=== PATIENT | male | born 1965 | race African-American/Black ===

== ENCOUNTER 2021-02-21 18:02 | Emergency (ER) | payer BC, SELFPAY ==
[2021-02-21 20:37] LABS: Absolute Lymphocytes (CBC) 1.2 K/uL (0.7-4.9); Basophils % 0.8 % (0-1.3); Hematocrit 32.7 % (39.6-49.0); MPV 7.7 fL (7.6-11.3); RBC Red Blood Cell Count 4.61 M/uL (4.33-5.43)
[2021-02-21 21:01] LABS: Albumin 3.2 g/dL (3.4-5.0); Bilirubin Direct 0.1 mg/dL (0-0.2); Bilirubin Total 0.4 mg/dL (0.2-1.0); Potassium 3.8 mmol/L (3.5-5.1); Protein, Total 7.7 g/dL (6.4-8.2)
--- NOTE | 2021-02-21 22:47 | EDPHYS ---
Physician Documentation [facility] Name: Edwin Young Age: 55 yrs Sex: Male : 1965 Arrival Date: 02/21/2021 Time: 18:20 Bed 23 Private MD: ED Physician Rogelio Messina HPI: 02/22 06:27 This 55 yrs old Black Male presents to ER via Ambulatory with complaints of Diarrhea, tw4 Bloody Stools. 06:27 The patient presents to the emergency department with diarrhea, abdominal pain. Onset: tw4 The symptoms/episode began/occurred 2 week(s) ago. Possible causes: unknown. The symptoms are aggravated by nothing. The symptoms are alleviated by nothing. Severity of symptoms: At their worst the symptoms were moderate in the emergency department the symptoms have improved. The patient has not experienced similar symptoms in the past. Historical: - Allergies: 02/21 18:56 No Known Allergies; bp - Home Meds: 18:56 Lasix Oral [Active]; Allopurinol Oral [Active]; carvedilol oral oral [Active]; bp - PMHx: 18:56 Hypertension; Gout; bp - Immunization history:: Adult Immunizations up to date. - Social history:: Smoking status: Patient denies any tobacco usage or history of. ROS: 02/22 06:27 Constitutional: Negative for fever, chills, and weight loss, Eyes: Negative for injury, tw4 pain, redness, and discharge, Cardiovascular: Negative for chest pain, palpitations, and edema, Respiratory: Negative for shortness of breath, cough, wheezing, and pleuritic chest pain, Abdomen/GI: Negative for abdominal pain, nausea, vomiting, diarrhea, and constipation, Back: Negative for injury and pain, MS/Extremity: Negative for injury and deformity, Skin: Negative for injury, rash, and discoloration, Neuro: Negative for headache, weakness, numbness, tingling, and seizure. Exam: 06:27 Constitutional: This is a well developed, well nourished patient who is awake, alert, tw4 and in no acute distress. Head/Face: Normocephalic, atraumatic. Chest/axilla: Normal chest wall appearance and motion. Nontender with no deformity. No lesions are appreciated. Cardiovascular: Regular rate and rhythm with a normal S1 and S2. No gallops, murmurs, or rubs. Normal PMI, no JVD. No pulse deficits. Respiratory: Lungs have equal breath sounds bilaterally, clear to auscultation and percussion. No rales, rhonchi or wheezes noted. No increased work of breathing, no retractions or nasal flaring. Abdomen/GI: Soft, non-tender, with normal bowel sounds. No distension or tympany. No guarding or rebound. No evidence of tenderness throughout. Back: No spinal tenderness. No costovertebral tenderness. Full range of motion. MS/ Extremity: Pulses equal, no cyanosis. Neurovascular intact. Full, normal range of motion. Neuro: Awake and alert, GCS 15, oriented to person, place, time, and situation. Cranial nerves II-XII grossly intact. Motor strength 5/5 in all extremities. Sensory grossly intact. Cerebellar exam normal. Normal gait. Vital Signs: 02/21 18:54 BP 147 / 94; Pulse 79; Resp 17; Temp 96.9; Pulse Ox 97% ; Weight 113.4 kg; Height 6 ft. bp 2 in. (187.96 cm); 20:43 BP 148 / 98; Pulse 90; Resp 16 S; Pulse Ox 97% ; bb 23:21 BP 161 / 109; Pulse 95; Resp 16 S; Pulse Ox 98% ; bb 18:54 Body Mass Index 32.10 (113.40 kg, 187.96 cm) bp MDM: 22:46 Patient medically screened. tw4 02/22 06:27 Differential diagnosis: Nonspecific abd pain, gastritis, cholecystitis. Data reviewed: tw4 vital signs, nurses notes. Data interpreted: Pulse oximetry: Interpretation: normal. Counseling: I had a detailed discussion with the patient and/or guardian regarding: the historical points, exam findings, and any diagnostic results supporting the discharge/admit diagnosis. Special discussion: I discussed with the patient/guardian in detail that at this point there is no indication for admission to the hospital. It is understood, however, that if the symptoms persist or worsen the patient needs to return immediately for re-evaluation. 02/21 20:07 Order name: Basic Metabolic Panel; Complete Time: 21:27 tw4 02/21 21:27 Interpretation: Normal except: GLUC 107; CRE 1.54; GFR 57. tw4 02/21 20:07 Order name: CBC with Diff; Complete Time: 21:27 tw4 02/21 21:28 Interpretation: Normal except: HGB 10.3; HCT 32.7; MCV 71.0; MCH 22.4; MCHC 31.5; PLT tw4 426; RDW 17.1. 02/21 20:07 Order name: Hepatic Function; Complete Time: 21:27 4 02/21 21:28 Interpretation: Normal except: ALB 3.2; A/G 0.7; GLOB 4.5. 02/21 20:07 Order name: Lipase; Complete Time: 21:27 4 02/21 21:28 Interpretation: Normal except: LIP 65. 02/21 20:07 Order name: IV Saline Lock; Complete Time: 20:25 4 02/21 21:28 Order name: Abdomen 1 View XRAY 02/21 20:07 Order name: Labs collected and sent; Complete Time: 20:25 tw4 Administered Medications: No medications were administered Disposition: 02/21/21 22:46 Discharged to Home. Impression: Constipation, unspecified, Abdominal tenderness. - Condition is Stable. - Discharge Instructions: Constipation, Adult, Abdominal Pain, Adult, [id number]-Bucb. - Prescriptions for Bentyl 20 mg Oral Tablet - take 1 tablet by ORAL route every 6 hours As needed; 20 tablet. Colace 100 mg Oral Tablet - take 1 tablet by ORAL route every 12 hours; 14 tablet. Miralax 17 gram/dose Oral - take 1 packet by ORAL route once daily dilute powder in 8 ounces of water or juice; 1 packet. - Medication Reconciliation Form, Thank You Letter, Antibiotic Education, Prescription Opioid Use form. - Follow up: Private Physician; When: Upon discharge from the Emergency Department; Reason: Recheck today's complaints, Continuance of care, Re-evaluation by your physician. - Problem is new. - Symptoms have improved. Signatures: Dispatcher [employer] EDKayleigh Carlos RN RN Henry Williamson RN RN Rogelio Ward MD MD tw4 Corrections: (The following items were deleted from the chart) 02/21 22:47 22:46 02/21/2021 22:46 Discharged to Home. Impression: Constipation, unspecified. tw4 Condition is Stable. Forms are Medication Reconciliation Form, Thank You Letter, Antibiotic Education, Prescription Opioid Use. Follow up: Private Physician; When: Upon discharge from the Emergency Department; Reason: Recheck today's complaints, Continuance of care, Re-evaluation by your physician. Problem is new. Symptoms have improved. tw4 23:21 22:47 02/21/2021 22:46 Discharged to Home. Impression: Constipation, unspecified; bb Abdominal tenderness. Condition is Stable. Discharge Instructions: Constipation, Adult. Prescriptions for Bentyl 20 mg Oral Tablet - take 1 tablet by ORAL route every 6 hours As needed; 20 tablet, Colace 100 mg Oral Tablet - take 1 tablet by ORAL route every 12 hours; 14 tablet, Miralax 17 gram/dose Oral - take 1 packet by ORAL route once daily dilute powder in 8 ounces of water or juice; 1 packet. and Forms are Medication Reconciliation Form, Thank You Letter, Antibiotic Education, Prescription Opioid Use. Follow up: Private Physician; When: Upon discharge from the Emergency Department; Reason: Recheck today's complaints, Continuance of care, Re-evaluation by your physician. Problem is new. Symptoms have improved. tw4
--- NOTE | 2021-02-21 22:47 | ER ---
Nurse's Notes [facility] Name: Edwin Young Age: 55 yrs Sex: Male : 1965 Arrival Date: 02/21/2021 Time: 18:20 Bed 23 Private MD: Diagnosis: Constipation, unspecified;Abdominal tenderness Presentation: 02/21 18:54 Chief complaint: Patient states: 3 WEEKS CONSTIPATION AND DIARRHEA, NOW WITH RECTAL bp BLEEDING. Coronavirus screen: At this time, the client does not indicate any symptoms associated with coronavirus-19. Ebola Screen: No symptoms or risks identified at this time. Initial Sepsis Screen: Does the patient meet any 2 criteria? No. Patient's initial sepsis screen is negative. Does the patient have a suspected source of infection? No. Patient's initial sepsis screen is negative. Risk Assessment: Do you want to hurt yourself or someone else? Patient reports no desire to harm self or others. Onset of symptoms is unknown. 18:54 Method Of Arrival: Ambulatory bp 18:54 Acuity: JASWINDER 3 bp Triage Assessment: 18:56 General: Appears in no apparent distress. uncomfortable, Behavior is calm, cooperative, bp appropriate for age. Pain: Denies pain. EENT: No deficits noted. Neuro: No deficits noted. Cardiovascular: No deficits noted. Respiratory: No deficits noted. GI: Reports constipation, diarrhea, bloody stool. : No signs and/or symptoms were reported regarding the genitourinary system. Derm: No deficits noted. Musculoskeletal: No deficits noted. Historical: - Allergies: 18:56 No Known Allergies; bp - Home Meds: 18:56 Lasix Oral [Active]; Allopurinol Oral [Active]; carvedilol oral oral [Active]; bp - PMHx: 18:56 Hypertension; Gout; bp - Immunization history:: Adult Immunizations up to date. - Social history:: Smoking status: Patient denies any tobacco usage or history of. Screenin:40 Abuse screen: Denies threats or abuse. Nutritional screening: No deficits noted. bb Tuberculosis screening: No symptoms or risk factors identified. Fall Risk None identified. Assessment: 19:40 General: Appears in no apparent distress. Behavior is calm, cooperative. Neuro: Level bb of Consciousness is awake, alert, obeys commands, Oriented to person, place, time, situation. Cardiovascular: Heart tones S1 S2 present Capillary refill < 3 seconds Patient's skin is warm and dry. Respiratory: Respiratory effort is even, unlabored, Respiratory pattern is regular. GI: Abdomen is round Bowel sounds present X 4 quads. Abd is soft and non tender X 4 quads. Reports rectal bleeding. Derm: Skin is dry, Skin is normal, Skin temperature is warm. Musculoskeletal: Circulation, motion, and sensation intact. 20:43 Reassessment: Patient is alert, oriented x 3, equal unlabored respirations, skin bb warm/dry/pink. awaiting diagnostic results. 21:48 Reassessment: Patient is alert, oriented x 3, equal unlabored respirations, skin bb warm/dry/pink. pt resting quietly, IV site intact, no erythema or edema noted. 23:19 Reassessment: Patient is alert, oriented x 3, equal unlabored respirations, skin bb warm/dry/pink. pt verbalized understanding of and agrees to plan of care discharge instructions given pt ambulated with steady gait to exit pt has appt with Dr Garnica March 03. Vital Signs: 18:54 BP 147 / 94; Pulse 79; Resp 17; Temp 96.9; Pulse Ox 97% ; Weight 113.4 kg; Height 6 ft. bp 2 in. (187.96 cm); 20:43 BP 148 / 98; Pulse 90; Resp 16 S; Pulse Ox 97% ; bb 23:21 BP 161 / 109; Pulse 95; Resp 16 S; Pulse Ox 98% ; bb 18:54 Body Mass Index 32.10 (113.40 kg, 187.96 cm) bp ED Course: 18:20 Patient arrived in ED. ds1 18:55 Triage completed. bp 18:56 Arm band placed on. bp 19:32 Rogelio Messina MD is Attending Physician. tw4 19:40 Patient has correct armband on for positive identification. Call light in reach. Adult bb w/ patient. 20:10 Kayleigh Bautista, RN is Primary Nurse. bb 20:15 Initial lab(s) drawn, by me, sent to lab. Inserted saline lock: 20 gauge in right bb antecubital area, using aseptic technique. Blood collected. 22:17 Abdomen 1 View XRAY In Process Unspecified. EDMS 23:20 No provider procedures requiring assistance completed. IV discontinued, intact, bb bleeding controlled, No redness/swelling at site. Pressure dressing applied. Administered Medications: No medications were administered Outcome: 22:46 Discharge ordered by . [email or web address] 23:20 Discharged to home ambulatory. alvin 23:20 Condition: stable 23:20 Discharge instructions given to patient, Instructed on discharge instructions, follow up and referral plans. medication usage, Demonstrated understanding of instructions, follow-up care, medications, Prescriptions given X 3. 23:21 Patient left the ED. alvin Signatures: Dispatcher [employer] [facility] Amanda Toledo ds1 Kayleigh Bautista, RN RN Henry Williamson, RN RN Rogelio Ward MD MD tw4 Corrections: (The following items were deleted from the chart) 20:43 19:40 GI: Abdomen is round Reports rectal bleeding, alvin esquivel
[2021-02-21 23:27] VITALS: TEMP 96.9; O2SAT 97
[2021-02-21 23:29] VITALS: BP 148/98
--- NOTE | 2021-02-22 07:43 | RAD REPORT ---
EXAM DESCRIPTION: RAD - Abdomen Single View - 02/21/2021 10:23 pm CLINICAL HISTORY: ABD PAIN COMPARISON: ABDOMINAL EXAM COMPLETE dated 04/05/2013 FINDINGS: Large amount of stool is present filling the colon from cecum to proximal sigmoid colon. N o abnormal rectal stool volume. No small bowel dilatation. No obstruction, free air or pneumatosis. N o suspicious calcifications. No significant bony findings IMPRESSION: Constipation pattern with a large amount of stool filling the colon from cecum to proxim al sigmoid colon.
== END 2021-02-21 23:21 | disposition home or self-care (01) ==
LOC: ER 18:02
DX: K59.00 Constipation, unspecified (principal); I10 Essential (primary) hypertension
CPT/HCPCS: 36415; 74018; 80048; 80076; 83690; 85025; 99284

== ENCOUNTER 2021-05-28 07:29 | Day surgery (SDC) | payer BC ==
[2021-05-28] MEDS ORDERED: NA CHLORIDE 0.9% 250 ML ONE (08:21)
[2021-05-28] MEDS ORDERED: FUROSEMIDE 40 MG/4 ML VIAL ONE (11:35)
[2021-05-28] MEDS ORDERED: NA CHLORIDE 0.9% 50 ML ONE (11:35)
[2021-05-28 16:57] LABS: Hematocrit 29.8 % (39.6-49.0)
[2021-05-28 17:06] VITALS: TEMP 98; BMI 28.2
[2021-05-28 17:41] VITALS: BP 106/60; O2SAT 99
== END 2021-05-28 17:42 | disposition home or self-care (01) ==
LOC: DS 07:29
PROVIDERS: ATTEND Internal Medicine Gastroenterology
DX: D64.9 Anemia, unspecified (principal); C20 Malignant neoplasm of rectum; K92.1 Melena
CPT/HCPCS: 36415; 86900; 86850; 82565; 86901; 85018; 85014; 36430; J1940; P9016 ×2; J7050

== ENCOUNTER 2021-10-19 14:08 | Inpatient (IN) | payer BC, OTHER, SELFPAY ==
--- OUTSIDE RECORDS SUMMARY | 2021-10-19 14:13 | XMS REPORT | Continuity of Care Document ---
:1965 Author Organization [facility] t Address [address] [place] [address] Care Team Providers Name Role Phone Calderon, L Attending Clinician Unavailable JONATHON Attending Clinician Unavailable LAILA Attending Clinician Unavailable MD NOE Attending Clinician Unavailable LORETO Attending Clinician Unavailable MD LIBERTAD TAN Attending Clinician Unavailable NADYA Attending Clinician Unavailable MARIKA Admitting Clinician Unavailable BIBIANA Admitting Clinician Unavailable NOE Admitting Clinician Unavailable MD NOE Admitting Clinician Unavailable LORETO Admitting Clinician Unavailable MD LORETO Admitting Clinician Unavailable Payers Payer Name Policy Type Policy Number Effective Date Expiration Date S ource Problems This patient has no known problems. Allergies, Adverse Reactions, Alerts Allergy Allergy Status Severity Reaction(s) Onset Inactive Treating Comm ents Source Name Type Date Date Clinician No Known DA Active U 2020-10 [facility] Allergie 11-08 [facility] 00:00: [address] NO KNOWN Drug Active [facility] ALLERGIE Class ity of [facility] Medications This patient has no known medications. Procedures This patient has no known procedures. Encounters Start End Encounter Admission Attending Care Care Encounter Source Date/Time Date/Time Type Type Clinicians Facility Department ID 2021-09-20 Inpatient EL Tarsha Mancera [facility] RTX [id number] [facility] 15:[id number] [facility] 2021-09-20 Inpatient EL Tarsha Mancera [facility] [id number] [facility] 15:[facility]:[address] [facility] 2021-09-15 Inpatient EL Tarsha Mancera [facility] RTX [id number] [facility]:00 [facility] 2021-10-18 2021-10-18 Outpatient EL Oh, Tarsha [facility] RTX [id number] [facility] 11:23:00 11:23:[id number] [facility] 2021-09-02 2021-09-14 Outpatient EL Oh, Tarsha [facility] RTX [id number] 11-04 [facility] 10:13:00 00:00:[id number] [facility] 2021-09-08 2021-09-08 Outpatient EL Oh, Tarsha [facility] [id number] [facility] 08:46:00 08:46:[address] [facility] 2021-09-08 2021-09-08 Outpatient EL Oh, Tarsha [facility] SUGL [id number] 11-04 [facility] 08:46:00 08:46:[id number] [facility] 2021-09-02 2021-09-02 Outpatient EL Oh, Tarsha [facility] [id number] [facility] 10:13:00 10:13:[address] [facility] 2021-08-06 2021-08-06 Outpatient DERRICK HOLT [facility] [id number] [place] 00:00:00 00:00:00 [facility] 2021-08-04 2021-08-04 Outpatient DERRICK HOLT [facility] [id number] [place] 00:00:00 00:00:[address] 2021-08-01 2021-08-03 Outpatient SUNSHINENELL, [facility] [id number] [place] 00:00:00 00:00:00 JENNY [address] 2021-07-23 2021-07-23 Outpatient DERRICK HOLT [facility] [id number] [place] 00:00:00 00:00:[address] 2021-07-23 2021-07-23 Outpatient DERRICK HOLT [facility] [id number] [place] 00:00:00 00:00:[address] 2021-07-21 2021-07-21 Outpatient DERRICK HOLT [facility] [id number] [place] 00:00:00 00:00:[address] 2021-07-21 2021-07-21 Outpatient DERRICK HOLT [facility] [id number] [place] 00:00:00 00:00:00 [facility] [facility] 2021-06-28 2021-07-06 Inpatient NIKA DANGELO [facility] [id number] [place] 00:00:00 00:00:00 942 [facility] 2021-06-02 2021-06-02 Outpatient JONATHAN COVINGTON [facility] [id number] [place] 00:00:00 00:00:00 065 [facility] 2021-04-26 2021-04-26 Emergency X [facility] ERT [id number] [facility] 16:39:00 16:39:00 [facility] Results Test Description Test Time Test Comments Results Result [facility] e Comments - PET/CT TUMOR 2021-09-10 MIDTH 13:41:00 [facility] : 1965 Sex: M Patient Name: GENO PRASAD Unit No: [id number] EXAMS: CPT CODE: [id number] PET/CT TUMOR [facility] MIDTH [id number] EXAM: PET/CT scan INDICATION: MALIGNANT NEOPLASM OF RECTUM COMPARISON: None at this time LOCATION: [facility] TECHNIQUE: Approximately 60 minutes following the intravenous administration of 11.49 mCi F-18 FDG, a PET scan was obtained from the skull vertex to the mid thigh. Axial noncontrast nondiagnostic CT images were also obtained for anatomic localization. Glucose level at radiotracer administration was 86 mg/dL. FINDINGS: There is a focal area of bowel wall thickening involving the rectum, demonstrating hypermetabolic activity. This measures about 3.5 cm in diameter. The maximum SUV is 6.5. There is increased tracer activity involving the right aspect of the L5 vertebra. The maximum SUV is 2.2. There are degenerative changes in this region on the corresponding CT scan. There are small right axillary lymph nodes, all measuring less than a centimeter in diameter, which demonstrate minimal hypermetabolic activity. The maximum SUV is 1.4. There is diffuse increased tracer activity involving the soft tissues adjacent to the right humeral head, consistent with benign musculoskeletal activity. No other areas of abnormal hypermetabolic activity are identified. No lymphadenopathy by size criteria is identified. The heart, kidneys, renal collecting systems and bladder demonstrate normal distribution of tracer activity. Impression: There is a focal area of bowel wall thickening involving the rectum, demonstrating hypermetabolic activity, with a maximum SUV of 6.5. This measures about 3.5 cm in diameter. This finding is consistent with the given history of malignant neoplasm of rectum. There is increased tracer activity involving the right aspect of the L5 vertebra, with a maximum SUV of 2.2. There are degenerative changes in this region on the corresponding CT scan. This appears to be most likely secondary to degenerative changes, with metastatic disease appearing less likely. Follow-up MRI of the lumbar spine without and with contrast is recommended. [facility] NAME: GENO PRASAD [address] [address] PHYS: [place] [address] : 1965 AGE: 56 SEX: M LOC: DayronZNUC PHONE #: [phone] EXAM DATE: 09/08/2021 STATUS: DEP CLI FAX #: [phone] RADIOLOGY NO: PAGE 1 Signed Report (CONTINUED) Patient Name: GENO PRASAD Unit No: [id number] EXAMS: CPT CODE: [id number] PET/CT TUMOR SK MIDTH 17085 <Continued> There are small lymph nodes in the right axilla, measuring less than a centimeter in mean diameter each, demonstrating minimal hypermetabolic activity, with a maximum SUV of 1.4. These appear to most likely represent benign reactive lymph nodes. Otherwise unremarkable PET/CT scan. at 1341 Reported and signed by: Beau Marr MD CC: Tarsha Mancera MD Technologist: Linnea Vasquez RT(N) Transcrpt Date/Tm/Trnsp: 09/10/2021 (1341) t.SDR.PMT Orig Print D/T: S: 09/10/2021 (8550) [facility] NAME: GENO PRASAD [id number] [facility] [address] PHYS: [place] [address] : 1965 AGE: 56 SEX: M LOC: [facility] PHONE #: [phone] EXAM DATE: 09/08/2021 STATUS: DEP CLI FAX #: [phone] RADIOLOGY NO: PAGE 2 Signed Report GLUCOSE 2021-09-08 09:44:00 Test Item Value Reference Range Interpretation Comme nts GLUCOSE (test code = GLU) 86 MG/DL 79-105 N SARS-CoV-2 (COVID-19) RNA [Presence] in Respiratory specimen by YVROSE with probe [id number] 18:54:41 Test Item Value Reference Range Interpretation Comments SARS-CoV-2 (COVID-19) RNA Not detected Not-Detected [Presence] in Respiratory specimen by YVROSE with probe detection (test code = 77462-4) Whether patient is employed in a healthcare setting (test code = 86725-2) Whether the patient has symptoms related to condition of interest (test code = 97999-4) Patient was hospitalized because of this condition (test code = 70478-5) Whether the patient was admitted to intensive care unit (ICU) for condition of interest (test code = 70684-5) Whether patient resides in a congregate care setting (test code = 61674-4) status (test code = 92421-4) SARS-CoV-2 (COVID-19) RNA [Presence] in Respiratory specimen by YVROSE with probe [id number] 16:30:19 Test Item Value Reference Range Interpretation Comments SARS-CoV-2 (COVID-19) RNA Not detected Not-Detected [Presence] in Respiratory specimen by YVROSE with probe detection (test code = 78654-3) Whether patient is employed in a healthcare setting (test code = 55031-3) Whether the patient has symptoms related to condition of interest (test code = 49569-8) Patient was hospitalized because of this condition (test code = 93353-4) Whether the patient was admitted to intensive care unit (ICU) for condition of interest (test code = 12576-6) Whether patient resides in a congregate care setting (test code = 44343-8)
[2021-10-19 15:46] LABS: Absolute Lymphocytes (CBC) 0.1 K/uL (0.7-4.9); Hematocrit 34.5 % (39.6-49.0); Lymphocytes % 2.3 % (15.3-44.8)
[2021-10-19] MEDS ORDERED: ONDANSETRON 4 MG/2 ML VIAL ONE ×2 (16:07→20:32)
[2021-10-19] MEDS ORDERED: NA CHLORIDE 0.9% 1,000 ML ONE (16:07)
[2021-10-19 16:09] LABS: Albumin 2.7 g/dL (3.4-5.0); Bilirubin Direct 0.4 mg/dL (0-0.2); Bilirubin Total 1.6 mg/dL (0.2-1.0); Protein, Total 7.6 g/dL (6.4-8.2)
[2021-10-19 16:27] LABS: SARS-COV-2 RT PCR NEGATIVE (NEGATIVE)
[2021-10-19] MEDS ORDERED: NA CHLORIDE 0.9% 100 ML ONE (16:47)
[2021-10-19] MEDS ORDERED: PIPERACIL/TAZO 3.375 GM VIAL IV ONE (16:47)
--- NOTE | 2021-10-19 16:51 | RAD REPORT ---
EXAM DESCRIPTION: CTAbdomen Pelvis W Contrast - 10/19/2021 4:26 pm CLINICAL HISTORY: chemo/radiation for colon cancer, lower abd;Abd pain COMPARISON: Abdomen Pelvis W Contrast dated 05/27/2021 TECHNIQUE: CT of the abdomen and pelvis was performed. All CT scans are performed using dose optimization technique as appropriate and may include automated exposure control or mA/KV adjustment according to patient size. FINDINGS: Lower chest: No acute abnormality. Liver: No acute abnormality or suspicious lesions. Biliary: No biliary ductal dilatation. Stomach: No significant focal abnormality. Duodenum: No significant focal abnormality. Pancreas: No significant abnormality. Spleen: No significant abnormality. Adrenal: No suspicious lesions. Kidney/ureter: No hydronephrosis. No renal calculi. Too small to characterize and/or benign appearing renal lesions are noted. Retroperitoneum: No retroperitoneal adenopathy. Vascular: No aneurysm. Bowel: Known rectal mass is again identified. The sigmoid colon is thickened. There is likely a perfo ration of the sigmoid with reactive thickening of the distal small bowel. Multiple air-fluid levels a re present.. Normal appendix. Peritoneum: Free air is present. A small though not well-defined fluid collection is present within t he ileocolic mesentery. Umbilical hernia containing fluid and free air. Bladder: Grossly unremarkable. Reproductive: No adnexal masses. Bones: No acute fracture. Other: n/a IMPRESSION: Free air present consistent with perforation of a hollow viscus. Known rectal mass again identified with the suspected site of perforation at the mid to distal sigmoid, possibly as a result of obstruction due to the constricting rectal mass. No drainable abscess at this time. Recommend consuelo gical consultation. Called ED at 1645 on 10/19/20. Awaiting return call from ED physician.
[2021-10-19] MEDS ORDERED: MORPHINE 4 MG/ML SYR ONE (17:22)
--- NOTE | 2021-10-19 17:26 | ER ---
Nurse's Notes [facility] Name: Edwin Young Age: 56 yrs Sex: Male : 1965 Arrival Date: 10/19/2021 Time: 14:12 Bed 25 Private MD: Diagnosis: Perforation of intestine (nontraumatic) Presentation: 10/19 14:32 Chief complaint: Patient states: Lower abd paiin for 4 days. + dysuria. On chemo and ll1 radiation for colon CA. Coronavirus screen: Vaccine status: Patient reports receiving the 2nd dose of the covid vaccine. Client denies travel out of the [place] in the last 14 days. At this time, the client does not indicate any symptoms associated with coronavirus-19. Ebola Screen: Patient denies travel to an Ebola-affected area in the 21 days before illness onset. Initial Sepsis Screen: Does the patient meet any 2 criteria? No. Patient's initial sepsis screen is negative. Does the patient have a suspected source of infection? Yes: Acute abdominal pain. Risk Assessment: Do you want to hurt yourself or someone else? Patient reports no desire to harm self or others. Onset of symptoms was October 16, 2021. 14:32 Method Of Arrival: Wheelchair ll1 14:32 Acuity: JASWINDER 3 ll1 Triage Assessment: 10/22 02:20 General: Appears in no apparent distress. mr2 Historical: - Allergies: 10/19 14:31 No Known Allergies; ll1 - PMHx: 14:31 Gout; Hypertension; ll1 - Immunization history:: Client reports having NOT received the Covid vaccine. - Social history:: Smoking status: Patient denies any tobacco usage or history of. - Family history:: not pertinent. - Hospitalizations: : No recent hospitalization is reported. Screenin:34 Abuse screen: Denies threats or abuse. Denies injuries from another. Nutritional ww screening: No deficits noted. Tuberculosis screening: No symptoms or risk factors identified. Fall Risk None identified. Assessment: 16:34 General: Appears in no apparent distress. comfortable, Behavior is calm, cooperative. ww Pain: Complains of pain in right lower quadrant and left lower quadrant Pain currently is 10 out of 10 on a pain scale. Noted to be guarding, Also complains of sleeplessness. Neuro: No deficits noted. Level of Consciousness is awake, alert, obeys commands, Oriented to person, place, time, situation, Appropriate for age. Cardiovascular: No deficits noted. Denies chest pain, shortness of breath. Respiratory: No deficits noted. Reports Respiratory: Airway is patent Respiratory effort is even, unlabored. GI: Bowel sounds present X 4 quads. Abdomen is tender to palpation in right lower quadrant and left lower quadrant Reports bloating, cramping, nausea, Patient currently denies vomiting. : No deficits noted. No signs and/or symptoms were reported regarding the genitourinary system. EENT: No deficits noted. No signs and/or symptoms were reported regarding the EENT system. Derm: No deficits noted. No signs and/or symptoms reported regarding the dermatologic system. Musculoskeletal: No deficits noted. No signs and/or symptoms reported regarding the musculoskeletal system. Vital Signs: 14:32 BP 96 / 63; Pulse 79; Resp 17; Temp 99.2; Pulse Ox 99% ; Weight 95.25 kg; Height 6 ft. ll1 2 in. (187.96 cm); Pain 8/10; 14:32 Body Mass Index 26.96 (95.25 kg, 187.96 cm) ll1 ED Course: 14:12 Patient arrived in ED. mr 14:31 Arm band placed on Patient placed in an exam room, on a stretcher. ll1 14:34 Triage completed. ll1 14:45 Anila Barry, RN is Primary Nurse. ww 14:50 John Crisostomo MD is Attending Physician. rn 16:26 CT Abd/Pelvis - IV Contrast Only In Process Unspecified. EDMS 16:34 Patient has correct armband on for positive identification. Bed in low position. Call ww light in reach. 16:34 No provider procedures requiring assistance completed. Inserted saline lock: 18 gauge ww in left antecubital area, using aseptic technique. Blood collected. 17:23 Jayy Fernández MD is Hospitalizing Provider. rn 17:35 Cady Delaney MD is Hospitalizing Provider. rn 10/22 02:19 Patient admitted, IV remains in place. mr2 Administered Medications: 10/19 16:40 Drug: Zofran (Ondansetron) 4 mg Route: IVP; Site: left antecubital; ww 16:40 Drug: NS 0.9% 1000 ml Route: IV; Rate: 1000 ml; Site: left antecubital; ww 17:19 Drug: Zosyn (piperacillin-tazobactam) 3.375 grams Route: IVPB; Infused Over: 60 mins; ww Site: left antecubital; 17:20 Drug: morphine 4 mg Route: IVP; Site: left antecubital; ww Outcome: 17:25 Decision to Hospitalize by Provider. rn 10/22 02:19 Admitted to ICU accompanied by nurse. mr2 Condition: stable Instructed on the need for admit, Demonstrated understanding of instructions. 02:20 Patient left the ED. mr2 Signatures: Dispatcher [employer] EDTN Brooke Green mr John Crisostomo MD MD rn Lewis, Lynsay, RN RN ll1 Devante Ashby RN RN mr2 Anila Barry RN RN ww Corrections: (The following items were deleted from the chart) 10/19 14:34 14:32 Pulse 79bpm; Resp 17bpm; Pulse Ox 99%; Temp 99.2F; 95.25 kg; Height 6 ft. 2 in.; ll1 BMI: 26.9; Pain 8/10; ll1
--- NOTE | 2021-10-19 17:26 | EDPHYS ---
Physician Documentation [facility] Name: Edwin Young Age: 56 yrs Sex: Male : 1965 Arrival Date: 10/19/2021 Time: 14:12 Bed 25 Private MD: ED Physician John Crisostomo HPI: 10/19 15:44 This 56 yrs old Black Male presents to ER via Wheelchair with complaints of Abdominal rn Pain. 15:44 The patient presents with abdominal pain in the lower abdomen. Onset: The rn symptoms/episode began/occurred 4 day(s) ago. The symptoms do not radiate. Associated signs and symptoms: Pertinent positives: diarrhea, dysuria, Pertinent negatives: fever. The symptoms are described as sharp, stabbing. Modifying factors: The symptoms are alleviated by nothing, the symptoms are aggravated by movement, touching the area. Severity of pain: At its worst the pain was moderate in the emergency department the pain is unchanged. The patient has not experienced similar symptoms in the past. The patient has not recently seen a physician. Patient reports has colon cancer, undergoing multiple rounds of chemo and radiation, reports 4 days of lower abdominal pain around the site of radiation, also reports mild dysuria. No fever. No blood in stool.. Historical: - Allergies: 14:31 No Known Allergies; ll1 - PMHx: 14:31 Gout; Hypertension; ll1 - Immunization history:: Client reports having NOT received the Covid vaccine. - Social history:: Smoking status: Patient denies any tobacco usage or history of. - Family history:: not pertinent. - Hospitalizations: : No recent hospitalization is reported. ROS: 15:44 Constitutional: Negative for fever, chills, and weight loss, Eyes: Negative for injury, rn pain, redness, and discharge, Neck: Negative for injury, pain, and swelling, Cardiovascular: Negative for chest pain, palpitations, and edema, Respiratory: Negative for shortness of breath, cough, wheezing, and pleuritic chest pain, Abdomen/GI: Positive for abdominal pain and diarrhea, positive for nausea and vomiting Back: Negative for injury and pain, : Positive for dysuria, negative for hematuria MS/Extremity: Negative for injury and deformity, Skin: Negative for injury, rash, and discoloration, Neuro: Negative for headache, weakness, numbness, tingling, and seizure. Exam: 15:44 Constitutional: This is a well developed, well nourished patient who is awake, alert, rn and in no acute distress. Emesis bag at his side Head/Face: Normocephalic, atraumatic. Eyes: Periorbital areas with no swelling, redness, or edema. ENT: Dry mucous membranes Cardiovascular: Regular rate and rhythm. No pulse deficits. Respiratory: No increased work of breathing, no retractions or nasal flaring. Abdomen/GI: Soft, mild tenderness suprapubic/right lower quadrant/left lower quadrant. Periumbilical hernia without skin changes or focal tenderness and is partially reducible Skin: Warm, dry MS/ Extremity: Pulses equal, no cyanosis Neuro: GCS 15, 4/5 strength throughout. Vital Signs: 14:32 BP 96 / 63; Pulse 79; Resp 17; Temp 99.2; Pulse Ox 99% ; Weight 95.25 kg; Height 6 ft. ll1 2 in. (187.96 cm); Pain 8/10; 14:32 Body Mass Index 26.96 (95.25 kg, 187.96 cm) ll1 MDM: 14:50 Patient medically screened. rn 16:58 ED course: CT shows mid to distal sigmoid perforation likely related to rectal mass and rn possible obstruction. Consulted with Dr. Fernández who is going to come and evaluate patient. 17:20 Differential diagnosis: bowel obstruction, non-specific abd pain, radiation colitis, rn proctitis, bowel obstruction, perforation. Data reviewed: vital signs, nurses notes, lab test result(s), radiologic studies, CT scan, and as a result, I will admit patient. Counseling: I had a detailed discussion with the patient and/or guardian regarding: the historical points, exam findings, and any diagnostic results supporting the discharge/admit diagnosis, lab results, radiology results, the need for further work-up and treatment in the hospital. Response to treatment: the patient's symptoms have mildly improved after treatment, and as a result, I will admit patient. Admission orders: after a detailed discussion of the patient's condition and case, the admit orders are written by me. 17:36 ED course: Dr. Fernández wants patient admitted to hospitalist service, Dr. Gresham no rn longer in hospital, requests admission be given to Dr. Delaney. Will call for admission at 1800.. 18:16 ED course: Called Dr. Delaney, no answer, left message, will try again shortly.. rn 18:20 ED course: Dr. Delaney called back, accepts patient for admission.. rn 10/19 15:00 Order name: Basic Metabolic Panel; Complete Time: 16:11 rn 10/19 15:00 Order name: CBC with Diff; Complete Time: 18:11 rn 10/19 15:00 Order name: Hepatic Function; Complete Time: 16:11 rn 10/19 15:00 Order name: Lipase; Complete Time: 16:11 rn 10/19 15:00 Order name: Procalcitonin; Complete Time: 16:32 rn 10/19 15:00 Order name: Blood Culture Adult (2) rn 10/19 15:02 Order name: COVID-19/FLU A+B (Document "Date of Onset" if Symptomatic); Complete Time: rn 16:32 10/19 17:52 Order name: CBC Smear Scan; Complete Time: 18:11 EDMS 10/19 18:11 Order name: Lactate rn 10/19 18:12 Order name: Lactate; Complete Time: 07:39 EDMS 10/19 19:01 Order name: Comprehensive Metabolic Panel EDMS 10/19 19:01 Order name: Comprehensive Metabolic Panel; Complete Time: 07:39 EDMS 10/19 21:31 Order name: Glucose, Ancillary Testing; Complete Time: 07:39 EDMS 10/20 03:03 Order name: CBC with Automated Diff; Complete Time: 07:39 EDMS 10/20 03:13 Order name: Phosphorus; Complete Time: 07:39 EDMS 10/20 03:13 Order name: Magnesium; Complete Time: 07:39 EDMS 10/20 04:55 Order name: Manual Differential; Complete Time: 07:39 EDMS 10/20 08:13 Order name: Glucose, Ancillary Testing; Complete Time: 08:37 EDMS 10/20 12:47 Order name: Glucose, Ancillary Testing EDMS 10/20 21:59 Order name: Glucose, Ancillary Testing EDMS 10/21 03:29 Order name: Lactate EDMS 10/21 03:49 Order name: CBC with Automated Diff EDMS 10/21 04:48 Order name: Comprehensive Metabolic Panel EDMS 10/21 04:48 Order name: Phosphorus EDMS 10/21 04:48 Order name: Magnesium EDMS 10/21 04:48 Order name: Transferrin Sat/Iron Binding EDMS 10/21 04:48 Order name: Ferritin EDMS 10/21 04:48 Order name: Vitamin B12 Level EDMS 10/21 08:19 Order name: Glucose, Ancillary Testing EDMS 10/21 11:43 Order name: Glucose, Ancillary Testing EDMS 10/19 15:00 Order name: IV Saline Lock; Complete Time: 16:41 rn 10/19 15:00 Order name: Labs collected and sent; Complete Time: 16:41 rn 10/19 15:00 Order name: CT Abd/Pelvis - IV Contrast Only; Complete Time: 16:52 rn 10/19 16:53 Order name: NPO; Complete Time: 17:19 rn 10/19 17:57 Order name: NPO; Complete Time: 18:07 EDMS 10/20 08:13 Order name: CT; Complete Time: 08:37 EDMS 10/21 12:19 Order name: RAD EDMS 10/21 17:27 Order name: Glucose, Ancillary Testing EDMS Administered Medications: 16:40 Drug: Zofran (Ondansetron) 4 mg Route: IVP; Site: left antecubital; ww 16:40 Drug: NS 0.9% 1000 ml Route: IV; Rate: 1000 ml; Site: left antecubital; ww 17:19 Drug: Zosyn (piperacillin-tazobactam) 3.375 grams Route: IVPB; Infused Over: 60 mins; ww Site: left antecubital; 17:20 Drug: morphine 4 mg Route: IVP; Site: left antecubital; ww Disposition Summary: 10/19/21 17:25 Hospitalization Ordered Hospitalization Status: Inpatient Admission rn Condition: Stable rn Problem: new rn Symptoms: have improved rn Bed/Room Type: Standard rn Provider: Cady Delaney(10/19/21 17:35) rn Location: Intensive Care Unit(10/21/21 20:46) cg Room Assignment: 7-(10/21/21 20:46) cg Diagnosis - Perforation of intestine (nontraumatic) rn Forms: - Medication Reconciliation Form rn - SBAR form rn Signatures: Dispatcher [employer] EDKlarissa Oliver RN RN mw Nieto, Roman, MD MD rn Garcia, Cindy, RN RN cg Jennifer Gan RN RN [facility] Anila Barry RN RN ww Corrections: (The following items were deleted from the chart) 17:35 17:25 Jayy Fernández rn rn 20:15 17:25 Telemetry/MedSurg (Inpatient) [facility] 20:15 17:25 nelson 10/21 20:46 01 20:15 [facility] ER [facility] 10/21 20:46 01 20:[facility]
[2021-10-19 17:52] LABS: Anisocytosis 1+; Blood Morphology Comment NOTED (NOT SEEN); Platelet Estimate ADEQ; White Blood Cell Scan OK (OK)
[2021-10-19] MEDS ORDERED: D5.45NS W/KCL 20MEQ 1,000 ML IV SCH ×2 (18:00→19:00)
--- NOTE | 2021-10-19 18:36 | CON ---
Date of Consultation: 10/19/2021 Brief History Of Present Illness: The patient is a 56-year-old male, who presents t o the hospital with complaints of abdominal pain beginning on Monday. He states that the abdominal p ain was located in the suprapubic area predominantly, but radiated to bilateral lower quadrants, actu ally worse in the right lower quadrant than in the left currently at this time, not associated with a ny other fever, chills, nausea, vomiting, change in bowel function. He continues to have bowel movem ents as of today and is passing gas. They are somewhat regular. They have been thin for some time s oliverio his diagnosis of rectal cancer, which was made in January via colonoscopy as he had changes stool caliber by Dr. Garnica. At that point, he was referred and got a port placed and started chemoradiation with 5-FU, oxaliplatin based protocol. He believes he is receiving radiation treatment currently in [place]. He presents with worsening pain beginning yesterday after a bowel movement. He started having lower abdominal pain and came to the hospital with the above-stated complaints. Past Medical History: Consistent for congestive heart failure, hypertension, gout, rectal cancer. Past Surgical History: Includes only a port placement. He denies any other abdominal surgery. Allergies: NO KNOWN DRUG ALLERGIES. Social History: He denies smoking, alcohol, recreational drug use. Physical Examination: Vital Signs: At the time of my examination; his blood pressure was 93/63, pulse 79, respiratory rate 17, temperature 99.2, oxygen saturation 99% on room air. His BMI is approximately 30. General: He is awake, alert, and oriented. Psychiatric: He is appropriate, conversive. HEENT: Otherwise normocephalic. His sclerae are slightly injected, but anicteric. His mucous membr anes are somewhat dry, but his oropharynx is clear. Neck: Supple without JVD. Chest: Normal expansion and excursion. Cardiovascular: Regular rate and rhythm. Pulmonary: Clear to auscultation bilaterally. Abdomen: Soft, globally tender to palpation. He has an umbilical hernia, which is minimally tender as well during my examination. He has mild voluntary guarding. His abdomen is not tympanic. Extremities: No clubbing, cyanosis, edema. Skin: Warm and dry. Laboratory Data: Revealed a white blood cell count of 6.1, hemoglobin is 11.0, hematocrit of 34.5, p latelet count is 381. His neutrophils were 88%. His sodium 134, potassium 4.0, chloride of 97, carb on dioxide 28, BUN 15, creatinine 1.52, glucose is 120. His total bilirubin is 1.6, direct component 0.4, AST 12, ALT 10, alkaline phosphatase is 61. His procalcitonin was 13. His influenza and COVID RNA by PCR are negative. He had imaging performed, which included a CT of the abdomen and pelvis. I reviewed this with Dr. Araiza today personally. The official findings are known rectal mass is a gain identified. The sigmoid colon is thickened. There is likely perforation of the sigmoid colon w ith reactive thickening of the distal small bowel. Multiple air fluid levels present. Normal append ix. Peritoneum, there is free air present. A small though not well-defined fluid collection is pres ent within the ileocolic mesentery. The umbilical hernia contains fluid and free air. The impressio n is consistent with free air present consistent with perforation of a hollow viscus. No rectal mass again identified with the suspected site of perforation to the mid to distal sigmoid colon, possibly result of obstruction due to constricting rectal mass. No drainable abscess at this time. Recommen d surgical consultation. There is a small amount of air at this point by my visual confirmation, but I concur with the above-stated findings of free air consistent with perforated viscus as described. Assessment And Plan: This is a 56-year-old male, who comes in with signs and symptoms of perforated colon. 1.IV fluid hydration. 2.Antibiotic coverage. 3.Serial abdominal exams. 4.N.p.o. status. 5.Electrolyte correction. 6.Pain medication. 7.I have explained the risks, benefits, and alternatives of operative versus nonoperative management including, but not limited to bleeding, infection, damage to surrounding tissues, need for further o peration or procedures. The patient would likely require a diversionary procedure such as a colostom y should he require surgical intervention. The patient would like to try for nonoperative management at this time as his symptoms are improving since his hospitalization and he currently feels well. I f he is not having pressure on his abdomen such as during examination, as such we will opt for a tria l of nonoperative management. I will re-evaluate him with serial abdominal exams throughout the cour se of his hospitalization and proceed accordingly. Thank you for this interesting consult. MELIDA Voice ID: [id number] Report ID: [id number]
--- NOTE | 2021-10-19 18:58 | P.HP ---
Certification for Inpatient With expected LOS: >2 Midnights Patient will require the following post-hospital care: None Practitioner: I am a practitioner with admitting privileges, knowledge of patient current condition, hospital course, and medical plan of care. Services: Services provided to patient in accordance with Admission requirements found in Title 42 Section 412.3 of the Code of Federal Regulations Patient History Date of Service: 10/19/21 Reason for admission: abdominal pain History of Present Illness: 56-year -[place] male past medical history of hypertension, gout, rectal cancer diagnosed via colonoscopy earlier this year , currently on pre- adjuvant chemoradiation therapy with oncology service at [facility], presented because of 3 days of right lower quadrant pain which has been intermittent and worsening. This has been associated with passage of mucoid stool. Patient stated he has a good bowel movement however yesterday.. He rates it at 10 out of 10. On presentation in the ED patient had a CT scan done with findings of a small perforation around a thickened sigmoid colon as well as previously noted rectal cancer. He has been evaluated by surgery and is being admitted for observation and antibiotics management. Allergies No Known Allergies Allergy (Verified 05/28/21 17:37) Home Medications: Furosemide [Lasix*] 40 mg PO DAILY 11/18/14 Metoprolol Succinate [Toprol Xl*] 50 mg PO DAILY 11/18/14 Furosemide [Lasix*] 40 mg PO DAILY #30 tab 11/19/14 Metoprolol Tartrate [Lopressor*] 50 mg PO BID 6AM 6PM #60 tab 11/19/14 Spironolactone [Aldactone*] 25 mg PO DAILY #30 tab 11/19/14 lisinopriL [Prinivil*] 20 mg PO DAILY #30 tab 11/19/14 - Past Medical/Surgical History Diabetic: No -: chf -: htn -: hyperlipidemia -: Chemo-Port placement - Family History Mother -: Heart disease, Other (see notes) Notes: CHF Father -: Diabetes - Social History Smoking Status: Never smoker Smoking therapy provided: No Alcohol use: No CD- Drugs: No Caffeine use: No Place of Residence: Home Review of Systems 10-point ROS is otherwise unremarkable Gastrointestinal: Abdominal Pain Physical Examination - Physical Exam General: Alert, Oriented x3, Cooperative HEENT: Atraumatic, Normocephalic, PERRLA Neck: Supple, 2+ carotid pulse no bruit, JVD not distended Respiratory: Clear to auscultation bilaterally, Normal air movement Cardiovascular: No edema, Regular rate/rhythm, Normal S1 S2 Gastrointestinal: Non-distended, No rebound, Tenderness (mild distended) Musculoskeletal: No clubbing, No swelling Neurological: Normal speech, Normal strength at 5/5 x4 extr, Normal tone External genitalia: No edema, No lesions - Studies Laboratory Data (last 24 hrs) 10/19/21 15:10: WBC 6.10, Hgb 11.0 L, Hct 34.5 L, Plt Count 381 10/19/21 15:10: Sodium 134 L, Potassium 4.0, BUN 15, Creatinine 1.52 H, Glucose 120 H, Total Bilirubin 1.6 H, AST 12 L, ALT 10 L, Alkaline Phosphatase 61, Lipase 21 L Imagings Data: CT abdomen -IMPRESSION: Free air present consistent with perforation of a hollow viscus. Known rectal mass again identified with the suspected site of perforation at the mid to distal sigmoid, possibly as a result of obstruction due to the constricting rectal mass. No drainable abscess at this time. Recommend surgical consultation. Assessment and Plan - Problems (Diagnosis) (1) Rectal cancer Current Visit: Yes Status: Acute (2) Perforated sigmoid colon Current Visit: Yes Status: Acute (3) CKD (chronic kidney disease), stage III Onset Date: 08/05/14 Current Visit: No Status: Acute (4) Hypertension Onset Date: 08/05/14 Current Visit: No Status: Acute - Plan Acute bowel perforationsecondary to rectal cancer with sigmoid perforation History of hypertension History of diastolic CHF History of gout History of CKD Plan We will admit to inpatient status Surgery consulted plan to manage patient conservatively with antibiotics and possible surgery if persistent symptoms States patient relatively stable, will monitor closely We will start empirical antibiotics with Zosyn as well as Flagyl Monitor creatinine trend Vital signs stable now, continue to follow Previously on Lasix will hold for now DVT prophylaxis with subcutaneous heparin Advanced directive discussed with patient full code - Advance Directives Does patient have a Living Will: No Does patient have a Durable POA for Healthcare: No
[2021-10-19] MEDS ORDERED: HYDRALAZINE HCL 20 MG/ML VIAL IV PRN (19:01)
[2021-10-19] MEDS: METRONIDAZOLE 500mg IVPB 500 MG/100 ML BAG IV SCH (20:00)
[2021-10-19] MEDS ORDERED: METRONIDAZOLE 500mg IVPB 500 MG/100 ML BAG IV ONE (20:32)
[2021-10-19] MEDS ORDERED: MORPHINE 2 MG/ML SYR ONE (20:32)
[2021-10-19] MEDS ORDERED: HEPARIN 5000 UNIT/ML 1 ML VIAL ONE (20:33)
[2021-10-19] MEDS: HEPARIN 5000 UNIT/ML 1 ML VIAL SQ SCH (21:00)
[2021-10-19] MEDS: INSULIN -REGULAR HUMAN 50 UNIT/0.5 ML ML SQ SCH (21:00)
[2021-10-20] MEDS ORDERED: ONDANSETRON 4 MG/2 ML VIAL ONE (00:53)
[2021-10-20] MEDS ORDERED: METRONIDAZOLE 500mg IVPB 500 MG/100 ML BAG IV ONE ×2 (00:54→20:34)
[2021-10-20] MEDS ORDERED: NA CHLORIDE 0.9% 100 ML ONE ×2 (00:54→13:13)
[2021-10-20] MEDS ORDERED: PIPERACIL/TAZO 3.375 GM VIAL IV ONE ×2 (00:54→09:03)
[2021-10-20] MEDS: PIPER TAZO 3.375 GM in NA CHLORIDE 0.9% 100 ML IV SCH ×3 (01:00→17:00)
[2021-10-20 02:56] LABS: Absolute Lymphocytes (CBC) 0.1 K/uL (0.7-4.9); Hematocrit 31.6 % (39.6-49.0); Lymphocytes % 3.1 % (15.3-44.8); MPV 7.1 fL (7.6-11.3); RBC Red Blood Cell Count 4.33 M/uL (4.33-5.43)
[2021-10-20 03:13] LABS: Albumin 2.4 g/dL (3.4-5.0); Bilirubin Total 1.7 mg/dL (0.2-1.0); Phosphorus 3.2 mg/dL (2.5-4.9); Potassium 4.4 mmol/L (3.5-5.1)
[2021-10-20] MEDS ORDERED: MORPHINE 2 MG/ML SYR ONE ×2 (03:19→09:02)
[2021-10-20] MEDS ORDERED: D5.45NS W/KCL 20MEQ 1,000 ML IV ONE ×2 (03:25→13:51)
[2021-10-20] MEDS: METRONIDAZOLE 500mg IVPB 500 MG/100 ML BAG IV SCH ×3 (03:41→20:00)
[2021-10-20 04:55] LABS: Anisocytosis 2+; Blood Morphology Comment NOTED (NOT SEEN); Platelet Estimate ADEQ
--- NOTE | 2021-10-20 06:20 | P.PN ---
Subjective Date of Service: 10/20/21 Primary Care Provider: unknown; Oncology-Dr. Mancera [facility] Chief Complaint: Abdominal pain Subjective: Other (Patient reports increase abdominal pain with some distention. He did report passage of small stool this morning. No passage of gas noted) Physical Examination - Vital Signs Temperature: 98.7 F Blood Pressure: 128/63 Pulse: 120 Respirations: 19 Pulse Ox (%): 98 - Studies Laboratory Data (last 24 hrs) 10/19/21 15:10: WBC 6.10, Hgb 11.0 L, Hct 34.5 L, Plt Count 381 10/19/21 15:10: Sodium 134 L, Potassium 4.0, BUN 15, Creatinine 1.52 H, Glucose 120 H, Total Bilirubin 1.6 H, AST 12 L, ALT 10 L, Alkaline Phosphatase 61, Lipase 21 L Assessment & Plan Discharge Plan: Home Plan to discharge in: Greater than 2 days Physician Review Additional Text: COVID: negative Initial CT scan: FINDINGS: Lower chest: No acute abnormality. Liver: No acute abnormality or suspicious lesions. Biliary: No biliary ductal dilatation. Stomach: No significant focal abnormality. Duodenum: No significant focal abnormality. Pancreas: No significant abnormality. Spleen: No significant abnormality. Adrenal: No suspicious lesions. Kidney/ureter: No hydronephrosis. No renal calculi. Too small to characterize and/or benign appearing renal lesions are noted. Retroperitoneum: No retroperitoneal adenopathy. Vascular: No aneurysm. Bowel: Known rectal mass is again identified. The sigmoid colon is thickened. There is likely a perforation of the sigmoid with reactive thickening of the distal small bowel. Multiple air-fluid levels are present.. Normal appendix. Peritoneum: Free air is present. A small though not well-defined fluid collection is present within the ileocolic mesentery. Umbilical hernia containing fluid and free air. Bladder: Grossly unremarkable. Reproductive: No adnexal masses. Bones: No acute fracture. Other: n/a IMPRESSION: Free air present consistent with perforation of a hollow viscus. Known rectal mass again identified with the suspected site of perforation at the mid to distal sigmoid, possibly as a result of obstruction due to the constricting rectal mass. No drainable abscess at this time. Recommend surgical consultation. Follow up CT scan: FINDINGS: Lower chest: Port tip in the right atrium. Cardiomegaly. Liver: No acute abnormality or suspicious lesions. Biliary: No biliary ductal dilatation. Stomach: No significant focal abnormality. Duodenum: No significant focal abnormality. Pancreas: No significant abnormality. Spleen: No significant abnormality. Adrenal: No suspicious lesions. Kidney/ureter: No hydronephrosis. No renal calculi. Too small to characterize and/or benign appearing renal lesions are noted. Retroperitoneum: No retroperitoneal adenopathy. Vascular: No aneurysm. Bowel: Increasing small bowel dilatation with multiple air-fluid levels. For example, a segment of small bowel in the left hemiabdomen previously measured 3 cm and now measures 3.6 cm. Re- demonstrated small bowel wall thickening at the ilium. Known rectal mass is similar to prior. Peritoneum: Free air volume is similar to yesterday. The free fluid volume is also similar. Umbilical hernia containing free air and fluid. Bladder: Contrast present within the bladder. Reproductive: No adnexal masses. Bones: No acute fracture. IMPRESSION: Similar volume of free air but increasing small bowel dilatation concerning for either worsening small bowel obstruction or ileus. The site of p erforation is likely at the sigmoid. Physical exam: General: Alert, Oriented x3, Cooperative HEENT: Atraumatic, Normocephalic, PERRLA Neck: Supple, 2+ carotid pulse no bruit, JVD not distended Respiratory: Clear to auscultation bilaterally, Normal air movement Cardiovascular: Mild tachycardia Gastrointestinal: Some distention to the abdomen noted. Pain to the left lower quadrant. Musculoskeletal: No clubbing, No swelling Neurological: Normal speech, Normal strength at 5/5 x4 extr, Normal tone External genitalia: No edema, No lesions Impression: Abdominal pain secondary to suspected mid to distal sigmoid perforation with small bowel dilation concerning for small bowel obstruction versus ileus complicated with history of rectal carcinoma with recent chemoradiation treatment Hypertension Chronic renal disease stage III Gout Chronic diastolic CHF Anemia of chronic disease Plan: Abdominal pain secondary to suspected mid to distal sigmoid perforation with small bowel dilation concerning for small bowel obstruction versus ileus complicated with history of rectal carcinoma with recent chemoradiation treatment: Patient reports increasing pain and distention. Patient is seen by [facility]. Patient recently treated with chemoradiation due to rectal cancer. Case discussed with surgery. Recheck CT scan shows similar volume of free air but increasing small bowel dilation concerning for worsening small bowel obstruction or ileus. Site of perforation likely sigmoid region. Will rediscuss with surgery. Patient may require surgical intervention. Await recommendations. Continue with IV fluids and IV antibiotic therapyZosyn/Flagyl. Patient n.p.o. at this time. Hypertension: We will provide IV medication as needed. Patient previously on lisinopril and metoprolol. Chronic renal disease stage III: Continue IV fluids. Overall stable. Will monitor renal function closely. Will consult nephrology to further monitor and address. Gout: Overall stable. Will monitor closely. Chronic diastolic CHF: Continue with above plan of care. Will monitor input output closely. Hold Aldactone and Lasix. Anemia of chronic disease: We will monitor hemoglobin. Transfuse if hemoglobin less than 7.5. We will check iron and B12 studies. CODE STATUS: Full code DVT prophylaxis: Heparin Advance care [id number] minutes: Home at discharge Time Spent Managing Pts Care (In Minutes): 55
[2021-10-20] MEDS: INSULIN -REGULAR HUMAN 50 UNIT/0.5 ML ML SQ SCH ×4 (07:30→21:00)
[2021-10-20] MEDS: D5.45NS W/KCL 20MEQ 20 MEQ/1,000 ML BAG IV SCH ×2 (08:00→13:51)
--- NOTE | 2021-10-20 08:12 | RAD REPORT ---
EXAM DESCRIPTION: CTAbdomen Pelvis Wo Contrast - 10/20/2021 7:59 am CLINICAL HISTORY: follow up sigmoid perforation COMPARISON: Abdomen Pelvis W Contrast dated 10/19/2021; Abdomen Pelvis W Contrast dated 05/27/2021; CT ABDOMEN PELVIS WO CONTRAST dated 04/04/2013 TECHNIQUE: CT of the abdomen and pelvis was performed. All CT scans are performed using dose optimization technique as appropriate and may include automated exposure control or mA/KV adjustment according to patient size. FINDINGS: Lower chest: Port tip in the right atrium. Cardiomegaly. Liver: No acute abnormality or suspicious lesions. Biliary: No biliary ductal dilatation. Stomach: No significant focal abnormality. Duodenum: No significant focal abnormality. Pancreas: No significant abnormality. Spleen: No significant abnormality. Adrenal: No suspicious lesions. Kidney/ureter: No hydronephrosis. No renal calculi. Too small to characterize and/or benign appearing renal lesions are noted. Retroperitoneum: No retroperitoneal adenopathy. Vascular: No aneurysm. Bowel: Increasing small bowel dilatation with multiple air-fluid levels. For example, a segment of sm all bowel in the left hemiabdomen previously measured 3 cm and now measures 3.6 cm. Re- demonstrated small bowel wall thickening at the ilium. Known rectal mass is similar to prior. Peritoneum: Free air volume is similar to yesterday. The free fluid volume is also similar. Umbilical hernia containing free air and fluid. Bladder: Contrast present within the bladder. Reproductive: No adnexal masses. Bones: No acute fracture. Other: n/a IMPRESSION: Similar volume of free air but increasing small bowel dilatation concerning for either w orsening small bowel obstruction or ileus. The site of perforation is likely at the sigmoid.
[2021-10-20] MEDS ORDERED: SODIUM CHLORIDE 0.9% 10ML INJ IV PRN (09:00)
[2021-10-20] MEDS ORDERED: PANTOPRAZOLE 40 MG INJ IVP SCH (09:00)
[2021-10-20] MEDS: HEPARIN 5000 UNIT/ML 1 ML VIAL SQ SCH ×2 (09:00→21:00)
[2021-10-20] MEDS ORDERED: NA CHLORIDE 0.9% 50 ML ONE (09:04)
[2021-10-20] MEDS: MORPHINE 2 MG/ML SYR IV PRN (09:16)
[2021-10-20] MEDS ORDERED: ERTAPENEM SODIUM 1 GM VIAL IVPB ONE (09:18)
[2021-10-20] MEDS ORDERED: NA CHLORIDE 0.9% 500 ML IV ONE (09:20)
[2021-10-20] MEDS ORDERED: ERTAPENEM NA 1 GM in NA CHLORIDE 0.9% 100 ML IVPB ONE (10:00)
[2021-10-20] MEDS ORDERED: NA CHLORIDE 0.9% 500 ML ONE (11:03)
[2021-10-20] MEDS ORDERED: PANTOPRAZOLE 40 MG INJ ONE (11:03)
[2021-10-20] MEDS ORDERED: SUCCINYLCHOLINE 20 MG/ML (10 ML) IV ONE (14:29)
[2021-10-20] MEDS: NA CHLORIDE 0.9% 1,000 ML ONE ×2 (14:30→14:34)
[2021-10-20] MEDS ORDERED: propofoL 200 MG/20 ML VIAL IV ONE (14:31)
[2021-10-20] MEDS ORDERED: ROCURONIUM 50 MG/5 ML VIAL IV ONE ×2 (14:32→15:19)
[2021-10-20] MEDS ORDERED: FENTANYL CITR 250 MCG/5 ML ONE (14:32)
[2021-10-20] MEDS ORDERED: MIDAZOLAM HCL 2 MG/2 ML INJ ONE (14:32)
[2021-10-20] MEDS: METRONIDAZOLE 500mg IVPB 500 MG/100 ML BAG IV ONE ×2 (14:55→15:25)
[2021-10-20] MEDS ORDERED: GLYCOPYRROLATE 0.2 MG/ML SYR ONE ×2 (16:41)
--- NOTE | 2021-10-20 16:57 | P.OP ---
Preoperative diagnosis: Perforated Colon Postoperative diagnosis: Perforated Colon Primary procedure: Exploratory Laparotomy with Transverse Loop Colostomy Secondary procedure: Primary Repair of Ventral Umbilical Hernia Other procedure(s): Liver punch biopsy Anesthesia: GETA Estimated blood loss: <20cc Specimen: Liver punch biopsy, hernia contents - omentum Findings: perforation @ sigmoid, liver nodule concerning for met, incar umb hernia Complications: None Drain(s): IZZY drain (10mm Flat IZZY) Transferred to: ICU Condition: Good
[2021-10-20] MEDS ORDERED: NEOSTIGMINE 1 MG/ML -5 ML ONE (17:02)
[2021-10-20] MEDS: HYDROMORPHONE HCL 1 MG/ML INJ ONE ×3 (17:35→17:41)
--- NOTE | 2021-10-20 17:50 | P.CNS ---
Date of Consult: 10/20/21 Reason for Consult: CKD vs JANET. Requesting Physician: Cady Delaney Primary Care Provider: unknown; Oncology-Dr. [facility] Chief Complaint: Abdominal pain History of Present Illness: 56 y o male pt with hx of rectal cancer who is s/p radiation therapy who was evaluated for episode of abd pain and found to have perforated colon and who si s/p repair. he has elevated cr requiring nephrology consultation. his cr is elevated at 1.5 and he also had mod volume depletion. no issues with diarrhea prior to encounter. Allergies No Known Allergies Allergy (Verified 05/28/21 17:37) Home medications list reviewed: Yes Home Medications: Furosemide [Lasix*] 40 mg PO DAILY 11/18/14 Metoprolol Succinate [Toprol Xl*] 50 mg PO DAILY 11/18/14 Furosemide [Lasix*] 40 mg PO DAILY #30 tab 11/19/14 Metoprolol Tartrate [Lopressor*] 50 mg PO BID 6AM 6PM #60 tab 11/19/14 Spironolactone [Aldactone*] 25 mg PO DAILY #30 tab 11/19/14 lisinopriL [Prinivil*] 20 mg PO DAILY #30 tab 11/19/14 - Past Medical/Surgical History Diabetic: No -: chf -: htn -: hyperlipidemia -: Chemo-Port placement - Family History Mother Medical History: Heart disease, Other (see notes) Notes: CHF Father Medical History: Diabetes - Social History Smoking Status: Never smoker Alcohol use: No CD- Drugs: No Caffeine use: No Place of Residence: Home Review of Systems General: Fever, Chills Eyes: Unremarkable ENT: Unremarkable Respiratory: Unremarkable Cardiovascular: Unremarkable Gastrointestinal: Abdominal Pain Genitourinary: Unremarkable Musculoskeletal: Unremarkable Integumentary: Unremarkable Neurological: Unremarkable Lymphatics: Unremarkable Physical Examination Temp Pulse Resp BP Pulse Ox 97.9 F 137 H 20 203/75 H 95 10/20/21 17:33 10/20/21 17:33 10/20/21 17:33 10/20/21 17:33 10/20/21 12:17 General: Delirious HEENT: Atraumatic, Normocephalic Respiratory: Clear to auscultation bilaterally Cardiovascular: Regular rate/rhythm, Normal S1 S2 Gastrointestinal: Hypoactive Neurological: Normal strength at 5/5 x4 extr Laboratory Data (last 24 hrs) 10/19/21 15:10: WBC 6.10, Hgb 11.0 L, Hct 34.5 L, Plt Count 381 Conclusions/Impression: 1. JANET vs CKD: He has bowel perforation and is post repair. we will continue IV fluid for hydration an monitoring vitals closely. we will dose meds for eGFR and avoid nephrotoxins. we will continue to monitor renal function closely. 2. Perforated colon: His perforation is now contained and is s/p repair with colostomy creation. surgeon evaluating. 3.Hypertension: we will follow vitals per unit protocol. we will aim for goal BP of <130/80mmhg.
[2021-10-20] MEDS ORDERED: FAMOTIDINE 20 MG/2 ML VIAL IV ONE (20:35)
[2021-10-20] MEDS ORDERED: HEPARIN 5000 UNIT/ML 1 ML VIAL ONE (20:35)
[2021-10-20] MEDS: FAMOTIDINE 20 MG/2 ML VIAL IV SCH (21:00)
[2021-10-20] MEDS: METOPROLOL TARTRATE 5 MG/5 ML INJ IV PRN (21:57)
--- NOTE | 2021-10-20 22:36 | OP ---
Date of Procedure: 10/20/2021 Surgeon: Jayy Fernández MD, Preoperative Diagnosis: Perforated viscus/colon. Postoperative Diagnosis: Perforated viscus/colon. Procedures Performed: 1.Exploratory laparotomy with transverse loop colostomy. 2.Primary repair of ventral umbilical hernia. 3.Abdominal washout. 4.Punch biopsy of liver nodule on right hepatic lobe near dome. Findings: 1.Perforation evident at the sigmoid colon with significant intraabdominal contamination. 2.Significant inflammatory changes to small bowel, particularly distal small bowel near ileocecal va lve with erythematous inflammatory changes, abscess, and inflammatory rind overlying the distal ileum . It was evidently causing an ileus. No bowel obstruction was appreciated, rather enlargement was a ppreciated of the entire small bowel up to the inflammatory changes near the right lower quadrant. 3.Significant intraabdominal contamination around the perihepatic and perisplenic spaces as well as in the pelvis with abscess in the central portion of the lower pelvis. 4.Incarcerated omental-containing umbilical hernia was evident with a narrow neck. 5.The liver had several small nodules, which were palpable on the right lobe near the dome of the li apolinar. These were concerning for metastatic disease as they had a somewhat firm appearance and were fi xated to the anterior surface of the liver. They were small approximately 3-4 mm in size. Several w ere noted, and on palpation of the liver, it did have a somewhat firmer field over multiple areas of the right lobe concerning for nodular disease. However, this was not visibly seen and I did not palp ate an obvious large or substantial nodule within the substance of the parenchyma. Intraoperative ul trasound was not available. Complications: None. Drain: A 10 mm flat IZZY drain was placed along the sigmoid colon near the perforation. Disposition: The patient was transferred to the ICU in good/stable condition. Procedure summary lio ef. Brief History Of Present Illness: The patient is a 56-year-old male with a known history of rectal c ancer, who is receiving chemoradiation with 5-FU. He has received 17 radiation treatments. He may h ave received oxaliplatin. He is unsure of any other chemotherapy regimen and it is not available for our review as he is getting his treatment at another facility who is not within our network, and as such, I do not have access to these records. However, the patient presented with an abdominal perfor ation consistent with a possible sigmoid perforation. He presented with evidence of an intestinal pe rforation likely of the sigmoid colon based on imaging. He was initially treated non-operatively as he had reassuring hemodynamic findings as well as his laboratory exam and physical exam did not neces sitate immediate urgent surgery. However, on re-examination this morning, he appeared somewhat more distended. A repeat stat CT noncontrast was performed, which showed a similar amount of air, however , there appeared to be a little more fluid evident and significant inflammatory changes with a possib le developing abscess/phlegmonous change. In addition, he had evidence of an ileus likely from the i ntraabdominal contamination. As such, I gave the patient additional IV fluids and hydration to see i f he responded to IV fluid hydration as his hemodynamic status changed with him having a worsening in creasing tachycardia. I therefore re-examined the patient to see if he responded to a fluid bolus as well as increased IV fluids. However, he did not have significant improvement and in fact had worse angelica of his clinical picture, and as such, I deemed him appropriate for emergent operative interventi on. I had therefore explained the risks, benefits, and alternatives of exploratory laparotomy, possi ble bowel resection, possible likely loop colostomy versus possible ileostomy in addition in unforese en procedures such as biopsies can be performed. The patient agreed to proceed. Procedure In Detail: After informed consent was obtained, the patient was brought to the operating r oom, prepped and draped in the usual sterile fashion, and placed in the supine position. SCDs were o n prior to induction of anesthesia and induction was quite smooth without event. The patient was int ubated in the usual fashion obviously prior to prepping and draping in the usual sterile fashion. Af ter the patient was appropriate for intervention, I then performed a midline laparotomy incision usin g a 10-blade down through subcutaneous tissues. Electrocautery was used to dissect down to the fasci a, which was opened with electrocautery after elevated with Patricia's. I then elevated the peritoneal lining and opened it sharply with Metzenbaum scissors. At this point, a finger was placed into the peritoneal cavity and allowed for opening of the abdomen in its entirety. At this point, a significa nt amount of inflammatory fluid was evident with murky discoloration consistent with intestinal perfo ration and there was a slight feculent odor to this. I proceeded to mobilize the small bowel, which auto-eviscerated due to the patient's significant ileus. The small bowel eviscerated itself througho ut most of the procedure. I therefore ran the small bowel from the ileocecal valve to the ligament o f Treitz. The ileocecal valve had significant inflammatory changes extending proximally through port ions of the small bowel as there was inflammatory change in the area and this was in close apposition to the perforated sigmoid colon, which was noted in the left lower quadrant. The mobilization of th e small bowel enabled the visualization of the perforation on the medial aspect of the distal sigmoid colon. The abdomen was washed out in its entirety at this point and there was significant intraabdo iram contamination found in the perihepatic and perisplenic spaces as well as down in the space of R etzius and into the rectal area. I therefore irrigated the entire area with multiple liters of warm saline and suctioned out until completely dry. I then palpated the spleen and found nothing obvious in this area. I then moved to palpation of the liver and noted there were some small approximately 2 -3 mm nodules on the right lobe of the liver near the dome. I therefore evaluated this area visually and found that there were 3 small nodules of concerning visual appearance concerning for possible me tastatic deposits. I made the decision that these would be biopsied after the procedure was complete d regarding the colon. I opted to minimize contamination, and as such, I washed out the remainder of the abdomen and suctioned out until completely clear. I then visualized the perforated sigmoid colo n after palpating the entire colon and found that there was a small area approximately 2-3 mm in size where the perforation was. At this point, I opted to close this using interrupted [id number] V icryl suture with good apposition of tissues and the perforation was contained at this point. I then irrigated this area once again and suctioned out until dry and visualized this area palpated. No ga s was appreciated emanating from this. At this point, I opted to reduce the hernia, which had entrap ped omentum at this point. I then began with taxis of the hernia contents. I used electrocautery to help to dissect the hernia sac circumferentially and removed the omental contents, which were firmly incarcerated in the umbilical ventral hernia. At this point, I then ligated some of the hernia cont ents as they appeared to have a murky appearance consistent with infection as it appeared that there were gas and contamination in this area. They appeared somewhat ischemic, and therefore, I opted to resect this portion of the omentum, which was entrapped within the hernia and this was sent off as he rnia contents. I then everted the sac, ligated, and placed a [id number] suture using 0 Ethibond to close the hernia neck defect at this point. I opted not to use any mesh at this point as the pat iekatlyn had a significant intraabdominal contamination and is going to undergo ongoing treatments for ch emotherapy after he resolves this particular episode. I then turned my attention to the colon. His transverse colon was quite floppy and mobile without any need for significant mobilization. As such, I opted to find an area, which was most mobile at the left upper quadrant near the flexure. I found a spot on the abdominal wall in the left upper quadrant. I grasped this area with a Patricia and cut the skin using a 10-blade. Electrocautery was used to circumferentially enlarge this down through camacho bcutaneous tissues to expose the anterior rectus sheath. At this point, I then turned my attention b ack to the liver and opted to use a laparoscopic biopsy forceps to take a bite of the suspicious, pos sible metastatic deposit on the liver as described. I then sent this off for pathologic examination. I fulgurated the liver bed using electrocautery with good hemostasis at this point. At this point, I turned my attention back to the colon. I made a cruciate incision over the anterior rectus sheath and the rectus fibers bluntly using a hemostat. I then opened the peritoneal cavity using a similar cruciate type incision and placed 2 fingers through the defect quite easily. I then grasp ed the portion of the transverse colon, which was freely mobile and brought up using a [place] and re mained on the surface of the skin without tension and no mobilization was necessary of the colon. At this point, I irrigated the abdomen once again and inspected the liver, which was found to have good hemostasis. At this point, I now opted to place a 10 mm flat IZZY drain in the left lower quadrant ne ar the previous perforation and placed this drain and brought it out through the left lower quadrant through a separate stab incision after being passed with a tonsillar clamp. At this point, I then se cured it to the skin using a 2-0 nylon suture and found it to be in good position in the peritoneal c avity. I then irrigated the abdomen once again, suctioned out until completely dry, inspected the li apolinar bed for hemostasis, which was achieved at this point. Once again, no additional hemostatic maneu vers were required and minimal blood loss was encountered throughout the entire procedure. At this p oint, I opted to close the patient's abdomen after placing the omentum back in the anterior orientati on. At this point, I closed the abdomen using a #1 looped PDS suture in a running fashion. I then i rrigated the skin and closed it with interrupted nina and a sterile dressing, and protective was p laced at this point. I then turned my attention to the colostomy. I created a small mesenteric wind ow using blunt dissection as well as electrocautery. A plastic smooth round bridge was then placed u nder this to prevent retraction. At this point, I made a small incision overlying the tenia to allow for a double opening of the common channel of the loop colostomy. I then rolled the edges of the co lostomy using interrupted 3-0 Vicryl sutures to ensure patency of this. I then digitally felt the pr oximal and distal ends of the loop colostomy and found them to be widely patent and easy to traverse. At this point, an ostomy appliance was placed. Prior to the ostomy appliance, no hemostatic measur es were required. I then secured the bridge to the skin using a #2 nylon suture on the proximal and distal ends of the bridge. I then had an ostomy appliance applied and the patient tolerated the proc edure well without complication. All counts were correct at the end of the case. JOLENE/MICHEALL Voice ID: [id number] Report ID: [id number]
[2021-10-21] MEDS ORDERED: ONDANSETRON 4 MG/2 ML VIAL ONE ×3 (00:01→07:52)
[2021-10-21] MEDS: ONDANSETRON 4 MG/2 ML VIAL IV PRN ×3 (00:01→15:24)
[2021-10-21] MEDS ORDERED: MORPHINE 2 MG/ML SYR ONE ×3 (00:01→07:52)
[2021-10-21] MEDS: PIPER TAZO 3.375 GM in NA CHLORIDE 0.9% 100 ML IV SCH ×3 (01:00→17:00)
[2021-10-21] MEDS ORDERED: PIPERACIL/TAZO 3.375 GM VIAL IV ONE ×3 (02:02→17:36)
[2021-10-21] MEDS ORDERED: NA CHLORIDE 0.9% 0 ML ONE (02:02)
[2021-10-21] MEDS ORDERED: D5.45NS W/KCL 20MEQ 1,000 ML IV ONE ×2 (02:09→11:55)
[2021-10-21 03:38] LABS: Absolute Lymphocytes (CBC) 0.1 K/uL (0.7-4.9); Hematocrit 34.1 % (39.6-49.0); MPV 7.1 fL (7.6-11.3); RBC Red Blood Cell Count 4.63 M/uL (4.33-5.43)
[2021-10-21] MEDS: MORPHINE 2 MG/ML SYR IV PRN ×3 (03:51→07:58)
[2021-10-21] MEDS: METRONIDAZOLE 500mg IVPB 500 MG/100 ML BAG IV SCH ×2 (04:00→12:00)
[2021-10-21 04:47] LABS: Ferritin 165.9 ng/mL (26-388); Magnesium 1.9 mg/dL (1.8-2.4); Phosphorus 3.3 mg/dL (2.5-4.9); Protein, Total 6.6 g/dL (6.4-8.2)
[2021-10-21] MEDS ORDERED: METRONIDAZOLE 500mg IVPB 0 MG/0 ML BAG IV ONE (05:53)
--- NOTE | 2021-10-21 06:11 | P.PN ---
Subjective Date of Service: 10/21/21 Primary Care Provider: unknown; Oncology-Dr. [facility] Oncology Chief Complaint: Abdominal pain Subjective: Other (Patient status post surgery. Heart rate remains elevated. Blood pressure stable.) Physical Examination - Vital Signs Temperature: 97.9 F Blood Pressure: 126/88 Pulse: 136 Respirations: 19 Pulse Ox (%): 98 Assessment & Plan Discharge Plan: Home Plan to discharge in: Greater than 2 days Physician Review Additional Text: COVID: negative Initial CT scan: FINDINGS: Lower chest: No acute abnormality. Liver: No acute abnormality or suspicious lesions. Biliary: No biliary ductal dilatation. Stomach: No significant focal abnormality. Duodenum: No significant focal abnormality. Pancreas: No significant abnormality. Spleen: No significant abnormality. Adrenal: No suspicious lesions. Kidney/ureter: No hydronephrosis. No renal calculi. Too small to characterize and/or benign appearing renal lesions are noted. Retroperitoneum: No retroperitoneal adenopathy. Vascular: No aneurysm. Bowel: Known rectal mass is again identified. The sigmoid colon is thickened. There is likely a perforation of the sigmoid with reactive thickening of the distal small bowel. Multiple air-fluid levels are present.. Normal appendix. Peritoneum: Free air is present. A small though not well-defined fluid collection is present within the ileocolic mesentery. Umbilical hernia containing fluid and free air. Bladder: Grossly unremarkable. Reproductive: No adnexal masses. Bones: No acute fracture. Other: n/a IMPRESSION: Free air present consistent with perforation of a hollow viscus. Known rectal mass again identified with the suspected site of perforation at the mid to distal sigmoid, possibly as a result of obstruction due to the constricting rectal mass. No drainable abscess at this time. Recommend surgical consultation. Follow up CT scan: FINDINGS: Lower chest: Port tip in the right atrium. Cardiomegaly. Liver: No acute abnormality or suspicious lesions. Biliary: No biliary ductal dilatation. Stomach: No significant focal abnormality. Duodenum: No significant focal abnormality. Pancreas: No significant abnormality. Spleen: No significant abnormality. Adrenal: No suspicious lesions. Kidney/ureter: No hydronephrosis. No renal calculi. Too small to characterize and/or benign appearing renal lesions are noted. Retroperitoneum: No retroperitoneal adenopathy. Vascular: No aneurysm. Bowel: Increasing small bowel dilatation with multiple air-fluid levels. For ex ample, a segment of small bowel in the left hemiabdomen previously measured 3 cm and now measures 3.6 cm. Re- demonstrated small bowel wall thickening at the ilium. Known rectal mass is similar to prior. Peritoneum: Free air volume is similar to yesterday. The free fluid volume is also similar. Umbilical hernia containing free air and fluid. Bladder: Contrast present within the bladder. Reproductive: No adnexal masses. Bones: No acute fracture. IMPRESSION: Similar volume of free air but increasing small bowel dilatation concerning for either worsening small bowel obstruction or ileus. The site of perforation is likely at the sigmoid. Surgery: Date: 10/20/21 16:54 Preoperative diagnosis: Perforated Colon Postoperative diagnosis: Perforated Colon Primary procedure: Exploratory Laparotomy with Transverse Loop Colostomy Secondary procedure: Primary Repair of Ventral Umbilical Hernia Other procedure(s): Liver punch biopsy Anesthesia: GETA Estimated blood loss: <20cc Specimen: Liver punch biopsy, hernia contents - omentum Findings: perforation @ sigmoid, liver nodule concerning for met, incar umb hernia Complications: None Drain(s): IZZY drain (10mm Flat IZZY) Transferred to: ICU Condition: Good Physical exam: General: Alert, Oriented x3, Cooperative HEENT: Atraumatic, Normocephalic, PERRLA. Dry mouth Neck: Supple, 2+ carotid pulse no bruit, JVD not distended Respiratory: Clear to auscultation bilaterally, Normal air movement Cardiovascular: Mild tachycardia Gastrointestinal: Some distention to the abdomen noted. Pain to the left lower quadrant. Musculoskeletal: No clubbing, No swelling Neurological: Normal speech, Normal strength at 5/5 x4 extr, Normal tone External genitalia: No edema, No lesions Impression: Abdominal pain secondary to mid to distal sigmoid perforation with small bowel dilation concerning for small bowel obstruction versus ileus complicated with history of rectal carcinoma with recent chemoradiation treatment status post exploratory laparotomy with transverse loop colostomy, primary repair of ventral umbilical hernia and liver punch biopsy Hypertension Chronic renal disease stage III Gout Chronic diastolic CHF Anemia of chronic disease with iron deficiency GERD Plan: Abdominal pain secondary to mid to distal sigmoid perforation with small bowel dilation concerning for small bowel obstruction versus ileus complicated with history of rectal carcinoma with recent chemoradiation treatment status post exploratory laparotomy with transverse loop colostomy, primary repair of ventral umbilical hernia and liver punch biopsy: Patient had surgery yesterday. Exploratory laparotomy with transverse loop colostomy performed. Other procedures included repair of ventral umbilical hernia and liver punch biopsy. Patient still slightly tachycardic. Will give IV fluid bolus this morning. Continue aggressive IV fluids. Patient remains n.p.o. Continue with pain medication. Continue IV antibiotic therapyZosyn and Flagyl. Will discuss further with surgery on plan of care. Hypertension: We will provide IV metoprolol as needed. Patient previously on lisinopril and metoprolol. Chronic renal disease stage III: Continue IV fluids. Overall stable. Will monitor renal function closely. Continue with nephrology recommendations Gout: Overall stable. Will monitor closely. Chronic diastolic CHF: Continue with above plan of care. Will monitor input output closely. Continue to hold Aldactone and Lasix. Anemia of chronic disease with iron deficiency: We will monitor hemoglobin. Transfuse if hemoglobin less than 7.5. GERD: Continue with IV Protonix. CODE STATUS: Full code DVT prophylaxis: Heparin Advance care minutes: Home at discharge Time Spent Managing Pts Care (In Minutes): 55
[2021-10-21] MEDS: INSULIN -REGULAR HUMAN 50 UNIT/0.5 ML ML SQ SCH ×4 (07:30→19:59)
[2021-10-21] MEDS: D5.45NS W/KCL 20MEQ 20 MEQ/1,000 ML BAG IV SCH ×4 (08:00→16:00)
[2021-10-21] MEDS ORDERED: LIDOCAINE 1% W/EPI 1:100,000 MDV 50 ML VIAL ONE (08:51)
[2021-10-21] MEDS ORDERED: NA CHLORIDE 0.9% 500 ML IV ONE (08:55)
[2021-10-21] MEDS: FAMOTIDINE 20 MG/2 ML VIAL IV SCH ×2 (09:00→19:59)
[2021-10-21] MEDS ORDERED: HYDROMORPHONE HCL 0.5 MG/0.5 ML INJ ONE ×3 (10:37→21:51)
[2021-10-21] MEDS: HYDROMORPHONE HCL 0.5 MG/0.5 ML INJ IV PRN ×4 (10:37→23:33)
[2021-10-21] MEDS ORDERED: NA CHLORIDE 0.9% 100 ML ONE ×3 (11:55→17:36)
[2021-10-21] MEDS ORDERED: HEPARIN 5000 UNIT/ML 1 ML VIAL ONE ×2 (11:55→19:54)
[2021-10-21] MEDS ORDERED: FAMOTIDINE 20 MG TAB ONE (11:55)
[2021-10-21] MEDS ORDERED: NA CHLORIDE 0.9% 500 ML ONE (11:56)
[2021-10-21] MEDS: HEPARIN 5000 UNIT/ML 1 ML VIAL SQ SCH ×2 (11:59→19:58)
[2021-10-21] MEDS ORDERED: METOPROLOL TARTRATE 5 MG/5 ML INJ IV ONE ×2 (12:10→14:45)
[2021-10-21] MEDS: METOPROLOL TARTRATE 5 MG/5 ML INJ IV PRN (12:10)
--- NOTE | 2021-10-21 12:18 | RAD REPORT ---
EXAM DESCRIPTION: RAD - Abdomen 1 View (KUB) - 10/21/2021 5:53 am CLINICAL HISTORY: 56 years Male ngt placement TECHNIQUE: A single AP supine x-ray of the abdomen was performed on 10/21/2021 at 5:45 AM. COMPARISON: None. FINDINGS: There are multiple dilated small bowel loops which may be due to a postoperative ileus. An obstructive process is not entirely excluded. There is air and fecal residue scattered throughout th e colon. The feeding tube is present which terminates in the left upper quadrant in the region of the gastric fundus. Skin closure nina are present in vertical fashion along the abdomen in the midlin e. The surgical drainage catheter projects over the left lower quadrant and extends into the region o f the central pelvis. No pathologic abdominal or pelvic calcifications are identified. No abnormal air collections are identified. No focal soft tissue abnormalities are seen. No acute osseous abnormalities are identified. IMPRESSION: 1. The tip of the feeding tube projects over the left upper quadrant in the region of the gastric fundus. 2. Postsurgical changes of the abdomen with findings suggesting a small bowel ileus. An obstructive process is not entirely excluded. Electronically signed by: Thalia Moore DO 10/21/2021 6:03 AM [employer] Due to temporary technical issues with the PACS/Fluency reporting system, reports are being signed by the in house radiologists without review as a courtesy to insure prompt reporting. The interpreting radiologist is fully responsible for the content of the report.
--- NOTE | 2021-10-21 13:09 | P.PN ---
Subjective Date of Service: 10/21/21 Primary Care Provider: unknown; Oncology-Dr. [facility] Oncology Chief Complaint: Abdominal pain Subjective: Improving (Patient feels less pain, less distended. no acute events) Physical Examination - Vital Signs Temperature: 97.9 F Blood Pressure: 131/101 Pulse: 136 Respirations: 19 Pulse Ox (%): 98 - Physical Exam General: Alert, In no apparent distress, Cooperative Neck: Supple Respiratory: Clear to auscultation bilaterally, Normal air movement Cardiovascular: Other (tachycardia) Gastrointestinal: Other (soft, mild appropriate TTP, mild distention, colostomy pink, viable, matured @ bedside today, IZZY serosang) Assessment And Plan Physician Review Additional Text: COVID: negative Initial CT scan: FINDINGS: Lower chest: No acute abnormality. Liver: No acute abnormality or suspicious lesions. Biliary: No biliary ductal dilatation. Stomach: No significant focal abnormality. Duodenum: No significant focal abnormality. Pancreas: No significant abnormality. Spleen: No significant abnormality. Adrenal: No suspicious lesions. Kidney/ureter: No hydronephrosis. No renal calculi. Too small to characterize and/or benign appearing renal lesions are noted. Retroperitoneum: No retroperitoneal adenopathy. Vascular: No aneurysm. Bowel: Known rectal mass is again identified. The sigmoid colon is thickened. There is likely a perforation of the sigmoid with reactive thickening of the distal small bowel. Multiple air-fluid levels are present.. Normal appendix. Peritoneum: Free air is present. A small though not well-defined fluid collection is present within the ileocolic mesentery. Umbilical hernia containing fluid and free air. Bladder: Grossly unremarkable. Reproductive: No adnexal masses. Bones: No acute fracture. Other: n/a IMPRESSION: Free air present consistent with perforation of a hollow viscus. Known rectal mass again identified with the suspected site of perforation at the mid to distal sigmoid, possibly as a result of obstruction due to the constricting rectal mass. No drainable abscess at this time. Recommend surgical consultation. Follow up CT scan: FINDINGS: Lower chest: Port tip in the right atrium. Cardiomegaly. Liver: No acute abnormality or suspicious lesions. Biliary: No biliary ductal dilatation. Stomach: No significant focal abnormality. Duodenum: No significant focal abnormality. Pancreas: No significant abnormality. Spleen: No significant abnormality. Adrenal: No suspicious lesions. Kidney/ureter: No hydronephrosis. No renal calculi. Too small to characterize and/or benign appearing renal lesions are noted. Retroperitoneum: No retroperitoneal adenopathy. Vascular: No aneurysm. Bowel: Increasing small bowel dilatation with multiple air-fluid levels. For example, a segment of small bowel in the left hemiabdomen previously measured 3 cm and now measures 3.6 cm. Re- demonstrated small bowel wall thickening at the ilium. Known rectal mass is similar to prior. Peritoneum: Free air volume is similar to yesterday. The free fluid volume is also similar. Umbilical hernia containing free air and fluid. Bladder: Contrast present within the bladder. Reproductive: No adnexal masses. Bones: No acute fracture. IMPRESSION: Similar volume of free air but increasing small bowel dilatation concerning for either worsening small bowel obstruction or ileus. The site of perforation is likely at the sigmoid. Surgery: Date: 10/20/21 16:54 Preoperative diagnosis: Perforated Colon Postoperative diagnosis: Perforated Colon Primary procedure: Exploratory Laparotomy with Transverse Loop Colostomy Secondary procedure: Primary Repair of Ventral Umbilical Hernia Other procedure(s): Liver punch biopsy Anesthesia: GETA Estimated blood loss: <20cc Specimen: Liver punch biopsy, hernia contents - omentum Findings: perforation @ sigmoid, liver nodule concerning for met, incar umb hernia Complications: None Drain(s): IZZY drain (10mm Flat IZZY) Transferred to: ICU Condition: Good Physical exam: General: Alert, Oriented x3, Cooperative HEENT: Atraumatic, Normocephalic, PERRLA. Dry mouth Neck: Supple, 2+ carotid pulse no bruit, JVD not distended Respiratory: Clear to auscultation bilaterally, Normal air movement Cardiovascular: Mild tachycardia Gastrointestinal: Some distention to the abdomen noted. Pain to the left lower quadrant. Musculoskeletal: No clubbing, No swelling Neurological: Normal speech, Normal strength at 5/5 x4 extr, Normal tone External genitalia: No edema, No lesions Impression: Abdominal pain secondary to mid to distal sigmoid perforation with small bowel dilation concerning for small bowel obstruction versus ileus complicated with history of rectal carcinoma with recent chemoradiation treatment status post exploratory laparotomy with transverse loop colostomy, primary repair of ventral umbilical hernia and liver punch biopsy Hypertension Chronic renal disease stage III Gout Chronic diastolic CHF Anemia of chronic disease with iron deficiency GERD Plan: Abdominal pain secondary to mid to distal sigmoid perforation with small bowel dilation concerning for small bowel obstruction versus ileus complicated with history of rectal carcinoma with recent chemoradiation treatment status post exploratory laparotomy with transverse loop colostomy, primary repair of ventral umbilical hernia and liver punch biopsy: Patient had surgery yesterday. Exploratory laparotomy with transverse loop colostomy performed. Other procedures included repair of ventral umbilical hernia and liver punch biopsy. Patient still slightly tachycardic. Will give IV fluid bolus this morning. Continue aggressive IV fluids. Patient remains n.p.o. Continue with pain medication. Continue IV antibiotic therapyZosyn and Flagyl. Will discuss further with surgery on plan of care. Hypertension: We will provide IV metoprolol as needed. Patient previously on lisinopril and metoprolol. Chronic renal disease stage III: Continue IV fluids. Overall stable. Will monitor renal function closely. Continue with nephrology recommendations Gout: Overall stable. Will monitor closely. Chronic diastolic CHF: Continue with above plan of care. Will monitor input output closely. Continue to hold Aldactone and Lasix. Anemia of chronic disease with iron deficiency: We will monitor hemoglobin. Transfuse if hemoglobin less than 7.5. GERD: Continue with IV Protonix. CODE STATUS: Full code DVT prophylaxis: Heparin Advance care [id number] minutes: Home at discharge
[2021-10-21] MEDS ORDERED: METOPROLOL TARTRATE 5 MG/5 ML INJ IV STA (15:05)
[2021-10-21] MEDS ORDERED: METRONIDAZOLE 500mg IVPB 500 MG/100 ML BAG IV ONE (15:07)
[2021-10-21] MEDS ORDERED: HYDRALAZINE HCL 20 MG/ML VIAL ONE ×2 (17:36→17:38)
[2021-10-21] MEDS: HYDRALAZINE HCL 20 MG/ML VIAL IV PRN (17:37)
--- NOTE | 2021-10-21 18:54 | P.PN ---
Subjective Date of Service: 10/21/21 Primary Care Provider: unknown; Oncology-Dr. Mancer[facility] Oncology Chief Complaint: Abdominal pain Subjective: No new changes Review of Systems General: Unremarkable Eyes: Unremarkable Respiratory: Unremarkable Cardiovascular: Unremarkable Gastrointestinal: Abdominal Pain Genitourinary: Unremarkable Musculoskeletal: Unremarkable Neurological: Unremarkable Physical Examination - Vital Signs Temperature: 97.9 F Blood Pressure: 124/110 Pulse: 130 Respirations: 19 Pulse Ox (%): 98 - Physical Exam General: Alert, Oriented x3 HEENT: Atraumatic, Normocephalic Respiratory: Clear to auscultation bilaterally Gastrointestinal: Soft and benign, Other (colostomy noted.) Assessment And Plan - Plan 1. JANET vs CKD: He has bowel perforation and is post repair. cr is still elevated at 1.7. we will continue IV fluid for hydration and monitoring vitals closely. we will dose meds for eGFR and avoid nephrotoxins. we will continue to monitor renal function closely. 2. Perforated colon: His perforation is now contained and is s/p repair with colostomy creation. surgeon evaluating. 3.Hypertension: we will follow vitals per unit protocol. we will aim for goal BP of <130/80mmhg. Physician Review Additional Text: COVID: negative Initial CT scan: FINDINGS: Lower chest: No acute abnormality. Liver: No acute abnormality or suspicious lesions. Biliary: No biliary ductal dilatation. Stomach: No significant focal abnormality. Duodenum: No significant focal abnormality. Pancreas: No significant abnormality. Spleen: No significant abnormality. Adrenal: No suspicious lesions. Kidney/ureter: No hydronephrosis. No renal calculi. Too small to characterize and/or benign appearing renal lesions are noted. Retroperitoneum: No retroperitoneal adenopathy. Vascular: No aneurysm. Bowel: Known rectal mass is again identified. The sigmoid colon is thickened. There is likely a perforation of the sigmoid with reactive thickening of the distal small bowel. Multiple air-fluid levels are present.. Normal appendix. Peritoneum: Free air is present. A small though not well-defined fluid collection is present within the ileocolic mesentery. Umbilical hernia containing fluid and free air. Bladder: Grossly unremarkable. Reproductive: No adnexal masses. Bones: No acute fracture. Other: n/a IMPRESSION: Free air present consistent with perforation of a hollow viscus. Known rectal mass again identified with the suspected site of perforation at the mid to distal sigmoid, possibly as a result of obstruction due to the constricting rectal mass. No drainable abscess at this time. Recommend surgical consultation. Follow up CT scan: FINDINGS: Lower chest: Port tip in the right atrium. Cardiomegaly. Liver: No acute abnormality or suspicious lesions. Biliary: No biliary ductal dilatation. Stomach: No significant focal abnormality. Duodenum: No significant focal abnormality. Pancreas: No significant abnormality. Spleen: No significant abnormality. Adrenal: No suspicious lesions. Kidney/ureter: No hydronephrosis. No renal calculi. Too small to characterize and/or benign appearing renal lesions are noted. Retroperitoneum: No retroperitoneal adenopathy. Vascular: No aneurysm. Bowel: Increasing small bowel dilatation with multiple air-fluid levels. For example, a segment of small bowel in the left hemiabdomen previously measured 3 cm and now measures 3.6 cm. Re- demonstrated small bowel wall thickening at the ilium. Known rectal mass is similar to prior. Peritoneum: Free air volume is similar to yesterday. The free fluid volume is also similar. Umbilical hernia containing free air and fluid. Bladder: Contrast present within the bladder. Reproductive: No adnexal masses. Bones: No acute fracture. IMPRESSION: Similar volume of free air but increasing small bowel dilatation concerning for either worsening small bowel obstruction or ileus. The site of perforation is likely at the sigmoid. Surgery: Date: 10/20/21 16:54 Preoperative diagnosis: Perforated Colon Postoperative diagnosis: Perforated Colon Primary procedure: Exploratory Laparotomy with Transverse Loop Colostomy Secondary procedure: Primary Repair of Ventral Umbilical Hernia Other procedure(s): Liver punch biopsy Anesthesia: GETA Estimated blood loss: <20cc Specimen: Liver punch biopsy, hernia contents - omentum Findings: perforation @ sigmoid, liver nodule concerning for met, incar umb hernia Complications: None Drain(s): IZZY drain (10mm Flat IZZY) Transferred to: ICU Condition: Good Physical exam: General: Alert, Oriented x3, Cooperative HEENT: Atraumatic, Normocephalic, PERRLA. Dry mouth Neck: Supple, 2+ carotid pulse no bruit, JVD not distended Respiratory: Clear to auscultation bilaterally, Normal air movement Cardiovascular: Mild tachycardia Gastrointestinal: Some distention to the abdomen noted. Pain to the left lower quadrant. Musculoskeletal: No clubbing, No swelling Neurological: Normal speech, Normal strength at 5/5 x4 extr, Normal tone External genitalia: No edema, No lesions Impression: Abdominal pain secondary to mid to distal sigmoid perforation with small bowel dilation concerning for small bowel obstruction versus ileus complicated with history of rectal carcinoma with recent chemoradiation treatment status post exploratory laparotomy with transverse loop colostomy, primary repair of ventral umbilical hernia and liver punch biopsy Hypertension Chronic renal disease stage III Gout Chronic diastolic CHF Anemia of chronic disease with iron deficiency GERD Plan: Abdominal pain secondary to mid to distal sigmoid perforation with small bowel dilation concerning for small bowel obstruction versus ileus complicated with history of rectal carcinoma with recent chemoradiation treatment status post exploratory laparotomy with transverse loop colostomy, primary repair of ventral umbilical hernia and liver punch biopsy: Patient had surgery yesterday. Exploratory laparotomy with transverse loop colostomy performed. Other procedures included repair of ventral umbilical hernia and liver punch biopsy. Patient still slightly tachycardic. Will give IV fluid bolus this morning. Continue aggressive IV fluids. Patient remains n.p.o. Continue with pain medication. Continue IV antibiotic therapyZosyn and Flagyl. Will discuss further with surgery on plan of care. Hypertension: We will provide IV metoprolol as needed. Patient previously on lisinopril and metoprolol. Chronic renal disease stage III: Continue IV fluids. Overall stable. Will monitor renal function closely. Continue with nephrology recommendations Gout: Overall stable. Will monitor closely. Chronic diastolic CHF: Continue with above plan of care. Will monitor input output closely. Continue to hold Aldactone and Lasix. Anemia of chronic disease with iron deficiency: We will monitor hemoglobin. Transfuse if hemoglobin less than 7.5. GERD: Continue with IV Protonix. CODE STATUS: Full code DVT prophylaxis: Heparin Advance care [id number] minutes: Home at discharge
[2021-10-21] MEDS ORDERED: FAMOTIDINE 20 MG/2 ML VIAL IV ONE (19:55)
[2021-10-21] MEDS ORDERED: HYDROMORPHONE HCL 1 MG/ML INJ ONE (19:55)
[2021-10-22] MEDS: D5.45NS W/KCL 20MEQ 20 MEQ/1,000 ML BAG IV SCH ×4 (02:19→18:36)
[2021-10-22] MEDS: PIPER TAZO 3.375 GM in NA CHLORIDE 0.9% 100 ML IV SCH ×4 (02:20→23:58)
[2021-10-22] MEDS: HYDROMORPHONE HCL 0.5 MG/0.5 ML INJ IV PRN ×5 (03:09→23:42)
--- NOTE | 2021-10-22 05:42 | P.PN ---
Subjective Date of Service: 10/22/21 Primary Care Provider: unknown; Oncology-Dr. Mancera [facility] Oncology Chief Complaint: Abdominal pain Subjective: Improving Physical Examination - Vital Signs Temperature: 99.4 F Blood Pressure: 138/86 Pulse: 128 Respirations: 19 Pulse Ox (%): 93 Assessment & Plan Discharge Plan: Home Plan to discharge in: Greater than 2 days Physician Review Additional Text: COVID: negative Initial CT scan: FINDINGS: Lower chest: No acute abnormality. Liver: No acute abnormality or suspicious lesions. Biliary: No biliary ductal dilatation. Stomach: No significant focal abnormality. Duodenum: No significant focal abnormality. Pancreas: No significant abnormality. Spleen: No significant abnormality. Adrenal: No suspicious lesions. Kidney/ureter: No hydronephrosis. No renal calculi. Too small to characterize and/or benign appearing renal lesions are noted. Retroperitoneum: No retroperitoneal adenopathy. Vascular: No aneurysm. Bowel: Known rectal mass is again identified. The sigmoid colon is thickened. There is likely a perforation of the sigmoid with reactive thickening of the distal small bowel. Multiple air-fluid levels are present.. Normal appendix. Peritoneum: Free air is present. A small though not well-defined fluid collection is present within the ileocolic mesentery. Umbilical hernia containing fluid and free air. Bladder: Grossly unremarkable. Reproductive: No adnexal masses. Bones: No acute fracture. Other: n/a IMPRESSION: Free air present consistent with perforation of a hollow viscus. Known rectal mass again identified with the suspected site of perforation at the mid to distal sigmoid, possibly as a result of obstruction due to the constricting rectal mass. No drainable abscess at this time. Recommend surgical consultation. Follow up CT scan: FINDINGS: Lower chest: Port tip in the right atrium. Cardiomegaly. Liver: No acute abnormality or suspicious lesions. Biliary: No biliary ductal dilatation. Stomach: No significant focal abnormality. Duodenum: No significant focal abnormality. Pancreas: No significant abnormality. Spleen: No significant abnormality. Adrenal: No suspicious lesions. Kidney/ureter: No hydronephrosis. No renal calculi. Too small to characterize and/or benign appearing renal lesions are noted. Retroperitoneum: No retroperitoneal adenopathy. Vascular: No aneurysm. Bowel: Increasing small bowel dilatation with multiple air-fluid levels. For example, a segment of small bowel in the left hemiabdomen previously measured 3 cm and now measures 3.6 cm. Re- demonstrated small bowel wall thickening at the ilium. Known rectal mass is similar to prior. Peritoneum: Free air volume is similar to yesterday. The free fluid volume is also similar. Umbilical hernia containing free air and fluid. Bladder: Contrast present within the bladder. Reproductive: No adnexal masses. Bones: No acute fracture. IMPRESSION: Similar volume of free air but increasing small bowel dilatation concerning for either worsening small bowel obstruction or ileus. The site of perforation is likely at the sigmoid. Surgery: Date: 10/20/21 16:54 Preoperative diagnosis: Perforated Colon Postoperative diagnosis: Perforated Colon Primary procedure: Exploratory Laparotomy with Transverse Loop Colostomy Secondary procedure: Primary Repair of Ventral Umbilical Hernia Other procedure(s): Liver punch biopsy Anesthesia: GETA Estimated blood loss: <20cc Specimen: Liver punch biopsy, hernia contents - omentum Findings: perforation @ sigmoid, liver nodule concerning for met, incar umb hernia Complications: None Drain(s): IZZY drain (10mm Flat IZZY) Transferred to: ICU Condition: Good Physical exam: General: Alert, Oriented x3, Cooperative HEENT: Atraumatic, Normocephalic, PERRLA. Dry mouth Neck: Supple, 2+ carotid pulse no bruit, JVD not distended Respiratory: Clear to auscultation bilaterally, Normal air movement Cardiovascular: Mild tachycardia Gastrointestinal: Some distention to the abdomen noted. Pain to the left lower quadrant. Musculoskeletal: No clubbing, No swelling Neurological: Normal speech, Normal strength at 5/5 x4 extr, Normal tone External genitalia: No edema, No lesions Impression: Abdominal pain secondary to mid to distal sigmoid perforation with small bowel dilation concerning for small bowel obstruction versus ileus complicated with history of rectal carcinoma with recent chemoradiation treatment status post exploratory laparotomy with transverse loop colostomy, primary repair of ventral umbilical hernia and liver punch biopsy Hypertension Chronic renal disease stage III Gout Chronic diastolic CHF Anemia of chronic disease with iron deficiency GERD Plan: Abdominal pain secondary to mid to distal sigmoid perforation with small bowel dilation concerning for small bowel obstruction versus ileus complicated with history of rectal carcinoma with recent chemoradiation treatment status post exploratory laparotomy with transverse loop colostomy, primary repair of ventral umbilical hernia and liver punch biopsy: Patient doing well postoperatively. Exploratory laparotomy with transverse loop colostomy performed. Other procedures included repair of ventral umbilical hernia and liver punch biopsy. Patient still slightly tachycardic. Continue with IV fluids. Continue aggressive IV fluids. Patient remains n.p.o. Case discussed at length with surgery. Discontinue IV Flagyl. Continue IV Zosyn. Physical therapy to assess ambulation. Continue with surgery recommendations. Hypertension: We will provide IV metoprolol as needed. We will add IV hydra lazine as needed as well. Patient previously on lisinopril and metoprolol. Chronic renal disease stage III: Continue IV fluids. Overall stable. Will monitor renal function closely. Continue with nephrology recommendations Gout: Overall stable. Will monitor closely. Chronic diastolic CHF: Continue with above plan of care. Will monitor input output closely. Continue to hold Aldactone and Lasix. Anemia of chronic disease with iron deficiency: We will monitor hemoglobin. Transfuse if hemoglobin less than 7.5. GERD: Continue with IV Protonix. CODE STATUS: Full code DVT prophylaxis: Heparin Advance care [id number] minutes: Home at discharge Time Spent Managing Pts Care (In Minutes): 55
[2021-10-22 06:00] LABS: Absolute Lymphocytes (CBC) 0.1 K/uL (0.7-4.9); Hematocrit 28.9 % (39.6-49.0); Lymphocytes % 3.2 % (15.3-44.8); MPV 7.3 fL (7.6-11.3); RBC Red Blood Cell Count 3.95 M/uL (4.33-5.43)
[2021-10-22] MEDS: INSULIN -REGULAR HUMAN 50 UNIT/0.5 ML ML SQ SCH ×4 (06:00→23:43)
[2021-10-22 06:22] LABS: Bilirubin Total 0.8 mg/dL (0.2-1.0); Potassium 4.6 mmol/L (3.5-5.1)
[2021-10-22 06:23] LABS: Albumin 1.7 g/dL (3.4-5.0); Magnesium 2.1 mg/dL (1.8-2.4); Phosphorus 1.7 mg/dL (2.5-4.9); Protein, Total 6.2 g/dL (6.4-8.2)
--- NOTE | 2021-10-22 07:02 | P.PN ---
Subjective Date of Service: 10/22/21 Primary Care Provider: unknown; Oncology-Dr. Mancera [facility] Oncology Chief Complaint: Abdominal pain Subjective: No new changes Physical Examination - Vital Signs Temperature: 99.4 F Blood Pressure: 159/96 Pulse: 124 Respirations: 21 Pulse Ox (%): 95 - Physical Exam General: Alert, Oriented x3 HEENT: Atraumatic, Normocephalic Respiratory: Clear to auscultation bilaterally Cardiovascular: No edema Gastrointestinal: Soft and benign, Other (colostomy bag clean) Musculoskeletal: No swelling Neurological: Normal speech, Normal strength at 5/5 x4 extr Assessment And Plan - Plan 1. JANET vs CKD: He has bowel perforation and is post repair. cr is better today at 1.34. we will continue IV fluid for hydration and monitoring of vitals. we will dose meds for eGFR and avoid nephrotoxins. we will continue to monitor renal function closely. 2. Perforated colon: s/p repair with colostomy creation. surgeon following. 3.Hypertension: BP is better today. we will follow vitals per unit protocol. we will aim for goal BP of <130/80mmhg. Physician Review Additional Text: COVID: negative Initial CT scan: FINDINGS: Lower chest: No acute abnormality. Liver: No acute abnormality or suspicious lesions. Biliary: No biliary ductal dilatation. Stomach: No significant focal abnormality. Duodenum: No significant focal abnormality. Pancreas: No significant abnormality. Spleen: No significant abnormality. Adrenal: No suspicious lesions. Kidney/ureter: No hydronephrosis. No renal calculi. Too small to characterize and/or benign appearing renal lesions are noted. Retroperitoneum: No retroperitoneal adenopathy. Vascular: No aneurysm. Bowel: Known rectal mass is again identified. The sigmoid colon is thickened. There is likely a perforation of the sigmoid with reactive thickening of the distal small bowel. Multiple air-fluid levels are present.. Normal appendix. Peritoneum: Free air is present. A small though not well-defined fluid collection is present within the ileocolic mesentery. Umbilical hernia containing fluid and free air. Bladder: Grossly unremarkable. Reproductive: No adnexal masses. Bones: No acute fracture. Other: n/a IMPRESSION: Free air present consistent with perforation of a hollow viscus. Known rectal mass again identified with the suspected site of perforation at the mid to distal sigmoid, possibly as a result of obstruction due to the constricting rectal mass. No drainable abscess at this time. Recommend surgical consultation. Follow up CT scan: FINDINGS: Lower chest: Port tip in the right atrium. Cardiomegaly. Liver: No acute abnormality or suspicious lesions. Biliary: No biliary ductal dilatation. Stomach: No significant focal abnormality. Duodenum: No significant focal abnormality. Pancreas: No significant abnormality. Spleen: No significant abnormality. Adrenal: No suspicious lesions. Kidney/ureter: No hydronephrosis. No renal calculi. Too small to characterize and/or benign appearing renal lesions are noted. Retroperitoneum: No retroperitoneal adenopathy. Vascular: No aneurysm. Bowel: Increasing small bowel dilatation with multiple air-fluid levels. For example, a segment of small bowel in the left hemiabdomen previously measured 3 cm and now measures 3.6 cm. Re- demonstrated small bowel wall thickening at the ilium. Known rectal mass is similar to prior. Peritoneum: Free air volume is similar to yesterday. The free fluid volume is also similar. Umbilical hernia containing free air and fluid. Bladder: Contrast present within the bladder. Reproductive: No adnexal masses. Bones: No acute fracture. IMPRESSION: Similar volume of free air but increasing small bowel dilatation concerning for either worsening small bowel obstruction or ileus. The site of perforation is likely at the sigmoid. Surgery: Date: 10/20/21 16:54 Preoperative diagnosis: Perforated Colon Postoperative diagnosis: Perforated Colon Primary procedure: Exploratory Laparotomy with Transverse Loop Colostomy Secondary procedure: Primary Repair of Ventral Umbilical Hernia Other procedure(s): Liver punch biopsy Anesthesia: GETA Estimated blood loss: <20cc Specimen: Liver punch biopsy, hernia contents - omentum Findings: perforation @ sigmoid, liver nodule concerning for met, incar umb hernia Complications: None Drain(s): IZZY drain (10mm Flat IZZY) Transferred to: ICU Condition: Good Physical exam: General: Alert, Oriented x3, Cooperative HEENT: Atraumatic, Normocephalic, PERRLA. Dry mouth Neck: Supple, 2+ carotid pulse no bruit, JVD not distended Respiratory: Clear to auscultation bilaterally, Normal air movement Cardiovascular: Mild tachycardia Gastrointestinal: Some distention to the abdomen noted. Pain to the left lower quadrant. Musculoskeletal: No clubbing, No swelling Neurological: Normal speech, Normal strength at 5/5 x4 extr, Normal tone External genitalia: No edema, No lesions Impression: Abdominal pain secondary to mid to distal sigmoid perforation with small bowel dilation concerning for small bowel obstruction versus ileus complicated with history of rectal carcinoma with recent chemoradiation treatment status post exploratory laparotomy with transverse loop colostomy, primary repair of ventral umbilical hernia and liver punch biopsy Hypertension Chronic renal disease stage III Gout Chronic diastolic CHF Anemia of chronic disease with iron deficiency GERD Plan: Abdominal pain secondary to mid to distal sigmoid perforation with small bowel dilation concerning for small bowel obstruction versus ileus complicated with history of rectal carcinoma with recent chemoradiation treatment status post exploratory laparotomy with transverse loop colostomy, primary repair of ventral umbilical hernia and liver punch biopsy: Patient had surgery yesterday. Exploratory laparotomy with transverse loop colostomy performed. Other procedures included repair of ventral umbilical hernia and liver punch biopsy. Patient still slightly tachycardic. Will give IV fluid bolus this morning. Continue aggressive IV fluids. Patient remains n.p.o. Continue with pain medication. Continue IV antibiotic therapyZosyn and Flagyl. Will discuss further with surgery on plan of care. Hypertension: We will provide IV metoprolol as needed. Patient previously on lisinopril and metoprolol. Chronic renal disease stage III: Continue IV fluids. Overall stable. Will cesario tor renal function closely. Continue with nephrology recommendations Gout: Overall stable. Will monitor closely. Chronic diastolic CHF: Continue with above plan of care. Will monitor input output closely. Continue to hold Aldactone and Lasix. Anemia of chronic disease with iron deficiency: We will monitor hemoglobin. T ransfuse if hemoglobin less than 7.5. GERD: Continue with IV Protonix. CODE STATUS: Full code DVT prophylaxis: Heparin Advance care [id number] minutes: Home at discharge
[2021-10-22] MEDS: FAMOTIDINE 20 MG/2 ML VIAL IV SCH ×2 (08:17→20:09)
[2021-10-22] MEDS: HEPARIN 5000 UNIT/ML 1 ML VIAL SQ SCH ×2 (08:17→20:09)
--- NOTE | 2021-10-22 11:16 | RAD REPORT ---
EXAM DESCRIPTION: RAD - Abdomen 1 View (KUB) - 10/22/2021 10:54 am CLINICAL HISTORY: NGT placement COMPARISON: Abdomen 1 View (KUB) dated 10/21/2021 FINDINGS: Supine portable single view of the chest and upper abdomen obtained following placement of an NG/ OG tube. The tip and side port of the tubing are in the left upper quadrant in the decompress ed stomach. Prominent small bowel gas pattern is present. No free air or pneumatosis identifiable. IMPRESSION: NG/OG tube placement in good positioning.
[2021-10-22] MEDS: METOPROLOL TARTRATE 5 MG/5 ML INJ IV PRN ×2 (13:35→16:53)
[2021-10-22] MEDS: HYDRALAZINE HCL 20 MG/ML VIAL IV PRN ×2 (15:21→20:09)
[2021-10-23] MEDS: METOPROLOL TARTRATE 5 MG/5 ML INJ IV PRN (02:12)
[2021-10-23] MEDS: D5.45NS W/KCL 20MEQ 20 MEQ/1,000 ML BAG IV SCH ×3 (02:13→23:01)
[2021-10-23] MEDS: HYDROMORPHONE HCL 0.5 MG/0.5 ML INJ IV PRN ×5 (04:12→20:03)
[2021-10-23 05:18] LABS: Absolute Lymphocytes (CBC) 0.1 K/uL (0.7-4.9); Hematocrit 28.3 % (39.6-49.0); Lymphocytes % 3.1 % (15.3-44.8); MPV 6.8 fL (7.6-11.3); RBC Red Blood Cell Count 3.87 M/uL (4.33-5.43)
[2021-10-23 05:30] LABS: Albumin 1.8 g/dL (3.4-5.0); Bilirubin Total 0.7 mg/dL (0.2-1.0); Magnesium 2.3 mg/dL (1.8-2.4); Phosphorus 1.8 mg/dL (2.5-4.9); Potassium 4.2 mmol/L (3.5-5.1); Protein, Total 6.3 g/dL (6.4-8.2)
--- NOTE | 2021-10-23 05:43 | P.PN ---
Subjective Date of Service: 10/23/21 Primary Care Provider: unknown; Oncology-Dr. Mancera [facility] Oncology Chief Complaint: Abdominal pain Subjective: Doing well Physical Examination - Vital Signs Temperature: 99.4 F Blood Pressure: 174/111 Pulse: 116 Respirations: 26 Pulse Ox (%): 99 Assessment & Plan Discharge Plan: Home Plan to discharge in: Greater than 2 days Physician Review Additional Text: COVID: negative Initial CT scan: FINDINGS: Lower chest: No acute abnormality. Liver: No acute abnormality or suspicious lesions. Biliary: No biliary ductal dilatation. Stomach: No significant focal abnormality. Duodenum: No significant focal abnormality. Pancreas: No significant abnormality. Spleen: No significant abnormality. Adrenal: No suspicious lesions. Kidney/ureter: No hydronephrosis. No renal calculi. Too small to characterize and/or benign appearing renal lesions are noted. Retroperitoneum: No retroperitoneal adenopathy. Vascular: No aneurysm. Bowel: Known rectal mass is again identified. The sigmoid colon is thickened. There is likely a perforation of the sigmoid with reactive thickening of the distal small bowel. Multiple air-fluid levels are present.. Normal appendix. Peritoneum: Free air is present. A small though not well-defined fluid collection is present within the ileocolic mesentery. Umbilical hernia containing fluid and free air. Bladder: Grossly unremarkable. Reproductive: No adnexal masses. Bones: No acute fracture. Other: n/a IMPRESSION: Free air present consistent with perforation of a hollow viscus. Known rectal mass again identified with the suspected site of perforation at the mid to distal sigmoid, possibly as a result of obstruction due to the constricting rectal mass. No drainable abscess at this time. Recommend surgical consultation. Follow up CT scan: FINDINGS: Lower chest: Port tip in the right atrium. Cardiomegaly. Liver: No acute abnormality or suspicious lesions. Biliary: No biliary ductal dilatation. Stomach: No significant focal abnormality. Duodenum: No significant focal abnormality. Pancreas: No significant abnormality. Spleen: No significant abnormality. Adrenal: No suspicious lesions. Kidney/ureter: No hydronephrosis. No renal calculi. Too small to characterize and/or benign appearing renal lesions are noted. Retroperitoneum: No retroperitoneal adenopathy. Vascular: No aneurysm. Bowel: Increasing small bowel dilatation with multiple air-fluid levels. For example, a segment of small bowel in the left hemiabdomen previously measured 3 cm and now measures 3.6 cm. Re- demonstrated small bowel wall thickening at the ilium. Known rectal mass is similar to prior. Peritoneum: Free air volume is similar to yesterday. The free fluid volume is also similar. Umbilical hernia containing free air and fluid. Bladder: Contrast present within the bladder. Reproductive: No adnexal masses. Bones: No acute fracture. IMPRESSION: Similar volume of free air but increasing small bowel dilatation concerning for either worsening small bowel obstruction or ileus. The site of perforation is likely at the sigmoid. Surgery: Date: 10/20/21 16:54 Preoperative diagnosis: Perforated Colon Postoperative diagnosis: Perforated Colon Primary procedure: Exploratory Laparotomy with Transverse Loop Colostomy Secondary procedure: Primary Repair of Ventral Umbilical Hernia Other procedure(s): Liver punch biopsy Anesthesia: GETA Estimated blood loss: <20cc Specimen: Liver punch biopsy, hernia contents - omentum Findings: perforation @ sigmoid, liver nodule concerning for met, incar umb hernia Complications: None Drain(s): IZZY drain (10mm Flat IZZY) Transferred to: ICU Condition: Good KUB 10/22/2021: COMPARISON: Abdomen 1 View (KUB) dated 10/21/2021 FINDINGS: Supine portable single view of the chest and upper abdomen obtained following placement of an NG/ OG tube. The tip and side port of the tubing are i n the left upper quadrant in the decompressed stomach. Prominent small bowel gas pattern is present. No free air or pneumatosis identifiable. IMPRESSION: NG/OG tube placement in good positioning. Pathology: DIAGNOSIS Liver, biopsy: - Small fragment of hepatic tissue with associated inflamed fibrovascular tissue - No malignancy identified Soft tissue, designated ventral umbilical hernia contents, herniorrhaphy: - Skin and fibroadipose tissue with acute inflammation Physical exam: General: Alert, Oriented x3, Cooperative HEENT: Atraumatic, Normocephalic, PERRLA. Dry mouth Neck: Supple, 2+ carotid pulse no bruit, JVD not distended Respiratory: Clear to auscultation bilaterally, Normal air movement Cardiovascular: Mild tachycardia Gastrointestinal: Postsurgical changes noted. Colostomy in place. IZZY tube in place. Pain controlled. Musculoskeletal: No clubbing, No swelling Neurological: Normal speech, Normal strength at 5/5 x4 extr, Normal tone External genitalia: No edema, No lesions Impression: Abdominal pain secondary to mid to distal sigmoid perforation with small bowel dilation concerning for small bowel obstruction versus ileus complicated with history of rectal carcinoma with recent chemoradiation treatment status post exploratory laparotomy with transverse loop colostomy, primary repair of ventral umbilical hernia and liver punch biopsy Hypertension Chronic renal disease stage III Gout Chronic diastolic CHF Anemia of chronic disease with iron deficiency GERD Plan: Abdominal pain secondary to mid to distal sigmoid perforation with small bowel dilation concerning for small bowel obstruction versus ileus complicated with history of rectal carcinoma with recent chemoradiation treatment status post exploratory laparotomy with transverse loop colostomy, primary repair of ventral umbilical hernia and liver punch biopsy: Patient doing well postoperatively. Exploratory laparotomy with transverse loop colostomy performed. Other procedures included repair of ventral umbilical hernia and liver punch biopsy. Pathology from liver biopsy shows inflamed fibrovascular tissue. No malignancy identified. Tissue from ventral hernia shows acute inflammation. Pain controlled. Continue with IV fluids. Patient remains n.p.o. Continue IV Zosyn. Physical therapy to assess ambulation. Continue to discuss plan of care with surgery. Hypertension: Continue IV metoprolol and IV hydralazine for blood pressure control. Patient previously on lisinopril and metoprolol. Chronic renal disease stage III: Continue IV fluids. Overall stable. Will monitor renal function closely. Continue with nephrology recommendations Gout: Overall stable. Will monitor closely. Chronic diastolic CHF: Continue with above plan of care. Will monitor input output closely. Continue to hold Aldactone and Lasix. Anemia of chronic disease with iron deficiency: We will monitor hemoglobin. Transfuse if hemoglobin less than 7.5. GERD: Continue with IV Pepcid CODE STATUS: Full code DVT prophylaxis: Heparin Advance care [id number] minutes: Home at discharge Time Spent Managing Pts Care (In Minutes): 55
[2021-10-23] MEDS: INSULIN -REGULAR HUMAN 50 UNIT/0.5 ML ML SQ SCH ×3 (05:53→18:00)
[2021-10-23] MEDS ORDERED: POTASSIUM PHOS IN 0.9 % NACL 15 MMOL/250 ML BAG IV ONE (08:00)
[2021-10-23] MEDS: PIPER TAZO 3.375 GM in NA CHLORIDE 0.9% 100 ML IV SCH ×2 (09:00→17:01)
[2021-10-23] MEDS: HEPARIN 5000 UNIT/ML 1 ML VIAL SQ SCH ×2 (09:03→20:02)
[2021-10-23] MEDS: FAMOTIDINE 20 MG/2 ML VIAL IV SCH ×2 (09:04→20:02)
[2021-10-23] MEDS ORDERED: HYDROMORPHONE HCL 0.5 MG/0.5 ML INJ IV ONE (10:09)
[2021-10-23] MEDS: ONDANSETRON 4 MG/2 ML VIAL IV PRN (10:27)
[2021-10-23] MEDS: HYDRALAZINE HCL 20 MG/ML VIAL IV PRN ×2 (10:27→15:53)
--- NOTE | 2021-10-23 10:51 | P.PN ---
Subjective Date of Service: 10/23/21 Primary Care Provider: unknown; Oncology-Dr. [facility] Oncology Chief Complaint: Abdominal pain Subjective: Improving (No acute events, passed gas from anus, ostomy has fluid, no other acute events. Pain improving.) Physical Examination - Vital Signs Temperature: 99.4 F Blood Pressure: 174/111 Pulse: 116 Respirations: 26 Pulse Ox (%): 95 - Physical Exam General: Alert, In no apparent distress, Cooperative HEENT: Normocephalic Respiratory: Normal air movement Cardiovascular: Other (tachycardia but improving) Gastrointestinal: Other (soft, mild appropirate TTP, minimal distention - improved, colostomy pink and viable, swollen, no ischemia, fluid in bag, streaks of stool in bag, IZZY serous) Neurological: Normal speech Urinary: Gonzalez catheter Assessment And Plan - Current Problems (Diagnosis) (1) Perforated sigmoid colon Current Visit: Yes Status: Acute Plan: Gen: Continue IV pain medication, will plan to transition to PO soon CVS: tachycardia improving Pulm: improving, continue incentive spirometry GI: await bowel function via colostomy, can anticipate function in colostomy bag as well as per rectum as patient did have stool burden in residual distal colon, serial exams, keep IZZY for now, clamp trial for NG Tube for 6 hours FEN: decrease total IVF to 115 cc/hr, continue electrolyte replacement protocol, nutrition: anticipate start PO today if passes NG clamp trial for 6 hours Endo: continue insulin protocol Prophylaxis: DVT prophylaxis to continue with heparin Placement / Rehab: continue PT/OT ambulate with assist, can transfer to floor likely today ID: continue antibiotics with zosyn, DC gonzalez, continue strict I/O Daily labs to continue Physician Review Additional Text: COVID: negative Initial CT scan: FINDINGS: Lower chest: No acute abnormality. Liver: No acute abnormality or suspicious lesions. Biliary: No biliary ductal dilatation. Stomach: No significant focal abnormality. Duodenum: No significant focal abnormality. Pancreas: No significant abnormality. Spleen: No significant abnormality. Adrenal: No suspicious lesions. Kidney/ureter: No hydronephrosis. No renal calculi. Too small to characterize and/or benign appearing renal lesions are noted. Retroperitoneum: No retroperitoneal adenopathy. Vascular: No aneurysm. Bowel: Known rectal mass is again identified. The sigmoid colon is thickened. There is likely a perforation of the sigmoid with reactive thickening of the distal small bowel. Multiple air-fluid levels are present.. Normal appendix. Peritoneum: Free air is present. A small though not well-defined fluid collection is present within the ileocolic mesentery. Umbilical hernia containing fluid and free air. Bladder: Grossly unremarkable. Reproductive: No adnexal masses. Bones: No acute fracture. Other: n/a IMPRESSION: Free air present consistent with perforation of a hollow viscus. Known rectal mass again identified with the suspected site of perforation at the mid to distal sigmoid, possibly as a result of obstruction due to the constricting rectal mass. No drainable abscess at this time. Recommend surgical consultation. Follow up CT scan: FINDINGS: Lower chest: Port tip in the right atrium. Cardiomegaly. Liver: No acute abnormality or suspicious lesions. Biliary: No biliary ductal dilatation. Stomach: No significant focal abnormality. Duodenum: No significant focal abnormality. Pancreas: No significant abnormality. Spleen: No significant abnormality. Adrenal: No suspicious lesions. Kidney/ureter: No hydronephrosis. No renal calculi. Too small to characterize and/or benign appearing renal lesions are noted. Retroperitoneum: No retroperitoneal adenopathy. Vascular: No aneurysm. Bowel: Increasing small bowel dilatation with multiple air-fluid levels. For example, a segment of small bowel in the left hemiabdomen previously measured 3 cm and now measures 3.6 cm. Re- demonstrated small bowel wall thickening at the ilium. Known rectal mass is similar to prior. Peritoneum: Free air volume is similar to yesterday. The free fluid volume is also similar. Umbilical hernia containing free air and fluid. Bladder: Contrast present within the bladder. Reproductive: No adnexal masses. Bones: No acute fracture. IMPRESSION: Similar volume of free air but increasing small bowel dilatation concerning for either worsening small bowel obstruction or ileus. The site of perforation is likely at the sigmoid. Surgery: Date: 10/20/21 16:54 Preoperative diagnosis: Perforated Colon Postoperative diagnosis: Perforated Colon Primary procedure: Exploratory Laparotomy with Transverse Loop Colostomy Secondary procedure: Primary Repair of Ventral Umbilical Hernia Other procedure(s): Liver punch biopsy Anesthesia: GETA Estimated blood loss: <20cc Specimen: Liver punch biopsy, hernia contents - omentum Findings: perforation @ sigmoid, liver nodule concerning for met, incar umb hernia Complications: None Drain(s): IZZY drain (10mm Flat IZZY) Transferred to: ICU Condition: Good KUB 10/22/2021: COMPARISON: Abdomen 1 View (KUB) dated 10/21/2021 FINDINGS: Supine portable single view of the chest and upper abdomen obtained following placement of an NG/ OG tube. The tip and side port of the tubing are in the left upper quadrant in the decompressed stomach. Prominent small bowel gas pattern is present. No free air or pneumatosis identifiable. IMPRESSION: NG/OG tube placement in good positioning. Pathology: DIAGNOSIS Liver, biopsy: - Small fragment of hepatic tissue with associated inflamed fibrovascular tissue - No malignancy identified Soft tissue, designated ventral umbilical hernia contents, herniorrhaphy: - Skin and fibroadipose tissue with acute inflammation Physical exam: General: Alert, Oriented x3, Cooperative HEENT: Atraumatic, Normocephalic, PERRLA. Dry mouth Neck: Supple, 2+ carotid pulse no bruit, JVD not distended Respiratory: Clear to auscultation bilaterally, Normal air movement Cardiovascular: Mild tachycardia Gastrointestinal: Postsurgical changes noted. Colostomy in place. IZZY tube in place. Pain controlled. Musculoskeletal: No clubbing, No swelling Neurological: Normal speech, Normal strength at 5/5 x4 extr, Normal tone External genitalia: No edema, No lesions Impression: Abdominal pain secondary to mid to distal sigmoid perforation with small bowel dilation concerning for small bowel obstruction versus ileus complicated with history of rectal carcinoma with recent chemoradiation treatment status post exploratory laparotomy with transverse loop colostomy, primary repair of ventral umbilical hernia and liver punch biopsy Hypertension Chronic renal disease stage III Gout Chronic diastolic CHF Anemia of chronic disease with iron deficiency GERD Plan: Abdominal pain secondary to mid to distal sigmoid perforation with small bowel dilation concerning for small bowel obstruction versus ileus complicated with hi story of rectal carcinoma with recent chemoradiation treatment status post exploratory laparotomy with transverse loop colostomy, primary repair of ventral umbilical hernia and liver punch biopsy: Patient doing well postoperatively. Exploratory laparotomy with transverse loop colostomy performed. Other procedures included repair of ventral umbilical hernia and liver punch biopsy. Pathology from liver biopsy shows inflamed fibrovascular tissue. No malignancy identified. Tissue from ventral hernia shows acute inflammation. Pain controlled. Continue with IV fluids. Patient remains n.p.o. Continue IV Zosyn. Physical therapy to assess ambulation. Continue to discuss plan of care with surgery. Hypertension: Continue IV metoprolol and IV hydralazine for blood pressure control. Patient previously on lisinopril and metoprolol. Chronic renal disease stage III: Continue IV fluids. Overall stable. Will monitor renal function closely. Continue with nephrology recommendations Gout: Overall stable. Will monitor closely. Chronic diastolic CHF: Continue with above plan of care. Will monitor input output closely. Continue to hold Aldactone and Lasix. Anemia of chronic disease with iron deficiency: We will monitor hemoglobin. Transfuse if hemoglobin less than 7.5. GERD: Continue with IV Pepcid CODE STATUS: Full code DVT prophylaxis: Heparin Advance care [id number] minutes: Home at discharge
[2021-10-23] MEDS ORDERED: HYDROMORPHONE HCL 1 MG/ML INJ IV ONE (22:33)
[2021-10-24] MEDS: PIPER TAZO 3.375 GM in NA CHLORIDE 0.9% 100 ML IV SCH ×3 (00:43→16:04)
[2021-10-24] MEDS: HYDROMORPHONE HCL 0.5 MG/0.5 ML INJ IV PRN ×7 (01:39→22:09)
[2021-10-24 05:38] LABS: Absolute Lymphocytes (CBC) 0.8 K/uL (0.7-4.9); Hematocrit 29.4 % (39.6-49.0); Lymphocytes % 13.4 % (15.3-44.8); MPV 7.1 fL (7.6-11.3); RBC Red Blood Cell Count 3.99 M/uL (4.33-5.43)
--- NOTE | 2021-10-24 05:41 | P.PN ---
Subjective Date of Service: 10/24/21 Primary Care Provider: unknown; Oncology-Dr. [facility] Oncology Chief Complaint: Abdominal pain Subjective: Improving (Patient improving. NG tube was removed yesterday. Patient on clear liquid diet. Pain seems to be well controlled.) Physical Examination - Vital Signs Temperature: 98.2 F Blood Pressure: 144/99 Pulse: 112 Respirations: 22 Pulse Ox (%): 96 Assessment & Plan Discharge Plan: Home Plan to discharge in: Greater than 2 days Physician Review Additional Text: COVID: negative Initial CT scan: FINDINGS: Lower chest: No acute abnormality. Liver: No acute abnormality or suspicious lesions. Biliary: No biliary ductal dilatation. Stomach: No significant focal abnormality. Duodenum: No significant focal abnormality. Pancreas: No significant abnormality. Spleen: No significant abnormality. Adrenal: No suspicious lesions. Kidney/ureter: No hydronephrosis. No renal calculi. Too small to characterize and/or benign appearing renal lesions are noted. Retroperitoneum: No retroperitoneal adenopathy. Vascular: No aneurysm. Bowel: Known rectal mass is again identified. The sigmoid colon is thickened. There is likely a perforation of the sigmoid with reactive thickening of the distal small bowel. Multiple air-fluid levels are present.. Normal appendix. Peritoneum: Free air is present. A small though not well-defined fluid collection is present within the ileocolic mesentery. Umbilical hernia containing fluid and free air. Bladder: Grossly unremarkable. Reproductive: No adnexal masses. Bones: No acute fracture. Other: n/a IMPRESSION: Free air present consistent with perforation of a hollow viscus. Known rectal mass again identified with the suspected site of perforation at the mid to distal sigmoid, possibly as a result of obstruction due to the constricting rectal mass. No drainable abscess at this time. Recommend surgical consultation. Follow up CT scan: FINDINGS: Lower chest: Port tip in the right atrium. Cardiomegaly. Liver: No acute abnormality or suspicious lesions. Biliary: No biliary ductal dilatation. Stomach: No significant focal abnormality. Duodenum: No significant focal abnormality. Pancreas: No significant abnormality. Spleen: No significant abnormality. Adrenal: No suspicious lesions. Kidney/ureter: No hydronephrosis. No renal calculi. Too small to characterize and/or benign appearing renal lesions are noted. Retroperitoneum: No retroperitoneal adenopathy. Vascular: No aneurysm. Bowel: Increasing small bowel dilatation with multiple air-fluid levels. For example, a segment of small bowel in the left hemiabdomen previously measured 3 cm and now measures 3.6 cm. Re- demonstrated small bowel wall thickening at the ilium. Known rectal mass is similar to prior. Peritoneum: Free air volume is similar to yesterday. The free fluid volume is also similar. Umbilical hernia containing free air and fluid. Bladder: Contrast present within the bladder. Reproductive: No adnexal masses. Bones: No acute fracture. IMPRESSION: Similar volume of free air but increasing small bowel dilatation concerning for either worsening small bowel obstruction or ileus. The site of perforation is likely at the sigmoid. Surgery: Date: 10/20/21 16:54 Preoperative diagnosis: Perforated Colon Postoperative diagnosis: Perforated Colon Primary procedure: Exploratory Laparotomy with Transverse Loop Colostomy Secondary procedure: Primary Repair of Ventral Umbilical Hernia Other procedure(s): Liver punch biopsy Anesthesia: GETA Estimated blood loss: <20cc Specimen: Liver punch biopsy, hernia contents - omentum Findings: perforation @ sigmoid, liver nodule concerning for met, incar umb hernia Complications: None Drain(s): IZZY drain (10mm Flat IZZY) Transferred to: ICU Condition: Good KUB 10/22/2021: COMPARISON: Abdomen 1 View (KUB) dated 10/21/2021 FINDINGS: Supine portable single view of the chest and upper abdomen obtained following placement of an NG/ OG tube. The tip and side port of the tubing are in the left upper quadrant in the decompressed stomach. Prominent small bowel gas pattern is present. No free air or pneumatosis identifiable. IMPRESSION: NG/OG tube placement in good positioning. Pathology: DIAGNOSIS Liver, biopsy: - Small fragment of hepatic tissue with associated inflamed fibrovascular tissue - No malignancy identified Soft tissue, designated ventral umbilical hernia contents, herniorrhaphy: - Skin and fibroadipose tissue with acute inflammation Physical exam: General: Alert, Oriented x3, Cooperative HEENT: Atraumatic, Normocephalic, PERRLA. Dry mouth Neck: Supple, 2+ carotid pulse no bruit, JVD not distended Respiratory: Clear to auscultation bilaterally, Normal air movement. Patient remains on room air Cardiovascular: Mild tachycardia Gastrointestinal: Postsurgical changes noted. Colostomy in place. IZZY tube in place. Pain controlled. Musculoskeletal: No clubbing, No swelling Neurological: Normal speech, Normal strength at 5/5 x4 extr, Normal tone External genitalia: No edema, No lesions Impression: Abdominal pain secondary to mid to distal sigmoid perforation with small bowel dilation concerning for small bowel obstruction versus ileus complicated with history of rectal carcinoma with recent chemoradiation treatment status post exploratory laparotomy with transverse loop colostomy, primary repair of ventral umbilical hernia and liver punch biopsy Hypertension Chronic renal disease stage III Gout Chronic diastolic CHF Anemia of chronic disease with iron deficiency GERD Plan: Abdominal pain secondary to mid to distal sigmoid perforation with small bowel dilation concerning for small bowel obstruction versus ileus complicated with history of rectal carcinoma with recent chemoradiation treatment status post exploratory laparotomy with transverse loop colostomy, primary repair of ventral umbilical hernia and liver punch biopsy: Patient doing well postoperatively. Exploratory laparotomy with transverse loop colostomy performed. Other procedures included repair of ventral umbilical hernia and liver punch biopsy. Pathology from liver biopsy shows inflamed fibrovascular tissue. No malignancy identified. Tissue from ventral hernia shows acute inflammation. Pain seems to be well controlled. Patient now on clear liquid diet. Continue IV fluids. Continue IV Zosyn. Continue physical therapy. Patient to be transition to medical floor. Will restart his carvedilol medication for blood pressure. Continue to adjust medication. Overall stable and improved. Anticipate improvement over the next several days. Continue to discuss with surgery. I will turn the service over to the hospitalist team tomorrow. I will go over the plan of care with him. Hypertension: Restart carvedilol 25 mg 1 pill twice daily since the patient is on clear liquids. Discontinue IV metoprolol. Continue IV hydralazine as needed. Patient may require additional medication if blood pressure remains elevated. Chronic renal disease stage III: Continue IV fluids. Overall stable. Will monitor renal function closely. Continue with nephrology recommendations Gout: Overall stable. Will monitor closely. Chronic diastolic CHF: Continue with above plan of care. Will monitor input o utput closely. Continue to hold Lasix Anemia of chronic disease with iron deficiency: We will monitor hemoglobin. Transfuse if hemoglobin less than 7.5. GERD: Continue with IV Pepcid CODE STATUS: Full code DVT prophylaxis: Heparin Advance care [id number] minutes: Home at discharge Time Spent Managing Pts Care (In Minutes): 55
[2021-10-24 06:01] LABS: Albumin 1.8 g/dL (3.4-5.0); Bilirubin Total 0.5 mg/dL (0.2-1.0); Magnesium 2.2 mg/dL (1.8-2.4); Phosphorus 2.4 mg/dL (2.5-4.9); Protein, Total 6.4 g/dL (6.4-8.2)
[2021-10-24] MEDS: D5.45NS W/KCL 20MEQ 20 MEQ/1,000 ML BAG IV SCH (08:00)
[2021-10-24] MEDS: HEPARIN 5000 UNIT/ML 1 ML VIAL SQ SCH ×2 (08:47→20:44)
[2021-10-24] MEDS: FAMOTIDINE 20 MG/2 ML VIAL IV SCH ×2 (08:47→20:43)
[2021-10-24] MEDS: POTASS/SODIUM PHOSPHATE 1 PKT POWD.PACK PO SCH ×3 (08:47→11:41)
[2021-10-24] MEDS ORDERED: TRAMADOL HCL 50 MG TAB PO PRN (09:55)
[2021-10-24] MEDS: carvediloL 25 MG TAB PO SCH ×2 (09:57→20:43)
[2021-10-24] MEDS: HYDROCODONE/APAP 7.5/325 MG TAB PO PRN ×3 (10:10→20:43)
[2021-10-24 10:47] LABS: Platelet Estimate INCR; Platelets, Giant PRESENT; White Blood Cell Scan OK (OK)
[2021-10-24 10:48] LABS: Anisocytosis 2+; Blood Morphology Comment NOTED (NOT SEEN); Hypochromasia 1+; Poikilocytosis SLIGHT
--- NOTE | 2021-10-24 12:56 | P.PN ---
Subjective Date of Service: 10/24/21 Primary Care Provider: unknown; Oncology-Dr. Mancera [facility] Oncology Chief Complaint: Abdominal pain Subjective: Improving (NGT removed, no nausea, emesis, mild bloating, did not work with PT, asking to get up now) Physical Examination - Vital Signs Temperature: 98.2 F Blood Pressure: 144/97 Pulse: 118 Respirations: 20 Pulse Ox (%): 98 - Physical Exam General: Alert, In no apparent distress, Cooperative Neck: Supple Respiratory: Clear to auscultation bilaterally, Normal air movement, Other (IS ~ 1000cc) Cardiovascular: Other (remains tachycardic, trending down slowly) Gastrointestinal: Other (soft, mild appropriate TTP, mild distention, IZZY serous, colostomy remains pink, viable, less edematous today) Assessment And Plan - Current Problems (Diagnosis) (1) Perforated sigmoid colon Current Visit: Yes Status: Acute Plan: Gen: Continue IV pain medication PRN , transition to PO norco, encourage PO CVS: tachycardia improving Pulm: improving, continue incentive spirometry GI: await more bowel function via colostomy, can anticipate function in colostomy bag as well as per rectum as patient did have stool burden in residual distal colon, serial exams, keep IZZY for now, NGT out, tolerating clears well FEN: decrease total IVF to 100 cc/hr, continue electrolyte replacement protocol, nutrition: advance diet soon Endo: continue insulin protocol Prophylaxis: DVT prophylaxis to continue with heparin Placement / Rehab: continue PT/OT ambulate with assist, can transfer to floor from surgical standpoint ID: continue antibiotics with zosynGHAZALA gonzalez 10/23, continue strict I/O Daily labs to continue Physician Review Additional Text: COVID: negative Initial CT scan: FINDINGS: Lower chest: No acute abnormality. Liver: No acute abnormality or suspicious lesions. Biliary: No biliary ductal dilatation. Stomach: No significant focal abnormality. Duodenum: No significant focal abnormality. Pancreas: No significant abnormality. Spleen: No significant abnormality. Adrenal: No suspicious lesions. Kidney/ureter: No hydronephrosis. No renal calculi. Too small to characterize and/or benign appearing renal lesions are noted. Retroperitoneum: No retroperitoneal adenopathy. Vascular: No aneurysm. Bowel: Known rectal mass is again identified. The sigmoid colon is thickened. There is likely a perforation of the sigmoid with reactive thickening of the distal small bowel. Multiple air-fluid levels are present.. Normal appendix. Peritoneum: Free air is present. A small though not well-defined fluid collection is present within the ileocolic mesentery. Umbilical hernia containing fluid and free air. Bladder: Grossly unremarkable. Reproductive: No adnexal masses. Bones: No acute fracture. Other: n/a IMPRESSION: Free air present consistent with perforation of a hollow viscus. Known rectal mass again identified with the suspected site of perforation at the mid to distal sigmoid, possibly as a result of obstruction due to the constricting rectal mass. No drainable abscess at this time. Recommend surgical consultation. Follow up CT scan: FINDINGS: Lower chest: Port tip in the right atrium. Cardiomegaly. Liver: No acute abnormality or suspicious lesions. Biliary: No biliary ductal dilatation. Stomach: No significant focal abnormality. Duodenum: No significant focal abnormality. Pancreas: No significant abnormality. Spleen: No significant abnormality. Adrenal: No suspicious lesions. Kidney/ureter: No hydronephrosis. No renal calculi. Too small to characterize and/or benign appearing renal lesions are noted. Retroperitoneum: No retroperitoneal adenopathy. Vascular: No aneurysm. Bowel: Increasing small bowel dilatation with multiple air-fluid levels. For example, a segment of small bowel in the left hemiabdomen previously measured 3 cm and now measures 3.6 cm. Re- demonstrated small bowel wall thickening at the ilium. Known rectal mass is similar to prior. Peritoneum: Free air volume is similar to yesterday. The free fluid volume is also similar. Umbilical hernia containing free air and fluid. Bladder: Contrast present within the bladder. Reproductive: No adnexal masses. Bones: No acute fracture. IMPRESSION: Similar volume of free air but increasing small bowel dilatation concerning for either worsening small bowel obstruction or ileus. The site of perforation is likely at the sigmoid. Surgery: Date: 10/20/21 16:54 Preoperative diagnosis: Perforated Colon Postoperative diagnosis: Perforated Colon Primary procedure: Exploratory Laparotomy with Transverse Loop Colostomy Secondary procedure: Primary Repair of Ventral Umbilical Hernia Other procedure(s): Liver punch biopsy Anesthesia: GETA Estimated blood loss: <20cc Specimen: Liver punch biopsy, hernia contents - omentum Findings: perforation @ sigmoid, liver nodule concerning for met, incar umb hernia Complications: None Drain(s): IZZY drain (10mm Flat IZZY) Transferred to: ICU Condition: Good KUB 10/22/2021: COMPARISON: Abdomen 1 View (KUB) dated 10/21/2021 FINDINGS: Supine portable single view of the chest and upper abdomen obtained following placement of an NG/ OG tube. The tip and side port of the tubing are in the left upper quadrant in the decompressed stomach. Prominent small bowel gas pattern is present. No free air or pneumatosis identifiable. IMPRESSION: NG/OG tube placement in good positioning. Pathology: DIAGNOSIS Liver, biopsy: - Small fragment of hepatic tissue with associated inflamed fibrovascular tissue - No malignancy identified Soft tissue, designated ventral umbilical hernia contents, herniorrhaphy: - Skin and fibroadipose tissue with acute inflammation Physical exam: General: Alert, Oriented x3, Cooperative HEENT: Atraumatic, Normocephalic, PERRLA. Dry mouth Neck: Supple, 2+ carotid pulse no bruit, JVD not distended Respiratory: Clear to auscultation bilaterally, Normal air movement. Patient remains on room air Cardiovascular: Mild tachycardia Gastrointestinal: Postsurgical changes noted. Colostomy in place. IZZY tube in place. Pain controlled. Musculoskeletal: No clubbing, No swelling Neurological: Normal speech, Normal strength at 5/5 x4 extr, Normal tone External genitalia: No edema, No lesions Impression: Abdominal pain secondary to mid to distal sigmoid perforation with small bowel dilation concerning for small bowel obstruction versus ileus complicated with history of rectal carcinoma with recent chemoradiation treatment status post exploratory laparotomy with transverse loop colostomy, primary repair of ventral umbilical hernia and liver punch biopsy Hypertension Chronic renal disease stage III Gout Chronic diastolic CHF Anemia of chronic disease with iron deficiency GERD Plan: Abdominal pain secondary to mid to distal sigmoid perforation with small bowel dilation concerning for small bowel obstruction versus ileus complicated with history of rectal carcinoma with recent chemoradiation treatment status post exploratory laparotomy with transverse loop colostomy, primary repair of ventral umbilical hernia and liver punch biopsy: Patient doing well postoperatively. Exploratory laparotomy with transverse loop colostomy performed. Other procedures included repair of ventral umbilical hernia and liver punch biopsy. Pathology from liver biopsy shows inflamed fibrovascular tissue. No malignancy identified. Tissue from ventral hernia shows acute inflammation. Pain seems to be well controlled. Patient now on clear liquid diet. Continue IV fluids. Continue IV Zosyn. Continue physical therapy. Patient to be transition to medical floor. Will restart his carvedilol medication for blood pressure. Continue to adjust medication. Overall stable and improved. Anticipate improvement over the next several days. Continue to discuss with surgery. I will turn the service over to the hospitalist team tomorrow. I will go over the plan of care with him. Hypertension: Restart carvedilol 25 mg 1 pill twice daily since the patient is on clear liquids. Discontinue IV metoprolol. Continue IV hydralazine as needed. Patient may require additional medication if blood pressure remains elevated. Chronic renal disease stage III: Continue IV fluids. Overall stable. Will monitor renal function closely. Continue with nephrology recommendations Gout: Overall stable. Will monitor closely. Chronic diastolic CHF: Continue with above plan of care. Will monitor input output closely. Continue to hold Lasix Anemia of chronic disease with iron deficiency: We will monitor hemoglobin. Transfuse if hemoglobin less than 7.5. GERD: Continue with IV Pepcid CODE STATUS: Full code DVT prophylaxis: Heparin Advance care [id number] minutes: Home at discharge
[2021-10-25] MEDS: D5.45NS W/KCL 20MEQ 20 MEQ/1,000 ML BAG IV SCH ×4 (01:07→16:00)
[2021-10-25] MEDS: PIPER TAZO 3.375 GM in NA CHLORIDE 0.9% 100 ML IV SCH ×3 (01:07→16:48)
[2021-10-25] MEDS: HYDROMORPHONE HCL 0.5 MG/0.5 ML INJ IV PRN ×4 (03:48→21:29)
[2021-10-25 06:55] LABS: Magnesium 2.2 mg/dL (1.8-2.4); Potassium 4.3 mmol/L (3.5-5.1)
[2021-10-25] MEDS: carvediloL 25 MG TAB PO SCH ×2 (10:16→21:28)
[2021-10-25] MEDS: FAMOTIDINE 20 MG/2 ML VIAL IV SCH ×2 (10:18→21:23)
[2021-10-25] MEDS: HEPARIN 5000 UNIT/ML 1 ML VIAL SQ SCH ×2 (10:19→21:23)
--- NOTE | 2021-10-25 19:02 | P.PN ---
Subjective Date of Service: 10/25/21 Subjective: No new changes, No C/O voiced, Improving Review of Systems 10-point ROS is otherwise unremarkable Physical Examination - Vital Signs Temperature: 99.5 F Blood Pressure: 136/87 Pulse: 124 Respirations: 18 Pulse Ox (%): 94 - Physical Exam General: Alert, In no apparent distress HEENT: Atraumatic, PERRLA, EOMI Neck: Supple, JVD not distended Respiratory: Clear to auscultation bilaterally, Normal air movement Cardiovascular: Regular rate/rhythm, Normal S1 S2 Gastrointestinal: Normal bowel sounds, No tenderness Musculoskeletal: No tenderness Integumentary: No rashes Neurological: Normal speech, Normal tone, Normal affect Lymphatics: No axilla or inguinal lymphadenopathy - Studies Microbiology Data (last 24 hrs): 10/19/21 15:20 Blood - Blood Aerobic Blood Culture - Final No growth in 5 days. 10/19/21 15:20 Blood - Blood Anaerobic Blood Culture - Final No growth in 5 days. Medications List Reviewed: Yes Assessment & Plan - Problems (Diagnosis) (1) S/P partial colectomy Current Visit: Yes Status: Acute (2) Colostomy care Current Visit: Yes Status: Acute (3) Perforated sigmoid colon Current Visit: Yes Status: Acute (4) Rectal cancer Current Visit: Yes Status: Acute (5) CKD (chronic kidney disease), stage III Onset Date: 08/05/14 Current Visit: No Status: Acute (6) Hyperlipidemia Onset Date: 08/05/14 Current Visit: No Status: Acute (7) Hypertension Onset Date: 08/05/14 Current Visit: No Status: Acute - Plan -Continue with IV fluids and IV antibiotic therapy -Management per surgery -Repeat abdominal films - Advance Directives Does patient have a Living Will: No Does patient have a Durable POA for Healthcare: No
[2021-10-26] MEDS: PIPER TAZO 3.375 GM in NA CHLORIDE 0.9% 100 ML IV SCH ×2 (01:14→08:19)
[2021-10-26] MEDS: HYDROMORPHONE HCL 0.5 MG/0.5 ML INJ IV PRN ×3 (01:15→06:54)
[2021-10-26] MEDS: HYDROCODONE/APAP 7.5/325 MG TAB PO PRN ×2 (02:09→08:17)
[2021-10-26 03:54] LABS: Absolute Lymphocytes (CBC) 0.2 K/uL (0.7-4.9); Hematocrit 29.6 % (39.6-49.0); Lymphocytes % 1.6 % (15.3-44.8); MPV 7.3 fL (7.6-11.3); RBC Red Blood Cell Count 4.03 M/uL (4.33-5.43)
[2021-10-26 04:05] LABS: Albumin 1.7 g/dL (3.4-5.0); Bilirubin Total 0.7 mg/dL (0.2-1.0); Magnesium 2.1 mg/dL (1.8-2.4); Potassium 4.3 mmol/L (3.5-5.1); Protein, Total 6.2 g/dL (6.4-8.2)
[2021-10-26 04:41] LABS: Anisocytosis 2+; Blood Morphology Comment NOTED (NOT SEEN); Ovalocytes 2+; Platelet Estimate ADEQ; Target Cells 1+
[2021-10-26] MEDS ORDERED: PIPERACIL/TAZO 3.375 GM VIAL IV ONE (08:06)
[2021-10-26] MEDS: D5.45NS W/KCL 20MEQ 20 MEQ/1,000 ML BAG IV SCH ×3 (08:14→16:00)
[2021-10-26] MEDS: carvediloL 25 MG TAB PO SCH ×2 (08:17→21:00)
[2021-10-26] MEDS: HEPARIN 5000 UNIT/ML 1 ML VIAL SQ SCH ×2 (08:18→23:25)
[2021-10-26] MEDS: FAMOTIDINE 20 MG/2 ML VIAL IV SCH ×2 (08:19→23:24)
--- NOTE | 2021-10-26 09:29 | RAD REPORT ---
EXAM DESCRIPTION: RAD - Abdomen 1 View (KUB) - 10/26/2021 8:14 am CLINICAL HISTORY: abdominal pain, abdominal distention Pain COMPARISON: Abdomen 1 View (KUB) dated 10/22/2021; Abdomen 1 View (KUB) dated 10/21/2021; Abdomen Pelv is Wo Contrast dated 10/20/2021 FINDINGS: Multiple dilated air-filled small bowel loops are again seen in the upper abdomen. Degree of small-bowel distention is improved since 10/21/2021. Moderate stool is seen in the right colon. Midline skin nina. Surgical drain is noted projecting over the pelvis. IMPRESSION: Moderate distended small-bowel loops filled with air in the abdomen favored to represent small bowel ileus over obstruction.
[2021-10-26] MEDS ORDERED: NA CHLORIDE 0.9% 1,000 ML ONE (11:21)
[2021-10-26] MEDS ORDERED: ALBUMIN HUMAN 25% 100 ML IV ONE (12:08)
[2021-10-26] MEDS: ERTAPENEM NA 1 GM in NA CHLORIDE 0.9% 100 ML IVPB SCH (13:57)
[2021-10-26] MEDS ORDERED: ERTAPENEM SODIUM 1 GM VIAL IVPB SCH (14:00)
[2021-10-26 14:18] LABS: Absolute Lymphocytes (CBC) 0.2 K/uL (0.7-4.9); Hematocrit 31.4 % (39.6-49.0); Lymphocytes % 1.2 % (15.3-44.8); MPV 7.5 fL (7.6-11.3); RBC Red Blood Cell Count 4.25 M/uL (4.33-5.43)
[2021-10-26 14:40] LABS: Potassium 4.8 mmol/L (3.5-5.1)
--- NOTE | 2021-10-26 15:03 | RAD REPORT ---
EXAM DESCRIPTION: CT - Abdomen Pelvis W Contrast - 10/26/2021 2:18 pm CLINICAL HISTORY: SBO/peritonitis?History of restricted rectal mass, repaired sigmoid perforation, t ransverse colon loop colostomy COMPARISON: Abdomen Pelvis W Contrast dated 10/19/2021; Abdomen Pelvis W Contrast dated 05/27/2021 TECHNIQUE: Biphasic, helical CT imaging of the abdomen and pelvis was performed following 100 ml non -ionic IV contrast. No oral contrast administered. All CT scans are performed using dose optimization technique as appropriate and may include automated exposure control or mA/KV adjustment according to patient size. FINDINGS: Since the prior examination the patient has had been surgical intervention with closure of the sigmoid perforation, placement of a IZZY drain and creation of a right transverse colon loop colos fredy. No suspicious findings in the lung bases. Cardiac silhouette is prominent with no pericardial effusio n. The liver, spleen, and pancreas show no suspicious findings. Gallbladder and biliary tree are also wi thout suspicious finding. Symmetric renal function is seen with no hydronephrosis or suspicious renal mass. No pyelonephritis o r acute parenchymal process. Bladder is mostly contracted. Air is present in the lumen of the bladder not unexpected if the patient has had recent placement and removal of a Damon catheter. No adrenal a bnormalities. Stomach is significantly distended by air and fluid. No gastric outlet obstruction, gastric wall thic kening or mass. No dilation of the duodenum. From the ligament of Treitz to the mid ileum level there are multiple distended and dilated small bowel loops. The distal small bowel from mid ileum to ileoc ecal valve is normal in diameter. A specific site of obstruction is not identified. The decompressed distal ileum does show wall thickening and edema change. Ileus is favored for the small bowel dilatat ion though developing obstruction is possible. Moderate amount of stool is present from the cecum to the proximal limb of the colostomy. No signific ant findings are seen. The distal limb of the colostomy is mildly edematous. There is a moderate amou nt of stool still present within the lumen of the colon from the right transverse colon to the sigmoi d colon. [place] of the sigmoid colon are thickened and edematous. The sigmoid colon is dilated to 4 cm from the proximal sigmoid to the rectal mass level. Moderate amount of stool is present distal to th e rectal mass. In the lower right abdomen encircled by the IZZY drain there is a 5.5 x 3.5 centimeter extraluminal col lection of stool. This has probably extended through the sigmoid perforation site. At the superior ma rgin of this extraluminal stool is a 5 x 4 centimeter thin-walled air fluid collection. This is surro unded by bowel and not amenable to percutaneous access. Free air and free fluid are present in the peritoneal cavity. There is no drainable fluid collection. No measurable quantity of solid stool other than the focal collection that has been detailed. Subcutaneous fatty tissues are edematous. No bulky lymphadenopathy. No suspicious bony findings. IMPRESSION: Sigmoid colon is distended to 4 cm by a moderate volume of stool. Abutting the sigmoid c olon is a 5.5 x 4.5 centimeter collection of solid stool that is believed to be extraluminal rather t zeng in tortuous sigmoid. At the superior margin of this extraluminal stool collection is a 5 x 4 cent imeter air-fluid level thin-walled collection. The solid stool and air fluid collection in the lower abdomen are surrounded by bowel and not amenabl e to a percutaneous access. Multiple dilated small bowel loops from ligament of Treitz to the mid ileum. A specific site of trans ition is not seen. The mid ileum ileocecal valve shows wall thickening and edema with no dilatation. Ileus is currently favored over small bowel obstruction but ongoing monitoring can be performed. Prominent air and fluid dilation of the stomach. No gastric outlet obstruction.
[2021-10-26] MEDS ORDERED: Ringers Lactate 1,000 ML IV ONE (16:09)
[2021-10-26] MEDS ORDERED: SUCCINYLCHOLINE 20 MG/ML (10 ML) IV ONE (16:10)
[2021-10-26] MEDS ORDERED: EPHEDRINE SULF 50 MG/ML VIAL ONE (16:14)
[2021-10-26] MEDS ORDERED: ETOMIDATE 20 MG/10 ML VIAL IV ONE (16:15)
[2021-10-26] MEDS ORDERED: Phenylephrine HCl 10 MG/ML 1 ML VIAL ONE (16:15)
[2021-10-26] MEDS ORDERED: FENTANYL CITR 100 MCG/2 ML ONE (16:15)
[2021-10-26] MEDS ORDERED: KETAMINE HCL 500 MG/5 ML VIAL ONE (16:17)
[2021-10-26] MEDS ORDERED: NA CHLORIDE 0.9% 50 ML ONE (16:20)
[2021-10-26] MEDS ORDERED: ROCURONIUM 50 MG/5 ML VIAL IV ONE ×3 (16:21→19:45)
[2021-10-26] MEDS: NS 0.9% IV SCH ×3 (17:00→20:52)
[2021-10-26] MEDS ORDERED: ETOMIDATE 20 MG/10 ML VIAL IV SCH (17:00)
[2021-10-26] MEDS: NOREPINEPHRINE IV SCH ×3 (17:00→20:52)
[2021-10-26] MEDS ORDERED: NA CHLORIDE 0.9% 250 ML ONE (17:41)
[2021-10-26] MEDS: Ringers Lactate 1,000 ML IV ONE ×3 (17:58→18:20)
[2021-10-26] MEDS: NOREPINEPHRINE 4 MG in D5W 250 ML IV SCH (18:00)
[2021-10-26] MEDS ORDERED: NA CHLORIDE 0.9% 0 ML ONE (19:25)
--- NOTE | 2021-10-26 20:31 | P.OP ---
Stone And Plate Preparer Apprentice: Peggy Enriquez Preoperative diagnosis: Abdominal Abscess / Infection Postoperative diagnosis: Abdominal Abscess / Infection Primary procedure: Exploratory Laparotomy with End Sigmoid Colostomy Secondary procedure: Partial Sigmoid Colectomy, Abdominal Washout Other procedure(s): Drainage of abdominal / pelvic abscess Anesthesia: GETA Estimated blood loss: <100cc Specimen: partial sigmoid colectomy Findings: large firm dry stool in pelvis, abdominal abscesses, Complications: None Drain(s): IZZY drain (10mm Flat IZZY) Transferred to: ICU Condition: Serious
--- NOTE | 2021-10-27 00:17 | OP ---
Date of Procedure: 10/26/2021 Surgeon: Yolande Fernández MD, Brief History Of Present Illness: The patient is a 56-year-old male with a history of rectal cancer, receiving 17 rounds of chemoradiation, who presented a little over a week ago with intraabdominal co ntamination consistent with sigmoid perforation. He was taken to the operating room shortly after ad mission for an exploratory laparotomy, transverse loop colostomy was created as the patient had signi ficant radiation enteritis and effect to the small bowel and there was significant contamination to t he left side of his colon, as such a right transverse loop colostomy was created to allow for fecal d iversion as well as to decompress his distal colon should his rectal cancer cause him obstruction. T herefore, the bowel should have been able to vent at that time. He additionally had the sigmoid perf oration oversewn and a IZZY drain was placed alongside this. He improved significantly over the course of the week. However, earlier today, he had several he states 4 large substantive bowel movements. A firm, hard stool passed per his rectum. He did pass some fluid and affluent from his loop colosto my as well. However, shortly thereafter, he started showing signs of possible sepsis with hypotensio n, tachycardia, increasing abdominal pain, increasing abdominal distention, and a KUB was performed a nd ultimately showed that he had an ileus. As such, I opted to perform a CT scan, which I reviewed w ith the radiologist personally and found that the patient likely had an intraabdominal contamination from likely retained stool that had passed and reopened his sigmoid perforation. He also had evidenc e of an ileus of the small bowel, which continued to be present. There appeared to be intraabdominal contamination. As such, I opted to bring the patient back to the operating room for the above-state d issues. I discussed the risks, benefits, and alternatives of exploratory laparotomy, creation of a n additional colostomy diversion, possible abdominal washout with multiple recurrent trips to the OR as he likely had significant intraabdominal contamination. The patient agreed to proceed as indicate d. I discussed also with his stepfather who was at the bedside and they agreed to proceed. Preoperative Diagnosis: Abdominal infection/abdominal abscess. Postoperative Diagnosis: Abdominal infection/abdominal abscess. Procedures Performed: 1.Exploratory laparotomy. 2.Partial sigmoid colectomy. 3.Creation of end sigmoid colostomy. 4.Abdominal washout. 5.Drainage of abdominal and pelvic abscesses. 6.Replacement of 10 mm IZZY drain. Anesthesia: General endotracheal. Estimated Blood Loss: 100 cc. Specimen: Partial sigmoid colectomy. Findings: Large firm dry stool noted in the pelvis adjacent to the sigmoid perforation, causing sign ificant intraabdominal contamination with abdominal abscesses throughout the entire abdominal compart ment. Abdominal abscesses were predominantly interloop throughout the pelvis and the abdomen. Complications: None immediately. Drains: A IZZY 10 mm flat IZZY drain repositioned in the right lower quadrant and with the loop passing by his residual rectal stump as well as passing up to the new sigmoid colostomy created. Disposition: The patient transferred to ICU in stable/serious condition. Procedure In Detail: After informed consent was obtained as described above, the patient was brought to the operating room. SCDs were in place prior to induction of anesthesia. After anesthesia was p erformed, the patient was prepped and draped in the usual sterile fashion. After adequate anesthesia was maintained, I opened the previously placed nina after the patient had a significant prep plac ed and protection of the loop colostomy in the right upper quadrant was performed. After the nina were removed, I found the previously placed PDS suture and grabbed this, elevated, and opened this t o allow for opening of the abdomen in its entirety. There was serous fluid in the abdomen at this po int. Continued thorough exploratory laparotomy was performed at this point, which discovered multipl e interloop abscesses and gross intraabdominal contamination. This was washed out and I turned my at tention immediately to the sigmoid colon where several firm, fixed, hard stool balls were evident as they had torn through the sigmoid colon near the site of the previous perforation, although this was significantly larger at this time. As such, I removed all of the stool burden and over sewed the kevin mp to minimize contamination at this point. I then irrigated the abdomen copiously at this point and cleaned out all interloop abscesses. I ran the entire small bowel from the ileocecal valve to the l igament of Treitz. Multiple interloop abscesses were appreciated. There was a significant inflammat ory rind over the entire abdomen, similar to previous appearance. Radiation effects were also eviden t once again on the small bowel, predominantly on the distal small bowel near the ileocecal valve ext ending approximately 15-20 cm proximal from there. I checked the position of the NG tube, which was adequate at this point. I continued and irrigated copiously with warm saline the perihepatic spaces, the perisplenic spaces, right and left colic gutters, and down into the pelvis. At this point, I op yolande to resect the perforated sigmoid colon for a small segment to allow for reconstruction in the fut ure. At this point, I created a mesenteric window using electrocautery and blunt dissection after ta tammy down the white line of Toldt and mobilizing the colon. I mobilized the medial peritoneal tissue s with electrocautery also to allow for adequate mobilization. After I was able to create a mesenter ic window, I then brought in the TA 60 green load and fired it across the sigmoid colon between the r ectosigmoid area. I helped to maintain source control at this point. I then mobilized the distal si gmoid stump down to the rectal confluence. After I was able to mobilize this aspect of the sigmoid c olon. I then brought the TA 60 green load back across and fired it distal to the perforation. As camacho ch, the proximal and distal aspects of this sigmoid colon where the perforation was evident were rese cted. I then removed the small piece of sigmoid colon and sent off for pathologic examination. At t his point, I irrigated the abdomen copiously as source control had been achieved at this point and ir rigated the abdomen with approximately 4 L of warm saline to ensure no additional abscesses or contam ination was evident. At this point, I removed the previously placed drain, irrigated this, which was placed in the left lower quadrant. I irrigated this area out and began mobilizing the sigmoid colon by further dissecting along the white line of Toldt. After the sigmoid colon was mobilized adequate ly, I then found that it was adequately against the abdominal wall for a left lower quadrant end colo stomy. At this point, I examined the rectal stump and decided to place stay sutures to allow for vis ualization and identification and future operations for reanastomosis. At this point, I performed a baseball stitch using a 0 Prolene suture and left a tail on each end of the rectal stump to identify the right and left lateral aspects of the rectal stump with a long approximately 4 cm Prolene tail on each side. Therefore, two tails were present. At this point, I inspected the area. Good hemostasi s was achieved. I then found an area in the left lower quadrant, which was adequate for placement of the left colon/sigmoid end colostomy. At this point, I grasped the skin with a Patricia clamp, cut th rough the skin using a 10-blade circumferentially to allow for a donut of skin to be removed. I then dissected to the anterior rectus sheath. This was opened in a cruciate type incision, spread the mu scle fibers down to expose the peritoneum, opened the peritoneum in a cruciate type area. I then thi nned the sigmoid colon by removing some of the epiploic appendages, which were evident on the lateral aspects. These were quite inflamed at this point and necessary to slightly increase the colostomy s ize to allow for 3 fingers to pass through. I grabbed Rosanne's and passed the colostomy through it, stayed in a tension-free manner for the remainder of the operation. I irrigated the abdomen once ag ain, verified the position of the NG tube one last time, and then brought a 10 mm flat IZZY drain along the rectal stump and passing it up where the colostomy had been passed through the left lower quadra nt and where there was significant intraabdominal contamination. It was brought out through a separa te stab incision in the right lower quadrant, secured it to the skin using a 2-0 nylon suture. I the n turned my attention back to the abdomen and ensured that good hemostasis was achieved. No addition al hemostat was required. At this point, the colostomy remained in good position. I then opted to r eplace the omentum, which was very thin and alveolar to the midline to allow for protection. A FISH was brought into the abdomen to assist with closure and the abdomen was closed after completely paral yzing the patient with a running #1 looped PDS suture with good apposition of the tissues. I then co piously irrigated the skin once again and the left lower quadrant previously placed 10 mm drain site and I closed the midline with interrupted nina, and a sterile dressing was placed over the top. A t this point, I closed the left lower quadrant previous drain site with a 2 interrupted nylon sutures as they were in close proximity to the colostomy. At this point, I then opted to mature the colosto my at the bedside. I performed a Katalina type colostomy maturation using 3-0 Vicryl sutures, and the ostomy was pink and viable and Katalina'd quite nicely. At this point, ostomy appliances were applied. The patient tolerated the procedure well without complication and was transferred to the ICU in serious condition. All counts were correct at the end of the case. JOLENE/BRUCE Voice ID: [id number] Report ID: [id number]
[2021-10-27] MEDS: HYDROMORPHONE HCL 0.5 MG/0.5 ML INJ IV PRN ×2 (00:32→03:25)
[2021-10-27] MEDS: D5.45NS W/KCL 20MEQ 20 MEQ/1,000 ML BAG IV SCH (03:23)
[2021-10-27] MEDS ORDERED: HYDROMORPHONE HCL 0.5 MG/0.5 ML INJ IV PRN (04:01)
[2021-10-27 06:11] LABS: Absolute Lymphocytes (CBC) 0.5 K/uL (0.7-4.9); Hematocrit 30.7 % (39.6-49.0); Lymphocytes % 3.6 % (15.3-44.8); MPV 7.9 fL (7.6-11.3); RBC Red Blood Cell Count 4.15 M/uL (4.33-5.43)
[2021-10-27 06:36] LABS: Potassium 5.7 mmol/L (3.5-5.1)
[2021-10-27 06:58] LABS: Anisocytosis 2+; Blood Morphology Comment NOTED (NOT SEEN); Platelet Estimate ADEQ; White Blood Cell Scan OK (OK)
[2021-10-27 06:59] LABS: Hypochromasia 1+
[2021-10-27] MEDS: carvediloL 25 MG TAB PO SCH ×2 (07:20→20:12)
[2021-10-27] MEDS: FAMOTIDINE 20 MG/2 ML VIAL IV SCH ×2 (07:58→20:12)
[2021-10-27] MEDS: HEPARIN 5000 UNIT/ML 1 ML VIAL SQ SCH ×2 (07:58→20:12)
[2021-10-27] MEDS ORDERED: D5 0.9 NS 1,000 ML IV SCH (08:00)
[2021-10-27] MEDS: D5 0.9 NS 1,000 ML IV SCH ×2 (08:43→17:08)
[2021-10-27] MEDS ORDERED: NA CHLORIDE 0.9% 500 ML IV ONE ×2 (08:43→12:22)
[2021-10-27] MEDS ORDERED: GLUCAGON 1 MG/VIAL IM PRN (08:44)
[2021-10-27] MEDS ORDERED: D50W 25 GM/50 ML SYRINGE IV PRN (08:44)
--- NOTE | 2021-10-27 09:20 | P.PN ---
Date of Service: 10/26/21 Subjective Subjective: Rapid response was called because of hypotension. Review of Systems 10-point ROS is otherwise unremarkable Physical Examination - Vital Signs Reviewed - Physical Exam General: Alert, In no apparent distress Respiratory: Clear to auscultation bilaterally, Normal air movement Cardiovascular: Regular rate/rhythm, Normal S1 S2 Gastrointestinal: Normal bowel sounds, positive distention & tenderness; colostomy with stoma Neurological: Normal speech, Normal tone, Normal affect Assessment & Plan - Problems (Diagnosis) (1) S/P partial colectomy Current Visit: Yes Status: Acute (2) Colostomy care Current Visit: Yes Status: Acute (3) Perforated sigmoid colon Current Visit: Yes Status: Acute (4) Rectal cancer Current Visit: Yes Status: Acute (5) CKD (chronic kidney disease), stage III Onset Date: 08/05/14 Current Visit: No Status: Acute (6) Hyperlipidemia Onset Date: 08/05/14 Current Visit: No Status: Acute (7) Hypertension Onset Date: 08/05/14 Current Visit: No Status: Acute - Plan -Transfer to ICU -Bolus IV fluids -Continue with IV fluids and IV antibiotic therapy -Management per surgery-possibly going to the OR -Repeat CT - Advance Directives Does patient have a Living Will: No Does patient have a Durable POA for Healthcare: No
--- NOTE | 2021-10-27 09:23 | P.PN ---
Date of Service: 10/27/21 Subjective Subjective: Patient remains intubated. Status post surgery. Continue with aggressive IV hydration and vasopressors as needed. Critical care consult pending. Review of Systems 10-point ROS is otherwise unremarkable Physical Examination - Vital Signs Reviewed - Physical Exam General: Alert, In no apparent distress; remains intubated and sedated Respiratory: Clear to auscultation bilaterally, Normal air movement Cardiovascular: Regular rate/rhythm, Normal S1 S2 Gastrointestinal: Normal bowel sounds, positive distention & tenderness; colostomy with stoma Neurological: Normal speech, Normal tone, Normal affect Assessment & Plan - Problems (Diagnosis) (1) S/P partial colectomy Current Visit: Yes Status: Acute (2) Colostomy care Current Visit: Yes Status: Acute (3) Perforated sigmoid colon Current Visit: Yes Status: Acute (4) Rectal cancer Current Visit: Yes Status: Acute (5) CKD (chronic kidney disease), stage III Onset Date: 08/05/14 Current Visit: No Status: Acute (6) Hyperlipidemia Onset Date: 08/05/14 Current Visit: No Status: Acute (7) Hypertension Onset Date: 08/05/14 Current Visit: No Status: Acute - Plan -Continue to monitor in ICU setting -Bolus IV fluids and weaning off of vasopressors -Continue with IV fluids and IV antibiotic therapy -s/p repeat surgery -Repeat CT completed-expansion -Vent management per pulmonary - Advance Directives Does patient have a Living Will: No Does patient have a Durable POA for Healthcare: No
[2021-10-27] MEDS: NOREPINEPHRINE 4 MG in D5W 250 ML IV SCH ×3 (10:06→23:56)
[2021-10-27] MEDS: INSULIN -REGULAR HUMAN 50 UNIT/0.5 ML ML SQ SCH ×3 (12:00→23:53)
[2021-10-27] MEDS ORDERED: FUROSEMIDE 40 MG/4 ML VIAL IV ONE (12:23)
--- NOTE | 2021-10-27 12:27 | P.PN ---
Subjective Date of Service: 10/27/21 Primary Care Provider: unknown; Oncology-Dr. [facility] Oncology Chief Complaint: Abdominal pain Subjective: Worsening (had hypotensive episode and eveloped hyperkalemia and worsening renal failure. cr is now 2.8 and potassium is 5.7 this am.) Physical Examination - Vital Signs Temperature: 99.5 F Blood Pressure: 103/68 Pulse: 98 Respirations: 18 Pulse Ox (%): 94 - Physical Exam General: Alert HEENT: Atraumatic, Normocephalic Neck: Supple Respiratory: Normal air movement Cardiovascular: No edema Gastrointestinal: Soft and benign, Other (colostomy noted.) Neurological: Cranial nerves 3-12 intact - Studies Medications List Reviewed: Yes Assessment And Plan - Plan 1. JANET vs CKD: He has repeat bowel perforation and is post repair again today. cr is worse today at 2.8 and potassium is 5.7. we will continue IV fluid for hydration and monitoring of vitals. we will give bolus dose of 500ml NS and lasix 40mg to force diurese and waste potassium. we will dose meds for eGFR and avoid nephrotoxins. we will continue to monitor renal function closely. 2. Perforated colon: s/p repair with colostomy creation. surgeon following. 3.Hypertension: Now hypotensive. on vasopressors now. we will follow and aim for MAP of 65mmhg or more. 4. Hyperkalemia: Potassium is 5.7 this am. deemed due to worsening renal function. we will force diurese and monitor potassium level closely. Physician Review Additional Text: COVID: negative Initial CT scan: FINDINGS: Lower chest: No acute abnormality. Liver: No acute abnormality or suspicious lesions. Biliary: No biliary ductal dilatation. Stomach: No significant focal abnormality. Duodenum: No significant focal abnormality. Pancreas: No significant abnormality. Spleen: No significant abnormality. Adrenal: No suspicious lesions. Kidney/ureter: No hydronephrosis. No renal calculi. Too small to characterize and/or benign appearing renal lesions are noted. Retroperitoneum: No retroperitoneal adenopathy. Vascular: No aneurysm. Bowel: Known rectal mass is again identified. The sigmoid colon is thickened. There is likely a perforation of the sigmoid with reactive thickening of the distal small bowel. Multiple air-fluid levels are present.. Normal appendix. Peritoneum: Free air is present. A small though not well-defined fluid collection is present within the ileocolic mesentery. Umbilical hernia containing fluid and free air. Bladder: Grossly unremarkable. Reproductive: No adnexal masses. Bones: No acute fracture. Other: n/a IMPRESSION: Free air present consistent with perforation of a hollow viscus. Known rectal mass again identified with the suspected site of perforation at the mid to distal sigmoid, possibly as a result of obstruction due to the constricting rectal mass. No drainable abscess at this time. Recommend surgical consultation. Follow up CT scan: FINDINGS: Lower chest: Port tip in the right atrium. Cardiomegaly. Liver: No acute abnormality or suspicious lesions. Biliary: No biliary ductal dilatation. Stomach: No significant focal abnormality. Duodenum: No significant focal abnormality. Pancreas: No significant abnormality. Spleen: No significant abnormality. Adrenal: No suspicious lesions. Kidney/ureter: No hydronephrosis. No renal calculi. Too small to characterize an d/or benign appearing renal lesions are noted. Retroperitoneum: No retroperitoneal adenopathy. Vascular: No aneurysm. Bowel: Increasing small bowel dilatation with multiple air-fluid levels. For example, a segment of small bowel in the left hemiabdomen previously measured 3 cm and now measures 3.6 cm. Re- demonstrated small bowel wall thickening at the ilium. Known rectal mass is similar to prior. Peritoneum: Free air volume is similar to yesterday. The free fluid volume is also similar. Umbilical hernia containing free air and fluid. Bladder: Contrast present within the bladder. Reproductive: No adnexal masses. Bones: No acute fracture. IMPRESSION: Similar volume of free air but increasing small bowel dilatation concerning for either worsening small bowel obstruction or ileus. The site of perforation is likely at the sigmoid. Surgery: Date: 10/20/21 16:54 Preoperative diagnosis: Perforated Colon Postoperative diagnosis: Perforated Colon Primary procedure: Exploratory Laparotomy with Transverse Loop Colostomy Secondary procedure: Primary Repair of Ventral Umbilical Hernia Other procedure(s): Liver punch biopsy Anesthesia: GETA Estimated blood loss: <20cc Specimen: Liver punch biopsy, hernia contents - omentum Findings: perforation @ sigmoid, liver nodule concerning for met, incar umb hernia Complications: None Drain(s): IZZY drain (10mm Flat IZZY) Transferred to: ICU Condition: Good KUB 10/22/2021: COMPARISON: Abdomen 1 View (KUB) dated 10/21/2021 FINDINGS: Supine portable single view of the chest and upper abdomen obtained following placement of an NG/ OG tube. The tip and side port of the tubing are in the left upper quadrant in the decompressed stomach. Prominent small bowel gas pattern is present. No free air or pneumatosis identifiable. IMPRESSION: NG/OG tube placement in good positioning. Pathology: DIAGNOSIS Liver, biopsy: - Small fragment of hepatic tissue with associated inflamed fibrovascular tissue - No malignancy identified Soft tissue, designated ventral umbilical hernia contents, herniorrhaphy: - Skin and fibroadipose tissue with acute inflammation Physical exam: General: Alert, Oriented x3, Cooperative HEENT: Atraumatic, Normocephalic, PERRLA. Dry mouth Neck: Supple, 2+ carotid pulse no bruit, JVD not distended Respiratory: Clear to auscultation bilaterally, Normal air movement. Patient remains on room air Cardiovascular: Mild tachycardia Gastrointestinal: Postsurgical changes noted. Colostomy in place. IZZY tube in place. Pain controlled. Musculoskeletal: No clubbing, No swelling Neurological: Normal speech, Normal strength at 5/5 x4 extr, Normal tone External genitalia: No edema, No lesions Impression: Abdominal pain secondary to mid to distal sigmoid perforation with small bowel dilation concerning for small bowel obstruction versus ileus complicated with history of rectal carcinoma with recent chemoradiation treatment status post exploratory laparotomy with transverse loop colostomy, primary repair of ventral umbilical hernia and liver punch biopsy Hypertension Chronic renal disease stage III Gout Chronic diastolic CHF Anemia of chronic disease with iron deficiency GERD Plan: Abdominal pain secondary to mid to distal sigmoid perforation with small bowel dilation concerning for small bowel obstruction versus ileus complicated with history of rectal carcinoma with recent chemoradiation treatment status post exploratory laparotomy with transverse loop colostomy, primary repair of ventral umbilical hernia and liver punch biopsy: Patient doing well postoperatively. Exploratory laparotomy with transverse loop colostomy performed. Other procedures included repair of ventral umbilical hernia and liver punch biopsy. Pathology from liver biopsy shows inflamed fibrovascular tissue. No malignancy identified. Tissue from ventral hernia shows acute inflammation. Pain seems to be well controlled. Patient now on clear liquid diet. Continue IV fluids. Continue IV Zosyn. Continue physical therapy. Patient to be transition to medical floor. Will restart his carvedilol medication for blood pressure. Continue to adjust medication. Overall stable and improved. Anticipate improvement over the next several days. Continue to discuss with surgery. I will turn the service over to the hospitalist team tomorrow. I will go over the plan of care with him. Hypertension: Restart carvedilol 25 mg 1 pill twice daily since the patient is on clear liquids. Discontinue IV metoprolol. Continue IV hydralazine as needed. Patient may require additional medication if blood pressure remains elevated. Chronic renal disease stage III: Continue IV fluids. Overall stable. Will monitor renal function closely. Continue with nephrology recommendations Gout: Overall stable. Will monitor closely. Chronic diastolic CHF: Continue with above plan of care. Will monitor input output closely. Continue to hold Lasix Anemia of chronic disease with iron deficiency: We will monitor hemoglobin. Transfuse if hemoglobin less than 7.5. GERD: Continue with IV Pepcid CODE STATUS: Full code DVT prophylaxis: Heparin Advance care [id number] minutes: Home at discharge
[2021-10-27] MEDS: FENTANYL CITR 100 MCG/2 ML IV PRN ×2 (13:08→20:11)
--- NOTE | 2021-10-27 13:13 | RAD REPORT ---
EXAM DESCRIPTION: RAD - Chest Single View - 10/27/2021 12:58 pm CLINICAL HISTORY: PICC placement COMPARISON: Abdomen 1 View (KUB) dated 10/26/2021; Abdomen 1 View (KUB) dated 10/22/2021; Abdomen 1 Vie w (KUB) dated 10/21/2021; CHEST SINGLE VIEW dated 11/18/2014 FINDINGS: Lines: Endotracheal tube above the omar in satisfactory position. Port-A-Cath noted. Lef t subclavian approach PICC with tip overlying the right atrium. NG tube below the diaphragm. Lungs: No evidence of edema or pneumonia. Pleural: No significant pleural effusions or pneumothorax. Cardiac: Mild enlargement of the cardiopericardial silhouette. Bones: No acute fractures. Other: IMPRESSION: No acute cardiopulmonary disease. Left subclavian approach PICC with tip overlying the r ight atrium. If a SVC/ superior cavoatrial position is desired, could retract by 2 cm.
[2021-10-27] MEDS ORDERED: HALOPERIDOL LACT 5 MG/ML INJ IV PRN (13:54)
[2021-10-27] MEDS: MIDAZOLAM HCL 2 MG/2 ML INJ IV PRN (14:26)
[2021-10-27] MEDS: ERTAPENEM NA 1 GM in NA CHLORIDE 0.9% 100 ML IVPB SCH (14:29)
[2021-10-27] MEDS: AA 5%/D20W/ELECTROLYTES-TPN 2,000 ML, Lipids 20% 250 ML with MULTIVITAMINS INJ 10 ML IV SCH ×3 (18:17)
[2021-10-27] MEDS: LORazepam 2 MG/ML VIAL IV PRN (20:21)
[2021-10-27] MEDS: PIPER TAZO 3.375 GM in NA CHLORIDE 0.9% 100 ML IV SCH (23:57)
[2021-10-28] MEDS: D5 0.9 NS 1,000 ML IV SCH ×2 (01:12→08:43)
[2021-10-28] MEDS: LORazepam 2 MG/ML VIAL IV PRN ×4 (04:19→21:27)
[2021-10-28 05:18] LABS: Absolute Lymphocytes (CBC) 0.6 K/uL (0.7-4.9); Hematocrit 23.6 % (39.6-49.0); MPV 7.7 fL (7.6-11.3); RBC Red Blood Cell Count 3.24 M/uL (4.33-5.43)
[2021-10-28] MEDS: INSULIN -REGULAR HUMAN 50 UNIT/0.5 ML ML SQ SCH ×3 (05:32→18:00)
[2021-10-28 05:34] LABS: Magnesium 2.6 mg/dL (1.8-2.4); Phosphorus 3.1 mg/dL (2.5-4.9); Potassium 4.5 mmol/L (3.5-5.1)
[2021-10-28 05:56] LABS: Blood Gas Oxyhemoglobin 96.3 % (94-97); Blood O2 Saturation 98.6 % (92-98.5)
[2021-10-28] MEDS: carvediloL 25 MG TAB PO SCH (08:35)
[2021-10-28] MEDS: PIPER TAZO 3.375 GM in NA CHLORIDE 0.9% 100 ML IV SCH (08:39)
[2021-10-28] MEDS: FAMOTIDINE 20 MG/2 ML VIAL IV SCH ×2 (08:41→21:51)
[2021-10-28] MEDS: HEPARIN 5000 UNIT/ML 1 ML VIAL SQ SCH ×2 (08:41→21:51)
--- NOTE | 2021-10-28 08:42 | RAD REPORT ---
EXAM DESCRIPTION: RAD - Chest Single View - 10/28/2021 6:19 am CLINICAL HISTORY: ETT Chest pain. COMPARISON: Chest Single View dated 10/27/2021; Abdomen 1 View (KUB) dated 10/26/2021; Abdomen 1 View (KUB) dated 10/22/2021; Abdomen 1 View (KUB) dated 10/21/2021 FINDINGS: Portable technique limits examination quality. Tip of the ET tube is at the level of the superior articular arch, considered appropriate position. R ight port catheter has tip in the SVC. Left-sided PICC line has tip in the SVC. No significant change in lung aeration is seen since yesterday's study.The heart is upper limit of normal.
--- NOTE | 2021-10-28 08:56 | P.CNS ---
Date of Consult: 10/28/21 Primary Care Provider: unknown; [facility] Chief Complaint: Respiratory failure shock History of Present Illness: Patient is 56 years of age he recently underwent sigmoid colostomy abdominal washout and multiple abdominal abscesses he was treated for rectal cancer developed radiation enteritis and also developed again a perforated bowel got another colostomy currently on a ventilator on minimal Levophed IV fluids oxygenation satisfactory alert responsive sedation Allergies No Known Allergies Allergy (Verified 05/28/21 17:37) Home Medications: Carvedilol [Coreg] 25 mg PO BID 10/22/21 Furosemide [Lasix] 40 mg PO DAILY 10/22/21 - Past Medical/Surgical History Diabetic: No -: chf -: htn -: hyperlipidemia -: rectal cancer Dx January 2021 -: Chemo-Port placement - Family History Mother History Unknown: Yes Medical History: Heart disease, Hypertension, Other (see notes) Notes: CHF Father Medical History: Diabetes - Social History Smoking Status: Never smoker Alcohol use: No CD- Drugs: No Caffeine use: Yes Place of Residence: Home Review of Systems is unable to be obtained Physical Examination Temp Pulse Resp BP Pulse Ox 98.4 F 101 H 24 H 110/71 100 10/28/21 00:00 10/28/21 06:45 10/28/21 06:45 10/28/21 06:45 10/28/21 06:45 General: Alert Respiratory: Clear to auscultation bilaterally, Diminished Cardiovascular: No edema, Regular rate/rhythm - Problems (1) Postoperative shock Current Visit: Yes Status: Acute Plan: Patient is currently in postoperative shock continue to wean off the Levophed continue with IV fluids for now he is on TPN we will decrease rate of IV fluids patient is mildly anemic renal function is improving White count is elevated to meropenem add vancomycin wean off Levophed continue with IV fluid Qualifiers: Postoperative shock type: septic
[2021-10-28] MEDS ORDERED: VANCOMYCIN 1.75 GM in NA CHLORIDE 0.9% 500 ML IVPB SCH (10:00)
--- NOTE | 2021-10-28 10:50 | P.PN ---
Subjective Date of Service: 10/28/21 Primary Care Provider: unknown; Oncology-Dr. Mancera [facility] On[facility] Chief Complaint: Respiratory failure shock Subjective: No new changes (still has some renal function abnormality but his cr is stabilizing.) Review of Systems is unable to be obtained Physical Examination - Vital Signs Temperature: 98.1 F Blood Pressure: 111/73 Pulse: 106 Respirations: 25 Pulse Ox (%): 100 - Physical Exam General: Other (sedated.) HEENT: Atraumatic, Normocephalic Neck: Supple Respiratory: Normal air movement Cardiovascular: Regular rate/rhythm, Normal S1 S2 Gastrointestinal: Soft and benign Musculoskeletal: No swelling Neurological: Other (sedated.) - Studies Medications List Reviewed: Yes Assessment And Plan - Plan 1. JANET vs CKD: Responded well to lasix forced diuresis. cr is better at 2.50 and his urine output is now good at 1500ml in the last 24hrs. we will follow his renal labs. we will continue IV fluid. we will continue to monitor renal function closely. 2. Perforated colon: s/p repair with colostomy creation. surgeon following. 3.Hypertension: BP is better and he is off vasopressors. we will follow vitals closely. 4. Hyperkalemia: Resolved. Potassium is better at 4.5. we will continue routine care. we will monitor daily labs. Physician Review Additional Text: COVID: negative Initial CT scan: FINDINGS: Lower chest: No acute abnormality. Liver: No acute abnormality or suspicious lesions. Biliary: No biliary ductal dilatation. Stomach: No significant focal abnormality. Duodenum: No significant focal abnormality. Pancreas: No significant abnormality. Spleen: No significant abnormality. Adrenal: No suspicious lesions. Kidney/ureter: No hydronephrosis. No renal calculi. Too small to characterize and/or benign appearing renal lesions are noted. Retroperitoneum: No retroperitoneal adenopathy. Vascular: No aneurysm. Bowel: Known rectal mass is again identified. The sigmoid colon is thickened. There is likely a perforation of the sigmoid with reactive thickening of the distal small bowel. Multiple air-fluid levels are present.. Normal appendix. Peritoneum: Free air is present. A small though not well-defined fluid collection is present within the ileocolic mesentery. Umbilical hernia containing fluid and free air. Bladder: Grossly unremarkable. Reproductive: No adnexal masses. Bones: No acute fracture. Other: n/a IMPRESSION: Free air present consistent with perforation of a hollow viscus. Known rectal mass again identified with the suspected site of perforation at the mid to distal sigmoid, possibly as a result of obstruction due to the constricting rectal mass. No drainable abscess at this time. Recommend surgical consultation. Follow up CT scan: FINDINGS: Lower chest: Port tip in the right atrium. Cardiomegaly. Liver: No acute abnormality or suspicious lesions. Biliary: No biliary ductal dilatation. Stomach: No significant focal abnormality. Duodenum: No significant focal abnormality. Pancreas: No significant abnormality. Spleen: No significant abnormality. Adrenal: No suspicious lesions. Kidney/ureter: No hydronephrosis. No renal calculi. Too small to characterize and/or benign appearing renal lesions are noted. Retroperitoneum: No retroperitoneal adenopathy. Vascular: No aneurysm. Bowel: Increasing small bowel dilatation with multiple air-fluid levels. For example, a segment of small bowel in the left hemiabdomen previously measured 3 cm and now measures 3.6 cm. Re- demonstrated small bowel wall thickening at the ilium. Known rectal mass is similar to prior. Peritoneum: Free air volume is similar to yesterday. The free fluid volume is also similar. Umbilical hernia containing free air and fluid. Bladder: Contrast present within the bladder. Reproductive: No adnexal masses. Bones: No acute fracture. IMPRESSION: Similar volume of free air but increasing small bowel dilatation concerning for either worsening small bowel obstruction or ileus. The site of perforation is likely at the sigmoid. Surgery: Date: 10/20/21 16:54 Preoperative diagnosis: Perforated Colon Postoperative diagnosis: Perforated Colon Primary procedure: Exploratory Laparotomy with Transverse Loop Colostomy Secondary procedure: Primary Repair of Ventral Umbilical Hernia Other procedure(s): Liver punch biopsy Anesthesia: GETA Estimated blood loss: <20cc Specimen: Liver punch biopsy, hernia contents - omentum Findings: perforation @ sigmoid, liver nodule concerning for met, incar umb hernia Complications: None Drain(s): IZZY drain (10mm Flat IZZY) Transferred to: ICU Condition: Good KUB 10/22/2021: COMPARISON: Abdomen 1 View (KUB) dated 10/21/2021 FINDINGS: Supine portable single view of the chest and upper abdomen obtained following placement of an NG/ OG tube. The tip and side port of the tubing are in the left upper quadrant in the decompressed stomach. Prominent small bowel gas pattern is present. No free air or pneumatosis identifiable. IMPRESSION: NG/OG tube placement in good positioning. Pathology: DIAGNOSIS Liver, biopsy: - Small fragment of hepatic tissue with associated inflamed fibrovascular tissue - No malignancy identified Soft tissue, designated ventral umbilical hernia contents, herniorrhaphy: - Skin and fibroadipose tissue with acute inflammation Physical exam: General: Alert, Oriented x3, Cooperative HEENT: Atraumatic, Normocephalic, PERRLA. Dry mouth Neck: Supple, 2+ carotid pulse no bruit, JVD not distended Respiratory: Clear to auscultation bilaterally, Normal air movement. Patient remains on room air Cardiovascular: Mild tachycardia Gastrointestinal: Postsurgical changes noted. Colostomy in place. IZZY tube in place. Pain controlled. Musculoskeletal: No clubbing, No swelling Neurological: Normal speech, Normal strength at 5/5 x4 extr, Normal tone External genitalia: No edema, No lesions Impression: Abdominal pain secondary to mid to distal sigmoid perforation with small bowel dilation concerning for small bowel obstruction versus ileus complicated with history of rectal carcinoma with recent chemoradiation treatment status post exploratory laparotomy with transverse loop colostomy, primary repair of ventral umbilical hernia and liver punch biopsy Hypertension Chronic renal disease stage III Gout Chronic diastolic CHF Anemia of chronic disease with iron deficiency GERD Plan: Abdominal pain secondary to mid to distal sigmoid perforation with small bowel dilation concerning for small bowel obstruction versus ileus complicated with history of rectal carcinoma with recent chemoradiation treatment status post exploratory laparotomy with transverse loop colostomy, primary repair of ventral umbilical hernia and liver punch biopsy: Patient doing well postoperatively. Exploratory laparotomy with transverse loop colostomy performed. Other procedures included repair of ventral umbilical hernia and liver punch biopsy. Pathology from liver biopsy shows inflamed fibrovascular tissue. No malignancy identified. Tissue from ventral hernia shows acute inflammation. Pain seems to be well controlled. Patient now on clear liquid diet. Continue IV fluids. Continue IV Zosyn. Continue physical therapy. Patient to be transition to medical floor. Will restart his carvedilol medication for blood pressure. Co ntinue to adjust medication. Overall stable and improved. Anticipate improvement over the next several days. Continue to discuss with surgery. I will turn the service over to the hospitalist team tomorrow. I will go over the plan of care with him. Hypertension: Restart carvedilol 25 mg 1 pill twice daily since the patient is on clear liquids. Discontinue IV metoprolol. Continue IV hydralazine as needed. Patient may require additional medication if blood pressure remains elevated. Chronic renal disease stage III: Continue IV fluids. Overall stable. Will monitor renal function closely. Continue with nephrology recommendations Gout: Overall stable. Will monitor closely. Chronic diastolic CHF: Continue with above plan of care. Will monitor input output closely. Continue to hold Lasix Anemia of chronic disease with iron deficiency: We will monitor hemoglobin. Transfuse if hemoglobin less than 7.5. GERD: Continue with IV Pepcid CODE STATUS: Full code DVT prophylaxis: Heparin Advance care [id number] minutes: Home at discharge
[2021-10-28] MEDS: NA CHLORIDE 0.9% 1,000 ML IV SCH ×2 (10:55→21:53)
[2021-10-28] MEDS: Meropenem 1 GM/100 ML BAG IV SCH ×2 (10:56→21:52)
[2021-10-28 12:25] LABS: Hematocrit 22.5 % (39.6-49.0)
[2021-10-28] MEDS ORDERED: propofoL 200 MG/20 ML VIAL IV ONE (12:29)
--- NOTE | 2021-10-28 14:00 | RAD REPORT ---
EXAM DESCRIPTION: RAD - Chest Single View - 10/28/2021 1:48 pm CLINICAL HISTORY: EG TUBE PLACEMENT COMPARISON: Chest Single View dated 10/28/2021; Chest Single View dated 10/27/2021; Abdomen 1 View (KU B) dated 10/26/2021; Abdomen 1 View (KUB) dated 10/22/2021; Abdomen Pelvis W Contrast dated 10/26/2021 FINDINGS: Enteric tube below the diaphragm. The tip overlies the proximal stomach. Endotracheal tube at the aortic arch. Right IJ approach Port-A-Cath with tip overlying the superior cavoatrial junctio n. Left subclavian approach PICC with tip overlying the SVC. IMPRESSION: Enteric tube tip terminates overlying the proximal stomach. Other support apparatus is u nchanged. Aeration lungs is similar.
[2021-10-28] MEDS: AA 5%/D20W/ELECTROLYTES-TPN 2,000 ML with MULTIVITAMINS INJ 10 ML IV SCH ×2 (18:22)
[2021-10-28] MEDS: FENTANYL CITR 100 MCG/2 ML IV PRN ×2 (18:41→21:50)
[2021-10-28] MEDS ORDERED: ALTEPLASE 2 MG/VIAL IV SCH (23:08)
[2021-10-28] MEDS ORDERED: ALTEPLASE 2 MG/VIAL IV ONE (23:08)
[2021-10-28] MEDS ORDERED: WATER FOR INJ,STERILE 10 ML IV PRN (23:35)
[2021-10-29] MEDS: MIDAZOLAM HCL 2 MG/2 ML INJ IV PRN (02:22)
[2021-10-29] MEDS: FENTANYL CITR 100 MCG/2 ML IV PRN (04:37)
[2021-10-29] MEDS: LORazepam 2 MG/ML VIAL IV PRN (04:38)
[2021-10-29] MEDS: NA CHLORIDE 0.9% 1,000 ML IV SCH (05:00)
[2021-10-29 05:55] LABS: Absolute Lymphocytes (CBC) 0.2 K/uL (0.7-4.9); Hematocrit 21.3 % (39.6-49.0); Lymphocytes % 1.2 % (15.3-44.8); MPV 7.5 fL (7.6-11.3); RBC Red Blood Cell Count 2.93 M/uL (4.33-5.43)
[2021-10-29] MEDS: INSULIN -REGULAR HUMAN 50 UNIT/0.5 ML ML SQ SCH ×5 (06:00→23:33)
[2021-10-29 06:09] LABS: Magnesium 2.9 mg/dL (1.8-2.4); Potassium 4.5 mmol/L (3.5-5.1)
[2021-10-29 06:17] LABS: Arterial Blood Carboxyhemoglob 0.9 % (0-1.5); Blood Gas Oxyhemoglobin 97.3 % (94-97); Blood O2 Saturation 99.6 % (92-98.5)
--- NOTE | 2021-10-29 06:41 | P.PN ---
Date of Service: 10/28/21 Subjective Subjective: Was weaned off of vasopressor support. Renal function is improved. Urine output has also increased. IZZY drain output is serous fluid Review of Systems 10-point ROS is otherwise unremarkable Physical Examination - Vital Signs Reviewed - Physical Exam General: Alert, In no apparent distress; intubated and sedated Respiratory: Clear to auscultation bilaterally, Normal air movement Cardiovascular: Regular rate/rhythm, Normal S1 S2 Gastrointestinal: Normal bowel sounds, positive distention & tenderness; colostomy with stoma Neurological: Normal speech, Normal tone, Normal affect; moves all extremities Assessment & Plan - Problems (Diagnosis) (1) S/P partial colectomy Current Visit: Yes Status: Acute (2) Colostomy care Current Visit: Yes Status: Acute (3) Perforated sigmoid colon Current Visit: Yes Status: Acute (4) Rectal cancer Current Visit: Yes Status: Acute (5) CKD (chronic kidney disease), stage III Onset Date: 08/05/14 Current Visit: No Status: Acute (6) Hyperlipidemia Onset Date: 08/05/14 Current Visit: No Status: Acute (7) Hypertension Onset Date: 08/05/14 Current Visit: No Status: Acute - Plan Continue plan of care as mentioned below: -Weaning off of ventilator per pulmonary -Bolus IV fluids and vasopressors -Continue with IV fluids and IV antibiotic therapy -s/p repeat surgery -Repeat CT completed-expansion - Advance Directives Does patient have a Living Will: No Does patient have a Durable POA for Healthcare: No
--- NOTE | 2021-10-29 06:50 | P.PN ---
Date of Service: 10/29/21 Subjective Subjective: Patient is severely anemic. We will transfuse 2 units of packed red blood cells. Change IV fluids to half NS. Renal function has improved. Plan to wean off the ventilator today. Hold off sedation Review of Systems 10-point ROS is otherwise unremarkable Physical Examination - Vital Signs Reviewed - Physical Exam General: Alert, In no apparent distress; remains intubated and sedated Respiratory: Clear to auscultation bilaterally, Normal air movement Cardiovascular: Regular rate/rhythm, Normal S1 S2 Gastrointestinal: Normal bowel sounds, positive distention & tenderness; colostomy with stoma x 2(IZZY drain with serous fluid) Neurological: Normal speech, Normal tone, Normal affect Assessment & Plan - Problems (Diagnosis) (1) S/P partial colectomy Current Visit: Yes Status: Acute (2) Colostomy care Current Visit: Yes Status: Acute (3) Perforated sigmoid colon Current Visit: Yes Status: Acute (4) Rectal cancer Current Visit: Yes Status: Acute (5) CKD (chronic kidney disease), stage III Onset Date: 08/05/14 Current Visit: No Status: Acute (6) Anemia Onset Date: 10/29/21 Current Visit: No Status: Acute (7) Hypertension Onset Date: 08/05/14 Current Visit: No Status: Acute - Plan -Transfused 2 units of packed red blood cells -Patient off of vasopressor support -Continue with IV fluids-change to half NS along with TPN-and IV antibiotic therapy -Continue monitoring hemodynamics and renal function -Vent management per pulmonary - Advance Directives Does patient have a Living Will: No Does patient have a Durable POA for Healthcare: No
[2021-10-29] MEDS ORDERED: NACHLORIDE 0.45% 1,000 ML IV SCH (07:00)
--- NOTE | 2021-10-29 07:35 | RAD REPORT ---
EXAM DESCRIPTION: RAD - Chest Single View - 10/29/2021 6:24 am CLINICAL HISTORY: vented COMPARISON: Chest Single View dated 10/28/2021; Chest Single View dated 10/28/2021; Chest Single View dated 10/27/2021; Abdomen 1 View (KUB) dated 10/26/2021; Abdomen Pelvis W Contrast dated 10/26/2021 FINDINGS: Lines: Endotracheal tube at the aortic arch. Left subclavian approach PICC with tip overly ing the SVC. Port-A-Cath. NG tube overlying the stomach. Lungs: Hazy bilateral opacities noted. Pleural: No significant pleural effusions or pneumothorax. Cardiac: Cardiomegaly. Bones: No acute fractures. Other: IMPRESSION: Stable support apparatus. Hazy airspace disease bilaterally could reflect a combination of atelectasis and edema.
[2021-10-29] MEDS ORDERED: POTASSIUM PHOS IN 0.9 % NACL 15 MMOL/250 ML BAG IV ONE (09:00)
[2021-10-29 09:29] LABS: Anisocytosis 2+; Blood Morphology Comment NOTED (NOT SEEN); Hypochromasia 1+; Platelet Estimate ADEQ; Target Cells 2+
[2021-10-29] MEDS: VANCOMYCIN 1.75 GM in NA CHLORIDE 0.9% 500 ML IVPB SCH (10:48)
[2021-10-29] MEDS: Meropenem 1 GM/100 ML BAG IV SCH ×2 (10:48→20:00)
[2021-10-29] MEDS: FAMOTIDINE 20 MG/2 ML VIAL IV SCH ×2 (10:49→20:01)
[2021-10-29] MEDS: DEXMEDETOMIDINE HCL 200 MCG in NA CHLORIDE 0.9% 98 ML IV SCH ×2 (10:49→22:24)
--- NOTE | 2021-10-29 11:03 | P.PN ---
Subjective Date of Service: 10/29/21 Primary Care Provider: unknown; Oncology-Dr. Mancera [facility] Oncology Chief Complaint: Respiratory failure patient had to be reintubated Unresponsive hemodynamically stable off vasopressors Review of Systems is unable to be obtained Physical Examination - Vital Signs Temperature: 99.8 F Blood Pressure: 130/82 Pulse: 100 Respirations: 19 Pulse Ox (%): 100 - Physical Exam General: Unresponsive Gastrointestinal: Hypoactive, Other (Colostomy is functioning) - Studies Medications List Reviewed: Yes Assessment & Plan - Problems (Diagnosis) (1) Postoperative shock Current Visit: Yes Status: Acute Plan: Postoperative shock resolved blood cultures so far negative patient is on a dexmedetomidine drip off vasopressors continue with Merrem vancomycin renal function improving mildly hyponatremic hemoglobin is low patient will be tra nsfused 2 unit on TPN changed to longer acting low-dose Lovenox high risk for DVT and thromboembolism oxygenation satisfactory ABGs Qualifiers: Postoperative shock type: septic
[2021-10-29] MEDS ORDERED: NA CHLORIDE 0.9% 250 ML ONE ×2 (12:55→17:38)
[2021-10-29 14:18] LABS: Arterial Blood Carboxyhemoglob 1.2 % (0-1.5); Blood Gas Oxyhemoglobin 96.3 % (94-97); Blood O2 Saturation 98.8 % (92-98.5)
[2021-10-29] MEDS: AA 5%/D20W/ELECTROLYTES-TPN 2,000 ML, Lipids 20% 250 ML with MULTIVITAMINS INJ 10 ML IV SCH ×3 (17:43)
[2021-10-30] MEDS: FENTANYL CITR 100 MCG/2 ML IV PRN ×2 (03:56→13:34)
[2021-10-30 05:40] LABS: Absolute Lymphocytes (CBC) 0.2 K/uL (0.7-4.9); Hematocrit 26.7 % (39.6-49.0); Lymphocytes % 1.6 % (15.3-44.8); MPV 7.6 fL (7.6-11.3); RBC Red Blood Cell Count 3.54 M/uL (4.33-5.43)
[2021-10-30 05:57] LABS: Albumin 1.2 g/dL (3.4-5.0); Phosphorus 2.3 mg/dL (2.5-4.9); Potassium 4.7 mmol/L (3.5-5.1)
[2021-10-30] MEDS: INSULIN -REGULAR HUMAN 50 UNIT/0.5 ML ML SQ SCH ×4 (06:00→23:54)
[2021-10-30] MEDS ORDERED: HEPARIN 5000 UNIT/ML 1 ML VIAL SQ SCH (09:00)
[2021-10-30] MEDS: Meropenem 1 GM/100 ML BAG IV SCH ×2 (09:06→20:23)
[2021-10-30] MEDS: FAMOTIDINE 20 MG/2 ML VIAL IV SCH ×2 (09:06→20:25)
[2021-10-30] MEDS: ENOXAPARIN 40 MG/0.4 ML SQ SCH (09:06)
[2021-10-30] MEDS: DEXMEDETOMIDINE HCL 200 MCG in NA CHLORIDE 0.9% 98 ML IV SCH (09:07)
--- NOTE | 2021-10-30 10:21 | P.PN ---
Subjective Date of Service: 10/30/21 Primary Care Provider: unknown; Oncology-Dr. Mancera [facility] Chief Complaint: Respiratory failure patient had to be reintubated Doing much better more alert responsive cooperative Review of Systems is unable to be obtained Physical Examination - Vital Signs Temperature: 98.1 F Blood Pressure: 122/78 Pulse: 71 Respirations: 22 Pulse Ox (%): 100 - Physical Exam General: Alert, Other (Arousable) Respiratory: Clear to auscultation bilaterally, Diminished - Studies Medications List Reviewed: Yes Assessment & Plan - Problems (Diagnosis) (1) Postoperative shock Current Visit: Yes Status: Acute Plan: Postoperative shock resolved vital signs all stable hemoglobin stable mild hyponatremia renal function is improving patient is on TPN oxygenation satisfactory plan to wean off the ventilator patient is on dexmedetomidine drip using other medications on a as needed basis add D5 water for hypernatremia hemoglobin stable chest x-ray shows some cardiomegaly Qualifiers: Postoperative shock type: septic Physician Review Additional Text: COVID: negative Initial CT scan: FINDINGS: Lower chest: No acute abnormality. Liver: No acute abnormality or suspicious lesions. Biliary: No biliary ductal dilatation. Stomach: No significant focal abnormality. Duodenum: No significant focal abnormality. Pancreas: No significant abnormality. Spleen: No significant abnormality. Adrenal: No suspicious lesions. Kidney/ureter: No hydronephrosis. No renal calculi. Too small to characterize and/or benign appearing renal lesions are noted. Retroperitoneum: No retroperitoneal adenopathy. Vascular: No aneurysm. Bowel: Known rectal mass is again identified. The sigmoid colon is thickened. There is likely a perforation of the sigmoid with reactive thickening of the distal small bowel. Multiple air-fluid levels are present.. Normal appendix. Peritoneum: Free air is present. A small though not well-defined fluid collection is present within the ileocolic mesentery. Umbilical hernia containing fluid and free air. Bladder: Grossly unremarkable. Reproductive: No adnexal masses. Bones: No acute fracture. Other: n/a IMPRESSION: Free air present consistent with perforation of a hollow viscus. Known rectal mass again identified with the suspected site of perforation at the mid to distal sigmoid, possibly as a result of obstruction due to the constricting rectal mass. No drainable abscess at this time. Recommend surgical consultation. Follow up CT scan: FINDINGS: Lower chest: Port tip in the right atrium. Cardiomegaly. Liver: No acute abnormality or suspicious lesions. Biliary: No biliary ductal dilatation. Stomach: No significant focal abnormality. Duodenum: No significant focal abnormality. Pancreas: No significant abnormality. Spleen: No significant abnormality. Adrenal: No suspicious lesions. Kidney/ureter: No hydronephrosis. No renal calculi. Too small to characterize and/or benign appearing renal lesions are noted. Retroperitoneum: No retroperitoneal adenopathy. Vascular: No aneurysm. Bowel: Increasing small bowel dilatation with multiple air-fluid levels. For example, a segment of small bowel in the left hemiabdomen previously measured 3 cm and now measures 3.6 cm. Re- demonstrated small bowel wall thickening at the ilium. Known rectal mass is similar to prior. Peritoneum: Free air volume is similar to yesterday. The free fluid volume is also similar. Umbilical hernia containing free air and fluid. Bladder: Contrast present within the bladder. Reproductive: No adnexal masses. Bones: No acute fracture. IMPRESSION: Similar volume of free air but increasing small bowel dilatation concerning for either worsening small bowel obstruction or ileus. The site of perforation is likely at the sigmoid. Surgery: Date: 10/20/21 16:54 Preoperative diagnosis: Perforated Colon Postoperative diagnosis: Perforated Colon Primary procedure: Exploratory Laparotomy with Transverse Loop Colostomy Secondary procedure: Primary Repair of Ventral Umbilical Hernia Other procedure(s): Liver punch biopsy Anesthesia: GETA Estimated blood loss: <20cc Specimen: Liver punch biopsy, hernia contents - omentum Findings: perforation @ sigmoid, liver nodule concerning for met, incar umb hernia Complications: None Drain(s): IZZY drain (10mm Flat IZZY) Transferred to: ICU Condition: Good KUB 10/22/2021: COMPARISON: Abdomen 1 View (KUB) dated 10/21/2021 FINDINGS: Supine portable single view of the chest and upper abdomen obtained following placement of an NG/ OG tube. The tip and side port of the tubing are in the left upper quadrant in the decompressed stomach. Prominent small bowel gas pattern is present. No free air or pneumatosis identifiable. IMPRESSION: NG/OG tube placement in good positioning. Pathology: DIAGNOSIS Liver, biopsy: - Small fragment of hepatic tissue with associated inflamed fibrovascular tissue - No malignancy identified Soft tissue, designated ventral umbilical hernia contents, herniorrhaphy: - Skin and fibroadipose tissue with acute inflammation Physical exam: General: Alert, Oriented x3, Cooperative HEENT: Atraumatic, Normocephalic, PERRLA. Dry mouth Neck: Supple, 2+ carotid pulse no bruit, JVD not distended Respiratory: Clear to auscultation bilaterally, Normal air movement. Patient remains on room air Cardiovascular: Mild tachycardia Gastrointestinal: Postsurgical changes noted. Colostomy in place. IZZY tube in place. Pain controlled. Musculoskeletal: No clubbing, No swelling Neurological: Normal speech, Normal strength at 5/5 x4 extr, Normal tone External genitalia: No edema, No lesions Impression: Abdominal pain secondary to mid to distal sigmoid perforation with small bowel dilation concerning for small bowel obstruction versus ileus complicated with history of rectal carcinoma with recent chemoradiation treatment status post exploratory laparotomy with transverse loop colostomy, primary repair of ventral umbilical hernia and liver punch biopsy Hypertension Chronic renal disease stage III Gout Chronic diastolic CHF Anemia of chronic disease with iron deficiency GERD Plan: Abdominal pain secondary to mid to distal sigmoid perforation with small bowel dilation concerning for small bowel obstruction versus ileus complicated with history of rectal carcinoma with recent chemoradiation treatment status post exploratory laparotomy with transverse loop colostomy, primary repair of ventral umbilical hernia and liver punch biopsy: Patient doing well postoperatively. Exploratory laparotomy with transverse loop colostomy performed. Other procedures included repair of ventral umbilical hernia and liver punch biopsy. Pathology from liver biopsy shows inflamed fibrovascular tissue. No malignancy identified. Tissue from ventral hernia shows acute inflammation. Pain seems to be well controlled. Patient now on clear liquid diet. Continue IV fluids. Continue IV Zosyn. Continue physical therapy. Patient to be transition to medical floor. Will restart his carvedilol medication for blood pressure. Continue to adjust medication. Overall stable and improved. Anticipate improvement over the next several days. Continue to discuss with surgery. I will turn the service over to the hospitalist team tomorrow. I will go over the plan of care with him. Hypertension: Restart carvedilol 25 mg 1 pill twice daily since the patient is on clear liquids. Discontinue IV metoprolol. Continue IV hydralazine as needed. Patient may require additional medication if blood pressure remains elevated. Chronic renal disease stage III: Continue IV fluids. Overall stable. Will monitor renal function closely. Continue with nephrology recommendations Gout: Overall stable. Will monitor closely. Chronic diastolic CHF: Continue with above plan of care. Will monitor input output closely. Continue to hold Lasix Anemia of chronic disease with iron deficiency: We will monitor hemoglobin. Transfuse if hemoglobin less than 7.5. GERD: Continue with IV Pepcid CODE STATUS: Full code DVT prophylaxis: Heparin Advance care [id number] minutes: Home at discharge
[2021-10-30] MEDS: VANCOMYCIN 1.75 GM in NA CHLORIDE 0.9% 500 ML IVPB SCH (10:37)
[2021-10-30] MEDS: D5W 1,000 ML IV SCH (11:51)
[2021-10-30] MEDS ORDERED: DEXMEDETOMIDINE HCL 400 MCG in NA CHLORIDE 0.9% 196 ML IV SCH (16:00)
[2021-10-30] MEDS: AA 5%/D20W/ELECTROLYTES-TPN 2,000 ML with MULTIVITAMINS INJ 10 ML IV SCH ×2 (16:37)
[2021-10-31] MEDS: D5W 1,000 ML IV SCH ×2 (02:00→18:29)
[2021-10-31] MEDS: FENTANYL CITR 100 MCG/2 ML IV PRN ×4 (02:13→20:55)
[2021-10-31] MEDS: VANCOMYCIN 1.75 GM in NA CHLORIDE 0.9% 500 ML IVPB SCH ×2 (03:43→21:39)
[2021-10-31] MEDS ORDERED: VANCOMYCIN 1.75 GM in NA CHLORIDE 0.9% 500 ML IVPB SCH ×4 (04:00)
[2021-10-31 05:46] LABS: Absolute Lymphocytes (CBC) 0.2 K/uL (0.7-4.9); Hematocrit 26.3 % (39.6-49.0); Lymphocytes % 1.6 % (15.3-44.8); MPV 7.8 fL (7.6-11.3)
[2021-10-31 06:00] LABS: Potassium 4.3 mmol/L (3.5-5.1)
[2021-10-31] MEDS: INSULIN -REGULAR HUMAN 50 UNIT/0.5 ML ML SQ SCH ×3 (06:00→18:00)
[2021-10-31] MEDS: ENOXAPARIN 40 MG/0.4 ML SQ SCH (07:28)
[2021-10-31] MEDS: Meropenem 1 GM/100 ML BAG IV SCH ×2 (07:28→20:31)
[2021-10-31] MEDS: FAMOTIDINE 20 MG/2 ML VIAL IV SCH ×2 (07:28→20:32)
[2021-10-31] MEDS ORDERED: ALBUMIN HUMAN 25% 100 ML IV ONE (08:51)
[2021-10-31] MEDS: HYDRALAZINE HCL 20 MG/ML VIAL IV PRN (16:30)
[2021-10-31] MEDS: AA 5%/D20W/ELECTROLYTES-TPN 2,000 ML with MULTIVITAMINS INJ 10 ML IV SCH ×2 (16:31)
--- NOTE | 2021-10-31 22:53 | P.PN ---
Date of Service: 10/30/21 Subjective Subjective: Patient is still slowly weaning off the ventilator. Patient awake and following commands. Minimal drainage. Review of Systems 10-point ROS is otherwise unremarkable Physical Examination - Vital Signs Reviewed - Physical Exam General: Alert, In no apparent distress; remains intubated and sedated Respiratory: Clear to auscultation bilaterally, Normal air movement Cardiovascular: Regular rate/rhythm, Normal S1 S2 Gastrointestinal: Diminished bowel sounds, positive distention & tenderness; colostomy with stoma x 2(IZZY drain with serous fluid); mid line incision Neurological: Normal speech, Normal tone, Normal affect; following commands Assessment & Plan - Problems (Diagnosis) (1) S/P partial colectomy Current Visit: Yes Status: Acute (2) Colostomy care Current Visit: Yes Status: Acute (3) Perforated sigmoid colon Current Visit: Yes Status: Acute (4) Rectal cancer Current Visit: Yes Status: Acute (5) CKD (chronic kidney disease), stage III Onset Date: 08/05/14 Current Visit: No Status: Acute (6) Anemia Onset Date: 10/29/21 Current Visit: No Status: Acute (7) Hypertension Onset Date: 08/05/14 Current Visit: No Status: Acute - Plan -continue monitoring H&H -patient been weaned off of vasopressor support and we will continue weaning off of ventilator. Plan to extubate -Continue with IV fluids-change to half NS along with TPN-and IV antibiotic therapy -Continue monitoring hemodynamics and renal function -Vent management per pulmonary -monitor hemodynamics - Advance Directives Does patient have a Living Will: No Does patient have a Durable POA for Healthcare: No
--- NOTE | 2021-10-31 22:57 | P.PN ---
Date of Service: 10/31/21 Subjective Subjective: Patient is continuing to improve. Patient will be wean off the ventilator hopefully today. Patient is waking up and following commands. Minimal vent settings. Review of Systems 10-point ROS is otherwise unremarkable Physical Examination - Vital Signs Reviewed - Physical Exam General: Alert, In no apparent distress; remains intubated and sedated Respiratory: Clear to auscultation bilaterally, Normal air movement Cardiovascular: Regular rate/rhythm, Normal S1 S2 Gastrointestinal: Normal bowel sounds, positive distention & tenderness; colostomy with stoma x 2(IZZY drain with serous fluid) Neurological: Normal speech, Normal tone, Normal affect Assessment & Plan - Problems (Diagnosis) (1) S/P partial colectomy Current Visit: Yes Status: Acute (2) Colostomy care Current Visit: Yes Status: Acute (3) Perforated sigmoid colon Current Visit: Yes Status: Acute (4) Rectal cancer Current Visit: Yes Status: Acute (5) CKD (chronic kidney disease), stage III Onset Date: 08/05/14 Current Visit: No Status: Acute (6) Anemia Onset Date: 10/29/21 Current Visit: No Status: Acute (7) Hypertension Onset Date: 08/05/14 Current Visit: No Status: Acute - Plan -wean off ventilator; continue precedex -monitor H&H; -patient has been weaned off of vasopressor support -Continue with IV fluids-change to half NS along with TPN-and IV antibiotic therapy -Continue monitoring hemodynamics and renal function; strict input and output -Vent management per pulmonary - Advance Directives Does patient have a Living Will: No Does patient have a Durable POA for Healthcare: No
[2021-11-01] MEDS: FENTANYL CITR 100 MCG/2 ML IV PRN ×2 (01:18→07:23)
[2021-11-01] MEDS: D5W 1,000 ML IV SCH ×2 (03:00→06:08)
[2021-11-01 04:57] LABS: Absolute Lymphocytes (CBC) 0.3 K/uL (0.7-4.9); Hematocrit 30.1 % (39.6-49.0); Lymphocytes % 2.2 % (15.3-44.8); MPV 8.2 fL (7.6-11.3)
[2021-11-01 05:14] LABS: Magnesium 2.2 mg/dL (1.8-2.4); Potassium 4.1 mmol/L (3.5-5.1)
[2021-11-01] MEDS: INSULIN -REGULAR HUMAN 50 UNIT/0.5 ML ML SQ SCH ×4 (05:55→17:37)
[2021-11-01] MEDS: HYDRALAZINE HCL 20 MG/ML VIAL IV PRN ×2 (06:08→16:07)
--- NOTE | 2021-11-01 09:13 | P.PN ---
Subjective Date of Service: 10/29/21 Primary Care Provider: unknown; Oncology-Dr. Mancera [facility] Chief Complaint: s/p Exporatory laparotomy with LEFT end / hartmanns Subjective: Improving Physical Examination - Vital Signs Temperature: 97.7 F Blood Pressure: 144/98 Pulse: 103 Respirations: 32 Pulse Ox (%): 100 - Physical Exam General: Alert, In no apparent distress, Cooperative HEENT: Mucous membr. moist/pink Respiratory: Diminished, Other (intubated) Gastrointestinal: Other (soft, mild appropriate TTP, ND, LUQ diverting loop colostomy pink, viable, functional, LLE end colostomy pink, viable, IZZY serous, nina with minimal serous drainage.) - Studies Medications List Reviewed: Yes Assessment And Plan - Current Problems (Diagnosis) (1) Perforated sigmoid colon Current Visit: Yes Status: Acute Plan: s/p 10-20-21 - Exploratory laparotomy washout left transverse loop colostomy s/p 10-26-2021 - exploratory laparotomy, washout, hartmanns procedure Gen: Continue IV pain medication PRN , CVS: tachycardia improving Pulm: intubated, sedated GI: await more bowel function via colostomy, can anticipate function in colostomy bag as well as per rectum as patient did have stool burden in residual distal colon, monitor both colostomies, , serial exams, keep IZZY for now, NGT to LIWS FEN: total IVF to 130 cc/hr, continue electrolyte replacement protocol, nutrition: TPN / PICC Endo: continue insulin protocol Prophylaxis: DVT prophylaxis to continue with heparin Placement / Rehab: continue PT/OT ambulate with assist, patient to remain in ICU ID: continue antibiotics with zosyn, Damon in place Daily labs to continue Physician Review Additional Text: COVID: negative Initial CT scan: FINDINGS: Lower chest: No acute abnormality. Liver: No acute abnormality or suspicious lesions. Biliary: No biliary ductal dilatation. Stomach: No significant focal abnormality. Duodenum: No significant focal abnormality. Pancreas: No significant abnormality. Spleen: No significant abnormality. Adrenal: No suspicious lesions. Kidney/ureter: No hydronephrosis. No renal calculi. Too small to characterize and/or benign appearing renal lesions are noted. Retroperitoneum: No retroperitoneal adenopathy. Vascular: No aneurysm. Bowel: Known rectal mass is again identified. The sigmoid colon is thickened. There is likely a perforation of the sigmoid with reactive thickening of the distal small bowel. Multiple air-fluid levels are present.. Normal appendix. Peritoneum: Free air is present. A small though not well-defined fluid collec tion is present within the ileocolic mesentery. Umbilical hernia containing fluid and free air. Bladder: Grossly unremarkable. Reproductive: No adnexal masses. Bones: No acute fracture. Other: n/a IMPRESSION: Free air present consistent with perforation of a hollow viscus. Known rectal mass again identified with the suspected site of perforation at the mid to distal sigmoid, possibly as a result of obstruction due to the constricting rectal mass. No drainable abscess at this time. Recommend surgical consultation. Follow up CT scan: FINDINGS: Lower chest: Port tip in the right atrium. Cardiomegaly. Liver: No acute abnormality or suspicious lesions. Biliary: No biliary ductal dilatation. Stomach: No significant focal abnormality. Duodenum: No significant focal abnormality. Pancreas: No significant abnormality. Spleen: No significant abnormality. Adrenal: No suspicious lesions. Kidney/ureter: No hydronephrosis. No renal calculi. Too small to characterize and/or benign appearing renal lesions are noted. Retroperitoneum: No retroperitoneal adenopathy. Vascular: No aneurysm. Bowel: Increasing small bowel dilatation with multiple air-fluid levels. For example, a segment of small bowel in the left hemiabdomen previously measured 3 cm and now measures 3.6 cm. Re- demonstrated small bowel wall thickening at the ilium. Known rectal mass is similar to prior. Peritoneum: Free air volume is similar to yesterday. The free fluid volume is also similar. Umbilical hernia containing free air and fluid. Bladder: Contrast present within the bladder. Reproductive: No adnexal masses. Bones: No acute fracture. IMPRESSION: Similar volume of free air but increasing small bowel dilatation concerning for either worsening small bowel obstruction or ileus. The site of perforation is likely at the sigmoid. Surgery: Date: 10/20/21 16:54 Preoperative diagnosis: Perforated Colon Postoperative diagnosis: Perforated Colon Primary procedure: Exploratory Laparotomy with Transverse Loop Colostomy Secondary procedure: Primary Repair of Ventral Umbilical Hernia Other procedure(s): Liver punch biopsy Anesthesia: GETA Estimated blood loss: <20cc Specimen: Liver punch biopsy, hernia contents - omentum Findings: perforation @ sigmoid, liver nodule concerning for met, incar umb hernia Complications: None Drain(s): IZZY drain (10mm Flat IZZY) Transferred to: ICU Condition: Good KUB 10/22/2021: COMPARISON: Abdomen 1 View (KU) dated 10/21/2021 FINDINGS: Supine portable single view of the chest and upper abdomen obtained following placement of an NG/ OG tube. The tip and side port of the tubing are in the left upper quadrant in the decompressed stomach. Prominent small bowel gas pattern is present. No free air or pneumatosis identifiable. IMPRESSION: NG/OG tube placement in good positioning. Pathology: DIAGNOSIS Liver, biopsy: - Small fragment of hepatic tissue with associated inflamed fibrovascular tissue - No malignancy identified Soft tissue, designated ventral umbilical hernia contents, herniorrhaphy: - Skin and fibroadipose tissue with acute inflammation Physical exam: General: Alert, Oriented x3, Cooperative HEENT: Atraumatic, Normocephalic, PERRLA. Dry mouth Neck: Supple, 2+ carotid pulse no bruit, JVD not distended Respiratory: Clear to auscultation bilaterally, Normal air movement. Patient remains on room air Cardiovascular: Mild tachycardia Gastrointestinal: Postsurgical changes noted. Colostomy in place. IZZY tube in place. Pain controlled. Musculoskeletal: No clubbing, No swelling Neurological: Normal speech, Normal strength at 5/5 x4 extr, Normal tone External genitalia: No edema, No lesions Impression: Abdominal pain secondary to mid to distal sigmoid perforation with small bowel dilation concerning for small bowel obstruction versus ileus complicated with history of rectal carcinoma with recent chemoradiation treatment status post exploratory laparotomy with transverse loop colostomy, primary repair of ventral umbilical hernia and liver punch biopsy Hypertension Chronic renal disease stage III Gout Chronic diastolic CHF Anemia of chronic disease with iron deficiency GERD Plan: Abdominal pain secondary to mid to distal sigmoid perforation with small bowel dilation concerning for small bowel obstruction versus ileus complicated with history of rectal carcinoma with recent chemoradiation treatment status post exp loratory laparotomy with transverse loop colostomy, primary repair of ventral umbilical hernia and liver punch biopsy: Patient doing well postoperatively. Exploratory laparotomy with transverse loop colostomy performed. Other procedures included repair of ventral umbilical hernia and liver punch biopsy. Pathology from liver biopsy shows inflamed fibrovascular tissue. No malignancy identified. Tissue from ventral hernia shows acute inflammation. Pain seems to be well controlled. Patient now on clear liquid diet. Continue IV fluids. Continue IV Zosyn. Continue physical therapy. Patient to be transition to medical floor. Will restart his carvedilol medication for blood pressure. Continue to adjust medication. Overall stable and improved. Anticipate improvement over the next several days. Continue to discuss with surgery. I will turn the service over to the hospitalist team tomorrow. I will go over the plan of care with him. Hypertension: Restart carvedilol 25 mg 1 pill twice daily since the patient is on clear liquids. Discontinue IV metoprolol. Continue IV hydralazine as needed. Patient may require additional medication if blood pressure remains elevated. Chronic renal disease stage III: Continue IV fluids. Overall stable. Will monitor renal function closely. Continue with nephrology recommendations Gout: Overall stable. Will monitor closely. Chronic diastolic CHF: Continue with above plan of care. Will monitor input output closely. Continue to hold Lasix Anemia of chronic disease with iron deficiency: We will monitor hemoglobin. Transfuse if hemoglobin less than 7.5. GERD: Continue with IV Pepcid CODE STATUS: Full code DVT prophylaxis: Heparin Advance care minutes: Home at discharge
--- NOTE | 2021-11-01 09:16 | P.PN ---
Subjective Date of Service: 11/01/21 Primary Care Provider: unknown; Oncology-Dr. Mancera [facility] Chief Complaint: s/p Exporatory laparotomy with LEFT end / hartmanns Subjective: Improving (Extubated, conversive, no complaints) Physical Examination - Vital Signs Temperature: 97.7 F Blood Pressure: 144/98 Pulse: 103 Respirations: 32 Pulse Ox (%): 100 - Physical Exam General: Alert, In no apparent distress, Cooperative HEENT: Mucous membr. moist/pink Neck: Supple Respiratory: Normal air movement Cardiovascular: Regular rate/rhythm Gastrointestinal: Other (soft, mild appropriate TTP, ND, LUQ diverting loop colostomy pink, viable, functional, LLE end colostomy pink, viable, IZZY serous, nina with minimal serous drainage.) Integumentary: No breakdown Neurological: Normal speech - Studies Medications List Reviewed: Yes Assessment And Plan - Current Problems (Diagnosis) (1) Perforated sigmoid colon Current Visit: Yes Status: Acute Plan: s/p 10-20-21 - Exploratory laparotomy washout left transverse loop colostomy s/p 10-26-2021 - exploratory laparotomy, washout, hartmanns procedure Gen: Continue IV pain medication PRN ,will transition to PO soon when NGT out CVS: tachycardia improving Pulm: intubated, sedated GI: + stool / bowel function via colostomy, can anticipate function in colostomy bag as well as per rectum as patient did have stool burden in residual distal colon, monitor both colostomies, , serial exams, keep IZZY for now, NGT to LIWS FEN: total IVF to 100 cc/hr, continue electrolyte replacement protocol, nutrition: TPN / PICC Endo: continue insulin protocol Prophylaxis: DVT prophylaxis to continue with heparin Placement / Rehab: continue PT/OT ambulate with assist, patient to remain in ICU ID: continue antibiotics with zosyn, Damon in place - DC today Daily labs to continue Physician Review Additional Text: COVID: negative Initial CT scan: FINDINGS: Lower chest: No acute abnormality. Liver: No acute abnormality or suspicious lesions. Biliary: No biliary ductal dilatation. Stomach: No significant focal abnormality. Duodenum: No significant focal abnormality. Pancreas: No significant abnormality. Spleen: No significant abnormality. Adrenal: No suspicious lesions. Kidney/ureter: No hydronephrosis. No renal calculi. Too small to characterize and/or benign appearing renal lesions are noted. Retroperitoneum: No retroperitoneal adenopathy. Vascular: No aneurysm. Bowel: Known rectal mass is again identified. The sigmoid colon is thickened. There is likely a perforation of the sigmoid with reactive thickening of the distal small bowel. Multiple air-fluid levels are present.. Normal appendix. Peritoneum: Free air is present. A small though not well-defined fluid collection is present within the ileocolic mesentery. Umbilical hernia containing fluid and free air. Bladder: Grossly unremarkable. Reproductive: No adnexal masses. Bones: No acute fracture. Other: n/a IMPRESSION: Free air present consistent with perforation of a hollow viscus. Known rectal mass again identified with the suspected site of perforation at the mid to distal sigmoid, possibly as a result of obstruction due to the constricting rectal mass. No drainable abscess at this time. Recommend surgical consultation. Follow up CT scan: FINDINGS: Lower chest: Port tip in the right atrium. Cardiomegaly. Liver: No acute abnormality or suspicious lesions. Biliary: No biliary ductal dilatation. Stomach: No significant focal abnormality. Duodenum: No significant focal abnormality. Pancreas: No significant abnormality. Spleen: No significant abnormality. Adrenal: No suspicious lesions. Kidney/ureter: No hydronephrosis. No renal calculi. Too small to characterize and/or benign appearing renal lesions are noted. Retroperitoneum: No retroperitoneal adenopathy. Vascular: No aneurysm. Bowel: Increasing small bowel dilatation with multiple air-fluid levels. For example, a segment of small bowel in the left hemiabdomen previously measured 3 cm and now measures 3.6 cm. Re- demonstrated small bowel wall thickening at the ilium. Known rectal mass is similar to prior. Peritoneum: Free air volume is similar to yesterday. The free fluid volume is also similar. Umbilical hernia containing free air and fluid. Bladder: Contrast present within the bladder. Reproductive: No adnexal masses. Bones: No acute fracture. IMPRESSION: Similar volume of free air but increasing small bowel dilatation concerning for either worsening small bowel obstruction or ileus. The site of perforation is likely at the sigmoid. Surgery: Date: 10/20/21 16:54 Preoperative diagnosis: Perforated Colon Postoperative diagnosis: Perforated Colon Primary procedure: Exploratory Laparotomy with Transverse Loop Colostomy Secondary procedure: Primary Repair of Ventral Umbilical Hernia Other procedure(s): Liver punch biopsy Anesthesia: GETA Estimated blood loss: <20cc Specimen: Liver punch biopsy, hernia contents - omentum Findings: perforation @ sigmoid, liver nodule concerning for met, incar umb hernia Complications: None Drain(s): IZZY drain (10mm Flat IZZY) Transferred to: ICU Condition: Good KUB 10/22/2021: COMPARISON: Abdomen 1 View (KUB) dated 10/21/2021 FINDINGS: Supine portable single view of the chest and upper abdomen obtained following placement of an NG/ OG tube. The tip and side port of the tubing are in the left upper quadrant in the decompressed stomach. Prominent small bowel gas pattern is present. No free air or pneumatosis identifiable. IMPRESSION: NG/OG tube placement in good positioning. Pathology: DIAGNOSIS Liver, biopsy: - Small fragment of hepatic tissue with associated inflamed fibrovascular tissue - No malignancy identified Soft tissue, designated ventral umbilical hernia contents, herniorrhaphy: - Skin and fibroadipose tissue with acute inflammation Physical exam: General: Alert, Oriented x3, Cooperative HEENT: Atraumatic, Normocephalic, PERRLA. Dry mouth Neck: Supple, 2+ carotid pulse no bruit, JVD not distended Respiratory: Clear to auscultation bilaterally, Normal air movement. Patient remains on room air Cardiovascular: Mild tachycardia Gastrointestinal: Postsurgical changes noted. Colostomy in place. IZZY tube in place. Pain controlled. Musculoskeletal: No clubbing, No swelling Neurological: Normal speech, Normal strength at 5/5 x4 extr, Normal tone External genitalia: No edema, No lesions Impression: Abdominal pain secondary to mid to distal sigmoid perforation with small bowel d ilation concerning for small bowel obstruction versus ileus complicated with history of rectal carcinoma with recent chemoradiation treatment status post exploratory laparotomy with transverse loop colostomy, primary repair of ventral umbilical hernia and liver punch biopsy Hypertension Chronic renal disease stage III Gout Chronic diastolic CHF Anemia of chronic disease with iron deficiency GERD Plan: Abdominal pain secondary to mid to distal sigmoid perforation with small bowel dilation concerning for small bowel obstruction versus ileus complicated with history of rectal carcinoma with recent chemoradiation treatment status post exploratory laparotomy with transverse loop colostomy, primary repair of ventral umbilical hernia and liver punch biopsy: Patient doing well postoperatively. Exploratory laparotomy with transverse loop colostomy performed. Other procedures included repair of ventral umbilical hernia and liver punch biopsy. Pathology from liver biopsy shows inflamed fibrovascular tissue. No malignancy identified. Tissue from ventral hernia shows acute inflammation. Pain seems to be well controlled. Patient now on clear liquid diet. Continue IV fluids. Continue IV Zosyn. Continue physical therapy. Patient to be transition to medical floor. Will restart his carvedilol medication for blood pressure. Continue to adjust medication. Overall stable and improved. Anticipate improvement over the next several days. Continue to discuss with surgery. I will turn the service over to the hospitalist team tomorrow. I will go over the plan of care with him. Hypertension: Restart carvedilol 25 mg 1 pill twice daily since the patient is on clear liquids. Discontinue IV metoprolol. Continue IV hydralazine as needed. Patient may require additional medication if blood pressure remains elevated. Chronic renal disease stage III: Continue IV fluids. Overall stable. Will monitor renal function closely. Continue with nephrology recommendations Gout: Overall stable. Will monitor closely. Chronic diastolic CHF: Continue with above plan of care. Will monitor input output closely. Continue to hold Lasix Anemia of chronic disease with iron deficiency: We will monitor hemoglobin. Transfuse if hemoglobin less than 7.5. GERD: Continue with IV Pepcid CODE STATUS: Full code DVT prophylaxis: Heparin Advance care [id number] minutes: Home at discharge
--- NOTE | 2021-11-01 09:43 | RAD REPORT ---
EXAM DESCRIPTION: RAD - Abdomen 1 View (KUB) - 11/01/2021 9:03 am CLINICAL HISTORY: NGT placement COMPARISON: Abdomen 1 View (KUB) dated 10/26/2021; Abdomen 1 View (KUB) dated 10/22/2021; Abdomen 1 Vie w (KUB) dated 10/21/2021; Abdomen Pelvis W Contrast dated 10/26/2021 FINDINGS: NG tube tip terminates overlying the distal esophagus/proximal stomach. Recommend advancin g by distal esophagus/ proximal stomach. 9 cm. Limited evaluation of the abdomen. No air-fluid levels identified to suggest bowel obstruction. IMPRESSION: Recommend advancing the NG tube 9 cm as it terminates overlying the distal esophagus/ pr oximal stomach
[2021-11-01] MEDS: Meropenem 1 GM/100 ML BAG IV SCH ×2 (09:57→20:05)
[2021-11-01] MEDS: FAMOTIDINE 20 MG/2 ML VIAL IV SCH ×2 (09:57→20:01)
[2021-11-01] MEDS: ENOXAPARIN 40 MG/0.4 ML SQ SCH (09:58)
[2021-11-01] MEDS: HYDROMORPHONE HCL 0.5 MG/0.5 ML INJ IV PRN ×4 (10:05→20:28)
[2021-11-01] MEDS: VANCOMYCIN 1.75 GM in NA CHLORIDE 0.9% 500 ML IVPB SCH (16:07)
--- NOTE | 2021-11-01 16:10 | P.PN ---
Subjective Date of Service: 11/01/21 Primary Care Provider: unknown; Oncology-Dr. Mancera [facility] On[facility] Chief Complaint: s/p Exporatory laparotomy with LEFT end / hartmanns Subjective: Improving (Patient was extubated. Pain seems to be controlled.) Physical Examination - Vital Signs Temperature: 98.1 F Blood Pressure: 139/96 Pulse: 98 Respirations: 19 Pulse Ox (%): 98 - Studies Medications List Reviewed: Yes Assessment & Plan Discharge Plan: LTAC Plan to discharge in: 48 Hours Physician Review Additional Text: COVID: negative Initial CT scan: FINDINGS: Lower chest: No acute abnormality. Liver: No acute abnormality or suspicious lesions. Biliary: No biliary ductal dilatation. Stomach: No significant focal abnormality. Duodenum: No significant focal abnormality. Pancreas: No significant abnormality. Spleen: No significant abnormality. Adrenal: No suspicious lesions. Kidney/ureter: No hydronephrosis. No renal calculi. Too small to characterize and/or benign appearing renal lesions are noted. Retroperitoneum: No retroperitoneal adenopathy. Vascular: No aneurysm. Bowel: Known rectal mass is again identified. The sigmoid colon is thickened. There is likely a perforation of the sigmoid with reactive thickening of the distal small bowel. Multiple air-fluid levels are present.. Normal appendix. Peritoneum: Free air is present. A small though not well-defined fluid collection is present within the ileocolic mesentery. Umbilical hernia containing fluid and free air. Bladder: Grossly unremarkable. Reproductive: No adnexal masses. Bones: No acute fracture. Other: n/a IMPRESSION: Free air present consistent with perforation of a hollow viscus. Known rectal mass again identified with the suspected site of perforation at the mid to distal sigmoid, possibly as a result of obstruction due to the constricting rectal mass. No drainable abscess at this time. Recommend surgical consultation. Follow up CT scan: FINDINGS: Lower chest: Port tip in the right atrium. Cardiomegaly. Liver: No acute abnormality or suspicious lesions. Biliary: No biliary ductal dilatation. Stomach: No significant focal abnormality. Duodenum: No significant focal abnormality. Pancreas: No significant abnormality. Spleen: No significant abnormality. Adrenal: No suspicious lesions. Kidney/ureter: No hydronephrosis. No renal calculi. Too small to characterize and/or benign appearing renal lesions are noted. Retroperitoneum: No retroperitoneal adenopathy. Vascular: No aneurysm. Bowel: Increasing small bowel dilatation with multiple air-fluid levels. For example, a segment of small bowel in the left hemiabdomen previously measured 3 cm and now measures 3.6 cm. Re- demonstrated small bowel wall thickening at the ilium. Known rectal mass is similar to prior. Peritoneum: Free air volume is similar to yesterday. The free fluid volume is also similar. Umbilical hernia containing free air and fluid. Bladder: Contrast present within the bladder. Reproductive: No adnexal masses. Bones: No acute fracture. IMPRESSION: Similar volume of free air but increasing small bowel dilatation concerning for either worsening small bowel obstruction or ileus. The site of perforation is likely at the sigmoid. Surgery #1: Date: 10/20/21 16:54 Preoperative diagnosis: Perforated Colon Postoperative diagnosis: Perforated Colon Primary procedure: Exploratory Laparotomy with Transverse Loop Colostomy Secondary procedure: Primary Repair of Ventral Umbilical Hernia Other procedure(s): Liver punch biopsy Anesthesia: GETA Estimated blood loss: <20cc Specimen: Liver punch biopsy, hernia contents - omentum Findings: perforation @ sigmoid, liver nodule concerning for met, incar umb hernia Complications: None Drain(s): IZZY drain (10mm Flat IZZY) Transferred to: ICU Condition: Good Surgery #2: Date of procedure 10/26/2021 Preoperative diagnosis: Abdominal abscess/infection Postoperative diagnosis: Abdominal abscess/infection Primary procedure: Exploratory laparotomy with end sigmoid colostomy Secondary procedure: Partial sigmoid colectomy and abdominal washout Other procedure: Drainage of abdominal/pelvic abscess Estimated blood loss less than 100 cc Specimen: Partial sigmoid colectomy Findings large firm dry stool in pelvis and abdominal abscesses Complications: None Drain: IZZY drain. Pathology: DIAGNOSIS Liver, biopsy: - Small fragment of hepatic tissue with associated inflamed fibrovascular tissue - No malignancy identified Soft tissue, designated ventral umbilical hernia contents, herniorrhaphy: - Skin and fibroadipose tissue with acute inflammation Physical exam: General: Alert, Oriented x3, Cooperative HEENT: Atraumatic, Normocephalic, PERRLA. Dry mouth Neck: Supple, 2+ carotid pulse no bruit, JVD not distended Respiratory: Clear to auscultation bilaterally, Normal air movement. Patient remains on room air Cardiovascular: Mild tachycardia Gastrointestinal: Postsurgical changes noted. [address] in place. Pain controlled. Musculoskeletal: No clubbing, No swelling Neurological: Normal speech, Normal strength at 5/5 x4 extr, Normal tone External genitalia: No edema, No lesions Impression: Abdominal pain secondary to mid to distal sigmoid perforation with small bowel dilation concerning for small bowel obstruction versus ileus complicated with history of rectal carcinoma with recent chemoradiation treatment status post exploratory laparotomy with transverse loop colostomy, primary repair of ventral umbilical hernia and liver punch biopsy further complicated with abdominal abscess status post exploratory laparotomy with end sigmoid colostomy, partial sigmoid colectomy and abdominal washout with drainage of abdominal/pelvic abscess Hypertension Chronic renal disease stage III Gout Chronic diastolic CHF Anemia of chronic disease with iron deficiency GERD Plan: Abdominal pain secondary to mid to distal sigmoid perforation with small bowel dilation concerning for small bowel obstruction versus ileus complicated with history of rectal carcinoma with recent chemoradiation treatment status post exploratory laparotomy with transverse loop colostomy, primary repair of ventral umbilical hernia and liver punch biopsy further complicated with abdominal abscess status post exploratory laparotomy with end sigmoid colostomy, partial sigmoid colectomy and abdominal washout with drainage of abdominal/pelvic abscess: Since I last saw the patient patient required another procedure due to abdominal pelvic abscess. Patient was extubated. Patient remains on IV antibiotic therapy. Patient to start TPN. Will discuss with surgery. Surgery recommends long-term acute care facility placement to continue treatment plan. Will discuss further with surgery. Patient on IV meropenem and vancomycin. Hypertension: We will provide medication as needed Chronic renal disease stage III: Continue IV fluidsD5 W. TPN to be initiated. Overall stable. Will monitor renal function closely. Continue with nephrology recommendations Gout: Overall stable. Will monitor closely. Chronic diastolic CHF: Continue with above plan of care. Will monitor input output closely. Continue to hold Lasix Anemia of chronic disease with iron deficiency: We will monitor hemoglobin. Transfuse if hemoglobin less than 7.5. GERD: Continue with IV Pepcid CODE STATUS: Full code DVT prophylaxis: Heparin Advance care [id number] minutes: Long-term acute care facility Time Spent Managing Pts Care (In Minutes): 55
[2021-11-01] MEDS: AA 5%/D20W/ELECTROLYTES-TPN 2,000 ML, Lipids 20% 250 ML with MULTIVITAMINS INJ 10 ML IV SCH ×3 (16:35)
[2021-11-02] MEDS: HYDRALAZINE HCL 20 MG/ML VIAL IV PRN ×2 (00:07→15:33)
[2021-11-02] MEDS: HYDROMORPHONE HCL 0.5 MG/0.5 ML INJ IV PRN ×9 (00:07→20:49)
[2021-11-02] MEDS: D5W 1,000 ML IV SCH (04:13)
[2021-11-02 05:47] LABS: Absolute Lymphocytes (CBC) 0.4 K/uL (0.7-4.9); Hematocrit 31.1 % (39.6-49.0); Lymphocytes % 3.7 % (15.3-44.8); MPV 8.3 fL (7.6-11.3); RBC Red Blood Cell Count 4.17 M/uL (4.33-5.43)
[2021-11-02] MEDS ORDERED: METOPROLOL TARTRATE 5 MG/5 ML INJ IV PRN (05:47)
--- NOTE | 2021-11-02 05:48 | P.PN ---
Subjective Date of Service: 11/02/21 Primary Care Provider: unknown; Oncology-Dr. Mancera [facility] Oncology Chief Complaint: s/p Exporatory laparotomy with LEFT end / hartmanns Subjective: Improving, Doing well Physical Examination - Vital Signs Temperature: 97.7 F Blood Pressure: 146/96 Pulse: 102 Respirations: 22 Pulse Ox (%): 98 - Studies Medications List Reviewed: Yes Assessment & Plan Discharge Plan: LTAC Plan to discharge in: Greater than 2 days Physician Review Additional Text: COVID: negative Initial CT scan: FINDINGS: Lower chest: No acute abnormality. Liver: No acute abnormality or suspicious lesions. Biliary: No biliary ductal dilatation. Stomach: No significant focal abnormality. Duodenum: No significant focal abnormality. Pancreas: No significant abnormality. Spleen: No significant abnormality. Adrenal: No suspicious lesions. Kidney/ureter: No hydronephrosis. No renal calculi. Too small to characterize and/or benign appearing renal lesions are noted. Retroperitoneum: No retroperitoneal adenopathy. Vascular: No aneurysm. Bowel: Known rectal mass is again identified. The sigmoid colon is thickened. There is likely a perforation of the sigmoid with reactive thickening of the distal small bowel. Multiple air-fluid levels are present.. Normal appendix. Peritoneum: Free air is present. A small though not well-defined fluid collection is present within the ileocolic mesentery. Umbilical hernia containing fluid and free air. Bladder: Grossly unremarkable. Reproductive: No adnexal masses. Bones: No acute fracture. Other: n/a IMPRESSION: Free air present consistent with perforation of a hollow viscus. Known rectal mass again identified with the suspected site of perforation at the mid to distal sigmoid, possibly as a result of obstruction due to the constricting rectal mass. No drainable abscess at this time. Recommend surgical consultation. Follow up CT scan: FINDINGS: Lower chest: Port tip in the right atrium. Cardiomegaly. Liver: No acute abnormality or suspicious lesions. Biliary: No biliary ductal dilatation. Stomach: No significant focal abnormality. Duodenum: No significant focal abnormality. Pancreas: No significant abnormality. Spleen: No significant abnormality. Adrenal: No suspicious lesions. Kidney/ureter: No hydronephrosis. No renal calculi. Too small to characterize and/or benign appearing renal lesions are noted. Retroperitoneum: No retroperitoneal adenopathy. Vascular: No aneurysm. Bowel: Increasing small bowel dilatation with multiple air-fluid levels. For example, a segment of small bowel in the left hemiabdomen previously measured 3 cm and now measures 3.6 cm. Re- demonstrated small bowel wall thickening at the ilium. Known rectal mass is similar to prior. Peritoneum: Free air volume is similar to yesterday. The free fluid volume is also similar. Umbilical hernia containing free air and fluid. Bladder: Contrast present within the bladder. Reproductive: No adnexal masses. Bones: No acute fracture. IMPRESSION: Similar volume of free air but increasing small bowel dilatation concerning for either worsening small bowel obstruction or ileus. The site of perforation is likely at the sigmoid. Surgery #1: Date: 10/20/21 16:54 Preoperative diagnosis: Perforated Colon Postoperative diagnosis: Perforated Colon Primary procedure: Exploratory Laparotomy with Transverse Loop Colostomy Secondary procedure: Primary Repair of Ventral Umbilical Hernia Other procedure(s): Liver punch biopsy Anesthesia: GETA Estimated blood loss: <20cc Specimen: Liver punch biopsy, hernia contents - omentum Findings: perforation @ sigmoid, liver nodule concerning for met, incar umb hernia Complications: None Drain(s): IZZY drain (10mm Flat IZZY) Transferred to: ICU Condition: Good Surgery #2: Date of procedure 10/26/2021 Preoperative diagnosis: Abdominal abscess/infection Postoperative diagnosis: Abdominal abscess/infection Primary procedure: Exploratory laparotomy with end sigmoid colostomy Secondary procedure: Partial sigmoid colectomy and abdominal washout Other procedure: Drainage of abdominal/pelvic abscess Estimated blood loss less than 100 cc Specimen: Partial sigmoid colectomy Findings large firm dry stool in pelvis and abdominal abscesses Complications: None Drain: IZZY drain. Pathology: DIAGNOSIS Liver, biopsy: - Small fragment of hepatic tissue with associated inflamed fibrovascular tissue - No malignancy identified Soft tissue, designated ventral umbilical hernia contents, herniorrhaphy: - Skin and fibroadipose tissue with acute inflammation Physical exam: General: Alert, Oriented x3, Cooperative HEENT: Atraumatic, Normocephalic, PERRLA. Dry mouth Neck: Supple, 2+ carotid pulse no bruit, JVD not distended Respiratory: Early. Patient on room air. Cardiovascular: Mild tachycardia Gastrointestinal: Postsurgical changes noted. [address] in place. Pain controlled. Musculoskeletal: No clubbing, No swelling Neurological: Normal speech, Normal strength at 5/5 x4 extr, Normal tone External genitalia: No edema, No lesions Impression: Abdominal pain secondary to mid to distal sigmoid perforation with small bowel dilation concerning for small bowel obstruction versus ileus complicated with history of rectal carcinoma with recent chemoradiation treatment status post exploratory laparotomy with transverse loop colostomy, primary repair of ventral umbilical hernia and liver punch biopsy further complicated with abdominal abscess status post exploratory laparotomy with end sigmoid colostomy, partial sigmoid colectomy and abdominal washout with drainage of abdominal/pelvic abscess Hypertension Chronic renal disease stage III Gout Chronic diastolic CHF Anemia of chronic disease with iron deficiency GERD Plan: Abdominal pain secondary to mid to distal sigmoid perforation with small bowel dilation concerning for small bowel obstruction versus ileus complicated with history of rectal carcinoma with recent chemoradiation treatment status post exploratory laparotomy with transverse loop colostomy, primary repair of ventral umbilical hernia and liver punch biopsy further complicated with abdominal abscess status post exploratory laparotomy with end sigmoid colostomy, partial sigmoid colectomy and abdominal washout with drainage of abdominal/pelvic abscess: Patient doing well post second surgery. Patient on room air. Still with increased fatigue. PT to evaluate. Patient remains on TPN, IV antibiotic therapymeropenem, and DVT prophylaxisLovenox. Patient being evaluated for long-term acute care facility placement to continue treatment. Will discuss with surgery on plan of care. Patient agreeable to go to LTAC. Hypertension: IV medication available. Chronic renal disease stage III: Continue TPN. Overall stable. Will monitor renal function closely. Continue with nephrology recommendations Gout: Overall stable. Will monitor closely. Chronic diastolic CHF: Continue with above plan of care. Will monitor input output closely. Continue to hold Lasix Anemia of chronic disease with iron deficiency: We will monitor hemoglobin. Transfuse if hemoglobin less than 7.5. GERD: Continue with IV Pepcid CODE STATUS: Full code DVT prophylaxis: Lovenox [facility] [id number] minutes: Patient agreeable to long-term acute care facility. Await approval. Time Spent Managing Pts Care (In Minutes): 55
[2021-11-02 05:59] LABS: Albumin 1.3 g/dL (3.4-5.0); Bilirubin Total 1.8 mg/dL (0.2-1.0); Magnesium 2.3 mg/dL (1.8-2.4); Potassium 4.1 mmol/L (3.5-5.1)
[2021-11-02] MEDS: INSULIN -REGULAR HUMAN 50 UNIT/0.5 ML ML SQ SCH ×4 (06:17→18:00)
[2021-11-02 07:05] LABS: Anisocytosis 1+; Blood Morphology Comment NOTED (NOT SEEN); Platelet Estimate ADEQ; White Blood Cell Scan OK (OK)
[2021-11-02] MEDS: FAMOTIDINE 20 MG/2 ML VIAL IV SCH ×2 (08:35→20:47)
[2021-11-02] MEDS: ENOXAPARIN 40 MG/0.4 ML SQ SCH (08:35)
[2021-11-02] MEDS: Meropenem 1 GM/100 ML BAG IV SCH ×2 (08:35→20:46)
[2021-11-02] MEDS: AA 5%/D20W/ELECTROLYTES-TPN 2,000 ML with MULTIVITAMINS INJ 10 ML IV SCH ×2 (16:46)
[2021-11-02] MEDS ORDERED: LORazepam 2 MG/ML VIAL IV ONE (21:30)
[2021-11-03] MEDS: HYDROMORPHONE HCL 0.5 MG/0.5 ML INJ IV PRN ×7 (01:18→17:43)
--- NOTE | 2021-11-03 05:41 | P.PN ---
Subjective Date of Service: 11/03/21 Primary Care Provider: unknown; Oncology-Dr. Mancera [facility] Oncology Chief Complaint: s/p Exporatory laparotomy with LEFT end / hartmanns Subjective: Improving, Doing well Physical Examination - Vital Signs Temperature: 98 F Blood Pressure: 140/96 Pulse: 107 Respirations: 22 Pulse Ox (%): 92 - Studies Medications List Reviewed: Yes Assessment & Plan Discharge Plan: LTAC Plan to discharge in: 24 Hours Physician Review Additional Text: COVID: negative Initial CT scan: FINDINGS: Lower chest: No acute abnormality. Liver: No acute abnormality or suspicious lesions. Biliary: No biliary ductal dilatation. Stomach: No significant focal abnormality. Duodenum: No significant focal abnormality. Pancreas: No significant abnormality. Spleen: No significant abnormality. Adrenal: No suspicious lesions. Kidney/ureter: No hydronephrosis. No renal calculi. Too small to characterize and/or benign appearing renal lesions are noted. Retroperitoneum: No retroperitoneal adenopathy. Vascular: No aneurysm. Bowel: Known rectal mass is again identified. The sigmoid colon is thickened. There is likely a perforation of the sigmoid with reactive thickening of the distal small bowel. Multiple air-fluid levels are present.. Normal appendix. Peritoneum: Free air is present. A small though not well-defined fluid collection is present within the ileocolic mesentery. Umbilical hernia containing fluid and free air. Bladder: Grossly unremarkable. Reproductive: No adnexal masses. Bones: No acute fracture. Other: n/a IMPRESSION: Free air present consistent with perforation of a hollow viscus. Known rectal mass again identified with the suspected site of perforation at the mid to distal sigmoid, possibly as a result of obstruction due to the constricting rectal mass. No drainable abscess at this time. Recommend surgical consultation. Follow up CT scan: FINDINGS: Lower chest: Port tip in the right atrium. Cardiomegaly. Liver: No acute abnormality or suspicious lesions. Biliary: No biliary ductal dilatation. Stomach: No significant focal abnormality. Duodenum: No significant focal abnormality. Pancreas: No significant abnormality. Spleen: No significant abnormality. Adrenal: No suspicious lesions. Kidney/ureter: No hydronephrosis. No renal calculi. Too small to characterize and/or benign appearing renal lesions are noted. Retroperitoneum: No retroperitoneal adenopathy. Vascular: No aneurysm. Bowel: Increasing small bowel dilatation with multiple air-fluid levels. For example, a segment of small bowel in the left hemiabdomen previously measured 3 cm and now measures 3.6 cm. Re- demonstrated small bowel wall thickening at the ilium. Known rectal mass is similar to prior. Peritoneum: Free air volume is similar to yesterday. The free fluid volume is also similar. Umbilical hernia containing free air and fluid. Bladder: Contrast present within the bladder. Reproductive: No adnexal masses. Bones: No acute fracture. IMPRESSION: Similar volume of free air but increasing small bowel dilatation concerning for either worsening small bowel obstruction or ileus. The site of perforation is likely at the sigmoid. Surgery #1: Date: 10/20/21 16:54 Preoperative diagnosis: Perforated Colon Postoperative diagnosis: Perforated Colon Primary procedure: Exploratory Laparotomy with Transverse Loop Colostomy Secondary procedure: Primary Repair of Ventral Umbilical Hernia Other procedure(s): Liver punch biopsy Anesthesia: GETA Estimated blood loss: <20cc Specimen: Liver punch biopsy, hernia contents - omentum Findings: perforation @ sigmoid, liver nodule concerning for met, incar umb hernia Complications: None Drain(s): IZZY drain (10mm Flat IZZY) Transferred to: ICU Condition: Good Surgery #2: Date of procedure 10/26/2021 Preoperative diagnosis: Abdominal abscess/infection Postoperative diagnosis: Abdominal abscess/infection Primary procedure: Exploratory laparotomy with end sigmoid colostomy Secondary procedure: Partial sigmoid colectomy and abdominal washout Other procedure: Drainage of abdominal/pelvic abscess Estimated blood loss less than 100 cc Specimen: Partial sigmoid colectomy Findings large firm dry stool in pelvis and abdominal abscesses Complications: None Drain: IZZY drain. Pathology: DIAGNOSIS Liver, biopsy: - Small fragment of hepatic tissue with associated inflamed fibrovascular tissue - No malignancy identified Soft tissue, designated ventral umbilical hernia contents, herniorrhaphy: - Skin and fibroadipose tissue with acute inflammation Physical exam: General: Alert, Oriented x3, Cooperative HEENT: Atraumatic, Normocephalic, PERRLA. Dry mouth Neck: Supple, 2+ carotid pulse no bruit, JVD not distended Respiratory: Early. Patient on room air. Cardiovascular: Mild tachycardia Gastrointestinal: Postsurgical changes noted. [address] in place. Pain controlled. Musculoskeletal: No clubbing, No swelling Neurological: Normal speech, Normal strength at 5/5 x4 extr, Normal tone External genitalia: No edema, No lesions Impression: Abdominal pain secondary to mid to distal sigmoid perforation with small bowel dilation concerning for small bowel obstruction versus ileus complicated with history of rectal carcinoma with recent chemoradiation treatment status post exploratory laparotomy with transverse loop colostomy, primary repair of ventral umbilical hernia and liver punch biopsy further complicated with abdominal abscess status post exploratory laparotomy with end sigmoid colostomy, partial sigmoid colectomy and abdominal washout with drainage of abdominal/pelvic abscess Hypertension Chronic renal disease stage III Gout Chronic diastolic CHF Anemia of chronic disease with iron deficiency GERD Plan: Abdominal pain secondary to mid to distal sigmoid perforation with small bowel dilation concerning for small bowel obstruction versus ileus complicated with history of rectal carcinoma with recent chemoradiation treatment status post exploratory laparotomy with transverse loop colostomy, primary repair of ventral umbilical hernia and liver punch biopsy further complicated with abdominal abscess status post exploratory laparotomy with end sigmoid colostomy, partial sigmoid colectomy and abdominal washout with drainage of abdominal/pelvic abscess: Patient doing well. Case discussed with surgery. Surgery recommends to change IV antibiotic therapy to Zosyn. Will discontinue IV meropenem. Patient will need to continue with IV antibiotic therapy for 2 more weeks. Continue other medications including DVT prophylaxis, Pepcid, TPN. Patient has been accepted to LTAC. We will proceed with discharge to LTAC. Hypertension: IV medication available. Chronic renal disease stage III: Continue TPN. Overall stable. Will monitor renal function closely. Continue with nephrology recommendations Gout: Overall stable. Will monitor closely. Chronic diastolic CHF: Continue with above plan of care. Will monitor input output closely. Continue to hold Lasix Anemia of chronic disease with iron deficiency: We will monitor hemoglobin. Transfuse if hemoglobin less than 7.5. GERD: Continue with IV Pepcid CODE STATUS: Full code DVT prophylaxis: Lovenox [facility] [id number] minutes: Patient agreeable to long-term acute care facility. Patient approved for LTAC. We will proceed with transfer. Time Spent Managing Pts Care (In Minutes): 55
[2021-11-03] MEDS: INSULIN -REGULAR HUMAN 50 UNIT/0.5 ML ML SQ SCH ×4 (06:00→17:31)
[2021-11-03 06:07] LABS: Absolute Lymphocytes (CBC) 0.3 K/uL (0.7-4.9); Hematocrit 30.2 % (39.6-49.0)
[2021-11-03 06:22] LABS: Potassium 3.9 mmol/L (3.5-5.1); Sodium Level 141 mmol/L (136-145)
[2021-11-03 06:27] VITALS: BMI 27.3
[2021-11-03 06:31] LABS: ALT/SGPT 28 U/L (12-78); AST/SGOT 34 U/L (15-37); Albumin 1.4 g/dL (3.4-5.0); Alkaline Phosphatase 93 U/L (45-117); BUN Blood Urea Nitrogen 21 mg/dL (7-18); Bicarbonate 29 mmol/L (21-32); Bilirubin Total 1.7 mg/dL (0.2-1.0); Glucose Level 157 mg/dL (74-106); Magnesium 2.3 mg/dL (1.8-2.4)
[2021-11-03 06:40] LABS: Lymphocytes % 3.2 % (15.3-44.8); MPV 8.5 fL (7.6-11.3); RBC Red Blood Cell Count 4.04 M/uL (4.33-5.43)
[2021-11-03] MEDS ORDERED: KCL 20 MEQ/100 mL IVPB 20 MEQ/100 ML BAG IV SCH (07:00)
[2021-11-03] MEDS: ENOXAPARIN 40 MG/0.4 ML SQ SCH (07:58)
[2021-11-03] MEDS: FAMOTIDINE 20 MG/2 ML VIAL IV SCH (07:58)
[2021-11-03] MEDS: Meropenem 1 GM/100 ML BAG IV SCH (08:00)
[2021-11-03 08:20] VITALS: O2SAT 97
[2021-11-03] MEDS ORDERED: POTASSIUM CL 20 MEQ in NA CHLORIDE 0.9% 20 MEQ/100 ML BAG IV ONE (09:00)
--- NOTE | 2021-11-03 09:16 | P.PN ---
Subjective Date of Service: 11/02/21 Primary Care Provider: unknown; Oncology-Dr. Mancera [facility] Oncology Chief Complaint: s/p Exporatory laparotomy with LEFT end / hartmanns Subjective: Improving (Patient continues to improve, both ostomies functional, pain continues to improve, desires diet, but NG in place) Physical Examination - Vital Signs Temperature: 98 F Blood Pressure: 152/90 Pulse: 114 Respirations: 20 Pulse Ox (%): 97 - Physical Exam General: Alert, In no apparent distress, Cooperative HEENT: Mucous membr. moist/pink Respiratory: Diminished Cardiovascular: Other (tachycardia @ times) Gastrointestinal: Other (soft, mild appopriate TTP, LLQ colostomy has venous congestion, but functional with firm solid stool in bag, mucosa remains viable, RUQ loop colostomy has stool in bag, pink viable, IZZY serous. nina in place with fat necrosis dishcarge) - Studies Medications List Reviewed: Yes Assessment And Plan - Current Problems (Diagnosis) (1) Perforated sigmoid colon Current Visit: Yes Status: Acute Plan: s/p 10-20-21 - Exploratory laparotomy washout left transverse loop colostomy s/p 10-26-2021 - exploratory laparotomy, washout, hartmanns procedure Gen: Continue IV pain medication PRN ,will transition to PO soon when NGT out, CVS: tachycardia improving Pulm: extubated, incentive spirometry GI: + stool / bowel function via colostomy, can anticipate function in colostomy bag as well as per rectum as patient did have stool burden in residual distal colon, monitor both colostomies, , serial exams, keep IZZY for now, NGT to LIWS FEN: total IVF to 100 cc/hr, continue electrolyte replacement protocol, nutrition: TPN / PICC Endo: continue insulin protocol Prophylaxis: DVT prophylaxis to continue with heparin Placement / Rehab: continue PT/OT ambulate with assist, patient to remain in ICU ID: change antibiotics with zosyn, Damon out Daily labs to continue Physician Review Additional Text: COVID: negative Initial CT scan: FINDINGS: Lower chest: No acute abnormality. Liver: No acute abnormality or suspicious lesions. Biliary: No biliary ductal dilatation. Stomach: No significant focal abnormality. Duodenum: No significant focal abnormality. Pancreas: No significant abnormality. Spleen: No significant abnormality. Adrenal: No suspicious lesions. Kidney/ureter: No hydronephrosis. No renal calculi. Too small to characterize and/or benign appearing renal lesions are noted. Retroperitoneum: No retroperitoneal adenopathy. Vascular: No aneurysm. Bowel: Known rectal mass is again identified. The sigmoid colon is thickened. There is likely a perforation of the sigmoid with reactive thickening of the distal small bowel. Multiple air-fluid levels are present.. Normal appendix. Peritoneum: Free air is present. A small though not well-defined fluid collection is present within the ileocolic mesentery. Umbilical hernia containing fluid and free air. Bladder: Grossly unremarkable. Reproductive: No adnexal masses. Bones: No acute fracture. Other: n/a IMPRESSION: Free air present consistent with perforation of a hollow viscus. Known rectal mass again identified with the suspected site of perforation at the mid to distal sigmoid, possibly as a result of obstruction due to the constricting rectal mass. No drainable abscess at this time. Recommend surgical consultation. Follow up CT scan: FINDINGS: Lower chest: Port tip in the right atrium. Cardiomegaly. Liver: No acute abnormality or suspicious lesions. Biliary: No biliary ductal dilatation. Stomach: No significant focal abnormality. Duodenum: No significant focal abnormality. Pancreas: No significant abnormality. Spleen: No significant abnormality. Adrenal: No suspicious lesions. Kidney/ureter: No hydronephrosis. No renal calculi. Too small to characterize and/or benign appearing renal lesions are noted. Retroperitoneum: No retroperitoneal adenopathy. Vascular: No aneurysm. Bowel: Increasing small bowel dilatation with multiple air-fluid levels. For example, a segment of small bowel in the left hemiabdomen previously measured 3 cm and now measures 3.6 cm. Re- demonstrated small bowel wall thickening at the ilium. Known rectal mass is similar to prior. Peritoneum: Free air volume is similar to yesterday. The free fluid volume is also similar. Umbilical hernia containing free air and fluid. Bladder: Contrast present within the bladder. Reproductive: No adnexal masses. Bones: No acute fracture. IMPRESSION: Similar volume of free air but increasing small bowel dilatation concerning for either worsening small bowel obstruction or ileus. The site of perforation is likely at the sigmoid. Surgery #1: Date: 10/20/21 16:54 Preoperative diagnosis: Perforated Colon Postoperative diagnosis: Perforated Colon Primary procedure: Exploratory Laparotomy with Transverse Loop Colostomy Secondary procedure: Primary Repair of Ventral Umbilical Hernia Other procedure(s): Liver punch biopsy Anesthesia: GETA Estimated blood loss: <20cc Specimen: Liver punch biopsy, hernia contents - omentum Findings: perforation @ sigmoid, liver nodule concerning for met, incar umb hernia Complications: None Drain(s): IZZY drain (10mm Flat IZZY) Transferred to: ICU Condition: Good Surgery #2: Date of procedure 10/26/2021 Preoperative diagnosis: Abdominal abscess/infection Postoperative diagnosis: Abdominal abscess/infection Primary procedure: Exploratory laparotomy with end sigmoid colostomy Secondary procedure: Partial sigmoid colectomy and abdominal washout Other procedure: Drainage of abdominal/pelvic abscess Estimated blood loss less than 100 cc Specimen: Partial sigmoid colectomy Findings large firm dry stool in pelvis and abdominal abscesses Complications: None Drain: IZZY drain. Pathology: DIAGNOSIS Liver, biopsy: - Small fragment of hepatic tissue with associated inflamed fibrovascular tissue - No malignancy identified Soft tissue, designated ventral umbilical hernia contents, herniorrhaphy: - Skin and fibroadipose tissue with acute inflammation Physical exam: General: Alert, Oriented x3, Cooperative HEENT: Atraumatic, Normocephalic, PERRLA. Dry mouth Neck: Supple, 2+ carotid pulse no bruit, JVD not distended Respiratory: Early. Patient on room air. Cardiovascular: Mild tachycardia Gastrointestinal: Postsurgical changes noted. [address] in place. Pain controlled. Musculoskeletal: No clubbing, No swelling Neurological: Normal speech, Normal strength at 5/5 x4 extr, Normal tone External genitalia: No edema, No lesions Impression: Abdominal pain secondary to mid to distal sigmoid perforation with small bowel dilation concerning for small bowel obstruction versus ileus complicated with history of rectal carcinoma with recent chemoradiation treatment status post exploratory laparotomy with transverse loop colostomy, primary repair of ventral umbilical hernia and liver punch biopsy further complicated with abdominal abscess status post exploratory laparotomy with end sigmoid colostomy, partial sigmoid colectomy and abdominal washout with drainage of abdominal/pelvic abscess Hypertension Chronic renal disease stage III Gout Chronic diastolic CHF Anemia of chronic disease with iron deficiency GERD Plan: Abdominal pain secondary to mid to distal sigmoid perforation with small bowel dilation concerning for small bowel obstruction versus ileus complicated with history of rectal carcinoma with recent chemoradiation treatment status post exploratory laparotomy with transverse loop colostomy, primary repair of ventral umbilical hernia and liver punch biopsy further complicated with abdominal abscess status post exploratory laparotomy with end sigmoid colostomy, partial sigmoid colectomy and abdominal washout with drainage of abdominal/pelvic abscess: Patient doing well post second surgery. Patient on room air. Still with increased fatigue. PT to evaluate. Patient remains on TPN, IV antibiotic therapymeropenem, and DVT prophylaxisLovenox. Patient being evaluated for long-term acute care facility placement to continue treatment. Will discuss with surgery on plan of care. Patient agreeable to go to LTAC. Hypertension: IV medication available. Chronic renal disease stage III: Continue TPN. Overall stable. Will monitor renal function closely. Continue with nephrology recommendations Gout: Overall stable. Will monitor closely. Chronic diastolic CHF: Continue with above plan of care. Will monitor input output closely. Continue to hold Lasix Anemia of chronic disease with iron deficiency: We will monitor hemoglobin. Transfuse if hemoglobin less than 7.5. GERD: Continue with IV Pepcid CODE STATUS: Full code DVT prophylaxis: Lovenox [facility] [id number] minutes: Patient agreeable to long-term acute care facility. Await approval.
--- NOTE | 2021-11-03 09:19 | P.PN ---
Subjective Date of Service: 11/03/21 Primary Care Provider: unknown; Oncology-Dr. Mancera [facility] Oncology Chief Complaint: s/p Exporatory laparotomy with LEFT end / hartmanns Subjective: Improving Physical Examination - Vital Signs Temperature: 98 F Blood Pressure: 152/90 Pulse: 114 Respirations: 20 Pulse Ox (%): 97 - Physical Exam General: Alert, In no apparent distress, Cooperative Respiratory: Diminished Cardiovascular: Other (tachycardia @ times) Gastrointestinal: Other (soft, mild appropriate TTP, improving, IZZY appears murky, colostomies remain viable, LLQ remains congested but functional, RUQ remains functional, pink viable, nina in place, few nina removed, no infection, fat necrosis only. ) - Studies Medications List Reviewed: Yes Assessment And Plan - Current Problems (Diagnosis) (1) Perforated sigmoid colon Current Visit: Yes Status: Acute Plan: s/p 10-20-21 - Exploratory laparotomy washout left transverse loop colostomy s/p 10-26-2021 - exploratory laparotomy, washout, hartmanns procedure Gen: Continue IV pain medication PRN ,will transition to PO soon when NGT out, CVS: tachycardia improving Pulm: extubated, incentive spirometry GI: + stool / bowel function via colostomy, can anticipate function in colostomy bag as well as per rectum as patient did have stool burden in residual distal colon, monitor both colostomies, , serial exams, keep IZZY for now, NGT to LIWS FEN: total IVF to 100 cc/hr, continue electrolyte replacement protocol, nutrition: TPN / PICC Endo: continue insulin protocol Prophylaxis: DVT prophylaxis to continue with heparin Placement / Rehab: continue PT/OT ambulate with assist, patient to remain in ICU ID: change antibiotics with zosyn Damon out Daily labs to continue Wound: daily dressing changes with iodoform to midline wound between nina, remove nina in 7-10 days LTAC soon Physician Review Additional Text: COVID: negative Initial CT scan: FINDINGS: Lower chest: No acute abnormality. Liver: No acute abnormality or suspicious lesions. Biliary: No biliary ductal dilatation. Stomach: No significant focal abnormality. Duodenum: No significant focal abnormality. Pancreas: No significant abnormality. Spleen: No significant abnormality. Adrenal: No suspicious lesions. Kidney/ureter: No hydronephrosis. No renal calculi. Too small to characterize and/or benign appearing renal lesions are noted. Retroperitoneum: No retroperitoneal adenopathy. Vascular: No aneurysm. Bowel: Known rectal mass is again identified. The sigmoid colon is thickened. There is likely a perforation of the sigmoid with reactive thickening of the distal small bowel. Multiple air-fluid levels are present.. Normal appendix. Peritoneum: Free air is present. A small though not well-defined fluid collection is present within the ileocolic mesentery. Umbilical hernia containing fluid and free air. Bladder: Grossly unremarkable. Reproductive: No adnexal masses. Bones: No acute fracture. Other: n/a IMPRESSION: Free air present consistent with perforation of a hollow viscus. Known rectal mass again identified with the suspected site of perforation at the mid to distal sigmoid, possibly as a result of obstruction due to the constricting rectal mass. No drainable abscess at this time. Recommend surgical consultation. Follow up CT scan: FINDINGS: Lower chest: Port tip in the right atrium. Cardiomegaly. Liver: No acute abnormality or suspicious lesions. Biliary: No biliary ductal dilatation. Stomach: No significant focal abnormality. Duodenum: No significant focal abnormality. Pancreas: No significant abnormality. Spleen: No significant abnormality. Adrenal: No suspicious lesions. Kidney/ureter: No hydronephrosis. No renal calculi. Too small to characterize and/or benign appearing renal lesions are noted. Retroperitoneum: No retroperitoneal adenopathy. Vascular: No aneurysm. Bowel: Increasing small bowel dilatation with multiple air-fluid levels. For example, a segment of small bowel in the left hemiabdomen previously measured 3 cm and now measures 3.6 cm. Re- demonstrated small bowel wall thickening at the ilium. Known rectal mass is similar to prior. Peritoneum: Free air volume is similar to yesterday. The free fluid volume is also similar. Umbilical hernia containing free air and fluid. Bladder: Contrast present within the bladder. Reproductive: No adnexal masses. Bones: No acute fracture. IMPRESSION: Similar volume of free air but increasing small bowel dilatation concerning for either worsening small bowel obstruction or ileus. The site of perforation is likely at the sigmoid. Surgery #1: Date: 10/20/21 16:54 Preoperative diagnosis: Perforated Colon Postoperative diagnosis: Perforated Colon Primary procedure: Exploratory Laparotomy with Transverse Loop Colostomy Secondary procedure: Primary Repair of Ventral Umbilical Hernia Other procedure(s): Liver punch biopsy Anesthesia: GETA Estimated blood loss: <20cc Specimen: Liver punch biopsy, hernia contents - omentum Findings: perforation @ sigmoid, liver nodule concerning for met, incar umb hernia Complications: None Drain(s): IZZY drain (10mm Flat IZZY) Transferred to: ICU Condition: Good Surgery #2: Date of procedure 10/26/2021 Preoperative diagnosis: Abdominal abscess/infection Postoperative diagnosis: Abdominal abscess/infection Primary procedure: Exploratory laparotomy with end sigmoid colostomy Secondary procedure: Partial sigmoid colectomy and abdominal washout Other procedure: Drainage of abdominal/pelvic abscess Estimated blood loss less than 100 cc Specimen: Partial sigmoid colectomy Findings large firm dry stool in pelvis and abdominal abscesses Complications: None Drain: IZZY drain. Pathology: DIAGNOSIS Liver, biopsy: - Small fragment of hepatic tissue with associated inflamed fibrovascular tissue - No malignancy identified Soft tissue, designated ventral umbilical hernia contents, herniorrhaphy: - Skin and fibroadipose tissue with acute inflammation Physical exam: General: Alert, Oriented x3, Cooperative HEENT: Atraumatic, Normocephalic, PERRLA. Dry mouth Neck: Supple, 2+ carotid pulse no bruit, JVD not distended Respiratory: Early. Patient on room air. Cardiovascular: Mild tachycardia Gastrointestinal: Postsurgical changes noted. [address] in place. Pain controlled. Musculoskeletal: No clubbing, No swelling Neurological: Normal speech, Normal strength at 5/5 x4 extr, Normal tone External genitalia: No edema, No lesions Impression: Abdominal pain secondary to mid to distal sigmoid perforation with small bowel dilation concerning for small bowel obstruction versus ileus complicated with history of rectal carcinoma with recent chemoradiation treatment status post exploratory laparotomy with transverse loop colostomy, primary repair of ventral umbilical hernia and liver punch biopsy further complicated with abdominal abscess status post exploratory laparotomy with end sigmoid colostomy, partial sigmoid colectomy and abdominal washout with drainage of abdominal/pelvic abscess Hypertension Chronic renal disease stage III Gout Chronic diastolic CHF Anemia of chronic disease with iron deficiency GERD Plan: Abdominal pain secondary to mid to distal sigmoid perforation with small bowel dilation concerning for small bowel obstruction versus ileus complicated with history of rectal carcinoma with recent chemoradiation treatment status post exploratory laparotomy with transverse loop colostomy, primary repair of ventral umbilical hernia and liver punch biopsy further complicated with abdominal abscess status post exploratory laparotomy with end sigmoid colostomy, partial sigmoid colectomy and abdominal washout with drainage of abdominal/pelvic abscess: Patient doing well post second surgery. Patient on room air. Still with increased fatigue. PT to evaluate. Patient remains on TPN, IV antibiotic therapymeropenem, and DVT prophylaxisLovenox. Patient being evaluated for long-term acute care facility placement to continue treatment. Will discuss with surgery on plan of care. Patient agreeable to go to LTAC. Hypertension: IV medication available. Chronic renal disease stage III: Continue TPN. Overall stable. Will monitor renal function closely. Continue with nephrology recommendations Gout: Overall stable. Will monitor closely. Chronic diastolic CHF: Continue with above plan of care. Will monitor input output closely. Continue to hold Lasix Anemia of chronic disease with iron deficiency: We will monitor hemoglobin. Transfuse if hemoglobin less than 7.5. GERD: Continue with IV Pepcid CODE STATUS: Full code DVT prophylaxis: Lovenox Advance care [id number] minutes: Patient agreeable to long-term acute care facility. Await approval.
--- NOTE | 2021-11-03 11:15 | P.DS ---
Admission Date: 10/19/21 Discharge Date: 11/03/21 Primary Care Provider: unknown; Oncology-Dr. Mancera [facility] Oncology Disposition: PENITENTIARY ACUTE CARE FACILITY Discharge Condition: GOOD Reason for Admission: s/p Exporatory laparotomy with LEFT end / hartmanns Consultations: Surgery-Dr. Fernández Pulmonary-Dr. Huitron Nephrology-Dr. Jo Procedures: COVID: negative Initial CT scan: FINDINGS: Lower chest: No acute abnormality. Liver: No acute abnormality or suspicious lesions. Biliary: No biliary ductal dilatation. Stomach: No significant focal abnormality. Duodenum: No significant focal abnormality. Pancreas: No significant abnormality. Spleen: No significant abnormality. Adrenal: No suspicious lesions. Kidney/ureter: No hydronephrosis. No renal calculi. Too small to characterize and/or benign appearing renal lesions are noted. Retroperitoneum: No retroperitoneal adenopathy. Vascular: No aneurysm. Bowel: Known rectal mass is again identified. The sigmoid colon is thickened. There is likely a perforation of the sigmoid with reactive thickening of the distal small bowel. Multiple air-fluid levels are present.. Normal appendix. Peritoneum: Free air is present. A small though not well-defined fluid collection is present within the ileocolic mesentery. Umbilical hernia containing fluid and free air. Bladder: Grossly unremarkable. Reproductive: No adnexal masses. Bones: No acute fracture. Other: n/a IMPRESSION: Free air present consistent with perforation of a hollow viscus. Known rectal mass again identified with the suspected site of perforation at the mid to distal sigmoid, possibly as a result of obstruction due to the constricting rectal mass. No drainable abscess at this time. Recommend surgical consultation. Follow up CT scan: FINDINGS: Lower chest: Port tip in the right atrium. Cardiomegaly. Liver: No acute abnormality or suspicious lesions. Biliary: No biliary ductal dilatation. Stomach: No significant focal abnormality. Duodenum: No significant focal abnormality. Pancreas: No significant abnormality. Spleen: No significant abnormality. Adrenal: No suspicious lesions. Kidney/ureter: No hydronephrosis. No renal calculi. Too small to characterize and/or benign appearing renal lesions are noted. Retroperitoneum: No retroperitoneal adenopathy. Vascular: No aneurysm. Bowel: Increasing small bowel dilatation with multiple air-fluid levels. For example, a segment of small bowel in the left hemiabdomen previously measured 3 cm and now measures 3.6 cm. Re- demonstrated small bowel wall thickening at the ilium. Known rectal mass is similar to prior. Peritoneum: Free air volume is similar to yesterday. The free fluid volume is also similar. Umbilical hernia containing free air and fluid. Bladder: Contrast present within the bladder. Reproductive: No adnexal masses. Bones: No acute fracture. IMPRESSION: Similar volume of free air but increasing small bowel dilatation concerning for either worsening small bowel obstruction or ileus. The site of perforation is likely at the sigmoid. Surgery #1: Date: 10/20/21 16:54 Preoperative diagnosis: Perforated Colon Postoperative diagnosis: Perforated Colon Primary procedure: Exploratory Laparotomy with Transverse Loop Colostomy Secondary procedure: Primary Repair of Ventral Umbilical Hernia Other procedure(s): Liver punch biopsy Anesthesia: GETA Estimated blood loss: <20cc Specimen: Liver punch biopsy, hernia contents - omentum Findings: perforation @ sigmoid, liver nodule concerning for met, incar umb hernia Complications: None Drain(s): IZZY drain (10mm Flat IZZY) Transferred to: ICU Condition: Good Surgery #2: Date of procedure 10/26/2021 Preoperative diagnosis: Abdominal abscess/infection Postoperative diagnosis: Abdominal abscess/infection Primary procedure: Exploratory laparotomy with end sigmoid colostomy Secondary procedure: Partial sigmoid colectomy and abdominal washout Other procedure: Drainage of abdominal/pelvic abscess Estimated blood loss less than 100 cc Specimen: Partial sigmoid colectomy Findings large firm dry stool in pelvis and abdominal abscesses Complications: None Drain: IZZY drain. Pathology: DIAGNOSIS Liver, biopsy: - Small fragment of hepatic tissue with associated inflamed fibrovascular tissue - No malignancy identified Soft tissue, designated ventral umbilical hernia contents, herniorrhaphy: - Skin and fibroadipose tissue with acute inflammation Medical Problem List: Abdominal pain secondary to mid to distal sigmoid perforation with small bowel dilation concerning for small bowel obstruction versus ileus complicated with history of rectal carcinoma with recent chemoradiation treatment status post exploratory laparotomy with transverse loop colostomy, primary repair of ventral umbilical hernia and liver punch biopsy further complicated with abdominal abscess status post exploratory laparotomy with end sigmoid colostomy, partial sigmoid colectomy and abdominal washout with drainage of abdominal/pelvic abscess Hypertension Chronic renal disease stage III Gout Chronic diastolic CHF Anemia of chronic disease with iron deficiency GERD Brief History of Present Illness: 56-year -[place] male past medical history of hypertension, gout, rectal cancer diagnosed via colonoscopy earlier this year. Patient currently getting chemoradiation at [facility]. Patient presented with abdominal pain to the left lower quadrant. CT scan revealed small perforation around the sigmoid colon. Patient was admitted for treatment. Hospital Course: Patient presented with abdominal pain secondary to mid to distal sigmoid perforation with small bowel dilation concerning for small bowel obstruction versus ileus. This was complicated with history of rectal carcinoma with recent chemoradiation. Patient was admitted for treatment. Patient seen and evaluated by surgery. His condition did not improve. Patient required surgical intervention. Initial surgery included exploratory laparotomy with transverse loop colostomy and primary repair of ventral umbilical hernia and liver punch biopsy. Post procedure patient did well but then required another surgical intervention due to abdominal abscess. Second surgical intervention included exploratory laparotomy with end sigmoid colostomy, partial sigmoid colectomy and abdominal washout with drainage of abdominal/pelvic abscess. Patient has done well since extubation. Patient currently on IV Zosyn, DVT prophylaxisLovenox, and TPN. Patient was evaluated for long-term acute care facility placement. Patient improved. Surgery agrees with plan of care. Patient will be transferred to long-term acute care facility to continue rehabilitation and further treatment. Continue current medications at this time. Patient stable for transfer. Patient with underlying hypertension. Continue IV metoprolol as needed. Patient with chronic renal disease stage III. Overall stable. Patient curre ntly on TPN. Nephrology consulted during the hospital stay. This can be continued at the LTAC facility. Patient with history of gout. Overall stable. Patient with chronic diastolic CHF. Currently holding Lasix at this time. Patient with anemia chronic disease with iron deficiency. Overall stable. Transfuse if hemoglobin less than 7.5. Patient with underlying GERD. Continue IV Pepcid. Vital Signs/Physical Exam: Temp Pulse Resp BP Pulse Ox 98 F 107 H 22 H 140/96 H 92 11/03/21 11:13 11/03/21 11:13 11/03/21 11:13 11/03/21 11:13 11/03/21 11:13 General: Alert, In no apparent distress, Oriented x3, Cooperative HEENT: Atraumatic Neck: Supple Respiratory: Clear to auscultation bilaterally Cardiovascular: Normal pulses Gastrointestinal: Soft and benign, Other (Postsurgical changes noted. Pain controlled) Integumentary: No tenderness/swelling, No erythema, No warmth, No cyanosis Neurological: Normal speech, Normal strength at 5/5 x4 extr, Normal tone, Normal affect Laboratory Data at Discharge: WBC 10.50 K/uL (4.3-10.9) 11/03/21 05:20 Hgb 9.6 g/dL (13.6-17.9) L 11/03/21 05:20 Hct 30.2 % (39.6-49.0) L 11/03/21 05:20 Plt Count 483 K/uL (152-406) H 11/03/21 05:20 Sodium 141 mmol/L (136-145) 11/03/21 05:20 Potassium 3.9 mmol/L (3.5-5.1) 11/03/21 05:20 BUN 21 mg/dL (7-18) H 11/03/21 05:20 Creatinine 1.02 mg/dL (0.55-1.3) 11/03/21 05:20 Glucose 157 mg/dL (74-106) H 11/03/21 05:20 Phosphorus 2.3 mg/dL (2.5-4.9) L 10/30/21 05:15 Magnesium 2.3 mg/dL (1.8-2.4) 11/03/21 05:20 Total Bilirubin 1.7 mg/dL (0.2-1.0) H 11/03/21 05:20 AST 34 U/L (15-37) 11/03/21 05:20 ALT 28 U/L (12-78) 11/03/21 05:20 Alkaline Phosphatase 93 U/L (45-117) 11/03/21 05:20 Lipase 21 U/L (73-393) L 10/19/21 15:10 Home Medications: Carvedilol [Coreg] 25 mg PO BID 10/22/21 Furosemide [Lasix] 40 mg PO DAILY 10/22/21 Physician Discharge Instructions: Patient presented with abdominal pain secondary to mid to distal sigmoid perforation with small bowel dilation concerning for small bowel obstruction versus ileus. This was complicated with history of rectal carcinoma with recent chemoradiation. Patient was admitted for treatment. Patient seen and evaluated by surgery. His condition did not improve. Patient required surgical intervention. Initial surgery included exploratory laparotomy with transverse loop colostomy and primary repair of ventral umbilical hernia and liver punch biopsy. Post procedure patient did well but then required another surgical intervention due to abdominal abscess. Second surgical intervention included exploratory laparotomy with end sigmoid colostomy, partial sigmoid colectomy and abdominal washout with drainage of abdominal/pelvic abscess. Patient has done well since extubation. Patient currently on IV Zosyn, DVT prophylaxisLovenox, and TPN. Patient was evaluated for long-term acute care facility placement. Patient improved. Surgery agrees with plan of care. Patient will be transferred to long-term acute care facility to continue rehabilitation and further treatment. Continue current medications at this time. Patient stable for transfer. Patient with underlying hypertension. Continue IV metoprolol as needed. Patient with chronic renal disease stage III. Overall stable. Patient currently on TPN. Nephrology consulted during the hospital stay. This can be continued at the LTAC facility. Patient with history of gout. Overall stable. Patient with chronic diastolic CHF. Currently holding Lasix at this time. Patient with anemia chronic disease with iron deficiency. Overall stable. Transfuse if hemoglobin less than 7.5. Patient with underlying GERD. Continue IV Pepcid. Diet: N.p.o. Activity: Fall precautions Followup: SHADIA RENO [Primary Care Provider] - Time spent managing pt's care (in minutes): 55
[2021-11-03 13:43] VITALS: TEMP 97.8
[2021-11-03] MEDS: AA 5%/D20W/ELECTROLYTES-TPN 2,000 ML, Lipids 20% 250 ML with MULTIVITAMINS INJ 10 ML IV SCH ×3 (16:50)
[2021-11-03] MEDS ORDERED: PIPER TAZO 3.375 GM in NA CHLORIDE 0.9% 100 ML IV SCH (17:00)
[2021-11-03] MEDS ORDERED: Meropenem 1,000 MG in NA CHLORIDE 0.9% 100 ML IV SCH (17:00)
[2021-11-03 18:47] VITALS: BP 153/98
== END 2021-11-03 17:50 | DRG 329 ==
LOC: ER 14:08 → ERHOLD 19:08 → 3RD-ICU 10-22 00:33 → 2ND 10-24 23:35 → 3RD-ICU 10-26 13:13
PROVIDERS: ADMIT Internal Medicine; ATTEND Internal Medicine
PROC: 0WQF0ZZ Repair Abdominal Wall, Open Approach (ICD-10-PCS; 2021-10-20)
PROC: 0FB00ZX Excision of Liver, Open Approach, Diagnostic (ICD-10-PCS; 2021-10-20)
PROC: 0DBU0ZZ Excision of Omentum, Open Approach (ICD-10-PCS; 2021-10-20)
PROC: 0D1L0Z4 Bypass Transverse Colon to Cutaneous, Open Approach (ICD-10-PCS; principal; 2021-10-20 11:00)
PROC: 0DBN0ZZ Excision of Sigmoid Colon, Open Approach (ICD-10-PCS; 2021-10-26)
PROC: 0D1N0Z4 Bypass Sigmoid Colon to Cutaneous, Open Approach (ICD-10-PCS; 2021-10-26)
PROC: 0W9G0ZX Drainage of Peritoneal Cavity, Open Approach, Diagnostic (ICD-10-PCS; 2021-10-26)
PROC: 5A1955Z Respiratory Ventilation, Greater than 96 Consecutive Hours (ICD-10-PCS; 2021-10-26)
PROC: 02H633Z Insertion of Infusion Device into Right Atrium, Percutaneous Approach (ICD-10-PCS; 2021-10-27)
PROC: 30233N1 Transfusion of Nonautologous Red Blood Cells into Peripheral Vein, Percutaneous Approach (ICD-10-PCS; 2021-10-29)
DX: K63.1 Perforation of intestine (nontraumatic) (principal); K65.1 Peritoneal abscess; J96.90 Respiratory failure, unspecified, unspecified whether with hypoxia or hypercapnia; I13.0 Hypertensive heart and chronic kidney disease with heart failure and stage 1 through stage 4 chronic kidney disease, or unspecified chronic kidney disease; I50.32 Chronic diastolic (congestive) heart failure; K56.609 Unspecified intestinal obstruction, unspecified as to partial versus complete obstruction; K56.7 Ileus, unspecified; C20 Malignant neoplasm of rectum; K42.0 Umbilical hernia with obstruction, without gangrene; N17.9 Acute kidney failure, unspecified; K52.0 Gastroenteritis and colitis due to radiation; T81.10XA Postprocedural shock unspecified, initial encounter; E87.1 Hypo-osmolality and hyponatremia; E44.0 Moderate protein-calorie malnutrition; N18.30 Chronic kidney disease, stage 3 unspecified; M10.9 Gout, unspecified; D50.9 Iron deficiency anemia, unspecified; K21.9 Gastro-esophageal reflux disease without esophagitis; R16.0 Hepatomegaly, not elsewhere classified; E87.5 Hyperkalemia; I95.9 Hypotension, unspecified; Z20.822 Contact with and (suspected) exposure to COVID-19; Z68.27 Body mass index [BMI] 27.0-27.9, adult
CPT/HCPCS: 0240U; 36415; 71045; 74018; 74176; 74177; 80048; 80053; 80076; 80202; 82040; 82607; 82728; 82805; 82947; 83540; 83605; 83690; 83735; 83880; 84100; 84132; 84145; 84466; 85014; 85018; 85025; 86850; 86900; 86901; 87040; 88302; 88305; 88307; 94002; 94003; 94010; 94760; 96374; 96375; 97116; 97161; 97164; 97530; 97760; 99285; C9113; J0330; J0360; J1170; J1335; J1644; J1650; J1940; J2185; J2250; J2270; J2370; J2405; J2543; J2704; J2710; J2997; J3010; J3370; J3480; J7030; J7040; J7042; J7050; J7060; J7120; P9016; P9047; Q9967

== ENCOUNTER 2022-10-06 16:31 | Emergency (ER) | payer OTHER ==
--- NOTE | 2022-10-06 16:45 | ER ---
Nurse's Notes [facility] Name: Edwin Young Age: 57 yrs Sex: Male : 1965 Arrival Date: 10/06/2022 Time: 16:33 Bed Waiting Private MD: Diagnosis: Encounter for issue of repeat prescription Presentation: 10/06 16:41 Chief complaint: Takes Lasix 40 mg PO daily, has been out for 2 days, needs refill. hb Coronavirus screen: At this time, the client does not indicate any symptoms associated with coronavirus-19. Ebola Screen: No symptoms or risks identified at this time. Initial Sepsis Screen: Does the patient meet any 2 criteria? No. Patient's initial sepsis screen is negative. Does the patient have a suspected source of infection? No. Patient's initial sepsis screen is negative. Risk Assessment: Do you want to hurt yourself or someone else? Patient reports no desire to harm self or others. Onset of symptoms was October 06, 2022. 16:41 Method Of Arrival: Ambulatory hb 16:41 Acuity: JASWINDER 5 hb Historical: - Allergies: 16:42 No Known Allergies; hb - PMHx: 16:42 Hypertension; Gout; hb - Immunization history:: Adult Immunizations up to date. - Social history:: Smoking status: Patient reports the use of cigarette tobacco products. Screenin:43 [facility] ED Fall Risk Assessment (Adult) Score/Fall Risk Level 0 - 2 = Low Risk hb Oriented to surroundings. Abuse screen: Denies threats or abuse. Denies injuries from another. Nutritional screening: No deficits noted. Tuberculosis screening: No symptoms or risk factors identified. Assessment: 16:46 General: Appears in no apparent distress. Behavior is calm, cooperative. Pain: Denies hb pain. Neuro: Level of Consciousness is awake, alert, obeys commands, Oriented to person, place, time, situation. Cardiovascular: Patient's skin is warm and dry. Respiratory: Respiratory effort is even, unlabored, Respiratory pattern is regular, symmetrical. Vital Signs: 16:41 BP 159 / 97; Pulse 88; Resp 16; Temp 98.1; Pulse Ox 100% ; Weight 113.4 kg; Height 6 hb ft. 2 in. (187.96 cm); Pain 0/10; 16:41 Body Mass Index 32.10 (113.40 kg, 187.96 cm) hb ED Course: 16:33 Patient arrived in ED. mr 16:35 [facility] kb 16:35 Ky Walker MD is Attending Physician. kb 16:42 Triage completed. hb 16:43 Arm band placed on. hb 16:43 Patient has correct armband on for positive identification. hb 16:43 No provider procedures requiring assistance completed. Patient did not have IV access hb during this emergency room visit. Administered Medications: No medications were administered Medication: 16:43 VIS not applicable for this client. hb Outcome: 16:44 Discharge ordered by . kb 16:46 Discharged to home ambulatory. hb 16:46 Discharge instructions given to patient, Instructed on discharge instructions, follow up and referral plans. medication usage, Demonstrated understanding of instructions, follow-up care, medications, Prescriptions given X 1. 16:47 Patient left the ED. hb Signatures: Ana Laura Yusuf FNP-C FNP-Brooke Gibson Fadumo Brantlye, RN RN hb
--- NOTE | 2022-10-06 16:45 | EDPHYS ---
Physician Documentation [facility] Name: Edwin Young Age: 57 yrs Sex: Male : 1965 Arrival Date: 10/06/2022 Time: 16:33 Bed Waiting Private MD: ED Physician Ky Walker HPI: 10/06 16:45 This 57 yrs old Black Male presents to ER via Ambulatory with complaints of Medication kb Refill. 16:45 The patient presents to the emergency department requesting refill(s) for: Lasix. The kb patient chronically suffers from hypertension. The patient has not experienced similar symptoms in the past. The patient has not recently seen a physician. Pt reports he ran out of lasix and doesn't see his PCP until Monday so he came in for a refill. Has no complaints at this time. Historical: - Allergies: 16:42 No Known Allergies; hb - PMHx: 16:42 Hypertension; Gout; hb - Immunization history:: Adult Immunizations up to date. - Social history:: Smoking status: Patient reports the use of cigarette tobacco products. ROS: 16:45 Constitutional: Negative for fever, chills, and weight loss. kb 16:45 All other systems are negative. Exam: 16:45 Constitutional: This is a well developed, well nourished patient who is awake, alert, kb and in no acute distress. Head/Face: Normocephalic, atraumatic. ENT: Moist Mucous membranes Cardiovascular: Regular rate and rhythm with a normal S1 and S2. No gallops, murmurs, or rubs. No pulse deficits. Respiratory: Respirations even and unlabored. No increased work of breathing. Talking in full sentences Skin: Warm, dry with normal turgor. Normal color. MS/ Extremity: Pulses equal, no cyanosis. Neurovascular intact. Full, normal range of motion. Neuro: Awake and alert, GCS 15, oriented to person, place, time, and situation. Moves all extremities. Normal gait. Psych: Awake, alert, with orientation to person, place and time. Behavior, mood, and affect are within normal limits. Vital Signs: 16:41 BP 159 / 97; Pulse 88; Resp 16; Temp 98.1; Pulse Ox 100% ; Weight 113.4 kg; Height 6 hb ft. 2 in. (187.96 cm); Pain 0/10; 16:41 Body Mass Index 32.10 (113.40 kg, 187.96 cm) MDM: 16:44 Patient medically screened. kb 16:45 Data reviewed: vital signs, nurses notes. Data interpreted: Pulse oximetry: on room air kb is 100 %. Interpretation: normal. Counseling: I had a detailed discussion with the patient and/or guardian regarding: the historical points, exam findings, and any diagnostic results supporting the discharge/admit diagnosis, the need for outpatient follow up, a family practitioner, to return to the emergency department if symptoms worsen or persist or if there are any questions or concerns that arise at home. Administered Medications: No medications were administered Disposition: 18:49 Co-signature as Attending Physician, Ky Walker MD I agree with the assessment and rt plan of care. Disposition Summary: 10/06/22 16:44 Discharge Ordered Location: Home kb Condition: Stable kb Diagnosis - Encounter for issue of repeat prescription kb Followup: kb - With: Emergency Department - When: As needed - Reason: Worsening of condition Followup: kb - With: Private Physician - When: 2 - 3 days - Reason: Recheck today's complaints, Continuance of care, Re-evaluation by your physician Discharge Instructions: - Discharge Summary Sheet kb - Medicine Refill at the Emergency Department kb Forms: - Medication Reconciliation Form kb - Thank You Letter kb - Antibiotic Education kb - Prescription Opioid Use kb Prescriptions: - Lasix 40 mg Oral Tablet - take 1 tablet by ORAL route once daily for 30 days; 30 tablet; Refills: 0, kb Product Selection Permitted Signatures: Ana Laura Yusuf FNP-C FNP-Ckb Baxter, Heather, TJ RN Ky Walker MD MD rt
[2022-10-06 16:52] VITALS: BP 159/97; TEMP 98.1; O2SAT 100
--- OUTSIDE RECORDS SUMMARY | 2022-10-06 17:40 | XMS REPORT | Continuity of Care Document ---
:1965 Author Organization [facility] t Address [address] [place] [address] Care Team Providers Name Role Phone Asked, No Pcp Primary Care Physician Unavailable Tarsha Mancera Attending Clinician Unavailable Rhys Gramajo MD Attending Clinician [phone] DERRICK HOLT Attending Clinician Unavailable JENNY ULLOA Attending Clinician Unavailable MD DALLIN LIU Attending Clinician Unavailable NIKA DANGELO Attending Clinician Unavailable MD RHYS GRAMAJO Attending Clinician Unavailable JONATHAN COVINGTON Attending Clinician Unavailable Sam, Amir A Admitting Clinician Unavailable TANIA HAIRSTON Admitting Clinician Unavailable KNOW, DOES_NOT Admitting Clinician Unavailable DALLIN LIU Admitting Clinician Unavailable MD DALLIN LIU Admitting Clinician Unavailable NIKA DANGELO Admitting Clinician Unavailable MD NIKA DANGELO Admitting Clinician Unavailable Payers Payer Name Policy Type Policy Number Effective Date Expiration Date S ource Problems Condition Condition Condition Status Onset Resolution Last Treating Co mments Source Name Details Category Date Date Treatment Clinician Date Diarrhea Diarrhea Disease Active 2020-10 [facility] presumed presumed 00:00: Hospit a infectious infectious 00 l origin origin Hereditary Hereditary Disease Active 2021-1 [facility] cardiac cardiac 0-06 st amyloidosi amyloidosi 00:00: Ho spita s s 00 l Rectal Rectal Disease Active [facility] cancer cancer [facility]-13 st 00:00: Hospita 00 l Allergies, Adverse Reactions, Alerts Allergy Allergy Status Severity Reaction(s) Onset Inactive Treating Comm ents Source Name Type Date Date Clinician No Known DA Active U 2020-10 [facility] [place] [facility] 00:[facility]: [address] NO KNOWN Drug Active [facility] ALLERGIE Class ity of [facility] Social History Social Habit Start Date Stop Date Quantity Comments Source History SDOH [facility] Drinks History SDOH [facility] Tobacco use and 2021-08-01 2021-08-01 Smokeless tobacco [facility] exposure 00:00:00 00:00:00 non-user Hospital Alcohol intake 2021-08-01 2021-08-01 [facility] 00:[facility]:00 00:00:00 non-drinker Hospital (finding) History SDOH 2021-08-01 2021-08-01 1 [facility] Frequency 00:00:00 00:00:00 Hospita l Sex Assigned At [birth year] [facility] 00:[facility]00 [facility] Smoking Status Start Date Stop Date Source Never smoked tobacco [facility] Medications Ordered Filled Start Stop Current Ordering Indication Dosage Frequency Signature Comments Components Source Medication Medication Date Date Medication? Clinician (SIG) Name Name No known 2020-10 No No known [facility] medications 0-[address] 15:12: s [facility] 13 l No known 2020-10 No No known [facility] medications 0-[address] 15:12: s [facility] 13 l Immunizations Ordered Immunization Filled Immunization Date Status Commen ts Source Name Name FLUCELVAX QUAD PF 2021-07-[address] 00:00[facility]00 Hospital FLUCELVAX QUAD PF 2021-07-[address] 00[facility] Hospital Procedures Procedure Date / Time Performed Performing Clinician Dario crapenter CT CHEST EXTERNAL 2022-08-16 16:25:00 Rhys Gramajo [facility] KATIE Luna Plan of Care Planned Activity Planned Date Details Comments Source Future Scheduled 2022-09-26 Hepatitis C screening [facility] Test 23:54:04 (procedure) [code = 431486957] Future Scheduled 2022-09-26 COLONOSCOPY SCREENING [facility] Test 23:54:04 [code = COLONOSCOPY SCREENING] Future Scheduled 2022-09-26 SHINGLES VACCINES (1 Met [facility] Test 23:54:04 of 2) [code = SHINGLES VACCINES (1 of 2)] Future Scheduled 2022-09-26 INFLUENZA VACCINE Method [facility] Test 23:54:04 [code = INFLUENZA VACCINE] Future Scheduled 2022-09-26 COVID-19 VACCINE (5 - [facility] Test 23:54:04 Booster for Moderna series) [code = COVID-19 VACCINE (5 - Booster for Moderna series)] Future Scheduled 2022-08-26 HEPATITIS B VACCINES Met [facility] Test 02:17:57 (1 of 3 - 3-dose series) [code = HEPATITIS B VACCINES (1 of 3 - 3-dose series)] Future Scheduled 2022-08-26 Hepatitis C screening [facility] Test 02:17:57 (procedure) [code = [id number]] Future Scheduled 2022-08-26 COLONOSCOPY SCREENING [facility] Test 02:17:57 [code = COLONOSCOPY SCREENING] Future Scheduled 2022-08-26 SHINGLES VACCINES (1 Met [facility] Test 02:17:57 of 2) [code = SHINGLES VACCINES (1 of 2)] Future Scheduled 2022-08-26 INFLUENZA VACCINE Method [facility] Test 02:17:57 [code = INFLUENZA VACCINE] Future Scheduled 2022-08-26 COVID-19 VACCINE (5 - [facility] Test 02:17:57 Booster for Moderna series) [code = COVID-19 VACCINE (5 - Booster for Moderna series)] Encounters Start End Encounter Admission Attending Care Care Encounter Source Date/Time Date/Time Type Type Clinicians Facility Department ID 2022-09-15 Inpatient Tarsha ButtsWU RTX [id number] [facility] 00:08:00 00 [facility] 2022-02-13 Inpatient Tarsha ButtsWU RTX [id number] [facility] 15:50:00 64 [facility] 2022-01-14 Inpatient Tarsha ButtsWU RTX [id number] [facility] 16:09:00 81 [facility] 2022-09-01 2022-09-14 Outpatient EL Oh, Tarsha [facility] RTX [id number] [facility] 09:25:00 00:00:00 94 [facility] 2022-08-25 2022-08-25 Hospital [facility], 1.2.840.1 [id number] [facility] 08:26:09 23:59:00 Encounter Rhys [id number] Jeremy 3.430.2.7 Hospit a .3.968422 l .8 2022-08-25 2022-08-25 Hospital Rox, 1.2.840.1 [id number] [facility] 08:26:09 23:59:00 Encounter Rhys [id number] Jeremy 3.430.2.7 Hospit a .3.670811 l .8 2022-04-25 2022-04-25 Outpatient EL Oh, Tarsha [facility] [id number] [facility] 09:28:00 09:28:00 [id number] [facility] 2022-04-25 2022-04-25 Outpatient EL Oh, Tarsha [facility] RTX [id number] [facility] 09:28:00 09:28:00 74 [facility] 2022-01-14 2022-02-12 Outpatient EL Oh, Tarsha [facility] RTX [id number] [facility] 08:34:00 00:00:00 74 [facility] 2021-12-14 2022-01-13 Inpatient EL Oh, Tarsha [facility] RTX [id number] [facility] 14:32:00 00:00:00 52 [facility] 2021-12-27 2021-12-27 Inpatient EL Oh, Tarsha [facility] SUGL [id number] [facility] 10:30:00 09:30:00 05 [facility] 2021-12-21 2021-12-21 Outpatient EL Oh, Tarsha [facility] SUGL [id number] [facility] 09:11:00 09:11:00 36 [facility] 2021-10-18 2021-11-15 Inpatient EL Oh, Tarsha [facility] RTX [id number] [facility] 11:23:00 00:00:00 91 [facility] 2021-09-022021-09-14 Outpatient Tarsha Butts [facility] [id number] [facility] 10:13:00 00:00:00 86 [facility] 2021-09-08 2021-09-08 Outpatient Tarsha ButtsWU SUGL [id number] [facility] 08:46:00 08:46:00 74 [facility] 2021-08-06 2021-08-06 Outpatient DERRICK HOLT [facility] [id number] [place] 00:00:00 00:00:00 871 [facility] 2021-08-04 2021-08-04 Outpatient DERRICK HOLT [facility] [id number] [place] 00:00:00 00:00:00 776 [facility] 2021-08-01 2021-08-03 Outpatient LAILA, [facility] [id number] [place] 00:00:00 00:00:00 JENNY 205 [facility] 2021-07-23 2021-07-23 Outpatient DERRICK HOLT [facility] [id number] [place] 00:00:00 00:00:00 041 [facility] 2021-07-23 2021-07-23 Outpatient DERRICK HOLT [facility] [id number] [place] 00:00:00 00:00:00 991 [facility] 2021-07-21 2021-07-21 Outpatient DERRICK HOLT [facility] [id number] [place] 00:00:00 00:00:00 901 [facility] 2021-07-21 2021-07-21 Outpatient DERRICK HOLT [facility] [id number] [place] 00:00:00 00:00:00 867 [facility] 2021-06-28 2021-07-06 Inpatient LORETOGABBYAR [facility] 078 [id number] [place] 00:00:00 00:00:00 942 [facility] 2021-06-02 2021-06-02 Outpatient COVINGTONJONATHAN MUIR [facility] [id number] [place] 00:00:00 00:00:00 065 [facility] 2021-04-26 2021-04-26 Emergency X [facility] ERT [id number] [facility] 16:39:00 16:39:00 [facility] Results Test Description Test Time Test Comments Results Result [facility] e Comments - PET/CT TUMOR SK 2021-12-21 MIDTH 14:28:00 [facility] 1965 Sex: M Patient Name: GENO PRASAD Unit No: [id number] EXAMS: CPT CODE: [id number] PET/CT TUMOR SK MIDTH 29008 EXAMINATION: - PET/CT TUMOR SK MIDTH COMPARISON: PET/CT performed September 08, 2021 INDICATION: Restaging of rectal carcinoma CLINICAL HISTORY: 56-year-old male patient with a history of rectal carcinoma. He has undergone chemotherapy and radiation, and has recently undergone surgery LOCATION CODE: C3 TECHNIQUE: Following the IV administration of 10.65 mCi of F-18 labeled FDG, imaging of the body was then performed from the vertex of the skull to the mid thighs. Images were reviewed in standard orthogonal projections. Concordant CT imaging was also performed for localization and attenuation correction purposes only. The CT images do not constitute a diagnostic quality CT examination and were not used to diagnose disease independently of the PET imaging. All CT scans are performed using dose optimization techniques as appropriate to a performed exam including one or more of the following: ?Automated exposure control ?Adjustment of the mA and/or kV according to patient size ?Use of iterative reconstruction technique BLOOD GLUCOSE LEVEL: 98 mg/dl INJECTION TO SCAN TIME: 68 minutes FINDINGS: HEAD AND NECK: Tracer uptake in the brain and soft tissues of the neck is physiologic. CHEST: No FDG lung masses, consolidations or effusions are present. Right chest wall chemotherapy port remains present. Moderate dose infiltration is seen in the soft tissues of the left arm and there is uptake of tracer in left axillary lymph nodes. This uptake is not pathologic. There is no mediastinal or right axillary adenopathy. ABDOMEN AND PELVIS: Tracer uptake in the liver, spleen and tract is physiologic. There are new FDG avid postoperative changes in the midline abdominal wall. Bilateral abdominal ostomies are noted. A surgical drain remains present in the lower abdomen and there is increased uptake along the course of the drain of up to 5.7. Whether this represents reactive uptake to the placement of the drain are uptake in the more proximal sigmoid colon is unclear, as the drain follows the course of the [facility] NAME: GENO PRASAD [id number] [facility] [address] PHYS: [place] [address] : 1965 AGE: 56 SEX: M LOC: EMILYUC PHONE #: [phone] EXAM DATE: 12/21/2021 STATUS: REG CLI FAX #: [phone] RADIOLOGY NO: PAGE 1 Signed Report (CONTINUED) Patient Name: EGNO PRASAD Unit No: [id number] EXAMS: CPT CODE: [id number] PET/CT TUMOR SK BS MIDTH 29205 <Continued> sigmoid colon. Uptake in the more proximal sigmoid colon of up to 6.8 was seen on the prior exam. There is continued thickening abnormal uptake in the rectum. Area of uptake measures approximately 5.2 x 2.8 cm with uptake values up to 7.2 (previously 4.7 x 2.4 cm when remeasured in a similar manner with an uptake of 6.5). However, exact comparison is difficult given the changes related to the recent surgery. Scattered areas of nonspecific uptake are seen in the more proximal bowel MUSCULOSKELETAL SYSTEM: Areas of osteoarthritic uptake are seen around the right shoulder, both hips and in the facet joints of the lower lumbar spine. No suspicious bony lesions are identified. IMPRESSION: Interval postsurgical changes as above. There is continued increased uptake and thickening in the rectum. Area of uptake appears slightly more prominent compared to the prior study but the patient has undergone recent surgery and the surgery may somewhat confound the picture. There is also continued increased uptake along the proximal sigmoid colon. As a surgical drain overlies this area, the relative contribution of possible reactive change to malignancy cannot be ascertained. No areas suspicious for metastatic disease identified Other findings as above at 1428 Reported and signed by: Gregoria Reynolds MD CC: Tarsha Mancera MD Technologist: Alessia Bradshaw, RT(M)(CT); Linnea Vasquez RT(N) Transcrpt Date/Tm/Trnsp: 12/21/2021 (1428) [email or web address] Orig Print D/T: S: 12/21/2021 (8672) [facility] NAME: GENO PRASAD [id number] [facility] [address] PHYS: [place] [address] : 1965 AGE: 56 SEX: M LOC: [facility] PHONE #: [phone] EXAM DATE: 12/21/2021 STATUS: REG CLI FAX #: [phone] RADIOLOGY NO: PAGE 2 Signed Report GLUCOSE 2021-12-21 09:50:00 Test Item Value Reference Range Interpretation Comme nts GLUCOSE (test code = GLU) 98 MG/DL 79-105 N Comments to Bag Bailer: FOR PETIs this a LINE draw? N- PET[facility]CT [id number] 13:41:00 [facility] : 1965 Sex: M Patient Name: GENO PRASAD Unit No: [id number] EXAMS: CPT CODE: [id number] PET/CT TUMOR [facility] [place] [address] EXAM: PET/CT scan INDICATION: MALIGNANT NEOPLASM OF RECTUM COMPARISON: None at this time LOCATION: [facility] TECHNIQUE: Approximately 60 minutes following the [...] vertebra. The maximum SUV is 2.2. There aredegenerative changes in this region on the corresponding CT scan. There are small right axillary lymph nodes, all measuring less than a centimeter in diameter, which demonstrate minimal hypermetabolic a ctivity. The maximum SUV is 1.4. There is [...] spine without and with contrast is recommended. [facility] NAME: GENO PRASAD [address] [address] PHYS: [place] [address] : 1965 AGE: 56 SEX: M LOC: DayronZNUC PHONE #: [phone] EXAM DATE: 09/08/2021 STATUS: DEP CLI FAX #: [phone] RADIOLOGY NO: PAGE 1 Signed Report (CONTINUED) Patient Name: GENO PRASAD Unit No: [id number] EXAMS: CPT CODE: [id number] PET/CT TUMOR SK BS MIDTH 76960 <Continued> There are small lymph nodes in the right axilla, measuring less than a centimeter in mean diameter each, demonstrating minimal hypermetabolic activity, with a maximum SUV of 1.4. These appear to most likely represent benign reactive lymph nodes. Otherwise unremarkable PET/CT scan. at 1341 Reported and signed by: Beau Marr MD CC: Shasha Mancera MD Technologist: Linnea Vasquez RT(N) Transcrpt Date/Tm/Trnsp: 09/10/2021 (1341) t.[email or web address] Orig Print D/T: S: 09/10/2021 (9684) [facility] NAME: GENO PRASAD [address] [address] PHYS: [place] [address] : 1965 AGE: 56 SEX: M LOC: [facility]UC PHONE #: [phone] EXAM DATE: 09/08/2021 STATUS: DEP CLI FAX #: [phone] RADIOLOGY NO: PAGE 2 Signed [id number] 09:44:00 Test Item Value Reference Range Interpretation Comments GLUCOSE (test code = GLU) 86 MG/DL 79-105 N SARS-CoV-2 (COVID-19) RNA [Presence] in Respiratory specimen by YVROSE with probe [id number] 18:54:41 Test Item Value Reference Range Interpretation Comments SARS-CoV-2 (COVID-19) RNA Not detected Not-Detected [Presence] in Respiratory specimen by YVROSE with probe detection (test code = 96844-9) Whether patient is employed in a healthcare setting (test code = 22192-2) Whether the patient has symptoms related to condition of interest (test code = 07921-1) Patient was hospitalized because of this condition (test code = 65140-7) Whether the patient was admitted to intensive care unit (ICU) for condition of interest (test code = 76748-2) Whether patient resides in a congregate care setting (test code = 80797-7) status (test code = 69482-9) BERNARDO DEE-CoV-2 (COVID-19) RNA [Presence] in Respiratory specimen by YVROSE with probe [id number] 16:30:19 Test Item Value Reference Range Interpretation Comments SARS-CoV-2 (COVID-19) RNA Not detected Not-Detected [Presence] in Respiratory specimen by YVROSE with probe detection (test code = 76499-7) Whether patient is employed in a healthcare setting (test code = 67069-3) Whether the patient has symptoms related to condition of interest (test code = 11760-6) Patient was hospitalized because of this condition (test code = 70899-4) Whether the patient was admitted to intensive care unit (ICU) for condition of interest (test code = 80487-8) Whether patient resides in a congregate care setting (test code = 71724-5) BERNARDO WAITE
== END 2022-10-06 16:47 | disposition home or self-care (01) ==
LOC: ER 16:31
DX: Z76.0 Encounter for issue of repeat prescription (principal)
CPT/HCPCS: 99282

== ENCOUNTER 2022-10-19 09:40 | Inpatient (IN) | payer OTHER ==
--- OUTSIDE RECORDS SUMMARY | 2022-10-19 09:44 | XMS REPORT | Continuity of Care Document ---
:1965 Author Organization [facility] t Address [address] [place] [address] Care Team Providers Name Role Phone Asked, No Pcp Primary Care Physician Unavailable Tarsha Mancera Attending Clinician Unavailable Rhys Gramajo MD Attending Clinician [phone] DERRICK HOLT Attending Clinician Unavailable JENNY [...] l origin origin Hereditary Hereditary Disease Active 2020-10 M [facility]i cardiac cardiac 0-06 st amyloidosi amyloidosi 00:00: Ho spita s s 00 l Rectal Rectal Disease Active [facility] cancer cancer 06-28 st 00:00: Hospita 00 l Allergies, Adverse Reactions, Alerts Allergy Allergy Status Severity Reaction(s) Onset Inactive Treating Comm ents Source Name Type Date Date Clinician No Known DA Active U 2020-10 [facility]ie 11-08 [place] [facility] 00:00: [address] NO KNOWN Drug Active [facility] ALLERGIE Class ity of S [facility] Social History Social Habit Start Date Stop Date Quantity Comments Source History SDOH [facility]ational [facility] Std Hospital Drinks History SDOH [facility] Binge Hospital Tobacco use and 2021-08-01 2021-08-01 Smokeless tobacco [facility] exposure 00:00:00 00:00:00 non-user Hospital Alcohol intake 2021-08-01 2021-08-01 Lifetime Nondenominational 00:00:00 00:00:00 non-drinker Hospital (finding) History SDOH 2021-08-01 2021-08-01 1 Nondenominational Alcohol Frequency 00:00:00 00:00:00 Hospita l Sex Assigned At [birth year] Nondenominational 00:00:00 00:00:00 Hospital Smoking Status Start Date Stop Date Source Never smoked tobacco [facility] Medications Ordered Filled Start Stop [...] Procedure Date / Time Performed Performing Clinician [facility] e CT CHEST EXTERNAL 2022-08-16 16:25:00 Rhys Gramajo [facility] STUDY Jeremy Plan of Care Planned Activity Planned Date Details Comments Source Future Scheduled 2022-09-26 Hepatitis C screening [facility] Test 23:54:04 (procedure) [code = 647270714] Future Scheduled 2022-09-26 COLONOSCOPY SCREENING [facility] Test 23:54:04 [code = COLONOSCOPY SCREENING] Future Scheduled 2022-09-26 SHINGLES VACCINES (1 Met [facility] Test 23:54:04 of 2) [code = SHINGLES VACCINES (1 of 2)] Future Scheduled 2022-09-26 INFLUENZA VACCINE Method [facility] Test 23:54:04 [code = INFLUENZA VACCINE] Future Scheduled 2022-09-26 COVID-19 VACCINE (5 - Me [facility] Test 23:54:04 Booster for Moderna series) [code = COVID-19 VACCINE (5 - Booster for Moderna series)] Future Scheduled 2022-09-26 Hepatitis C screening [facility] Test 23:54:04 (procedure) [code = 731135165] Future Scheduled 2022-09-26 COLONOSCOPY SCREENING [facility] Test 23:54:04 [code = COLONOSCOPY SCREENING] Future Scheduled 2022-09-26 SHINGLES VACCINES (1 Met [facility] Test 23:54:04 of 2) [code = SHINGLES VACCINES (1 of 2)] Future Scheduled 2022-09-26 INFLUENZA VACCINE Method [facility] Test 23:54:04 [code = INFLUENZA VACCINE] Future Scheduled 2022-09-26 COVID-19 VACCINE (5 - [facility] Test 23:54:04 Booster for Moderna series) [code = COVID-19 VACCINE (5 - Booster for Moderna series)] Future Scheduled 2022-08-26 HEPATITIS B VACCINES Met [facility] Test 02:17:57 (1 of 3 - 3-dose series) [code = HEPATITIS B VACCINES (1 of 3 - 3-dose series)] Future Scheduled 2022-08-26 Hepatitis C screening [facility] Test 02:17:57 (procedure) [code = 224954240] Future Scheduled 2022-08-26 COLONOSCOPY SCREENING [facility] Test 02:17:57 [code = COLONOSCOPY SCREENING] Future Scheduled 2022-08-26 SHINGLES VACCINES ([facility] Test 02:17:57 of 2) [code = SHINGLES VACCINES (1 of 2)] Future Scheduled 2022-08-26 [facility]ACCINE [facility] Test 02:17:57 [code = INFLUENZA VACCINE] Future Scheduled 2022-08-26 COVID-19 VACCINE (5 - [facility] Test 02:17:57 Booster for Moderna series) [code = COVID-19 VACCINE (5 - Booster for Moderna series)] Encounters Start End Encounter Admission Attending Care Care Encounter Source Date/Time Date/Time Type Type Clinicians Facility Department ID 2022-09-15 Inpatient Tarsha ButtsWU RTX [id number] [facility] 00:08:00 00 [facility] 2022-02-13 Inpatient Tarsha ButtsU RTX [id number] [facility] 15:50:00 64 [facility] 2022-01-14 Inpatient Tarsha ButtsU RTX [id number] [facility] 16:09:00 81 [facility] 2022-09-01 2022-09-14 Outpatient Tarsha ButtsWU RTX [id number] [facility] 09:25:00 00:00:00 94 [facility] 2022-08-25 2022-08-25 Hospital Rox, 1.2.840.1 [id number] Methodi 08:26:09 23:59:00 Encounter Rhys 14816.1.[address] Jeremy 3.430.2.7 Hospit a .3.700634 l .8 2022-08-25 2022-08-25 Hospital Rox, 1.2.840.1 [id number] [facility] 08:26:09 23:59:00 Encounter Rhys [id number] Jeremy 3.430.2.7 Hospit a .3.582416 l .8 2022-04-25 2022-04-25 Outpatient Tarsha Butts [facility]CAWU [id number] [facility] 09:28:00 09:28:00 [id number] [facility] 2022-04-25 2022-04-25 Outpatient Tarsha ButtsWU RTX [id number] [facility] 09:28:00 09:28:00 74 [facility] 2022-01-14 2022-02-12 Outpatient EL Oh, Tarsha [facility] RTX [id number] [facility] 08:34:00 00:00:00 74 [facility] 2021-12-14 2022-01-13 Inpatient EL Oh, Tarsha [facility] RTX [id number] [facility] 14:32:00 00:00:00 52 [facility] 2021-12-27 2021-12-27 Inpatient EL Oh, Tarsha HCAWU SUGL [id number] [facility] 10:30:00 09:30:00 05 [facility] 2021-12-21 2021-12-21 Outpatient EL Oh, Tarsha HCAWU SUGL [id number] [facility] 09:11:00 09:11:00 36 [facility] 2021-10-18 2021-11-15 Inpatient EL Oh, Tarsha [facility] RTX [id number] [facility] 11:23:00 00:00:00 91 [facility] 2021-09-02 2021-09-14 Outpatient EL Oh, Tarsha [facility]CAW[facility] RTX [id number] [facility] 10:13:00 00:00:00 86 [facility] 2021-09-08 2021-09-08 Outpatient EL Oh, Tarsha CLARKEWU SUGL [id number] [facility] 08:46:00 08:46:00 74 [facility] 2021-08-06 2021-08-06 Outpatient DALECARONDERRICK [facility] [id number] [place] 00:00:00 00:00:00 871 [facility] i 2021-08-04 2021-08-04 Outpatient JONATHONABIGAILK [facility] [id number] [place] 00:00:00 00:00:00 776 [facility] 2021-08-01 2021-08-03 Outpatient LAILA [facility] [id number] [place] 00:00:00 00:00:00 JENNY [address] 2021-07-23 2021-07-23 Outpatient JONATHON DERRICK [facility] [id number] [place] 00:00:00 00:00:[address] 2021-07-23 2021-07-23 Outpatient DERRICK HOLT [facility] [id number] [place] 00:00:00 00:00:00 991 [facility] 2021-07-21 2021-07-21 Outpatient DERRICK HOLT [facility] [id number] [place] 00:00:00 00:00:00 901 [facility] i 2021-07-21 2021-07-21 Outpatient DERRICK HOLT [facility] [id number] [place] 00:00:00 00:00:00 867 [facility] 2021-06-28 2021-07-06 Inpatient NIKA DANGELO [facility] [id number] [place] 00:00:00 00:00:00 942 [facility] 2021-06-02 2021-06-02 Outpatient JONATHAN COVINGTON [facility] [id number] [place] 00:00:00 00:00:00 065 [facility] i 2021-04-26 2021-04-26 Emergency X [facility] ERT [id number] [facility] 16:39:00 16:39:00 [facility] Results Test Description Test Time Test Comments Results Result [facility] e Comments - PET/CT TUMOR 2021-12-21 MIDTH 14:28:00 [facility] 1965 Sex: M Patient Name: GENO PRASAD Unit No: [id number] EXAMS: CPT CODE: [id number] PET/CT TUMOR BS MIDTH 09071 EXAMINATION: - PET/CT TUMOR SK BS MIDTH COMPARISON: PET/CT performed September 08, 2021 [...] the drain follows the course of the [facility] NAME: GENO PRASAD [address] [address] PHYS: [place] [address] : 1965 AGE: 56 SEX: M LOC: ZEarnestZNUC PHONE #: [phone] EXAM DATE: 12/21/2021 STATUS: REG CLI FAX #: [phone] RADIOLOGY NO: PAGE 1 Signed Report (CONTINUED) Patient Name: GENO PRASAD Unit No: [id number] EXAMS: CPT CODE: [id number] PET/CT TUMOR SK BS MIDTH 89903 <Continued> sigmoid colon. Uptake in the more [...] Linnea Vasquez RT(N) Transcrpt Date/Tm/Trnsp: 12/21/2021 (1428) t.[email or web address] Orig Print D/T: S: 12/21/2021 (1608) [facility] NAME: GENO PRASAD [address] [place] [address] PHYS: [place] [address] : 1965 AGE: 56 SEX: M LOC: Z.ZNUC PHONE #: [phone] EXAM DATE: 12/21/2021 STATUS: REG CLI FAX #: [phone] RADIOLOGY NO: PAGE 2 Signed Report GLUCOSE 2021-12-21 09:50:00 Test Item Value Reference Range Interpretation Comme nts GLUCOSE (test code = GLU) 98 MG/DL 79-105 N Comments to Seo Associate: FOR PETIs this a LINE draw? N- PET/CT TUMOR SK BS [id number] 13:41:00 [facility] : 1965 Sex: M Patient Name: GENO PRASAD Unit No: [id number] EXAMS: CPT CODE: [id number] PET/CT TUMOR SK BS MIDTH 03144 EXAM:PET/CT scan INDICATION: MALIGNANT NEOPLASM OF RECTUM COMPARISON: None at this time LOCATION: [facility] TECHNIQUE: Approximately 60 minutes following the intravenous [...] spine without and with contrast is recommended. [facility] NAME: GENO PRASAD [address] [facility] [address] PHYS: [place] [address] : 1965 AGE: 56 SEX: M LOC: ZEarnestZNUC PHONE #: [phone] EXAM DATE: 09/08/2021 STATUS: DEP CLI FAX #: [phone] RADIOLOGY NO: PAGE 1 Signed Report (CONTINUED) Patient Name: GENO PRASAD Unit No: [id number] EXAMS: CPT CODE: [id number] PET/CT TUMOR SK BS MIDTH 63057 <Continued> There are small lymph nodes in [...] (1341) t.SDR.PMT Orig Print D/T: S: 09/10/2021 (1344) [facility] NAME: GENO PRASAD [address] [facility] [address] PHYS: [place] [address] : 1965 AGE: 56 SEX: M LOC: ZEarnestZNUC PHONE #: [phone] EXAM DATE: 09/08/2021 STATUS: DEP CLI FAX #: [phone] RADIOLOGY NO: PAGE 2 Signed [id number] 09:44:00 Test Item Value Reference Range Interpretation Comments GLUCOSE (test code = GLU) 86 MG/DL 79-105 N SARS-CoV-2 (COVID-19) RNA [Presence] in Respiratory specimen by YVROSE with probe [id number] 18:54:41 Test Item Value Reference Range Interpretation Comments SARS-CoV-2 (COVID-19) RNA Not detected Not-Detected [Presence] in Respiratory specimen by YVROSE with probe detection (test code = 08924-9) Whether patient is employed in a healthcare setting (test code = 72409-4) Whether the patient has symptoms related to condition of interest (test code = 03663-3) Patient was hospitalized because of this condition (test code = 16208-1) Whether the patient was admitted to intensive care unit (ICU) for condition of interest (test code = 91336-7) Whether patient resides in a congregate care setting (test code = 93150-6) status (test code = 86345-5) BERNARDO DEE-CoV-2 (COVID-19) RNA [Presence] in Respiratory specimen by YVROSE with probe [id number] 16:30:19 Test Item Value Reference Range Interpretation Comments SARS-CoV-2 (COVID-19) RNA Not detected Not-Detected [Presence] in Respiratory specimen by YVROSE with probe detection (test code = 83932-4) Whether patient is employed in a healthcare setting (test code = 80624-7) Whether the patient has symptoms related to condition of interest (test code = 60559-0) Patient was hospitalized because of this condition (test code = 85812-0) Whether the patient was admitted to intensive care unit (ICU) for condition of interest (test code = 77708-4) Whether patient resides in a congregate care setting (test code = 94976-1) BERNARDO WAITE
[2022-10-19] MEDS ORDERED: ONDANSETRON 4 MG/2 ML VIAL ONE ×2 (10:25→14:33)
[2022-10-19] MEDS ORDERED: NA CHLORIDE 0.9% 1,000 ML ONE ×2 (10:25→12:48)
[2022-10-19] MEDS ORDERED: MORPHINE 4 MG/ML SYR ONE ×2 (10:25→14:32)
[2022-10-19 10:34] LABS: Absolute Lymphocytes (CBC) 0.5 K/uL (0.7-4.9); Hematocrit 36.5 % (39.6-49.0); Lymphocytes % 9.3 % (15.3-44.8); MCV 83.5 fL (80-100); MPV 7.1 fL (7.6-11.3); RBC Red Blood Cell Count 4.37 M/uL (4.33-5.43)
[2022-10-19 10:50] LABS: Albumin 3.3 g/dL (3.4-5.0); Bilirubin Total 0.9 mg/dL (0.2-1.0); Potassium 3.8 mmol/L (3.5-5.1); Protein, Total 7.9 g/dL (6.4-8.2)
[2022-10-19 11:33] LABS: Urine Blood Negative (Negative); Urine Glucose Negative (Negative); Urine Protein Negative (Negative); Urine Specific Gravity 1.015 (1.005-1.030); Urine pH 5.5 (5.0-7.0)
[2022-10-19] MEDS ORDERED: PIPERACIL/TAZO 3.375 GM VIAL IV ONE (11:33)
[2022-10-19] MEDS ORDERED: NA CHLORIDE 0.9% 100 ML IV ONE (11:33)
--- NOTE | 2022-10-19 12:00 | RAD REPORT ---
EXAM DESCRIPTION: CT - Abdomen Pelvis Wo Contrast - 10/19/2022 11:01 am CLINICAL HISTORY: Abdominal pain, acute, nonlocalized COMPARISON: Abdomen Pelvis W/Wo Contrast dated 02/15/2022 TECHNIQUE: Axial [address] imaging of the abdomen and pelvis was performed without IV contrast. No IV contrast was given because of allergy, abnormal renal function, patient refusal or physician re quest. No oral contrast administered. All CT scans are performed using dose optimization technique as appropriate and may include automated exposure control or mA/KV adjustment according to patient size. FINDINGS: No suspicious findings in the lung bases. The liver, spleen and pancreas show no suspicious findings on non-contrast imaging. Gallbladder is co ntracted. No biliary tree dilatation. There is mild bilateral hydronephrosis and hydroureter down to the pelvic inlet. No obstructing or no nobstructing calculi. No significant adrenal finding. Isodense renal masses and pyelonephritis canno t be excluded in the absence of IV contrast. Urinary bladder is contracted. Bladder wall appears thic kened and slightly shaggy. This may be artifact of contracted state. An acute or chronic cystitis is possible. Bladder turner not asymmetrically thickened and no clearly defined bladder wall mass. The ap pearance is similar to the February 2022 study. No gastric dilatation or gastric wall thickening. No dilated small bowel loops. Appendix is normal. L eft mid abdomen ostomy site has a very large associated peristomal hernia 12 cm in diameter. The neck of the hernia is 5 cm. The herniated small bowel loops and loop of colon show no suspicious findings . Right mid abdomen ostomy site also has a large peristomal hernia. Colon loops extend through the he rnia as part of the colostomy. Herniated fat is present. No small bowel herniation. There is no conge stion or edema. Both hernias are substantially larger than the February 2022 study. No free air, free fluid or pneumatosis. No omental thickening. At the rectal stump there is a 4.2 centimeter oval area of low-density soft tissue. This is similar t o the prior study. Adjacent to this rectal stump there is a 4.4 x 2.7 centimeter area of soft tissue that is new or enlarged from prior imaging. There are several 15-18 millimeter size lymph nodes along the left pelvic sidewall. Scar tissue is possible. However, findings do raise concern for residual o r recurrent malignancy. Disc and bone degenerative changes are present. No pathologic bone process seen. IMPRESSION: At the rectal stump there is a 4.2 centimeter low-density soft tissue mass with an adjac ent 4.4 centimeter solid soft tissue mass. Small 15-18 millimeter lymph nodes are seen adjacent to th kim 2 masses along the pelvic side wall on the left. These findings are potentially the sequela of the extensive surgery. However, concern for residual/ r ecurrent malignancy is relatively high. Patient has bilateral mid abdomen ostomy sites both with peristomal hernia components. Right peristom al hernia is fat along with the colostomy loops. The left ostomy site contains multiple small bowel l oops. No congestion or edema at either peristomal hernia. Full assessment is limited is the absence of IV contrast.
--- NOTE | 2022-10-19 12:48 | EDPHYS ---
Physician Documentation [facility] Name: Edwin Young Age: 57 yrs Sex: Male : 1965 Arrival Date: 10/19/2022 Time: 09:42 Bed 4 Private MD: CRISTEL Physician Steven Reeves HPI: 10/19 11:17 This 57 yrs old Black Male presents to ER via Ambulatory with complaints of Rectal Pain.sara 11:17 The patient presents to the emergency department with pain in the rectal area, that is sara moderate. Onset: The symptoms/episode began/occurred 3 day(s) ago. Context: the patient has no known special context relating to the rectal area complaint(s). Associate signs and symptoms: Pertinent positives: abdominal pain in the left upper quadrant and left lower quadrant. The patient has experienced similar episodes in the past, multiple times. Historical: - Allergies: 09:50 No Known Allergies; aa5 - PMHx: 09:50 Gout; Hypertension; CHF; Colon Cancer; Chemotherapy (last one was August,); aa5 - Immunization history:: Adult Immunizations unknown. - Social history:: Smoking status: Patient denies any tobacco usage or history of. - Family history:: not pertinent. ROS: 11:17 Constitutional: Negative for fever, chills, and weight loss, Eyes: Negative for injury, sara pain, redness, and discharge, ENT: Negative for injury, pain, and discharge, Neck: Negative for injury, pain, and swelling, Cardiovascular: Negative for chest pain, palpitations, and edema, Respiratory: Negative for shortness of breath, cough, wheezing, and pleuritic chest pain, Back: Negative for injury and pain, : Negative for injury, bleeding, discharge, and swelling, MS/Extremity: Negative for injury and deformity, Skin: Negative for injury, rash, and discoloration, Neuro: Negative for headache, weakness, numbness, tingling, and seizure, Psych: Negative for depression, anxiety, suicide ideation, homicidal ideation, and hallucinations, Allergy/Immunology: Negative for hives, rash, and allergies, Endocrine: Negative for neck swelling, polydipsia, polyuria, polyphagia, and marked weight changes, Hematologic/Lymphatic: Negative for swollen nodes, abnormal bleeding, and unusual bruising. 11:17 Abdomen/GI: Positive for abdominal pain, rectal pain, of the left upper quadrant and left lower quadrant. Exam: 11:17 Constitutional: This is a well developed, well nourished patient who is awake, alert, sara and in no acute distress. Head/Face: Normocephalic, atraumatic. Eyes: Pupils equal round and reactive to light, extra-ocular motions intact. Lids and lashes normal. Conjunctiva and sclera are non-icteric and not injected. Cornea within normal limits. Periorbital areas with no swelling, redness, or edema. ENT: Nares patent. No nasal discharge, no septal abnormalities noted. Tympanic membranes are normal and external auditory canals are clear. Oropharynx with no redness, swelling, or masses, exudates, or evidence of obstruction, uvula midline. Mucous membranes moist. Neck: Trachea midline, no thyromegaly or masses palpated, and no cervical lymphadenopathy. Supple, full range of motion without nuchal rigidity, or vertebral point tenderness. No Meningismus. Chest/axilla: Normal chest wall appearance and motion. Nontender with no deformity. No lesions are appreciated. Cardiovascular: Regular rate and rhythm with a normal S1 and S2. No gallops, murmurs, or rubs. Normal PMI, no JVD. No pulse deficits. Respiratory: Lungs have equal breath sounds bilaterally, clear to auscultation and percussion. No rales, rhonchi or wheezes noted. No increased work of breathing, no retractions or nasal flaring. Back: No spinal tenderness. No costovertebral tenderness. Full range of motion. Male : Normal genitalia with no discharge or lesions. Skin: Warm, dry with normal turgor. Normal color with no rashes, no lesions, and no evidence of cellulitis. MS/ Extremity: Pulses equal, no cyanosis. Neurovascular intact. Full, normal range of motion. Neuro: Awake and alert, GCS 15, oriented to person, place, time, and situation. Cranial nerves II-XII grossly intact. Motor strength 5/5 in all extremities. Sensory grossly intact. Cerebellar exam normal. Normal gait. Psych: Awake, alert, with orientation to person, place and time. Behavior, mood, and affect are within normal limits. 11:17 Abdomen/GI: Inspection: distension, Bowel sounds: active, Palpation: mild abdominal tenderness, moderate abdominal tenderness, in the left upper quadrant and left lower quadrant, Liver: no appreciated palpable abnormalities, Hernia: noted in the paraumbilical area, colostomy x 2, stool and mucous. Vital Signs: 09:49 BP 130 / 89; Pulse 107; Resp 18 S; Temp 97.9(TE); Pulse Ox 99% on R/A; Weight 113.4 kg aa5 (R); Height 6 ft. 1 in. (185.42 cm) (R); 10:30 BP 126 / 84; Pulse 100; Resp 18; Pulse Ox 97% on R/A; Pain 5/10; ld1 11:01 BP 119 / 73; Pulse 91; Resp 18; Pulse Ox 98% on R/A; ld1 11:48 BP 128 / 83; ap3 12:35 BP 132 / 87; Pulse 95; Resp 100; Pulse Ox 99% ; mb9 14:12 BP 159 / 83; Pulse 99; Resp 22; Pulse Ox 100% on R/A; mb9 09:49 Body Mass Index 32.98 (113.40 kg, 185.42 cm) aa5 MDM: 09:52 Patient medically screened. [facility] 11:22 Differential diagnosis: hemorrhoids, fissure, abscess, pilonidal cyst. Data reviewed: [facility] vital signs, nurses notes, lab test result(s), radiologic studies. Data interpreted: health management consultant: rate is 91 beats/min, rhythm is regular, Pulse oximetry: on room air is 98 %. Counseling: I had a detailed discussion with the patient and/or guardian regarding: the historical points, exam findings, and any diagnostic results supporting the discharge/admit diagnosis, lab results, radiology results. 10/19 10:19 Order name: CBC with Diff; Complete Time: 11:16 [facility] 10/19 10:19 Order name: CMP; Complete Time: 11:16 sara 10/19 10:19 Order name: Lipase; Complete Time: 11:16 sara 10/19 11:33 Order name: Urine Dipstick-Ancillary; Complete Time: 12:40 EDMS 10/19 12:55 Order name: SARS RAPID mb9 10/19 15:39 Order name: Phosphorus EDMS 10/19 11:00 Order name: Abdomen ; Complete Time: 12:40 EDMS 10/19 15:39 Order name: Magnesium EDMS 10/19 10:19 Order name: IV Saline Lock; Complete Time: 10:31 [facility] 10/19 10:19 Order name: Labs collected and sent; Complete Time: : [facility] 10/19 10:19 Order name: Urine Dipstick-Ancillary (obtain specimen); Complete Time: 11:33 [facility] Administered Medications: 10:30 Drug: NS 0.9% 1000 ml Route: IV; Rate: 1 bolus; Site: right antecubital; ld1 10:30 Drug: Zofran (Ondansetron) 4 mg Route: IVP; Site: right antecubital; ld1 11:41 Follow up: Response: No adverse reaction ap3 10:30 Drug: morphine 4 mg Route: IVP; Infused Over: 4 mins; Site: right antecubital; ld1 11:42 Follow up: Response: No adverse reaction; Pain is decreased ap3 11:41 Drug: Zosyn (piperacillin-tazobactam) 3.375 grams Route: IVPB; Infused Over: 60 mins; ap3 Site: right forearm; 12:50 Drug: NS 0.9% 1000 ml Route: IV; Rate: 125 ml/hr; Site: right forearm; mb9 14:37 Drug: Zofran (Ondansetron) 4 mg Route: IVP; Site: right antecubital; mb9 15:13 Follow up: Response: No adverse reaction mb9 14:48 Drug: morphine 4 mg Route: IVP; Infused Over: 4 mins; Site: right antecubital; mb9 15:13 Follow up: Response: No adverse reaction mb9 Disposition Summary: 10/19/22 12:47 Hospitalization Ordered Hospitalization Status: Inpatient Admission sara Provider: Roger Crisostomo cha [facility] sara Condition: Fair sara Problem: new sara Symptoms: have improved sara Bed/Room Type: Standard [facility] Room Assignment: 401(10/19/22 19:00) eb1 Diagnosis - Acute kidney failure, unspecified sara - Colostomy complication, unspecified sara - Abdominal pain, Generalized - rectal pain, proctitis(10/19/22 14:35) sara Forms: - Medication Reconciliation Form sara - SBAR form sara Signatures: Dispatcher [employer] EDSteven Hester MD MD cha Calderon, Audri RN RN aa5 Libertad Rodriguez RN RN ap3 Chani Wu RN RN eb1 Rhiannon Schmidt RN RN ld1 Brooke Boyle, RN RN mb9 Corrections: (The following items were deleted from the chart) 11:00 10:20 Abdomen Pelvis W Con+CT.RAD.BRZ ordered. EDMS EDMS 14:35 12:47 Abdominal pain, Generalized sara sara 19:00 12:47 sara eb1
--- NOTE | 2022-10-19 12:48 | ER ---
Nurse's Notes [facility] Name: Edwin Young Age: 57 yrs Sex: Male : 1965 Arrival Date: 10/19/2022 Time: 09:42 Bed 4 Private MD: Diagnosis: Abdominal pain, Generalized-rectal pain, proctitis;Acute kidney failure, unspecified;Colostomy complication, unspecified Presentation: 10/19 09:49 Chief complaint: Patient states: "I have colon cancer and I have a little bit of blood aa5 coming out but mostly mucus". Pt also reports rectal pressure x 1 week ago. 09:49 Coronavirus screen: At this time, the client does not indicate any symptoms associated aa5 with coronavirus-19. Ebola Screen: Patient denies travel to an Ebola-affected area in the 21 days before illness onset. Initial Sepsis Screen: Does the patient meet any 2 criteria? No. Patient's initial sepsis screen is negative. Does the patient have a suspected source of infection? No. Patient's initial sepsis screen is negative. Risk Assessment: Do you want to hurt yourself or someone else? Patient reports no desire to harm self or others. Onset of symptoms was September 2022. 09:49 Acuity: JASWINDER 3 aa5 09:49 Method Of Arrival: Ambulatory aa5 Triage Assessment: 10:18 General: Appears uncomfortable, Behavior is calm, cooperative. Pain: Complains of pain ap3 in buttocks Pain currently is 5 out of 10 on a pain scale. Pain began gradually. Neuro: Level of Consciousness is awake, alert, obeys commands, Oriented to person, place, time, situation, Speech is normal. Cardiovascular: Patient's skin is warm and dry. Respiratory: Airway is patent Respiratory effort is even, unlabored, Respiratory pattern is regular, symmetrical. GI: Colostomy site Ileostomy site Ostomy appliance is intact. colostomy site to left abdomen, ileostomy site to right abdomen. appliances are in place to both sites and are intact. Historical: - Allergies: 09:50 No Known Allergies; aa5 - PMHx: :50 Gout; Hypertension; CHF; Colon Cancer; Chemotherapy (last one was August,); aa5 - Immunization history:: Adult Immunizations unknown. - Social history:: Smoking status: Patient denies any tobacco usage or history of. - Family history:: not pertinent. Screenin:18 Abuse screen: Denies threats or abuse. Nutritional screening: Has had N/V for 3 or more ap3 days. Tuberculosis screening: No symptoms or risk factors identified. Assessment: 10:30 Reassessment: Pt c/o rectal pain 02/22. See MAR for orders. ld1 11:48 Reassessment: Patient and/or family updated on plan of care and expected duration. Pain ap3 level reassessed. Patient is alert, oriented x 3, equal unlabored respirations, skin warm/dry/pink. 12:00 Reassessment: Report received from TJ Maurer. mb9 12:32 General: Appears in no apparent distress. comfortable, Behavior is calm, cooperative, mb9 appropriate for age. Pain: Complains of pain in paraumbilical area and left lower quadrant and left upper quadrant and buttocks Pain does not radiate. Pain currently is 7 out of 10 on a pain scale. Quality of pain is described as pressure, Is continuous. Neuro: Reyna Agitation-Sedation Scale (RASS): 0 - Alert and Calm Level of Consciousness is awake, alert, obeys commands, Oriented to person, place, time, situation, Appropriate for age. Cardiovascular: Rhythm is regular. Respiratory: Airway is patent Respiratory effort is even, unlabored, Respiratory pattern is regular, symmetrical. GI: Abdomen is round non-distended, Colostomy site Ileostomy site is reddened. Ostomy appliance is intact. : No signs and/or symptoms were reported regarding the genitourinary system. EENT: No signs and/or symptoms were reported regarding the EENT system. Derm: Skin is intact, Skin is pink, warm \\T\\ dry. Musculoskeletal: Range of motion: intact in all extremities. 13:35 Reassessment: No changes from previously documented assessment. Neuro: Level of mb9 Consciousness is awake, alert, obeys commands, Oriented to person, place, time, situation, Appropriate for age. Respiratory: Airway is patent. Derm: Skin is normal. 14:11 Pain: Complains of pain in paraumbilical area and left lower quadrant and left upper mb9 quadrant and buttocks Pain does not radiate. Pain currently is 6 out of 10 on a pain scale. Quality of pain is described as pressure. Cardiovascular: Rhythm is regular. Respiratory: Airway is patent Respiratory effort is even, unlabored, Respiratory pattern is regular, symmetrical. Derm: Skin is normal. 14:58 Reassessment: Patient states feeling better. Patient states symptoms have improved. mb9 Cardiovascular: Rhythm is regular. Respiratory: Airway is patent. Derm: Skin is normal. Vital Signs: 09:49 BP 130 / 89; Pulse 107; Resp 18 S; Temp 97.9(TE); Pulse Ox 99% on R/A; Weight 113.4 kg aa5 (R); Height 6 ft. 1 in. (185.42 cm) (R); 10:30 BP 126 / 84; Pulse 100; Resp 18; Pulse Ox 97% on R/A; Pain 5/10; ld1 11:01 BP 119 / 73; Pulse 91; Resp 18; Pulse Ox 98% on R/A; ld1 11:48 BP 128 / 83; ap3 12:35 BP 132 / 87; Pulse 95; Resp 100; Pulse Ox 99% ; mb9 14:12 BP 159 / 83; Pulse 99; Resp 22; Pulse Ox 100% on R/A; mb9 09:49 Body Mass Index 32.98 (113.40 kg, 185.42 cm) aa5 ED Course: 09:42 Patient arrived in ED. rg4 09:49 Arm band placed on Patient placed in an exam room, on a stretcher. aa5 09:52 Steven Reeves MD is Attending Physician. sara 09:54 Rhiannon Schmidt, RN is Primary Nurse. ld1 09:59 Triage completed. aa5 10:21 Patient has correct armband on for positive identification. Bed in low position. Call ap3 light in reach. Side rails up X 1. Pulse ox on. NIBP on. Door closed. Noise minimized. Warm blanket given. 10:30 Inserted saline lock: 20 gauge in right antecubital area, using aseptic technique. ap3 Blood collected. 11:00 Abdomen In Process Unspecified. EDMS 12:42 Roger Crisostomo MD is Hospitalizing Provider. sara 13:01 SARS RAPID Sent. mb9 14:27 Primary Nurse role handed off by Rhiannon Schmidt, RN mb9 14:27 Brooke Boyle, TJ is Primary Nurse. mb9 21:10 Patient admitted, IV remains in place. mb9 Administered Medications: 10:30 Drug: NS 0.9% 1000 ml Route: IV; Rate: 1 bolus; Site: right antecubital; ld1 10:30 Drug: Zofran (Ondansetron) 4 mg Route: IVP; Site: right antecubital; ld1 11:41 Follow up: Response: No adverse reaction ap3 10:30 Drug: morphine 4 mg Route: IVP; Infused Over: 4 mins; Site: right antecubital; ld1 11:42 Follow up: Response: No adverse reaction; Pain is decreased ap3 11:41 Drug: Zosyn (piperacillin-tazobactam) 3.375 grams Route: IVPB; Infused Over: 60 mins; ap3 Site: right forearm; 12:50 Drug: NS 0.9% 1000 ml Route: IV; Rate: 125 ml/hr; Site: right forearm; mb9 14:37 Drug: Zofran (Ondansetron) 4 mg Route: IVP; Site: right antecubital; mb9 15:13 Follow up: Response: No adverse reaction mb9 14:48 Drug: morphine 4 mg Route: IVP; Infused Over: 4 mins; Site: right antecubital; mb9 15:13 Follow up: Response: No adverse reaction mb9 Medication: 10:21 VIS not applicable for this client. ap3 Outcome: 12:47 Decision to Hospitalize by Provider. sara 21:09 Admitted to Tele accompanied by tech, via wheelchair, on monitor, Report called to denilson Trinidad RN 21:09 Condition: stable 21:10 Patient left the ED. denilson Signatures: Dispatcher [employer] Steven Walker MD MD cha Calderon, Audri, RN RN [email or web address] Sidra Mccarthy Amanda, RN RN ap3 Rhiannon Schmidt RN RN [email or web address] Brooke Boyle RN TJ [email or web address]
[2022-10-19 13:15] LABS: SARS-CoV-2 Antigen Rapid Res Negative (Negative)
[2022-10-19] MEDS ORDERED: ACETAMINOPHEN 325 MG TABLET PO PRN (14:56)
[2022-10-19 15:20] VITALS: BMI 32.1
--- NOTE | 2022-10-19 15:29 | P.HP ---
Certification for Inpatient Patient admitted to: Inpatient With expected LOS: >2 Midnights Patient will require the following post-hospital care: None Practitioner: I am a practitioner with admitting privileges, knowledge of patient current condition, hospital course, and medical plan of care. Services: Services provided to patient in accordance with Admission requirements found in Title 42 Section 412.3 of the Code of Federal Regulations Patient History Date of Service: 10/19/22 Reason for admission: Rectal pain. History of Present Illness: Patient is a 57-year-old male with a past medical history significant for gout, hypertension, colon cancer, CHF who presents with complaint of anal pain that has been ongoing for the past 1 week. Patient reported that he noticed mucus discharge from his anus and amount of discharge has become worse over time. Patient rated anal pain as 6/10 in severity and described pain as dull in quality. Patient also reports suprapubic pain rated as 6/10 in severity and described as dull in quality. Patient denies any other signs or symptoms. Symptoms are aggravated or relieved by nothing. Patient decided to present to the hospital due to worsening symptoms. Allergies No Known Allergies Allergy (Verified 05/28/21 17:37) Home Medications: Carvedilol [Coreg] 25 mg PO BID 10/22/21 Furosemide [Lasix] 40 mg PO DAILY 10/22/21 - Past Medical/Surgical History Diabetic: No -: chf -: htn -: hyperlipidemia -: rectal cancer Dx January 2021 -: Gout -: Chemo-Port placement - Family History Mother -: Heart disease, Hypertension, Other (see notes) Notes: CHF Father -: Diabetes - Social History Smoking Status: Never smoker Alcohol use: No CD- Drugs: No Caffeine use: Yes Place of Residence: Home Review of Systems General: Unremarkable Eyes: Unremarkable ENT: Unremarkable Respiratory: Unremarkable Cardiovascular: Unremarkable Gastrointestinal: Other (Anal and suprapubic pain ) Genitourinary: Unremarkable Musculoskeletal: Unremarkable Integumentary: Unremarkable Neurological: Unremarkable Lymphatics: Unremarkable Physical Examination - Physical Exam General: Alert, In no apparent distress, Oriented x3, Cooperative HEENT: Atraumatic, Normocephalic, PERRLA, Mucous membr. moist/pink, EOMI, Sclerae nonicteric Neck: Supple, 2+ carotid pulse no bruit, No LAD, Without JVD or thyroid abnormality Respiratory: Clear to auscultation bilaterally, Normal air movement Cardiovascular: No edema, Regular rate/rhythm, Normal S1 S2 Capillary refill: <2 Seconds Gastrointestinal: Normal bowel sounds, Other (Colostomy bags), Distended, Tenderness Musculoskeletal: No clubbing, No tenderness Integumentary: No rashes Neurological: Normal speech, Normal tone, Normal affect Lymphatics: No axilla or inguinal lymphadenopathy - Studies Laboratory Data (last 24 hrs) 10/19/22 10:28: Sodium 134 L, Potassium 3.8, BUN 14, Creatinine 2.05 H, Glucose 111 H, Total Bilirubin 0.9, AST 13 L, ALT 15 L, Alkaline Phosphatase 71, Lipase 67 L 10/19/22 10:28: WBC 5.80, Hgb 12.1 L, Hct 36.5 L, Plt Count 371 Assessment and Plan - Plan --Anal pain. CT abdomen indicates a 4.2 centimeter low-density soft tissue mass with an adjacent 4.4 centimeter solid soft tissue mass. Small 15-18 millimeter lymph nodes are seen adjacent to these 2 masses along the pelvic side wall on the left. Findings concerning for residual/recurrent malignancy. Findings concerning for residual/recurrent malignancy. Surgeon consulted. Will await further recommendations. --Acute pain. We will manage pain with current pain medication regimen. --Chronic systolic CHF. Daily weight and strict I/O. Continue home medication --Anemia of chronic disease. H&H stable. We will continue to monitor hemoglobin and transfuse if less than 7.0. --JANET. Nephrology consulted. Will await further recommendations. --Gout. Continue home medication when available. --History of colon cancer. Status post chemotherapy. Patient has 2 colostomy bag 1 on the right upper quadrant for bowel movements and one on the left lower for mucus. Surgeon on board. Continue supportive care. --Obesity. Likely secondary to excess calories intake. Patient counseled on weight reduction, diet and excise therapy. --Hypertension. Stable. Continue home medication. --DVT prophylaxis with heparin subQ. Discharge Plan: Home Plan to discharge in: Greater than 2 days - Advance Directives Does patient have a Living Will: No Does patient have a Durable POA for Healthcare: No - Code Status/Comfort Care Code Status Assessed: Yes Physician Review: Patient Assessed, Agree with Above Assessment and Plan Critical Care: No
[2022-10-19 15:39] LABS: Magnesium 2.1 mg/dL (1.6-2.4); Phosphorus 2.8 mg/dL (2.5-4.9)
[2022-10-19] MEDS ORDERED: NA CHLORIDE 0.9% 1,000 ML IV SCH (16:00)
[2022-10-19] MEDS: HYDROMORPHONE HCL 1 MG/ML INJ IV PRN (22:14)
[2022-10-19] MEDS: carvediloL 25 MG TAB PO SCH (22:14)
[2022-10-19] MEDS: ONDANSETRON 4 MG/2 ML VIAL IV PRN (22:14)
[2022-10-19] MEDS: HEPARIN 5000 UNIT/ML 1 ML VIAL SQ SCH (22:15)
[2022-10-20] MEDS: HYDROMORPHONE HCL 1 MG/ML INJ IV PRN ×6 (01:26→20:28)
[2022-10-20 01:56] LABS: Specific Gravity 1.008 (1.005-1.030); Urine Bilirubin NEGATIVE (Negative); Urine Blood Negative (Negative); Urine Clarity Clear (Clear); Urine Color Colorless (Yellow); Urine Glucose NEGATIVE (Negative); Urine Protein NEGATIVE (Negative); Urine Urobilinogen Normal (Normal)
[2022-10-20 04:36] LABS: Absolute Lymphocytes (CBC) 0.4 K/uL (0.7-4.9); Lymphocytes % 6.5 % (15.3-44.8); MCV 83.9 fL (80-100); MPV 7.5 fL (7.6-11.3); RBC Red Blood Cell Count 3.81 M/uL (4.33-5.43)
[2022-10-20] MEDS: ONDANSETRON 4 MG/2 ML VIAL IV PRN (04:39)
[2022-10-20 04:55] LABS: Potassium 4.7 mmol/L (3.5-5.1); Uric Acid 8.8 mg/dL (3.5-7.2)
[2022-10-20] MEDS: carvediloL 25 MG TAB PO SCH ×2 (08:00→20:28)
[2022-10-20] MEDS: ASPIRIN 81 MG CHEWABLE TABLET PO SCH (08:00)
[2022-10-20] MEDS: DOCUSATE NA 100 MG CAP PO SCH ×2 (08:00→20:28)
[2022-10-20] MEDS: HEPARIN 5000 UNIT/ML 1 ML VIAL SQ SCH ×2 (08:01→20:30)
--- NOTE | 2022-10-20 11:36 | P.CNS ---
Date of Consult: 10/20/22 Reason for Consult: JANET Requesting Physician: Roger Crisostomo Chief Complaint: Rectal pain. History of Present Illness: Patient is a 57-year-old male with a past medical history significant for gout, hypertension, colon cancer, CHF who presents with complaint of anal pain that has been ongoing for the past 1 week. Patient reported that he noticed mucus discharge from his anus and amount of discharge has become worse over time. Patient rated anal pain as 6/10 in severity and described pain as dull in quality. Patient also reports suprapubic pain rated as 6/10 in severity and described as dull in quality. Patient denies any other signs or symptoms. Symptoms are aggravated or relieved by nothing. Patient decided to present to the hospital due to worsening symptoms. 11:17 This 57 yrs old Black Male presents to ER via Ambulatory with complaints of Rectal Pain.sara 11:17 The patient presents to the emergency department with pain in the rectal area, that is sara moderate. Onset: The symptoms/episode began/occurred 3 day(s) ago. Context: the patient has no known special context relating to the rectal area complaint(s). Associate signs and symptoms: Pertinent positives: abdominal pain in the left upper quadrant and left lower quadrant. The patient has experienced similar episodes in the past, multiple times. He reports one week of Advil TID for the rectal pain. Allergies No Known Allergies Allergy (Verified 05/28/21 17:37) Home medications list reviewed: Yes Home Medications: Carvedilol [Coreg] 25 mg PO BID 10/22/21 Furosemide [Lasix] 40 mg PO DAILY 10/22/21 - Past Medical/Surgical History Diabetic: No -: CHF -: HTN -: HLD -: rectal cancer Dx January 2021 -: Gout -: JANET (Dr. Hernandez) -: Chemo-Port placement - Family History Mother Medical History: Heart disease, Hypertension, Other (see notes) Notes: CHF Father Medical History: Diabetes - Social History Smoking Status: Never smoker Alcohol use: No CD- Drugs: No Caffeine use: Yes Place of Residence: Home Review of Systems 10-point ROS is otherwise unremarkable Physical Examination Temp Pulse Resp BP Pulse Ox 97.5 F 70 16 110/61 97 10/20/22 08:00 10/20/22 08:00 10/20/22 08:22 10/20/22 08:00 10/20/22 08:22 General: Oriented x3, Cooperative HEENT: Atraumatic Neck: Supple Respiratory: Clear to auscultation bilaterally Cardiovascular: No edema, Regular rate/rhythm Gastrointestinal: Non-distended, No guarding Musculoskeletal: No clubbing, No contractures Integumentary: No rashes, No cyanosis Neurological: Normal speech Laboratory Data (last 24 hrs) 10/19/22 10:28: Phosphorus 2.8, Magnesium 2.1 Imagings Data: EXAM DESCRIPTION: CT - Abdomen Pelvis Wo Contrast - 10/19/2022 11:01 am CLINICAL HISTORY: Abdominal pain, acute, nonlocalized COMPARISON: Abdomen Pelvis W/Wo Contrast dated 02/15/2022 TECHNIQUE: Axial [address] imaging of the abdomen and pelvis was performed without IV contrast. No IV contrast was given because of allergy, abnormal renal function, patient refusal or physician request. No oral contrast administered. All CT scans are performed using dose optimization technique as appropriate and may include automated exposure control or mA/KV adjustment according to patient size. FINDINGS: No suspicious findings in the lung bases. The liver, spleen and pancreas show no suspicious findings on non-contrast imaging. Gallbladder is contracted. No biliary tree dilatation. There is mild bilateral hydronephrosis and hydroureter down to the pelvic inlet. No obstructing or nonobstructing calculi. No significant adrenal finding. Isodense renal masses and pyelonephritis cannot be excluded in the absence of IV contrast. Urinary bladder is contracted. Bladder wall appears thickened and slightly shaggy. This may be artifact of contracted state. An acute or chronic cystitis is possible. Bladder turner not asymmetrically thickened and no clearly defined bladder wall mass. The appearance is similar to the February 2022 study. No gastric dilatation or gastric wall thickening. No dilated small bowel loops. Appendix is normal. Left mid abdomen ostomy site has a very large associated peristomal hernia 12 cm in diameter. The neck of the hernia is 5 cm. The herniated small bowel loops and loop of colon show no suspicious findings. Right mid abdomen ostomy site also has a large peristomal hernia. Colon loops extend through the hernia as part of the colostomy. Herniated fat is present. No small bowel herniation. There is no congestion or edema. Both hernias are substantially larger than the February 2022 study. No free air, free fluid or pneumatosis. No omental thickening. At the rectal stump there is a 4.2 centimeter oval area of low-density soft tissue. This is similar to the prior study. Adjacent to this rectal stump there is a 4.4 x 2.7 centimeter area of soft tissue that is new or enlarged from prior imaging. There are several 15-18 millimeter size lymph nodes along the left pelvic sidewall. Scar tissue is possible. However, findings do raise concern for residual or recurrent malignancy. Disc and bone degenerative changes are present. No pathologic bone process seen. IMPRESSION: At the rectal stump there is a 4.2 centimeter low-density soft tissue mass with an adjacent 4.4 centimeter solid soft tissue mass. Small 15-18 millimeter lymph nodes are seen adjacent to these 2 masses along the pelvic side wall on the left. These findings are potentially the sequela of the extensive surgery. However, concern for residual/ recurrent malignancy is relatively high. Patient has bilateral mid abdomen ostomy sites both with peristomal hernia components. Right peristomal hernia is fat along with the colostomy loops. The left ostomy site contains multiple small bowel loops. No congestion or edema at either peristomal hernia. Full assessment is limited is the absence of IV contrast. Conclusions/Impression: Stage II JANET in the setting of Advil and Mild BL hydronephrosis & hydroureter -No NSAIDs -Damon to gravity -Start Flomax -Start gently IVF with LR Hyponatremia, resolved HTN with CHF -Continue Coreg Systolic CHF, chronic LVEF 27% in 2014 -Daily weight -Low sodium diet Hyperglycemia -Check A1C Anemia in chronic illness Iron deficiency 7% in 2021 -Monitor H&H -Consider iron supplementation Gout -Monitor UA level Rectal pain with a hx of colon cancer Ostomy status -Follow up with surgery -Check CEA Case reviewed with Dr. Crisostomo Thank you kindly for the consultation
[2022-10-20] MEDS ORDERED: TAMSULOSIN 0.4 MG SR CAP PO ONE (12:00)
[2022-10-20] MEDS ORDERED: LIDOCAINE HCL JELLY 2% 6 ML SYRINGE TOP SCH (12:00)
[2022-10-20] MEDS: Ringers Lactate 1,000 ML IV SCH (14:11)
[2022-10-20] MEDS: LIDOCAINE HCL JELLY 2% 6 ML SYRINGE TOP SCH (14:11)
--- NOTE | 2022-10-20 15:26 | CON ---
Date of Consultation: 10/20/2022 Brief History Of Present Illness: The patient is a 57-year-old male, known to me from previous surgi eliel intervention back on 10/26/2021. He has a history of rectal cancer after receiving approximately 17 rounds of chemo and radiation prior to his previous admission on 10/16/2021. He came in with int raabdominal contamination consistent with a sigmoid perforation, taken to the operating room where he had exploratory laparotomy, transverse loop colostomy as he had significant chemo and radiation and significant frozen pelvis at that point precluding a very safe operation. He required multiple opera tions and ultimately with an end colostomy on the left sigmoid colon with a partial sigmoid colectomy and his transverse loop colostomy was remained in place and was not revised at that time. He tolera yolande the surgeries ultimately on that admission well, ultimately was discharged, and referred to Dr. Montse Gramajo, colorectal surgeon. He had received additional chemotherapy. He continued to have no surgical intervention for his known biopsy-proven rectal cancer by his description in the past. He is completing his course of chemotherapy and is ultimately planned for surgical intervention with Dr. Gramajo in the future; however, at this time, he presents with some rectal pain and increase mucous type discharge from his rectum. The pain is [id number] at times and his output had been going somewhat up. Otherwise, he had no additional complaints. He does admit to significant heavy exercis e with weights in the gym on a very frequent basis and he does heavy dumbbell/weight type training an d maintains a large muscular mass. He noted that since he has been exercising aggressively, he has n oticed more prolapse of his colostomy, but has no pain, bleeding, or other symptoms related to those colostomies and no obstructive complaints. He has been tolerating diet normally. As such, he came t o the emergency room with concerns of the increased drainage and rectal pain. Past Medical History: CHF, hypertension, hyperlipidemia, rectal cancer diagnosed in January 2021, gout . Past Surgical History: He had the transverse loop colostomy created and then additional second surge ry during the same admission. He had a partial sigmoid colectomy and end sigmoid colostomy at that t satinder. He had been doing well since that time approximately a year ago. Home Medications: Included Coreg and Lasix. Allergies: NO KNOWN DRUG ALLERGIES. Social History: He denies smoking, alcohol, or recreational drug use. Family History: His father had diabetes. Mother had heart disease, hypertension. Review of Systems: Ten-point review of systems other than HPI, he denies. Physical Examination: General: At the time of my examination; he is awake, alert, oriented. Psychiatric: Appropriate, conversive. HEENT: Normocephalic. Sclerae anicteric. Mucous membranes are moist. Oropharynx is clear. Neck: Supple without JVD. Chest: Expansion and excursion. Cardiovascular: Regular rate and rhythm. Pulmonary: Clear to auscultation bilaterally. Abdomen: Soft, nontender, nondistended. No rebound. No guarding. No focal peritonitis. He does h ave peristomal hernias and both colostomies, 1 transverse colostomy, and he has some prolapse of his transverse colostomy. He has end colostomy on the left; however, appears to be functional with minim al fluid in the bag and bowel appears viable in both these areas without issue other than the prolaps e. Musculoskeletal: He is very muscular and no other clubbing, cyanosis, edema noted. No tenderness. Skin: No rashes. Neurologic: No focal deficits. Rectal: He does have some anal discharge and some anal pain on examination. Laboratory Data: White blood cell count of 6.0, hemoglobin 10.4, hematocrit of 32.0, platelet count was 308. His neutrophils were 83%. Sodium 136, potassium 4.7, chloride 105, carbon dioxide 27, BUN 16, creatinine 2.04, glucose was 136. Uric acid was 8.8. Lipase was 67 on admission. His urine was negative. He had imaging performed, which included a CT of the abdomen and pelvis on 10/19/2022, of ficially read as the rectal stump is a 4.2 cm, low-density soft tissue mass with adjacent 4.4 cm roshan d tissue mass, small 15-18 mm lymph nodes are seen adjacent to these 2 masses along the pelvic sidewa ll on the left. These findings are potentially sequelae of the extensive surgery; however, concern f or residual recurrent malignancy is relatively high. The patient has bilateral mid abdominal ostomy sites both with peristomal hernia components, the right parastomal hernia fat along with colostomy lo ops. The left ostomy site contains multiple small bowel loops. No congestion or edema is seen withi n either parastomal hernia. No free air. No free fluid. No pneumatosis. No mental thickening. Th ere are mild bilateral hydronephrosis and hydroureter down the pelvic inlet as well. Assessment And Plan: This is a 57-year-old male, who has the multiple medical history as described a win including history of rectal cancer treated currently only with chemotherapy, who had a perforati on approximately 1 year ago, treated with diversion surgery essentially with 2 colostomy sites. He h as been doing well since that time. He has gained muscle and exercised and has been eating well and receiving chemotherapy. He now presents with new onset rectal pain beginning several weeks ago, but now has gotten worse over the past few days with increased mucous drainage. 1.IV fluid hydration. 2.Antibiotic coverage. 3.Rectal lidocaine. 4.Continue medical management for his other medical comorbid conditions including consultation of la s care team assistant. 5.No surgical intervention required at this time. He will likely continue his chemotherapy and kenia loraly have surgery with Dr. Rhys Gramajo as an outpatient. I have explained risks, benefits, and alternatives of above stated plan. The patient agreed to proceed as indicated. Thank you for this interesting consult. JOLENE/BRUCE Voice ID: [id number] Report ID: [id number]
[2022-10-20 16:46] LABS: UR PROTEIN 33.7 mg/dL (<11.9); Urine Protein/Creatinine Ratio 0.19 ratio (<0.15)
[2022-10-20 17:10] LABS: Urine Bacteria <20 /HPF (<20); Urine Crystals Unidentified Few /HPF (None Seen); Urine Mucus Slight /HPF (None Seen); Urine RBC 21-50 /HPF (None Seen)
[2022-10-20 17:18] LABS: Specific Gravity 1.013 (1.005-1.030); Urine Clarity Clear (Clear); Urine Color Yellow (Yellow); Urine Glucose Negative (Negative)
[2022-10-20 17:19] LABS: Urine Bilirubin NEGATIVE (Negative)
[2022-10-20 17:20] LABS: Urine Blood 1+ (Negative)
[2022-10-20 17:21] LABS: Urine Protein Trace (Negative); Urine Urobilinogen Normal (Normal)
[2022-10-20] MEDS ORDERED: HYDROCODONE/APAP 5/325 MG TAB PO PRN (20:37)
--- NOTE | 2022-10-20 20:47 | P.PN ---
Date of Service: 10/20/22 Subjective: pain improved with dilaudid no new/worsening symptoms ROS: A complete review of systems was performed and is negative except as mentioned above Physical Exam: Gen: NAD, AOx3 CV: regular rate & rhythm, no edema Pulm: non-labored respirations, clear bilaterally Abd: soft, non-tender, colostomy x2, +parastomal hernia Neuro: normal speech, normal affect, moves all extremities vitals reviewed Problem List Rectal Pain Rectal cancer undergoing chemotherapy s/p 2 colostomy sites secondary to bowel perforation Chronic systolic CHF Anemia of chronic disease JANET HTN pain more tolerable, on dialudid switch to PO norco tolerating PO General surgery consulted - no surgical indication recommend antibiotics - can transition to levaquin/flagyl PO on discharge lidocaine jelly MD CT: mild b/l hydronephrosis; 2 masses near rectal pouch unclear etiology, ?masses vs prostate gonzalez placed last night for possible obstruction Cr unchanged start flomax void trial tomorrow 1 week of disrupted stream, slight trouble with initiation intermittently VTE: heparin sq Code: full Dispo: home, anticipate tomorrow Time Spent Managing Pts Care (In Minutes): 35
[2022-10-20] MEDS ORDERED: TAMSULOSIN 0.4 MG SR CAP PO SCH (21:00)
[2022-10-21] MEDS: Ringers Lactate 1,000 ML IV SCH (01:20)
[2022-10-21] MEDS ORDERED: FUROSEMIDE 20 MG/ 2ML VIAL IV ONE (02:01)
[2022-10-21] MEDS ORDERED: ALBUTEROL 2.5 MG/3 ML NEB SOL NEB PRN (02:01)
[2022-10-21 04:44] LABS: Albumin 2.7 g/dL (3.4-5.0); Bilirubin Total 0.7 mg/dL (0.2-1.0); Carcinoembryonic Antigen 17.4 ng/mL (0-5.0); Potassium 4.4 mmol/L (3.5-5.1); Protein, Total 6.8 g/dL (6.4-8.2); Uric Acid 8.7 mg/dL (3.5-7.2)
[2022-10-21 08:59] VITALS: BP 110/69; TEMP 98
[2022-10-21] MEDS: LIDOCAINE HCL JELLY 2% 6 ML SYRINGE TOP SCH (09:00)
[2022-10-21] MEDS: carvediloL 25 MG TAB PO SCH (09:13)
[2022-10-21] MEDS: ASPIRIN 81 MG CHEWABLE TABLET PO SCH (09:13)
[2022-10-21] MEDS: DOCUSATE NA 100 MG CAP PO SCH (09:13)
[2022-10-21] MEDS: HEPARIN 5000 UNIT/ML 1 ML VIAL SQ SCH (09:14)
[2022-10-21 10:08] VITALS: O2SAT 95
--- NOTE | 2022-10-22 21:48 | P.DS ---
Admission Date: 10/19/22 Discharge Date: 10/21/22 Disposition: ROUTINE DISCHARGE Discharge Condition: GOOD Reason for Admission: Rectal pain. Consultations: Nephrology - Dr. Hernandez General Surgery - Dr. Fernández Brief History of Present Illness: 57-year-old male with a past medical history significant for gout, hypertension, colon cancer, CHF who presents with complaint of anal pain that has been ongoin g for the past 1 week. Patient reported that he noticed mucus discharge from his anus and amount of discharge has become worse over time. Patient rated anal pain as 6/10 in severity and described pain as dull in quality. Patient also reports suprapubic pain rated as 6/10 in severity and described as dull in quality. Patient denies any other signs or symptoms. Symptoms are aggravated or relieved by nothing. Patient decided to present to the hospital due to worsening symptoms. Hospital Course: Problem List Rectal Pain Rectal cancer undergoing chemotherapy s/p 2 colostomy sites secondary to bowel perforation Chronic systolic CHF Anemia of chronic disease JANET HTN Patient presented with rectal pain and mucous discharge. General surgery, Dr. Fernández was consulted. Recommended empiric treatment with antibiotics, and pain control with lidocaine jelly. He had improvement of his symptoms, and deemed stable for discharge home. Of note, CT noted 2 4cm masses by rectal pouch, mild bilateral hydronephrosis. A gonzalez catheter was placed initially on admission, removed the following morning. Renal function was stable, with Cr: 2.0, he was voiding without issue with PVR < 90ml Discussed urinary retention signs/symptoms and return precautions. Started on flomax He has a follow up appointment with his colorectal surgeon this coming Monday. Follow up: Dr. Hernandez, Nephrology, in the next few weeks. Vital Signs/Physical Exam: Temp Pulse Resp BP Pulse Ox 98.0 F 93 H 18 110/69 95 10/21/22 08:00 10/21/22 09:13 10/21/22 08:00 10/21/22 09:13 10/21/22 08:00 Physical Exam: Gen: NAD, AOx3 CV: regular rate & rhythm, no edema Pulm: non-labored respirations, clear bilaterally Abd: soft, non-tender, colostomy x2, +parastomal hernia Neuro: normal speech, normal affect, moves all extremities Laboratory Data at Discharge: WBC 6.00 K/uL (4.3-10.9) 10/20/22 04:11 Hgb 10.4 g/dL (13.6-17.9) L D 10/20/22 04:11 Hct 32.0 % (39.6-49.0) L 10/20/22 04:11 Plt Count 308 K/uL (152-406) 10/20/22 04:11 Sodium 135 mmol/L (136-145) L 10/21/22 04:13 Potassium 4.4 mmol/L (3.5-5.1) 10/21/22 04:13 BUN 19 mg/dL (7-18) H 10/21/22 04:13 Creatinine 2.06 mg/dL (0.70-1.30) H 10/21/22 04:13 Glucose 138 mg/dL (74-106) H 10/21/22 04:13 Uric Acid 8.7 mg/dL (3.5-7.2) H 10/21/22 04:13 Phosphorus 2.8 mg/dL (2.5-4.9) 10/19/22 10:28 Magnesium 2.1 mg/dL (1.6-2.4) 10/19/22 10:28 Total Bilirubin 0.7 mg/dL (0.2-1.0) 10/21/22 04:13 AST 13 U/L (15-37) L 10/21/22 04:13 ALT 11 U/L (16-61) L 10/21/22 04:13 Alkaline Phosphatase 58 U/L (45-117) 10/21/22 04:13 Lipase 67 U/L (73-393) L 10/19/22 10:28 Home Medications: Carvedilol [Coreg] 25 mg PO BID 10/22/21 Furosemide [Lasix*] 40 mg PO DAILY 10/22/21 LIDOCAINE 2% JELLY, 5mL [Xylocaine 2% Jelly*] 5 ml VA DAILY 14 Days #100 ml 10/21/22 Levofloxacin [Levaquin] 500 mg PO DAILY 12 Days #12 tab 10/21/22 Tamsulosin [Flomax*] 0.4 mg PO BEDTIME 30 Days #30 cap 10/21/22 metroNIDAZOLE [Flagyl] 500 mg PO Q8H 12 Days #36 tab 10/21/22 New Medications: metroNIDAZOLE [Flagyl] 500 mg PO Q8H 12 Days #36 tab Tamsulosin [Flomax*] 0.4 mg PO BEDTIME 30 Days #30 cap Levofloxacin [Levaquin] 500 mg PO DAILY 12 Days #12 tab LIDOCAINE 2% JELLY, 5mL [Xylocaine 2% Jelly*] 5 ml VA DAILY 14 Days #100 ml Physician Discharge Instructions: Patient presented with rectal pain and mucous discharge. General surgery, Dr. Fernández was consulted. Recommended empiric treatment with antibiotics, and pain control with lidocaine jelly. He had improvement of his symptoms, and deemed stable for discharge home. Of note, CT noted 2 4cm masses by rectal pouch, mild bilateral hydronephrosis. A gonzalez catheter was placed initially on admission, removed the following morning. Renal function was stable, with Cr: 2.0, he was voiding without issue with PVR < 90ml Discussed urinary retention signs/symptoms and return precautions. Started on flomax He has a follow up appointment with his colorectal surgeon this coming Monday. Follow up: Dr. Hernandez, Nephrology, in the next few weeks. Followup: Cass Gilliland DO [Primary Care Provider] - (PLEASE CALL TO SCHEDULE A FOLLOW UP APPOINTMENT IN 1-2 WEEKS) Time spent managing pt's care (in minutes): 45
== END 2022-10-21 11:17 | disposition home or self-care (01) | DRG 394 ==
LOC: ER 09:40 → ERHOLD 14:54 → 4TH 19:17
PROVIDERS: ADMIT Hospitalist; ATTEND Hospitalist
DX: K62.89 Other specified diseases of anus and rectum (principal); C20 Malignant neoplasm of rectum; E87.1 Hypo-osmolality and hyponatremia; N17.9 Acute kidney failure, unspecified; N13.30 Unspecified hydronephrosis; I50.22 Chronic systolic (congestive) heart failure; I11.0 Hypertensive heart disease with heart failure; M10.9 Gout, unspecified; E78.5 Hyperlipidemia, unspecified; E66.01 Morbid (severe) obesity due to excess calories; R73.9 Hyperglycemia, unspecified; D63.8 Anemia in other chronic diseases classified elsewhere; Z68.32 Body mass index [BMI] 32.0-32.9, adult; Z85.038 Personal history of other malignant neoplasm of large intestine; Z79.899 Other long term (current) drug therapy; Z20.822 Contact with and (suspected) exposure to COVID-19
CPT/HCPCS: 36415; 74176; 80048; 80053; 81001; 81003; 82378; 82570; 83036; 83690; 83735; 84100; 84156; 84550; 85025; 87086; 87088; 87811; 94640; 99285; J1170; J1644; J1940; J2405; J2543; J7030; J7120; J7613

== ENCOUNTER 2022-11-16 21:18 | Emergency (ER) | payer OTHER ==
--- OUTSIDE RECORDS SUMMARY | 2022-11-16 21:21 | XMS REPORT | Continuity of Care Document ---
:1965 Author Organization [facility] t Address [address] [place] [address] Care Team Providers Name Role Phone Asked, No Pcp Primary Care Physician Unavailable Tarsha Mancera Attending Clinician Unavailable Parviz Jameson DO Attending Clinician Nika Cowan MD Attending Clinician Rhys Gramajo MD Attending Clinician [phone] LEANDRO HOLT Attending Clinician Unavailable JENNY ULLOA Attending Clinician Unavailable MD DALLIN LIU Attending Clinician Unavailable MD RHYS GRAMAJO Attending Clinician Unavailable JONATHAN COVINGTON Attending Clinician Unavailable Bro Vargas Admitting Clinician Unavailable NIKA COWAN Admitting Clinician Unavailable TANIA HAIRSTON Admitting Clinician Unavailable KNOW, DOES_NOT Admitting Clinician Unavailable DALLIN LIU Admitting Clinician Unavailable MD DALLIN LIU Admitting Clinician Unavailable MD NIKA COWAN Admitting Clinician Unavailable Payers Payer Name Policy [...] Rectal Rectal Disease Active [facility] cancer cancer [address] [facility] 00:00: Hospita 00 l Allergies, Adverse Reactions, Alerts Allergy Allergy Status Severity Reaction(s) Onset Inactive Treating Comm ents Source Name Type Date Date Clinician No Known DA Active U 2020-10 [facility] [address] 00:00: [address] NO KNOWN Drug Active Univers ALLERGIE Class ity of S [facility] Social History Social Habit Start Date Stop Date Quantity Comments Source History SDIN [facility] Alcohol Binge Hospital History [facility]aeism Alcohol Std Hospital Drinks Tobacco use and 2021-08-01 2021-08-01 Smokeless tobacco [facility] exposure 00:00:00 00:00:00 non-user Hospital Alcohol intake 2021-08-01 2021-08-01 Lifetime [facility] 00:00:00 00:00:00 non-drinker Hospital (finding) History SDIN 2021-08-01 2021-08-01 1 [facility] Alcohol Frequency 00:00:00 00:00:00 Hospita l Sex Assigned At [birth year] [facility] 00:00:00 00:00:00 Hospital Smoking Status Start Date Stop Date Source Never smoked tobacco [facility] H [facility]spital Medications Ordered Filled Start Stop Current Ordering Indication Dosage Frequency Signature Comments Components Source Medication Medication Date Date Medication? Clinician (SIG) Name Name furosemide Yes 40mg QD Take 1 Metho di (LASIX) 40 1-19 tablet (40 st mg tablet 15:19: mg total) Hos caity 03 by mouth l daily. carvedilol 2022- No 20mg Q.5D Take 1 Meth cordelia CR (COREG 11-03-[address] CR) 20 MG 15:19: 00:00 (20 mg Hospi ta 24 hr 03 :00 total) by l capsule mouth 2 (two) times a day. carvediloL 2022- Yes 12.5mg Q.5D Take 1 Me thodi (COREG) 11-02-[address] 12.5 MG 00:00: 05:59 (12.5 mg Hospi ta tablet 00 :00 total) by l mouth 2 (two) times a day for 30 days. No known 2020-10 No No known Metho [...] PF 2021-07-[address] 00:00:00 Hospital Vital Signs Vital Name Observation Time Observation Value Comments Source Systolic blood 2022-11-02 13:50:01 147 mm[Hg] [facility] pressure Diastolic blood 2022-11-02 13:50:01 87 mm[Hg] [facility] pressure Heart rate 2022-11-02 13:50:01 90 /min [facility] Body temperature 2022-11-02 13:50:01 36 Mary Carmen [facility] Respiratory rate 2022-11-02 13:50:01 18 /min [facility] Oxygen saturation in 2022-11-02 13:50:01 99 /min [facility] Arterial blood by Pulse oximetry Body height 2022-10-25 11:00:00 188 cm [facility] Body weight 2022-10-25 11:00:00 113.399 kg [facility] BMI 2022-10-25 11:00:00 32.10 kg/m2 [facility] Procedures Procedure Date / Time Performing Clinician Source Performed CBC WITH PLATELET AND 2022-11-02 11:12:00 Nika Cowan [facility] DIFFERENTIAL BASIC METABOLIC PANEL 2022-11-02 11:12:00 Nika Cowan [facility] ESTIMATED GFR 2022-11-02 11:12:00 Nika Cowanist Ho spital CBC WITH PLATELET AND 2022-11-01 11:35:00 [facility] DIFFERENTIAL BASIC METABOLIC PANEL 2022-11-01 11:35:00 [facility] ESTIMATED GFR 2022-11-01 11:35:00 Nika Cowan Ho spital PROTEIN, URINE, RANDOM 2022-10-31 19:03:00 [facility] ALBUMIN WITH CREATININE AND 2022-10-31 19:03:00 [facility] RATIO, RANDOM URINE CREATININE LEVEL, URINE, 2022-10-31 19:03:00 [facility] RANDOM CBC WITH PLATELET AND 2022-10-31 12:10:00 [facility]ryn [facility] DIFFERENTIAL BASIC METABOLIC PANEL 2022-10-31 12:10:00 [facility] ESTIMATED GFR 2022-10-31 12:10:00 Nika Cowan spital CBC WITH PLATELET AND 2022-10-30 11:30:00 [facility] DIFFERENTIAL BASIC METABOLIC PANEL 2022-10-30 11:30:00 [facility] ESTIMATED GFR 2022-10-30 11:30:00 Nika Cowan spital CBC WITH PLATELET AND 2022-10-29 11:45:00 [facility] DIFFERENTIAL BASIC METABOLIC PANEL 2022-10-29 11:30:00 [facility] ESTIMATED GFR 2022-10-29 11:30:00 Nika Cowan spital IR LEFT NEPHROSTOMY INITIAL 2022-10-28 23:27:00 Samir Saha [facility] PLACEMENT IR RIGHT NEPHROSTOGRAM NEW 2022-10-28 23:27:00 Samir Saha [facility] ACCESS CBC WITH PLATELET AND 2022-10-28 11:29:00 [facility]ryn [facility] DIFFERENTIAL COMPREHENSIVE METABOLIC 2022-10-28 11:29:00 Nika Cowan [facility] PANEL ESTIMATED GFR 2022-10-28 11:29[facility] 2022-10-27 12:38:[facility] WITH PLATELET AND 2022-10-27 12:38:00 [facility] DIFFERENTIAL BASIC METABOLIC PANEL 2022-10-27 12:38:00 [facility] ESTIMATED GFR 2022-10-27 12:38:00 [facility] MRI PELVIS W WO CONTRAST 2022-10-26 16:51:00 [facility] MRI ABDOMEN W WO CONTRAST 2022-10-26 16:40[facility] 2022-10-26 13:42:00 Rehrer, Parviz [facility] CBC WITH PLATELET AND 2022-10-26 09:30:00 [facility] DIFFERENTIAL COMPREHENSIVE METABOLIC 2022-10-26 09:30:00 [facility] PAN[facility] PHOSPHORUS LEVEL 2022-10-26 09:30:00 [facility] CARCINOEMBRYONIC ANTIGEN 2022-10-26 09:30:00 [facility] FERRIT[facility] 2022-10-26 09:30:00 Leandro Holt [facility] spital PROTHROMBIN TIME WITH INR 2022-10-26 09:30:00 [facility] 2022-10-26 09:30:00 Camryn [facility] spital CT CHEST WO CONTRAST 2022-10-25 23:50:23 Leandro siddiqui [facility] US RENAL 2022-10-25 17:30:04 [facility] URINALYSIS SCREEN AND 2022-10-25 17:01:00 [facility] MICROSCOPY, WITH REFLEX TO CULTURE SODIUM LEVEL, URINE, RANDOM 2022-10-25 17:01:00 [facility] CHLORIDE LEVEL, URINE, 2022-10-25 17:01:00 [facility] RANDOM CREATININE LEVEL, URINE, 2022-10-25 17:01:00 [facility] CULTURE 2022-10-25 16:55:00 [facility] ABDOMEN PELVIS WO 2022-10-25 14:31:42 Rehrer, [facility] CONTRAST CBC WITH PLATELET AND 2022-10-25 12:41:00 Rehrer, [facility] DIFFERENTIAL COMPREHENSIVE METABOLIC 2022-10-25 12:41:00 Rehrer, [facility] PANEL LIPASE LEVEL 2022-10-25 12:41:00 Rehrer, [facility] URINALYSIS SCREEN AND 2022-10-25 12:41:00 Rehrer, [facility] MICROSCOPY, WITH REFLEX TO CULTURE LACTIC ACID LEVEL 2022-10-25 12:41:00 Rehrer, [facility] ESTIMATED GFR 2022-10-25 12:41:00 Amador Beatty jill Ayoub URINE CULTURE 2022-10-25 12:30:00 Rehrer, [facility] CT CHEST EXTERNAL STUDY 2022-08-16 16:25:00 Rhys Gramajo [facility] Jeremy Plan of Care Planned Activity Planned Date Details Comments Source Future Scheduled 2022-11-16 Pneumococcal Vaccine: [facility] Test 08:53:45 Pediatrics (0 to 5 Years) and At-Risk Patients (6 to 64 Years) (1 - PCV) [code = Pneumococcal Vaccine: Pediatrics (0 to 5 Years) and At-Risk Patients (6 to 64 Years) (1 - PCV)] Future Scheduled 2022-11-16 Hepatitis C screening [facility] Test 08:53:45 (procedure) [code = 649608255] Future Scheduled 2022-11-16 SHINGLES VACCINES (1 Met [facility] Test 08:53:45 of 2) [code = SHINGLES VACCINES (1 of 2)] Future Scheduled 2022-11-16 COLONOSCOPY SCREENING [facility] Test 08:53:45 [code = COLONOSCOPY SCREENING] Future Scheduled 2022-11-16 INFLUENZA VACCINE Method [facility] Test 08:53:45 [code = INFLUENZA VACCINE] Future Scheduled 2022-11-16 COVID-19 VACCINE (5 - [facility] Test 08:53:45 Booster for Moderna series) [code = COVID-19 VACCINE (5 - Booster for Moderna series)] Future Scheduled 2022-09-26 Hepatitis C screening [facility] Test 23:54:04 (procedure) [code = 634710959] Future Scheduled 2022-09-26 COLONOSCOPY SCREENING [facility] Test 23:54:04 [code = COLONOSCOPY SCREENING] Future Scheduled 2022-09-26 SHINGLES VACCINES (1 Met [facility] Test 23:54:04 of 2) [code = SHINGLES VACCINES (1 of 2)] Future Scheduled 2022-09-26 INFLUENZA VACCINE Method [facility] Test 23:54:04 [code = INFLUENZA VACCINE] Future Scheduled 2022-09-26 COVID-19 VACCINE (5 - [facility] Test 23:54:04 Booster for Moderna series) [code = COVID-19 VACCINE (5 - Booster for Moderna series)] Future Scheduled 2022-09-26 Hepatitis C screening [facility] Test 23:54:04 (procedure) [code = 949218904] Future Scheduled 2022-09-26 COLONOSCOPY SCREENING [facility] Test 23:54:04 [code = COLONOSCOPY SCREENING] Future Scheduled 2022-09-26 SHINGLES VACCINES (1 Met [facility] Test 23:54:04 of 2) [code = SHINGLES VACCINES (1 of 2)] Future Scheduled 2022-09-26 INFLUENZA VACCINE Method [facility] Test 23:54:04 [code = INFLUENZA VACCINE] Future Scheduled 2022-09-26 COVID-19 VACCINE (5 - [facility] Test 23:54:04 Booster for Moderna series) [code = COVID-19 VACCINE (5 - Booster for Moderna series)] Future Scheduled 2022-08-26 HEPATITIS B VACCINES Met [facility] Test 02:17:57 (1 of 3 - 3-dose series) [code = HEPATITIS B VACCINES (1 of 3 - 3-dose series)] Future Scheduled 2022-08-26 Hepatitis C screening [facility] Test 02:17:57 (procedure) [code = [id number]] Future Scheduled 2022-08-26 COLONOSCOPY SCREENING [facility] Test 02:17:57 [code = COLONOSCOPY SCREENING] Future Scheduled 2022-08-26 SHINGLES VACCINES ([address] [facility] Test 02:17:57 of 2) [code = SHINGLES VACCINES (1 of 2)] Future Scheduled 2022-08-26 INFLUENZA VACCINE Method [facility] Hospital Test 02:17:57 [code = INFLUENZA VACCINE] Future Scheduled 2022-08-26 COVID-19 VACCINE (5 - [facility] Test 02:17:57 Booster for Moderna series) [code = COVID-19 VACCINE (5 - Booster for Moderna series)] Encounters Start End Encounter Admission Attending Care Care Encounter Source Date/Time Date/Time Type Type Clinicians Facility Department ID 2022-09-15 Inpatient Tarsha Butts [facility] RTX [id number] [facility] 00:08:00 00 [facility] 2022-02-13 Inpatient Tarsha ButtsWU RTX [id number] [facility] 15:50:00 64 [facility] 2022-01-14 Inpatient Tarsha ButtsWU RTX [id number] [facility] 16:09:00 81 [facility] 2022-10-25 2022-11-02 [facility] RehrerParviz 1.2.840.1 [id number] Methodi 05:01:00 15:19:00 Encounter Nika Cowan [id number] 3.430.2.7 Hospit a .3.296334 l .8 2022-10-25 2022-11-02 Inpatient NIKA COWAN [facility] [id number] Brandon 00:00:00 00:00:[address] 2022-10-25 2022-10-25 Travel 1.2.840.1 1.2.102.030 [id number] Methodi 00:00:00 00:00:[address] 3.430.2.7 0.2.7.3.698 Ho spita .3.847066 084.8 l .8 2022-09-01 2022-09-14 Outpatient Tarsha ButtsWU RTX [id number] [facility] 09:25:00 00:00:00 94 [facility] 2022-08-25 2022-08-25 Hospital Rox, 1.2.840.1 [id number] Methodi 08:26:09 23:59:00 Encounter Rhys 74436.1.1 243 Jeremy 3.430.2.7 Hospit a .3.550111 l .8 2022-08-25 2022-08-25 Hospital Rox, 1.2.840.1 [id number] Methodi 08:26:09 23:59:00 Encounter Rhys 59883.1.1 243 [facility] 3.430.2.7 Hospit a .3.141591 l .8 2022-04-25 2022-04-25 Outpatient EL Oh, Tarsha [facility] [id number] [facility] 09:28:00 09:28:00 [id number] [facility] 2022-04-25 2022-04-25 Outpatient EL Oh, Tarsha [facility] RTX [id number] [facility] 09:28:00 09:28:00 74 [facility] 2022-01-14 2022-02-12 Outpatient EL Oh, Tarsha [facility] RTX [id number] [facility] 08:34:00 00:00:00 74 [facility] 2021-12-14 2022-01-13 Inpatient EL Oh, Tarsha [facility] RTX [id number] [facility] 14:32:00 00:00:00 52 [facility] 2021-12-27 2021-12-27 Inpatient EL Oh, Tarsha [facility] SUGL [id number] [facility] 10:30:00 09:30:00 05 [facility] 2021-12-21 2021-12-21 Outpatient EL Oh, Tarsha [facility] SUGL [id number] [facility] 09:11:00 09:11:00 36 [facility] 2021-10-18 2021-11-15 Inpatient EL Oh, Tarsha [facility] RTX [id number] [facility] 11:23:00 00:00:00 91 [facility] 2021-09-02 2021-09-14 Outpatient EL Oh, Tarsha [facility] RTX [id number] [facility] 10:13:00 00:00:00 86 [facility] 2021-09-08 2021-09-08 Outpatient Tarsha Butts [facility] [id number] [facility] 08:46:00 08:46:00 74 [facility] 2021-08-06 2021-08-06 Outpatient [facility] [id number] [place] 00:00:00 00:00:[address] 2021-08-04 2021-08-04 Outpatient [facility] [id number] [place] 00:00:00 00:00:[address] 2021-08-01 2021-08-03 Outpatient LAILA [facility] [id number] [place] 00:00:00 00:00:00 JENNY 205 Method i 2021-07-23 2021-07-23 Outpatient [facility] [id number] Brandon 00:00:00 00:00:00 041 Method i 2021-07-23 2021-07-23 Outpatient [facility] [id number] Brandon 00:00:00 00:00:00 991 Method i 2021-07-21 2021-07-21 Outpatient [facility]OL[facility] [id number] [place] 00:00:00 00:00:[address] 2021-07-21 2021-07-21 Outpatient [facility] [id number] [place] 00:00:00 00:00:[address] 2021-06-28 2021-07-06 Inpatient CAMRYNGABYBAR [facility] [id number] Brandon 00:00:00 00:00:[address] 2021-06-02 2021-06-02 Outpatient [facility]ONATHAN [facility] [facility] [id number] [place] 00:00:00 00:00:[address] 2021-04-26 2021-04-26 Emergency X [facility] ERT [id number] [facility] 16:39:00 16:39:00 [facility] Results Test Description Test Time Test Comments Results Result Comments Source SARS-CoV-2 (COVID-19) RNA [Presence] in Respiratory sp ecimen by 2022-10-26 11:43:33 YVROSE with probe detection Test Item Value Reference Range Interpretation Comme nts SARS-CoV-2 (COVID-19) RNA [Presence] in Respiratory specimen by Not detected YVROSE with probe detection (test code = 58975-2) Whether patient is employed in a healthcare setting (test code = Un known 69183-2) Whether the patient has symptoms related to condition of interest U nknown (test code = 76713-6) Whether the patient was hospitalized for condition of interest Unkn own (test code = 09042-1) Whether the patient was admitted to intensive care unit (ICU) for U nknown condition of interest (test code = 60344-0) Whether patient resides in a congregate care setting (test code = U nknown 67159-3) status (test code = 58030-6) Unknown Date and time of symptom onset (test code = 77798-8) Unknown [facility] [id number] 18:02:00 Test Item Value Reference Range Interpretation Comments Urine culture (test SEE COMMENT Bacteriu rony screen code = 1305026) negative. [facility]- PET/CT TUMOR SK BS [id number] 14:28:00 [facility] 1965 Sex: M Patient Name: GENO PRASAD Unit No: [id number] EXAMS: CPT CODE: [id number] PET/CT TUMOR SK MIDTH 91964 EXAMINATION: - PET/CT TUMOR SK MIDTH COMPARISON: PET/CT performed September 08, 2021 INDICATION: Restaging of rectal carcinoma CLINICAL HISTORY: 56-year-old male patient with a history of rectal carcinoma.He has undergone chemotherapy and radiation, and has recently undergone surgery LOCATION CODE: C3 TECHNIQUE: Following the IV administration of 10.65 mCi of F-18 labeled FDG, imaging of the body was then performed from the vertex of the skull to the mid thighs. Images were reviewed in standard orthogonal projections. Concordant CT imaging was also performed for localization and attenuation correctionpurposes only. The CT images do not constitute a diagnostic quality CT examination and were not usedto diagnose disease independently of the PET imaging. All CT scans are performed using dose optimization techniques as appropriate to a performed exam including one or more of the following: ?Automatedexposure control ?Adjustment of the mA and/or kV according to patient size ?Use of iterative reconstruction technique BLOOD GLUCOSE LEVEL: 98 mg/dl INJECTION TO SCAN TIME: 68 minutes FINDINGS: HEAD ANDNECK: Tracer uptake in the brain and soft tissues of the neck is physiologic. CHEST: No FDG lung masses, consolidations or effusions are present. Right chest wall chemotherapy port remains present. Mode rate dose infiltration is seen in the soft [...] the drain follows the course of the [facility] NAME: GENO PRASAD [address] [address] PHYS: [place] [address] : 1965 AGE: 56 SEX: M LOC: DayronZNUC PHONE #: [phone] EXAM DATE: 12/21/2021 STATUS: REG CLI FAX #: [phone] RADIOLOGY NO: PAGE 1 Signed Report (CONTINUED) Patient Name: GENO PRASAD Unit No: [id number] EXAMS: CPT CODE: [id number] PET/CT TUMOR SK BS MIDTH 51916 <Continued> sigmoid colon. Uptake in the more proximal sigmoid colon of up to 6.8 was seen on the prior exam. There is continued thickening abnormal uptake in the rectum. Area of uptake measures approximately 5.2 x 2.8 cm with uptake values up to 7.2 (previously 4.7 x 2.4 cmwhen remeasured in a similar manner with an uptake of 6.5). However, exact comparison is difficult given the changes related to the recent surgery. Scattered areas of nonspecific uptake are seen in themore proximal bowel MUSCULOSKELETAL SYSTEM: Areas of osteoarthritic uptake are seen around the right shoulder, both hips and in the facet joints of the lower lumbar spine. No suspicious bony lesions are identified. IMPRESSION: Interval postsurgical changes as above. There is continued increased uptakeand thickening in the rectum. Area of uptake appears slightly more prominent compared to the prior st udy but the patient has undergone recent surgery [...] and signed by: Gregoria Reynolds MD CC: Shasha Mancera MD Technologist: Alessia Bradshaw, RT(M)(CT); Linnea Vasquez RT(N) Transcrpt Date/Tm/Trnsp: 12/21/2021 (1428) [id number] Orig Print D/T: S: 12/21/2021 (7180) [facility] NAME: SHANICEGENO [address] [place] [address] PHYS: [place] [address] : 1965 AGE: 56 SEX: M LOC: ZEarnestZNUC PHONE #: [phone] EXAM DATE: 12/21/2021 STATUS: REG CLI FAX #: [phone] RADIOLOGY NO: PAGE 2 Signed [id number] 09:50:00 Test Item Value Reference Range Interpretation Comments GLUCOSE (test code = GLU) 98 MG/DL 79-105 N Comments to Coroner Transport Technician: FOR PETIs this a LINE draw? N- PET/CT TUMOR SK BS [id number] 13:41:00 [facility] : 1965 Sex: M Patient Name: GENO PRASAD Unit No: [id number] EXAMS: CPT CODE: [id number] PET/CT TUMOR [facility] [address] EXAM: PET/CT scan INDICATION: MALIGNANT NEOPLASM OF RECTUM COMPARISON: None at this time LOCATION: [facility] TECHNIQUE: Approximately 60 minutes following the [...] centimeter in diameter, which demonstrate minimal hypermetabolic ac tivity. The maximum SUV is 1.4. There is diffuse increased tracer activity involving the soft tissues adjacent to the right humeral head, consistent with benign musculoskeletal activity. No other areasof abnormal hypermetabolic activity are identified. No lymphadenopathy by size criteria is identified. The heart, kidneys, renal collecting systems and bladder demonstrate normal distribution of traceractivity. Impression: There is a focal area of [...] spine without and with contrast is recommended. [facility] NAME: GENO PRASAD [address] [facility] [address] PHYS: [place] [address] : 1965 AGE: 56 SEX: M LOC: ZVisualnet PHONE #: [phone] EXAM DATE: 09/08/2021 STATUS: DEP CLI FAX#: [phone] RADIOLOGY NO: PAGE 1 Signed Report (CONTINUED) Patient Name: GENO PRASAD Unit No:[id number] EXAMS: CPT CODE: [id number] PET/CT TUMOR SK BS MIDTH 98565 <Continued> There are small lymph nodes in [...] t.SDR.PMT Orig Print D/T: S: 09/10/2021 (1344) [facility] NAME: GENO PRASAD [address] [facility] PHYS: [place] [address] : 1965 AGE: 56 SEX: M LOC: Z.ZNUC PHONE #: [phone] EXAM DATE: 09/08/2021 STATUS: DEP CLI FAX #: [phone] RADIOLOGY NO: PAGE 2 Signed [id number] 09:44:00 Test Item Value Reference Range Interpretation Comments GLUCOSE (test code = GLU) 86 MG/DL 79-105 N SARS-CoV-2 (COVID-19) RNA [Presence] in Respiratory specimen by YVROSE with probe [id number] 18:54:41 Test Item Value Reference Range Interpretation Comments SARS-CoV-2 (COVID-19) RNA Not detected Not-Detected [Presence] in Respiratory specimen by YVROSE with probe detection (test code = 17695-3) Whether patient is employed in a healthcare setting (test code = 88368-8) Whether the patient has symptoms related to condition of interest (test code = 82631-1) Patient was hospitalized because of this condition (test code = 22623-6) Whether the patient was admitted to intensive care unit (ICU) for condition of interest (test code = 62706-0) Whether patient resides in a congregate care setting (test code = 53138-6) status (test code = 15539-5) BERNARDO DEE-CoV-2 (COVID-19) RNA [Presence] in Respiratory specimen by YVROSE with probe [id number] 16:30:19 Test Item Value Reference Range Interpretation Comments SARS-CoV-2 (COVID-19) RNA Not detected Not-Detected [Presence] in Respiratory specimen by YVROSE with probe detection (test code = 50022-4) Whether patient is employed in a healthcare setting (test code = 17338-4) Whether the patient has symptoms related to condition of interest (test code = 28127-5) Patient was hospitalized because of this condition (test code = 53192-0) Whether the patient was admitted to intensive care unit (ICU) for condition of interest (test code = 08671-4) Whether patient resides in a congregate care setting (test code = 01134-4) BERNARDO WAITE
[2022-11-16] MEDS ORDERED: ONDANSETRON 4 MG/2 ML VIAL ONE (22:05)
[2022-11-16] MEDS ORDERED: MORPHINE 4 MG/ML SYR ONE ×2 (22:05→23:51)
[2022-11-16 22:21] LABS: Absolute Lymphocytes (CBC) 0.5 K/uL (0.7-4.9); Hematocrit 30.9 % (39.6-49.0); Lymphocytes % 11.5 % (15.3-44.8); MCV 81.2 fL (80-100); MPV 6.4 fL (7.6-11.3)
[2022-11-16 22:45] LABS: Albumin 2.6 g/dL (3.4-5.0); Bilirubin Total 0.5 mg/dL (0.2-1.0); Protein, Total 6.9 g/dL (6.4-8.2)
[2022-11-16 22:46] LABS: Potassium 4.1 mmol/L (3.5-5.1)
[2022-11-16] MEDS ORDERED: NA CHLORIDE 0.9% 1,000 ML ONE (23:52)
--- NOTE | 2022-11-17 01:37 | ER ---
Nurse's Notes [facility] Name: Edwin Young Age: 57 yrs Sex: Male : 1965 Arrival Date: 11/16/2022 Time: 21:20 Bed 11 Private MD: Diagnosis: Other chronic pain-rectum Presentation: 11/16 21:26 Chief complaint: Patient states: I have colon cancer and i ran out of my [place] and i am kd3 just in a lot of pain in my rectum. I have been in this pain for a few days now. Coronavirus screen: Vaccine status: Patient reports receiving the 2nd dose of the covid vaccine. Ebola Screen: No symptoms or risks identified at this time. Initial Sepsis Screen: Does the patient meet any 2 criteria? No. Patient's initial sepsis screen is negative. Does the patient have a suspected source of infection? No. Patient's initial sepsis screen is negative. Risk Assessment: Do you want to hurt yourself or someone else? Patient reports no desire to harm self or others. Onset of symptoms was November 16, 2022. 21:26 Method Of Arrival: Ambulatory kd3 21:26 Acuity: JASWINDER 4 kd3 Triage Assessment: 21:27 General: Appears uncomfortable, unkempt, Behavior is calm, cooperative. Pain: Complains kd3 of pain in rectal. Historical: - PMHx: 21:27 Chemotherapy (last one was August,); colon cancer; Gout; Hypertension; CHF; kd3 - Immunization history:: Adult Immunizations up to date. - Social history:: Smoking status: Patient denies any tobacco usage or history of. Screenin:53 [facility] ED Fall Risk Assessment (Adult) History of falling in the last 3 months, ll3 including since admission No falls in past 3 months (0 pts) Confusion or Disorientation No (0 pts) Intoxicated or Sedated No (0 pts) Impaired Gait No (0 pts) Mobility Assist Device Used No (0 pt) Altered Elimination Yes (1 pt) Score/Fall Risk Level 0 - 2 = Low Risk Oriented to surroundings, Maintained a safe environment, Educated pt \T\ family on fall prevention, incl call for assistance when getting out of bed. Abuse screen: Denies threats or abuse. Denies injuries from another. Nutritional screening: No deficits noted. Tuberculosis screening: No symptoms or risk factors identified. Assessment: 21:30 General: Appears uncomfortable, Behavior is calm, cooperative. Pain: Complains of pain ll3 in buttocks Pain does not radiate. Pain currently is 8 out of 10 on a pain scale. Neuro: Level of Consciousness is awake, alert, obeys commands, Oriented to person, place, time, situation. Derm: Reports Rectal bleeding and pain. 23:52 Reassessment: Patient and/or family updated on plan of care and expected duration. Pain ll3 level reassessed. Patient is alert, oriented x 3, equal unlabored respirations, skin warm/dry/pink. States pain is 7/10, FARIDA Raya notified, medicated as ordered. 11/17 01:00 Reassessment: Patient appears in no apparent distress at this time. Patient and/or kl family updated on plan of care and expected duration. Pain level reassessed. Vital Signs: 11/16 21:22 BP 140 / 91; Pulse 102; Resp 18; Temp 98.4(O); Pulse Ox 100% ; Weight 104.33 kg; Height kd3 6 ft. 1 in. (185.42 cm); Pain 8/10; 23:52 BP 140 / 97; Pulse 103; Resp 19; Pulse Ox 98% on R/A; Pain 7/10; ll3 11/17 01:48 BP 127 / 89; Pulse 72; Resp 18; Pulse Ox 98% ; kl 11/16 21:22 Body Mass Index 30.34 (104.33 kg, 185.42 cm) kd3 ED Course: 11/16 21:20 Patient arrived in ED. ja2 21:27 Triage completed. kd3 21:27 Steven Quesada PA is PHCP. cp 21:27 Ky Walker MD is Attending Physician. cp 21:27 Arm band placed on right wrist. kd3 22:12 Initial lab(s) drawn, by me, sent to lab. Inserted saline lock: 22 gauge in right ll3 forearm, using aseptic technique. Blood collected. 23:12 Abdomen In Process Unspecified. EDMS 23:53 Patient has correct armband on for positive identification. Placed in gown. Bed in low ll3 position. Call light in reach. Side rails up X 1. 23:54 No provider procedures requiring assistance completed. ll3 11/17 00:32 Rachel Freedman, RN is Primary Nurse. kd3 01:30 No apparent distress. Appears to be sleeping. kl 01:50 IV discontinued, intact, bleeding controlled, No redness/swelling at site. Pressure kl dressing applied. Administered Medications: 11/16 22:16 Drug: Zofran (Ondansetron) 4 mg Route: IVP; Site: right forearm; ll3 23:47 Follow up: Response: No adverse reaction ll3 22:17 Drug: morphine 4 mg Route: IVP; Infused Over: 4 mins; Site: right forearm; ll3 23:46 Follow up: Response: No adverse reaction ll3 23:55 Drug: morphine 4 mg Route: IVP; Infused Over: 4 mins; Site: right forearm; ll3 23:55 Drug: NS 0.9% 500 ml Route: IV; Rate: bolus; Site: right forearm; ll3 11/17 00:33 Drug: NS 0.9% 500 ml Route: IV; Rate: 100 ml/hr; Site: right antecubital; kd3 01:37 Drug: Lidocaine Solution (4%) 1 application Route: Topical; Site: affected area; kl Medication: 11/16 23:53 VIS not applicable for this client. ll3 Outcome: 11/17 01:37 Discharge ordered by . jhony 01:49 Discharged to home ambulatory. kl 01:49 Condition: improved 01:49 Discharge instructions given to patient, Instructed on discharge instructions, follow up and referral plans. medication usage, Demonstrated understanding of instructions, follow-up care, medications, Prescriptions given X 1. 01:50 Patient left the ED. Signatures: Dispatcher [employer] EDMS Suki Gan RN Steven Rajan PA PA cp Alexander, Jessica ja2 Loubet, Lynsea, RN RN ll3 Rachel Freedman, RN RN kd3
--- NOTE | 2022-11-17 01:37 | EDPHYS ---
Physician Documentation [facility] Name: Edwin Young Age: 57 yrs Sex: Male : 1965 Arrival Date: 11/16/2022 Time: 21:20 Bed 11 Private MD: ED Physician Ky Walker HPI: 11/16 21:40 This 57 yrs old Black Male presents to ER via Ambulatory with complaints of Rectal cp Pain, Rectal Bleeding. 21:40 The patient presents to the emergency department with pain in the rectal area, that is cp severe. 21:40 Onset: The symptoms/episode began/occurred chronically, worse over past several days. cp Patient admits to running out of prescribed [place]. 21:40 Patient reports history of Colon CA. History of multiple abdominal surgeries to remove cp colon resection surgery. Historical: - PMHx: 21:27 Chemotherapy (last one was August,); colon cancer; Gout; Hypertension; CHF; kd3 - Immunization history:: Adult Immunizations up to date. - Social history:: Smoking status: Patient denies any tobacco usage or history of. ROS: 21:45 Constitutional: Negative for body aches, chills, fever, poor PO intake. cp 21:45 Eyes: Negative for injury, pain, redness, and discharge. cp 21:45 ENT: Negative for drainage from ear(s), ear pain, sore throat, difficulty swallowing, difficulty handling secretions. 21:45 Cardiovascular: Negative for chest pain, edema, palpitations. 21:45 Respiratory: Negative for cough, shortness of breath, wheezing. 21:45 Abdomen/GI: Positive for rectal pain, Negative for abdominal pain, vomiting, diarrhea, constipation, black/tarry stool, rectal bleeding. 21:45 Neuro: Negative for altered mental status, dizziness, numbness, syncope, weakness. 21:45 All other systems are negative. Exam: 21:50 Constitutional: The patient appears in no acute distress, alert, awake, cp non-diaphoretic, non-toxic, well developed, well nourished, uncomfortable. 21:50 Head/Face: Normocephalic, atraumatic. cp 21:50 Eyes: Periorbital structures: appear normal, Conjunctiva: normal, no exudate, no cp injection, Sclera: no appreciated abnormality, Lids and lashes: appear normal, bilaterally. 21:50 ENT: External ear(s): are unremarkable, Nose: is normal, Mouth: Lips: moist, Oral mucosa: moist, Posterior pharynx: Airway: no evidence of obstruction, patent. 21:50 Chest/axilla: Inspection: normal. 21:50 Cardiovascular: Rate: tachycardic, Rhythm: regular, Edema: is not appreciated, JVD: is not appreciated. 21:50 Respiratory: the patient does not display signs of respiratory distress, Respirations: normal, no use of accessory muscles, no retractions, labored breathing, is not present, Breath sounds: are clear throughout, no decreased breath sounds, no stridor, no wheezing. 21:50 Abdomen/GI: Inspection: scar(s), right lower flank colostomy and left side lower abdomen colostomy , Bowel sounds: active, all quadrants, Palpation: soft, in all quadrants, mild abdominal tenderness, in all quadrants, Rectal exam: tenderness with no masses, lesions noted. 21:50 Back: pain, is absent, ROM is normal, left mid back nephrostomy tube. cp 21:50 Neuro: Orientation: to person, place \T\ time. Mentation: is normal, Motor: moves all fours, strength is normal, Gait: is steady. Vital Signs: 21:22 BP 140 / 91; Pulse 102; Resp 18; Temp 98.4(O); Pulse Ox 100% ; Weight 104.33 kg; Height kd3 6 ft. 1 in. (185.42 cm); Pain 8/10; 23:52 BP 140 / 97; Pulse 103; Resp 19; Pulse Ox 98% on R/A; Pain 7/10; ll3 02/ 01:48 BP 127 / 89; Pulse 72; Resp 18; Pulse Ox 98% ; kl 11/16 21:22 Body Mass Index 30.34 (104.33 kg, 185.42 cm) kd3 MDM: 11/16 23:00 Differential diagnosis: hemorrhoids, fissure, abscess, pilonidal cyst, condyloma. cp 02/02 01:37 Patient medically screened. cp 01:37 Data reviewed: vital signs, nurses notes. cp 01:37 Consideration of Admission/Observation Escalation of care including cp admission/observation considered. I considered the following discharge prescriptions or medication management in the emergency department Medications were administered in the Emergency Department. See MAR. 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 Response to treatment: the patient's symptoms have markedly improved after treatment, and as a result, I will discharge patient. Special discussion: Based on the patient's Hx, exam, and Dx evaluation, there is no indication for emergent surgery or inpatient Tx. It is understood by the patient/guardian that if the Sx's persist or worsen they need to return immediately for re-evaluation. 11/16 21:59 Order name: CBC with Diff; Complete Time: 23:44 cp 11/16 23:44 Interpretation: Normal except: RBC 3.80; HGB 10.0; HCT 30.9; MCH 26.4; RDW 17.0; MPV cp 6.4; LYM% 11.5; MN% 13.4; LYMA 0.5. 11/16 21:59 Order name: CMP; Complete Time: 23:44 cp 11/16 23:45 Interpretation: Normal except: GLUC 117; CRE 1.59; GFR 50; AST 10; ALT 12; ALB 2.6; cp GLOB 4.3; A/G 0.6. 11/16 21:59 Order name: Lipase; Complete Time: 23:44 cp 11/16 23:02 Order name: Abdomen ; Complete Time: 21:50 EDMS 11/16 21:59 Order name: IV Saline Lock; Complete Time: 22:12 cp 11/16 21:59 Order name: Labs collected and sent; Complete Time: 22:12 cp Administered Medications: 11/16 22:16 Drug: Zofran (Ondansetron) 4 mg Route: IVP; Site: right forearm; ll3 23:47 Follow up: Response: No adverse reaction ll3 22:17 Drug: morphine 4 mg Route: IVP; Infused Over: 4 mins; Site: right forearm; ll3 23:46 Follow up: Response: No adverse reaction ll3 23:55 Drug: morphine 4 mg Route: IVP; Infused Over: 4 mins; Site: right forearm; ll3 23:55 Drug: NS 0.9% 500 ml Route: IV; Rate: bolus; Site: right forearm; ll3 11/17 00:33 Drug: NS 0.9% 500 ml Route: IV; Rate: 100 ml/hr; Site: right antecubital; kd3 01:37 Drug: Lidocaine Solution (4%) 1 application Route: Topical; Site: affected area; kl Disposition: 02:31 Co-signature as Attending Physician, Ky Walker MD I reviewed the patient's care rt provided by the Advanced Practice Provider and agree with the diagnosis and treatment plan. Disposition Summary: 11/17/22 01:37 Discharge Ordered Location: Home cp Problem: an ongoing problem cp Symptoms: have improved cp Condition: Stable cp Diagnosis - Other chronic pain - rectum cp Followup: cp - With: Private Physician - When: 1 - 2 days - Reason: Recheck today's complaints Discharge Instructions: - Discharge Summary Sheet cp - Chronic Pain, Adult cp Forms: - Medication Reconciliation Form cp - Thank You Letter cp - Antibiotic Education cp - Prescription Opioid Use cp Prescriptions: - lidocaine HCl 3 % Topical cream - apply 1 application by TOPICAL route 3 times per day As needed; 45 gram; cp Refills: 0, Product Selection Permitted Signatures: Dispatcher [employer] EDOR Suki Gan RN RN Steven Perez PA PA cp Romero Downey, RN RN ll3 Rachel Freedman RN RN kd3 Ky Walker MD MD rt Corrections: (The following items were deleted from the chart) 11/16 23:02 22:00 Abdomen Pelvis W Con+CT.RAD.BRZ ordered. EDOR EDOR 11/17 21:54 11/16 21:50 Abdomen/GI: Inspection: scar(s), right side lower abdomen ostomy and left cp side lower abdomen osteomy, cp
[2022-11-17] MEDS ORDERED: LIDOCAINE VISCOUS 2% SOLN 15 ML UDC ONE (01:38)
[2022-11-17 02:11] VITALS: TEMP 98.4
[2022-11-17 02:12] VITALS: O2SAT 98
[2022-11-17 02:14] VITALS: BP 127/89
--- NOTE | 2022-11-17 14:07 | RAD REPORT ---
EXAM DESCRIPTION: CT - Abdomen Pelvis Wo Contrast - 11/17/2022 6:27 am CLINICAL HISTORY: 57 years, Male, rectal pain COMPARISON: 10/19/2022 TECHNIQUE: Multiple transaxial tomograms of the abdomen and pelvis were performed from the lung base s to the symphysis pubis utilizing 5 mm slice thickness at 5 mm interval reconstruction, without admi nistration of IV and oral contrast. Multiplanar reformats in the sagittal and coronal plane were generated and reviewed. This exam was performed according to our departmental dose-optimization protocol, which includes auto mated exposure control, adjustment of the mA and/or kV according to patient size and/or use of iterat jessica reconstruction technique. FINDINGS: The lack of IV and oral contrast limits evaluation of solid organs, subtle lesions cannot be excluded. The lung bases minimal atelectasis right lung base. Mild elevation right hemidiaphragm. Grossly the unopacified liver, gallbladder, pancreas, spleen and adrenal glands demonstrate to be wit hin normal limits, no significant focal lesions were identified. The right kidney demonstrated presence of a mild hydronephrosis and mild hydroureter perhaps slightly increased when compared to prior study. The left kidney demonstrate interval placement of a percutaneous nephrostomy tube in place. No evidence for nephrolithiasis and either kidney. Grossly the unopacified stomach and small bowel demonstrate to be within normal limits. There is no e vidence for small bowel dilatation/or free air. 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 Again there is identified the presence of a left lower quadrant colostomy. Again there is a rectal stump soft tissue mass measuring 4.4 cm on axial image [address] udy distal to the rectal stump. There is a focal area of hypodensity again perhaps suggesting fluid. There is a left sided pelvic wall prominent lymph node. The urinary bladder was suboptimal in distention with diffuse wall thickening. The prostate gland is unremarkable The aorta demonstrate minimal atheromatous plaque formation. There is no significant r etroperitoneal lymphadenopathy. There is no evidence for ascites. The bone windows demonstrate no s ignificant skeletal lesion. IMPRESSION: Interval placement of a left percutaneous nephrostomy tube in place. Mild right hydronephrosis and mild hydroureter perhaps slightly increased when compared to prior stud y. Again identified is the presence of a rectal stump soft tissue mass measuring 4.4 cm similar to prior study distal to the rectal stump. Prominent left sided pelvic wall lymph node. No significant interval change in comparison with prior study. 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 Electronically signed by: Edwin Nation MD 11/16/2022 11:38 PM TEAM LEADER SURGERY Due to temporary technical issues with the PACS/Fluency reporting system, reports are being signed by the in house radiologists without review as a courtesy to insure prompt reporting. The interpreting radiologist is fully responsible for the content of the report.
== END 2022-11-17 01:50 | disposition home or self-care (01) ==
LOC: ER 21:18
DX: G89.29 Other chronic pain (principal); Z85.038 Personal history of other malignant neoplasm of large intestine; I10 Essential (primary) hypertension; I50.9 Heart failure, unspecified
CPT/HCPCS: 85025; 36415; 83690; 80053; 74176; 96375; 96374; 99284; J7030; J2405

== ENCOUNTER 2022-11-30 08:04 | Emergency (ER) | payer OTHER ==
--- OUTSIDE RECORDS SUMMARY | 2022-11-30 08:09 | XMS REPORT | Continuity of Care Document ---
:1965 Author Organization [facility] t Address [address] [place] [address] Care Team Providers Name Role Phone Asked, No Pcp Primary Care Physician Unavailable Tarsha Mancera Attending Clinician Unavailable LesterreParviz aguilar DO Attending Clinician Nika Cowan MD Attending Clinician Rhys Gramajo MD Attending Clinician [phone] LEANDRO HOLT Attending Clinician Unavailable JENNY [...] Treatment Clinician Date Diarrhea Diarrhea Disease Active 2021-1 Metho di of of 0-17 st presumed [...] 2020-10 [facility] [address] 00:00: [address] NO KNOWN Drug Active Univers ALLERGIE Class ity of S [facility] Social History Social Habit Start Date Stop Date Quantity Comments Source History [facility] Worship Alcohol Std Hospital Drinks History [facility] W[facility] Alcohol Binge Hospital Tobacco use and 2021-08-01 2021-08-01 Smokeless tobacco [facility] exposure 00:00:00 00:00:00 non-user Hospital Alcohol intake 2021-08-01 2021-08-01 Lifetime Worship 00:00:00 00:00:00 non-drinker Hospital (finding) History [facility] 2021-08-01 2021-08-01 1 Worship Alcohol Frequency 00:00:00 00:00:00 Hospita l Sex Ass[birth year] At [birth year] Worship 00:00:00 00:00:00 Hospital Smoking Status Start Date Stop Date Source Never smoked tobacco Worship H ospital Medications Ordered Filled Start Stop Current Ordering Indication Dosage Frequency Signature Comments Components Source Medication Medication Date Date Medication? Clinician (SIG) Name Name furosemide Yes 40mg QD Take 1 Metho di (LASIX) 40 1-19 tablet (40 st mg tablet 15:19: mg total) Hos caity 03 by mouth l daily. furosemide Yes 40mg QD Take 1 Metho di (LASIX) 40 1-19 tablet (40 st mg tablet 15:19: mg total) Hos caity 03 by mouth l daily. carvedilol 20mg Q.5D Take 1 Meth cordelia CR (COREG 1-19 01-[address] CR) 20 MG 15:19: 00:00 (20 mg Hospi ta 24 hr 03 :00 total) by l capsule mouth 2 (two) times a day. carvedilol 2022- No 20mg Q.5D Take 1 Meth cordelia CR (COREG 11-[address] CR) 20 MG 15:19: 00:00 (20 mg Hospi ta 24 hr 03 :00 total) by l capsule mouth 2 (two) times a day. carvediloL 2022- Yes 12.5mg Q.5D Take 1 Me thodi (COREG) 11-[address] 12.5 MG 00:00: 05:59 (12.5 mg Hospi ta tablet 00 :00 total) by l mouth 2 (two) times a day for 30 days. carvediloL 2022- Yes 12.5mg Q.5D Take 1 Me thodi (COREG) 11-[address] 12.5 MG 00:00: 05:59 (12.5 [...] Source Systolic blood 2022-11-02 13:50:01 147 mm[Hg] [facility] pressure Diastolic blood 2022-11-02 13:50:01 87 mm[Hg] [facility] pressure Heart rate 2022-11-02 13:50:01 90 /min [facility] Body temperature 2022-11-02 13:50:[address] [facility] Respiratory rate 2022-11-02 13:50:01 18 /min [facility] Oxygen saturation in 2022-11-02 13:50:01 99 /min [facility] Arterial blood by Pulse oximetry Body height 2022-10-25 11:00:00 188 cm [facility] Body weight 2022-10-25 11:00:00 113.399 kg [facility] BMI 2022-10-25 11:00:00 32.10 kg/m2 [facility] Procedures Procedure Date / Time Performing Clinician Source Performed CBC WITH PLATELET AND 2022-11-02 11:12:00 Camryn [facility] DIFFERENTIAL BASIC METABOLIC PANEL 2022-11-02 11:12:00 [facility] ESTIMATED GFR 2022-11-02 11:12:00 Nika Cowan Ho spital CBC WITH PLATELET AND 2022-11-01 11:35:00 [facility] DIFFERENTIAL BASIC METABOLIC PANEL 2022-11-01 11:35:00 [facility] ESTIMATED GFR 2022-11-01 11:35:00 Nika Cowan spital PROTEIN, URINE, RANDOM 2022-10-31 19:03:00 [facility] ALBUMIN WITH CREATININE AND 2022-10-31 19:03:00 [facility] RATIO, RANDOM URINE CREATININE LEVEL, URINE, 2022-10-31 19:03:00 [facility] RANDOM CBC WITH PLATELET AND 2022-10-31 12:10:00 [facility] DIFFERENTIAL BASIC METABOLIC PANEL 2022-10-31 12:10:00 [facility] ESTIMATED GFR 2022-10-31 12:10:00 Nika Cowan Ho spital CBC WITH PLATELET AND 2022-10-30 11:30:00 [facility] DIFFERENTIAL BASIC METABOLIC PANEL 2022-10-30 11:30:00 [facility] ESTIMATED GFR 2022-10-30 11:30:00 Nika Cowan Ho spital CBC WITH PLATELET AND 2022-10-29 11:45:00 [facility] 2022-10-29 11:30:00 [facility] 2022-10-29 11:30:00 Camryn [facility] spital IR LEFT NEPHROSTOMY INITIAL 2022-10-28 23:27:00 Samir Saha Melisa- harisng [facility] PLACEMENT IR RIGHT NEPHROSTOGRAM NEW 2022-10-28 23:27:00 Samir Saha Melisa-[facility] paul [facility] ACCESS CBC WITH PLATELET AND 2022-10-28 11:29:00 [facility]FFERENTIAL COMPREHENSIVE METABOLIC 2022-10-28 11:29:00 [facility]FR 2022-10-28 11:29:00 Camryn [facility] spital CBC WITH PLATELET AND 2022-10-27 12:38:00 [facility] DIFFERENTIAL COMPREHENSIVE METABOLIC 2022-10-27 12:38:00 [facility]EL BASIC METABOLIC PANEL 2022-10-27 12:38:00 [facility] ESTIMATED GFR 2022-10-27 12:38:00 [facility] MRI PELVIS W WO CONTRAST 2022-10-26 16:51:00 chen [facility] MRI ABDOMEN W WO CONTRAST 2022-10-26 16:40:00 Leandro Holt [facility] COVID-19 QUALITATIVE RT-PCR 2022-10-26 13:42:00 RehreParviz aguilar [facility] CBC WITH PLATELET AND 2022-10-26 09:30:00 [facility] DIFFERENTIAL COMPREHENSIVE METABOLIC 2022-10-26 09:30:00 [facility] PANEL PHOSPHORUS LEVEL 2022-10-26 09:30:00 Shaina Engle [facility] CARCINOEMBRYONIC ANTIGEN 2022-10-26 09:30:00 Leandro siddiqui [facility] ([facility]) FERRITIN LEVEL 2022-10-26 09:30:00 HeLeandro siddiqui spital PROTHROMBIN TIME WITH INR 2022-10-26 09:30:00 Leandro Holt [facility] ESTIMATED GFR 2022-10-26 09:30:[address] CHEST WO CONTRAST 2022-10-25 23:50:23 Leandro Holt [facility] US RENAL 2022-10-25 17:30:04 [facility] URINALYSIS SCREEN AND 2022-10-25 17:01:00 [facility] MICROSCOPY, WITH REFLEX TO CULTURE SODIUM LEVEL, URINE, RANDOM 2022-10-25 17:01:00 [facility] CHLORIDE LEVEL, URINE, 2022-10-25 17:01:00 [facility] RANDOM CREATININE LEVEL, URINE, 2022-10-25 17:01:00 [facility] RANDOM URINE CULTURE 2022-10-25 16:55:[address] [facility] [address] ABDOMEN PELVIS WO 2022-10-25 14:31:42 Rehrer, [facility] CONTRAST CBC WITH PLATELET AND 2022-10-25 12:41:00 Rehrer, [facility] DIFFERENTIAL COMPREHENSIVE METABOLIC 2022-10-25 12:41:00 Rehrer, [facility] PANEL LIPASE LEVEL 2022-10-25 12:41:00 Rehrer, [facility] URINALYSIS SCREEN AND 2022-10-25 12:41:00 Rehrer, [facility] MICROSCOPY, WITH REFLEX TO CULTURE LACTIC ACID LEVEL 2022-10-25 12:41:00 Rehrer, [facility] ESTIMATED GFR 2022-10-25 12:41:00 Amador Beatty guillermotal Jewel R. URINE CULTURE 2022-10-25 12:30:00 Rehrer, [facility] CT CHEST EXTERNAL STUDY 2022-08-16 16:25:00 Rhys Gramajo [facility] Jeremy Plan of Care Planned Activity Planned Date Details Comments Source Future Scheduled 2022-11-30 Pneumococcal Vaccine: [facility] Test 08:08:13 Pediatrics (0 to 5 Years) and At-Risk Patients (6 to 64 Years) (1 - PCV) [code = Pneumococcal Vaccine: Pediatrics (0 to 5 Years) and At-Risk Patients (6 to 64 Years) (1 - PCV)] Future Scheduled 2022-11-30 Hepatitis C screening [facility] Test 08:08:13 (procedure) [code = 025992998] Future Scheduled 2022-11-30 SHINGLES VACCINES (1 Met [facility] Hospital Test 08:08:13 of 2) [code = SHINGLES VACCINES (1 of 2)] Future Scheduled 2022-11-30 COLONOSCOPY SCREENING [facility] Test 08:08:13 [code = COLONOSCOPY SCREENING] Future Scheduled 2022-11-30 INFLUENZA VACCINE Method is Hospital Test 08:08:13 [code = INFLUENZA VACCINE] Future Scheduled 2022-11-30 COVID-19 VACCINE (5 - [facility] Test 08:08:13 Booster for Moderna series) [code = COVID-19 VACCINE (5 - Booster for Moderna series)] Future Scheduled 2022-11-16 Pneumococcal Vaccine: [facility] Test 08:53:45 Pediatrics (0 to 5 Years) and At-Risk Patients (6 to 64 Years) (1 - PCV) [code = Pneumococcal Vaccine: Pediatrics (0 to 5 Years) and At-Risk Patients (6 to 64 Years) (1 - PCV)] Future Scheduled 2022-11-16 Hepatitis C screening [facility] Test 08:53:45 (procedure) [code = [id number]] Future Scheduled 2022-11-16 SHINGLES VACCINES (1 Met [facility] Hospital Test 08:53:45 of 2) [code = SHINGLES VACCINES (1 of 2)] Future Scheduled 2022-11-16 COLONOSCOPY SCREENING [facility] Test 08:53:45 [code = COLONOSCOPY SCREENING] Future Scheduled 2022-11-16 INFLUENZA VACCINE Method ist Hospital Test 08:53:45 [code = INFLUENZA VACCINE] Future Scheduled 2022-11-16 COVID-19 VACCINE (5 - Me [facility] Hospital Test 08:53:45 Booster for Moderna series) [code = COVID-19 VACCINE (5 - Booster for Moderna series)] Future Scheduled 2022-09-26 Hepatitis C screening [facility] Test 23:54:04 (procedure) [code = [id number]] Future Scheduled 2022-09-26 COLONOSCOPY SCREENING [facility] Test 23:54:04 [code = COLONOSCOPY SCREENING] Future Scheduled 2022-09-26 SHINGLES VACCINES (1 Met [facility] Test 23:54:04 of 2) [code = SHINGLES VACCINES (1 of 2)] Future Scheduled 2022-09-26 INFLUENZA VACCINE Method [facility] Hospital Test 23:54:04 [code = INFLUENZA VACCINE] Future Scheduled 2022-09-26 COVID-19 VACCINE (5 - Me [facility] Test 23:54:04 Booster for Moderna series) [code = COVID-19 VACCINE (5 - Booster for Moderna series)] Future Scheduled 2022-09-26 Hepatitis C screening [facility] Test 23:54:04 (procedure) [code = 620655929] Future Scheduled 2022-09-26 COLONOSCOPY SCREENING [facility] Test 23:54:04 [code = COLONOSCOPY SCREENING] Future Scheduled 2022-09-26 SHINGLES VACCINES (1 Met [facility] Test 23:54:04 of 2) [code = SHINGLES VACCINES (1 of 2)] Future Scheduled 2022-09-26 INFLUENZA VACCINE Method [facility] Hospital Test 23:54:04 [code = INFLUENZA VACCINE] Future Scheduled 2022-09-26 COVID-19 VACCINE (5 - Me [facility] Test 23:54:04 Booster for Moderna series) [code = COVID-19 VACCINE (5 - Booster for Moderna series)] Future Scheduled 2022-08-26 HEPATITIS B VACCINES Met [facility] Test 02:17:57 (1 of 3 - 3-dose series) [code = HEPATITIS B VACCINES (1 of 3 - 3-dose series)] Future Scheduled 2022-08-26 Hepatitis C screening [facility] Test 02:17:57 (procedure) [code = [id number]] Future Scheduled 2022-08-26 COLONOSCOPY SCREENING [facility] Test 02:17:57 [code = COLONOSCOPY SCREENING] Future Scheduled 2022-08-26 SHINGLES VACCINES (1 Met [facility] Test 02:17:57 of 2) [code = SHINGLES [...] ID 2022-09-15 Inpatient Tarsha Butts [facility] RTX [id number] [facility] 00:08:00 00 [facility] 2022-02-13 Inpatient Tarsha Butts [facility] RTX [id number] [facility] 15:50:00 64 [facility] 2022-01-14 Inpatient Tarsha Butts [facility] RTX [id number] [facility] 16:09:00 81 [facility] 2022-11-23 2022-11-23 Travel 1.2.840.1 1.2.382.962 [id number] Methodi 00:00:00 00:00:[address] 3.430.2.7 0.2.7.3.698 Ho spita .3.729990 084.8 l .8 2022-10-25 2022-11-02 [facility] 1.2.840.1 [id number] Methodi 05:01:00 15:19:00 Encounter Nika Cowan [address]8621.1.[address] 3.430.2.7 Hospit a .3.688486 l .8 2022-10-25 2022-11-02 [facility] NIKA COWAN [facility] 064 [id number] [place] 00:00:00 00:00:00 Encounter [address] 2022-10-25 2022-10-25 Travel 1.2.840.1 1.2.211.368 [id number] Methodi 00:00:00 00:00:[address] 3.430.2.7 0.2.7.3.698 Ho spita .3.468439 084.8 l .8 2022-10-25 2022-10-25 Travel 1.2.840.1 1.2.995.267 1230 [id number] Methodi 00:00:00 00:00:[address] 3.430.2.7 0.2.7.3.698 Ho spita .3.579369 084.8 l .8 2022-09-01 2022-09-14 Outpatient EL Oh, Tarsha [facility] RTX [id number] [facility] 09:25:00 00:00:00 94 [facility] 2022-08-25 2022-08-25 Hospital Rox, 1.2.840.1 [id number] Methodi 08:26:09 23:59:00 Encounter Rhys 80773.1.[address] Jeremy 3.430.2.7 Hospit a .3.030524 l .8 2022-08-25 2022-08-25 Hospital Rox, 1.2.840.1 [id number] [id number] [facility]i 08:26:09 23:59:00 Encounter Rhys 51097.1.[address] Jeremy 3.430.2.7 Hospit a .3.630068 l .8 2022-04-25 2022-04-25 Outpatient EL Calderon, Tarsha [facility] [id number] [facility] 09:28:00 09:28:00 [id number] [facility] 2022-04-25 2022-04-25 Outpatient EL Oh, Tarsha [facility] RTX [id number] [facility] 09:28:00 09:28:00 74 [facility] 2022-01-14 2022-02-12 Outpatient EL Oh, Tarsha [facility] RTX [id number] [facility] 08:34:00 00:00:00 74 [facility] 2021-12-14 2022-01-13 Inpatient EL Tarsha Mancera [facility] RTX [id number] [facility] 14:32:00 00:00:00 52 [facility] 2021-12-27 2021-12-27 Inpatient EL Oh, Tarsha [facility] SUGL [id number] [facility] 10:30:00 09:30:00 05 [facility] 2021-12-21 2021-12-21 Outpatient EL OhTarshaWU SUGL [id number] [facility] 09:11:00 09:11:00 36 [facility] 2021-10-18 2021-11-15 Inpatient EL OhTarshaWU RTX [id number] [facility] 11:23:00 00:00:00 91 [facility] 2021-09-02 2021-09-14 Outpatient EL Oh, Tarsha CLARKEWU RTX [id number] [facility] 10:13:00 00:00:00 86 [facility] 2021-09-08 2021-09-08 Outpatient EL OhTarsha SUGL [id number] [facility] 08:46:00 08:46:00 74 [facility] 2021-08-06 2021-08-06 Outpatient LEANDRO HOLT [facility] [id number] [place] 00:00:00 00:00:00 871 Method i 2021-08-04 2021-08-04 Outpatient LEANDRO HOLT [facility] [id number] [place] 00:00:00 00:00:00 776 Method i 2021-08-01 2021-08-03 Outpatient [facility] 065 [id number] [place] 00:00:00 00:00:00 JENNY 205 Method i 2021-07-23 2021-07-23 Outpatient LEANDRO HOLT [facility] [id number] [place] 00:00:00 00:00:00 991 Method i 2021-07-23 2021-07-23 Outpatient LEANDRO HOLT [facility] [id number] [place] 00:00:00 00:00:00 041 Method i 2021-07-21 2021-07-21 Outpatient LEANDRO HOLT [facility] [id number] [place] 00:00:00 00:00:00 901 Method i 2021-07-21 2021-07-21 Outpatient LEANDRO HOLT [facility] [id number] [place] 00:00:00 00:00:00 867 Method i 2021-06-28 2021-07-06 Inpatient NIKA COWAN [facility] 078 [id number] [place] 00:00:00 00:00:00 942 Method i 2021-06-02 2021-06-02 Outpatient JONATHAN COVINGTON [facility] [id number] [place] 00:00:00 00:00:[address] 2021-04-26 2021-04-26 Emergency X [facility] ERT [id number] [facility] 16:39[facility]00 [facility]39[facility]00 [facility] Results Test Description Test Time Test Comments Results Result Comments Source SARS-CoV-2 (COVID-19) RNA [Presence] in Respiratory sp ecimen by 2022-10-26 11:43:33 YVROSE with probe detection Test Item Value Reference Range Interpretation Comme nts SARS-CoV-2 (COVID-19) RNA [Presence] in Respiratory specimen by Not detected YVROSE with probe detection (test code = 64001-5) Whether patient is employed in a healthcare setting (test code = Un known 41592-8) Whether the patient has symptoms related to condition of interest U nknown (test code = 78167-7) Whether the patient was hospitalized for condition of interest Unkn own (test code = 25284-6) Whether the patient was admitted to intensive care unit (ICU) for U nknown condition of interest (test code = 33993-3) Whether patient resides in a congregate care setting (test code = U nknown 90365-1) status (test code = 09279-4) Unknown Date and time of symptom onset (test code = 52074-9) Unknown [facility] [id number] 18:02:00 Test Item Value Reference Range Interpretation Comments Urine culture (test SEE COMMENT Bacteriu rony screen code = 4636703) negative. [facility] [id number] 18:02:00 Test Item Value Reference Range Interpretation Comments Urine culture (test SEE COMMENT Bacteriu rony screen code = 2241132) negative. [facility]- PET/CT TUMOR SK [id number] 14:28:00 [facility] 1965 Sex: M Patient Name: GENO PRASAD Unit No: [id number] EXAMS: CPT CODE: [id number] PET/CT TUMOR SK BS MIDTH 23505 EXAMINATION: - PET/CT TUMOR SK BS MIDTH COMPARISON: PET/CT performed September 08, 2021 INDICATION: Restaging of rectal carcinoma CLINICAL HISTORY: 56-year-old male patient with a history of rectal carcinoma. He has undergone chemotherapy and radiation, and has recently undergone surgery LOCATION CODE: C3 TECHNIQUE: Following the IV administration of 10.65 mCi of F- 18 labeled FDG, imaging of the body was [...] All CT scans are performed using dose optimiza tion techniques as appropriate to a performed exam [...] in the midline abdominal wall. Bilateral abdominal ostomiesare noted. A surgical drain remains present in the lower abdomen and there is increased uptake alongthe course of the drain of up to 5.7. Whether this represents reactive uptake to the placement of the drain are uptake in the more proximal sigmoid colon is unclear, as the drain follows the course of the [facility] NAME: GENO PRASAD [address] [facility] [address] PHYS: [place] [address] : 1965 AGE: 56 SEX: M LOC: DayronZNUC PHONE #: [phone] EXAM DATE: 12/21/2021 STATUS: REG CLI FAX #: [phone] RADIOLOGY NO: PAGE 1 Signed Report (CONTINUED) Patient Name: GENO PRASAD Unit No: [id number] EXAMS: CPT CODE: [id number] PET/CT TUMOR SK BS MIDTH 99788 <Continued> sigmoid colon. Uptake in the more proximal sigmoid colon of up to 6.8 was seen on the prior exam. There is continued thickening abnormal uptake in the rectum.Area of uptake measures approximately 5.2 x 2.8 cm with uptake values up to 7.2 (previously 4.7 x 2.4 cm when remeasured in a similar manner with an uptake of 6.5). However, exact comparison is difficult given the changes related to the recent surgery. Scattered areas of nonspecific uptake are seen inthe more proximal bowel MUSCULOSKELETAL SYSTEM: Areas of [...] disease identified Other findings as above at 3649 Reported and signed by: Gregoria Reynolds MD CC: Tarsha Mancera MD Technologist: Alessia Bradshaw, RT(M)(CT); Linnea Vasquez RT(N) Transcrpt Date/Tm/Trnsp: 12/21/2021 (0949) [email or web address] Orig Print D/T: S: 12/21/2021 (0392) [facility] NAME: GENO PRASAD [address] [facility] [address] PHYS: [place] [address] : [birth year] AGE: 56 SEX: M LOC: EMILYUC PHONE #: [phone] EXAM DATE: 12/21/2021 STATUS: REG CLI FAX #: [phone] RADIOLOGY NO: PAGE 2 Signed [id number] 09:50:00 Test Item Value Reference Range Interpretation Comments GLUCOSE (test code = GLU) 98 MG/DL 79-105 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 N- PET[id number] 13:41:00 [facility] : 1965 Sex: M Patient Name: GEON PRAASD Unit No: [id number] EXAMS: CPT CODE: [id number] PET/CT TUMOR [facility] [address] EXAM: PET/CT scan INDICATION: MALIGNANT NEOPLASM OF RECTUM COMPARISON: None at this time LOCATION: [facility] TECHNIQUE: Approximately 60 minutes following the intravenous [...] spine without and with contrast is recommended. [facility] NAME: GENO PRASAD [address] [address] PHYS: [place] [address] : 1965 AGE: 56 SEX: M LOC: Z.ZNUC PHONE #: [phone] EXAM DATE: 09/08/2021 STATUS: DEP CLI FAX #: [phone] RADIOLOGY NO: PAGE 1 Signed Report (CONTINUED) Patient Name: GENO PRASAD Unit No: [id number] EXAMS: CPT CODE: [id number] PET/CT TUMOR SK MIDTH 94240 <Continued> There are small lymph nodes in the right axilla, measuring less than a centimeter in mean diameter each, demonstrating minimal hypermetabolic activity, with a maximum SUV of 1.4. These appear to most likely represent benign reactive lymph nodes. Otherwise unremarkable PET/CT scan. at 1341 Reported and signed by: Beau Marr MD CC: Shasha Mancera MD Technologist: Linnea Vasquez RT(N) Transcrpt Date/Tm/Trnsp: 09/10/2021 (868) [email or web address] Orig Print D/T: S: 09/10/2021 (0216) [facility] NAME: GENO PRASAD [address] [address] PHYS: [place] [address] : 1965 AGE: 56 SEX: M LOC: HANNAH PHONE #: [phone] EXAM DATE: 09/08/2021 STATUS: DEP CLI FAX #: [phone] RADIOLOGY NO: PAGE 2 Signed [id number] 09:44:00 Test Item Value Reference Range Interpretation Comments GLUCOSE (test code = GLU) 86 MG/DL 79-105 N SARS-CoV-2 (COVID-19) RNA [Presence] in Respiratory specimen by YVROSE with probe [id number] 18:54:41 Test Item Value Reference Range Interpretation Comments SARS-CoV-2 (COVID-19) RNA Not detected Not-Detected [Presence] in Respiratory specimen by YVROSE with probe detection (test code = 03872-0) Whether patient is employed in a healthcare setting (test code = 76944-0) Whether the patient has symptoms related to condition of interest (test code = 14207-3) Patient was hospitalized because of this condition (test code = 44434-1) Whether the patient was admitted to intensive care unit (ICU) for condition of interest (test code = 78516-7) Whether patient resides in a congregate care setting (test code = 22033-9) status (test code = 67013-3) BERNARDO SIMPSONRS-CoV-2 (COVID-19) RNA [Presence] in Respiratory specimen by YVROSE with probe [id number] 16:30:19 Test Item Value Reference Range Interpretation Comments SARS-CoV-2 (COVID-19) RNA Not detected Not-Detected [Presence] in Respiratory specimen by YVROSE with probe detection (test code = 71628-2) Whether patient is employed in a healthcare setting (test code = 23072-7) Whether the patient has symptoms related to condition of interest (test code = 38367-7) Patient was hospitalized because of this condition (test code = 48017-8) Whether the patient was admitted to intensive care unit (ICU) for condition of interest (test code = 66140-3) Whether patient resides in a congregate care setting (test code = 15264-7) BERNARDO WAITE
[2022-11-30 09:10] LABS: Urine Blood 1+ (Negative); Urine Glucose Trace (Negative); Urine Protein 3+ (Negative)
[2022-11-30] MEDS ORDERED: KETOROLAC 30 MG/ML INJ ONE (09:15)
--- NOTE | 2022-11-30 09:42 | ER ---
Nurse's Notes [facility] Name: Edwin Young Age: 57 yrs Sex: Male : 1965 Arrival Date: 11/30/2022 Time: 08:11 Bed 23 Private MD: Diagnosis: Proteinuria, unspecified Presentation: 11/30 08:48 Chief complaint: Patient states: he feels like he can't empty his bladder and is in a ap3 lot of pain, and feels a lot of pressure like his bladder is really full. Coronavirus screen: At this time, the client does not indicate any symptoms associated with coronavirus-19. Ebola Screen: No symptoms or risks identified at this time. Initial Sepsis Screen: Does the patient meet any 2 criteria? HR > 90 bpm. Does the patient have a suspected source of infection? No. Patient's initial sepsis screen is negative. Risk Assessment: Do you want to hurt yourself or someone else? Patient reports no desire to harm self or others. Onset of symptoms was November 29, 2022. 08:48 Method Of Arrival: Ambulatory ap3 08:48 Acuity: JASWINDER 3 ap3 Triage Assessment: 08:51 General: Appears uncomfortable, Behavior is restless. Pain: Complains of pain in ap3 suprapubic area. Neuro: Level of Consciousness is awake, alert, obeys commands, Oriented to person, place, time, situation. Cardiovascular: Patient's skin is warm and dry. Respiratory: Airway is patent Respiratory effort is even, unlabored. : Reports inability to void. Historical: - Allergies: 08:50 No Known Allergies; ap3 - PMHx: 08:50 CHF; colon cancer; Gout; Hypertension; Chemo; ap3 - Immunization history:: Client reports having NOT received the Covid vaccine. Flu vaccine is not up to date. - Social history:: Smoking status: Patient denies any tobacco usage or history of. Screenin:51 Abuse screen: Denies threats or abuse. Nutritional screening: No deficits noted. ap3 Tuberculosis screening: No symptoms or risk factors identified. 09:56 [facility] ED Fall Risk Assessment (Adult) History of falling in the last 3 months, bp including since admission No falls in past 3 months (0 pts). Assessment: 08:50 General: SEE TRIAGE NOTE. bp 09:34 Reassessment: VS STABLE. Patient states symptoms have improved. bp 09:56 Reassessment: DC HOME AMBULATORY. bp Vital Signs: 08:48 BP 172 / 117; Pulse 118; Resp 19; Temp 98.8; Pulse Ox 99% ; Weight 108.86 kg; Height 6 ap3 ft. 2 in. (187.96 cm); Pain 10/10; 09:34 BP 120 / 63; Pulse 90; Resp 16; Pulse Ox 97% ; bp 08:48 Body Mass Index 30.81 (108.86 kg, 187.96 cm) ap3 ED Course: 08:11 Patient arrived in ED. rg4 08:20 Trevor Daniel MD is Attending Physician. bs3 08:50 Triage completed. ap3 08:51 Arm band placed on left wrist. ap3 08:51 Patient has correct armband on for positive identification. Bed in low position. Call bp light in reach. Side rails up X 1. 09:02 Henry Harris, RN is Primary Nurse. bp 09:57 No provider procedures requiring assistance completed. Patient did not have IV access bp during this emergency room visit. Administered Medications: 09:16 Drug: Ketorolac 30 mg Route: IM; Site: left deltoid; bp 09:57 Follow up: Response: No adverse reaction bp Medication: 09:56 VIS not applicable for this client. bp Outcome: 09:41 Discharge ordered by . bs3 09:57 Discharged to home ambulatory. bp 09:57 Condition: stable 09:57 Discharge instructions given to patient, Instructed on discharge instructions, follow up and referral plans. Demonstrated understanding of instructions, follow-up care. 09:57 Patient left the ED. bp Signatures: Sidra Mccarthy rg4 Henry Harris, TJ RN bp Libertad Rodriguez RN RN ap3 Trevor Daniel MD MD bs3 Corrections: (The following items were deleted from the chart) 08:51 08:50 PMHx: Chemotherapy (last one was August,); ap3 ap3
--- NOTE | 2022-11-30 09:42 | EDPHYS ---
Physician Documentation [facility] Name: Edwin Young Age: 57 yrs Sex: Male : 1965 Arrival Date: 11/30/2022 Time: 08:11 Bed 23 Private MD: ED Physician Trevor Daniel HPI: 11/30 09:36 This 57 yrs old Black Male presents to ER via Ambulatory with complaints of Abdominal bs3 Pain, Urinary Frequency, Rectal Pain. 09:37 hx of colon ca sp ostomy presents with urinary discomfort, increased frequency that bs3 started last night. no fever, or chills, no difficulty rbeathing, no abdominal pain. He hasn't taken anything. He notes chronic abdominal pain but it is not worse today he followed up with his surgeon 2 weeks ago and was seen here 2 weeks ago for abdominal pain but he notes his pain is significantly improved. Historical: - Allergies: 08:50 No Known Allergies; ap3 - PMHx: 08:50 CHF; colon cancer; Gout; Hypertension; Chemo; ap3 - Immunization history:: Client reports having NOT received the Covid vaccine. Flu vaccine is not up to date. - Social history:: Smoking status: Patient denies any tobacco usage or history of. ROS: 09:37 Constitutional: Negative for fever, chills bs3 09:37 All other systems are negative. Exam: 09:37 Constitutional: This is a well developed, well nourished patient who is awake, alert, bs3 and in no acute distress. Head/Face: Normocephalic, atraumatic. Eyes: Pupils equal round and reactive to light, extra-ocular motions intact. Lids and lashes normal. Chest/axilla: Normal chest wall appearance and motion. Nontender with no deformity. No lesions are appreciated. Cardiovascular: Regular rate and rhythm with a normal S1 and S2. symmetric pulses in upper extremities Respiratory: Lungs have equal breath sounds bilaterally, clear to auscultation, no respiratory distress Abdomen/GI: He has 2 stomas that are pink and normal he has brown stool in his right upper quadrant ostomy bag his left lower quadrant ostomy bag is normal Male : Normal genitalia with no discharge or lesions. Skin: Warm, dry with normal turgor. Normal color with no rashes, no lesions, and no evidence of cellulitis. MS/ Extremity: Pulses equal, no cyanosis. Neurovascular intact. Full, normal range of motion. Vital Signs: 08:48 BP 172 / 117; Pulse 118; Resp 19; Temp 98.8; Pulse Ox 99% ; Weight 108.86 kg; Height 6 ap3 ft. 2 in. (187.96 cm); Pain 10/10; 09:34 BP 120 / 63; Pulse 90; Resp 16; Pulse Ox 97% ; bp 08:48 Body Mass Index 30.81 (108.86 kg, 187.96 cm) ap3 MDM: 08:19 Patient medically screened. bs3 09:37 Differential diagnosis: possible uti, conidered abscess, considered intraabominal bs3 pathology, but no pain on abd exam. Data reviewed: vital signs, nurses notes. 11/30 09:10 Order name: Urine Dipstick-Ancillary; Complete Time: 09:15 EDMS 11/30 08:37 Order name: Urine Dipstick-Ancillary (obtain specimen); Complete Time: 09:16 bs3 Administered Medications: 09:16 Drug: Ketorolac 30 mg Route: IM; Site: left deltoid; bp 09:57 Follow up: Response: No adverse reaction bp Disposition Summary: 11/30/22 09:41 Discharge Ordered Location: Home bs3 Problem: new bs3 Symptoms: are unchanged bs3 Condition: Stable bs3 Diagnosis - Proteinuria, unspecified bs3 Followup: bs3 - With: Private Physician - When: 48 Hours - Reason: Re-evaluation by your physician Forms: - Medication Reconciliation Form bs3 - Thank You Letter bs3 - Antibiotic Education bs3 - Prescription Opioid Use bs3 Signatures: Henry Harris RN RN bp Libertad Rodriguez RN RN ap3 Trevor Daniel MD MD bs3 Corrections: (The following items were deleted from the chart) 08:51 08:50 PMHx: Chemotherapy (last one was August,); ap3 ap3
[2022-11-30 10:02] VITALS: TEMP 98.8
[2022-11-30 10:03] VITALS: BP 120/63; O2SAT 97
== END 2022-11-30 09:57 | disposition home or self-care (01) ==
LOC: ER 08:04
DX: R80.9 Proteinuria, unspecified (principal); Z85.038 Personal history of other malignant neoplasm of large intestine
CPT/HCPCS: 81003

== ENCOUNTER 2022-12-08 20:53 | Emergency (ER) | payer OTHER ==
--- OUTSIDE RECORDS SUMMARY | 2022-12-08 20:56 | XMS REPORT | Continuity of Care Document ---
:1965 Author Organization [facility] t Address [address] [place] [address] Care Team Providers Name Role Phone Asked, No Pcp Primary Care Physician Unavailable Tarsha Mancera Attending Clinician Unavailable LesterreParviz childress DO Attending Clinician Nika Cowan MD Attending Clinician Rhys Gramajo MD Attending Clinician [phone] LEANDRO HOLT Attending Clinician Unavailable JENNY [...] 2020-10 [facility] Allergie 11-08 [place] 00:00: [address] NO KNOWN Drug Active Univers ALLERGIE Class it[facility] of S [facility] Social History Social Habit Start Date Stop Date Quantity Comments Source History [facility] Drinks History [facility] Tobacco use and 2021-08-01 2021-08-01 Smokeless tobacco [facility] exposure 00:00:00 00:00:00 non-user Hospital Alcohol intake 2021-08-01 2021-08-01 Lifetime [facility] 00:00:00 00:00:00 non-drinker Hospital (finding) History [facility] 2021-08-01 2021-08-01 1 [facility] Alcohol Frequency 00:00:00 00:00:00 Hospita l Sex Assigned At [birth year] [facility] 00:00:[facility] 00:00:00 Hospital Smoking Status Start Date Stop Date Source Never smoked tobacco [facility] Medications Ordered Filled Start Stop [...] caity 03 by mouth l daily. carvedilol No 20mg Q.5D Take 1 Meth cordelia CR (COREG 1-19 01-[address] CR) 20 MG 15:19: 00:00 (20 mg Hospi ta 24 hr 03 :00 total) by l capsule mouth 2 (two) times a day. carvedilol 2022- No 20mg Q.5D Take 1 Meth cordelia CR (COREG 111-[address] CR) 20 MG 15:19: 00:00 (20 mg Hospi ta 24 hr 03 :00 total) by l capsule mouth 2 (two) times a day. carvedilol 2022- No 20mg Q.5D Take 1 Meth cordelia CR (COREG 111-[address] CR) 20 MG 15:19: 00:00 [...] 12.5mg Q.5D Take 1 Me thodi (COREG) 11-02- tablet st 12.5 MG 00:00: 05:59 (12.5 mg Hospi ta tablet 00 :00 total) by l mouth 2 (two) times a day for 30 days. carvediloL 2022- No 12.5mg Q.5D Take 1 Me thodi (COREG) 11-[address] 12.5 MG 00:00: 05:59 (12.5 [...] Source Systolic blood 2022-11-02 13:50:01 147 mm[Hg] [facility] pressure Diastolic blood 2022-11-02 13:50:01 87 mm[Hg] [facility] pressure Heart rate 2022-11-02 13:50:01 90 /min [facility] Body temperature 2022-11-02 13:50:01 36 Mary Carmen [facility] Respiratory rate 2022-11-02 13:50:01 18 /min [facility] Oxygen saturation in 2022-11-02 13:50:01 99 /min [facility] Arterial blood by Pulse oximetry Body height 2022-10-25 11:00:00 188 cm [facility] Body weight 2022-10-25 11:00:00 113.399 kg [facility] BMI 2022-10-25 11:00:00 32.10 kg/m2 [facility] Procedures Procedure Date / Time Performing Clinician Source Performed CBC WITH PLATELET AND 2022-11-02 11:12:00 Camryn [facility] DIFFERENTIAL BASIC METABOLIC PANEL 2022-11-02 11:12:00 Camryn [facility] ESTIMATED GFR 2022-11-02 11:12:00 Nika Cowan spital CBC WITH PLATELET AND 2022-11-01 11:35:00 Camryn [facility] DIFFERENTIAL BASIC METABOLIC PANEL 2022-11-01 11:35:00 Camryn [facility] ESTIMATED GFR 2022-11-01 11:35:00 Nika Cowan Ho spital PROTEIN, URINE, RANDOM 2022-10-31 19:03:00 [facility] ALBUMIN WITH CREATININE AND 2022-10-31 19:03:00 [facility] RATIO, RANDOM URINE CREATININE LEVEL, URINE, 2022-10-31 19:03:00 [facility] RANDOM CBC WITH PLATELET AND 2022-10-31 12:10:00 [facility] DIFFERENTIAL BASIC METABOLIC PANEL 2022-10-31 12:10:00 [facility] 2022-10-31 12:10:00 Camryn [facility] Ho spital CBC WITH PLATELET AND 2022-10-30 11:30:00 [facility] DIFFERENTIAL BASIC METABOLIC PANEL 2022-10-30 11:30:00 [facility] 2022-10-30 11:30:00 Camryn greer [facility] Ho spital CBC WITH PLATELET AND 2022-10-29 11:45:00 [facility] DIFFERENTIAL BASIC METABOLIC PANEL 2022-10-29 11:30:00 [facility]FR 2022-10-29 11:30:00 Camryn [facility] Ho spital IR LEFT NEPHROSTOMY INITIAL 2022-10-28 23:27:00 Samir Saha [facility] RIGHT NEPHROSTOGRAM NEW 2022-10-28 23:27:00 Samir Saha [facility] ACCESS CBC WITH PLATELET AND 2022-10-28 11:29:00 [facility] DIFFERENTIAL COMPREHENSIVE METABOLIC 2022-10-28 11:29:00 [facility] GFR 2022-10-28 11:29:00 Camryn greer [facility] Ho spital CBC WITH PLATELET AND 2022-10-27 12:38:00 [facility] DIFFERENTIAL COMPREHENSIVE METABOLIC 2022-10-27 12:38:00 [facility] PANEL BASIC METABOLIC PANEL 2022-10-27 12:38:00 [facility] ESTIMATED GFR 2022-10-27 12:38:00 [facility] PELVIS W WO CONTRAST 2022-10-26 16:51:00 chen [facility] MRI ABDOMEN W WO CONTRAST 2022-10-26 16:40:00 chen [facility] COVID-19 QUALITATIVE RT-PCR 2022-10-26 13:42:00 Rehrer, [facility] CBC WITH PLATELET AND 2022-10-26 09:30:00 [facility] DIFFERENTIAL COMPREHENSIVE METABOLIC 2022-10-26 09:30:00 [facility] PANEL PHOSPHORUS LEVEL 2022-10-26 09:30:[address] [facility] CARCINOEMBRYONIC ANTIGEN 2022-10-26 09:30:00 chen [facility] ([facility]) FERRITIN LEVEL 2022-10-26 09:30:00 [facility] Ho spital PROTHROMBIN TIME WITH INR 2022-10-26 09:30:00 [facility] 2022-10-26 09:30:00 Camryn [facility] spital CT CHEST WO CONTRAST 2022-10-25 23[facility] 2022-10-25 17:30:04 [facility] URINALYSIS SCREEN AND 2022-10-25 17:01:[address] [facility] MICROSCOPY, WITH REFLEX TO CULTURE SODIUM LEVEL, URINE, RANDOM 2022-10-25 17:01:00 [facility] CHLORIDE LEVEL, URINE, 2022-10-25 17:01:00 [facility] RANDOM CREATININE LEVEL, URINE, 2022-10-25 17:01:00 [facility] RANDOM URINE CULTURE 2022-10-25 16:55:00 [facility] CT ABDOMEN PELVIS WO 2022-10-25 14:31:42 Rehrer, [facility] CONTRAST CBC WITH PLATELET AND 2022-10-25 12:41:00 Rehrer, [facility] DIFFERENTIAL COMPREHENSIVE METABOLIC 2022-10-25 12:41:00 Rehrer, [facility] PANEL LIPASE LEVEL 2022-10-25 12:41:00 Rehrer, [facility] URINALYSIS SCREEN AND 2022-10-25 12:41:00 Rehrer, [facility] MICROSCOPY, WITH REFLEX TO CULTURE LACTIC ACID LEVEL 2022-10-25 12:41:00 Rehrer, [facility] ESTIMATED GFR 2022-10-25 12:41:00 Amador Beatty jill [facility]. URINE CULTURE 2022-10-25 12:30:00 Rehrer, [facility] CT CHEST EXTERNAL STUDY 2022-08-16 16:25:00 Rhsy Gramajo [facility] Plan of Care Planned Activity Planned Date Details Comments Source Future Scheduled 2022-12-06 Pneumococcal Vaccine: [facility] Test 08:31:10 Pediatrics (0 to 5 Years) and At-Risk Patients (6 to 64 Years) (1 - PCV) [code = Pneumococcal Vaccine: Pediatrics (0 to 5 Years) and At-Risk Patients (6 to 64 Years) (1 - PCV)] Future Scheduled 2022-12-06 Hepatitis C screening [facility] Test 08:31:10 (procedure) [code = 384125176] Future Scheduled 2022-12-06 SHINGLES VACCINES (1 [facility] Test 08:31:10 of 2) [code = SHINGLES VACCINES (1 of 2)] Future Scheduled 2022-12-06 COLONOSCOPY SCREENING [facility] Test 08:31:10 [code = COLONOSCOPY SCREENING] Future Scheduled 2022-12-06 INFLUENZA VACCINE Method [facility] Test 08:31:10 [code = INFLUENZA VACCINE] Future Scheduled 2022-12-06 COVID-19 VACCINE (5 - [facility] Test 08:31:10 Booster for Moderna series) [code = COVID-19 VACCINE (5 - Booster for Moderna series)] Future Scheduled 2022-11-30 Pneumococcal Vaccine: [facility] Test 08:08:13 Pediatrics (0 to 5 Years) and At-Risk Patients (6 to 64 Years) (1 - PCV) [code = Pneumococcal Vaccine: Pediatrics (0 to 5 Years) and At-Risk Patients (6 to 64 Years) (1 - PCV)] Future Scheduled 2022-11-30 Hepatitis C screening [facility] Test 08:08:13 (procedure) [code = 219589417] Future Scheduled 2022-11-30 SHINGLES VACCINES (1 Met [facility] Test 08:08:13 of 2) [code = SHINGLES VACCINES (1 of 2)] Future Scheduled 2022-11-30 COLONOSCOPY SCREENING [facility] Test 08:08:13 [code = COLONOSCOPY SCREENING] Future Scheduled 2022-11-30 INFLUENZA VACCINE [facility] Test 08:08:13 [code = INFLUENZA VACCINE] Future Scheduled 2022-11-30 COVID-19 VACCINE (5 - [facility] Test 08:08:13 Booster for Moderna series) [code = COVID-19 VACCINE (5 - Booster for Moderna series)] Future Scheduled 2022-11-16 Pneumococcal Vaccine: [facility] Test 08:53:45 Pediatrics (0 to 5 Years) and At-Risk Patients (6 to 64 Years) (1 - PCV) [code = Pneumococcal Vaccine: Pediatrics (0 to 5 Years) and At-Risk Patients (6 to 64 Years) (1 - PCV)] Future Scheduled 2022-11-16 Hepatitis C screening [facility] Test 08:53:45 (procedure) [code = 707394505] Future Scheduled 2022-11-16 SHINGLES VACCINES (1 Met [facility] Test 08:53:45 of 2) [code = SHINGLES VACCINES (1 of 2)] Future Scheduled 2022-11-16 COLONOSCOPY SCREENING [facility] Test 08:53:45 [code = COLONOSCOPY SCREENING] Future Scheduled 2022-11-16 INFLUENZA VACCINE Method [facility] Hospital Test 08:53:45 [code = INFLUENZA VACCINE] Future Scheduled 2022-11-16 COVID-19 VACCINE (5 - [facility] Test 08:53:45 Booster for Moderna series) [code = COVID-19 VACCINE (5 - Booster for Moderna series)] Future Scheduled 2022-09-26 Hepatitis C screening [facility] Test 23:54:04 (procedure) [code = 817829331] Future Scheduled 2022-09-26 COLONOSCOPY SCREENING [facility] Test 23:54:04 [code = COLONOSCOPY SCREENING] Future Scheduled 2022-09-26 SHINGLES VACCINES (1 [facility] Test 23:54:04 of 2) [code = SHINGLES VACCINES (1 of 2)] Future Scheduled 2022-09-26 INFLUENZA VACCINE Method [facility] Test 23:54:04 [code = INFLUENZA VACCINE] Future Scheduled 2022-09-26 COVID-19 VACCINE (5 - Me [facility] Test 23:54:04 Booster for Moderna series) [code = COVID-19 VACCINE (5 - Booster for Moderna series)] Future Scheduled 2022-09-26 Hepatitis C screening [facility] Test 23:54:04 (procedure) [code = [id number]] Future Scheduled 2022-09-26 COLONOSCOPY SCREENING [facility] Test 23:54:04 [code = COLONOSCOPY SCREENING] Future Scheduled 2022-09-26 SHINGLES VACCINES (1 [facility] Test 23:54:04 of 2) [code = SHINGLES VACCINES (1 of 2)] Future Scheduled 2022-09-26 INFLUENZA VACCINE Method [facility] Test 23:54:04 [code = INFLUENZA VACCINE] Future Scheduled 2022-09-26 COVID-19 VACCINE (5 - [facility] Test 23:54:04 Booster for Moderna series) [code = COVID-19 VACCINE (5 - Booster for Moderna series)] Future Scheduled 2022-08-26 HEPATITIS B VACCINES Met [facility] Test 02:17:57 (1 of 3 - 3-dose series) [code = HEPATITIS B VACCINES (1 of 3 - 3-dose series)] Future Scheduled 2022-08-26 Hepatitis C screening [facility] Test 02:17:57 (procedure) [code = 153387132] Future Scheduled 2022-08-26 COLONOSCOPY SCREENING [facility] Test 02:17:57 [code = COLONOSCOPY SCREENING] Future Scheduled 2022-08-26 SHINGLES VACCINES (1 [facility] Test 02:17:57 of 2) [code = SHINGLES VACCINES (1 of 2)] Future Scheduled 2022-08-26 INFLUENZA VACCINE Method [facility] Test 02:17:57 [code = INFLUENZA VACCINE] Future Scheduled 2022-08-26 COVID-19 VACCINE (5 - Me [facility] Test 02:17:57 Booster for Moderna series) [code = COVID-19 VACCINE (5 - Booster for Moderna series)] Encounters Start End Encounter Admission Attending Care Care Encounter Source Date/Time Date/Time Type Type Clinicians Facility Department ID 2022-09-15 Inpatient Tarsha Butts [facility] RTX [id number] [facility] 00:[facility] [facility] 2022-02-13 Inpatient Tarsha Butts [facility] RTX [id number] [facility] 15:50:[address] [facility] 2022-01-14 Inpatient Tarsha Butts [facility] RTX [id number] [facility] 16:09:[address] [facility] 2022-11-23 2022-11-23 Travel 1.2.840.1 1.2.618.704 [id number] Methodi 00:00:00 00:00:[address] 3.430.2.7 0.2.7.3.698 Ho spita .3.789828 084.8 l .8 2022-11-23 2022-11-23 Travel 1.2.840.1 1.2.684.191 [id number] Methodi 00:00:00 00:00:[address] 3.430.2.7 0.2.7.3.698 Ho spita .3.728864 084.8 l .8 2022-10-25 2022-11-02 [facility] Charlie 1.2.840.1 [id number] Methodi 05:01:00 15:19:00 Encounter Nika Cowan 38392.1.[address] 3.430.2.7 Hospit a .3.614867 l .8 2022-10-25 2022-11-02 [facility] CAMRYN [facility] 064 [id number] [place] 00:00:00 00:00:00 Encounter [address] 2022-10-25 2022-10-25 Travel 1.2.840.1 1.2.161.438 [id number] Methodi 00:00:00 00:00:[address] 3.430.2.7 0.2.7.3.698 Ho spita .3.207331 084.8 l .8 2022-10-25 2022-10-25 Travel 1.2.840.1 1.2.880.481 [id number] Methodi 00:00:00 00:00:[address] 3.430.2.7 0.2.7.3.698 Ho spita .3.837251 084.8 l .8 2022-09-01 2022-09-14 Outpatient Tarsha ButtsShaylaU RTX [id number] [facility] 09:25:00 00:00:[address] [facility] 2022-08-25 2022-08-25 Hospital Rox, 1.2.840.1 [id number] Methodi 08:26:09 23:59:00 Encounter Rhys 37859.1.[address] Jeremy 3.430.2.7 Hospit a .3.099480 l .8 2022-08-25 2022-08-25 Hospital Rox, 1.2.840.1 [id number] Methodi 08:26:09 23:59:00 Encounter Rhys 24290.1.[address] Jeremy 3.430.2.7 Hospit a .3.344963 l .8 2022-04-25 2022-04-25 Outpatient Tarsha ButtsShaylaU [facility] [id number] [facility] 09:28:00 09:28:[id number] [facility] 2022-04-25 2022-04-25 Outpatient Tarsha ButtsShaylaU RTX [id number] [facility] 09:28:00 09:28:[address] [facility] 2022-01-14 2022-02-12 Outpatient Tarsha ButtsShaylaU RTX [id number] [facility] 08:34:00 00:00:[address] [facility] 2021-12-14 2022-01-13 Inpatient EL Oh, Tarsha [facility] RTX [id number] [facility] 14:32:00 00:00:[address] [facility] 2021-12-27 2021-12-27 Inpatient EL Oh, Tarsha CLARKEWU SUGL [id number] [facility] 10:30:00 09:30:[address] [facility] 2021-12-21 2021-12-21 Outpatient EL Oh, Tarsha CLARKEWU SUGL [id number] [facility] 09:11:00 09:11:[address] [facility] 2021-10-18 2021-11-15 Inpatient EL Oh, Tarsha [facility] RTX [id number] [facility] 11:23:00 00:00:[address] [facility] 2021-09-02 2021-09-14 Outpatient EL Oh, Tarsha CLARKEWU RTX [id number] [facility] 10:13:00 00:00:[address] [facility] 2021-09-08 2021-09-08 Outpatient EL Oh, Tarsha CLARKEWU SUGL [id number] [facility] 08:46:00 08:46:[address] [facility] 2021-08-06 2021-08-06 Outpatient LEANDRO HOLT [facility] [id number] [place] 00:00:00 00:00:00 871 Method i 2021-08-04 2021-08-04 Outpatient LEANDRO HOLT [facility] [id number] [place] 00:00:00 00:00:00 776 Method i 2021-08-01 2021-08-03 Outpatient LAILA, [facility] [id number] [place] 00:00:00 00:00:00 JENNY [address] 2021-07-23 2021-07-23 Outpatient LEANDRO HOLT [facility] [id number] [place] 00:00:00 00:00:[address] 2021-07-23 2021-07-23 Outpatient DALECHENLEANDRO [facility] [id number] [place] 00:00:00 00:00:[address] 2021-07-21 2021-07-21 Outpatient JONATHONLEANDRO [facility] [id number] [place] 00:00:00 00:00:[address] 2021-07-21 2021-07-21 Outpatient LEANDRO HOLT [facility] [id number] [place] 00:00:00 00:00:00 867 Method i 2021-06-28 2021-07-06 Inpatient NIKA COWAN [facility] 078 [id number] [place] 00:00:00 00:00:00 942 Method i 2021-06-02 2021-06-02 Outpatient JONATHAN COVINGTON [facility] [id number] [place] 00:00:00 00:00:00 065 Method i 2021-04-26 2021-04-26 Emergency X [facility] ERT [id number] Univers 16:39:00 16:39:00 [facility] Results Test Description Test Time Test Comments Results Result Comments Source SARS-CoV-2 (COVID-19) RNA [Presence] in Respiratory sp ecimen by 2022-10-26 11:43:33 YVROSE with probe detection Test Item Value Reference Range Interpretation Comme nts SARS-CoV-2 (COVID-19) RNA [Presence] in Respiratory specimen by Not detected YVROSE with probe detection (test code = 72459-5) Whether patient is employed in a healthcare setting (test code = Un known 42917-8) Whether the patient has symptoms related to condition of interest U nknown (test code = 35915-1) Whether the patient was hospitalized for condition of interest Unkn own (test code = 76362-1) Whether the patient was admitted to intensive care unit (ICU) for U nknown condition of interest (test code = 35527-0) Whether patient resides in a congregate care setting (test code = U nknown 01614-9) status (test code = 47022-8) Unknown Date and time of symptom onset (test code = 94098-4) Unknown [facility] [id number] 18:02:00 Test Item Value Reference Range Interpretation Comments Urine culture (test SEE COMMENT Bacteriu rony screen code = 1209735) negative. [facility] [id number] 18:02:00 Test Item Value Reference Range Interpretation Comments Urine culture (test SEE COMMENT Bacteriu rony screen code = 1357240) negative. [facility] [id number] 18:02:00 Test Item Value Reference Range Interpretation Comments Urine culture (test SEE COMMENT Bacteriu rony screen code = 2334558) negative. [facility]- PET/CT TUMOR SK [id number] 14:28:00 [facility] 1965 Sex: M Patient Name: GENO PRASAD Unit No: [id number] EXAMS: CPT CODE: [id number] PET/CT TUMOR [facility] MID [address] EXAMINATION: - PET/CT TUMOR [facility] COMPARISON: PET/CT performed September 08, 2021 INDICATION: [...] All CT scans are performed using dose optimiz ation techniques as appropriate to a performed exam [...] pathologic. There is no mediastinal or right axillaryadenopathy. ABDOMEN AND PELVIS: Tracer uptake in the liver, spleen and tract is physiologic. There are new FDG avid postoperative changes in the midline abdominal wall. Bilateral abdominal ostomies are noted. A surgical drain remains present in the lower abdomen and there is increased uptake along the course of the drain of up to 5.7. Whether this represents reactive uptake to the placement of thedrain are uptake in the more proximal sigmoid colon is unclear, as the drain follows the course of the [facility] NAME: GENO PRASAD [address] [facility] [address] PHYS: [place] [address] : 1965 AGE: 56 SEX: M LOC: DayronZNUC PHONE #:[phone] EXAM DATE: 12/21/2021 STATUS: REG CLI FAX #: [phone] RADIOLOGY NO: PAGE 1 Signed Report (CONTINUED) Patient Name: GENO PRASAD Unit No: [id number] EXAMS: CPT CODE: [id number] PET/CT TUMOR SK BS MIDTH 93026 <Continued> sigmoid colon. Uptake in the more [...] appears slightly more prominent compared to the priorstudy but the patient has undergone recent surgery and the surgery may somewhat confound the picture. There is also continued increased uptake along the proximal sigmoid colon. As a surgical drain overlies this area, the relative contribution of possible reactive change to malignancy cannot be ascertained. No areas suspicious for metastatic disease identified Other findings as above ElectronicallySigned by Gregoria Reynolds MD on 12/21/2021 at 1428 Reported and signed by: Gregoria Reynolds MD CC: Shasha Mancera MD Technologist: Alessia Bradshaw, RT(M)(CT); Linnea Vasquez RT(N) Transcrpt Date/Tm/Trnsp: 12/21/2021 (1428) t.SDR.AG38 Orig Print D/T: S: 12/21/2021 (0283) [facility] NAME: GENO PRASAD [id number] [facility] [address] PHYS: [place] [address] : 1965 AGE: 56 SEX: M LOC: Z.ZNUC PHONE #: [phone] EXAM DATE: 12/21/2021 STATUS: REG CLI FAX #: [phone] RADIOLOGY NO: PAGE 2 Signed ReportGLUCOSE 2021-12-21 09:50:00 Test Item Value Reference Range Interpretation Comments GLUCOSE (test code = GLU) 98 MG/DL 79-105 N Comments to Line Service Supervisor: FOR PETIs this a LINE draw? N- PET/CT [facility]UMOR [id number] 13:41:00 [facility] : 1965 Sex: M Patient Name: GENO PRASAD Unit No: [id number] EXAMS: CPT CODE: [id number] PET/CT TUMOR [facility] MIDTH 36846 EXAM: PET/CT scan INDICATION: MALIGNANT NEOPLASM OF RECTUM COMPARISON: None at this time LOCATION: H45 TECHNIQUE: Approximately 60 minutes following the intravenous [...] spine without and with contrast is recommended. [facility] NAME: GENO PRASAD [address] [facility] [address] PHYS: [place] [address] : 1965 AGE: 56 SEX: M LOC: EMILYUC PHONE #: [phone] EXAM DATE: 09/08/2021 STATUS: DEP CLI FAX #: [phone] RADIOLOGY NO: PAGE 1 Signed Report (CONTINUED) Patient Name: GENO PRASAD Unit No:[id number] EXAMS: CPT CODE: [id number] PET/CT TUMOR SK BS MIDTH 04917 <Continued> There are small lymph nodes in [...] (1341) t.SDR.PMT Orig Print D/T: S: 09/10/2021 (4044) [facility] NAME: GENO PRASAD [address] [address] PHYS: [place] [address] : 1965 AGE: 56 SEX: M LOC: HANNAH PHONE #: [phone] EXAM DATE: 09/08/2021 STATUS: DEP CLI FAX #: [phone] RADIOLOGY NO: PAGE 2 Signed [id number] 09:44:00 Test Item Value Reference Range Interpretation Comments GLUCOSE (test code = GLU) 86 MG/DL 79-105 N SARS-CoV-2 (COVID-19) RNA [Presence] in Respiratory specimen by YVROSE with probe [id number] 18:54:41 Test Item Value Reference Range Interpretation Comments SARS-CoV-2 (COVID-19) RNA Not detected Not-Detected [Presence] in Respiratory specimen by YVROSE with probe detection (test code = 65318-3) Whether patient is employed in a healthcare setting (test code = 11550-3) Whether the patient has symptoms related to condition of interest (test code = 99730-4) Patient was hospitalized because of this condition (test code = 20779-6) Whether the patient was admitted to intensive care unit (ICU) for condition of interest (test code = 06917-8) Whether patient resides in a congregate care setting (test code = 53850-2) status (test code = 71024-3) BERNARDO WAITESARS-CoV-2 (COVID-19) RNA [Presence] in Respiratory specimen by YVROSE with probe [id number] 16:30:19 Test Item Value Reference Range Interpretation Comments SARS-CoV-2 (COVID-19) RNA Not detected Not-Detected [Presence] in Respiratory specimen by YVROSE with probe detection (test code = 79120-9) Whether patient is employed in a healthcare setting (test code = 81392-3) Whether the patient has symptoms related to condition of interest (test code = 32817-7) Patient was hospitalized because of this condition (test code = 97313-2) Whether the patient was admitted to intensive care unit (ICU) for condition of interest (test code = 29329-4) Whether patient resides in a congregate care setting (test code = 68817-0) BERNARDO WAITE
[2022-12-08 23:46] LABS: Absolute Lymphocytes (CBC) 0.4 K/uL (0.7-4.9); Hematocrit 27.2 % (39.6-49.0); Lymphocytes % 18.1 % (15.3-44.8); MCV 76.9 fL (80-100); MPV 6.4 fL (7.6-11.3); RBC Red Blood Cell Count 3.54 M/uL (4.33-5.43)
[2022-12-08 23:47] LABS: Protime INR 1.19
[2022-12-08] MEDS ORDERED: FENTANYL CITR 100 MCG/2 ML ONE (23:48)
[2022-12-08] MEDS ORDERED: NA CHLORIDE 0.9% 500 ML ONE (23:48)
[2022-12-09 00:02] LABS: Albumin 2.5 g/dL (3.4-5.0); Bilirubin Direct 0.2 mg/dL (0-0.2); Bilirubin Total 0.6 mg/dL (0.2-1.0); Troponin High Sensitivity 41.5 pg/mL (<58.9)
[2022-12-09 03:16] LABS: Urine Blood 1+ (Negative); Urine Glucose Negative (Negative); Urine Protein Trace (Negative)
--- NOTE | 2022-12-09 03:29 | EDPHYS ---
Physician Documentation [facility] Name: Edwin Young Age: 57 yrs Sex: Male : 1965 Arrival Date: 12/08/2022 Time: 20:57 Bed 4 Private MD: ED Physician John Crisostomo HPI: 12/08 21:30 This 57 yrs old Black Male presents to ER via Ambulatory with complaints of Abdominal cp Pain, Weakness. 21:30 The patient presents with abdominal pain that is diffuse. cp 21:30 Onset: The symptoms/episode began/occurred chronically. cp 21:30 The symptoms do not radiate. Associated signs and symptoms: Pertinent positives: cp general weakness, Pertinent negatives: blood in stools, fever, vomiting. The symptoms are described as constant. Severity of pain: in the emergency department the pain is unchanged despite home interventions. Historical: - Allergies: 21:22 No Known Allergies; tw5 - Home Meds: 12/09 02:07 Allopurinol Oral [Active]; carvedilol Oral [Active]; Lasix Oral [Active]; kd3 - PMHx: 12/08 21:22 CHEMO; CHF; colon cancer; Gout; Hypertension; tw5 - Immunization history:: Flu vaccine is up to date. - Social history:: Smoking status: Patient denies any tobacco usage or history of. ROS: 21:35 Constitutional: Negative for body aches, chills, fever, poor PO intake. cp 21:35 Cardiovascular: Negative for chest pain, edema, palpitations. cp 21:35 Eyes: Negative for injury, pain, redness, and discharge. cp 21:35 Respiratory: Negative for cough, shortness of breath, wheezing. 21:35 Abdomen/GI: Positive for abdominal pain, Negative for vomiting, constipation, black/tarry stool. 21:35 Neuro: Positive for weakness, Negative for altered mental status, headache. 21:35 All other systems are negative. Exam: 21:40 Constitutional: The patient appears in no acute distress, alert, awake, cp non-diaphoretic, non-toxic, well developed, well nourished. 21:40 Head/Face: Normocephalic, atraumatic. cp 21:40 Eyes: Periorbital structures: appear normal, Conjunctiva: normal, no exudate, no injection, Sclera: no appreciated abnormality, Lids and lashes: appear normal, bilaterally. 21:40 ENT: External ear(s): are unremarkable, Nose: is normal, Mouth: Lips: moist, Oral mucosa: moist, Posterior pharynx: is normal, airway is patent, no erythema, no exudate. 21:40 Chest/axilla: Inspection: normal. 21:40 Cardiovascular: Rate: tachycardic, Rhythm: regular, Edema: is not appreciated, JVD: is not appreciated. 21:40 Respiratory: the patient does not display signs of respiratory distress, Respirations: normal, no use of accessory muscles, no retractions, labored breathing, is not present, Breath sounds: are clear throughout, no decreased breath sounds, no stridor, no wheezing. 21:40 Abdomen/GI: Inspection: distension, is not seen, Bowel sounds: active, all quadrants, Palpation: soft, in all quadrants, moderate abdominal tenderness, in the right lower quadrant and left lower quadrant, rebound tenderness, is not appreciated, involuntary guarding, is not appreciated. 21:40 Back: pain, is absent, ROM is normal. 21:40 Neuro: Orientation: to person, place \T\ time. Mentation: is normal, Motor: moves all fours, strength is normal, Sensation: is normal. 21:54 ECG was reviewed by the Attending Physician. Vital Signs: 21:19 BP 121 / 85; Pulse 100; Resp 18; Temp 98.8; Pulse Ox 100% on R/A; Weight 108.86 kg; tw5 Height 6 ft. 2 in. (187.96 cm); Pain 8/10; 23:38 BP 130 / 93; Pulse 84; Resp 19; Pulse Ox 98% on R/A; kd3 12/09 00:54 BP 141 / 99; Pulse 94; Resp 16; Pulse Ox 100% on R/A; kd3 02:07 Pulse 91; Resp 16; Pulse Ox 99% ; kd3 03:28 BP 136 / 88; Pulse 93; Resp 15 S; Pulse Ox 99% on R/A; as6 12/08 21:19 Body Mass Index 30.81 (108.86 kg, 187.96 cm) tw5 MDM: 12/08 21:25 Patient medically screened. cp 12/09 03:27 Data reviewed: vital signs, nurses notes, lab test result(s), EKG, radiologic studies, cp CT scan, plain films. 03:27 Differential diagnosis: Ureterolithiasis, urinary tract infection, sepsis, bowel cp obstruction. Consideration of Admission/Observation Escalation of care including admission/observation considered. I considered the following discharge prescriptions or medication management in the emergency department Medications were administered in the Emergency Department. See MAR. Independent interpretation of the following test(s) in the Emergency Department EKG: See my EKG interpretation above X-Ray: My interpretation is image of chest negative for focal pneumonia. Care significantly affected by the following chronic conditions: Hypertension, Congestive Heart Failure, Chronic Kidney Disease. Counseling: I had a detailed discussion with the patient and/or guardian regarding: the historical points, exam findings, and any diagnostic results supporting the discharge/admit diagnosis, lab results, radiology results, the need for outpatient follow up, an internal corrosion specialist, to return to the emergency department if symptoms worsen or persist or if there are any questions or concerns that arise at home. Response to treatment: the patient's symptoms have mildly improved after treatment, and as a result, I will discharge patient. Special discussion: Based on the patient's Hx, exam, and Dx evaluation, there is no indication for emergent surgery or inpatient Tx. It is understood by the patient/guardian that if the Sx's persist or worsen they need to return immediately for re-evaluation. 12/08 Order name: Basic Metabolic Panel; Complete Time: 00: cp 12/09 00: Interpretation: Normal except: GLUC 112; CRE 1.59; GFR 50. cp 12/08 Order name: CBC with Diff; Complete Time: 00: cp 12/09 00: Interpretation: Normal except: WBC 2.40; RBC 3.54; HGB 8.9; HCT 27.2; MCV 76.9; MCH cp 25.1; PLT 533; RDW 17.9; MPV 6.4; MATIAS% 79.0; MN% 1.7; LYMA 0.4; MNA 0.0. 12/08 Order name: LFT's; Complete Time: 00:06 cp 12/08 Order name: Magnesium; Complete Time: 00: cp 12/08 Order name: NT PRO-BNP; Complete Time: 00: cp 02/24 01:01 Interpretation: Abnormal: Reviewed. cp 12/08 21:34 Order name: PT-INR; Complete Time: 00:06 cp 12/08 21:34 Order name: Troponin HS; Complete Time: 00:06 cp 12/08 21:34 Order name: XRAY Chest (1 view); Complete Time: 18:34 cp 12/08 21:34 Order name: Lipase; Complete Time: 00:06 cp 12/09 01:01 Order name: CT Abd/Pelvis - Without Contrast; Complete Time: 18:34 cp 12/09 03:05 Order name: Urine Microscopic Only: from nephrostomy tube; Complete Time: 18:34 cp 12/09 03:05 Order name: Urine Microscopic Only: voided urine cp 12/09 03:16 Order name: Urine Dipstick-Ancillary; Complete Time: 03:28 EDMS 12/09 03:28 Interpretation: Normal except: UBLD 1+; UPROT Trace; UESTR 3+. cp 12/08 21:34 Order name: EKG; Complete Time: 21:36 cp 12/08 21:34 Order name: Cardiac monitoring; Complete Time: 23:35 cp 12/08 21:34 Order name: EKG - Nurse/Tech; Complete Time: 23:07 cp 12/08 21:34 Order name: IV Saline Lock; Complete Time: 23:35 cp 12/08 21:34 Order name: Labs collected and sent; Complete Time: 23:35 cp 12/08 21:34 Order name: O2 Per Protocol; Complete Time: 23:35 cp 12/08 21:34 Order name: O2 Sat Monitoring; Complete Time: 23:35 cp 12/09 03:05 Order name: Urine Dipstick-Ancillary (obtain specimen): from nephrostomy tube; Complete cp Time: 03:14 12/09 03:05 Order name: Urine Dipstick-Ancillary (obtain specimen): voided urine; Complete Time: cp 03:14 EC/23 21:54 Rate is 81 beats/min. Rhythm is regular. IL interval is normal. QRS interval is cp prolonged at 102 msec. QT interval is normal. T waves are Inverted in leads I, aVL. Interpreted by me. Reviewed by me. Administered Medications: 23:45 Drug: NS 0.9% 500 ml Route: IV; Rate: bolus; Site: right antecubital; kd3 12/09 03:54 Follow up: Response: No adverse reaction; IV Status: Completed infusion; IV Intake: as6 500ml 12/08 23:45 Drug: fentaNYL (PF) 25 mcg Route: IVP; Site: right antecubital; kd3 12/09 01:57 Follow up: Response: No adverse reaction; Pain is decreased kd3 03:50 Drug: Rocephin (cefTRIAXone) 1 grams Route: IM; Site: right ventrogluteal; as6 03:54 Follow up: Response: No adverse reaction as6 03:53 Not Given (Other Intervention Used): Rocephin (cefTRIAXone) 2 grams IV at calculated as6 rate once; Given slow IV push per pharmarcy instructions Disposition Summary: 12/09/22 03:28 Discharge Ordered Location: Home cp Problem: an ongoing problem cp Symptoms: have improved cp Condition: Stable cp Diagnosis - Acute cystitis cp - Anemia in other chronic diseases classified elsewhere cp - Abdominal pain, unspecified cp Followup: cp - With: Private Physician - When: 2 - 3 days - Reason: Recheck today's complaints Discharge Instructions: - Discharge Summary Sheet cp - Anemia cp - Chronic Pain, Adult cp - Urinary Tract Infection, Adult cp Forms: - Medication Reconciliation Form cp - Thank You Letter cp - Antibiotic Education cp - Prescription Opioid Use cp Prescriptions: - Zofran 4 mg Oral Tablet - take 1 tablet by ORAL route every 12 hours As needed; 20 tablet; Refills: 0, cp Product Selection Permitted - cefpodoxime 200 mg Oral Tablet - take 1 tablet by ORAL route every 12 hours for 10 days with food; 20 tablet; cp Refills: 0, Product Selection Permitted Addendum: 12/11/2022 07:43 Co-signature as Attending Physician, John Crisostomo MD I reviewed the patient's care r n provided by the Advanced Practice Provider and agree with the diagnosis and treatment plan. Signatures: Dispatcher [employer] EDJohn Wilson MD MD rn Page, Corey, PA PA cp Wood, Tiffany tw5 Rudy Tomas RN RN as6 Rachel Freedman RN RN kd3
--- NOTE | 2022-12-09 03:29 | ER ---
Nurse's Notes [facility] Name: Edwin Young Age: 57 yrs Sex: Male : 1965 Arrival Date: 12/08/2022 Time: 20:57 Bed 4 Private MD: Diagnosis: Acute cystitis;Anemia in other chronic diseases classified elsewhere;Abdominal pain, unspecified Presentation: 12/08 21:19 Chief complaint: Patient states: "I am suppose to get a blood transfusion next week, tw5 but I am just feeling so weak. I am in pain, I am nauseous, light headed. I have colon cancer and I am having pain in my rectum.". Coronavirus screen: Vaccine status: Patient reports receiving the 2nd dose of the covid vaccine. [employer]. Ebola Screen: Patient negative for fever greater than or equal to 101.5 degrees Fahrenheit, and additional compatible Ebola Virus Disease symptoms Patient denies exposure to infectious person. Patient denies travel to an Ebola-affected area in the 21 days before illness onset. Initial Sepsis Screen: Does the patient meet any 2 criteria? No. Patient's initial sepsis screen is negative. Does the patient have a suspected source of infection? No. Patient's initial sepsis screen is negative. Risk Assessment: Do you want to hurt yourself or someone else? Patient reports no desire to harm self or others. Onset of symptoms is unknown. 21:19 Method Of Arrival: Ambulatory tw5 21:19 Acuity: JASWINDER 3 tw5 Triage Assessment: 21:22 General: Appears uncomfortable, Behavior is calm, cooperative, appropriate for age. tw5 Pain: Pain currently is 8 out of 10 on a pain scale. GI: Reports nausea. Historical: - Allergies: 21:22 No Known Allergies; tw5 - Home Meds: 12/09 02:07 Allopurinol Oral [Active]; carvedilol Oral [Active]; Lasix Oral [Active]; kd3 - PMHx: 12/08 21:22 CHEMO; CHF; colon cancer; Gout; Hypertension; tw5 - Immunization history:: Flu vaccine is up to date. - Social history:: Smoking status: Patient denies any tobacco usage or history of. Screenin:[facility] ED Fall Risk Assessment (Adult) History of falling in the last 3 months, kd3 including since admission No falls in past 3 months (0 pts) Confusion or Disorientation No (0 pts) Intoxicated or Sedated No (0 pts) Impaired Gait No (0 pts) Mobility Assist Device Used No (0 pt) Altered Elimination No (0 pt) Score/Fall Risk Level 0 - 2 = Low Risk Maintained a safe environment. Abuse screen: Denies threats or abuse. Denies injuries from another. Nutritional screening: No deficits noted. Tuberculosis screening: No symptoms or risk factors identified. Assessment: 23:40 General: Appears in no apparent distress. Behavior is calm, cooperative. Pain: kd3 Complains of pain in rectal. Neuro: Level of Consciousness is awake, alert, obeys commands, Oriented to person, place, time, situation. Cardiovascular: Patient's skin is warm and dry. Respiratory: Airway is patent Trachea midline Respiratory effort is even, unlabored, Respiratory pattern is regular, symmetrical. 23:41 GI: Bowel sounds Abd is soft and non tender. kd3 Vital Signs: 21:19 BP 121 / 85; Pulse 100; Resp 18; Temp 98.8; Pulse Ox 100% on R/A; Weight 108.86 kg; tw5 Height 6 ft. 2 in. (187.96 cm); Pain 8/10; 23:38 BP 130 / 93; Pulse 84; Resp 19; Pulse Ox 98% on R/A; kd3 0224 00:54 BP 141 / 99; Pulse 94; Resp 16; Pulse Ox 100% on R/A; kd3 02:07 Pulse 91; Resp 16; Pulse Ox 99% ; kd3 03:28 BP 136 / 88; Pulse 93; Resp 15 S; Pulse Ox 99% on R/A; as6 12/08 21:19 Body Mass Index 30.81 (108.86 kg, 187.96 cm) tw5 ED Course: 12/08 20:57 Patient arrived in ED. jj6 20:57 Steven Quesada PA is PHCP. cp 20:57 John Crisostomo MD is Attending Physician. cp 21:22 Triage completed. tw5 21:22 Arm band placed on. tw5 22:35 Rudy Tomas, TJ is Primary Nurse. as6 23:11 XRAY Chest (1 view) In Process Unspecified. EDMS 23:35 Basic Metabolic Panel Sent. kd3 23:35 Magnesium Sent. kd3 23:35 LFT's Sent. kd3 23:35 CBC with Diff Sent. kd3 23:35 PT-INR Sent. kd3 23:35 NT PRO-BNP Sent. kd3 23:35 Troponin HS Sent. kd3 23:36 Lipase Sent. kd3 23:38 Inserted saline lock: 20 gauge in right antecubital area, using aseptic technique. kd3 Blood collected. 12/09 02:06 CT Abd/Pelvis - Without Contrast In Process Unspecified. EDMS 02:07 No provider procedures requiring assistance completed. kd3 02:08 Patient has correct armband on for positive identification. kd3 03:55 IV discontinued, intact, bleeding controlled, No redness/swelling at site. Pressure as6 dressing applied. Administered Medications: 12/08 23:45 Drug: NS 0.9% 500 ml Route: IV; Rate: bolus; Site: right antecubital; kd3 12/09 03:54 Follow up: Response: No adverse reaction; IV Status: Completed infusion; IV Intake: as6 500ml 12/08 23:45 Drug: fentaNYL (PF) 25 mcg Route: IVP; Site: right antecubital; kd3 12/09 01:57 Follow up: Response: No adverse reaction; Pain is decreased kd3 03:50 Drug: Rocephin (cefTRIAXone) 1 grams Route: IM; Site: right ventrogluteal; as6 03:54 Follow up: Response: No adverse reaction as6 03:53 Not Given (Other Intervention Used): Rocephin (cefTRIAXone) 2 grams IV at calculated as6 rate once; Given slow IV push per pharmarcy instructions Medication: 02:08 VIS not applicable for this client. kd3 Intake: 03:54 IV: 500ml; Total: 500ml. as6 Outcome: 03:28 Discharge ordered by . cp 03:55 Discharged to home ambulatory. as6 03:55 Condition: stable 03:55 Discharge instructions given to patient, Instructed on discharge instructions, follow up and referral plans. medication usage, Demonstrated understanding of instructions, follow-up care, medications, Prescriptions given X 2. 03:55 Patient left the ED. as6 Signatures: Dispatcher [employer] EDMS Steven Quesada PA PA cp Wood, Tiffany tw5 Antonia Palma jj6 Rudy Tomas RN RN as6 Tano, Rachel, RN RN kd3 Corrections: (The following items were deleted from the chart) 00:04 12/08 11:45 NS 0.9% 500 ml IV at bolus in right antecubital kd3 kd3
[2022-12-09] MEDS ORDERED: CEFTRIAXONE 2000 MG/VIAL ONE (03:43)
[2022-12-09] MEDS ORDERED: LIDOCAINE 1% MPF 2 ML AMPULE ONE (03:49)
[2022-12-09] MEDS ORDERED: CEFTRIAXONE 1000 MG/VIAL ONE (03:49)
[2022-12-09 04:23] LABS: Urine Bacteria 20-50 /HPF (<20); Urine RBC <5 /HPF (None Seen)
[2022-12-09 04:23] LABS: Urine Bacteria <20 /HPF (<20); Urine RBC <5 /HPF (None Seen)
[2022-12-09 04:52] VITALS: TEMP 98.8
[2022-12-09 04:57] VITALS: O2SAT 99
[2022-12-09 04:58] VITALS: BP 136/88
--- NOTE | 2022-12-09 10:31 | RAD REPORT ---
EXAM DESCRIPTION: RAD - Chest Single View - 12/08/2022 10:44 pm CLINICAL HISTORY: The patient is 57 years old and is Male; weakness TECHNIQUE: Frontal view of the chest. COMPARISON: No relevant prior studies available. FINDINGS: LUNGS: Unremarkable. No consolidation. PLEURAL SPACE: Unremarkable. No pneumothorax. HEART: The cardiac silhouette is enlarged. MEDIASTINUM: Unremarkable. BONES/JOINTS: Multilevel degenerative change of the spine is present. TUBES, LINES AND DEVICES: A right chest port is present with the tip in the SVC. UPPER ABDOMEN: Unremarkable as visualized. IMPRESSION: Cardiomegaly without failure. Electronically signed by: Anne Wick MD 12/08/2022 11:08 PM WALLET ASSEMBLER Due to temporary technical issues with the PACS/Fluency reporting system, reports are being signed by the in house radiologists without review as a courtesy to insure prompt reporting. The interpreting radiologist is fully responsible for the content of the report.
--- NOTE | 2022-12-09 10:35 | RAD REPORT ---
EXAM DESCRIPTION: CT - Abdomen Pelvis Wo Contrast - 12/09/2022 6:52 am CLINICAL HISTORY: 57 years Male abdominal pain, nausea, colon cancer COMPARISON: November 16, 2022 TECHNIQUE: Images were obtained in axial, sagittal and coronal planes. Intravenous contrast was admi nistered. This exam was performed according to our departmental dose-optimization program which includes use of Automated Exposure Control, adjustment of the mA and/or kV according to patient size and/or use of i terative reconstruction technique. FINDINGS: No abnormality involving the liver, this seen, pancreas, gallbladder, or adrenal glands bi laterally. Percutaneous left nephrostomy to unchanged in position. No hydronephrosis on left. Mild right hydrone phrosis unchanged. No obstructing renal or ureteral calculi bilaterally. Marked mucosal thickening in volving the bladder likely cystitis. Unremarkable prostate gland. Appendix within normal limits. No bowel obstruction. Anterior bilateral ostomy sites unchanged when c orrelated with the prior study. Rectal remnant unchanged in appearance. No dilatation of abdominal aorta. Previously questioned left pelvic adenopathy unchanged in appearanc e. No abnormal fluid collections seen. No acute osseous abnormality. Chronic changes lower lungs bilaterally. Enlarged heart. IMPRESSION: Bilateral ostomy sites again noted anteriorly. No evidence for bowel obstruction. Percut aneous nephrostomy left kidney with no hydronephrosis noted. Mild right hydronephrosis unchanged. Fin dings indicating marked cystitis. Electronically signed by: Ansley Marie MD 12/09/2022 2:13 AM SPIRITUAL COUNSELOR Due to temporary technical issues with the PACS/Fluency reporting system, reports are being signed by the in house radiologists without review as a courtesy to insure prompt reporting. The interpreting radiologist is fully responsible for the content of the report.
--- NOTE | 2022-12-09 13:20 | EKG ---
Test Date: 2022-12-08 Test Time: 21:44:11 Tool Grinder Operator External: ALEXSANDRA MEASUREMENT RESULTS: Intervals: Rate: 86 CA: 164 QRSD: 96 QT: 396 QTc: 473 [place]: P: 49 CA: 164 QRS: -29 T: 95 INTERPRETIVE STATEMENTS: Normal sinus rhythm Possible Left atrial enlargement Abnormal QRS-T angle, consider primary T wave abnormality Prolonged QT Abnormal ECG Compared to ECG 11/18/2014 01:42:53 T-wave abnormality now present Prolonged QT interval now present Sinus tachycardia no longer present Electronically Signed On 12-09-22 13:18:08 BLACK TOP SPREADER MACHINE OPERATOR by Mayur Birch
== END 2022-12-09 03:55 | disposition home or self-care (01) ==
LOC: ER 20:53
DX: N30.00 Acute cystitis without hematuria (principal); D64.9 Anemia, unspecified; I10 Essential (primary) hypertension; I50.9 Heart failure, unspecified; Z85.038 Personal history of other malignant neoplasm of large intestine
CPT/HCPCS: 96361; 93005; 87088; 85025; 87086; 80048; 36415; 83735; 85610; 80076; 87077; 87186; 84484; 83690; 83880; 74176; 71045; 96372; 96374; 99284; J3010; J7040; 81003; 81015; J0696

== ENCOUNTER 2023-04-03 12:00 | Emergency (ER) | payer OTHER ==
--- NOTE | 2023-04-03 12:32 | EDPHYS ---
Physician Documentation [facility] Name: Edwin Young Age: 57 yrs Sex: Male : 1965 Arrival Date: 04/03/2023 Time: 12:00 Bed 10 Private MD: ED Physician Steven Reeves HPI: 04/03 12:27 This 57 yrs old Black Male presents to ER via Ambulatory with complaints of picc line kb problem. 12:27 Pt reports he has a PICC line for IV antibiotics and after his last dose he noticed kb bleeding from one of the ports. States he clamped it and it stopped, but he wanted to make sure it was ok. Onset: The symptoms/episode began/occurred just prior to arrival. Severity of symptoms: At their worst the symptoms were mild in the emergency department the symptoms have improved. The patient has not experienced similar symptoms in the past. The patient has been recently seen by a physician:. Historical: - Allergies: 12:14 No Known Allergies; aa5 - PMHx: 12:14 CHEMO; CHF; colon cancer; Gout; Hypertension; aa5 - PSHx: 12:14 L nephrostomy; Colostomy; aa5 ROS: 12:15 Constitutional: Negative for fever, chills, and weight loss. kb 12:26 All other systems are negative. kb Exam: 12:26 Constitutional: This is a well developed, well nourished patient who is awake, alert, kb and in no acute distress. Head/Face: Normocephalic, atraumatic. ENT: Moist Mucous membranes Respiratory: Respirations even and unlabored. No increased work of breathing. Talking in full sentences Skin: Warm, dry with normal turgor. Normal color. MS/ Extremity: Pulses equal, no cyanosis. Neurovascular intact. Full, normal range of motion. Neuro: Awake and alert, GCS 15, oriented to person, place, time, and situation. Moves all extremities. Normal gait. 12:26 Musculoskeletal/extremity: PICC line in place on left upper arm. No bleeding at site, dressing intact. Vital Signs: 12:15 BP 149 / 119; Pulse 104; Resp 19 S; Temp 97.7(TE); Pulse Ox 100% on R/A; Weight 90.72 aa5 kg (R); Height 6 ft. 2 in. (R); 12:15 Body Mass Index 25.68 (90.72 kg, 187.96 cm) aa5 MDM: 12:10 Patient medically screened. kb 12:26 Data reviewed: vital signs, nurses notes. kb 12:30 Counseling: I had a detailed discussion with the patient and/or guardian regarding: the kb historical points, exam findings, and any diagnostic results supporting the discharge/admit diagnosis, the need for outpatient follow up, a family practitioner, to return to the emergency department if symptoms worsen or persist or if there are any questions or concerns that arise at home. 04/03 12:13 Order name: Misc. Order: flush picc ; Complete Time: 12:31 kb Administered Medications: No medications were administered Disposition Summary: 04/03/23 12:32 Discharge Ordered Location: Home kb Condition: Stable kb Diagnosis - Encounter for PICC line evaluation kb Followup: kb - With: Emergency Department - When: As needed - Reason: Worsening of condition Followup: kb - With: Private Physician - When: 2 - 3 days - Reason: Recheck today's complaints, Continuance of care, Re-evaluation by your physician Discharge Instructions: - Discharge Summary Sheet kb - PICC Home Care Guide kb Forms: - Medication Reconciliation Form kb - Thank You Letter kb - Antibiotic Education kb - Prescription Opioid Use kb Signatures: Ana Laura Yusuf, BARBRA-C BARBRA-Amy Kenney, RN RN aa5 Corrections: (The following items were deleted from the chart) 12:26 12:26 Musculoskeletal/extremity: PICC line in place on left upper arm. No bleeding at kb site. kb
--- NOTE | 2023-04-03 12:32 | ER ---
Nurse's Notes [facility] Name[facility] Edwin Young Age: 57 yrs Sex: Male : 1965 Arrival Date: 04/03/2023 Time: 12:00 Bed 10 Private MD: Diagnosis: Encounter for PICC line evaluation Presentation: 04/03 12:14 Chief complaint: Chief complaint: Patient states: "my PICC line was bleeding". No aa5 bleeding noted to PICC line site, blood noted to PICC tubing. Reports is giving himself home IV antibiotics for UTI. 12:15 Coronavirus screen: At this time, the client does not indicate any symptoms associated aa5 with coronavirus-19. Ebola Screen: Patient denies travel to an Ebola-affected area in the 21 days before illness onset. Initial Sepsis Screen: Does the patient meet any 2 criteria? HR > 90 bpm. Does the patient have a suspected source of infection? Yes: Dysuria/Frequency/Urgency/UTI. Risk Assessment: Do you want to hurt yourself or someone else? Patient reports no desire to harm self or others. Onset of symptoms was April 03, 2023. 12:15 Acuity: JASWINDER 4 aa5 12:15 Method Of Arrival: Ambulatory aa5 Historical: - Allergies: 12:14 No Known Allergies; aa5 - PMHx: 12:14 CHEMO; CHF; colon cancer; Gout; Hypertension; aa5 - PSHx: 12:14 L nephrostomy; Colostomy; aa5 Screenin:[address] [facility] ED Fall Risk Assessment (Adult) History of falling in the last 3 months, mb9 including since admission No falls in past 3 months (0 pts) Confusion or Disorientation No (0 pts) Intoxicated or Sedated No (0 pts) Impaired Gait No (0 pts) Mobility Assist Device Used No (0 pt) Altered Elimination No (0 pt) Score/Fall Risk Level 0 - 2 = Low Risk Oriented to surroundings, Maintained a safe environment, Educated pt \\T\\ family on fall prevention, incl call for assistance when getting out of bed. Abuse screen: Denies threats or abuse. Nutritional screening: No deficits noted. Tuberculosis screening: No symptoms or risk factors identified. Assessment: 12:31 General: Appears in no apparent distress. Behavior is calm, cooperative. Pain: Denies mb9 pain. Neuro: Level of Consciousness is awake, alert, obeys commands, Oriented to person, place, time, situation, Appropriate for age. Respiratory: Airway is patent. Derm: Skin is pink, warm \\T\\ dry. Musculoskeletal: Range of motion: intact in all extremities. 12:38 Reassessment: No changes from previously documented assessment. Patient and/or family mb9 updated on plan of care and expected duration. Pain level reassessed. Patient is alert, oriented x 3, equal unlabored respirations, skin warm/dry/pink. Vital Signs: 12:15 BP 149 / 119; Pulse 104; Resp 19 S; Temp 97.7(TE); Pulse Ox 100% on R/A; Weight 90.72 aa5 kg (R); Height 6 ft. 2 in. (R); 12:15 Body Mass Index 25.68 (90.72 kg, 187.96 cm) aa5 ED Course: 12:02 Patient arrived in ED. cc5 12:09 Ana Laura Yusuf FNP-C is [facility]. beulah 12:09 Steven Reeves MD is Attending Physician. kb 12:14 Arm band placed on. aa5 12:16 Triage completed. aa5 12:18 Brooke Boyle, TJ is Primary Nurse. mb9 12:19 Placed in gown. Bed in low position. Call light in reach. Side rails up X 1. Client mb9 placed on continuous cardiac and pulse oximetry monitoring. NIBP monitoring applied. 12:31 No provider procedures requiring assistance completed. IV is patent, is intact, with mb9 good blood return, Flushed left PICC line with 5 ml normal saline Administered Medications: No medications were administered Medication: 12:20 VIS not applicable for this client. mb9 Outcome: 12:32 Discharge ordered by . kb 12:38 Discharged to home ambulatory. mb9 12:38 Condition: stable 12:38 Discharge instructions given to patient, Instructed on discharge instructions, follow up and referral plans. Demonstrated understanding of instructions, follow-up care. 12:39 Patient left the ED. mb9 Signatures: Ana Laura Yusuf FNP-C FNP-Ckb Calderon, Audri, RN RN aa5 Brooke Boyle RN RN mb9 Flores Domingo 5 Corrections: (The following items were deleted from the chart) 12:16 12:14 Chief complaint: aa5 aa5
--- OUTSIDE RECORDS SUMMARY | 2023-04-03 12:37 | XMS REPORT | Continuity of Care Document ---
:1965 Author Organization [facility] t Address [address] [facility] [address] [place] [id number] Care Team Providers Name Role Phone SHERYL CHARLES Primary Care Physician Unavailable Tarsha Mancera Attending Clinician Unavailable Lalo Ruiz Attending Clinician Unavailable Clayton Dale MD Attending Clinician Eladio Stafford MD Attending Clinician Shanika Fritz MD Attending Clinician Chris Sibley Attending Clinician SHERYL CHARLES Attending Clinician Unavailable SHERYL CHARLES Attending Clinician Unavailable Seymour Sales Attending Clinician Unavailable NARDA_[facility]_[email or web address] Attending Clinician Unavailable Parviz Jameson DO Attending Clinician Nils Cowan MD Attending Clinician Rhys Gramajo MD Attending Clinician [phone] DERRICK HOLT Attending Clinician Unavailable JENNY ULLOA Attending Clinician Unavailable MD DALLIN LIU Attending Clinician Unavailable MD RHYS GRAMAJO Attending Clinician Unavailable JONATHAN COVINGTON Attending Clinician Unavailable Bro Vargas Admitting Clinician Unavailable Seymour Sales Admitting Clinician Unavailable ELADIO STAFFORD Admitting Clinician Unavailable [email or web address] Admitting Clinician Unavailable NILS COWAN Admitting Clinician Unavailable TANIA WALTER Admitting Clinician Unavailable KNOW, DOES_NOT Admitting Clinician Unavailable DALLIN LIU Admitting Clinician Unavailable MD DALLIN LIU Admitting Clinician Unavailable MD NILS COWAN Admitting Clinician Unavailable Payers Payer Name Policy Type Policy Number Effective Date Expiration Date S lisset [facility] [id number] 2022 00:00:00 [facility] [id number] [place]MED[place]ID REPLAC[place] - HMO) [facility] [id number] (HMO) Problems Condition Condition Condition Status Onset Resolution Last Treating Co mments Source Name Details Category Date Date Treatment Clinician Date Pyelonephr Pyelonephr Disease Active M ethodi itis itis [address] [facility] 00:00: Hospita 00 l Diarrhea Diarrhea Disease Active 2020-10 Metho di [...] Date Clinician No Known DA Active [facility] No Known DA Active U 2020-10 [facility] NO KNOWN Drug Active Univers ALLERGIE Class ity of S [facility] Social History Social Habit Start Date Stop Date Quantity Comments Source History SDOH [facility] al History SDOH [facility] Sexual [facility] History of Social 2023-03-28 2023-03-[address] function 00:00:00 00:00:00 Hospital Alcohol intake 2023-03-22 2023-03-22 Lifetime [facility] 00:00:00 00:00:00 non-drinker Hospital (finding) Exposure to 2022-12-05 2022-12-15 Not sure University of SARS-CoV-2 (event) 00:00:00 15:34:00 [facility] History SDOH 2021-08-01 2021-08-01 1 [facility] Alcohol Frequency 00:00:00 00:00:00 Hospita l Tobacco use and 2021-08-01 2021-08-01 Smokeless [facility] exposure 00:00:00 00:00:00 tobacco non-user Hospital Sex Assigned At [birth year] [facility] 00:00:00 00:00:00 Hospital Smoking Status Start Date Stop Date Source Never smoked tobacco [facility] Medications Ordered Filled Start Stop Current Ordering Indication Dosage Frequency Signature Comments Components Source Medication Medication Date Date Medication? Clinician (SIG) Name Name carvediloL Yes 25mg QD Take 1 Metho di (COREG) 25 -14 tablet (25 st MG tablet 19:03: mg total) Hos caity 05 by mouth l daily. ertapenem 1 2022- Yes 1g Q24H Infuse 1 g Methodi g in sodium 03-[address] chloride 00:00: 04:59 venous Hospit a 0.9 % MBP 00 :00 catheter l 50 mL IVPB daily for 14 days. furosemide Yes 40mg QD Take 1 Metho di (LASIX) 40 6-13 tablet (40 st mg tablet 19:03: mg total) Hos caity 32 by mouth l daily. linezolid 2022- Yes 600mg Q.5D Take 1 Meth cordelia (ZYVOX) 600 6-13 06-[address] mg tablet 00:00: 04:59 (600 mg Hosp cristy 00 :00 total) by l mouth 2 (two) times a day for 14 days. carvedilol 2022- No 20mg Take 1 Univ ers 20 mg 24 hr 3-12-15 capsule by i ty of capsule 16:06: 00:00 mouth in [place] 28 :00 the Medical morning. Branch carvedilol 2022- No 20mg Take 1 Univ ers 20 mg 24 hr 3-02 03-02 capsule by i ty of capsule 16:06: 00:00 mouth in [place] 28 :00 the Medical morning. Branch carvedilol 2023-0 Yes [id number] 20mg Take 1 U nivers 20 mg 24 hr 3-02 capsule by it y of capsule 00:00: mouth in [place] 00 the Medical morning. Branch furosemide 2023-0 Yes [id number] 40mg Take 1 U nivers 40 mg 3-02 tablet by ity of tablet 00:00: mouth in [place] 00 the Medical morning. Branch carvedilol 2023-0 Yes [id number] 20mg Take 1 U nivers 20 mg 24 hr 3-02 capsule by it y of capsule 00:00: mouth in [place] 00 the Medical morning. Branch furosemide 2023-0 Yes [id number] 40mg Take 1 U nivers 40 mg 3-02 tablet by ity of tablet 00:00: mouth in [place] 00 the Medical morning. Branch carvedilol 2023-0 Yes [id number] 20mg Take 1 U nivers 20 mg 24 hr 3-02 capsule by it y of capsule 00:00: mouth in [place] the Medical morning. Branch furosemide 2023-0 Yes [id number] 40mg Take 1 U nivers 40 mg 3-02 tablet by ity of tablet 00:00: mouth in [place] the Medical morning. Branch carvedilol 2023-0 Yes [id number] 20mg Take 1 U nivers 20 mg 24 hr 3-02 capsule by it y of capsule 00:00: mouth in [place] 00 the Medical morning. Branch furosemide 2023-0 Yes [id number] 40mg Take 1 U nivers 40 mg 3-02 tablet by ity of tablet 00:00: mouth in [place] 00 the Medical morning. Branch amoxicillin 2023-0 Yes 875mg Take 1 Uni vers 875 mg 2-24 tablet by ity of tablet 00:00: mouth [place] 00 every 12 Medical (twelve) Branch hours. amoxicillin 2023-0 Yes 875mg Take 1 Uni vers 875 mg 2-24 tablet by ity of tablet 00:00: mouth [place] 00 every 12 Medical (twelve) Branch hours. amoxicillin 2023-0 Yes 875mg Take 1 Uni vers 875 mg 2-24 tablet by ity of tablet 00:00: mouth [place] 00 every 12 Medical (twelve) Branch hours. amoxicillin 2023-0 Yes 875mg Take 1 Uni vers 875 mg 2-24 tablet by ity of tablet 00:00: mouth [place] 00 every 12 Medical (twelve) Branch hours. furosemide 2023-0 Yes 40mg QD Take 1 Metho di (LASIX) 40 1-19 tablet (40 st mg tablet 15:19: mg total) Hos caity 03 by mouth l daily. furosemide 2023-0 Yes 40mg QD Take 1 Metho di (LASIX) 40 1-19 tablet (40 st mg tablet 15:19: mg total) Hos caity 03 by mouth l daily. furosemide 2023-0 Yes 40mg QD Take 1 Metho di (LASIX) 40 1-19 tablet (40 st mg tablet 15:19: mg total) Hos caity 03 by mouth l daily. furosemide 2023-0 Yes 40mg QD Take 1 Metho di (LASIX) 40 1-19 tablet (40 st mg tablet 15:19: mg total) Hos caity 03 by mouth l daily. carvedilol 3-0 3- No 20mg Q.5D Take 1 Meth cordelia CR (COREG 1-03 11-[address] CR) 20 MG 15:19: 00:00 (20 mg Hospi ta 24 hr 03 :00 total) by l capsule mouth 2 (two) times a day. carvedilol 3-0 3- No 20mg Q.5D Take 1 Meth cordelia CR (COREG 1-[address] CR) 20 MG 15:19: 00:00 (20 mg Hospi ta 24 hr 03 :00 total) by l capsule mouth 2 (two) times a day. carvedilol 2023-0 2023- No 20mg Q.5D Take 1 Meth cordelia CR (COREG 1-[address] CR) 20 MG 15:19: 00:00 (20 mg Hospi ta 24 hr 03 :00 total) by l capsule mouth 2 (two) times a day. carvedilol 2023-0 2023- No 20mg Q.5D Take 1 Meth cordelia CR (COREG 1-[address] CR) 20 MG 15:19: 00:00 (20 mg Hospi ta 24 hr 03 :00 total) by l capsule mouth 2 (two) times a day. carvedilol 2023-0 2023- No 20mg Q.5D Take 1 Meth cordelia CR (COREG 11-[address] CR) 20 MG 15:19: 00:00 (20 mg Hospi ta 24 hr 03 :00 total) by l capsule mouth 2 (two) times a day. carvediloL 2022- No 12.5mg Q.5D Take 1 [...] times a day for 30 days. carvediloL 0 2022- No 12.5mg Q.5D Take 1 Me thodi (COREG) 11-[address] 12.5 MG 00:00: 05:59 (12.5 mg Hospi ta tablet 00 :00 total) by l mouth 2 (two) times a day for 30 days. furosemide 2021-10- No 40mg Take 1 Univ ers 40 mg 12-07 tablet by ellay of tablet 00:00: 00:00 mouth in [place] 00 :00 the Medical morning. Branch furosemide 2021-10- No 40mg Take 1 Univ ers 40 mg 12-07 tablet by ity of tablet 00:00: 00:00 mouth in [place] 00 :00 the Medical morning. Branch No known 2020-10 No No known Metho [...] Time Observation Value Comments Source Systolic blood 2022-12-15 21:45:00 126 mm[Hg] Univer sity pressure [facility] Diastolic blood 2022-12-15 21:45:00 86 mm[Hg] Unive rsity [facility] Heart rate 2022-12-15 21:45:00 104 /min [facility] Body temperature 2022-12-15 21:45:00 35.94 Mary Carmen Univ ersity [facility] Body height 2022-12-15 21:45:00 188 cm [facility] Body weight 2022-12-15 21:45:00 106.595 kg [facility] BMI 2022-12-15 21:45:00 30.17 kg/m2 [facility] Oxygen saturation in 2022-12-15 21:45:00 97 /min University of Arterial blood by [facility] Pulse oximetry Branch Systolic blood 2023-03-28 21:07:06 122 mm[Hg] Method [facility] pressure Diastolic blood 2023-03-28 21:07:06 78 mm[Hg] [facility] pressure Heart rate 2023-03-28 21:07:06 84 /min [facility] Body temperature 2023-03-28 21:07:06 36.17 Mary Carmen [facility] Respiratory rate 2023-03-28 21:07:06 18 /min [facility] Oxygen saturation in 2023-03-28 21:07:06 97 /min [facility] Arterial blood by Pulse oximetry Body height 2023-03-23 00:01:00 188 cm [facility] Body weight 2023-03-23 00:01:00 113.399 kg [facility] BMI 2023-03-23 00:01:00 32.10 kg/m2 [facility] Systolic blood 2022-11-02 13:50:01 147 mm[Hg] Method [facility] pressure Diastolic blood 2022-11-02 13:50:01 87 mm[Hg] [facility] pressure Heart rate 2022-11-02 13:50:01 90 /min [facility] Body temperature 2022-11-02 13:50:01 36 Mary Carmen [facility] Respiratory rate 2022-11-02 13:50:01 18 /min [facility] Oxygen saturation in 2022-11-02 13:50:01 99 /min [facility] Arterial blood by Pulse oximetry Body height 2022-10-25 11:00:00 188 cm [facility] Body weight 2022-10-25 11:00:00 113.399 kg [facility] BMI 2022-10-25 11:00:00 32.10 kg/m2 [facility] Procedures Procedure Date / Time Performing Clinician Source Performed PICC INSERTION REQUEST 2023-03-28 14:05:23 Justa Winter [facility] CBC WITH PLATELET AND 2023-03-28 10:15:00 Chris Sibley [facility] DIFFERENTIAL BASIC METABOLIC PANEL 2023-03-28 10:15:00 Chris Sibley [facility] ESTIMATED GFR 2023-03-28 10:15:00 Chris Sibley [facility] CBC WITH PLATELET AND 2023-03-27 09:08:00 [facility] DIFFERENTIAL BASIC METABOLIC PANEL 2023-03-27 09:08:00 [facility] VANCOMYCIN LEVEL, RANDOM 2023-03-27 09:08:00 [facility] ESTIMATED GFR 2023-03-27 09:08:00 [facility] CBC WITH PLATELET AND 2023-03-26 09:53:00 [facility] DIFFERENTIAL BASIC METABOLIC PANEL 2023-03-26 09:53:00 [facility] ESTIMATED GFR 2023-03-26 09:53:00 [facility] CBC WITH PLATELET AND 2023-03-25 09:05:00 [facility] DIFFERENTIAL BASIC METABOLIC PANEL 2023-03-25 09:05:00 [facility] ESTIMATED GFR 2023-03-25 09:05:00 [facility] MANUAL DIFFERENTIAL 2023-03-25 09:05:00 [facility] CBC WITH PLATELET AND 2023-03-24 16:23:00 Adelita Rich [facility] DIFFERENTIAL BASIC METABOLIC PANEL 2023-03-24 16:23:00 [facility] 2023-03-24 16:23:[address] [facility] TRANSFUSE RED BLOOD CELLS 2023-03-23 16:26:00 [facility] TRANSFUSE RED BLOOD CELLS 2023-03-23 12:38:00 [facility] TYPE AND SCREEN 2023-03-23 10:11:00 [facility] PREPARE RBC 2023-03-23 10:11:00 [facility] CBC WITH PLATELET AND 2023-03-23 09:33:00 [facility] DIFFERENTIAL COMPREHENSIVE METABOLIC 2023-03-23 09:33:00 [facility] PANEL ESTIMATED GFR 2023-03-23 09:33:00 [facility] MANUAL DIFFERENTIAL 2023-03-23 09:33:00 [facility] ESTIMATED GFR 2023-03-23 08:45:00 [facility] TROPONIN T 2023-03-23 03:03:00 [facility] spital LACTIC ACID LEVEL, SEPSIS - 2023-03-23 03:03:00 [facility] NOW AND REPEAT 2X EVERY 3 HOURS CREATININE LEVEL, URINE, 2023-03-23 01:44:00 [facility] RANDOM SODIUM LEVEL, URINE, RANDOM 2023-03-23 01:44:00 [facility] PROTEIN, URINE, RANDOM 2023-03-23 01:44:00 [facility] URINE CULTURE 2023-03-23 00:49:00 [facility] spital URINALYSIS SCREEN AND 2023-03-23 00:24:00 [facility] MICROSCOPY, WITH REFLEX TO CULTURE LACTIC ACID LEVEL, SEPSIS - 2023-03-22 23:45:00 [facility] NOW AND REPEAT 2X EVERY 3 HOURS COMPREHENSIVE METABOLIC 2023-03-22 23:27:00 [facility] PANEL TROPONIN T 2023-03-22 23:27:00 [facility] spital CREATINE KINASE, TOTAL 2023-03-22 23:27:00 [facility] ([facility]) ESTIMATED GFR 2023-03-22 23:27:00 [facility] spital VENOUS BLOOD GAS 2023-03-22 22:41:00 [facility] ospital BLOOD CULTURE, AEROBIC & 2023-03-22 22:29:00 [facility] ANAEROBIC CBC WITH PLATELET AND 2023-03-22 22:27:00 [facility] DIFFERENTIAL LACTIC ACID LEVEL, SEPSIS - 2023-03-22 22:27:00 [facility] NOW AND REPEAT 2X EVERY 3 HOURS MANUAL DIFFERENTIAL 2023-03-22 22:27:00 [facility] VW PORTABLE 2023-03-22 22:00:[address] [facility] ECG 12-LEAD 2023-03-22 21:26:46 Chito [facility] ESTIMATED GFR 2023-03-22 21:13:00 [facility]ito [facility] ABDOMEN PELVIS WO 2023-03-22 21:10:07 [facility] CONTRAST ECG ED PRELIMINARY 2023-03-22 20:41:38 [facility] INTERPRETATION FL CRITICAL CARE 2023-03-22 20:41:38 Dale Clayton [facility] ILL/INJURED PATIENT INIT 30-74 MIN CBC WITH PLATELET AND 2022-11-02 11:12:00 [facility]FFER[facility] BASIC METABOLIC PANEL 2022-11-02 11:12:00 [facility] ESTIM[facility] GFR 2022-11-02 11:12:[address] [facility] spital CBC WITH PLATELET AND 2022-11-01 11:35:00 [facility] DIFFERENTIAL BASIC METABOLIC PANEL 2022-11-01 11:35:00 [facility] ESTIM[facility] GFR 2022-11-01 11:35:00 Camryn [facility] spital PROTEIN, URINE, RANDOM 2022-10-31 19:03:00 [facility] ALBUMIN WITH CREATININE AND 2022-10-31 19:03:00 [facility] RATIO, RANDOM URINE CREATININE LEVEL, URINE, 2022-10-31 19:03:00 [facility] RANDOM CBC WITH PLATELET AND 2022-10-31 12:10:00 [facility] DIFFERENTIAL BASIC METABOLIC PANEL 2022-10-31 12:10:00 [facility] ESTIMATED GFR 2022-10-31 12:10:00 Camryn [facility] spital CBC WITH PLATELET AND 2022-10-30 11:30:00 Camryn, [facility] DIFFERENTIAL BASIC METABOLIC PANEL 2022-10-30 11:30:00 Camryn, [facility] ESTIMATED GFR 2022-10-30 11:30:00 Nils Cowan [facility] CBC WITH PLATELET AND 2022-10-29 11:45:00 Camryn, [facility] DIFFERENTIAL BASIC METABOLIC PANEL 2022-10-29 11:30:00 Camryn, [facility] ESTIMATED GFR 2022-10-29 11:30:00 Camryn greer [facility] IR LEFT NEPHROSTOMY INITIAL 2022-10-28 23:27:00 Samir Saha [facility] harisng [facility] PLACEMENT IR RIGHT NEPHROSTOGRAM NEW 2022-10-28 23:27:00 [facility] WITH PLATELET AND 2022-10-28 11:29:00 Camryn, [facility] DIFFERENTIAL COMPREHENSIVE METABOLIC 2022-10-28 11:29:00 Camryn [facility] PANEL ESTIMATED GFR 2022-10-28 11:29:[address] [facility] spital CBC WITH PLATELET AND 2022-10-27 12:38:00 [facility] DIFFERENTIAL COMPREHENSIVE METABOLIC 2022-10-27 12:38:00 [facility] BASIC METABOLIC PANEL 2022-10-27 12:38:00 [facility] ESTIMATED GFR 2022-10-27 12:38:00 [facility] MRI PELVIS W WO CONTRAST 2022-10-26 16:51:00 Derrick siddiqui [facility] MRI ABDOMEN W WO CONTRAST 2022-10-26 16:40:00 Drerick Holt [facility] COVID-19 QUALITATIVE RT-PCR 2022-10-26 13:42:00 RehreParviz aguilar [facility] CBC WITH PLATELET AND 2022-10-26 09:30:00 [facility] DIFFERENTIAL COMPREHENSIVE METABOLIC 2022-10-26 09:30:00 [facility] PANEL PHOSPHORUS LEVEL 2022-10-26 09:30:00 [facility] CARCINOEMBRYONIC ANTIGEN 2022-10-26 09:30:00 [facility] 2022-10-26 09:30:[address] [facility] spital PROTHROMBIN TIME WITH INR 2022-10-26 09:30:[facility] 2022-10-26 09:30:[address] CHEST WO CONTRAST 2022-10-25 23:50:23 [facility] US RENAL 2022-10-25 17:30:04 [facility] URINALYSIS SCREEN AND 2022-10-25 17:01:00 [facility] MICROSCOPY, WITH REFLEX TO CULTURE SODIUM LEVEL, URINE, RANDOM 2022-10-25 17:01:00 [facility] CHLORIDE LEVEL, URINE, 2022-10-25 17:01:00 [facility] RANDOM CREATININE LEVEL, URINE, 2022-10-25 17:01:00 [facility] RANDOM URINE CULTURE 2022-10-25 16:55:[address] [facility] [address] ABDOMEN PELVIS WO 2022-10-25 14:31:42 Rehrer, [facility] CONTRAST CBC WITH PLATELET AND 2022-10-25 12:41:00 Rehrer, [facility] DIFFERENTIAL COMPREHENSIVE METABOLIC 2022-10-25 12:41:00 Rehrer, [facility] PANEL LIPASE LEVEL 2022-10-25 12:41:00 Rehrer, [facility] URINALYSIS SCREEN AND 2022-10-25 12:41:00 Rehrer, [facility] MICROSCOPY, WITH REFLEX TO CULTURE LACTIC ACID LEVEL 2022-10-25 12:41:00 Rehrer, [facility] ESTIMATED GFR 2022-10-25 12:41:00 Amador Beatty spital Jewel R. URINE CULTURE 2022-10-25 12:30:00 Rehrer, Parviz Guerra [facility] CT CHEST EXTERNAL STUDY 2022-08-16 16:25:00 Rhys Gramajo [facility] Plan of Care Planned Activity Planned Date Details Comments Source Future Scheduled 2023-03-31 Pneumococcal Vaccine: [facility] Test 10:53:42 Pediatrics (0 to 5 Years) and At-Risk Patients (6 to 64 Years) (1 - PCV) [code = Pneumococcal Vaccine: Pediatrics (0 to 5 Years) and At-Risk Patients (6 to 64 Years) (1 - PCV)] Future Scheduled 2023-03-31 Hepatitis C screening [facility] Test 10:53:42 (procedure) [code = [id number]] Future Scheduled 2023-03-31 SHINGLES VACCINES (1 Met [facility] Test 10:53:42 of 2) [code = SHINGLES VACCINES (1 of 2)] Future Scheduled 2023-03-31 COVID-19 VACCINE (5 - [facility] Test 10:53:42 Moderna series) [code = COVID-19 VACCINE (5 - Moderna series)] Future Scheduled 2023-03-31 INFLUENZA VACCINE Method [facility] Test 10:53:42 [code = INFLUENZA VACCINE] Future Scheduled 2023-01-16 Pneumococcal Vaccine: [facility] Test 20:02:08 Pediatrics (0 to 5 Years) and At-Risk Patients (6 to 64 Years) (1 - PCV) [code = Pneumococcal Vaccine: Pediatrics (0 to 5 Years) and At-Risk Patients (6 to 64 Years) (1 - PCV)] Future Scheduled 2023-01-16 Hepatitis C screening [facility] Test 20:02:08 (procedure) [code = [id number]] Future Scheduled 2023-01-16 SHINGLES VACCINES (1 Met [facility] Test 20:02:08 of 2) [code = SHINGLES VACCINES (1 of 2)] Future Scheduled 2023-01-16 COLONOSCOPY SCREENING [facility] Test 20:02:08 [code = COLONOSCOPY SCREENING] Future Scheduled 2023-01-16 COVID-19 VACCINE (5 - [facility] Test 20:02:08 Booster for Moderna series) [code = COVID-19 VACCINE (5 - Booster for Moderna series)] Future Scheduled 2023-01-16 INFLUENZA VACCINE Method [facility] Test 20:02:08 [code = INFLUENZA VACCINE] Future Scheduled 2022-12-06 Pneumococcal Vaccine: [facility] Test 08:31:10 Pediatrics (0 to 5 Years) and At-Risk Patients (6 to 64 Years) (1 - PCV) [code = Pneumococcal Vaccine: Pediatrics (0 to 5 Years) and At-Risk Patients (6 to 64 Years) (1 - PCV)] Future Scheduled 2022-12-06 Hepatitis C screening [facility] Test 08:31:10 (procedure) [code = [id number]] Future Scheduled 2022-12-06 SHINGLES VACCINES (1 Met [facility] Test 08:31:10 of 2) [code = SHINGLES VACCINES (1 of 2)] Future Scheduled 2022-12-06 COLONOSCOPY SCREENING [facility] Test 08:31:10 [code = COLONOSCOPY SCREENING] Future Scheduled 2022-12-06 INFLUENZA VACCINE Method [facility] Test 08:31:10 [code = INFLUENZA VACCINE] Future Scheduled 2022-12-06 COVID-19 VACCINE (5 - [facility] Test 08:31:10 Booster for Moderna series) [code = COVID-19 VACCINE (5 - Booster for Moderna series)] Future Scheduled 2022-11-30 Pneumococcal Vaccine: [facility] Test 08:08:13 Pediatrics (0 to 5 Years) and At-Risk Patients (6 to 64 Years) (1 - PCV) [code = Pneumococcal Vaccine: Pediatrics (0 to 5 Years) and At-Risk Patients (6 to 64 Years) (1 - PCV)] Future Scheduled 2022-11-30 Hepatitis C screening [facility] Test 08:08:13 (procedure) [code = [id number]] Future Scheduled 2022-11-30 SHINGLES VACCINES (1 Met [facility] Test 08:08:13 of 2) [code = SHINGLES VACCINES (1 of 2)] Future Scheduled 2022-11-30 COLONOSCOPY SCREENING [facility] Test 08:08:13 [code = COLONOSCOPY SCREENING] Future Scheduled 2022-11-30 INFLUENZA VACCINE Method [facility] Test 08:08:13 [code = INFLUENZA VACCINE] Future Scheduled 2022-11-30 COVID-19 VACCINE ([facility] - [facility] Test 08:08:13 Booster for Moderna series) [code = COVID-19 VACCINE (5 - Booster for Moderna series)] Future Scheduled 2022-11-16 Pneumococcal Vaccine: [facility] Test 08:53:45 Pediatrics (0 to 5 Years) and At-Risk Patients (6 to 64 Years) (1 - PCV) [code = Pneumococcal Vaccine: Pediatrics (0 to 5 Years) and At-Risk Patients (6 to 64 Years) (1 - PCV)] Future Scheduled 2022-11-16 Hepatitis C screening [facility] Test 08:53:45 (procedure) [code = [id number]] Future Scheduled 2022-11-16 SHINGLES VACCINES (1 Met [facility] Test 08:53:45 of 2) [code = SHINGLES VACCINES (1 of 2)] Future Scheduled 2022-11-16 [facility]ON[facility]ING [facility] [facility] Test 08:53:45 [code = COLONOSCOPY SCREENING] Future Scheduled 2022-11-16 INFLUENZA VACCINE [facility] Test 08:53:45 [code = INFLUENZA VACCINE] Future Scheduled 2022-11-16 COVID-19 VACCINE (5 - [facility] Test 08:53:45 Booster for Moderna series) [code = COVID-19 VACCINE (5 - Booster for Moderna series)] Future Scheduled 2022-09-26 Hepatitis C screening [facility] Test 23:54:04 (procedure) [code = 370018587] Future Scheduled 2022-09-26 COLONOSCOPY SCREENING [facility] Test 23:54:04 [code = COLONOSCOPY SCREENING] Future Scheduled 2022-09-26 SHINGLES VACCINES (1 Met [facility] Test 23:54:04 of 2) [code = SHINGLES VACCINES (1 of 2)] Future Scheduled 2022-09-26 INFLUENZA VACCINE Method is Hospital Test 23:54:04 [code = INFLUENZA VACCINE] Future Scheduled 2022-09-26 COVID-19 VACCINE (5 - [facility] Test 23:54:04 Booster for Moderna series) [code = COVID-19 VACCINE (5 - Booster for Moderna series)] Future Scheduled 2022-09-26 Hepatitis C screening [facility] Test 23:54:04 (procedure) [code = [id number]] Future Scheduled 2022-09-26 COLONOSCOPY SCREENING [facility] Test 23:54:04 [code = COLONOSCOPY SCREENING] Future Scheduled 2022-09-26 SHINGLES VACCINES (1 [facility] Test 23:54:04 of 2) [code = SHINGLES VACCINES (1 of 2)] Future Scheduled 2022-09-26 INFLUENZA VACCINE [facility] Test 23:54:04 [code = INFLUENZA VACCINE] Future Scheduled 2022-09-26 COVID-19 VACCINE (5 - [facility] Test 23:54:04 Booster for Moderna series) [code = COVID-19 VACCINE (5 - Booster for Moderna series)] Future Scheduled 2022-08-26 HEPATITIS B VACCINES [facility] Test 02:17:57 (1 of 3 - 3-dose series) [code = HEPATITIS B VACCINES (1 of 3 - 3-dose series)] Future Scheduled 2022-08-26 Hepatitis C screening [facility] Test 02:17:57 (procedure) [code = [id number]] Future Scheduled 2022-08-26 COLONOSCOPY SCREENING [facility] Test 02:17:57 [code = COLONOSCOPY SCREENING] Future Scheduled 2022-08-26 SHINGLES VACCINES (1 [facility] Test 02:17:57 of 2) [code = SHINGLES VACCINES (1 of 2)] Future Scheduled 2022-08-26 INFLUENZA VACCINE Method [facility] Test 02:17:57 [code = INFLUENZA VACCINE] Future Scheduled 2022-08-26 COVID-19 VACCINE (5 - [facility] Test 02:17:57 Booster for Moderna series) [code = COVID-19 VACCINE (5 - Booster for Moderna series)] Encounters Start End Encounter Admission Attending Care Care Encounter Source Date/Time Date/Time Type Type Clinicians Facility Department ID 2022-09-15 Inpatient Tarsha Mancera ABEU RTX [id number] [facility] 00:08:00 00 [facility] 2022-02-13 Inpatient Tarsha Mancera ABEU RTX [id number] [facility] 15:50:00 64 [facility] 2022-01-14 Inpatient Tarsha Butts VINCEWU RTX [id number] [facility] 16:09:00 81 [facility] 2023-04-13 2023-04-13 Inpatient MARQUIS MauricioLalo ventura [facility] LA00 [id number] [facility] 15:00:00 15:00:00 19 [facility] 2023-03-22 2023-03-28 [facility] [place] 1.2.840.1 [id number] Methodi 15:37:00 19:03:00 Encounter Eladio Stafford 20286.1.[address] Shanika Fritz K. 3.430.2.7 [facility] [place] .3.443850 l .8 2023-03-22 2023-03-28 Inpatient [facility] [id number] 57 [place] 00:00:00 00:00:[address]IS [address] 2023-03-22 2023-03-22 Travel 1.2.840.1 1.2.439.518 9926 [id number] Methodi 00:00:00 00:00:[address] 3.430.2.7 0.2.7.3.698 [facility] .3.756437 084.8 l .8 2023-03-17 2023-03-17 Outpatient SHERYL BASS [facility] [id number] [facility] 15:20:00 15:20:00 SHERYL CHARLES [facility] 2022-12-20 2022-12-20 Outpatient GC_BCSS_How PRIV PRIV [id number] [facility] 00:00:00 00:00:00 ell_Dan1 [id number] Medic al 2022-12-16 2022-12-16 Outpatient GC_BCSS_How PRIV PRIV 267 [id number] [facility] 00:00:00 00:00:00 ell_Dan1 [id number] Medic al 2022-12-16 2022-12-16 [facility] 1.2.338.[address] [facility] 00:00:00 00:00:00 [facility] 350.1.13.10 isis garcia [place] 4.2.7.2.686 Ramón as JO ANN?BLEA [id number] [address] MEDICAL OFFICE BUILDING 2022-12-15 2022-12-15 [facility] [id number] [facility] 15:20:00 16:12:20 [facility] 2022-12-15 2022-12-15 Office [facility] 1.2.840.114 [id number] [facility] 15:20:00 16:12:20 Visit [facility] 350.1.13.10 itlilian garcia [place] 4.2.7.2.686 Ramón as JO ANN?BLEA [id number] [address] MEDICAL OFFICE [facility] 2022-12-13 2022-12-13 Outpatient GC_BCSS_How PRIV PRIV 267 [id number] [facility] 00:00:00 00:00:00 ell_Dan1 [id number] Medic al 2022-11-23 2022-11-23 Travel 1.2.840.1 1.2.193.621 1961 [id number] Methodi 00:00:00 00:00:[address] 3.430.2.7 0.2.7.3.698 Ho spita .3.729539 084.8 l .8 2022-11-23 2022-11-23 Travel 1.2.840.1 1.2.921.398 1343 [id number] Methodi 00:00:00 00:00:[address] 3.430.2.7 0.2.7.3.698 Ho spita .3.900237 084.8 l .8 2022-10-25 2022-11-02 [facility] Rehrer Parviz Charlie 1.2.840.1 104 [id number] Methodi 05:01:00 15:19:00 Encounter Nils Cowan 87254.1.[address] 3.430.2.7 Hospit a .3.882001 l .8 2022-10-25 2022[facility]11-02 [facility] Charlie 1.2.840.1 104 [id number] Methodi 05:01:00 15:19:00 Encounter Nils Cowan 41454.1.[address] 3.430.2.7 Hospit a .3.923258 l .8 2022-10-25 2022-10-25 Travel 1.2.840.1 1.2.292.487 7513 [id number] Methodi 00:00:00 00:00:[address] 3.430.2.7 0.2.7.3.698 Ho spita .3.783438 084.8 l .8 2022-10-25 2022-10-25 Travel 1.2.840.1 1.2.314.860 0558 [id number] Methodi 00:00:00 00:00:[address] 3.430.2.7 0.2.7.3.698 Ho spita .3.028143 084.8 l .8 2022-09-01 2022-09-14 Outpatient MARQUIS Mancera Tarsha [facility] [id number] [facility] 09:25:00 00:00:00 94 [facility] 2022-08-25 2022-08-25 Hospital Rox, 1.2.840.1 [id number] [id number] Methodi 08:26:09 23:59:00 Encounter Rhys 38936.1.[address] Jeremy 3.430.2.7 Hospit a .3.543332 l .8 2022-08-25 2022-08-25 Hospital [facility]ox, 1.2.840.1 [id number] [id number] Methodi 08:26:09 23:59:00 Encounter Rhys 27859.1.[address] Jeremy 3.430.2.7 Hospit a .3.807429 l .8 2022-04-25 2022-04-25 Outpatient MARQUIS [facility]cer[facility]arsha [facility] [id number] [facility] 09:28:00 09:28:00 [id number] [facility] 2022-04-25 2022-04-25 Outpatient MARQUIS Mancera Tarsha [facility] [id number] [facility] 09:28:00 09:28:00 74 [facility] 2022-01-14 2022-02-12 Outpatient EL Oh, Tarsha HCAWU RTX [id number] [facility] 08:34:00 00:00:00 74 [facility] 2021-12-14 2022-01-13 Inpatient EL Oh, Tarsha CLARKEWU RTX [id number] [facility] 14:32:00 00:00:00 52 [facility] 2021-12-27 2021-12-27 Inpatient EL Oh, Tarsha CLARKEWU SUGL [id number] [facility] 10:30:00 09:30:00 05 [facility] 2021-12-21 2021-12-21 Outpatient EL Oh, Tarsha HCAWU SUGL [id number] [facility] 09:11:00 09:11:00 36 [facility] 2021-10-18 2021-11-15 Inpatient EL Oh, Tarsha HCAWU RTX [id number] [facility] 11:23:00 00:00:00 91 [facility] 2021-09-02 2021-09-14 Outpatient EL Oh, Tarsha HCAWU RTX [id number] [facility] 10:13:00 00:00:00 86 [facility] 2021-09-08 2021-09-08 Outpatient EL Oh, Tarsha CLARKEWU SUGL [id number] [facility] 08:46:00 08:46:00 74 [facility] 2021-08-06 2021-08-06 Outpatient DALECHENABIGAILK [facility] [id number] [place] 00:00:00 00:00:[address] 2021-08-04 2021-08-04 Outpatient DERRICK HOLT [facility] [id number] [place] 00:00:00 00:00:[address] 2021-08-01 2021-08-03 Outpatient LAILA [facility] 579 [id number] [place] 00:00:00 00:00:00 JENNY [address] 2021-07-23 2021-07-23 Outpatient JONATHONABIGAILK [facility] [id number] [place] 00:00:00 00:00:[address] 2021-07-23 2021-07-23 Outpatient DERRICK HOLT [facility] [id number] [place] 00:00:00 00:00:[address] 2021-07-21 2021-07-21 Outpatient DERRICK HOLT [facility] [id number] [place] 00:00:00 00:00:[address] 2021-07-21 2021-07-21 Outpatient DERRICK HOLT [facility] [id number] [id number] [place] 00:00:00 00:00:[address] 2021-06-28 2021-07-06 Inpatient NILS COWAN [facility] 078 [id number] [place] 00:00:00 00:00:[address] 2021-06-02 2021-06-02 Outpatient JONATHAN COVINGTON [facility] [id number] [id number] [place] 00:00:00 00:00:[address] 2021-04-26 2021-04-26 Emergency X [facility] ERT [id number] [facility] 16:39:00 16:39:00 [facility] Results Test Description Test Time Test Comments Results Result Comments Source Prepare RBC, 2 Units 2023-03-23 16:16:00 Test Item Value Reference Range Interpretation Comme nts Product name (test code = 25) Red Cells AS1 Leukored Irrad Unit number (test code = 6288482) [id number] Product code (test code = 3092) [id number] Dispense status (test code = 24) Transfused Blood expiration date (test code = 302) [id number] Blood type code (test code = 308) 6200 Blood type (test code = 1314) A POSITIVE Compatibility (test code = 6400) Compatible [facility] 12 [id number] 03:42:02 Test Item Value Reference Range Interpretation Comments Ventricular rate (test 121 code = 253) Atrial rate (test code 121 = 255) FL interval (test code 156 = 266) QRSD interval (test 92 code = 260) QT interval (test code 306 = 264) QTC interval (test code 434 = 265) P axis 1 (test code = 65 267) QRS axis 1 (test code = -37 268) T wave axis (test code 99 = 270) EKG impression (test Sinus tachycardia with code = 273) occasional premature ventricular complexes-Left axis deviation-Minimal voltage criteria for LVH, may be normal variant ( Lebron product )-T wave abnormality, consider lateral ischemia-Abnormal ECG-No previous ECGs available-Electronical ly Signed By Kyaw PRINCE Apoor ([id number]) on 03/22/2023 10:41:52 PM [facility] VENOUS BLOOD [id number] 21:59:00 Test Item Value Reference Range Interpretation Comments POC VENOUS BLOOD 7.340 pH units 7.26-7.43 N GAS PH (test code = POCPHV) POC VENOUS BLOOD 54.2 mmHg e 35.0-45.0 H GAS PCO2 (test code = ZQTGNC8V) POC VENOUS BLOOD 38.8 mmHg e 80.0-100.0 LL GAS PO2 (test code = UMNVV8E) POC TCO2 VENOUS 28.6 MMOL/L e 24.0-30.0 N (test code = TLMCYR9V) POC HCO3 VENOUS 29.2 MMOL/L e 22.0-26.0 H (test code = NJXFKJ9M) POC BASE EXCESS 2.7 MMOL/L e See_Comment N [Automated VENOUS (test code = message] The system POCBEV) which generated this result transmitted reference range : -3.0 to 3.0. Th e reference range was not used to interpret this result as normal/abnormal . POC O2 SATURATION 69 % e 95-100 L VENOUS (test code = GHZP8QZ) POC SAMPLE SOURCE Venous Descript Specimen (test code = POCSAMPLE) CBC W/AUTO [id number] 10:20:00 Test Item Value Reference Range Interpretation Comments WHITE BLOOD CELL (test code = 15.1 K/mm3 3.5-11.0 H WBC) RED BLOOD CELL (test code = 3.80 M/mm3 4.70-6.10 L RBC) HEMOGLOBIN (test code = HGB) 8.8 G/DL 12.3-15.9 L HEMATOCRIT (test code = HCT) 28.1 % 35.8-46.7 L MEAN CELL VOLUME (test code = 73.9 Fl 86.3-98.9 L MCV) MEAN CELL HGB (test code = MCH) 23.2 pg 28.9-34.4 L MEAN CELL HGB CONCETRATION 31.3 G/DL 32.1-34.5 L (test code = MCHC) RED CELL DISTRIBUTION WIDTH 18.9 SD 11.5-14.5 H (test code = RDW) PLATELET COUNT (test code = 476 K/mm3 150-450 H PLT) MEAN PLATELET VOLUME (test code 9.60 fL 7.0-9.6 N = MPV) NEUTROPHIL % (test code = NT%) 85.4 % 40-76 H IMMATURE GRANULOCYTE % (test 2.2 % 0.0-5.0 N code = IG%) LYMPHOCYTE % (test code = LY%) 5.5 % 20.5-51.1 L MONOCYTE % (test code = MO%) 5.8 % 1.7-9.3 N EOSINOPHIL % (test code = EO%) 0.7 % 0.0-6.0 N BASOPHIL % (test code = BA%) 0.4 % 0.0-2.0 N NUCLEATED RBC % (test code = 0.0 /100WBC% 0.0-1.0 N NRBC%) NEUTROPHIL # (test code = NT#) 12.9 K/mm3 1.8-7.6 H IMMATURE GRANULOCYTE # (test 0.33 x10 3/uL 0.00-0.03 H code = IG#) LYMPHOCYTE # (test code = LY#) 0.8 K/mm3 0.6-3.0 N MONOCYTE # (test code = MO#) 0.9 K/mm3 0.2-1.5 N EOSINOPHIL # (test code = EO#) 0.1 K/mm3 0.0-0.4 N BASOPHIL # (test code = BA#) 0.1 K/mm3 0.0-0.2 N NUCLEATED RBC # (test code = 0.0 K/mm3 0.00-0.01 N NRBC#) MANUAL DIFF REQUIRED (test code NO DIFF/SCN CRITERIA = MDIFF) BASIC METABOLIC [id number] 10:12:00 Test Item Value Reference Range Interpretation Comments SODIUM (test code = 141 mmol/L 134-147 N NA) POTASSIUM (test 4.4 mmol/L 3.4-5.0 N code = K) CHLORIDE (test code 104 mmol/L 100-108 N = CL) CARBON DIOXIDE 31 mmol/L 21-32 N (test code = CO2) ANION GAP (test 6.0 GAP calc 4.0-15.0 N code = GAP) GLUCOSE (test code 96 MG/DL 70-110 N = GLU) BLOOD UREA NITROGEN 8 MG/DL 7-18 N (test code = BUN) GLOMERULAR 49 estGFR >60 L The Glomerular FILTRATION RATE Filtration R ate is a (test code = GFR) calculated parameterbased on serum Creatinin e, patient age and sex. GFR valuesless than 60 mL/min/1.73 squ are meters are dl cative ofChronic Kidne y Disease. Values less than 15 mL/min/1.73squa re meters indicate Kidney failure. The calculation for GFR is based on the CK D-EPI (2020) calculat ion. This formulais race indifferent and is the recommended for shayy for GFRby the N ational Kidney Foundati on for Adults.The GFR will not calculate i f the sex is unknown or if thepatient's ag e is <18 years. CREATININE (test 1.6 MG/DL 0.8-1.3 H code = CREAT) CALCIUM (test code 9.4 MG/DL 8.5-10.1 N = CA) PROTHROMBIN [id number] 09:00:00 Test Item Value Reference Range Interpretation Comments PT PATIENT (test 12.8 SECONDS 9.3-12.9 N code = PTP) INTERNATIONAL NORMAL 1.15 INR Unit 0.8-1.2 N TARGE T INR BY RATIO (test code = INDICATIO N Indication INR) INR1. Prophylax is of venous thrombos is 2.0 - 3.0 (orthoped ic surgery), Proph ylaxis of venous throm bosis (other than hig h-risk surgery), Treat ment of Deep Vein Thrombosis/Pulm onary Embolism, Preve ntion of systemic emb olism - Tissue heart va lves, Acute Myocardia l Infarction (to prevent systemic emboli sm), Valvular heart disease, Acute Myocardial Infa rction (to prevent sys temic embolism), Valv ular heart disease, Atrial Fibrillation, Bileaflet mecha nical valve in aortic position.2. Mec hanical prosthetic valv es (high risk), 2. 5 - 3.5 Presence of Lup us Anticoagulant o r Antiphospholipi d Antibodies, Pre vention of systemic emb olism - Acute Myocardia l Infarction (to prevent recurrent infar ct). SARS-CoV-2 (COVID-19) RNA [Presence] in Respiratory specimen by YVROSE with probe [id number] 11:43:33 Test Item Value Reference Range Interpretation Comments SARS-CoV-2 (COVID-19) RNA Not detected [Presence] in Respiratory specimen by YVROSE with probe detection (test code = 62754-7) Whether patient is employed in a Unknown healthcare setting (test code = 72037-8) Whether the patient has symptoms Unknown related to condition of interest (test code = 41249-1) Whether the patient was Unknown hospitalized for condition of interest (test code = 32968-4) Whether the patient was admitted Unknown to intensive care unit (ICU) for condition of interest (test code = 40327-7) Whether patient resides in a Unknown congregate care setting (test code = 81636-9) status (test code = Unknown 47121-0) Date and time of symptom onset Unknown (test code = 76156-9) [facility]2023-01-10 18:02:00 Test Item Value Reference Range Interpretation Comments Urine culture (test SEE COMMENT Bacteriu rony screen code = 9411238) negative. [facility]2023-01-10 18:02:00 Test Item Value Reference Range Interpretation Comments Urine culture (test SEE COMMENT Bacteriu rony screen code = 1502688) negative. [facility]2023-01-10 18:02:00 Test Item Value Reference Range Interpretation Comments Urine culture (test SEE COMMENT Bacteriu rony screen code = 9620578) negative. [facility]2023-01-10 18:02:00 Test Item Value Reference Range Interpretation Comments Urine culture (test SEE COMMENT Bacteriu rony screen code = 0641128) negative. [facility]- PET/CT TUMOR SK [id number] 14:28:00 [facility] 1965 Sex: M Patient Name: GENO PRASAD Unit No: [id number] EXAMS: CPT CODE: [id number] PET/CT TUMOR [facility] MIDTH 24497 EXAMINATION: - PET/CT TUMOR SK MIDTH COMPARISON: [...] unclear, as the drain follows the course ofthe [facility] [facility] NAME: GENO PRASAD [address] [facility] 200 PHYS: [place] [address] : 1965 AGE: 56 SEX: M LOC: HANNAH PHONE #: [phone] EXAM DATE: 12/21/2021 STATUS: REG CLI FAX #: [phone] RADIOLOGY NO: PAGE 1 SignedReport (CONTINUED) Patient Name: GENO PRASAD Unit No: [id number] EXAMS: CPT CODE: [id number] PET/CT TUMOR SK BS MIDTH 60217 <Continued> sigmoid colon. Uptake in the more [...] Areas of osteoarthritic uptake are seen around theright shoulder, both hips and in the facet joints of the lower lumbar spine. No suspicious bony lesio ns are identified. IMPRESSION: Interval postsurgical changes as [...] (1428) JenniferR.AG38 Orig Print D/T: S: 12/21/2021 (3185) [facility] NAME: GENO PRASAD [address] [facility] 200 PHYS: [place] [address] : AGE: 56 SEX: M LOC: HANNAH PHONE #: [phone] EXAM DATE: 12/21/2021 STATUS: REG CLI FAX #: [phone] RADIOLOGY NO: PAGE 2 Signed [id number] 09:50:00 Test Item Value Reference Range Interpretation Comments GLUCOSE (test code = GLU) 98 MG/DL 79-105 N Comments to Repair Service Clerk: FOR PETIs this a LINE draw? N- PET/CT TUMOR SK [id number] 13:41:00 [facility] : 1965 Sex: M Patient Name: GENO PRASAD Unit No: [id number] EXAMS: CPT CODE: [id number] PET/CT TUMOR [facility] [address] EXAM:PET/CT scan INDICATION: MALIGNANT NEOPLASM OF RECTUM COMPARISON: None at this time LOCATION: [facility] TECHNIQUE: Approximately 60 minutes following the intravenous administration of 11.49 mCi F-18 FDG, a PET scan was obtained from the skull vertex to the mid thigh. Axial noncontrast nondiagnostic CT imageswere also obtained for anatomic localization. Glucose level [...] CT scan. There are small right axillary lymphnodes, all measuring less than a centimeter in diameter, which demonstrate minimal hypermetabolic act ivity. The maximum SUV is 1.4. There is diffuse increased tracer activity involving the soft tissuesadjacent to the right humeral head, consistent with [...] This measures about 3.5 cm in diameter. Thisfinding is consistent with the given history of [...] spine without and with contrast is recommended. [facility] NAME: GENO PRASAD [address] [place] [address] 200 PHYS: [place] [address] : 1965 AGE: 56 SEX: M LOC: Z.ZNUC PHONE #: [phone] EXAM DATE: 09/08/2021 STATUS: DEP CLI FAX #: [phone] RADIOLOGY NO: PAGE 1 Signed Report (CONTINUED) Patient Name: GENO RPASAD Unit No:[id number] EXAMS: CPT CODE: [id number] PET/CT TUMOR SK BS MIDTH 76368 <Continued> There are small lymph nodes in [...] Linnea Vasquez RT(N) Transcrpt Date/Tm/Trnsp: 09/10/2021 (1341) [email or web address] Orig Print D/T: S: 09/10/2021 (1494) [facility] NAME: GENO PRASAD [address] [facility] PHYS: [place] [address] : 1965 AGE: 56 SEX: M LOC: HANNAH PHONE #: [phone] EXAM DATE: 09/08/2021 STATUS: DEP CLI FAX #: [phone] RADIOLOGY NO: PAGE 2 Signed [id number] 09:44:00 Test Item Value Reference Range Interpretation Comments GLUCOSE (test code = GLU) 86 MG/DL 79-105 N SARS-CoV-2 (COVID-19) RNA [Presence] in Respiratory specimen by YVROSE with probe [id number] 18:54:41 Test Item Value Reference Range Interpretation Comments SARS-CoV-2 (COVID-19) RNA Not detected Not-Detected [Presence] in Respiratory specimen by YVROSE with probe detection (test code = 15053-8) Whether patient is employed in a healthcare setting (test code = 26771-9) Whether the patient has symptoms related to condition of interest (test code = 86982-5) Patient was hospitalized because of this condition (test code = 44219-3) Whether the patient was admitted to intensive care unit (ICU) for condition of interest (test code = 21125-2) Whether patient resides in a congregate care setting (test code = 83207-6) status (test code = 66721-4) BERNARDO SIMPSONRS-CoV-2 (COVID-19) RNA [Presence] in Respiratory specimen by YVROSE with probe [id number] 16:30:19 Test Item Value Reference Range Interpretation Comments SARS-CoV-2 (COVID-19) RNA Not detected Not-Detected [Presence] in Respiratory specimen by YVROSE with probe detection (test code = 59031-0) Whether patient is employed in a healthcare setting (test code = 01924-0) Whether the patient has symptoms related to condition of interest (test code = 46593-4) Patient was hospitalized because of this condition (test code = 94536-9) Whether the patient was admitted to intensive care unit (ICU) for condition of interest (test code = 95727-2) Whether patient resides in a congregate care setting (test code = 70508-9) [facility] Notes Date/Time Note Provider Source 2022-09-01 11:09:00-00:00 [id number] [facility] [place] of: [facility] [address] [place] [address] PATIENT NAME: GENO PRASAD ADMIT DATE: 09/01/22 ACCOUNT NO: [id number] ROOM NO: AGE: 57 REPORT TYPE: ePROGRESS NOTE RADIATION ONC SEX: M ADMITTING PHYSICIAN: ATTENDING PHYSICIAN:Tarsha Mancera MD Patient MR#: [id number] Date of Service: 09/01/2022 Patient Name: GENO PRASAD Patient : 1965 Patient MR#: [id number] Physician: Tasrha Mancera M.D. Follow-Up Note Diagnosis: C20 - malignant neoplasm of rectum Narrative: MR. PRASAD is a pauline 57 year old gentleman who returns for routine follow-up since completing chemoradiatio n for locally advanced rectal carcinoma in January 2022. He is using his colosto my without issues. Rare mucus seen from rectum. No nausea or neuropathy. He riley s three more cycles of chemotherapy to finish by late September. He anti cipates surgery in November 2021. Dr. Vargas s recent notes indicate rising CEA, exact value not given. CT chest/abdomen/pelvis on 08/16/22 shows stable rec angella mass measuring 4.3 x 3 x 4.2 cm with no new adenopathy or distant metasta ses. Review of Systems: No complaints pertaining to v ision, hearing, mouth or throat. Denies cardiovascular, respiratory, musc uloskeletal, psychiatric or neurological complaints. No skin or allergy issu es noted. Denies urinary or gastrointestinal complaints; colostomy. Denies u nexplained weight loss. Performance Status: ECOG 0 Toxicities: Anorexia - None, Dermatitis radiation - none, Di arrhea - none, Erectile dysfunction - none, Fatigue - none, Hematuria - none, Lymphedema - none, Pelvic pain - none, Proctitis - none, Rectal fi stula - none, Rectal mucositis - none, Rectal pain - none, Rectal ulcer - none, Urinary frequency - none, Urinary incontinence - none, Urinary retention - none, U rinary tract pain - none, Urinary urgency - none, Weight loss - none. Physical Exam: Performed on 09/01/2022 10:45 AM BMI - 38.311 kg/m2 (high)-, Height - 70 in-, Ric ght - 267 lbs-, Fatigue - 0-, Pain - 0-, Temperature - 99 f-, Pulse - 95 /min- and O2 Sat - 99 %-. He is very pleasant and in no distress. Neurological exam is non-focal with CN PATIENT NAME: GENO PRASAD 994 2-12 grossly intact. Heart is RRR. Lungs CTA erlinda aterally. Abdomen soft and non-tender, colostomy. Rectal exam deferred in v iew of recent CT scan. Impression Recommendation: MR. PRASAD is clini josefina stable while receiving ongoing chemotherapy and radiographica lly stable with rectal tumor approximately 4cm in maximum dimension. Return f or follow-up in 4 months. End of Treatment Date: 01/2022 Sincerely, Electronically signed by: Tarsha Mancera M.D. on 08/16 11:13:58 AM Cc: Bro Vargas M.D. [address] [place] [address] - - Page 2 of 2 Electronically Signed by Tarsha Mancera MD on 09/01 at 1114 PATIENT NAME: GENO PRASAD 994 2022-09-01 10:57:00-00:00 [id number] [facility] [place]: [place] [address] PATIENT NAME: GENO PRASAD ADMIT DATE: 09/01/22 ACCOUNT NO: [id number] ROOM NO: AGE: 57 REPORT TYPE: ePHYSICIAN ORDER RADIATION ONC SEX: M ADMITTING PHYSICIAN: ATTENDING PHYSICIAN:Tarsha Mancera MD PHYSICIAN ORDER SCAN SHEET Department of Radiation Oncology [facility] Patient: GENO PRASAD : 1965 MR#: [id number] Physician: Tarsha Mancera M.D. Date: 09/01/2022 Referring Physician: Bro Vargas M.D. 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 on 09/15/2022 2:56:10 PM Electronically Signed by Tarsha Mancera MD on 09/15 at 1456 PATIENT NAME: GENO PRASAD 994 2022-04-25 09:42:00-00:00 [id number] [facility] [place]: [place] [address] PATIENT NAME: GENO PRASAD ADMIT DATE: 04/25/22 ACCOUNT NO: [id number] ROOM NO: AGE: 56 REPORT TYPE: ePHYSICIAN ORDER RADIATION ONC SEX: M ADMITTING PHYSICIAN: ATTENDING PHYSICIAN:Tarsha Mancera MD PHYSICIAN ORDER SCAN SHEET Department of Radiation Oncology [facility] Patient: GENO PRASAD : 1965 MR#: [id number] Physician: Tarsha Mancera M.D. Date: 04/25/2022 Referring Physician: Bro Vargas M.D. 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 on 04/25/2022 11:24:45 AM Electronically Signed by Tarsha Mancera MD on 04/25 at 1124 PATIENT NAME: GENO PRASAD 374 2022-04-25 09:40:00-00:00 [id number] [facility] of: [place] [id number] PATIENT NAME: GENO PRASAD ADMIT DATE: 04/25/22 ACCOUNT NO: [id number] ROOM NO: AGE: 56 REPORT TYPE: ePROGRESS NOTE RADIATION ONC SEX: M ADMITTING PHYSICIAN: ATTENDING PHYSICIAN:Tarsha Mancera MD Patient MR#: [id number] Date of Service: 04/25/2022 Patient Name: GENO PRASAD Patient : 1965 Patient MR#: [id number] Physician: Tarsha Mancera M.D. Follow-Up Note Diagnosis: C20 - malignant neoplasm of rectum, Narrative: MR. PRASAD is a pauline 56 year old who returns for routine follow-up since completing preop chemoradiation for locally advanced rectal carcinoma 3 months ago. He continues on adjuvant chemotherapy with restaging scans planned for June. He denies abdominal pain, no nausea. Colostomy bag has no issues. He has rejoin ed a gym two weeks ago to resume exercise and feels good. 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 Recent Radiology Test Results: PET/CT in 06/2022. Pelvic MRI per Dr. Gramajo s note to be done prior to surgery this Fall. Review of Systems: No complaints pertaining to v ision, hearing, mouth or throat. Denies cardiovascular, respiratory, musc uloskeletal, psychiatric or neurological complaints. No skin or allergy issu es noted. Denies urinary or gastrointestinal (colostomy) complaints. Denies unexplained weight loss. Performance Status: ECOG 0 Toxicities: Anorexia - None, Dermatitis radiation - none, Di arrhea - none, Erectile dysfunction - none, Fatigue - none, Hematuria - none, Lymphedema - none, Pelvic pain - none, Proctitis - none, Rectal fi stula - none, Rectal mucositis - none, Rectal pain - none, Rectal ulcer - none, Urinary frequency - none, Urinary incontinence - none, Urinary retention - none, U rinary tract pain - none, Urinary urgency - none, Weight loss - none. Physical Exam: Performed on 04/25/2022 9:35 AM BMI - 31.94 kg/m2 (high)-, Height - 70 i n-, Weight - 222.6 lbs-, Fatigue - 0-, Pain - 0-, Temperature - 98 f-, Pulse - 76 /min-, O2 Sat - 100 %- and BP - 132/ 78 mm(hg) - ;. PATIENT NAME: GENO PRASAD 374 He is very pleasant and in no distress. Neck exa mination is negative for cervical, supraclavicular or infraclavicular renee nopathy bilaterally. Neurological exam is non-focal with CN 2-12 gabriela sly intact. Heart is RRR. Lungs CTA bilaterally. Abdomen soft and non-tend er, clean colostomy bag. Impression Recommendation: MR. PRASAD is clini josefina stable, receiving adjuvant chemotherapy with planned restaging ana ging in the Fall before Dr. Gramajo takes him for surgery. Advised vitamin B 12 supplement for neuropathy. Sincerely, Electronically signed by: Tarsha Mancera M.D. on 04/25 9:51:22 AM Cc: Bro Vargas M.D. [address] [place] [address] - - Page 2 of 2 Electronically Signed by Tarsha Mancera MD on 04/25 at 0951 PATIENT NAME: GENO PRASAD 5374 2022-01-31 11:41:00-00:00 [id number] [facility] [place]: [place] [address] PATIENT NAME: GENO PRASAD ADMIT DATE: 01/14/22 ACCOUNT NO: [id number] ROOM NO: AGE: 56 REPORT TYPE: ePHYSICIAN ORDER RADIATION ONC SEX: M ADMITTING PHYSICIAN: ATTENDING PHYSICIAN:Tarsha Mancera MD PHYSICIAN ORDER SCAN SHEET Department of Radiation Oncology [facility] Patient: GENO PRASAD : 1965 MR#: [id number] Physician: Tarsha Mancera M.D. Date: 01/31/2022 Referring Physician: Bro Vargas M.D. 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 on 02/01/2022 10:25:38 AM Electronically Signed by Tarsha Mancera MD on 02/01 at 1025 PATIENT NAME: GENO PRASAD 074 2022-01-19 13:17:00-00:00 [id number] [facility] [place] of: [facility] [address] [place] [address] PATIENT NAME: GENO PRASAD ADMIT DATE: 01/14/22 ACCOUNT NO: [id number] ROOM NO: AGE: 56 REPORT TYPE: ePROGRESS NOTE RADIATION ONC SEX: M ADMITTING PHYSICIAN: ATTENDING PHYSICIAN:Tarsha Mancera MD Patient MR#: [id number] Date of Service: 01/19/2022 Patient Name: GENO PRASAD Patient : 1965 Patient MR#: [id number] Physician: Tarsha Mancera M.D. Weekly OTV Note Diagnosis: C20 - Malignant neoplasm of rectum, S tage IIIB, T3, N1, M0 Treatment Summary: Course: C1 Rectal + LN's Treatment Site: Rectal + LN's Ref. ID: Rectal Energy: 6X Dose/Fx (cGy): 180 #Fx: 18 / 18 Dose Correction (cGy): 0 Total Dose (cGy): 3,240 Start Date: 09/20/2021 End Date: 10/18/2021 Elapsed Days: 28 Course: C1 Rectal + LN's Treatment Site: RectalLNResim Ref. ID: Rectal Energy: 6X Dose/Fx (cGy): 200 #Fx: 7 / 7 Dose Correction (cGy): 0 Total Dose (cGy): 1,400 Start Date: 01/05/2022 End Date: 01/14/2022 Elapsed Days: 9 Course: C1 Rectal + LN's Treatment Site: Rectal Boost Ref. ID: Rectal Bst Energy: 6X PATIENT NAME: GENO PRASAD 074 Dose/Fx (cGy): 250 #Fx: 2 / 3 Dose Correction (cGy): 0 Total Dose (cGy): 500 Start Date: 01/17/2022 End Date: 01/18/2022 Elapsed Days: 1 Narrative: No complaints. Toxicities: Anorexia - None, Dermatitis radiatio n - none, Diarrhea - none, Erectile dysfunction - none, Fatigue - none, Hem aturia - none, Lymphedema - none, Pelvic pain - none, Proctitis - none, Rect al fistula - none, Rectal mucositis - none, Rectal pain - none, Re ctal ulcer - none, Urinary frequency - none, Urinary incontinence - none, Urinary retention - none, Urinary tract pain - none, Urinary urgency - none, Weight loss - no ne. Physical Examination: Vital signs are Performed on 01/19/2022 1:08 PM BMI - 26.447 kg/m2 (high)-, Height - 72 in-, Ric ght - 195 lbs-, Fatigue - 0-, Pain - 0-, Temperature - 97.7 f-, Pulse - 77 /min-, Respiration - 16 /min-, O2 Sat - 100 %- and BP - 114/ 74 mm(hg) - ;.. Patie nt is alert and oriented x 3, in no distress. Abdomen soft and non-tender with two ostomies. Lungs clear bilaterally. Heart RRR. Neurologic exam non-foca l. Impression Recommendation: Mr. PRASAD is stabl e. Continue present management. See Dr. Gramajo for surgical plans a fter 4 weeks pelvic rest. RTC in 3 months. The patient s dosimetry treatment plan and mickey l images have been reviewed and approved without modification. Sincerely, Electronically signed by: Tarsha Mancera M.D. on 2021 1:18:[address] [place] [address] - - Page 2 of 2 Electronically Signed by Tarsha Mancera MD on 01/19 at 1318 PATIENT NAME: GENO PRASAD 074 2021-12-31 14:52:00-00:00 [phone] [facility] [place]: [place] [address] PATIENT NAME: GENO PRASAD ADMIT DATE: 12/14/21 ACCOUNT NO: [id number] ROOM NO: AGE: 56 REPORT TYPE: ePROCEDURE NOTE RADIATION ONC SEX: M ADMITTING PHYSICIAN: ATTENDING PHYSICIAN:Tarsha Mancera MD Patient MR#: <Patient Id 1> Date of Service: 12/31/2021 Patient Name: GENO PRASAD Patient : 1965 Patient MR#: [id number] Physician: Tarsha Mancera M.D. Treatment Planning Note Physician Order Type of Treatment Planning: Complex Diagnosis: Rectal Adenocarcinoma C20 - Malignant neoplasm of rectum, Stage IIIB, T3, N1, M0 Treatment Intent: Curative Target/Total Dose/Fraction Size: pelvic lymph no bibi and rectal tumor 7 fractions at 2Gy followed by rectal GTV boost for 3 fractions at 2.5Gy/fraction via IMRT/IGRT 6X to make up the desired preop do se. He had a prolonged treatment break but recent PET shows no tumor pr ogression outside pelvis. Special Treatment Procedure: The patient s plan required additional physician time and effort because the patient will be risa yolande with concurrent chemotherapy which required additional coordinat ion and care for toxicity. He was also previously treated with IMRT to this si te. Additional time and effort was spent for image f usion using Pet Scan for customized Tx Plan Imaging Physics Instructions: Physics QA is requ ired before the first fraction. CBCT imaging for patient position and target localization confirmation before delivery of treatment is req uested. MODALITY: ___ 3D-17815/32079/39136/24747/74704/18616/28147 /20788/28198/76951 __x_ IMRT-92079/10254/91152/92864/35025/20321/77 293/21710/44856/93063 ___ SRS/SBRT-70808/09968/99455/22725/42087/84857 /07523/97120/13972 Sincerely, PATIENT NAME: GENO PRASAD 652 Page 2 of 2 Electronically Signed and Approved by Tarsha Mancera M.D. 12/31/2021 2:56:50 PM Electronically Signed by Tarsha Mancera MD on 12/31 at 1456 PATIENT NAME: GENO PRASAD 652 2021-12-31 14:24:00-00:00 [id number] [facility] [place]: [place] [address] PATIENT NAME: GENO PRASAD ADMIT DATE: 12/14/21 ACCOUNT NO: [id number] ROOM NO: AGE: 56 REPORT TYPE: ePROCEDURE NOTE RADIATION ONC SEX: M ADMITTING PHYSICIAN: ATTENDING PHYSICIAN:Tarsha Mancera MD Patient MR#: [id number] Date of Service: 12/31/2021 Patient Name: GENO PRASAD Patient : 1965 Patient MR#: [id number] Physician: Tarsha Mancera M.D. 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 The patient was referred for preoper ative EMERGENCY PHYSICIAN with curative intent. Procedure The patient was la id prone withOUT rectal marker with legs and pelvis on belly board with ostomies in the aperture, sc anned feet first. Lasers confirmed the patient positi on before a CT of the pelvis was obtained at 2.5 mm slice thickness from L3 superiorly down to the i nferior aspect of the obturators. All images were reviewed allyson or to tattooing the patient and having him come off the table. Provisional plan for secondary sim: No IV Contrast: None Sincerely, Electronically signed by: Tarsha Mancera M.D. on 12/31 2:52:[address] [place] [address] - - Page 1 of 1 Electronically Signed by Tarsha Mancera MD on 12/31 at 1452 PATIENT NAME: GENO PRASAD 652 2021-12-31 14:13:00-00:00 [id number] [facility] [place] of: [facility] [address] [place] [address] PATIENT NAME: GENO PRASAD ADMIT DATE: 12/14/21 ACCOUNT NO: [id number] ROOM NO: AGE: 56 REPORT TYPE: ePHYSICIAN ORDER RADIATION ONC SEX: M ADMITTING PHYSICIAN: ATTENDING PHYSICIAN:Tarsha Mancera MD PHYSICIAN ORDER SCAN SHEET Department of Radiation Oncology [facility] Patient: GENO PRASAD : 1965 MR#: [id number] Physician: Tarsha Mancera M.D. Date: 12/31/2021 Referring Physician: Bro Vargas M.D. Diagnosis: Primary C20 - Malignant neoplasm of r ectum, Diagnosed 08/31/2021 (Active) Stage IIIB, T3, N1, M0 Reason for Visit: C1 Rectal + LN's (Plan ID - Rectal + LN's) - Rx Dose 4,500cGy (Status - Treatment Approved) - C1 Rectal + LN's (Plan ID - Rectum Boost ) - Rx Dose 540cGy (Status - Treatment Approved) - 0 C1 Rectal + LN's (Plan ID - Rectum Boost1) - Rx Dose 750cGy (Status - Unapproved) - 0 C1 Rectal + LN's (Plan ID - Rectal+LN18fx) - Rx Dose 3,240cGy (Status - Unapproved) - C1 Rectal + LN's (Plan ID - Rectal+LN7fx) - Rx D ose 1,750cGy (Status - Unapproved) - PATIENT NAME: GENO PRASAD 652 ORDERING PHYSICIAN SIGNATURE: Electronically sig darrell by Tarsha Mancera M.D. on 01/03/2022 11:33:11 AM Electronically Signed by Tarsha Mancera MD on 01/03 at 1133 PATIENT NAME: GENO PRASAD 652 2021-12-31 14:12:00-00:00 [id number] [facility] [place] of: [address] [address] PATIENT NAME: GENO PRASAD ADMIT DATE: 12/14/21 ACCOUNT NO: [id number] ROOM NO: AGE: 56 REPORT TYPE: ePROCEDURE NOTE RADIATION ONC SEX: M ADMITTING PHYSICIAN: ATTENDING PHYSICIAN:Tarsha Mancera MD Patient MR#: [id number] PHYSICIAN CT SIMULATION ORDER Date of Service: 12/31/2021 Patient Name: GENO PRASAD Patient : 1965 Patient MR#: [id number] Radiation Oncologist: Tarsha Mancera M.D. DIAGNOSIS AND STAGING DIAGNOSIS: Primary C20 - Malignant neoplasm of r ectum, Diagnosed 08/31/2021 (Active) TREATMENT INTENT: GENERAL MEDICAL NECESSITY Simulation was necessary for preparation of radi ation therapy to obtain CT images in treatment position, donta patient with external fiducials and determine treatment isocenter for future image v erification. TYPE OF TREATMENT: PATIENT ORIENTATION: PATIENT POSITIONING: TARGET DOSE ANATOMICAL SITE: RECTUM/PELVIS LATERALITY: PATIENT DIRECTIVES: ORGAN MOTION REQUIRED: RX PLANNING MODALITIES: Other: MODALITY: ENERGIES: FRACTIONS: OTHER: 7 PATIENT NAME: GENO PRASAD 652 BOOST ENERGIES: BOOST FRACTIONS: OTHER: SPECIAL TREATMENT PROCEDURE: STP MEDICAL NECESSITY: The final prescription reflecting the treatment parameters, i.e. fractionations, energy, beam arrangement and total dose will be provided on the prescription document in the electronic medical record upon completion and my evaluation of the requested dosimetry. IMAGING ORDERS WEEKLY PORT FILMS: VIRTUAL SIM: DAILY CBCT: Medical necessity: CBCT is needed to verify targ et and organs at risk (OAR) are adequately included or protected. DAILY KV/KV FILMS ONLY: MV IMAGING MATCHING BONY ANATOMY: OTHER: EXTREMITY POSITIONING Upper Extremity: Other: Lower Extremity: Other: Knee Sponge: IMMOBILIZATION DEVICES HEAD SUPPORT: Clear [place]: Spongy [place]: [place] Arch: Accuform: Pillow: Prone Head Angle UNDER PATIENT: None: Full Pad: Half Pad: Sheet: Other: Vak Julio: Other: Aquaplast: Chabner Bra: Belly Board: S Board: Wing Board with Ext.: , In dexed at: Breast Board Headrest: Breast Board Angle: Breas t Board Hip Stopper: Prone Breast Board: Shoulder Restraints WB: Shou lder Restraints: BB: Indexed: Device: Indexed: Device: OTHER PARAMETERS CONTRAST: MISC.: Other: DENTAL: MARKERS: Other: PATIENT NAME: GENO PRASAD [id number] WEEKLY PHYSICS CHECK: ADDITIONAL PHYSICIAN NOTES: THERAPIST SET UP SUMMARY: Prone on Belly Board FEET FIRST, IDX @ F2, Pillow to head/chest, knee sponge to feet Page 2 of [id number] Electronically Signed and Approved by Tarsha Mancera M.D. 12/31/2021 2:40:03 PM Electronically Signed by Tarsha Mancera MD on 12/31 at 1440 PATIENT NAME: GENO PRASAD 652 2021-12-31 13:45:00-00:00 [phone] [facility] [place] of: [facility] [address] [place] [address] PATIENT NAME: GENO PRASAD ADMIT DATE: 12/14/21 ACCOUNT NO: [id number] ROOM NO: AGE: 56 REPORT TYPE: ePROGRESS NOTE RADIATION ONC SEX: M ADMITTING PHYSICIAN: ATTENDING PHYSICIAN:Tarsha Mancera MD Patient MR#: [id number] Date of Service: 12/31/2021 Patient Name: GENO PRASAD Patient : 1965 Patient MR#: [id number] Physician: Tarsha Mancera M.D. Follow-Up Note Diagnosis: C20 - malignant neoplasm of rectum, Narrative: MR. PRASAD is a 56 year old who ret urns after prolonged treatment break due to perforated bowel during p elvic chemoradiation therapy. His course is as follows but he needs to finish pelvic dose, seeing that he is not metastastic (recent PET after hospitalizatio n shows rectal tumor but no distant metastases). PET scan 12/21/2021: Review of Systems: No complaints pertaining to v ision, hearing, mouth or throat. Two ostomies on abdomen. Denies cardiova scular, respiratory, musculoskeletal, psychiatric or neurological com plaints. No skin or allergy issues noted. Denies urinary complaints. Denies unexplained weight loss. Performance Status: ECOG 1 Toxicities: The following toxicities were assessed as a 1: Fatigue - Fatigue relieved by rest, Pain - mild pain, Weight loss - 5 to <10% from baseline; intervention not indicated. Anorexia - None, Dermatitis radiation - none, Di arrhea - none, Dyspepsia - none, Nausea - none, Vomiting - none. Physical Exam: He is very pleasant and in no dis tress. Neurological exam is non-focal with CN 2-12 grossly intact. Heart is RRR. Lungs CTA bilaterally. Abdomen soft and non-tender with two ostomies. Impression Recommendation: MR. PRASAD is here to resume preop chemoradiation therapy after a prolonged treatment break. CT simulation today, PATIENT NAME: GENO PRASAD 652 fuse with recent PET and start dagoberto to complete 2 weeks of IMRT. Sincerely, Electronically signed by: Tarsha Mancera M.D. on 12/31 1:52:12 PM Cc: Bro Vargas M.D. [id number] [place] [id number] - - Page 2 of 2 Electronically Signed by Tarsha Mancera MD on 12/31 at 1352 PATIENT NAME: GENO PRASAD 652 2021-12-30 10:29:00-00:00 [id number] [facility] [place] of: [address] [address] PATIENT NAME: GENO PRASAD ADMIT DATE: 12/14/21 ACCOUNT NO: [id number] ROOM NO: AGE: 56 REPORT TYPE: ePHYSICIAN ORDER RADIATION ONC SEX: M ADMITTING PHYSICIAN: ATTENDING PHYSICIAN:Tarsha Mancera MD PHYSICIAN ORDER SCAN SHEET Department of Radiation Oncology [facility] Patient: GENO PRSAAD : 1965 MR#: [id number] Physician: Tarsha Mancera M.D. Date: 12/30/2021 Referring Physician: Diagnosis: Primary C20 - Malignant neoplasm of r ectum, Diagnosed 08/31/2021 (Active) Stage IIIB, T3, N1, M0 Reason for Visit: C1 Rectal + LN's (Plan ID - Rectal + LN's) - Rx Dose 4,500cGy (Status - Treatment Approved) - C1 Rectal + LN's (Plan ID - Rectum Boost ) - Rx Dose 540cGy (Status - Treatment Approved) - 0 C1 Rectal + LN's (Plan ID - Rectum Boost1) - Rx Dose 750cGy (Status - Unapproved) - 0 C1 Rectal + LN's (Plan ID - Rectal+LN18fx) - Rx Dose 3,240cGy (Status - Unapproved) - C1 Rectal + LN's (Plan ID - Rectal+LN7fx) - Rx D ose 1,750cGy (Status - Unapproved) - PATIENT NAME: GENO PRASAD 652 ORDERING PHYSICIAN SIGNATURE: Electronically sig darrell by Tarsha Mancera M.D. on 12/31/2021 9:01:27 AM Electronically Signed by Tarsha Mancera MD on 12/31 at 0901 PATIENT NAME: GENO PRASAD 7652 2021-12-14 15:13:00-00:00 [phone] [facility] [place] of: [address] [address] PATIENT NAME: GENO PRASAD ADMIT DATE: 12/14/21 ACCOUNT NO: [id number] ROOM NO: AGE: 56 REPORT TYPE: ePHYSICIAN ORDER RADIATION ONC SEX: M ADMITTING PHYSICIAN: ATTENDING PHYSICIAN:Tarsha Mancera MD PHYSICIAN ORDER SCAN SHEET Department of Radiation Oncology [facility] Patient: GENO PRASAD : 1965 MR#: [id number] Physician: Tarsha Mancera M.D. Date: 12/14/2021 Referring Physician: Diagnosis: Primary C20 - Malignant neoplasm of r ectum, Diagnosed 08/31/2021 (Active) Stage IIIB, T3, N1, M0 Reason for Visit: C1 Rectal + LN's (Plan ID - Rectal + LN's) - Rx Dose 4,500cGy (Status - Treatment Approved) - C1 Rectal + LN's (Plan ID - Rectum Boost ) - Rx Dose 540cGy (Status - Treatment Approved) - ORDERING PHYSICIAN SIGNATURE: Electronically sig darrell by Tarsha Mancera M.D. on 12/15/2021 10:45:10 AM PATIENT NAME: GENO PRASAD 652 Electronically Signed by Tarsha Mancera MD on 12/15 at 1045 PATIENT NAME: GENO PRASAD 652 2021-12-14 14:59:00-00:00 [phone] [facility] [place] of: [facility] [address] [place] [address] PATIENT NAME: GENO PRASAD ADMIT DATE: 12/14/21 ACCOUNT NO: [id number] ROOM NO: AGE: 56 REPORT TYPE: ePROGRESS NOTE RADIATION ONC SEX: M ADMITTING PHYSICIAN: ATTENDING PHYSICIAN:Tarsha Mancera MD Patient MR#: [id number] Date of Service: 12/14/2021 Patient Name: GENO PRASAD Patient : 1965 Patient MR#: [id number] Physician: Tarsha Mancera M.D. Follow-Up Note Diagnosis: C20 - malignant neoplasm of rectum, Narrative: MR. PRASAD is a 56 year old who ret urns after nearly 2 month inpatient break from preop c hemoradiation for a locally advanced rectal cancer. He was treated for bowel perforation at [facility] by surgeon Dr. Yolande Fernández in [place]. Mr. Conway has two ostomies no w and is experiencing mucus from the recto-anal stump. He is pain-free and n ot on antibiotics. His inpatient records have not been received to revi ew. IMRT dose: 32.4 Gy received, last dose was on 10/18/21. Review of Systems: No complaints pertaining to v ision, hearing, mouth or throat. Denies cardiovascular, respiratory, musc uloskeletal, psychiatric or neurological complaints. No skin or allergy issu es noted. Denies urinary complaints. Denies unexplained weight loss. Two ostomies after bowel surgeries. Performance Status: ECOG 1 Toxicities: The following toxicities were assessed as a 1: Fatigue - Fatigue relieved by rest, Pain - mild pain, Weight loss - 5 to <10% from baseline; intervention not indicated. Anorexia - None, Dermatitis radiation - none, Di arrhea - none, Dyspepsia - none, Nausea - none, Vomiting - none. Physical Exam: Performed on 12/14/2021 2:45 PM BMI - 25.009 kg/m2 (high)-, Height - 72 in-, Weight - 184.4 lbs-, Fatigue - 0-, Pain - 0-, Temperature - 98.6 f-, Pulse - 83 /min-, Respiration - 16 /min-, O2 Sat - 100 %- and BP - 145/ 89 mm(hg)(high/) - ;. He is very pleasant and in no distress. Neurological exam is non-focal with CN 2-12 grossly intact. Heart is RRR. Lungs CTA erlinda aterally. Abdomen soft and PATIENT NAME: GENO PRASAD 652 non-tender with two ostomies on either side of l ower abdomen. Rectal exam deferred (tumor is far above reach). Impression Recommendation: MR. PRASAD received 30Gy of radiation prior to hospitalization. I discussed his case with Dr Earnest Vargas and we agreed to order a PET scan for restagi ng and discuss next steps with his surgeon. Records from [facility] pending. Sincerely, Electronically signed by: Tarsha Mancera M.D. on 2021 3:04:56 PM Cc: Shaji Raymundo M.D. [address] [place] [address] - - Page 2 of 2 Electronically Signed by Tarsha Mancera MD on 12/14 at 1504 PATIENT NAME: GENO PRASAD 652 2021-11-08 11:05:00-00:00 [phone] [facility] [place]: [place] [address] PATIENT NAME: GENO PRASAD ADMIT DATE: 10/18/21 ACCOUNT NO: [id number] ROOM NO: AGE: 56 REPORT TYPE: ePHYSICIAN ORDER RADIATION ONC SEX : M ADMITTING PHYSICIAN: ATTENDING PHYSICIAN:Tarsha Mancera MD PHYSICIAN ORDER SCAN SHEET Department of Radiation Oncology [facility] Patient: GENO PRASAD : 1965 MR#: [id number] Physician: Tarsha Mancera M.D. Date: 11/08/2021 Referring Physician: TANIA WALTER Diagnosis: Primary C20 - Malignant neoplasm of r ectum, Diagnosed 08/31/2021 (Active) Stage IIIB, T3, N1, M0 Reason for Visit: C1 Rectal + LN's (Plan ID - Rectal + LN's) - Rx Dose 4,500cGy (Status - Treatment Approved) - C1 Rectal + LN's (Plan ID - Rectum Boost ) - Rx Dose 540cGy (Status - Treatment Approved) - ORDERING PHYSICIAN SIGNATURE: Electronically sig darrell by Tarsha Mancera M.D. on 11/08/2021 12:28:36 PM PATIENT NAME: GENO PRASAD 791 Electronically Signed by Tarsha Mancera MD on 11/08 at 1228 PATIENT NAME: GENO PRASAD 791 2021-10-14 13:37:00-00:00 [id number] [facility] [place] of: [address] [address] PATIENT NAME: GENO PRASAD ADMIT DATE: ACCOUNT NO: [id number] ROOM NO: AGE: 56 REPORT TYPE: ePROCEDURE NOTE RADIATION ONC SEX: M ADMITTING PHYSICIAN: ATTENDING PHYSICIAN:Tarsha Mancera MD Date of Service: 10/14/2021 Patient Name: GENO PRASAD Patient : 1965 Patient MR#: [id number] Physician: Tarsha Mancera M.D. Treatment Planning Note Physician Order Type of Treatment Planning: Complex Diagnosis: Rectal Adenocarcinoma C20 - Malignant neoplasm of rectum, Stage IIIB, T3, N1, M0 Treatment Intent: Curative Target/Total Dose/Fraction S ize: rectal tumor- gross tumor boost, 5.4 Gy in 1.8 Gy daily fractions, 3 fx 6X VMAT/IGRT Special Treatment Procedure: The patient s plan required additional physician time and effort due to use of VMAT which require d contouring of normal structures as well as CTV and evaluation of comparative DVH graphs. I reviewed several plans prior to achieving an adequate momo n with optimal PTV coverage while respecting normal surrounding structures i ncluding bladder, bowel and femoral heads. The patient will also be treated with concurrent chemotherapy which required additional coordination and care for toxicity. Additional time and effort was spent for image f usion using Pet Scan for customized Tx Plan Imaging Physics Instructions: Physics QA is requ ired before the first fraction. CBCT imaging for patient position and target localization confirmation before delivery of treatment is req uested. MODALITY: ___ 3D-35255/91420/[id number]/[id number] ___ IMRT-[id number]/[id number]/64651/[id number]/772 93 ___ SRS/SBRT-[id number]/77003/[id number]/[id number] Sincerely, Electronically Signed and Approved by Tarsha Mancera M.D. 10/14/2021 1:38:10 PM Electronically Signed by Tarsha Mancera MD on 10/14 at 1338 PATIENT NAME: GENO PRASAD 791 2021-10-14 13:36:00-00:00 [id number] [facility] [place] of: [place] [address] PATIENT NAME: GENO PRASAD ADMIT DATE: ACCOUNT NO: [id number] ROOM NO: AGE: 56 REPORT TYPE: ePROCEDURE NOTE RADIATION ONC SEX: M ADMITTING PHYSICIAN: ATTENDING PHYSICIAN:Tarsha Mancera MD Date of Service: 10/14/2021 Patient Name: GENO PRASAD Patient : 1965 Patient MR#: [id number] Physician: Tarsha Mancera M.D. Simulation Note Type of Simulation: Complex Purpose: Boost Diagnosis: Rectal Adenocarcinoma C20 - M alignant neoplasm of rectum, IIIB, T3, N1, M0 Treatment Intent: Curative History Summary: He is here for resim for rectal tumor boost, he is nearly done with pelvic plan inclusive of lymph nodes. Procedure The patient was la id supine with rectal marker (radioopaque BB) placed at inferior edge of tumor with legs and pelvis i n a customized Vac-Loc cradle for immobilization. Lasers confirmed the patient position before a CT of the pelvis was obtained at 2.5 mm slice thickness fr om L3 superiorly down to the inferior aspect of the obturators. IV Contrast: None Sincerely, Electronically signed by: Tarsha Mancera M.D. on 09/17 1:37:28 PM Electronically Signed by Tarsha Mancera MD on 10/14 at 1337 PATIENT NAME: GENO PRASAD 791 2021-10-13 13:52:00-00:00 [id number] [facility] [place] of: [facility] [address] [place] [address] PATIENT NAME: GENO PRASAD ADMIT DATE: ACCOUNT NO: [id number] ROOM NO: AGE: 56 REPORT TYPE: ePROGRESS NOTE RADIATION ONC SEX: M ADMITTING PHYSICIAN: ATTENDING PHYSICIAN:Tarsha Mancera MD Date of Service: 10/13/2021 Patient Name: GENO PRASAD Patient : 1965 Patient MR#: [id number] Physician: Tarsha Mancera M.D. Weekly OTV Note Diagnosis: C20 - Malignant neoplasm of rectum, S tage IIIB, T3, N1, M0 Treatment Summary: Course: C1 Rectal + LN's Treatment Site: Rectal + LN's Ref. ID: Rectal Energy: 6X Dose/Fx (cGy): 180 #Fx: 15 / 25 Dose Correction (cGy): 0 Total Dose (cGy): 2,700 Start Date: 09/20/2021 End Date: 10/12/2021 Elapsed Days: 22 Narrative: Loose bowels. Toxicities: The following toxicities were assess ed as a 2: Diarrhea - Increase of 4 - 6 stools per day over baseline; moderate increase in ostomy output compared to baseline, Proctitis - symptoms (e.g., rectal discomfort, passing blood or mucus); medical int ervention indicated; limiting instrumental ADL. The following toxicities were assessed as a 1: Erectile dysfunction - Decrease in erect ile function (frequency or rigidity of erections) but intervention not indicated (e.g., medication or use of mechanical device, penile pump), Fatigue - fatig ue relieved by rest, Rectal mucositis - asymptomatic or mild symptoms; inter vention not indicated, Rectal pain - mild pain. Anorexia - None, Dermatitis radiation - none, He maturia - none, Lymphedema - none, Pelvic pain - none, Rectal fistula - none, Rectal ulcer - none, Urinary frequency - none, Urinary incontinence - none, U rinary retention - none, Urinary tract pain - none, Urinary urgency - non e, Weight loss - none. Physical Examination: Vital signs are Performed on 10/13/2021 1:35 PM BMI - 28.454 kg/m2 (high)-, Height - 72 in-, Weight - 209.8 lbs-, Fatigue - 0-, PATIENT NAME: GENO PRASAD 791 Pain - 4-, Temperature - 98.1 f-, Pulse - 99 /mi n-, O2 Sat - 99 %- and BP - 122/ 72 mm(hg) - ;.. Patient is alert and orient ed x 3, in no distress. Abdomen soft and non-tender. Lungs clear bilater ally. Heart RRR. Neurologic exam non-focal. Impression Recommendation: MR. PRASAD is stabl e. Continue present management. Use Imodium as instructed. The patient s dosimetry risa tment plan and portal images have been reviewed and approved without modification. Sincerely, Electronically signed by: Tarsha Mancera M.D. on 09/16 1:53:35 PM Electronically Signed by Tarsha Mancera MD on 10/13 at 1353 PATIENT NAME: GENO PRASAD 791 2021-10-06 14:39:00-00:00 [phone] [facility] [place]: [place] [address] PATIENT NAME: GENO PRASAD ADMIT DATE: ACCOUNT NO: [id number] ROOM NO: AGE: 56 REPORT TYPE: ePROGRESS NOTE RADIATION ONC SEX: M ADMITTING PHYSICIAN: ATTENDING PHYSICIAN:Tarsha Mancera MD Date of Service: 10/06/2021 Patient Name: GENO PRASAD Patient : 1965 Patient MR#: [id number] Physician: Kenzie Sosa M.D. Weekly OTV Note Diagnosis: C20 - Malignant neoplasm of rectum, D iagnosed 08/31/2021 (Active) Stage IIIB, T3, N1, M0 Treatment Summary: Course: C1 Rectal + LN's Treatment Site: Rectal + LN's Ref. ID: Rectal Energy: 6X Dose/Fx (cGy): 180 #Fx: Dose Correction (cGy): 0 Total Dose (cGy): 2,160 Start Date: 09/20/2021 End Date: 10/06/2021 Elapsed Days: 16 Narrative: continues to have diarrhea up to 5x d aily. On lomotil 1 tab BID. Reports left lower quadrant discomfort. Toxicities: The following toxicities were assess ed as a 2: Diarrhea - Increase of 4 - 6 stools per day over baseline; moderate increase in ostomy output compared to baseline, Proctitis - symptoms (e.g., rectal discomfort, passing blood or mucus); medical int ervention indicated; limiting instrumental ADL. The following toxicities were assessed as a 1: Erectile dysfunction - Decrease in erect ile function (frequency or rigidity of erections) but intervention not indicated (e.g., medication or use of mechanical device, penile pump), Fatigue - fatig ue relieved by rest, Rectal mucositis - asymptomatic or mild symptoms; inter vention not indicated, Rectal pain - mild pain. Anorexia - None, Dermatitis radiation - none, He maturia - none, Lymphedema - none, Pelvic pain - none, Rectal fistula - none, Rectal ulcer - none, Urinary frequency - none, Urinary incontinence - none, U rinary retention - none, Urinary tract pain - none, Urinary urgency - non e, Weight loss - none. PATIENT NAME: GENO PRASAD 791 Physical Examination: Vital signs are Performed on 10/06/2021 1:46 PM BMI - 29.349 kg/m2 (high)-, Height - 72 in-, Weight - 216.4 lbs-, Fatigue - 0-, Pain - 2-, Temperature - 97 f-, Pulse - 77 /min-, O2 Sat - 99 %- and BP - 127/ 80 mm(hg) - ;.. Patient is alert and oriented x 3, in no distress. Abdomen soft and mildly tender in the LLQ, no palpable m asses Impression Recommendation: Aftab PRASAD is stable. Continue present management. Prescription given for Lomotil 2 tabs BID, monit or abdominal discomfort. The patient s dosimetry risa tment plan and portal images have been reviewed and approved without modification. Sincerely, Electronically Signed by Kenzie Sosa MD on at 1441 PATIENT NAME: GENO PRASAD 791 2021-10-06 14:39:00-00:00 [phone] [facility] [place] of: [facility] [address] [place] [address] PATIENT NAME: GENO PRASAD ADMIT DATE: 10/18/21 ACCOUNT NO: [id number] ROOM NO: AGE: 56 REPORT TYPE: ePROGRESS NOTE RADIATION ONC SEX: M ADMITTING PHYSICIAN: ATTENDING PHYSICIAN:Tarsha Mancera MD Patient MR#: [id number] Date of Service: 10/06/2021 Patient Name: GENO PRASAD Patient : 1965 Patient MR#: [id number] Physician: Kenzie Sosa M.D. Weekly OTV Note Diagnosis: C20 - Malignant neoplasm of rectum, D iagnosed 08/31/2021 (Active) Stage IIIB, T3, N1, M0 Treatment Summary: Course: C1 Rectal + LN's Treatment Site: Rectal + LN's Ref. ID: Rectal Energy: 6X Dose/Fx (cGy): 180 #Fx: Dose Correction (cGy): 0 Total Dose (cGy): 2,160 Start Date: 09/20/2021 End Date: 10/06/2021 Elapsed Days: 16 Narrative: continues to have diarrhea up to 5x d aily. On lomotil 1 tab BID. Reports left lower quadrant discomfort. Toxicities: The following toxicities were assess ed as a 2: Diarrhea - Increase of 4 - 6 stools per day over baseline; moderate increase in ostomy output compared to baseline, Proctitis - symptoms (e.g., rectal discomfort, passing blood or mucus); medical int ervention indicated; limiting instrumental ADL. The following toxicities were assessed as a 1: Erectile dysfunction - Decrease in erect ile function (frequency or rigidity of erections) but intervention not indicated (e.g., medication or use of mechanical device, penile pump), Fatigue - fatig ue relieved by rest, Rectal mucositis - asymptomatic or mild symptoms; inter vention not indicated, Rectal pain - mild pain. Anorexia - None, Dermatitis radiation - none, He maturia - none, Lymphedema - PATIENT NAME: GENO PRASAD 791 none, Pelvic pain - none, Rectal fistula - none, Rectal ulcer - none, Urinary frequency - none, Urinary incontinence - none, U rinary retention - none, Urinary tract pain - none, Urinary urgency - non e, Weight loss - none. Physical Examination: Vital signs are Performed on 10/06/2021 1:46 PM BMI - 29.349 kg/m2 (high)-, Height - 72 in-, Weight - 216.4 lbs-, Fatigue - 0-, Pain - 2-, Temperature - 97 f-, Pulse - 77 /min-, O2 Sat - 99 %- and BP - 127/ 80 mm(hg) - ;.. Patient is alert and oriented x 3, in no distress. Abdomen soft and mildly tender in the LLQ, no palpable m asses Impression Recommendation: Aftab PRASAD is stable. Continue present management. Prescription given for Lomotil 2 tab s BID, monitor abdominal discomfort. The patient s dosimetry treatment plan and mickey l images have been reviewed and approved without modification. Sincerely, [address] [place] [address] - - Page 2 of 2 Electronically Signed by Kenzie Sosa MD on at 1441 PATIENT NAME: GENO PRASAD 791 2021-09-22 13:55:00-00:00 [phone] [facility] [place]: [place] [address] PATIENT NAME: GENO PRASAD ADMIT DATE: ACCOUNT NO: [id number] ROOM NO: AGE: 56 REPORT TYPE: ePROGRESS NOTE RADIATION ONC SEX: M ADMITTING PHYSICIAN: ATTENDING PHYSICIAN:Tarsha Mancera MD Date of Service: 09/22/2021 Patient Name: GENO PRASAD Patient : 1965 Patient MR#: [id number] Physician: Tarsha Mancera M.D. Weekly OTV Note Diagnosis: C20 - Malignant neoplasm of rectum, S tage IIIB, T3, N1, M0 Treatment Summary: Course: C1 Rectal + LN's Treatment Site: Rectal + LN's Ref. ID: Rectal Energy: 6X Dose/Fx (cGy): 180 #Fx: Dose Correction (cGy): 0 Total Dose (cGy): 360 Start Date: 09/20/2021 End Date: 09/21/2021 Elapsed Days: 1 Narrative: No complaints. Toxicities: The following toxicities were assess ed as a 1: Erectile dysfunction - Decrease in erect ile function (frequency or rigidity of erections) but intervention not indicated (e.g., medication or use of mechanical device, penile pump). Anorexia - None, Dermatitis radiation - none, Diarrhea - none, Fatigue - none, Hematuria - none, Lymphedema - none, Pelvic pain - none, Proctitis - none, Rectal fistula - none, Rectal mucositis - none, Rectal pain - none, Rectal ulcer - none, Urinary frequency - none, Urinary incontinence - none, Urinary retention - none, Urinary tract pain - none, Uri nary urgency - none, Weight loss - none. Physical Examination: Vital signs are Performed on 09/22/2021 1:33 PM BMI - 29.566 kg/m2 (high)-, Height - 72 in-, Ric ght - 218 lbs-, Fatigue - 0-, Pain - 0-, Temperature - 97.9 f-, Pulse - 79 /mi n-, O2 Sat - 100 %- and BP - 144/ 90 mm(hg)(high/) - ;.. Patient is a lert and oriented x 3, in no distress. Abdomen soft and nontender. Lungs clear bilatera lly. Heart RRR. Neurologic exam nonfocal. Impression Recommendation: MR. PRASAD is stabl e. Continue present PATIENT NAME: GENO PRASAD [address] Vargas about concurrent chemotherapy. The patient s dosimetry risa tment plan and portal images have been reviewed and approved without modification. Sincerely, Electronically signed by: Tarsha Mancera M.D. on 09/22 1:56:00 PM Electronically Signed by Tarsha Mancera MD on 09/22 at 1356 PATIENT NAME: GENO PRASAD 791 2021-09-20 10:38:00-00:00 [phone] [facility] [place] of: [address] [address] PATIENT NAME: GENO PRASAD ADMIT DATE: ACCOUNT NO: [id number] ROOM NO: AGE: 56 REPORT TYPE: ePROGRESS NOTE RADIATION ONC SEX: M ADMITTING PHYSICIAN: ATTENDING PHYSICIAN:Tarsha Mancera MD Date of Service: 09/20/2021 Patient Name: GENO PRASAD Patient : 1965 Patient MR#: [id number] Physician: Tarsha Mancera M.D. See on Treatment/Block Check Notes Diagnosis: C20 - Malignant neoplasm of rectum, S tage IIIB, T3, N1, M0 Procedure: Simple simulation on the first day of treatment Narrative: GENO PRASAD was taken to the treatment room and laid supine in the previously fabricated immobilization device. Las ers confirmed alignment and images were obtained and the patient set up very accurately. Treatment plan with films were reviewed and approved. Gregg coppola and was present for delivery of the first fraction. Sincerely, Electronically signed by:Tarsha Mancera M.D. on 2020 10:38:53 AM Electronically Signed by Tarsha Mancera MD on 09/20 at 1038 PATIENT NAME: GENO PRASAD 791 2021-09-08 08:45:00-00:00 [phone] [facility] of: [address] [address] PATIENT NAME: GENO PRASAD ADMIT DATE: 09/02/21 ACCOUNT NO: [id number] ROOM NO: AGE: 56 REPORT TYPE: ePHYSICIAN ORDER RADIATION ONC SEX: M ADMITTING PHYSICIAN: ATTENDING PHYSICIAN:Tarsha Mancrea MD Department of Radiation Oncology [facility] Patient: GENO PRASAD : 1965 MR#: [id number] Physician: Tarsha Mancera M.D. Date: 09/08/2021 Referring Physician: TANIA WALTER Diagnosis: Primary C20 - Malignant neoplasm of r ectum, Diagnosed 08/31/2021 (Active) Stage IIIB, T3, N1, M0 Reason for Visit: ORDERING PHYSICIAN SIGNATURE: Electronically sig darrell by Tarsha Mancera M.D. on 09/13/2021 8:30:45 AM Electronically Signed by Tarsha Mancera MD on 09/13 at 0830 PATIENT NAME: GENO PRASAD 286 2021-09-02 11:08:00-00:00 [phone] [facility] [place] of: [address] [address] PATIENT NAME: GENO PRASAD ADMIT DATE: 09/02/21 ACCOUNT NO: [id number] ROOM NO: AGE: 56 REPORT TYPE: ePROCEDURE NOTE RADIATION ONC SEX: M ADMITTING PHYSICIAN: ATTENDING PHYSICIAN:Tarsha Mancera MD Date of Service: 09/02/2021 Patient Name: GENO PRASAD Patient : 1965 Patient MR#: [id number] Physician: Tarsha Mancera M.D. Treatment Planning Note Physician Order Type of Treatment Planning: Complex Diagnosis: Rectal Adenocarcinoma C20 - Malignant neoplasm of rectum, Stage IIIB, T3, N1, M0 Treatment Intent: Curative Target/Total Dose/Fraction Size: pelvic lymph nodes and rectal tumor = PTV1 to 45 Gy in 1.8 Gy daily fractions, 25 fractions 6X VMAT/IGRT; followed by PTV2= gross tumor boost, 5.4 Gy in 1.8 Gy daily fracti ons, 3 fx 6X VMAT/IGRT (concurrent chemotherapy) Special Treatment Procedure: The patient s plan required additional physician time and effort due to use of VMAT which require d contouring of normal structures as well as CTV and evaluation of comparative DVH graphs. I reviewed several plans prior to achieving an adequate momo n with optimal PTV coverage while respecting normal surrounding structures i ncluding bladder, bowel and femoral heads. The patient will also be treated with concurrent chemotherapy which required additional coordination and care for toxicity. Additional time and effort was spent for image f usion using Pet Scan for customized Tx Plan Imaging Physics Instructions: Physics QA is requ ired before the first fraction. CBCT imaging for patient position and target localization confirmation before delivery of treatment is req uested. MODALITY: ___ [id number]-[id number]/09905/[id number]/[id number] ___ IMRT-[id number]/63289/92133/65575/772 93 ___ SRS/SBRT-[id number] Sincerely, Electronically Signed and Approved by Tarsha Mancera M.D. 09/02/2021 11:09:08 AM PATIENT NAME: GENO PRASAD 286 Electronically Signed by Tarsha Mancera MD on 09/02 at 1109 PATIENT NAME: GENO PRASAD 286 2021-09-02 11:07:00-00:00 [phone] [facility] [place] of: [address] [address] PATIENT NAME: GENO PRASAD ADMIT DATE: 09/02/21 ACCOUNT NO: [id number] ROOM NO: AGE: 56 REPORT TYPE: ePROCEDURE NOTE RADIATION ONC SEX: M ADMITTING PHYSICIAN: ATTENDING PHYSICIAN:Tarsha Mancera MD Date of Service: 09/02/2021 Patient Name: GENO PRASAD Patient : 1965 Patient MR#: [id number] Physician: Tarsha Mancera M.D. Simulation Note Type of Simulation: Complex Purpose: Initial Diagnosis: Rectal Adenocarcinoma C20 - Malignant neoplasm of rectum, Stage IIIB, T3-4, N1, M0 Treatment Intent: Curative History Summary: Staging pelvic CT scan was nota ble for sreedhar-recal randa metastases but no distant metastases. The patien t was referred for preoperative EMERGENCY PHYSICIAN with curative intent after havi ng 3 cycles of FOLFOX. Procedure The patient was la id supine with rectal marker (radioopaque BB) placed at inferior edge of tumor with legs and pelvis i n a customized Vac-Loc cradle for immobilization. Lasers confirmed the patient position before a CT of the pelvis was obtained at 2.5 mm slice thickness fr om L3 superiorly down to the inferior aspect of the obturators. All i mages were reviewed prior to tattooing the patient and having him come off the table. Provisional plan for secondary sim: no IV Contrast: None Sincerely, Electronically signed by: Tarsha Mancera M.D. on 08/16 11:08:36 AM Electronically Signed by Tarsha Mancera MD on 09/02 at 1108 PATIENT NAME: GENO PRASAD 286 2021-09-02 10:54:00-00:00 [phone] [facility] [place] of: [address] [address] PATIENT NAME: GENO PRASAD ADMIT DATE: 09/02/21 ACCOUNT NO: [id number] ROOM NO: AGE: 56 REPORT TYPE: eCONSULTATION RADIATION ONC SEX: M ADMITTING PHYSICIAN: ATTENDING PHYSICIAN:Tarsha Mancera MD Date of Service: 09/02/2021 Patient Name: GENO PRASAD Patient : 1965 Patient MR#: [id number] Physician: Tarsha Mancera M.D. Initial Outpatient Consultation Referring Physician: Bro Vargas M.D. Primary Care Physician: Tania Walter M.D. Diagnosis: C20 - Malignant neoplasm of rectum, S tage IIIB, node-positive per Dr. Holt s notes before NCT HPI: Mr. Prasad is a 56yo gentleman referred by Dr. Vargas for consideration of preoperative chemoradiation for a locally adv anced rectal cancer. He presented with GI symptoms of hematochezia in [facility] 2020. Visits to the ER were wasteful as no one examined his rectum or o rdered imaging beside plain abdominal x-ray. He was told it was simp le constipation. He finally went for a colonoscopy on 05/25/[address] Solorio who robin gnosed him with a large, obstructing mass 10cm mass i n the mid-rectum located from 10 to 20 cm above the AV. Biopsy confirmed MD fishman ocarcinoma and CEA proved elevated at 56.3. Staging CT of chest/abdomen/pelvis noted the rectal mass and prominent sreedhar-rectal lymph nodes. Dr. Holt staged his disease as T4N 1 and initiated FOLFOX in the neoadjuvant setting. Mr. Prasad experienced ea se of rectal pain with the chemotherapy and states that he moves a thin but solid stool every day without pain or signs of blood. He has changed [facility] ph ysicians to Dr. Vargas and plans to have Dr. Gramajo do his surgery once pr eop EMERGENCY PHYSICIAN is complete. No evidence of prior PET scan. Review of Systems: No compla ints pertaining to vision, hearing, mouth or throat. Denies cardiovascular, respiratory, musculoskele angella, psychiatric or neurological complaints. No skin or allergy issu es noted. Denies urinary or gastrointestinal complaints. Denies unexplained weight loss. Past Medical History: Conges tive heart failure in 2005, GI bleed in 2020, gout, hemorrhoids, HTN, prior chemotherapy in 2020, re ctal cancer in 2020. Past Surgical History: Colonoscopy on 05/25/2021. Medications: Allopurinol, (3 00 mg) tablet oral, Carvedilol, (25 mg) tablet oral b.i.d, Colace, (100 mg) capsule oral prn, MiraLa x, powder oral prn and [place], tablet oral prn. Allergies: No Known Allergies Family History: No Remarkable Family History Social History: Last screened on 08/31/2021 - Ne apolinar smoked. Last screened on 08/31/2021 - Never drank. Performance Status: ECOG 0 PATIENT NAME: GENO PRASAD 286 Physical Exam: Performed on 09/02/2021 10:25 AM BMI - 28.481 kg/m2 (HIGH) - Height - 72 in - Weight - 210 lbs - Fatigue - 2 - Pain - 0 - Temperature - 98 F - Pulse - 65 /min - O2 Sat - 89 % (LOW) - BP - 92/ 58 mm(hg)(/LOW) - ; The patient is alert and oriented, in no distress. Vital signs notable for low BP but he is asymptomatic. Head is normocephalic , symmetry at facial muscles. Neck examination was negative for adenopathy erlinda aterally. Heart is regular in rate and rhythm. Lungs are clear to auscultation bilaterally. Abdomen was soft and nontender, negative for hepatosplenomeg awa. Neurological exam is non-focal with CN 2-12 grossly intact. Musculosk eletal exam reveals all four extremities with 5/5 motor strength, full sensat ion, reflexes intact. Rectal exam notable or normal sphin cter tone, no palpable mass circumferentially up to 7 cm above AV. Impression and Recommendation: Mr. Yifan ponce is a 56yo gentleman with a locally advanced clinical Stage III adenocarcinoma of the mid-rectum/rectosigmoid colon status post FOLFOX x 3. He understands t he need to proceed with concurrent EMERGENCY PHYSICIAN to fully treat the pelvic lymph nodes and primar y tumor before surgery. The short and long-term side effects of radi ation therapy were reviewed in detail. I will order a PET scan today for treatment plan angelica purposes as well as request initial staging pelvic CT images on disc . All patient questions were answered before obtaining informed consent. A si mulation appointment will be done today to start dagoberto. Sincerely, Electronically signed by: Tarsha Mancera M.D. on 08/16 11:07:00 AM Cc: Shaji Delgadillo M.D. Electronically Signed by Tarsha Mancera MD on 09/02 at 1101 PATIENT NAME: GENO PRASAD 286 2021-09-02 10:49:00-00:00 [id number] [facility] [place]: [place] [address] PATIENT NAME: GENO PRASAD ADMIT DATE: 09/02/21 ACCOUNT NO: [id number] ROOM NO: AGE: 56 REPORT TYPE: ePHYSICIAN ORDER RADIATION ONC SEX: M ADMITTING PHYSICIAN: ATTENDING PHYSICIAN:Tarsha Mancera MD Department of Radiation Oncology [facility] Patient: GENO PRASAD : 1965 MR#: [id number] Physician: Tarsha Mancera M.D. Date: 09/02/2021 Referring Physician: SELF REFERRED Diagnosis: Primary C20 - Malignant neoplasm of r ectum, Diagnosed 08/31/2021 (Active) Stage IIIB, T3, N1, M0 Reason for Visit: ORDERING PHYSICIAN SIGNATURE: Electronically sig darrell by Tarsha Mancera M.D. on 09/02/2021 11:26:45 AM Electronically Signed by Tarsha Mancera MD on 09/02 at 1127 PATIENT NAME: GENO PRASAD [id number]
[2023-04-03 12:46] VITALS: BP 149/119; TEMP 97.7; O2SAT 100
== END 2023-04-03 12:39 | disposition home or self-care (01) ==
LOC: ER 12:00
DX: Z45.2 Encounter for adjustment and management of vascular access device (principal)
CPT/HCPCS: 99282

== ENCOUNTER 2023-05-09 18:09 | Inpatient (IN) | payer OTHER ==
--- OUTSIDE RECORDS SUMMARY | 2023-05-09 18:14 | XMS REPORT | Continuity of Care Document ---
:1965 Author Organization [facility] t Address [address] [facility] [address] [place] [id number] Care Team Providers Name Role Phone SHERYL CHARLES Primary Care Physician Unavailable Tarsha Mancera Attending Clinician Unavailable Lalo Ruiz Attending Clinician Unavailable Nickell_K Attending Clinician Unavailable Clayton Dale MD Attending Clinician Eladio Stafford MD Attending Clinician Shanika Fritz MD Attending Clinician Chris Sibley Attending Clinician SHERYL CHARLES Attending Clinician Unavailable SHERYL CHARLES Attending Clinician Unavailable Seymour Sales Attending Clinician Unavailable NARDA_BCSYolande_Nader_Osorio Attending Clinician Unavailable Lesterrer Parviz PARMAR Attending Clinician Nils Cowan MD Attending Clinician Rhys Gramajo MD Attending Clinician [phone] DERRICK HOLT Attending Clinician Unavailable JENNY ULLOA Attending Clinician Unavailable MD DALLIN CARD Attending Clinician Unavailable MD RHYS GRAMAJO Attending Clinician Unavailable JONATHAN COVINGTON Attending Clinician Unavailable Bro Vargas Admitting Clinician Unavailable Seymour Sales Admitting Clinician Unavailable Nickell_K Admitting Clinician Unavailable ELADIO STAFFORD Admitting Clinician Unavailable [email or web address] Admitting Clinician Unavailable NILS COWAN Admitting Clinician Unavailable TANIA WALTER Admitting Clinician Unavailable KNOW, DOES_NOT Admitting Clinician Unavailable DALLIN CARD Admitting Clinician Unavailable MD DALLIN CARD Admitting Clinician Unavailable MD NILS COWAN Admitting Clinician Unavailable Payers Payer Name Policy Type Policy Number Effective Date Expiration Date S ource [facility] - [id number] [place]MED[place]AC[place] - HMO) [facility] STAR PLUS [id number] 2022 00:00:00 [facility] [id number] (HMO) Problems Condition Condition Condition Status Onset [...] Active Univers ALLERGIE Class ity of [facility] Social History Social Habit Start Date Stop Date Quantity Comments Source History SDOH [facility] Std Drinks Hospit al History SDOH [facility] Gender identity [facility] Sexual orientation Method ist Hospital History of Social 2023-03-28 2023-03-[address] function 00:00:00 00:00:00 Hospital Alcohol intake 2023-03-22 2023-03-22 Lifetime [facility] 00:00:00 00:00:00 non-drinker Hospital (finding) Exposure to 2022-12-05 2022-12-15 Not sure University of SARS-CoV-2 (event) 00:00:00 15:34:00 [facility] Tobacco use and 2021-08-01 2021-08-01 Smokeless [facility] exposure 00:00:00 00:00:00 tobacco non-user Hospital History SDOH 2021-08-01 2021-08-01 1 [facility] Alcohol Frequency 00:00:00 00:00:00 Hospita l Sex Assigned At [birth year] [facility] 00:00:00 00:00:00 Hospital Smoking Status Start Date Stop Date Source Never smoked tobacco [facility]ital Medications Ordered Filled Start Stop Current Ordering Indication Dosage Frequency Signature Comments Components Source Medication Medication Date Date Medication? Clinician (SIG) Name Name carvediloL Yes 25mg QD Take 1 Metho di (COREG) 25 6-14 tablet (25 st MG tablet 19:03: mg total) Hos caity 05 by mouth l daily. carvediloL Yes 25mg QD Take 1 Metho di (COREG) 25 6-14 tablet (25 st MG tablet 19:03: mg total) Hos caity 05 by mouth l daily. carvediloL Yes 25mg QD Take 1 Metho di (COREG) 25 6-14 tablet (25 st MG tablet 19:03: mg total) Hos caity 05 by mouth l daily. ertapenem 1 2022- Yes 1g Q24H Infuse 1 g Methodi g in sodium 6-04-[address] chloride 00:00: 04:59 venous Hospit a 0.9 % MBP 00 :00 catheter l 50 mL IVPB daily for 14 days. ertapenem 1 2022- No 1g Q24H Infuse 1 g Methodi g in sodium 6-14 04-[address] chloride 00:00: 04:59 venous Hospit a 0.9 % MBP 00 :00 catheter l 50 mL IVPB daily for 14 days. ertapenem 1 2023-0 2023- No 1g Q24H Infuse 1 g Methodi g in sodium 03-[address] chloride 00:00: 04:59 venous Hospit a 0.9 % MBP 00 :00 catheter l 50 mL IVPB daily for 14 days. furosemide 2023-0 Yes 40mg QD Take 1 Metho di (LASIX) 40 6-13 tablet (40 st mg tablet 19:03: mg total) Hos caity 32 by mouth l daily. furosemide 2023-0 Yes 40mg QD Take 1 Metho di (LASIX) 40 6-13 tablet (40 st mg tablet 19:03: mg total) Hos caity 32 by mouth l daily. furosemide 2023-0 Yes 40mg QD Take 1 Metho di (LASIX) 40 6-13 tablet (40 st mg tablet 19:03: mg total) Hos caity 32 by mouth l daily. linezolid 2023-0 2023- Yes 600mg Q.5D Take 1 Meth cordelia (ZYVOX) 600 03-[address] mg tablet 00:00: 04:59 (600 mg Hosp cristy 00 :00 total) by l mouth 2 (two) times a day for 14 days. linezolid 3-0 2023- No 600mg Q.5D Take 1 Meth cordelia (ZYVOX) 600 03-[address] mg tablet 00:00: 04:59 (600 mg Hosp cristy 00 :00 total) by l mouth 2 (two) times a day for 14 days. linezolid 2023-0 2023- No 600mg Q.5D Take 1 Meth cordelia (ZYVOX) 600 03-[address] mg tablet 00:00: 04:59 (600 mg Hosp cristy 00 :00 total) by l mouth 2 (two) times a day for 14 days. carvedilol 2023-0 2023- No 20mg Take 1 Univ ers 20 mg 24 hr 12-15 capsule by i ty of capsule 16:06: 00:00 mouth in [place] 28 :00 the Medical morning. Branch carvedilol 2023-0 2023- No 20mg Take 1 Univ ers 20 mg 24 hr 12-15 capsule by i ty of capsule 16:06: 00:00 mouth in [place] 28 :00 the Medical morning. Branch carvedilol 2023-0 Yes [id number] 20mg Take 1 U nivers 20 mg 24 hr 3-02 capsule by it y of capsule 00:00: mouth in [place] 00 the Medical morning. Branch furosemide 2023-0 Yes [id number] 40mg Take 1 U nivers 40 mg 3-02 tablet by ity of tablet 00:00: mouth in [place] 00 the Medical morning. Branch carvedilol 2023-0 Yes [id number] 20mg Take 1 U nivers 20 mg 24 hr 3-02 capsule by it y of capsule 00:00: mouth in [place] 00 the Medical morning. Branch furosemide 2023-0 Yes [id number] 40mg Take 1 U nivers 40 mg 3-02 tablet by ity of tablet 00:00: mouth in [place] 00 the Medical morning. Branch carvedilol 2023-0 Yes [id number] 20mg Take 1 U nivers 20 mg 24 hr 3-02 capsule by it y of capsule 00:00: mouth in [place] 00 the Medical morning. Branch furosemide 2023-0 Yes [id number] 40mg Take 1 U nivers 40 mg 3-02 tablet by ity of tablet 00:00: mouth in [place] 00 the Medical morning. Branch carvedilol 2023-0 Yes [id number] 20mg Take 1 U nivers 20 mg 24 hr 3-02 capsule by it y of capsule 00:00: mouth in [place] 00 the Medical morning. Branch furosemide 2023-0 Yes [id number] 40mg Take 1 U nivers 40 mg 3-02 tablet by ity of tablet 00:00: mouth in [place] 00 the Medical morning. Branch amoxicillin 2023-0 Yes 875mg Take 1 Uni vers 875 mg 2-24 tablet by ity of tablet 00:00: mouth [place] 00 every 12 Medical (twelve) Branch hours. amoxicillin 2023-0 Yes 875mg Take 1 Uni vers 875 mg 2-24 tablet by ity of tablet 00:00: mouth [place] 00 every 12 Medical (twelve) Branch hours. amoxicillin 2023-0 Yes 875mg Take 1 Uni vers 875 mg 2-24 tablet by ity of tablet 00:00: mouth [place] 00 every 12 Medical (twelve) Branch hours. [...] caity 03 by mouth l daily. carvedilol 2023-0 2023- No 20mg Q.5D Take [...] Q.5D Take 1 Meth cordelia CR (COREG [address] CR) 20 MG 15:19: 00:00 (20 mg Hospi ta 24 hr 03 :00 total) by l capsule mouth 2 (two) times a day. carvedilol 2023-0 2023- No 20mg Q.5D Take 1 Meth cordelia CR (COREG [address] CR) 20 MG 15:19: 00:00 [...] mouth 2 (two) times a day. carvediloL 2023-0 2023- No 12.5mg Q.5D Take 1 Me thodi (COREG) -03 12-[address] 12.5 MG 00:00: 05:59 (12.5 mg Hospi ta tablet 00 :00 total) by l mouth 2 (two) times a day for 30 days. carvediloL 2023-0 2023- No 12.5mg Q.5D Take 1 Me thodi (COREG) -03 12-[address] 12.5 MG 00:00: 05:59 (12.5 mg Hospi ta tablet 00 :00 total) by l mouth 2 (two) times a day for 30 days. carvediloL 2023-0 2023- No 12.5mg Q.5D Take 1 Me thodi (COREG) -18 -[address] 12.5 MG 00:00: 05:59 (12.5 mg Hospi ta tablet 00 :00 total) by l mouth 2 (two) times a day for 30 days. carvediloL 2023-0 2023- No 12.5mg Q.5D Take 1 Me thodi (COREG) 1-18 -[address] 12.5 MG 00:00: 05:59 (12.5 mg Hospi ta tablet 00 :00 total) by l mouth 2 (two) times a day for 30 days. carvediloL 2023-0 2023- No 12.5mg Q.5D Take 1 Me thodi (COREG) -18 -[address] 12.5 MG 00:00: 05:59 (12.5 [...] ity of tablet 00:00: 00:00 mouth in [place] 00 :00 the Medical morning. Branch furosemide 2021-10- No 40mg Take 1 Univ ers 40 mg 12-07- tablet by ity of tablet 00:00: 00:00 mouth in [place] 00 :00 the Medical morning. Branch No [...] blood 2022-12-15 21:45:00 126 mm[Hg] Univer sity of [facility] Diastolic blood 2022-12-15 21:45:00 86 mm[Hg] Unive rsity [facility] Heart rate 2022-12-15 21:45:00 104 /min [facility] Body temperature 2022-12-15 21:45:00 35.94 [facility] height 2022-12-15 21:45:00 188 cm [facility] Body weight 2022-12-15 21:45:00 106.595 kg [facility] BMI 2022-12-15 21:45:00 30.17 kg/m2 [facility] Oxygen saturation in 2022-12-15 21:45:00 97 /min [facility] Arterial blood by [facility] Pulse oximetry [place] Systolic blood 2023-03-28 21:07:06 122 mm[Hg] [facility] pressure Diastolic blood 2023-03-28 21:07:06 78 mm[Hg] [facility] pressure Heart rate 2023-03-28 21:07:06 84 /min [facility] Body temperature 2023-03-28 21:07:06 36.17 Mary Carmen [facility] Respiratory rate 2023-03-28 21:07:06 18 /min [facility] Oxygen saturation in 2023-03-28 21:07:06 97 /min [facility] Arterial blood by Pulse oximetry Body height 2023-03-23 00:01:00 188 cm [facility] Body weight 2023-03-23 00:01:00 113.399 kg [facility] BMI 2023-03-23 00:01:00 32.10 kg/m2 [facility] Systolic blood 2022-11-02 13:50:01 147 mm[Hg] [facility] pressure Diastolic blood 2022-11-02 13:50:01 87 mm[Hg] [facility] pressure Heart rate 2022-11-02 13:50:01 90 /min [facility] Body temperature 2022-11-02 13:50:01 36 Mary Carmen [facility] Respiratory rate 2022-11-02 13:50:01 18 /min [facility] Oxygen saturation in 2022-11-02 13:50:01 99 /min [facility] Arterial blood by Pulse oximetry Body height 2022-10-25 11:00:00 188 cm [facility] Body weight 2022-10-25 11:00:00 113.399 kg [facility] BMI 2022-10-25 11:00:00 32.10 kg/m2 [facility] Procedures Procedure Date / Time Performing Clinician Source Performed PICC INSERTION REQUEST 2023-03-28 14:05:23 Justa Winter [facility] CBC WITH PLATELET AND 2023-03-28 10:15:00 [facility] DIFFERENTIAL BASIC METABOLIC PANEL 2023-03-28 10:15:00 [facility] ESTIMATED GFR 2023-03-28 10:15:00 [facility] CBC WITH PLATELET AND 2023-03-27 09:08:00 [facility] DIFFERENTIAL BASIC METABOLIC PANEL 2023-03-27 09:08:00 [facility] VANCOMYCIN LEVEL, RANDOM 2023-03-27 09:08:00 [facility] ESTIMATED GFR 2023-03-27 09:08:00 [facility] CBC WITH PLATELET AND 2023-03-26 09:53:00 [facility] DIFFERENTIAL BASIC METABOLIC PANEL 2023-03-26 09:53:00 [facility] ESTIMATED GFR 2023-03-26 09:53:00 [facility] CBC WITH PLATELET AND 2023-03-25 09:05:00 [facility] DIFFERENTIAL BASIC METABOLIC PANEL 2023-03-25 09:05:00 [facility] ESTIMATED GFR 2023-03-25 09:05:00 [facility] MANUAL DIFFERENTIAL 2023-03-25 09:05:00 [facility] CBC WITH PLATELET AND 2023-03-24 16:23:00 [facility] DIFFERENTIAL BASIC METABOLIC PANEL 2023-03-24 16:23:00 Adelita, Rich [facility] ESTIMATED GFR 2023-03-24 16:23:00 [facility] TRANSFUSE RED BLOOD CELLS 2023-03-23 16:26:00 [facility] TRANSFUSE RED BLOOD CELLS 2023-03-23 12:38:00 [facility] TYPE AND SCREEN 2023-03-23 10:11:00 [facility] PREPARE RBC 2023-03-23 10:11:00 [facility] CBC WITH PLATELET AND 2023-03-23 09:33:00 [facility] DIFFERENTIAL COMPREHENSIVE METABOLIC 2023-03-23 09:33:00 [facility] PANEL ESTIMATED GFR 2023-03-23 09:33:00 [facility] MANUAL DIFFERENTIAL 2023-03-23 09:33:00 [facility] ESTIMATED GFR 2023-03-23 08:45:00 [facility] TROPONIN T 2023-03-23 03:03:00 Clayton Dale spital LACTIC ACID LEVEL, SEPSIS - 2023-03-23 03:03:00 Clayton Dale [facility] NOW AND REPEAT 2X EVERY 3 HOURS CREATININE LEVEL, URINE, 2023-03-23 01:44:00 Clayton Dale [facility] RANDOM SODIUM LEVEL, URINE, RANDOM 2023-03-23 01:44:00 [facility] PROTEIN, URINE, RANDOM 2023-03-23 01:44:00 [facility] URINE CULTURE 2023-03-23 00:49:00 [facility] spital URINALYSIS SCREEN AND 2023-03-23 00:24:00 [facility] MICROSCOPY, WITH REFLEX TO CULTURE LACTIC ACID LEVEL, SEPSIS - 2023-03-22 23:45:00 [facility] NOW AND REPEAT 2X EVERY 3 HOURS COMPREHENSIVE METABOLIC 2023-03-22 23:27:00 [facility] PANEL TROPONIN T 2023-03-22 23:27:00 [facility] spital CREATINE KINASE, TOTAL 2023-03-22 23:27:00 [facility] ([facility]) ESTIMATED GFR 2023-03-22 23:27:00 [facility] spital VENOUS BLOOD GAS 2023-03-22 22:41:00 [facility] ospital BLOOD CULTURE, AEROBIC & 2023-03-22 22:29:00 [facility] ANAEROBIC CBC WITH PLATELET AND 2023-03-22 22:27:00 [facility] DIFFERENTIAL LACTIC ACID LEVEL, SEPSIS - 2023-03-22 22:27:00 [facility] NOW AND REPEAT 2X EVERY 3 HOURS MANUAL DIFFERENTIAL 2023-03-22 22:27:00 [facility] XR CHEST 1 VW PORTABLE 2023-03-22 22:00:04 [facility] ECG 12-LEAD 2023-03-22 21:26:46 [facility] spital ESTIMATED GFR 2023-03-22 21:13:00 [facility] spital CT ABDOMEN PELVIS WO 2023-03-22 21:10:07 [facility] CONTRAST FL CRITICAL CARE 2023-03-22 20:41:38 [facility] ospital ILL/INJURED PATIENT INIT 30-74 MIN ECG ED PRELIMINARY 2023-03-22 20:41:38 [facility] INTERPRETATION CBC WITH PLATELET AND 2022-11-02 11:12:00 [facility]FFER[facility] BASIC METABOLIC PANEL 2022-11-02 11:12:00 Camryn, [facility] ESTIMATED GFR 2022-11-02 11:12:00 Nils Cowan Ho spital CBC WITH PLATELET AND 2022-11-01 11:35:00 Camryn, [facility] DIFFERENTIAL BASIC METABOLIC PANEL 2022-11-01 11:35:00 Camryn [facility] ESTIMATED GFR 2022-11-01 11:35:00 Nils Cowan Ho spital PROTEIN, URINE, RANDOM 2022-10-31 19:03:00 [facility] ALBUMIN WITH CREATININE AND 2022-10-31 19:03:00 [facility] RATIO, RANDOM URINE CREATININE LEVEL, URINE, 2022-10-31 19:03:00 [facility] RANDOM CBC WITH PLATELET AND 2022-10-31 12:10:00 Camryn [facility] DIFFERENTIAL BASIC METABOLIC PANEL 2022-10-31 12:10:00 Camryn [facility] ESTIMATED GFR 2022-10-31 12:10:00 Nils Cowan Ho spital CBC WITH PLATELET AND 2022-10-30 11:30:00 Camryn, [facility] DIFFERENTIAL BASIC METABOLIC PANEL 2022-10-30 11:30:00 Camryn, [facility] ESTIMATED GFR 2022-10-30 11:30:00 Nils Cowan Ho spital CBC WITH PLATELET AND 2022-10-29 11:45:00 Camryn, [facility] DIFFERENTIAL BASIC METABOLIC PANEL 2022-10-29 11:30:00 Camryn, [facility] ESTIMATED GFR 2022-10-29 11:30:00 Nils Cowan Ho spital IR LEFT NEPHROSTOMY INITIAL 2022-10-28 23:27:00 Samir Saha [facility] PLACEMENT IR RIGHT NEPHROSTOGRAM NEW 2022-10-28 23:27:00 Samir Saha [facility] ACCESS CBC WITH PLATELET AND 2022-10-28 11:29:00 [facility]FFER[facility] COMPREHENSIVE METABOLIC 2022-10-28 11:29:00 [facility]FR 2022-10-28 11:29:00 Camryn [facility] spital CBC WITH PLATELET AND 2022-10-27 12:38:00 [facility] DIFFERENTIAL COMPREHENSIVE METABOLIC 2022-10-27 12:38:00 [facility] PANEL BASIC METABOLIC PANEL 2022-10-27 12:38:00 [facility] ESTIMATED GFR 2022-10-27 12:38:00 [facility] MRI PELVIS W WO CONTRAST 2022-10-26 16:51:00 [facility] MRI ABDOMEN W WO CONTRAST 2022-10-26 16:40:00 [facility] COVID-19 QUALITATIVE RT-PCR 2022-10-26 13:42:00 [facility] CBC WITH PLATELET AND 2022-10-26 09:30:00 [facility] DIFFERENTIAL COMPREHENSIVE METABOLIC 2022-10-26 09:30:00 [facility] PANEL PHOSPHORUS LEVEL 2022-10-26 09:30:00 [facility] CARCINOEMBRYONIC ANTIGEN 2022-10-26 09:30:00 [facility] (CEA) FERRITIN LEVEL 2022-10-26 09:30:[address] [facility] spital PROTHROMBIN TIME WITH INR 2022-10-26 09:30:00 [facility] ESTIMATED GFR 2022-10-26 09:30:00 Camryn [facility] spital CT CHEST WO CONTRAST 2022-10-25 23:50:23 [facility] 2022-10-25 17:30:04 [facility] URINALYSIS SCREEN AND 2022-10-25 17:01:00 [facility] MICROSCOPY, WITH REFLEX TO CULTURE SODIUM LEVEL, URINE, RANDOM 2022-10-25 17:01:00 [facility] CHLORIDE LEVEL, URINE, 2022-10-25 17:01:00 [facility] RANDOM CREATININE LEVEL, URINE, 2022-10-25 17:01:00 [facility] RANDOM URINE CULTURE 2022-10-25 16:55:[address] [facility] [address] ABDOMEN PELVIS WO 2022-10-25 14:31:42 Rehrer, [facility] CONTRAST CBC WITH PLATELET AND 2022-10-25 12:41:00 Rehrer, [facility] DIFFERENTIAL COMPREHENSIVE METABOLIC 2022-10-25 12:41:00 Rehrer, [facility] PANEL LIPASE LEVEL 2022-10-25 12:41:00 Rehre, [facility] URINALYSIS SCREEN AND 2022-10-25 12:41:00 Rehrer, [facility] MICROSCOPY, WITH REFLEX TO CULTURE LACTIC ACID LEVEL 2022-10-25 12:41:00 Rehrer, [facility] ESTIMATED GFR 2022-10-25 12:41:00 Amador Beatty jill Ayoub URINE CULTURE 2022-10-25 12:30:00 Rehrer, [facility] CT CHEST EXTERNAL STUDY 2022-08-16 16:25:[address] [facility] Jeremy Plan of Care Planned Activity Planned Date Details Comments Source Future Scheduled 2023-04-19 Pneumococcal Vaccine: [facility] Test 07:50:51 Pediatrics (0 to 5 Years) and At-Risk Patients (6 to 64 Years) (1 - PCV) [code = Pneumococcal Vaccine: Pediatrics (0 to 5 Years) and At-Risk Patients (6 to 64 Years) (1 - PCV)] Future Scheduled 2023-04-19 Hepatitis C screening [facility] Test 07:50:51 (procedure) [code = 766366623] Future Scheduled 2023-04-19 SHINGLES VACCINES (1 Met [facility] Test 07:50:51 of 2) [code = SHINGLES VACCINES (1 of 2)] Future Scheduled 2023-04-19 COVID-19 VACCINE (5 - [facility] Test 07:50:51 Moderna series) [code = COVID-19 VACCINE (5 - Moderna series)] Future Scheduled 2023-04-19 INFLUENZA VACCINE Method [facility] Test 07:50:51 [code = INFLUENZA VACCINE] Future Scheduled 2023-04-07 Pneumococcal Vaccine: [facility] Test 08:01:08 Pediatrics (0 to 5 Years) and At-Risk Patients (6 to 64 Years) (1 - PCV) [code = Pneumococcal Vaccine: Pediatrics (0 to 5 Years) and At-Risk Patients (6 to 64 Years) (1 - PCV)] Future Scheduled 2023-04-07 Hepatitis C screening [facility] Test 08:01:08 (procedure) [code = [id number]] Future Scheduled 2023-04-07 SHINGLES VACCINES (1 Met [facility] Hospital Test 08:01:08 of 2) [code = SHINGLES VACCINES (1 of 2)] Future Scheduled 2023-04-07 COVID-19 VACCINE (5 - [facility] Test 08:01:08 Moderna series) [code = COVID-19 VACCINE (5 - Moderna series)] Future Scheduled 2023-04-07 INFLUENZA VACCINE Method [facility] Test 08:01:08 [code = INFLUENZA VACCINE] Future Scheduled 2023-03-31 Pneumococcal Vaccine: [facility] Test 10:53:42 Pediatrics (0 to 5 Years) and At-Risk Patients (6 to 64 Years) (1 - PCV) [code = Pneumococcal Vaccine: Pediatrics (0 to 5 Years) and At-Risk Patients (6 to 64 Years) (1 - PCV)] Future Scheduled 2023-03-31 Hepatitis C screening [facility] Test 10:53:42 (procedure) [code = [id number]] Future Scheduled 2023-03-31 SHINGLES VACCINES (1 Met [facility] Hospital Test 10:53:42 of 2) [code = SHINGLES VACCINES (1 of 2)] Future Scheduled 2023-03-31 COVID-19 VACCINE (5 - [facility] Test 10:53:42 Moderna series) [code = COVID-19 VACCINE (5 - Moderna series)] Future Scheduled 2023-03-31 INFLUENZA VACCINE Method [facility] Test 10:53:42 [code = INFLUENZA VACCINE] Future Scheduled 2023-01-16 Pneumococcal Vaccine: [facility] Test 20:02:08 Pediatrics (0 to 5 Years) and At-Risk Patients (6 to 64 Years) (1 - PCV) [code = Pneumococcal Vaccine: Pediatrics (0 to 5 Years) and At-Risk Patients (6 to 64 Years) (1 - PCV)] Future Scheduled 2023-01-16 Hepatitis C screening [facility] Test 20:02:08 (procedure) [code = [id number]] Future Scheduled 2023-01-16 SHINGLES VACCINES (1 Met [facility] Test 20:02:08 of 2) [code = SHINGLES VACCINES (1 of 2)] Future Scheduled 2023-01-16 COLONOSCOPY SCREENING [facility] Test 20:02:08 [code = COLONOSCOPY SCREENING] Future Scheduled 2023-01-16 COVID-19 VACCINE (5 - [facility] Test 20:02:08 Booster for Moderna series) [code = COVID-19 VACCINE (5 - Booster for Moderna series)] Future Scheduled 2023-01-16 INFLUENZA VACCINE Method [facility] Test 20:02:08 [code = INFLUENZA VACCINE] Future Scheduled 2022-12-06 Pneumococcal Vaccine: [facility] Test 08:31:10 Pediatrics (0 to 5 Years) and At-Risk Patients (6 to 64 Years) (1 - PCV) [code = Pneumococcal Vaccine: Pediatrics (0 to 5 Years) and At-Risk Patients (6 to 64 Years) (1 - PCV)] Future Scheduled 2022-12-06 Hepatitis C screening [facility] Test 08:31:10 (procedure) [code = [id number]] Future Scheduled 2022-12-06 SHINGLES VACCINES (1 Met [facility] Test 08:31:10 of 2) [code = SHINGLES VACCINES (1 of 2)] Future Scheduled 2022-12-06 COLONOSCOPY SCREENING [facility] Test 08:31:10 [code = COLONOSCOPY SCREENING] Future Scheduled 2022-12-06 INFLUENZA VACCINE Method [facility] Test 08:31:10 [code = INFLUENZA VACCINE] Future Scheduled 2022-12-06 COVID-19 VACCINE (5 - [facility] Test 08:31:10 Booster for Moderna series) [code = COVID-19 VACCINE (5 - Booster for Moderna series)] Future Scheduled 2022-11-30 Pneumococcal Vaccine: [facility] Test 08:08:13 Pediatrics (0 to 5 Years) and At-Risk Patients (6 to 64 Years) (1 - PCV) [code = Pneumococcal Vaccine: Pediatrics (0 to 5 Years) and At-Risk Patients (6 to 64 Years) (1 - PCV)] Future Scheduled 2022-11-30 Hepatitis C screening [facility] Test 08:08:13 (procedure) [code = [id number]] Future Scheduled 2022-11-30 SHINGLES VACCINES (1 Met [facility] Hospital Test 08:08:13 of 2) [code = SHINGLES VACCINES (1 of 2)] Future Scheduled 2022-11-30 COLONOSCOPY SCREENING [facility] Test 08:08:13 [code = COLONOSCOPY SCREENING] Future Scheduled 2022-11-30 INFLUENZA VACCINE Method is Hospital Test 08:08:13 [code = INFLUENZA VACCINE] Future Scheduled 2022-11-30 COVID-19 VACCINE (5 - [facility] Test 08:08:13 Booster for Moderna series) [code = COVID-19 VACCINE (5 - Booster for Moderna series)] Future Scheduled 2022-11-16 Pneumococcal Vaccine: [facility] Test 08:53:45 Pediatrics (0 to 5 Years) and At-Risk Patients (6 to 64 Years) (1 - PCV) [code = Pneumococcal Vaccine: Pediatrics (0 to 5 Years) and At-Risk Patients (6 to 64 Years) (1 - PCV)] Future Scheduled 2022-11-16 Hepatitis C screening [facility] Test 08:53:45 (procedure) [code = [id number]] Future Scheduled 2022-11-16 SHINGLES VACCINES (1 Met [facility] Hospital Test 08:53:45 of 2) [code = SHINGLES VACCINES (1 of 2)] Future Scheduled 2022-11-16 COLONOSCOPY SCREENING [facility] Test 08:53:45 [code = COLONOSCOPY SCREENING] Future Scheduled 2022-11-16 INFLUENZA VACCINE Method is Hospital Test 08:53:45 [code = INFLUENZA VACCINE] Future Scheduled 2022-11-16 COVID-19 VACCINE (5 - [facility] Test 08:53:45 Booster for Moderna series) [code = COVID-19 VACCINE (5 - Booster for Moderna series)] Future Scheduled 2022-09-26 Hepatitis C screening [facility] Test 23:54:04 (procedure) [code = [id number]] Future Scheduled 2022-09-26 COLONOSCOPY SCREENING [facility] Test 23:54:04 [code = COLONOSCOPY SCREENING] Future Scheduled 2022-09-26 SHINGLES VACCINES (1 Met [facility] Test 23:54:04 of 2) [code = SHINGLES VACCINES (1 of 2)] Future Scheduled 2022-09-26 INFLUENZA VACCINE Method [facility] Test 23:54:04 [code = INFLUENZA VACCINE] Future Scheduled 2022-09-26 COVID-19 VACCINE (5 - [facility] Test 23:54:04 Booster for Moderna series) [code = COVID-19 VACCINE (5 - Booster for Moderna series)] Future Scheduled 2022-09-26 Hepatitis C screening [facility] Test 23:54:04 (procedure) [code = [id number]] Future Scheduled 2022-09-26 COLONOSCOPY SCREENING [facility] Test 23:54:04 [code = COLONOSCOPY SCREENING] Future Scheduled 2022-09-26 SHINGLES VACCINES (1 Met [facility] Test 23:54:04 of 2) [code = SHINGLES VACCINES (1 of 2)] Future Scheduled 2022-09-26 INFLUENZA VACCINE Method [facility] Test 23:54:04 [code = INFLUENZA VACCINE] Future Scheduled 2022-09-26 COVID-19 VACCINE (5 - Me [facility] Test 23:54:04 Booster for Moderna series) [code = COVID-19 VACCINE (5 - Booster for Moderna series)] Future Scheduled 2022-08-26 HEPATITIS B VACCINES Met [facility] Test 02:17:57 (1 of 3 - 3-dose series) [code = HEPATITIS B VACCINES (1 of 3 - 3-dose series)] Future Scheduled 2022-08-26 Hepatitis C screening [facility] Test 02:17:57 (procedure) [code = [id number]] Future Scheduled 2022-08-26 COLONOSCOPY SCREENING [facility] Test 02:17:57 [code = COLONOSCOPY SCREENING] Future Scheduled 2022-08-26 SHINGLES VACCINES (1 Met [facility] Test 02:17:57 of 2) [code = [...] ID 2022-09-15 Inpatient Tarsha Butts [facility] RTX [id number] [facility] 00:08:00 00 [facility] 2022-02-13 Inpatient Tarsha Mancera [facility] RTX [id number] [facility] 15:50:00 64 [facility] 2022-01-14 Inpatient Tarsha Butts [facility] RTX [id number] [facility] 16:09:00 81 [facility] 2023-04-13 2023-04-13 Outpatient Lalo Sierra HCAPM RADI LA0 [id number] [facility] 14:47:00 14:47:00 19 [facility] 2023-04-13 2023-04-13 Out[place] Nickell_[place] [address] [place] 00:00:00 00:00:00 [address] [facility] 2023-04-09 2023-04-09 Outpatient Nickell_K HMU U [address] [place] 00:00:00 00:00:00 [address] [facility] 2023-03-22 2023-03-28 [facility] [place] 1..840.1 [id number] Methodi 15:37:00 19:03:00 Encounter Eladio Stafford 47458.1.1 050 Shanika Fritz KEarnest 3.430.2.7 [facility] Chris Sibley .3.292881 l .8 2023-03-22 2023-03-28 [facility] YOKO 1Earnest2.840.1 [id number] [address] [place] 00:00:00 00:00:00 Encounter CHRIS 74452.1.1 [address] .3.633790 .8 2023-03-22 2023-03-22 Travel 1.2.840.1 1.2.327.627 0486 [id number] Methodi 00:00:00 00:00:[address] 3.430.2.7 0.2.7.3.698 Ho spita .3.166889 084.8 l .8 2023-03-22 2023-03-22 Travel 1.2.840.1 1.2.053.047 5423 [id number] Methodi 00:00:00 00:00:[address] 3.430.2.7 0.2.7.3.698 Ho spita .3.390718 084.8 l .8 2023-03-17 2023-03-17 Outpatient SHERYL BASS [facility] [id number] Univers 15:20:00 15:20:00 SHERYL CHARLES [facility] 2022-12-20 2022-12-20 Outpatient GC_BCSS_How PRIV PRIV 267 [id number] [facility] 00:00:00 00:00:00 too_Osorio [id number] Medic al 2022-12-16 2022-12-16 Outpatient GC_BCSS_How PRIV PRIV 267 33975-5 [facility] 00:00:00 00:00:00 ell_Dan1 [id number] Medic al 2022-12-16 2022-12-16 [facility] 1.2.303.319 0684 [id number] Univers 00:00:00 00:00:00 [facility] 4.2.7.2.686 Ramón as JO ANN?BLEA [phone] [address] MEDICAL OFFICE BUILDING 2022-12-15 2022-12-15 [facility] [id number] Univers 15:20:00 16:12:20 [facility] 2022-12-15 2022-12-15 Office [facility] 1.2.840.114 [id number] Univers 15:20:00 16:12:20 Visit [facility] 350.1.13.10 ity radha [facility] 4.2.7.2.686 Ramón as JO ANN?BLEA [phone] Nm richard HERNÁNDEZ [address] [place] [address] MEDICAL OFFICE [facility] 2022-12-13 2022-12-13 Outpatient GC_BCSS_How PRIV PRIV 267 [id number] [facility] 00:00:00 00:00:00 too_DanSharonda [id number] Medic al 2022-11-23 2022-11-23 Travel 1.2.840.1 1.2.703.067 7924 [id number] Methodi 00:00:00 00:00:[address] 3.430.2.7 0.2.7.3.698 Ho spita .3.625153 084.8 l .8 2022-11-23 2022-11-23 Travel 1.2.840.1 1.2.704.205 8498 314421 Methodi 00:00:00 00:00:[address] 3.430.2.7 0.2.7.3.698 Ho spita .3.175520 084.8 l .8 2022-10-25 2022-11-02 [facility] Rehre Parviz Charlie 1.2.840.1 104 [id number] Methodi 05:01:00 15:19:00 Encounter Cam[address]Nils [address]213.1.[address] 3.430.2.7 Hospit a .3.539719 l .8 2022-10-25 2022-11-02 [facility] Charlie 1.2.840.1 104 [id number] Methodi 05:01:00 15:19:00 Encounter Cha Cowangreer [address]68.1.[address] 3.430.2.7 Hospit a .3.964169 l .8 2022-10-25 2022-10-25 Travel 1.2.840.1 1.2.361.831 2570 724806 Methodi 00:00:00 00:00:[address] 3.430.2.7 0.2.7.3.698 Ho spita .3.593610 084.8 l .8 2022-10-25 2022-10-25 Travel 1.2.840.1 1.2.553.177 3286 379350 Methodi 00:00:00 00:00:[address] 3.430.2.7 0.2.7.3.698 Ho spita .3.033379 084.8 l .8 2022-09-01 2022-09-14 Outpatient EL Tarsha Mancera [facility] RTX [id number] [facility] 09:25:00 00:00:00 94 [facility] 2022-08-25 2022-08-25 Hospital Rox, 1.2.840.1 [id number] 2099 [id number] Methodi 08:26:09 23:59:00 Encounter Rhys 70971.1.[address] Jeremy 3.430.2.7 Hospit a .3.606131 l .8 2022-08-25 2022-08-25 Hospital [facility], 1.2.840.1 [id number] 2099 [id number] Methodi 08:26:09 23:59:00 Encounter Rhys 03340.1.[address] Jeremy 3.430.2.7 Hospit a .3.670483 l .8 2022-04-25 2022-04-25 Outpatient EL Tarsha Mancera HCA[facility]U HCAWU [id number] 11-04 [facility] 09:28:00 09:28:00 [id number] [facility] 2022-04-25 2022-04-25 Outpatient EL Tarsha Mancera [facility] RTX [id number] [facility] 09:28:00 09:28:00 74 [facility] 2022-01-14 2022-02-12 Outpatient EL Tarsha Mancera [facility] RTX [id number] [facility] 08:34:00 00:00:00 74 [facility] 2021-12-14 2022-01-13 Inpatient EL Tarsha Mancera [facility] RTX [id number] [facility] 14:32:00 00:00:00 52 [facility] 2021-12-27 2021-12-27 Inpatient EL Oh, Tarsha CLARKEWU SUGL [id number] [facility] 10:30:00 09:30:00 05 [facility] 2021-12-21 2021-12-21 Outpatient EL Oh, Tarsha CLARKEWU SUGL [id number] [facility] 09:11:00 09:11:00 36 [facility] 2021-10-18 2021-11-15 Inpatient EL Oh, Tarsha CLARKEWU RTX [id number] [facility] 11:23:00 00:00:00 91 [facility] 2021-09-02 2021-09-14 Outpatient EL Oh, Tarsha CLARKEWU RTX [id number] [facility] 10:13:00 00:00:00 86 [facility] 2021-09-08 2021-09-08 Outpatient EL Oh, Tarsah CLARKEWU SUGL [id number] [facility] 08:46:00 08:46:00 74 [facility] 2021-08-06 2021-08-06 Outpatient DERRICK HOLT [facility] 070 [id number] [place] 00:00:00 00:00:00 871 Method i 2021-08-04 2021-08-04 Outpatient DERRICK HOLT [facility] 700 [id number] [place] 00:00:00 00:00:00 776 Method i 2021-08-01 2021-08-03 Outpatient LAILA, [facility] [id number] 856 [place] 00:00:00 00:00:00 JENNY [address] 2021-07-23 2021-07-23 Outpatient DERRICK HOLT [facility] 184 [id number] [place] 00:00:00 00:00:[address] 2021-07-23 2021-07-23 Outpatient DERRICK HOLT [facility] 635 [id number] [place] 00:00:00 00:00:[address] 2021-07-21 2021-07-21 Outpatient DERRICK HOLT [facility] 384 [id number] [place] 00:00:00 00:00:[address] 2021-07-21 2021-07-21 Outpatient DERRICK HOLT [facility] 937 [id number] [place] 00:00:00 00:00:00 867 Method i 2021-06-28 2021-07-06 Inpatient NILS COWAN [facility] 078 [id number] 67580 [place] 00:00:00 00:00:00 942 Method i 2021-06-02 2021-06-02 Outpatient JONATHAN COVINGTON [facility] 2100 [id number] [place] 00:00:00 00:00:00 065 Method i 2021-04-26 2021-04-26 Emergency X [facility] ERT [id number] Univers 16:39:00 16:39:00 [facility] Results Test Description Test Time Test Comments Results Result [facility] e Comments - CT ABD PELVIS 2023-03-17 W/O CONT 9 16:44:00 [facility] 1965 Sex: M Name: GENO PRASAD [facility] : 1965 Age/S: 57 / M [address] [address] [place] Unit #: [id number] Loc: [place] [address] Phys: Lalo Ruiz MD Acct: [id number] Dis Date: Status: REG CLI PHONE #: [phone] Exam Date: 04/13/2023 150 FAX #: Reason: HYDRONEPHROSIS DUE TO OBSTRUTION OF URETER EXAMS: CPT: [id number] CT ABD PELVIS W/O CONT 01955 EXAMINATION: - CT ABD PELVIS W/O CONT. LOCATION: B2. HISTORY: HYDRONEPHROSIS DUE TO OBSTRUTION OF URETER. COMPARISON: Head/CT dated 12/21/2021. TECHNIQUE: CT abdomen and pelvis was performed without the use of IV contrast. Sagittal and coronal reconstructed images were available for review. This exam was performed according to our departmental dose-optimization program, which includes automated exposure control, adjustment of the mA and/or kV according to patient size, and/or use of iterative reconstruction technique. Unless otherwise specified, incidental findings do not require dedicated imaging follow-up. FINDINGS: Lower chest: Small nodules are seen in the right lower lobe measuring up to 6 mm (axial image 7), increased in number since prior exam. 4 mm left lower lobe nodule is new (axial image). Heart size is normal. Abdomen and pelvis: Moderate right hydroureteronephrosis is present to the level of the urinary bladder. No obstructing stone is identified. Left nephrostomy catheter is in place without hydronephrosis. 1.2 cm left renal cyst is noted. The noncontrast appearance of the liver, gallbladder, pancreas, spleen, and bilateral adrenal normal limits. Couple enlarged retroperitoneal lymph nodes are seen measuring up to 2.1 cm in short axis (axial image 38), new since prior exam. Mildly enlarged bilateral internal iliac lymph nodes are also noted. Urinary bladder wall thickening is seen with adjacent edema. Mild presacral edema is also present. Left lower quadrant colostomy is present with herniation of several small bowel loops through the stoma. Right lower quadrant colostomy is also present. There is no evidence of bowel obstruction. There is no pneumoperitoneum. Mild degenerative changes are seen in the spine. No acute osseous PAGE 1 Signed Report (CONTINUED) Name: GENO PRASAD : 1965 Age/S: 57 / M [address] [facility] [place] Unit #: [id number] Loc: [place] [address] Phys: Lalo Ruiz MD Acct: [id number] Dis Date: Status: REG CLI PHONE #: [phone] Exam Date: 04/13/2023 1509 FAX #: Reason: HYDRONEPHROSIS DUE TO OBSTRUTION OF URETER EXAMS: CPT: [id number] CT ABD PELVIS W/O CONT 31486 (Continued) abnormality is identified. No aggressive lytic or blastic lesion is seen. IMPRESSION: Moderate right hydroureteronephrosis to the level of the urinary bladder. Left percutaneous nephrostomy catheter in place without hydronephrosis. Significant urinary bladder wall thickening with mild adjacent edema, which may be secondary to cystitis or neoplasm. Retroperitoneal and bilateral internal iliac lymphadenopathy consistent with metastatic disease. Left lower quadrant colostomy with herniation of several small bowel loops through the stoma. There is no evidence of bowel obstruction. Multiple small nodules in the right lower lobe measuring up to 6 mm, increased in number since 12/21/2021. 4 mm left lower lobe nodule is also new. Other findings as described. at 1644 Reported and signed by: Arnulfo Carter M.D. CC: Lalo Ruiz MD; Seymour Sales MD Technologist:Ayden Maxwell, RT,(R),(CT); Erin CTDI: DLP: Trnscb Date/Time: 04/13/2023 (1643) [email or web address] Orig Print D/T: S: 04/13/2023 (5701) PAGE 2 Signed Report Prepare RBC, 2 Units 2023-03-23 16:16:00 Test Item Value Reference Range Interpretation Comme nts Product name (test code = 25) Red Cells AS1 Leukored Irrad Unit number (test code = 0866431) [id number] Product code (test code = 3092) O5364A39 Dispense status (test code = 24) Transfused Blood expiration date (test code = 302) Blood type code (test code = 308) 6200 Blood type (test code = 1314) A POSITIVE Compatibility (test code = 6400) Compatible [facility] RBC, 2 [id number] 16:16:00 Test Item Value Reference Range Interpretation Comments Product name (test code Red Cells AS1 Leukored = 25) Irrad Unit number (test code [id number] = 2781525) Product code (test code A8320Z50 = 3092) Dispense status (test Transfused code = 24) Blood expiration date (test code = 302) Blood type code (test 6200 code = 308) Blood type (test code = A POSITIVE 1314) Compatibility (test Compatible code = 6400) [facility] RBC, 2 [id number] 16:16:00 Test Item Value Reference Range Interpretation Comments Product name (test code Red Cells AS1 Leukored = 25) Irrad Unit number (test code [id number] = 6929244) Product code (test code O7990E77 = 3092) Dispense status (test Transfused code = 24) Blood expiration date (test code = 302) Blood type code (test 6200 code = 308) Blood type (test code = A POSITIVE 1314) Compatibility (test Compatible code = 6400) [address]2023-06-08 03:42:02 Test Item Value Reference Range Interpretation [...] ECG-No previous ECGs available-Electronical ly Signed By Bentley Card MD ([id number]) on 03/22/2023 10:41:52 PM [address]2023-06-08 03:42:02 Test Item Value Reference Range Interpretation [...] for LVH, may be normal variant ( [place] product )-T wave abnormality, consider lateral ischemia-Abnormal ECG-No previous ECGs available-Electronical ly Signed By Bentley Card MD ([id number]) on 03/22/2023 10:41:52 [address]2023-06-08 03:42:02 Test Item Value Reference Range Interpretation [...] previous ECGs available-Electronical ly Signed By Kyaw PRINCE, Apoor ([id number]) on 03/22/2023 10:41:52 PM [facility] VENOUS BLOOD [id number] 21:59:00 Test Item Value Reference Range Interpretation Comments POC VENOUS BLOOD 7.340 pH units 7.26-7.43 N GAS PH (test code = POCPHV) POC VENOUS BLOOD 54.2 mmHg e 35.0-45.0 H GAS PCO2 (test code = OIZYJN0G) POC VENOUS BLOOD 38.8 mmHg e 80.0-100.0 LL GAS PO2 (test code = RTDBV1D) POC TCO2 VENOUS 28.6 MMOL/L e 24.0-30.0 N (test code = FTUFAN4Z) POC HCO3 VENOUS 29.2 MMOL/L e 22.0-26.0 H (test code = IDNKPJ6A) POC BASE EXCESS 2.7 MMOL/L e See_Comment N [Automated VENOUS (test code = message] The system POCBEV) which generated this result transmitted reference range : -3.0 to 3.0. Th e reference range was not used to interpret this result as normal/abnormal . POC O2 SATURATION 69 % e 95-100 L VENOUS (test code = TNAY0BY) POC SAMPLE SOURCE Venous Descript Specimen (test code = POCSAMPLE) CBC W/AUTO [id number] 10:20:00 Test Item Value Reference Range Interpretation [...] NO DIFF/SCN CRITERIA = MDIFF) BASIC METABOLIC [id number] 10:12:00 Test Item Value Reference Range Interpretation [...] recommended for shayy for GFRby the N [facility] for Ad[facility].The GFR will not calculate i f the sex is unknown or if thepatient's ag e is <18 years. CREATININE (test 1.6 MG/DL 0.8-1.3 H code = CREAT) CALCIUM (test code 9.4 MG/DL 8.5-10.1 N = CA) PROTHROMBIN [id number] 09:00:00 Test Item Value Reference Range Interpretation Comments PT PATIENT (test 12.8 SECONDS 9.3-12.9 N code = PTP) INTERNATIONAL NORMAL 1.15 INR Unit 0.8-1.2 N TARGE T INR BY RATIO (test code = INDICATIO N Indication INR) INR1. Prophylax is of venous thrombos is 2.0 - 3.0 (orthope dic surgery), Proph ylaxis of venous throm bosis [...] in Respiratory specimen by YVROSE with probe [id number] 11:43:33 Test Item Value Reference Range Interpretation Comments SARS-CoV-2 (COVID-19) RNA Not detected [Presence] in Respiratory specimen by YVROSE with probe detection (test code = 32408-4) Whether patient is employed in a Unknown healthcare setting (test code = 38305-7) Whether the patient has symptoms Unknown related to condition of interest (test code = 13529-9) Whether the patient was Unknown hospitalized for condition of interest (test code = 66821-6) Whether the patient was admitted Unknown to intensive care unit (ICU) for condition of interest (test code = 37449-0) Whether patient resides in a Unknown congregate care setting (test code = 85559-3) status (test code = Unknown 45868-5) Date and time of symptom onset Unknown (test code = 77610-7) [facility]2023-01-10 18:02:00 Test Item Value Reference Range Interpretation Comments Urine culture (test SEE COMMENT Bacteriu rony screen code = 5048902) negative. [facility]2023-01-10 18:02:00 Test Item Value Reference Range Interpretation Comments Urine culture (test SEE COMMENT Bacteriu rony screen code = 5270690) negative. [facility]2023-01-10 18:02:00 Test Item Value Reference Range Interpretation Comments Urine culture (test SEE COMMENT Bacteriu rony screen code = 0870821) negative. [facility]2023-01-10 18:02:00 Test Item Value Reference Range Interpretation Comments Urine culture (test SEE COMMENT Bacteriu rony screen code = 9797461) negative. [facility] PET/CT TUMOR SK BS [id number] 14:28:00 [facility] 1965 Sex: M Patient Name: GENO PRASAD Unit No: [id number] EXAMS: CPT CODE: [id number] PET/CT TUMOR SK BS MIDTH 25052 EXAMINATION: - PET/CT TUMOR SK BS MIDTH [...] Right chest wall chemotherapy port remains present. Mod erate dose infiltration is seen in the soft tissues of the left arm and there is uptake of tracer inleft axillary lymph nodes. This uptake is not pathologic. There is no mediastinal or right axillary adenopathy. ABDOMEN AND PELVIS: Tracer uptake in the liver, spleen and tract is physiologic. Thereare new FDG avid postoperative changes in the [...] the drain follows the course of the [facility] NAME: GENO PRASAD [address] [facility] 200 PHYS: [place] [address] : 1965 AGE: 56 SEX: M LOC: DayronZNUC PHONE #: [phone] EXAM DATE: 12/21/2021 STATUS: REG CLI FAX #: [phone] RADIOLOGY NO: PAGE 1 Signed Report (CONTINUED) Patient Name: GENO PRASAD Unit No: [id number] EXAMS: CPT CODE: [id number] PET/CT TUMOR SK BS MIDTH 53182 <Continued> sigmoid colon. Uptake in the more [...] RT(M)(CT); Linnea Vasquez RT(N) Transcrpt Date/Tm/Trnsp: 12/21/2021 (1420) JenniferR.AG38 Orig Print D/T: S: 12/21/2021 (6163) [facility] NAME: GENO PRASAD [address] [facility] [address] PHYS: [place] [address] : 1965 AGE: 56 SEX: M LOC: ZEarnestZNUC PHONE #: [phone] EXAM DATE: 12/21/2021 STATUS: REG CLI FAX #: [phone] RADIOLOGY NO: PAGE 2 Signed [id number] 09:50:00 Test Item Value Reference Range Interpretation Comments GLUCOSE (test code = GLU) 98 MG/DL 79-105 N Comments to Systems Applications Programming Lead: FOR PETIs this a LINE draw? N- PET/CT [facility]OR [id number] 13:41:00 [facility] : 1965 Sex: M Patient Name: GENO PRASAD Unit No: [id number] EXAMS: CPT CODE: [id number] PET/CT TUMOR [facility] [address] EXAM: PET/CT scan INDICATION: MALIGNANT NEOPLASM OF RECTUM COMPARISON: None at this time LOCATION: [facility] TECHNIQUE: Approximately 60 minutes following [...] appearing less likely. Follow-up MRI of the lumbarspine without and with contrast is recommended. [facility] NAME: GENO PRASAD [address] [address] [address] PHYS: [place] [address] : 1965 AGE: 56 SEX: M LOC: Z.ZNUC PHONE #: [phone] EXAM DATE: 09/08/2021 STATUS: DEP CLI FAX#: [phone] RADIOLOGY NO: PAGE 1 Signed Report (CONTINUED) Patient Name: GENO PRASAD Unit No: [id number] EXAMS: CPT CODE: [id number] PET/CT TUMOR SK BS MIDTH 10775 <Continued> There are small lymph nodes in [...] (1341) t.SDR.PMT Orig Print D/T: S: 09/10/2021 (0704) [facility] NAME: GENO PRASAD [address] [facility] PHYS: [place] [address] : 1965 AGE: 56 SEX: M LOC: ZEarnestZNUC PHONE #: [phone] EXAM DATE: 09/08/2021 STATUS: DEP CLI FAX #: [phone] RADIOLOGY NO: PAGE 2 Signed [id number] 09:44:00 Test Item Value Reference Range Interpretation Comments GLUCOSE (test code = GLU) 86 MG/DL 79-105 N SARS-CoV-2 (COVID-19) RNA [Presence] in Respiratory specimen by YVROSE with probe [id number] 18:54:41 Test Item Value Reference Range Interpretation Comments SARS-CoV-2 (COVID-19) RNA Not detected Not-Detected [Presence] in Respiratory specimen by YVROSE with probe detection (test code = 03913-1) Whether patient is employed in a healthcare setting (test code = 11794-5) Whether the patient has symptoms related to condition of interest (test code = 96755-0) Patient was hospitalized because of this condition (test code = 46157-9) Whether the patient was admitted to intensive care unit (ICU) for condition of interest (test code = 92846-1) Whether patient resides in a congregate care setting (test code = 51083-0) status (test code = 31569-0) BERNARDO SIMPSONRS-CoV-2 (COVID-19) RNA [Presence] in Respiratory specimen by YVROSE with probe [id number] 16:30:19 Test Item Value Reference Range Interpretation Comments SARS-CoV-2 (COVID-19) RNA Not detected Not-Detected [Presence] in Respiratory specimen by YVROSE with probe detection (test code = 69380-5) Whether patient is employed in a healthcare setting (test code = 79832-2) Whether the patient has symptoms related to condition of interest (test code = 54162-4) Patient was hospitalized because of this condition (test code = 61014-9) Whether the patient was admitted to intensive care unit (ICU) for condition of interest (test code = 78195-3) Whether patient resides in a congregate care setting (test code = 52785-8) [facility] Notes Date/Time Note Provider Source 2022-09-01 11:09:00-00:00 [id number] [facility] [place] [facility]: [facility] [id number] [place] [address] PATIENT NAME: GENO PRASAD ADMIT DATE: 09/01/22 ACCOUNT NO: [id number] ROOM NO: AGE: 57 REPORT TYPE: ePROGRESS NOTE RADIATION ONC SEX: M ADMITTING PHYSICIAN: ATTENDING PHYSICIAN:Tarsha Mancera MD Patient MR#: [id number] Date of Service: 09/01/2022 Patient Name: GENO PRASAD Patient : 1965 Patient MR#: [id number] Physician: Tarsha Mancera M.D. Follow-Up Note Diagnosis: [...] 08/16 11:13:58 AM Cc: Bro Vargas M.D. [address] [place], [place] [address] - - Page 2 of 2 Electronically Signed by Tarsha Mancera MD on 09/01 at 1114 PATIENT NAME: GENO PRASAD 994 2022-09-01 10:57:00-00:00 [id number] [facility] [place] of: [address] [address] PATIENT NAME: GENO PRASAD ADMIT DATE: 09/01/22 ACCOUNT NO: [id number] ROOM NO: AGE: 57 REPORT TYPE: ePHYSICIAN ORDER RADIATION ONC SEX: M ADMITTING PHYSICIAN: ATTENDING PHYSICIAN:Tarsha Mancera MD PHYSICIAN ORDER SCAN SHEET Department of Radiation Oncology [facility] Patient: GENO PRASAD : 1965 MR#: [id number] Physician: Tarsha Mancera M.D. Date: 09/01/2022 Referring Physician: Bro Vargas M.D. 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 on 09/15/2022 2:56:10 PM Electronically Signed by Tarsha Mancera MD on 09/15 at 1456 PATIENT NAME: GENO PRASAD 994 2022-04-25 09:42:00-00:00 0284-1740 [facility] [place] of: [address] [address] PATIENT NAME: GENO PRASAD ADMIT DATE: 04/25/22 ACCOUNT NO: [id number] ROOM NO: AGE: 56 REPORT TYPE: ePHYSICIAN ORDER RADIATION ONC SEX: M ADMITTING PHYSICIAN: ATTENDING PHYSICIAN:Tarsha Mancera MD PHYSICIAN ORDER SCAN SHEET Department of Radiation Oncology [facility] Patient: GENO PRASAD : 1965 MR#: [id number] Physician: Tarsha Mancera M.D. Date: 04/25/2022 Referring Physician: Bro Vargas M.D. 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 on 04/25/2022 11:24:45 AM Electronically Signed by Tarsha Mancera MD on 04/25 at 1124 PATIENT NAME: GENO PRASAD 374 2022-04-25 09:40:00-00:00 [id number] [facility] [place] of: [facility] [address] [place] [address] PATIENT NAME: GENO PRASAD ADMIT DATE: 04/25/22 ACCOUNT NO: [id number] ROOM NO: AGE: 56 REPORT TYPE: ePROGRESS NOTE RADIATION ONC SEX: M ADMITTING PHYSICIAN: ATTENDING PHYSICIAN:Tarsha Mancera MD Patient MR#: [id number] Date of Service: 04/25/2022 Patient Name: GENO PRASAD Patient : 1965 Patient MR#: [id number] Physician: Tarsha Mancera M.D. Follow-Up Note Diagnosis: [...] 04/25 9:51:22 AM Cc: Bro Vargas M.D. [address] [place] [address] - - Page 2 of 2 Electronically Signed by Tarsha Mancera MD on 04/25 at 0951 PATIENT NAME: GENO PRASAD 374 2022-01-31 11:41:00-00:00 [id number] [facility] [place] of: [place] [address] PATIENT NAME: GENO PRASAD ADMIT DATE: 01/14/22 ACCOUNT NO: [id number] ROOM NO: AGE: 56 REPORT TYPE: ePHYSICIAN ORDER RADIATION ONC SEX: M ADMITTING PHYSICIAN: ATTENDING PHYSICIAN:Tarsha Mancera MD PHYSICIAN ORDER SCAN SHEET Department of Radiation Oncology [facility] Patient: GENO PRASAD : 1965 MR#: [id number] Physician: Tarsha Mancera M.D. Date: 01/31/2022 Referring Physician: Bro Vargas M.D. 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 on 02/01/2022 10:25:38 AM Electronically Signed by Tarsha Mancera MD on 02/01 at 1025 PATIENT NAME: GENO PRASAD 074 2022-01-19 13:17:00-00:00 7847-4428 [facility] [place] of: [place] [address] PATIENT NAME: GENO PRASAD ADMIT DATE: 2 ACCOUNT NO: [id number] ROOM NO: AGE: 56 REPORT TYPE: ePROGRESS NOTE RADIATION ONC SEX: M ADMITTING PHYSICIAN: ATTENDING PHYSICIAN:Tarsha Mancera MD Patient MR#: [id number] Date of Service: 01/19/2022 Patient Name: GENO PRASAD Patient : 1965 Patient MR#: [id number] Physician: Tarsha Mancera M.D. Weekly OTV Note Diagnosis: C20 - Malignant neoplasm of rectum, S tage IIIB, T3, N1, M0 Treatment Summary: Course: C1 Rectal + LN's Treatment Site: Rectal + LN's Ref. ID: Rectal Energy: 6X Dose/Fx (cGy): 180 #Fx: 18 18 Dose Correction (cGy): 0 Total Dose [...] Tarsha Mancera M.D. on 2021 1:18:15 PM [address] [place], [place] [address] - - Page 2 of 2 Electronically Signed by Tarsha Mancera MD on 01/19 at 1318 PATIENT NAME: GENO PRASAD 074 2021-12-31 14:52:00-00:00 8498-0067 [facility] [place] of: [facility] [address] [place] [address] PATIENT NAME: GENO PRASAD ADMIT DATE: 12/14/21 ACCOUNT NO: [id number] ROOM NO: AGE: 56 REPORT TYPE: ePROCEDURE NOTE RADIATION ONC SEX: M ADMITTING PHYSICIAN: ATTENDING PHYSICIAN:Tarsha Mancera MD Patient MR#: <Patient Id 1> Date of Service: 12/31/2021 Patient Name: GENO PRASAD Patient : 1965 Patient MR#: [id number] Physician: Tarsha Mancera M.D. Treatment Planning Note [...] of treatment is req uested. MODALITY: ___ 3D-32621/38012/99854/99319/47002/81427/19135 /45909/93602/83709 __x_ IMRT-05962/70827/41233/15674/19896/96115/77 293/73827/83162/89951 ___ SRS/SBRT-73286/30787/66387/74478/69007/88434 /80877/50292/75712 Sincerely, PATIENT NAME: GENO PRASAD 652 Page 2 of 2 Electronically Signed and Approved by Tarsha Mancera M.D. 12/31/2021 2:56:50 PM Electronically Signed by Tarsha Mancera MD on 12/31 at 1456 PATIENT NAME: GENO PRASAD 652 2021-12-31 14:24:00-00:00 6901-5973 [facility] [place] of: [address] [address] PATIENT NAME: GENO PRASAD ADMIT DATE: 12/14/21 ACCOUNT NO: [id number] ROOM NO: AGE: 56 REPORT TYPE: ePROCEDURE NOTE RADIATION ONC SEX: M ADMITTING PHYSICIAN: ATTENDING PHYSICIAN:Tarsha Mancera MD Patient MR#: [id number] Date of Service: 12/31/2021 Patient Name: GENO PRASAD Patient : 1965 Patient MR#: [id number] Physician: Tarsha Mancera M.D. 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 The patient was referred for preoper ative SAFETY DEPOSIT CLERK with curative intent. Procedure The patient was [...] Tarsha Mancera M.D. on 12/31 2:52:37 PM [address] [place] [address] - - Page 1 of 1 Electronically Signed by Tarsha Mancera MD on 12/31 at 7690 PATIENT NAME: GENO PRASAD 652 2021-12-31 14:13:00-00:00 2536-3823 [facility] [place] of: [facility] [address] [place] [address] PATIENT NAME: GENO PRASAD ADMIT DATE: 12/14/21 ACCOUNT NO: [id number] ROOM NO: AGE: 56 REPORT TYPE: ePHYSICIAN ORDER RADIATION ONC SEX : M ADMITTING PHYSICIAN: ATTENDING PHYSICIAN:Tarsha Mancera MD PHYSICIAN ORDER SCAN SHEET Department of Radiation Oncology [facility] Patient: GENO PRASAD : 1965 MR#: [id number] Physician: Tarsha Mancera M.D. Date: 12/31/2021 Referring [...] 540cGy (Status - Treatment Approved) - 0 / C1 Rectal + LN's (Plan ID - Rectum Boost1) - Rx Dose 750cGy (Status - Unapproved) - 0 / C1 Rectal + LN's (Plan ID - Rectal+[id number]) - Rx Dose 3,240cGy (Status - Unapproved) - C1 Rectal + LN's (Plan ID - Rectal+[id number]) - Rx D ose 1,750cGy (Status - Unapproved) - 0 PATIENT NAME: GENO PRASAD 652 ORDERING PHYSICIAN SIGNATURE: Electronically sig darrell by Tarsha Mancera M.D. on 01/03/2022 11:33:11 AM Electronically Signed by Tarsha Mancera MD on 01/03 at 1133 PATIENT NAME: GENO PRASAD 652 2021-12-31 14:12:00-00:00 0399-0959 [facility] [place] of: [facility] [address] [place] [address] PATIENT NAME: GENO PRASAD ADMIT DATE: 12/14/21 ACCOUNT NO: [id number] ROOM NO: AGE: 56 REPORT TYPE: ePROCEDURE NOTE RADIATION ONC SEX: M ADMITTING PHYSICIAN: ATTENDING PHYSICIAN:Tarsha Mancera MD Patient MR#: [id number] PHYSICIAN CT SIMULATION ORDER Date of Service: 12/31/2021 Patient Name: GENO PRASAD Patient : 1965 Patient MR#: [id number] Radiation Oncologist: Tarsha Mancera M.D. DIAGNOSIS AND [...] DENTAL: MARKERS: Other: PATIENT NAME: GENO PRASAD 652 WEEKLY PHYSICS CHECK: ADDITIONAL PHYSICIAN NOTES: THERAPIST SET UP SUMMARY: Prone on Belly Board FEET FIRST, IDX @ F2, Pillow to head/chest, knee sponge to feet Page 2 of [id number] Electronically Signed and Approved by Tarsha Mancera M.D. 12/31/2021 2:40:03 PM Electronically Signed by Tarsha Mancera MD on 12/31 at 1440 PATIENT NAME: GENO PRASAD 652 2021-12-31 13:45:00-00:00 0528-1843 [facility] [place] of: [place] [address] PATIENT NAME: GENO PRASAD ADMIT DATE: 12/14/21 ACCOUNT NO: [id number] ROOM NO: AGE: 56 REPORT TYPE: ePROGRESS NOTE RADIATION ONC SEX: M ADMITTING PHYSICIAN: ATTENDING PHYSICIAN:Tarsha Mancera MD Patient MR#: [id number] Date of Service: 12/31/2021 Patient Name: GENO PRASAD Patient : 1965 Patient MR#: [id number] Physician: Tarsha Mancera M.D. Follow-Up Note Diagnosis: [...] 12/31 1:52:12 PM Cc: Bro Vargas M.D. [address] [place] [address] - - Page 2 of 2 Electronically Signed by Tarsha Mancera MD on 12/31 at 1352 PATIENT NAME: GENO PRASAD 652 2021-12-30 10:29:00-00:00 0151-5113 [facility] [place] of: [facility] [id number] [place] [address] PATIENT NAME: GENO PRASAD ADMIT DATE: 12/14/21 ACCOUNT NO: [id number] ROOM NO: AGE: 56 REPORT TYPE: ePHYSICIAN ORDER RADIATION ONC SEX: M ADMITTING PHYSICIAN: ATTENDING PHYSICIAN:Tarsha Mancera MD PHYSICIAN ORDER SCAN SHEET Department of Radiation Oncology [facility] Patient: GENO PRASAD : 1965 MR#: [id number] Physician: Tarsha Mancera M.D. Date: 12/30/2021 Referring [...] Dose 540cGy (Status - Treatment Approved) - C1 Rectal + LN's (Plan ID - Rectum Boost1) - Rx Dose 750cGy (Status - Unapproved) - C1 Rectal + [...] 12/31 at 0901 PATIENT NAME: GENO PRASAD 652 2021-12-14 15:13:00-00:00 1715-7993 [facility] [place] of: [place] [address] PATIENT NAME: GENO PRASAD ADMIT DATE: 12/14/21 ACCOUNT NO: [id number] ROOM NO: AGE: 56 REPORT TYPE: ePHYSICIAN ORDER RADIATION ONC SEX: M ADMITTING PHYSICIAN: ATTENDING PHYSICIAN:Tarsha Mancera MD PHYSICIAN ORDER SCAN SHEET Department of Radiation Oncology [facility] Patient: GENO PRASAD : 1965 MR#: [id number] Physician: Tarsha Mancera M.D. Date: 12/14/2021 Referring [...] PATIENT NAME: GENO PRASAD 652 2021-12-14 14:59:00-00:00 5718-2770 [facility] [place] of: [place] [address] PATIENT NAME: GENO PRASAD ADMIT DATE: 2 ACCOUNT NO: [id number] ROOM NO: AGE: 56 REPORT TYPE: ePROGRESS NOTE RADIATION ONC SEX: M ADMITTING PHYSICIAN: ATTENDING PHYSICIAN:Tarsha Mancera MD Patient MR#: [id number] Date of Service: 12/14/2021 Patient Name: GENO PRASAD Patient : 1965 Patient MR#: [id number] Physician: Tarsha Mancera M.D. Follow-Up Note Diagnosis: C20 - malignant neoplasm of rectum, Narrative: MR. PRASAD is a 56 year old who ret urns after nearly 2 month inpatient break from preop c hemoradiation for a locally advanced rectal cancer. He was treated for bowel perforation at [facility] Yolande Fernández in [place]. Mr. Conway has two ostomies no w [...] hospitalization. I discussed his case with Dr Earnset Vargas and we agreed to order a PET scan for restagi ng and discuss next steps with his surgeon. Records from [facility] pending. Sincerely, Electronically signed by: Tarsha Mancera M.D. on 2021 3:04:56 PM Cc: Shaji Raymundo M.D. [address] [place] [address] - - Page 2 of 2 Electronically Signed by Tarsha Mancera MD on 12/14 at 3288 PATIENT NAME: GENO PRASAD 652 2021-11-08 11:05:00-00:00 4877-1318 [facility] [place] of: [facility] [address] [place] [address] PATIENT NAME: GENO PRASAD ADMIT DATE: 10/18/21 ACCOUNT NO: [id number] ROOM NO: AGE: 56 REPORT TYPE: ePHYSICIAN ORDER RADIATION ONC SEX: M ADMITTING PHYSICIAN: ATTENDING PHYSICIAN:Tarsha Mancera MD PHYSICIAN ORDER SCAN SHEET Department of Radiation Oncology [facility] Patient: GENO PRASAD : 1965 MR#: [id number] Physician: Tarsha Mancera M.D. Date: 11/08/2021 Referring [...] 11/08/2021 12:28:36 PM PATIENT NAME: GENO PRASAD 6791 Electronically Signed by Tarsha Mancera MD on 11/08 at 1228 PATIENT NAME: GENO PRASAD 791 2021-10-14 13:37:00-00:00 7822-3922 [facility] [place] of: [address] [address] PATIENT NAME: GNEO PRASAD ADMIT DATE: ACCOUNT NO: [id number] ROOM NO: AGE: 56 REPORT TYPE: ePROCEDURE NOTE RADIATION ONC SEX: M ADMITTING PHYSICIAN: ATTENDING PHYSICIAN:Tarsha Mancera MD Date of Service: 10/14/2021 Patient Name: GENO PRASAD Patient : 1965 Patient MR#: [id number] Physician: Tarsha Mancera M.D. Treatment Planning Note [...] of treatment is req uested. MODALITY: ___ 3D-89145/76392/84439/15117/40871/88973 ___ IMRT-08808/69432/95001/34811/57420/45812/772 93 ___ SRS/SBRT-00175/09121/90526/04884/12704/15653 Sincerely, Electronically Signed and Approved by Tarsha Mancera M.D. 10/14/2021 1:38:10 PM Electronically Signed by Tarsha Mancera MD on 10/14 at 1338 PATIENT NAME: GENO PRASAD 791 2021-10-14 13:36:00-00:00 1399-6036 [facility] [place] of: [address] [address] PATIENT NAME: GENO PRASAD ADMIT DATE: ACCOUNT NO: [id number] ROOM NO: AGE: 56 REPORT TYPE: ePROCEDURE NOTE RADIATION ONC SEX: M ADMITTING PHYSICIAN: ATTENDING PHYSICIAN:Tarsha Manecra MD Date of Service: 10/14/2021 Patient Name: GENO PRASAD Patient : 1965 Patient MR#: [id number] Physician: Tarsha Mancera M.D. Simulation Note Type [...] PATIENT NAME: GENO PRASAD 791 2021-10-13 13:52:00-00:00 9605-0115 [facility] [place] of: [place] [address] PATIENT NAME: GEON PRASAD ADMIT DATE: ACCOUNT NO: [id number] ROOM NO: AGE: 56 REPORT TYPE: ePROGRESS NOTE RADIATION ONC SEX: M ADMITTING PHYSICIAN: ATTENDING PHYSICIAN:Tarsha Mancera MD Date of Service: 10/13/2021 Patient Name: GENO PRASAD Patient : 1965 Patient MR#: [id number] Physician: Tarsha Mancera M.D. Weekly OTV Note Diagnosis: C20 - Malignant neoplasm of rectum, S tage IIIB, T3, N1, M0 Treatment Summary: Course: C1 Rectal + LN's Treatment Site: Rectal + LN's Ref. ID: Rectal Energy: 6X Dose/Fx (cGy): 180 #Fx: 15 25 Dose Correction (cGy): 0 Total Dose [...] PATIENT NAME: GENO PRASAD 791 2021-10-06 14:39:00-00:00 6000-5331 [facility] [place] of: [address] [address] PATIENT NAME: GENO PRASAD ADMIT DATE: ACCOUNT NO: [id number] ROOM NO: AGE: 56 REPORT TYPE: ePROGRESS NOTE RADIATION ONC SEX: M ADMITTING PHYSICIAN: ATTENDING PHYSICIAN:Tarsha Mancera MD Date of Service: 10/06/2021 Patient Name: GENO PRASAD Patient : 1965 Patient MR#: [id number] Physician: Kenzie Sosa M.D. Weekly OTV Note [...] PATIENT NAME: GENO PRASAD 791 2021-10-06 14:39:00-00:00 7690-9215 [facility] [place] of: [address] [address] PATIENT NAME: GENO PRASAD ADMIT DATE: 10/18/21 ACCOUNT NO: [id number] ROOM NO: AGE: 56 REPORT TYPE: ePROGRESS NOTE RADIATION ONC SEX: M ADMITTING PHYSICIAN: ATTENDING PHYSICIAN:Tarsha Mancera MD Patient MR#: [id number] Date of Service: 10/06/2021 Patient Name: GENO PRASAD Patient : 1965 Patient MR#: [id number] Physician: Kenzie Sosa M.D. Weekly OTV Note [...] been reviewed and approved without modification. Sincerely, [address] [place] [address] - - Page 2 of 2 Electronically Signed by Kenzie Sosa MD on at 1441 PATIENT NAME: GENO PRASAD 791 2021-09-22 13:55:00-00:00 5210-8075 [facility] [place] of: [place] [address] PATIENT NAME: GENO PRASAD ADMIT DATE: ACCOUNT NO: [id number] ROOM NO: AGE: 56 REPORT TYPE: ePROGRESS NOTE RADIATION ONC SEX: M ADMITTING PHYSICIAN: ATTENDING PHYSICIAN:Tarsha Mancera MD Date of Service: 09/22/2021 Patient Name: GENO PRASAD Patient : 1965 Patient MR#: [id number] Physician: Tarhsa Mancera M.D. Weekly OTV Note Diagnosis: C20 [...] e. Continue present PATIENT NAME: GENO PRASAD [address] Vargas about concurrent chemotherapy. The patient s dosimetry risa tment plan and portal images have been reviewed and approved without modification. Sincerely, Electronically signed by: Tarsha Mancera M.D. on 09/22 1:56:00 PM Electronically Signed by Tarsha Mancera MD on 09/22 at 1356 PATIENT NAME: GENO PRASAD 791 2021-09-20 10:38:00-00:00 0261-3561 [facility] of: [place] [address] PATIENT NAME: GENO PRASAD ADMIT DATE: ACCOUNT NO: [id number] ROOM NO: AGE: 56 REPORT TYPE: ePROGRESS NOTE RADIATION ONC SEX: M ADMITTING PHYSICIAN: ATTENDING PHYSICIAN:Tarsha Mancera MD Date of Service: 09/20/2021 Patient Name: GENO PRASAD Patient : 1965 Patient MR#: [id number] Physician: Tarsha Mancera M.D. See on Treatment/Block [...] PATIENT NAME: GENO PRASAD 791 2021-09-08 08:45:00-00:00 9355-8697 [facility] of: [place] [address] PATIENT NAME: GENO PRASAD ADMIT DATE: 09/02/21 ACCOUNT NO: [id number] ROOM NO: AGE: 56 REPORT TYPE: ePHYSICIAN ORDER RADIATION ONC SEX: M ADMITTING PHYSICIAN: ATTENDING PHYSICIAN:Tarsha Mancera MD Department of Radiation Oncology [facility] Patient: GENO PRASAD : 1965 MR#: [id number] Physician: Tarsha Mancera M.D. Date: 09/08/2021 Referring Physician: TANIA WALTER Diagnosis: Primary C20 - Malignant neoplasm of r ectum, Diagnosed 08/31/2021 (Active) Stage IIIB, T3, N1, M0 Reason for Visit: ORDERING PHYSICIAN SIGNATURE: Electronically sig darrell by Tarsha Mancera M.D. on 09/13/2021 8:30:45 AM Electronically Signed by Tarsha Mancera MD on 09/13 at 0830 PATIENT NAME: GENO PRASAD 286 2021-09-02 11:08:00-00:00 [id number] [place] [address] [place] of: [place] [address] PATIENT NAME: GENO PRASAD ADMIT DATE: 09/02/21 ACCOUNT NO: [id number] ROOM NO: AGE: 56 REPORT TYPE: ePROCEDURE NOTE RADIATION ONC SEX: M ADMITTING PHYSICIAN: ATTENDING PHYSICIAN:Tarsha Mancera MD Date of Service: 09/02/2021 Patient Name: GENO PRASAD Patient : 1965 Patient MR#: [id number] Physician: Tarsha Mancera M.D. Treatment Planning Note [...] of treatment is req uested. MODALITY: ___ 3D-48061/93986/37767/83721/21310/43733 ___ IMRT-30966/14027/39756/07643/33759/65630/772 93 ___ SRS/SBRT-43542/11718/96199/09314/97567/16311 Sincerely, Electronically Signed and Approved by Tarsha Mancera M.D. 09/02/2021 11:09:08 AM PATIENT NAME: GENO PRASAD 286 Electronically Signed by Tarsha Mancera MD on 09/02 at 1109 PATIENT NAME: GENO PRASAD 286 2021-09-02 11:07:00-00:00 0184-2088 [facility] [place] of: [address] [address] PATIENT NAME: GENO PRASAD ADMIT DATE: 09/02/21 ACCOUNT NO: [id number] ROOM NO: AGE: 56 REPORT TYPE: ePROCEDURE NOTE RADIATION ONC SEX: M ADMITTING PHYSICIAN: ATTENDING PHYSICIAN:Tarsha Mancera MD Date of Service: 09/02/2021 Patient Name: GENO PRASAD Patient : 1965 Patient MR#: [id number] Physician: Tarsha Mancera M.D. Simulation Note Type of Simulation: Complex Purpose: Initial Diagnosis: Rectal Adenocarcinoma C20 - Malignant neoplasm of rectum, Stage IIIB, T3-4, N1, M0 Treatment Intent: Curative History Summary: Staging pelvic CT scan was nota ble for sreedhar-recal randa metastases but no distant metastases. The patien t was referred for preoperative SAFETY DEPOSIT CLERK with curative intent after havi ng 3 [...] 09/02 at 1108 PATIENT NAME: GENO PRASAD 5286 2021-09-02 10:54:00-00:00 8871-4572 [facility] [place] of: [place] [address] PATIENT NAME: GENO PRASAD ADMIT DATE: 09/02/21 ACCOUNT NO: [id number] ROOM NO: AGE: 56 REPORT TYPE: eCONSULTATION RADIATION ONC SEX: M ADMITTING PHYSICIAN: ATTENDING PHYSICIAN:Tarsha Mancera MD Date of Service: 09/02/2021 Patient Name: GENO PRASAD Patient : 1965 Patient MR#: [id number] Physician: Tarsha Mancera M.D. Initial Outpatient Consultation [...] presented with GI symptoms of hematochezia in [facility] 2020. Visits to the ER were wasteful [...] or signs of blood. He has [facility] ys[facility] to Dr. Vargas and plans to have Dr. Gramajo do his surgery once pr eop SAFETY DEPOSIT CLERK is complete. No evidence of prior PET [...] prn, MiraLa x, powder oral prn and [place], tablet oral prn. Allergies: No Known Allergies Family History: No Remarkable Family History Social History: Last screened on 08/31/2021 - Ne apolinar smoked. Last screened on 08/31/2021 - Never drank. Performance Status: ECOG 0 PATIENT NAME: GENO PRASAD 5286 Physical Exam: Performed on 09/02/2021 10:25 AM [...] t he need to proceed with concurrent SAFETY DEPOSIT CLERK to fully treat the pelvic lymph nodes [...] by Tarsha Mancera MD on 09/02 at 1107 PATIENT NAME: GENO PRASAD 286 2021-09-02 10:49:00-00:00 5687-7743 [facility] [place] of: [address] [address] PATIENT NAME: GENO PRASAD ADMIT DATE: 09/02/21 ACCOUNT NO: [id number] ROOM NO: AGE: 56 REPORT TYPE: ePHYSICIAN ORDER RADIATION ONC SEX: M ADMITTING PHYSICIAN: ATTENDING PHYSICIAN:Tarsha Mancera MD Department of Radiation Oncology [facility] Patient: GENO PRASAD : 1965 MR#: [id number] Physician: Tarsha Mancera M.D. Date: 09/02/2021 Referring Physician: SELF REFERRED Diagnosis: Primary C20 - Malignant neoplasm of r ectum, Diagnosed 08/31/2021 (Active) Stage IIIB, T3, N1, M0 Reason for Visit: ORDERING PHYSICIAN SIGNATURE: Electronically sig darrell by Tarsha Mancera M.D. on 09/02/2021 11:26:45 AM Electronically Signed by Tarsha Mancera MD on 09/02 at 1126 PATIENT NAME: GENO PRASAD 286
[2023-05-09 19:34] LABS: Hematocrit 18.3 % (39.6-49.0); Lymphocytes % 15.1 % (15.3-44.8); MCV 74.1 fL (80-100); MPV 6.4 fL (7.6-11.3); RBC Red Blood Cell Count 2.47 M/uL (4.33-5.43)
[2023-05-09] MEDS ORDERED: ONDANSETRON 4 MG/2 ML VIAL ONE (19:39)
[2023-05-09] MEDS ORDERED: MORPHINE 4 MG/ML SYR ONE (19:39)
[2023-05-09 19:49] LABS: Potassium 4.4 mEq/L (3.5-5.1)
[2023-05-09 20:02] LABS: Platelet Estimate INCR; White Blood Cell Scan OK (OK)
[2023-05-09 20:03] LABS: Blood Morphology Comment NOTED (NOT SEEN); Hypochromasia 1+
[2023-05-09] MEDS ORDERED: NA CHLORIDE 0.9% 250 ML ONE ×2 (20:49→23:16)
--- NOTE | 2023-05-09 20:59 | EDPHYS ---
Physician Documentation [facility] Name: Edwin Young Age: 57 yrs Sex: Male : 1965 Arrival Date: 05/09/2023 Time: 18:09 Bed 4 Private MD: ED Physician John Crisostomo HPI: 05/09 18:37 This 57 yrs old Black Male presents to ER via Ambulatory with complaints of Abnormal kb Lab Results - low hgb. 18:37 Pt reports the cancer center told him to come to the ED for a blood transfusion. States kb his hgb was around 6.5. Onset: The symptoms/episode began/occurred today. Severity of symptoms: At their worst the symptoms were mild in the emergency department the symptoms are unchanged. The patient has not experienced similar symptoms in the past. The patient has not recently seen a physician. Historical: - Allergies: 18:16 No Known Allergies; ll1 - PMHx: 18:16 colon cancer; Gout; CHF; CHEMO; Hypertension; ll1 - PSHx: 18:16 Colostomy; L nephrostomy; ll1 - Immunization history:: Client reports receiving the 2nd dose of the Covid vaccine. - Social history:: Smoking status: Patient denies any tobacco usage or history of. ROS: 18:48 Constitutional: Negative for fever, chills, and weight loss. kb 18:48 Constitutional: Positive for fatigue. 18:48 All other systems are negative. Exam: 18:48 Constitutional: This is a well developed, well nourished patient who is awake, alert, kb and in no acute distress. Head/Face: Normocephalic, atraumatic. ENT: Moist Mucous membranes Cardiovascular: Regular rate and rhythm with a normal S1 and S2. No gallops, murmurs, or rubs. No pulse deficits. Respiratory: Respirations even and unlabored. No increased work of breathing. Talking in full sentences Abdomen/GI: Soft, non-tender. No distention Skin: Warm, dry with normal turgor. Normal color. MS/ Extremity: Pulses equal, no cyanosis. Neurovascular intact. Full, normal range of motion. Neuro: Awake and alert, GCS 15, oriented to person, place, time, and situation. Moves all extremities. Normal gait. Vital Signs: 18:15 BP 125 / 73; Pulse 107; Resp 17; Temp 97.8; Pulse Ox 100% ; Weight 90.72 kg; Height 6 ll1 ft. 22 in. ; Pain 7/10; 20:00 BP 109 / 76; Pulse 95; Resp 19; Pulse Ox 98% on R/A; rv 20:30 BP 106 / 75; Pulse 93; Resp 19; Pulse Ox 96% on R/A; rv 21:27 BP 121 / 82; Pulse 91; Resp 19; Temp 97.9; Pulse Ox 99% on R/A; rv 18:15 Body Mass Index 15.91 (90.72 kg, 238.76 cm) ll1 18:15 Pain Scale: Adult ll1 Juan F Coma Score: 21:27 Eye Response: spontaneous(4). Motor Response: obeys commands(6). Verbal Response: rv oriented(5). Total: 15. MDM: 18:12 Patient medically screened. kb 18:48 Data reviewed: vital signs, nurses notes. kb 21:03 Differential Diagnosis anemia, abnormal lab results. Consideration of kb Admission/Observation Patient was admitted/placed on observation. Escalation of care including admission/observation considered. Management of patient was discussed with the following: Hospitalist: Sanna accepts pt for admission. Counseling: I had a detailed discussion with the patient and/or guardian regarding: the historical points, exam findings, and any diagnostic results supporting the discharge/admit diagnosis, lab results, the need for further work-up and treatment in the hospital. 05/09 18:16 Order name: CBC with Diff; Complete Time: 20:13 kb 05/09 18:16 Order name: Basic Metabolic Panel; Complete Time: 19:51 kb 05/09 18:16 Order name: Type And Screen 05/09 19:40 Order name: CBC Smear Scan; Complete Time: 20:13 EDMS 05/09 20:02 Order name: Packed RBC Leukored EDWY 05/09 18:16 Order name: IV Start; Complete Time: 19:35 kb Administered Medications: 19:34 Drug: morphine IVP or IV 4 mg Route: IVP; Infused Over: 4 mins; Site: Port-a-cath; rv 21:27 Follow up: Response: No adverse reaction; Marked relief of symptoms; Pain is decreased rv 19:34 Drug: Ondansetron IVP 4 mg Route: IVP; Site: Port-a-cath; rv 21:27 Follow up: Response: No adverse reaction rv Disposition Summary: 05/09/23 20:59 Hospitalization Ordered Hospitalization Status: Observation kb Location: Telemetry/MedSurg (observation) kb Condition: Stable kb Problem: new kb Symptoms: are unchanged kb Bed/Room Type: Standard kb Provider: Keith Walter(05/09/23 21:05) kb Room Assignment: 232(05/09/23 21:12) eb1 Diagnosis - Acute kidney failure, unspecified kb - Anemia, unspecified kb Forms: - Medication Reconciliation Form kb - SBAR form kb Addendum: 05/16/2023 06:59 Co-signature as Attending Physician, John Crisostomo MD I reviewed the patient's care r n provided by the Advanced Practice Provider and agree with the diagnosis and treatment plan. Signatures: Dispatcher [employer] EDAna Laura Simmons, PICK PULLING MACHINE OPERATOR-C PICK PULLING MACHINE OPERATOR-Ckb John Crisostomo MD MD rn Basinger, Emily, RN RN eb1 Octavio Hull RN RN rv Lewis, Lynsay RN RN ll1 Corrections: (The following items were deleted from the chart) 05/09 21:05 20:59 YvetteKyle salazar kb kb 21:12 20:59 kb eb1
--- NOTE | 2023-05-09 20:59 | ER ---
Nurse's Notes [facility] Name: Edwin Young Age: 57 yrs Sex: Male : 1965 Arrival Date: 05/09/2023 Time: 18:09 Bed 4 Private MD: Diagnosis: Acute kidney failure, unspecified;Anemia, unspecified Presentation: 05/09 18:15 Chief complaint: Patient states: Sent over by chemo nurse for low HGB. Has rectal CA. ll1 Coronavirus screen: Client denies travel out of the [place] in the last 14 days. At this time, the client does not indicate any symptoms associated with coronavirus-19. Ebola Screen: Patient denies travel to an Ebola-affected area in the 21 days before illness onset. Initial Sepsis Screen: Does the patient meet any 2 criteria? HR > 90 bpm. No. Patient's initial sepsis screen is negative. Does the patient have a suspected source of infection? No. Patient's initial sepsis screen is negative. Risk Assessment: Do you want to hurt yourself or someone else? Patient reports no desire to harm self or others. Onset of symptoms was April 21, 2023. 18:15 Method Of Arrival: Ambulatory ll1 18:15 Acuity: JASWINDER 3 ll1 Triage Assessment: 19:36 General: Appears in no apparent distress. Behavior is calm, cooperative. rv Historical: - Allergies: 18:16 No Known Allergies; ll1 - PMHx: 18:16 colon cancer; Gout; CHF; CHEMO; Hypertension; ll1 - PSHx: 18:16 Colostomy; L nephrostomy; ll1 - Immunization history:: Client reports receiving the 2nd dose of the Covid vaccine. - Social history:: Smoking status: Patient denies any tobacco usage or history of. Screenin:35 [facility] ED Fall Risk Assessment (Adult) History of falling in the last 3 months, rv including since admission No falls in past 3 months (0 pts) Confusion or Disorientation No (0 pts) Intoxicated or Sedated No (0 pts) Impaired Gait No (0 pts) Mobility Assist Device Used No (0 pt) Altered Elimination No (0 pt) Score/Fall Risk Level 0 - 2 = Low Risk Oriented to surroundings, Maintained a safe environment, Educated pt \T\ family on fall prevention, incl call for assistance when getting out of bed, Assessed \T\ reinforced patient's understanding of fall precautions, Provided non-skid footwear, Hourly rounding (assess needs \T\ fall precautionary measures) done, Used ambulatory aids as needed (educated on \T\ assisted with), Used gait belt as appropriate. Abuse screen: Denies threats or abuse. Denies injuries from another. Nutritional screening: No deficits noted. Tuberculosis screening: No symptoms or risk factors identified. Assessment: 20:43 Reassessment: Patient is alert, oriented x 3, equal unlabored respirations, skin rv warm/dry/pink. Pain: Denies pain. Vital Signs: 18:15 BP 125 / 73; Pulse 107; Resp 17; Temp 97.8; Pulse Ox 100% ; Weight 90.72 kg; Height 6 ll1 ft. 22 in. ; Pain 7/10; 20:00 BP 109 / 76; Pulse 95; Resp 19; Pulse Ox 98% on R/A; rv 20:30 BP 106 / 75; Pulse 93; Resp 19; Pulse Ox 96% on R/A; rv 21:27 BP 121 / 82; Pulse 91; Resp 19; Temp 97.9; Pulse Ox 99% on R/A; rv 18:15 Body Mass Index 15.91 (90.72 kg, 238.76 cm) ll1 18:15 Pain Scale: Adult ll1 Juan F Coma Score: 21:27 Eye Response: spontaneous(4). Motor Response: obeys commands(6). Verbal Response: rv oriented(5). Total: 15. ED Course: 18:11 Patient arrived in ED. am2 18:12 Ana Laura Yusuf FNP-C is [facility]. kb 18:12 John Crisostomo MD is Attending Physician. kb 18:16 Triage completed. ll1 18:17 Arm band placed on. ll1 19:29 Catalina Yuen, TJ is Primary Nurse. pf1 19:34 Octavio Hull, TJ is Primary Nurse. rv 19:35 No provider procedures requiring assistance completed. Accessed Port-a-Cath. Clean \T\ rv dry. Good blood return. Flushes easily. 0.75. 19:36 Patient has correct armband on for positive identification. Placed in gown. Bed in low rv position. Call light in reach. Side rails up X 1. Client placed on continuous cardiac and pulse oximetry monitoring. NIBP monitoring applied. 20:59 Kyle Kelly is Hospitalizing Provider. kb 21:05 Keith Walter MD is Hospitalizing Provider. kb 21:27 Patient admitted, IV remains in place. rv 21:28 Provided Education on: BLOOD TRNSFUSION. rv Administered Medications: 19:34 Drug: morphine IVP or IV 4 mg Route: IVP; Infused Over: 4 mins; Site: Port-a-cath; rv 21:27 Follow up: Response: No adverse reaction; Marked relief of symptoms; Pain is decreased rv 19:34 Drug: Ondansetron IVP 4 mg Route: IVP; Site: Port-a-cath; rv 21:27 Follow up: Response: No adverse reaction rv Medication: 19:36 VIS not applicable for this client. rv 20:55 Blood products: PRBCs X 1 unit given. See transfusion record. rv Outcome: 20:59 Decision to Hospitalize by Provider. kb 21:27 Admitted to Med/surg accompanied by nurse, via stretcher, room 232, with chart, Report rv called to RADHA SPENCER 21:27 Condition: stable 21:27 Instructed on the need for admit. 21:28 Patient left the ED. rv Signatures: Ana Laura uYsuf, SECURITIES AND REAL ESTATE DIRECTOR-C SECURITIES AND REAL ESTATE DIRECTOR-Libertad Ricci Ronaldo, RN RN rv Jennifer Gan RN RN ll1 Catalina Yuen RN RN pf1
[2023-05-09] MEDS ORDERED: ONDANSETRON 4 MG/2 ML VIAL IV PRN (21:13)
[2023-05-09] MEDS ORDERED: ZOLPIDEM TARTRATE 5 MG TABLET PO PRN (21:13)
--- NOTE | 2023-05-09 21:43 | P.HP ---
Certification for Inpatient Patient admitted to: Observation With expected LOS: >2 Midnights Patient will require the following post-hospital care: None Practitioner: I am a practitioner with admitting privileges, knowledge of patient current condition, hospital course, and medical plan of care. Services: Services provided to patient in accordance with Admission requirements found in Title 42 Section 412.3 of the Code of Federal Regulations Patient History Date of Service: 05/09/23 Reason for admission: severe anemia History of Present Illness: 57 year old AA male with past medical history of Gout, HTN, Rectal cancer dx 2020, CHF presents to ER after being told by the Cancer center to go to ER for severe anemia. He reports having labs done last Week, he was called today told to come to ER. He reports moderate fatigue that is made worse by ambulation. He denies wt loss, dizziness, shortness of breath, chest pain, abdominal pain, rectal bleeding or syncope. He reports rectal pain 7/10 from rectal cancer. He reports taking Lortab as needed at home. Plan to admit for OBS for transfusion for severe anemia HH 5.7, 18.3, acute on chronic kidney injury Bun 23, CR 3.3, ukn base line. Allergies No Known Allergies Allergy (Verified 05/28/21 17:37) Home Medications: Carvedilol [Coreg] 25 mg PO BID 10/22/21 Furosemide [Lasix*] 40 mg PO DAILY 10/22/21 LIDOCAINE 2% JELLY, 5mL [Xylocaine 2% Jelly*] 5 ml NJ DAILY 14 Days #100 ml 10/21/22 Levofloxacin [Levaquin] 500 mg PO DAILY 12 Days #12 tab 10/21/22 Tamsulosin [Flomax*] 0.4 mg PO BEDTIME 30 Days #30 cap 10/21/22 metroNIDAZOLE [Flagyl] 500 mg PO Q8H 12 Days #36 tab 10/21/22 - Past Medical/Surgical History Diabetic: No -: CHF -: HTN -: HLD -: rectal cancer Dx January 2021 -: Gout -: JANET (Dr. Hernandez) -: Chemo-Port placement - Family History Mother -: Heart disease, Hypertension, Other (see notes) Notes: CHF Father -: Diabetes - Social History Alcohol use: No CD- Drugs: No Caffeine use: Yes Review of Systems 10-point ROS is otherwise unremarkable Physical Examination - Physical Exam General: Alert, In no apparent distress, Oriented x3 HEENT: Atraumatic, Normocephalic, PERRLA Neck: Supple, 2+ carotid pulse no bruit, JVD not distended Respiratory: Clear to auscultation bilaterally, Normal air movement Cardiovascular: No edema, Normal pulses, Regular rate/rhythm Capillary refill: <2 Seconds Gastrointestinal: Normal bowel sounds, Soft and benign Musculoskeletal: No clubbing, No swelling Integumentary: No rashes, No breakdown Neurological: Normal strength at 5/5 x4 extr, Cranial nerves 3-12 intact - Studies Laboratory Data (last 24 hrs) 05/09/23 19:25: Sodium 134 L, Potassium 4.4, BUN 23 H, Creatinine 3.37 H, Glucose 118 H 05/09/23 19:25: WBC 6.90, Hgb 5.7 L*, Hct 18.3 L, Plt Count 537 H Assessment and Plan - Plan Assessment/Plan Rectal Carcinoma on Chemo Severe Anemia Acute on Chronic kidney injury, ukn baseline HTN controlled HX CHF DVT SCD Assessment/Plan Rectal Carcinoma on Chemo resume home prn analgesics, trend HH, WBC Severe Anemia TC x 2 units, Trend HH, transfuse H<7 HH 5.7, 18.3, Acute on Chronic kidney injury, ukn baseline Gently IVF, Neph consulted Dr Walker notified acute on chronic kidney injury Bun 23, CR 3.3, ukn base line. HTN controlled HX CHF resume home htn medications DVT SCD Full Code Diet Card Discharge Plan: Home Plan to discharge in: 24 Hours - Advance Directives Does patient have a Living Will: No Does patient have a Durable POA for Healthcare: No - Code Status/Comfort Care Code Status: Full Code Physician Review: Patient Assessed, Agree with Above Assessment and Plan Critical Care: No Time Spent Managing Pts Care (In Minutes): 50
--- NOTE | 2023-05-09 22:17 | P.CNS ---
Date of Consult: 05/09/23 Reason for Consult: JANET Requesting Physician: Keith Walter Chief Complaint: Severe Anemia History of Present Illness: 57 year old AA male with past medical history of Gout, HTN, Rectal cancer dx 2020, CHF presents to ER after being told by the Cancer center to go to ER for severe anemia. He reports having labs done last Week, he was called today told to come to ER. He reports moderate fatigue that is made worse by ambulation. He denies wt loss, dizziness, shortness of breath, chest pain, abdominal pain, rectal bleeding or syncope. He reports rectal pain 7/10 from rectal cancer. He reports taking Lortab as needed at home. Plan to admit for OBS for transfusion for severe anemia. He denies NSAIDs. He denies difficulty emptying his bladder in the setting of his right kidney. He has a left nephrostomy tube. Good urine output. [id number] 18:37 This 57 yrs old Black Male presents to ER via Ambulatory with complaints of Abnormal kb Lab Results - low hgb. 18:37 Pt reports the cancer center told him to come to the ED for a blood transfusion. States kb his hgb was around 6.5. Onset: The symptoms/episode began/occurred today. Severity of symptoms: At their worst the symptoms were mild in the emergency department the symptoms are unchanged. The patient has not experienced similar symptoms in the past. The patient has not recently seen a physician. Allergies No Known Allergies Allergy (Verified 05/28/21 17:37) Home medications list reviewed: Yes Home Medications: Carvedilol [Coreg] 25 mg PO BID 10/22/21 Furosemide [Lasix*] 40 mg PO DAILY 10/22/21 - Past Medical/Surgical History Diabetic: No -: Systolic CHF -: HTN -: HLD -: Rectal Cancer Dx January 2021 -: Gout -: JANET (Dr. Hernandez/ Dr. Miranda) -: Chemo-Port placement - Family History Mother Medical History: Heart disease, Hypertension, Other (see notes) Notes: CHF Father Medical History: Diabetes - Social History Smoking Status: Never smoker Alcohol use: No CD- Drugs: No Caffeine use: Yes Review of Systems 10-point ROS is otherwise unremarkable General: Weakness Physical Examination Temp Pulse Resp BP Pulse Ox 97.9 F 91 H 19 121/82 05/09/23 21:49 05/09/23 21:49 05/09/23 21:49 05/09/23 21:49 General: Alert, In no apparent distress, Oriented x3, Cooperative HEENT: Atraumatic Neck: Supple Respiratory: Normal air movement Cardiovascular: No edema, Regular rate/rhythm Gastrointestinal: Soft and benign, Non-distended Musculoskeletal: No clubbing, No contractures Integumentary: No rashes, No cyanosis Neurological: Normal speech Laboratory Data (last 24 hrs) 05/09/23 19:25: Sodium 134 L, Potassium 4.4, BUN 23 H, Creatinine 3.37 H, Glucose 118 H 05/09/23 19:25: WBC 6.90, Hgb 5.7 L*, Hct 18.3 L, Plt Count 537 H Imagings Data: EXAM DESCRIPTION: CT - Abdomen Pelvis Wo Contrast - 12/09/2022 6:52 am CLINICAL HISTORY: 57 years Male abdominal pain, nausea, colon cancer COMPARISON: November 16, 2022 TECHNIQUE: Images were obtained in axial, sagittal and coronal planes. Intravenous contrast was administered. This exam was performed according to our departmental dose-optimization program which includes use of Automated Exposure Control, adjustment of the mA and/or kV according to patient size and/or use of iterative reconstruction technique. FINDINGS: No abnormality involving the liver, this seen, pancreas, gallbladder, or adrenal glands bilaterally. Percutaneous left nephrostomy to unchanged in position. No hydronephrosis on left. Mild right hydronephrosis unchanged. No obstructing renal or ureteral calculi bilaterally. Marked mucosal thickening involving the bladder likely cystitis. Unremarkable prostate gland. Appendix within normal limits. No bowel obstruction. Anterior bilateral ostomy sites unchanged when correlated with the prior study. Rectal remnant unchanged in appearance. No dilatation of abdominal aorta. Previously questioned left pelvic adenopathy unchanged in appearance. No abnormal fluid collections seen. No acute osseous abnormality. Chronic changes lower lungs bilaterally. Enlarged heart. IMPRESSION: Bilateral ostomy sites again noted anteriorly. No evidence for bowel obstruction. Percutaneous nephrostomy left kidney with no hydronephrosis noted. Mild right hydronephrosis unchanged. Findings indicating marked cystitis. Conclusions/Impression: Stage II JANET may be due to hypovolemia/ hypotension may be PreRenal vs ATN CKD III Left Nephrostomy Hx mild right hydronephrosis -No NSAIDs -Consider repeat imaging if persistent JANET -May need to hold diuresis Hyponatremia, improving -Continue Lasix HTN with CKD/ CHF -Hold carvedilol Systolic CHF, chronic LVEF 27% in 2014 -Low sodium diet -Daily weight -Continue Lasix -Check echocardiogram Anemia in chronic illness Iron Deficiency -PRBC as ordered Gout without flare -Check uric acid Hospitalist and ER notes reviewed Thank you kindly for the consultation
[2023-05-09 22:27] VITALS: BMI 26.7
[2023-05-09] MEDS ORDERED: FUROSEMIDE 20 MG/ 2ML VIAL IV ONE (23:00)
[2023-05-09] MEDS: HYDROCODONE/APAP 7.5/325 MG TAB PO SCH (23:06)
[2023-05-10] MEDS: MORPHINE 4 MG/ML SYR IV PRN ×3 (01:41→14:37)
[2023-05-10 05:32] LABS: Magnesium 1.7 mg/dL (1.6-2.4); Potassium 4.7 mEq/L (3.5-5.1)
[2023-05-10 05:47] LABS: Absolute Lymphocytes (CBC) 0.9 K/uL (0.7-4.9); Hematocrit 20.7 % (39.6-49.0); Lymphocytes % 10.6 % (15.3-44.8); MCV 75.4 fL (80-100); MPV 6.9 fL (7.6-11.3); RBC Red Blood Cell Count 2.75 M/uL (4.33-5.43)
[2023-05-10] MEDS ORDERED: MAGNESIUM SULFATE 1 gm IVPB 1 GM/100 ML BAG IV ONE (06:30)
[2023-05-10] MEDS: FUROSEMIDE 40 MG/4 ML VIAL IV SCH (08:00)
[2023-05-10 08:34] LABS: Blood Morphology Comment NOT SEEN (NOT SEEN); Hypersegmented Neutrophils PRESENT; Platelet Estimate ADEQ
[2023-05-10] MEDS ORDERED: carvediloL 25 MG TAB PO SCH (09:00)
[2023-05-10 10:49] LABS: AST/SGOT 6 U/L (15-37); Albumin 2.1 g/dL (3.4-5.0); Alkaline Phosphatase 50 U/L (45-117); Bilirubin Direct 0.2 mg/dL (0-0.2); Bilirubin Indirect, Calculated 0.6 mg/dL (0.2-0.8); Bilirubin Total 0.8 mg/dL (0.2-1.0); Protein, Total 6.5 g/dL (6.4-8.2)
[2023-05-10 10:52] LABS: ALT/SGPT < 10 U/L (16-61)
[2023-05-10] MEDS ORDERED: DRISDOL (VITAMIN D=ERGOCALCIFEROL) 50000 UNIT CAP PO SCH (11:00)
[2023-05-10] MEDS ORDERED: NA CHLORIDE 0.9% 250 ML IV ONE (14:43)
[2023-05-10] MEDS: DOCUSATE NA 100 MG CAP PO SCH (19:55)
[2023-05-10] MEDS: HYDROCODONE/APAP 7.5/325 MG TAB PO SCH (19:55)
[2023-05-10 20:14] LABS: Absolute Lymphocytes (CBC) 1.4 K/uL (0.7-4.9); Hematocrit 19.6 % (39.6-49.0); MPV 6.6 fL (7.6-11.3); RBC Red Blood Cell Count 2.62 M/uL (4.33-5.43)
[2023-05-10 21:48] LABS: Anisocytosis 1+; Blood Morphology Comment NOTED (NOT SEEN); Hypochromasia 1+; Platelet Estimate INCR
[2023-05-10] MEDS ORDERED: ACETAMINOPHEN 500 MG TAB PO ONE (22:49)
[2023-05-10] MEDS ORDERED: DIPHENHYDRAMINE 50 MG/ML VIAL IV ONE (22:49)
[2023-05-10] MEDS ORDERED: NA CHLORIDE 0.9% 250 ML IV SCH (23:00)
[2023-05-10] MEDS ORDERED: NA CHLORIDE 0.9% 250 ML ONE (23:49)
[2023-05-11] MEDS ORDERED: NA CHLORIDE 0.9% 250 ML ONE (03:10)
[2023-05-11] MEDS: MORPHINE 2 MG/ML SYR IV PRN ×3 (03:25→22:09)
--- NOTE | 2023-05-11 08:38 | ECHO ---
HEIGHT: 6 ft 2 in WEIGHT: 208 lb 1.6 oz DATE OF STUDY: 05/10/[address]: Petros Hernandez DO 2-DIMENSIONAL: YES M.MODE: YES DOPPLER: YES COLOR FLOW: YES TDS: PORTABLE: YES DEFINITY: BUBBLE STUDY: DIAGNOSIS: CONGESTIVE HEART FAILURE WITH LEFT VENTRICULAR EJECTION FRACTION OF 27% IN 2014 CARDIAC HISTORY: CATHERIZATION: SURGERY: PROSTHETIC VALVE: PACEMAKER: MEASUREMENTS (cm) DIASTOLIC (NORMALS) SYSTOLIC (NORMALS) IVSd 1.0 (0.6-1.2) LA Diam 4.5 (1.9-4.0) LVEF 40% LVIDd 6.7 (3.5-5.7) LVIDs 5.6 (2.0-3.5) %FS 16% LVPWd 1.0 (0.6-1.2) Ao Diam 3.2 (2.0-3.7) 2 DIMENSIONAL ASSESSMENT: RIGHT ATRIUM: NORMAL LEFT ATRIUM: ENLARGED RIGHT VENTRICLE: NORMAL LEFT VENTRICLE: SEVERELY DILATED TRICUSPID VALVE: NORMAL MITRAL VALVE: MODERATE MITRAL REGURGITATION PULMONIC VALVE: NORMAL AORTIC VALVE: MILD AORTIC INSUFFICIENCY PERICARDIAL EFFUSION: NONE AORTIC ROOT: NORMAL LEFT VENTRICULAR WALL MOTION: MODERATE GLOBAL HYPOKINESIS DOPPLER/COLOR FLOW: SEE BELOW COMMENTS: 1. MODERATELY DEPRESSED LEFT VENTRICULAR EJECTION FRACTION 35-40% 2. MODERATE GLOBAL HYPOKINESIS 3. MODERATE MITRAL REGURGITATION 4. LEFT ATRIAL ENLARGEMENT 5. MILD AORTIC INSUFFICIENCY 6. MILD TRICUSPID REGURGITATION 7. SEVERE DIASTOLIC DYSFUNCTION TECHNOLOGIST: MARIMAR MCNAIR
[2023-05-11] MEDS: DOCUSATE NA 100 MG CAP PO SCH ×2 (08:39→21:00)
[2023-05-11] MEDS: HYDROCODONE/APAP 7.5/325 MG TAB PO SCH ×2 (08:39→21:00)
[2023-05-11] MEDS: FUROSEMIDE 40 MG/4 ML VIAL IV SCH (08:40)
[2023-05-11 08:59] LABS: Absolute Lymphocytes (CBC) 1.3 K/uL (0.7-4.9); Hematocrit 26.6 % (39.6-49.0); MCV 77.7 fL (80-100); MPV 6.6 fL (7.6-11.3); RBC Red Blood Cell Count 3.43 M/uL (4.33-5.43)
[2023-05-11 09:15] VITALS: O2SAT 95
[2023-05-11 09:19] LABS: AST/SGOT 9 U/L (15-37); Albumin 2.1 g/dL (3.4-5.0); Alkaline Phosphatase 52 U/L (45-117); BUN Blood Urea Nitrogen 25 mg/dL (7-18); Bicarbonate 27 mEq/L (21-32); Glomerular Filtration Rate 18 ml/min (=/>90); Glucose Level 94 mg/dL (74-106); NT PRO-BNP 6577 pg/mL (<125); Phosphorus 3.7 mg/dL (2.5-4.9); Potassium 4.7 mEq/L (3.5-5.1); Protein, Total 6.6 g/dL (6.4-8.2); Sodium Level 139 mEq/L (136-145); Uric Acid 9.7 mg/dL (3.5-7.2)
[2023-05-11 09:20] LABS: ALT/SGPT < 10 U/L (16-61)
[2023-05-11 09:45] LABS: Anisocytosis 1+; Blood Morphology Comment NOTED (NOT SEEN); Platelet Estimate ADEQ; White Blood Cell Scan OK (OK)
--- NOTE | 2023-05-11 09:49 | P.PN ---
Date of Service: 05/11/23 Vital Signs Temp Pulse Resp BP Pulse Ox 97.6 F 81 18 109/68 98 05/11/23 08:00 05/11/23 08:00 05/11/23 08:39 05/11/23 08:00 05/11/23 08:39 Medications Hydrocodone Bitart/Acetaminophen (Hydrocodone/Apap 7.5/325 Mg Tab) 1 tab PO BID [facility] Last Admin: 05/11/23 08:39 Dose: 1 tab Docusate Sodium (Docusate Na 100 Mg Cap) 100 mg PO BID [facility] Last Admin: 05/11/23 08:39 Dose: 100 mg Ergocalciferol (Drisdol (Vitamin D=Ergocalciferol) 93222 Unit Cap) 50,000 unit PO Q7D [facility] Last Admin: 05/10/23 11:42 Dose: 50,000 unit Sodium Chloride (Sodium Chloride) 250 mls @ 0 mls/hr IV .Q0M [facility] Morphine Sulfate (Morphine 2 Mg/Ml Syr) 2 mg IV Q6H PRN PRN Reason: Pain scale 8-10 (Severe) Last Admin: 05/11/23 03:25 Dose: 2 mg Ondansetron HCl (Ondansetron 4 Mg/2 Ml Vial) 4 mg IV Q6HP PRN PRN Reason: NAUSEA / VOMITING Sodium Chloride (Flush Normal Saline 10 Ml) 10 ml IV BID [facility] Last Admin: 05/11/23 08:39 Dose: 10 ml Sodium Chloride (Flush Normal Saline 10 Ml) 10 ml IV BID [facility] Last Admin: 05/11/23 08:40 Dose: Not Given Zolpidem Tartrate (Zolpidem Tartrate 5 Mg Tablet) 5 mg PO BEDTIME PRN PRN PRN Reason: INSOMNIA Lab Results (last 24 hrs) 05/09/23 19:25: ABO/Rh A POSITIVE, Solid Phase Ab Screen Negative, Crossmatch Se e Detail Assessment/ Plan: Nephrology No dyspnea No chest pain No acute events overnight Vitals, medications, blood work and imaging reviewed in the chart General: Alert, In no apparent distress, Oriented x3, Cooperative HEENT: Atraumatic Neck: Supple Respiratory: Normal air movement Cardiovascular: No edema, Regular rate/rhythm Gastrointestinal: Soft and benign, Non-distended Musculoskeletal: No clubbing, No contractures Integumentary: No rashes, No cyanosis Neurological: Normal speech Laboratory Data (last 24 hrs) 05/09/23 19:25: Sodium 134 L, Potassium 4.4, BUN 23 H, Creatinine 3.37 H, Glucose 118 H 05/09/23 19:25: WBC 6.90, Hgb 5.7 L*, Hct 18.3 L, Plt Count 537 H Imagings Data: EXAM DESCRIPTION: CT - Abdomen Pelvis Wo Contrast - 12/09/2022 6:52 am CLINICAL HISTORY: 57 years Male abdominal pain, nausea, colon cancer COMPARISON: November 16, 2022 TECHNIQUE: Images were obtained in axial, sagittal and coronal planes. Intravenous contrast was administered. This exam was performed according to our departmental dose-optimization program which includes use of Automated Exposure Control, adjustment of the mA and/or kV according to patient size and/or use of iterative reconstruction technique. FINDINGS: No abnormality involving the liver, this seen, pancreas, gallbladder, or adrenal glands bilaterally. Percutaneous left nephrostomy to unchanged in position. No hydronephrosis on left. Mild right hydronephrosis unchanged. No obstructing renal or ureteral calculi bilaterally. Marked mucosal thickening involving the bladder likely cystitis. Unremarkable prostate gland. Appendix within normal limits. No bowel obstruction. Anterior bilateral ostomy sites unchanged when correlated with the prior study. Rectal remnant unchanged in appearance. No dilatation of abdominal aorta. Previously questioned left pelvic adenopathy unchanged in appearance. No abnormal fluid collections seen. No acute osseous abnormality. Chronic changes lower lungs bilaterally. Enlarged heart. IMPRESSION: Bilateral ostomy sites again noted anteriorly. No evidence for bowel obstruction. Percutaneous nephrostomy left kidney with no hydronephrosis noted. Mild right hydronephrosis unchanged. Findings indicating marked cystitis. Conclusions/Impression: Stage II JANET may be due to hypovolemia/ hypotension may be PreRenal vs ATN CKD III Left Nephrostomy Hx mild right hydronephrosis -No NSAIDs -Abd ultrasound ordered -Hold Lasix at this time -500ml IVF bolus X1 Hyponatremia, resolved -Maintain nutrition HTN with CKD/ CHF complicated by hypotension -Hold carvedilol -500ml IVF bolus X1 Systolic Diastolic CHF, chronic LVEF 40% -Low sodium diet -Daily weight -Echocardiogram reviewed Anemia in chronic illness Iron Deficiency -PRBC as ordered Gout without flare -Allopurinol prn Hospitalist note reviewed
[2023-05-11] MEDS ORDERED: NA CHLORIDE 0.9% 250 ML IV ONE (10:39)
[2023-05-11] MEDS ORDERED: NACHLORIDE 0.45% 500 ML IV SCH (11:00)
[2023-05-11] MEDS ORDERED: NA CHLORIDE 0.9% 1,000 ML IV SCH (11:00)
--- NOTE | 2023-05-11 16:28 | RAD REPORT ---
EXAM DESCRIPTION: US - Abdomen Exam Complete - 05/11/2023 3:37 pm CLINICAL HISTORY: JANET. Left Nephrostomy. Right hydro. Rectal Ca COMPARISON: Abdomen Pelvis Wo Contrast dated 12/09/2022 FINDINGS: No aortic aneurysm. Increased echogenicity of the liver. The portal vein is patent. The IVC at the level of the liver is unremarkable. No ascites. The gallbladder is unremarkable. No pericholecystic fluid, wall thickening, or gallstones identified. No biliary ductal dilatation. The pancreas was grossly unremarkable. The right kidney measures 10.4 cm normal echotexture. Mild right-sided hydronephrosis . No suspicious masses. The left kidney measures 11.2 cm with a normal echotexture. No hydronephrosis. No suspicious masses. Left nephrostomy tube in place. The spleen is unremarkable. IMPRESSION: 1. Mild right-sided hydronephrosis. Left nephrostomy tube in place without hydronephrosi s. 2. Hepatic steatosis .
[2023-05-11] MEDS: FUROSEMIDE 20 MG TABLET PO SCH (17:00)
[2023-05-11] MEDS: carvediloL 3.125 MG TAB PO SCH (17:08)
[2023-05-11 18:07] LABS: Potassium 4.8 mEq/L (3.5-5.1)
[2023-05-11] MEDS ORDERED: ALBUMIN HUMAN 25% 100 ML IV ONE ×2 (18:16→19:00)
[2023-05-12] MEDS: carvediloL 3.125 MG TAB PO SCH (05:33)
[2023-05-12] MEDS: HYDROCODONE/APAP 7.5/325 MG TAB PO SCH (08:50)
[2023-05-12] MEDS: DOCUSATE NA 100 MG CAP PO SCH (08:50)
[2023-05-12] MEDS: FUROSEMIDE 20 MG TABLET PO SCH (08:50)
[2023-05-12 09:15] LABS: Hematocrit 26.2 % (39.6-49.0); MCV 77.7 fL (80-100); MPV 6.7 fL (7.6-11.3); RBC Red Blood Cell Count 3.37 M/uL (4.33-5.43)
[2023-05-12 09:53] LABS: Potassium 4.6 mEq/L (3.5-5.1)
[2023-05-12 10:40] LABS: Platelet Estimate ADEQ
[2023-05-12 10:41] LABS: Anisocytosis 1+; Blood Morphology Comment NOTED (NOT SEEN)
[2023-05-12 12:22] VITALS: BP 107/72; TEMP 97.6
[2023-05-12] MEDS ORDERED: SOD FERRIC GLUC COMPLX/SUCROSE 125 MG in NA CHLORIDE 0.9% 100 ML IV SCH (12:30)
[2023-05-12] MEDS ORDERED: HEPARIN 500 UNIT/5 ML SYR IV PRN (13:41)
== END 2023-05-12 14:56 | disposition home or self-care (01) | DRG 683 ==
LOC: ER 18:09 → ERHOLD 21:05 → 2ND 21:28 → OBSVTOIN 05-12 09:57
PROVIDERS: ADMIT Hospitalist; ATTEND Hospitalist
PROC: 30233N1 Transfusion of Nonautologous Red Blood Cells into Peripheral Vein, Percutaneous Approach (ICD-10-PCS; principal; 2023-05-10)
DX: N17.9 Acute kidney failure, unspecified (principal); C20 Malignant neoplasm of rectum; I50.22 Chronic systolic (congestive) heart failure; I13.0 Hypertensive heart and chronic kidney disease with heart failure and stage 1 through stage 4 chronic kidney disease, or unspecified chronic kidney disease; E87.1 Hypo-osmolality and hyponatremia; N18.30 Chronic kidney disease, stage 3 unspecified; D63.1 Anemia in chronic kidney disease; D50.9 Iron deficiency anemia, unspecified; M10.9 Gout, unspecified; E78.5 Hyperlipidemia, unspecified; Z93.3 Colostomy status; Z93.6 Other artificial openings of urinary tract status; Z79.02 Long term (current) use of antithrombotics/antiplatelets; Z79.899 Other long term (current) drug therapy; Z85.038 Personal history of other malignant neoplasm of large intestine
CPT/HCPCS: 36415; 36430; 76700; 80048; 80053; 80076; 82607; 83540; 83735; 83880; 84100; 84550; 85025; 85044; 86850; 86900; 86901; 86920; 93306; 96374; 96375; 99285; J1200; J1642; J1940; J2270; J2405; J2916; J3475; J7030; J7050; P9016; P9047

== ENCOUNTER 2023-05-24 16:59 | Observation (INO) | payer OTHER ==
--- OUTSIDE RECORDS SUMMARY | 2023-05-24 17:04 | XMS REPORT | Continuity of Care Document ---
:[address] [facility] t Address [address] [facility] [address] [place] [id number] Care Team Providers Name Role Phone SHERYL CHARLES Primary Care Physician Unavailable Tarsha Mancera Attending Clinician Unavailable Lalo Ruiz Attending Clinician Unavailable Nickell_K Attending Clinician Unavailable Clayton Dale MD Attending Clinician Eladio Stafford MD Attending Clinician Shanika Fritz MD Attending Clinician Ky Sibley Attending Clinician SHERYL CHARLES Attending Clinician Unavailable SHERYL CHARLES Attending Clinician Unavailable Seymour Sales Attending Clinician Unavailable [facility]Nader_Osorio Attending Clinician Unavailable Lesterrer Parviz PARMAR Attending Clinician Nils Cowan MD Attending Clinician Rhys Gramajo MD Attending Clinician [phone] DERRICK HOLT Attending Clinician Unavailable JENNY [...] Number Effective Date Expiration Date S ource [facility] - [id number] [place]AC[place] - [place]) [facility]US [id number] 2022 00:00:00 [facility] [id number] (HMO) Problems Condition Condition Condition Status Onset [...] Stop Date Quantity Comments Source History SDOH Yarsanism Alcohol Std Drinks Hospit al History SDOH [facility]ism Alcohol Binge Hospital Gender identity [facility] Hospital Sexual orientation Method ist Hospital History of Social 2023-03-28 2023-03-[address] function 00:00:00 00:00:00 Hospital Alcohol intake 2023-03-22 2023-03-22 Lifetime Yarsanism 00:00:00 00:00:00 non-drinker Hospital (finding) Exposure to 2022-12-05 2022-12-15 Not sure University SARS-CoV-2 (event) 00:00:00 15:34:00 [facility] Tobacco use and 2021-08-01 2021-08-01 Smokeless Yarsanism exposure 00:00:00 00:00:00 tobacco non-user Hospital History SDOH 2021-08-01 2021-08-01 1 Yarsanism Alcohol Frequency 00:00:00 00:00:00 Hospita l Sex Assigned At [birth year] Yarsanism 00:00:00 00:00:00 Hospital Smoking Status Start Date Stop Date Source Never smoked tobacco [facility]arsanism H ospital Medications Ordered Filled Start Stop [...] IVPB daily for 14 days. ertapenem 1 2022-2022- No 1g Q24H Infuse 1 g Methodi g in sodium 03-[address] chloride 00:00: 04:59 venous Hospit a 0.9 % MBP 00 :00 catheter l 50 mL IVPB daily for 14 days. ertapenem 1 2022-0 2022- No 1g Q24H Infuse 1 g Methodi g in sodium 03-[address] chloride 00:00: 04:59 venous Hospit a 0.9 % MBP 00 :00 catheter l 50 mL IVPB daily for 14 days. furosemide 2022-0 Yes 40mg QD Take 1 Metho di (LASIX) 40 6-13 tablet (40 st mg tablet 19:03: mg total) Hos caity 32 by mouth l daily. furosemide 2022-0 Yes 40mg QD Take 1 Metho di (LASIX) 40 6-13 tablet (40 st mg tablet 19:03: mg total) Hos caity 32 by mouth l daily. furosemide 2022-0 Yes 40mg QD Take 1 Metho di (LASIX) 40 6-13 tablet (40 st mg tablet 19:03: mg total) Hos caity 32 by mouth l daily. furosemide 2022-0 Yes 40mg QD Take 1 Metho di (LASIX) 40 6-13 tablet (40 st mg tablet 19:03: mg total) Hos caity 32 by mouth l daily. linezolid 2022-0 2022- Yes 600mg Q.5D Take 1 Meth cordelia (ZYVOX) 600 03-28- tablet st mg tablet 00:00: 04:59 (600 mg Hosp cristy 00 :00 total) by l mouth 2 (two) times a day for 14 days. linezolid 2022-0 2022- No 600mg Q.5D Take 1 Meth cordelia (ZYVOX) 600 -28 03- tablet st mg tablet 00:00: 04:59 (600 mg Hosp cristy 00 :00 total) by l mouth 2 (two) times a day for 14 days. linezolid 2022-0 2022- No 600mg Q.5D Take 1 Meth cordelia (ZYVOX) 600 6-13 -[address] mg tablet 00:00: 04:59 (600 mg Hosp cristy 00 :00 total) by l mouth 2 (two) times a day for 14 days. linezolid 3-0 2023- No 600mg Q.5D Take 1 Meth cordelia (ZYVOX) 600 6-13 -[address] mg tablet 00:00: 04:59 (600 mg Hosp cristy 00 :00 total) by l mouth 2 (two) times a day for 14 days. carvedilol 3-0 2023- No 20mg Take 1 Univ ers 20 mg 24 hr 3- 03-02 capsule by i ty of capsule 16:06: 00:00 mouth in [place] 28 :00 the Medical morning. Branch carvedilol 3-0 2023- No 20mg Take 1 Univ ers 20 mg 24 hr 3-02 03-02 capsule by i ty of capsule 16:06: 00:00 mouth in [place] 28 :00 the Medical morning. Branch carvedilol 3-0 Yes [id number] 20mg Take 1 U nivers 20 mg 24 hr 3-02 capsule by it y of capsule 00:00: mouth in [place] 00 the Medical morning. Branch furosemide 3-0 Yes [id number] 40mg Take 1 U nivers 40 mg 3-02 tablet by ity of tablet 00:00: mouth in [place] 00 the Medical morning. Branch carvedilol 3-0 Yes [id number] 20mg Take 1 U nivers 20 mg 24 hr 3-02 capsule by it y of capsule 00:00: mouth in [place] 00 the Medical morning. Branch furosemide 3-0 Yes [id number] 40mg Take 1 U nivers 40 mg 3-02 tablet by ity of tablet 00:00: mouth in [place] 00 the Medical morning. Branch carvedilol 3-0 Yes [id number] 20mg Take 1 U nivers 20 mg 24 hr 3-02 capsule by it y of capsule 00:00: mouth in [place] 00 the Medical morning. Branch furosemide 2023-0 Yes [id number] 40mg Take 1 U nivers 40 mg 3-02 tablet by ity of tablet 00:00: mouth in [place] 00 the Medical morning. Branch carvedilol 3-0 Yes [id number] 20mg Take 1 U nivers 20 mg 24 hr 3-02 capsule by it y of capsule 00:00: mouth in [place] 00 the Medical morning. Branch furosemide 2022-0 Yes [id number] 40mg Take 1 U nivers 40 mg 3-02 tablet by ity of tablet 00:00: mouth in [place] 00 the Medical morning. Branch amoxicillin 3-0 Yes 875mg Take 1 Uni vers 875 mg 2-24 tablet by ity of tablet 00:00: mouth [place] 00 every 12 Medical (twelve) Branch hours. amoxicillin 2023-0 Yes 875mg Take 1 Uni vers 875 mg 2-24 tablet by ity of tablet 00:00: mouth [place] 00 every 12 Medical (twelve) Branch hours. amoxicillin 3-0 Yes 875mg Take 1 Uni vers 875 mg 2-24 tablet by ity of tablet 00:00: mouth [place] 00 every 12 Medical (twelve) Branch hours. amoxicillin 3-0 Yes 875mg Take 1 Uni vers 875 mg 2-24 tablet by ity of tablet 00:00: mouth [place] 00 every 12 Medical (twelve) Branch hours. furosemide 3-0 Yes 40mg QD Take 1 Metho di [...] 2 (two) times a day. carvedilol 3-0 2023- No 20mg Q.5D Take 1 Meth cordelia CR (COREG 111-[address] CR) 20 MG 15:19: 00:00 (20 mg Hospi ta 24 hr 03 :00 total) by l capsule mouth 2 (two) times a day. carvedilol 3-0 2023- No 20mg Q.5D Take 1 Meth [...] 2 (two) times a day. carvedilol 3-0 2023- No 20mg Q.5D Take 1 Meth cordelia CR (COREG 111-[address] CR) 20 MG 15:19: 00:00 (20 mg Hospi ta 24 hr 03 :00 total) by l capsule mouth 2 (two) times a day. carvediloL 3-0 2023- No 12.5mg Q.5D Take 1 Me thodi (COREG) 11-[address] 12.5 MG 00:00: 05:59 (12.5 mg Hospi ta tablet 00 :00 total) by l mouth 2 (two) times a day for 30 days. carvediloL 2022-0 3- No 12.5mg Q.5D Take 1 Me thodi (COREG) -18 -[address] 12.5 MG 00:00: 05:59 (12.5 mg Hospi ta tablet 00 :00 total) by l mouth 2 (two) times a day for 30 days. carvediloL 2022-0 2022- No 12.5mg Q.5D Take 1 Me thodi (COREG) 18 -[address] 12.5 MG 00:00: 05:59 (12.5 mg Hospi ta tablet 00 :00 total) by l mouth 2 (two) times a day for 30 days. carvediloL 2022-0 2022- No 12.5mg Q.5D Take 1 Me thodi (COREG) 11-[address] 12.5 MG 00:00: 05:59 (12.5 mg Hospi ta tablet 00 :00 total) by l mouth 2 (two) times a day for 30 days. carvediloL 2022-0 2022- No 12.5mg Q.5D Take 1 Me thodi (COREG) 11-02-[address] 12.5 MG 00:00: 05:59 (12.5 mg Hospi ta tablet 00 :00 total) by l mouth 2 (two) times a day for 30 days. carvediloL 2022-0 2022- No 12.5mg Q.5D Take 1 Me thodi (COREG) 18 -[address] 12.5 MG 00:00: 05:59 (12.5 mg Hospi ta tablet 00 :00 total) by l mouth 2 (two) times a day for 30 days. carvediloL 2022-0 2022- No 12.5mg Q.5D Take 1 Me thodi (COREG) -18 -[address] 12.5 MG 00:00: 05:59 (12.5 mg Hospi ta tablet 00 :00 total) by l mouth 2 (two) times a day for 30 days. carvediloL 2022-0 3- No 12.5mg Q.5D Take 1 Me thodi (COREG) 11-[address] 12.5 MG 00:00: 05:59 (12.5 mg Hospi ta tablet 00 :00 total) by l mouth 2 (two) times a day for 30 days. furosemide 2021-10- No 40mg Take 1 Univ ers 40 mg 12-07 tablet by ity of tablet 00:00: 00:00 mouth in [place] 00 :00 the Medical morning. Branch furosemide 2021-10 No 40mg Take 1 Univ ers 40 mg 12-07 tablet by ity of tablet 00:00: 00:00 mouth in [place] 00 :00 the Medical morning. Branch No known 2020-10 No No known Metho di medications 0- medication st 15:12: s Hospita 13 l No known 2020-10 No No known Metho di medications 0- medication st 15:12: s Hospita 13 l No known 2020-10 No No known Metho di medications 0- medication st 15:12: s Hospita 13 l [...] 2022-12-15 21:45:00 126 mm[Hg] Univer sity of pressure [facility] Diastolic blood 2022-12-15 21:45:00 86 mm[Hg] Unive rsity of pressure [facility] Heart rate 2022-12-15 21:45:00 104 /min [facility] Body temperature 2022-12-15 21:45:00 35.94 [facility] 2022-12-15 21:45:00 188 cm [facility] Body weight 2022-12-15 21:45:00 106.595 kg [facility] BMI 2022-12-15 21:45:00 30.17 kg/m2 [facility] Oxygen saturation in 2022-12-15 21:45:00 97 /min [facility] Arterial blood by [facility] Pulse oximetry [place] Systolic blood 2023-03-28 21:07:06 122 mm[Hg] Method [facility] pressure Diastolic blood 2023-03-28 21:07:06 78 mm[Hg] [facility] pressure Heart rate 2023-03-28 21:07:06 84 /min [facility] Body temperature 2023-03-28 21:07:06 36.17 Mary Carmen [facility] Respiratory rate 2023-03-28 21:07:06 18 /min [facility] Oxygen saturation in 2023-03-28 21:07:06 97 /min [facility] Arterial blood by Pulse oximetry Body height 2023-03-23 00:01:00 188 cm [facility] Body weight 2023-03-23 00:01:00 113.399 kg [facility] BMI 2023-03-23 00:01:00 32.10 kg/m2 [facility] Systolic blood 2022-11-02 13:50:01 147 mm[Hg] Method [facility] pressure Diastolic blood 2022-11-02 13:50:01 87 mm[Hg] [facility] pressure Heart rate 2022-11-02 13:50:01 90 /min [facility] Body temperature 2022-11-02 13:50:01 36 Mary Carmen [facility] Respiratory rate 2022-11-02 13:50:01 18 /min [facility] Oxygen saturation in 2022-11-02 13:50:01 99 /min [facility] Arterial blood by Pulse oximetry Body height 2022-10-25 11:00:00 188 cm [facility] Body weight 2022-10-25 11:00:00 113.399 kg [facility] BMI 2022-10-25 11:00:00 32.10 kg/m2 [facility] Procedures Procedure Date / Time Performing Clinician Source Performed PICC INSERTION REQUEST 2023-03-28 14:05:23 Justa Winter [facility] CBC WITH PLATELET AND 2023-03-28 10:15:00 [facility] DIFFERENTIAL BASIC METABOLIC PANEL 2023-03-28 10:15:00 [facility] ESTIMATED GFR 2023-03-28 10:15:00 [facility] CBC WITH PLATELET AND 2023-03-27 09:08:00 [facility] DIFFERENTIAL BASIC METABOLIC PANEL 2023-03-27 09:08:00 [facility] VANCOMYCIN LEVEL, RANDOM 2023-03-27 09:08:00 [facility] ESTIMATED GFR 2023-03-27 09:08:00 [facility] CBC WITH PLATELET AND 2023-03-26 09:53:00 [facility] DIFFERENTIAL BASIC METABOLIC PANEL 2023-03-26 09:53:00 [facility] ESTIMATED GFR 2023-03-26 09:53:00 [facility] CBC WITH PLATELET AND 2023-03-25 09:05:00 [facility] DIFFERENTIAL BASIC METABOLIC PANEL 2023-03-25 09:05:00 [facility] ESTIMATED GFR 2023-03-25 09:05:00 [facility] MANUAL DIFFERENTIAL 2023-03-25 09:05:00 [facility] CBC WITH PLATELET AND 2023-03-24 16:23:00 Rich Ureña [facility] DIFFERENTIAL BASIC METABOLIC PANEL 2023-03-24 16:23:00 Rich Ureña [facility] ESTIMATED GFR 2023-03-24 16:23:00 [facility] TRANSFUSE RED BLOOD CELLS 2023-03-23 16:26:00 [facility] TRANSFUSE RED BLOOD CELLS 2023-03-23 12:38:00 [facility] TYPE AND SCREEN 2023-03-23 10:11:00 [facility] PREPARE RBC 2023-03-23 10:11:00 [facility] CBC WITH PLATELET AND 2023-03-23 09:33:00 [facility] DIFFERENTIAL COMPREHENSIVE METABOLIC 2023-03-23 09:33:00 [facility] PANEL ESTIMATED GFR 2023-03-23 09:33:00 [facility] MANUAL DIFFERENTIAL 2023-03-23 09:33:00 [facility] ESTIMATED GFR 2023-03-23 08:45:00 [facility] TROPONIN T 2023-03-23 03:03:00 [facility] LACTIC ACID LEVEL, SEPSIS - 2023-03-23 03:03:00 [facility] NOW AND REPEAT 2X EVERY 3 HOURS CREATININE LEVEL, URINE, 2023-03-23 01:44:00 Clayton Dale [facility] RANDOM SODIUM LEVEL, URINE, RANDOM 2023-03-23 01:44:00 [facility] PROTEIN, URINE, RANDOM 2023-03-23 01:44:00 [facility] URINE CULTURE 2023-03-23 00:49:00 [facility]YS[facility] S[facility]EN AND 2023-03-23 00:24:00 [facility], WITH REFLEX TO CULTURE LACTIC ACID LEVEL, SEPSIS - 2023-03-22 23:45:00 [facility] NOW AND REPEAT 2X EVERY 3 HOURS COMPREHENSIVE METABOLIC 2023-03-22 23:27:00 [facility] PANEL TROPONIN T 2023-03-22 23:27:00 [facility] spital CREATINE KINASE, TOTAL 2023-03-22 23:27:00 [facility] ESTIMATED GFR 2023-03-22 23:27:00 [facility] spital VENOUS BLOOD GAS 2023-03-22 22:41:00 [facility] ospital BLOOD CULTURE, AEROBIC & 2023-03-22 22:29:00 [facility] ANAEROBIC CBC WITH PLATELET AND 2023-03-22 22:27:00 [facility] DIFFERENTIAL LACTIC ACID LEVEL, SEPSIS - 2023-03-22 22:27:00 [facility] NOW AND REPEAT 2X EVERY 3 HOURS MANUAL DIFFERENTIAL 2023-03-22 22:27:00 [facility] XR CHEST 1 VW PORTABLE 2023-03-22 22:00:04 [facility] ECG 12-LEAD 2023-03-22 21:26:46 [facility] ESTIMATED GFR 2023-03-22 21:13:00 [facility] spital CT ABDOMEN PELVIS WO 2023-03-22 21:10:07 [facility] CONTRAST GA CRITICAL CARE 2023-03-22 20:41:38 [facility] ospital ILL/INJURED PATIENT INIT 30-74 MIN ECG ED PRELIMINARY 2023-03-22 20:41:38 [facility] INTERPRETATION CBC WITH PLATELET AND 2022-11-02 11:12:00 [facility]ABOLIC PANEL 2022-11-02 11:12:00 [facility] 2022-11-02 11:12:00 Camryn [facility] spital CBC WITH PLATELET AND 2022-11-01 11:35:00 [facility] DIFFERENTIAL BASIC METABOLIC PANEL 2022-11-01 11:35:00 [facility] EST[facility]FR 2022-11-01 11:35:00 Nils Cowan [facility] spital PROTEIN, URINE, RANDOM 2022-10-31 19:03:00 [facility] ALBUMIN WITH CREATININE AND 2022-10-31 19:03:00 [facility] RATIO, RANDOM URINE CREATININE LEVEL, URINE, 2022-10-31 19:03:00 [facility] RANDOM CBC WITH PLATELET AND 2022-10-31 12:10:00 Camryn [facility] DIFFERENTIAL BASIC METABOLIC PANEL 2022-10-31 12:10:00 Camryn [facility] ESTIMATED GFR 2022-10-31 12:10:00 Camryn greer [facility] spital CBC WITH PLATELET AND 2022-10-30 11:30:00 Camryn, [facility] DIFFERENTIAL BASIC METABOLIC PANEL 2022-10-30 11:30:00 Camryn [facility] ESTIMATED GFR 2022-10-30 11:30:00 Camryn greer [facility] spital CBC WITH PLATELET AND 2022-10-29 11:45:00 Camryn [facility] DIFFERENTIAL BASIC METABOLIC PANEL 2022-10-29 11:30:00 Camryn [facility] ESTIMATED GFR 2022-10-29 11:30:00 Camryn [facility]er [facility] sp[facility] IR LEFT NEPHROSTOMY INITIAL 2022-10-28 23:27:00 Samir Saha MelisaDarek burch [facility] PLACEMENT IR RIGHT NEPHROSTOGRAM NEW 2022-10-28 23:27:00 Samir Saha [facility] ACCESS CBC WITH PLATELET AND 2022-10-28 11:29:00 Camryn [facility] DIFFERENTIAL COMPREHENSIVE METABOLIC 2022-10-28 11:29:00 [facility] ESTIMATED GFR 2022-10-28 11:29:00 Camryn greer [facility] spital CBC WITH PLATELET AND 2022-10-27 12:38:00 William Mauricio [facility] DIFFERENTIAL COMPREHENSIVE METABOLIC 2022-10-27 12:38:00 [facility] PANEL BASIC METABOLIC PANEL 2022-10-27 12:38:00 HangWilliam [facility] ESTIMATED GFR 2022-10-27 12:38:00 Hang [facility] MRI PELVIS W WO CONTRAST 2022-10-26 16:51:00 chen [facility] MRI ABDOMEN W WO CONTRAST 2022-10-26 16:40:00 chen [facility] COVID-19 QUALITATIVE RT-PCR 2022-10-26 13:42:00 Rehrer, Parviz [facility] CBC WITH PLATELET AND 2022-10-26 09:30:00 Camryn [facility] DIFFERENTIAL COMPREHENSIVE METABOLIC 2022-10-26 09:30:00 Camryn, [facility] PANEL PHOSPHORUS LEVEL 2022-10-26 09:30:00 [facility] CARCINOEMBRYONIC ANTIGEN 2022-10-26 09:30:00 Jose De Jesus [facility] (CEA) FERRITIN LEVEL 2022-10-26 09:30:00 chen [facility] spital PROTHROMBIN TIME WITH INR 2022-10-26 09:30:00 chen [facility] ESTIMATED GFR 2022-10-26 09:30:00 Camryn [facility] spital CT CHEST WO CONTRAST 2022-10-25 23:50:23 [facility] RENAL 2022-10-25 17:30:04 [facility] URINALYSIS SCREEN AND 2022-10-25 17:01:00 [facility] MICROSCOPY, WITH REFLEX TO CULTURE SODIUM LEVEL, URINE, RANDOM 2022-10-25 17:01:00 [facility] CHLORIDE LEVEL, URINE, 2022-10-25 17:01:00 [facility] RANDOM CREATININE LEVEL, URINE, 2022-10-25 17:01:00 [facility] RANDOM URINE CULTURE 2022-10-25 16:55:[address] [facility] CT ABDOMEN PELVIS WO 2022-10-25 14:31:42 Rehrer, [facility] CONTRAST CBC WITH PLATELET AND 2022-10-25 12:41:00 Rehrer, [facility] DIFFERENTIAL COMPREHENSIVE METABOLIC 2022-10-25 12:41:00 Rehrer, [facility] PANEL LIPASE LEVEL 2022-10-25 12:41:00 Rehrer, [facility] URINALYSIS SCREEN AND 2022-10-25 12:41:00 Rehrer, [facility] MICROSCOPY, WITH REFLEX TO CULTURE LACTIC ACID LEVEL 2022-10-25 12:41:00 Rehrer, [facility] ESTIMATED GFR 2022-10-25 12:41:00 Amador Beatty URINE CULTURE 2022-10-25 12:30:00 Rehrer, [facility] CT CHEST EXTERNAL STUDY 2022-08-16 16:25:00 Rhys Gramajo [facility] Plan of Care Planned Activity Planned Date Details Comments Source Future Scheduled 2023-05-22 Pneumococcal Vaccine: [facility] Test 00:52:43 Pediatrics (0 to 5 Years) and At-Risk Patients (6 to 64 Years) (1 - PCV) [code = Pneumococcal Vaccine: Pediatrics (0 to 5 Years) and At-Risk Patients (6 to 64 Years) (1 - PCV)] Future Scheduled 2023-05-22 Hepatitis C screening [facility] Test 00:52:43 (procedure) [code = 810746268] Future Scheduled 2023-05-22 SHINGLES VACCINES (1 Met [facility] Test 00:52:43 of 2) [code = SHINGLES VACCINES (1 of 2)] Future Scheduled 2023-05-22 COVID-19 VACCINE (5 - [facility] Test 00:52:43 Moderna series) [code = COVID-19 VACCINE (5 - Moderna series)] Future Scheduled 2023-05-22 INFLUENZA VACCINE Method [facility] Test 00:52:43 [code = INFLUENZA VACCINE] Future Scheduled 2023-04-19 Pneumococcal Vaccine: [facility] Test 07:50:51 Pediatrics (0 to 5 Years) and At-Risk Patients (6 to 64 Years) (1 - PCV) [code = Pneumococcal Vaccine: Pediatrics (0 to 5 Years) and At-Risk Patients (6 to 64 Years) (1 - PCV)] Future Scheduled 2023-04-19 Hepatitis C screening [facility] Test 07:50:51 (procedure) [code = [id number]] Future Scheduled 2023-04-19 SHINGLES VACCINES (1 Met [facility] Test 07:50:51 of 2) [code = SHINGLES VACCINES (1 of 2)] Future Scheduled 2023-04-19 COVID-19 VACCINE (5 - [facility] Test 07:50:51 Moderna series) [code = COVID-19 VACCINE (5 - Moderna series)] Future Scheduled 2023-04-19 INFLUENZA VACCINE Method [facility] Test 07:50:51 [code = INFLUENZA VACCINE] Future Scheduled 2023-04-07 Pneumococcal Vaccine: [facility] Test 08:01:08 Pediatrics (0 to 5 Years) and At-Risk Patients (6 to 64 Years) (1 - PCV) [code = Pneumococcal Vaccine: Pediatrics (0 to 5 Years) and At-Risk Patients (6 to 64 Years) (1 - PCV)] Future Scheduled 2023-04-07 Hepatitis C screening [facility] Test 08:01:08 (procedure) [code = [id number]] Future Scheduled 2023-04-07 SHINGLES VACCINES (1 Met [facility] Test 08:01:08 of 2) [code = SHINGLES VACCINES (1 of 2)] Future Scheduled 2023-04-07 COVID-19 VACCINE (5 - [facility] Test 08:01:08 Moderna series) [code = COVID-19 VACCINE (5 - Moderna series)] Future Scheduled 2023-04-07 INFLUENZA VACCINE Method [facility] Test 08:01:08 [code = INFLUENZA VACCINE] Future Scheduled 2023-03-31 Pneumococcal Vaccine: [facility] Test 10:53:42 Pediatrics (0 to 5 Years) and At-Risk Patients (6 to 64 Years) (1 - PCV) [code = Pneumococcal Vaccine: Pediatrics (0 to 5 Years) and At-Risk Patients (6 to 64 Years) (1 - PCV)] Future Scheduled 2023-03-31 Hepatitis C screening [facility] Test 10:53:42 (procedure) [code = [id number]] Future Scheduled 2023-03-31 SHINGLES VACCINES (1 Met [facility] Hospital Test 10:53:42 of 2) [code = SHINGLES VACCINES (1 of 2)] Future Scheduled 2023-03-31 COVID-19 VACCINE (5 - [facility] Test 10:53:42 Moderna series) [code = COVID-19 VACCINE (5 - Moderna series)] Future Scheduled 2023-03-31 INFLUENZA VACCINE Method [facility] Test 10:53:42 [code = INFLUENZA VACCINE] Future Scheduled 2023-01-16 Pneumococcal Vaccine: [facility] Test 20:02:08 Pediatrics (0 to 5 Years) and At-Risk Patients (6 to 64 Years) (1 - PCV) [code = Pneumococcal Vaccine: Pediatrics (0 to 5 Years) and At-Risk Patients (6 to 64 Years) (1 - PCV)] Future Scheduled 2023-01-16 Hepatitis C screening [facility] Test 20:02:08 (procedure) [code = [id number]] Future Scheduled 2023-01-16 SHINGLES VACCINES (1 Met [facility] Test 20:02:08 of 2) [code = SHINGLES VACCINES (1 of 2)] Future Scheduled 2023-01-16 COLONOSCOPY SCREENING [facility] Test 20:02:08 [code = COLONOSCOPY SCREENING] Future Scheduled 2023-01-16 COVID-19 VACCINE (5 - [facility] Test 20:02:08 Booster for Moderna series) [code = COVID-19 VACCINE (5 - Booster for Moderna series)] Future Scheduled 2023-01-16 INFLUENZA VACCINE [facility] Test 20:02:08 [code = INFLUENZA VACCINE] Future Scheduled 2022-12-06 Pneumococcal Vaccine: [facility] Test 08:31:10 Pediatrics (0 to 5 Years) and At-Risk Patients (6 to 64 Years) (1 - PCV) [code = Pneumococcal Vaccine: Pediatrics (0 to 5 Years) and At-Risk Patients (6 to 64 Years) (1 - PCV)] Future Scheduled 2022-12-06 Hepatitis C screening [facility] Test 08:31:10 (procedure) [code = 075685847] Future Scheduled 2022-12-06 SHINGLES VACCINES (1 Met [facility] Test 08:31:10 of 2) [code = SHINGLES VACCINES (1 of 2)] Future Scheduled 2022-12-06 COLONOSCOPY SCREENING [facility] Test 08:31:10 [code = COLONOSCOPY SCREENING] Future Scheduled 2022-12-06 INFLUENZA VACCINE [facility] Test 08:31:10 [code = INFLUENZA VACCINE] Future Scheduled 2022-12-06 COVID-19 VACCINE (5 - [facility] Test 08:31:10 Booster for Moderna series) [code = COVID-19 VACCINE (5 - Booster for Moderna series)] Future Scheduled 2022-11-30 Pneumococcal Vaccine: [facility] Test 08:08:13 Pediatrics (0 to 5 Years) and At-Risk Patients (6 to 64 Years) (1 - PCV) [code = Pneumococcal Vaccine: Pediatrics (0 to 5 Years) and At-Risk Patients (6 to 64 Years) (1 - PCV)] Future Scheduled 2022-11-30 Hepatitis C screening [facility] Test 08:08:13 (procedure) [code = [id number]] Future Scheduled 2022-11-30 SHINGLES VACCINES (1 [facility] Test 08:08:13 of 2) [code = SHINGLES VACCINES (1 of 2)] Future Scheduled 2022-11-30 COLONOSCOPY SCREENING [facility] Test 08:08:13 [code = COLONOSCOPY SCREENING] Future Scheduled 2022-11-30 INFLUENZA VACCINE [facility] Test 08:08:13 [code = INFLUENZA VACCINE] Future Scheduled 2022-11-30 COVID-19 VACCINE (5 - [facility] Test 08:08:13 Booster for Moderna series) [code = COVID-19 VACCINE (5 - Booster for Moderna series)] Future Scheduled 2022-11-16 Pneumococcal Vaccine: [facility] Test 08:53:45 Pediatrics (0 to 5 Years) and At-Risk Patients (6 to 64 Years) (1 - PCV) [code = Pneumococcal Vaccine: Pediatrics (0 to 5 Years) and At-Risk Patients (6 to 64 Years) (1 - PCV)] Future Scheduled 2022-11-16 Hepatitis C screening [facility] Test 08:53:45 (procedure) [code = [id number]] Future Scheduled 2022-11-16 SHINGLES VACCINES (1 [facility] Test 08:53:45 of 2) [code = SHINGLES VACCINES (1 of 2)] Future Scheduled 2022-11-16 COLONOSCOPY SCREENING Me [facility] Test 08:53:45 [code = COLONOSCOPY SCREENING] Future Scheduled 2022-11-16 INFLUENZA VACCINE Method ist Hospital Test 08:53:45 [code = INFLUENZA VACCINE] Future Scheduled 2022-11-16 COVID-19 VACCINE (5 - [facility] Test 08:53:45 Booster for Moderna series) [code = COVID-19 VACCINE (5 - Booster for Moderna series)] Future Scheduled 2022-09-26 Hepatitis C screening [facility] Test 23:54:04 (procedure) [code = 645720971] Future Scheduled 2022-09-26 COLONOSCOPY SCREENING [facility] Test 23:54:04 [code = COLONOSCOPY SCREENING] Future Scheduled 2022-09-26 SHINGLES VACCINES (1 Met [facility] Test 23:54:04 of 2) [code = SHINGLES VACCINES (1 of 2)] Future Scheduled 2022-09-26 INFLUENZA VACCINE Method is Hospital Test 23:54:04 [code = INFLUENZA VACCINE] Future Scheduled 2022-09-26 COVID-19 VACCINE (5 - [facility] Test 23:54:04 Booster for Moderna series) [code = COVID-19 VACCINE (5 - Booster for Moderna series)] Future Scheduled 2022-09-26 Hepatitis C screening [facility] Test 23:54:04 (procedure) [code = [id number]] Future Scheduled 2022-09-26 COLONOSCOPY SCREENING [facility] Test 23:54:04 [code = COLONOSCOPY SCREENING] Future Scheduled 2022-09-26 SHINGLES VACCINES (1 Met [facility] Test 23:54:04 of 2) [code = SHINGLES VACCINES (1 of 2)] Future Scheduled 2022-09-26 INFLUENZA VACCINE Method ist Hospital Test 23:54:04 [code = INFLUENZA VACCINE] Future Scheduled 2022-09-26 COVID-19 VACCINE (5 - [facility] Test 23:54:04 Booster for Moderna series) [code = COVID-19 VACCINE (5 - Booster for Moderna series)] Future Scheduled 2022-08-26 HEPATITIS B VACCINES Met [facility] Test 02:17:57 (1 of 3 - 3-dose series) [code = HEPATITIS B VACCINES (1 of 3 - 3-dose series)] Future Scheduled 2022-08-26 Hepatitis C screening [facility] Test 02:17:57 (procedure) [code = [id number]] Future Scheduled 2022-08-26 COLONOSCOPY SCREENING [facility] Test 02:17:57 [code = COLONOSCOPY SCREENING] Future Scheduled 2022-08-26 SHINGLES VACCINES (1 Met [facility] Test 02:17:57 of 2) [code = SHINGLES VACCINES (1 of 2)] Future Scheduled 2022-08-26 INFLUENZA VACCINE Method is Hospital Test 02:17:57 [code = INFLUENZA VACCINE] Future Scheduled 2022-08-26 COVID-19 VACCINE (5 - [facility] Test 02:17:57 Booster for Moderna series) [code = COVID-19 VACCINE (5 - Booster for Moderna series)] Encounters Start End Encounter Admission Attending Care Care Encounter Source Date/Time Date/Time Type Type Clinicians Facility Department ID 2022-09-15 Inpatient Tarsha Mancera [facility] RTX [id number] [facility] 00:08:00 00 [facility] 2022-02-13 Inpatient OhTarsha [facility] RTX [id number] [facility] 15:50:00 64 [facility] 2022-01-14 Inpatient Tarsha Mancera [facility] RTX [id number] [facility] 16:09:00 81 [facility] 2023-04-13 2023-04-13 Outpatient Lalo Sierra HCAPM RADI LA0 [id number] [facility] 14:47:00 14:47:00 19 [facility] 2023-04-13 2023-04-13 Outpatient Nickell_[place] [facility] [place] [id number] [place] 00:00:00 00:00:00 [id number] 2023-04-09 2023-04-09 Outpatient Nickell_K [facility] U [id number] [place] 00:00:00 00:00:00 8[facility]63 [facility] 2023-03-22 2023-03-28 [facility] [place] 1.2.840.1 [id number] Methodi 15:37:00 19:03:00 Encounter Eladio Stafford 38276.1.1 050 Efrem Fritzs K. 3.430.2.7 [facility] .[facility].24[facility] .8 2023-03-22 2023-03-28 [facility] [place] 1.2.840.1 [id number] Methodi 15:37:00 19:03:00 Encounter Eladio Stafford 29247.1.1 050 Shanika Fritz K. 3.430.2.7 [facility] .[facility].394818 l .8 2023-03-22 2023-03-22 Travel 1.2.840.1 1.2.889.854 2780 [id number] Methodi 00:00:00 00:00:[address] 3.430.2.7 0.2.7.3.698 Ho spita .3.291502 084.8 l .8 2023-03-22 2023-03-22 Travel 1.2.840.1 1.2.380.317 0026 [id number] Methodi 00:00:00 00:00:[address] 3.430.2.7 0.2.7.3.698 Ho spita .3.028563 084.8 l .8 2023-03-17 2023-03-17 Outpatient R SHERYL CHARLES [facility] [id number] [facility] 15:20:00 15:20:00 SHERYL CHARLES lilian [facility] 2022-12-20 2022-12-20 Outpatient GC_BCSS_How PRIV PRIV 267 [id number] [facility] 00:00:00 00:00:00 Coby [id number] Medic al 2022-12-16 2022-12-16 Outpatient GC_BCSS_How PRIV PRIV 267 [id number] [facility] 00:00:00 00:00:00 ell_Dan1 [id number] Medic al 2022-12-16 2022-12-16 Telephone Pillo [facility] 1.2.452.557 0999 [id number] [facility] 00:00:00 00:00:00 [facility] 350.1.13.10 ity radha [place] 4.2.7.2.686 Ramón as JO ANN?BLEA [id number] [address] OFFICE [facility] 2022-12-15 2022-12-15 [facility] [id number] Univers 15:20:00 16:12:20 [facility] 2022-12-15 2022-12-15 Office [facility] 1.2.840.114 [id number] Univers 15:20:00 16:12:20 Visit [facility] 350.1.13.10 ity radha [place] 4.2.7.2.686 Ramón as JO ANN?BLEA [id number] [address] 2022-12-13 2022-12-13 Outpatient GC_BCSS_How PRIV PRIV 267 [id number] [facility] 00:00:00 00:00:00 ell_Dan1 [id number] Medic al 2022-11-23 2022-11-23 Travel 1.2.840.1 1.2.934.477 9846 [id number] Methodi 00:00:00 00:00:[address] 3.430.2.7 0.2.7.3.698 Ho spita .3.063708 084.8 l .8 2022-11-23 2022-11-23 Travel 1.2.840.1 1.2.266.878 0900 [id number] Methodi 00:00:00 00:00:[address] 3.430.2.7 0.2.7.3.698 Ho spita .3.047297 084.8 l .8 2022-10-25 2022-11-02 Hospital Rehrer Parviz Charlie 1.2.840.1 104 [id number] Methodi 05:01:00 15:19:00 Encounter Nils Cowan 53884.1.[address] 3.430.2.7 Hospit a .3.262270 l .8 2022-10-25 2022-11-02 Hospital RehrerParviz 1.2.840.1 104 [id number] Methodi 05:01:00 15:19:00 Encounter Nils Cowan 35762.1.[address] 3.430.2.7 Hospit a .3.273214 l .8 2022-10-25 2022-10-25 Travel 1.2.840.1 1.2.219.040 2186 [id number] Methodi 00:00:00 00:00:[address] 3.430.2.7 0.2.7.3.698 Ho spita .3.853843 084.8 l .8 2022-10-25 2022-10-25 Travel 1.2.840.1 1.2.846.387 7634 562221 Methodi 00:00:00 00:00:[address] 3.430.2.7 0.2.7.3.698 Ho spita .3.871909 084.8 l .8 2022-09-01 2022-09-14 [facility] [id number] [facility] 09:25:00 00:00:[address] [place] [address] 2022-08-25 2022-08-25 Hospital Rox, 1.2.840.1 [id number] 2099 [id number] Methodi 08:26:09 23:59:00 Encounter Rhys 29405.1.[address] Jeremy 3.430.2.7 Hospit a .3.769170 l .8 2022-08-25 2022-08-25 Hospital Rox, 1.2.840.1 [id number] 2099 [id number] Methodi 08:26:09 23:59:00 Encounter Rhys 21482.1.[address] Jeremy 3.430.2.7 Hospit a .3.496453 l .8 2022-04-25 2022-04-25 [id number] 09:28:00 09:28:00 [id number] [facility] 2022-04-25 2022-04-25 Outpatient EL Oh, Tarsha [facility] RTX [id number] [facility] 09:28:00 09:28:00 74 [facility] 2022-01-14 2022-02-12 Outpatient EL Oh, Tarsha [facility] RTX [id number] [facility] 08:34:00 00:00:00 74 [facility] 2021-12-14 2022-01-13 Inpatient EL Oh, Tarsha [facility] RTX [id number] [facility] 14:32:00 00:00:00 52 [facility] 2021-12-27 2021-12-27 Inpatient EL Oh, Tarsha [facility] SUGL [id number] [facility] 10:30:00 09:30:00 05 [facility] 2021-12-21 2021-12-21 Outpatient EL Oh, Tarsha [facility] SUGL [id number] [facility] 09:11:00 09:11:00 36 [facility] 2021-10-18 2021-11-15 Inpatient EL Oh, Tarsha [facility] RTX [id number] [facility] 11:23:00 00:00:00 91 [facility] 2021-09-02 2021-09-14 Outpatient EL Oh, Tarsha [facility] RTX [id number] [facility] 10:13:00 00:00:00 86 [facility] 2021-09-08 2021-09-08 Outpatient EL Oh, Tarsha [facility] SUGL [id number] [facility] 08:46:00 08:46:00 74 [facility] 2021-08-06 2021-08-06 Outpatient DALECHEN DERRICK [facility] [id number] [place] 00:00:00 00:00:[address] 2021-08-04 2021-08-04 Outpatient JOSE DE JESUS DERRICK [facility] 769 [id number] [place] 00:00:00 00:00:[address] 2021-08-01 2021-08-03 Outpatient LAILA [facility] [id number] 856 [place] 00:00:00 00:00:00 JENNY [address] 2021-07-23 2021-07-23 Outpatient DERRICK HOLT [facility] 785 [id number] [place] 00:00:00 00:00:00 041 Method i 2021-07-23 2021-07-23 Outpatient DERRICK HOLT [facility] 714 [id number] [place] 00:00:00 00:00:00 991 Method i 2021-07-21 2021-07-21 Outpatient DERRICK HOLT [facility] [id number] [place] 00:00:00 00:00:00 901 Method i 2021-07-21 2021-07-21 Outpatient DERRICK HOLT [facility] 912 [id number] [place] 00:00:00 00:00:00 867 Method i 2021-06-28 2021-07-06 Inpatient NILS COWAN [facility] 078 [id number] 60118 [place] 00:00:00 00:00:00 942 Method i 2021-06-02 2021-06-02 Outpatient JONATHAN [facility] 2100 [id number] [place] 00:00:00 00:00:00 065 Method i 2021-04-26 2021-04-26 Emergency X [facility] ERT [id number] Univers 16:39:00 16:39:00 [facility] Results Test Description Test Time Test Comments Results Result [facility] e Comments - CT ABD PELVIS 2023-04-13 W/O CONT 16:44:00 [facility] 1965 Sex: M Name: GENO PRASAD [facility] : 1965 Age/S: 57 / M [address] [place] Unit #: [id number] Loc: [place] [address] Phys: Lalo Ruiz MD Acct: [id number] Dis Date: Status: REG CLI PHONE #: [phone] Exam Date: 04/13/2023 150 FAX #: Reason: HYDRONEPHROSIS DUE TO OBSTRUTION OF URETER EXAMS: CPT: [id number] CT ABD PELVIS W/O CONT 04696 EXAMINATION: - CT ABD PELVIS W/O CONT. [...] PRASAD : 1965 Age/S: 57 / M [address] [address] [place] Unit #: [id number] Loc: Adriel Caba [address] Phys: Lalo Ruiz MD Acct: [id number] Dis Date: Status: REG CLI PHONE #: [phone] Exam Date: 04/13/2023 1501 FAX #: Reason: HYDRONEPHROSIS DUE TO OBSTRUTION OF URETER EXAMS: CPT: [id number] CT ABD PELVIS W/O CONT 21253 (Continued) abnormality is identified. No aggressive lytic [...] Lalo Ruiz MD; Seymour Sales MD Technologist:Ayden Maxwell RT,(R),(CT); Erin CTDI: DLP: Trnscb Date/Time: 04/13/2023 (1644) [email or web address] Orig Print D/T: S: 04/13/2023 (6969) PAGE 2 Signed Report Prepare RBC, 2 Units 2023-03-23 16:16:00 Test Item Value Reference Range Interpretation Comme nts Product name (test code = 25) Red Cells AS1 Leukored Irrad Unit number (test code = 2771031) [id number] Product code (test code = 3092) K5610U65 Dispense status (test code = 24) Transfused Blood expiration date (test code = 302) 699029563395 Blood type code (test code = 308) 6200 Blood type (test code = 1314) A POSITIVE Compatibility (test code = 6400) Compatible [facility] RBC, 2 [id number] 16:16:00 Test Item Value Reference Range Interpretation Comments Product name (test code Red Cells AS1 Leukored = 25) Irrad Unit number (test code [id number] = 7725096) Product code (test code F0869R87 = 3092) Dispense status (test Transfused code = 24) Blood expiration date (test code = 302) Blood type code (test 6200 code = 308) Blood type (test code = A POSITIVE 1314) Compatibility (test Compatible code = 6400) [facility] RBC, 2 [id number] 16:16:00 Test Item Value Reference Range Interpretation Comments Product name (test code Red Cells AS1 Leukored = 25) Irrad Unit number (test code [id number] = 6791914) Product code (test code Y1212U93 = 3092) Dispense status (test Transfused code = 24) Blood expiration date (test code = 302) Blood type code (test 6200 code = 308) Blood type (test code = A POSITIVE 1314) Compatibility (test Compatible code = 6400) [facility] RBC, 2 [id number] 16:16:00 Test Item Value Reference Range Interpretation Comments Product name (test code Red Cells AS1 Leukored = 25) Irrad Unit number (test code [id number] = 1407927) Product code (test code A9871V05 = 3092) Dispense status (test Transfused code = 24) Blood expiration date (test code = 302) Blood type code (test 6200 code = 308) Blood type (test code = A POSITIVE 1314) Compatibility (test Compatible code = 6400) [facility] 12 [id number] 03:42:02 Test Item Value Reference Range Interpretation Comments Ventricular rate (test 121 code = 253) Atrial rate (test code 121 = 255) GA interval (test code 156 = 266) QRSD [...] for LVH, may be normal variant ( Marion product )-T wave abnormality, consider lateral ischemia-Abnormal ECG-No previous ECGs available-Electronical ly Signed By Bentley Card MD ([id number]) on 03/22/2023 10:41:52 PM [address]2023-06-08 03:42:02 Test Item Value Reference Range Interpretation Comments Ventricular rate (test 121 code = 253) Atrial rate (test code 121 = 255) GA interval (test code 156 = 266) QRSD [...] previous ECGs available-Electronical ly Signed By Bentley Crad MD ([id number]) on 03/22/2023 10:41:52 [address]2023-06-08 03:42:02 Test Item Value Reference Range Interpretation Comments Ventricular rate (test 121 code = 253) Atrial rate (test code 121 = 255) GA interval (test code 156 = 266) QRSD [...] available-Electronical ly Signed By Bentley Card MD ([id number]) on 03/22/2023 10:41:52 PM [address]2023-06-08 03:42:02 Test Item Value Reference Range Interpretation Comments Ventricular rate (test 121 code = 253) Atrial rate (test code 121 = 255) GA interval (test code 156 = 266) QRSD [...] available-Electronical ly Signed By Bentley Card MD ([id number]) on 03/22/2023 10:41:52 PM [facility] VENOUS BLOOD [id number] 21:59:00 Test Item Value Reference Range Interpretation Comments POC VENOUS BLOOD 7.340 pH units 7.26-7.43 N GAS PH (test code = POCPHV) POC VENOUS BLOOD 54.2 mmHg e 35.0-45.0 H GAS PCO2 (test code = HMKFMJ2E) POC VENOUS BLOOD 38.8 mmHg e 80.0-100.0 LL GAS PO2 (test code = MSDOK2X) POC TCO2 VENOUS 28.6 MMOL/L e 24.0-30.0 N (test code = KGBJDL5Q) POC HCO3 VENOUS 29.2 MMOL/L e 22.0-26.0 H (test code = QQFIQR8L) POC BASE EXCESS 2.7 MMOL/L e See_Comment N [Automated VENOUS (test code = message] The system POCBEV) which generated this result transmitted reference range : -3.0 to 3.0. Th e reference range was not used to interpret this result as normal/abnormal . POC O2 SATURATION 69 % e 95-100 L VENOUS (test code = OZZK7SH) POC SAMPLE SOURCE Venous Descript Specimen (test code = POCSAMPLE) CBC W/AUTO [id number] 10:20:00 Test Item Value Reference Range Interpretation [...] NO DIFF/SCN CRITERIA = MDIFF) BASIC METABOLIC [id number] 10:12:00 Test Item Value Reference Range Interpretation [...] recommended for shayy for GFRby the N [facility] Kidney Foundati on for Adults.The GFR will not calculate i f the sex is unknown or if thepatient's ag e is <18 years. CREATININE (test 1.6 MG/DL 0.8-1.3 H code = CREAT) CALCIUM (test code 9.4 MG/DL 8.5-10.1 N = CA) PROTHROMBIN [id number] 09:00:00 Test Item Value Reference Range Interpretation [...] in Respiratory specimen by YVROSE with probe [id number] 11:43:33 Test Item Value Reference Range Interpretation Comments SARS-CoV-2 (COVID-19) RNA Not detected [Presence] in Respiratory specimen by YVROSE with probe detection (test code = 84588-1) Whether patient is employed in a Unknown healthcare setting (test code = 58762-6) Whether the patient has symptoms Unknown related to condition of interest (test code = 68401-0) Whether the patient was Unknown hospitalized for condition of interest (test code = 92833-5) Whether the patient was admitted Unknown to intensive care unit (ICU) for condition of interest (test code = 91015-3) Whether patient resides in a Unknown congregate care setting (test code = 78018-7) status (test code = Unknown 60059-2) Date and time of symptom onset Unknown (test code = 28113-9) [facility]2023-01-10 18:02:00 Test Item Value Reference Range Interpretation Comments Urine culture (test SEE COMMENT Bacteriu rony screen code = 7841740) negative. [facility]2023-01-10 18:02:00 Test Item Value Reference Range Interpretation Comments Urine culture (test SEE COMMENT Bacteriu rony screen code = 5332862) negative. [facility]2023-01-10 18:02:00 Test Item Value Reference Range Interpretation Comments Urine culture (test SEE COMMENT Bacteriu rony screen code = 7837905) negative. [facility]2023-01-10 18:02:00 Test Item Value Reference Range Interpretation Comments Urine culture (test SEE COMMENT Bacteriu rony screen code = 8204495) negative. [facility]- PET[id number] 14:28[facility]00 [facility] 1965 Sex: M Patient Name: GENO PRASAD Unit No: [id number] EXAMS: CPT CODE: [id number] PET/CT TUMOR SK BS MIDTH 17059 EXAMINATION: - PET/CT TUMOR SK BS MIDTH [...] the drain follows the course of the [facility] NAME: GENO PRASAD [address] [facility] [address] PHYS: [place] [address] : 1965 AGE: 56 SEX: M LOC: EMILYUC PHONE #: [phone] EXAM DATE: 12/21/2021 STATUS: REG CLI FAX #: [phone] RADIOLOGY NO: PAGE 1 SignedReport (CONTINUED) Patient Name: GENO PRASAD Unit No: [id number] EXAMS: CPT CODE: [id number] PET/CTTUMOR SK BS MIDTH 21030 <Continued> sigmoid colon. Uptake in the more proximal sigmoid colon of up to 6.8 was seen on the prior exam. There is continued thickening abnormal uptake in the rectum. Area of uptake measures approximately 5.2 x 2.8 cm with uptake values up to 7.2 (previously 4.7 x 2.4cm when remeasured in a similar manner with an uptake of 6.5). However, exact comparison is difficult given the changes related to the recent surgery. Scattered areas of nonspecific uptake are seen in the more proximal bowel MUSCULOSKELETAL SYSTEM: Areas of osteoarthritic uptake are seen around the right shoulder, both hips and in the facet joints of the lower lumbar spine. No suspicious bony lesionsare identified. IMPRESSION: Interval postsurgical changes as above. [...] Tarsha Mancera MD Technologist: Alessia Bradshaw, RT(M)(CT); iLnnea Vasquez RT(N) Transcrpt Date/Tm/Trnsp: 12/21/2021 (1428) [email or web address] Orig Print D/T: S: 12/21/2021 (1542) [facility] NAME: GENO PRASAD [address] [facility] [address] PHYS: [place] [address] : 1965 AGE: 56 SEX: M LOC: DayronZNUC PHONE #: [phone] EXAM DATE: 12/21/2021 STATUS: REG CLI FAX #: [phone] RADIOLOGY NO: PAGE 2 Signed [id number] 09:50:00 Test Item Value Reference Range Interpretation Comments GLUCOSE (test code = GLU) 98 MG/DL 79-105 N Comments to Nursing Service Administrator: FOR PETIs this a LINE draw? N- [id number] 13:41:00 [facility] : 1965 Sex: M Patient Name: GENO PRASAD Unit No: [id number] EXAMS: CPT CODE: [id number] PET/CT TUMOR [facility] [address] EXAM: PET/CT scan INDICATION: MALIGNANT NEOPLASM OF RECTUM COMPARISON: None at this time LOCATION: [facility] TECHNIQUE: Approximately 60 minutes following [...] spine without and with contrast is recommended. [facility] NAME: GENO PRASAD[address] [place] [address] PHYS: [place] [address] : 1965 AGE: 56 SEX: M LOC: Z.ZNUC PHONE #: [phone] EXAM DATE: 09/08/2021 STATUS: DEP [place] #: [phone] RADIOLOGY NO: PAGE 1 Signed Report (CONTINUED) Patient Name: GENO PRASDA UnitNo: [id number] EXAMS: CPT CODE: [id number] PET/CT TUMOR SK MIDTH 85251 <Continued> There aresmall lymph nodes in the right axilla, measuring less than a centimeter in mean diameter each, demonstrating minimal hypermetabolic activity, with a maximum SUV of 1.4. These appear to most likely represent benign reactive lymph nodes. Otherwise unremarkable PET/CT scan. at 1341 Reported and signed by: Beau Marr MD CC: Shasha Mancera MD Technologist: Linnea Vasquez RT(N) Transcrpt Date/Tm/Trnsp: 09/10/2021 (1341) [email or web address] Orig Print D/T: S: 09/10/2021 (2404) [facility] NAME: GENO PRASAD [address] [address] PHYS: [place] [address] : 1965 AGE: 56 SEX: M LOC: HANNAH PHONE #: [phone] EXAM DATE: 09/08/2021 STATUS: DEP CLI FAX #: [phone] RADIOLOGY NO: PAGE 2 Signed [id number] 09:44:00 Test Item Value Reference Range Interpretation Comments GLUCOSE (test code = GLU) 86 MG/DL 79-105 N SARS-CoV-2 (COVID-19) RNA [Presence] in Respiratory specimen by YVROSE with probe [id number] 18:54:41 Test Item Value Reference Range Interpretation Comments SARS-CoV-2 (COVID-19) RNA Not detected Not-Detected [Presence] in Respiratory specimen by YVROSE with probe detection (test code = 29121-4) Whether patient is employed in a healthcare setting (test code = 18778-8) Whether the patient has symptoms related to condition of interest (test code = 02999-5) Patient was hospitalized because of this condition (test code = 25654-4) Whether the patient was admitted to intensive care unit (ICU) for condition of interest (test code = 70605-9) Whether patient resides in a congregate care setting (test code = 76932-6) status (test code = 72279-2) BERNARDO SIMPSONRS-CoV-2 (COVID-19) RNA [Presence] in Respiratory specimen by YVROSE with probe [id number] 16:30:19 Test Item Value Reference Range Interpretation Comments SARS-CoV-2 (COVID-19) RNA Not detected Not-Detected [Presence] in Respiratory specimen by YVROSE with probe detection (test code = 99751-6) Whether patient is employed in a healthcare setting (test code = 25386-1) Whether the patient has symptoms related to condition of interest (test code = 76609-4) Patient was hospitalized because of this condition (test code = 62426-5) Whether the patient was admitted to intensive care unit (ICU) for condition of interest (test code = 25331-5) Whether patient resides in a congregate care setting (test code = 53581-9) [facility] Notes Date/Time Note Provider Source 2022-09-01 11:09:00-00:00 5067-0643 [facility] [place] of: [facility] [id number] [place] [address] PATIENT NAME: GENO PRASAD ADMIT DATE: 09/01/22 ACCOUNT NO: [id number] ROOM NO: AGE: 57 REPORT TYPE: ePROGRESS NOTE RADIATION ONC SEX: M ADMITTING PHYSICIAN: ATTENDING PHYSICIAN:Tarsha Mancera MD Patient MR#: [id number] Date of Service: 09/01/2022 Patient Name: GENO PRASAD Patient : 1965 Patient MR#: [id number] Physician: Tarsha Mancera M.D. Follow-Up Note Diagnosis: [...] 08/16 11:13:58 AM Cc: Bro Vargas M.D. [address] [place] [address] - - Page 2 of 2 Electronically Signed by Tarsha Mancera MD on 09/01 at 1114 PATIENT NAME: GENO PRASAD 994 2022-09-01 10:57:00-00:00 6787-4709 [facility] [place] of: [address] [address] PATIENT NAME: GENO PRASAD ADMIT DATE: 09/01/22 ACCOUNT NO: [id number] ROOM NO: AGE: 57 REPORT TYPE: ePHYSICIAN ORDER RADIATION ONC SEX: M ADMITTING PHYSICIAN: ATTENDING PHYSICIAN:Tarsha Mancera MD PHYSICIAN ORDER SCAN SHEET Department of Radiation Oncology [facility] Patient: GENO PRASAD : 1965 MR#: [id number] Physician: Tarsha Mancera M.D. Date: 09/01/2022 Referring Physician: Bro Vargas M.D. 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 on 09/15/2022 2:56:10 PM Electronically Signed by Tarsha Mancera MD on 09/15 at 1456 PATIENT NAME: GENO PRASAD 994 2022-04-25 09:42:00-00:00 8600-1348 [facility] [place] of: [place] [address] PATIENT NAME: GENO PRASAD ADMIT DATE: 04/25/22 ACCOUNT NO: [id number] ROOM NO: AGE: 56 REPORT TYPE: ePHYSICIAN ORDER RADIATION ONC SEX: M ADMITTING PHYSICIAN: ATTENDING PHYSICIAN:Tarsha Mancera MD PHYSICIAN ORDER SCAN SHEET Department of Radiation Oncology [facility] Patient: GENO PRASAD : 1965 MR#: [id number] Physician: Tarsha Mancera M.D. Date: 04/25/2022 Referring Physician: Bro Vargas M.D. 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 on 04/25/2022 11:24:45 AM Electronically Signed by Tarsha Mancera MD on 04/25 at 1124 PATIENT NAME: GENO PRASAD 374 2022-04-25 09:40:00-00:00 3710-2261 [facility] [place] of: [facility] [address] [place] [address] PATIENT NAME: GENO PRASAD ADMIT DATE: 04/25/22 ACCOUNT NO: [id number] ROOM NO: AGE: 56 REPORT TYPE: ePROGRESS NOTE RADIATION ONC SEX: M ADMITTING PHYSICIAN: ATTENDING PHYSICIAN:Tarsha Mancera MD Patient MR#: [id number] Date of Service: 04/25/2022 Patient Name: GENO PRASAD Patient : 1965 Patient MR#: [id number] Physician: Tarsha Mancera M.D. Follow-Up Note Diagnosis: [...] 04/25 9:51:22 AM Cc: Bro Vargas M.D. [address] [place] [address] - - Page 2 of 2 Electronically Signed by Tarsha Mancera MD on 04/25 at 0951 PATIENT NAME: GENO PRASAD 5374 2022-01-31 11:41:00-00:00 5010-8162 [facility] [place] of: [place] [address] PATIENT NAME: GENO PRASAD ADMIT DATE: 01/14/22 ACCOUNT NO: [id number] ROOM NO: AGE: 56 REPORT TYPE: ePHYSICIAN ORDER RADIATION ONC SEX: M ADMITTING PHYSICIAN: ATTENDING PHYSICIAN:Tarsha Mancera MD PHYSICIAN ORDER SCAN SHEET Department of Radiation Oncology [facility] Patient: GENO PRASAD : 1965 MR#: [id number] Physician: Tarsha Mancera M.D. Date: 01/31/2022 Referring Physician: Bro Vargas M.D. 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 on 02/01/2022 10:25:38 AM Electronically Signed by Tarsha Mancera MD on 02/01 at 1025 PATIENT NAME: GENO PRASAD 074 2022-01-19 13:17:00-00:00 7303-1587 [facility] [place] of: [place] [address] PATIENT NAME: GENO PRASAD ADMIT DATE: 01/14/22 ACCOUNT NO: [id number] ROOM NO: AGE: 56 REPORT TYPE: ePROGRESS NOTE RADIATION ONC SEX: M ADMITTING PHYSICIAN: ATTENDING PHYSICIAN:Tarsha Mancera MD Patient MR#: [id number] Date of Service: 01/19/2022 Patient Name: GENO PRASAD Patient : 1965 Patient MR#: [id number] Physician: Tarsha Mancera M.D. Weekly OTV Note [...] Tarsha Mancera M.D. on 2021 1:18:[id number] [place] [address] - - Page 2 of 2 Electronically Signed by Tarsha Mancera MD on 01/19 at 0888 PATIENT NAME: GENO PRASAD 074 2021-12-31 14:52:00-00:00 5022-2137 [facility] [place] of: [address] [address] PATIENT NAME: GENO PRASAD ADMIT DATE: 12/14/21 ACCOUNT NO: [id number] ROOM NO: AGE: 56 REPORT TYPE: ePROCEDURE NOTE RADIATION ONC SEX: M ADMITTING PHYSICIAN: ATTENDING PHYSICIAN:Tarsha Mancera MD Patient MR#: <Patient Id 1> Date of Service: 12/31/2021 Patient Name: GENO PRASAD Patient : 1965 Patient MR#: [id number] Physician: Tarsha Mancera M.D. Treatment Planning Note [...] of treatment is req uested. MODALITY: ___ 3D-21622/51725/69461/34792/67035/99505/65421 /42436/36083/61045 __x_ IMRT-18602/47723/91916/05289/86339/09155/77 293/20748/45272/96422 ___ SRS/SBRT-07017/09250/23585/06607/74227/52027 /80233/25142/03465 Sincerely, PATIENT NAME: GENO PRASAD 652 Page 2 of 2 Electronically Signed and Approved by Tarsha Mancera M.D. 12/31/2021 2:56:50 PM Electronically Signed by Tarsha Mancera MD on 12/31 at 1456 PATIENT NAME: GENO PRASAD 652 2021-12-31 14:24:00-00:00 9114-6455 [facility] [place] of: [facility] [address] [place] [address] PATIENT NAME: GENO PRASAD ADMIT DATE: 12/14/21 ACCOUNT NO: [id number] ROOM NO: AGE: 56 REPORT TYPE: ePROCEDURE NOTE RADIATION ONC SEX: M ADMITTING PHYSICIAN: ATTENDING PHYSICIAN:Tarsha Mancera MD Patient MR#: [id number] Date of Service: 12/31/2021 Patient Name: GENO PRASAD Patient : 1965 Patient MR#: [id number] Physician: Tarsha Mancera M.D. 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 The patient was referred for preoper ative HARNESS RIGGER with curative intent. Procedure The patient was [...] Tarsha Mancera M.D. on 12/31 2:52:[address] [place] [address] - - Page 1 of 1 Electronically Signed by Tarsha Mancera MD on 12/31 at 1452 PATIENT NAME: GENO PRASAD 652 2021-12-31 14:13:00-00:00 3911-5423 [facility] [place] of: [address] [address] PATIENT NAME: GENO PRASAD ADMIT DATE: 12/14/21 ACCOUNT NO: [id number] ROOM NO: AGE: 56 REPORT TYPE: ePHYSICIAN ORDER RADIATION ONC SEX: M ADMITTING PHYSICIAN: ATTENDING PHYSICIAN:Tarsha Mancera MD PHYSICIAN ORDER SCAN SHEET Department of Radiation Oncology [facility] Patient: GENO PRASAD : 1965 MR#: [id number] Physician: Tarsha Mancera M.D. Date: 12/31/2021 Referring [...] Unapproved) - 0 PATIENT NAME: GENO PRASAD 7652 ORDERING PHYSICIAN SIGNATURE: Electronically sig darrell by Tarsha Mancera M.D. on 01/03/2022 11:33:11 AM Electronically Signed by Tarsha Mancera MD on 01/03 at 1133 PATIENT NAME: GENO PRASAD 652 2021-12-31 14:12:00-00:00 [id number] [facility] [place] of: [address] [place] [address] PATIENT NAME: GENO PRASAD ADMIT DATE: 12/14/21 ACCOUNT NO: [id number] ROOM NO: AGE: 56 REPORT TYPE: ePROCEDURE NOTE RADIATION ONC SEX: M ADMITTING PHYSICIAN: ATTENDING PHYSICIAN:Tarsha Mancera MD Patient MR#: [id number] PHYSICIAN CT SIMULATION ORDER Date of Service: 12/31/2021 Patient Name: GENO PRASAD Patient : 1965 Patient MR#: [id number] Radiation Oncologist: Tarsha Mancera M.D. DIAGNOSIS AND [...] knee sponge to feet Page 2 of [id number] Electronically Signed and Approved by Tarsha Mancera M.D. 12/31/2021 2:40:03 PM Electronically Signed by Tarsha Mancera MD on 12/31 at 1440 PATIENT NAME: GENO PRASAD 652 2021-12-31 13:45:00-00:00 5576-3391 [facility] [place] of: [address] [address] PATIENT NAME: GENO PRASAD ADMIT DATE: 12/14/21 ACCOUNT NO: [id number] ROOM NO: AGE: 56 REPORT TYPE: ePROGRESS NOTE RADIATION ONC SEX: M ADMITTING PHYSICIAN: ATTENDING PHYSICIAN:Tarsha Mancera MD Patient MR#: [id number] Date of Service: 12/31/2021 Patient Name: GENO PRASAD Patient : 1965 Patient MR#: [id number] Physician: Tarsha Mancera M.D. Follow-Up Note Diagnosis: [...] break. CT simulation today, PATIENT NAME: GENO PARSAD 652 fuse with recent PET and start dagoberto to complete 2 weeks of IMRT. Sincerely, Electronically signed by: Tarsha Mancera M.D. on 12/31 1:52:12 PM Cc: Bro Vargas M.D. [address] [place] [address] - - Page 2 of 2 Electronically Signed by Tarsha Mancera MD on 12/31 at 1352 PATIENT NAME: GENO PRASAD 652 2021-12-30 10:29:00-00:00 [phone] [facility] [place] of: [place] [address] PATIENT NAME: GENO PRASAD ADMIT DATE: 12/14/21 ACCOUNT NO: [id number] ROOM NO: AGE: 56 REPORT TYPE: ePHYSICIAN ORDER RADIATION ONC SEX: M ADMITTING PHYSICIAN: ATTENDING PHYSICIAN:Tarsha Mancera MD PHYSICIAN ORDER SCAN SHEET Department of Radiation Oncology [facility] Patient: GENO PRASAD : 1965 MR#: [id number] Physician: Tarsha Mancera M.D. Date: 12/30/2021 Referring [...] PATIENT NAME: GENO PRASAD 7652 2021-12-14 15:13:00-00:00 [phone] [facility] [place] of: [place] [address] PATIENT NAME: GENO PRASAD ADMIT DATE: 12/14/21 ACCOUNT NO: [id number] ROOM NO: AGE: 56 REPORT TYPE: ePHYSICIAN ORDER RADIATION ONC SEX: M ADMITTING PHYSICIAN: ATTENDING PHYSICIAN:Tarsha Mancera MD PHYSICIAN ORDER SCAN SHEET Department of Radiation Oncology [facility] Patient: GENO PRASAD : 1965 MR#: [id number] Physician: Tarsha Mancera M.D. Date: 12/14/2021 Referring [...] PATIENT NAME: GENO PRASAD 652 2021-12-14 14:59:00-00:00 5102-4251 [facility] [place] of: [address] [address] PATIENT NAME: GENO PRASAD ADMIT DATE: 12/14/21 ACCOUNT NO: [id number] ROOM NO: AGE: 56 REPORT TYPE: ePROGRESS NOTE RADIATION ONC SEX: M ADMITTING PHYSICIAN: ATTENDING PHYSICIAN:Tarsha Mancera MD Patient MR#: [id number] Date of Service: 12/14/2021 Patient Name: GENO PRASAD Patient : 1965 Patient MR#: [id number] Physician: Tarsha Mancera M.D. Follow-Up Note Diagnosis: C20 - malignant neoplasm of rectum, Narrative: MR. PRASAD is a 56 year old who ret urns after nearly 2 month inpatient break from preop c hemoradiation for a locally advanced rectal cancer. He was treated for bowel perforation at [facility] by surgeon Dr. Yolande Fernández in [place]. Mr. Conway has two ostomies no w and is experiencing mucus from the recto-anal stump. He is pain-free and n ot on antibiotics. His inpatient records have not been received to [facility]. IMRT dose: 32.4 Gy received, last dose [...] steps with his surgeon. Records from [facility] pending. Sincerely, Electronically signed by: Tarsha Mancera M.D. on 2021 3:04:56 PM Cc: Shaji Raymundo M.D. [address] [place] [address] - - Page 2 of 2 Electronically Signed by Tarsha Mancera MD on 12/14 at 3634 PATIENT NAME: GENO PRASAD 652 2021-11-08 11:05:00-00:00 3990-5341 [facility] [place] of: [place] [address] PATIENT NAME: GENO PRASDA ADMIT DATE: 10/18/21 ACCOUNT NO: [id number] ROOM NO: AGE: 56 REPORT TYPE: ePHYSICIAN ORDER RADIATION ONC SEX: M ADMITTING PHYSICIAN: ATTENDING PHYSICIAN:Tarsha Mancera MD PHYSICIAN ORDER SCAN SHEET Department of Radiation Oncology [facility] Patient: GENO PRASAD : 1965 MR#: [id number] Physician: Tarsha Mancera M.D. Date: 11/08/2021 Referring [...] 11/08 at 1228 PATIENT NAME: GENO PRASAD 6791 2021-10-14 13:37:00-00:00 [phone] [facility] [place] of: [place] [address] PATIENT NAME: GENO PRASAD ADMIT DATE: ACCOUNT NO: [id number] ROOM NO: AGE: 56 REPORT TYPE: ePROCEDURE NOTE RADIATION ONC SEX: M ADMITTING PHYSICIAN: ATTENDING PHYSICIAN:Tarsha Mancera MD Date of Service: 10/14/2021 Patient Name: GENO PRASAD Patient : 1965 Patient MR#: [id number] Physician: Tarsha Mancera M.D. Treatment Planning Note [...] of treatment is req uested. MODALITY: ___ 3D-26941/04118/78108/93277/57651/84798 ___ IMRT-99008/16464/02182/95428/86009/74069/772 93 ___ SRS/SBRT-51251/69451/62300/35073/65946/99965 Sincerely, Electronically Signed and Approved by Tarsha Mancera M.D. 10/14/2021 1:38:10 PM Electronically Signed by Tarsha Mancera MD on 10/14 at 1338 PATIENT NAME: GENO PRASAD 791 2021-10-14 13:36:00-00:00 5086-7078 [facility] [place] of: [place] [address] PATIENT NAME: GENO PRASAD ADMIT DATE: ACCOUNT NO: [id number] ROOM NO: AGE: 56 REPORT TYPE: ePROCEDURE NOTE RADIATION ONC SEX: M ADMITTING PHYSICIAN: ATTENDING PHYSICIAN:Tarsha Mancera MD Date of Service: 10/14/2021 Patient Name: GENO PRASAD Patient : 1965 Patient MR#: [id number] Physician: Tarsha Mancera M.D. Simulation Note Type [...] PATIENT NAME: GENO PRASAD 791 2021-10-13 13:52:00-00:00 6566-3132 [facility] [place] of: [place] [address] PATIENT NAME: GENO PRASAD ADMIT DATE: ACCOUNT NO: [id number] ROOM NO: AGE: 56 REPORT TYPE: ePROGRESS NOTE RADIATION ONC SEX: M ADMITTING PHYSICIAN: ATTENDING PHYSICIAN:Tarsha Mancera MD Date of Service: 10/13/2021 Patient Name: GENO PRASAD Patient : 1965 Patient MR#: [id number] Physician: Tarsha Mancera M.D. Weekly OTV Note [...] PATIENT NAME: GENO PRASAD 791 2021-10-06 14:39:00-00:00 2864-1653 [facility] [place] of: [place] [address] PATIENT NAME: GENO PRASAD ADMIT DATE: ACCOUNT NO: [id number] ROOM NO: AGE: 56 REPORT TYPE: ePROGRESS NOTE RADIATION ONC SEX: M ADMITTING PHYSICIAN: ATTENDING PHYSICIAN:Tarhsa Mancera MD Date of Service: 10/06/2021 Patient Name: GENO PRASAD Patient : 1965 Patient MR#: [id number] Physician: Kenzie Sosa M.D. Weekly OTV Note [...] on at 1441 PATIENT NAME: GENO PRASAD 6791 2021-10-06 14:39:00-00:00 8505-7017 [facility] [place] of: [place] [address] PATIENT NAME: GENO PRASAD ADMIT DATE: 10/18/21 ACCOUNT NO: [id number] ROOM NO: AGE: 56 REPORT TYPE: ePROGRESS NOTE RADIATION ONC SEX: M ADMITTING PHYSICIAN: ATTENDING PHYSICIAN:Tarsha Mancera MD Patient MR#: [id number] Date of Service: 10/06/2021 Patient Name: GENO PRASAD Patient : 1965 Patient MR#: [id number] Physician: Kenzie Sosa M.D. Weekly OTV Note [...] been reviewed and approved without modification. Sincerely, [address] [place] [address] - - Page 2 of 2 Electronically Signed by Kenzie Sosa MD on at 1441 PATIENT NAME: GENO PRASAD 791 2021-09-22 13:55:00-00:00 8972-5860 [facility] [place] of: [address] [address] PATIENT NAME: GENO PRASAD ADMIT DATE: ACCOUNT NO: [id number] ROOM NO: AGE: 56 REPORT TYPE: ePROGRESS NOTE RADIATION ONC SEX: M ADMITTING PHYSICIAN: ATTENDING PHYSICIAN:Tarsha Mancera MD Date of Service: 09/22/2021 Patient Name: GENO PRASAD Patient : 1965 Patient MR#: [id number] Physician: Tarsha Mancera M.D. Weekly OTV Note [...] PATIENT NAME: GENO PRASAD 791 2021-09-20 10:38:00-00:00 0848-8004 [facility] [place] of: [address] [address] PATIENT NAME: GENO PRASAD ADMIT DATE: ACCOUNT NO: [id number] ROOM NO: AGE: 56 REPORT TYPE: ePROGRESS NOTE RADIATION ONC SEX: M ADMITTING PHYSICIAN: ATTENDING PHYSICIAN:Tarsha Mancera MD Date of Service: 09/20/2021 Patient Name: GENO PRASAD Patient : 1965 Patient MR#: [id number] Physician: Tarsha Mancera M.D. See on Treatment/Block [...] PATIENT NAME: GENO PRASAD 791 2021-09-08 08:45:00-00:00 6343-2997 [facility] [place] of: [address] [address] PATIENT NAME: GENO PRASAD ADMIT DATE: 09/02/21 ACCOUNT NO: [id number] ROOM NO: AGE: 56 REPORT TYPE: ePHYSICIAN ORDER RADIATION ONC SEX: M ADMITTING PHYSICIAN: ATTENDING PHYSICIAN:Tarsha Mancera MD Department of Radiation Oncology [facility] Patient: GENO PRASAD : 1965 MR#: [id number] Physician: Tarsha Mancera M.D. Date: 09/08/2021 Referring Physician: TANIA WALTER Diagnosis: Primary C20 - Malignant neoplasm of r ectum, Diagnosed 08/31/2021 (Active) Stage IIIB, T3, N1, M0 Reason for Visit: ORDERING PHYSICIAN SIGNATURE: Electronically sig darrell by Tarsha Mancera M.D. on 09/13/2021 8:30:45 AM Electronically Signed by Tarsha Mancera MD on 09/13 at 0830 PATIENT NAME: GENO PRASAD 286 2021-09-02 11:08:00-00:00 3507-7803 [facility] [place] of: [address] [address] PATIENT NAME: GENO PRASAD ADMIT DATE: 09/02/21 ACCOUNT NO: [id number] ROOM NO: AGE: 56 REPORT TYPE: ePROCEDURE NOTE RADIATION ONC SEX: M ADMITTING PHYSICIAN: ATTENDING PHYSICIAN:Tarsha Mancera MD Date of Service: 09/02/2021 Patient Name: GENO PRASAD Patient : 1965 Patient MR#: [id number] Physician: Tarsha Mancera M.D. Treatment Planning Note [...] of treatment is req uested. MODALITY: ___ 3D-83445/22293/11474/45449/19347/69221 ___ IMRT-23460/18702/87746/51313/18884/49541/772 93 ___ SRS/SBRT-37386/93292/71883/54296/90244/33172 Sincerely, Electronically Signed and Approved by Tarsha Mancera M.D. 09/02/2021 11:09:08 AM PATIENT NAME: GENO PRASAD 286 Electronically Signed by Tarsha Mancera MD on 09/02 at 1109 PATIENT NAME: GENO PRASAD 286 2021-09-02 11:07:00-00:00 7035-6389 [facility] [place] of: [address] [address] PATIENT NAME: GENO PRASAD ADMIT DATE: 09/02/21 ACCOUNT NO: [id number] ROOM NO: AGE: 56 REPORT TYPE: ePROCEDURE NOTE RADIATION ONC SEX: M ADMITTING PHYSICIAN: ATTENDING PHYSICIAN:Tarsha aMncera MD Date of Service: 09/02/2021 Patient Name: GENO PRASAD Patient : 1965 Patient MR#: [id number] Physician: Tarsha Mancera M.D. Simulation Note Type of Simulation: Complex Purpose: Initial Diagnosis: Rectal Adenocarcinoma C20 - Malignant neoplasm of rectum, Stage IIIB, T3-4, N1, M0 Treatment Intent: Curative History Summary: Staging pelvic CT scan was nota ble for sreedhar-recal randa metastases but no distant metastases. The patien t was referred for preoperative HARNESS RIGGER with curative intent after havi ng 3 [...] PATIENT NAME: GENO PRASAD 286 2021-09-02 10:54:00-00:00 4512-4157 [facility] [place]: [place] [address] PATIENT NAME: GENO PRASAD ADMIT DATE: 09/02/21 ACCOUNT NO: [id number] ROOM NO: AGE: 56 REPORT TYPE: eCONSULTATION RADIATION ONC SEX: M ADMITTING PHYSICIAN: ATTENDING PHYSICIAN:Tarsha Mancera MD Date of Service: 09/02/2021 Patient Name: GENO PRASAD Patient : 1965 Patient MR#: [id number] Physician: Tarsha Mancera M.D. Initial Outpatient Consultation [...] presented with GI symptoms of hematochezia in [facility]. Visits to the ER were wasteful [...] initiated FOLFOX in the neoadjuvant setting. Mr. Prsaad experienced ea se of rectal pain with the chemotherapy and states that he moves a thin but solid stool every day without pain or signs of blood. He has [facility] ysicians to Dr. Vargas and plans to have Dr. Gramajo do his surgery once pr eop HARNESS RIGGER is complete. No evidence of prior PET [...] prn, MiraLa x, powder oral prn and [employer], tablet oral prn. Allergies: No Known Allergies [...] t he need to proceed with concurrent HARNESS RIGGER to fully treat the pelvic lymph nodes [...] PATIENT NAME: GENO PRASAD 286 2021-09-02 10:49:00-00:00 0663-1333 [facility] [place]: [place] [address] PATIENT NAME: GENO PRASAD ADMIT DATE: 09/02/21 ACCOUNT NO: [id number] ROOM NO: AGE: 56 REPORT TYPE: ePHYSICIAN ORDER RADIATION ONC SEX: M ADMITTING PHYSICIAN: ATTENDING PHYSICIAN:Tarsha Mancera MD Department of Radiation Oncology [facility] Patient: GENO PRASAD : 1965 MR#: [id number] Physician: Tarsha Mancera M.D. Date: 09/02/2021 Referring Physician: SELF REFERRED Diagnosis: Primary C20 - Malignant neoplasm of r ectum, Diagnosed 08/31/2021 (Active) Stage IIIB, T3, N1, M0 Reason for Visit: ORDERING PHYSICIAN SIGNATURE: Electronically sig darrell by Tarsha Mancera M.D. on 09/02/2021 11:26:45 AM Electronically Signed by Tarsha Mancera MD on 09/02 at 1126 PATIENT NAME: GENO PRASAD 5286
[2023-05-24] MEDS ORDERED: NA CHLORIDE 0.9% 2,000 ML ONE (18:09)
[2023-05-24 18:37] LABS: Hematocrit 30.7 % (39.6-49.0); Lymphocytes % 12.6 % (15.3-44.8); MCV 76.4 fL (80-100); MPV 6.6 fL (7.6-11.3); Platelets 508 thou/uL (152-406); RBC Red Blood Cell Count 4.03 M/uL (4.33-5.43)
[2023-05-24 18:46] LABS: AST/SGOT 10 U/L (15-37); Albumin 2.6 g/dL (3.4-5.0); Alkaline Phosphatase 61 U/L (45-117); BUN Blood Urea Nitrogen 25 mg/dL (7-18); Bicarbonate 26 mEq/L (21-32); Bilirubin Total 0.4 mg/dL (0.2-1.0); Glomerular Filtration Rate 22 ml/min (=/>90); Glucose Level 98 mg/dL (74-106); Potassium 5.2 mEq/L (3.5-5.1); Protein, Total 7.8 g/dL (6.4-8.2); Sodium Level 135 mEq/L (136-145)
[2023-05-24 18:47] LABS: ALT/SGPT < 10 U/L (16-61)
--- NOTE | 2023-05-24 19:27 | ER ---
Nurse's Notes [facility] Name: Edwin Young Age: 57 yrs Sex: Male : 1965 Arrival Date: 05/24/2023 Time: 16:59 Bed 17 Private MD: Diagnosis: Acute on chronic renal failure;Dehydration;Constipation;Other and unspecified hydronephrosis-acute on chronic Presentation: 05/24 17:10 Chief complaint: Patient states: "I need someone to look at my stoma. It was sticking cm10 out." Pt states that the stoma has gone back into place. Pt also noted to have ileostomy that "has poop coming out and it's not supposed to". Coronavirus screen: Vaccine status: Patient reports receiving the 2nd dose of the covid vaccine. Ebola Screen: Patient denies travel to an Ebola-affected area in the 21 days before illness onset. No symptoms or risks identified at this time. Initial Sepsis Screen: Does the patient meet any 2 criteria? No. Patient's initial sepsis screen is negative. Does the patient have a suspected source of infection? No. Patient's initial sepsis screen is negative. Risk Assessment: Do you want to hurt yourself or someone else? Patient reports no desire to harm self or others. Onset of symptoms was May 24, 2023. 17:10 Method Of Arrival: Ambulatory cm10 17:10 Acuity: JASWINDER 3 cm10 Historical: - Allergies: 17:12 No Known Allergies; cm10 - PMHx: 17:12 CHEMO; CHF; colon cancer; Gout; Hypertension; cm10 - PSHx: 17:12 Colostomy; L nephrostomy; cm10 - Immunization history:: Adult Immunizations unknown. - Social history:: Smoking status: Patient denies any tobacco usage or history of. Screenin:30 [facility] ED Fall Risk Assessment (Adult) History of falling in the last 3 months, kc6 including since admission No falls in past 3 months (0 pts) Confusion or Disorientation No (0 pts) Intoxicated or Sedated No (0 pts) Impaired Gait No (0 pts) Mobility Assist Device Used No (0 pt) Altered Elimination No (0 pt) Score/Fall Risk Level 0 - 2 = Low Risk. Abuse screen: Denies threats or abuse. Denies injuries from another. Nutritional screening: No deficits noted. Tuberculosis screening: No symptoms or risk factors identified. Assessment: 17:30 General: Appears in no apparent distress. uncomfortable, Behavior is calm, cooperative, kc6 appropriate for age. Pain: Complains of pain in abdomen diffusely and left lower quadrant and right upper quadrant, rectum. Neuro: Level of Consciousness is awake, alert, obeys commands, Oriented to person, place, time, situation, Appropriate for age. Cardiovascular: Capillary refill < 3 seconds. Respiratory: Airway is patent Trachea midline Respiratory effort is even, unlabored, Respiratory pattern is regular, symmetrical. GI: Abdomen is flat, non-distended, Colostomy site Ileostomy site is clean and dry. Ostomy appliance is intact. Last BM was May 24, 2023. Bowel sounds present X 4 quads. Abd is soft and non tender X 4 quads. Patient currently denies diarrhea, nausea, vomiting. : No signs and/or symptoms were reported regarding the genitourinary system. nephrostomy tube present to the left lower back. EENT: No signs and/or symptoms were reported regarding the EENT system. Derm: No signs and/or symptoms reported regarding the dermatologic system. Skin is intact, is healthy with good turgor, Skin is pink, warm \\T\\ dry. Musculoskeletal: No signs and/or symptoms reported regarding the musculoskeletal system. Circulation, motion, and sensation intact. Capillary refill < 3 seconds, Range of motion: intact in all extremities. 18:30 Reassessment: Patient appears in no apparent distress at this time. No changes from kc6 previously documented assessment. Patient and/or family updated on plan of care and expected duration. Pain level reassessed. Patient is alert, oriented x 3, equal unlabored respirations, skin warm/dry/pink. Vital Signs: 17:10 BP 155 / 106; Pulse 104; Resp 18; Temp 97.7; Pulse Ox 98% ; Weight 90.72 kg; Height 6 cm10 ft. 2 in. ; Pain 0/10; 20:45 BP 146 / 95; Pulse 97; Resp 17; Pulse Ox 100% on R/A; ll3 22:23 BP 129 / 81; Pulse 87; Resp 17; Pulse Ox 100% on R/A; ll3 17:10 Body Mass Index 25.68 (90.72 kg, 187.96 cm) cm10 17:10 Pain Scale: Adult cm10 ED Course: 17:02 Patient arrived in ED. im 17:12 Triage completed. cm10 17:13 Arm band placed on. cm10 17:20 Cat Chino FNP-C is PHCP. snw 17:20 Terrell Hayden MD is Attending Physician. snw 17:30 Patient has correct armband on for positive identification. Bed in low position. Call kc6 light in reach. Side rails up X2. Adult w/ patient. 17:50 Connie De Jesus RN is Primary Nurse. kc6 18:19 Accessed Port-a-Cath. using accessed w/ #19 Sanchez needle, Clean \\T\\ dry. Dressing intact. ld1 Good blood return. Flushes easily. 18:20 CMP Sent. ld1 18:20 CBC with Diff Sent. ld1 19:00 Report given to Romero Downey RN. kc6 19:26 Keith Walter MD is Hospitalizing Provider. snw 19:56 CT Stone Protocol In Process Unspecified. EDMS 22:31 No provider procedures requiring assistance completed. Patient admitted, IV remains in ll3 place. Administered Medications: 18:20 Drug: NS 0.9% IV 1000 ml Route: IV; Rate: 1 bolus; Site: Port-a-cath; ld1 20:16 Follow up: Response: No adverse reaction; IV Status: Completed infusion; IV Intake: ll3 1000ml 20:15 Drug: NS 0.9% IV 1000 ml Route: IV; Rate: 75 ml/hr; Site: Port-a-cath; ll3 22:53 Follow up: Response: No adverse reaction; IV Status: Infusion continued upon admission ll3 21:01 Drug: Promethazine IVP 12.5 mg Route: IVP; Site: Port-a-cath; ll3 22:53 Follow up: Response: No adverse reaction ll3 21:02 Drug: morphine IVP or IV 4 mg Route: IVP; Infused Over: 4 mins; Site: Port-a-cath; ll3 22:53 Follow up: Response: No adverse reaction ll3 Medication: 22:31 VIS not applicable for this client. ll3 Intake: 20:16 IV: 1000ml; Total: 1000ml. ll3 Outcome: 19:27 Decision to Hospitalize by Provider. snw 22:31 Admitted to Tele accompanied by tech, via stretcher, with chart, Report called to keagan Valera RN 22:31 Condition: stable 22:31 Instructed on the need for admit, Demonstrated understanding of instructions. 22:54 Patient left the ED. keagan Signatures: Dispatcher [employer] EDMS Cat Chino, BARBRA-C FOOD SALES CLERK-Csnw Rhiannon Mullen RN RN ld1 Romero Downey RN RN ll3 Connie De Jesus RN RN kc6 [place] Martin Clarissa, RN RN cm10
--- NOTE | 2023-05-24 19:27 | EDPHYS ---
Physician Documentation [facility] Name: Edwin Young Age: 57 yrs Sex: Male : 1965 Arrival Date: 05/24/2023 Time: 16:59 Bed 17 Private MD: ED Physician Terrell Hayden HPI: 05/24 18:11 This 57 yrs old Black Male presents to ER via Ambulatory with complaints of colostomy snw bag issues. 18:11 Onset: The symptoms/episode began/occurred acutely. snw Historical: - Allergies: 17:12 No Known Allergies; cm10 - PMHx: 17:12 CHEMO; CHF; colon cancer; Gout; Hypertension; cm10 - PSHx: 17:12 Colostomy; L nephrostomy; cm10 - Immunization history:: Adult Immunizations unknown. - Social history:: Smoking status: Patient denies any tobacco usage or history of. ROS: 18:10 Constitutional: Negative for fever, chills, and weight loss, Eyes: Negative for injury, snw pain, redness, and discharge, ENT: Negative for injury, pain, and discharge, Neck: Negative for injury, pain, and swelling, Cardiovascular: Negative for chest pain, palpitations, and edema, Respiratory: Negative for shortness of breath, cough, wheezing, and pleuritic chest pain, Back: Negative for injury and pain, : Negative for injury, bleeding, discharge, and swelling, MS/Extremity: Negative for injury and deformity, Skin: Negative for injury, rash, and discoloration, Neuro: Negative for headache, weakness, numbness, tingling, and seizure, Psych: Negative for depression, anxiety, suicide ideation, homicidal ideation, and hallucinations. 18:10 Abdomen/GI: Positive for stool in ostomy, noted upper ostomy stoma was protruding earlier today but it is now resolved. Exam: 18:05 Constitutional: This is a well developed, well nourished patient who is awake, alert, snw and in no acute distress. Head/Face: Normocephalic, atraumatic. Eyes: Pupils equal round and reactive to light, extra-ocular motions intact. Lids and lashes normal. Conjunctiva and sclera are non-icteric and not injected. Cornea within normal limits. Periorbital areas with no swelling, redness, or edema. ENT: Nares patent. No nasal discharge, no septal abnormalities noted. Tympanic membranes are normal and external auditory canals are clear. Oropharynx with no redness, swelling, or masses, exudates, or evidence of obstruction, uvula midline. Mucous membranes moist. Neck: Trachea midline, no thyromegaly or masses palpated, and no cervical lymphadenopathy. Supple, full range of motion without nuchal rigidity, or vertebral point tenderness. No Meningismus. Chest/axilla: Normal chest wall appearance and motion. Nontender with no deformity. No lesions are appreciated. 18:05 Respiratory: Lungs have equal breath sounds bilaterally, clear to auscultation and percussion. No rales, rhonchi or wheezes noted. No increased work of breathing, no retractions or nasal flaring. Back: No spinal tenderness. No costovertebral tenderness. Full range of motion. 18:05 Skin: Warm, dry with normal turgor. Normal color with no rashes, no lesions, and no evidence of cellulitis. MS/ Extremity: Pulses equal, no cyanosis. Neurovascular intact. Full, normal range of motion. Neuro: Awake and alert, GCS 15, oriented to person, place, time, and situation. Cranial nerves II-XII grossly intact. Motor strength 5/5 in all extremities. Sensory grossly intact. Cerebellar exam normal. Normal gait. Psych: Awake, alert, with orientation to person, place and time. Behavior, mood, and affect are within normal limits. 18:05 Cardiovascular: Rate: tachycardic. 18:05 Abdomen/GI: Inspection: scar(s), are noted in the right upper quadrant, left lower quadrant and abdomen diffusely, Palpation: abdomen is soft and non-tender, right upper ostomy and left lower ostomy (double barrel ?), pt states usually only mucus comes from the left lower ostomy but today there is stool.. Vital Signs: 17:10 BP 155 / 106; Pulse 104; Resp 18; Temp 97.7; Pulse Ox 98% ; Weight 90.72 kg; Height 6 cm10 ft. 2 in. ; Pain 0/10; 20:45 BP 146 / 95; Pulse 97; Resp 17; Pulse Ox 100% on R/A; ll3 22:23 BP 129 / 81; Pulse 87; Resp 17; Pulse Ox 100% on R/A; ll3 17:10 Body Mass Index 25.68 (90.72 kg, 187.96 cm) cm10 17:10 Pain Scale: Adult cm10 MDM: 17:38 Patient medically screened. snw 18:49 Differential diagnosis: non-specific abd pain, constipation, dehydration. snw 18:50 Data reviewed: vital signs, nurses notes. Counseling: I had a detailed discussion with snw the patient and/or guardian regarding: the historical points, exam findings, and any diagnostic results supporting the discharge/admit diagnosis, the presence of at least one elevated blood pressure reading (>120/80) during this emergency department visit, lab results. Special discussion: Based on the history and exam findings, there is no indication for further emergent testing or inpatient evaluation. I discussed with the patient/guardian the need to see the primary care provider for further evaluation of the symptoms. 19:14 Management of patient was discussed with the following: Plant Maintenance Worker: Dr. Fernández, snw discussed history. Pt was supposed to f/u with Dr. Rhys Gramajo, colorectal surgery. If pt has no abdominal catastrophe, hydrate and send outpatient for f/u. Will admit for hydration pending CT results. 19:23 Management of patient was discussed with the following: Hospitalist: Sanna Allison NPc re: snw readmission for acute on chronic renal failure, dehydration, constipation. 05/24 17:55 Order name: CBC with Diff; Complete Time: 18:48 snw 05/24 17:55 Order name: CMP; Complete Time: 18:48 snw 05/24 21:03 Order name: Urinalysis w/ reflexes EDMS 05/24 21:03 Order name: Basic Metabolic Panel EDMS 05/24 21:03 Order name: Basic Metabolic Panel EDMS 05/24 21:03 Order name: Basic Metabolic Panel EDMS 05/24 21:03 Order name: Basic Metabolic Panel EDMS 05/24 21:03 Order name: CBC with Automated Diff EDMS 05/24 21:03 Order name: CBC with Automated Diff EDMS 05/24 21:03 Order name: CBC with Automated Diff EDMS 05/24 21:03 Order name: CBC with Automated Diff EDMS 05/24 21:03 Order name: Magnesium EDMS 05/24 21:03 Order name: Magnesium EDMS 05/24 21:03 Order name: Magnesium EDMS 05/24 21:03 Order name: Magnesium EDDC 05/24 19:04 Order name: CT Stone Protocol; Complete Time: 20:19 snw 05/24 20:56 Order name: CONS Physician Consult [facility] 05/24 21:03 Order name: Heart Healthy [facility] Administered Medications: 18:20 Drug: NS 0.9% IV 1000 ml Route: IV; Rate: 1 bolus; Site: Port-a-cath; ld1 20:16 Follow up: Response: No adverse reaction; IV Status: Completed infusion; IV Intake: ll3 1000ml 20:15 Drug: NS 0.9% IV 1000 ml Route: IV; Rate: 75 ml/hr; Site: Port-a-cath; ll3 22:53 Follow up: Response: No adverse reaction; IV Status: Infusion continued upon admission ll3 21:01 Drug: Promethazine IVP 12.5 mg Route: IVP; Site: Port-a-cath; ll3 22:53 Follow up: Response: No adverse reaction ll3 21:02 Drug: morphine IVP or IV 4 mg Route: IVP; Infused Over: 4 mins; Site: Port-a-cath; ll3 22:53 Follow up: Response: No adverse reaction ll3 Disposition: 20:42 I reviewed the patient's care provided by Advanced Practice Provider \T\ agree w/ the cp3 diagnosis \T\ care plan. I personally saw the pt \T\ performed a substantive portion of the visit, incldng all aspects of the (History/Exam/Medical Decision Making). Disposition Summary: 05/24/23 19:27 Hospitalization Ordered Hospitalization Status: Inpatient Admission snw Provider: Keith Walter Location: [facility] (Inpatient) snw Condition: Stable snw Problem: an acute exacerbation snw Symptoms: have worsened snw Bed/Room Type: Standard snw Room Assignment: 405(05/24/23 21:45) rv1 Diagnosis - Acute on chronic renal failure snw - Dehydration snw - Constipation snw - Other and unspecified hydronephrosis - acute on chronic cp3 Forms: - Medication Reconciliation Form snw - SBAR form snw Signatures: Dispatcher [employer] Cat Anguiano FNP-C PLASTIC TECHNICIAN-Terrell Viera MD MD cp3 Rhiannon Mullen RN RN ld1 Romero Downey RN RN ll3 Sherron Em rv1 Flores Guthrie RN RN cm10 Corrections: (The following items were deleted from the chart) 21:45 19:27 ganesh rv1
--- NOTE | 2023-05-24 20:18 | RAD REPORT ---
EXAM DESCRIPTION: CTStone Protocol - 05/24/2023 7:55 pm CLINICAL HISTORY: stool in ileoconduit;Abd pain COMPARISON: Abdomen Pelvis Wo Contrast dated 12/09/2022; Abdomen Pelvis Wo Contrast dated ; Abdomen Pelvis Wo Contrast dated 10/19/2022; Abdomen Pelvis W/Wo Contrast dated 02/15/2022 TECHNIQUE: CT of the abdomen and pelvis was performed without contrast.. All CT scans are performed using dose optimization technique as appropriate and may include automated exposure control or mA/KV adjustment according to patient size. FINDINGS: Lower chest: Cardiomegaly. Linear scarring in the lung bases . Small bilateral lower lobe pulmonary nodules which may represent metastatic disease but are nonspecific. Liver: Too small to characterize low-density lesions in the liver similar. Biliary: No biliary ductal dilatation. Stomach: No significant focal abnormality. Duodenum: No significant focal abnormality. Pancreas: No significant abnormality. Spleen: No significant abnormality. Adrenal: No suspicious lesions. Kidney/ureter: Increased right-sided hydronephrosis which is moderate. Left-sided nephrostomy tube. N o hydronephrosis. Retroperitoneum: Retroperitoneal lymphadenopathy. This has worsened since 12/09/2022. For example, th ere is a left para-aortic lymph node measuring 14 millimeters. Vascular: No aneurysm. Bowel: Rectal wall thickening which is not well assessed.. Left lower quadrant colostomy with parasto mal hernia. 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 Peritoneum: No ascites or free air. Bladder: Severe bladder wall thickening and stranding. Reproductive: No adnexal masses. Bones: No acute fracture. Partial ankylosis of the sacroiliac joints. Other: Body wall edema. IMPRESSION: Moderate right-sided hydroureteronephrosis. 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 Worsening metastatic disease including increased retroperitoneal lymphadenopathy. Rectal wall thicken ing and loops of bowel in the pelvis not well assessed without oral/IV contrast.
[2023-05-24] MEDS ORDERED: PROMETHAZINE INJ 25 MG/ML AMP ONE (20:56)
[2023-05-24] MEDS ORDERED: MORPHINE 4 MG/ML SYR ONE (20:56)
--- NOTE | 2023-05-24 20:57 | P.HP ---
Certification for Inpatient Patient admitted to: Inpatient With expected LOS: <2 Midnights Patient will require the following post-hospital care: None Practitioner: I am a practitioner with admitting privileges, knowledge of patient current condition, hospital course, and medical plan of care. Services: Services provided to patient in accordance with Admission requirements found in Title 42 Section 412.3 of the Code of Federal Regulations Patient History Date of Service: 05/24/23 Reason for admission: colostomy malfuncion History of Present Illness: History of Present Illness: 57 year old AA male with past medical history of Gout, HTN, Rectal cancer dx 2020, CHF, anemia presents to ER for colostomy malfunction. He reports x 2 ostomomy, nephrosotomy tube. He reports constipation. He denies NVD, wt loss, dizziness, shortness of breath, chest pain, abdominal pain, rectal bleeding or syncope. He reports chronic rectal pain 04/24 from rectal cancer. He reports taking Lortab as needed at home. Plan to admit for constipaion, acute kidney injury,dehydration. Laboratory evaluation mild hyponatremia 135, hyperkalemia 5. 2, BUN 25, creatinine 3.18, unknown baseline, CBC microcytic anemia 9.7, 30.7, platelet counts 504, early left shift 71,. CT of the abdomen pelvis FINDINGS: Lower chest: Cardiomegaly. Linear scarring in the lung bases . Small bilateral lower lobe pulmonary nodules which may represent metastatic disease but are nonspecific, Liver: Too small to characterize low-density lesions in the liver similar. Kidney/ureter: Increased right-sided hydronephrosis which is moderate. Left- sided nephrostomy tube. No hydronephrosis. Retroperitoneum: Retroperitoneal lymphadenopathy. This has worsened since 12/09/2022. For example, there is a left para-aortic lymph node measuring 14 millimeters.Bowel: Rectal wall thickening which is not well assessed.. 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 Peritoneum: No ascites or free air. IMPRESSION: Moderate right-sided hydroureteronephrosis. 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 Worsening metastatic disease including increased retroperitoneal lymphadenopathy. Rectal wall thickening and loops of bowel in the pelvis not well assessed without oral/IV contrast Allergies No Known Allergies Allergy (Verified 05/28/21 17:37) Home Medications: Furosemide [Lasix*] 20 mg PO BIDL #60 tab 05/11/23 carvediloL [Coreg*] 3.125 mg PO BID 6AM 6PM #60 tab 05/11/23 Ferrous Sulfate [Ferrous Sulfate Elixir] 5 ml PO BID #500 ml 05/12/23 - Past Medical/Surgical History Diabetic: No -: Systolic CHF -: HTN -: HLD -: Rectal Cancer Dx January 2021 -: Gout -: JANET (Dr. Hernandez/ Dr. Miranda) -: Chemo-Port placement - Family History Mother -: Heart disease, Hypertension, Other (see notes) Notes: CHF Father -: Diabetes - Social History Alcohol use: No CD- Drugs: No Caffeine use: Yes Review of Systems 10-point ROS is otherwise unremarkable Physical Examination - Physical Exam General: Alert, In no apparent distress, Oriented x3 HEENT: Atraumatic, Normocephalic, PERRLA Neck: Supple, 2+ carotid pulse no bruit Respiratory: Clear to auscultation bilaterally, Normal air movement Cardiovascular: No edema, Normal pulses, Regular rate/rhythm Capillary refill: <2 Seconds Gastrointestinal: Normal bowel sounds, Soft and benign, Other (Bilateral colostomies, nephrostomy tube) Musculoskeletal: No clubbing, No swelling Integumentary: No rashes, No breakdown (A) Neurological: Normal speech, Normal strength at 5/5 x4 extr, Cranial nerves 3-12 intact - Studies Laboratory Data (last 24 hrs) 05/24/23 05/24/23 18:19 18:19 WBC 8.10 Hgb 9.7 L Hct 30.7 L Plt Count 508 H Sodium 135 L Potassium 5.2 H BUN 25 H Creatinine 3.18 H Glucose 98 Total Bilirubin 0.4 AST 10 L ALT < 10 L Alkaline Phosphatase 61 Assessment and Plan - Plan Assessment and plan Constipation Colon cancer with bilateral colostomies 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 Fernández is consulted in the ED recommend IV hydration for acute kidney injury Resume home medications for pain He reports taking Lortab as needed at home. CT of the abdomen pelvis FINDINGS: Lower chest: Cardiomegaly. Linear scarring in the lung bases . Small bilateral lower lobe pulmonary nodules which may represent metastatic disease but are nonspecific, L iver: Too small to characterize low-density lesions in the liver similar. Kidney/ureter: Increased right-sided hydronephrosis which is moderate. Left- sided nephrostomy tube. No hydronephrosis. Retroperitoneum: Retroperitoneal lymphadenopathy. This has worsened since 12/09/2022. For example, there is a left para-aortic lymph node measuring 14 millimeters.Bowel: Rectal wall thickening which is not well assessed.. 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 Peritoneum: No ascites or free air. IMPRESSION: Moderate right-sided hydroureteronephrosis. 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 Worsening metastatic disease including increased retroperitoneal lymphadenopathy. Rectal wall thickening and loops of bowel in the pelvis not well assessed without oral/IV contrast Hydronephrosis with nephrostomy tube Patient is scheduled for follow-up with urology for a second nephrostomy tube Increased right-sided hydronephrosis which is moderate. Left-sided nephrostomy tube. No Acute kidney injury unknown baseline IV fluids, nephrology consult, trend kidney function avoid nephrotoxic medications BUN 25, creatinine 3.18, unknown baseline, Mild hyponatremia Gentle IV fluids mild hyponatremia 135, Hyperkalemia Trend electrolytes replace as needed Repeat potassium in the morning hyperkalemia 5.2, BUN 25, creatinine 3.18, Microcytic anemia Trend H&H CBC microcytic anemia 9.7, 30.7, platelet counts 504, early left shift 71,. The Diet cardiac Full code DVT heparin 88 Discharge Plan: Home Plan to discharge in: 48 Hours - Advance Directives Does patient have a Living Will: No Does patient have a Durable POA for Healthcare: No - Code Status/Comfort Care Code Status: Full Code Physician Review: Patient Assessed, Agree with Above Assessment and Plan Critical Care: No Time Spent Managing Pts Care (In Minutes): 50
[2023-05-24] MEDS ORDERED: ZOLPIDEM TARTRATE 5 MG TABLET PO PRN (21:00)
[2023-05-24] MEDS ORDERED: ONDANSETRON 4 MG/2 ML VIAL IV PRN (21:00)
[2023-05-24] MEDS ORDERED: MAGNESIUM HYDROXIDE 8% 30 ML PO PRN (21:00)
[2023-05-24] MEDS ORDERED: ACETAMINOPHEN 500 MG TAB PO PRN (21:00)
[2023-05-24] MEDS: NA CHLORIDE 0.9% 1,000 ML IV SCH (23:24)
[2023-05-24] MEDS: DOCUSATE NA 100 MG CAP PO SCH (23:24)
[2023-05-25] MEDS ORDERED: MORPHINE 4 MG/ML SYR IV ONE (00:13)
[2023-05-25 00:43] VITALS: O2SAT 97; BMI 24.0
[2023-05-25] MEDS: HYDROCODONE/APAP 10/325 TAB PO PRN ×2 (05:53→12:50)
[2023-05-25 06:43] LABS: Absolute Lymphocytes (CBC) 1.3 K/uL (0.7-4.9); Hematocrit 27.3 % (39.6-49.0); Lymphocytes % 17.9 % (15.3-44.8); MCV 76.1 fL (80-100); MPV 6.7 fL (7.6-11.3); Platelets 496 thou/uL (152-406); RBC Red Blood Cell Count 3.58 M/uL (4.33-5.43)
[2023-05-25 07:01] LABS: Magnesium 1.8 mg/dL (1.6-2.4); Phosphorus 2.1 mg/dL (2.5-4.9); Potassium 4.8 mEq/L (3.5-5.1); Uric Acid 8.2 mg/dL (3.5-7.2)
[2023-05-25 07:44] LABS: Anisocytosis 1+; Blood Morphology Comment NOTED (NOT SEEN); Hypochromasia 1+; Platelet Estimate INCR
[2023-05-25] MEDS: DOCUSATE NA 100 MG CAP PO SCH (08:03)
[2023-05-25] MEDS ORDERED: HEPARIN 5000 UNIT/ML 1 ML VIAL SQ SCH (09:00)
[2023-05-25] MEDS: NA CHLORIDE 0.9% 1,000 ML IV SCH (10:20)
[2023-05-25 10:48] LABS: Specific Gravity 1.014 (1.005-1.030); Urine Bacteria <20 /HPF (<20); Urine Bilirubin NEGATIVE (Negative); Urine Blood Negative (Negative); Urine Clarity Extremely Turbid (Clear); Urine Color Light-Yellow (Yellow); Urine Glucose NEGATIVE (Negative); Urine Mucus Slight /HPF (None Seen); Urine Protein TRACE (Negative); Urine RBC <5 /HPF (None Seen); Urine Urobilinogen Normal (Normal); Urine WBC Clump Rare /HPF (None Seen); Urine pH 6.5 (5.0-7.0)
--- NOTE | 2023-05-25 11:07 | P.CNS ---
Date of Consult: 05/25/23 Reason for Consult: JANET/ CKD Requesting Physician: jerome billings Chief Complaint: Colostomy malfuncion History of Present Illness: 57 year old AA male with past medical history of Gout, HTN, Rectal cancer dx 2020, CHF, anemia presents to ER for colostomy malfunction. He reports x 2 ostomomy, nephrosotomy tube. He reports constipation. He denies NVD, wt loss, dizziness, shortness of breath, chest pain, abdominal pain, rectal bleeding or syncope. He reports chronic rectal pain 04/24 from rectal cancer. He reports taking Lortab as needed at home. Plan to admit for constipaion, acute kidney injury,dehydration. Laboratory evaluation mild hyponatremia 135, hyperkalemia 5.2, BUN 25, creatinine 3.18, unknown baseline, CBC microcytic anemia 9.7, 30.7, platelet counts 504, early left shift 71,. CT of the abdomen pelvis FINDINGS: Lower chest: Cardiomegaly. Linear scarring in the lung bases . Small bilateral lower lobe pulmonary nodules which may represent metastatic disease but are nonspecific, Liver: Too small to characterize low-density lesions in the liver similar. Kidney/ureter: Increased right-sided hydronephrosis which is moderate. Left- sided nephrostomy tube. No hydronephrosis. Retroperitoneum: Retroperitoneal lymphadenopathy. This has worsened since 12/09/2022. For example, there is a left para-aortic lymph node measuring 14 millimeters.Bowel: Rectal wall thickening which is not well assessed.. 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 Peritoneum: No ascites or free air. IMPRESSION: Moderate right-sided hydroureteronephrosis. 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 Worsening metastatic disease including increased retroperitoneal lymphadenopathy. Rectal wall thickening and loops of bowel in the pelvis not well assessed without oral/IV contrast 18:11 This 57 yrs old Black Male presents to ER via Ambulatory with complaints of colostomy snw bag issues. 18:11 Onset: The symptoms/episode began/occurred acutely. Allergies No Known Allergies Allergy (Verified 05/24/23 23:26) Home medications list reviewed: Yes Home Medications: carvediloL [Coreg*] 3.125 mg PO BID 6AM 6PM #60 tab 05/11/23 Hydrocodone/Acetaminophen [Hydrocodone-Acetamin 10-325 mg] 1 each PO Q6HP PRN 05/24/23 - Past Medical/Surgical History Diabetic: No -: Systolic CHF -: HTN -: HLD -: Rectal Cancer Dx January 2021 -: Gout -: JANET (Dr. Hernandez/ Dr. Miranda) -: Chemo-Port placement - Family History Mother Medical History: Heart disease, Hypertension, Other (see notes) Notes: CHF Father Medical History: Diabetes - Social History Smoking Status: Never smoker Alcohol use: No CD- Drugs: No Caffeine use: Yes Place of Residence: Home Review of Systems 10-point ROS is otherwise unremarkable General: Weakness Physical Examination Temp Pulse Resp BP Pulse Ox 97.8 F 88 16 111/70 97 05/25/23 08:00 05/25/23 08:00 05/25/23 08:00 05/25/23 08:00 05/25/23 08:00 General: In no apparent distress, Oriented x3, Cooperative HEENT: Atraumatic Neck: Supple Respiratory: Normal air movement Cardiovascular: No edema, Regular rate/rhythm Gastrointestinal: Non-distended, No guarding Musculoskeletal: No clubbing, No contractures Integumentary: No rashes, No cyanosis Neurological: Normal speech Laboratory Data (last 24 hrs) 05/24/23 05/24/23 18:19 18:19 WBC 8.10 Hgb 9.7 L Hct 30.7 L Plt Count 508 H Sodium 135 L Potassium 5.2 H BUN 25 H Creatinine 3.18 H Glucose 98 Total Bilirubin 0.4 AST 10 L ALT < 10 L Alkaline Phosphatase 61 Imagings Data: EXAM DESCRIPTION: [facility] Protocol - 05/24/2023 7:55 pm CLINICAL HISTORY: stool in ileoconduit;Abd pain COMPARISON: Abdomen Pelvis Wo Contrast dated 12/09/2022; Abdomen Pelvis Wo Contrast dated 11/16/2022; Abdomen Pelvis Wo Contrast dated 10/19/2022; Abdomen Pelvis W/Wo Contrast dated 02/15/2022 TECHNIQUE: CT of the abdomen and pelvis was performed without contrast.. All CT scans are performed using dose optimization technique as appropriate and may include automated exposure control or mA/KV adjustment according to patient size. FINDINGS: Lower chest: Cardiomegaly. Linear scarring in the lung bases . Small bilateral lower lobe pulmonary nodules which may represent metastatic disease but are nonspecific. Liver: Too small to characterize low-density lesions in the liver similar. Biliary: No biliary ductal dilatation. Stomach: No significant focal abnormality. Duodenum: No significant focal abnormality. Pancreas: No significant abnormality. Spleen: No significant abnormality. Adrenal: No suspicious lesions. Kidney/ureter: Increased right-sided hydronephrosis which is moderate. Left- sided nephrostomy tube. No hydronephrosis. Retroperitoneum: Retroperitoneal lymphadenopathy. This has worsened since 12/09/2022. For example, there is a left para-aortic lymph node measuring 14 millimeters. Vascular: No aneurysm. Bowel: Rectal wall thickening which is not well assessed.. 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 Peritoneum: No ascites or free air. Bladder: Severe bladder wall thickening and stranding. Reproductive: No adnexal masses. Bones: No acute fracture. Partial ankylosis of the sacroiliac joints. Other: Body wall edema. IMPRESSION: Moderate right-sided hydroureteronephrosis. 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 Worsening metastatic disease including increased retroperitoneal lymphadenopathy. Rectal wall thickening and loops of bowel in the pelvis not well assessed without oral/IV contrast. LEFT VENTRICULAR WALL MOTION: MODERATE GLOBAL HYPOKINESIS DOPPLER/COLOR FLOW: SEE BELOW COMMENTS: 1. MODERATELY DEPRESSED LEFT VENTRICULAR EJECTION FRACTION 35-40% 2. MODERATE GLOBAL HYPOKINESIS 3. MODERATE MITRAL REGURGITATION 4. LEFT ATRIAL ENLARGEMENT 5. MILD AORTIC INSUFFICIENCY 6. MILD TRICUSPID REGURGITATION 7. SEVERE DIASTOLIC DYSFUNCTION Conclusions/Impression: Stage II JANET likely due to hypovolemia complicated by obstruction CKD III Left nephrostomy status Right sided hydronephrosis -No NSAIDs -Continue IVF with NS -Urology has plans to place a right nephrostomy Hyperkalemia -Renal diet -Continue IVF Hypophosphatemia -Replete as ordered Hyperuricemia Systolic Diastolic CHF, chronic -Daily weight Hypoalbuminemia -Recommend protein supplementation Anemia in chronic illness -Monitor H&H Case reviewed with Dr. Billings Thank you kindly for the consultation
[2023-05-25] MEDS ORDERED: POTASS/SODIUM PHOSPHATE 1 PKT POWD.PACK PO SCH (12:00)
[2023-05-25] MEDS ORDERED: MORPHINE 2 MG/ML SYR IV PRN (12:28)
--- NOTE | 2023-05-25 12:47 | P.DS ---
Admission Date: 05/24/23 Discharge Date: 05/25/23 Disposition: ROUTINE DISCHARGE Discharge Condition: FAIR Reason for Admission: Colostomy malfuncion Brief History of Present Illness: 57 year old AA male with past medical history of Gout, HTN, Rectal cancer dx 2020, CHF, anemia presents to ER for colostomy malfunction. He reports x 2 colostomy, left nephrostomy tube. He reports constipation. He denies NVD, wt loss, dizziness, shortness of breath, chest pain, abdominal pain, rectal bleeding or syncope. He reports chronic rectal pain 04/24 from rectal cancer. He reports taking Lortab as needed at home. Plan to admit for constipaion, acute kidney injury,dehydration. Laboratory evaluation mild hyponatremia 135, hyperkalemia 5.2, BUN 25, creatinine 3.18, unknown baseline, CBC microcytic anemia 9.7, 30.7, platelet counts 504, early left shift 71,. CT of the abdomen pelvis FINDINGS: Lower chest: Cardiomegaly. Linear scarring in the lung bases . Small bilateral lower lobe pulmonary nodules which may represent metastatic disease but are nonspecific, Liver: Too small to characterize low-density lesions in the liver similar. Kidney/ureter: Increased right-sided hydronephrosis which is moderate. Left- sided nephrostomy tube. No hydronephrosis. Retroperitoneum: Retroperitoneal lymphadenopathy. This has worsened since 12/09/2022. For example, there is a left para-aortic lymph node measuring 14 millimeters.Bowel: Rectal wa ll thickening which is not well assessed.. 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 Peritoneum: No ascites or free air. IMPRESSION: Moderate right-sided hydroureteronephrosis. 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 Worsening metastatic disease including increased retroperitoneal lymphadenopathy. Rectal wall thickening and loops of bowel in the pelvis not well assessed without oral/IV contrast Patient was hospitalized for further management. 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 Patient was hydrated with IV fluid to treat JANET. His renal function improved with IV hydration. He was seen in consultation by nephrology Dr. Hernandez who recommended discharge as soon as possible so patient can follow-up with his urologist for right nephrostomy tube placement for hydronephrosis. General surgery Dr. Fernández was contacted to evaluate patient's colostomy. Dr. Fernández stated patient has a complex abdominal problem with multiple colostomy, fistula, left nephrostomy tube and currently in need of right nephrostomy tube for right hydronephrosis as well as progressive intra-abdominal malignancy. He recommen ded patient to follow-up with his colorectal surgeon regarding his colostomy. Patient is therefore discharge and informed to follow-up with his colorectal surgeon. He also stated has an appointment with a urologist for right nephrostomy tube placement next week. Vital Signs/Physical Exam: Temp Pulse Resp BP Pulse Ox 97.0 F 88 16 114/72 98 05/25/23 12:00 05/25/23 12:00 05/25/23 12:00 05/25/23 12:00 05/25/23 12:00 General: Alert, In no apparent distress, Oriented x3 HEENT: Mucous membr. moist/pink Neck: JVD not distended Respiratory: Clear to auscultation bilaterally, Normal air movement Gastrointestinal: Normal bowel sounds, Other (Bilateral colostomy) Musculoskeletal: No swelling Neurological: Normal strength at 5/5 x4 extr Laboratory Data at Discharge: WBC 7.10 thou/uL (4.3-10.9) 05/25/23 05:59 Hgb 8.8 g/dL (13.6-17.9) L D 05/25/23 05:59 Hct 27.3 % (39.6-49.0) L 05/25/23 05:59 Plt Count 496 thou/uL (152-406) H 05/25/23 05:59 Sodium 135 mEq/L (136-145) L 05/25/23 05:59 Potassium 4.8 mEq/L (3.5-5.1) 05/25/23 05:59 BUN 23 mg/dL (7-18) H 05/25/23 05:59 Creatinine 2.80 mg/dL (0.70-1.30) H 05/25/23 05:59 Glucose 84 mg/dL (74-106) 05/25/23 05:59 Uric Acid 8.2 mg/dL (3.5-7.2) H 05/25/23 05:59 Phosphorus 2.1 mg/dL (2.5-4.9) L 05/25/23 05:59 Magnesium 1.8 mg/dL (1.6-2.4) 05/25/23 05:59 Total Bilirubin 0.4 mg/dL (0.2-1.0) 05/24/23 18:19 AST 10 U/L (15-37) L 05/24/23 18:19 ALT < 10 U/L (16-61) L 05/24/23 18:19 Alkaline Phosphatase 61 U/L (45-117) 05/24/23 18:19 Home Medications: carvediloL [Coreg*] 3.125 mg PO BID 6AM 6PM #60 tab 05/11/23 Hydrocodone/Acetaminophen [Hydrocodone-Acetamin 10-325 mg] 1 each PO Q6HP PRN 05/24/23 Diet: AHA Activity: Ad bj Time spent managing pt's care (in minutes): 28
[2023-05-25 15:56] VITALS: BP 109/71; TEMP 97.4
[2023-05-25] MEDS ORDERED: HEPARIN 500 UNIT/5 ML SYR IV PRN (16:55)
== END 2023-05-25 17:16 | disposition home or self-care (01) ==
LOC: ER 16:59 → 4TH 20:52 → INTOOBSV 20:52
PROVIDERS: ADMIT Internal Medicine; ATTEND Internal Medicine
DX: Z43.3 Encounter for attention to colostomy (principal); N17.9 Acute kidney failure, unspecified; K59.00 Constipation, unspecified; I10 Essential (primary) hypertension; C18.9 Malignant neoplasm of colon, unspecified; I51.7 Cardiomegaly; N13.30 Unspecified hydronephrosis; E87.1 Hypo-osmolality and hyponatremia; E87.5 Hyperkalemia; D64.9 Anemia, unspecified; K63.2 Fistula of intestine; I50.9 Heart failure, unspecified; E86.0 Dehydration; R91.8 Other nonspecific abnormal finding of lung field; M10.9 Gout, unspecified; K62.89 Other specified diseases of anus and rectum
CPT/HCPCS: 96361; 87088; 85025 ×2; 81001; 87086; 80048; 36415; 83735; 84100; 84550; 80053; 76377; 74176; 96375; 96374; 99285; J2550; J1644; J2270; J1642; J7030 ×3

== ENCOUNTER 2023-05-27 11:01 | Emergency (ER) | payer OTHER ==
--- OUTSIDE RECORDS SUMMARY | 2023-05-27 11:07 | XMS REPORT | Continuity of Care Document ---
:1965 Author Organization [facility] t Address [address] [facility] [address] [place] [id number] Care Team Providers Name Role Phone SHERYL CHARLES Primary Care Physician Unavailable Tarsha Mancera Attending Clinician Unavailable Lalo Ruiz Attending Clinician Unavailable Nickell_K Attending Clinician Unavailable Clayton Dale MD Attending Clinician Eladio Stafford MD Attending Clinician Shanika Fritz MD Attending Clinician yK Sibley Attending Clinician SHERYL CHARLES Attending Clinician Unavailable SHERYL CHARLES Attending Clinician Unavailable Seymour Sales Attending Clinician Unavailable NARDA_MIGUEL_Nader_Osorio Attending Clinician Unavailable Lesterrer Parviz PARMAR Attending Clinician Nils Cowan MD Attending Clinician Rhys Gramajo MD Attending Clinician [phone] DERRICK HOLT Attending Clinician Unavailable JENNY [...] Number Effective Date Expiration Date S ource [facility] - [id number] [place] RE[place]AC[place] - [place] [facility] STAR [employer]US [id number] 2022 00:00:00 [facility] [id number] (HMO) Problems Condition Condition Condition Status Onset Resolution Last Treating Co mments Source Name Details Category Date Date Treatment Clinician Date Pyelonephr Pyelonephr Disease Active M ethodi itis itis 6-07 [facility] 00:00: Hospita 00 l Diarrhea Diarrhea [...] Stop Date Quantity Comments Source History SDOH [facility] History [facility] History of Social 2023-03-28 2023-03-[address] function 00:00:00 00:00:00 Hospital Alcohol intake 2023-03-22 2023-03-22 Lifetime [facility] 00:00:00 00:00:00 non-drinker Hospital (finding) Exposure to 2022-12-05 2022-12-15 Not sure University SARS-CoV-2 (event) 00:00:00 15:34:00 [facility] Tobacco use and 2021-08-01 2021-08-01 Smokeless [facility] exposure 00:00:00 00:00:00 tobacco non-user Hospital History SDOH 2021-08-01 2021-08-01 1 [facility] Alcohol Frequency 00:00:00 [...] caity 05 by mouth l daily. carvediloL 0 Yes 25mg QD Take 1 Metho di (COREG) 25 6-14 tablet (25 st MG tablet 19:03: mg total) Hos caity 05 by mouth l daily. carvediloL 0 Yes 25mg QD Take 1 Metho di [...] daily for 14 days. ertapenem 1 2022-0 2023- No 1g Q24H Infuse 1 g Methodi g in sodium 03-[address] chloride 00:00: 04:59 venous Hospit a 0.9 % MBP 00 :00 catheter l 50 mL IVPB daily for 14 days. ertapenem 1 2022-0 2023- No 1g Q24H Infuse 1 g Methodi g in sodium 03-[address] chloride 00:00: 04:59 venous Hospit a 0.9 % MBP 00 :00 catheter l 50 mL IVPB daily for 14 days. ertapenem 1 2022-0 2023- No 1g Q24H Infuse 1 g Methodi g in sodium 03-[address] chloride 00:00: 04:59 venous Hospit a 0.9 % MBP 00 :00 catheter l 50 mL IVPB daily for 14 days. ertapenem 1 2022-0 202- No 1g Q24H Infuse 1 g Methodi [...] caity 32 by mouth l daily. furosemide 3-0 Yes 40mg QD Take 1 [...] times a day for 14 days. carvedilol 2022-0 2022- No 20mg Take 1 Univ ers 20 mg 24 hr 12-15-02 capsule by i ty of capsule 16:06: 00:00 mouth in [place] 28 :00 the Medical morning. Branch carvedilol 2022-0 2022- No 20mg Take 1 Univ ers 20 mg 24 hr 12-15- capsule by i ty of capsule 16:06: 00:00 mouth in [place] 28 :00 the Medical morning. Branch carvedilol 2022-0 Yes [id number] 20mg Take 1 U nivers 20 mg 24 hr 3- capsule by it y of capsule 00:00: mouth in [place] 00 the Medical morning. Branch furosemide 2023-0 Yes [id number] 40mg Take 1 U nivers 40 mg 3-02 tablet by ity of tablet 00:00: mouth in [place] 00 the Medical morning. Branch carvedilol 2023-0 Yes [id number] 20mg Take 1 U nivers 20 mg 24 hr 3-02 capsule by it y of capsule 00:00: mouth in [place] 00 the Medical morning. Branch furosemide 2023-0 Yes [id number] 40mg Take 1 U nivers 40 mg 3-02 tablet by ity of tablet 00:00: mouth in [place] 00 the Medical morning. Branch carvedilol 2023-0 Yes [id number] 20mg Take 1 U nivers 20 mg 24 hr 3-02 capsule by it y of capsule 00:00: mouth in [place] 00 the Medical morning. Branch furosemide 3-0 Yes [id number] 40mg Take 1 U nivers 40 mg 3-02 tablet by ity of tablet 00:00: mouth in [place] the Medical morning. Branch carvedilol 3-0 Yes [id number] 20mg Take 1 U nivers 20 mg 24 hr 3-02 capsule by it y of capsule 00:00: mouth in [place] the Medical morning. Branch furosemide 3-0 Yes [id number] 40mg Take 1 U nivers 40 mg 3-02 tablet by ity of tablet 00:00: mouth in [place] the Medical morning. Branch amoxicillin 3-0 Yes 875mg Take 1 Uni vers 875 mg 2-24 tablet by ity of tablet 00:00: mouth [place] 00 every 12 Medical (twelve) Branch hours. amoxicillin 2023-0 Yes 875mg Take 1 Uni vers 875 mg 2-24 tablet by ity of tablet 00:00: mouth [place] 00 every 12 Medical (twelve) Branch hours. amoxicillin 2023-0 Yes 875mg Take 1 Uni vers 875 mg 2-24 tablet by ity of tablet 00:00: mouth [place] 00 every 12 Medical (twelve) Branch hours. amoxicillin 2023-0 Yes 875mg Take 1 Uni vers 875 mg 2-24 tablet by ity of tablet 00:00: mouth [place] 00 every 12 Medical (twelve) Branch hours. [...] Q.5D Take 1 Meth cordelia CR (COREG 1-11-[address] CR) 20 MG 15:19: 00:00 [...] times a day for 30 days. carvediloL 3-0 3- No 12.5mg Q.5D Take 1 Me thodi (COREG) 11-02-[address] 12.5 MG 00:00: 05:59 (12.5 mg Hospi ta tablet 00 :00 total) by l mouth 2 (two) times a day for 30 days. carvediloL 3-0 2023- No 12.5mg Q.5D Take [...] ity of tablet 00:00: 00:00 mouth in [place] 00 :00 the Medical morning. Branch furosemide 2021-2022- No 40mg Take 1 Univ ers 40 mg 12-07 tablet by ity of tablet 00:00: 00:00 mouth in [place] 00 :00 the Medical morning. Branch No [...] 21:45:00 126 mm[Hg] Univer sity of pressure [facility] Diastolic blood 2022-12-15 21:45:00 86 mm[Hg] [facility] 2022-12-15 21:45:00 104 /min General acute hospital Body temperature 2022-12-15 21:45:00 35.94 [facility] height 2022-12-15 21:45:00 188 cm General acute hospital Body weight 2022-12-15 21:45:00 106.595 kg General acute hospital BMI 2022-12-15 21:45:00 30.17 kg/m2 General acute hospital Oxygen saturation in 2022-12-15 21:45:00 97 /min University Arterial blood by [facility] Pulse oximetry Branch Systolic blood 2023-03-28 21:07:06 122 mm[Hg] [facility] Hospital pressure Diastolic blood 2023-03-28 21:07:06 78 mm[Hg] [facility] Heart rate 2023-03-28 21:07:06 84 /min [facility] Body temperature 2023-03-28 21:07:06 36.17 Mary Carmen [facility] Respiratory rate 2023-03-28 21:07:06 18 /min [facility] Oxygen saturation in 2023-03-28 21:07:06 97 /min [facility] Arterial blood by Pulse oximetry Body height 2023-03-23 00:01:00 188 cm [facility] Body weight 2023-03-23 00:01:00 113.399 kg [facility] BMI 2023-03-23 00:01:00 32.10 kg/m2 [facility] Systolic blood 2022-11-02 13:50:01 147 mm[Hg] Method [facility] pressure Diastolic blood 2022-11-02 13:50:01 87 mm[Hg] [facility] pressure Heart rate 2022-11-02 13:50:01 90 /min [facility] Body temperature 2022-11-02 13:50:01 36 Mary Carmen [facility] Respiratory rate 2022-11-02 13:50:01 18 /min [facility] Oxygen saturation in 2022-11-02 13:50:01 99 /min [facility] Arterial blood by Pulse oximetry Body height 2022-10-25 11:00:00 188 cm [facility] Body weight 2022-10-25 11:00:00 113.399 kg [facility] BMI 2022-10-25 11:00:00 32.10 kg/m2 [facility] Procedures Procedure Date / Time Performing Clinician Source Performed PICC INSERTION REQUEST 2023-03-28 14:05:23 Justa Winter [facility] CBC WITH PLATELET AND 2023-03-28 10:15:00 [facility] DIFFERENTIAL BASIC METABOLIC PANEL 2023-03-28 10:15:00 [facility] ESTIMATED GFR 2023-03-28 10:15:00 [facility] CBC WITH PLATELET AND 2023-03-27 09:08:00 [facility] DIFFERENTIAL BASIC METABOLIC PANEL 2023-03-27 09:08:00 [facility] VANCOMYCIN LEVEL, RANDOM 2023-03-27 09:08:00 [facility] ESTIMATED GFR 2023-03-27 09:08:00 [facility] CBC WITH PLATELET AND 2023-03-26 09:53:00 [facility] DIFFERENTIAL BASIC METABOLIC PANEL 2023-03-26 09:53:00 [facility] ESTIMATED GFR 2023-03-26 09:53:00 [facility] CBC WITH PLATELET AND 2023-03-25 09:05:00 [facility] DIFFERENTIAL BASIC METABOLIC PANEL 2023-03-25 09:05:00 [facility] ESTIMATED GFR 2023-03-25 09:05:00 [facility] MANUAL DIFFERENTIAL 2023-03-25 09:05:00 [facility] CBC WITH PLATELET AND 2023-03-24 16:23:00 Adelita Rich [facility] DIFFERENTIAL BASIC METABOLIC PANEL 2023-03-24 16:23:00 [facility] EST[facility] GFR 2023-03-24 16:23:00 Adelita [facility] TRANSFUSE RED BLOOD CELLS 2023-03-23 16:26:00 Jinny Stafford [facility] TRANSFUSE RED BLOOD CELLS 2023-03-23 12:38:00 [facility] TYPE AND SCREEN 2023-03-23 10:11:00 [facility] PREPARE RBC 2023-03-23 10:11:00 [facility] CBC WITH PLATELET AND 2023-03-23 09:33:[address] [facility] DIFFERENTIAL COMPREHENSIVE METABOLIC 2023-03-23 09:33:00 [facility] PANEL ESTIMATED GFR 2023-03-23 09:33:00 [facility] MANUAL DIFFERENTIAL 2023-03-23 09:33:00 [facility] ESTIMATED GFR 2023-03-23 08:45:00 [facility] TROPONIN T 2023-03-23 03:03:00 [facility] spital LACTIC ACID LEVEL, SEPSIS - 2023-03-23 03:03:00 [facility] NOW AND REPEAT 2X EVERY 3 HOURS CREATININE LEVEL, URINE, 2023-03-23 01:44:00 [facility] RANDOM SODIUM LEVEL, URINE, RANDOM 2023-03-23 01:44:00 [facility] PROTEIN, URINE, RANDOM 2023-03-23 01:44:00 [facility] URINE CULTURE 2023-03-23 00:49:00 [facility] spital URINALYSIS SCREEN AND 2023-03-23 00:24:00 [facility] MICROSCOPY, WITH REFLEX TO CULTURE LACTIC ACID LEVEL, SEPSIS - 2023-03-22 23:45:00 [facility] NOW AND REPEAT 2X EVERY 3 HOURS COMPREHENSIVE METABOLIC 2023-03-22 23:27:00 [facility] PANEL TROPONIN T 2023-03-22 23:27:00 [facility] spital CREATINE KINASE, TOTAL 2023-03-22 23:27:00 [facility] (CPK) ESTIMATED GFR 2023-03-22 23:27:00 [facility] spital VENOUS BLOOD GAS 2023-03-22 22:41:00 [facility] BLOOD CULTURE, AEROBIC & 2023-03-22 22:29:00 [facility] CBC WITH PLATELET AND 2023-03-22 22:27:00 [facility] DIFFERENTIAL LACTIC ACID LEVEL, SEPSIS - 2023-03-22 22:27:00 [facility] NOW AND REPEAT 2X EVERY 3 HOURS MANUAL DIFFERENTIAL 2023-03-22 22:27:[address] [facility] XR CHEST 1 VW PORTABLE 2023-03-22 22:00:04 [facility] ECG 12-LEAD 2023-03-22 21:26:46 Clayton Dale spital ESTIMATED GFR 2023-03-22 21:13:00 [facility] ABDOMEN PELVIS WO 2023-03-22 21:10:07 [facility] CONTRAST UT CRITICAL CARE 2023-03-22 20:41:38 [facility] ospital ILL/INJURED PATIENT INIT 30-74 MIN ECG ED PRELIMINARY 2023-03-22 20:41:38 [facility] INTERPRETATION CBC WITH PLATELET AND 2022-11-02 11:12:00 [facility] BASIC METABOLIC PANEL 2022-11-02 11:12:00 [facility] ESTIM[facility]FR 2022-11-02 11:12:00 [facility] CBC WITH PLATELET AND 2022-11-01 11:35:00 [facility] DIFFERENTIAL BASIC METABOLIC PANEL 2022-11-01 11:35:00 [facility] EST[facility]FR 2022-11-01 11:35:00 [facility] PROTEIN, URINE, RANDOM 2022-10-31 19:03:00 [facility] ALBUMIN WITH CREATININE AND 2022-10-31 19:03:00 [facility] RATIO, RANDOM URINE CREATININE LEVEL, URINE, 2022-10-31 19:03:00 [facility] RANDOM CBC WITH PLATELET AND 2022-10-31 12:10:00 Camryn, [facility] DIFFERENTIAL BASIC METABOLIC PANEL 2022-10-31 12:10:00 Camryn, [facility] ESTIMATED GFR 2022-10-31 12:10:00 Camryn, [facility] CBC WITH PLATELET AND 2022-10-30 11:30:00 Camryn, [facility] DIFFERENTIAL BASIC METABOLIC PANEL 2022-10-30 11:30:00 Camryn, [facility] ESTIMATED GFR 2022-10-30 11:30:00 Camryn greer [facility] spital CBC WITH PLATELET AND 2022-10-29 11:45:00 Camryn, [facility] DIFFERENTIAL BASIC METABOLIC PANEL 2022-10-29 11:30:00 Camryn, [facility] ESTIMATED GFR 2022-10-29 11:30:00 Camryn greer [facility] IR LEFT NEPHROSTOMY INITIAL 2022-10-28 23:27:00 [facility]ir S[facility] RIGHT NEPHROSTOGRAM NEW 2022-10-28 23:27:00 Samir Saha [facility] ACCESS CBC WITH PLATELET AND 2022-10-28 11:29:[address] [facility] DIFFERENTIAL COMPREHENSIVE METABOLIC 2022-10-28 11:29:00 [facility] PANEL ESTIMATED GFR 2022-10-28 11:29:00 Camryn greer [facility] spital CBC WITH PLATELET AND 2022-10-27 12:38:00 [facility] DIFFERENTIAL COMPREHENSIVE METABOLIC 2022-10-27 12:38:00 Camryn, [facility] PANEL BASIC METABOLIC PANEL 2022-10-27 12:38:00 [facility] ESTIMATED GFR 2022-10-27 12:38:00 [facility] MRI PELVIS W WO CONTRAST 2022-10-26 16:51:00 Derrick Holt [facility] MRI ABDOMEN W WO CONTRAST 2022-10-26 16:40:00 Derrick Holt [facility] COVID-19 QUALITATIVE RT-PCR 2022-10-26 13:42:00 Rehrer, [facility] CBC WITH PLATELET AND 2022-10-26 09:30:00 Camryn, [facility] DIFFERENTIAL COMPREHENSIVE METABOLIC 2022-10-26 09:30:00 Camryn, [facility] PANEL PHOSPHORUS LEVEL 2022-10-26 09:30:00 [facility] CARCINOEMBRYONIC ANTIGEN 2022-10-26 09:30:00 chen [facility] (CEA) FERRITIN LEVEL 2022-10-26 09:30:00 chen [facility] spital PROTHROMBIN TIME WITH INR 2022-10-26 09:30:00 chen [facility] ESTIMATED GFR 2022-10-26 09:30:00 Camryn [facility] spital CT CHEST WO CONTRAST 2022-10-25 23:50:23 [facility] 2022-10-25 17:30:04 [facility] URINALYSIS SCREEN AND 2022-10-25 17:01:00 [facility] MICROSCOPY, WITH REFLEX TO CULTURE SODIUM LEVEL, URINE, RANDOM 2022-10-25 17:01:00 [facility] CHLORIDE LEVEL, URINE, 2022-10-25 17:01:00 [facility] RANDOM CREATININE LEVEL, URINE, 2022-10-25 17:01:00 [facility] RANDOM URINE CULTURE 2022-10-25 16:55:[address] [facility] [address] ABDOMEN PELVIS WO 2022-10-25 14:31:42 Rehrer, [facility] CONTRAST CBC WITH PLATELET AND 2022-10-25 12:41:00 Rehrer, [facility] DIFFERENTIAL COMPREHENSIVE METABOLIC 2022-10-25 12:41:00 Rehrer, [facility] PANEL LIPASE LEVEL 2022-10-25 12:41:00 [facility]EN AND 2022-10-25 12:41:00 Rehrer, [facility] MICROSCOPY, WITH REFLEX TO CULTURE LACTIC ACID LEVEL 2022-10-25 12:41:00 [facility], [facility] 2022-10-25 12:41:00 Amador Beatty jill Ayoub URINE CULTURE 2022-10-25 12:30:00 Rehrer, [facility] CT CHEST EXTERNAL STUDY 2022-08-16 16:25:00 Rhys Gramajo [facility] Plan of Care Planned Activity Planned Date Details Comments Source Future Scheduled 2023-05-22 Pneumococcal Vaccine: [facility] Test 00:52:43 Pediatrics (0 to 5 Years) and At-Risk Patients (6 to 64 Years) (1 - PCV) [code = Pneumococcal Vaccine: Pediatrics (0 to 5 Years) and At-Risk Patients (6 to 64 Years) (1 - PCV)] Future Scheduled 2023-05-22 Hepatitis C screening [facility] Test 00:52:43 (procedure) [code = 189130296] Future Scheduled 2023-05-22 SHINGLES VACCINES (1 Met [facility] Test 00:52:43 of 2) [code = SHINGLES VACCINES (1 of 2)] Future Scheduled 2023-05-22 COVID-19 VACCINE (5 - [facility] Test 00:52:43 Moderna series) [code = COVID-19 VACCINE (5 - Moderna series)] Future Scheduled 2023-05-22 INFLUENZA VACCINE Method [facility] Test 00:52:43 [code = INFLUENZA VACCINE] Future Scheduled 2023-05-22 Pneumococcal Vaccine: [facility] Test 00:52:43 Pediatrics (0 to 5 Years) and At-Risk Patients (6 to 64 Years) (1 - PCV) [code = Pneumococcal Vaccine: Pediatrics (0 to 5 Years) and At-Risk Patients (6 to 64 Years) (1 - PCV)] Future Scheduled 2023-05-22 Hepatitis C screening [facility] Test 00:52:43 (procedure) [code = [id number]] Future Scheduled 2023-05-22 SHINGLES VACCINES (1 Met [facility] Test 00:52:43 of 2) [code = SHINGLES VACCINES (1 of 2)] Future Scheduled 2023-05-22 COVID-19 VACCINE (5 - [facility] Test 00:52:43 Moderna series) [code = COVID-19 VACCINE (5 - Moderna series)] Future Scheduled 2023-05-22 INFLUENZA VACCINE Method [facility] Test 00:52:43 [code = INFLUENZA VACCINE] Future Scheduled 2023-04-19 Pneumococcal Vaccine: [facility] Test 07:50:51 Pediatrics (0 to 5 Years) and At-Risk Patients (6 to 64 Years) (1 - PCV) [code = Pneumococcal Vaccine: Pediatrics (0 to 5 Years) and At-Risk Patients (6 to 64 Years) (1 - PCV)] Future Scheduled 2023-04-19 Hepatitis C screening [facility] Test 07:50:51 (procedure) [code = [id number]] Future Scheduled 2023-04-19 SHINGLES VACCINES (1 Met [facility] Test 07:50:51 of 2) [code = SHINGLES VACCINES (1 of 2)] Future Scheduled 2023-04-19 COVID-19 VACCINE (5 - [facility] Test 07:50:51 Moderna series) [code = COVID-19 VACCINE (5 - Moderna series)] Future Scheduled 2023-04-19 INFLUENZA VACCINE Method [facility] Test 07:50:51 [code = INFLUENZA VACCINE] Future Scheduled 2023-04-07 Pneumococcal Vaccine: [facility] Test 08:01:08 Pediatrics (0 to 5 Years) and At-Risk Patients (6 to 64 Years) (1 - PCV) [code = Pneumococcal Vaccine: Pediatrics (0 to 5 Years) and At-Risk Patients (6 to 64 Years) (1 - PCV)] Future Scheduled 2023-04-07 Hepatitis C screening [facility] Test 08:01:08 (procedure) [code = [id number]] Future Scheduled 2023-04-07 SHINGLES VACCINES (1 [facility] Test 08:01:08 of 2) [code = SHINGLES VACCINES (1 of 2)] Future Scheduled 2023-04-07 COVID-19 VACCINE (5 - [facility] Test 08:01:08 Moderna series) [code = COVID-19 VACCINE (5 - Moderna series)] Future Scheduled 2023-04-07 INFLUENZA VACCINE [facility] Test 08:01:08 [code = INFLUENZA VACCINE] Future Scheduled 2023-03-31 Pneumococcal Vaccine: [facility] Test 10:53:42 Pediatrics (0 to 5 Years) and At-Risk Patients (6 to 64 Years) (1 - PCV) [code = Pneumococcal Vaccine: Pediatrics (0 to 5 Years) and At-Risk Patients (6 to 64 Years) (1 - PCV)] Future Scheduled 2023-03-31 Hepatitis C screening [facility] Test 10:53:42 (procedure) [code = [id number]] Future Scheduled 2023-03-31 SHINGLES VACCINES (1 Met [facility] Test 10:53:42 of 2) [code = SHINGLES VACCINES (1 of 2)] Future Scheduled 2023-03-31 COVID-19 VACCINE (5 - [facility] Test 10:53:42 Moderna series) [code = COVID-19 VACCINE (5 - Moderna series)] Future Scheduled 2023-03-31 INFLUENZA VACCINE [facility] Test 10:53:42 [code = INFLUENZA VACCINE] Future Scheduled 2023-01-16 Pneumococcal Vaccine: [facility] Test 20:02:08 Pediatrics (0 to 5 Years) and At-Risk Patients (6 to 64 Years) (1 - PCV) [code = Pneumococcal Vaccine: Pediatrics (0 to 5 Years) and At-Risk Patients (6 to 64 Years) (1 - PCV)] Future Scheduled 2023-01-16 Hepatitis C screening [facility] Test 20:02:08 (procedure) [code = [id number]] Future Scheduled 2023-01-16 SHINGLES VACCINES (1 [facility] Test 20:02:08 of 2) [code = SHINGLES VACCINES (1 of 2)] Future Scheduled 2023-01-16 COLONOSCOPY SCREENING [facility] Test 20:02:08 [code = COLONOSCOPY SCREENING] Future Scheduled 2023-01-16 COVID-19 VACCINE (5 - [facility] Test 20:02:08 Booster for Moderna series) [code = COVID-19 VACCINE (5 - Booster for Moderna series)] Future Scheduled 2023-01-16 INFLUENZA VACCINE Method [facility] Test 20:02:08 [code = INFLUENZA VACCINE] Future Scheduled 2022-12-06 Pneumococcal Vaccine: [facility] Test 08:31:10 Pediatrics (0 to 5 Years) and At-Risk Patients (6 to 64 Years) (1 - PCV) [code = Pneumococcal Vaccine: Pediatrics (0 to 5 Years) and At-Risk Patients (6 to 64 Years) (1 - PCV)] Future Scheduled 2022-12-06 Hepatitis C screening [facility] Test 08:31:10 (procedure) [code = [id number]] Future Scheduled 2022-12-06 SHINGLES VACCINES (1 Met [facility] Test 08:31:10 of 2) [code = SHINGLES VACCINES (1 of 2)] Future Scheduled 2022-12-06 COLONOSCOPY SCREENING [facility] Test 08:31:10 [code = COLONOSCOPY SCREENING] Future Scheduled 2022-12-06 INFLUENZA VACCINE Method [facility] Hospital Test 08:31:10 [code = INFLUENZA VACCINE] Future Scheduled 2022-12-06 COVID-19 VACCINE (5 - [facility] Test 08:31:10 Booster for Moderna series) [code = COVID-19 VACCINE (5 - Booster for Moderna series)] Future Scheduled 2022-11-30 Pneumococcal Vaccine: [facility] Test 08:08:13 Pediatrics (0 to 5 Years) and At-Risk Patients (6 to 64 Years) (1 - PCV) [code = Pneumococcal Vaccine: Pediatrics (0 to 5 Years) and At-Risk Patients (6 to 64 Years) (1 - PCV)] Future Scheduled 2022-11-30 Hepatitis C screening [facility] Test 08:08:13 (procedure) [code = [id number]] Future Scheduled 2022-11-30 SHINGLES VACCINES (1 [facility] Test 08:08:13 of 2) [code = SHINGLES VACCINES (1 of 2)] Future Scheduled 2022-11-30 COLONOSCOPY SCREENING [facility] Test 08:08:13 [code = COLONOSCOPY SCREENING] Future Scheduled 2022-11-30 INFLUENZA VACCINE Method is Hospital Test 08:08:13 [code = INFLUENZA VACCINE] Future Scheduled 2022-11-30 COVID-19 VACCINE (5 - [facility] [facility] 08:08:13 Booster for Moderna series) [code = COVID-19 VACCINE (5 - Booster for Moderna series)] Future Scheduled 2022-11-16 Pneumococcal Vaccine: [facility] Test 08:53:45 Pediatrics (0 to 5 Years) and At-Risk Patients (6 to 64 Years) (1 - PCV) [code = Pneumococcal Vaccine: Pediatrics (0 to 5 Years) and At-Risk Patients (6 to 64 Years) (1 - PCV)] Future Scheduled 2022-11-16 Hepatitis C screening [facility] Test 08:53:45 (procedure) [code = 261531589] Future Scheduled 2022-11-16 SHINGLES VACCINES (1 Met [facility] Test 08:53:45 of 2) [code = SHINGLES VACCINES (1 of 2)] Future Scheduled 2022-11-16 COLONOSCOPY SCREENING [facility] Test 08:53:45 [code = COLONOSCOPY SCREENING] Future Scheduled 2022-11-16 INFLUENZA VACCINE [facility] Test 08:53:45 [code = INFLUENZA VACCINE] Future Scheduled 2022-11-16 COVID-19 VACCINE (5 - [facility] Test 08:53:45 Booster for Moderna series) [code = COVID-19 VACCINE (5 - Booster for Moderna series)] Future Scheduled 2022-09-26 Hepatitis C screening [facility] Test 23:54:04 (procedure) [code = 476112104] Future Scheduled 2022-09-26 COLONOSCOPY SCREENING [facility] Test 23:54:04 [code = COLONOSCOPY SCREENING] Future Scheduled 2022-09-26 SHINGLES VACCINES (1 Met [facility] Test 23:54:04 of 2) [code = SHINGLES VACCINES (1 of 2)] Future Scheduled 2022-09-26 INFLUENZA VACCINE [facility] Test 23:54:04 [code = INFLUENZA VACCINE] Future Scheduled 2022-09-26 COVID-19 VACCINE (5 - [facility] Test 23:54:04 Booster for Moderna series) [code = COVID-19 VACCINE (5 - Booster for Moderna series)] Future Scheduled 2022-09-26 Hepatitis C screening [facility] Test 23:54:04 (procedure) [code = 047719453] Future Scheduled 2022-09-26 COLONOSCOPY SCREENING [facility] Test 23:54:04 [code = COLONOSCOPY SCREENING] Future Scheduled 2022-09-26 SHINGLES VACCINES (1 [facility] Test 23:54:04 of 2) [code = SHINGLES VACCINES (1 of 2)] Future Scheduled 2022-09-26 INFLUENZA VACCINE [facility] 23:54:04 [code = INFLUENZA VACCINE] Future Scheduled 2022-09-26 COVID-19 VACCINE (5 - [facility] Test 23:54:04 Booster for Moderna series) [code = COVID-19 VACCINE (5 - Booster for Moderna series)] Future Scheduled 2022-08-26 HEPATITIS B VACCINES [facility] Test 02:17:57 (1 of 3 - 3-dose series) [code = HEPATITIS B VACCINES (1 of 3 - 3-dose series)] Future Scheduled 2022-08-26 Hepatitis C screening [facility] Test 02:17:57 (procedure) [code = [id number]] Future Scheduled 2022-08-26 COLONOSCOPY SCREENING [facility] Test 02:17:57 [code = COLONOSCOPY SCREENING] Future Scheduled 2022-08-26 SHINGLES VACCINES (1 [facility] Test 02:17:57 of 2) [code = SHINGLES VACCINES (1 of 2)] Future Scheduled 2022-08-26 INFLUENZA VACCINE Method [facility] Test 02:17:57 [code = INFLUENZA VACCINE] Future Scheduled 2022-08-26 COVID-19 VACCINE (5 - [facility] Test 02:17:57 Booster for Moderna series) [code = COVID-19 VACCINE (5 - Booster for Moderna series)] Encounters Start End Encounter Admission Attending Care Care Encounter Source Date/Time Date/Time Type Type Clinicians Facility Department ID 2022-09-15 Inpatient Tarsha Mancera [facility] RTX [id number] [facility] 00:08:00 00 [facility] 2022-02-13 Inpatient Tarsha ManceraWU RTX [id number] [facility] 15:50:00 64 [facility] 2022-01-14 Inpatient Tarsha ManceraWU RTX [id number] [facility] 16:09:00 81 [facility] 2023-04-13 2023-04-13 Outpatient MARQUIS Ruiz Lalo HCAPM RADI LA0 [id number] [facility] 14:47:00 14:47:00 19 [facility] 2023-04-13 2023-04-13 Outpatient Nickell_K U [facility] [address] [place] 00:00:00 00:00:00 [address] [facility] 2023-04-09 2023-04-09 [place] U [address] [place] 00:00:00 00:00:00 [id number] [facility] 2023-03-22 2023-03-28 [facility] [place] 1.2.840.1 [id number] Methodi 15:37:00 19:03:00 Encounter Eladio Stafford 03074.1.1 050 [facility] 3.430.2.7 [facility] .[facility].753400 l .8 2023-03-22 2023-03-28 [facility] [place] 1.2.840.1 [id number] Methodi 15:37:00 19:03:00 Encounter Anayeli Staffordzachery 95909.1.1 050 Efrem Fritzs K. 3.430.2.7 [facility] [place] .3.856789 l .8 2023-03-22 2023-03-22 Travel 1.2.840.1 1.2.716.930 3507 [id number] Methodi 00:00:00 00:00:[address] 3.430.2.7 0.2.7.3.698 Ho spita .3.550597 084.8 l .8 2023-03-22 2023-03-22 Travel 1.2.840.1 1.2.603.087 9131 [id number] Methodi 00:00:00 00:00:[address] 3.430.2.7 0.2.7.3.698 Ho spita .3.792731 084.8 l .8 2023-03-17 2023-03-17 Outpatient SHERYL BASS [facility] [id number] [facility] 15:20:00 15:20:00 SHERYL CHARLES [facility] 2022-12-20 2022-12-20 Outpatient GC_BCSS_How PRIV PRIV 267 [id number] [facility] 00:00:00 00:00:00 ell_Dan1 [id number] Medic al 2022-12-16 2022-12-16 Outpatient GC_BCSS_How PRIV PRIV 267 [id number] [facility] 00:00:00 00:00:00 too_Dan1 [id number] Medic al 2022-12-16 2022-12-16 Telephone [facility] 1.2.950.708 4680 [id number] [facility] 00:00:00 00:00:00 [facility] 350.1.13.10 ity [facility] 4.2.7.2.686 Ramón as JO ANN?BLEA [phone] [address] [facility] 2022-12-15 2022-12-15 Outpatient R [facility] [id number] Univers 15:20:00 16:12:20 [facility] 2022-12-15 2022-12-15 Office [facility] 1.2.840.114 [id number] Univers 15:20:00 16:12:20 Visit [facility] 350.1.13.10 [facility] 4.2.7.2.686 Ramón as JO ANN?BLEA [phone] [address] 2022-12-13 2022-12-13 Outpatient GC_BCSS_How PRIV PRIV 267 [id number] [facility] 00:00:00 00:00:00 too_Samuel1 [id number] Medic al 2022-11-23 2022-11-23 Travel 1.2.840.1 1.2.008.008 1003 [id number] [facility]i 00:00:00 00:00:[address] 3.430.2.7 0.2.7.3.698 spita .3.976936 084.8 l .8 2022-11-23 2022-11-23 Travel 1.2.840.1 1.2.885.656 1177 351471 Methodi 00:00:00 00:00:[address] 3.430.2.7 0.2.7.3.698 Ho spita .3.005204 084.8 l .8 2022-10-25 2022-11-02 [facility] RehrerParviz 1.2.840.1 104 [id number] Methodi 05:01:00 15:19:00 Encounter Nils Cowan 23193.1.[address] 3.430.2.7 Hospit a .3.893308 l .8 2022-10-25 2022-11-02 [facility] Rehrer Parviz Guerra 1.2.840.1 104 [id number] Methodi 05:01:00 15:19:00 Encounter Nils Cowan 86351.1.[address] 3.430.2.7 Hospit a .3.889625 l .8 2022-10-25 2022-10-25 Travel 1.2.840.1 1.2.143.338 4824 150248 Methodi 00:00:00 00:00:[address] 3.430.2.7 0.2.7.3.698 Ho spita .3.195330 084.8 l .8 2022-10-25 2022-10-25 Travel 1.2.840.1 1.2.083.441 9003 [id number] Methodi 00:00:00 00:00:[address] 3.430.2.7 0.2.7.3.698 Ho spita .3.089554 084.8 l .8 2022-09-01 2022-09-14 Outpatient MARQUIS Tarsha Mancera [facility] RTX [id number] [facility] 09:25:00 00:00:[address] [place] [address] 2022-08-25 2022-08-25 Hospital [facility]ox, 1.2.840.1 [id number] 2100 [id number] Methodi 08:26:09 23:59:00 Encounter Rhys 04380.1.[address] Jeremy 3.430.2.7 Hospit a .3.844432 l .8 2022-08-25 2022-08-25 [facility], 1.2.840.1 [id number] 2100 [id number] Methodi 08:26:09 23:59:00 Encounter Rhys 82787.1.1 Dylon [place] 3.430.2.7 Hospit a .3.206334 l .8 2022-04-25 2022-04-25 Outpatient EL Oh, Tarsha [facility] H[facility] [id number] 11-04 [facility] 09:28:00 09:28:00 [id number] [facility] 2022-04-25 2022-04-25 Outpatient EL Oh, Tarsha [facility] RTX [id number] [facility] 09:28:00 09:28:00 74 [facility] 2022-01-14 2022-02-12 Outpatient EL Oh, Tarsha [facility] RTX [id number] [facility] 08:34:00 00:00:00 74 [facility] 2021-12-14 2022-01-13 Inpatient EL Oh, Tarsha [facility] RTX [id number] [facility] 14:32:00 00:00:00 52 [facility] 2021-12-27 2021-12-27 Inpatient EL Oh, Tarsha [facility] SUGL [id number] [facility] 10:30:00 09:30:00 05 [facility] 2021-12-21 2021-12-21 Outpatient EL Oh, Tarsha [facility] SUGL [id number] [facility] 09:11:00 09:11:00 36 [facility] 2021-10-18 2021-11-15 Inpatient EL Oh, Tarsha [facility] RTX [id number] [facility] 11:23:00 00:00:00 91 [facility] 2021-09-02 2021-09-14 Outpatient EL Oh, Tarsha [facility] RTX [id number] [facility] 10:13:00 00:00:00 86 [facility] 2021-09-08 2021-09-08 Outpatient EL Oh, Tarsha [facility] SUGL [id number] [facility] 08:46:00 08:46:00 74 [facility] 2021-08-06 2021-08-06 Outpatient DERRICK HOLT [facility] [id number] [place] 00:00:00 00:00:[address] 2021-08-04 2021-08-04 Outpatient DERRICK HOLT [facility] 579 [id number] [place] 00:00:00 00:00:[address] 2021-08-01 2021-08-03 Outpatient LAILA [facility] 181 [id number] [place] 00:00:00 00:00:00 JENNY [address] 2021-07-23 2021-07-23 Outpatient DERRICK HOLT [facility] [id number] [place] 00:00:00 00:00:[address] 2021-07-23 2021-07-23 Outpatient DERRICK HOLT [facility] 082 [id number] [place] 00:00:00 00:00:[address] 2021-07-21 2021-07-21 Outpatient DERRICK HOLT [facility] 171 [id number] [place] 00:00:00 00:00:[address] 2021-07-21 2021-07-21 Outpatient DERRICK HOLT [facility] 024 [id number] [place] 00:00:00 00:00:[address] 2021-06-28 2021-07-06 Inpatient NILS COWNA [facility] 078 03231 05399 [place] 00:00:00 00:00:[address] 2021-06-02 2021-06-02 Outpatient JONATHAN COVINGTON [facility] 2100 [id number] [place] 00:00:00 00:00:[address] 2021-04-26 2021-04-26 Emergency X [facility] ERT [id number] Univers 16:39:00 16:39:00 [facility] Results Test Description Test Time Test Comments Results Result [facility] e Comments - CT ABD PELVIS 2023-03-17 W/O CONT 9 16:44:00 [facility] DOB[facility] 1965 Sex: M Name: GENO PRASAD : 1965 Age/S: 57 / M [address] Unit #: [id number] Loc: Adriel Caba [address] Phys: Lalo Ruiz MD Acct: [id number] Dis Date: Status: REG CLI PHONE #: [phone] Exam Date: 04/13/2023 1505 FAX #: Reason: HYDRONEPHROSIS DUE TO OBSTRUTION OF URETER EXAMS: CPT: [id number] CT ABD PELVIS W/O CONT 49360 EXAMINATION: - CT ABD PELVIS W/O CONT. [...] PRASAD : 1965 Age/S: 57 / M [id number] [place] Unit #: [id number] Loc: [place] [address] Phys: Lalo Ruiz MD Acct: [id number] Dis Date: Status: REG CLI PHONE #: [phone] Exam Date: 04/13/2023 150 FAX #: Reason: HYDRONEPHROSIS DUE TO OBSTRUTION OF URETER EXAMS: CPT: [id number] CT ABD PELVIS W/O CONT 41978 (Continued) abnormality is identified. No aggressive lytic [...] Erin CTDI: DLP: Trnscb Date/Time: 04/13/2023 (1644) [email or web address].PR7 Orig Print D/T: S: 04/13/2023 (5518) PAGE 2 Signed Report Prepare RBC, 2 Units 2023-03-23 16:16:00 Test Item Value Reference Range Interpretation Comme nts Product name (test code = 25) Red Cells AS1 Leukored Irrad Unit number (test code = 5555215) [id number] Product code (test code = 3092) [id number] Dispense status (test code = 24) Transfused Blood expiration date (test code = 302) Blood type code (test code = 308) 6200 Blood type (test code = 1314) A POSITIVE Compatibility (test code = 6400) Compatible [facility], 2 [id number] 16:16:00 Test Item Value Reference Range Interpretation Comments Product name (test code Red Cells AS1 Leukored = 25) Irrad Unit number (test code [id number] = 8437507) Product code (test code H7292S75 = 3092) Dispense status (test Transfused code = 24) Blood expiration date (test code = 302) Blood type code (test 6200 code = 308) Blood type (test code = A POSITIVE 1314) Compatibility (test Compatible code = 6400) [facility], 2 [id number] 16:16:00 Test Item Value Reference Range Interpretation Comments Product name (test code Red Cells AS1 Leukored = 25) Irrad Unit number (test code [id number] = 8498965) Product code (test code P6079N30 = 3092) Dispense status (test Transfused code = 24) Blood expiration date (test code = 302) Blood type code (test 6200 code = 308) Blood type (test code = A POSITIVE 1314) Compatibility (test Compatible code = 6400) [facility], 2 [id number] 16:16:00 Test Item Value Reference Range Interpretation Comments Product name (test code Red Cells AS1 Leukored = 25) Irrad Unit number (test code [id number] = 2598967) Product code (test code V9531N61 = 3092) Dispense status (test Transfused code = 24) Blood expiration date (test code = 302) Blood type code (test 6200 code = 308) Blood type (test code = A POSITIVE 1314) Compatibility (test Compatible code = 6400) [facility] RBC, 2 [id number] 16:16:00 Test Item Value Reference Range Interpretation Comments Product name (test code Red Cells AS1 Leukored = 25) Irrad Unit number (test code [id number] = 9648186) Product code (test code W1218X21 = 3092) Dispense status (test Transfused code = 24) Blood expiration date (test code = 302) Blood type code (test 6200 code = 308) Blood type (test code = A POSITIVE 1314) Compatibility (test Compatible code = 6400) [address]2023-06-08 03:42:02 Test Item Value Reference Range Interpretation Comments Ventricular rate (test 121 code = 253) Atrial rate (test code 121 = 255) UT interval (test code 156 = 266) QRSD [...] for LVH, may be normal variant ( [place] product )-T wave abnormality, consider lateral ischemia-Abnormal ECG-No previous ECGs available-Electronical ly Signed By Bentley Card MD ([id number]) on 03/22/2023 10:41:52 [address]2023-06-08 03:42:02 Test Item Value Reference Range Interpretation Comments Ventricular rate (test 121 code = 253) Atrial rate (test code 121 = 255) UT interval (test code 156 = 266) QRSD [...] available-Electronical ly Signed By Bentley Card MD ([id number]) on 03/22/2023 10:41:52 [address]2023-06-08 03:42:02 Test Item Value Reference Range Interpretation Comments Ventricular rate (test 121 code = 253) Atrial rate (test code 121 = 255) UT interval (test code 156 = 266) QRSD [...] for LVH, may be normal variant ( [place] product )-T wave abnormality, consider lateral ischemia-Abnormal ECG-No previous ECGs available-Electronical ly Signed By Bentley Card MD ([id number]) on 03/22/2023 10:41:[address]2023-06-08 03:42:02 Test Item Value Reference Range Interpretation Comments Ventricular rate (test 121 code = 253) Atrial rate (test code 121 = 255) UT interval (test code 156 = 266) QRSD [...] available-Electronical ly Signed By Bentley Card MD ([id number]) on 03/22/2023 10:41:[address]2023-06-08 03:42:02 Test Item Value Reference Range Interpretation Comments Ventricular rate (test 121 code = 253) Atrial rate (test code 121 = 255) UT interval (test code 156 = 266) QRSD [...] available-Electronical ly Signed By Bentley Card MD ([id number]) on 03/22/2023 10:41:52 PM [facility] VENOUS BLOOD [id number] 21:59:00 Test Item Value Reference Range Interpretation Comments POC VENOUS BLOOD 7.340 pH units 7.26-7.43 N GAS PH (test code = POCPHV) POC VENOUS BLOOD 54.2 mmHg e 35.0-45.0 H GAS PCO2 (test code = QYABBR4F) POC VENOUS BLOOD 38.8 mmHg e 80.0-100.0 LL GAS PO2 (test code = JYEMM3Y) POC TCO2 VENOUS 28.6 MMOL/L e 24.0-30.0 N (test code = OYWQWV9H) POC HCO3 VENOUS 29.2 MMOL/L e 22.0-26.0 H (test code = BTPELW9K) POC BASE EXCESS 2.7 MMOL/L e See_Comment N [Automated VENOUS (test code = message] The system POCBEV) which generated this result transmitted reference range : -3.0 to 3.0. Th e reference range was not used to interpret this result as normal/abnormal . POC O2 SATURATION 69 % e 95-100 L VENOUS (test code = JQYY2YS) POC SAMPLE SOURCE Venous Descript Specimen (test code = POCSAMPLE) CBC W/AUTO [id number] 10:20:00 Test Item Value Reference Range Interpretation [...] NO DIFF/SCN CRITERIA = MDIFF) BASIC METABOLIC [id number] 10:12:00 Test Item Value Reference Range Interpretation [...] recommended for shayy for GFRby the N [facility] for Adults.The GFR will not calculate i f the sex is unknown or if thepatient's ag e is <18 years. CREATININE (test 1.6 MG/DL 0.8-1.3 H code = CREAT) CALCIUM (test code 9.4 MG/DL 8.5-10.1 N = CA) PROTHROMBIN [id number] 09:00:00 Test Item Value Reference Range Interpretation [...] in Respiratory specimen by YVROSE with probe [id number] 11:43:33 Test Item Value Reference Range Interpretation Comments SARS-CoV-2 (COVID-19) RNA Not detected [Presence] in Respiratory specimen by YVROSE with probe detection (test code = 58358-1) Whether patient is employed in a Unknown healthcare setting (test code = 32564-3) Whether the patient has symptoms Unknown related to condition of interest (test code = 38561-8) Whether the patient was Unknown hospitalized for condition of interest (test code = 07915-1) Whether the patient was admitted Unknown to intensive care unit (ICU) for condition of interest (test code = 13475-5) Whether patient resides in a Unknown congregate care setting (test code = 89389-9) status (test code = Unknown 28947-3) Date and time of symptom onset Unknown (test code = 08028-1) [facility]2023-01-10 18:02:00 Test Item Value Reference Range Interpretation Comments Urine culture (test SEE COMMENT Bacteriu rony screen code = 2245469) negative. [facility] [id number] 18:02:00 Test Item Value Reference Range Interpretation Comments Urine culture (test SEE COMMENT Bacteriu rony screen code = 2873675) negative. [facility] [id number] 18:02:00 Test Item Value Reference Range Interpretation Comments Urine culture (test SEE COMMENT Bacteriu rony screen code = 8302954) negative. [facility]2023-01-10 18:02:00 Test Item Value Reference Range Interpretation Comments Urine culture (test SEE COMMENT Bacteriu rony screen code = 8508835) negative. [facility]- PET/CT TUMOR SK [id number] 14:28:00 [facility] 1965 Sex: M Patient Name: GENO PRASAD Unit No: [id number] EXAMS: CPT CODE: [id number] PET/CT TUMOR [facility] MIDTH 89077 EXAMINATION: - PET/CT TUMOR SK MIDTH COMPARISON: [...] All CT scans are performed using dose optimi zation techniques as appropriate to a performed exam including one or more of the following: ?Automated exposure control ?Adjustment of the mA and/or kV according to patient size ?Use of iterative reconstruction technique BLOOD GLUCOSE LEVEL: 98 mg/dl INJECTION TO SCAN TIME: 68 minutes FINDINGS: HEAD AND NECK: Tracer uptake in the brain and soft tissues of the neck is physiologic. CHEST: No FDG lungmasses, consolidations or effusions are present. Right chest wall chemotherapy port remains present.Moderate dose infiltration is seen in the soft tissues of the left arm and there is uptake of tracerin left axillary lymph nodes. This uptake is [...] the drain follows the course of the [facility] NAME: GENO PRASAD [address] [facility] [address] PHYS: [place] [address] : 1965 AGE: 56 SEX: M [id number] LOC: [facility] PHONE#: [phone] EXAM DATE: 12/21/2021 STATUS: REG CLI FAX #: [phone] RADIOLOGY NO: PAGE 1 Signed Report (CONTINUED) Patient Name: GENO PRASAD Unit No: [id number] EXAMS: CPT CODE: [id number] PET/CT TUMOR SK BS MIDTH 93631 <Continued> sigmoid colon. Uptake in the more proximal sigmoid colonof up to 6.8 was seen on the [...] Linnea Vasquez RT(N) Transcrpt Date/Tm/Trnsp: 12/21/2021 (1428) Alden.AG38 Orig Print D/T: S: 12/21/2021 (7052) [facility] NAME: GENO PRASAD [address] [facility] [address] PHYS: [place] [address] : 1965 AGE: 56 SEX: M LOC: HANNA[facility] PHONE #: [phone] EXAM DATE: 12/21/2021 STATUS: REG CLI FAX #: [phone] RADIOLOGY NO: PAGE 2 Signed [id number] 09:50:00 Test Item Value Reference Range Interpretation Comments GLUCOSE (test code = GLU) 98 MG/DL 79-105 N Comments to Supervisor Steffen House: FOR PETIs this a LINE draw? N- PET[facility]CT [id number] 13:41:00 [facility] : 1965 Sex: M Patient Name: GENO PRASAD Unit No: [id number] EXAMS: CPT CODE: [id number] PET/CT TUMOR [facility] [address] EXAM:PET/CT scan INDICATION: MALIGNANT NEOPLASM OF RECTUM COMPARISON: None at this time LOCATION: [facility] TECHNIQUE: Approximately 60 minutes following [...] spine without and with contrast is recommended. [facility] NAME: GENO PRASAD [address] [address] [address] PHYS: [place] [address] : 1965 AGE: 56 SEX: M LOC: Z.ZNUC PHONE #: [phone] EXAM DATE: 09/08/2021 STATUS: DEP CLI FAX #: [phone] RADIOLOGY NO: PAGE 1 Signed Report (CONTINUED) Patient Name: GENO PRASAD Unit No: [id number] EXAMS: CPT CODE: [id number] PET/CT TUMOR SK MIDTH 89083 <Continued> There are small lymph nodes in [...] (1341) t.SDR.PMT Orig Print D/T: S: 09/10/2021 (0691) [facility] NAME: GENO PRASAD [address] [address] [address] PHYS: [place] [address] : 1965 AGE: 56 SEX: M LOC: HANNAH PHONE #: [phone] EXAM DATE: 09/08/2021 STATUS: DEP CLI FAX #: [phone] NO: PAGE 2 Signed [id number] 09:44:00 Test Item Value Reference Range Interpretation Comments GLUCOSE (test code = GLU) 86 MG/DL 79-105 N SARS-CoV-2 (COVID-19) RNA [Presence] in Respiratory specimen by YVROSE with probe [id number] 18:54:41 Test Item Value Reference Range Interpretation Comments SARS-CoV-2 (COVID-19) RNA Not detected Not-Detected [Presence] in Respiratory specimen by YVROSE with probe detection (test code = 40950-9) Whether patient is employed in a healthcare setting (test code = 53208-4) Whether the patient has symptoms related to condition of interest (test code = 61080-1) Patient was hospitalized because of this condition (test code = 65865-3) Whether the patient was admitted to intensive care unit (ICU) for condition of interest (test code = 16568-0) Whether patient resides in a congregate care setting (test code = 78744-7) status (test code = 62758-5) BERNARDO DEE-CoV-2 (COVID-19) RNA [Presence] in Respiratory specimen by YVROSE with probe [id number] 16:30:19 Test Item Value Reference Range Interpretation Comments SARS-CoV-2 (COVID-19) RNA Not detected Not-Detected [Presence] in Respiratory specimen by YVROSE with probe detection (test code = 83502-1) Whether patient is employed in a healthcare setting (test code = 90753-7) Whether the patient has symptoms related to condition of interest (test code = 87288-9) Patient was hospitalized because of this condition (test code = 78149-7) Whether the patient was admitted to intensive care unit (ICU) for condition of interest (test code = 06722-1) Whether patient resides in a congregate care setting (test code = 02955-0) [facility] Notes Date/Time Note Provider Source 2022-09-01 11:09:00-00:00 [id number] [facility] [place] of: [facility] [address] [place] [address] PATIENT NAME: GENO PRASAD ADMIT DATE: 09/01/22 ACCOUNT NO: [id number] ROOM NO: AGE: 57 REPORT TYPE: ePROGRESS NOTE RADIATION ONC SEX: M ADMITTING PHYSICIAN: ATTENDING PHYSICIAN:Tarsha Mancera MD Patient MR#: [id number] Date of Service: 09/01/2022 Patient Name: GENO PRASAD Patient : 1965 Patient MR#: [id number] Physician: Tarsha Mancera M.D. Follow-Up Note Diagnosis: [...] 08/16 11:13:58 AM Cc: Bro Vargas M.D. [address] [place] [address] - - Page 2 of 2 Electronically Signed by Tarsha Mancera MD on 09/01 at 1114 PATIENT NAME: GENO PRASAD 994 2022-09-01 10:57:00-00:00 6499-8233 [facility] [place] of: [facility] [id number] [place] [address] PATIENT NAME: GENO PRASAD ADMIT DATE: 09/01/22 ACCOUNT NO: [id number] ROOM NO: AGE: 57 REPORT TYPE: ePHYSICIAN ORDER RADIATION ONC SEX: M ADMITTING PHYSICIAN: ATTENDING PHYSICIAN:Tarsha Mancera MD PHYSICIAN ORDER SCAN SHEET Department of Radiation Oncology [facility] Patient: GENO PRASAD : 1965 MR#: [id number] Physician: Tarsha Mancera M.D. Date: 09/01/2022 Referring Physician: Bro Vargas M.D. 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 on 09/15/2022 2:56:10 PM Electronically Signed by Tarsha Mancera MD on 09/15 at 1456 PATIENT NAME: GENO PRASAD 994 2022-04-25 09:42:00-00:00 9178-6055 [facility] of: [place] [address] PATIENT NAME: GENO PRASAD ADMIT DATE: 04/25/22 ACCOUNT NO: [id number] ROOM NO: AGE: 56 REPORT TYPE: ePHYSICIAN ORDER RADIATION ONC SEX: M ADMITTING PHYSICIAN: ATTENDING PHYSICIAN:Tarsha Mancera MD PHYSICIAN ORDER SCAN SHEET Department of Radiation Oncology [facility] Patient: GENO PRASAD : 1965 MR#: [id number] Physician: Tarsha Mancera M.D. Date: 04/25/2022 Referring Physician: Bro Vargas M.D. 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 on 04/25/2022 11:24:45 AM Electronically Signed by Tarsha Mancera MD on 04/25 at 1124 PATIENT NAME: GENO PRASAD 374 2022-04-25 09:40:00-00:00 9851-3490 [facility] of: [place] [address] PATIENT NAME: GENO PRASAD ADMIT DATE: 04/25/22 ACCOUNT NO: [id number] ROOM NO: AGE: 56 REPORT TYPE: ePROGRESS NOTE RADIATION ONC SEX: M ADMITTING PHYSICIAN: ATTENDING PHYSICIAN:Tarsha Mancera MD Patient MR#: [id number] Date of Service: 04/25/2022 Patient Name: GENO PRASAD Patient : 1965 Patient MR#: [id number] Physician: Tarsha Mancera M.D. Follow-Up Note Diagnosis: [...] 04/25 9:51:22 AM Cc: Bro Vargas M.D. [address] [place] [address] - - Page 2 of 2 Electronically Signed by Tarsha Mancera MD on 04/25 at 0951 PATIENT NAME: GENO PRASAD [id number] 2022-01-31 11:41:00-00:00 6387-0725 [facility] [place] of: [place] [address] PATIENT NAME: GENO PRASAD ADMIT DATE: 01/14/22 ACCOUNT NO: [id number] ROOM NO: AGE: 56 REPORT TYPE: ePHYSICIAN ORDER RADIATION ONC SEX: M ADMITTING PHYSICIAN: ATTENDING PHYSICIAN:Tarsha Mancera MD PHYSICIAN ORDER SCAN SHEET Department of Radiation Oncology [facility] Patient: GENO PRASAD : 1965 MR#: [id number] Physician: Tarsha Mancera M.D. Date: 01/31/2022 Referring Physician: Bro Vargas M.D. 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 on 02/01/2022 10:25:38 AM Electronically Signed by Tarsha Mancera MD on 02/01 at 1025 PATIENT NAME: GENO PRASAD 074 2022-01-19 13:17:00-00:00 7646-9531 [facility] [place] of: [facility] [address] [place] [address] PATIENT NAME: GENO PRASAD ADMIT DATE: 01/14/22 ACCOUNT NO: [id number] ROOM NO: AGE: 56 REPORT TYPE: ePROGRESS NOTE RADIATION ONC SEX: M ADMITTING PHYSICIAN: ATTENDING PHYSICIAN:Tarsha Mancera MD Patient MR#: [id number] Date of Service: 01/19/2022 Patient Name: GENO PRASAD Patient : 1965 Patient MR#: [id number] Physician: Tarsha Mancera M.D. Weekly OTV Note [...] Tarsha Mancera M.D. on 2021 1:18:[address] [place] [address] - - Page 2 of 2 Electronically Signed by Tarsha Mancera MD on 01/19 at 1318 PATIENT NAME: GENO PRASAD 4 2021-12-31 14:52:00-00:00 3552-1506 [facility] [place] of: [address] [address] PATIENT NAME: GENO PRASAD ADMIT DATE: 12/14/21 ACCOUNT NO: [id number] ROOM NO: AGE: 56 REPORT TYPE: ePROCEDURE NOTE RADIATION ONC SEX: M ADMITTING PHYSICIAN: ATTENDING PHYSICIAN:Tarsha Mancera MD Patient MR#: <Patient Id 1> Date of Service: 12/31/2021 Patient Name: GENO PRASAD Patient : 1965 Patient MR#: [id number] Physician: Tarsha Mancera M.D. Treatment Planning Note [...] of treatment is req uested. MODALITY: ___ 3D-10576/61528/49010/26293/23161/98373/53066 /79543/47242/77792 __x_ IMRT-95743/17464/99489/93586/87280/72962/77 293/85902/09312/52721 ___ SRS/SBRT-84542/39404/81708/51776/29146/41260 /31218/06970/50308 Sincerely, PATIENT NAME: GENO PRASAD 652 Page 2 of 2 Electronically Signed and Approved by Tarsha Mancera M.D. 12/31/2021 2:56:50 PM Electronically Signed by Tarsha Mancera MD on 12/31 at 1456 PATIENT NAME: GENO PRASAD 652 2021-12-31 14:24:00-00:00 5534-2915 [facility] [place] of: [address] [address] PATIENT NAME: GENO PRASAD ADMIT DATE: 12/14/21 ACCOUNT NO: [id number] ROOM NO: AGE: 56 REPORT TYPE: ePROCEDURE NOTE RADIATION ONC SEX: M ADMITTING PHYSICIAN: ATTENDING PHYSICIAN:Tarsha Mancera MD Patient MR#: [id number] Date of Service: 12/31/2021 Patient Name: GENO PRASAD Patient : 1965 Patient MR#: [id number] Physician: Tarsha Mancera M.D. 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 Procedure The patient was [...] of the obturators. All images were reviewed allsyon or to tattooing the patient and having him come off the table. Provisional plan for secondary sim: No IV Contrast: None Sincerely, Electronically signed by: Tarsha Manecra M.D. on 12/31 2:52:[address] [place] [address] - - Page 1 of 1 Electronically Signed by Tarsha Mancera MD on 12/31 at 1452 PATIENT NAME: GENO PRASAD 652 2021-12-31 14:13:00-00:00 [id number] [facility] [place] of: [address] [address] PATIENT NAME: GENO PRASAD ADMIT DATE: 12/14/21 ACCOUNT NO: [id number] ROOM NO: AGE: 56 REPORT TYPE: ePHYSICIAN ORDER RADIATION ONC SEX: M ADMITTING PHYSICIAN: ATTENDING PHYSICIAN:Tarsha Mancera MD PHYSICIAN ORDER SCAN SHEET Department of Radiation Oncology [facility] Patient: GENO PRASAD : 1965 MR#: [id number] Physician: Tarsha Mancera M.D. Date: 12/31/2021 Referring [...] PATIENT NAME: GENO PRASAD 652 2021-12-31 14:12:00-00:00 [id number] [facility] [place] of: [address] [address] PATIENT NAME: GENO PRASAD ADMIT DATE: 12/14/21 ACCOUNT NO: [id number] ROOM NO: AGE: 56 REPORT TYPE: ePROCEDURE NOTE RADIATION ONC SEX: M ADMITTING PHYSICIAN: ATTENDING PHYSICIAN:Tarsha Mancera MD Patient MR#: [id number] PHYSICIAN CT SIMULATION ORDER Date of Service: 12/31/2021 Patient Name: GENO PRASAD Patient : 1965 Patient MR#: [id number] Radiation Oncologist: Tarsha Mancera M.D. DIAGNOSIS AND [...] knee sponge to feet Page 2 of [id number] Electronically Signed and Approved by Tarsha Mancera M.D. 12/31/2021 2:40:03 PM Electronically Signed by Tarsha Mancera MD on 12/31 at 1440 PATIENT NAME: GENO PRASAD 652 2021-12-31 13:45:00-00:00 2375-2448 [facility] [place] of: [address] [address] PATIENT NAME: GENO PRASAD ADMIT DATE: 12/14/21 ACCOUNT NO: [id number] ROOM NO: AGE: 56 REPORT TYPE: ePROGRESS NOTE RADIATION ONC SEX: M ADMITTING PHYSICIAN: ATTENDING PHYSICIAN:Tarsha Mancera MD Patient MR#: [id number] Date of Service: 12/31/2021 Patient Name: GENO PRASAD Patient : 1965 Patient MR#: [id number] Physician: Tarsha Mancera M.D. Follow-Up Note Diagnosis: [...] 12/31 1:52:12 PM Cc: Bro Vargas M.D. [address] [place] [address] - - Page 2 of 2 Electronically Signed by Tarsha Mancera MD on 12/31 at 1352 PATIENT NAME: GENO PRASAD 652 2021-12-30 10:29:00-00:00 1721-1038 [facility] [place] of: [facility] [id number] [place] [address] PATIENT NAME: GENO PRASAD ADMIT DATE: 12/14/21 ACCOUNT NO: [id number] ROOM NO: AGE: 56 REPORT TYPE: ePHYSICIAN ORDER RADIATION ONC SEX: M ADMITTING PHYSICIAN: ATTENDING PHYSICIAN:Tarsha Mancera MD PHYSICIAN ORDER SCAN SHEET Department of Radiation Oncology [facility] Patient: GENO PRASAD : 1965 MR#: [id number] Physician: Tarsha Mancera M.D. Date: 12/30/2021 Referring [...] 750cGy (Status - Unapproved) - 0 / 3 C1 Rectal + LN's (Plan ID - [...] PATIENT NAME: GENO PRASAD [id number] 2021-12-14 15:13:00-00:00 0196-7712 [facility] [place] of: [address] [address] PATIENT NAME: GENO PRASAD ADMIT DATE: 12/14/21 ACCOUNT NO: [id number] ROOM NO: AGE: 56 REPORT TYPE: ePHYSICIAN ORDER RADIATION ONC SEX: M ADMITTING PHYSICIAN: ATTENDING PHYSICIAN:Tarsha Mancera MD PHYSICIAN ORDER SCAN SHEET Department of Radiation Oncology [facility] Patient: GENO PRASAD : 1965 MR#: [id number] Physician: Tarsha Mancera M.D. Date: 12/14/2021 Referring [...] PATIENT NAME: GENO PRASAD 652 2021-12-14 14:59:00-00:00 4050-8348 [facility] [place] of: [address] [address] PATIENT NAME: GENO PRASAD ADMIT DATE: 12/14/21 ACCOUNT NO: [id number] ROOM NO: AGE: 56 REPORT TYPE: ePROGRESS NOTE RADIATION ONC SEX: M ADMITTING PHYSICIAN: ATTENDING PHYSICIAN:Tarsha Mancera MD Patient MR#: [id number] Date of Service: 12/14/2021 Patient Name: GENO PRASAD Patient : 1965 Patient MR#: [id number] Physician: Tarsha Mancera M.D. Follow-Up Note Diagnosis: C20 - malignant neoplasm of rectum, Narrative: MR. PRASAD is a 56 year old who ret urns after nearly 2 month inpatient break from preop c hemoradiation for a locally advanced rectal cancer. He was treated for bowel perforation at [facility] by surgeon Dr. Yolande Fernández in [place]. Mr. Conway has two ostomies no w [...] next steps with his surgeon. Records from [facility] pending. Sincerely, Electronically signed by: Tarsha Mancera M.D. on 2021 3:04:56 PM Cc: Shaji Raymundo M.D. [address] [place] [address] - - Page 2 of 2 Electronically Signed by Tarsha Mancera MD on 12/14 at 4274 PATIENT NAME: GENO PRASAD 652 2021-11-08 11:05:00-00:00 5068-3739 [facility] [place] of: [place] [address] PATIENT NAME: GENO PRASAD ADMIT DATE: 2 ACCOUNT NO: [id number] ROOM NO: AGE: 56 REPORT TYPE: ePHYSICIAN ORDER RADIATION ONC SEX: M ADMITTING PHYSICIAN: ATTENDING PHYSICIAN:Tarsha Mancera MD PHYSICIAN ORDER SCAN SHEET Department of Radiation Oncology [facility] Patient: GENO PRASAD : 1965 MR#: [id number] Physician: Tarsha Mancera M.D. Date: 11/08/2021 Referring [...] PATIENT NAME: GENO PRASAD 6791 2021-10-14 13:37:00-00:00 1795-6560 [facility] [place] of: [address] [address] PATIENT NAME: GENO PRASAD ADMIT DATE: ACCOUNT NO: [id number] ROOM NO: AGE: 56 REPORT TYPE: ePROCEDURE NOTE RADIATION ONC SEX: M ADMITTING PHYSICIAN: ATTENDING PHYSICIAN:Tarsha Mancera MD Date of Service: 10/14/2021 Patient Name: GENO PRASAD Patient : 1965 Patient MR#: [id number] Physician: Tarsha Mancera M.D. Treatment Planning Note [...] of treatment is req uested. MODALITY: ___ 3D-58076/91410/62130/97743/38454/41502 ___ IMRT-00144/30475/67491/12077/65550/52716/772 93 ___ SRS/SBRT-30754/26338/06516/93839/28498/46595 Sincerely, Electronically Signed and Approved by Tarsha Mancera M.D. 10/14/2021 1:38:10 PM Electronically Signed by Tarsha Mancera MD on 10/14 at 1338 PATIENT NAME: GENO PRASAD 791 2021-10-14 13:36:00-00:00 3290-6039 [facility] [place] of: [place] [address] PATIENT NAME: GENO PRASAD ADMIT DATE: ACCOUNT NO: [id number] ROOM NO: AGE: 56 REPORT TYPE: ePROCEDURE NOTE RADIATION ONC SEX: M ADMITTING PHYSICIAN: ATTENDING PHYSICIAN:Tarsha Mancera MD Date of Service: 10/14/2021 Patient Name: GENO PRASAD Patient : 1965 Patient MR#: [id number] Physician: Tarsha Mancera M.D. Simulation Note Type [...] PATIENT NAME: GENO PRASAD 791 2021-10-13 13:52:00-00:00 8622-6896 [facility] [place] of: [facility] [address] [place] [address] PATIENT NAME: GENO PRASAD ADMIT DATE: ACCOUNT NO: [id number] ROOM NO: AGE: 56 REPORT TYPE: ePROGRESS NOTE RADIATION ONC SEX: M ADMITTING PHYSICIAN: ATTENDING PHYSICIAN:Tarsha Mancera MD Date of Service: 10/13/2021 Patient Name: GENO PRASAD Patient : 1965 Patient MR#: [id number] Physician: Tarsha Mancera M.D. Weekly OTV Note [...] without modification. Sincerely, Electronically signed by: Tarsha Macnera M.D. on 09/16 1:53:35 PM Electronically Signed by Tarsha Mancera MD on 10/13 at 1353 PATIENT NAME: GNEO PRASAD 791 2021-10-06 14:39:00-00:00 8278-0289 [facility] [place] of: [place] [address] PATIENT NAME: GENO PRASAD ADMIT DATE: ACCOUNT NO: [id number] ROOM NO: AGE: 56 REPORT TYPE: ePROGRESS NOTE RADIATION ONC SEX: M ADMITTING PHYSICIAN: ATTENDING PHYSICIAN:Tarsha Mancera MD Date of Service: 10/06/2021 Patient Name: GENO PRASAD Patient : 1965 Patient MR#: [id number] Physician: Kenzie Sosa M.D. Weekly OTV Note [...] PATIENT NAME: GENO PRASAD [id number] 2021-10-06 14:39:00-00:00 2521-1733 [facility] [place] of: [facility] [address] [place] [address] PATIENT NAME: GENO PRASAD ADMIT DATE: 10/18/21 ACCOUNT NO: [id number] ROOM NO: AGE: 56 REPORT TYPE: ePROGRESS NOTE RADIATION ONC SEX: M ADMITTING PHYSICIAN: ATTENDING PHYSICIAN:Tarsha Mancera MD Patient MR#: [id number] Date of Service: 10/06/2021 Patient Name: GENO PRASAD Patient : 1965 Patient MR#: [id number] Physician: Kenzie Sosa M.D. Weekly OTV Note [...] present management. Prescription given for Lomotil 2 ta bs BID, monitor abdominal discomfort. The patient s dosimetry treatment plan and mickey l images have been reviewed and approved without modification. Sincerely, [address] [place] [address] - - Page 2 of 2 Electronically Signed by Kenzie Sosa MD on at 1441 PATIENT NAME: GENO PRASAD 791 2021-09-22 13:55:00-00:00 4017-6798 [facility] [place] of: [place] [address] PATIENT NAME: GENO PRASAD ADMIT DATE: ACCOUNT NO: [id number] ROOM NO: AGE: 56 REPORT TYPE: ePROGRESS NOTE RADIATION ONC SEX: M ADMITTING PHYSICIAN: ATTENDING PHYSICIAN:Tarsha Mancera MD Date of Service: 09/22/2021 Patient Name: GENO PRASAD Patient : 1965 Patient MR#: [id number] Physician: Tarsha Mancera M.D. Weekly OTV Note [...] PATIENT NAME: GENO PRASAD 791 2021-09-20 10:38:00-00:00 2126-2841 [facility] of: [address] [address] PATIENT NAME: GENO PRASAD ADMIT DATE: ACCOUNT NO: [id number] ROOM NO: AGE: 56 REPORT TYPE: ePROGRESS NOTE RADIATION ONC SEX: M ADMITTING PHYSICIAN: ATTENDING PHYSICIAN:Tarsha Mancera MD Date of Service: 09/20/2021 Patient Name: GENO PRASAD Patient : 1965 Patient MR#: [id number] Physician: Tarsha Mancera M.D. See on Treatment/Block [...] by Tarsha Mancera MD on 09/20 at [facility] PATIENT NAME: GENO PRASAD 791 2021-09-08 08:45:00-00:00 5518-9029 [facility] of: [place] [address] PATIENT NAME: GENO PRASAD ADMIT DATE: 09/02/21 ACCOUNT NO: [id number] ROOM NO: AGE: 56 REPORT TYPE: ePHYSICIAN ORDER RADIATION ONC SEX: M ADMITTING PHYSICIAN: ATTENDING PHYSICIAN:Tarsha Mancera MD Department of Radiation Oncology [facility] Patient: GENO PRASAD : 1965 MR#: [id number] Physician: Tarsha Mancera M.D. Date: 09/08/2021 Referring Physician: TANIA WALTER Diagnosis: Primary C20 - Malignant neoplasm of r ectum, Diagnosed 08/31/2021 (Active) Stage IIIB, T3, N1, M0 Reason for Visit: ORDERING PHYSICIAN SIGNATURE: Electronically sig darrell by Tarsha Mancera M.D. on 09/13/2021 8:30:45 AM Electronically Signed by Tarsha Mancera MD on 09/13 at 0830 PATIENT NAME: GENO PRASAD 286 2021-09-02 11:08:00-00:00 9463-0182 [facility] [place] of: [address] [address] PATIENT NAME: GENO PRASAD ADMIT DATE: 09/02/21 ACCOUNT NO: [id number] ROOM NO: AGE: 56 REPORT TYPE: ePROCEDURE NOTE RADIATION ONC SEX: M ADMITTING PHYSICIAN: ATTENDING PHYSICIAN:Tarsha Mancera MD Date of Service: 09/02/2021 Patient Name: GENO PRASAD Patient : 1965 Patient MR#: [id number] Physician: Tarsha Mancera M.D. Treatment Planning Note [...] of treatment is req uested. MODALITY: ___ 3D-92496/97462/74652/09856/72206/95964 ___ IMRT-61701/61651/70453/89528/00279/35682/772 93 ___ SRS/SBRT-98718/28158/15562/46824/78804/26235 Sincerely, Electronically Signed and Approved by Tarsha Mancera M.D. 09/02/2021 11:09:08 AM PATIENT NAME: GENO PRASAD 286 Electronically Signed by Tarsha Mancera MD on 09/02 at 1109 PATIENT NAME: GENO PRASAD 286 2021-09-02 11:07:00-00:00 8499-0962 [facility] [place] of: [address] [address] PATIENT NAME: GENO PRASAD ADMIT DATE: 09/02/21 ACCOUNT NO: [id number] ROOM NO: AGE: 56 REPORT TYPE: ePROCEDURE NOTE RADIATION ONC SEX: M ADMITTING PHYSICIAN: ATTENDING PHYSICIAN:Tarsha Mancera MD Date of Service: 09/02/2021 Patient Name: GENO PRASAD Patient : 1965 Patient MR#: [id number] Physician: Tarsha Mancera M.D. Simulation Note Type of Simulation: Complex Purpose: Initial Diagnosis: Rectal Adenocarcinoma C20 - Malignant neoplasm of rectum, Stage IIIB, T3-4, N1, M0 Treatment Intent: Curative History Summary: Staging pelvic CT scan was nota ble for sreedhar-recal randa metastases but no distant metastases. The patien t was referred for preoperative FREIGHT ELEVATOR OPERATOR with curative intent after havi ng 3 [...] PATIENT NAME: GENO PRASAD 286 2021-09-02 10:54:00-00:00 2154-7824 [facility] [place] of: [address] [address] PATIENT NAME: GENO PRASAD ADMIT DATE: 09/02/21 ACCOUNT NO: [id number] ROOM NO: AGE: 56 REPORT TYPE: eCONSULTATION RADIATION ONC SEX: M ADMITTING PHYSICIAN: ATTENDING PHYSICIAN:Tarsha Mancera MD Date of Service: 09/02/2021 Patient Name: GENO PRASAD Patient : 1965 Patient MR#: [id number] Physician: Tarsha Mancera M.D. Initial Outpatient Consultation [...] presented with GI symptoms of hematochezia in [facility] 2020. Visits to the ER were wasteful [...] cm above the AV. Biopsy confirmed MD sravanthi ocarcinoma and CEA proved elevated at 56.3. [...] or signs of blood. [facility] to Dr. Vargas and plans to have Dr. Gramajo do his surgery once pr eop FREIGHT ELEVATOR OPERATOR is complete. No evidence of prior PET [...] prn, MiraLa x, powder oral prn and Redfox, tablet oral prn. Allergies: No Known Allergies [...] t he need to proceed with concurrent FREIGHT ELEVATOR OPERATOR to fully treat the pelvic lymph nodes [...] by Tarsha Mancera MD on 09/02 at 1102 PATIENT NAME: GENO PRASAD 286 2021-09-02 10:49:00-00:00 7535-6520 [facility] [place] of: [place] [address] PATIENT NAME: GENO PRASAD ADMIT DATE: 09/02/21 ACCOUNT NO: [id number] ROOM NO: AGE: 56 REPORT TYPE: ePHYSICIAN ORDER RADIATION ONC SEX: M ADMITTING PHYSICIAN: ATTENDING PHYSICIAN:Tarsha Mancera MD Department of Radiation Oncology [facility] Patient: GENO PRASAD : 1965 MR#: [id number] Physician: Tarsha Mancera M.D. Date: 09/02/2021 Referring Physician: SELF REFERRED Diagnosis: Primary C20 - Malignant neoplasm of r ectum, Diagnosed 08/31/2021 (Active) Stage IIIB, T3, N1, M0 Reason for Visit: ORDERING PHYSICIAN SIGNATURE: Electronically sig darrell by Tarsha Mancera M.D. on 09/02/2021 11:26:45 AM Electronically Signed by Tarsha Mancera MD on 09/02 at 1123 PATIENT NAME: GENO PRASAD [id number]
--- NOTE | 2023-05-27 11:56 | ER ---
Nurse's Notes [facility] Name: Edwin Young Age: 57 yrs Sex: Male : 1965 Arrival Date: 05/27/2023 Time: 11:01 Bed 3 Private MD: Diagnosis: Nephrostomy drainage bag replacement Presentation: 05/27 11:14 Chief complaint: Patient states: nephrostomy bag leaking since last night. Coronavirus ss screen: Client denies travel out of the [place] in the last 14 days. Ebola Screen: Patient denies exposure to infectious person. Patient denies travel to an Ebola-affected area in the 21 days before illness onset. Initial Sepsis Screen: Does the patient meet any 2 criteria? No. Patient's initial sepsis screen is negative. Does the patient have a suspected source of infection? No. Patient's initial sepsis screen is negative. Risk Assessment: Do you want to hurt yourself or someone else? Patient reports no desire to harm self or others. Onset of symptoms was May 26, 2023. 11:14 Method Of Arrival: Ambulatory ss 11:14 Acuity: JASWINDER 4 ss Triage Assessment: 11:15 General: Appears in no apparent distress. Behavior is calm, cooperative, appropriate bp for age. Pain: Denies pain. EENT: No deficits noted. Neuro: No deficits noted. Cardiovascular: No deficits noted. Respiratory: No deficits noted. GI: No deficits noted. : LEFT NEPHROSTOMY. Derm: No deficits noted. Musculoskeletal: No deficits noted. Historical: - Allergies: 11:19 No Known Allergies; ss - PMHx: 11:19 CHEMO; CHF; colon cancer; Gout; Hypertension; ss - PSHx: 11:19 Colostomy; L nephrostomy; ss - Immunization history:: Client reports receiving the 2nd dose of the Covid vaccine. - Social history:: Smoking status: Patient denies any tobacco usage or history of. Screenin:15 [facility] ED Fall Risk Assessment (Adult) History of falling in the last 3 months, bp including since admission No falls in past 3 months (0 pts). Abuse screen: Denies threats or abuse. Denies injuries from another. Nutritional screening: No deficits noted. Tuberculosis screening: No symptoms or risk factors identified. Assessment: 11:15 General: SEE TRIAGE NOTE. bp Vital Signs: 11:14 BP 123 / 89; Pulse 96; Resp 16; Temp 98(TE); Pulse Ox 97% on R/A; Weight 89.36 kg; Height 6 ft. 2 in. ; Pain 0/10; 11:14 Body Mass Index 25.29 (89.36 kg, 187.96 cm) 11:14 Pain Scale: Adult ED Course: 11:02 Patient arrived in ED. rg4 11:11 López Thomas, RN is Primary Nurse. jl7 11:14 Rich Mercado MD is Attending Physician. kdr 11:15 Patient has correct armband on for positive identification. Bed in low position. Call bp light in reach. 11:19 Triage completed. ss 11:19 Arm band placed on right wrist. ss 11:47 No provider procedures requiring assistance completed. NEPHROSTOMY BAG REPLACED. bp Patient did not have IV access during this emergency room visit. Administered Medications: No medications were administered Medication: 11:15 VIS not applicable for this client. bp Outcome: 11:56 Discharge ordered by . kdr 12:05 Discharged to home bp 12:05 Condition: stable 12:05 Discharge instructions given to patient, Instructed on discharge instructions, follow up and referral plans. Demonstrated understanding of instructions, follow-up care. 12:05 Patient left the ED. bp Signatures: Rich Mercado MD MD kdr Pau Salvador RN RN Sidra Mccarthy rg4 López Thomas, TJ RN jl7 Henry Harris RN RN bp
--- NOTE | 2023-05-27 11:56 | EDPHYS ---
Physician Documentation [facility] Name: Edwin Young Age: 57 yrs Sex: Male : 1965 Arrival Date: 05/27/2023 Time: 11:01 Bed 3 Private MD: ED Physician Rich Mercado HPI: 05/27 15:33 This 57 yrs old Black Male presents to ER via Ambulatory with complaints of Nephrostomy kdr Bag Leaking. 15:33 Patient presents to the ED without physical complaint. His only issue is that his kdr nephrostomy bag is leaking. He needs to have it replaced.. Onset: The symptoms/episode began/occurred this morning. Severity of symptoms: At their worst the symptoms were mild in the emergency department the symptoms are unchanged. The patient has not experienced similar symptoms in the past. The patient has been recently seen by a physician: the patient's primary care provider. Historical: - Allergies: 11:19 No Known Allergies; ss - PMHx: 11:19 CHEMO; CHF; colon cancer; Gout; Hypertension; ss - PSHx: 11:19 Colostomy; L nephrostomy; ss - Immunization history:: Client reports receiving the 2nd dose of the Covid vaccine. - Social history:: Smoking status: Patient denies any tobacco usage or history of. ROS: 15:33 Constitutional: Negative for fever, chills, and weight loss, Eyes: Negative for injury, kdr pain, redness, and discharge. 15:33 All other systems are negative. Exam: 15:33 Constitutional: This is a well developed, well nourished patient who is awake, alert, kdr and in no acute distress. Since the patient was here only to get his nephrostomy bag replaced, no physical exam was performed Vital Signs: 11:14 BP 123 / 89; Pulse 96; Resp 16; Temp 98(TE); Pulse Ox 97% on R/A; Weight 89.36 kg; ss Height 6 ft. 2 in. ; Pain 0/10; 11:14 Body Mass Index 25.29 (89.36 kg, 187.96 cm) 11:14 Pain Scale: Adult ss MDM: 11:56 Patient medically screened. kdr 15:35 Data reviewed: vital signs, nurses notes. kdr Administered Medications: No medications were administered Disposition Summary: 05/27/23 11:56 Discharge Ordered Location: Home kdr Problem: new kdr Symptoms: are resolved kdr Condition: Stable kdr Diagnosis - Nephrostomy drainage bag replacement kdr Followup: kdr - With: Private Physician - When: 2 - 3 days - Reason: If symptoms return, Further diagnostic work-up, Recheck today's complaints, Continuance of care, Re-evaluation by your physician Discharge Instructions: - Discharge Summary Sheet kdr - Percutaneous Nephrostomy, Care After kdr - Percutaneous Nephrostomy Home Guide kdr Forms: - Medication Reconciliation Form kdr - Thank You Letter kdr - Patient Portal Instructions kdr - Leadership Thank You Letter kdr Signatures: Dispatcher [employer] EDMS Rich Mercado MD MD kdr Pau Salvador RN RN ss Corrections: (The following items were deleted from the chart) 12:01 11:54 Wrist Right 3 View+RAD.RAD.BRZ ordered. EDMS EDMS 12:01 11:54 Shoulder Left 2 View+RAD.RAD.BRZ ordered. EDMS EDMS
[2023-05-27 12:10] VITALS: BP 123/89; TEMP 98; O2SAT 97
== END 2023-05-27 12:05 | disposition home or self-care (01) ==
LOC: ER 11:01
DX: T83.032A Leakage of nephrostomy catheter, initial encounter (principal)
CPT/HCPCS: 99282

== ENCOUNTER 2023-06-11 23:52 | Emergency (ER) | payer OTHER ==
[2023-06-12] MEDS ORDERED: NA CHLORIDE 0.9% 1,000 ML ONE (00:54)
[2023-06-12] MEDS ORDERED: NA CHLORIDE 0.9% 50 ML ONE (00:54)
[2023-06-12] MEDS ORDERED: FAMOTIDINE 20 MG/2 ML VIAL IV ONE (00:54)
[2023-06-12] MEDS ORDERED: HALOPERIDOL LACT 5 MG/ML INJ ONE (00:54)
[2023-06-12 01:28] LABS: AST/SGOT 10 U/L (15-37); Albumin 2.5 g/dL (3.4-5.0); Alkaline Phosphatase 67 U/L (45-117); BUN Blood Urea Nitrogen 24 mg/dL (7-18); Bicarbonate 25 mEq/L (21-32); Bilirubin Total 0.6 mg/dL (0.2-1.0); Glomerular Filtration Rate 21 ml/min (=/>90); Glucose Level 151 mg/dL (74-106); Lipase 15 U/L (13-75); Potassium 4.7 mEq/L (3.5-5.1); Protein, Total 7.9 g/dL (6.4-8.2); Sodium Level 134 mEq/L (136-145)
[2023-06-12 01:37] LABS: ALT/SGPT < 10 U/L (16-61)
[2023-06-12 01:42] LABS: Hematocrit 24.5 % (39.6-49.0); MCV 73.5 fL (80-100); Platelets 605 thou/uL (152-406); RBC Red Blood Cell Count 3.34 M/uL (4.33-5.43)
[2023-06-12] MEDS ORDERED: POLYETHYL GLY 3350 17 GM/DOSE ONE (01:52)
--- NOTE | 2023-06-12 02:31 | ER ---
Nurse's Notes [facility] Name: Edwin Young Age: 57 yrs Sex: Male : 1965 Arrival Date: 06/11/2023 Time: 23:52 Bed 20 Private MD: Diagnosis: Hypertensive heart and chronic kidney disease with heart failure and stage 1 through stage 4 chronic kidney disease, or unspecified chronic kidney disease;Anemia in chronic kidney disease;Constipation, unspecified Presentation: 06/12 00:03 Chief complaint: Patient states: he started having severe abdominal, rectal and leg ap3 pain this morning. patient states his pain is currently a 10/10 on the pain scale. Coronavirus screen: At this time, the client does not indicate any symptoms associated with coronavirus-19. Ebola Screen: No symptoms or risks identified at this time. Initial Sepsis Screen: Does the patient meet any 2 criteria? HR > 90 bpm. Does the patient have a suspected source of infection? Yes: Acute abdominal pain. Risk Assessment: Do you want to hurt yourself or someone else? Patient reports no desire to harm self or others. Onset of symptoms was June 12, 2023. 00:03 Method Of Arrival: Wheelchair ap3 00:03 Acuity: JASWINDER 3 ap3 Triage Assessment: 00:05 General: Appears uncomfortable, Behavior is cooperative. Pain: Complains of pain in ap3 gluteal cleft, abdomen and right leg Pain currently is 10 out of 10 on a pain scale. Neuro: Level of Consciousness is awake, alert, obeys commands, Oriented to person, place, time, situation. Cardiovascular: Patient's skin is warm and dry. Respiratory: Airway is patent Respiratory effort is even, unlabored, Respiratory pattern is regular, symmetrical. GI: Reports lower abdominal pain, upper abdominal pain, rectal pain. Historical: - Allergies: 00:05 No Known Allergies; ap3 - PMHx: 00:05 CHEMO; CHF; colon cancer; Gout; Hypertension; ap3 - PSHx: 00:05 Colostomy; L nephrostomy; ap3 - Immunization history:: Client reports receiving the 2nd dose of the Covid vaccine. - Social history:: Smoking status: Patient denies any tobacco usage or history of. Screenin:06 Abuse screen: Denies threats or abuse. Nutritional screening: No deficits noted. ap3 Tuberculosis screening: No symptoms or risk factors identified. 00:06 [facility] ED Fall Risk Assessment (Adult) History of falling in the last 3 months, vc1 including since admission No falls in past 3 months (0 pts) Confusion or Disorientation No (0 pts) Intoxicated or Sedated No (0 pts) Impaired Gait No (0 pts) Mobility Assist Device Used No (0 pt) Altered Elimination No (0 pt) Score/Fall Risk Level 0 - 2 = Low Risk Oriented to surroundings, Maintained a safe environment, Educated pt \T\ family on fall prevention, incl call for assistance when getting out of bed. Assessment: 02:00 Reassessment: No changes from previously documented assessment. Patient and/or family vc1 updated on plan of care and expected duration. Pain level reassessed. Patient is alert, oriented x 3, equal unlabored respirations, skin warm/dry/pink. 02:43 Reassessment: No changes from previously documented assessment. Patient and/or family vc1 updated on plan of care and expected duration. Pain level reassessed. Patient is alert, oriented x 3, equal unlabored respirations, skin warm/dry/pink. Vital Signs: 00:03 BP 132 / 90; Pulse 129; Resp 18; Temp 97.8; Pulse Ox 99% ; Pain 10/10; ap3 01:00 BP 145 / 99; Pulse 116; Resp 15; Pulse Ox 100% ; vc1 02:00 BP 126 / 79; Pulse 87; Resp 11; Pulse Ox 100% ; vc1 00:03 Pain Scale: Adult ap3 ED Course: 06/11 23:53 Patient arrived in ED. ag3 23:55 Cat Chino FNP-C is PHCP. snw 23:55 Chet Mullen DO is Attending Physician. snw 06/12 00:05 Triage completed. ap3 00:06 Arm band placed on right wrist. ap3 00:30 Missed attempt(s): 20 gauge Bleeding controlled, band aid applied, catheter tip intact. vc1 00:40 Inserted saline lock: 20 gauge in right upper arm, using aseptic technique. Blood as6 collected. ultrasound guided, long catheter. 00:46 CBC with Diff Sent. as6 00:46 CMP Sent. as6 00:46 Lipase Sent. as6 00:59 Abdomen 1 View (KUB) XRAY In Process Unspecified. EDMS 00:59 Calcote, Tasneem, RN is Primary Nurse. vc1 01:03 Patient has correct armband on for positive identification. Bed in low position. Call vc1 light in reach. Client placed on continuous cardiac and pulse oximetry monitoring. NIBP monitoring applied. 02:29 Jayy Fernández MD is Referral Physician. snw 02:43 No provider procedures requiring assistance completed. vc1 03:12 IV discontinued, intact, bleeding controlled, No redness/swelling at site. Pressure vc1 dressing applied. Administered Medications: 00:59 Drug: Famotidine IVP 20 mg Route: IVP; Site: right upper arm; vc1 01:00 Drug: Haloperidol IVP 2.5 mg/50 mL 2.5 mg Route: IVP; Site: right upper arm; vc1 01:00 Drug: NS 0.9% IV 1000 ml Route: IV; Rate: 1 bolus; Site: right upper arm; vc1 01:45 Drug: Miralax PO 17 grams Route: PO; vc1 Medication: 03:12 VIS not applicable for this client. vc1 Outcome: 02:31 Discharge ordered by . snw 03:12 Discharged to home via wheelchair, with family. vc1 03:12 Condition: good 03:12 Discharge instructions given to patient, Instructed on discharge instructions, follow up and referral plans. medication usage, Demonstrated understanding of instructions, follow-up care, medications, Prescriptions given X 1. 03:13 Patient left the ED. vc1 Signatures: Dispatcher [employer] EDDC Cat Chino, SERVICENOW ADMINISTRATOR DEVELOPER-C SERVICENOW ADMINISTRATOR DEVELOPER-Csnw Libertad Rodriguez RN RN ap3 Julia Andujar3 Rudy Tomas RN RN as6 Tasneem Rodriguez, TJ RN vc1
--- NOTE | 2023-06-12 02:31 | EDPHYS ---
Physician Documentation [facility] Name: Edwin Young Age: 57 yrs Sex: Male : 1965 Arrival Date: 06/11/2023 Time: 23:52 Bed 20 Private MD: ED Physician Chet Mullen HPI: 06/12 01:11 This 57 yrs old Black Male presents to ER via Wheelchair with complaints of Rectal snw Pain, Leg Pain, Abdominal Pain. 01:11 The patient presents to the emergency department with pain in the rectal area. Onset: snw The symptoms/episode began/occurred acutely. Associate signs and symptoms: Pertinent positives: abdominal pain in the suprapubic area, right lower quadrant and left lower quadrant. The patient has experienced similar episodes in the past. It is unknown whether or not the patient has recently seen a physician. pt was supposed to f/u with colorectal but lost insurance, will regain insurance next month, has seen Dr. Fernández in the interim . Historical: - Allergies: 00:05 No Known Allergies; ap3 - PMHx: 00:05 CHEMO; CHF; colon cancer; Gout; Hypertension; ap3 - PSHx: 00:05 Colostomy; L nephrostomy; ap3 - Immunization history:: Client reports receiving the 2nd dose of the Covid vaccine. - Social history:: Smoking status: Patient denies any tobacco usage or history of. ROS: 01:03 Constitutional: Negative for fever, chills, and weight loss, Eyes: Negative for injury, snw pain, redness, and discharge, ENT: Negative for injury, pain, and discharge, Neck: Negative for injury, pain, and swelling, Cardiovascular: Negative for chest pain, palpitations, and edema, Respiratory: Negative for shortness of breath, cough, wheezing, and pleuritic chest pain, : Negative for injury, bleeding, discharge, and swelling, MS/Extremity: Negative for injury and deformity, Skin: Negative for injury, rash, and discoloration, Neuro: Negative for headache, weakness, numbness, tingling, and seizure, Psych: Negative for depression, anxiety, suicide ideation, homicidal ideation, and hallucinations. 01:03 Abdomen/GI: Positive for abdominal pain, rectal pain. 01:03 Back: Positive for pain at rest. Exam: 00:59 Head/Face: Normocephalic, atraumatic. Eyes: Pupils equal round and reactive to light, snw extra-ocular motions intact. Lids and lashes normal. Conjunctiva and sclera are non-icteric and not injected. Cornea within normal limits. Periorbital areas with no swelling, redness, or edema. ENT: Nares patent. No nasal discharge, no septal abnormalities noted. Tympanic membranes are normal and external auditory canals are clear. Oropharynx with no redness, swelling, or masses, exudates, or evidence of obstruction, uvula midline. Mucous membranes moist. Neck: Trachea midline, no thyromegaly or masses palpated, and no cervical lymphadenopathy. Supple, full range of motion without nuchal rigidity, or vertebral point tenderness. No Meningismus. Chest/axilla: Normal chest wall appearance and motion. Nontender with no deformity. No lesions are appreciated. Cardiovascular: Regular rate and rhythm with a normal S1 and S2. No gallops, murmurs, or rubs. Normal PMI, no JVD. No pulse deficits. Respiratory: Lungs have equal breath sounds bilaterally, clear to auscultation and percussion. No rales, rhonchi or wheezes noted. No increased work of breathing, no retractions or nasal flaring. Skin: Warm, dry with normal turgor. Normal color with no rashes, no lesions, and no evidence of cellulitis. MS/ Extremity: Pulses equal, no cyanosis. Neurovascular intact. Full, normal range of motion. Neuro: Awake and alert, GCS 15, oriented to person, place, time, and situation. Cranial nerves II-XII grossly intact. Motor strength 5/5 in all extremities. Sensory grossly intact. Cerebellar exam normal. Normal gait. 00:59 Constitutional: The patient appears alert, awake, anxious, uncomfortable. 00:59 Back: left nephrostomy tube. 00:59 Psych: Behavior/mood is pleasant, anxious, Affect is calm. Vital Signs: 00:03 BP 132 / 90; Pulse 129; Resp 18; Temp 97.8; Pulse Ox 99% ; Pain 10/10; ap3 01:00 BP 145 / 99; Pulse 116; Resp 15; Pulse Ox 100% ; vc1 02:00 BP 126 / 79; Pulse 87; Resp 11; Pulse Ox 100% ; vc1 00:03 Pain Scale: Adult ap3 MDM: 00:07 Patient medically screened. snw 02:32 Differential diagnosis: fistula, gas, constipation, anemia. Data reviewed: vital signs, snw nurses notes, lab test result(s), radiologic studies. I considered the following discharge prescriptions or medication management in the emergency department Medications were administered in the Emergency Department. See MAR. Care significantly affected by the following chronic conditions: Hypertension, Congestive Heart Failure, Cancer, Chronic Kidney Disease. Counseling: I had a detailed discussion with the patient and/or guardian regarding the historical points, exam findings, and any diagnostic results supporting the discharge/admit diagnosis, lab results, radiology results, the need for outpatient follow up, for definitive care, to return to the emergency department if symptoms worsen or persist or if there are any questions or concerns that arise at home. Response to treatment: the patient's symptoms have markedly improved after treatment. Special discussion: Based on the patient's Hx, exam, and Dx evaluation, there is no indication for emergent surgery or inpatient Tx. It is understood by the patient/guardian that if the Sx's persist or worsen they need to return immediately for re-evaluation. Based on the history and exam findings, there is no indication for further emergent testing or inpatient evaluation. I discussed with the patient/guardian the need to see the general surgeon for further evaluation of the symptoms. 06/12 00:06 Order name: CBC with Diff; Complete Time: 02:34 snw 06/12 00:06 Order name: CMP; Complete Time: 01:37 snw 06/12 00:06 Order name: Lipase; Complete Time: 01:37 snw 06/12 01:45 Order name: Manual Differential; Complete Time: 02:34 EDMS 06/12 00:07 Order name: Abdomen 1 View (KUB) XRAY snw 06/12 00:06 Order name: IV Saline Lock; Complete Time: 00:46 snw 06/12 00:06 Order name: Labs collected and sent; Complete Time: 00:46 snw Administered Medications: 00:59 Drug: Famotidine IVP 20 mg Route: IVP; Site: right upper arm; vc1 01:00 Drug: Haloperidol IVP 2.5 mg/50 mL 2.5 mg Route: IVP; Site: right upper arm; vc1 01:00 Drug: NS 0.9% IV 1000 ml Route: IV; Rate: 1 bolus; Site: right upper arm; vc1 01:45 Drug: Miralax PO 17 grams Route: PO; vc1 Disposition: 01:30 Co-signature as Attending Physician, Chet Mullen DO I was immediately available on-site ms3 in the Emergency Department for consultation in the care of the patient. Disposition Summary: 06/12/23 02:31 Discharge Ordered Location: Home snw Condition: Stable snw Diagnosis - Hypertensive heart and chronic kidney disease with heart failure and stage 1 snw through stage 4 chronic kidney disease, or unspecified chronic kidney disease - Anemia in chronic kidney disease snw - Constipation, unspecified snw Followup: snw - With: Emergency Department - When: As needed - Reason: Worsening of condition Followup: snw - With: Jayy Fernández MD - When: 1 - 2 days - Reason: Recheck today's complaints, Continuance of care, Re-evaluation by your physician Discharge Instructions: - Discharge Summary Sheet snw - Anemia snw - Constipation, Adult snw - Chronic Kidney Disease, Adult, [id number] snw - Eating Plan for Dialysis snw Forms: - Medication Reconciliation Form snw - Thank You Letter snw - Antibiotic Education snw - Prescription Opioid Use snw - Patient Portal Instructions snw - Leadership Thank You Letter snw Prescriptions: - Protonix 40 mg Oral Tablet - take 1 tablet by ORAL route once daily; 30 tablet; Refills: 0, Product snw Selection Permitted Signatures: Dispatcher [employer] EDMS Cat Chino, INSPECTOR SALVAGE-C INSPECTOR SALVAGE-Csnw Libertad Rodriguez, RN RN ap3 Chet Mullen DO DO ms3 Tasneem Rodriguez, RN RN vc1 Corrections: (The following items were deleted from the chart) 01:42 00:06 Abdomen Pelvis W Con+CT.RAD.BRZ ordered. EDMS EDMS
[2023-06-12 02:33] LABS: Anisocytosis 1+; Blood Morphology Comment NOTED (NOT SEEN); Hypochromasia 1+
[2023-06-12 02:34] LABS: Platelet Estimate ADEQ
[2023-06-12 03:25] VITALS: TEMP 97.8
[2023-06-12 03:29] VITALS: O2SAT 100
[2023-06-12 03:34] VITALS: BP 126/79
--- NOTE | 2023-06-13 11:50 | RAD REPORT ---
EXAM DESCRIPTION: RAD - Abdomen 1 View (KUB) - 06/12/2023 12:57 am CLINICAL HISTORY: PAIN TECHNIQUE: Frontal supine view of the abdomen/pelvis. COMPARISON: XR Abdomen dated 10/21/2021 FINDINGS: Gastrointestinal tract: Moderate stool throughout the large bowel. Gas is seen to the level of the rectum. No small bowel dilation. Organs: Left abdominal percutaneous nephrostomy. Bones/joints: Multilevel spondylosis. No acute fracture. IMPRESSION: Nonobstructive bowel gas pattern. Moderate stool. Electronically signed by: Boris Cordova MD 06/12/2023 1:14 AM CDT Due to temporary technical issues with the PACS/Fluency reporting system, reports are being signed by the in house radiologists without review as a courtesy to insure prompt reporting. The interpreting radiologist is fully responsible for the content of the report.
== END 2023-06-12 03:13 | disposition home or self-care (01) ==
LOC: ER 23:52
DX: K59.00 Constipation, unspecified (principal); I12.9 Hypertensive chronic kidney disease with stage 1 through stage 4 chronic kidney disease, or unspecified chronic kidney disease; N18.4 Chronic kidney disease, stage 4 (severe); D63.1 Anemia in chronic kidney disease; Z85.038 Personal history of other malignant neoplasm of large intestine
CPT/HCPCS: 85025; 36415; 83690; 80053; 74018; 96375; 96374; 99284; J1630; J7030

== ENCOUNTER 2023-08-01 20:20 | Emergency (ER) | payer OTHER ==
--- OUTSIDE RECORDS SUMMARY | 2023-08-01 20:26 | XMS REPORT | Continuity of Care Document ---
:1965 Author Organization [facility] t Address [address] [facility] [address] [place] [address] Care Team Providers Name Role Phone David Walter Primary Care Physician Tarsha Mancera Attending Clinician Unavailable Parker Dietrich RN Attending Clinician Unavailable Derrick Holt MD Attending Clinician Nilam Lipscomb MA Attending Clinician Unavailable Samantha PRINCE, Gume Laird Attending Clinician [phone] Nils Cowan MD Attending Clinician Lex Asif MD Attending Clinician Michel Rdz Attending Clinician Unavailable Lalo Ruiz Attending Clinician Unavailable Jean CarlosK Attending Clinician Unavailable Clayton Dale MD Attending Clinician Eladio Stafford MD Attending Clinician Shanika Fritz MD Attending Clinician Chris Sibley Attending Clinician SHERYL CHARLES Attending Clinician Unavailable SHERYL CHARLES Attending Clinician Unavailable Seymour Sales Attending Clinician Unavailable [email or web address] Attending Clinician Unavailable Doctor Unassigned, [place] Attending Clinician Unavailable Lesterrefior Parviz PARMAR Attending Clinician Rhys Grmaajo MD Attending Clinician [phone] JENNY ULLOA Attending Clinician Unavailable MD DALLIN CARD Attending Clinician Unavailable MD RHYS GRAMAJO Attending Clinician Unavailable JONATHAN COVINGTON Attending Clinician Unavailable Bro Vargas Admitting Clinician Unavailable LEX ASIF Admitting Clinician Unavailable Michel Rdz Admitting Clinician Unavailable Seymour Sales Admitting Clinician Unavailable SHERYL CHARLES Admitting Clinician Unavailable Nickell_K Admitting Clinician Unavailable ELADIO STAFFORD Admitting Clinician Unavailable [email or web address] Admitting Clinician Unavailable NILS COWAN Admitting Clinician Unavailable KNOW, DOES_NOT Admitting Clinician Unavailable DALLIN CARD Admitting Clinician Unavailable MD DALLIN CARD Admitting Clinician Unavailable MD NILS COWAN Admitting Clinician Unavailable Payers Payer Name Policy Type Policy Number Effective Date Expiration Date [id number] [place] REPLAC[place] - HMO) [facility] PL[facility] [id number] 2022 00:00:00 [facility] [id number] (HMO) Problems Condition Condition Condition Status Onset Resolution Last Treating Co mments Source Name Details Category Date Date Treatment Clinician Date Hyperkalem Hyperkalem Disease Active M ethodi ia ia 06-26 00:00: Hospita 00 l Pyelonephr Pyelonephr Disease Active M ethodi itis itis 6 st 00:00: Hospita 00 l Diarrhea Diarrhea [...] Known DA Active U [facility] Allergie 4-12 Clear s 00:00: Li 00 [facility] No Known DA Active U 2020-10 [facility] 1-24 [facility] [facility] NO KNOWN Drug Active Univers ALLERGIE Class ity of S [facility] Social History Social Habit Start Date Stop Date Quantity Comments Source History SDOH Muslim Alcohol Std Drinks Hospit al History SDOH Muslim Alcohol Binge Hospital Gender identity [facility] Sexual orientation [facility] History of Social 2023-06-30 2023-06-[address] function 00:00:00 00:00:00 Hospital Alcohol intake 2023-03-22 2023-03-22 Lifetime Muslim 00:00:00 00:00:00 non-drinker Hospital (finding) Exposure to 2022-12-05 2022-12-15 Not sure University of SARS-CoV-2 (event) 00:00:00 15:34:00 [facility] Tobacco use and 2021-08-01 2021-08-01 Smokeless Muslim exposure 00:00:00 00:00:00 tobacco non-user Hospital History SDOH 2021-08-01 2021-08-01 1 Muslim Alcohol Frequency 00:00:00 00:00:00 Hospita l Sex Assigned At [birth year] Muslim 00:00:00 00:00:00 Hospital Smoking Status Start Date Stop Date Source Never smoked tobacco Muslim H ospital Medications Ordered Filled Start Stop Current Ordering Indication Dosage Frequency Signature Comments Components Source Medication Medication Date Date Medication? Clinician (SIG) Name Name HYDROcodone 2022-10 Yes [id number] 1{tbl} Q6H Take 1 M ethodi -acetaminop 0-[address] zak (NORCO) 00:00: mouth Hospi ta 7.5-325 mg 00 every 6 l per tablet (six) hours as needed for moderate pain .chronic pain. Max Daily Amount: 4 tablets tamsulosin Yes .4mg QD Take 1 Metho di (FLOMAX) 9-[address] 0.4 mg 18:28: (0.4 mg Hospita capsule 08 total) by l mouth daily. regorafenib 2022- No 160mg QD Take 4 Me thodi (STIVARGA) -17 -[address] 40 mg chemo 18:28: 00:00 (160 mg Ho spita tablet 08 :00 total) by l mouth daily. polyethylen 2022- Yes 17g QD Take 17 g Methodi e glycol 17 10-[address] (MIRALAX) 00:00: 04:59 daily for Ho spita 17 gram 00 :00 30 days. l packet furosemide 2022- No 40mg QD Take 1 Meth cordelia (LASIX) 40 16 -16 tablet (40 st mg tablet 19:35: 00:00 mg total) Ho spita 03 :00 by mouth l daily. carvediloL Yes 25mg QD Take 1 Metho di (COREG) 25 -16 tablet (25 st MG tablet 19:34: mg total) Hos caity 58 by mouth l daily. morPHINE Yes [id number] 15mg Q.5D Take 1 Method i (MS CONTIN) 9-16 tablet (15 st 15 MG 12 hr 00:00: mg total) H ospita tablet 00 by mouth l every 12 (twelve) hours .chronic pain. Max Daily Amount: 30 mg morPHINE 2022-0 Yes [id number] 15mg Q4H Take 1 Method i immediate-r 9-16 tablet (15 st elease 15 00:00: mg total) Hos caity MG tablet 00 by mouth l every 4 (four) hours as needed for severe pain .acute pain, chronic pain. Max Daily Amount: 90 mg HYDROcodone Yes [id number] 1{tbl} Q4H Take 1 M ethodi -acetaminop 9-[address] hen (NORCO) 00:00: mouth Hospi ta 10-325 mg 00 every 4 l per tablet (four) hours as needed for moderate pain .acute pain. Max Daily Amount: 6 tablets ondansetron 2022- No 8mg Q8H Take 1 Met hodi (Zofran) 8 -16 10-17 tablet (8 st MG tablet 00:00: 04:59 mg total) Ho spita 00 :00 by mouth l every 8 (eight) hours as needed for nausea or vomiting for up to 30 days. HYDROcodone 2022-0 2022- No 1{tbl} Q6H Take 1 M ethodi -acetaminop 06-[address] hen (NORCO) 00:00: 00:00 mouth Hosp cristy 10-325 mg 00 :00 every 6 l per tablet (six) hours. carvediloL 2023-0 Yes 25mg QD Take 1 Metho di (COREG) 25 6-14 tablet (25 st MG tablet 19:03: mg total) Hos caity 05 by mouth l daily. carvediloL 2023-0 Yes 25mg QD Take 1 Metho di (COREG) 25 6-14 tablet (25 st MG tablet 19:03: mg total) Hos caity 05 by mouth l daily. carvediloL 2023-0 Yes 25mg QD Take 1 Metho di (COREG) 25 6-14 tablet (25 st MG tablet 19:03: mg total) Hos caity 05 by mouth l daily. carvediloL 2023-0 Yes 25mg QD Take 1 Metho di (COREG) 25 6-14 tablet (25 st MG tablet 19:03: mg total) Hos caity 05 by mouth l daily. carvediloL 2023-0 Yes 25mg QD Take 1 Metho di (COREG) 25 6-14 tablet (25 st MG tablet 19:03: mg total) Hos caity 05 by mouth l daily. carvediloL 2023-0 Yes 25mg QD Take 1 Metho di (COREG) 25 6-14 tablet (25 st MG tablet 19:03: mg total) Hos caity 05 by mouth l daily. carvediloL 2023-0 Yes 25mg QD Take 1 Metho di (COREG) 25 6-14 tablet (25 st MG tablet 19:03: mg total) Hos caity 05 by mouth l daily. ertapenem 1 2022-0 2022- No 1g Q24H [...] daily for 14 days. ertapenem 1 2022-0 3- No 1g Q24H Infuse 1 g Methodi g in sodium 03-[address] chloride 00:00: 04:59 venous Hospit a 0.9 % MBP 00 :00 catheter l 50 mL IVPB daily for 14 days. ertapenem 1 2022-0 3- No 1g Q24H Infuse 1 g Methodi [...] by mouth l daily. linezolid 2023-0 2023- No 600mg Q.5D Take 1 Meth cordelia (ZYVOX) 600 6-28 03-[address] mg tablet 00:00: 04:59 (600 mg Hosp cristy 00 :00 total) by l mouth 2 (two) times a day for 14 days. linezolid 2023-0 2023- No 600mg Q.5D Take 1 Meth cordelia (ZYVOX) 600 6-28 03-[address] mg tablet 00:00: 04:59 [...] Take 1 Meth cordelia (ZYVOX) 600 -28 03-[address] mg tablet 00:00: 04:59 (600 mg Hosp cristy 00 :00 total) by l mouth 2 (two) times a day for 14 days. linezolid 2023-0 2023- No 600mg Q.5D Take 1 Meth cordelia (ZYVOX) 600 6-28 03-[address] mg tablet 00:00: 04:59 (600 mg Hosp cristy 00 :00 total) by l mouth 2 (two) times a day for 14 days. linezolid 2023-0 2023- No 600mg Q.5D Take 1 Meth cordelia (ZYVOX) 600 6-28 03-[address] mg tablet 00:00: 04:59 (600 mg Hosp cristy 00 :00 total) by l mouth 2 (two) times a day for 14 days. linezolid 2023-0 2023- No 600mg Q.5D Take 1 Meth cordelia (ZYVOX) 600 -28 03-[address] mg tablet 00:00: 04:59 (600 mg Hosp cristy 00 :00 total) by l mouth 2 (two) times a day for 14 days. carvedilol 2023-0 2023- No 20mg Take 1 Univ ers 20 mg 24 hr 3-02 03-02 capsule by i ty of capsule 16:06: 00:00 mouth in [place] 28 :00 the Medical morning. Branch carvedilol 2023-0 2023- No 20mg Take 1 Univ ers 20 mg 24 hr 3-02 03-02 capsule by i ty of capsule 16:06: 00:00 mouth in [place] 28 :00 the Medical morning. Branch carvedilol 2023-0 Yes [id number] 20mg Take 1 U nivers 20 mg 24 hr 3-02 capsule by it y of capsule 00:00: mouth in [place] 00 the Medical morning. Branch furosemide 3-0 Yes [id number] 40mg Take 1 U nivers 40 mg 3-02 tablet by ity of tablet 00:00: mouth in [place] 00 the Medical morning. Branch carvedilol 2023-0 Yes [id number] 20mg Take 1 U nivers 20 mg 24 hr 3-02 capsule by it y of capsule 00:00: mouth in [place] the Medical morning. Branch furosemide 2023-0 Yes [id number] 40mg Take 1 U nivers 40 mg 3-02 tablet by ity of tablet 00:00: mouth in [place] 00 the Medical morning. Branch carvedilol 2023-0 Yes [id number] 20mg Take 1 U nivers 20 mg 24 hr 3-02 capsule by it y of capsule 00:00: mouth in [place] 00 the Medical morning. Branch furosemide 2023-0 Yes [id number] 40mg Take 1 U nivers 40 mg 3-02 tablet by ity of tablet 00:00: mouth in [place] 00 the Medical morning. Branch carvedilol 2023-0 Yes [id number] 20mg Take 1 U nivers 20 mg 24 hr 3-02 capsule by it y of capsule 00:00: mouth in [place] the Medical morning. Branch furosemide 2023-0 Yes [id number] 40mg Take 1 U nivers 40 mg 3-02 tablet by ity of tablet 00:00: mouth in [place] the Medical morning. Branch carvedilol 2023-0 Yes [id number] 20mg Take 1 U nivers 20 mg 24 hr 3-02 capsule by it y of capsule 00:00: mouth in [place] the Medical morning. Branch furosemide 2023-0 Yes [id number] 40mg Take 1 U nivers 40 mg 3-02 tablet by ity of tablet 00:00: mouth in [place] the Medical morning. Branch amoxicillin 2023-0 Yes 875mg Take 1 Uni vers 875 mg 2-24 tablet by ity of tablet 00:00: mouth [place] 00 every 12 Medical (twelve) Branch hours. amoxicillin 2023-0 Yes 875mg Take 1 Uni vers 875 mg 2-24 tablet by ity of tablet 00:00: mouth [place] 00 every 12 Medical (twelve) Branch hours. amoxicillin 2023-0 Yes 875mg Take 1 Uni vers 875 mg 2-24 tablet by ity of tablet 00:00: mouth [place] 00 every 12 Medical (twelve) Branch hours. amoxicillin 2023-0 Yes 875mg Take 1 Uni vers 875 mg 2-24 tablet by ity of tablet 00:00: mouth [place] 00 every 12 Medical (twelve) Branch hours. [...] a day for 30 days. carvediloL 2022-0 2023- No 12.5mg Q.5D Take 1 Me [...] Q.5D Take 1 Me thodi (COREG) -18 02-[address] 12.5 MG 00:00: 05:59 (12.5 [...] ity of tablet 00:00: 00:00 mouth in [place] 00 :00 the Medical morning. Branch furosemide 2021-10- No 40mg Take 1 Univ ers 40 mg 12-07 tablet by ity of tablet 00:00: 00:00 mouth in [place] 00 :00 the Medical morning. Branch No known 2020-10 No No known Metho di medications 0-[address] 15:12: s Hospita 13 l No known 2020-10 No No known Metho di medications 0-[address] 15:12: s Hospita 13 l No known 2020-10 No No known Metho di medications 0-[address] 15:12: s Hospita 13 l Immunizations Ordered Filled Immunization Date Status Comments [facility] e Immunization Name Name FLUCELVAX QUAD PF 2021-07-05 Completed [...] Methodi st 00:00:00 Hospital FLUCELVAX QUAD PF Unknown Completed [facility] Vital Signs Vital Name Observation Time Observation Value Comments Source Systolic blood 2022-12-15 21:45:00 126 mm[Hg] Univer sity of pressure [facility] Diastolic blood 2022-12-15 21:45:00 86 mm[Hg] Unive rsity of pressure [facility] Heart rate 2022-12-15 21:45:00 104 /min [facility] Body temperature 2022-12-15 21:45:00 35.94 [facility] Body height 2022-12-15 21:45:00 188 cm [facility] Body weight 2022-12-15 21:45:00 106.595 kg [facility] BMI 2022-12-15 21:45:00 30.17 kg/m2 [facility] Oxygen saturation in 2022-12-15 21:45:00 97 /min [facility] Arterial blood by [facility] Pulse oximetry [place] Oxygen saturation in 2023-07-01 20:39:20 97 /min [facility] Arterial blood by Pulse oximetry Systolic blood 2023-07-01 20:39:20 104 mm[Hg] Method [facility] pressure Diastolic blood 2023-07-01 20:39:20 64 mm[Hg[facility] Heart rate 2023-07-01 20:39:20 78 /min [facility] Body temperature 2023-07-01 20:39:20 37.06 Mary Carmen [facility] Respiratory rate 2023-07-01 20:39:20 18 /min [facility] Body weight 2023-06-27 08:29:31 85.548 kg [facility] BMI 2023-06-27 08:29:31 24.21 kg/m2 [facility] Body height 2023-06-26 20:43:00 188 cm [facility] Systolic blood 2023-03-28 21:07:06 122 mm[Hg] Method ist Hospital pressure Diastolic blood 2023-03-28 21:07:06 78 mm[Hg] [facility] pressure Heart rate 2023-03-28 21:07:06 84 /min [facility] Body temperature 2023-03-28 21:07:06 36.17 Mary Carmen [facility] Respiratory rate 2023-03-28 21:07:06 18 /min [facility] Oxygen saturation in 2023-03-28 21:07:06 97 /min [facility] Arterial blood by Pulse oximetry Body height 2023-03-23 00:01:00 188 cm [facility] Body weight 2023-03-23 00:01:00 113.399 kg [facility] BMI 2023-03-23 00:01:00 32.10 kg/m2 [facility] Systolic blood 2022-11-02 13:50:01 147 mm[Hg] [facility] pressure Diastolic blood 2022-11-02 13:50:01 87 mm[Hg] [facility] pressure Heart rate 2022-11-02 13:50:01 90 /min [facility] Body temperature 2022-11-02 13:50:01 36 Mary Carmen [facility] Respiratory rate 2022-11-02 13:50:01 18 /min [facility] Oxygen saturation in 2022-11-02 13:50:01 99 /min [facility] Arterial blood by Pulse oximetry Body height 2022-10-25 11:00:00 188 cm [facility] Body weight 2022-10-25 11:00:00 113.399 kg [facility] BMI 2022-10-25 11:00:00 32.10 kg/m2 [facility] Procedures Procedure Date / Time Performing Clinician Source Performed POC GLUCOSE 2023-07-01 19:33:00 [facility] POC GLUCOSE 2023-07-01 18:13:00 [facility] CBC WITH PLATELET AND 2023-07-01 13:43:00 Derrick Holt [facility] DIFFERENTIAL POC GLUCOSE 2023-07-01 12:59:00 [facility] 2023-07-01 08:54:00 [facility] BASIC METABOLIC PANEL 2023-07-01 08:54:00 [facility] ESTIMATED GFR 2023-07-01 08:54:00 [facility] POC GLUCOSE 2023-07-01 01:59:00 [facility]SE 2023-06-30 22:47:00 [facility] POC GLUCOSE 2023-06-30 17:45:00 [facility] POC GLUCOSE 2023-06-30 13:43:00 [facility] COMPREHENSIVE METABOLIC 2023-06-30 13:08:00 [facility] 2023-06-30 13:08:00 Hang [facility] CBC HEMOGRAM 2023-06-30 09:00:00 Roula Howardwe [facility] POC GLUCOSE 2023-06-30 02:17:00 Hang, [facility] POC GLUCOSE 2023-06-29 23:06:00 Charlotte, [facility] POC GLUCOSE 2023-06-29 18:32:00 [facility] 2023-06-29 14:09:00 [facility] CBC WITH PLATELET AND 2023-06-29 10:02:00 Camryn [facility] DIFFERENTIAL COMPREHENSIVE METABOLIC 2023-06-29 10:02:00 Camryn [facility] PANEL NT-PROBNP 2023-06-29 10:02:00 [facility] CARCINOEMBRYONIC ANTIGEN 2023-06-29 10:02:00 Derrick Holt [facility] ([facility] ESTIMATED GFR 2023-06-29 10:02:00 [facility] URIC ACID LEVEL 2023-06-29 10:02:00 Derrick Holt spital SMEAR REVIEW 2023-06-29 10:02:00 Camryn greer English spital POC GLUCOSE 2023-06-29 07:07:00 [facility] 2023-06-28 17:55:00 [facility] TYPE AND SCREEN 2023-06-28 16:14:00 Derrick Holt spital PREPARE RBC 2023-06-28 16:14:00 Derrick Holt Ho spital BASIC METABOLIC PANEL 2023-06-28 16:12:00 [facility] ESTIMATED GFR 2023-06-28 16:12:00 [facility] POC GLUCOSE 2023-06-28 16:11:00 [facility] VENOUS BLOOD GAS 2023-06-28 15:36:00 [facility] POC GLUCOSE 2023-06-28 15:35:00 [facility] PHOSPHORUS LEVEL 2023-06-28 15:09:00 [facility] NT-PROBNP 2023-06-28 15:09:00 [facility] BETA HYDROXYBUTYRATE 2023-06-28 15:09:00 [facility] POC GLUCOSE 2023-06-28 13:52:00 [facility] CBC WITH PLATELET AND 2023-06-28 10:16:00 Camryn [facility] DIFFERENTIAL COMPREHENSIVE METABOLIC 2023-06-28 10:16:00 Camryn [facility] PANEL ESTIMATED GFR 2023-06-28 10:16:00 Nils Cowan [facility] spital PHOSPHORUS LEVEL 2023-06-28 10:16:00 Nils Cowanist H ospital POC GLUCOSE 2023-06-28 02:24:00 [facility] POC GLUCOSE 2023-06-27 18:17:00 [facility] SODIUM LEVEL, URINE, RANDOM 2023-06-27 13:39:00 [facility] CHLORIDE LEVEL, URINE, 2023-06-27 13:39:00 [facility] RANDOM PROTEIN, URINE, RANDOM 2023-06-27 13:39:00 [facility] ALBUMIN WITH CREATININE AND 2023-06-27 13:39:00 [facility] RATIO, RANDOM URINE CREATININE LEVEL, URINE, 2023-06-27 13:39:00 [facility] RANDOM OSMOLALITY, URINE 2023-06-27 13:39:00 [facility] POC GLUCOSE 2023-06-27 13:34:00 Nils Cowanist Ho spital CBC WITH PLATELET AND 2023-06-27 09:23:00 Camryn [facility] DIFFERENTIAL COMPREHENSIVE METABOLIC 2023-06-27 09:23:00 Camryn [facility] PANEL ESTIMATED GFR 2023-06-27 09:23:00 CamrynNils spital POC GLUCOSE 2023-06-27 05:05:00 Camryn, greer [facility] spital RESPIRATORY PATHOGEN PANEL 2023-06-27 04:08:00 [facility] WITH COVID-19 RT-PCR Eitan LACTIC ACID LEVEL, SEPSIS - 2023-06-27 04:08:00 [facility] NOW AND REPEAT 2X EVERY 3 Chana HOURS POC GLUCOSE 2023-06-27 03:54:00 CamrynNils Ho spital POC GLUCOSE 2023-06-27 03:26:00 [facility] 12-LEAD 2023-06-27 02:49:22 [facility] ECG ED PRELIMINARY 2023-06-27 02:43:49 [facility] INTERPRETATION Chana CT RENAL STONE PROTOCOL 2023-06-27 01:25:47 [facility] Chana URINE CULTURE 2023-06-26 23:55:00 [facility] WITH PLATELET AND 2023-06-26 23:37:00 [facility] DIFFERENTIAL Eitan COMPREHENSIVE METABOLIC 2023-06-26 23:37:00 [facility] PANEL Eitan LIPASE LEVEL 2023-06-26 23:37:00 [facility] ospital [facility] URINALYSIS SCREEN AND 2023-06-26 23:37:00 [facility] MICROSCOPY, WITH REFLEX TO Eitan CULTURE LACTIC ACID LEVEL, SEPSIS - 2023-06-26 23:37:00 [facility] NOW AND REPEAT 2X EVERY 3 Chana HOURS ESTIMATED GFR 2023-06-26 23:37:00 [facility] [id number] 2023-06-14 00:00:00 KAREN.[email or web address] [facility] [id number] 2023-06-14 00:00:00 KAREN.[email or web address] [facility] PICC INSERTION REQUEST 2023-03-28 14:05:23 Justa Winter [facility] CBC WITH PLATELET AND 2023-03-28 10:15:00 Maryjo, Chris [facility] DIFFERENTIAL BASIC METABOLIC PANEL 2023-03-28 10:15:00 [facility] ESTIMATED GFR 2023-03-28 10:15:00 [facility] CBC WITH PLATELET AND 2023-03-27 09:08:00 [facility] DIFFERENTIAL BASIC METABOLIC PANEL 2023-03-27 09:08:00 [facility] VANCOMYCIN LEVEL, RANDOM 2023-03-27 09:08:00 [facility] ESTIMATED GFR 2023-03-27 09:08:00 [facility] CBC WITH PLATELET AND 2023-03-26 09:53:00 [facility] DIFFERENTIAL BASIC METABOLIC PANEL 2023-03-26 09:53:00 [facility] ESTIMATED GFR 2023-03-26 09:53:00 [facility] CBC WITH PLATELET AND 2023-03-25 09:05:00 [facility] DIFFERENTIAL BASIC METABOLIC PANEL 2023-03-25 09:05:00 [facility] ESTIMATED GFR 2023-03-25 09:05:00 [facility] MANUAL DIFFERENTIAL 2023-03-25 09:05:00 [facility] CBC WITH PLATELET AND 2023-03-24 16:23:00 Adelita Rich [facility] DIFFERENTIAL BASIC METABOLIC PANEL 2023-03-24 16:23:00 Adelita Rich [facility] ESTIMATED GFR 2023-03-24 16:23:00 [facility] TRANSFUSE RED BLOOD CELLS 2023-03-23 16:26:00 [facility] TRANSFUSE RED BLOOD CELLS 2023-03-23 12:38:00 [facility] TYPE AND SCREEN 2023-03-23 10:11:00 [facility] PREPARE RBC 2023-03-23 10:11:00 [facility] CBC WITH PLATELET AND 2023-03-23 09:33:00 [facility] DIFFERENTIAL COMPREHENSIVE METABOLIC 2023-03-23 09:33:00 [facility] PANEL ESTIMATED GFR 2023-03-23 09:33:00 [facility] MANUAL DIFFERENTIAL 2023-03-23 09:33:00 [facility] ESTIMATED GFR 2023-03-23 08:45:00 [facility] TROPONIN T 2023-03-23 03:03:00 [facility] LACTIC ACID LEVEL, SEPSIS - 2023-03-23 03:03:00 [facility] NOW AND REPEAT 2X EVERY 3 HOURS CREATININE LEVEL, URINE, 2023-03-23 01:44:00 [facility] RANDOM SODIUM LEVEL, URINE, RANDOM 2023-03-23 01:44:00 [facility] PROTEIN, URINE, RANDOM 2023-03-23 01:44:00 [facility] URINE CULTURE 2023-03-23 00:49:00 [facility] URINALYSIS SCREEN AND 2023-03-23 00:24:00 [facility] MICROSCOPY, WITH REFLEX TO CULTURE LACTIC ACID LEVEL, SEPSIS - 2023-03-22 23:45:00 [facility] NOW AND REPEAT 2X EVERY 3 HOURS COMPREHENSIVE METABOLIC 2023-03-22 23:27:00 [facility] PANEL TROPONIN T 2023-03-22 23:27:00 [facility] spital CREATINE KINASE, TOTAL 2023-03-22 23:27:00 [facility] ([facility]) ESTIMATED GFR 2023-03-22 23:27:00 [facility] spital VENOUS BLOOD GAS 2023-03-22 22:41:00 [facility] BLOOD CULTURE, AEROBIC & 2023-03-22 22:29:00 [facility] ANAEROBIC CBC WITH PLATELET AND 2023-03-22 22:27:00 [facility] DIFFERENTIAL LACTIC ACID LEVEL, SEPSIS - 2023-03-22 22:27:00 [facility] NOW AND REPEAT 2X EVERY 3 HOURS MANUAL DIFFERENTIAL 2023-03-22 22:27:00 [facility] XR CHEST 1 VW PORTABLE 2023-03-22 22:00:04 [facility] ECG 12-LEAD 2023-03-22 21:26:46 [facility] spital ESTIMATED GFR 2023-03-22 21:13:00 [facility] spital CT ABDOMEN PELVIS WO 2023-03-22 21:10:07 [facility] CONTRAST [place] CRITICAL CARE 2023-03-22 20:41:38 [facility] ospital ILL/INJURED PATIENT INIT 30-74 MIN ECG ED PRELIMINARY 2023-03-22 20:41:38 [facility] INTERPRETATION CBC WITH PLATELET AND 2022-11-02 11:12:00 Camryn, [facility] DIFFERENTIAL BASIC METABOLIC PANEL 2022-11-02 11:12:00 [facility]FR 2022-11-02 11:12:00 Camryn [facility] spital CBC WITH PLATELET AND 2022-11-01 11:35:00 [facility] DIFFERENTIAL BASIC METABOLIC PANEL 2022-11-01 11:35:00 [facility] ESTIMATED GFR 2022-11-01 11:35:00 Camryn [facility] PROTEIN, URINE, RANDOM 2022-10-31 19:03:00 [facility] ALBUMIN WITH CREATININE AND 2022-10-31 19:03:00 [facility] RATIO, RANDOM URINE CREATININE LEVEL, URINE, 2022-10-31 19:03:00 [facility] RANDOM CBC WITH PLATELET AND 2022-10-31 12:10:00 [facility] DIFFERENTIAL BASIC METABOLIC PANEL 2022-10-31 12:10:00 Camryn, [facility] ESTIMATED GFR 2022-10-31 12:10:00 Camryn greer [facility] spital CBC WITH PLATELET AND 2022-10-30 11:30:00 Camryn, [facility] DIFFERENTIAL BASIC METABOLIC PANEL 2022-10-30 11:30:00 Camryn, [facility] ESTIMATED GFR 2022-10-30 11:30:00 Camryn, [facility] spital CBC WITH PLATELET AND 2022-10-29 11:45:00 Camryn, [facility] DIFFERENTIAL BASIC METABOLIC PANEL 2022-10-29 11:30:00 Camryn, [facility] ESTIMATED GFR 2022-10-29 11:30:00 Camryn greer [facility] spital IR LEFT NEPHROSTOMY INITIAL 2022-10-28 23:27:00 [facility] RIGHT NEPHROSTOGRAM NEW 2022-10-28 23:27:00 Samir Saha [facility] ACCESS CBC WITH PLATELET AND 2022-10-28 11:29:00 Camryn [facility] DIFFERENTIAL COMPREHENSIVE METABOLIC 2022-10-28 11:29:00 Camryn [facility] PANEL ESTIMATED GFR 2022-10-28 11:29:00 Camryn greer [facility] spital ESTIMATED GFR 2022-10-27 12:38:00 [facility] WITH PLATELET AND 2022-10-27 12:38:00 [facility] DIFFERENTIAL COMPREHENSIVE METABOLIC 2022-10-27 12:38:[address] [facility] [place] [place] PANEL BASIC METABOLIC PANEL 2022-10-27 12:38:00 [facility] MRI PELVIS W WO CONTRAST 2022-10-26 16:51:00 Derrick siddiqui [facility] MRI ABDOMEN W WO CONTRAST 2022-10-26 16:40:00 Derrick Holt [facility] COVID-19 QUALITATIVE RT-PCR 2022-10-26 13:42:00 Parviz Jameson [facility] CBC WITH PLATELET AND 2022-10-26 09:30:00 [facility] DIFFERENTIAL COMPREHENSIVE METABOLIC 2022-10-26 09:30:00 Camryn [facility] PANEL PHOSPHORUS LEVEL 2022-10-26 09:30:00 [facility] CARCINOEMBRYONIC ANTIGEN 2022-10-26 09:30:[address] [facility] FERRITIN LEVEL 2022-10-26 09:30:00 Jose De Jesus [facility] spital PROTHROMBIN TIME WITH INR 2022-10-26 09:30:00 Jose De Jesus [facility] ESTIMATED GFR 2022-10-26 09:30:00 Camryn [facility] spital CT CHEST WO CONTRAST 2022-10-25 23:50:23 [facility] 2022-10-25 17:30:04 [facility] URINALYSIS SCREEN AND 2022-10-25 17:01:00 [facility] MICROSCOPY, WITH REFLEX TO CULTURE SODIUM LEVEL, URINE, RANDOM 2022-10-25 17:01:00 [facility] CHLORIDE LEVEL, URINE, 2022-10-25 17:01:00 [facility] RANDOM CREATININE LEVEL, URINE, 2022-10-25 17:01:00 [facility] RANDOM URINE CULTURE 2022-10-25 16:55:[address] [facility] [address] ABDOMEN PELVIS WO 2022-10-25 14:31:42 Rehrer, [facility] CONTRAST CBC WITH PLATELET AND 2022-10-25 12:41:00 Rehrer, [facility] DIFFERENTIAL COMPREHENSIVE METABOLIC 2022-10-25 12:41:00 Rehrer, [facility] PANEL LIPASE LEVEL 2022-10-25 12:41:00 Rehrer, [facility] [place] [place] URINALYSIS SCREEN AND 2022-10-25 12:41:00 Rehrer, [facility] MICROSCOPY, WITH REFLEX TO CULTURE LACTIC ACID LEVEL 2022-10-25 12:41:00 Rehrer, [facility] ESTIMATED GFR 2022-10-25 12:41:00 Amador Beatty Yifan Ayoub URINE CULTURE 2022-10-25 12:30:00 Rehrer, [facility] [place] [place] CT CHEST EXTERNAL STUDY 2022-08-16 16:25:00 Rhys Gramajo [facility] Plan of Care Planned Activity Planned Date Details Comments Source Future Scheduled 2023-08-01 HEPATITIS B VACCINES Met [facility] Test 16:40:08 (1 of 3 - 3-dose series) [code = HEPATITIS B VACCINES (1 of 3 - 3-dose series)] Future Scheduled 2023-08-01 COVID-19 VACCINE (#1) [facility] Test 16:40:08 [code = COVID-19 VACCINE (#1)] Future Scheduled 2023-08-01 Pneumococcal Vaccine: [facility] Test 16:40:08 Pediatrics (0 to 5 Years) and At-Risk Patients (6 to 64 Years) (1 - PCV) [code = Pneumococcal Vaccine: Pediatrics (0 to 5 Years) and At-Risk Patients (6 to 64 Years) (1 - PCV)] Future Scheduled 2023-08-01 Hepatitis C screening [facility] Test 16:40:08 (procedure) [code = [id number]] Future Scheduled 2023-08-01 SHINGLES VACCINES (1 Met [facility] Test 16:40:08 of 2) [code = SHINGLES VACCINES (1 of 2)] Future Scheduled 2023-08-01 INFLUENZA VACCINE (#1) [facility] Test 16:40:08 [code = INFLUENZA VACCINE (#1)] Future Scheduled 2023-08-01 RSV VACCINES > 60 YR Met [facility] Test 16:40:08 (1 - 1-dose 60+ series) [code = RSV VACCINES > 60 YR (1 - 1-dose 60+ series)] Future Scheduled 2023-06-13 Pneumococcal Vaccine: [facility] Test 01:16:35 Pediatrics (0 to 5 Years) and At-Risk Patients (6 to 64 Years) (1 - PCV) [code = Pneumococcal Vaccine: Pediatrics (0 to 5 Years) and At-Risk Patients (6 to 64 Years) (1 - PCV)] Future Scheduled 2023-06-13 Hepatitis C screening [facility] Test 01:16:35 (procedure) [code = [id number]] Future Scheduled 2023-06-13 SHINGLES VACCINES (1 Met [facility] Test 01:16:35 of 2) [code = SHINGLES VACCINES (1 of 2)] Future Scheduled 2023-06-13 COVID-19 VACCINE (5 - [facility] Test 01:16:35 Moderna series) [code = COVID-19 VACCINE (5 - Moderna series)] Future Scheduled 2023-06-13 INFLUENZA VACCINE (#1) [facility] Test 01:16:35 [code = INFLUENZA VACCINE (#1)] Future Scheduled 2023-06-13 Pneumococcal Vaccine: [facility] Test 01:16:35 Pediatrics (0 to 5 Years) and At-Risk Patients (6 to 64 Years) (1 - PCV) [code = Pneumococcal Vaccine: Pediatrics (0 to 5 Years) and At-Risk Patients (6 to 64 Years) (1 - PCV)] Future Scheduled 2023-06-13 Hepatitis C screening [facility] Test 01:16:35 (procedure) [code = [id number]] Future Scheduled 2023-06-13 SHINGLES VACCINES (1 Met [facility] Test 01:16:35 of 2) [code = SHINGLES VACCINES (1 of 2)] Future Scheduled 2023-06-13 COVID-19 VACCINE (5 - [facility] Test 01:16:35 Moderna series) [code = COVID-19 VACCINE (5 - Moderna series)] Future Scheduled 2023-06-13 INFLUENZA VACCINE (#1) [facility] Test 01:16:35 [code = INFLUENZA VACCINE (#1)] Future Scheduled 2023-05-22 Pneumococcal Vaccine: [facility] Test 00:52:43 Pediatrics (0 to 5 Years) and At-Risk Patients (6 to 64 Years) (1 - PCV) [code = Pneumococcal Vaccine: Pediatrics (0 to 5 Years) and At-Risk Patients (6 to 64 Years) (1 - PCV)] Future Scheduled 2023-05-22 Hepatitis C screening [facility] Test 00:52:43 (procedure) [code = [id number]] Future Scheduled 2023-05-22 SHINGLES VACCINES (1 Met [facility] Test 00:52:43 of 2) [code = SHINGLES VACCINES (1 of 2)] Future Scheduled 2023-05-22 COVID-19 VACCINE (5 - [facility] Test 00:52:43 Moderna series) [code = COVID-19 VACCINE (5 - Moderna series)] Future Scheduled 2023-05-22 INFLUENZA VACCINE Method [facility] Test 00:52:43 [code = INFLUENZA VACCINE] Future Scheduled 2023-05-22 Pneumococcal Vaccine: [facility] Test 00:52:43 Pediatrics (0 to 5 Years) and At-Risk Patients (6 to 64 Years) (1 - PCV) [code = Pneumococcal Vaccine: Pediatrics (0 to 5 Years) and At-Risk Patients (6 to 64 Years) (1 - PCV)] Future Scheduled 2023-05-22 Hepatitis C screening [facility] Test 00:52:43 (procedure) [code = [id number]] Future Scheduled 2023-05-22 SHINGLES VACCINES (1 Met [facility] Test 00:52:43 of 2) [code = SHINGLES VACCINES (1 of 2)] Future Scheduled 2023-05-22 COVID-19 VACCINE (5 - [facility] Test 00:52:43 Moderna series) [code = COVID-19 VACCINE (5 - Moderna series)] Future Scheduled 2023-05-22 INFLUENZA VACCINE Method [facility] Test 00:52:43 [code = INFLUENZA VACCINE] Future Scheduled 2023-04-19 Pneumococcal Vaccine: [facility] Test 07:50:51 Pediatrics (0 to 5 Years) and At-Risk Patients (6 to 64 Years) (1 - PCV) [code = Pneumococcal Vaccine: Pediatrics (0 to 5 Years) and At-Risk Patients (6 to 64 Years) (1 - PCV)] Future Scheduled 2023-04-19 Hepatitis C screening [facility] Test 07:50:51 (procedure) [code = [id number]] Future Scheduled 2023-04-19 SHINGLES VACCINES (1 Met [facility] Test 07:50:51 of 2) [code = SHINGLES VACCINES (1 of 2)] Future Scheduled 2023-04-19 COVID-19 VACCINE (5 - [facility] Test 07:50:51 Moderna series) [code = COVID-19 VACCINE (5 - Moderna series)] Future Scheduled 2023-04-19 INFLUENZA VACCINE Method [facility] Test 07:50:51 [code = INFLUENZA VACCINE] Future Scheduled 2023-04-07 Pneumococcal Vaccine: [facility] Test 08:01:08 Pediatrics (0 to 5 Years) and At-Risk Patients (6 to 64 Years) (1 - PCV) [code = Pneumococcal Vaccine: Pediatrics (0 to 5 Years) and At-Risk Patients (6 to 64 Years) (1 - PCV)] Future Scheduled 2023-04-07 Hepatitis C screening [facility] Test 08:01:08 (procedure) [code = [id number]] Future Scheduled 2023-04-07 SHINGLES VACCINES (1 Met [facility] Test 08:01:08 of 2) [code = SHINGLES VACCINES (1 of 2)] Future Scheduled 2023-04-07 COVID-19 VACCINE (5 - [facility] Test 08:01:08 Moderna series) [code = COVID-19 VACCINE (5 - Moderna series)] Future Scheduled 2023-04-07 INFLUENZA VACCINE Method [facility] Test 08:01:08 [code = INFLUENZA VACCINE] Future Scheduled 2023-03-31 Pneumococcal Vaccine: [facility] Test 10:53:42 Pediatrics (0 to 5 Years) and At-Risk Patients (6 to 64 Years) (1 - PCV) [code = Pneumococcal Vaccine: Pediatrics (0 to 5 Years) and At-Risk Patients (6 to 64 Years) (1 - PCV)] Future Scheduled 2023-03-31 Hepatitis C screening [facility] Test 10:53:42 (procedure) [code = 304450208] Future Scheduled 2023-03-31 SHINGLES VACCINES (1 Met [facility] Test 10:53:42 of 2) [code = SHINGLES VACCINES (1 of 2)] Future Scheduled 2023-03-31 COVID-19 VACCINE (5 - [facility] Test 10:53:42 Moderna series) [code = COVID-19 VACCINE (5 - Moderna series)] Future Scheduled 2023-03-31 INFLUENZA VACCINE Method [facility] Test 10:53:42 [code = INFLUENZA VACCINE] Future Scheduled 2023-01-16 Pneumococcal Vaccine: [facility] Test 20:02:08 Pediatrics (0 to 5 Years) and At-Risk Patients (6 to 64 Years) (1 - PCV) [code = Pneumococcal Vaccine: Pediatrics (0 to 5 Years) and At-Risk Patients (6 to 64 Years) (1 - PCV)] Future Scheduled 2023-01-16 Hepatitis C screening [facility] Test 20:02:08 (procedure) [code = [id number]] Future Scheduled 2023-01-16 SHINGLES VACCINES (1 Met [facility] Test 20:02:08 of 2) [code = SHINGLES VACCINES (1 of 2)] Future Scheduled 2023-01-16 COLONOSCOPY SCREENING [facility] Test 20:02:08 [code = COLONOSCOPY SCREENING] Future Scheduled 2023-01-16 COVID-19 VACCINE (5 - [facility] Test 20:02:08 Booster for Moderna series) [code = COVID-19 VACCINE (5 - Booster for Moderna series)] Future Scheduled 2023-01-16 INFLUENZA VACCINE Method [facility] Test 20:02:08 [code = INFLUENZA VACCINE] Future Scheduled 2022-12-06 Pneumococcal Vaccine: [facility] Test 08:31:10 Pediatrics (0 to 5 Years) and At-Risk Patients (6 to 64 Years) (1 - PCV) [code = Pneumococcal Vaccine: Pediatrics (0 to 5 Years) and At-Risk Patients (6 to 64 Years) (1 - PCV)] Future Scheduled 2022-12-06 Hepatitis C screening [facility] Test 08:31:10 (procedure) [code = [id number]] Future Scheduled 2022-12-06 SHINGLES VACCINES (1 Met [facility] Test 08:31:10 of 2) [code = SHINGLES VACCINES (1 of 2)] Future Scheduled 2022-12-06 COLONOSCOPY SCREENING [facility] Test 08:31:10 [code = COLONOSCOPY SCREENING] Future Scheduled 2022-12-06 INFLUENZA VACCINE Method [facility] Test 08:31:10 [code = INFLUENZA VACCINE] Future Scheduled 2022-12-06 COVID-19 VACCINE (5 - [facility] Test 08:31:10 Booster for Moderna series) [code = COVID-19 VACCINE (5 - Booster for Moderna series)] Future Scheduled 2022-11-30 Pneumococcal Vaccine: [facility] Test 08:08:13 Pediatrics (0 to 5 Years) and At-Risk Patients (6 to 64 Years) (1 - PCV) [code = Pneumococcal Vaccine: Pediatrics (0 to 5 Years) and At-Risk Patients (6 to 64 Years) (1 - PCV)] Future Scheduled 2022-11-30 Hepatitis C screening [facility] Test 08:08:13 (procedure) [code = 152779911] Future Scheduled 2022-11-30 SHINGLES VACCINES (1 Met [facility] Test 08:08:13 of 2) [code = SHINGLES VACCINES (1 of 2)] Future Scheduled 2022-11-30 COLONOSCOPY SCREENING [facility] Test 08:08:13 [code = COLONOSCOPY SCREENING] Future Scheduled 2022-11-30 INFLUENZA VACCINE Method is Hospital Test 08:08:13 [code = INFLUENZA VACCINE] Future Scheduled 2022-11-30 COVID-19 VACCINE (5 - [facility] Test 08:08:13 Booster for Moderna series) [code = COVID-19 VACCINE (5 - Booster for Moderna series)] Future Scheduled 2022-11-16 Pneumococcal Vaccine: [facility] Test 08:53:45 Pediatrics (0 to 5 Years) and At-Risk Patients (6 to 64 Years) (1 - PCV) [code = Pneumococcal Vaccine: Pediatrics (0 to 5 Years) and At-Risk Patients (6 to 64 Years) (1 - PCV)] Future Scheduled 2022-11-16 Hepatitis C screening [facility] Test 08:53:45 (procedure) [code = [id number]] Future Scheduled 2022-11-16 SHINGLES VACCINES (1 Met [facility] Test 08:53:45 of 2) [code = SHINGLES VACCINES (1 of 2)] Future Scheduled 2022-11-16 COLONOSCOPY SCREENING [facility] Test 08:53:45 [code = COLONOSCOPY SCREENING] Future Scheduled 2022-11-16 INFLUENZA VACCINE Method is Hospital Test 08:53:45 [code = INFLUENZA VACCINE] Future Scheduled 2022-11-16 COVID-19 VACCINE (5 - [facility] Test 08:53:45 Booster for Moderna series) [code = COVID-19 VACCINE (5 - Booster for Moderna series)] Future Scheduled 2022-09-26 Hepatitis C screening [facility] Test 23:54:04 (procedure) [code = 753907602] Future Scheduled 2022-09-26 COLONOSCOPY SCREENING [facility] Test 23:54:04 [code = COLONOSCOPY SCREENING] Future Scheduled 2022-09-26 SHINGLES VACCINES (1 Met [facility] Test 23:54:04 of 2) [code = SHINGLES VACCINES (1 of 2)] Future Scheduled 2022-09-26 INFLUENZA VACCINE [facility] Test 23:54:04 [code = INFLUENZA VACCINE] Future Scheduled 2022-09-26 COVID-19 VACCINE (5 - Me [facility] Test 23:54:04 Booster for Moderna series) [code = COVID-19 VACCINE (5 - Booster for Moderna series)] Future Scheduled 2022-09-26 Hepatitis C screening [facility] Test 23:54:04 (procedure) [code = 239714997] Future Scheduled 2022-09-26 COLONOSCOPY SCREENING [facility] Test 23:54:04 [code = COLONOSCOPY SCREENING] Future Scheduled 2022-09-26 SHINGLES VACCINES (1 Met [facility] Test 23:54:04 of 2) [code = SHINGLES VACCINES (1 of 2)] Future Scheduled 2022-09-26 INFLUENZA VACCINE [facility] Test 23:54:04 [code = INFLUENZA VACCINE] Future Scheduled 2022-09-26 COVID-19 VACCINE (5 - Me [facility] Test 23:54:04 Booster for Moderna series) [code = COVID-19 VACCINE (5 - Booster for Moderna series)] Future Scheduled 2022-08-26 HEPATITIS B VACCINES Met [facility] Test 02:17:57 (1 of 3 - 3-dose series) [code = HEPATITIS B VACCINES (1 of 3 - 3-dose series)] Future Scheduled 2022-08-26 Hepatitis C screening [facility] Test 02:17:57 (procedure) [code = 199090922] Future Scheduled 2022-08-26 COLONOSCOPY SCREENING [facility] Test 02:17:57 [code = COLONOSCOPY SCREENING] Future Scheduled 2022-08-26 SHINGLES VACCINES (1 Met [facility] Test 02:17:57 of 2) [code = SHINGLES [...] ID 2022-09-15 Inpatient Tarsha Butts [facility] [id number] [facility] [facility] 2022-02-13 Inpatient Tarsha Butts [facility] [id number] [facility] 15[facility]50:[address] [facility] 2022-01-14 Inpatient Tarsha Butts [facility] [id number] [facility] 16:09:[address] [facility] 2023-07-28 2023-07-28 Refill Kaur, 1.2.840.1 [id number] Methodi 00:00:00 00:00:[address] 3.430.2.7 Hospit a .3.575197 l .8 2023-07-28 2023-07-28 Orders Kaur 1.2.840.1 [id number] [id number] Methodi 00:00:00 00:00:00 Only [place] [address].1.[address] 3.430.2.7 Hospit a .3.053397 l .8 2023-07-28 2023-07-28 Telephone Derrick Holt 1.2.840.1 [id number] Methodi 00:00:00 00:00:[address] 3.430.2.7 Hospit a .3.796067 l .8 2023-07-03 2023-07-03 Telephone Ruel 1.2.840.1 [id number] Methodi 00:00:00 00:00:[address] [place] [address] 3.430.2.7 Hospit a .3.129498 l .8 2023-07-03 2023-07-03 Telephone Derrick Holt 1.2.840.1 [id number] Methodi 00:00:00 00:00:[address] 3.430.2.7 Hospit a .3.556942 l .8 2023-07-03 2023-07-03 Telephone Derrick Holt 1.2.840.1 [id number] Methodi 00:00:00 00:00:[address] 3.430.2.7 Hospit a .3.752006 l .8 2023-06-26 2023-07-01 [facility].2.840.1 [id number] Methodi 15:44:00 18:28:00 Encounter Cha [place] [address]30.1.[address] Lex Asif Esteban 3.430.2.7 Hospita .3.045847 l .8 2023-06-26 2023-07-01 [facility] [id number] [address] [place] [address] 00:00:00 00:00:00 L[address] 2023-06-22 2023-06-22 Telephone Derrick Holt 1.2.840.1 [id number] Methodi 00:00:00 00:00:[address] 3.430.2.7 Hospit a .3.468589 l .8 2023-06-14 2023-06-16 Inpatient KADY Rdz [facility].01 [id number] [facility] 15:34:00 12:00:00 Michel 09 [facility] 2023-06-13 2023-06-13 Outpatient Lalo Sierra [facility] RADI LA0 [id number] [facility] 06:45:00 06:45:00 82 [facility] 2023-06-13 2023-06-13 Outpatient EL Lalo Ruiz [facility] RADI LA0 [id number] [facility] 06:45:00 06:45:00 82 [facility] 2023-04-13 2023-04-13 Outpatient EL Lalo Ruiz [facility] RADI LA0 [id number] [facility] 14:47:00 14:47:00 19 [facility] 2023-04-13 2023-04-13 Outpatient Nickell_K U [facility] [id number] [place] 00:00:00 00:00:00 [id number] [facility] 2023-04-09 2023-04-09 Outpatient Nickell_K HMU [facility] [id number] [place] 00:00:00 00:00:00 [id number] [facility] 2023-03-22 2023-03-28 [facility] DaleBhavyaur 1.2.840.1 [id number] Methodi 15:37:00 19:03:00 Encounter Eladio Stafford [address]483.1.[address] [facility] 3.430.2.7 [facility] [place] .3.236814 l .8 2023-03-22 2023-03-28 [facility] [id number] [place] 00:00:00 00:00:00 Encounter CHRIS [address] 2023-03-22 2023-03-22 Travel 1.2.840.1 1.2.974.439 [id number] Methodi 00:00:00 00:00:[address] 3.430.2.7 0.2.7.3.698 Ho spita .3.959497 084.8 l .8 2023-03-22 2023-03-22 Travel 1.2.840.1 1.2.924.256 0639 [id number] Methodi 00:00:00 00:00:[address] 3.430.2.7 0.2.7.3.698 Ho spita .3.011668 084.8 l .8 2023-03-17 2023-03-17 Outpatient SHERYL BASS [facility] [id number] Univers 15:20:00 15:20:00 SHERYL CHARLES [facility] 2022-12-20 2022-12-20 Outpatient GC_BCSS_How PRIV PRIV [id number] [facility] 00:00:00 00:00:00 [email or web address] [id number] Medic al 2022-12-17 2022-12-17 Patient Doctor GENO 1.2.840.114 [id number] [facility] 00:00:00 00:00:00 Secure Mstee Unassigned, VIJAY 350.[facility].13.10 [facility] 4.2.7.2.686 Ramón as [phone] [address] 2022-12-16 2022-12-16 Outpatient GC_BCSS_How PRIV PRIV [id number] [facility] 00:00:00 00:00:00 [email or web address] [id number] Medic al 2022-12-16 2022-12-16 [facility] 1.2.493.950 [id number] [facility] 00:00:00 00:00:00 [facility] 350.1.13.10 ity [place] 4.2.7.2.686 Ramón as CATRACHO?BLEA [phone] [address] OFFICE [facility] 2022-12-15 2022-12-15 Outpatient R [facility] [id number] [facility] 15:20:00 16:12:20 [facility] 2022-12-15 2022-12-15 Office [facility] 1.2.840.114 [id number] Univers 15:20:00 16:12:20 Visit [facility] 350.1.13.10 [place] 4.2.7.2.686 Ramón as CATRACHO?BLEA [phone] [address] OFFICE [facility] 2022-12-13 2022-12-13 Outpatient GC_BCSS_How PRIV PRIV [id number] [facility] 00:00:00 00:00:00 ell_Dan1 [id number] Medic al 2022-11-23 2022-11-23 Travel 1.2.840.1 1.2.638.226 [id number] [id number] Methodi 00:00:00 00:00:[address] 3.430.2.7 0.2.7.3.698 Ho spita .3.055875 084.8 l .8 2022-11-23 2022-11-23 Travel 1.2.840.1 1.2.034.216 9162 [id number] Methodi 00:00:00 00:00:[address] 3.430.2.7 0.2.7.3.698 Ho spita .3.511498 084.8 l .8 2022-10-25 2022-11-02 [facility] 1.2.840.1 [id number] Methodi 05:01:00 15:19:00 Encounter Nils Cowan 47299.1.[address] 3.430.2.7 Hospit a .3.205740 l .8 2022-10-25 2022-11-02 [facility] 064 [id number] [place] 00:00:00 00:00:00 Encounter [address] 2022-10-25 2022-10-25 Travel 1.2.840.1 1.2.526.872 [id number] [id number] Methodi 00:00:00 00:00:[address] 3.430.2.7 0.2.7.3.698 Ho spita .3.860699 084.8 l .8 2022-10-25 2022-10-25 Travel 1.2.840.1 1.2.013.312 5991 [id number] Methodi 00:00:00 00:00:[address] 3.430.2.7 0.2.7.3.698 Ho spita .3.257175 084.8 l .8 2022-09-01 2022-09-14 Outpatient Tarsha Butts HCAWU RTX [id number] [facility] 09:25:00 00:00:[address] [place] [address] 2022-08-25 2022-08-25 Hospital Rox, 1.2.840.1 [id number] [id number] Methodi 08:26:09 23:59:00 Encounter Rhys 57693.1.[address] Jeremy 3.430.2.7 Hospit a .3.621725 l .8 2022-08-25 2022-08-[address]1 [id number] 2100 [id number] Methodi 08:26:09 23:59:00 Encounter Rhys 51439.1.[address] Jeremy 3.430.2.7 Hospit a .3.538366 l .8 2022-04-25 2022-04-25 Outpatient EL Oh, Tarsha HCAWU HCAWU Z7762 11-04 [facility] 09:28:00 09:28:[id number] [facility] 2022-04-25 2022-04-25 Outpatient EL Oh, Tarsha HCAWU RTX [id number] [id number] [facility] 09:28:00 09:28:[address] [facility] 2022-01-14 2022-02-12 Outpatient EL Oh, Tarsha [facility]CA[facility] RTX [id number] [id number] [facility] 08:34:00 00:00:[address] [facility] 2021-12-14 2022-01-13 Inpatient EL Oh, Tarsha [facility]CA[facility]U RTX [id number] [facility] 14:32:00 00:00:[address] [facility] 2021-12-27 2021-12-27 Inpatient EL Oh, Tarsha HCA[facility]U SUGL [id number] [facility] 10:30:00 09:30:[address] [facility] 2021-12-21 2021-12-21 Outpatient EL Oh, Tarsha [facility] SUGL [id number] [facility] 09:11:00 09:11:[address] [facility] 2021-10-18 2021-11-15 Inpatient EL Oh, Tarsha [facility]CAWU RTX [id number] [facility] 11:23:00 00:00:[address] [facility] 2021-09-02 2021-09-14 Outpatient EL Oh, Tarsha [facility]CA[facility] RTX [id number] [facility] 10:13:00 00:00:[address] [facility] 2021-09-08 2021-09-08 Outpatient EL Oh, Tarsha [facility]CA[facility]U SUGL [id number] [id number] [facility] 08:46:00 08:46:[address] [facility] 2021-08-06 2021-08-06 Outpatient [facility]ICK [facility] 543 [id number] [place] 00:00:00 00:00:00 871 Method i 2021-08-04 2021-08-04 Outpatient D[facility]ICK [facility] 790 [id number] [place] 00:00:00 00:00:00 776 Method i 2021-08-01 2021-08-03 Outpatient LAILA [facility] 355 [id number] [place] 00:00:00 00:00:00 JENNY 205 Method i 2021-07-23 2021-07-23 Outpatient [facility]ICK [facility] 294 [id number] [place] 00:00:00 00:00:00 041 Method i 2021-07-23 2021-07-23 Outpatient D[facility]ICK [facility] 110 [id number] [place] 00:00:00 00:00:00 991 Method i 2021-07-21 2021-07-21 Outpatient DERRICK [facility] 103 [id number] [place] 00:00:00 00:00:00 901 Method i 2021-07-21 2021-07-21 Outpatient DERRICK [facility] 447 [id number] [place] 00:00:00 00:00:00 867 Method i 2021-06-28 2021-07-06 Inpatient NILS COWAN [facility] 078 [id number] [place] 00:00:00 00:00:00 942 Method i 2021-06-02 2021-06-02 Outpatient JONATHAN C[facility] 2100 [id number] [place] 00:00:00 00:00:[address] 2021-04-26 2021-04-26 Emergency X [facility] ERT [id number] [facility] 16:39:00 16:39:00 [facility] Results Test Description Test Time Test Comments Results Result Comments Source POC glucose 2023-07-01 19:36:00 Test Item Value Reference Range Interpretation Comme nts POC glucose (test code = 109 mg/dL 65-99 H Ope rator Name: Abdi Pat53-7Cayden Traylor ID : [id number] able: No Action Needed Lab Interpretation (test code = Abnormal 90119-9) [facility] RBC, 1 [id number] 21:41:00 Test Item Value Reference Range Interpretation Comments Product name (test code Red Cells AS1 Leukored = 25) Irrad Unit number (test code [id number] = 2998331) Product code (test code V0209K21 = 3092) Dispense status (test Transfused code = 24) Blood expiration date (test code = 302) Blood type code (test 600 code = 308) Blood type (test code = A NEGATIVE 1314) Compatibility (test Compatible code = 6400) ZAID (test code = ZAID) [facility] [id number] 19:44:00 Test Item Value Reference Range Interpretation Comments Urine culture Mixed dory Specimen isolate (test 10-4 col/cc InformationSpe cimen code = 40045-2) Source: Urin eSpecimen Site: Clean cat [facility] 12 [id number] 12:18:47 Test Item Value Reference Range Interpretation Comments Ventricular rate (test 102 code = 253) Atrial rate (test code 102 = 255) W[place] interval (test code 164 = 266) QRSD interval (test 88 code = 260) QT interval (test code 326 = 264) QTC interval (test code 424 = 265) P axis 1 (test code = 66 267) QRS axis 1 (test code = 4 268) T wave axis (test code 86 = 270) EKG impression (test Sinus code = 273) tachycardia-Possible Left atrial enlargement-Minimal voltage criteria for LVH, may be normal variant ( [place] product )-Septal infarct , age undetermined-Abnormal ECG-In automated comparison with ECG of 22-MAR-2023 16:26,-premature ventricular complexes are no longer present-T wave inversion more evident in Lateral leads- [facility] ED Preliminary Interpretation - Not an [id number] 02:43:49 Test Item Value Reference Range Interpretation Comments ZAID (test code = ZAID) Gume Singh MD 07/04/2023 8:22 [facility] ED Preliminary Interpretation - Not an Order Performed by: Libertad Mccarthy NPAuthorized by: Gume Singh MD ECG reviewed by ED Physician in the absence of a tavern car attendant: yes Previous ECG: Previous ECG: Compared to current Comparison ECG info: 03/22/23Interpretation: Interpretation: abnormal Rate: ECG rate: 102 ECG rate assessment: tachycardic Rhythm: Rhythm: sinus tachycardia T waves: T waves: inverted Lab Interpretation Abnormal (test code = 37210-5) [facility] METABOLIC [id number] 03:57:00 Test Item Value Reference Range Interpretation Comments SODIUM (test code = 136 mmol/L 134-147 N NA) POTASSIUM (test 4.7 mmol/L 3.4-5.0 N code = K) CHLORIDE (test code 108 mmol/L 100-108 N = CL) CARBON DIOXIDE 24 mmol/L 21-32 N (test code = CO2) ANION GAP (test 4.0 GAP calc 4.0-15.0 N code = GAP) GLUCOSE (test code 121 MG/DL 70-110 H = GLU) BLOOD UREA NITROGEN 26 MG/DL 7-18 H (test code = BUN) GLOMERULAR 21 estGFR >60 L The Glomerular FILTRATION RATE [...] the recommended for shayy for GFRby the atformerly [facility] for Ad[facility].The GFR will not calculate i f the sex is unknown or if thepatient's ag e is <18 years. CREATININE (test 3.3 MG/DL 0.8-1.3 H code = CREAT) CALCIUM (test code 8.0 MG/DL 8.5-10.1 L = CA) RENAL FUNCTION [id number] 03:57:00 Test Item Value Reference Range Interpretation Comments ALBUMIN (test code = ALB) 1.8 G/DL 3.4-5.0 L PHOSPHOROUS (test code = PHOS) 2.9 MG/DL 2.5-4.9 N [id number] 03:57:00 Test Item Value Reference Range Interpretation Comments MAGNESIUM (test code = MAG) 1.8 MG/DL 1.8-2.4 N CBC W/AUTO [id number] 03:46:00 Test Item Value Reference Range Interpretation Comments WHITE BLOOD CELL (test code = 10.0 K/mm3 3.5-11.0 N WBC) RED BLOOD CELL (test code = 3.77 M/mm3 4.70-6.10 L RBC) HEMOGLOBIN (test code = HGB) 8.6 G/DL 12.3-15.9 L HEMATOCRIT (test code = HCT) 28.4 % 35.8-46.7 L MEAN CELL VOLUME (test code = 75.3 Fl 86.3-98.9 L MCV) MEAN CELL HGB (test code = MCH) 22.8 pg 28.9-34.4 L MEAN CELL HGB CONCETRATION 30.3 G/DL 32.1-34.5 L (test code = MCHC) RED CELL DISTRIBUTION WIDTH 20.8 SD 11.5-14.5 H (test code = RDW) PLATELET COUNT (test code = 485 K/mm3 150-450 H PLT) MEAN PLATELET VOLUME (test code 8.50 fL 7.0-9.6 N = MPV) NEUTROPHIL % (test code = NT%) 85.6 % 40-76 H IMMATURE GRANULOCYTE % (test 0.3 % 0.0-5.0 N code = IG%) LYMPHOCYTE % (test code = LY%) 4.2 % 20.5-51.1 L MONOCYTE % (test code = MO%) 7.9 % 1.7-9.3 N EOSINOPHIL % (test code = EO%) 1.7 % 0.0-6.0 N BASOPHIL % (test code = BA%) 0.3 % 0.0-2.0 N NUCLEATED RBC % (test code = 0.0 /100WBC% 0.0-1.0 N NRBC%) NEUTROPHIL # (test code = NT#) 8.6 K/mm3 1.8-7.6 H IMMATURE GRANULOCYTE # (test 0.03 x10 3/uL 0.00-0.03 N code = IG#) LYMPHOCYTE # (test code = LY#) 0.4 K/mm3 0.6-3.0 L MONOCYTE # (test code = MO#) 0.8 K/mm3 0.2-1.5 N EOSINOPHIL # (test code = EO#) 0.2 K/mm3 0.0-0.4 N BASOPHIL # (test code = BA#) 0.0 K/mm3 0.0-0.2 N NUCLEATED RBC # (test code = 0.0 K/mm3 0.00-0.01 N NRBC#) MANUAL DIFF REQUIRED (test code NO DIFF/SCN CRITERIA = MDIFF) CBC W/AUTO [id number] 12:51:00 Test Item Value Reference Range Interpretation Comments WHITE BLOOD CELL 12.3 K/mm3 3.5-11.0 H (test code = WBC) RED BLOOD CELL (test 4.00 M/mm3 4.70-6.10 L code = RBC) HEMOGLOBIN (test code 9.3 G/DL 12.3-15.9 L = HGB) HEMATOCRIT (test code 30.2 % 35.8-46.7 L = HCT) MEAN CELL VOLUME 75.5 Fl 86.3-98.9 L (test code = MCV) MEAN CELL HGB (test 23.3 pg 28.9-34.4 L code = MCH) MEAN CELL HGB 30.8 G/DL 32.1-34.5 L CONCETRATION (test code = MCHC) RED CELL DISTRIBUTION 20.8 SD 11.5-14.5 H WIDTH (test code = RDW) PLATELET COUNT (test 540 K/mm3 150-450 H code = PLT) MEAN PLATELET VOLUME 9.10 fL 7.0-9.6 N (test code = MPV) NEUTROPHIL % (test 88.1 % 40-76 H code = NT%) IMMATURE GRANULOCYTE 0.4 % 0.0-5.0 N % (test code = IG%) LYMPHOCYTE % (test 4.1 % 20.5-51.1 L code = LY%) MONOCYTE % (test code 6.3 % 1.7-9.3 N = MO%) EOSINOPHIL % (test 0.8 % 0.0-6.0 N code = EO%) BASOPHIL % (test code 0.3 % 0.0-2.0 N = BA%) NUCLEATED RBC % (test 0.0 /100WBC% 0.0-1.0 N code = NRBC%) NEUTROPHIL # (test 10.9 K/mm3 1.8-7.6 H code = NT#) IMMATURE GRANULOCYTE 0.05 x10 3/uL 0.00-0.03 H # (test code = IG#) LYMPHOCYTE # (test 0.5 K/mm3 0.6-3.0 L code = LY#) MONOCYTE # (test code 0.8 K/mm3 0.2-1.5 N = MO#) EOSINOPHIL # (test 0.1 K/mm3 0.0-0.4 N code = EO#) BASOPHIL # (test code 0.0 K/mm3 0.0-0.2 N = BA#) NUCLEATED RBC # (test 0.0 K/mm3 0.00-0.01 N code = NRBC#) MANUAL DIFF REQUIRED NO DIFF/SCN CRITERIA SLIDE R EVIEW (test code = MDIFF) CONSISTA NT WITH AUTO DIFFERENTI AL. BASIC METABOLIC [id number] 12:26:00 Test Item Value Reference Range Interpretation Comments SODIUM (test code = 135 mmol/L 134-147 N NA) POTASSIUM (test 5.2 mmol/L 3.4-5.0 H NO HEMOLYSIS code = K) CHLORIDE (test code 105 mmol/L 100-108 N = CL) CARBON DIOXIDE 26 mmol/L 21-32 N (test code = CO2) ANION GAP (test 4.0 GAP calc 4.0-15.0 N code = GAP) GLUCOSE (test code 101 MG/DL 70-110 N = GLU) BLOOD UREA NITROGEN 28 MG/DL 7-18 H (test code = BUN) GLOMERULAR 19 estGFR >60 L The Glomerular FILTRATION RATE [...] ag e is <18 years. CREATININE (test 3.6 MG/DL 0.8-1.3 H code = CREAT) CALCIUM (test code 9.0 MG/DL 8.5-10.1 N = CA) URINALYSIS [id number] 10:41:00 Test Item Value Reference Range Interpretation Comments UA GLUCOSE DIPSTICK (test NEGATIVE mg/dL NEG code = DGLUU) UA BILIRUBIN DIPSTICK (test NEGATIVE mg/dL NEG code = BILU) UA KETONE DIPSTICK (test code NEGATIVE mg/dL NEG = KETU) UA SPECIFIC GRAVITY (test 1.010 SG 1.005-1.030 code = SGU) UA BLOOD DIPSTICK (test code 2+ mg/DL NEG A = MARCIANO) UA PH DIPSTICK (test code = 6.0 pH UNITS 5.0-7.0 PEPITO) UA PROTEIN DIPSTICK (test TRACE mg/dL NEG A code = PROU) UA UROBILINIOGEN DIPSTICK 0.2 mg/dL <2.0 (test code = URO) UA NITRITE DIPSTICK (test NEGATIVE SCREEN NEG code = JOSE C) UA LEUKOCYTE ESTERASE 3+ Leuk/mcL NEGATIVE A DIPSTICK (test code = LEUU) Urine Specimen Type: Catheter (Other)UR SODIUM [id number] 10:41:00 Test Item Value Reference Range Interpretation Comments UR SODIUM RANDOM 55 MEQ/L See_Comment The Referen ce Range and (test code = JACQUE) Method Per formance specificationsh ave not been established for this fluid. The test result should be correlated into the clinical context forinte rpretation. [Automated mess age] The system which ge nerated this result transmit yolande reference range: (). The reference range was not u sed to interpret this result as normal/abnormal . Urine Specimen Type: Catheter (Other)UR CREATININE [id number] 10:41:00 Test Item Value Reference Range Interpretation Comments UR CREATININE RANDOM (test code = 89.8 MG/DL 30-125 N CREATU) Urine Specimen Type: Catheter (Other)UR SODIUM [id number] 10:41:00 Test Item Value Reference Range Interpretation Comments UR SODIUM RANDOM 55 MEQ/L The Referen ce Range and (test code = JACQUE) Method Per formance specificationsh ave not been established for this fluid. The test result should be correlated into the clinical context forinte rpretation. Urine Specimen Type: Catheter (Other)- US OTHER DX US [id number] 16:25:00[facility] 1965 Sex: M Name: GENO PANDA [facility] : 1965 Age/S: 57 / M [address] [address] [place] Unit #: [id number] Loc:[place] [address] Phys: Michel Rdz MD Acct: [id number] Dis Date: Status: ADM IN PHONE #: [phone] Exam Date: 06/14/2023 1530 FAX #: Reason: RIGHT NEPHROSTOMY DUSTIN PLACEMENT EXAMS: CPT: [id number] US OTHER DX US PROCEDURE 38654 EXAMINATION: 1. RIGHT SIDED PERCUTANEOUS NEPHROSTOMY PLACEMENT 2. LEFT-SIDED PERCUTANEOUS NEPHROSTOMY EXCHANGE LOCATION: S17. 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 Colon cancer. SEDATION: Under my supervision, Versed and Fentanyl were administered intravenously for moderate sedation. Pulse oximetry, heart rate, and BP were continuously monitored byan independent trained observer present. I spent 60 minutes of face to face sedation time with the patient. RADIATION DOSE: Total reference air kerma 39 mGy. FLUOROSCOPY TIME: 4 minutes 51 seconds with total number of fluoroscopic images. ANTIBIOTICS: Yes. The patient was given Ceftriaxone 1 g IV. CONTRAST: 20 mL of Isovue. TECHNIQUE: The risks, benefits, and alternatives were discussed and informed consent was obtained. Prior to beginning the procedure, [place] Protocol was used to confirm the patient's identity and planned procedure. Maximum sterile barriers including cap, mask, hand hygiene, sterile gloves, sterile gown, large sterile drape and cutaneous antisepsis were used. Left nephrostomyexchange: The skin surrounding the existing left nephrostomy catheter was sterilely prepped and draped. Under fluoroscopic guidance the catheter was exchanged over wire for a new 10 Cambodian nephrostomy catheter with appropriate tip positioning in the renal pelvis documented by fluoroscopy following theinjection of a small amount of contrast. There was no significant encrustation of the removed catheter. The new catheter was secured in place with a single 2-0 Prolene stitch. The catheter was connected to a drainage bag and a sterile dressing was applied. Antegrade nephrostogram demonstrated mild to moderate dilation of the ureter. New right nephrostomy tube placement: Initial ultrasound imaging wasperformed to localize the kidney and identify a possible calyx for initial access. The overlying skin was sterilely prepped, draped, and infiltrated with lidocaine. PAGE 1 Signed Report (CONTINUED) Name: GENO PRASAD [place] : 1965 Age/S: 57 / M [address] [facility] Unit #: [id number] Loc: [place] [address] Phys: Michel Rdz MD Acct: [id number] Dis Date: Status: ADM IN PHONE #: [phone] Exam Date: 06/14/2023 1533 FAX #: Reason: RIGHT NEPHROSTOMY DUSTIN PLACEMENT EXAMS: CPT:[id number] US OTHER DX US PROCEDURE 37794 (Continued) A 21- gauge micropuncture needle was then used to access the lower pole calyx of the right kidney with appropriate needle tip positioning documented by ultrasound and fluoroscopy. Contrast injection demonstrated appropriate positioning. A guidewire was passed into the collecting system before dilating the tract to 8 Cambodian. A 8 Cambodian nephrostomy drainage catheter was then advanced over the guidewire, formed, and secured in place with a 2-0 Prolenesuture. The pigtail the drainage catheter was formed within the renal pelvis. Contrast injection showed moderate distention of the right ureter. The urinary bladder did not opacify. The catheter was connected to gravity drainage. A sterile dressing was applied. ESTIMATED BLOOD LOSS: Less than 30 milliliters. COMPLICATIONS: None. DISCHARGED TO: Inpatient unit. FINDINGS: Images from the procedure revealed moderate right-sided hydronephrosis. The urine appeared as slightly blood-tinged on the right and yellow on the left. IMPRESSION: Successful right-sided percutaneous nephrostomy placement and left-sided nephrostomy tube exchange. PLAN: The tubes should be flushed with saline 5 mL normal saline twice a day. at 1625 Reported and signed by: Seymour Sales M.D. CC: Michel Rdz MD; Seymour Sales MD Technologist: Effie Deleon Trnkyb Date/Time: 06/14/2023 (1625) [email or web address] PAGE 2 Signed Report Name: GENO PRASAD [facility] : 1965 Age/S: 57 / M [address] [address] [place] Unit #: [id number] Loc: [place] [address] Phys: Michel Rdz MD Acct: [id number] Dis Date: Status: ADM IN PHONE #: [phone] Exam Date: 06/14/2023 1533 FAX #: Reason: RIGHT NEPHROSTOMY DUSTIN PLACEMENT EXAMS: CPT: [id number] US OTHER DX US PROCEDURE [id number] (Continued) Orig Print D/T: S: 06/14/2023 (8944) Probe: PAGE 3 Signed Report- SP PLCMT NEPH [id number] 16:25:00[facility] : 1965 Sex: M Name: GENO PANDA [facility] : 1965 Age/S: 57 / M [address] [address] [place] Unit #: [id number] Loc:[place] [address] Phys: Michel Rdz MD Acct: [id number] Dis Date: Status: ADM IN PHONE #: [phone] Exam Date: 06/14/2023 1530 FAX #: Reason: RENAL HYDRON EXAMS: CPT: [id number] [facility] NEPHCATH 70288 Fluoro Time: 291 DAP (Gy m2): Air Kerma (mGy): EXAMINATION: 1. RIGHT SIDED PERCUTANEOUS NEPHROSTOMY PLACEMENT 2. LEFT-SIDED PERCUTANEOUS NEPHROSTOMY EXCHANGE LOCATION: S17. 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 Colon cancer. SEDATION: Under my supervision, Versed and Fentanyl were administered intravenously for moderate sedation. Pulse oximetry, heart rate, and BP were continuously monitored by an independent trained observer present. I spent 60 minutes of face to face sedation time with the patient. RADIATION DOSE: Total reference air kerma 39 mGy. FLUOROSCOPY TIME: 4 minutes 51 seconds with total number of fluoroscopic images. ANTIBIOTICS: Yes. The patient was given Cef triaxone 1 g IV. CONTRAST: 20 mL of Isovue. TECHNIQUE: The risks, benefits, and alternatives were discussed and informed consent was obtained. Prior to beginning the procedure, [place] Protocol wasused to confirm the patient's identity and planned procedure. Maximum sterile barriers including cap, mask, hand hygiene, sterile gloves, sterile gown, large sterile drape and cutaneous antisepsis wereused. Left nephrostomy exchange: The skin surrounding the existing left nephrostomy catheter was sterilely prepped and draped. Under fluoroscopic guidance the catheter was exchanged over wire for a new10 Cambodian nephrostomy catheter with appropriate tip positioning in the renal pelvis documented by fluoroscopy following the injection of a small amount of contrast. There was no significant encrustation of the removed catheter. The new catheter was secured in place with a single 2-0 Prolene stitch. The catheter was connected to a drainage bag and a sterile dressing was applied. Antegrade nephrostogram demonstrated mild to moderate dilation of the ureter. New right nephrostomy tube placement: Initial ultrasound imaging was performed to localize the kidney and identify a possible calyx for initial access. The overlying skin was sterilely prepped, draped, and infiltrated with lidocaine. PAGE 1 Signed Report (CONTINUED) Name: GENO PRASADAayz [place] : 1965 Age/S: 57 / M [address] [facility] Unit #: [id number] Loc: [place] [address] Phys: Michel Rdz MD Acct: [id number] Dis Date: Status: ADM IN PHONE #: [phone] Exam Date: 06/14/2023 1530 FAX #: Reason: RENAL HYDRON EXAMS: CPT: [id number] [facility] NEPH CATH 69143 Fluoro Time: 291 DAP (Gy m2): Air Kerma (mGy): (Continued) A 21-gauge micropuncture needle was then used to access the lower pole calyx of the right kidney with appropriate needle tip positioning documented by ultrasound and fluoroscopy. Contrast injection demonstrated appropriate positioning. A guidewire was passed into the collecting system before dilating the tract to 8 Cambodian. A 8 Cambodian nephrostomy drainage catheter was then advanced over the guidewire, formed, and secured in place with a 2-0 Prolene suture. The pigtail the drainage catheter was formed within the renal pelvis. Contrast injection showed moderate distention of the right ureter. The urinary bladder did not opacify. The catheter was connected to gravity drainage. A sterile dressing was applied. ESTIMATED BLOOD LOSS: Less than 30 milliliters. COMPLICATIONS: None. DISCHARGED TO: Inpatient unit. FINDINGS: Images from the procedure revealed moderate right-sided hydronephrosis. The urine appeared as slightly blood-tinged on the right and yellow on the left. IMPRESSION: Successful right-sided percutaneous nephrostomy placement and left-sided nephrostomy tube exchange. PLAN: The tubes should be flushed with saline 5 mL normal saline twice a day. Electronically Signed by Seymour Sales M.D. on 0 06/14/2023 at 1625 Reported and signed by: Seymour Sales M.D. CC: Michel Rdz MD; Seymour Sales MDPAGE 2 Signed Report Name: GENO PRASAD [place] : 1965 Age/S: 57 / M [address] [facility] Unit #: [id number] Loc: [place] [address] Phys: Michel Rdz MD Acct: [id number] Dis Date: Status: ADM IN PHONE #: [phone] Exam Date: 06/14/2023 1530 FAX #: Reason: RENAL HYDRON EXAMS: CPT: [id number] [facility] NEPH CATH 80781 Fluoro Time: 291 DAP (Gy m2): Air Kerma (mGy): (Continued) Technologist: FELISA MUÑOZ Trnkyb Date/Time: 06/14/2023 (5077) [email or web address] Orig Print D/T: S: 06/14/2023 (7664) PAGE 3 Signed Report- SP NEPH CATH [id number] 16:25:00 [facility] 1965 Sex: M Name: GENO PANDA [facility] : 1965 Age/S: 57 / M [address] [address] [place] Unit #: [id number] Loc: [place] [address] Phys: Michel Rdz MD Acct: [id number] Dis Date: Status: ADM IN PHONE #: [phone] Exam Date: 06/14/2023 1453 FAX #: Reason: RENAL HYDRON EXAMS: CPT: [id number] NEPH CATH EXCHANGE 45894 Fluoro Time: 33 DAP (Gy m2): Air Kerma (mGy): EXAMINATION: 1. RIGHT SIDED PERCUTANEOUS NEPHROSTOMY PLACEMENT 2. LEFT-SIDED PERCUTANEOUS NEPHROSTOMY EXCHANGE LOCATION: S17. 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 Colon cancer. SEDATION: Under my supervision, Versed and Fentanyl were administered intravenously for moderate sedation. Pulse oximetry, heart rate, and BP were continuously monitored by an independent trained observer present. I spent 60 minutes of face to face sedation time with the patient. RADIATION DOSE: Total reference air kerma 39 mGy. FLUOROSCOPY TIME: 4 minutes 51 seconds with total number of fluoroscopic images. ANTIBIOTICS: Yes. The patient was given Ce ftriaxone 1 g IV. CONTRAST: 20 mL of Isovue. TECHNIQUE: The risks, benefits, and alternatives were discussed and informed consent was obtained. Prior to beginning the procedure, [place] Protocol was used to confirm the patient's identity and planned procedure. Maximum sterile barriers including cap,mask, hand hygiene, sterile gloves, sterile gown, large sterile drape and cutaneous antisepsis were used. Left nephrostomy exchange: The skin surrounding the existing left nephrostomy catheter was sterilely prepped and draped. Under fluoroscopic guidance the catheter was exchanged over wire for a new 10 Cambodian nephrostomy catheter with appropriate tip positioning in the renal pelvis documented by fluoroscopy following the injection of a small amount of contrast. There was no significant encrustationof the removed catheter. The new catheter was secured in place with a single 2-0 Prolene stitch. Thecatheter was connected to a drainage bag and a sterile dressing was applied. Antegrade nephrostogram demonstrated mild to moderate dilation of the ureter. New right nephrostomy tube placement: Initial ultrasound imaging was performed to localize the kidney and identify a possible calyx for initial access. The overlying skin was sterilely prepped, draped, and infiltrated with lidocaine. PAGE 1 Signed Report (CONTINUED) Name: GENO PRASAD [place] : 1965 Age/S: 57 / M [address] [address]: [id number] Loc: [place] [address] Phys: Michel Rdz MD Acct: [id number] Dis Date: Status: ADM IN PHONE #: [phone] Exam Date: 06/14/2023 8207 FAX #: Reason: RENAL HYDRON EXAMS: CPT: [id number] SP NEPH CATH EXCHANGE 03376 Fluoro Time: 33 DAP (Gy m2): Air Kerma (mGy): (Continued) A 21-gauge micropuncture needle was then used to access the lower pole calyx of the right kidney with appropriate needle tip positioning documented by ultrasound and fluoroscopy. Contrast injection demonstrated appropriate positioning. A guidewire was passed into the collecting system before dilating the tract to 8 Cambodian. A 8 Cambodian nephrostomy drainage catheter was then advanced over the guidewire, formed, and secured in place with a 2-0 Prolene suture. The pigtail the drainage catheter was formed within the renal pelvis. Contrast injection showed moderate distention of the right ureter. The urinary bladder did not opacify. The catheter was connected to gravity drainage. A sterile dressing was applied. ESTIMATED BLOOD LOSS: Less than 30 milliliters. COMPLICATIONS: None. DISCHARGED TO: Inpatient unit. FINDINGS: Images from the procedure revealed moderate right-sided hydronephrosis. The urine appeared as slightly blood-tinged on the right and yellow on the left. IMPRESSION: Successful right-sided percutaneous nephrostomy placement and left-sided nephrostomy tube exchange. PLAN: The tubes should be flushed with saline 5 mL normal saline twice a day. Electronically Signed by Seymour Sales M.D. on at 2629 Reported and signed by: Seymour Sales M.D. CC: Michel Rdz MD; Seymour Sales MD PAGE 2 Signed Report Name: GENO PRASAD : 1965 Age/S: 57 / M [address] [address] [place] [place] Unit #: [id number] Loc: [place] [address] Phys: Michel Rdz MD Acct: [id number] Dis Date: Status: ADM IN PHONE #: [phone] Exam Date: 06/14/2023 4613 FAX #: Reason: RENAL HYDRON EXAMS: CPT: [id number] SP NEPH CATH EXCHANGE 47994 Fluoro Time: 33 DAP (Gy m2): Air Kerma (mGy): (Continued) Technologist: FELISA MUÑOZ Trnscb Date/Time: 06/14/2023 (6520) [email or web address] Orig Print D/T: S: 06/14/2023 (4421) PAGE 3 Signed ReportCBC W/AUTO [id number] 06:01:00 Test Item Value Reference Range Interpretation Comments WHITE BLOOD CELL 12.2 K/mm3 3.5-11.0 H (test code = WBC) RED BLOOD CELL (test 3.82 M/mm3 4.70-6.10 L code = RBC) HEMOGLOBIN (test code 8.8 G/DL 12.3-15.9 L = HGB) HEMATOCRIT (test code 29.1 % 35.8-46.7 L = HCT) MEAN CELL VOLUME 76.2 Fl 86.3-98.9 L (test code = MCV) MEAN CELL HGB (test 23.0 pg 28.9-34.4 L code = MCH) MEAN CELL HGB 30.2 G/DL 32.1-34.5 L CONCETRATION (test code = MCHC) RED CELL DISTRIBUTION 20.3 SD 11.5-14.5 H WIDTH (test code = RDW) PLATELET COUNT (test 428 K/mm3 150-450 N code = PLT) MEAN PLATELET VOLUME 8.30 fL 7.0-9.6 N (test code = MPV) NEUTROPHIL % (test 89.4 % 40-76 H code = NT%) IMMATURE GRANULOCYTE 0.3 % 0.0-5.0 N % (test code = IG%) LYMPHOCYTE % (test 3.1 % 20.5-51.1 L code = LY%) MONOCYTE % (test code 6.0 % 1.7-9.3 N = MO%) EOSINOPHIL % (test 1.0 % 0.0-6.0 N code = EO%) BASOPHIL % (test code 0.2 % 0.0-2.0 N = BA%) NUCLEATED RBC % (test 0.0 /100WBC% 0.0-1.0 N code = NRBC%) NEUTROPHIL # (test 10.9 K/mm3 1.8-7.6 H code = NT#) IMMATURE GRANULOCYTE 0.04 x10 3/uL 0.00-0.03 H # (test code = IG#) LYMPHOCYTE # (test 0.4 K/mm3 0.6-3.0 L code = LY#) MONOCYTE # (test code 0.7 K/mm3 0.2-1.5 N = MO#) EOSINOPHIL # (test 0.1 K/mm3 0.0-0.4 N code = EO#) BASOPHIL # (test code 0.0 K/mm3 0.0-0.2 N = BA#) NUCLEATED RBC # (test 0.0 K/mm3 0.00-0.01 N code = NRBC#) MANUAL DIFF REQUIRED NO DIFF/SCN CRITERIA SLIDE R EVJEANCARLOSW (test code = MDIFF) CONSISTA NT WITH AUTO DIFFERENTI AL. RBC [id number] 06:01:00 Test Item Value Reference Range Interpretation Comments POLYCHROMASIA (test code TRACE ON SCAN NONE = POLC) HYPOCHROMIA (test code = 2+ ON SCAN NONE A HYPO) ANISOCYTOSIS (test code = 2+ NONE A ANISO) MICROCYTOSIS (test code = 1+ ON SCAN NONE MICR) MACROCYTOSIS (test code = 1+ ON SCAN NONE MACR) SPHEROCYTES (test code = TRACE ON SCAN NONE SPH) OVALOCYTES (test code = TRACE ON SCAN NONE OVAL) PLATELET ESTIMATE (test SLIGHTLY INCREASED ADEQUATE code = PLTEST) THOUSAND PLATELET MORPHOLOGY (test OCC LARGE PLATELET code = PLTMORPH) BASIC METABOLIC [id number] 04:05:00 Test Item Value Reference Range Interpretation Comments SODIUM (test code = 135 mmol/L 134-147 N NA) POTASSIUM (test 5.5 mmol/L 3.4-5.0 H code = K) CHLORIDE (test code 106 mmol/L 100-108 N = CL) CARBON DIOXIDE 27 mmol/L 21-32 N (test code = CO2) ANION GAP (test 2.0 GAP calc 4.0-15.0 L code = GAP) GLUCOSE (test code 85 MG/DL 70-110 N = GLU) BLOOD UREA NITROGEN 31 MG/DL 7-18 H (test code = BUN) GLOMERULAR 18 estGFR >60 L The Glomerular FILTRATION RATE [...] the recommended for shayy for GFRby the [facility] on for Adults.The GFR will not calculate i f the sex is unknown or if thepatient's ag e is <18 years. CREATININE (test 3.7 MG/DL 0.8-1.3 H code = CREAT) CALCIUM (test code 8.7 MG/DL 8.5-10.1 N = CA) PROTHROMBIN [id number] 14:51:00 Test Item Value Reference Range Interpretation Comments [...] l Infarction (to prevent recurrent infar ct). CBC W/AUTO [id number] 13:51:00 Test Item Value Reference Range Interpretation Comments WHITE BLOOD CELL 7.8 K/mm3 3.5-11.0 N (test code = WBC) RED BLOOD CELL (test 2.95 M/mm3 4.70-6.10 L code = RBC) HEMOGLOBIN (test code 6.7 G/DL 12.3-15.9 L = HGB) HEMATOCRIT (test code 22.2 % 35.8-46.7 L = HCT) MEAN CELL VOLUME 75.3 Fl 86.3-98.9 L (test code = MCV) MEAN CELL HGB (test 22.7 pg 28.9-34.4 L code = MCH) MEAN CELL HGB 30.2 G/DL 32.1-34.5 L CONCETRATION (test code = MCHC) RED CELL DISTRIBUTION 20.1 SD 11.5-14.5 H WIDTH (test code = RDW) PLATELET COUNT (test 515 K/mm3 150-450 H code = PLT) MEAN PLATELET VOLUME 8.50 fL 7.0-9.6 N (test code = MPV) NEUTROPHIL % (test 83.5 % 40-76 H code = NT%) IMMATURE GRANULOCYTE 0.3 % 0.0-5.0 N % (test code = IG%) LYMPHOCYTE % (test 6.2 % 20.5-51.1 L code = LY%) MONOCYTE % (test code 6.9 % 1.7-9.3 N = MO%) EOSINOPHIL % (test 2.7 % 0.0-6.0 N code = EO%) BASOPHIL % (test code 0.4 % 0.0-2.0 N = BA%) NUCLEATED RBC % (test 0.0 /100WBC% 0.0-1.0 N code = NRBC%) NEUTROPHIL # (test 6.5 K/mm3 1.8-7.6 N code = NT#) IMMATURE GRANULOCYTE 0.02 x10 3/uL 0.00-0.03 N # (test code = IG#) LYMPHOCYTE # (test 0.5 K/mm3 0.6-3.0 L code = LY#) MONOCYTE # (test code 0.5 K/mm3 0.2-1.5 N = MO#) EOSINOPHIL # (test 0.2 K/mm3 0.0-0.4 N code = EO#) BASOPHIL # (test code 0.0 K/mm3 0.0-0.2 N = BA#) NUCLEATED RBC # (test 0.0 K/mm3 0.00-0.01 N code = NRBC#) MANUAL DIFF REQUIRED NO DIFF/SCN CRITERIA SLIDE R EVIEW (test code = MDIFF) CONSISTA NT WITH AUTO DIFFERENTI AL. PROTHROMBIN [id number] 12:14:00 Test Item Value Reference Range Interpretation Comments PT PATIENT (test 13.1 SECONDS 9.3-12.9 H code = PTP) INTERNATIONAL NORMAL 1.18 INR Unit 0.8-1.2 N TARGE T INR [...] l Infarction (to prevent recurrent infar ct). THROMBOPLASTIN TIME [id number] 12:14:00 Test Item Value Reference Range Interpretation Comments THROMBOPLASTIN TIME PARTIAL 31.9 SECONDS 26-35 N (test code = PTT) BASIC METABOLIC [id number] 11:51:00 Test Item Value Reference Range Interpretation Comments SODIUM (test code = 136 mmol/L 134-147 N NA) POTASSIUM (test 5.2 mmol/L 3.4-5.0 H code = K) CHLORIDE (test code 106 mmol/L 100-108 N = CL) CARBON DIOXIDE 26 mmol/L 21-32 N (test code = CO2) ANION GAP (test 4.0 GAP calc 4.0-15.0 N code = GAP) GLUCOSE (test code 92 MG/DL 70-110 N = GLU) BLOOD UREA NITROGEN 26 MG/DL 7-18 H (test code = BUN) GLOMERULAR 19 estGFR >60 L The Glomerular FILTRATION RATE [...] the recommended for shayy for GFRby the [facility] on for Adults.The GFR will not calculate i f the sex is unknown or if thepatient's ag e is <18 years. CREATININE (test 3.6 MG/DL 0.8-1.3 H code = CREAT) CALCIUM (test code 8.5 MG/DL 8.5-10.1 N = CA) HEPATIC FUNCTION [id number] 11:51:00 Test Item Value Reference Range Interpretation Comments TOTAL PROTEIN (test code = PROT) 6.8 G/DL 6.4-8.2 N ALBUMIN (test code = ALB) 2.1 G/DL 3.4-5.0 L BILIRUBIN TOTAL (test code = BILT) 0.50 MG/DL 0.2-1.2 N BILIRUBIN DIRECT (test code = 0.10 MG/DL 0.00-0.30 N BILD) BILIRUBIN INDIRECT (test code = 0.40 MG/DL 0.2-1.2 N BILIND) SGOT/AST (test code = AST) 10 Unit/L 15-37 L SGPT/ALT (test code = ALT) < 6 Unit/L 12-78 L ALKALINE PHOSPHATASE TOTAL (test 56 Unit/L 50-136 N code = ALKP) CBC W/O [id number] 11:07:00 Test Item Value Reference Range Interpretation Comments WHITE BLOOD CELL (test code = WBC) 10.7 K/mm3 3.5-11.0 N RED BLOOD CELL (test code = RBC) 2.85 M/mm3 4.70-6.10 L HEMOGLOBIN (test code = HGB) 6.6 G/DL 12.3-15.9 L HEMATOCRIT (test code = HCT) 22.0 % 35.8-46.7 L MEAN CELL VOLUME (test code = MCV) 77.2 Fl 86.3-98.9 L MEAN CELL HGB (test code = MCH) 23.2 pg 28.9-34.4 L MEAN CELL HGB CONCETRATION (test 30.0 G/DL 32.1-34.5 L code = MCHC) RED CELL DISTRIBUTION WIDTH (test 19.7 SD 11.5-14.5 H code = RDW) PLATELET COUNT (test code = PLT) 468 K/mm3 150-450 H MEAN PLATELET VOLUME (test code = 8.80 fL 7.0-9.6 N MPV) BASIC METABOLIC [id number] 08:24:00 Test Item Value Reference Range Interpretation Comments SODIUM (test code = 136 mmol/L 134-147 N NA) POTASSIUM (test 5.3 mmol/L 3.4-5.0 H code = K) CHLORIDE (test code 105 mmol/L 100-108 N = CL) CARBON DIOXIDE 28 mmol/L 21-32 N (test code = CO2) ANION GAP (test 3.0 GAP calc 4.0-15.0 L code = GAP) GLUCOSE (test code 116 MG/DL 70-110 H = GLU) BLOOD UREA NITROGEN 27 MG/DL 7-18 H (test code = BUN) GLOMERULAR 19 estGFR >60 L The Glomerular FILTRATION RATE [...] for [facility].The GFR will not calculate i f the sex is unknown or if thepatient's ag e is <18 years. CREATININE (test 3.6 MG/DL 0.8-1.3 H code = CREAT) CALCIUM (test code 8.7 MG/DL 8.5-10.1 N = CA) PROTHROMBIN [id number] 08:19:00 Test Item Value Reference Range Interpretation Comments PT PATIENT (test 12.4 SECONDS 9.3-12.9 N code = PTP) INTERNATIONAL NORMAL 1.11 INR Unit 0.8-1.2 N TARGE T INR [...] l Infarction (to prevent recurrent infar ct). - CT ABD PELVIS W/O [id number] 16:44:00 [facility] 1965 Sex: M Name: GENO PANDA [facility] : 1965 Age/S: 57 / M [address] [address] [place] Unit #: [id number] Loc: [place] [address] Phys: Lalo Ruiz MD Acct: [id number] Dis Date: Status: REG CLI PHONE #: [phone] Exam Date: 04/13/2023 1501 FAX #: Reason: HYDRONEPHROSIS DUE TO OBSTRUTION OF URETER EXAMS: CPT:[id number] CT ABD PELVIS W/O CONT 09112 EXAMINATION: - CT ABD PELVIS W/O CONT. LOCATION: B2. HISTORY:HYDRONEPHROSIS DUE TO OBSTRUTION OF URETER. COMPARISON: Head/CT dated 12/21/2021. TECHNIQUE: CT abdomen and pelvis was performed without the use of IV contrast. Sagittal and coronal reconstructed images were available for review. This exam was performed according to our departmental dose-optimization program, which includes automated exposure control, adjustment of the mA and/or kV according to patientsize, and/or use of iterative reconstruction technique. Unless [...] PRASAD : 1965 Age/S: 57 / M [address] [address] Unit #: [id number] Loc: [place] [address] Phys: Lalo Ruiz MD Acct: [id number] Dis Date: Status: REG CLI PHONE #: [phone] Exam Date: 04/13/2023 1504 FAX #: Reason: HYDRONEPHROSIS DUE TO OBSTRUTION OF URETER EXAMS: CPT: [id number] CT ABD PELVIS W/O CONT 72807 (Continued) abnormality is identified. No aggressive lytic or blastic lesion is seen. IMPRESSION: Moderate right hydroureteronephrosis to the level of the urinary bladder. Left percutaneous nephrostomy catheter in place without hy dronephrosis. Significant urinary bladder wall thickening with mild [...] Erin CTDI: DLP: Trnscb Date/Time: 04/13/2023 (1644) [id number] Orig Print D/T: S: 04/13/2023 (6433) PAGE 2 Signed ReportPrepare RBC, 2 [id number] 16:16:00 Test Item Value Reference Range Interpretation Comments Product name (test code Red Cells AS1 Leukored = 25) Irrad Unit number (test code [id number] = [id number]) Product code (test code I0895T05 = 3092) Dispense status (test Transfused code = 24) Blood expiration date (test code = 302) Blood type code (test 6200 code = 308) Blood type (test code = A POSITIVE 1314) Compatibility (test Compatible code = 6400) [facility], 2 [id number] 16:16:00 Test Item Value Reference Range Interpretation Comments Product name (test code Red Cells AS1 Leukored = 25) Irrad Unit number (test code [id number] = [id number]) Product code (test code P5228R86 = 3092) Dispense status (test Transfused code = 24) Blood expiration date (test code = 302) Blood type code (test 6200 code = 308) Blood type (test code = A POSITIVE 1314) Compatibility (test Compatible code = 6400) [facility] RBC, 2 [id number] 16:16:00 Test Item Value Reference Range Interpretation Comments Product name (test code Red Cells AS1 Leukored = 25) Irrad Unit number (test code [id number] = [id number]) Product code (test code N9036O76 = 3092) Dispense status (test Transfused code = 24) Blood expiration date (test code = 302) Blood type code (test 6200 code = 308) Blood type (test code = A POSITIVE 1314) Compatibility (test Compatible code = 6400) [facility] RBC, 2 [id number] 16:16:00 Test Item Value Reference Range Interpretation Comments Product name (test code Red Cells AS1 Leukored = 25) Irrad Unit number (test code [id number] = 8966434) Product code (test code L1794E06 = 3092) Dispense status (test Transfused code = 24) Blood expiration date (test code = 302) Blood type code (test 6200 code = 308) Blood type (test code = A POSITIVE 1314) Compatibility (test Compatible code = 6400) [facility], 2 [id number] 16:16:00 Test Item Value Reference Range Interpretation Comments Product name (test code Red Cells AS1 Leukored = 25) Irrad Unit number (test code [id number] = 0796309) Product code (test code I6398B90 = 3092) Dispense status (test Transfused code = 24) Blood expiration date (test code = 302) Blood type code (test 6200 code = 308) Blood type (test code = A POSITIVE 1314) Compatibility (test Compatible code = 6400) [facility] RBC, 2 [id number] 16:16:00 Test Item Value Reference Range Interpretation Comments Product name (test code Red Cells AS1 Leukored = 25) Irrad Unit number (test code [id number] = 9245704) Product code (test code M6656G28 = 3092) Dispense status (test Transfused code = 24) Blood expiration date (test code = 302) Blood type code (test 6200 code = 308) Blood type (test code = A POSITIVE 1314) Compatibility (test Compatible code = 6400) [facility] RBC, 2 [id number] 16:16:00 Test Item Value Reference Range Interpretation Comments Product name (test code Red Cells AS1 Leukored = 25) Irrad Unit number (test code [id number] = 8058163) Product code (test code W3228Z40 = 3092) Dispense status (test Transfused code = 24) Blood expiration date (test code = 302) Blood type code (test 6200 code = 308) Blood type (test code = A POSITIVE 1314) Compatibility (test Compatible code = 6400) [facility] 12 [id number] 03:42:02 Test Item Value Reference Range Interpretation Comments Ventricular rate (test 121 code = 253) Atrial rate (test code 121 = 255) [place] interval (test code 156 = 266) QRSD [...] available-Electronical ly Signed By Bentley Card MD ([id number]) on 03/22/2023 10:41:52 PM [address]2023-06-08 03:42:02 Test Item Value Reference Range Interpretation Comments Ventricular rate (test 121 code = 253) Atrial rate (test code 121 = 255) [place] interval (test code 156 = 266) QRSD [...] for LVH, may be normal variant ( [place] product )-T wave abnormality, consider lateral ischemia-Abnormal ECG-No previous ECGs available-Electronical ly Signed By Bentley Card MD ([id number]) on 03/22/2023 10:41:52 PM [address]2023-06-08 03:42:02 Test Item Value Reference Range Interpretation Comments Ventricular rate (test 121 code = 253) Atrial rate (test code 121 = 255) [place] interval (test code 156 = 266) QRSD [...] available-Electronical ly Signed By Bentley Card MD ([id number]) on 03/22/2023 10:41:52 PM [place] [address] [id number] 03:42:02 Test Item Value Reference Range Interpretation Comments Ventricular rate (test 121 code = 253) Atrial rate (test code 121 = 255) [place] interval (test code 156 = 266) QRSD [...] for LVH, may be normal variant ( [place] product )-T wave abnormality, consider lateral ischemia-Abnormal ECG-No previous ECGs available-Electronical ly Signed By Bentley Card MD ([id number]) on 03/22/2023 10:41:52 PM [address]2023-06-08 03:42:02 Test Item Value Reference Range Interpretation Comments Ventricular rate (test 121 code = 253) Atrial rate (test code 121 = 255) [place] interval (test code 156 = 266) QRSD [...] for LVH, may be normal variant ( [place] product )-T wave abnormality, consider lateral ischemia-Abnormal ECG-No previous ECGs available-Electronical ly Signed By Bentley Card MD ([id number]) on 03/22/2023 10:41:52 PM [address]2023-06-08 03:42:02 Test Item Value Reference Range Interpretation Comments Ventricular rate (test 121 code = 253) Atrial rate (test code 121 = 255) [place] interval (test code 156 = 266) QRSD [...] for LVH, may be normal variant ( [place] product )-T wave abnormality, consider lateral ischemia-Abnormal ECG-No previous ECGs available-Electronical ly Signed By Bentley Card MD ([id number]) on 03/22/2023 10:41:52 PM [facility] 12 [id number] 03:42:02 Test Item Value Reference Range Interpretation Comments Ventricular rate (test 121 code = 253) Atrial rate (test code 121 = 255) [place] interval (test code 156 = 266) QRSD [...] for LVH, may be normal variant ( [place] product )-T wave abnormality, consider lateral ischemia-Abnormal ECG-No previous ECGs available-Electronical ly Signed By Bentley Card MD ([id number]) on 03/22/2023 10:41:52 PM [facility] VENOUS BLOOD [id number] 21:59:00 Test Item Value Reference Range Interpretation Comments POC VENOUS BLOOD 7.340 pH units 7.26-7.43 N GAS PH (test code = POCPHV) POC VENOUS BLOOD 54.2 mmHg e 35.0-45.0 H GAS PCO2 (test code = UWDQTK8G) POC VENOUS BLOOD 38.8 mmHg e 80.0-100.0 LL GAS PO2 (test code = BCCGO3N) POC TCO2 VENOUS 28.6 MMOL/L e 24.0-30.0 N (test code = IGVIDA4A) POC HCO3 VENOUS 29.2 MMOL/L e 22.0-26.0 H (test code = NHHLQY0T) POC BASE EXCESS 2.7 MMOL/L e See_Comment N [Automated VENOUS (test code = message] The system POCBEV) which generated this result transmitted reference range : -3.0 to 3.0. Th e reference range was not used to interpret this result as normal/abnormal . POC O2 SATURATION 69 % e 95-100 L VENOUS (test code = VCBZ8UX) POC SAMPLE SOURCE Venous Descript Specimen (test code = POCSAMPLE) CBC W/AUTO [id number] 10:20:00 Test Item Value Reference Range Interpretation [...] NO DIFF/SCN CRITERIA = MDIFF) BASIC METABOLIC [id number] 10:12:00 Test Item Value Reference Range Interpretation [...] the recommended for shayy for GFRby the [facility] on for Adults.The GFR will not calculate i f the sex is unknown or if thepatient's ag e is <18 years. CREATININE (test 1.6 MG/DL 0.8-1.3 H code = CREAT) CALCIUM (test code 9.4 MG/DL 8.5-10.1 N = CA) PROTHROMBIN [id number] 09:00:00 Test Item Value Reference Range Interpretation [...] in Respiratory specimen by YVROSE with probe [id number] 11:43:33 Test Item Value Reference Range Interpretation Comments SARS-CoV-2 (COVID-19) RNA Not detected [Presence] in Respiratory specimen by YVROSE with probe detection (test code = 53048-4) Whether patient is employed in a Unknown healthcare setting (test code = 61793-7) Whether the patient has symptoms Unknown related to condition of interest (test code = 62384-6) Whether the patient was Unknown hospitalized for condition of interest (test code = 33194-5) Whether the patient was admitted Unknown to intensive care unit (ICU) for condition of interest (test code = 90054-5) Whether patient resides in a Unknown congregate care setting (test code = 23712-9) status (test code = Unknown 67816-7) Date and time of symptom onset Unknown (test code = 46886-2) [facility] [id number] 18:02:00 Test Item Value Reference Range Interpretation Comments Urine culture (test SEE COMMENT Bacteriu rony screen code = 7959667) negative. [facility] [id number] 18:02:00 Test Item Value Reference Range Interpretation Comments Urine culture (test SEE COMMENT Bacteriu rony screen code = 0302307) negative. [facility] [id number] 18:02:00 Test Item Value Reference Range Interpretation Comments Urine culture (test SEE COMMENT Bacteriu rony screen code = 0470302) negative. [facility] [id number] 18:02:00 Test Item Value Reference Range Interpretation Comments Urine culture (test SEE COMMENT Bacteriu rony screen code = 6954436) negative. [facility]- PET/CT TUMOR SK BS [id number] 14:28:00 [facility] 1965 Sex: M Patient Name: GENO PRASAD Unit No: [id number] EXAMS: CPT CODE: [id number] PET/CT TUMOR SK BS MIDTH 09018 EXAMINATION: - PET/CT TUMOR SK BS MIDTH [...] the drain follows the course of the [facility] NAME: GENO PRASAD [address] [facility] [address] PHYS: [place] [address] : 1965 AGE: 56 SEX: M LOC: ZEarnestZNUC PHONE #: [phone] EXAM DATE: 12/21/2021 STATUS: REG CLI FAX #: [phone] RADIOLOGY NO: PAGE 1 Signed Report (CONTINUED) Patient Name: GENO PRASAD Unit No: [id number] EXAMS: CPT CODE: [id number] PET/CT TUMOR SK BS MIDTH 35259 <Continued> sigmoid colon. Uptake in the more [...] slightly more prominent compared to the prior s tudy but the patient has undergone recent surgery and the surgery may somewhat confound the picture.There is also continued increased uptake along the [...] (1428) t.SDR.AG38 Orig Print D/T: S: 12/21/2021 (5981) [facility] NAME: GENO PRASAD [address] [facility] [address] PHYS: [place] [address] : 1965 AGE: 56 SEX: M LOC: Z.ZNUC PHONE #: [phone] EXAM DATE: 12/21/2021 STATUS: REG CLI FAX #: [phone] RADIOLOGY NO: PAGE 2 Signed [id number] 09:50:00 Test Item Value Reference Range Interpretation Comments GLUCOSE (test code = GLU) 98 MG/DL 79-105 N Comments to [employer]: FOR PETIs this a LINE draw? N- PET/CT TUMOR SK [id number] 13:41:00 [facility] : 1965 Sex: M Patient Name: GENO PRASAD Unit No: [id number] EXAMS: CPT CODE: [id number] PET/CT TUMOR SK MIDTH 46739 EXAM: PET/CT scan INDICATION: MALIGNANT NEOPLASM OF [...] a centimeter in diameter, which demonstrate minimal hypermetabolicactivity. The maximum SUV is 1.4. There is [...] This measures about 3.5 cm in diameter. Th is finding is consistent with the given history of malignant neoplasm of rectum. There is increasedtracer activity involving the right aspect of the L5 vertebra, with a maximum SUV of 2.2. There are degenerative changes in this region on the corresponding CT scan. This appears to be most likely secondary to degenerative changes, with metastatic disease appearing less likely. Follow-up MRI of the lumbar spine without and with contrast is recommended. [facility] NAME: GENO [id number] [address] PHYS: [place] [address] : 1965 AGE: 56SEX: M LOC: Z.ZNUC PHONE #: [phone] EXAM DATE: 09/08/2021 STATUS: DEP [place] #: [phone] RADIOLOGY NO: PAGE 1 Signed Report (CONTINUED) Patient Name: GENO PRASAD Unit No: [id number] EXAMS: CPT CODE: [id number] PET/CT TUMOR SK BS MIDTH [id number] <Continued> There aresmall lymph nodes in the right axilla, measuring less than a centimeter in mean diameter each, demonstrating minimal hypermetabolic activity, with a maximum SUV of 1.4. These appear to most likely represent benign reactive lymph nodes. Otherwise unremarkable PET/CT scan. at 1341 Reported and signed by: Beau Marr MD CC: Tarsha Mancera MD Technologist: Linnea Vasquez RT(N) Transcrpt Date/Tm/Trnsp: 09/10/2021 (134) t.SDR.PMT Orig Print D/T: S: 09/10/2021 (3214) [facility] NAME: GENO PRASAD [id number] [address] PHYS: [place] [address] : 1965 AGE: 56 SEX: M LOC: HANNAH PHONE #: [phone] EXAM DATE: 09/08/2021 STATUS: DEP CLI FAX #: [phone] RADIOLOGY NO: PAGE 2 Signed [id number] 09:44:00 Test Item Value Reference Range Interpretation Comments GLUCOSE (test code = GLU) 86 MG/DL 79-105 N SARS-CoV-2 (COVID-19) RNA [Presence] in Respiratory specimen by YVROSE with probe [id number] 18:54:41 Test Item Value Reference Range Interpretation Comments SARS-CoV-2 (COVID-19) RNA Not detected Not-Detected [Presence] in Respiratory specimen by YVROSE with probe detection (test code = 97810-3) Whether patient is employed in a healthcare setting (test code = 47361-3) Whether the patient has symptoms related to condition of interest (test code = 52754-6) Patient was hospitalized because of this condition (test code = 14801-6) Whether the patient was admitted to intensive care unit (ICU) for condition of interest (test code = 39221-6) Whether patient resides in a congregate care setting (test code = 63573-3) status (test code = 56439-7) BERNARDO SIMPSONRS-CoV-2 (COVID-19) RNA [Presence] in Respiratory specimen by YVROSE with probe [id number] 16:30:19 Test Item Value Reference Range Interpretation Comments SARS-CoV-2 (COVID-19) RNA Not detected Not-Detected [Presence] in Respiratory specimen by YVROSE with probe detection (test code = 13290-2) Whether patient is employed in a healthcare setting (test code = 48515-1) Whether the patient has symptoms related to condition of interest (test code = 67857-9) Patient was hospitalized because of this condition (test code = 20905-6) Whether the patient was admitted to intensive care unit (ICU) for condition of interest (test code = 24820-1) Whether patient resides in a congregate care setting (test code = 59021-5) BERNARDO WAITE
[2023-08-01] MEDS ORDERED: NA CHLORIDE 0.9% 1,000 ML ONE ×2 (21:46→23:25)
[2023-08-01] MEDS ORDERED: CEFTRIAXONE 1000 MG/VIAL ONE (21:46)
[2023-08-01] MEDS ORDERED: ONDANSETRON 4 MG/2 ML VIAL ONE (21:46)
[2023-08-01] MEDS ORDERED: MORPHINE 4 MG/ML SYR ONE (21:46)
[2023-08-01] MEDS ORDERED: METRONIDAZOLE 500mg IVPB 500 MG/100 ML BAG IV ONE (21:46)
[2023-08-01 21:54] LABS: Absolute Lymphocytes (CBC) 0.7 K/uL (0.7-4.9); Hematocrit 26.6 % (39.6-49.0); Lymphocytes % 5.1 % (15.3-44.8); MCV 73.1 fL (80-100); MPV 6.8 fL (7.6-11.3); Platelets 687 thou/uL (152-406); RBC Red Blood Cell Count 3.64 M/uL (4.33-5.43)
[2023-08-01 21:56] LABS: Specific Gravity 1.018 (1.005-1.030); Urine Bacteria <20 /HPF (<20); Urine Bilirubin NEGATIVE (Negative); Urine Blood 1+ (Negative); Urine Clarity Extremely Turbid (Clear); Urine Color Light-Orange (Yellow); Urine Crystals Unidentified Few /HPF (None Seen); Urine Glucose NEGATIVE (Negative); Urine Protein 2+ (Negative); Urine RBC 21-50 /HPF (None Seen); Urine Urobilinogen Normal (Normal); Urine WBC Clump Few /HPF (None Seen)
--- NOTE | 2023-08-01 21:58 | RAD REPORT ---
EXAM DESCRIPTION: RADChest Single View08/01/2023 9:39 pm CLINICAL HISTORY: COUGH COMPARISON: Chest Single View dated 12/08/2022; Abdomen 1 View (KUB) dated 11/01/2021; Chest Single Vi ew dated 10/29/2021 TECHNIQUE: Portable AP view of the chest. FINDINGS: Right chest wall medication port unchanged in position. The lungs are clear. No pneumotho rax or effusion. The cardiomediastinal contours are unremarkable. IMPRESSION: No acute cardiopulmonary process.
[2023-08-01 21:59] LABS: Protime INR 1.23
[2023-08-01 22:10] LABS: AST/SGOT 6 U/L (15-37); Albumin 2.4 g/dL (3.4-5.0); Alkaline Phosphatase 75 U/L (45-117); BUN Blood Urea Nitrogen 46 mg/dL (7-18); Bicarbonate 26 mEq/L (21-32); Bilirubin Total 0.5 mg/dL (0.2-1.0); Glomerular Filtration Rate 15 ml/min (=/>90); Glucose Level 157 mg/dL (74-106); Potassium 5.2 mEq/L (3.5-5.1); Protein, Total 8.7 g/dL (6.4-8.2); Sodium Level 132 mEq/L (136-145)
[2023-08-01 22:11] LABS: ALT/SGPT < 10 U/L (16-61)
[2023-08-01 22:28] LABS: Anisocytosis 2+; Blood Morphology Comment NOTED (NOT SEEN); Hypochromasia 1+; Platelet Estimate INCR; Poikilocytosis 1+; White Blood Cell Scan OK (OK)
[2023-08-02] MEDS ORDERED: MORPHINE 4 MG/ML SYR ONE ×2 (00:31→02:39)
[2023-08-02] MEDS ORDERED: NA CHLORIDE 0.9% 1,000 ML ONE (00:31)
--- NOTE | 2023-08-02 01:18 | EDPHYS ---
Physician Documentation [facility] Name: Edwin Young Age: 57 yrs Sex: Male : 1965 Arrival Date: 08/01/2023 Time: 20:20 Bed 14 Private MD: ED Physician Bunny Stokes HPI: 08/01 20:58 This 57 yrs old Black Male presents to ER via Wheelchair with complaints of Rectal Pain.ec2 20:58 Patient arrives today due to concern for abdominal pain, rectal pain as well as penile ec2 discharge and rectal discharge. Patient reports previous history of colon cancer, status post resection, multiple ostomies in place as well as bilateral neph tubes in place. Patient reports that he is having discharge from the rectum as well as a penis that has been ongoing for approximately 2 days. Patient reports abdominal discomfort, no associated nausea or vomiting. Patient states he does not typically have discharge from these areas.. Historical: - Allergies: 20:43 No Known Allergies; ap3 - PMHx: 20:43 CHEMO; CHF; colon cancer; Gout; Hypertension; ap3 - PSHx: 20:43 Colostomy; L nephrostomy; ap3 - Immunization history:: Client reports receiving the 2nd dose of the Covid vaccine. - Social history:: Smoking status: Patient denies any tobacco usage or history of. ROS: 20:58 Constitutional: As per HPI. ec2 Exam: 20:58 Constitutional: GEN: Chronically ill-appearing individual who is ec2 uncomfortable. HEENT: -Head: atraumatic -Eyes: EOMI -Ears: External ears are normal. CV: Tachycardia LUNGS: no respiratory distress ABD: Generally tender without guarding or rigidity, ostomy x2 noted. Marked penile discharge noted, small amount of rectal discharge noted. MSK: no evidence of trauma NEURO: moves all extremities equally Vital Signs: 20:40 BP 87 / 70; Pulse 160; Resp 18; Temp 98.6; Pulse Ox 97% on R/A; Weight 88.45 kg; Pain ap3 10/10; 21:45 BP 97 / 78; Pulse 117; Resp 17; Pulse Ox 96% ; jj7 22:00 BP 108 / 74; Pulse 105; Resp 12; Pulse Ox 89% ; jj7 23:00 BP 113 / 85; Pulse 103; Resp 16; Temp 98.7; Pulse Ox 100% on 2 lpm NC; jj7 23:20 BP 113 / 85; Pulse 92; ec2 08/02 00:00 BP 102 / 65; Pulse 92; Resp 12; Pulse Ox 97% on 2 lpm NC; jj7 01:00 BP 108 / 77; Pulse 101; Resp 16; Pulse Ox 100% ; jj7 02:00 BP 103 / 70; Pulse 92; Resp 14; Pulse Ox 100% ; Pain 7/10; jj7 03:19 BP 99 / 67; Pulse 95; Resp 17; Pulse Ox 100% on R/A; Pain 1/10; jj7 04:15 BP 115 / 79; Pulse 95; Resp 12; Pulse Ox 100% ; jj7 05:00 BP 98 / 67; Pulse 87; Resp 13; Pulse Ox 100% ; jj7 06:00 BP 100 / 65; Pulse 84; Resp 15; Pulse Ox 100% ; jj7 06:48 BP 98 / 71; Pulse 90; Resp 17; Pulse Ox 100% ; jj7 07:27 BP 103 / 75; Pulse 86; Resp 16 S; Pulse Ox 98% on R/A; kc6 08/01 20:40 Pain Scale: Adult ap3 02:00 Pain Scale: Adult jj7 03:19 Pain Scale: Adult jj7 MDM: 08/01 20:57 Patient medically screened. ec2 20:58 Data reviewed: vital signs. ED course: Patient arrives today due to concern for ec2 complaints as above. Examination remarkable for discharge as noted above, abdomen who is mildly uncomfortable on palpation. Will obtain a septic work-up, empirically treat for intra-abdominal infection, also treat for chlamydia and gonorrhea and treat for urinary tract infection. Currently considering sepsis secondary to UTI, STI, intra-abdominal abscess, dehydration.. 22:01 ED course: EKG independently reviewed and interpreted by me, shows sinus tachycardia, ec2 rate 118, no acute ST segment elevations, nonconcerning intervals.. 23:01 ED course: Patient's lab work is remarkable for a leukocytosis with a white blood cell ec2 count of 13.7, anemia appreciated with a hemoglobin of 8.6. Metabolic profile shows slight hypokalemia, slight hyperkalemia, renal dysfunction with a creatinine of 4.36. Lactic at 2.8. Urine is infectious appearing with WBCs as well as leuk esterase present. . 08/02 01:06 ED course: CT scan of the abdomen pelvis shows progressive metastatic disease, also ec2 concern for colovesical fistula which would be consistent with the patient's penile discharge as well as urinary tract infection noted. Patient has had all of his surgeries here, I will admit the patient for continued management of his complications and infections. I discussed the results with patient and he is agreeable. He is aware of the progressive metastatic disease. I discussed case with hospitalist, pending admission. . 05:23 ED course: I discussed the case with the general surgeon, who ultimately ec2 felt patient will be best suited under the care of a colorectal surgeon. Patient was supposed to follow-up with Dr. Gramajo, we will attempt to transfer to a [facility] facility or facility has colorectal capabilities.. 06:04 ED course: I discussed case with colorectal surgeon and [facility] who agrees to ec2 consult on the patient and will work on transferring the patient.. 08/01 20:57 Order name: Blood Culture Adult (2) ec2 08/01 20:57 Order name: CBC with Diff; Complete Time: 23:00 ec2 08/01 20:57 Order name: CMP; Complete Time: 23:00 ec2 08/01 20:57 Order name: Lactate w/ 2H reflex if indic.; Complete Time: 23:00 ec2 08/01 20:57 Order name: Protime (+inr); Complete Time: 23:00 ec2 08/01 20:57 Order name: Ptt, Activated; Complete Time: 23:00 ec2 08/01 20:57 Order name: Urinalysis w/ reflexes; Complete Time: 23:00 ec2 08/01 20:57 Order name: GC (Juvencio/Chl) Probe URINE ec2 08/01 22:01 Order name: Urine Culture EDMS 08/01 22:02 Order name: CBC Smear Scan; Complete Time: 23:00 EDMS 08/02 04:30 Order name: Lactate Sepsis 2 HR Follow-up; Complete Time: 05:15 EDMS 08/01 20:57 Order name: Chest Single View XRAY; Complete Time: 23:00 ec2 08/01 22:20 Order name: Abdomen EDMS 08/01 20:57 Order name: EKG; Complete Time: 20:58 ec2 08/01 20:57 Order name: Accucheck; Complete Time: 05:40 ec2 08/01 20:57 Order name: Cardiac monitoring; Complete Time: 21:48 ec2 08/01 20:57 Order name: EKG - Nurse/Tech; Complete Time: 22:39 ec2 08/01 20:57 Order name: IV Saline Lock - Large Bore; Complete Time: 22:39 ec2 08/01 20:57 Order name: Labs collected and sent; Complete Time: 21:48 ec2 08/01 20:57 Order name: O2 Per Protocol; Complete Time: 21:48 ec2 08/01 20:57 Order name: O2 Sat Monitoring; Complete Time: 21:48 ec2 08/01 20:57 Order name: Vital Signs; Complete Time: 21:48 ec2 Administered Medications: 08/01 21:40 Drug: Rocephin IV 1 grams IV at calculated rate once; Given slow IV push per pharmacy jj7 instructions Route: IV; Rate: calculated rate; Site: right antecubital; 21:55 Follow up: IV Status: Completed infusion j7 22:39 Follow up: Response: No adverse reaction jj7 21:46 Drug: metroNIDAZOLE IVPB 500 mg 100 ml IVPB at 200 ml/hr once over 30 mins Volume: 100 jj7 ml; Route: IVPB; Rate: 200 ml/hr; Infused Over: 30 mins; Site: right antecubital; 22:39 Follow up: IV Status: Completed infusion j7 21:46 Drug: NS 0.9% IV 1000 ml IV at 1 bolus Per protocol; 1000 mL bolus Route: IV; Rate: 1 jj7 bolus; Site: right antecubital; 22:39 Follow up: IV Status: Completed infusion j7 21:47 Drug: morphine IVP or IV 4 mg IVP once over 4 mins Route: IVP; Infused Over: 4 mins; jj7 Site: right antecubital; 22:40 Follow up: Response: Marked relief of symptoms j7 21:47 Drug: Ondansetron IVP 4 mg IVP once; over 2 minutes Route: IVP; Site: right antecubital;jj7 22:40 Follow up: Response: Marked relief of symptoms jj7 23:15 Drug: NS 0.9% IV 1000 ml IV at 1 bolus Per protocol; 1000 mL bolus Route: IV; Rate: 1 jj7 bolus; Site: right antecubital; 08/02 00:21 Follow up: IV Status: Completed infusion jj7 00:31 Drug: NS 0.9% IV 1000 ml IV at 1 bolus Per protocol; 1000 mL bolus Route: IV; Rate: 1 jj7 bolus; Site: right antecubital; 01:47 Follow up: IV Status: Completed infusion j7 00:31 Drug: morphine IVP or IV 4 mg IVP once over 4 mins Route: IVP; Infused Over: 4 mins; jj7 Site: right antecubital; 00:47 Follow up: Response: Marked relief of symptoms j7 02:34 Drug: morphine IVP or IV 6 mg IVP once over 4 mins Route: IVP; Infused Over: 4 mins; jj7 Site: right antecubital; 02:45 Follow up: Response: Marked relief of symptoms jj7 Disposition Summary: 08/02/23 06:04 Transfer Ordered Notes: Transfer Location: [facility] ec2 Reason: Higher level of care ec2 Condition: Stable(08/02/23 06:04) ec2 Problem: chronic(08/02/23 06:04) ec2 Symptoms: have improved(08/02/23 06:04) ec2 Accepting Physician: Colorectal Surgeon at [facility](08/02/23 07:52) kc6 Diagnosis - Sepsis, unspecified organism(08/02/23 06:04) ec2 - Colovesical Fistula ec2 - UTI/ Urinary tract infection, site not specified(08/02/23 06:04) ec2 Forms: - Medication Reconciliation Form ec2 - SBAR form ec2 Critical care time excluding procedures: :17 Critical care time: Bedside Care: 30 minutes, Consultation: 5 minutes. Total time: 35 ec2 minutes Signatures: Dispatcher [employer] Moraima Tong RN RN cg Prokisch, Amanda, RN RN ap3 Connie De Jesus RN RN kc6 Sweta Albert RN RN jj7 Bunny Stokes MD MD ec2 Corrections: (The following items were deleted from the chart) 08/01 21:35 21:34 Patient medically screened. ec2 ec2 22:20 20:58 Abdomen Pelvis W Con+CT.RAD.BRZ ordered. EDMS EDMS 08/02 03:37 01:17 Telemetry/MedSurg (Inpatient) ec2 cg 03:37 01:17 ec2 cg 05:31 01:17 Inpatient Admission ec2 ec2 05:31 01:17 Kyle Kelly ec2 ec2 05:31 01:17 Stable ec2 ec2 05:31 01:17 new ec2 ec2 05:31 01:17 have improved ec2 ec2 05:31 01:17 Standard ec2 ec2 05:31 01:17 Sepsis, unspecified organism ec2 ec2 05:31 01:17 UTI/ Urinary tract infection, site not specified ec2 ec2 05:31 01:17 Fistula of intestine ec2 ec2 05:31 03:37 BR ER HOLD cg ec2 05:31 03:37 ERHOLD- cg ec2 07:52 06:04 Colorectal Surgeon at [facility] ec2 kc6
--- NOTE | 2023-08-02 01:18 | ER ---
Nurse's Notes [facility] Name: Edwin Young Age: 57 yrs Sex: Male : 1965 Arrival Date: 08/01/2023 Time: 20:20 Bed 14 Private MD: Diagnosis: Sepsis, unspecified organism;Colovesical Fistula;UTI/ Urinary tract infection, site not specified Presentation: 08/01 20:40 Chief complaint: Patient states: he has severe burning pain in his penis and rectum for ap3 approx 2 days now. patient currently rates pain as a 10/10 on the pain scale. Coronavirus screen: At this time, the client does not indicate any symptoms associated with coronavirus-19. Ebola Screen: No symptoms or risks identified at this time. Initial Sepsis Screen: Does the patient meet any 2 criteria? No. Patient's initial sepsis screen is negative. Does the patient have a suspected source of infection? Yes: Dysuria/Frequency/Urgency/UTI Catheter related infection (Damon/dialysis/PICC/central line). Risk Assessment: Do you want to hurt yourself or someone else? Patient reports no desire to harm self or others. Note patient has erlinda nephrostomy in place upon arrival. Onset of symptoms was July 30, 2023. 20:40 Method Of Arrival: Wheelchair ap3 20:40 Acuity: JASWINDER 2 ap3 Triage Assessment: 20:43 General: Appears uncomfortable, Behavior is restless. Pain: Complains of pain in ap3 buttocks and groin Pain currently is 10 out of 10 on a pain scale. Pain began 2-3 days ago. Neuro: Level of Consciousness is awake, alert, obeys commands, Oriented to person, place, time, situation. Cardiovascular: Patient's skin is warm and dry. Respiratory: Airway is patent Respiratory effort is even, unlabored, Respiratory pattern is regular, symmetrical. : nephrostomy Reports pain. Historical: - Allergies: 20:43 No Known Allergies; ap3 - PMHx: 20:43 CHEMO; CHF; colon cancer; Gout; Hypertension; ap3 - PSHx: 20:43 Colostomy; L nephrostomy; ap3 - Immunization history:: Client reports receiving the 2nd dose of the Covid vaccine. - Social history:: Smoking status: Patient denies any tobacco usage or history of. Screenin:44 Abuse screen: Denies threats or abuse. Nutritional screening: No deficits noted. ap3 Tuberculosis screening: No symptoms or risk factors identified. 08/02 07:00 [facility] ED Fall Risk Assessment (Adult) History of falling in the last 3 months, kc6 including since admission No falls in past 3 months (0 pts) Confusion or Disorientation No (0 pts) Intoxicated or Sedated No (0 pts) Impaired Gait No (0 pts) Mobility Assist Device Used No (0 pt) Altered Elimination Yes (1 pt) Score/Fall Risk Level 0 - 2 = Low Risk. Assessment: 08/01 21:00 Reassessment: SEE TRIAGE ASSESSMENT. jj7 08/02 07:00 Reassessment: Patient appears in no apparent distress at this time. Patient and/or kc6 family updated on plan of care and expected duration. Pain level reassessed. Patient is alert, oriented x 3, equal unlabored respirations, skin warm/dry/pink. 07:04 Reassessment: PT HANDOVER GIVEN TO CONNIE SPENCER. jj7 Vital Signs: 08/01 20:40 BP 87 / 70; Pulse 160; Resp 18; Temp 98.6; Pulse Ox 97% on R/A; Weight 88.45 kg; Pain ap3 10; 21:45 BP 97 / 78; Pulse 117; Resp 17; Pulse Ox 96% ; jj7 22:00 BP 108 / 74; Pulse 105; Resp 12; Pulse Ox 89% ; jj7 23:00 BP 113 / 85; Pulse 103; Resp 16; Temp 98.7; Pulse Ox 100% on 2 lpm NC; jj7 23:20 BP 113 / 85; Pulse 92; ec2 08/02 00:00 BP 102 / 65; Pulse 92; Resp 12; Pulse Ox 97% on 2 lpm NC; jj7 01:00 BP 108 / 77; Pulse 101; Resp 16; Pulse Ox 100% ; jj7 02:00 BP 103 / 70; Pulse 92; Resp 14; Pulse Ox 100% ; Pain 7/10; jj7 03:19 BP 99 / 67; Pulse 95; Resp 17; Pulse Ox 100% on R/A; Pain /10; jj7 04:15 BP 115 / 79; Pulse 95; Resp 12; Pulse Ox 100% ; jj7 05:00 BP 98 / 67; Pulse 87; Resp 13; Pulse Ox 100% ; jj7 06:00 BP 100 / 65; Pulse 84; Resp 15; Pulse Ox 100% ; jj7 06:48 BP 98 / 71; Pulse 90; Resp 17; Pulse Ox 100% ; jj7 07:27 BP 103 / 75; Pulse 86; Resp 16 S; Pulse Ox 98% on R/A; kc6 08/01 20:40 Pain Scale: Adult ap3 02:00 Pain Scale: Adult jj7 03:19 Pain Scale: Adult jj7 ED Course: 08/01 20:24 Patient arrived in ED. kj1 20:24 Bunny Stokes MD is Attending Physician. ec2 20:43 Triage completed. ap3 20:44 Arm band placed on left wrist. ap3 20:44 Patient has correct armband on for positive identification. ap3 20:59 Sweta Albert RN is Primary Nurse. jj7 21:40 Chest Single View XRAY In Process Unspecified. EDMS 21:45 Inserted saline lock: 20 gauge in right antecubital area, using aseptic technique. kmf Blood collected. 21:45 Blood Culture Adult (2) Sent. kmf 21:46 CBC with Diff Sent. kmf 21:46 CMP Sent. kmf 21:46 Lactate w/ 2H reflex if indic. Sent. kmf 21:46 Protime (+inr) Sent. kmf 21:46 Ptt, Activated Sent. kmf 21:46 Urinalysis w/ reflexes Sent. kmf 22:56 Abdomen In Process Unspecified. EDMS 08/02 01:17 Kyle Kelly is Hospitalizing Provider. ec2 05:24 Initiated transfer with Nicholas at [facility]. rv1 05:32 [facility] declined due to capacity. rv1 05:40 Initiated transfer with Paz at [facility]. rv1 06:23 Pt accepted to [facility] ER by Dr. Cason. rv1 07:00 Report received from TJ TRIVEDI. kc6 07:01 No provider procedures requiring assistance completed. Patient transferred, IV remains jj7 in place. Administered Medications: 08/01 21:40 Drug: Rocephin IV 1 grams IV at calculated rate once; Given slow IV push per pharmacy jj7 instructions Route: IV; Rate: calculated rate; Site: right antecubital; 21:55 Follow up: IV Status: Completed infusion 22:39 Follow up: Response: No adverse reaction j 21:46 Drug: metroNIDAZOLE IVPB 500 mg 100 ml IVPB at 200 ml/hr once over 30 mins Volume: 100 jj7 ml; Route: IVPB; Rate: 200 ml/hr; Infused Over: 30 mins; Site: right antecubital; 22:39 Follow up: IV Status: Completed infusion 21:46 Drug: NS 0.9% IV 1000 ml IV at 1 bolus Per protocol; 1000 mL bolus Route: IV; Rate: 1 jj7 bolus; Site: right antecubital; 22:39 Follow up: IV Status: Completed infusion 21:47 Drug: morphine IVP or IV 4 mg IVP once over 4 mins Route: IVP; Infused Over: 4 mins; 7 Site: right antecubital; 22:40 Follow up: Response: Marked relief of symptoms j7 21:47 Drug: Ondansetron IVP 4 mg IVP once; over 2 minutes Route: IVP; Site: right antecubital;j7 22:40 Follow up: Response: Marked relief of symptoms j 23:15 Drug: NS 0.9% IV 1000 ml IV at 1 bolus Per protocol; 1000 mL bolus Route: IV; Rate: 1 jj7 bolus; Site: right antecubital; 08/02 00:21 Follow up: IV Status: Completed infusion 00:31 Drug: NS 0.9% IV 1000 ml IV at 1 bolus Per protocol; 1000 mL bolus Route: IV; Rate: 1 jj7 bolus; Site: right antecubital; 01:47 Follow up: IV Status: Completed infusion 00:31 Drug: morphine IVP or IV 4 mg IVP once over 4 mins Route: IVP; Infused Over: 4 mins; jj7 Site: right antecubital; 00:47 Follow up: Response: Marked relief of symptoms jj7 02:34 Drug: morphine IVP or IV 6 mg IVP once over 4 mins Route: IVP; Infused Over: 4 mins; jj7 Site: right antecubital; 02:45 Follow up: Response: Marked relief of symptoms jj7 Medication: 07:28 VIS not applicable for this client. kc6 Outcome: 01:17 Decision to Hospitalize by Provider. ec2 06:04 ER care complete, transfer ordered by . ec2 07:[address] [facility], [facility], Note: REPORT GIVEN TO ANU SPENCER [facility] [address] ER 07:28 Condition: stable kc6 07:52 Patient left the ED. kc6 Signatures: Dispatcher [employer] EDLibertad Bo RN RN ap3 Ira Yusuf kj1 Connie De Jesus RN RN kc6 Sweta Albert RN RN jj7 Sherron Em rv1 Bunny Stokes MD MD ec2 Kandis Whaley [facility] Corrections: (The following items were deleted from the chart) 08/01 20:45 20:40 BP 87 / 70; Pulse 74bpm; Resp 18bpm; Pulse Ox 97% RA; Temp 98.6F; 88.45 kg; Pain ap3 07/25, Adult; ap3 08/02 05:32 05:24 [facility] declined due to capacity rv1 rv1
[2023-08-02] MEDS ORDERED: MORPHINE 2 MG/ML SYR ONE (02:39)
--- NOTE | 2023-08-02 04:28 | P.HP ---
Certification for Inpatient Patient admitted to: Inpatient With expected LOS: <2 Midnights Patient will require the following post-hospital care: None Practitioner: I am a practitioner with admitting privileges, knowledge of patient current condition, hospital course, and medical plan of care. Services: Services provided to patient in accordance with Admission requirements found in Title 42 Section 412.3 of the Code of Federal Regulations Patient History Date of Service: 08/02/23 History of Present Illness: 57-year-old -Ang[place] male with a past medical history of colon cancer, chemo, hypertension, congestive heart failure, gout, presents to the emergency room with rectal pain. He reports history of colon cancer, he reports penile discharge and rectal discharge. He reports post colon resection, multiple ostomies, bilateral nephrostomy tubes in place. He reports symptoms started 2 days ago, he denies fever, chills, no reported nausea vomiting, chest pain or shortness of breath. Hypotensive on evaluation BP 87 / 70; Pulse 160; Resp 18; Temp 98.6; Pulse Ox 97% on R/A; CT of the abdomen pelvis : CT scan of the abdomen pelvis shows progressive metastatic disease, also concern for colovesical fistula which would be consistent with the patient's penile discharge as well as urinary tract infection noted. Patient has had all of his surgeries here, I will admit the patient for continued management of his complications and infections plan to admit for sepsis, UTI, rectal fistula. Allergies No Known Allergies Allergy (Verified 05/24/23 23:26) Home Medications: carvediloL [Coreg*] 3.125 mg PO BID 6AM 6PM #60 tab 05/11/23 Hydrocodone/Acetaminophen [Hydrocodone-Acetamin 10-325 mg] 1 each PO Q6HP PRN 05/24/23 - Past Medical/Surgical History Diabetic: No -: Systolic CHF -: HTN -: HLD -: Rectal Cancer Dx January 2021 -: Gout -: JANET (Dr. Hernandez/ Dr. Miranda) -: Chemo-Port placement - Family History Mother -: Heart disease, Hypertension, Other (see notes) Notes: CHF Father -: Diabetes - Social History Alcohol use: No CD- Drugs: No Caffeine use: Yes Physical Examination - Studies Laboratory Data (last 24 hrs) 08/01/23 08/01/23 08/01/23 21:25 21:25 21:25 WBC 13.70 H Hgb 8.6 L Hct 26.6 L Plt Count 687 H PT 13.5 H INR 1.23 APTT 33.2 Sodium 132 L Potassium 5.2 H BUN 46 H Creatinine 4.36 H Glucose 157 H Total Bilirubin 0.5 AST 6 L ALT < 10 L Alkaline Phosphatase 75 Assessment and Plan - Advance Directives Does patient have a Living Will: No Does patient have a Durable POA for Healthcare: No
[2023-08-02 08:35] VITALS: TEMP 98.7
[2023-08-02 08:46] VITALS: BP 103/75; O2SAT 98
--- NOTE | 2023-08-02 12:02 | RAD REPORT ---
EXAM DESCRIPTION: CT Abdomen and Pelvis Without Intravenous Contrast CLINICAL HISTORY: ABD PAIN TECHNIQUE: Axial computed tomography images of the abdomen and pelvis without intravenous contrast. Sagittal and coronal reformatted images were created and reviewed. This CT exam was performed usi ng one or more of the following dose reduction techniques: automated exposure control, adjustment o f the mA and/or kV according to patient size, and/or use of iterative reconstruction technique. COMPARISON: CT Abdomen Pelvis dated 10/19/2022 12/09/2022 and 05/24/2023 FINDINGS: Limitations: Limited secondary to unenhanced technique. Lung bases: Multiple pulmonary nodules are again demonstrated. Allowing for motion on the previou s study, these appear progressed in overall number and size. An index left lower lobe nodule on ser ies 201 image 2 measures 8 mm (previously 6 mm). ABDOMEN: Liver: Scattered hypodense hepatic lesions not definitively seen on the prior. Gallbladder and bile ducts: Unremarkable. No calcified stones. No ductal dilation. Pancreas: Unremarkable. No ductal dilation. Spleen: Unremarkable. No splenomegaly. Adrenals: Unremarkable. No mass. Kidneys and ureters: Left percutaneous nephrostomy catheter remains in place. Interval placement of a right percutaneous nephrostomy catheter. Minimal residual fullness of the renal collecting sys tems with urothelial thickening. No calculi. Stomach and bowel: Moderate stool. Left abdominal colostomy again demonstrated. Progressive abn ormal wall thickening of the residual rectosigmoid colon with central low density and gas which appea rs intimately associated with the posterior aspect of the urinary bladder. No obstruction. PELVIS: Appendix: Normal caliber appendix. No findings to suggest acute appendicitis. Bladder: The urinary bladder is partially decompressed. Moderate to severe wall thickening. Int raluminal gas is present. Reproductive: Unremarkable as visualized. ABDOMEN and PELVIS: Intraperitoneal space: Unremarkable. No free air. No significant fluid collection. Bones/joints: Multilevel spondylosis. No acute fracture. No dislocation. Soft tissues: Right abdominal wall stoma which appears to communicate with large bowel. Vasculature: Unremarkable. No abdominal aortic aneurysm. Lymph nodes: Retroperitoneal and mesenteric lymphadenopathy again demonstrated. An index left par a-aortic lymph node below the level of the renal vein on series 201 image 31 measures 1.8 cm in short axis (previously 1.3 cm). IMPRESSION: 1. Findings most compatible with progressive hepatic, lymphatic and pulmonary metastas es. 2. There is progressive abnormal thickening of the residual rectosigmoid colon with central low att enuation and gas which appears intimately associated with the posterior bladder wall thought in part related to a colovesical fistula. Given the previous surgery at this site, the possibility of recur rent malignancy or potentially an anastomotic dehiscence with associated infected collection/abscess may be considered. Overall, these findings have progressed over multiple studies. 3. Moderate to severe urinary bladder wall thickening in part related to degree of distention. Pl ease correlate clinically for cystitis. 4. Bilateral percutaneous nephrostomy catheters with minimal residual fullness of the renal collect ing systems. Mild urothelial thickening bilaterally. Please correlate clinically for urinary trac t infection. 5. Other findings as above. THIS REPORT CONTAINS FINDINGS THAT MAY BE CRITICAL TO PATIENT CARE: The findings were verbally discus sed via telephone conference with Dr. Bunny Stokes on 08/02/2023 12:58 AM CDT. The results were ackno wledged and understood. Electronically signed by: Boris Cordova MD 08/02/2023 1:01 AM CDT Due to temporary technical issues with the PACS/Fluency reporting system, reports are being signed by the in house radiologists without review as a courtesy to insure prompt reporting. The interpreting radiologist is fully responsible for the content of the report.
--- NOTE | 2023-08-02 12:24 | EKG ---
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
== END 2023-08-02 07:52 | disposition short-term general hospital (02) ==
LOC: ER 20:20
DX: A41.9 Sepsis, unspecified organism (principal); N32.1 Vesicointestinal fistula; N39.0 Urinary tract infection, site not specified; Z85.038 Personal history of other malignant neoplasm of large intestine; Z98.890 Other specified postprocedural states; I50.9 Heart failure, unspecified; I10 Essential (primary) hypertension
CPT/HCPCS: 93005; 87040 ×2; 87088; 85025; 81001; 87086; 36415; 85610; 83605 ×2; 85730; 80053; 87590; 87490; 74176; 71045; J2270; J2405; J7030 ×3; J0696; 87205

== ENCOUNTER 2023-08-22 23:58 | Inpatient (IN) | payer OTHER ==
--- OUTSIDE RECORDS SUMMARY | 2023-08-23 00:09 | XMS REPORT | Continuity of Care Document ---
:1965 Author Organization [facility] t Address [address] [facility] [address] [place] [address] Care Team Providers Name Role Phone Janell Charles MD Primary Care Physician KEVIN ATKINS Attending Clinician Unavailable BACILIO GALLOWAY Attending Clinician Unavailable Tarsha Mancera Attending Clinician Unavailable Jacinto Plunkett DO Attending Clinician Alma Bonilla MD Attending Clinician Roseann Gallardo DO Attending Clinician ROSEANN GALLARDO Attending Clinician Unavailable Doctor Unassigned, [place] Attending Clinician Unavailable EVE WILSON Attending Clinician Unavailable Parker Dietrich RN Attending Clinician Unavailable Derrick Dela Cruz MD Attending Clinician Nilam Lipscomb MA Attending Clinician Unavailable Samantha PRINCE, Gume Laird Attending Clinician [phone] Nils Cowan MD Attending Clinician Lex Mauricio MD Attending Clinician Michel Rdz Attending Clinician Unavailable Lalo Ruiz Attending Clinician Unavailable Nickell_K Attending Clinician Unavailable Clayton Dale MD Attending Clinician Eladio Sands MD Attending Clinician Lam PRINCE, Shanika Trimble Attending Clinician Ky Sibley Attending Clinician JANELL CHARLES Attending Clinician Unavailable JANELL CHARLES Attending Clinician Unavailable Seymour Sales Attending Clinician Unavailable GC_BCSS_Howell_DanSharonda Attending Clinician Unavailable Lesterrer Parviz PARMARin Attending Clinician Rhys Tan MD Attending Clinician [phone] JENNY ULLOA Attending Clinician Unavailable MD DALLIN LIU Attending Clinician Unavailable MD RHYS TAN Attending Clinician Unavailable JONATHAN COVINGTON Attending Clinician Unavailable BACILIO GALLOWAY Admitting Clinician Unavailable Bro Vargas Admitting Clinician Unavailable Alma Bonilla MD Admitting Clinician ALMA BONILLA Admitting Clinician Unavailable LEX MAURICIO Admitting Clinician Unavailable Michel Rdz Admitting Clinician Unavailable Seymour Sales Admitting Clinician Unavailable JANELL CHARLES Admitting Clinician Unavailable Nickell_K Admitting Clinician Unavailable ELADIO SANDS Admitting Clinician Unavailable _[facility]_Nader_Osorio Admitting Clinician Unavailable NILS COWAN Admitting Clinician Unavailable KNOW, DOES_NOT Admitting Clinician Unavailable DALLIN LIU Admitting Clinician Unavailable MD DALLIN LIU Admitting Clinician Unavailable MD NILS COWAN Admitting Clinician Unavailable Payers Payer Name Policy Type Policy Number Effective Date Expiration Date S lisset MEDICARE A B [id number] 2023 00:00:00 [facility] STAR [id number] 2023 PLAN 00:00:00 [facility] - [id number] ST[place] PL[place] - [place] (MEDICAID REPLACEMENT - HMO) [facility] [id number] (HMO) Problems Condition Condition Condition Status Onset Resolution Last Treating Co mments Source Name Details Category Date Date Treatment Clinician Date JANET (acute JANET (acute Disease Active 2022-10 U nivers kidney kidney 1-04 ity of injury) injury) 00:00: [place] 00 Medical Branch Other Other Disease Active 2022-10 Univers specified specified 1-04 ity of anemias anemias 00:00: 00 Medical Branch 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 00:00: [place] and and 00 Medical diastolic diastolic Bran ch congestive congestive heart heart failure failure VHD VHD Disease Active 2022-10 Univers (valvular (valvular 1-04 ity of heart heart 00:00: [place] disease) disease) 00 Medica l Branch Acute Acute Disease Active 2022-10 Univers abdominal abdominal 1 ity of pain pain 00:00: [place] 00 [facility] Branch 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 Univers Unspecifie Unspecifie 103 it y of d severe d severe 00:00: [place] protein-ca protein-ca 00 Me dical [facility] malnutriti malnutriti on on Hyperkalem Hyperkalem Disease Active M ethodi ia ia 9-11 st 00:00: Hospita 00 l Pyelonephr Pyelonephr Disease [...] Allergie 4-12 Clear s 00:00: Li 00 [facility] No Known DA Active U 2020-10 [facility] Allergie 1-24 [place] s 00:00: d 00 [facility] NO KNOWN Drug Active Univers ALLERGIE Class ity of S [facility] NO KNOWN Allergy Active [facility] Social History Social Habit Start Date Stop Date Quantity Comments Source History SDOH [facility] al History SDOH [facility] Gender identity [facility] Sexual orientation [facility] Education - What is 2023-08-18 2023-08-18 12th grade Unive rsity of the highest level 00:00:00 00:00:00 Na noriega of school you have Branch completed or the highest degree you have received? Tobacco use and 2023-08-18 2023-08-18 Smokeless Universit y of exposure 00:00:00 00:00:00 tobacco non-user [facility] dical [place] History of Social 2023-06-30 2023-06-[address] function 00:00:00 00:00:00 Hospital Alcohol intake 2023-03-22 2023-03-22 Lifetime [facility] 00:00:00 00:00:00 non-drinker Hospital (finding) Exposure to 2022-12-05 2022-12-15 Not sure University SARS-CoV-2 (event) 00:00:00 15:34:00 [facility] History SDOH 2021-08-01 2021-08-01 1 [facility] Alcohol Frequency 00:00:00 00:00:00 Hospita l Sex Ass[birth year] At [birth year] [facility] 00:00:00 00:00:00 Hospital Smoking Status Start Date Stop Date Source Never smoked tobacco [facility] Medications Ordered Filled Start Stop Current Ordering Indication Dosage Frequency Signature Comments Components Source Medication Medication Date Date Medication? Clinician (SIG) Name Name heparin 2022-10- 500U 500 Units, Uni vers lock flush 10-22 IV Push, ity of (HEPARIN 21:45: 21:25 ONCE, 1 [place] LOCKFLUSH(P 00 :00 dose, On Medi eliel ORCINE)(PF) [facility] ) 100 08/22/23 at unit/mL 1545, injection Routine 500 Units trifluridin 2022-10 Yes 35mg/m2 Take 35 Univers e-tipiraciL 1-07 mg/m2 by ity of (LONSURF) 15:56: [place] 20-8.19 mg 00 the Medical tablet morning Branch and 35 mg/m2 in the evening. ferrous 2022-10 Yes 325mg Take 1 Univers sulfate 325 -07 tablet by ity of mg (65 mg 15:56: [place] iron) 00 the Medical tablet morning. Branch sodium 2022-10 Yes [id number] 325mg Take 1 U nivers bicarbonate 10-22 [id number] tablet by i ty of 325 mg 00:00: mouth 2 [place] tablet 00 (two) Medical times Branch daily after breakfast and dinner. cefdinir 2022-10- Yes [id number] 300mg Take 1 Univers 300 mg 10-22 capsule by ity of capsule 00:00: 05:59 mouth in [place] 00 :00 the Medical morning Branch for 7 days. NaCl 0.45% 2022-10- No 1000mL at 50 Uni vers (1/2NS) IV 10-21- mL/hr, ity of infusion 14:00: 23:41 1,000 mL, Ramón as 1,000 mL 00 :34 IV Medical Infusion, Branch CONTINUOUS , Starting on Mon08/21/23 at 0800, Until Mon08/21/23 at 1741, Routine NaCl 0.45% 2022-10- No 1000mL at 75 Uni vers (1/2NS) IV 10-21 11-06 mL/hr, ity of infusion 06:00: 13:51 1,000 mL, Ramón as 1,000 mL 00 :08 IV Medical Infusion, Branch CONTINUOUS , Starting on Mon08/21/23 at 0000, Until Mon08/21/23 at 0751, Routine HYDROmorpho 2022-10- Yes .5mg 0.5 mg, Un viral ne 10-20 Slow IV ity of (DILAUDID) 23:41: 23:40 Push, [place] injection 23 :23 Q4HPRN, Medical 0.5 mg Starting Branch on 08/20/23 at 1741, Until 08/22/23 at 1740, Routine, breakthrou gh pain
Us e approved by (Faculty): ADC PROVIDER sodium 2022-10- No 10g 10 g, Univers zirconium 10-20 Oral, ity of cyclosilica 23:30: 23:47 DAILY, 1 [place] 00 :[place] dose, Medical (LOKELMA) First dose Bran ch 10 gram on Sun packet 10 g 08/20/23 at 1730, Routine sulfur 2022-10- No [id number] 5mL 5 mL, Univ ers hexafluorid 10-20 Intravenou i ty of e microsphr 14:30: 14:30 s, ONCE, 1 [place] (LUMASON) 00 :00 dose, On Medica l injection 5 Sun Branch mL 08/20/23 at 0830, Routine
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 Restricted medication : SMITH BARBOSA G NaCl 0.9% 2022-10 No IV Univers (NS) 10-19 Infusion, ity of PEDIATRIC 17:45: 04:50 at 75 [place] IV infusion 00 :16 mL/hr, Medica l CONTINUOUS Branch , Starting on 08/19/23 at 1245, Until [place] 08/20/23 at 2250, Routine sodium 2022-10 Yes 325mg 325 mg, Univers bicarbonate 10-19 Oral, ity of (ANTACID 16:45: BIDPC, [place] (SODIUM 00 First dose Medica l BICARBONATE on Sat Branch )) tablet 08/19/23 at 325 mg 1145, Until Discontinu ed, Routine furosemide 2022-10- No 20mg 20 mg, IV U nivers (LASIX) 10-19 Push, ity of injection 16:30: 16:00 ONCE, 1 [place] 20 mg 00 :00 dose, On Medical Sat Branch 08/19/23 at 1130, Routine cefTRIAXone 2022-10- No 1000mg 1,000 mg, Univers (ROCEPHIN) 10-19 IV ity of 1,000 mg in 15:30: 23:43 Piggyback, [place] NaCl 0.9% 00 :39 Q24H ABX, Medic al (NS) 100 mL 3 doses, Bran ch MINI-BAG First dose on 08/19/23 at 1030, Last dose on 08/21/23 at 1030, Administer over 30 Minutes, 100 mL
Reas on for Anti-Infec tive: Empiric Therapy for Suspected Infection< br>Empiric Therapy Site: Urine
D uration of therapy: 72 hours ergocalcife 2022-10 Yes [id number] 50,000 Un viral rol 1-04 Units, ity of (vitamin 14:00: Oral, [place] d2) 00 QWEEKLY, Medical (CALCIFEROL First dose Br anch ) capsule on Sat 50,000 08/19/23 at Units 0900, Until Discontinu ed, Routine HYDROmorpho 2022-10 No .5mg 0.5 mg, Un viral ne - 1105 Slow IV ity of (DILAUDID) 22:05: 23:04 Push, [place] injection 46 :46 Q4HPRN, Medical 0.5 mg Starting Branch on 08/18/23 at 1705, Until 08/20/23 at 1704, Routine, breakthrou gh pain
Us e approved by (Faculty): ADC PROVIDER oxyCODONE-a 2022-10 Yes 1{tbl} 1 tablet, Univers cetaminophe 1-03 Oral, ity of n 22:05: Q6HPRN, [place] (PERCOCET) 29 Starting Medic al 5-325 mg on Fri Branch per tablet 08/18/23 at 1 tablet 1705, Until Discontinu ed, Routine, Pain (scale 4-6) oxyCODONE-a 2022-10 Yes 2{tbl} 2 tablet, Univers cetaminophe 1-03 Oral, ity of n 22:05: Q8HPRConrad, [place] (PERCOCET) 18 Starting Medic al 5-325 mg on Fri Branch per tablet 08/18/23 at 2 tablet 1705, Until Discontinu ed, Routine, Pain (scale 7-10) trifluridin 2022-10 Yes 20mg/m2 40 mg Un viral e-tipiraciL 10-18 (rounded ity of (LONSURF) 13:00: from 37.4 Ramón as 20-8.19 mg 00 mg = 20 Medica l tablet 40 mg/m2 Branch mg ?1.87 m2), Oral, BID, First dose on Mon08/18/23 at 0800, Until Discontinu ed, Routine heparin 2022-10 Yes 5000U 5,000 Univers (porcine) 1-03 Units, ity of injection 11:00: Subcutaneo [place] 5,000 Units 00 us, Q8H, Medi eliel First dose Branch on Mon08/18/23 at 0600, Until Discontinu ed, Routine NaCl 0.9% 2022-10 No 1000mL at 125 Uni vers (NS) IV 10-18 1104 mL/hr, IV ity of infusion 09:00: 15:46 Infusion, Ramón as 1,000 mL 00 :42 CONTINUOUS Medic al , Starting Branch on Mon08/18/23 at 0400, Until 08/19/23 at 1046, Routine NaCl 0.9% 2022-10 No 1000mL at 999 Uni vers (NS) bolus 10-18 mL/hr, ity of infusion 09:00: 10:33 1,000 mL, Ramón as 1,000 mL 00 :15 IV Medical Piggyback, Branch ONCE, 1 dose, On Mon08/18/23 at 0400, STAT insulin 2022-10 No 5U 5 Units, Unive rs regular 10-18 Slow IV ity of human 08:05: 08:05 Push, [place] (HUMULIN R) 00 :00 ONCE, 1 Medic al injection 5 dose, On Bran ch Units Mon08/18/23 at 0315, IJEOMA
In dication for insulin: Hyperkalem ia- Please use the Insulin Protocol for Hyperkalem ia order set ondansetron 2022-10 Yes 4mg 4 mg, Slow Univers (ZOFRAN 10-18 IV Push, ity of (PF)) 07:58: Q6HPRN, [place] injection 4 12 Starting Medi eliel mg on Mon Branch 08/18/23 at 0258, Until Discontinu ed, Routine, Nausea and Vomiting (N/V) morpHINE (4 2022-10- No 4mg 4 mg, Slow Univers mg/mL) 10-18 IV Push, ity of injection 4 07:58: 22:06 Q4HPRN, [place] mg 07 :08 Starting Medical on Mon Branch 08/18/23 at 0258, Until Mon08/18/23 at 1706, Routine, Pain (scale 7-10) dextrose 2022-10- No 250mL 250 mL, IV U nivers 10% (D10W) 10-18 Infusion, ity of bolus 07:39: 09:01 ONCE, [place] infusion 00 :00 Administer Medic al 250 mL over 60 Branch Minutes, On Mon08/18/23 at 0245, For 1 dose
De xtrose 10% 250 mL bag contains:& nbsp;10 gm = 100 mL 20 gm = 200 mL 25 gm = 250 mL (whole bag) The maximum rate at which dextrose can be infused without producing glycosuria is 0.5 g/kg/hour. &nbs p;BUD: If wrapper is open bag is good for 30 days at room temperatur e.
morpHINE (4 2022-10 No 4mg 4 mg, Slow Univers mg/mL) 10-18 IV Push, ity of injection 4 06:17: 06:21 ONCE, 1 [place] mg 00 :00 dose, On Medical Fri Branch 08/18/23 at 0130, IJEOMA acetaminoph 2022-10 No 1000mg 1,000 mg, Univers en ADULT 10-18 IV ity of (OFIRMEV) 03:45: 04:39 Infusion, [place] injection 00 :00 at 400 Medical 1,000 mg mL/hr Branch Administer over 15 Minutes, ONCE, 1 dose, On [place] 08/17/23 at 2245, Routine
Indicatio n: Non-periop erative Patient
Approved by: Per Policy (NPO Status) NaCl 0.9% 2022-10 No 1000mL at 999 Uni vers (NS) bolus 10-18 mL/hr, ity of infusion 03:30: 07:58 1,000 mL, Ramón as 1,000 mL 00 :00 IV Medical Infusion, Branch ONCE, 1 dose, On [place] 08/17/23 at 2230, IJEOMA FENTanyl PF 2022-10 No 100ug 100 mcg, Univers (SUBLIMAZE 10-18 Slow IV ity o f (PF)) 02:49: 04:25 Push, [place] injection 00 :00 ONCE, 1 Medical 100 mcg dose, On Branch [facility] 08/17/23 at 2200, IJEOMA HYDROcodone 2022-1 Yes [id number] 1{tbl} Q6H Take 1 M ethodi -acetaminop 0-[address] hen (NORCO) 00:00: mouth Hospi ta 7.5-325 mg 00 every 6 l per tablet (six) hours as needed for moderate pain .chronic pain. Max Daily Amount: 4 tablets HYDROcodone 2022-1 Yes [id number] 1{tbl} Q6H Take 1 M ethodi -acetaminop 0-[address] hen (NORCO) 00:00: mouth Hospi ta 7.5-325 mg 00 every 6 l per tablet (six) hours as needed for moderate pain .chronic pain. Max Daily Amount: 4 tablets tamsulosin 2023-0 Yes .4mg QD Take 1 Metho di (FLOMAX) 9-[address] 0.4 mg 18:28: (0.4 mg Hospita capsule 08 total) by l mouth daily. tamsulosin 2023-0 Yes .4mg QD Take 1 Metho di (FLOMAX) 9-[address] 0.4 mg 18:28: (0.4 mg Hospita capsule 08 total) by l mouth daily. regorafenib 3-0 2023- No 160mg QD Take 4 Me thodi (STIVARGA) 9-17 09-[address] 40 mg chemo 18:28: 00:00 (160 mg Ho spita tablet 08 :00 total) by l mouth daily. regorafenib 2023-0 2023- No 160mg QD Take 4 Me thodi (STIVARGA) 9-17 09-[address] 40 mg chemo 18:28: 00:00 (160 mg Ho spita tablet 08 :00 total) by l mouth daily. polyethylen 2023-0 2023- No 17g QD Take 17 g Methodi e glycol 9-17 10-[address] (MIRALAX) 00:00: 04:59 daily for Ho spita 17 gram 00 :00 30 days. l packet polyethylen 3-0 2022- Yes 17g QD Take 17 g Methodi e glycol 9-17 10-[address] (MIRALAX) 00:00: 04:59 daily for Ho spita 17 gram 00 :00 30 days. l packet furosemide 2023-0 2023- No 40mg QD Take 1 Meth cordelia (LASIX) 40 9-16 09-16 tablet (40 st mg tablet 19:35: 00:00 mg total) Ho spita 03 :00 by mouth l daily. furosemide 2023-0 2023- No 40mg QD Take 1 Meth cordelia (LASIX) 40 9-16 -16 tablet (40 st mg tablet 19:35: 00:00 mg total) Ho spita 03 :00 by mouth l daily. carvediloL 2023-0 Yes 25mg QD Take 1 Metho di (COREG) 25 9-16 tablet (25 st MG tablet 19:34: mg total) Hos caity 58 by mouth l daily. carvediloL 2023-0 Yes 25mg QD Take 1 Metho di (COREG) 25 9-16 tablet (25 st MG tablet 19:34: mg total) Hos caity 58 by mouth l daily. morPHINE 2023-0 Yes [id number] 15mg Q.5D Take 1 Method i (MS CONTIN) 9-16 tablet (15 st 15 MG 12 hr 00:00: mg total) H ospita tablet 00 by mouth l every 12 (twelve) hours .chronic pain. Max Daily Amount: 30 mg morPHINE 2023-0 Yes [id number] 15mg Q4H Take 1 Method i immediate-r 9-16 tablet (15 st elease 15 00:00: mg total) Hos caity MG tablet 00 by mouth l every 4 (four) hours as needed for severe pain .acute pain, chronic pain. Max Daily Amount: 90 mg HYDROcodone 2023-0 Yes [id number] 1{tbl} Q4H Take 1 M ethodi -acetaminop 9-[address] hen (NORCO) 00:00: mouth Hospi ta 10-325 mg 00 every 4 l per tablet (four) hours as needed for moderate pain .acute pain. Max Daily Amount: 6 tablets morPHINE 2023-0 Yes [id number] 15mg Q.5D Take 1 Method i (MS CONTIN) 9-16 tablet (15 st 15 MG 12 hr 00:00: mg total) H ospita tablet 00 by mouth l every 12 (twelve) hours .chronic pain. Max Daily Amount: 30 mg morPHINE 2023-0 Yes [id number] 15mg Q4H Take 1 Method i immediate-r 9-16 tablet (15 st elease 15 00:00: mg total) Hos caity MG tablet 00 by mouth l every 4 (four) hours as needed for severe pain .acute pain, chronic pain. Max Daily Amount: 90 mg HYDROcodone 2023-0 Yes [id number] 1{tbl} Q4H Take 1 M ethodi -acetaminop 9-[address] hen (EndorphMe) 00:00: mouth Hospi ta 10-325 mg 00 every 4 l per tablet (four) hours as needed for moderate pain .acute pain. Max Daily Amount: 6 tablets ondansetron 2023-0 2023- No 8mg Q8H Take 1 Met hodi (Zofran) 8 9-16 10-17 tablet (8 st MG tablet 00:00: 04:59 mg total) Ho spita 00 :00 by mouth l every 8 (eight) hours as needed for nausea or vomiting for up to 30 days. ondansetron 2023-0 2023- No 8mg Q8H Take 1 Met hodi (Zofran) 8 9-16 10-17 tablet (8 st MG tablet 00:00: 04:59 mg total) Ho spita 00 :00 by mouth l every 8 (eight) hours as needed for nausea or vomiting for up to 30 days. HYDROcodone 2023-0 2023- No 1{tbl} Q6H Take 1 M ethodi -acetaminop 9-10 24-[address] hen (EndorphMe) 00:00: 00:00 mouth Hosp cristy 10-325 mg 00 :00 every 6 l per tablet (six) hours. HYDROcodone 2023-0 2023- No 1{tbl} Q6H Take 1 M ethodi -acetaminop 9-01 -[address] hen (EndorphMe) 00:00: 00:00 mouth Hosp cristy 10-325 mg [...] by mouth l daily. ertapenem 1 2022-0 2023- No 1g Q24H [...] IVPB daily for 14 days. ertapenem 1 3-0 2023- No 1g Q24H Infuse 1 g [...] caity 32 by mouth l daily. linezolid 3-0 2023- No 600mg Q.5D Take [...] a day for 14 days. linezolid 2022-0 2023- No 600mg Q.5D Take 1 Meth [...] Q.5D Take 1 Meth cordelia (ZYVOX) 600 03-[address] mg tablet 00:00: 04:59 (600 mg Hosp cristy 00 :00 total) by l mouth 2 (two) times a day for 14 days. linezolid 2023-0 2023- No 600mg Q.5D Take 1 Meth cordelia (ZYVOX) 600 03-28-[address] mg tablet 00:00: 04:59 (600 [...] ty of capsule 16:06: 00:00 mouth in [place] 28 :00 the Medical morning. Branch carvedilol 2023-0 2023- No 20mg Take 1 Univ ers 20 mg 24 hr 3-02 03-02 capsule by i ty of capsule 16:06: 00:00 mouth in [place] 28 :00 the Medical morning. Branch carvedilol 2023-0 Yes [id number] 20mg Take 1 U nivers 20 mg 24 hr 3-02 capsule by it y of capsule 00:00: mouth in [place] 00 the Medical morning. Branch furosemide 2023-0 Yes [id number] 40mg Take 1 U nivers 40 mg 3-02 tablet by ity of tablet 00:00: mouth in [place] 00 the Medical morning. Branch carvedilol 2023-0 Yes [id number] 20mg Take 1 U nivers 20 mg 24 hr 3-02 capsule by it y of capsule 00:00: mouth in [place] [address] the Medical morning. Branch furosemide 2023-0 Yes [id number] 40mg Take 1 U nivers 40 mg 3-02 tablet by ity of tablet 00:00: mouth in [place] 00 the Medical morning. Branch carvedilol 3-0 Yes [id number] 20mg Take 1 U nivers 20 mg 24 hr 3-02 capsule by it y of capsule 00:00: mouth in [place] 00 the Medical morning. Branch furosemide 3-0 Yes [id number] 40mg Take 1 U nivers 40 mg 3-02 tablet by ity of tablet 00:00: mouth in [place] 00 the Medical morning. Branch carvedilol 3-0 Yes [id number] 20mg Take 1 U nivers 20 mg 24 hr 3-02 capsule by it y of capsule 00:00: mouth in [place] 00 the Medical morning. Branch furosemide 3-0 Yes [id number] 40mg Take 1 U nivers 40 mg 3-02 tablet by ity of tablet 00:00: mouth in [place] 00 the Medical morning. Branch carvedilol 3-0 Yes [id number] 20mg Take 1 U nivers 20 mg 24 hr 3-02 capsule by it y of capsule 00:00: mouth in [place] 00 the Medical morning. Branch furosemide 3-0 Yes [id number] 40mg Take 1 U nivers 40 mg 3-02 tablet by ity of tablet 00:00: mouth in [place] 00 the Medical morning. Branch carvedilol 3-0 Yes [id number] 20mg Take 1 U nivers 20 mg 24 hr 3-02 capsule by it y of capsule 00:00: mouth in [place] 00 the Medical morning. Branch furosemide 3-0 Yes [id number] 40mg Take 1 U nivers 40 mg 3-02 tablet by ity of tablet 00:00: mouth in [place] 00 the Medical morning. Branch carvedilol 2023-0 2023- No [id number] 20mg Take 1 Univers 20 mg 24 hr 3-02 -03 capsule by i ty of capsule 00:00: 00:00 mouth in [place] 00 :00 the Medical morning. Branch furosemide 2023-0 2023- No [id number] 40mg Take 1 Univers 40 mg 3-02 -03 tablet by ity of tablet 00:00: 00:00 mouth in [place] 00 :00 the Medical morning. Branch amoxicillin 2023-0 Yes [...] 12 Medical (twelve) Branch hours. amoxicillin 2023-0 2023- No 875mg Take 1 Un viral 875 mg 2-24 11-03 tablet by ity of tablet 00:00: 00:00 mouth [place] 00 :00 every 12 Medical (twelve) Branch hours. furosemide [...] mouth 2 (two) times a day. carvedilol 2022-0 2023- No 20mg Q.5D Take 1 Meth cordelia CR (COREG 1-[address] CR) 20 MG 15:19: 00:00 (20 mg Hospi ta 24 hr 03 :00 total) by l capsule mouth 2 (two) times a day. carvedilol 2022-0 3- No 20mg Q.5D Take 1 Meth cordelia CR (COREG 1-11-[address] CR) 20 MG 15:19: 00:00 (20 mg Hospi ta 24 hr 03 :00 total) by l capsule mouth 2 (two) times a day. carvedilol 2022-0 3- No 20mg Q.5D Take 1 Meth [...] ity of tablet 00:00: 00:00 mouth in [place] 00 :00 the Medical morning. Branch furosemide 2021-10- No 40mg Take 1 Univ ers 40 mg 12-07 tablet by ity of tablet 00:00: 00:00 mouth in [place] 00 :00 the Medical morning. Branch No [...] Immunizations Ordered Filled Immunization Date Status Comments [facility] e Immunization Name Name FLUCELVAX QUAD [...] QUAD PF Unknown [facility] FLUCELVAX QUAD PF Unknown [facility] Vital Signs Vital Name Observation Time Observation Value Comments Source Systolic blood 2023-08-22 17:08:00 106 mm[Hg] Univer sity of pressure [facility] Diastolic blood 2023-08-22 17:08:00 77 mm[Hg] Unive rsity of pressure [facility] Heart rate 2023-08-22 17:08:00 101 /min [facility] Body temperature 2023-08-22 17:08:00 36.39 [facility] Carm[facility] Respiratory rate 2023-08-22 17:08:00 16 /min [facility] Oxygen saturation in 2023-08-22 17:08:00 98 /min [facility] Arterial blood by [facility] Pulse oximetry Branch Body weight 2023-08-22 09:04:00 73.483 kg [facility] BMI 2023-08-22 09:04:00 20.80 kg/m2 [facility] Body height 2023-08-18 02:40:00 188 cm [facility] WEIGHT 2023-08-10 07:45:00 72.349 kg WEIGHT 2023-08-06 09:00:00 72.031 kg WEIGHT 2023-08-03 07:32:00 74.844 kg HEIGHT 2023-08-02 09:01:00 188 cm WEIGHT 2023-08-02 09:01:00 86.183 kg WEIGHT 2023-08-10 07:45:00 72.349 kg WEIGHT 2023-08-06 09:00:00 72.031 kg WEIGHT 2023-08-03 07:32:00 74.844 kg HEIGHT 2023-08-02 09:01:00 188 cm WEIGHT 2023-08-02 09:01:00 86.183 kg Systolic blood 2022-12-15 21:45:00 126 mm[Hg] Univer sity of [facility] Diastolic blood 2022-12-15 21:45:00 86 mm[Hg] Unive rsity of [facility] Heart rate 2022-12-15 21:45:00 104 /min [facility] Body temperature 2022-12-15 21:45:00 35.94 [facility] 2022-12-15 21:45:00 188 cm [facility] Body weight 2022-12-15 21:45:00 106.595 kg [facility] BMI 2022-12-15 21:45:00 30.17 kg/m2 [facility] Oxygen saturation in 2022-12-15 21:45:00 97 /min [facility] Arterial blood by [facility] Pulse oximetry Branch Systolic blood 2023-07-01 20:39:20 104 mm[Hg] Method ist [facility] pressure Diastolic blood 2023-07-01 20:39:20 64 mm[Hg] Metho dist [facility] pressure Heart rate 2023-07-01 20:39:20 78 /min [facility] Body temperature 2023-07-01 20:39:20 37.06 Mary Carmen [facility] Respiratory rate 2023-07-01 20:39:20 18 /min [facility] Oxygen saturation in 2023-07-01 20:39:20 97 /min [facility] Arterial blood by Pulse oximetry Body weight 2023-06-27 08:29:31 85.548 kg [facility] [place] [facility] BMI 2023-06-27 08:29:31 24.21 kg/m2 [facility] [place] [facility] Body height 2023-06-26 20:43:00 188 cm [facility] Systolic blood 2023-03-28 21:07:06 122 mm[Hg] Method is Hospital pressure Diastolic blood 2023-03-28 21:07:06 78 mm[Hg] [facility] pressure Heart rate 2023-03-28 21:07:06 84 /min [facility] Body temperature 2023-03-28 21:07:06 36.17 [facility] Respiratory rate 2023-03-28 21:07:06 18 /min [facility] Oxygen saturation in 2023-03-28 21:07:06 97 /min [facility] Arterial blood by Pulse oximetry Body height 2023-03-23 00:01:00 188 cm [facility] Body weight 2023-03-23 00:01:00 113.399 kg [facility] BMI 2023-03-23 00:01:00 32.10 kg/m2 [facility] Systolic blood 2022-11-02 13:50:01 147 mm[Hg] Method ist Hospital pressure Diastolic blood 2022-11-02 13:50:01 87 mm[Hg] [facility] pressure Heart rate 2022-11-02 13:50:01 90 /min [facility] Body temperature 2022-11-02 13:50:01 36 [facility] Respiratory rate 2022-11-02 13:50:01 18 /min [facility] Oxygen saturation in 2022-11-02 13:50:01 99 /min [facility] Arterial blood by Pulse oximetry Body height 2022-10-25 11:00:00 188 cm [facility] Body weight 2022-10-25 11:00:00 113.399 kg [facility] BMI 2022-10-25 11:00:00 32.10 kg/m2 Methodis t Hospital Procedures Procedure Date / Time Performing Clinician Source Performed RENAL PANEL 2023-08-22 18:29:00 Harshil Miranda [facility] CBC WITH DIFF 2023-08-22 11:53:00 Mer Arreguin [facility] BASIC METABOLIC PANEL (NA, 2023-08-22 01:18:00 [facility], CO2, GLUCOSE, BUN, Medica [facility] Branch CREATININE, CA) BASIC METABOLIC PANEL (NA, 2023-08-21 11:10:00 Mer Arreguin [facility] K, CL, CO2, GLUCOSE, BUN, Medica l Branch CREATININE, CA) CBC WITH DIFF 2023-08-21 11:10:00 Rodríguez Mer [facility] N-TERMINAL PRO-BNP 2023-08-21 11:10:00 Martita Gonzalez [facility] TRANSTHORACIC ECHO (TTE) 2023-08-20 14:13:00 Linda Yu [facility] COMPLETE W/ CONTRAST Medical [facility] BASIC METABOLIC PANEL (NA, 2023-08-20 08:16:00 Thu Vergara [facility] K, CL, CO2, GLUCOSE, BUN, Medica l Branch CREATININE, CA) CBC WITH DIFF 2023-08-20 08:16:00 Madhuri Vergara [facility] COMP. METABOLIC PANEL 2023-08-19 09:00:00 Alma Bonilla [facility] ([id number]) [facility] CBC WITH DIFF 2023-08-19 09:00:00 Alma Bonilla [facility] N-TERMINAL PRO-BNP 2023-08-19 09:00:00 Alma Bonilla [facility] UREA NITROGEN, URINE 2023-08-18 13:44:00 Alma Bonilla [facility] RANDOM [facility] URINALYSIS 2023-08-18 13:42:00 Jacinto Plunkett [facility] URINE CULTURE 2023-08-18 13:42:00 Kiarra [facility] SODIUM, URINE RANDOM 2023-08-18 13:41:00 Alma Bonilla [facility] PROTEIN CREAT RATIO URINE 2023-08-18 13:41:00 Alma Bonilla [facility] RANDOM [facility] BLOOD CULTURE SCREEN 2023-08-18 13:22:00 Alma Bonilla [facility] ACUTE CARE VENOUS BLOOD 2023-08-18 11:25:00 Alma Bonilla [facility] GAS [facility] VITAMIN B12, LEVEL 2023-08-18 11:17:00 Alma Bonilla [facility] SEDIMENTATION RATE 2023-08-18 11:17:00 Fadia naila [facility] GLYCOSYLATED HEMOGLOBIN 2023-08-18 11:17:00 Alma Bonilla [facility] (A1C) [facility] PROCALCITONIN 2023-08-18 11:17:00 Fadia naila [facility] PHOSPHORUS 2023-08-18 11:16:00 Fadia naila [facility] URIC ACID 2023-08-18 11:16:00 Fadia naila [facility] MAGNESIUM 2023-08-18 11:16:00 Fadia naila [facility] C-REACTIVE PROTEIN 2023-08-18 11:16:00 Fadia naila [facility] THYROID STIMULATING 2023-08-18 11:16:00 Alma Bonilla [facility] HORMONE [facility] LIPID PANEL ([id number])(TOTAL 2023-08-18 11:16:00 Alma Bonilla [facility] CHOLESTEROL, [facility] TRIGLYCERIDES, HDL) VITAMIN D, 25-OH 2023-08-18 11:15:00 Fadia naila [facility] PROTHROMBIN TIME / INR 2023-08-18 11:14:00 Alma Bonilla [facility] POCT GLUCOSE (AUTOMATED) 2023-08-18 08:40:00 Alma Bonilla [facility] POCT GLUCOSE (AUTOMATED) 2023-08-18 07:57:00 Alma Bonilla [facility] HB ECG ROUTINE & RHYTHM 2023-08-18 07:56:[address] [facility] STRIP [facility] CT ABDOMEN PELVIS WO 2023-08-18 06:10:18 Jacinto Plunkett [facility] CONTRAST [facility] LACTIC ACID WHOLE BLOOD 2023-08-18 04:14:00 Kiarra [facility] BLOOD CULTURE SCREEN 2023-08-18 04:10:00 Kiarra Jacinto [facility] COMP. METABOLIC PANEL 2023-08-18 04:10:00 Kiarra Jacinto [facility] ([id number]) [facility] CBC WITH DIFF 2023-08-18 04:10:00 Kiarra [facility] XR CHEST 1 VW 2023-08-18 03:51:55 Kiarra [facility] NOTICE OF PRIVACY 2023-08-18 02:23:51 Doctor Unassigned, [facility] PRACTICES [facility] CONSENT/REFUSAL FOR 2023-08-18 02:23:15 Doctor Unassigned, [facility] DIAGNOSIS AND TREATMENT [facility] POC GLUCOSE 2023-07-01 19:33:00 [facility]SE 2023-07-01 18:13:00 [facility] CBC WITH PLATELET AND 2023-07-01 13:43:00 Derrick Dela Cruz [facility] DIFFERENTIAL POC GLUCOSE 2023-07-01 12:59:00 [facility] NT-PROBNP 2023-07-01 08:54:00 Mati [facility] BASIC METABOLIC PANEL 2023-07-01 08:54:00 Mati Noemi Jw [facility] ESTIMATED GFR 2023-07-01 08:54:00 Mati [facility] POC GLUCOSE 2023-07-01 01:59:00 Hang [facility] POC GLUCOSE 2023-06-30 22:47:00 [facility] POC GLUCOSE 2023-06-30 17:45:00 Hang [facility] POC GLUCOSE 2023-06-30 13:43:00 [facility]OLIC 2023-06-30 13:08:00 [facility] PANEL ESTIMATED GFR 2023-06-30 13:08:00 [facility] CBC HEMOGRAM 2023-06-30 09:00:00 Rolua Howard [facility] POC GLUCOSE 2023-06-30 02:17:00 [facility] POC GLUCOSE 2023-06-29 23:06:00 [facility] POC GLUCOSE 2023-06-29 18:32:00 [facility] GLU[facility]SE 2023-06-29 14:09:00 [facility] ESTIMATED GFR 2023-06-29 10:02:00 Nils Cowan spital URIC ACID LEVEL 2023-06-29 10:02:00 Derrick Dela Cruz spital SMEAR REVIEW 2023-06-29 10:02:00 Nils Cowan spital CBC WITH PLATELET AND 2023-06-29 10:02:00 Nils Cowan [facility] DIFFERENTIAL COMPREHENSIVE METABOLIC 2023-06-29 10:02:00 Nils Cowan [facility] PANEL NT-PROBNP 2023-06-29 10:02:00 [facility] CARCINOEMBRYONIC ANTIGEN 2023-06-29 10:02:00 Derrick Dela Cruz [facility] POC GLUCOSE 2023-06-29 07:07:00 [facility] GLUCOSE 2023-06-28 17:55:00 [facility] PREPARE RBC 2023-06-28 16:14:00 Derrick Dela Cruz spital TYPE AND SCREEN 2023-06-28 16:14:00 Derrick Dela Cruz spital BASIC METABOLIC PANEL 2023-06-28 16:12:00 [facility] ESTIMATED GFR 2023-06-28 16:12:00 [facility] POC GLUCOSE 2023-06-28 16:11:00 [facility] VENOUS BLOOD GAS 2023-06-28 15:36:00 [facility] POC GLUCOSE 2023-06-28 15:35:00 [facility] PHOSPHORUS LEVEL 2023-06-28 15:09:00 [facility] NT-PROBNP 2023-06-28 15:09:00 [facility] BETA HYDROXYBUTYRATE 2023-06-28 15:09:00 [facility] POC GLUCOSE 2023-06-28 13:52:00 [facility] WITH PLATELET AND 2023-06-28 10:16:00 Camryn [facility] DIFFERENTIAL COMPREHENSIVE METABOLIC 2023-06-28 10:16:00 Camryn [facility] PANEL ESTIMATED GFR 2023-06-28 10:16:00 Nlis Cowan spital PHOSPHORUS LEVEL 2023-06-28 10:16:00 Nils Cowan H ospital POC GLUCOSE 2023-06-28 02:24:00 [facility] GLU[facility]SE 2023-06-27 18:17:00 [facility] SODIUM LEVEL, URINE, 2023-06-27 13:39:00 [facility] RANDOM CHLORIDE LEVEL, URINE, 2023-06-27 13:39:00 [facility] RANDOM PROTEIN, URINE, RANDOM 2023-06-27 13:39:00 [facility] ALBUMIN WITH CREATININE 2023-06-27 13:39:00 [facility] AND RATIO, RANDOM URINE CREATININE LEVEL, URINE, 2023-06-27 13:39:00 [facility] RANDOM OSMOLALITY, URINE 2023-06-27 13:39:00 [facility] POC GLUCOSE 2023-06-27 13:34:00 Nils Cowan Ho spital CBC WITH PLATELET AND 2023-06-27 09:23:00 [facility]FFERENTIAL COMPREHENSIVE METABOLIC 2023-06-27 09:23:00 Camryn, [facility] PANEL ESTIMATED GFR 2023-06-27 09:23:00 Camryn greer [facility] spital POC GLUCOSE 2023-06-27 05:05:00 Camryn [facility] spital RESPIRATORY PATHOGEN PANEL 2023-06-27 04:08:00 [facility] WITH COVID-19 RT-PCR Eitan LACTIC ACID LEVEL, SEPSIS 2023-06-27 04:08:00 [facility] REPEAT 2X EVERY Chana 3 HOURS POC GLUCOSE 2023-06-27 03:54:00 Camryn [facility] spital POC GLUCOSE 2023-06-27 03:26:00 Camryn [facility] spital ECG 12-LEAD 2023-06-27 02:49[facility] 2023-06-27 02:43:49 [facility] INTERPRETATION Chana CT RENAL STONE PROTOCOL 2023-06-27 01:25:47 [facility] Chana URINE CULTURE 2023-06-26 23:55:00 [facility] CBC WITH PLATELET AND 2023-06-26 23:37:00 [facility] DIFFERENTIAL [facility] COMPREHENSIVE METABOLIC 2023-06-26 23:37:00 [facility] PANEL Eitan LIPASE LEVEL 2023-06-26 23:37:00 [facility] ospital Eitan URINALYSIS SCREEN AND 2023-06-26 23:37:00 [facility] MICROSCOPY, WITH REFLEX TO Eitan CULTURE LACTIC ACID LEVEL, SEPSIS 2023-06-26 23:37:00 [facility] - NOW AND REPEAT 2X EVERY Chana 3 HOURS ESTIMATED GFR 2023-06-26 23:37:00 [facility] [id number] 2023-06-14 00:00:00 KAREN.01 [facility] [id number] 2023-06-14 00:00:00 KAREN.01 [facility] PICC INSERTION REQUEST 2023-03-28 14:05:23 Justa Winter [facility] CBC WITH PLATELET AND 2023-03-28 10:15[facility]00 [facility] DIFFERENTIAL BASIC METABOLIC PANEL 2023-03-28 10:15:00 [facility] ESTIMATED GFR 2023-03-28 10:15:00 [facility] CBC WITH PLATELET AND 2023-03-27 09:08:00 [facility] DIFFERENTIAL BASIC METABOLIC PANEL 2023-03-27 09:08:00 [facility] VANCOMYCIN LEVEL, RANDOM 2023-03-27 09:08:00 [facility] ESTIMATED GFR 2023-03-27 09:08:00 [facility] CBC WITH PLATELET AND 2023-03-26 09:53:00 [facility] DIFFERENTIAL BASIC METABOLIC PANEL 2023-03-26 09:53:00 [facility] ESTIMATED GFR 2023-03-26 09:53:00 [facility] CBC WITH PLATELET AND 2023-03-25 09:05:00 [facility] DIFFERENTIAL BASIC METABOLIC PANEL 2023-03-25 09:05:00 [facility] ESTIMATED GFR 2023-03-25 09:05:00 [facility] MANUAL DIFFERENTIAL 2023-03-25 09:05:00 [facility] CBC WITH PLATELET AND 2023-03-24 16:23:00 [facility] DIFFERENTIAL BASIC METABOLIC PANEL 2023-03-24 16:23:00 [facility] ESTIMATED GFR 2023-03-24 16:23:00 [facility] TRANSFUSE RED BLOOD CELLS 2023-03-23 16:26:00 [facility] TRANSFUSE RED BLOOD CELLS 2023-03-23 12:38:00 [facility] PREPARE RBC 2023-03-23 10:11:00 [facility] TYPE AND SCREEN 2023-03-23 10:11:00 [facility] CBC WITH PLATELET AND 2023-03-23 09:33:00 [facility]FFERENTIAL COMPREHENSIVE METABOLIC 2023-03-23 09:33:00 [facility] PANEL ESTIMATED GFR 2023-03-23 09:33:00 [facility] MANUAL DIFFERENTIAL 2023-03-23 09:33:00 [facility] ESTIMATED GFR 2023-03-23 08:45:00 [facility] TROPONIN T 2023-03-23 03:03:00 [facility] LACTIC ACID LEVEL, SEPSIS 2023-03-23 03:03:00 [facility] - NOW AND REPEAT 2X EVERY 3 HOURS CREATININE LEVEL, URINE, 2023-03-23 01:44:00 [facility] RANDOM SODIUM LEVEL, URINE, 2023-03-23 01:44:00 [facility] RANDOM PROTEIN, URINE, RANDOM 2023-03-23 01:44:00 [facility] URINE CULTURE 2023-03-23 00:49:00 [facility] URINALYSIS SCREEN AND 2023-03-23 00:24:00 [facility] MICROSCOPY, WITH REFLEX TO CULTURE LACTIC ACID LEVEL, SEPSIS 2023-03-22 23:45:00 [facility] NOW AND REPEAT 2X EVERY 3 HOURS COMPREHENSIVE METABOLIC 2023-03-22 23:27:00 [facility] PANEL TROPONIN T 2023-03-22 23:27:00 [facility] CREATINE KINASE, TOTAL 2023-03-22 23:27:00 [facility] ([facility]) ESTIMATED GFR 2023-03-22 23:27:00 Clayton Dale spital VENOUS BLOOD GAS 2023-03-22 22:41:00 Clayton Dale ospital BLOOD CULTURE, AEROBIC & 2023-03-22 22:29:00 Clayton Dale [facility] ANAEROBIC CBC WITH PLATELET AND 2023-03-22 22:27:00 Dale [facility] DIFFERENTIAL LACTIC ACID LEVEL, SEPSIS 2023-03-22 22:27:00 Clayton Dale [facility] - NOW AND REPEAT 2X EVERY 3 HOURS MANUAL DIFFERENTIAL 2023-03-22 22:27:00 Clayton Dale [facility] XR CHEST 1 VW PORTABLE 2023-03-22 22:00:04 Chito [facility] ECG 12-LEAD 2023-03-22 21:26:46 Clayton Dale spital ESTIMATED GFR 2023-03-22 21:13:[address] ABDOMEN PELVIS WO 2023-03-22 21:10:07 Clayton Dale [facility] CONTRAST ECG ED PRELIMINARY 2023-03-22 20:41:38 [facility] INTERPRETATION OR CRITICAL CARE 2023-03-22 20:41:38 [facility]/INJURED PATIENT INIT 30-74 MIN CBC WITH PLATELET AND 2022-11-02 11:12:00 Camryn [facility] DIFFERENTIAL BASIC METABOLIC PANEL 2022-11-02 11:12:00 Camryn [facility] ESTIMATED GFR 2022-11-02 11:12:00 [facility] CBC WITH PLATELET AND 2022-11-01 11:35:00 Camryn [facility] DIFFERENTIAL BASIC METABOLIC PANEL 2022-11-01 11:35:00 Camryn [facility] ESTIMATED GFR 2022-11-01 11:35:00 [facility] PROTEIN, URINE, RANDOM 2022-10-31 19:03:00 [facility] ALBUMIN WITH CREATININE 2022-10-31 19:03:00 [facility] AND RATIO, RANDOM URINE CREATININE LEVEL, URINE, 2022-10-31 19:03:[address] Mine quintana [facility] RANDOM CBC WITH PLATELET AND 2022-10-31 12:10:00 [facility]FFER[facility] BASIC METABOLIC PANEL 2022-10-31 12:10:00 Camryn, [facility] ESTIMATED GFR 2022-10-31 12:10:00 Camryn [facility] spital CBC WITH PLATELET AND 2022-10-30 11:30:00 [facility] DIFFERENTIAL BASIC METABOLIC PANEL 2022-10-30 11:30:00 [facility] ESTIMATED GFR 2022-10-30 11:30:00 Camryn [facility] spital CBC WITH PLATELET AND 2022-10-29 11:45:00 [facility] DIFFERENTIAL BASIC METABOLIC PANEL 2022-10-29 11:30:00 [facility] ESTIMATED GFR 2022-10-29 11:30:00 Camryn [facility] spital IR LEFT NEPHROSTOMY 2022-10-28 23:27:00 Yifan [facility] INITIAL PLACEMENT IR RIGHT NEPHROSTOGRAM NEW 2022-10-28 23:27:00 [facility] ACCESS CBC WITH PLATELET AND 2022-10-28 11:29:00 [facility] DIFFERENTIAL COMPREHENSIVE METABOLIC 2022-10-28 11:29:00 [facility] GFR 2022-10-28 11:29:00 Camryn [facility] spital CBC WITH PLATELET AND 2022-10-27 12:38:00 [facility] DIFFERENTIAL COMPREHENSIVE METABOLIC 2022-10-27 12:38:00 [facility] PANEL BASIC METABOLIC PANEL 2022-10-27 12:38:00 [facility] ESTIMATED GFR 2022-10-27 12:38:00 [facility] MRI PELVIS W WO CONTRAST 2022-10-26 16:51:00 Derrick Dela Cruz [facility] MRI ABDOMEN W WO CONTRAST 2022-10-26 16:40:00 [facility] COVID-19 QUALITATIVE 2022-10-26 13:42:00 Rehrer, [facility] RT-PCR CBC WITH PLATELET AND 2022-10-26 09:30:00 Camryn, [facility] DIFFERENTIAL COMPREHENSIVE METABOLIC 2022-10-26 09:30:00 Camryn, [facility] PANEL PHOSPHORUS LEVEL 2022-10-26 09:30:00 [facility] CARCINOEMBRYONIC ANTIGEN 2022-10-26 09:30:00 [facility] FERRITIN LEVEL 2022-10-26 09:30[facility]00 [facility] TIME WITH INR 2022-10-26 09:30:00 [facility] 2022-10-26 09:30:00 Camryn [facility] spital CT CHEST WO CONTRAST 2022-10-25 23:50:23 [facility] US RENAL 2022-10-25 17:30:04 [facility] URINALYSIS SCREEN AND 2022-10-25 17:01:00 [facility] MICROSCOPY, WITH REFLEX TO CULTURE SODIUM LEVEL, URINE, 2022-10-25 17:01:00 [facility] RANDOM CHLORIDE LEVEL, URINE, 2022-10-25 17:01:00 [facility] RANDOM CREATININE LEVEL, URINE, 2022-10-25 17:01:00 [facility] RANDOM URINE CULTURE 2022-10-25 16:55:[address] [facility] [address] ABDOMEN PELVIS WO 2022-10-25 14:31:42 Rehrer, [facility] CONTRAST CBC WITH PLATELET AND 2022-10-25 12:41:00 Rehrer, [facility] DIFFERENTIAL COMPREHENSIVE METABOLIC 2022-10-25 12:41:00 Rehrer, [facility] PANEL LIPASE LEVEL 2022-10-25 12:41:00 Rehrer, [facility] URINALYSIS SCREEN AND 2022-10-25 12:41:00 Rehrer, [facility] MICROSCOPY, WITH REFLEX TO CULTURE LACTIC ACID LEVEL 2022-10-25 12:41:00 Rehrer, [facility] ESTIMATED GFR 2022-10-25 12:41:00 Amador Beatty URINE CULTURE 2022-10-25 12:30:00 Rehrer, [facility] CT CHEST EXTERNAL STUDY 2022-08-16 16:25:00 Rhys Tan [facility] Jeremy Plan of Care Planned Activity Planned Date Details Comments Source Future Scheduled 2023 COVID-19 VACCINE (#1) [facility] Test 00:49:08 [code = COVID-19 VACCINE (#1)] Future Scheduled 2023 Pneumococcal Vaccine: [facility] Test 00:49:08 Pediatrics (0 to 5 Years) and At-Risk Patients (6 to 64 Years) (1 - PCV) [code = Pneumococcal Vaccine: Pediatrics (0 to 5 Years) and At-Risk Patients (6 to 64 Years) (1 - PCV)] Future Scheduled 2023 Hepatitis C screening [facility] Test 00:49:08 (procedure) [code = 110721583] Future Scheduled 2023 SHINGLES VACCINES (1 Met [facility] Test 00:49:08 of 2) [code = SHINGLES VACCINES (1 of 2)] Future Scheduled 2023 INFLUENZA VACCINE (#1) [facility] Test 00:49:08 [code = INFLUENZA VACCINE (#1)] Future Scheduled 2023 HEPATITIS B VACCINES Met [facility] Test 00:49:08 (1 of 3 - Risk 3-dose series) [code = HEPATITIS B VACCINES (1 of 3 - Risk 3-dose series)] Future Scheduled 2023-08-01 HEPATITIS B VACCINES Met [facility] Test 16:40:08 (1 of 3 - 3-dose series) [code = HEPATITIS B VACCINES (1 of 3 - 3-dose series)] Future Scheduled 2023-08-01 COVID-19 VACCINE (#1) [facility] Test 16:40:08 [code = COVID-19 VACCINE (#1)] Future Scheduled 2023-08-01 Pneumococcal Vaccine: [facility] Test 16:40:08 Pediatrics (0 to 5 Years) and At-Risk Patients (6 to 64 Years) (1 - PCV) [code = Pneumococcal Vaccine: Pediatrics (0 to 5 Years) and At-Risk Patients (6 to 64 Years) (1 - PCV)] Future Scheduled 2023-08-01 Hepatitis C screening [facility] Test 16:40:08 (procedure) [code = [id number]] Future Scheduled 2023-08-01 SHINGLES VACCINES (1 Met [facility] Test 16:40:08 of 2) [code = SHINGLES VACCINES (1 of 2)] Future Scheduled 2023-08-01 INFLUENZA VACCINE (#1) [facility] Test 16:40:08 [code = INFLUENZA VACCINE (#1)] Future Scheduled 2023-08-01 RSV VACCINES > 60 YR Met [facility] Test 16:40:08 (1 - 1-dose 60+ series) [code = RSV VACCINES > 60 YR (1 - 1-dose 60+ series)] Future Scheduled 2023-06-13 Pneumococcal Vaccine: [facility] Test 01:16:35 Pediatrics (0 to 5 Years) and At-Risk Patients (6 to 64 Years) (1 - PCV) [code = Pneumococcal Vaccine: Pediatrics (0 to 5 Years) and At-Risk Patients (6 to 64 Years) (1 - PCV)] Future Scheduled 2023-06-13 Hepatitis C screening [facility] Test 01:16:35 (procedure) [code = [id number]] Future Scheduled 2023-06-13 SHINGLES VACCINES (1 Met [facility] Test 01:16:35 of 2) [code = SHINGLES VACCINES (1 of 2)] Future Scheduled 2023-06-13 COVID-19 VACCINE (5 - [facility] Test 01:16:35 Moderna series) [code = COVID-19 VACCINE (5 - Moderna series)] Future Scheduled 2023-06-13 INFLUENZA VACCINE (#1) [facility] Test 01:16:35 [code = INFLUENZA VACCINE (#1)] Future Scheduled 2023-06-13 Pneumococcal Vaccine: [facility] Test 01:16:35 Pediatrics (0 to 5 Years) and At-Risk Patients (6 to 64 Years) (1 - PCV) [code = Pneumococcal Vaccine: Pediatrics (0 to 5 Years) and At-Risk Patients (6 to 64 Years) (1 - PCV)] Future Scheduled 2023-06-13 Hepatitis C screening [facility] Test 01:16:35 (procedure) [code = 209901563] Future Scheduled 2023-06-13 SHINGLES VACCINES (1 Met [facility] Test 01:16:35 of 2) [code = SHINGLES VACCINES (1 of 2)] Future Scheduled 2023-06-13 COVID-19 VACCINE (5 - [facility] Test 01:16:35 Moderna series) [code = COVID-19 VACCINE (5 - Moderna series)] Future Scheduled 2023-06-13 INFLUENZA VACCINE (#1) [facility] Test 01:16:35 [code = INFLUENZA VACCINE (#1)] Future Scheduled 2023-05-22 Pneumococcal Vaccine: [facility] Test 00:52:43 Pediatrics (0 to 5 Years) and At-Risk Patients (6 to 64 Years) (1 - PCV) [code = Pneumococcal Vaccine: Pediatrics (0 to 5 Years) and At-Risk Patients (6 to 64 Years) (1 - PCV)] Future Scheduled 2023-05-22 Hepatitis C screening [facility] Test 00:52:43 (procedure) [code = [id number]] Future Scheduled 2023-05-22 SHINGLES VACCINES (1 Met [facility] Test 00:52:43 of 2) [code = SHINGLES VACCINES (1 of 2)] Future Scheduled 2023-05-22 COVID-19 VACCINE (5 - [facility] Test 00:52:43 Moderna series) [code = COVID-19 VACCINE (5 - Moderna series)] Future Scheduled 2023-05-22 INFLUENZA VACCINE Method [facility] Test 00:52:43 [code = INFLUENZA VACCINE] Future Scheduled 2023-05-22 Pneumococcal Vaccine: [facility] Test 00:52:43 Pediatrics (0 to 5 Years) and At-Risk Patients (6 to 64 Years) (1 - PCV) [code = Pneumococcal Vaccine: Pediatrics (0 to 5 Years) and At-Risk Patients (6 to 64 Years) (1 - PCV)] Future Scheduled 2023-05-22 Hepatitis C screening [facility] Test 00:52:43 (procedure) [code = 962050177] Future Scheduled 2023-05-22 SHINGLES VACCINES (1 Met [facility] Test 00:52:43 of 2) [code = SHINGLES VACCINES (1 of 2)] Future Scheduled 2023-05-22 COVID-19 VACCINE (5 - [facility] Test 00:52:43 Moderna series) [code = COVID-19 VACCINE (5 - Moderna series)] Future Scheduled 2023-05-22 INFLUENZA VACCINE Method [facility] Test 00:52:43 [code = INFLUENZA VACCINE] Future Scheduled 2023-04-19 Pneumococcal Vaccine: [facility] Test 07:50:51 Pediatrics (0 to 5 Years) and At-Risk Patients (6 to 64 Years) (1 - PCV) [code = Pneumococcal Vaccine: Pediatrics (0 to 5 Years) and At-Risk Patients (6 to 64 Years) (1 - PCV)] Future Scheduled 2023-04-19 Hepatitis C screening [facility] Test 07:50:51 (procedure) [code = [id number]] Future Scheduled 2023-04-19 SHINGLES VACCINES (1 Met [facility] Test 07:50:51 of 2) [code = SHINGLES VACCINES (1 of 2)] Future Scheduled 2023-04-19 COVID-19 VACCINE (5 - [facility] Test 07:50:51 Moderna series) [code = COVID-19 VACCINE (5 - Moderna series)] Future Scheduled 2023-04-19 INFLUENZA VACCINE Method [facility] Test 07:50:51 [code = INFLUENZA VACCINE] Future Scheduled 2023-04-07 Pneumococcal Vaccine: [facility] Test 08:01:08 Pediatrics (0 to 5 Years) and At-Risk Patients (6 to 64 Years) (1 - PCV) [code = Pneumococcal Vaccine: Pediatrics (0 to 5 Years) and At-Risk Patients (6 to 64 Years) (1 - PCV)] Future Scheduled 2023-04-07 Hepatitis C screening [facility] Test 08:01:08 (procedure) [code = [id number]] Future Scheduled 2023-04-07 SHINGLES VACCINES (1 [facility] Test 08:01:08 of 2) [code = SHINGLES VACCINES (1 of 2)] Future Scheduled 2023-04-07 COVID-19 VACCINE (5 - [facility] Test 08:01:08 Moderna series) [code = COVID-19 VACCINE (5 - Moderna series)] Future Scheduled 2023-04-07 INFLUENZA VACCINE Method [facility] Test 08:01:08 [code = INFLUENZA VACCINE] Future Scheduled 2023-03-31 Pneumococcal Vaccine: [facility] Test 10:53:42 Pediatrics (0 to 5 Years) and At-Risk Patients (6 to 64 Years) (1 - PCV) [code = Pneumococcal Vaccine: Pediatrics (0 to 5 Years) and At-Risk Patients (6 to 64 Years) (1 - PCV)] Future Scheduled 2023-03-31 Hepatitis C screening [facility] Test 10:53:42 (procedure) [code = 255933108] Future Scheduled 2023-03-31 SHINGLES VACCINES (1 Met [facility] Test 10:53:42 of 2) [code = SHINGLES VACCINES (1 of 2)] Future Scheduled 2023-03-31 COVID-19 VACCINE (5 - [facility] Test 10:53:42 Moderna series) [code = COVID-19 VACCINE (5 - Moderna series)] Future Scheduled 2023-03-31 INFLUENZA VACCINE Method [facility] Test 10:53:42 [code = INFLUENZA VACCINE] Future Scheduled 2023-01-16 Pneumococcal Vaccine: [facility] Test 20:02:08 Pediatrics (0 to 5 Years) and At-Risk Patients (6 to 64 Years) (1 - PCV) [code = Pneumococcal Vaccine: Pediatrics (0 to 5 Years) and At-Risk Patients (6 to 64 Years) (1 - PCV)] Future Scheduled 2023-01-16 Hepatitis C screening [facility] Test 20:02:08 (procedure) [code = [id number]] Future Scheduled 2023-01-16 SHINGLES VACCINES (1 Met [facility] Test 20:02:08 of 2) [code = SHINGLES VACCINES (1 of 2)] Future Scheduled 2023-01-16 COLONOSCOPY SCREENING [facility] Test 20:02:08 [code = COLONOSCOPY SCREENING] Future Scheduled 2023-01-16 COVID-19 VACCINE (5 - [facility] Test 20:02:08 Booster for Moderna series) [code = COVID-19 VACCINE (5 - Booster for Moderna series)] Future Scheduled 2023-01-16 INFLUENZA VACCINE Method [facility] Test 20:02:08 [code = INFLUENZA VACCINE] Future Scheduled 2022-12-06 Pneumococcal Vaccine: [facility] Test 08:31:10 Pediatrics (0 to 5 Years) and At-Risk Patients (6 to 64 Years) (1 - PCV) [code = Pneumococcal Vaccine: Pediatrics (0 to 5 Years) and At-Risk Patients (6 to 64 Years) (1 - PCV)] Future Scheduled 2022-12-06 Hepatitis C screening [facility] Test 08:31:10 (procedure) [code = [id number]] Future Scheduled 2022-12-06 SHINGLES VACCINES (1 Met [facility] Test 08:31:10 of 2) [code = SHINGLES VACCINES (1 of 2)] Future Scheduled 2022-12-06 COLONOSCOPY SCREENING [facility] Test 08:31:10 [code = COLONOSCOPY SCREENING] Future Scheduled 2022-12-06 INFLUENZA VACCINE Method [facility] Test 08:31:10 [code = INFLUENZA VACCINE] Future Scheduled 2022-12-06 COVID-19 VACCINE (5 - [facility] Test 08:31:10 Booster for Moderna series) [code = COVID-19 VACCINE (5 - Booster for Moderna series)] Future Scheduled 2022-11-30 Pneumococcal Vaccine: [facility] Test 08:08:13 Pediatrics (0 to 5 Years) and At-Risk Patients (6 to 64 Years) (1 - PCV) [code = Pneumococcal Vaccine: Pediatrics (0 to 5 Years) and At-Risk Patients (6 to 64 Years) (1 - PCV)] Future Scheduled 2022-11-30 Hepatitis C screening [facility] Test 08:08:13 (procedure) [code = 052917827] Future Scheduled 2022-11-30 SHINGLES VACCINES (1 Met [facility] Test 08:08:13 of 2) [code = SHINGLES VACCINES (1 of 2)] Future Scheduled 2022-11-30 COLONOSCOPY SCREENING [facility] Test 08:08:13 [code = COLONOSCOPY SCREENING] Future Scheduled 2022-11-30 INFLUENZA VACCINE [facility] Test 08:08:13 [code = INFLUENZA VACCINE] Future Scheduled 2022-11-30 COVID-19 VACCINE (5 - Me [facility] Test 08:08:13 Booster for Moderna series) [code = COVID-19 VACCINE (5 - Booster for Moderna series)] Future Scheduled 2022-11-16 Pneumococcal Vaccine: [facility] Test 08:53:45 Pediatrics (0 to 5 Years) and At-Risk Patients (6 to 64 Years) (1 - PCV) [code = Pneumococcal Vaccine: Pediatrics (0 to 5 Years) and At-Risk Patients (6 to 64 Years) (1 - PCV)] Future Scheduled 2022-11-16 Hepatitis C screening [facility] Test 08:53:45 (procedure) [code = [id number]] Future Scheduled 2022-11-16 SHINGLES VACCINES (1 Met [facility] Test 08:53:45 of 2) [code = SHINGLES VACCINES (1 of 2)] Future Scheduled 2022-11-16 COLONOSCOPY SCREENING [facility] Test 08:53:45 [code = COLONOSCOPY SCREENING] Future Scheduled 2022-11-16 INFLUENZA VACCINE Method is Hospital Test 08:53:45 [code = INFLUENZA VACCINE] Future Scheduled 2022-11-16 COVID-19 VACCINE (5 - [facility] Test 08:53:45 Booster for Moderna series) [code = COVID-19 VACCINE (5 - Booster for Moderna series)] Future Scheduled 2022-09-26 Hepatitis C screening [facility] Test 23:54:04 (procedure) [code = 459628166] Future Scheduled 2022-09-26 COLONOSCOPY SCREENING [facility] Test 23:54:04 [code = COLONOSCOPY SCREENING] Future Scheduled 2022-09-26 SHINGLES VACCINES (1 Met [facility] Test 23:54:04 of 2) [code = SHINGLES VACCINES (1 of 2)] Future Scheduled 2022-09-26 INFLUENZA VACCINE Method [facility] Test 23:54:04 [code = INFLUENZA VACCINE] Future Scheduled 2022-09-26 COVID-19 VACCINE (5 - [facility] Test 23:54:04 Booster for Moderna series) [code = COVID-19 VACCINE (5 - Booster for Moderna series)] Future Scheduled 2022-09-26 Hepatitis C screening [facility] Test 23:54:04 (procedure) [code = 758565114] Future Scheduled 2022-09-26 COLONOSCOPY SCREENING [facility] Test 23:54:04 [code = COLONOSCOPY SCREENING] Future Scheduled 2022-09-26 SHINGLES VACCINES (1 Met [facility] Test 23:54:04 of 2) [code = SHINGLES VACCINES (1 of 2)] Future Scheduled 2022-09-26 INFLUENZA VACCINE Method [facility] Test 23:54:04 [code = INFLUENZA VACCINE] Future Scheduled 2022-09-26 COVID-19 VACCINE (5 - Me [facility] Test 23:54:04 Booster for Moderna series) [code = COVID-19 VACCINE (5 - Booster for Moderna series)] Future Scheduled 2022-08-26 HEPATITIS B VACCINES Met [facility] Test 02:17:57 (1 of 3 - 3-dose series) [code = HEPATITIS B VACCINES (1 of 3 - 3-dose series)] Future Scheduled 2022-08-26 Hepatitis C screening [facility] Test 02:17:57 (procedure) [code = 666570458] Future Scheduled 2022-08-26 COLONOSCOPY SCREENING [facility] Test 02:17:57 [code = COLONOSCOPY SCREENING] Future Scheduled 2022-08-26 SHINGLES VACCINES (1 Met [facility] Test 02:17:57 of 2) [code = SHINGLES VACCINES (1 of 2)] Future Scheduled 2022-08-26 INFLUENZA VACCINE Method [facility] Test 02:17:57 [code = INFLUENZA VACCINE] Future Scheduled 2022-08-26 COVID-19 VACCINE (5 - [facility] Test 02:17:57 Booster for Moderna series) [code = COVID-19 VACCINE (5 - Booster for Moderna series)] Encounters Start End Encounter Admission Attending Care Care Encounter Source Date/Time Date/Time Type Type Clinicians Facility Department ID 2023-08-10 Inpatient MARQUIS ATKINS [facility] [id number] [facility] 17:26:20 KEVIN 2023-08-02 Inpatient MARQUIS GALLOWAY [facility] [id number] [facility] 16:09:28 BACILIO 2023-08-02 Inpatient MARQUIS GALLOWAY [facility] [id number] [facility] 14:09:57 BACILIO 2022-09-15 Inpatient EL OhTarsha [facility] [id number] [facility] 00:08:00 00 [facility] 2022-02-13 Inpatient EL OhTarsha [facility] RTX [id number] [facility] 15:50:00 64 [facility] 2022-01-14 Inpatient EL OhTarshaWU RTX [id number] [facility] 16:09:00 81 [facility] 2023-08-17 2023-08-22 [facility] Jacinto Plunkett [facility] 1.2.840.11 4 [id number] Univers 21:28:00 15:38:00 Encounter Alma Bonilla 350.1.13.10 ity of Roseann Gallardo 4.2.7.2.686 [facility] [phone] [facility] [address] 2023-08-17 2023-08-22 Inpatient X SAMI [facility] DARIN [id number] Univers 21:28:00 15:38:00 ROSEANN marinelli [facility] 2023-08-17 2023-08-17 Orders Doctor GENO 1.2.840.114 [id number] Univers 00:00:00 00:00:00 Only Unassigned, VIJAY 350.1.13.10 [place]y of [place] [facility] 4.2.7.2.686 Ramón as [phone] [facility] [address] 2023-08-02 2023-08-15 Inpatient ER LOCK, [facility] Emergency [id number] [facility] 08:59:00 19:05:00 KEVIN 2023-08-10 2023-08-10 Outpatient EL LOCK, [facility] SLE [id number] [facility] 00:00:00 00:00:00 KEVIN 2023-08-10 2023-08-10 Outpatient EL LOCK, [facility] SLE [id number] [facility] 00:00:00 00:00:00 KEVIN 2023-08-02 2023-08-02 Outpatient EL JAJEFF, [facility] [id number] 09:28:38 09:28:38 [facility] 2023-08-02 2023-08-02 Outpatient EL JAUNG, [facility] [id number] [facility] 09:13:46 09:13:46 EVE 2023-07-28 2023-07-28 Refill Giselaty, 1.2.840.1 [id number] 2099 [id number] Methodi 00:00:00 00:00:[address] 3.430.2.7 Hospit a .3.283122 l .8 2023-07-28 2023-07-28 Orders Sammaraty, 1.2.840.1 [id number] [facility]i 00:00:00 00:00:00 Only [place] [address]236.1.[address] 3.430.2.7 Hospit a .3.135077 l .8 2023-07-28 2023-07-28 Telephone Derrick Dela Cruz 1.2.840.1 [id number] Methodi 00:00:00 00:00:[address] 3.430.2.7 Hospit a .3.946084 l .8 2023-07-28 2023-07-28 Refill Kaur, 1.2.840.1 [id number] 2099 [id number] Methodi 00:00:00 00:00:[address] 3.430.2.7 Hospit a .3.281261 l .8 2023-07-28 2023-07-28 Orders Kaur, 1.2.840.1 [id number] 2099 [id number] Methodi 00:00:00 00:00:00 Only [place] [address]807.1.[address] 3.430.2.7 Hospit a .3.563281 l .8 2023-07-28 2023-07-28 Telephone Derrick Dela Cruz 1.2.840.1 [id number] Methodi 00:00:00 00:00:[address] 3.430.2.7 Hospit a .3.831471 l .8 2023-07-03 2023-07-03 Telephone Sharonda Lipscomb.2.840.1 [id number] Methodi 00:00:00 00:00:[address] 3.430.2.7 Hospit a .3.568179 l .8 2023-07-03 2023-07-03 Telephone Derrick Dela Cruz 1.2.840.1 [id number] Methodi 00:00:00 00:00:[address] 3.430.2.7 Hospit a .3.101965 l .8 2023-07-03 2023-07-03 Telephone Derrick Dela Cruz 1.2.840.1 [id number] Methodi 00:00:00 00:00:[address] 3.430.2.7 Hospit a .3.388888 l .8 2023-07-03 2023-07-03 Telephone Ruel 1.2.840.1 [id number] Methodi 00:00:00 00:00:[address] [place] [address] 3.430.2.7 Hospit a .3.914304 l .8 2023-07-03 2023-07-03 Telephone Derrick Dela Cruz 1.2.840.1 [id number] Methodi 00:00:00 00:00:[address] 3.430.2.7 Hospit a .3.853983 l .8 2023-07-03 2023-07-03 Telephone Derrick Dela Cruz 1.2.840.1 [id number] Methodi 00:00:00 00:00:[address] 3.430.2.7 Hospit a .3.957873 l .8 2023-06-26 2023-07-01 [facility] Gume Singh 1.2.840.1 [id number] Methodi 15:44:00 18:28:00 Encounter Nils Cowan 89240.1.[address] Lex Mauricio 3.430.2.7 Hospita .3.577358 l .8 2023-06-26 2023-07-01 [facility] Hos [id number] [place] 00:00:00 00:00:00 Encounter LEX [address] 2023-06-22 2023-06-22 Telephone Jose De Jesus Derrick 1.2.840.1 [id number] Methodi 00:00:00 00:00:[address] 3.430.2.7 Hospit a .3.544437 l .8 2023-06-22 2023-06-22 Telephone Dalechen Derrick 1.2.840.1 [id number] Methodi 00:00:00 00:00:[address] 3.430.2.7 Hospit a .3.485941 l .8 2023-06-14 2023-06-16 Inpatient KADY Rdz [facility] MEDI.01 [id number] [facility] 15:34:00 12:00:00 Michel 09 [facility] 2023-06-13 2023-06-13 [facility] RADI LA0 [id number] [facility] 06:45:00 06:45:00 82 [facility] 2023-06-13 2023-06-13 [facility] RADI LA0 [id number] [facility] 06:45:00 06:45:00 82 [facility] 2023-04-13 2023-04-13 [facility] RADI LA0 [id number] [facility] 14:47:00 14:47:00 19 [facility] 2023-04-13 2023-04-13 Outpatient Nickell_K [facility] [id number] [place] 00:00:00 00:00:00 [id number] [facility] 2023-04-09 2023-04-09 Outpatient Nickell_K [facility] [id number] [place] 00:00:00 00:00:00 40753 [facility] 2023-03-22 2023-03-28 [facility] [place] 1.2.840.1 [id number] Methodi 15:37:00 19:03:00 Encounter Eladio Sands 53946.1.1 050 [facility] .[facility].755762 l .8 2023-03-22 2023-03-28 [facility] [place] 1.2.840.1 [id number] 2 [id number] Methodi 15:37:00 19:03:00 Encounter Eladio Sands 25555.1.1 050 [facility] 3.430.2.7 [facility] .3.725442 l .8 2023-03-22 2023-03-22 Travel 1.2.840.1 1.2.417.777 6198 [id number] Methodi 00:00:00 00:00:[address] 3.430.2.7 0.2.7.3.698 Ho spita .3.111297 084.8 l .8 2023-03-22 2023-03-22 Travel 1.2.840.1 1.2.917.652 5961 [id number] Methodi 00:00:00 00:00:[address] 3.430.2.7 0.2.7.3.698 Ho spita .3.894797 084.8 l .8 2023-03-17 2023-03-17 Outpatient R JANELL CHARLES [facility] [id number] [facility] 15:20:00 15:20:00 JANELL CHARLES [facility] 2022-12-20 2022-12-20 Outpatient GC_BCSS_How PRIV PRIV [id number] [facility] 00:00:00 00:00:00 too_Osorio [id number] [facility] 2022-12-17 2022-12-17 Patient Doctor GENO 1.2.840.114 [id number] [facility] 00:00:00 00:00:00 Secure Msg Unassigned, VIJAY 350.1.13.10 [place] of [place] [facility] 4.2.7.2.686 Ramón as [phone] [address] 2022-12-16 2022-12-16 Outpatient GC_BCSS_How PRIV PRIV 267 [id number] [facility] 00:00:00 00:00:00 Coby [id number] Medic al 2022-12-16 2022-12-16 [facility] 1.2.385.940 [id number] Univers 00:00:00 00:00:00 Critical access hospital 350.1.13.10 ity [facility] 4.2.7.2.686 Ramón as JO ANN?BLEA [phone] [address] OFFICE [facility] 2022-12-15 2022-12-[address] [facility] [id number] [facility] 15:20:00 16:12:20 [facility] 2022-12-15 2022-12-15 Office [facility] 1.2.840.114 [id number] Univers 15:20:00 16:12:20 Visit [facility] 4.2.7.2.686 Ramón as JO ANN?BLEA [phone] [address] OFFICE [facility] 2022-12-13 2022-12-13 Outpatient GC_BCSS_How PRIV PRIV [id number] [facility] 00:00:00 00:00:00 Coby [id number] Medic al 2022-11-23 2022-11-23 Travel 1.2.840.1 1.2.465.350 0658 [id number] Methodi 00:00:00 00:00:[address] 3.430.2.7 0.2.7.3.698 Ho spita .3.801933 084.8 l .8 2022-11-23 2022-11-23 Travel 1.2.840.1 1.2.256.382 6825 [id number] Methodi 00:00:00 00:00:[address] 3.430.2.7 0.2.7.3.698 Ho spita .3.862045 084.8 l .8 2022-10-25 2022-11-02 Hospital Re[facility]rerParviz 1.2.840.1 104 [id number] Methodi 05:01:00 15:19:00 Encounter Nils Cowan 68048.1.[address] 3.430.2.7 Hospit a .3.326977 l .8 2022-10-25 2022-11-02 [facility] RehreParviz aguilar 1.2.840.1 104 [id number] [id number] Methodi 05:01:00 15:19:00 Encounter Nils Cowan 83280.1.[address] 3.430.2.7 Hospit a .3.578970 l .8 2022-10-25 2022-10-25 Travel 1.2.840.1 1.2.871.976 5088 [id number] Methodi 00:00:00 00:00:[address] 3.430.2.7 0.2.7.3.698 Ho spita .3.282513 084.8 l .8 2022-10-25 2022-10-25 Travel 1.2.840.1 1.2.316.367 1821 [id number] Methodi 00:00:00 00:00:[address] 3.430.2.7 0.2.7.3.698 Ho spita .3.975377 084.8 l .8 2022-09-01 2022-09-14 Outpatient MARQUIS Calderon Tarsha [facility] RTX [id number] [facility] 09:25:00 00:00:[address] [place] [address] 2022-08-25 2022-08-25 Hospital Rox, 1.2.840.1 [id number] 2099 [id number] [facility]i 08:26:09 23:59:00 Encounter Rhys 92337.1.[address] Jeremy 3.430.2.7 Hospit a .3.020500 l .8 2022-08-25 2022-08-25 Hospital Rox, 1.2.840.1 [id number] 2099 [id number] [facility]i 08:26:09 23:59:00 Encounter Rhys 03859.1.1 243 [facility] 3.430.2.7 [facility] a 3.212762 l .8 2022-04-25 2022-04-25 Outpatient EL Oh, Tarsha [facility] [id number] [facility] 09:28:00 09:28:00 [id number] [facility] 2022-04-25 2022-04-25 Outpatient EL Oh, Tarsha [facility] RTX [id number] [facility] 09:28:00 09:28:00 74 [facility] 2022-01-14 2022-02-12 Outpatient EL Oh, Tarsha [facility] RTX [id number] [facility] 08:34:00 00:00:00 74 [facility] 2021-12-14 2022-01-13 Inpatient EL Oh, Tarsha [facility] RTX [id number] [facility] 14:32:00 00:00:00 52 [facility] 2021-12-27 2021-12-27 Inpatient EL Oh, Tarsha [facility] SUGL [id number] [facility] 10:30:00 09:30:00 05 [facility] 2021-12-21 2021-12-21 Outpatient EL Oh, Tarsha [facility] SUGL [id number] [facility] 09:11:00 09:11:00 36 [facility] 2021-10-18 2021-11-15 Inpatient EL Oh, Tarsha [facility] RTX [id number] [facility] 11:23:00 00:00:00 91 [facility] 2021-09-02 2021-09-14 Outpatient EL Oh, Tarsha [facility] RTX [id number] [facility] 10:13:00 00:00:00 86 [facility] 2021-09-08 2021-09-08 Outpatient EL Oh, Tarsha [facility] SUGL [id number] [facility] 08:46:00 08:46:00 74 [facility] 2021-08-06 2021-08-06 Outpatient DALEDERRICK REARDON [facility] [id number] [place] 00:00:00 00:00:[address] 2021-08-04 2021-08-04 Outpatient DERRICK DELA CRUZ [facility] [id number] [place] 00:00:00 00:00:[address] 2021-08-01 2021-08-03 Outpatient LAILA [facility] [id number] [place] 00:00:00 00:00:00 JENNY 205 Method i 2021-07-23 2021-07-23 Outpatient DERRICK DELA CRUZ [facility] [id number] [place] 00:00:00 00:00:00 041 [facility] 2021-07-23 2021-07-23 Outpatient DERRICK DELA CRUZ [facility] [id number] [place] 00:00:00 00:00:00 991 [facility] 2021-07-21 2021-07-21 Outpatient DERRICK DELA CRUZ [facility] [id number] [place] 00:00:00 00:00:00 901 [facility] 2021-07-21 2021-07-21 Outpatient DERRICK DELA CRUZ [facility] [id number] [place] 00:00:00 00:00:00 867 [facility] 2021-06-28 2021-07-06 Inpatient NILS COWAN [facility] [id number] [place] 00:00:00 00:00:00 942 [facility] 2021-06-02 2021-06-02 Outpatient JONATHAN COVINGTON [facility] [id number] [place] 00:00:00 00:00:[address] 2021-04-26 2021-04-26 Emergency X [facility] ERT [id number] [facility]:39[facility]00 [facility] Test Description Test Time Test Comments Results Result Comments Source Transthoracic echo (TTE) 2023-08-20 16:03:30 Test Item Value Reference Range Interpretation Comme nts Height (test code = 0387529998) 74 in Weight (test code = 8307334174) 165 lbs Systolic BP (test code = 8654717751) 119 mmHg Diastolic BP (test code = 2687488723) 80 mmHg Heart Rate (test code = 5388736404) 94 bpm BSA (test code = 9378245201) 1.84 m2 Ao root diam (test code = 0390856164) 3.90 cm Aortic root (test code = 6497711822) 3.9 cm Ao root annulus (test code = 3.9 cm 5616236594) LVOT diameter (test code = 0525567587) 2.17 cm LVOT area (test code = 0941868935) 3.70 cm2 LA size (test code = 1390905578) 3.4 cm TR Peak Nichelle (test code = 7313059985) 256.7 cm/s Triscuspid Valve Regurgitation Peak 26.4 mmHg Gradient (test code = 4616191686) E wave decelartion time (test code = 0.11 s 3318596137) MV stenosis pressure 1/2 time (test 31.8 ms code = 7445870739) MV Peak A Nichelle (test code = 7860131800) 72.8 cm/s MV Peak E Nichelle (test code = 2490638820) 129.4 cm/s E/A ratio (test code = 1221357805) 1.78 ratio MR max PG (test code = 6548803912) 125.60 mm[Hg] MR max nichelle (test code = 3121575216) 560.40 cm/s Mr max nichelle (test code = 3832329455) 560.4 m/s MV Prop V (test code = 4906529706) 80.90 cm/s MV E/e' septal (test code = 9.1 cm/s 8105946614) LAV(MOD-sp4) (test code = 1199175793) 47.90 mL Tapse (test code = 4738023379) 2.43 cm LVOT stroke volume (test code = 45.80 cm3 0236237501) LVOT peak nichelle (test code = 7377750578) 73.9 cm/s LVOT mn grad (test code = 6664119515) 1.1 mmHg AV LVOT peak gradient (test code = 2.18 mmHg 8908433131) LVOT peak VTI (test code = 1507639273) 12.4 cm LV V1 mean (test code = 9923501982) 49.00 cm/s Aortic valve mean velocity (test code 159.5 cm/s = 8134066813) Ao peak nichelle (test code = 6406853279) 215.2 cm/s Ao VTI (test code = 7247038834) 36.5 cm AV area by cont VTI (test code = 1.3 cm2 4776225528) AV area peak nichelle (test code = 1.3 cm2 8916621295) Ao max PG (test code = 9732034251) 18.50 mm[Hg] AV peak gradient (test code = 18.5 mmHg 5381678280) AV valve area (test code = 3710039671) 1.25 cm2 AV mean gradient (test code = 10.9 mmHg 6392469470) AV regurgitation pressure 1/2 time 608.0 ms (test code = 0595980042) AI dec slope (test code = 9983767763) 174.60 cm/s2 AI max nichelle (test code = 6036729116) 362.40 cm/s AI max PG (test code = 7144172222) 52.60 mm[Hg] LVIDD (test code = 7860087249) 6.50 cm Left Ventricular End Diastolic Volume 216.9 mL by Teichholz Method (test code = 5949851) IVS (test code = 1325112598) 1.01 cm Interventricular Septum Diastolic 1.01 cm Thickness by 2D (test code = 3317455) LVPWD (test code = 1196765940) 1.01 cm PW (test code = 2486449999) 1.01 cm 0.6-1.1 EF(Teich) (test code = 4708612571) 17.60 % LVIDS (test code = 7519961810) 6.00 cm Left Ventricular End Systolic Volume 178.8 mL by Teichholz Method (test code = 4613577) FS (test code = 1926260965) 8 % EF - 2D (test code = 58932866) 17.60 % Radiology Study observation (narrative) (test code = 22500-8) ZAID (test code = ZAID) ?Left?Ventricle: Left ventricle is mildly dilated. Normal wall thickness. Severe global hypokinesis present. Severely reduced systolic function with a visually estimated EF of 15 - 20%. Diastolic dysfunction. ?Mitral?Valve: Mitral valve structure is normal. Mild transvalvular regurgitation. ?Tricuspid?Valve: Right ventricular systolic pressure is normal. ?RA pressure is 0-5 mmHg. ?Aortic?Valve: Mild transvalvular regurgitation. Left VentricleLeft ventricle is mildly dilated. Normal wall thickness. Severe global hypokinesis present. Severely reduced systolic function with a visually estimated EF of 15 - 20%. Diastolic dysfunction.Right VentricleRight ventricle size is normal. Normal systolic function.Left AtriumLeft atrium size is normal.Right AtriumRight atrium size is normal.IVC/SVCIVC diameter is less than or equal to 21 mm and decreases greater than 50% during inspiration; therefore the estimated right atrial pressure is normal (~0-5 mmHg).Mitral ValveMitral valve structure is normal. Mild transvalvular regurgitation.Tricuspid ValveTricuspid valve structure is normal. Trace transvalvular regurgitation. Right ventricular systolic pressure is normal. RA pressure is 0-5 mmHg.Aortic ValveTricuspid. Mildly calcified cusps. Mild transvalvular regurgitation.Pulmonic ValveNot well visualized.Ascending AortaNormal sized aorta.PericardiumTrivial pericardial effusion present. Left pleural effusion.Study DetailsStudy quality was adequate. A complete echocardiogram was performed using 2D, color flow Doppler and spectral Doppler. 5 mL of Lumason ultrasound enhancing agent used. [facility], [id number] 22:49:14 Test Item Value Reference Range Interpretation Comments VIT B12 (test code = 929 pg/mL 240-930 7467079861) ZAID (test code = ZAID) Biotin has been reported to cause a positive bias, interpret results relative to patient's use of biotin. Lab Interpretation (test Normal code = 47274-3) [facility] CenterPROCALCITONIN2023-[facility]-03 21:52:31 Test Item Value Reference Range Interpretation Comments Procalcitonin (test 3.26 ng/mL <=0.07 H code = 0398219652) ZAID (test code = ZAID) INTERPRETATION OF PROCALCITONIN RESULTS IN ADULTS >= 18 YEARS OF AGE Initiation and discontinuation of antibiotics on patients with suspected or confirmed Lower Respiratory Tract Infection in Adults >= 18 years of age. + +-------- --------+ + -----+|Procalcitonin |Interpretation ?|Antibiotic ? ? |Considerations ? |ng/mL ? | ?|recommendation | ? + +-------- --------+ + -----+| <0.1 ? | Bacterial ? ? ?| Strongly ? ? ?| ? | ?| infection very | discouraged ? | Overruling: ? | ?| unlikely ? ? ? | ? | ? Clinically unstable ? ? ? + +-------- --------+ + ? High risk for adverse ? ? | <0.25 ?| Bacterial ? ? ?| Discouraged ? | ? outcome ? | ?| infection ? ? ?| ? | ? SEE IMPORTANT NOTE ?| ?| unlikely ? ? ? | ? | ? + +-------- --------+ + -----+| >=0.25 ? ? ? | Bacterial ? ? ?| Encouraged ? ?| ? | ?| infection ? ? ?| ? | ? | ?| likely ? | ? | Consider treatment failure ?+ +------- ---------+ -+ if levels does not decrease | >0.5 ? | Bacterial ? ? ?| Strongly ? ? ?| appropriately ? | ?| infection very | encouraged ? ?| ? | ?| likely ? | ? | ? + +-------- --------+ + -----+ Discontinuation of antibiotics in high-acuity patients with suspected or confirmed sepsis in Adults >= 18 years of age. + +-------- --------+ + -----+|Procalcitonin |Interpretation ?|Antibiotic ? ? |Considerations ? |ng/mL ? | ?|recommendation | ? + +-------- --------+ + -----+| <0.25 ?| Bacterial ? ? ?| Strongly ? ? ?| ? | ?| infection very | discouraged ? | Overruling: ? | ?| unlikely ? ? ? | ? | ? Clinically unstable ? ? ? + +-------- --------+ + ? High risk for adverse ? ? | <0.5 or drop | Bacterial ? ? ?| Discouraged ? | ? outcome ? | >80% from ? ?| infection ? ? ?| ? | ? SEE IMPORTANT NOTE ?| highest PCT ?| unlikely ? ? ? | ? | ? | level ?| ?| ? | ? + +-------- --------+ + -----+| >=0.5 ?| Bacterial ? ? ?| Encouraged ? ?| ? | ?| infection ? ? ?| ? | ? | ?| likely ? | ? | Consider treatment failure ?+ +------- ---------+ -+ if levels does not decrease | >1.0 ? | Bacterial ? ? ?| Strongly ? ? ?| appropriately ? | ?| infection very | encouraged ? ?| ? | ?| likely ? | ? | ? + +-------- --------+ + -----+ Percentage of drop of Procalcitonin calculation for Discontinuation of antibiotics in high-acuity patients with suspected or confirmed sepsis in Adults >= 18 years of age. ? Procalcitonin highest{}-Procalcitonin current{}Delta Procalcitonin = x100% ? Procalcitonin current {} IMPORTANT NOTE: Procalcitonin may be elevated without bacterial infection by physiologic stress related to trauma, macias, chronic dialysis, metastatic cancer, surgery in the past seven days, malaria, some fungal infections, and some forms of vasculitis. The interpretation algorithm may not apply to patients with immunosuppression (equivalent of >10 mg of prednisone daily), HIV with CD4 cell count < 350 cells/mm3, active malignancy on systemic chemotherapy, solid organ transplant or hematopoietic stem cell transplantation, or hospital acquired pneumonia. Additionally, some clinical trials of procalcitonin have excluded patients with shock requiring vasopressor use, acute respiratory failure requiring mechanical ventilation, or those with known lung abscess/empyema. For further information please refer to:[email or web address] Lab Interpretation Abnormal (test code = 23060-8) [facility] D, [id number] 20:27:24 Test Item Value Reference Range Interpretation Comments VIT D 25OH (test code = 19 ng/mL 25-80 L 72191-1) ZAID (test code = ZAID) Deficiency: <20 ng/mLInsufficiency: 20-24 ng/mLOptimal: 25-80 ng/mL Lab Interpretation (test Abnormal code = 38293-0) [facility] CenterC-REACTIVE [id number] 17:57:15 Test Item Value Reference Range Interpretation Comments CRP (test code = 7539935023) 22.2 mg/dL <=0.8 H Lab Interpretation (test code = Abnormal 84639-9) [facility] CenterTHYROID STIMULATING [id number] 12:36:56 Test Item Value Reference Range Interpretation Comments TSH (test code = 1.60 See_Comment [Automated message] 2507849143) The system [employer] generated this result transmitted ref erence range: 0.45 - 4 .70 mIU/L. The refe rence range was not u sed to interpret this result as normal/abnor mal. Lab Interpretation (test Normal code = 23151-7) [facility] CenterSEDIMENTATION [id number] 12:10:32 Test Item Value Reference Range Interpretation Comments ESR (test code = See_Comment H [Automated message] 19252-6) The system [employer] generated this result transmitted ref erence range: 0 - 10 m m/HR. The reference r nilay was not used to interpret this result as normal/abnor mal. Lab Interpretation (test Abnormal code = 55116-5) [facility] CenterMAGNESIUM2023-11-03 12:05:54 Test Item Value Reference Range Interpretation Comments MAGNESIUM (test code = 7182840049) 1.8 mg/dL 1.7-2.4 Lab Interpretation (test code = Normal 86589-4) [facility] CenterLIPID PANEL (90070)(TOTAL CHOLESTEROL, TRIGLYCERIDES, HDL)2023-08-18 12:05:54 Test Item Value Reference Range Interpretation Comments CHOL (test code = 4167987326) 193 mg/dL 120-200 HDL (test code = 3555418810) 43 mg/dL >=40 HDLC RATIO (test code = 4485134153) 4.5 <=5.0 TRIG (test code = 1825381413) 119 mg/dL 30-170 LDL CHOL (test code = 23139-3) 126 mg/dL <=160 VLDL (test code = 7764718116) 24 mg/dL 5-60 Lab Interpretation (test code = Normal 14774-1) [facility] CenterPHOSPHORUS2023-11-03 12:05:34 Test Item Value Reference Range Interpretation Comments PHOSPHORUS (test code = 4601449777) 3.9 mg/dL 2.5-5.0 Lab Interpretation (test code = Normal 50878-9) [facility] CenterURIC [id number] 12:05:13 Test Item Value Reference Range Interpretation Comments URIC ACID (test code = 9033881468) 9.3 mg/dL 3.6-8.0 H Lab Interpretation (test code = Abnormal 19792-7) [facility] CenterGLYCOSYLATED HEMOGLOBIN (A1C)2023-08-18 12:02:57 Test Item Value Reference Range Interpretation Comments HGB A1C (test code = 5.4 % 4.0-5.7 4548-4) ZAID (test code = ZAID) Reference RangesNormal: <5.7%Prediabetes: 5.7 - 6.4%Diabetes: > 6.5% Lab Interpretation (test Normal code = 00381-9) [facility] CenterProthrombin Time / [id number] 12:02:11 Test Item Value Reference Range Interpretation Comments PROTIME PATIENT (test 13.8 See_Comment [Auto mated message] code = 5964-2) The system [employer] generated this result transmitted ref erence range: 12.0 - 1 4.7 Seconds. The re ference range was not u sed to interpret this result as normal/abnor mal. INR (test code = 6301-6) 1.1 Nor mal INR <1.1; Warfarin Therap eutic range 2.0 to 3. 0 or 2.5 to 3.5, dep ending upon the indica tions. Lab Interpretation (test Normal code = 43425-4) [facility] CenterACUTE CARE VENOUS BLOOD [id number] 11:35:07 Test Item Value Reference Range Interpretation Comments PH (test code = 7.36 7.32-7.42 2424242238) PCO2 OTIS (test code = 42 See_Comment [Auto mated message] 1452323149) The system [employer] generated this result transmitted ref erence range: 41 - 51 mmHg. The reference r nilay was not used to interpret this result as normal/abnor mal. PO2 OTIS (test code = 34 See_Comment [Autom ated message] 1142978315) The system [employer] generated this result transmitted ref erence range: 25 - 40 mmHg. The reference r nilay was not used to interpret this result as normal/abnor mal. HCO3 OTIS (test code = 23 See_Comment L [Auto mated message] 9850937631) The system [employer] generated this result transmitted ref erence range: 24 - 28 mEq/L. The reference r nilay was not used to interpret this result as normal/abnor mal. AC VBE(BEAKER) (test -2.3 mEq/L code = 6665534270) Lab Interpretation (test Abnormal code = 62532-3) [facility] GLUCOSE (AUTOMATED)2023-08-18 08:41:32 Test Item Value Reference Range Interpretation Comments POCT GLU (test code = 8281108904) 142 mg/dL 70-110 H Lab Interpretation (test code = Abnormal 97568-9) [facility] GLUCOSE (AUTOMATED)2023-08-18 08:02:09 Test Item Value Reference Range Interpretation Comments POCT GLU (test code = 9069931853) 100 mg/dL 70-110 Lab Interpretation (test code = Normal 13848-9) [facility]. METABOLIC PANEL (69721)2023-08-18 05:21:41 Test Item Value Reference Range Interpretation Comments NA (test code = 133 mmol/L 135-145 L 5939155759) K (test code = 5.8 mmol/L 3.5-5.0 H 9251655502) CL (test code = 97 mmol/L 98-108 L 3629122431) CO2 TOTAL (test code = 25 mmol/L 23-31 5401623743) AGAP (test code = 11 2-16 1018421136) BUN (test code = 39 mg/dL 7-23 H 1386926641) GLUCOSE (test code = 130 mg/dL 70-110 H 2707567150) CREATININE (test code = 4.02 mg/dL 0.60-1.25 H 6693826277) TOTAL BILI (test code = 0.5 mg/dL 0.1-1.1 3620306239) CALCIUM (test code = 10.1 mg/dL 8.6-10.6 6457233733) T PROTEIN (test code = 7.9 g/dL 6.3-8.2 0801787331) ALBUMIN (test code = 3.4 g/dL 3.5-5.0 L 0071070172) ALK PHOS (test code = 79 U/L 34-122 0945796698) ALTv (test code = 7 U/L 5-50 1742-6) AST(SGOT) (test code = 23 U/L 13-40 1001582816) eGFR (test code = 16.2 mL/min/1.73m2 CKD-EPI e GFR 36152-7) (2020). Assumin g creatinine has been stable day-to-d ay for at least th ree months, the eGF R indicates Categ ory G4 (15 - 29 mL/min/1.73 m2) Lab Interpretation (test Abnormal code = 25989-4) [facility] WITH [id number] 05:06:58 Test Item Value Reference Range Interpretation Comments WBC (test code = 11.83 See_Comment H [Automated 6690-2) message] The system which generated this result transmit yolande reference range : 4.20 - 10.70 10*3/?L. The reference range was not used to interpret this result as normal/abnormal . RBC (test code = 3.37 See_Comment L [Automated 789-8) message] The system which generated this result transmit yolande reference range : 4.26 - 5.52 10*6/?L. The reference range was not used to interpret this result as normal/abnormal . HGB (test code = 8.6 g/dL 12.2-16.4 L 718-7) HCT (test code = 27.5 % 38.4-49.3 L 4544-3) MCV (test code = 81.6 fL 81.7-95.6 L 787-2) MCH (test code = 25.5 pg 26.1-32.7 L 785-6) MCHC (test code = 31.3 g/dL 31.2-35.0 786-4) RDW-SD (test code = 63.9 fL 38.5-51.6 H 53115-2) RDW-CV (test code = 21.8 % 12.1-15.4 H 788-0) PLT (test code = 578 See_Comment H [Automated 777-3) message] The system which generated this result transmit yolande reference range : 150 - 328 10*3/ ?L. The reference range was not u sed to interpret th is result as normal/abnormal . MPV (test code = 9.7 fL 9.8-13.0 L 75018-5) NRBC/100 WBC (test 0.0 See_Comment [Automat ed code = 0509663573) message] The system which generated this result transmit yolande reference range : 0.0 - 10.0 /100 WBCs. The reference range was not used to interpret this result as normal/abnormal . NRBC x10^3 (test code See_Comment [Auto mated = 4014625291) message] The system which generated this result transmit yolande reference range : 10*3/?L. The reference range was not used to interpret this result as normal/abnormal . GRAN MAT (NEUT) % 89.5 % (test code = 770-8) IMM GRAN % (test code 0.30 % = 8024785468) LYMPH % (test code = 3.5 % 736-9) MONO % (test code = 6.3 % 5905-5) EOS % (test code = 0.1 % 713-8) BASO % (test code = 0.3 % 706-2) GRAN MAT x10^3(ANC) 10.60 10*3/uL 1.99-6.95 H (test code = 6020481484) IMM GRAN x10^3 (test 0.04 10*3/uL 0.00-0.06 code = 5818495440) LYMPH x10^3 (test code 0.41 10*3/uL 1.09-3.23 L = 731-0) MONO x10^3 (test code 0.74 10*3/uL 0.36-1.02 = 742-7) EOS x10^3 (test code = 0.06-0.53 L 711-2) BASO x10^3 (test code 0.03 10*3/uL 0.01-0.09 = 704-7) Lab Interpretation Abnormal (test code = 46906-5) [facility] CenterLactic Acid Whole [id number] 04:27:59 Test Item Value Reference Range Interpretation Comments LACTIC ACID (test code = 1.66 mmol/L 0.50-2.20 7467086663) Lab Interpretation (test code = Normal 64910-0) [facility] W/PLT COUNT & AUTO DIFFERENTIAL 2023-08-15 05:45:10 Test Item Value Reference Range Interpretation Comments WHITE BLOOD CELL COUNT (BEAKER) 6.8 K/ L 3.5-10.5 (test code = 775) RED BLOOD CELL COUNT (BEAKER) 3.21 M/ L 4.63-6.08 L (test code = 761) HEMOGLOBIN (BEAKER) (test code = 7.9 GM/DL 13.7-17.5 L 410) HEMATOCRIT (BEAKER) (test code = 26.3 % 40.1-51.0 L 411) MEAN CORPUSCULAR VOLUME (BEAKER) 82 fL 79-92 (test code = 753) MEAN CORPUSCULAR HEMOGLOBIN 24.6 pg 25.7-32.2 L (BEAKER) (test code = 751) MEAN CORPUSCULAR HEMOGLOBIN CONC 30.0 GM/DL 32.3-36.5 L (BEAKER) (test code = 752) RED CELL DISTRIBUTION WIDTH 21.2 % 11.6-14.4 H (BEAKER) (test code = 412) PLATELET COUNT (BEAKER) (test 619 K/CU MM 150-450 H code = 756) MEAN PLATELET VOLUME (BEAKER) 8.7 fL 9.4-12.4 L (test code = 754) NUCLEATED RED BLOOD CELLS 0 /100 WBC 0-0 (BEAKER) (test code = 413) NEUTROPHILS RELATIVE PERCENT 75 % (BEAKER) (test code = 429) LYMPHOCYTES RELATIVE PERCENT 10 % (BEAKER) (test code = 430) MONOCYTES RELATIVE PERCENT 13 % (BEAKER) (test code = 431) EOSINOPHILS RELATIVE PERCENT 2 % (BEAKER) (test code = 432) BASOPHILS RELATIVE PERCENT 1 % (BEAKER) (test code = 437) NEUTROPHILS ABSOLUTE COUNT 5.07 K/ L 1.78-5.38 (BEAKER) (test code = 670) LYMPHOCYTES ABSOLUTE COUNT 0.65 K/ L 1.32-3.57 L (BEAKER) (test code = 414) MONOCYTES ABSOLUTE COUNT (BEAKER) 0.85 K/ L 0.30-0.82 H (test code = 415) EOSINOPHILS ABSOLUTE COUNT 0.11 K/ L 0.04-0.54 (BEAKER) (test code = 416) BASOPHILS ABSOLUTE COUNT (BEAKER) 0.04 K/ L 0.01-0.08 (test code = 417) IMMATURE GRANULOCYTES-RELATIVE 0.40 % 0.00-1.00 PERCENT (BEAKER) (test code = 2801) [id number] 05:31:52 Test Item Value Reference Range Interpretation Comments MAGNESIUM (BEAKER) (test code = 1.7 mg/dL 1.6-2.6 627) [employer] ID - ADMINBASIC METABOLIC [id number] 05:31:51 Test Item Value Reference Range Interpretation Comments SODIUM (BEAKER) 135 meq/L 136-145 L (test code = 381) POTASSIUM 4.7 meq/L 3.5-5.1 (BEAKER) (test code = 379) CHLORIDE (BEAKER) 100 meq/L 98-107 (test code = 382) CO2 (BEAKER) 28 meq/L 22-29 (test code = 355) BLOOD UREA 24 mg/dL 7-21 H NITROGEN (BEAKER) (test code = 354) CREATININE 2.40 mg/dL 0.57-1.25 H (BEAKER) (test code = 358) GLUCOSE RANDOM 90 mg/dL 70-105 (BEAKER) (test code = 652) CALCIUM (BEAKER) 9.5 mg/dL 8.4-10.2 (test code = 697) EGFR (BEAKER) 30 Interpretatio n of eGFR (test code = mL/min/1.73 values Stage De scription 1092) sq m Result G1 Norm al or high >=90 G2 Mildly decreased 60-89 G3a Mildl y to moderately 45-5 9 G3b Moderately to s everely 30-44 G4 Severl y decreased 15-29 G5 Kidney failure <15Reported eGF R is based on the CKD-EPI 2020 equation that d oes not use a race coefficientEsti mated GFR is not as accur ate as Creatinine Renetta juancarlos in predicting glom erular filtration rate . Estimated GFR is not appl icable for dialysis patien ts [employer] ID - ADMINCHLORIDE, RANDOM [id number] 06:38:36 Test Item Value Reference Range Interpretation Comments CHLORIDE URINE (BEAKER) (test code = 36 meq/L 20-330 682) Reference Range: No NormalsOperator ID - NTPSODIUM, RANDOM [id number] 06:38:36 Test Item Value Reference Range Interpretation Comments SODIUM URINE (BEAKER) (test code = 36 meq/L 243) Reference Range: No NormalsOperator ID - NTPBASIC METABOLIC [id number] 06:17:08 Test Item Value Reference Range Interpretation Comments SODIUM (BEAKER) 134 meq/L 136-145 L (test code = 381) POTASSIUM 4.8 meq/L 3.5-5.1 (BEAKER) (test code = 379) CHLORIDE (BEAKER) 100 meq/L 98-107 (test code = 382) CO2 (BEAKER) 23 meq/L 22-29 (test code = 355) BLOOD UREA 24 mg/dL 7-21 H NITROGEN (BEAKER) (test code = 354) CREATININE 2.46 mg/dL 0.57-1.25 H (BEAKER) (test code = 358) GLUCOSE RANDOM 59 mg/dL 70-105 L (BEAKER) (test code = 652) CALCIUM (BEAKER) 9.6 mg/dL 8.4-10.2 (test code = 697) EGFR (BEAKER) 30 Interpretatio n of eGFR (test code = mL/min/1.73 values Stage De scription 1092) sq m Result G1 Digna l or high >=90 G2 Mildly decreased 60-89 G3a Mildl y to moderately 45-5 9 G3b Moderately to s everely 30-44 G4 Severl y decreased 15-29 G5 Kidney failure <15Reported eGF R is based on the CKD-EPI 2021 equation that d oes not use a race coefficientEsti mated GFR is not as accur ate as Creatinine Renetta juancarlos in predicting glom erular filtration rate . Estimated GFR is not appl icable for dialysis patien ts [employer] ID - ZIGGY [id number] 06:17:08 Test Item Value Reference Range Interpretation Comments MAGNESIUM (BEAKER) (test code = 1.8 mg/dL 1.6-2.6 627) [employer] Superintendent ID - ZIGGY MCLAUGHLIN, [id number] 06:16:55 Test Item Value Reference Range Interpretation Comments OSMOLALITY URINE 337 mOsm/kg See_Comment [Automated message] (BEAKER) (test code = The sy stem which 614) generated this result transmitted ref erence range: 50-1,200 mOsm/kg. The reference range was not used to int erpret this result as normal/abnormal . CBC W/PLT COUNT & AUTO [id number] 06:03:53 Test Item Value Reference Range Interpretation Comments WHITE BLOOD CELL COUNT (BEAKER) 7.6 K/ L 3.5-10.5 (test code = 775) RED BLOOD CELL COUNT (BEAKER) 3.26 M/ L 4.63-6.08 L (test code = 761) HEMOGLOBIN (BEAKER) (test code = 8.3 GM/DL 13.7-17.5 L 410) HEMATOCRIT (BEAKER) (test code = 27.0 % 40.1-51.0 L 411) MEAN CORPUSCULAR VOLUME (BEAKER) 83 fL 79-92 (test code = 753) MEAN CORPUSCULAR HEMOGLOBIN 25.5 pg 25.7-32.2 L (BEAKER) (test code = 751) MEAN CORPUSCULAR HEMOGLOBIN CONC 30.7 GM/DL 32.3-36.5 L (BEAKER) (test code = 752) RED CELL DISTRIBUTION WIDTH 21.5 % 11.6-14.4 H (BEAKER) (test code = 412) PLATELET COUNT (BEAKER) (test 639 K/CU MM 150-450 H code = 756) MEAN PLATELET VOLUME (BEAKER) 8.7 fL 9.4-12.4 L (test code = 754) NUCLEATED RED BLOOD CELLS 0 /100 WBC 0-0 (BEAKER) (test code = 413) NEUTROPHILS RELATIVE PERCENT 81 % (BEAKER) (test code = 429) LYMPHOCYTES RELATIVE PERCENT 7 % (BEAKER) (test code = 430) MONOCYTES RELATIVE PERCENT 10 % (BEAKER) (test code = 431) EOSINOPHILS RELATIVE PERCENT 1 % (BEAKER) (test code = 432) BASOPHILS RELATIVE PERCENT 0 % (BEAKER) (test code = 437) NEUTROPHILS ABSOLUTE COUNT 6.13 K/ L 1.78-5.38 H (BEAKER) (test code = 670) LYMPHOCYTES ABSOLUTE COUNT 0.54 K/ L 1.32-3.57 L (BEAKER) (test code = 414) MONOCYTES ABSOLUTE COUNT (BEAKER) 0.77 K/ L 0.30-0.82 (test code = 415) EOSINOPHILS ABSOLUTE COUNT 0.05 K/ L 0.04-0.54 (BEAKER) (test code = 416) BASOPHILS ABSOLUTE COUNT (BEAKER) 0.03 K/ L 0.01-0.08 (test code = 417) IMMATURE GRANULOCYTES-RELATIVE 0.50 % 0.00-1.00 PERCENT (BEAKER) (test code = 2801) BASIC METABOLIC [id number] 05:40:18 Test Item Value Reference Range Interpretation Comments SODIUM (BEAKER) 132 meq/L 136-145 L (test code = 381) POTASSIUM 5.0 meq/L 3.5-5.1 (BEAKER) (test code = 379) CHLORIDE (BEAKER) 99 meq/L 98-107 (test code = 382) CO2 (BEAKER) 24 meq/L 22-29 (test code = 355) BLOOD UREA 22 mg/dL 7-21 H NITROGEN (BEAKER) (test code = 354) CREATININE 2.26 mg/dL 0.57-1.25 H (BEAKER) (test code = 358) GLUCOSE RANDOM 66 mg/dL 70-105 L (BEAKER) (test code = 652) CALCIUM (BEAKER) 9.6 mg/dL 8.4-10.2 (test code = 697) EGFR (BEAKER) 33 Interpretatio n of eGFR (test code = mL/min/1.73 values Stage De scription 1092) sq m Result G1 Digna l or high >=90 G2 Mildly decreased 60-89 G3a Mildl y to moderately 45-5 9 G3b Moderately to s everely 30-44 G4 Severl y decreased 15-29 G5 Kidney failure <15Reported eGF R is based on the CKD-EPI 2020 equation that d oes not use a race coefficientEsti mated GFR is not as accur ate as Creatinine Renetta juancarlos in predicting glom erular filtration rate . Estimated GFR is not appl icable for dialysis patien ts Golf Superintendent ID - [id number] 05:40:18 Test Item Value Reference Range Interpretation Comments MAGNESIUM (BEAKER) (test code = 1.7 mg/dL 1.6-2.6 627) Golf Superintendent ID - ADMINCBC W/PLT COUNT & AUTO [id number] 05:20:16 Test Item Value Reference Range Interpretation Comments WHITE BLOOD CELL COUNT (BEAKER) 7.6 K/ L 3.5-10.5 (test code = 775) RED BLOOD CELL COUNT (BEAKER) 3.50 M/ L 4.63-6.08 L (test code = 761) HEMOGLOBIN (BEAKER) (test code = 8.5 GM/DL 13.7-17.5 L 410) HEMATOCRIT (BEAKER) (test code = 28.2 % 40.1-51.0 L 411) MEAN CORPUSCULAR VOLUME (BEAKER) 81 fL 79-92 (test code = 753) MEAN CORPUSCULAR HEMOGLOBIN 24.3 pg 25.7-32.2 L (BEAKER) (test code = 751) MEAN CORPUSCULAR HEMOGLOBIN CONC 30.1 GM/DL 32.3-36.5 L (BEAKER) (test code = 752) RED CELL DISTRIBUTION WIDTH 21.2 % 11.6-14.4 H (BEAKER) (test code = 412) PLATELET COUNT (BEAKER) (test 652 K/CU MM 150-450 H code = 756) MEAN PLATELET VOLUME (BEAKER) 8.3 fL 9.4-12.4 L (test code = 754) NUCLEATED RED BLOOD CELLS 0 /100 WBC 0-0 (BEAKER) (test code = 413) NEUTROPHILS RELATIVE PERCENT 81 % (BEAKER) (test code = 429) LYMPHOCYTES RELATIVE PERCENT 9 % (BEAKER) (test code = 430) MONOCYTES RELATIVE PERCENT 8 % (BEAKER) (test code = 431) EOSINOPHILS RELATIVE PERCENT 1 % (BEAKER) (test code = 432) BASOPHILS RELATIVE PERCENT 1 % (BEAKER) (test code = 437) NEUTROPHILS ABSOLUTE COUNT 6.15 K/ L 1.78-5.38 H (BEAKER) (test code = 670) LYMPHOCYTES ABSOLUTE COUNT 0.72 K/ L 1.32-3.57 L (BEAKER) (test code = 414) MONOCYTES ABSOLUTE COUNT (BEAKER) 0.62 K/ L 0.30-0.82 (test code = 415) EOSINOPHILS ABSOLUTE COUNT 0.08 K/ L 0.04-0.54 (BEAKER) (test code = 416) BASOPHILS ABSOLUTE COUNT (BEAKER) 0.04 K/ L 0.01-0.08 (test code = 417) IMMATURE GRANULOCYTES-RELATIVE 0.30 % 0.00-1.00 PERCENT (BEAKER) (test code = 2801) BASIC METABOLIC [id number] 05:43:12 Test Item Value Reference Range Interpretation Comments SODIUM (BEAKER) 133 meq/L 136-145 L (test code = 381) POTASSIUM 4.9 meq/L 3.5-5.1 (BEAKER) (test code = 379) CHLORIDE (BEAKER) 100 meq/L 98-107 (test code = 382) CO2 (BEAKER) 25 meq/L 22-29 (test code = 355) BLOOD UREA 22 mg/dL 7-21 H NITROGEN (BEAKER) (test code = 354) CREATININE 2.34 mg/dL 0.57-1.25 H (BEAKER) (test code = 358) GLUCOSE RANDOM 93 mg/dL 70-105 (BEAKER) (test code = 652) CALCIUM (BEAKER) 9.1 mg/dL 8.4-10.2 (test code = 697) EGFR (BEAKER) 32 Interpretatio n of eGFR (test code = mL/min/1.73 values Stage De scription 1092) sq m Result G1 Digna l or high >=90 G2 Mildly decreased 60-89 G3a Mildl y to moderately 45-5 9 G3b Moderately to s everely 30-44 G4 Severl y decreased 15-29 G5 Kidney failure <15Reported eGF R is based on the CKD-EPI 2020 equation that d oes not use a race coefficientEsti mated GFR is not as accur ate as Creatinine Renetta bauer in predicting glom erular filtration rate . Estimated GFR is not appl icable for dialysis patien ts Golf Superintendent ID - ZIGGY [id number] 05:43:12 Test Item Value Reference Range Interpretation Comments MAGNESIUM (BEAKER) (test code = 1.6 mg/dL 1.6-2.6 627) Golf Superintendent ID - ZIGGY WCBC W/PLT COUNT & AUTO [id number] 05:40:05 Test Item Value Reference Range Interpretation Comments WHITE BLOOD CELL COUNT (BEAKER) 6.1 K/ L 3.5-10.5 (test code = 775) RED BLOOD CELL COUNT (BEAKER) 3.35 M/ L 4.63-6.08 L (test code = 761) HEMOGLOBIN (BEAKER) (test code = 8.1 GM/DL 13.7-17.5 L 410) HEMATOCRIT (BEAKER) (test code = 26.6 % 40.1-51.0 L 411) MEAN CORPUSCULAR VOLUME (BEAKER) 79 fL 79-92 (test code = 753) MEAN CORPUSCULAR HEMOGLOBIN 24.2 pg 25.7-32.2 L (BEAKER) (test code = 751) MEAN CORPUSCULAR HEMOGLOBIN CONC 30.5 GM/DL 32.3-36.5 L (BEAKER) (test code = 752) RED CELL DISTRIBUTION WIDTH 20.8 % 11.6-14.4 H (BEAKER) (test code = 412) PLATELET COUNT (BEAKER) (test 659 K/CU MM 150-450 H code = 756) MEAN PLATELET VOLUME (BEAKER) 8.5 fL 9.4-12.4 L (test code = 754) NUCLEATED RED BLOOD CELLS 0 /100 WBC 0-0 (BEAKER) (test code = 413) NEUTROPHILS RELATIVE PERCENT 79 % (BEAKER) (test code = 429) LYMPHOCYTES RELATIVE PERCENT 8 % (BEAKER) (test code = 430) MONOCYTES RELATIVE PERCENT 11 % (BEAKER) (test code = 431) EOSINOPHILS RELATIVE PERCENT 1 % (BEAKER) (test code = 432) BASOPHILS RELATIVE PERCENT 1 % (BEAKER) (test code = 437) NEUTROPHILS ABSOLUTE COUNT 4.82 K/ L 1.78-5.38 (BEAKER) (test code = 670) LYMPHOCYTES ABSOLUTE COUNT 0.49 K/ L 1.32-3.57 L (BEAKER) (test code = 414) MONOCYTES ABSOLUTE COUNT (BEAKER) 0.67 K/ L 0.30-0.82 (test code = 415) EOSINOPHILS ABSOLUTE COUNT 0.08 K/ L 0.04-0.54 (BEAKER) (test code = 416) BASOPHILS ABSOLUTE COUNT (BEAKER) 0.03 K/ L 0.01-0.08 (test code = 417) IMMATURE GRANULOCYTES-RELATIVE 0.30 % 0.00-1.00 PERCENT (BEAKER) (test code = 2801) LACTATE DEHYDROGENASE (LDH)2023-08-11 06:34:28 Test Item Value Reference Range Interpretation Comments LACTATE DEHYDROGENASE (BEAKER) (test 327 U/L 125-220 H code = 635) Golf Superintendent ID - MARCOBASIC METABOLIC [id number] 06:34:27 Test Item Value Reference Range Interpretation Comments SODIUM (BEAKER) 133 meq/L 136-145 L (test code = 381) POTASSIUM 4.7 meq/L 3.5-5.1 (BEAKER) (test code = 379) CHLORIDE (BEAKER) 100 meq/L 98-107 (test code = 382) CO2 (BEAKER) 27 meq/L 22-29 (test code = 355) BLOOD UREA 24 mg/dL 7-21 H NITROGEN (BEAKER) (test code = 354) CREATININE 2.30 mg/dL 0.57-1.25 H (BEAKER) (test code = 358) GLUCOSE RANDOM 85 mg/dL 70-105 (BEAKER) (test code = 652) CALCIUM (BEAKER) 8.9 mg/dL 8.4-10.2 (test code = 697) EGFR (BEAKER) 32 Interpretatio n of eGFR (test code = mL/min/1.73 values Stage De scription 1092) sq m Result G1 Digna l or high >=90 G2 Mildly decreased 60-89 G3a Mildl y to moderately 45-5 9 G3b Moderately to s everely 30-44 G4 Severl y decreased 15-29 G5 Kidney failure <15Reported eGF R is based on the CKD-EPI 2020 equation that d oes not use a race coefficientEsti mated GFR is not as accur ate as Creatinine Renetta bauer in predicting glom erular filtration rate . Estimated GFR is not appl icable for dialysis patien ts Golf Superintendent ID - [id number] 06:34:27 Test Item Value Reference Range Interpretation Comments MAGNESIUM (BEAKER) (test code = 1.6 mg/dL 1.6-2.6 627) Golf Superintendent ID - MARCOCBC W/PLT COUNT & AUTO [id number] 06:03:36 Test Item Value Reference Range Interpretation Comments WHITE BLOOD CELL COUNT (BEAKER) 5.3 K/ L 3.5-10.5 (test code = 775) RED BLOOD CELL COUNT (BEAKER) 3.26 M/ L 4.63-6.08 L (test code = 761) HEMOGLOBIN (BEAKER) (test code = 8.1 GM/DL 13.7-17.5 L 410) HEMATOCRIT (BEAKER) (test code = 26.3 % 40.1-51.0 L 411) MEAN CORPUSCULAR VOLUME (BEAKER) 81 fL 79-92 (test code = 753) MEAN CORPUSCULAR HEMOGLOBIN 24.8 pg 25.7-32.2 L (BEAKER) (test code = 751) MEAN CORPUSCULAR HEMOGLOBIN CONC 30.8 GM/DL 32.3-36.5 L (BEAKER) (test code = 752) RED CELL DISTRIBUTION WIDTH 20.8 % 11.6-14.4 H (BEAKER) (test code = 412) PLATELET COUNT (BEAKER) (test 554 K/CU MM 150-450 H code = 756) MEAN PLATELET VOLUME (BEAKER) 8.2 fL 9.4-12.4 L (test code = 754) NUCLEATED RED BLOOD CELLS 0 /100 WBC 0-0 (BEAKER) (test code = 413) NEUTROPHILS RELATIVE PERCENT 75 % (BEAKER) (test code = 429) LYMPHOCYTES RELATIVE PERCENT 11 % (BEAKER) (test code = 430) MONOCYTES RELATIVE PERCENT 12 % (BEAKER) (test code = 431) EOSINOPHILS RELATIVE PERCENT 2 % (BEAKER) (test code = 432) BASOPHILS RELATIVE PERCENT 0 % (BEAKER) (test code = 437) NEUTROPHILS ABSOLUTE COUNT 3.93 K/ L 1.78-5.38 (BEAKER) (test code = 670) LYMPHOCYTES ABSOLUTE COUNT 0.57 K/ L 1.32-3.57 L (BEAKER) (test code = 414) MONOCYTES ABSOLUTE COUNT (BEAKER) 0.61 K/ L 0.30-0.82 (test code = 415) EOSINOPHILS ABSOLUTE COUNT 0.10 K/ L 0.04-0.54 (BEAKER) (test code = 416) BASOPHILS ABSOLUTE COUNT (BEAKER) 0.02 K/ L 0.01-0.08 (test code = 417) IMMATURE GRANULOCYTES-RELATIVE 0.40 % 0.00-1.00 PERCENT (BEAKER) (test code = 2801) CT ABDOMEN/PELVIS WITHOUT IV [id number] 22:25:31 [facility] 1965 Sex: MEXAM: CT A BDOMEN/PELVIS WITHOUT IV CONTRASTCLINICAL INDICATION: Colorectal cancer, surveillanceTECHNIQUE: CT of the abdomen and pelvis was performed without theadministration of intravenous contrast. Multiplanarreformatted imagesare provided for interpretation. Dose modulation, iterativereconstruction, and/or w eight based adjustment of the mA/kV was utilizedto reduce the radiation dose to as low as reasonablyachievable.COMPARISON: Renal ultrasound, 08/02/2023.FINDINGS: Lung bases: There are several noncalcified pulmonary nodules in thebilateral lower lobes. A outside industrial sales representative example in the left lower lobemeasures 8 x 6 mm. Trace pericardial effusion. There are coronary arterycalcium occasions.Organs: Completely evaluated without intravenous contrast. Bilateralpercutaneous nephrostomy tubes are in place. The left-sided nephrostomytube pigtail cysts in the left lower pole kidney. A mild lefthydronephrosis and proximal hydroureter. The right-sided pigtail is seenwithin the right renal pelvis. No contour deforming renal mass. A fewlow- attenuation renal cysts are present. No nephrolithiasis. Theunenhanced liver, spleen, pancreas and adrenal glands are without acutefindings. Several low- attenuation hepatic metastases are present. Forexample, a low attenuation lesion in hepatic segment eight whichmeasures 3.5 cm (axial image six).Biliary: The gallbladder is present. Suspect small layering stones orgallbladder sludge. No evidence of intra or extrahepatic biliarydilatation.GI tract: A left upper quadrant colostomy is in place with a small bowelcontaining peristomal hernia. A right lower quadrant colostomy is alsopresent. No associated obstruction. There are mildly distended gas andfluid-filled loops of small bowel in the left abdomen with no definitetransition point identified within the limitations of th e exam. Normalcaliber of the colon. No evidence of appendicitis. Soft tissuethickening in the left lateral rectum which likely reflects residual orrecurrent disease.Pelvis: Limited evaluation without intravenous contrast. There isbladder wall thickening and gas within the bladder suggestive ofcystitis. There appears to be a breach in the anterior rectal wall withan extraluminal fluid collection interposed between the bladder andrectum. This collection measures approximately 5.2 x 3.2 x 3.6 cm.Peritoneum/retroperitoneum: No pneumoperitoneum. No ascites. A few tinynodular densities in the left upper q uadrant at the splenic hilum arenonspecific and could reflect small splenules or metastatic soft tissuenodules. There is a cluster of enlarged lymph nodes in the midabdomen.For example, a 2.1 cm short axis lymph node on axial image 45. Numerousenlarged periaortic lymph nodes are also noted. Bones/softtissues: No acute or aggressive osseous lesions.IMPRESSION:1. Findings suspicious for rectal perforation with a 5.2 cm adjacentabscess.2. Bladder wall thickening and gas raises concern for associatedrectovesicular fistula.3. Findings of metastatic colorectal cancer with soft tissue thickeningin the left lateral residual rectum, as well as metastases in the lungbases, liver and abdominal lymph nodes.4. Mildly distended small bowel loops without overt obstruction.5. Left lower quadrant colostomy with a small bowel containingparastomal hernia.6. Bilateral percutaneous nephrostomy tubes. Mild left hydronephrosisand proximal hydroureter with the left-sided pigtail present in the leftlower pole. Correlate for drain malfunction.Electronically Signed By: Valentine Davis08/10/2023 22:27 CDTWorkstation Name:[id number], RANDOM [id number] 15:33:35 Test Item Value Reference Range Interpretation Comments SODIUM URINE (BEAKER) (test code = 56 meq/L 243) Reference Range: No NormalsOperator ID - ADMINCHLORIDE, RANDOM [id number] 15:33:34 Test Item Value Reference Range Interpretation Comments CHLORIDE URINE (BEAKER) (test code = 59 meq/L 20-330 682) Reference Range: No NormalsOperator ID - ADMINCREATININE, RANDOM [id number] 15:33:34 Test Item Value Reference Range Interpretation Comments CREATININE URINE (BEAKER) (test 90.4 mg/dL code = 375) Reference Range: No NormalsOperator ID - ADMINPROTEIN, RANDOM [id number] 15:33:34 Test Item Value Reference Range Interpretation Comments PROTEIN, URINE (BEAKER) (test code = 46 mg/dL 0-14 H 1569) Golf Superintendent ID - ADMINURINALYSIS W/ [id number] 15:26:58 Test Item Value Reference Range Interpretation Comments COLOR (BEAKER) (test code Light Yellow = 470) CLARITY (BEAKER) (test Clear code = 469) SPECIFIC GRAVITY UA 1.019 1.001-1.035 (BEAKER) (test code = 468) PH UA (BEAKER) (test code 6.5 5.0-8.0 = 467) PROTEIN UA (BEAKER) (test 50 mg/dL Negative A code = 464) GLUCOSE UA (BEAKER) (test Negative Negative code = 365) KETONES UA (BEAKER) (test Negative Negative code = 371) BILIRUBIN UA (BEAKER) Negative Negative (test code = 462) BLOOD UA (BEAKER) (test Negative Negative code = 461) NITRITE UA (BEAKER) (test Negative Negative code = 465) LEUKOCYTE ESTERASE UA Moderate Negative A (BEAKER) (test code = 466) UROBILINOGEN UA (BEAKER) 0.2 0.2-1.0 (test code = 463) RBC UA (BEAKER) (test code 2 /HPF = 519) WBC UA (BEAKER) (test code 8 /HPF = 520) BACTERIA (BEAKER) (test Rare code = 517) SOURCE(BEAKER) (test code Urine, Nephrostomy = 2446) Golf Superintendent ID - [auto]Golf Superintendent ID - techLACTATE DEHYDROGENASE (LDH)2023-08-10 12:46:18 Test Item Value Reference Range Interpretation Comments LACTATE DEHYDROGENASE (BEAKER) (test 433 U/L 125-220 H code = 635) Golf Superintendent ID - ADMINURIC [id number] 12:46:13 Test Item Value Reference Range Interpretation Comments URIC ACID (BEAKER) (test code = 9.4 mg/dL 2.6-7.2 H 773) Golf Superintendent ID - ADMINBASIC METABOLIC [id number] 06:54:01 Test Item Value Reference Range Interpretation Comments SODIUM (BEAKER) 134 meq/L 136-145 L (test code = 381) POTASSIUM 5.2 meq/L 3.5-5.1 H (BEAKER) (test code = 379) CHLORIDE (BEAKER) 100 meq/L 98-107 (test code = 382) CO2 (BEAKER) 21 meq/L 22-29 L (test code = 355) BLOOD UREA 27 mg/dL 7-21 H NITROGEN (BEAKER) (test code = 354) CREATININE 2.62 mg/dL 0.57-1.25 H (BEAKER) (test code = 358) GLUCOSE RANDOM 90 mg/dL 70-105 (BEAKER) (test code = 652) CALCIUM (BEAKER) 9.0 mg/dL 8.4-10.2 (test code = 697) EGFR (BEAKER) 28 Interpretatio n of eGFR (test code = mL/min/1.73 values Stage De scription 1092) sq m Result G1 Digna l or high >=90 G2 Mildly decreased 60-89 G3a Mildl y to moderately 45-5 9 G3b Moderately to s everely 30-44 G4 Severl y decreased 15-29 G5 Kidney failure <15Reported eGF R is based on the CKD-EPI 1 equation that d oes not use a race coefficientEsti mated GFR is not as accur ate as Creatinine Renetta bauer in predicting glom erular filtration rate . Estimated GFR is not appl icable for dialysis patien ts Golf Superintendent ID - [id number] 06:47:39 Test Item Value Reference Range Interpretation Comments MAGNESIUM (BEAKER) (test code = 1.7 mg/dL 1.6-2.6 627) Golf Superintendent ID - ADMINCBC W/PLT COUNT & AUTO [id number] 06:27:53 Test Item Value Reference Range Interpretation Comments WHITE BLOOD CELL COUNT (BEAKER) 4.8 K/ L 3.5-10.5 (test code = 775) RED BLOOD CELL COUNT (BEAKER) 3.57 M/ L 4.63-6.08 L (test code = 761) HEMOGLOBIN (BEAKER) (test code = 8.7 GM/DL 13.7-17.5 L 410) HEMATOCRIT (BEAKER) (test code = 28.2 % 40.1-51.0 L 411) MEAN CORPUSCULAR VOLUME (BEAKER) 79 fL 79-92 (test code = 753) MEAN CORPUSCULAR HEMOGLOBIN 24.4 pg 25.7-32.2 L (BEAKER) (test code = 751) MEAN CORPUSCULAR HEMOGLOBIN CONC 30.9 GM/DL 32.3-36.5 L (BEAKER) (test code = 752) RED CELL DISTRIBUTION WIDTH 21.2 % 11.6-14.4 H (BEAKER) (test code = 412) PLATELET COUNT (BEAKER) (test 581 K/CU MM 150-450 H code = 756) MEAN PLATELET VOLUME (BEAKER) 8.2 fL 9.4-12.4 L (test code = 754) NUCLEATED RED BLOOD CELLS 0 /100 WBC 0-0 (BEAKER) (test code = 413) NEUTROPHILS RELATIVE PERCENT 74 % (BEAKER) (test code = 429) LYMPHOCYTES RELATIVE PERCENT 12 % (BEAKER) (test code = 430) MONOCYTES RELATIVE PERCENT 13 % (BEAKER) (test code = 431) EOSINOPHILS RELATIVE PERCENT 2 % (BEAKER) (test code = 432) BASOPHILS RELATIVE PERCENT 0 % (BEAKER) (test code = 437) NEUTROPHILS ABSOLUTE COUNT 3.51 K/ L 1.78-5.38 (BEAKER) (test code = 670) LYMPHOCYTES ABSOLUTE COUNT 0.55 K/ L 1.32-3.57 L (BEAKER) (test code = 414) MONOCYTES ABSOLUTE COUNT (BEAKER) 0.61 K/ L 0.30-0.82 (test code = 415) EOSINOPHILS ABSOLUTE COUNT 0.08 K/ L 0.04-0.54 (BEAKER) (test code = 416) BASOPHILS ABSOLUTE COUNT (BEAKER) 0.01 K/ L 0.01-0.08 (test code = 417) IMMATURE GRANULOCYTES-RELATIVE 0.20 % 0.00-1.00 PERCENT (BEAKER) (test code = 2801) BASIC METABOLIC [id number] 05:02:22 Test Item Value Reference Range Interpretation Comments SODIUM (BEAKER) 134 meq/L 136-145 L (test code = 381) POTASSIUM 5.0 meq/L 3.5-5.1 (BEAKER) (test code = 379) CHLORIDE (BEAKER) 101 meq/L 98-107 (test code = 382) CO2 (BEAKER) 24 meq/L 22-29 (test code = 355) BLOOD UREA 29 mg/dL 7-21 H NITROGEN (BEAKER) (test code = 354) CREATININE 3.03 mg/dL 0.57-1.25 H (BEAKER) (test code = 358) GLUCOSE RANDOM 80 mg/dL 70-105 (BEAKER) (test code = 652) CALCIUM (BEAKER) 9.5 mg/dL 8.4-10.2 (test code = 697) EGFR (BEAKER) 23 Interpretatio n of eGFR (test code = mL/min/1.73 values Stage De scription 1092) sq m Result G1 Digna l or high >=90 G2 Mildly decreased 60-89 G3a Mildl y to moderately 45-5 9 G3b Moderately to s everely 30-44 G4 Severl y decreased 15-29 G5 Kidney failure <15Reported eGF R is based on the CKD-EPI 2020 equation that d oes not use a race coefficientEsti mated GFR is not as accur ate as Creatinine Renetta bauer in predicting glom erular filtration rate . Estimated GFR is not appl icable for dialysis patien ts Golf Superintendent ID - ZIGGY [id number] 04:49:35 Test Item Value Reference Range Interpretation Comments MAGNESIUM (BEAKER) (test code = 1.8 mg/dL 1.6-2.6 627) Golf Superintendent ID - ZIGGY WCBC W/PLT COUNT & AUTO [id number] 04:28:21 Test Item Value Reference Range Interpretation Comments WHITE BLOOD CELL COUNT (BEAKER) 5.8 K/ L 3.5-10.5 (test code = 775) RED BLOOD CELL COUNT (BEAKER) 3.65 M/ L 4.63-6.08 L (test code = 761) HEMOGLOBIN (BEAKER) (test code = 8.8 GM/DL 13.7-17.5 L 410) HEMATOCRIT (BEAKER) (test code = 28.6 % 40.1-51.0 L 411) MEAN CORPUSCULAR VOLUME (BEAKER) 78 fL 79-92 L (test code = 753) MEAN CORPUSCULAR HEMOGLOBIN 24.1 pg 25.7-32.2 L (BEAKER) (test code = 751) MEAN CORPUSCULAR HEMOGLOBIN CONC 30.8 GM/DL 32.3-36.5 L (BEAKER) (test code = 752) RED CELL DISTRIBUTION WIDTH 21.1 % 11.6-14.4 H (BEAKER) (test code = 412) PLATELET COUNT (BEAKER) (test 678 K/CU MM 150-450 H code = 756) MEAN PLATELET VOLUME (BEAKER) 8.4 fL 9.4-12.4 L (test code = 754) NUCLEATED RED BLOOD CELLS 0 /100 WBC 0-0 (BEAKER) (test code = 413) NEUTROPHILS RELATIVE PERCENT 74 % (BEAKER) (test code = 429) LYMPHOCYTES RELATIVE PERCENT 11 % (BEAKER) (test code = 430) MONOCYTES RELATIVE PERCENT 12 % (BEAKER) (test code = 431) EOSINOPHILS RELATIVE PERCENT 1 % (BEAKER) (test code = 432) BASOPHILS RELATIVE PERCENT 1 % (BEAKER) (test code = 437) NEUTROPHILS ABSOLUTE COUNT 4.32 K/ L 1.78-5.38 (BEAKER) (test code = 670) LYMPHOCYTES ABSOLUTE COUNT 0.65 K/ L 1.32-3.57 L (BEAKER) (test code = 414) MONOCYTES ABSOLUTE COUNT (BEAKER) 0.70 K/ L 0.30-0.82 (test code = 415) EOSINOPHILS ABSOLUTE COUNT 0.07 K/ L 0.04-0.54 (BEAKER) (test code = 416) BASOPHILS ABSOLUTE COUNT (BEAKER) 0.04 K/ L 0.01-0.08 (test code = 417) IMMATURE GRANULOCYTES-RELATIVE 0.50 % 0.00-1.00 PERCENT (BEAKER) (test code = 2801) BASIC METABOLIC [id number] 05:08:33 Test Item Value Reference Range Interpretation Comments SODIUM (BEAKER) 136 meq/L 136-145 (test code = 381) POTASSIUM 5.1 meq/L 3.5-5.1 (BEAKER) (test code = 379) CHLORIDE (BEAKER) 102 meq/L 98-107 (test code = 382) CO2 (BEAKER) 25 meq/L 22-29 (test code = 355) BLOOD UREA 26 mg/dL 7-21 H NITROGEN (BEAKER) (test code = 354) CREATININE 2.59 mg/dL 0.57-1.25 H (BEAKER) (test code = 358) GLUCOSE RANDOM 81 mg/dL 70-105 (BEAKER) (test code = 652) CALCIUM (BEAKER) 9.3 mg/dL 8.4-10.2 (test code = 697) EGFR (BEAKER) 28 Interpretatio n of eGFR (test code = mL/min/1.73 values Stage De scription 1092) sq m Result G1 Digna l or high >=90 G2 Mildly decreased 60-89 G3a Mildl y to moderately 45-5 9 G3b Moderately to s everely 30-44 G4 Severl y decreased 15-29 G5 Kidney failure <15Reported eGF R is based on the CKD-EPI 2020 equation that d oes not use a race coefficientEsti mated GFR is not as accur ate as Creatinine Renetta juancarlos in predicting glom erular filtration rate . Estimated GFR is not appl icable for dialysis patien ts Golf Superintendent ID - [id number] 05:01:04 Test Item Value Reference Range Interpretation Comments MAGNESIUM (BEAKER) (test code = 1.8 mg/dL 1.6-2.6 627) Golf Superintendent ID - emCBC W/PLT COUNT & AUTO [id number] 04:52:49 Test Item Value Reference Range Interpretation Comments WHITE BLOOD CELL COUNT (BEAKER) 5.6 K/ L 3.5-10.5 (test code = 775) RED BLOOD CELL COUNT (BEAKER) 3.51 M/ L 4.63-6.08 L (test code = 761) HEMOGLOBIN (BEAKER) (test code = 8.6 GM/DL 13.7-17.5 L 410) HEMATOCRIT (BEAKER) (test code = 28.4 % 40.1-51.0 L 411) MEAN CORPUSCULAR VOLUME (BEAKER) 81 fL 79-92 (test code = 753) MEAN CORPUSCULAR HEMOGLOBIN 24.5 pg 25.7-32.2 L (BEAKER) (test code = 751) MEAN CORPUSCULAR HEMOGLOBIN CONC 30.3 GM/DL 32.3-36.5 L (BEAKER) (test code = 752) RED CELL DISTRIBUTION WIDTH 20.4 % 11.6-14.4 H (BEAKER) (test code = 412) PLATELET COUNT (BEAKER) (test 566 K/CU MM 150-450 H code = 756) MEAN PLATELET VOLUME (BEAKER) 8.1 fL 9.4-12.4 L (test code = 754) NUCLEATED RED BLOOD CELLS 0 /100 WBC 0-0 (BEAKER) (test code = 413) NEUTROPHILS RELATIVE PERCENT 76 % (BEAKER) (test code = 429) LYMPHOCYTES RELATIVE PERCENT 10 % (BEAKER) (test code = 430) MONOCYTES RELATIVE PERCENT 11 % (BEAKER) (test code = 431) EOSINOPHILS RELATIVE PERCENT 2 % (BEAKER) (test code = 432) BASOPHILS RELATIVE PERCENT 0 % (BEAKER) (test code = 437) NEUTROPHILS ABSOLUTE COUNT 4.21 K/ L 1.78-5.38 (BEAKER) (test code = 670) LYMPHOCYTES ABSOLUTE COUNT 0.56 K/ L 1.32-3.57 L (BEAKER) (test code = 414) MONOCYTES ABSOLUTE COUNT (BEAKER) 0.61 K/ L 0.30-0.82 (test code = 415) EOSINOPHILS ABSOLUTE COUNT 0.12 K/ L 0.04-0.54 (BEAKER) (test code = 416) BASOPHILS ABSOLUTE COUNT (BEAKER) 0.02 K/ L 0.01-0.08 (test code = 417) IMMATURE GRANULOCYTES-RELATIVE 0.50 % 0.00-1.00 PERCENT (BEAKER) (test code = 2804) VANCOMYCIN LEVEL, [id number] 11:27:37 Test Item Value Reference Range Interpretation Comments VANCOMYCIN TROUGH (BEAKER) (test 4.8 ug/mL 10.0-20.0 L code = 522) [employer] ID - BCBLOOD [id number] 11:00:50 Test Item Value Reference Range Interpretation Comments CULTURE (BEAKER) (test No growth in 5 days code = 1095) The specimen volume collected for this blood culture was below the optimum (10 mL per bottle or 20 mL total). Use of lower volumes may adversely affect recovery and/or detection times of some organisms.BLOOD [id number] 11:00:50 Test Item Value Reference Range Interpretation Comments CULTURE (BEAKER) (test No growth in 5 days code = 1095) The specimen volume collected for this blood culture was below the optimum (10 mL per bottle or 20 mL total). Use of lower volumes may adversely affect recovery and/or detection times of some organisms.BASIC METABOLIC PANEL 2023-08-07 05:03:41 Test Item Value Reference Range Interpretation Comments SODIUM (BEAKER) 136 meq/L 136-145 (test code = 381) POTASSIUM 5.2 meq/L 3.5-5.1 H (BEAKER) (test code = 379) CHLORIDE (BEAKER) 101 meq/L 98-107 (test code = 382) CO2 (BEAKER) 25 meq/L 22-29 (test code = 355) BLOOD UREA 28 mg/dL 7-21 H NITROGEN (BEAKER) (test code = 354) CREATININE 2.77 mg/dL 0.57-1.25 H (BEAKER) (test code = 358) GLUCOSE RANDOM 77 mg/dL 70-105 (BEAKER) (test code = 652) CALCIUM (BEAKER) 9.3 mg/dL 8.4-10.2 (test code = 697) EGFR (BEAKER) 26 Interpretatio n of eGFR (test code = mL/min/1.73 values Stage De scription 1092) sq m Result G1 Digna l or high >=90 G2 Mildly decreased 60-89 G3a Mildl y to moderately 45-5 9 G3b Moderately to s everely 30-44 G4 Severl y decreased 15-29 G5 Kidney failure <15Reported eGF R is based on the CKD-EPI 2021 equation that d oes not use a race coefficientEsti mated GFR is not as accur ate as Creatinine Renetta bauer in predicting glom erular filtration rate . Estimated GFR is not appl icable for dialysis patien ts Golf Superintendent ID - [id number] 05:02:02 Test Item Value Reference Range Interpretation Comments MAGNESIUM (BEAKER) (test code = 1.9 mg/dL 1.6-2.6 627) Golf Superintendent ID - EOCBC W/PLT COUNT & AUTO [id number] 04:36:12 Test Item Value Reference Range Interpretation Comments WHITE BLOOD CELL COUNT (BEAKER) 5.9 K/ L 3.5-10.5 (test code = 775) RED BLOOD CELL COUNT (BEAKER) 3.40 M/ L 4.63-6.08 L (test code = 761) HEMOGLOBIN (BEAKER) (test code = 8.2 GM/DL 13.7-17.5 L 410) HEMATOCRIT (BEAKER) (test code = 26.6 % 40.1-51.0 L 411) MEAN CORPUSCULAR VOLUME (BEAKER) 78 fL 79-92 L (test code = 753) MEAN CORPUSCULAR HEMOGLOBIN 24.1 pg 25.7-32.2 L (BEAKER) (test code = 751) MEAN CORPUSCULAR HEMOGLOBIN CONC 30.8 GM/DL 32.3-36.5 L (BEAKER) (test code = 752) RED CELL DISTRIBUTION WIDTH 20.1 % 11.6-14.4 H (BEAKER) (test code = 412) PLATELET COUNT (BEAKER) (test 540 K/CU MM 150-450 H code = 756) MEAN PLATELET VOLUME (BEAKER) 8.4 fL 9.4-12.4 L (test code = 754) NUCLEATED RED BLOOD CELLS 0 /100 WBC 0-0 (BEAKER) (test code = 413) NEUTROPHILS RELATIVE PERCENT 79 % (BEAKER) (test code = 429) LYMPHOCYTES RELATIVE PERCENT 8 % (BEAKER) (test code = 430) MONOCYTES RELATIVE PERCENT 11 % (BEAKER) (test code = 431) EOSINOPHILS RELATIVE PERCENT 2 % (BEAKER) (test code = 432) BASOPHILS RELATIVE PERCENT 1 % (BEAKER) (test code = 437) NEUTROPHILS ABSOLUTE COUNT 4.65 K/ L 1.78-5.38 (BEAKER) (test code = 670) LYMPHOCYTES ABSOLUTE COUNT 0.48 K/ L 1.32-3.57 L (BEAKER) (test code = 414) MONOCYTES ABSOLUTE COUNT (BEAKER) 0.62 K/ L 0.30-0.82 (test code = 415) EOSINOPHILS ABSOLUTE COUNT 0.12 K/ L 0.04-0.54 (BEAKER) (test code = 416) BASOPHILS ABSOLUTE COUNT (BEAKER) 0.03 K/ L 0.01-0.08 (test code = 417) IMMATURE GRANULOCYTES-RELATIVE 0.30 % 0.00-1.00 PERCENT (BEAKER) (test code = 2801) BASIC METABOLIC [id number] 07:20:33 Test Item Value Reference Range Interpretation Comments SODIUM (BEAKER) 134 meq/L 136-145 L (test code = 381) POTASSIUM 5.0 meq/L 3.5-5.1 (BEAKER) (test code = 379) CHLORIDE (BEAKER) 100 meq/L 98-107 (test code = 382) CO2 (BEAKER) 25 meq/L 22-29 (test code = 355) BLOOD UREA 28 mg/dL 7-21 H NITROGEN (BEAKER) (test code = 354) CREATININE 2.50 mg/dL 0.57-1.25 H (BEAKER) (test code = 358) GLUCOSE RANDOM 85 mg/dL 70-105 (BEAKER) (test code = 652) CALCIUM (BEAKER) 9.2 mg/dL 8.4-10.2 (test code = 697) EGFR (BEAKER) 29 Interpretati on of eGFR (test code = mL/min/1.73 values Stage De scription 1092) sq m Result G1 Digna l or high >=90 G2 Mildly decreased 60-89 G3a Mildl y to moderately 45- 59 G3b Moderately to s everely 30-44 G4 Severl y decreased 15-29 G5 Kidney failure <15Reported eGF R is based on the CKD-EPI 2020 equation that d oes not use a race coefficientEsti mated GFR is not as accur ate as Creatinine Renetta bauer in predicting glom erular filtration rate . Estimated GFR is not appl icable for dialysis patien ts Golf Superintendent ID - [id number] 06:54:10 Test Item Value Reference Range Interpretation Comments MAGNESIUM (BEAKER) (test code = 1.9 mg/dL 1.6-2.6 627) Golf Superintendent ID - ADMINCBC W/PLT COUNT & AUTO [id number] 06:37:53 Test Item Value Reference Range Interpretation Comments WHITE BLOOD CELL COUNT (BEAKER) 4.9 K/ L 3.5-10.5 (test code = 775) RED BLOOD CELL COUNT (BEAKER) 2.90 M/ L 4.63-6.08 L (test code = 761) HEMOGLOBIN (BEAKER) (test code = 6.8 GM/DL 13.7-17.5 L 410) HEMATOCRIT (BEAKER) (test code = 22.8 % 40.1-51.0 L 411) MEAN CORPUSCULAR VOLUME (BEAKER) 79 fL 79-92 (test code = 753) MEAN CORPUSCULAR HEMOGLOBIN 23.4 pg 25.7-32.2 L (BEAKER) (test code = 751) MEAN CORPUSCULAR HEMOGLOBIN CONC 29.8 GM/DL 32.3-36.5 L (BEAKER) (test code = 752) RED CELL DISTRIBUTION WIDTH 21.5 % 11.6-14.4 H (BEAKER) (test code = 412) PLATELET COUNT (BEAKER) (test 532 K/CU MM 150-450 H code = 756) MEAN PLATELET VOLUME (BEAKER) 8.6 fL 9.4-12.4 L (test code = 754) NUCLEATED RED BLOOD CELLS 0 /100 WBC 0-0 (BEAKER) (test code = 413) NEUTROPHILS RELATIVE PERCENT 78 % (BEAKER) (test code = 429) LYMPHOCYTES RELATIVE PERCENT 9 % (BEAKER) (test code = 430) MONOCYTES RELATIVE PERCENT 11 % (BEAKER) (test code = 431) EOSINOPHILS RELATIVE PERCENT 2 % (BEAKER) (test code = 432) BASOPHILS RELATIVE PERCENT 1 % (BEAKER) (test code = 437) NEUTROPHILS ABSOLUTE COUNT 3.83 K/ L 1.78-5.38 (BEAKER) (test code = 670) LYMPHOCYTES ABSOLUTE COUNT 0.42 K/ L 1.32-3.57 L (BEAKER) (test code = 414) MONOCYTES ABSOLUTE COUNT (BEAKER) 0.55 K/ L 0.30-0.82 (test code = 415) EOSINOPHILS ABSOLUTE COUNT 0.09 K/ L 0.04-0.54 (BEAKER) (test code = 416) BASOPHILS ABSOLUTE COUNT (BEAKER) 0.03 K/ L 0.01-0.08 (test code = 417) IMMATURE GRANULOCYTES-RELATIVE 0.40 % 0.00-1.00 PERCENT (BEAKER) (test code = 2801) HEMOGLOBIN AND [id number] 17:17:05 Test Item Value Reference Range Interpretation Comments HEMOGLOBIN (BEAKER) (test code = 7.2 GM/DL 13.7-17.5 L 410) HEMATOCRIT (BEAKER) (test code = 23.1 % 40.1-51.0 L 411) Golf Superintendent ID - 6000BASIC METABOLIC [id number] 05:24:50 Test Item Value Reference Range Interpretation Comments SODIUM (BEAKER) 137 meq/L 136-145 (test code = 381) POTASSIUM 4.9 meq/L 3.5-5.1 (BEAKER) (test code = 379) CHLORIDE (BEAKER) 102 meq/L 98-107 (test code = 382) CO2 (BEAKER) 27 meq/L 22-29 (test code = 355) BLOOD UREA 33 mg/dL 7-21 H NITROGEN (BEAKER) (test code = 354) CREATININE 2.70 mg/dL 0.57-1.25 H (BEAKER) (test code = 358) GLUCOSE RANDOM 81 mg/dL 70-105 (BEAKER) (test code = 652) CALCIUM (BEAKER) 9.2 mg/dL 8.4-10.2 (test code = 697) EGFR (BEAKER) 27 Interpretatio n of eGFR (test code = mL/min/1.73 values Stage De scription 1092) sq m Result G1 Digna l or high >=90 G2 Mildly decreased 60-89 G3a Mildl y to moderately 45-5 9 G3b Moderately to s everely 30-44 G4 Severl y decreased 15-29 G5 Kidney failure <15Reported eGF R is based on the CKD-EPI 2020 equation that d oes not use a race coefficientEsti mated GFR is not as accur ate as Creatinine Renetta bauer in predicting glom erular filtration rate . Estimated GFR is not appl icable for dialysis patien ts Golf Superintendent ID - [id number] 05:23:48 Test Item Value Reference Range Interpretation Comments MAGNESIUM (BEAKER) (test code = 2.2 mg/dL 1.6-2.6 627) Golf Superintendent ID - ADMINCBC W/PLT COUNT & AUTO [id number] 05:03:41 Test Item Value Reference Range Interpretation Comments WHITE BLOOD CELL COUNT (BEAKER) 5.7 K/ L 3.5-10.5 (test code = 775) RED BLOOD CELL COUNT (BEAKER) 2.89 M/ L 4.63-6.08 L (test code = 761) HEMOGLOBIN (BEAKER) (test code = 7.0 GM/DL 13.7-17.5 L 410) HEMATOCRIT (BEAKER) (test code = 22.4 % 40.1-51.0 L 411) MEAN CORPUSCULAR VOLUME (BEAKER) 78 fL 79-92 L (test code = 753) MEAN CORPUSCULAR HEMOGLOBIN 24.2 pg 25.7-32.2 L (BEAKER) (test code = 751) MEAN CORPUSCULAR HEMOGLOBIN CONC 31.3 GM/DL 32.3-36.5 L (BEAKER) (test code = 752) RED CELL DISTRIBUTION WIDTH 21.2 % 11.6-14.4 H (BEAKER) (test code = 412) PLATELET COUNT (BEAKER) (test 516 K/CU MM 150-450 H code = 756) MEAN PLATELET VOLUME (BEAKER) 8.6 fL 9.4-12.4 L (test code = 754) NUCLEATED RED BLOOD CELLS 0 /100 WBC 0-0 (BEAKER) (test code = 413) NEUTROPHILS RELATIVE PERCENT 80 % (BEAKER) (test code = 429) LYMPHOCYTES RELATIVE PERCENT 9 % (BEAKER) (test code = 430) MONOCYTES RELATIVE PERCENT 9 % (BEAKER) (test code = 431) EOSINOPHILS RELATIVE PERCENT 1 % (BEAKER) (test code = 432) BASOPHILS RELATIVE PERCENT 0 % (BEAKER) (test code = 437) NEUTROPHILS ABSOLUTE COUNT 4.55 K/ L 1.78-5.38 (BEAKER) (test code = 670) LYMPHOCYTES ABSOLUTE COUNT 0.51 K/ L 1.32-3.57 L (BEAKER) (test code = 414) MONOCYTES ABSOLUTE COUNT (BEAKER) 0.52 K/ L 0.30-0.82 (test code = 415) EOSINOPHILS ABSOLUTE COUNT 0.05 K/ L 0.04-0.54 (BEAKER) (test code = 416) BASOPHILS ABSOLUTE COUNT (BEAKER) 0.01 K/ L 0.01-0.08 (test code = 417) IMMATURE GRANULOCYTES-RELATIVE 0.40 % 0.00-1.00 PERCENT (BEAKER) (test code = 2801) [id number] 14:23:07 Test Item Value Reference Range Interpretation Comments FERRITIN (BEAKER) (test code = 530.72 ng/mL 5.00-275.00 H 361) Golf Superintendent ID - ROBERTC METABOLIC [id number] 14:05:58 Test Item Value Reference Range Interpretation Comments SODIUM (BEAKER) 136 meq/L 136-145 (test code = 381) POTASSIUM 5.0 meq/L 3.5-5.1 (BEAKER) (test code = 379) CHLORIDE (BEAKER) 102 meq/L 98-107 (test code = 382) CO2 (BEAKER) 24 meq/L 22-29 (test code = 355) BLOOD UREA 34 mg/dL 7-21 H NITROGEN (BEAKER) (test code = 354) CREATININE 2.92 mg/dL 0.57-1.25 H (BEAKER) (test code = 358) GLUCOSE RANDOM 88 mg/dL 70-105 (BEAKER) (test code = 652) CALCIUM (BEAKER) 9.0 mg/dL 8.4-10.2 (test code = 697) EGFR (BEAKER) 24 Interpretatio n of eGFR (test code = mL/min/1.73 values Stage De scription 1092) sq m Result G1 Digna l or high >=90 G2 Mildly decreased 60-89 G3a Mildl y to moderately 45-5 9 G3b Moderately to s everely 30-44 G4 Severl y decreased 15-29 G5 Kidney failure <15Reported eGF R is based on the CKD-EPI 2020 equation that d oes not use a race coefficientEsti mated GFR is not as accur ate as Creatinine Renetta juancarlos in predicting glom erular filtration rate . Estimated GFR is not appl icable for dialysis patien ts Golf Superintendent ID - ADMINIRON, TIBC, % SAT. (WITHOUT FERRITIN)2023-08-04 14:01:28 Test Item Value Reference Range Interpretation Comments IRON (BEAKER) (test code = 547) 9.0 ug/dL 40.0-160.0 L TOTAL IRON BINDING CAPACITY 116 ug/dL 250-450 L (BEAKER) (test code = 769) IRON % SATURATION (2) (BEAKER) 8 % 20-55 L (test code = 2590) Golf Superintendent ID - [id number] 14:00:46 Test Item Value Reference Range Interpretation Comments MAGNESIUM (BEAKER) (test code = 1.7 mg/dL 1.6-2.6 627) Golf Superintendent ID - ADMINCBC W/PLT COUNT & AUTO [id number] 13:49:16 Test Item Value Reference Range Interpretation Comments WHITE BLOOD CELL COUNT (BEAKER) 6.7 K/ L 3.5-10.5 (test code = 775) RED BLOOD CELL COUNT (BEAKER) 2.96 M/ L 4.63-6.08 L (test code = 761) HEMOGLOBIN (BEAKER) (test code = 7.2 GM/DL 13.7-17.5 L 410) HEMATOCRIT (BEAKER) (test code = 23.0 % 40.1-51.0 L 411) MEAN CORPUSCULAR VOLUME (BEAKER) 78 fL 79-92 L (test code = 753) MEAN CORPUSCULAR HEMOGLOBIN 24.3 pg 25.7-32.2 L (BEAKER) (test code = 751) MEAN CORPUSCULAR HEMOGLOBIN CONC 31.3 GM/DL 32.3-36.5 L (BEAKER) (test code = 752) RED CELL DISTRIBUTION WIDTH 21.2 % 11.6-14.4 H (BEAKER) (test code = 412) PLATELET COUNT (BEAKER) (test 492 K/CU MM 150-450 H code = 756) MEAN PLATELET VOLUME (BEAKER) 8.5 fL 9.4-12.4 L (test code = 754) NUCLEATED RED BLOOD CELLS 0 /100 WBC 0-0 (BEAKER) (test code = 413) NEUTROPHILS RELATIVE PERCENT 83 % (BEAKER) (test code = 429) LYMPHOCYTES RELATIVE PERCENT 9 % (BEAKER) (test code = 430) MONOCYTES RELATIVE PERCENT 7 % (BEAKER) (test code = 431) EOSINOPHILS RELATIVE PERCENT 1 % (BEAKER) (test code = 432) BASOPHILS RELATIVE PERCENT 0 % (BEAKER) (test code = 437) NEUTROPHILS ABSOLUTE COUNT 5.54 K/ L 1.78-5.38 H (BEAKER) (test code = 670) LYMPHOCYTES ABSOLUTE COUNT 0.57 K/ L 1.32-3.57 L (BEAKER) (test code = 414) MONOCYTES ABSOLUTE COUNT (BEAKER) 0.47 K/ L 0.30-0.82 (test code = 415) EOSINOPHILS ABSOLUTE COUNT 0.05 K/ L 0.04-0.54 (BEAKER) (test code = 416) BASOPHILS ABSOLUTE COUNT (BEAKER) 0.02 K/ L 0.01-0.08 (test code = 417) IMMATURE GRANULOCYTES-RELATIVE 0.40 % 0.00-1.00 PERCENT (BEAKER) (test code = 2801) URINALYSIS W/ REFLEX URINE [id number] 16:52:29 Test Item Value Reference Range Interpretation Comments COLOR (BEAKER) (test code = 470) Light Yellow CLARITY (BEAKER) (test code = Hazy 469) SPECIFIC GRAVITY UA (BEAKER) 1.014 1.001-1.035 (test code = 468) PH UA (BEAKER) (test code = 467) 7.0 5.0-8.0 PROTEIN UA (BEAKER) (test code = 30 mg/dL Negative A 464) GLUCOSE UA (BEAKER) (test code = Negative Negative 365) KETONES UA (BEAKER) (test code = Negative Negative 371) BILIRUBIN UA (BEAKER) (test code Negative Negative = 462) BLOOD UA (BEAKER) (test code = Negative Negative 461) NITRITE UA (BEAKER) (test code = Positive Negative A 465) LEUKOCYTE ESTERASE UA (BEAKER) Large Negative A (test code = 466) UROBILINOGEN UA (BEAKER) (test 0.2 0.2-1.0 code = 463) RBC UA (BEAKER) (test code = 3 /HPF 519) WBC UA (BEAKER) (test code = 35 /HPF 520) SOURCE(BEAKER) (test code = 2795) Golf Superintendent ID - [auto]Golf Superintendent ID - techBASIC METABOLIC [id number] 10:36:19 Test Item Value Reference Range Interpretation Comments SODIUM (BEAKER) 137 meq/L 136-145 (test code = 381) POTASSIUM 5.1 meq/L 3.5-5.1 (BEAKER) (test code = 379) CHLORIDE (BEAKER) 104 meq/L 98-107 (test code = 382) CO2 (BEAKER) 26 meq/L 22-29 (test code = 355) BLOOD UREA 36 mg/dL 7-21 H NITROGEN (BEAKER) (test code = 354) CREATININE 3.22 mg/dL 0.57-1.25 H (BEAKER) (test code = 358) GLUCOSE RANDOM 91 mg/dL 70-105 (BEAKER) (test code = 652) CALCIUM (BEAKER) 8.8 mg/dL 8.4-10.2 (test code = 697) EGFR (BEAKER) 22 Interpretatio n of eGFR (test code = mL/min/1.73 values Stage De scription 1092) sq m Result G1 Digna l or high >=90 G2 Mildly decreased 60-89 G3a Mildl y to moderately 45-5 9 G3b Moderately to s everely 30-44 G4 Severl y decreased 15-29 G5 Kidney failure <15Reported eGF R is based on the CKD-EPI 2020 equation that d oes not use a race coefficientEsti mated GFR is not as accur ate as Creatinine Renetta juancarlos in predicting glom erular filtration rate . Estimated GFR is not appl icable for dialysis patien ts Golf Superintendent ID - emCBC W/PLT COUNT & AUTO [id number] 09:59:41 Test Item Value Reference Range Interpretation Comments WHITE BLOOD CELL COUNT (BEAKER) 8.2 K/ L 3.5-10.5 (test code = 775) RED BLOOD CELL COUNT (BEAKER) 2.70 M/ L 4.63-6.08 L (test code = 761) HEMOGLOBIN (BEAKER) (test code = 6.2 GM/DL 13.7-17.5 L 410) HEMATOCRIT (BEAKER) (test code = 20.3 % 40.1-51.0 L 411) MEAN CORPUSCULAR VOLUME (BEAKER) 75 fL 79-92 L (test code = 753) MEAN CORPUSCULAR HEMOGLOBIN 23.0 pg 25.7-32.2 L (BEAKER) (test code = 751) MEAN CORPUSCULAR HEMOGLOBIN CONC 30.5 GM/DL 32.3-36.5 L (BEAKER) (test code = 752) RED CELL DISTRIBUTION WIDTH 21.3 % 11.6-14.4 H (BEAKER) (test code = 412) PLATELET COUNT (BEAKER) (test 436 K/CU MM 150-450 code = 756) MEAN PLATELET VOLUME (BEAKER) 8.9 fL 9.4-12.4 L (test code = 754) NUCLEATED RED BLOOD CELLS 0 /100 WBC 0-0 (BEAKER) (test code = 413) NEUTROPHILS RELATIVE PERCENT 87 % (BEAKER) (test code = 429) LYMPHOCYTES RELATIVE PERCENT 6 % (BEAKER) (test code = 430) MONOCYTES RELATIVE PERCENT 6 % (BEAKER) (test code = 431) EOSINOPHILS RELATIVE PERCENT 1 % (BEAKER) (test code = 432) BASOPHILS RELATIVE PERCENT 0 % (BEAKER) (test code = 437) NEUTROPHILS ABSOLUTE COUNT 7.18 K/ L 1.78-5.38 H (BEAKER) (test code = 670) LYMPHOCYTES ABSOLUTE COUNT 0.46 K/ L 1.32-3.57 L (BEAKER) (test code = 414) MONOCYTES ABSOLUTE COUNT (BEAKER) 0.46 K/ L 0.30-0.82 (test code = 415) EOSINOPHILS ABSOLUTE COUNT 0.06 K/ L 0.04-0.54 (BEAKER) (test code = 416) BASOPHILS ABSOLUTE COUNT (BEAKER) 0.03 K/ L 0.01-0.08 (test code = 417) IMMATURE GRANULOCYTES-RELATIVE 0.60 % 0.00-1.00 PERCENT (BEAKER) (test code = 2801) CREATININE, RANDOM [id number] 15:40:38 Test Item Value Reference Range Interpretation Comments CREATININE URINE (BEAKER) (test 84.2 mg/dL code = 375) Reference Range: No NormalsOperator ID - BSSODIUM, RANDOM [id number] 15:40:38 Test Item Value Reference Range Interpretation Comments SODIUM URINE (BEAKER) (test code = 38 meq/L 243) Reference Range: No NormalsOperator ID - BSUS RENAL [id number] 15:30:[facility] : 1965 Sex: MRenal ultr asoundClinical History: Acute kidney injury, nephrostomyComparison: Outside CT abdomen/pelvis from 08/01/2023Findings:Sonographic evaluation of the kidneys is performed.The right kidney is normal in size measuring 9.5 x 4.6 x 5.2 cm withcortical thickness of 1.0 cm. Partially visualized nephrostomy catheternoted in place. Cortical echogenicity is within normal limits. There isno evidence for solid renal mass, hydronephrosis, or shadowing calculi.The left kidney is normal in size measuring 11.1 x 5.9x 5.1 cm withcortical thickness of 1.4 cm. Partially visualized nephrostomy catheternoted in place. Cortical echogenicity is within normal limits. There ismild pelvocaliectasis without true intrarenal h ydronephrosis. There isno evidence for solid renal mass, hydronephrosis, or shadowing calculi.Echogenic material noted within the lumen of the partially distendedurinary bladder. IMPRESSION:Impression:Unremarkable sonographic appearance of the kidneys. Partially visualizedbilateral percutaneous nephros fredy catheters identified in place.Echogenic material noted within the lumen of the urinary bladder whichmay reflect debris or blood products.Electronically Signed By: Carlyle Schmidt MD08/02/2023 15:32 CDTWorkstation Name: [id number] URINALYSIS W/ REFLEX URINE [id number] 11:49:53 Test Item Value Reference Range Interpretation Comments COLOR (BEAKER) (test code = 470) Light Yellow CLARITY (BEAKER) (test code = Cloudy 469) SPECIFIC GRAVITY UA (BEAKER) 1.017 1.001-1.035 (test code = 468) PH UA (BEAKER) (test code = 467) 8.5 5.0-8.0 H PROTEIN UA (BEAKER) (test code = 70 mg/dL Negative A 464) GLUCOSE UA (BEAKER) (test code = Negative Negative 365) KETONES UA (BEAKER) (test code = Negative Negative 371) BILIRUBIN UA (BEAKER) (test code Negative Negative = 462) BLOOD UA (BEAKER) (test code = Trace Negative A 461) NITRITE UA (BEAKER) (test code = Positive Negative A 465) LEUKOCYTE ESTERASE UA (BEAKER) Large Negative A (test code = 466) UROBILINOGEN UA (BEAKER) (test 0.2 0.2-1.0 code = 463) RBC UA (BEAKER) (test code = 5 /HPF 519) WBC UA (BEAKER) (test code = 14 /HPF 520) BACTERIA (BEAKER) (test code = Occasional 517) AMORPHOUS CRYSTALS (BEAKER) Rare (test code = 1584) SOURCE(BEAKER) (test code = 2795) Golf Superintendent ID - [auto]Golf Superintendent ID - [id number] 11:04:47 Test Item Value Reference Range Interpretation Comments PARTIAL THROMBOPLASTIN TIME 26.5 seconds 22.5-36.0 (BEAKER) (test code = 760) PROTHROMBIN [id number] 11:04:09 Test Item Value Reference Range Interpretation Comments PROTIME (BEAKER) (test code = 14.6 seconds 11.9-14.2 H 759) INR (BEAKER) (test code = 370) 1.13 <=5.90 RECOMMENDED COUMADIN/WARFARIN INR THERAPY RANGESSTANDARD DOSE: 2.0 - 3.0 Includes: PROPHYLAXIS for venous thrombosis, systemic embolization; TREATMENT for venous thrombosis and/or pulmonary embolus.HIGH RISK: Target INR is 2.5-3.5 for patients with mechanical heart valves.COMPREHENSIVE METABOLIC PANEL 2023-08-02 10:42:52 Test Item Value Reference Range Interpretation Comments TOTAL PROTEIN 7.1 gm/dL 6.0-8.3 (BEAKER) (test code = 770) ALBUMIN (BEAKER) 2.9 g/dL 3.5-5.0 L (test code = 1145) ALKALINE 62 U/L 40-150 PHOSPHATASE (BEAKER) (test code = 346) BILIRUBIN TOTAL 0.3 mg/dL 0.2-1.2 (BEAKER) (test code = 377) SODIUM (BEAKER) 138 meq/L 136-145 (test code = 381) POTASSIUM (BEAKER) 5.3 meq/L 3.5-5.1 H (test code = 379) CHLORIDE (BEAKER) 105 meq/L 98-107 (test code = 382) CO2 (BEAKER) (test 24 meq/L 22-29 code = 355) BLOOD UREA 41 mg/dL 7-21 H NITROGEN (BEAKER) (test code = 354) CREATININE 3.84 mg/dL 0.57-1.25 H (BEAKER) (test code = 358) GLUCOSE RANDOM 116 mg/dL 70-105 H (BEAKER) (test code = 652) CALCIUM (BEAKER) 9.0 mg/dL 8.4-10.2 (test code = 697) AST (SGOT) 9 U/L 5-34 (BEAKER) (test code = 353) ALT (SGPT) < U/L 6-55 L (BEAKER) (test code = 347) EGFR (BEAKER) 17 Interpretatio n of eGFR (test code = 1092) mL/min/1.[address] age Description sq m Result G1 Digna l or high >=90 G2 Mildly decreased 60-89 G3a Mildl y to moderately 45-5 9 G3b Moderately to s everely 30-44 G4 Severl y decreased 15-29 G5 Kidney failure <15Reported eGF R is based on the CKD-EPI 2020 equation that d oes not use a race coefficientEsti mated GFR is not as accur ate as Creatinine Renetta ujancarlos in predicting glom erular filtration rate . Estimated GFR is not appl icable for dialysis patien ts Golf Superintendent ID - BSLACTIC ACID, [id number] 10:31:02 Test Item Value Reference Range Interpretation Comments LACTATE BLOOD VENOUS 1.19 mmol/L 0.50-2.00 Specime n slightly (2) (BEAKER) (test hemolyzed code = 2222) Golf Superintendent ID - BSCBC W/PLT COUNT & AUTO [id number] 10:30:42 Test Item Value Reference Range Interpretation Comments WHITE BLOOD CELL COUNT (BEAKER) 12.0 K/ L 3.5-10.5 H (test code = 775) RED BLOOD CELL COUNT (BEAKER) 3.06 M/ L 4.63-6.08 L (test code = 761) HEMOGLOBIN (BEAKER) (test code = 7.1 GM/DL 13.7-17.5 L 410) HEMATOCRIT (BEAKER) (test code = 23.7 % 40.1-51.0 L 411) MEAN CORPUSCULAR VOLUME (BEAKER) 78 fL 79-92 L (test code = 753) MEAN CORPUSCULAR HEMOGLOBIN 23.2 pg 25.7-32.2 L (BEAKER) (test code = 751) MEAN CORPUSCULAR HEMOGLOBIN CONC 30.0 GM/DL 32.3-36.5 L (BEAKER) (test code = 752) RED CELL DISTRIBUTION WIDTH 21.1 % 11.6-14.4 H (BEAKER) (test code = 412) PLATELET COUNT (BEAKER) (test 454 K/CU MM 150-450 H code = 756) MEAN PLATELET VOLUME (BEAKER) 8.8 fL 9.4-12.4 L (test code = 754) NUCLEATED RED BLOOD CELLS 0 /100 WBC 0-0 (BEAKER) (test code = 413) NEUTROPHILS RELATIVE PERCENT 91 % (BEAKER) (test code = 429) LYMPHOCYTES RELATIVE PERCENT 2 % (BEAKER) (test code = 430) MONOCYTES RELATIVE PERCENT 5 % (BEAKER) (test code = 431) EOSINOPHILS RELATIVE PERCENT 0 % (BEAKER) (test code = 432) BASOPHILS RELATIVE PERCENT 0 % (BEAKER) (test code = 437) NEUTROPHILS ABSOLUTE COUNT 10.97 K/ L 1.78-5.38 H (BEAKER) (test code = 670) LYMPHOCYTES ABSOLUTE COUNT 0.28 K/ L 1.32-3.57 L (BEAKER) (test code = 414) MONOCYTES ABSOLUTE COUNT (BEAKER) 0.63 K/ L 0.30-0.82 (test code = 415) EOSINOPHILS ABSOLUTE COUNT 0.01 K/ L 0.04-0.54 L (BEAKER) (test code = 416) BASOPHILS ABSOLUTE COUNT (BEAKER) 0.02 K/ L 0.01-0.08 (test code = 417) IMMATURE GRANULOCYTES-RELATIVE 0.70 % 0.00-1.00 PERCENT (BEAKER) (test code = 2801) BLOOD GAS, [id number] 10:28:09 Test Item Value Reference Range Interpretation Comments PH VENOUS (BEAKER) (test code = 7.34 7.32-7.42 701) PCO2 VENOUS (BEAKER) (test code = 52 mm Hg 41-51 H 755) PO2 VENOUS (BEAKER) (test code = 33 mm Hg 25-40 702) O2 SATURATION VENOUS (BEAKER) 58.4 % 40.0-70.0 (test code = 703) HCO3 VENOUS (BEAKER) (test code = 28 mmol/L 21-29 705) BASE EXCESS VENOUS (BEAKER) (test 1.5 mmol/L -2.0-3.0 code = 704) PATIENT TEMPERATURE (BEAKER) (test 37.0 code = 1818) FIO2 (BEAKER) (test code = 1819) 21.0 XR CHEST 1 VIEW PORTABLE / [id number] 09:55:14 [facility] 1965 Sex: MCLINICAL HISTORY: FeverTECHNIQUE: 1 view of the chestCOMPARISON: NoneIMPRESSION:A right chest wall port terminates at the cavoatrial junction. There areno focal infiltrates or pleural effusions. The cardiomediastinalsilhouette is within normal limits for size. The visualized bones areintact.Electronically Signed By: Chencho Robertson08/02/2023 09:57 CDTWorkstation Name: [id number] 19:36:00 Test Item Value Reference Range Interpretation Comments POC glucose (test code 109 mg/dL 65-99 H [facility] Name: = [id number]) Abdi Traylor ID : [id number] able: No Action Neede d Lab Interpretation Abnormal (test code = 74495-1) [facility] [id number] 19:36:00 Test Item Value Reference Range Interpretation Comments POC glucose (test code 109 mg/dL 65-99 [facility]: = [id number]) Abdi Traylor ID : [id number] able: No Action Neede d Lab Interpretation Abnormal (test code = 40144-9) [facility] RBC, 1 [id number] 21:41:00 Test Item Value Reference Range Interpretation Comments Product name (test code Red Cells AS1 Leukored = 25) Irrad Unit number (test code [id number] = [id number]) Product code (test code P7039S33 = 3092) Dispense status (test Transfused code = 24) Blood expiration date (test code = 302) Blood type code (test 600 code = 308) Blood type (test code = A NEGATIVE 1314) Compatibility (test Compatible code = 6400) ZAID (test code = ZAID) [facility] RBC, 1 [id number] 21:41:00 Test Item Value Reference Range Interpretation Comments Product name (test code Red Cells AS1 Leukored = 25) Irrad Unit number (test code [id number] = [id number]) Product code (test code M3011F16 = 3092) Dispense status (test Transfused code = 24) Blood expiration date (test code = 302) Blood type code (test 600 code = 308) Blood type (test code = A NEGATIVE 1314) Compatibility (test Compatible code = 6400) ZAID (test code = ZAID) [facility]2023-09-13 19:44:00 Test Item Value Reference Range Interpretation Comments Urine culture Mixed dory Specimen isolate (test 10-4 col/cc InformationSpe cimen code = 13423-8) Source: [facility] Site: [facility]2023-09-13 19:44:00 Test Item Value Reference Range Interpretation Comments Urine culture Mixed dory Specimen isolate (test 10-4 col/cc InformationSpe cimen code = 12598-9) Source: [facility] Site: [facility] 12 [id number] 12:18:47 Test Item Value Reference Range Interpretation Comments Ventricular rate (test 102 code = 253) Atrial rate (test code 102 = 255) OR interval (test code 164 = 266) QRSD [...] for LVH, may be normal variant ( Neotsu product )-Septal infarct , age undetermined-Abnormal ECG-In automated comparison with ECG of 22-MAR-2023 16:26,-premature ventricular complexes are no longer present-T wave inversion more evident in Lateral leads- [facility] 12 [id number] 12:18:47 Test Item Value Reference Range Interpretation Comments Ventricular rate (test 102 code = 253) Atrial rate (test code 102 = 255) OR interval (test code 164 = 266) QRSD [...] for LVH, may be normal variant ( Neotsu product )-Septal infarct , age undetermined-Abnormal ECG-In automated comparison with ECG of 22-MAR-2023 16:26,-premature ventricular complexes are no longer present-T wave inversion more evident in Lateral leads- [facility] ED Preliminary Interpretation - Not an [id number] 02:43:49 Test Item Value Reference Range Interpretation Comments ZAID (test code = ZAID) Gume Singh MD 07/04/2023 8:22 [facility] ED Preliminary Interpretation - Not an Order Performed by: Libertad Mccarthy, NPAuthorized by: Gume Singh MD ECG reviewed by ED Physician in the absence of a blind teacher: yes Previous ECG: Previous ECG: Compared to current Comparison ECG info: 03/22/23Interpretation: Interpretation: abnormal Rate: ECG rate: 102 ECG rate assessment: tachycardic Rhythm: Rhythm: sinus tachycardia T waves: T waves: inverted Lab Interpretation Abnormal (test code = 08449-8) [facility] ED Preliminary Interpretation - Not an [id number] 02:43:49 Test Item Value Reference Range Interpretation Comments ZAID (test code = ZAID) Gume Singh MD 07/04/2023 8:22 [facility] ED Preliminary Interpretation - Not an Order Performed by: Libertad Mccarthy, NPAuthorized by: Gume Singh MD ECG reviewed by ED Physician in the absence of a blind teacher: yes Previous ECG: Previous ECG: Compared to current Comparison ECG info: 03/22/23Interpretation: Interpretation: abnormal Rate: ECG rate: 102 ECG rate assessment: tachycardic Rhythm: Rhythm: sinus tachycardia T waves: T waves: inverted Lab Interpretation Abnormal (test code = 32455-9) [facility] METABOLIC [id number] 03:57:00 Test Item Value Reference Range Interpretation [...] recommended for shayy for GFRby the N [facility].The GFR will not calculate i f the sex is unknown or if thepatient's ag e is <18 years. CREATININE (test 3.3 MG/DL 0.8-1.3 H code = CREAT) CALCIUM (test code 8.0 MG/DL 8.5-10.1 L = CA) RENAL FUNCTION [id number] 03:57:00 Test Item Value Reference Range Interpretation Comments ALBUMIN (test code = ALB) 1.8 G/DL 3.4-5.0 L PHOSPHOROUS (test code = PHOS) 2.9 MG/DL 2.5-4.9 N [id number] 03:57:00 Test Item Value Reference Range Interpretation Comments MAGNESIUM (test code = MAG) 1.8 MG/DL 1.8-2.4 N CBC W/AUTO [id number] 03:46:00 Test Item Value Reference Range Interpretation [...] NO DIFF/SCN CRITERIA = MDIFF) CBC W/AUTO [id number] 12:51:00 Test Item Value Reference Range Interpretation [...] NT WITH AUTO DIFFERENTI AL. BASIC METABOLIC [id number] 12:26:00 Test Item Value Reference Range Interpretation [...] 9.0 MG/DL 8.5-10.1 N = CA) URINALYSIS [id number] 10:41:00 Test Item Value Reference Range Interpretation [...] LEUU) Urine Specimen Type: Catheter (Other)UR SODIUM [id number] 10:41:00 Test Item Value Reference Range Interpretation [...] . Urine Specimen Type: Catheter (Other)UR CREATININE [id number] 10:41:00 Test Item Value Reference Range Interpretation Comments UR CREATININE RANDOM (test code = 89.8 MG/DL 30-125 N CREATU) Urine Specimen Type: Catheter (Other)UR SODIUM [id number] 10:41:00 Test Item Value Reference Range Interpretation Comments UR SODIUM RANDOM 55 MEQ/L The Referen ce Range and (test code = JACQUE) Method Per formance specificationsh ave not been established for this fluid. The test result should be correlated into the clinical context forinte rpretation. Urine Specimen Type: Catheter (Other)- US OTHER DX US [id number] 16:25:[facility] 1965 Sex: M Name: GENO PANDA [facility] : 1965 Age/S: 57 / M [address] Unit #: [id number] Loc: [place] [address] Phys: Mcihel Rdz MD Acct: [id number] Dis Date: Status: ADM IN PHONE #: [phone] Exam Date: 06/14/2023 1533 FAX #: Reason: RIGHT NEPHROSTOMY DUSTIN PLACEMENT EXAMS: CPT: [id number] US OTHER DX US PROCEDURE 87059 EXAMINATION: 1. RIGHT SIDED PERCUTANEOUS NEPHROSTOMY PLACEMENT 2.LEFT-SIDED PERCUTANEOUS NEPHROSTOMY EXCHANGE LOCATION: S17. HISTORY: Hydronephrosis [...] mGy. FLUOROSCOPY TIME: 4 minutes 51 seconds withtotal number of fluoroscopic images. ANTIBIOTICS: Yes. The patient was given Ceftriaxone 1 g IV. CONTRAST: 20 mL of Isovue. TECHNIQUE: The risks, benefits, and alternatives were discussed and informedconsent was obtained. Prior to beginning the procedure, [place] Protocol was used to confirm the patient's identity and planned procedure. Maximum sterile barriers including cap, mask, hand hygiene, sterile gloves, sterile gown, large sterile drape and cutaneous antisepsis were used. Left nephrostomy exchange: The skin surrounding the existing left nephrostomy catheter was sterilely prepped and draped. Under fluoroscopic guidance the catheter was exchanged over wire for a new 10 Serbian nephrostomycatheter with appropriate tip positioning in the renal [...] 1 Signed Report (CONTINUED) Name: GENO PRASAD [facility] : 1965 Age/S: 57 / M [address] [facility] Unit #: [id number] Loc: [place] [address] Phys: Michel Rdz MD Acct: [id number] Dis Date: Status: ADM IN PHONE #: [phone] Exam Date: 06/14/2023 9256 FAX #: Reason: RIGHT NEPHROSTOMY DUSTIN PLACEMENT EXAMS: CPT: [id number] US OTHER DX US PROCEDURE 24848 (Continued) A 21-gauge micropuncture needle was then used to access the lower pole calyx of the right kidney with appropriate needle tip positioning documented by ultrasound and fluoroscopy. Contrast injection demonstrated appropriate positioning. A guidewire was passed into the collecting system before dilating the tract to 8 Serbian. A 8 Serbian nephrostomy drainage catheter was then advanced over [...] appeared as slightly blood-tinged on the right andyellow on the left. IMPRESSION: Successful right-sided percutaneous nephrostomy placement and left-sided nephrostomy tube exchange. PLAN: The tubes should be flushed with saline 5 mL normal saline twice a day. at 1625 Reported and signed by:Seymour Sales M.D. CC: Michel Rdz MD; Seymour Sales MD Technologist: Effie Deleon Trnscb Date/Time: 06/14/2023 (1624) [email or web address] PAGE 2 Signed Report Name: GENO PRASAD [place] : 1965 Age/S: 57 / M [address] Unit #: [id number] Loc: [place] [address] Phys: Michel Rdz MD Acct: [id number] Dis Date: Status: ADM IN PHONE #: [phone] Exam Date: 06/14/2023 1533 FAX #:Reason: RIGHT NEPHROSTOMY DUSTIN PLACEMENT EXAMS: CPT: [id number] US OTHER DX US PROCEDURE 06057 (Continued) Orig Print D/T: S: 06/14/2023 (1622) Probe: PAGE 3 Signed Report- SP [facility] NEPH [id number] 16:25:[address] [facility] : 1965 Sex: M Name: Laura BOGGSGENO ORTIZ [facility] : 1965 Age/S: 57 / M [address] Unit #: [id number] Loc: [place] [address] Phys: Michel Rdz MD Acct: [id number] Dis Date: Status: ADM IN PHONE #: [phone] Exam Date: 06/14/2023 1530 FAX #: Reason: RENAL HYDRON EXAMS: CPT: [id number] [facility] NEPH CATH 62843 Fluoro Time: 291 DAP (Gy m2): Air Kerma (mGy): EXAMINATION: 1. RIGHT SIDED PERCUTANEOUS NEPHROSTOMY PLACEMENT 2. LEFT-SIDED PERCUTANEOUS NEPHROSTOMY EXCHANGE LOCATION: S17. 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 Colon cancer. SEDATION: Under my supervision, Versed and Fentanylwere administered intravenously for moderate sedation. Pulse oximetry, [...] was obtained. Prior to beginning the procedure, [place] Protocol was used to confirm the patient's identity and planned procedure. Maximum sterile barriers including cap, mask, hand hygiene, sterile gloves, sterile gown, large sterile drape and cutaneous antisepsis were used. Left nephrostomy exchange: The skin surrounding the existing left nephrostomy catheter was sterilely prepped and draped. Under fluoroscopic guidance the catheter was exchanged over wire for a new 10 Serbian nephrostomy catheter with appropriate tip positioning in [...] and infiltrated with lidocaine. PAGE 1 Signed Re port (CONTINUED) Name: GENO PRASAD : 1965 Age/S: 57 / M [address] Unit #: [id number] Loc: [place] [address] Phys: Michel Rdz MD Acct: [id number] Dis Date: Status: ADM IN PHONE #: [phone] Exam Date: 06/14/2023 1530 FAX #: Reason: RENAL HYDRON EXAMS: CPT: [id number] [facility] NEPH CATH 31398 Fluoro Time: 291 DAP (Gy m2): Air Kerma (mGy): (Continued) A 21-gauge micropuncture needle was then used to access the lower pole calyx of the right kidney with appropriate needle tip positioning documented by ultrasound and fluoroscopy. Contrast injection demonstrated appropriate positioning. A guidewire was passed into the collecting system before dilating the tract to 8 Serbian. A 8 Serbian nephrostomy drainage catheter was then advanced over [...] 30 milliliters. COMPLICATIONS: None. DISCHARGED TO: Inpatient unit.FINDINGS: Images from the procedure revealed moderate right-sided hydronephrosis. The urine appearedas slightly blood-tinged on the right and yellow on the left. IMPRESSION: Successful right-sided percutaneous nephrostomy placement and left-sided nephrostomy tube exchange. PLAN: The tubes should be flushed with saline 5 mL normal saline twice a day. Electronically Signed by Seymour Sales M.D. on 05/18 at 1625 Reported and signed by: Seymour Sales M.D. CC: Michel Rdz MD; Seymour Sales MD PAGE 2 Signed Report Name: GENO PRASAD : 1965 Age/S: 57 / M [address] [id number] Loc: [place] [address] Phys: Michel Rdz MD Acct: [id number] Dis Date: Status: ADM IN PHONE #: [phone] Exam Date: 06/14/2023 1530 FAX #: Reason: RENAL HYDRON EXAMS: CPT: [id number] [facility] NEPH CATH 40688 Fluoro Time: 291 DAP (Gy m2): Air Kerma (mGy): (Continued) Technologist: FELISA MUÑOZ Trnscb Date/Time: 06/14/2023 (6744) [email or web address] Orig Print D/T: S: 06/14/2023 (1356) PAGE 3 Signed Report- SP NEPH CATH [id number] 16:25:[address] [facility] : 1965 Sex: M Name: GENO PANDA [facility] : 1965 Age/S: 57 / M [address] Unit #: [id number] Loc: [place] [address] Phys: Michel Rdz MD Acct: [id number] Dis Date: Status: ADM IN PHONE #: [phone] Exam Date: 06/14/2023 1455 FAX #: Reason: RENAL HYDRON EXAMS: CPT: [id number] SP NEPH CATH EXCHANGE 95650 Fluoro Time: 33 DAP (Gy m2): Air Kerma (mGy): EXAMINATION: 1. RIGHT SIDED PERCUTANEOUSNEPHROSTOMY PLACEMENT 2. LEFT-SIDED PERCUTANEOUS NEPHROSTOMY EXCHANGE LOCATION: [...] was obtained. Prior to beginning the procedure, [place] Protocol wasused to confirm the patient's identity and planned procedure. Maximum sterile barriers including cap, mask, hand hygiene, sterile gloves, sterile gown, large sterile drape and cutaneous antisepsis wereused. Left nephrostomy exchange: The skin surrounding the existing left nephrostomy catheter was sterilely prepped and draped. Under fluoroscopic guidance the catheter was exchanged over wire for a new10 Serbian nephrostomy catheter with appropriate tip positioning in [...] 1 Signed Report (CONTINUED) Name: GENO PRASAD [place] : 1965 Age/S: 57 / M [address] [facility] Unit #: [id number] Loc: [place] [address] Phys: Michel Rdz MD Acct: [id number] Dis Date: Status: ADM IN PHONE #: [phone] Exam Date: 06/14/2023 8319 FAX #: Reason: RENAL HYDRON EXAMS:CPT: [id number] SP NEPH CATH EXCHANGE 29173 Fluoro Time: 33 DAP (Gy m2): Air Kerma (mGy): (Continued) A 21-gauge micropuncture needle was then used to access the lower pole calyx of the right kidney with appropriate needle tip positioning documented by ultrasound and fluoroscopy. Contrast injection demonstrated appropriate positioning. A guidewire was passed into the collecting system before dilating the tract to 8 Serbian. A 8 Serbian nephrostomy drainage catheter was then advanced over [...] mL normal saline twice a day. at 1479 Reported and signed by: Seymour Sales M.D. CC: Michel Rdz MD; Seymour Sales MD PAGE 2 Signed Report Name: GENO PRASAD [place] : 1965 Age/S: 57 / M [address] Unit #: [id number] Loc: [place] [address] Phys: Michel Rdz MD Acct: [id number] Dis Date: Status: ADM IN PHONE #: [phone] Exam Date: 06/14/2023 3192 FAX #: Reason: RENAL HYDRON EXAMS: CPT: [id number] SP NEPH CATH EXCHANGE 41409 Fluoro Time: 33 DAP (Gy m2): Air Kerma (mGy): (Continued) Technologist: FELISA MUÑOZ Trnscb Date/Time: 06/14/2023 (6337) [email or web address] Orig Print D/T: S: 06/14/2023 (4256) PAGE 3 Signed ReportCBC W/AUTO [id number] 06:01:00 Test Item Value Reference Range Interpretation [...] CONSISTA NT WITH AUTO DIFFERENTI AL. RBC [id number] 06:01:00 Test Item Value Reference Range Interpretation [...] LARGE PLATELET code = PLTMORPH) BASIC METABOLIC [id number] 04:05:00 Test Item Value Reference Range Interpretation [...] recommended for shayy for GFRby the N [facility].The GFR will not calculate i f the sex is unknown or if thepatient's ag e is <18 years. CREATININE (test 3.7 MG/DL 0.8-1.3 H code = CREAT) CALCIUM (test code 8.7 MG/DL 8.5-10.1 N = CA) PROTHROMBIN [id number] 14:51:00 Test Item Value Reference Range Interpretation [...] (to prevent recurrent infar ct). CBC W/AUTO [id number] 13:51:00 Test Item Value Reference Range Interpretation [...] DIFF REQUIRED NO DIFF/SCN CRITERIA SLIDE R ALEKSANDRW (test code = MDIFF) CONSISTA NT WITH AUTO DIFFERENTI AL. PROTHROMBIN [id number] 12:14:00 Test Item Value Reference Range Interpretation [...] (to prevent recurrent infar ct). THROMBOPLASTIN TIME [id number] 12:14:00 Test Item Value Reference Range Interpretation Comments THROMBOPLASTIN TIME PARTIAL 31.9 SECONDS 26-35 N (test code = PTT) BASIC METABOLIC [id number] 11:51:00 Test Item Value Reference Range Interpretation [...] the recommended for shayy for GFRby the [facility] for Adults.The GFR will not calculate i f the sex is unknown or if thepatient's ag e is <18 years. CREATININE (test 3.6 MG/DL 0.8-1.3 H code = CREAT) CALCIUM (test code 8.5 MG/DL 8.5-10.1 N = CA) HEPATIC FUNCTION [id number] 11:51:00 Test Item Value Reference Range Interpretation [...] 50-136 N code = ALKP) CBC W/O [id number] 11:07:00 Test Item Value Reference Range Interpretation [...] 8.80 fL 7.0-9.6 N MPV) BASIC METABOLIC [id number] 08:24:00 Test Item Value Reference Range Interpretation [...] 8.7 MG/DL 8.5-10.1 N = CA) PROTHROMBIN [id number] 08:19:00 Test Item Value Reference Range Interpretation [...] infar ct). - CT ABD PELVIS W/O [id number] 16:44:[address] [address] : 1965 Sex: M Name: GENO PANDA [facility] : 1965 Age/S: 57 / M [address] Unit #: [id number] Loc:[place] [address] Phys: Lalo Ruiz MD Acct: [id number] Dis Date: Status: REG CLI PHONE #: [phone] Exam Date: 04/13/2023 1501 FAX #: Reason: HYDRONEPHROSIS DUE TO OBSTRUTION OF URETER EXAMS: CPT: [id number] CT ABD PELVIS W/O CONT 65929 EXAMINATION: - CT ABD PELVIS W/O CONT. LOCATION: B2. HISTORY: HYDRONEPHROSIS DUE TO OBSTRUTION OF URETER. COMPARISON: Head/CT dated 12/21/2021. TECHNIQUE: CT abdomen and pelvis was performed without the use of IV contrast. Sagittal and coronal reconstructed imageswere available for review. This exam was performed [...] size is normal. Abdomen and pelvis: Moderate righthydroureteronephrosis is present to the level of the urinary bladder. No obstructing stone is identified. Left nephrostomy catheter is in place without hydronephrosis. 1.2 cm left renal cyst is noted. T he noncontrast appearance of the liver, gallbladder, pancreas, [...] in the spine. No acute osseous PAGE 1Signed Report (CONTINUED) Name: GENO PRASAD : 1965 Age/S: 57 / M [address] Unit #: [id number] Loc: [place] [address] Phys: Lalo Ruiz MD Acct: [id number] Dis Date: Status: REG CLI PHONE #: [phone] Exam Date: 04/13/2023 1501 FAX #: Reason: HYDRONEPHROSIS DUE TO OBSTRUTION OF URETER EXAMS: CPT: [id number] CT ABD PELVIS W/O CONT 99567 (Continued) abnormality is identified. No aggressive lytic or blastic lesion is seen. IMPRESSION: Moderate right hydroureteronephrosis to the level of the urinary bladder. Left percutaneous nephrostomy catheter in place without hyd ronephrosis. Significant urinary bladder wall thickening with mild [...] Erin CTDI: DLP: Trnscb Date/Time: 04/13/2023 (1644) t.[email or web address].PR7 Orig Print D/T:S: 04/13/2023 (4469) PAGE 2 Signed ReportPrepare RBC, 2 [id number] 16:16:00 Test Item Value Reference Range Interpretation Comments Product name (test code Red Cells AS1 Leukored = 25) Irrad Unit number (test code [id number] = [id number]) Product code (test code V1224G48 = 3092) Dispense status (test Transfused code = 24) Blood expiration date (test code = 302) Blood type code (test 6200 code = 308) Blood type (test code = A POSITIVE 1314) Compatibility (test Compatible code = 6400) [facility], 2 [id number] 16:16:00 Test Item Value Reference Range Interpretation Comments Product name (test code Red Cells AS1 Leukored = 25) Irrad Unit number (test code [id number] = [id number]) Product code (test code D7550X14 = 3092) Dispense status (test Transfused code = 24) Blood expiration date (test code = 302) Blood type code (test 6200 code = 308) Blood type (test code = A POSITIVE 1314) Compatibility (test Compatible code = 6400) [facility], 2 [id number] 16:16:00 Test Item Value Reference Range Interpretation Comments Product name (test code Red Cells AS1 Leukored = 25) Irrad Unit number (test code [id number] = 7748928) Product code (test code O9469X88 = 3092) Dispense status (test Transfused code = 24) Blood expiration date (test code = 302) Blood type code (test 6200 code = 308) Blood type (test code = A POSITIVE 1314) Compatibility (test Compatible code = 6400) [facility], 2 [id number] 16:16:00 Test Item Value Reference Range Interpretation Comments Product name (test code Red Cells AS1 Leukored = 25) Irrad Unit number (test code [id number] = 1298301) Product code (test code G9670X55 = 3092) Dispense status (test Transfused code = 24) Blood expiration date (test code = 302) Blood type code (test 6200 code = 308) Blood type (test code = A POSITIVE 1314) Compatibility (test Compatible code = 6400) [facility], 2 [id number] 16:16:00 Test Item Value Reference Range Interpretation Comments Product name (test code Red Cells AS1 Leukored = 25) Irrad Unit number (test code [id number] = [id number]) Product code (test code S4479S40 = 3092) Dispense status (test Transfused code = 24) Blood expiration date (test code = 302) Blood type code (test 6200 code = 308) Blood type (test code = A POSITIVE 1314) Compatibility (test Compatible code = 6400) [facility], 2 [id number] 16:16:00 Test Item Value Reference Range Interpretation Comments Product name (test code Red Cells AS1 Leukored = 25) Irrad Unit number (test code [id number] = 6244089) Product code (test code L4873D57 = 3092) Dispense status (test Transfused code = 24) Blood expiration date (test code = 302) Blood type code (test 6200 code = 308) Blood type (test code = A POSITIVE 1314) Compatibility (test Compatible code = 6400) [facility] 2 [id number] 16:16:00 Test Item Value Reference Range Interpretation Comments Product name (test code Red Cells AS1 Leukored = 25) Irrad Unit number (test code [id number] = 8110888) Product code (test code Z3466U53 = 3092) Dispense status (test Transfused code = 24) Blood expiration date (test code = 302) Blood type code (test 6200 code = 308) Blood type (test code = A POSITIVE 1314) Compatibility (test Compatible code = 6400) [facility] 12 [id number] 03:42:02 Test Item Value Reference Range Interpretation Comments Ventricular rate (test 121 code = 253) Atrial rate (test code 121 = 255) OR interval (test code 156 = 266) QRSD [...] previous ECGs available-Electronical ly Signed By Bentley Liu MD ([id number]) on 03/22/2023 10:41:52 PM [place] [address] [id number] 03:42:02 Test Item Value Reference Range Interpretation Comments Ventricular rate (test 121 code = 253) Atrial rate (test code 121 = 255) OR interval (test code 156 = 266) QRSD [...] previous ECGs available-Electronical ly Signed By Bentley Liu MD ([id number]) on 03/22/2023 10:41:52 PM [facility] 12 [id number] 03:42:02 Test Item Value Reference Range Interpretation Comments Ventricular rate (test 121 code = 253) Atrial rate (test code 121 = 255) OR interval (test code 156 = 266) QRSD [...] previous ECGs available-Electronical ly Signed By Bentley Liu MD ([id number]) on 03/22/2023 10:41:52 PM [address]2023-06-08 03:42:02 Test Item Value Reference Range Interpretation Comments Ventricular rate (test 121 code = 253) Atrial rate (test code 121 = 255) OR interval (test code 156 = 266) QRSD [...] ECGs available-Electronical ly Signed By Kyaw PRINCE Aporosemary ([id number]) on 03/22/2023 10:41:52 PM [address]2023-06-08 03:42:02 Test Item Value Reference Range Interpretation Comments Ventricular rate (test 121 code = 253) Atrial rate (test code 121 = 255) OR interval (test code 156 = 266) QRSD [...] for LVH, may be normal variant ( Neotsu product )-T wave abnormality, consider lateral ischemia-Abnormal ECG-No previous ECGs available-Electronical ly Signed By Kyaw PRINCE Apoor ([id number]) on 03/22/2023 10:41:52 PM [address]2023-06-08 03:42:02 Test Item Value Reference Range Interpretation Comments Ventricular rate (test 121 code = 253) Atrial rate (test code 121 = 255) OR interval (test code 156 = 266) QRSD [...] for LVH, may be normal variant ( Neotsu product )-T wave abnormality, consider lateral ischemia-Abnormal ECG-No previous ECGs available-Electronical ly Signed By Kyaw PRINCE Apoor ([id number]) on 03/22/2023 10:41:52 PM [facility] 12 [id number] 03:42:02 Test Item Value Reference Range Interpretation Comments Ventricular rate (test 121 code = 253) Atrial rate (test code 121 = 255) OR interval (test code 156 = 266) QRSD [...] previous ECGs available-Electronical ly Signed By Bentley Liu MD ([id number]) on 03/22/2023 10:41:52 PM [facility] VENOUS BLOOD [id number] 21:59:00 Test Item Value Reference Range Interpretation Comments POC VENOUS BLOOD 7.340 pH units 7.26-7.43 N GAS PH (test code = POCPHV) POC VENOUS BLOOD 54.2 mmHg e 35.0-45.0 H GAS PCO2 (test code = JSRCRQ3W) POC VENOUS BLOOD 38.8 mmHg e 80.0-100.0 LL GAS PO2 (test code = XBTOH6L) POC TCO2 VENOUS 28.6 MMOL/L e 24.0-30.0 N (test code = NTKEEU9Z) POC HCO3 VENOUS 29.2 MMOL/L e 22.0-26.0 H (test code = UTZJAF6V) POC BASE EXCESS 2.7 MMOL/L e See_Comment N [Automated VENOUS (test code = message] The system POCBEV) which generated this result transmitted reference range : -3.0 to 3.0. Th e reference range was not used to interpret this result as normal/abnormal . POC O2 SATURATION 69 % e 95-100 L VENOUS (test code = CMUL1QF) POC SAMPLE SOURCE Venous Descript Specimen (test code = POCSAMPLE) CBC W/AUTO [id number] 10:20:00 Test Item Value Reference Range Interpretation [...] NO DIFF/SCN CRITERIA = MDIFF) BASIC METABOLIC [id number] 10:12:00 Test Item Value Reference Range Interpretation [...] recommended for shayy for GFRby the N [facility].The GFR will not calculate i f the sex is unknown or if thepatient's ag e is <18 years. CREATININE (test 1.6 MG/DL 0.8-1.3 H code = CREAT) CALCIUM (test code 9.4 MG/DL 8.5-10.1 N = CA) PROTHROMBIN [id number] 09:00:00 Test Item Value Reference Range Interpretation [...] in Respiratory specimen by YVROSE with probe [id number] 11:43:33 Test Item Value Reference Range Interpretation Comments SARS-CoV-2 (COVID-19) RNA Not detected [Presence] in Respiratory specimen by YVROSE with probe detection (test code = 11857-5) Whether patient is employed in a Unknown healthcare setting (test code = 22357-3) Whether the patient has symptoms Unknown related to condition of interest (test code = 85677-5) Whether the patient was Unknown hospitalized for condition of interest (test code = 63293-2) Whether the patient was admitted Unknown to intensive care unit (ICU) for condition of interest (test code = 97836-4) Whether patient resides in a Unknown congregate care setting (test code = 06209-7) status (test code = Unknown 58457-5) Date and time of symptom onset Unknown (test code = 35222-2) BERNARDO AIKEN [facility] [id number] 18:02:00 Test Item Value Reference Range Interpretation Comments Urine culture (test SEE COMMENT Bacteriu rony screen code = 8120180) negative. [facility] [id number] 18:02:00 Test Item Value Reference Range Interpretation Comments Urine culture (test SEE COMMENT Bacteriu rony screen code = 2092731) negative. [facility] [id number] 18:02:00 Test Item Value Reference Range Interpretation Comments Urine culture (test SEE COMMENT Bacteriu rony screen code = 5007015) negative. [facility] [id number] 18:02:00 Test Item Value Reference Range Interpretation Comments Urine culture (test SEE COMMENT Bacteriu rony screen code = 3798767) negative. [facility]- PET/CT TUMOR SK BS [id number] 14:28:00 [facility] : 1965 Sex: M Patient Name: GENO PRASAD Unit No: [id number] EXAMS: CPT CODE: [id number] PET/CT TUMOR SK BS MIDTH 53170 EXAMINATION: - PET/CT TUMOR SK BS MIDTH [...] the drain follows the course of the [facility] NAME: GENO PRASAD [id number] [facility] [address] PHYS: [place] [address] : 1965 AGE: 56 SEX: M LOC: Z.ZNUC PHONE #: [phone] EXAM DATE: 12/21/2021 STATUS: REG CLI FAX #: [phone] RADIOLOGY NO: PAGE 1 Signed Report (CONTINUED) Patient Name: GENO PRASAD Unit No: [id number] EXAMS: CPT CODE: [id number] PET/CT TUMOR SK BS MIDTH 68436 <Continued> sigmoid colon. Uptake in the more [...] (1428) t.SDR.AG38 Orig Print D/T: S: 12/21/2021 (6329) [facility] [facility] NAME: GENO PRASAD [address] [address] PHYS: [place] [address] : 1965 AGE: 56 SEX: M LOC: Z.ZNUC PHONE #: [phone] EXAM DATE: 12/21/2021 STATUS: REG CLI FAX #: [phone] RADIOLOGY NO: PAGE 2 Signed [id number] 09:50:00 Test Item Value Reference Range Interpretation Comments GLUCOSE (test code = GLU) 98 MG/DL 79-105 N Comments to Product Marketing Programs Manager: FOR PETIs this a LINE draw? N- PET[facility]CT [facility]OR SK [id number] 13:41:00 [facility] : 1965 Sex: M Patient Name: GENO PRASAD Unit No: [id number] EXAMS: CPT CODE: [id number] PET/CT TUMOR SK MIDTH 34741 EXAM: PET/CT scan INDICATION: MALIGNANT NEOPLASM OF RECTUM COMPARISON: None at this time LOCATION: [facility] TECHNIQUE: Approximately 60 minutes following the [...] spine without and with contrast is recommended. [facility] [facility] NAME: GENO PRASAD [address] [facility] [address] PHYS: [place] [address] : 1965 AGE: 56 SEX: M LOC: DayronZNUC PHONE #: [phone] EXAM DATE: 09/08/2021 STATUS: DEP CLI FAX #: [phone] RADIOLOGY NO: PAGE 1 Signed Report (CONTINUED) Patient Name: GENO PRASAD Unit No: [id number] EXAMS: CPT CODE: [id number] PET/CT TUMOR SK BS MIDTH 55549 <Continued> There are small lymph nodes in [...] (1341) t.SDR.PMT Orig Print D/T: S: 09/10/2021 (5264) [facility] [facility] NAME: GENO PRASAD [address] [address] PHYS: [place] [address] : 1965 AGE: 56 SEX: M LOC: HANNAH PHONE #: [phone] EXAM DATE: 09/08/2021 [facility] #: [phone] ADIOLOGY NO: PAGE 2 Signed [id number] 09:44:00 Test Item Value Reference Range Interpretation Comments GLUCOSE (test code = GLU) 86 MG/DL 79-105 N SARS-CoV-2 (COVID-19) RNA [Presence] in Respiratory specimen by YVROSE with probe [id number] 18:54:41 Test Item Value Reference Range Interpretation Comments SARS-CoV-2 (COVID-19) RNA Not detected Not-Detected [Presence] in Respiratory specimen by YVROSE with probe detection (test code = 69248-6) Whether patient is employed in a healthcare setting (test code = 03304-9) Whether the patient has symptoms related to condition of interest (test code = 11362-7) Patient was hospitalized because of this condition (test code = 02618-5) Whether the patient was admitted to intensive care unit (ICU) for condition of interest (test code = 86970-1) Whether patient resides in a congregate care setting (test code = 61488-4) status (test code = 64513-3) BERNARDO SIMPSONRS-CoV-2 (COVID-19) RNA [Presence] in Respiratory specimen by YVROSE with probe [id number] 16:30:19 Test Item Value Reference Range Interpretation Comments SARS-CoV-2 (COVID-19) RNA Not detected Not-Detected [Presence] in Respiratory specimen by YVROSE with probe detection (test code = 64232-8) Whether patient is employed in a healthcare setting (test code = 59200-5) Whether the patient has symptoms related to condition of interest (test code = 90853-6) Patient was hospitalized because of this condition (test code = 95432-3) Whether the patient was admitted to intensive care unit (ICU) for condition of interest (test code = 92302-0) Whether patient resides in a congregate care setting (test code = 16222-1) BERNARDO WAITE"
[2023-08-23] MEDS ORDERED: FAMOTIDINE 20 MG/2 ML VIAL IV ONE (00:22)
[2023-08-23] MEDS ORDERED: HYDROMORPHONE HCL 1 MG/ML INJ ONE ×3 (00:22→06:59)
[2023-08-23] MEDS ORDERED: ONDANSETRON 4 MG/2 ML VIAL ONE ×2 (00:22→05:40)
[2023-08-23] MEDS ORDERED: NA CHLORIDE 0.9% 1,000 ML ONE ×2 (00:22→09:28)
[2023-08-23 01:25] LABS: Protime INR 1.15
[2023-08-23 01:26] LABS: Absolute Lymphocytes (CBC) 0.6 K/uL (0.7-4.9); MCV 79.2 fL (80-100); MPV 6.8 fL (7.6-11.3); Platelets 446 thou/uL (152-406); RBC Red Blood Cell Count 2.91 M/uL (4.33-5.43)
[2023-08-23] MEDS ORDERED: CEFTRIAXONE 1000 MG/VIAL ONE (02:09)
[2023-08-23 02:32] LABS: AST/SGOT 13 U/L (15-37); Albumin 1.7 g/dL (3.4-5.0); Alkaline Phosphatase 70 U/L (45-117); BUN Blood Urea Nitrogen 28 mg/dL (7-18); Bicarbonate 26 mEq/L (21-32); Bilirubin Total 0.2 mg/dL (0.2-1.0); Glomerular Filtration Rate 32 ml/min (=/>90); Glucose Level 147 mg/dL (74-106); Lipase 17 U/L (13-75); Magnesium 1.4 mg/dL (1.6-2.4); NT PRO-BNP 5007 pg/mL (<125); Potassium 4.5 mEq/L (3.5-5.1); Protein, Total 6.6 g/dL (6.4-8.2); Sodium Level 136 mEq/L (136-145); Troponin High Sensitivity 15.3 pg/mL (<58.9)
[2023-08-23 02:35] LABS: ALT/SGPT < 6 U/L (16-61); Bilirubin Direct < 0.1 mg/dL (0-0.2); Bilirubin Indirect, Calculated ND mg/dL (0.2-0.8)
[2023-08-23 02:55] LABS: Anisocytosis 2+; Blood Morphology Comment NOTED (NOT SEEN); Hypochromasia 1+; Platelet Estimate ADEQ; White Blood Cell Scan OK (OK)
--- NOTE | 2023-08-23 04:03 | ER ---
Nurse's Notes [facility] Name: Edwin Young Age: 58 yrs Sex: Male : 1965 Arrival Date: 08/22/2023 Time: 23:58 Bed 20 Private MD: Diagnosis: Malignant neoplasm of overlapping sites of rectum, anus and anal canal;Anemia, unspecified;Anemia in neoplastic disease;Acute cystitis;UTI/ Urinary tract infection, site not specified;Unspecified kidney failure-chronic;Abdominal pain, Generalized-colostomy x 2, bilateral neprostomy tubes Presentation: 08/23 00:01 Chief complaint: EMS states: called out for rectal and abdominal pain. Coronavirus as6 screen: At this time, the client does not indicate any symptoms associated with coronavirus-19. Ebola Screen: No symptoms or risks identified at this time. Initial Sepsis Screen: Does the patient meet any 2 criteria? No. Patient's initial sepsis screen is negative. Does the patient have a suspected source of infection? No. Patient's initial sepsis screen is negative. Risk Assessment: Do you want to hurt yourself or someone else? Patient reports no desire to harm self or others. Onset of symptoms was August 20, 2023. 00:01 Acuity: JASWINDER 2 as6 00:01 Method Of Arrival: EMS: [facility] as6 Historical: - Allergies: 00:00 No Known Allergies; as6 - PMHx: 00:00 CHEMO; CHF; Gout; Hypertension; colon cancer; as6 - PSHx: 00:00 Colostomy; L nephrostomy; as6 - Immunization history:: Adult Immunizations up to date. - Social history:: Smoking status: Patient denies any tobacco usage or history of. Screenin:02 [facility] ED Fall Risk Assessment (Adult) Score/Fall Risk Level 0 - 2 = Low Risk. Abuse as6 screen: Denies threats or abuse. Denies injuries from another. Nutritional screening: No deficits noted. Tuberculosis screening: No symptoms or risk factors identified. Assessment: 00:02 General: Appears uncomfortable, Behavior is calm, cooperative. Pain: Complains of pain as6 in suprapubic area, right lower quadrant, left lower quadrant and pelvis. Neuro: Level of Consciousness is awake, alert, obeys commands, Oriented to person, place, time, situation. Cardiovascular: Capillary refill < 3 seconds Patient's skin is warm and dry. Respiratory: Respiratory effort is even, unlabored, Respiratory pattern is regular, symmetrical. GI: Colostomy site Ileostomy site is clean and dry. Ostomy appliance is intact. Reports lower abdominal pain, cramping. : nephrostomy. EENT: No deficits noted. No signs and/or symptoms were reported regarding the EENT system. Derm: Skin is intact. Musculoskeletal: Circulation, motion, and sensation intact. 04:00 Reassessment: Patient is alert, oriented x 3, equal unlabored respirations, skin jj7 warm/dry/pink. 05:40 Reassessment: PT REFUSING VOGEL. STATES IT HURTS AND HE DOES NOT WANT IT. DR BOOGIE jj7 INFORMED. CHUYITA STATES TO USE VISCOUS LIDOCAINE AND DO AN IN AND OUT CATH. 06:00 Reassessment: Patient is alert, oriented x 3, equal unlabored respirations, skin jj7 warm/dry/pink. 07:00 Reassessment: PT STARTED IN [facility] BY PREVIOUS RN. SEE [facility] DOCUMENTATION. db Vital Signs: 00:00 BP 124 / 82; Pulse 128; Resp 18 S; Temp 98.2(TE); Pulse Ox 100% on R/A; Weight 58.97 kg as6 (R); Height 6 ft. 2 in. (R); Pain 10/10; 01:05 BP 113 / 81; Pulse 110; Resp 11 S; Pulse Ox 98% on R/A; as6 02:05 BP 118 / 85; Pulse 108; Resp 16 S; Pulse Ox 99% on R/A; as6 02:55 BP 96 / 74; Pulse 109; Resp 16 S; Pulse Ox 97% on R/A; as6 04:00 BP 91 / 66; Pulse 103; Resp 18; Pulse Ox 99% ; jj7 05:00 BP 113 / 85; Pulse 102; Resp 20; Pulse Ox 99% ; jj7 06:00 BP 109 / 79; Pulse 101; Resp 19; Pulse Ox 100% ; jj7 07:00 BP 106 / 81; Pulse 105; Resp 14; Temp 98.4(O); Pulse Ox 100% ; db 00:00 Body Mass Index 16.69 (58.97 kg, 187.96 cm) as6 00:00 Pain Scale: Adult as6 ED Course: 00:00 Patient arrived in ED. as6 00:00 Arm band placed on. as6 00:02 Triage completed. as6 00:02 Bed in low position. Call light in reach. Side rails up X2. as6 00:03 Steven Boogie MD is Attending Physician. sara 00:04 Rudy Tomas, RN is Primary Nurse. as6 00:20 XRAY Chest (1 view) In Process Unspecified. EDMS 01:00 Accessed Port-a-Cath. using accessed w/ # 20 Sanchez needle, ,sterile technique, per [facility] protocol. Clean \T\ dry. Dressing intact. Good blood return. Flushes easily. 01:59 CT Abd/Pelvis - Without Contrast In Process Unspecified. EDMS 02:05 Consent for blood and/or blood product transfusion explained by staff, explained by [facility] physician, signed by patient. 03:34 Initiated transfer with [facility] at [facility]. rv1 03:42 [facility] declined due to capacity. rv1 03:56 Roger Crisostomo MD is Hospitalizing Provider. sara 07:00 Provided Education on: Blood Transfusion, ADMISSION. db 07:00 No provider procedures requiring assistance completed. Patient admitted, IV remains in db place. Administered Medications: 01:04 Drug: NS 0.9% IV 1000 ml IV at 1 bolus Per protocol; 1000 mL bolus Route: IV; Rate: 1 as6 bolus; Site: Port-a-cath; 01:04 Drug: HYDROmorphone IVP 1 mg IVP once Route: IVP; Site: Port-a-cath; as6 01:04 Drug: Ondansetron IVP 4 mg IVP once; over 2 minutes Route: IVP; Site: Port-a-cath; as6 01:04 Drug: Famotidine IVP 20 mg IVP once; dilute with 10 mL 0.9% NaCl; give over 2 minutes as6 Route: IVP; Site: Port-a-cath; 02:04 Drug: Rocephin IV 1 grams IV at per protocol once; Given slow IV push per pharmacy as6 instructions Route: IV; Rate: per protocol; Site: Port-a-cath; 02:04 Drug: HYDROmorphone IVP 1 mg IVP once Route: IVP; Site: Port-a-cath; as6 05:42 Drug: Meropenem IV 1 grams IV at per protocol once; (mix in NS 100 mL) Route: IV; Rate: jj7 per protocol; Site: Port-a-cath; 06:15 Follow up: IV Status: Completed infusion j 05:43 Drug: HYDROmorphone IVP 0.5 mg IVP once Route: IVP; Site: Port-a-cath; jj7 06:15 Follow up: Response: Pain is decreased j 05:43 Drug: Ondansetron IVP 4 mg IVP once; over 2 minutes Route: IVP; Site: Port-a-cath; jj7 06:15 Follow up: Response: No adverse reaction jj7 06:10 Drug: Viscous Lidocaine Mucous Membrane Liquid (4 %) 10 ml Mucous Membrane once {Note: jj7 INSERTED IN PENIS.} Route: Mucous Membrane; 06:53 Drug: HYDROmorphone IVP 1 mg IVP once Route: IVP; Site: Port-a-cath; jj7 07:38 Follow up: Response: No adverse reaction; Pain is decreased db Medication: 00:02 VIS not applicable for this client. as6 Outcome: 04:03 Decision to Hospitalize by Provider. sara 07:00 Admitted to ER Hold. Please see [facility] for further documentation. db 07:00 Condition: stable 07:00 Instructed on the need for admit, 17:41 Patient left the ED. iw Signatures: Dispatcher [employer] Steven Walker MD MD cha Williams, Irene, RN RN iw Rudy Tomas RN RN as6 Sweta Albert RN RN jjIrene Mcleod RN RN db Villegas, Rebecca rv1 Corrections: (The following items were deleted from the chart) 06:23 05:30 Reassessment: tamir jj7
--- NOTE | 2023-08-23 04:03 | EDPHYS ---
Physician Documentation [facility] Name: Edwin Young Age: 58 yrs Sex: Male : 1965 Arrival Date: 08/22/2023 Time: 23:58 Bed 20 Private MD: ED Physician Steven Reeves HPI: 08/23 00:16 This 58 yrs old Black Male presents to ER via EMS with complaints of abdominal pain, hx sara colostomy, ileostomy, bilateral neprostomy tubes. 00:16 The patient presents with abdominal pain in the lower abdomen, abdominal distention in sara the lower abdomen. Onset: The symptoms/episode began/occurred 3 day(s) ago. The symptoms do not radiate. Associated signs and symptoms: Pertinent positives: nausea. The symptoms are described as constant, crampy. Modifying factors: The symptoms are alleviated by nothing, the symptoms are aggravated by movement, touching the area. Severity of pain: At its worst the pain was moderate severe in the emergency department the pain is unchanged. The patient has experienced similar episodes in the past, a few times. Historical: - Allergies: 00:00 No Known Allergies; as6 - PMHx: 00:00 CHEMO; CHF; Gout; Hypertension; colon cancer; as6 - PSHx: 00:00 Colostomy; L nephrostomy; as6 - Immunization history:: Adult Immunizations up to date. - Social history:: Smoking status: Patient denies any tobacco usage or history of. ROS: 00:19 Constitutional: Negative for fever, chills, and weight loss, Eyes: Negative for injury, sara pain, redness, and discharge, ENT: Negative for injury, pain, and discharge, Neck: Negative for injury, pain, and swelling, Cardiovascular: Negative for chest pain, palpitations, and edema, Respiratory: Negative for shortness of breath, cough, wheezing, and pleuritic chest pain, Back: Negative for injury and pain, : Negative for injury, bleeding, discharge, and swelling, MS/Extremity: Negative for injury and deformity, Skin: Negative for injury, rash, and discoloration, Neuro: Negative for headache, weakness, numbness, tingling, and seizure, Psych: Negative for depression, anxiety, suicide ideation, homicidal ideation, and hallucinations, Allergy/Immunology: Negative for hives, rash, and allergies, Endocrine: Negative for neck swelling, polydipsia, polyuria, polyphagia, and marked weight changes, Hematologic/Lymphatic: Negative for swollen nodes, abnormal bleeding, and unusual bruising, 00:19 Abdomen/GI: Positive for abdominal pain, of the right upper quadrant, left upper quadrant, right lower quadrant and left lower quadrant, Exam: 00:19 Constitutional: This is a well developed, well nourished patient who is awake, alert, sara and in no acute distress. Head/Face: Normocephalic, atraumatic. Eyes: Pupils equal round and reactive to light, extra-ocular motions intact. Lids and lashes normal. Conjunctiva and sclera are non-icteric and not injected. Cornea within normal limits. Periorbital areas with no swelling, redness, or edema. ENT: Nares patent. No nasal discharge, no septal abnormalities noted. Tympanic membranes are normal and external auditory canals are clear. Oropharynx with no redness, swelling, or masses, exudates, or evidence of obstruction, uvula midline. Mucous membranes moist. Neck: Trachea midline, no thyromegaly or masses palpated, and no cervical lymphadenopathy. Supple, full range of motion without nuchal rigidity, or vertebral point tenderness. No Meningismus. Chest/axilla: Normal chest wall appearance and motion. Nontender with no deformity. No lesions are appreciated. Respiratory: Lungs have equal breath sounds bilaterally, clear to auscultation and percussion. No rales, rhonchi or wheezes noted. No increased work of breathing, no retractions or nasal flaring. Back: No spinal tenderness. No costovertebral tenderness. Full range of motion. Male : Normal genitalia with no discharge or lesions. Skin: Warm, dry with normal turgor. Normal color with no rashes, no lesions, and no evidence of cellulitis. MS/ Extremity: Pulses equal, no cyanosis. Neurovascular intact. Full, normal range of motion. Neuro: Awake and alert, GCS 15, oriented to person, place, time, and situation. Cranial nerves II-XII grossly intact. Motor strength 5/5 in all extremities. Sensory grossly intact. Cerebellar exam normal. Normal gait. Psych: Awake, alert, with orientation to person, place and time. Behavior, mood, and affect are within normal limits. 00:19 Cardiovascular: Rate: tachycardic, actual rate is 128 bpm, Rhythm: regular, Heart sounds: normal, Edema: is not appreciated, JVD: is not appreciated, 00:19 Respiratory: the patient does not display signs of respiratory distress, Respirations: normal, no acute changes, Breath sounds: are clear throughout, no bronchial sounds, no decreased breath sounds, no rales, rhonchi, no stridor, no wheezing, Respiratory rate: 128 00:19 Musculoskeletal/extremity: ROM: full active range of motion, full passive range of motion, Circulation is intact in all extremities. Compartment Syndrome exam of affected extremity: is normal. Weight bearing: able to fully bear weight, without difficulty, Tendon exam: DVT Exam: No signs of deep vein thrombosis. no pain, no swelling, no tenderness, negative Homans' sign noted on exam, no appreciated bluish discoloration, no erythema, no increased warmth, 00:26 ECG was reviewed by the Attending Physician. sara Vital Signs: 00:00 BP 124 / 82; Pulse 128; Resp 18 S; Temp 98.2(TE); Pulse Ox 100% on R/A; Weight 58.97 kg as6 (R); Height 6 ft. 2 in. (R); Pain 10/10; 01:05 BP 113 / 81; Pulse 110; Resp 11 S; Pulse Ox 98% on R/A; as6 02:05 BP 118 / 85; Pulse 108; Resp 16 S; Pulse Ox 99% on R/A; as6 02:55 BP 96 / 74; Pulse 109; Resp 16 S; Pulse Ox 97% on R/A; as6 04:00 BP 91 / 66; Pulse 103; Resp 18; Pulse Ox 99% ; jj7 05:00 BP 113 / 85; Pulse 102; Resp 20; Pulse Ox 99% ; jj7 06:00 BP 109 / 79; Pulse 101; Resp 19; Pulse Ox 100% ; jj7 07:00 BP 106 / 81; Pulse 105; Resp 14; Temp 98.4(O); Pulse Ox 100% ; db 00:00 Body Mass Index 16.69 (58.97 kg, 187.96 cm) as6 00:00 Pain Scale: Adult as6 MDM: 00:03 Patient medically screened. sara 00:21 Differential diagnosis: bowel obstruction, diverticulitis, gastritis, non-specific abd sara pain, pancreatitis, Peptic Ulcer Disease, Pyelonephritis, Ureterolithiasis, urinary tract infection. Data reviewed: vital signs, nurses notes, lab test result(s), EKG, radiologic studies, CT scan, plain films. Data reviewed: EMS record. Consideration of Admission/Observation Escalation of care including admission/observation considered. I considered the following discharge prescriptions or medication management in the emergency department Medications were administered in the Emergency Department. See MAR. Independent interpretation of the following test(s) in the Emergency Department EKG: See my EKG interpretation above. Test considered but Not performed: Ultrasound no abd usg. Historians other than the Patient: EMS: ems well informed. Care significantly affected by the following chronic conditions: Hypertension, Congestive Heart Failure, Cancer, gout. Counseling: I had a detailed discussion with the patient and/or guardian regarding the historical points, exam findings, and any diagnostic results supporting the discharge/admit diagnosis, lab results, radiology results. 08/23 00:06 Order name: Basic Metabolic Panel; Complete Time: 02:42 [facility] 08/23 00:06 Order name: CBC with Diff; Complete Time: 03:55 [facility] 08/23 00:06 Order name: LFT's; Complete Time: 02:42 [facility] 08/23 00:06 Order name: Magnesium; Complete Time: 02:42 [facility] 08/23 00:06 Order name: NT PRO-BNP; Complete Time: 02:42 [facility] 08/23 00:06 Order name: PT-INR; Complete Time: 01:28 [facility] 08/23 00:06 Order name: Troponin HS; Complete Time: 02:42 [facility] 08/23 00:06 Order name: Lipase; Complete Time: 02:42 [facility] 08/23 00:06 Order name: Urinalysis w/ reflexes [facility] 08/23 01:35 Order name: CBC Smear Scan; Complete Time: 03:55 [facility] 08/23 01:42 Order name: Type And Screen [facility] 08/23 02:37 Order name: Packed RBC Leukored [facility] 08/23 04:38 Order name: CBC with Automated Diff [facility] 08/23 04:38 Order name: CBC with Automated Diff [facility] 08/23 04:38 Order name: Comprehensive Metabolic Panel [facility] 08/23 04:38 Order name: Comprehensive Metabolic Panel [facility] 08/23 00:06 Order name: XRAY Chest (1 view) [facility] 08/23 01:25 Order name: CT Abd/Pelvis - Without Contrast [facility] 08/23 00:06 Order name: EKG; Complete Time: 00:06 [facility] 08/23 00:06 Order name: Cardiac monitoring; Complete Time: 01:05 [facility] 08/23 00:06 Order name: EKG - Nurse/Tech; Complete Time: 01:05 [facility] 08/23 00:06 Order name: IV Saline Lock; Complete Time: 01:05 [facility] 08/23 00:06 Order name: Labs collected and sent; Complete Time: 01:05 [facility] 08/23 00:06 Order name: O2 Per Protocol; Complete Time: 00:06 [facility] 08/23 00:06 Order name: O2 Sat Monitoring; Complete Time: 00:06 [facility] 08/23 01:42 Order name: Transfuse; Complete Time: 08:34 [facility] 08/23 03:56 Order name: Damon; Complete Time: 06:40 [facility] EC:26 Rate is 128 beats/min. Rhythm is regular. QRS [place] is Normal. GA interval is normal. [facility] QRS interval is normal. QT interval is normal. No Q waves. T waves are Normal. No ST changes noted. Clinical impression: Sinus tachycardia and No evidence of ischemia. Interpreted by me. Reviewed by me. Administered Medications: 01:04 Drug: NS 0.9% IV 1000 ml IV at 1 bolus Per protocol; 1000 mL bolus Route: IV; Rate: 1 as6 bolus; Site: [facility]; 01:04 Drug: HYDROmorphone IVP 1 mg IVP once Route: IVP; Site: [facility]; as6 01:04 Drug: Ondansetron IVP 4 mg IVP once; over 2 minutes Route: IVP; Site: [facility]; as6 01:04 Drug: Famotidine IVP 20 mg IVP once; dilute with 10 mL 0.9% NaCl; give over 2 minutes as6 Route: IVP; Site: [facility]; 02:04 Drug: Rocephin IV 1 grams IV at per protocol once; Given slow IV push per pharmacy as6 instructions Route: IV; Rate: per protocol; Site: [facility]; 02:04 Drug: HYDROmorphone IVP 1 mg IVP once Route: IVP; Site: [facility]; as6 05:42 Drug: Meropenem IV 1 grams IV at per protocol once; (mix in NS 100 mL) Route: IV; Rate: jj7 per protocol; Site: [facility]; 06:15 Follow up: IV Status: Completed infusion jj7 05:43 Drug: HYDROmorphone IVP 0.5 mg IVP once Route: IVP; Site: [facility]; jj7 06:15 Follow up: Response: Pain is decreased jj7 05:43 Drug: Ondansetron IVP 4 mg IVP once; over 2 minutes Route: IVP; Site: [facility]; jj7 06:15 Follow up: Response: No adverse reaction jj7 06:10 Drug: Viscous Lidocaine Mucous Membrane Liquid (4 %) 10 ml Mucous Membrane once {Note: jj7 INSERTED IN PENIS.} Route: Mucous Membrane; 06:53 Drug: HYDROmorphone IVP 1 mg IVP once Route: IVP; Site: [facility]; jj7 07:38 Follow up: Response: No adverse reaction; Pain is decreased db Disposition Summary: 08/23/23 04:03 Hospitalization Ordered Notes: Hospitalization Status: Inpatient Admission sara Provider: Roger Crisostomo cha Condition: Fair sara Problem: new sara Symptoms: have improved sara Bed/Room Type: Standard sara Location: Telemetry/MedSurg (Inpatient)(08/23/23 17:06) bd Room Assignment: 205(08/23/23 17:06) bd Diagnosis - Malignant neoplasm of overlapping sites of rectum, anus and anal canal sara - Anemia, unspecified sara - Anemia in neoplastic disease sara - Acute cystitis sara - UTI/ Urinary tract infection, site not specified sara - Unspecified kidney failure - chronic sara - Abdominal pain, Generalized - colostomy x 2, bilateral neprostomy tubes sara Forms: - Medication Reconciliation Form sara - SBAR form sara - Leadership Thank You Letter sara Signatures: Dispatcher [employer] Betsy Bridges Martha, RN RN Steven Hayward MD MD cha Slawson, Ashby, RN RN as6 Sweta Albert RN RN jj7 Irene Pozo RN db Corrections: (The following items were deleted from the chart) 01:29 00:06 Abdomen Pelvis W Con+CT.RAD.BRZ ordered. EDMS EDMS 04:17 04:03 Telemetry/MedSurg (Inpatient) sara mw 04:17 04:03 sara mw 17: 04:17 BR ER HOLD [facility] : 04:17 ERHOLD- bd
[2023-08-23] MEDS ORDERED: ONDANSETRON 4 MG/2 ML VIAL IV PRN (04:34)
[2023-08-23] MEDS ORDERED: ACETAMINOPHEN 500 MG TAB PO PRN (04:34)
--- NOTE | 2023-08-23 04:38 | P.HP ---
Certification for Inpatient Patient admitted to: Inpatient With expected LOS: >2 Midnights Patient will require the following post-hospital care: None Practitioner: I am a practitioner with admitting privileges, knowledge of patient current condition, hospital course, and medical plan of care. Services: Services provided to patient in accordance with Admission requirements found in Title 42 Section 412.3 of the Code of Federal Regulations Patient History Date of Service: 08/23/23 Reason for admission: Abdominal pain History of Present Illness: 58 yrs old Black Male with past medical history of hypertension, hyperlipidemia, CHF, gout, colon cancer on chemotherapy, has a history of nephrostomy tube bilateral presents to ER with complaints of abdominal pain. Pain started 3 days ago and has been progressively worsening. It is located in lower abdomen with no radiation associated with abdominal distention. Associated with nausea but no vomiting. Pain is crampy in type and is constant aggravated with movements . Denies any fever or chills. No chest pain or shortness of breath Patient has a history of colon cancer is undergoing chemotherapy in [place]. Patient is being admitted for further management of possible UTI and pain control. Allergies No Known Allergies Allergy (Verified 05/24/23 23:26) Home medications list reviewed: Yes Home Medications: carvediloL [Coreg*] 3.125 mg PO BID 6AM 6PM #60 tab 05/11/23 Hydrocodone/Acetaminophen [Hydrocodone-Acetamin 10-325 mg] 1 each PO Q6HP PRN 05/24/23 - Past Medical/Surgical History Diabetic: No Past Medical History: Reviewed- Non-Contributory -: Systolic CHF -: HTN -: HLD -: Rectal Cancer Dx January 2021 -: Gout -: JANET (Dr. Hernandez/ Dr. Miranda) Past Surgical History: Reviewed- Non-Contributory -: Chemo-Port placement - Family History Family History: Reviewed- Non-Contributory - Family History Mother -: Heart disease, Hypertension, Other (see notes) Notes: CHF Father -: Diabetes - Social History Smoking Status: Never smoker Alcohol use: No CD- Drugs: No Caffeine use: Yes Review of Systems 10-point ROS is otherwise unremarkable General: Weakness, Malaise, Unremarkable Eyes: Unremarkable ENT: Unremarkable Respiratory: Unremarkable Cardiovascular: Unremarkable Gastrointestinal: Nausea, Abdominal Pain, Distention Genitourinary: Unremarkable Musculoskeletal: Unremarkable Integumentary: Unremarkable Neurological: Unremarkable Physical Examination - Vital Signs Temperature: 98.8 F Blood Pressure: 136/78 Pulse: 76 Respirations: 18 Pulse Ox (%): 98 - Physical Exam General: Alert, Cooperative, Cachectic, Mild distress HEENT: Atraumatic, Normocephalic Neck: Supple, No Thyromegaly Respiratory: Clear to auscultation bilaterally, Normal air movement Cardiovascular: No edema, Normal pulses, Regular rate/rhythm, Normal S1 S2 Capillary refill: <2 Seconds Gastrointestinal: Distended, Tenderness, Guarding Musculoskeletal: No clubbing, No swelling Integumentary: No rashes, No breakdown Neurological: Normal speech, Normal strength at 5/5 x4 extr, Cranial nerves 3-12 intact, Normal reflexes 2+, Normal affect - Studies Laboratory Data (last 24 hrs) 08/23/23 08/23/23 08/23/23 01:02 01:02 01:02 WBC 5.40 Hgb 7.7 L Hct 23.0 L Plt Count 446 H PT 12.6 H INR 1.15 Sodium 136 Potassium 4.5 BUN 28 H Creatinine 2.29 H Glucose 147 H Magnesium 1.4 L Total Bilirubin 0.2 AST 13 L ALT < 6 L Alkaline Phosphatase 70 Lipase 17 Assessment and Plan - Problems (Diagnosis) (1) Intractable abdominal pain Current Visit: Yes Status: Acute Plan: Pain control Monitor closely CT abdomen pelvis pending May need surgical consult if shows SBO Possible pyelonephritis Will start on IV antibiotics UA pending (2) CKD (chronic kidney disease), stage III Onset Date: 08/05/14 Current Visit: No Status: Chronic Plan: Renal parameters monitored Electrolytes monitor and replace accordingly (3) Hypertension Onset Date: 08/05/14 Current Visit: No Status: Chronic Plan: Continue home medications Coreg Titrate as needed (4) Rectal cancer Current Visit: No Status: Chronic Plan: Patient being followed in [place] status post chemotherapy CT abdomen pelvis pending (5) S/P partial colectomy Current Visit: No Status: Chronic (6) Anemia Current Visit: Yes Status: Acute Plan: Anemia of chronic disease CBC monitored Transfuse as needed Discharge Plan: Home Plan to discharge in: 48 Hours - Advance Directives Does patient have a Living Will: No Does patient have a Durable POA for Healthcare: No - Code Status/Comfort Care Code Status: Full Code Physician Review: Patient Assessed, Agree with Above Assessment and Plan Time Spent Managing Pts Care (In Minutes): 46
[2023-08-23 05:39] VITALS: BMI 16.7
[2023-08-23] MEDS ORDERED: HYDROMORPHONE HCL 0.5 MG/0.5 ML INJ ONE (05:40)
[2023-08-23] MEDS ORDERED: Meropenem 1000 MG/VIAL IV ONE (05:40)
[2023-08-23] MEDS ORDERED: NA CHLORIDE 0.9% 100 ML ONE ×2 (05:41→09:28)
[2023-08-23] MEDS ORDERED: LIDOCAINE HCL JELLY 2% 6 ML SYRINGE TOP ONE (06:16)
[2023-08-23 07:16] LABS: Specific Gravity 1.028 (1.005-1.030); Urine Bacteria Loaded /HPF (<20); Urine Bilirubin NEGATIVE (Negative); Urine Blood 1+ (Negative); Urine Clarity Extremely Turbid (Clear); Urine Color Dark-Brown (Yellow); Urine Glucose NEGATIVE (Negative); Urine Mucus 4+ /HPF (None Seen); Urine Protein 1+ (Negative); Urine Urobilinogen Normal (Normal); Urine WBC Clump Many /HPF (None Seen)
[2023-08-23] MEDS ORDERED: NA CHLORIDE 0.9% 250 ML ONE (07:33)
[2023-08-23] MEDS: NA CHLORIDE 0.9% 1,000 ML IV SCH ×2 (09:00→20:19)
[2023-08-23] MEDS: carvediloL 3.125 MG TAB PO SCH ×2 (09:00→18:00)
[2023-08-23] MEDS ORDERED: PIPER TAZO 3.375 GM in NA CHLORIDE 0.9% 100 ML IV SCH (09:00)
[2023-08-23] MEDS ORDERED: MORPHINE 2 MG/ML SYR ONE ×2 (09:27→13:27)
[2023-08-23] MEDS ORDERED: carvediloL 6.25 MG TAB ONE (09:27)
--- NOTE | 2023-08-23 09:27 | P.CNS ---
Date of Consult: 08/23/23 Reason for Consult: recurrent UTI, bilateral nephrostomy tubes Chief Complaint: Abdominal pain History of Present Illness: Patient is a 58 yo male with a past medical history of hypertension, hyperlipidemia, CHF, gout, colon cancer on chemotherapy, and bilateral nephrostomy tubes who presented to the ED with complaints of abdominal pain and rectal pain which he reports started about 8 days ago and has been progressively worsening. CT abdomen pevlis wo contrast reporting "abnormal wall thickening of the procedural rectosigmoid colon with central area of low density suspicious for neoplastic process. There is an close proximity/contiguous to the posterior urinary bladder wall. Bilateral percutaneous nephrostomy tubes in place with no evidence of hydronephrosis. Retroperitoneal lymphadenopathy. Left renal cyst. Small trace bilateral pleural effusions and progression pulmonary nodules. Mild haziness within the skin/subcutaneous tissue perhaps suggesting the possibility of cachexia and/or anasarca. Grossly the unopacified liver demonstrates hypodense lesion posterior segment right hepatic lobe measuring approximately 3 x 2.4 cm, progressed in comparison with prior study. " Urinalysis suggestive of UTI. Urine culture obtained, patient started on empiric zosyn in ED. Infectious disease was consulted. Allergies No Known Allergies Allergy (Verified 05/24/23 23:26) Home medications list reviewed: Yes Home Medications: carvediloL [Coreg*] 3.125 mg PO BID 6AM 6PM #60 tab 05/11/23 Hydrocodone/Acetaminophen [Hydrocodone-Acetamin 10-325 mg] 1 each PO Q6HP PRN 05/24/23 - Past Medical/Surgical History Diabetic: No -: Systolic CHF -: HTN -: HLD -: Rectal Cancer Dx January 2021 -: Gout -: JANET (Dr. Hernandez/ Dr. Miranda) -: Chemo-Port placement - Family History Mother Medical History: Heart disease, Hypertension, Other (see notes) Notes: CHF Father Medical History: Diabetes - Social History Smoking Status: Never smoker Alcohol use: No CD- Drugs: No Caffeine use: Yes Physical Examination Temp Pulse Resp BP Pulse Ox 98.4 F 105 H 14 106/81 100 08/23/23 07:00 08/23/23 07:00 08/23/23 07:00 08/23/23 07:00 08/23/23 07:00 General: Alert, In no apparent distress, Oriented x3, Cachectic HEENT: Atraumatic, Normocephalic Respiratory: Normal air movement, Diminished, Other (breathing comfortably on room air) Cardiovascular: No edema, Other (tachycardic. Right subclavian port-a-cath) Gastrointestinal: Normal bowel sounds, Other (colostomy), Tenderness Integumentary: No rashes Neurological: Normal speech, Normal tone, Normal affect Urinary: Other (bilateral nephrostomy tubes) Laboratory Data (last 24 hrs) 08/23/23 08/23/23 08/23/23 01:02 01:02 01:02 WBC 5.40 Hgb 7.7 L Hct 23.0 L Plt Count 446 H PT 12.6 H INR 1.15 Sodium 136 Potassium 4.5 BUN 28 H Creatinine 2.29 H Glucose 147 H Magnesium 1.4 L Total Bilirubin 0.2 AST 13 L ALT < 6 L Alkaline Phosphatase 70 Lipase 17 Microbiology Data - Reviewed Imagings Data: - Reviewed Medications List Acetaminophen (Acetaminophen 500 Mg Tab) 500 mg PO Q6H PRN PRN Reason: Pain scale 2-4 (Mild) Hydrocodone Bitart/Acetaminophen (Hydrocodone/Apap 10/325 Tab) 1 tab PO Q6HP PRN PRN Reason: Pain scale 5-7 (Moderate) Carvedilol (Carvedilol 3.125 Mg Tab) 3.125 mg PO BID 6AM 6PM LIGIA Sodium Chloride (Ns 1000 Ml Ivbag) 1,000 mls @ 100 mls/hr IV .Q10H LIGIA Piperacillin Sod/Tazobactam (Sod 3.375 gm/ Sodium Chloride) 100 mls @ 25 mls/hr IV Q8HR LIGIA; Protocol Morphine Sulfate (Morphine 2 Mg/Ml Syr) 2 mg IV Q4H PRN PRN Reason: Pain scale 5-7 (Moderate) Ondansetron HCl (Ondansetron 4 Mg/2 Ml Vial) 4 mg IV Q8H PRN PRN Reason: NAUSEA / VOMITING Conclusions/Impression: Problem List Complicated Urinary Tract Infection, bilateral nephrostomy tubes Colon Cancer on chemotherapy Hypertension Hyperlipidemia Severe protein-calorie malnutrition Anemia Thrombocytosis Complicated Urinary Tract Infection - CT abdomen pevlis wo contrast 08/23: "abnormal wall thickening of the procedural rectosigmoid colon with central area of low density suspicious for neoplastic process. There is an close proximity/contiguous to the posterior urinary bladder wall. Bilateral percutaneous nephrostomy tubes in place with no evidence of hydronephrosis. Retroperitoneal lymphadenopathy. Left renal cyst. Small trace bilateral pleural effusions and progression pulmonary nodules. Mild haziness within the skin/subcutaneous tissue perhaps suggesting the possibility of cachexia and/or anasarca. Grossly the unopacified liver demonstrates hypodense lesion posterior segment right hepatic lobe measuring approximately 3 x 2.4 cm, progressed in comparison with prior study. " - Bilateral nephrostomy tubes - Urine culture 08/23: Pending - Currently on Zosyn (started 08/23) Recommendations - Complicated UTI: history of MDRO and ESBL infections, started on Meropenem and discontinued Zosyn. - Due to complicated UTI with bilateral nephrostomy tubes and immunocompromised state, recommend continuing antibiotic therapy for 14 days. - Monitor WBC and fever trends - Supplemental nutrition - Pain management per primary team - Colon cancer on chemotherapy: patient to follow up with oncologist in [place] as outpatient Case discussed with Alicia Valle
[2023-08-23] MEDS ORDERED: PIPERACIL/TAZO 3.375 GM VIAL IV ONE (09:28)
[2023-08-23] MEDS: MORPHINE 2 MG/ML SYR IV PRN ×3 (09:30→20:13)
[2023-08-23] MEDS: HYDROCODONE/APAP 10/325 TAB PO PRN (15:45)
[2023-08-23] MEDS ORDERED: HYDROCODONE/APAP 10/325 TAB ONE (15:56)
--- NOTE | 2023-08-23 16:15 | P.PN ---
Date of Service: 08/23/23 Patient seen on rounds early this morning, shortly after admission. Reports ~1 week of purulent drainage from urethra. Discharged from [facility] on 08/14 - admitted for 2 weeks due to sepsis -UTI / concern for rectal perforation/abscess. managed medically, completed 2 week antibiotics on 08/14 prior to discharge home. Imaging notes increased size of metastatic disease, UA grossly positive /concerning for UTI - reportedly obtained from urethral straight cath SIRS 10/19: tachycardia broadened antibiotic ID consulted full code
[2023-08-23] MEDS: Meropenem 1,000 MG in NA CHLORIDE 0.9% 100 ML IV SCH (20:12)
--- NOTE | 2023-08-23 20:57 | P.CNS ---
Date of Consult: 08/23/23 Reason for Consult: JANET/ CKD Requesting Physician: Roger Crisostomo Chief Complaint: Abdominal pain History of Present Illness: 58 yrs old Black Male with past medical history of hypertension, hyperlipidemia, CHF, gout, colon cancer on chemotherapy, has a history of nephrostomy tube bilateral presents to ER with complaints of abdominal pain. Pain started 3 days ago and has been progressively worsening. It is located in lower abdomen with no radiation associated with abdominal distention. Associated with nausea but no vomiting. Pain is crampy in type and is constant aggravated with movements . Denies any fever or chills. No chest pain or shortness of breath Patient has a history of colon cancer is undergoing chemotherapy in [place]. Patient is being admitted for further management of possible UTI and pain control. [id number] 00:16 This 58 yrs old Black Male presents to ER via EMS with complaints of abdominal pain, hx sara colostomy, ileostomy, bilateral neprostomy tubes. 00:16 The patient presents with abdominal pain in the lower abdomen, abdominal distention in sara the lower abdomen. Onset: The symptoms/episode began/occurred 3 day(s) ago. The symptoms do not radiate. Associated signs and symptoms: Pertinent positives: nausea. The symptoms are described as constant, crampy. Modifying factors: The symptoms are alleviated by nothing, the symptoms are aggravated by movement, touching the area. Severity of pain: At its worst the pain was moderate severe in the emergency department the pain is unchanged. The patient has experienced similar episodes in the past, a few times. Discharged from [facility] on 08-22-23 Allergies No Known Allergies Allergy (Verified 05/24/23 23:26) Home medications list reviewed: Yes Home Medications: carvediloL [Coreg*] 3.125 mg PO BID 6AM 6PM #60 tab 05/11/23 Hydrocodone/Acetaminophen [Hydrocodone-Acetamin 10-325 mg] 1 each PO Q6HP PRN 05/24/23 - Past Medical/Surgical History Diabetic: No -: Systolic CHF -: HTN -: HLD -: Rectal Cancer Dx January 2021 -: Gout -: JANET/ CKD III (Dr. Hernandez/ Dr. Miranda) -: Chemo-Port placement - Family History Mother Medical History: Heart disease, Hypertension, Other (see notes) Notes: CHF Father Medical History: Diabetes - Social History Smoking Status: Never smoker Alcohol use: No CD- Drugs: No Caffeine use: Yes Review of Systems 10-point ROS is otherwise unremarkable General: Malaise Physical Examination Temp Pulse Resp BP Pulse Ox 97.4 F 90 16 123/83 95 08/23/23 18:00 08/23/23 18:00 08/23/23 20:13 08/23/23 18:00 08/23/23 20:13 General: In no apparent distress, Oriented x3, Cooperative HEENT: Atraumatic Neck: Supple Respiratory: Clear to auscultation bilaterally Cardiovascular: No edema, Regular rate/rhythm Gastrointestinal: Non-distended Musculoskeletal: No clubbing, No contractures Integumentary: No rashes, No cyanosis Neurological: Normal speech Laboratory Data (last 24 hrs) 08/23/23 08/23/23 08/23/23 01:02 01:02 01:02 WBC 5.40 Hgb 7.7 L Hct 23.0 L Plt Count 446 H PT 12.6 H INR 1.15 Sodium 136 Potassium 4.5 BUN 28 H Creatinine 2.29 H Glucose 147 H Magnesium 1.4 L Total Bilirubin 0.2 AST 13 L ALT < 6 L Alkaline Phosphatase 70 Lipase 17 Imagings Data: EXAM DESCRIPTION: CT - Abdomen Pelvis Wo Contrast - 08/23/2023 6:38 am CLINICAL HISTORY: 58 years, Male, ABD PAIN COMPARISON: 08/01/2023 TECHNIQUE: Noncontrast images of the abdomen and pelvis were performed utilizing 5 mm slice thickness at 5 mm interval reconstruction from the lung bases to the ischial tuberosities. In addition multiplanar reformats in the coronal and sagittal plane were obtained and reviewed. An individualized dose optimization technique, Automated Exposure Control, was utilized for the performed procedure. FINDINGS: Lung bases: The lung bases again demonstrated presence of the multiple bilateral pulmonary nodules have slightly progressed in comparison specifically referenced nodule within the left lower lung now measuring 8.6 mm on axial image 5/109, previously measured 8 mm. Small trace bilateral pleural effusions Liver: Grossly the unopacified liver demonstrates hypodense lesion posterior segment right hepatic lobe measuring approximately 3 x 2.4 cm, progressed in comparison with prior study. Gallbladder: The gallbladder demonstrates presence of layering high density structures corresponding to cholelithiasis. No biliary duct dilatation. Adrenal glands: Grossly the unopacified adrenal glands demonstrate to be normal. Pancreas: Grossly the unopacified pancreas demonstrate to be normal. Spleen: The spleen demonstrate to be normal. Kidneys: Both kidneys demonstrate a presence of percutaneous nephrostomy tubes in place. There is no evidence for significant nephrolithiasis and/or hydronephrosis. There is a cyst within the midpole left kidney measuring 1.1 cm image 30. GI: Grossly the unopacified stomach and small bowel demonstrate to be within normal limits. No evidence for bowel dilatation and/or free air. There is a right lower quadrant area of communication with the cecum/colostomy. There is fecal residue. There is a left lower quadrant colostomy. The appendix is unremarkable. Abnormal wall thickening of the procedural rectosigmoid colon with central area of low density suspicious for neoplastic process. There is an close proximity/contiguous to the posterior urinary bladder wall. : The urinary bladder demonstrate abnormal posterior wall thickening related to abnormal rectosigmoid colon. Genitalia: The prostate gland is normal. Abdominal aorta: The aorta demonstrate minimal peripheral atheromatous plaque. Retroperitoneum: There are retroperitoneal lymph node largest bulk inferior left perirenal aspect measuring 2.1 x 2.1 cm on image 39. There is no evidence for ascites. Bones: The bony structures demonstrate to be within normal limits. RADIOLOGY SERVICES REPORT (Continued) Name: GENO PRASAD CC: GENO PRASAD / Report: [id number] Radiology Services Report Page 2 of 2 Soft tissues: There is haziness within the skin/subcutaneous tissue perhaps suggesting the possibility of cachexia and/or anasarca. IMPRESSION: Abnormal wall thickening of the procedural rectosigmoid colon with central area of low density suspicious for neoplastic process. There is an close proximity/contiguous to the posterior urinary bladder wall. Bilateral percutaneous nephrostomy tubes in place with no evidence for hydronephrosis. Retroperitoneal lymphadenopathy. Cholelithiasis. Left renal cyst. No follow-up is recommended. Small trace bilateral pleural effusions and progression pulmonary nodules. Mild haziness within the skin/subcutaneous tissue perhaps suggesting the possibility of cachexia and/or anasarca. Grossly the unopacified liver demonstrates hypodense lesion posterior segment right hepatic lobe measuring approximately 3 x 2.4 cm, progressed in comparison with prior study. EXAM DESCRIPTION: RAD - Chest Single View - 08/23/2023 12:18 am CLINICAL HISTORY: 58 years, Male, COUGH COMPARISON: 12/08/2022. FINDINGS: 1 views of the chest was obtained. Prior films were compared. The cardiomediastinal silhouette demonstrate to be within normal limits. The heart is not enlarged. The thoracic aorta is unremarkable. The pulmonary vasculature is normal in distribution. The costophrenic angles demonstrate to be sharp.. There are multiple bilateral pulmonary nodules suspicious for metastatic disease. There is a right IJ venous Port-A-Cath placed. There is no evidence for pneumothorax. The rest of the soft tissue and bony structures are unremarkable. IMPRESSION: Multiple bilateral pulmonary nodules suspicious for metastatic disease. Conclusions/Impression: Stage I JANET in the setting of hypovolemia CKD III with Proteinuria -No NSAIDs -Continue IVF Hypomagnesemia -Start SloMag BID HTN with CKD/ CHF -Continue Coreg Systolic CHF, chronic -Daily weight Hypoalbuminemia -Recommend protein supplementation Anemia in chronic illness Hx iron deficiency -Monitor H&H -Transfuse PRBC prn Acute Cystitis with Hematuria -Follow up culture -Continue abx Hospitalist and ER notes reviewed Thank you kindly for the consultation
[2023-08-23] MEDS: MAGNESIUM CHLORIDE 64 MG TAB PO SCH (22:20)
[2023-08-24] MEDS: MORPHINE 2 MG/ML SYR IV PRN ×5 (00:45→22:57)
[2023-08-24] MEDS: NA CHLORIDE 0.9% 1,000 ML IV SCH ×3 (01:00→20:27)
[2023-08-24] MEDS: carvediloL 3.125 MG TAB PO SCH ×2 (05:49→17:40)
[2023-08-24] MEDS: Meropenem 1,000 MG in NA CHLORIDE 0.9% 100 ML IV SCH ×2 (07:51→20:26)
[2023-08-24] MEDS: MAGNESIUM CHLORIDE 64 MG TAB PO SCH ×2 (07:57→20:26)
--- NOTE | 2023-08-24 07:59 | P.PN ---
Date of Service: 08/24/23 Subjective: Feels ~same as yesterday doesn't feel anything is better or worse breathing okay on room air; +intermittent tachycardia reportedly was hospitalized at [facility] after being discharged from [facility] on 08/[address] Hernandez (admitted 08/17 - discharge 08/22) afebrile ROS: 10 point ROS as noted above, otherwise negative Physical Exam: GEN: Alert, oriented, cachectic HEENT: Normal conjunctiva, sclera anicteric CV: Intermittent Tachycardia, no edema Pulm: Nonlabored respirations on room air, clear bilaterally ABD: Soft, mild abdominal discomfort, nondistended Neuro: Normal speech, normal affect Right subclavian port-a-cath in place b/l nephrostomy's in place, clear light jennifer urine in bag colostomy bag in place vitals reviewed Problem List: Complicated UTI with b/l nephrostomy tubes Chronic Anemia; h/o iron deficiency anemia JANET on CKD3 Colon Cancer on chemotherapy Chronic systolic CHF Hypertension Hyperlipidemia h/o ESBL Severe protein-calorie malnutrition Complicated UTI with b/l nephrostomy tubes h/o ESBL E. coli CT abdomen (08/23): abnormal wall thickening of the procedural rectosigmoid colon with central area of low density suspicious for neoplastic process. Nephrostomy tubes in place with no evidence of hydronephrosis Retroperitoneal lymphadenopathy. Left renal cyst. Small trace bilateral pleural effusions and progression pulmonary nodules. Mild haziness within the skin/subcutaneous tissue perhaps suggesting the possibility of cachexia and/or anasarca Reports ~1 week of purulent drainage from urethra. Discharged from [facility] on - admitted for 2 weeks due to sepsis -UTI / concern for rectal perforation/abscess. managed medically, completed 2 week antibiotics on 08/14 prior to discharge home. 08/24 patient hospitalized at [facility] after being discharged from [facility] on 08/[address] Hernandez (admitted 08/17 - discharged 08/22) UA grossly positive /concerning for UTI - reportedly obtained from urethral straight cath urine cx(08/23): +4GNR ID consulted Continue empiric Merrem (08/23-) switched from zosyn given recent h/o ESBL E. coli x2 weeks total abx treatment per ID afebrile, no leukocytosis PRN pain medication uncertain if pain is more related to cancer vs cancer +UTI patient with multiple antibiotic courses - at [facility] or 2 weeks, home for ~2 days, then at [facility] for ~1 week, home for 1 day, then here. Chronic Anemia; h/o iron deficiency anemia hgb 7.7 on admission iron studies from 05/12/2023 consistent with iron deficiency anemia monitor H&H. Transfuse for hgb < 7 s/p 2 uPRBC (08/23) repeat labs pending JANET on CKD3 Nephrology consulted continue IV fluids Continue to monitor renal function Colon Cancer on chemotherapy CT abdomen (08/23): liver with hypodense lesion posterior segment right hepatic lobe measuring approximately 3 x 2.4 cm, progressed in comparison with prior study Follows oncologist in [place]; on chemotherapy Chronic systolic CHF Hypertension Hyperlipidemia confirm home medications, restart as appropriate VTE: SCD Code: Full Dispo: Home Pending further improvement; cx results
[2023-08-24] MEDS: HYDROCODONE/APAP 10/325 TAB PO PRN (08:05)
--- NOTE | 2023-08-24 08:44 | P.PN ---
Date of Service: 08/24/23 Chief Complaint: Abdominal pain Subjective: Patient seen and examined at bedside. No acute events reported overnight. In mild distress. Reports continued abdominal pain. Physical Examination Temp Pulse Resp BP Pulse Ox 98.3 F 100 H 16 118/83 95 08/24/23 08:00 08/24/23 08:00 08/24/23 08:00 08/24/23 08:00 08/24/23 08:00 General: Alert, In no apparent distress, Oriented x3, Cachectic HEENT: Atraumatic, Normocephalic Respiratory: Normal air movement, Diminished at bases. On room air, nonlabored respirations. Cardiovascular: No edema. Tachycardia. Right subclavian port-a-cath Gastrointestinal: Abdominal tenderness. Colostomy x 2. Integumentary: No rashes Neurological: Normal speech, Normal tone, Normal affect Urinary: Bilateral nephrostomy tubes Laboratory Data - Reviewed Microbiology Data - Reviewed Imagings Data: - Reviewed Medications List Acetaminophen (Acetaminophen 500 Mg Tab) 500 mg PO Q6H PRN PRN Reason: Pain scale 2-4 (Mild) Hydrocodone Bitart/Acetaminophen (Hydrocodone/Apap 10/325 Tab) 1 tab PO Q6HP PRN PRN Reason: Pain scale 5-7 (Moderate) Last Admin: 08/24/23 08:05 Dose: 1 tab Carvedilol (Carvedilol 3.125 Mg Tab) 3.125 mg PO BID 6AM 6PM [facility] Last Admin: 08/24/23 05:49 Dose: 3.125 mg Sodium Chloride (Ns 1000 Ml Ivbag) 1,000 mls @ 100 mls/hr IV .Q10H [facility] Last Admin: 08/24/23 07:50 Dose: 1,000 mls Meropenem 1,000 mg/ Sodium (Chloride) 100 mls @ 200 mls/hr IV Q12HR [facility] Last Admin: 08/24/23 07:51 Dose: 100 mls Magnesium Chloride (Magnesium Chloride 64 Mg Tab) 64 mg PO BID [facility] Last Admin: 08/24/23 07:57 Dose: 64 mg Morphine Sulfate (Morphine 2 Mg/Ml Syr) 2 mg IV Q4H PRN PRN Reason: Pain scale 8-10 (Severe) Last Admin: 08/24/23 05:41 Dose: 2 mg Ondansetron HCl (Ondansetron 4 Mg/2 Ml Vial) 4 mg IV Q8H PRN PRN Reason: NAUSEA / VOMITING Assessment and plan Problem List Complicated Urinary Tract Infection, bilateral nephrostomy tubes Colon Cancer on chemotherapy Hypertension Hyperlipidemia Severe protein-calorie malnutrition Anemia in chronic illness Complicated Urinary Tract Infection - CT abdomen pevlis wo contrast 08/23: "abnormal wall thickening of the procedural rectosigmoid colon with central area of low density suspicious for neoplastic process. There is an close proximity/contiguous to the posterior urinary bladder wall. Bilateral percutaneous nephrostomy tubes in place with no evidence of hydronephrosis. Retroperitoneal lymphadenopathy. Left renal cyst. Small trace bilateral pleural effusions and progression pulmonary nodules. Mild haziness within the skin/subcutaneous tissue perhaps suggesting the possibility of cachexia and/or anasarca. Grossly the unopacified liver demonstrates hypodense lesion posterior segment right hepatic lobe measuring approximately 3 x 2.4 cm, progressed in comparison with prior study. " - Bilateral nephrostomy tubes - Urine culture 08/23: 4+ gram-negative rods -Zosyn switched to meropenem on 08/23 due to recent history of ESBL Recommendations - Due to complicated UTI with bilateral nephrostomy tubes and immunocompromised state, recommend continuing antibiotic therapy for 14 days. - Urine culture with 4+ gram negative rods. Continue Meropenem for now. - Supplemental nutrition - JANET : Nephrology following. Renally dose medications. - Monitor WBC and fever trends - Pain management per primary team - Colon cancer on chemotherapy: patient to follow up with oncologist in [place] as outpatient Case discussed with Alicia Valle
--- NOTE | 2023-08-24 10:28 | RAD REPORT ---
EXAM DESCRIPTION: CT - Abdomen Pelvis Wo Contrast - 08/23/2023 6:38 am CLINICAL HISTORY: 58 years, Male, ABD PAIN COMPARISON: 08/01/2023 TECHNIQUE: Noncontrast images of the abdomen and pelvis were performed utilizing 5 mm slice thicknes s at 5 mm interval reconstruction from the lung bases to the ischial tuberosities. In addition multiplanar reformats in the coronal and sagittal plane were obtained and reviewed. An individualized dose optimization technique, Automated Exposure Control, was utilized for the perfo rmed procedure. FINDINGS: Lung bases: The lung bases again demonstrated presence of the multiple bilateral pulmonary nodules riley ve slightly progressed in comparison specifically referenced nodule within the left lower lung now me asuring 8.6 mm on axial image 5/109, previously measured 8 mm. Small trace bilateral pleural effusion s Liver: Grossly the unopacified liver demonstrates hypodense lesion posterior segment right hepatic lo be measuring approximately 3 x 2.4 cm, progressed in comparison with prior study. Gallbladder: The gallbladder demonstrates presence of layering high density structures corresponding to cholelithiasis. No biliary duct dilatation. Adrenal glands: Grossly the unopacified adrenal glands demonstrate to be normal. Pancreas: Grossly the unopacified pancreas demonstrate to be normal. Spleen: The spleen demonstrate to be normal. Kidneys: Both kidneys demonstrate a presence of percutaneous nephrostomy tubes in place. There is n o evidence for significant nephrolithiasis and/or hydronephrosis. There is a cyst within the midpole left kidney measuring 1.1 cm image 30. GI: Grossly the unopacified stomach and small bowel demonstrate to be within normal limits. No eviden ce for bowel dilatation and/or free air. There is a right lower quadrant area of communication with the cecum/colostomy. There is fecal residu e. There is a left lower quadrant colostomy. The appendix is unremarkable. Abnormal wall thickening o f the procedural rectosigmoid colon with central area of low density suspicious for neoplastic proces s. There is an close proximity/contiguous to the posterior urinary bladder wall. : The urinary bladder demonstrate abnormal posterior wall thickening related to abnormal rectosigmo id colon. Genitalia: The prostate gland is normal. Abdominal aorta: The aorta demonstrate minimal peripheral atheromatous plaque. Retroperitoneum: There are retroperitoneal lymph node largest bulk inferior left perirenal aspect eduardo suring 2.1 x 2.1 cm on image 39. There is no evidence for ascites. Bones: The bony structures demonstrate to be within normal limits. Soft tissues: There is haziness within the skin/subcutaneous tissue perhaps suggesting the possibilit y of cachexia and/or anasarca. IMPRESSION: Abnormal wall thickening of the procedural rectosigmoid colon with central area of low d ensity suspicious for neoplastic process. There is an close proximity/contiguous to the posterior uri nary bladder wall. Bilateral percutaneous nephrostomy tubes in place with no evidence for hydronephrosis. Retroperitoneal lymphadenopathy. Cholelithiasis. Left renal cyst. No follow-up is recommended. Small trace bilateral pleural effusions and progression pulmonary nodules. Mild haziness within the skin/subcutaneous tissue perhaps suggesting the possibility of cachexia and/ or anasarca. Grossly the unopacified liver demonstrates hypodense lesion posterior segment right hepatic lobe roxanne uring approximately 3 x 2.4 cm, progressed in comparison with prior study. Electronically signed by: Edwin Nation MD 08/23/2023 04:01 AM MANAGER DISCOVERY Due to temporary technical issues with the PACS/Fluency reporting system, reports are being signed by the in house radiologist without review as a courtesy to ensure prompt reporting. The interpreting r adiologist is fully responsible for the content of the report.
--- NOTE | 2023-08-24 10:30 | RAD REPORT ---
EXAM DESCRIPTION: RAD - Chest Single View - 08/23/2023 12:18 am CLINICAL HISTORY: 58 years, Male, COUGH COMPARISON: 12/08/2022. FINDINGS: 1 views of the chest was obtained. Prior films were compared. The cardiomediastinal si lhouette demonstrate to be within normal limits. The heart is not enlarged. The thoracic aorta is unr emarkable. The pulmonary vasculature is normal in distribution. The costophrenic angles demonstrate t o be sharp.. There are multiple bilateral pulmonary nodules suspicious for metastatic disease. Ther e is a right IJ venous Port-A-Cath placed. There is no evidence for pneumothorax. The rest of the sof t tissue and bony structures are unremarkable. IMPRESSION: Multiple bilateral pulmonary nodules suspicious for metastatic disease. Electronically signed by: Edwin Nation MD 08/23/2023 04:02 AM ELECTROLYSIS OPERATOR Due to temporary technical issues with the PACS/Fluency reporting system, reports are being signed by the in house radiologist without review as a courtesy to ensure prompt reporting. The interpreting r adiologist is fully responsible for the content of the report.
--- NOTE | 2023-08-24 10:53 | P.PN ---
Date of Service: 08/24/23 Vital Signs Temp Pulse Resp BP Pulse Ox 98.3 F 100 H 16 118/83 95 08/24/23 08:00 08/24/23 08:00 08/24/23 08:00 08/24/23 08:00 08/24/23 08:00 Medications Acetaminophen (Acetaminophen 500 Mg Tab) 500 mg PO Q6H PRN PRN Reason: Pain scale 2-4 (Mild) Hydrocodone Bitart/Acetaminophen (Hydrocodone/Apap 10/325 Tab) 1 tab PO Q6HP PRN PRN Reason: Pain scale 5-7 (Moderate) Last Admin: 08/24/23 08:05 Dose: 1 tab Carvedilol (Carvedilol 3.125 Mg Tab) 3.125 mg PO BID 6AM 6PM [facility] Last Admin: 08/24/23 05:49 Dose: 3.125 mg Sodium Chloride (Ns 1000 Ml Ivbag) 1,000 mls @ 100 mls/hr IV .Q10H [facility] Last Admin: 08/24/23 07:50 Dose: 1,000 mls Meropenem 1,000 mg/ Sodium (Chloride) 100 mls @ 200 mls/hr IV Q12HR [facility] Last Admin: 08/24/23 07:51 Dose: 100 mls Magnesium Chloride (Magnesium Chloride 64 Mg Tab) 64 mg PO BID [facility] Last Admin: 08/24/23 07:57 Dose: 64 mg Morphine Sulfate (Morphine 2 Mg/Ml Syr) 2 mg IV Q4H PRN PRN Reason: Pain scale 8-10 (Severe) Last Admin: 08/24/23 10:30 Dose: 2 mg Ondansetron HCl (Ondansetron 4 Mg/2 Ml Vial) 4 mg IV Q8H PRN PRN Reason: NAUSEA / VOMITING Lab Results (last 24 hrs) 08/23/23 02:02: ABO/Rh A POSITIVE, Solid Phase Ab Screen Negative, Crossmatch See Detail Assessment/ Plan: Nephrology Abd pain No dyspnea No chest pain No acute events overnight Vitals, medications, blood work and imaging reviewed in the chart General: In no apparent distress, Oriented x3, Cooperative HEENT: Atraumatic Neck: Supple Respiratory: Clear to auscultation bilaterally Cardiovascular: No edema, Regular rate/rhythm Gastrointestinal: Non-distended Musculoskeletal: No clubbing, No contractures Integumentary: No rashes, No cyanosis Neurological: Normal speech Laboratory Data (last 24 hrs) 08/23/23 08/23/23 08/23/23 01:02 01:02 01:02 WBC 5.40 Hgb 7.7 L Hct 23.0 L Plt Count 446 H PT 12.6 H INR 1.15 Sodium 136 Potassium 4.5 BUN 28 H Creatinine 2.29 H Glucose 147 H Magnesium 1.4 L Total Bilirubin 0.2 AST 13 L ALT < 6 L Alkaline Phosphatase 70 Lipase 17 Imagings Data: EXAM DESCRIPTION: CT - Abdomen Pelvis Wo Contrast - 08/23/2023 6:38 am CLINICAL HISTORY: 58 years, Male, ABD PAIN COMPARISON: 08/01/2023 TECHNIQUE: Noncontrast images of the abdomen and pelvis were performed utilizing 5 mm slice thickness at 5 mm interval reconstruction from the lung bases to the ischial tuberosities. In addition multiplanar reformats in the coronal and sagittal plane were obtained and reviewed. An individualized dose optimization technique, Automated Exposure Control, was utilized for the performed procedure. FINDINGS: Lung bases: The lung bases again demonstrated presence of the multiple bilateral pulmonary nodules have slightly progressed in comparison specifically referenced nodule within the left lower lung now measuring 8.6 mm on axial image 5/109, previously measured 8 mm. Small trace bilateral pleural effusions Liver: Grossly the unopacified liver demonstrates hypodense lesion posterior segment right hepatic lobe measuring approximately 3 x 2.4 cm, progressed in comparison with prior study. Gallbladder: The gallbladder demonstrates presence of layering high density structures corresponding to cholelithiasis. No biliary duct dilatation. Adrenal glands: Grossly the unopacified adrenal glands demonstrate to be normal. Pancreas: Grossly the unopacified pancreas demonstrate to be normal. Spleen: The spleen demonstrate to be normal. Kidneys: Both kidneys demonstrate a presence of percutaneous nephrostomy tubes in place. There is no evidence for significant nephrolithiasis and/or hydronephrosis. There is a cyst within the midpole left kidney measuring 1.1 cm image 30. GI: Grossly the unopacified stomach and small bowel demonstrate to be within normal limits. No evidence for bowel dilatation and/or free air. There is a right lower quadrant area of communication with the cecum/colostomy. There is fecal residue. There is a left lower quadrant colostomy. The appendix is unremarkable. Abnormal wall thickening of the procedural rectosigmoid colon with central area of low density suspicious for neoplastic process. There is an close proximity/contiguous to the posterior urinary bladder wall. : The urinary bladder demonstrate abnormal posterior wall thickening related to abnormal rectosigmoid colon. Genitalia: The prostate gland is normal. Abdominal aorta: The aorta demonstrate minimal peripheral atheromatous plaque. Retroperitoneum: There are retroperitoneal lymph node largest bulk inferior left perirenal aspect measuring 2.1 x 2.1 cm on image 39. There is no evidence for ascites. Bones: The bony structures demonstrate to be within normal limits. Soft tissues: There is haziness within the skin/subcutaneous tissue perhaps suggesting the possibility of cachexia and/or anasarca. IMPRESSION: Abnormal wall thickening of the procedural rectosigmoid colon with central area of low density suspicious for neoplastic process. There is an close proximity/contiguous to the posterior urinary bladder wall. Bilateral percutaneous nephrostomy tubes in place with no evidence for hydronephrosis. Retroperitoneal lymphadenopathy. Cholelithiasis. Left renal cyst. No follow-up is recommended. Small trace bilateral pleural effusions and progression pulmonary nodules. Mild haziness within the skin/subcutaneous tissue perhaps suggesting the possibility of cachexia and/or anasarca. Grossly the unopacified liver demonstrates hypodense lesion posterior segment right hepatic lobe measuring approximately 3 x 2.4 cm, progressed in comparison with prior study. EXAM DESCRIPTION: RAD - Chest Single View - 08/23/2023 12:18 am CLINICAL HISTORY: 58 years, Male, COUGH COMPARISON: 12/08/2022. FINDINGS: 1 views of the chest was obtained. Prior films were compared. The cardiomediastinal silhouette demonstrate to be within normal limits. The heart is not enlarged. The thoracic aorta is unremarkable. The pulmonary vasculature is normal in distribution. The costophrenic angles demonstrate to be sharp.. There are multiple bilateral pulmonary nodules suspicious for metastatic disease. There is a right IJ venous Port-A-Cath placed. There is no evidence for pneumothorax. The rest of the soft tissue and bony structures are unremarkable. IMPRESSION: Multiple bilateral pulmonary nodules suspicious for metastatic disease. Conclusions/Impression: Stage I JANET in the setting of hypovolemia CKD III with Proteinuria -No NSAIDs -Continue IVF Hypomagnesemia -Continue SloMag BID HTN with CKD/ CHF -Continue Coreg Systolic CHF, chronic -Daily weight Hypoalbuminemia -Recommend protein supplementation Anemia in chronic illness Hx iron deficiency -Monitor H&H -Transfuse PRBC prn Acute Cystitis with Hematuria -Follow up culture -Continue abx -ID following Hospitalist note reviewed Case reviewed with Dr. Crisostomo
[2023-08-24] MEDS: FENTANYL 50 MCG/PATCH TD SCH (14:50)
[2023-08-24] MEDS: HYDROMORPHONE ORAL 4 MG TAB PO PRN (20:26)
[2023-08-24] MEDS: DOCUSATE NA 100 MG CAP PO SCH (20:27)
[2023-08-24] MEDS: ENSURE ENLIVE 237 ML CAN PO SCH (21:00)
[2023-08-25] MEDS: HYDROMORPHONE ORAL 4 MG TAB PO PRN ×2 (01:59→14:29)
[2023-08-25] MEDS: MORPHINE 2 MG/ML SYR IV PRN ×4 (04:34→21:42)
[2023-08-25] MEDS: carvediloL 3.125 MG TAB PO SCH ×2 (07:04→17:16)
[2023-08-25] MEDS: NA CHLORIDE 0.9% 1,000 ML IV SCH (07:07)
[2023-08-25 07:43] LABS: Absolute Lymphocytes (CBC) 0.4 K/uL (0.7-4.9); Hematocrit 31.8 % (39.6-49.0); Lymphocytes % 6.9 % (15.3-44.8); MCV 82.1 fL (80-100); MPV 6.2 fL (7.6-11.3); Platelets 292 thou/uL (152-406); RBC Red Blood Cell Count 3.88 M/uL (4.33-5.43)
[2023-08-25] MEDS: DOCUSATE NA 100 MG CAP PO SCH ×2 (08:29→21:00)
[2023-08-25] MEDS: Meropenem 1,000 MG in NA CHLORIDE 0.9% 100 ML IV SCH ×2 (08:29→21:42)
[2023-08-25] MEDS: MAGNESIUM CHLORIDE 64 MG TAB PO SCH ×2 (08:29→21:42)
[2023-08-25] MEDS: ENSURE ENLIVE 237 ML CAN PO SCH ×2 (08:29→21:43)
--- NOTE | 2023-08-25 08:54 | P.PN ---
Date of Service: 08/25/23 Chief Complaint: Abdominal pain Subjective: No acute events reported overnight. In no apparent distress. + abdominal pain. Physical Examination Temp Pulse Resp BP Pulse Ox 97.6 F 85 16 110/72 96 08/25/23 04:00 08/25/23 07:04 08/25/23 05:04 08/25/23 07:04 08/25/23 05:04 General: Alert, In no apparent distress, Oriented x3. Cachectic HEENT: Atraumatic, Normocephalic Respiratory: Normal air movement, Diminished at bases. On room air. Cardiovascular: No edema. Tachycardia. Port-a-cath right chest. Gastrointestinal: Abdominal tenderness. Colostomy x 2. Integumentary: No rashes Neurological: Normal speech, Normal tone, Normal affect Urinary: Bilateral nephrostomy tubes Laboratory Data - Reviewed Microbiology Data - Reviewed Imagings Data: - Reviewed Medications List - Reviewed Assessment and plan Problem List Complicated Urinary Tract Infection, bilateral nephrostomy tubes Colon Cancer on chemotherapy Hypertension Hyperlipidemia Anemia in chronic illness Severe protein-calorie malnutrition Complicated Urinary Tract Infection - CT abdomen pevlis wo contrast 08/23: "abnormal wall thickening of the procedural rectosigmoid colon with central area of low density suspicious for neoplastic process. There is an close proximity/contiguous to the posterior urinary bladder wall. Bilateral percutaneous nephrostomy tubes in place with no evidence of hydronephrosis. Retroperitoneal lymphadenopathy. Left renal cyst. Small trace bilateral pleural effusions and progression pulmonary nodules. Mild haziness within the skin/subcutaneous tissue perhaps suggesting the possibility of cachexia and/or anasarca. Grossly the unopacified liver demonstrates hypodense lesion posterior segment right hepatic lobe measuring approximately 3 x 2.4 cm, progressed in comparison with prior study. " - Bilateral nephrostomy tubes - Urine culture 08/23: 4+ gram-negative rods -Zosyn switched to meropenem on 08/23 due to recent history of ESBL Recommendations - Due to complicated UTI with bilateral nephrostomy tubes and immunocompromised state, recommend continuing antibiotic therapy for 14 days. - Urine culture with 4+ gram negative rods; pending speciation. Continue Meropenem for now. - Supplemental nutrition - JANET : Nephrology following. Renally dose medications. - Monitor WBC and fever trends - Pain management per primary team - Colon cancer on chemotherapy: patient to follow up with his Oncologist in [place] Case discussed with Alicia Valle
--- NOTE | 2023-08-25 08:59 | P.PN ---
Date of Service: 08/25/23 Subjective: Feeling litter today abdominal pain slowly improving no new / worsening problems afebrile ROS: 10 point ROS as noted above, otherwise negative Physical Exam: GEN: Alert, oriented, cachectic HEENT: Normal conjunctiva, sclera anicteric CV: Intermittent Tachycardia, no edema Pulm: Nonlabored respirations on room air, clear bilaterally ABD: Soft, mild abdominal discomfort, nondistended Neuro: Normal speech, normal affect Right subclavian port-a-cath in place b/l nephrostomy's in place, clear light jennifer urine in bag colostomy bag in place vitals reviewed Problem List: Complicated UTI with b/l nephrostomy tubes Chronic Anemia; h/o iron deficiency anemia JANET on CKD3 Colon Cancer on chemotherapy Chronic systolic CHF Hypertension Hyperlipidemia h/o ESBL Severe protein-calorie malnutrition Complicated UTI with b/l nephrostomy tubes h/o ESBL E. coli CT abdomen (08/23): abnormal wall thickening of the procedural rectosigmoid colon with central area of low density suspicious for neoplastic process. Nephrostomy tubes in place with no evidence of hydronephrosis Retroperitoneal lymphadenopathy. Left renal cyst. Small trace bilateral pleural effusions and progression pulmonary nodules. Mild haziness within the skin/subcutaneous tissue perhaps suggesting the possibility of cachexia and/or anasarca Reports ~1 week of purulent drainage from urethra. Discharged from [facility] on 08/14 - admitted for 2 weeks due to sepsis -UTI / concern for rectal perforation/abscess. managed medically, completed 2 week antibiotics on 08/14 prior to discharge home. 08/24 patient hospitalized at [place] after being discharged from [facility] on 08/[address] Hernandez (admitted 08/17 - discharged 08/22) UA grossly positive /concerning for UTI - reportedly obtained from urethral straight cath urine cx(08/23): +4GNR ID consulted Continue empiric Merrem (08/23-) switched from zosyn 08/23 given recent h/o ESBL E. coli x2 weeks total abx treatment per ID afebrile, no leukocytosis PRN pain medication uncertain if pain is more related to cancer vs cancer +UTI patient with multiple antibiotic courses - at [facility] for 2 weeks, home for ~2 days, then at [place] for ~1 week, home for 1 day, then here. Chronic Anemia; h/o iron deficiency anemia hgb 7.7 on admission iron studies from 05/12/2023 consistent with iron deficiency anemia monitor H&H. Transfuse for hgb < 7 s/p 2 uPRBC (08/23) hgb 7.7 - > 10.4 (08/25) JANET on CKD3 Nephrology consulted IV fluids dc'd 07/25 Continue to monitor renal function Cr improving; 2.29 -> 1.93 (08/25) Colon Cancer on chemotherapy CT abdomen (08/23): liver with hypodense lesion posterior segment right hepatic lobe measuring approximately 3 x 2.4 cm, progressed in comparison with prior study Follows oncologist in [place]; on chemotherapy Chronic systolic CHF Hypertension Hyperlipidemia confirm home medications, restart as appropriate Severe protein-calorie malnutrition Continue supplemental nutrition with ensure BID Encourage PO intake VTE: SCD Code: Full Dispo: Home Pending further improvement; cx results
[2023-08-25 10:32] LABS: ALT/SGPT < 10 U/L (16-61); AST/SGOT 24 U/L (15-37); Albumin 1.6 g/dL (3.4-5.0); Alkaline Phosphatase 63 U/L (45-117); BUN Blood Urea Nitrogen 20 mg/dL (7-18); Bicarbonate 22 mEq/L (21-32); Bilirubin Total 0.4 mg/dL (0.2-1.0); Glomerular Filtration Rate 39 ml/min (=/>90); Glucose Level 93 mg/dL (74-106); Magnesium 1.9 mg/dL (1.6-2.4); Potassium 5.6 mEq/L (3.5-5.1); Protein, Total 5.6 g/dL (6.4-8.2); Sodium Level 139 mEq/L (136-145)
--- NOTE | 2023-08-25 11:38 | P.PN ---
Nephrology note (S) Pt remains in stable condition, no distress noted, denies any abd pain, denies dyspnea (O) Vitals, medications, blood work and imaging reviewed in the chart General: Chronically ill appearing, frail HEENT: Atraumatic, sclera anicteric, not on O2 Neck: Supple Respiratory: Clear to auscultation bilaterally mostly Cardiovascular: No edema, Regular rate/rhythm Gastrointestinal: Non-distended, surgical scars, ostomy/stoma, b/l nephrostomies Musculoskeletal: Muscle mass loss Integumentary: No rashes Neurological: Normal speech, awake, alert, no tremors Laboratory Data (last 24 hrs) Reviewed in the EMR Conclusions/Impression: Recent Stage III ARF earlier in the mo with Cr level > 4 mg/dl before downward trending to the mid to low 2 mg/dl range where levels currently are. Numerous prior JANET episodes this year. Underlying CKD NOS. No current hydro, b/l nephrostomies draining, although Lt > Rt -Metab profile stable -D/c maintenance IVF Systolic CHF, chronic. Dilated cardiomyopathy, severe -No current gross fluid overload but will d/c IVF. Pt will not tolerate other HF meds such as NIALL inhibitors due to renal insufficiency and freq soft/low BP. Scheduled diuretics not needed at this time Abnormal findings in urine -Sample shows lots of epithelials, chronic abnormal findings with nephrostomies, recent IV Abx treatment last mo at [facility] for [facility]. Harshil Miranda MD, LUIS
[2023-08-26 03:49] LABS: Absolute Lymphocytes (CBC) 0.5 K/uL (0.7-4.9); Hematocrit 29.3 % (39.6-49.0); Lymphocytes % 9.3 % (15.3-44.8); MCV 82.1 fL (80-100); MPV 6.2 fL (7.6-11.3); Platelets 267 thou/uL (152-406); RBC Red Blood Cell Count 3.57 M/uL (4.33-5.43)
[2023-08-26 04:12] LABS: AST/SGOT 15 U/L (15-37); Albumin 1.6 g/dL (3.4-5.0); Alkaline Phosphatase 63 U/L (45-117); BUN Blood Urea Nitrogen 19 mg/dL (7-18); Bicarbonate 25 mEq/L (21-32); Bilirubin Total 0.3 mg/dL (0.2-1.0); Glomerular Filtration Rate 42 ml/min (=/>90); Glucose Level 95 mg/dL (74-106); Magnesium 1.7 mg/dL (1.6-2.4); Potassium 4.7 mEq/L (3.5-5.1); Protein, Total 5.9 g/dL (6.4-8.2); Sodium Level 136 mEq/L (136-145)
[2023-08-26 04:17] LABS: ALT/SGPT < 6 U/L (16-61)
[2023-08-26] MEDS: carvediloL 3.125 MG TAB PO SCH ×3 (06:00→18:23)
[2023-08-26] MEDS: MORPHINE 2 MG/ML SYR IV PRN ×3 (06:37→18:24)
[2023-08-26] MEDS: HYDROMORPHONE ORAL 2 MG TAB PO PRN ×2 (08:25→20:36)
[2023-08-26] MEDS: ENSURE ENLIVE 237 ML CAN PO SCH ×2 (08:25→21:00)
[2023-08-26] MEDS: Meropenem 1,000 MG in NA CHLORIDE 0.9% 100 ML IV SCH ×2 (08:25→20:37)
[2023-08-26] MEDS: MAGNESIUM CHLORIDE 64 MG TAB PO SCH ×2 (08:34→21:00)
--- NOTE | 2023-08-26 08:58 | P.PN ---
Date of Service: 08/26/23 Subjective: Feels ~same as yesterday No new / worsening problems pending cx results afebrile ROS: 10 point ROS as noted above, otherwise negative Physical Exam: GEN: Alert, oriented, cachectic HEENT: Normal conjunctiva, sclera anicteric CV: Regular rate and rhythm, no edema Pulm: Nonlabored respirations on room air, clear bilaterally ABD: Soft, mild abdominal discomfort, nondistended Neuro: Normal speech, normal affect Right subclavian port-a-cath in place b/l nephrostomy's in place, clear light jennifer urine in bag colostomy bag in place vitals reviewed Problem List: Complicated UTI with b/l nephrostomy tubes Chronic Anemia; h/o iron deficiency anemia JANET on CKD3 Colon Cancer on chemotherapy Chronic systolic CHF Hypertension Hyperlipidemia h/o ESBL Severe protein-calorie malnutrition Complicated UTI with b/l nephrostomy tubes h/o ESBL E. coli CT abdomen (08/23): abnormal wall thickening of the procedural rectosigmoid colon with central area of low density suspicious for neoplastic process. Nephrostomy tubes in place with no evidence of hydronephrosis Retroperitoneal lymphadenopathy. Left renal cyst. Small trace bilateral pleural effusions and progression pulmonary nodules. Mild haziness within the skin/subcutaneous tissue perhaps suggesting the possibility of cachexia and/or anasarca Reports ~1 week of purulent drainage from urethra. Discharged from [facility] on 08/14 - admitted for 2 weeks due to sepsis -UTI / concern for rectal perforation/abscess. managed medically, completed 2 week antibiotics on 08/14 prior to discharge home. 08/24 patient hospitalized at [place] after being discharged from [facility] on 08/[address] Hernandez (admitted 08/17 - discharged 08/22) UA grossly positive /concerning for UTI - reportedly obtained from urethral straight cath urine cx(08/23): +4GNR ID consulted Continue empiric Merrem (08/23-) switched from zosyn 08/23 given recent h/o ESBL E. coli x2 weeks total abx treatment per ID afebrile, no leukocytosis PRN pain medication uncertain if pain is more related to cancer vs cancer +UTI patient with multiple antibiotic courses - at [facility] for 2 weeks, home for ~2 days, then at [place] for ~1 week, home for 1 day, then here. Chronic Anemia; h/o iron deficiency anemia hgb 7.7 on admission iron studies from 05/12/2023 consistent with iron deficiency anemia monitor H&H. Transfuse for hgb < 7 s/p 2 uPRBC (08/23) hgb 10.4 - > 9.6 (08/26) JANET on CKD3 Nephrology consulted IV fluids dc'd 07/25 Continue to monitor renal function improving Colon Cancer on chemotherapy CT abdomen (08/23): liver with hypodense lesion posterior segment right hepatic lobe measuring approximately 3 x 2.4 cm, progressed in comparison with prior study Follows oncologist in [place]; on chemotherapy Chronic systolic CHF Hypertension Hyperlipidemia confirm home medications, restart as appropriate Severe protein-calorie malnutrition Continue supplemental nutrition with ensure BID Encourage PO intake VTE: SCD Code: Full Dispo: Home Pending further improvement; cx results
[2023-08-26] MEDS: DOCUSATE NA 100 MG CAP PO SCH ×2 (09:00→20:37)
--- NOTE | 2023-08-26 14:23 | EKG ---
Test Date: 2023-08-23 Test Time: 00:16:31 [employer] Installer: MEASUREMENT RESULTS: Intervals: Rate: 128 VA: 152 QRSD: 84 QT: 304 QTc: 443 [place]: P: 69 VA: 152 QRS: -27 T: 89 INTERPRETIVE STATEMENTS: Sinus tachycardia with occasional premature ventricular complexes Nonspecific T wave abnormality Abnormal ECG Compared to ECG 08/01/2023 21:57:14 Ventricular premature complex(es) now present Possible ischemia no longer present T-wave abnormality still present Electronically Signed On 08-26-23 14:12:26 [employer] SPRAYER by Mayur Birch
--- NOTE | 2023-08-26 18:25 | PN ---
Subjective: The patient seen in room [address] [facility]. The patient is alert, rui ke, and comfortable. Denies any headaches, nausea, vomiting. He continues to stay in stable conditi on. Currently, he denies any shortness of breath. Objective: VITAL SIGNS: Reviewed, stable. Lungs: Clear to auscultation. Abdomen: Soft. Extremities: No edema. The patient is quite cachectic and seems to have had some muscle loss. Labs: Reviewed. Assessment And Plan: JANET, stabilizing, the patient's creatinine is improved. Albumin level is quite low. Continue encouraging p.o. intake and protein. At this point, the patient is getting now antib iotics. He has had nephrostomies in the past and has had blockage. Hydronephrosis is currently stab ilized and his creatinine is improving. Continue with gentle IV fluids when needed. At this point, the patient seems to be close to euvolemic. Encourage p.o. intake. Will need outpatient followup. The patient denies any problems currently. He seems to have somewhat of an understanding of his kidn ey problems. States that he has been following with doctors in [place]. Denies any new questions cu rrently. Has been evaluated by Dr. Crisostomo and Dr. Miranda. /MICHEALL Voice ID: [id number] Report ID: [id number]
[2023-08-26] MEDS: HYDROMORPHONE ORAL 4 MG TAB PO PRN (20:36)
[2023-08-26] MEDS ORDERED: NA CHLORIDE 0.9% 100 ML ONE (20:42)
[2023-08-27] MEDS: MORPHINE 2 MG/ML SYR IV PRN ×3 (01:29→17:03)
--- NOTE | 2023-08-27 05:42 | P.PN ---
Date of Service: 08/27/23 Urine culture shows a second ESBL E. coli organism. Patient with bilateral nephrostomy tubes. Already on meropenem. No white blood cell count and no fever. Will report to a.m. hospitalist team.
[2023-08-27] MEDS: carvediloL 3.125 MG TAB PO SCH ×2 (06:00→18:00)
[2023-08-27] MEDS: DOCUSATE NA 100 MG CAP PO SCH ×2 (08:05→20:32)
[2023-08-27] MEDS: Meropenem 1,000 MG in NA CHLORIDE 0.9% 100 ML IV SCH ×2 (08:05→20:32)
[2023-08-27] MEDS: ENSURE ENLIVE 237 ML CAN PO SCH ×2 (08:06→20:33)
--- NOTE | 2023-08-27 08:12 | P.PN ---
Date of Service: 08/27/23 Subjective: Feeling a little better today no new / worsening problems abdominal pain improving pyuria via urethra he reported on admission has improved per patient's report afebrile ROS: 10 point ROS as noted above, otherwise negative Physical Exam: GEN: Alert, oriented HEENT: Normal conjunctiva, sclera anicteric CV: Regular rate and rhythm, no edema Pulm: Nonlabored respirations on room air, clear bilaterally ABD: Soft, mild abdominal discomfort, nondistended Neuro: Normal speech, normal affect Right subclavian port-a-cath in place b/l nephrostomy's in place, clear light jennifer urine in bag colostomy bag in place vitals reviewed Problem List: Complicated UTI with b/l nephrostomy tubes ESBL E. Coli Chronic Anemia; h/o iron deficiency anemia JANET on CKD3 Colon Cancer on chemotherapy Chronic systolic CHF Hypertension Hyperlipidemia Severe protein-calorie malnutrition Complicated UTI, with b/l nephrostomy tubes ESBL E. Coli Reports ~1 week of purulent drainage from urethra. Discharged from [facility] on 08/14 - admitted for 2 weeks due to sepsis -UTI / concern for rectal perforation/abscess. managed medically, completed 2 week antibiotics on 08/14 prior to discharge home. 08/24 patient hospitalized at [place] after being discharged from [facility] on 08/[address] Hernandez (admitted 08/17 - discharged 08/22) UA grossly positive /concerning for UTI - reportedly obtained from urethral straight cath in ED Continue Merrem (08/23-) switched from zosyn 08/23 given recent h/o ESBL E. coli urine cx(08/23): ESBL E. coli ID consulted x2 weeks total abx per ID; PO vs PICC - will confirm with ID afebrile, no leukocytosis PRN pain medication uncertain if pain is more related to cancer vs cancer +UTI patient with multiple antibiotic courses - at [facility] for 2 weeks, home for ~2 days, then at [place] for ~1 week, home for 1 day, then here. Chronic Anemia; h/o iron deficiency anemia hgb 7.7 on admission ; iron studies from 05/12/2023 consistent with iron deficiency anemia s/p 2 uPRBC (08/23) hgb stable. 10.4 - > 9.6 (08/26) JANET on CKD3 improved with IVF'; now dc'd 07/25 Nephrology consulted Continue to monitor renal function stable Colon Cancer on chemotherapy CT abdomen (08/23): liver with hypodense lesion posterior segment right hepatic lobe measuring approximately 3 x 2.4 cm, progressed in comparison with prior study Follows oncologist in [place]; on chemotherapy Chronic systolic CHF Hypertension Hyperlipidemia confirm home medications, restart as appropriate Severe protein-calorie malnutrition Continue supplemental nutrition with ensure BID Encourage PO intake VTE: SCD Code: Full Dispo: Home, ~1-2 days Pending further abx rec. wean iv pain meds
[2023-08-27] MEDS: MAGNESIUM CHLORIDE 64 MG TAB PO SCH ×2 (08:18→20:32)
[2023-08-27] MEDS: HYDROMORPHONE ORAL 4 MG TAB PO PRN ×2 (13:52→20:34)
[2023-08-27] MEDS: HYDROMORPHONE ORAL 2 MG TAB PO PRN ×2 (13:52→20:33)
[2023-08-27] MEDS: FENTANYL 50 MCG/PATCH TD SCH (17:08)
[2023-08-28] MEDS: carvediloL 3.125 MG TAB PO SCH ×2 (05:35→18:00)
[2023-08-28] MEDS: HYDROMORPHONE ORAL 4 MG TAB PO PRN ×2 (08:31→23:24)
[2023-08-28] MEDS: DOCUSATE NA 100 MG CAP PO SCH ×2 (08:32→16:26)
[2023-08-28] MEDS: Meropenem 1,000 MG in NA CHLORIDE 0.9% 100 ML IV SCH ×2 (08:32→20:15)
--- NOTE | 2023-08-28 08:42 | P.PN ---
Date of Service: 08/28/23 Chief Complaint: Abdominal pain Subjective: Patient in bed, in no apparent distress. + abdominal pain. No acute events reported over the weekend. Physical Examination Temp Pulse Resp BP Pulse Ox 98.5 F 88 16 94/58 L 96 08/28/23 04:00 08/28/23 05:35 08/28/23 04:00 08/28/23 05:35 08/28/23 04:00 General: Alert, In no apparent distress, Oriented x3. Cachectic HEENT: Atraumatic, Normocephalic Respiratory: Normal air movement, Diminished at bases. On room air. Cardiovascular: No edema. Tachycardia. Port-a-cath right chest. Gastrointestinal: Abdominal tenderness. Colostomy x 2. Integumentary: No rashes Neurological: Normal speech, Normal tone, Normal affect Urinary: Bilateral nephrostomy tubes Laboratory Data - Reviewed Microbiology Data - Reviewed Imagings Data: - Reviewed Medications List - Reviewed Assessment and plan Problem List Complicated Urinary Tract Infection, bilateral nephrostomy tubes Colon Cancer on chemotherapy Hypertension Hyperlipidemia Anemia in chronic illness Severe protein-calorie malnutrition Complicated Urinary Tract Infection - CT abdomen pevlis wo contrast 08/23: "abnormal wall thickening of the procedural rectosigmoid colon with central area of low density suspicious for neoplastic process. There is an close proximity/contiguous to the posterior urinary bladder wall. Bilateral percutaneous nephrostomy tubes in place with no evidence of hydronephrosis. Retroperitoneal lymphadenopathy. Left renal cyst. Small trace bilateral pleural effusions and progression pulmonary nodules. Mild haziness within the skin/subcutaneous tissue perhaps suggesting the possibility of cachexia and/or anasarca. Grossly the unopacified liver demonstrates hypodense lesion posterior segment right hepatic lobe measuring approximately 3 x 2.4 cm, progressed in comparison with prior study. " - Bilateral nephrostomy tubes - Urine culture 08/23: Escherichia coli ESBL -Zosyn switched to meropenem on 08/23 Recommendations - Due to complicated UTI with bilateral nephrostomy tubes and immunocompromised state, recommend continuing antibiotic therapy for 14 days. - Urine culture growing E.coli ESBL; continue carbapenem. Consider switch to Ertapenem IV Q24H. - Supplemental nutrition - JANET : Nephrology following. Renally dose medications. - Monitor WBC and fever trends - Pain management per primary team - Colon cancer on chemotherapy: patient to follow up with his Oncologist in [place] Case discussed with Alicia Valle
[2023-08-28 08:46] LABS: Absolute Lymphocytes (CBC) 0.5 K/uL (0.7-4.9); Hematocrit 30.2 % (39.6-49.0); Lymphocytes % 10.8 % (15.3-44.8); MPV 6.6 fL (7.6-11.3); Platelets 238 thou/uL (152-406); RBC Red Blood Cell Count 3.69 M/uL (4.33-5.43)
[2023-08-28] MEDS: ENSURE ENLIVE 237 ML CAN PO SCH ×2 (09:00→20:16)
[2023-08-28 09:05] LABS: AST/SGOT 14 U/L (15-37); Albumin 1.7 g/dL (3.4-5.0); Alkaline Phosphatase 65 U/L (45-117); BUN Blood Urea Nitrogen 21 mg/dL (7-18); Bicarbonate 29 mEq/L (21-32); Bilirubin Total 0.3 mg/dL (0.2-1.0); Glomerular Filtration Rate 44 ml/min (=/>90); Glucose Level 117 mg/dL (74-106); Magnesium 1.6 mg/dL (1.6-2.4); Potassium 4.6 mEq/L (3.5-5.1); Protein, Total 6.2 g/dL (6.4-8.2); Sodium Level 137 mEq/L (136-145)
[2023-08-28 09:08] LABS: ALT/SGPT < 6 U/L (16-61)
[2023-08-28] MEDS: MORPHINE 2 MG/ML SYR IV PRN ×2 (10:06→20:22)
--- NOTE | 2023-08-28 11:16 | P.PN ---
Date of Service: 08/28/23 Subjective: Feels ~same as yesterday no new / worsening problems needs Midline for IV antibiotics afebrile ROS: 10 point ROS as noted above, otherwise negative Physical Exam: GEN: Alert, oriented HEENT: Normal conjunctiva, sclera anicteric CV: Regular rate and rhythm, no edema Pulm: Nonlabored respirations on room air, clear bilaterally ABD: Soft, mild abdominal discomfort, nondistended Neuro: Normal speech, normal affect Right subclavian port-a-cath in place b/l nephrostomy's in place, clear light jennifer urine in bag colostomy bag in place vitals reviewed Problem List: Complicated UTI with b/l nephrostomy tubes ESBL E. Coli Chronic Anemia; h/o iron deficiency anemia JANET on CKD3 Colon Cancer on chemotherapy Chronic systolic CHF Hypertension Hyperlipidemia Severe protein-calorie malnutrition Complicated UTI, with b/l nephrostomy tubes ESBL E. Coli Reports ~1 week of purulent drainage from urethra. Discharged from [facility] on 08/14 - admitted for 2 weeks due to sepsis -UTI / concern for rectal perforation/abscess. managed medically, completed 2 week antibiotics on 08/14 prior to discharge home. 08/24 patient hospitalized at [facility] after being discharged from [facility] on 08/[address] Hernandez (admitted 08/17 - discharged 08/22) UA grossly positive /concerning for UTI - reportedly obtained from urethral straight cath in ED Continue Merrem (08/23-) switched from zosyn 08/23 given recent h/o ESBL E. coli urine cx(08/23): ESBL E. coli ID consulted x2 weeks total IV antbiotics per ID; Needs midline prior to discharge Discussed with nephrology, mic with midline public health social worker state IV antibiotics will be out of pocket expense afebrile, no leukocytosis PRN pain medication uncertain if pain is more related to cancer vs cancer +UTI patient with multiple antibiotic courses - at [facility] for 2 weeks, home for ~2 days, then at [facility] for ~1 week, home for 1 day, then here. Chronic Anemia; h/o iron deficiency anemia hgb 7.7 on admission; iron studies from 05/12/2023 consistent with iron deficiency anemia s/p 2 uPRBC (08/23) hgb stable. Monitor H&H. Transfuse for hgb < 7. JANET on CKD3 improved with IVF; now dc'd 07/25 Nephrology consulted Continue to monitor renal function stable Colon Cancer on chemotherapy CT abdomen (08/23): liver with hypodense lesion posterior segment right hepatic lobe measuring approximately 3 x 2.4 cm, progressed in comparison with prior study Follows oncologist in [place]; on chemotherapy Chronic systolic CHF Hypertension Hyperlipidemia confirm home medications, restart as appropriate Severe protein-calorie malnutrition Continue supplemental nutrition with ensure BID Encourage PO intake VTE: SCD Code: Full Dispo: Home, ~1 day Pending Midline, wean iv pain meds
[2023-08-28] MEDS: MAGNESIUM CHLORIDE 64 MG TAB PO SCH ×3 (16:30→21:00)
--- NOTE | 2023-08-28 21:45 | P.PN ---
Date of Service: 08/28/23 Vital Signs Temp Pulse Resp BP Pulse Ox 97.9 F 87 17 101/69 98 08/28/23 16:00 08/28/23 16:00 08/28/23 20:22 08/28/23 16:00 08/28/23 20:22 Medications Acetaminophen (Acetaminophen 500 Mg Tab) 500 mg PO Q6H PRN PRN Reason: Pain scale 2-4 (Mild) Carvedilol (Carvedilol 3.125 Mg Tab) 3.125 mg PO BID 6AM 6PM [facility] Last Admin: 08/28/23 18:00 Dose: Not Given Docusate Sodium (Docusate Na 100 Mg Cap) 100 mg PO BID [facility] Last Admin: 08/28/23 16:26 Dose: 100 mg Fentanyl (Fentanyl 50 Mcg/Patch) 50 mcg TD Q72H [facility] Last Admin: 08/27/23 17:08 Dose: 50 mcg Hydromorphone HCl (Hydromorphone Oral 4 Mg Tab) 4 mg PO Q6H PRN PRN Reason: Pain scale 5-7 (Moderate) Last Admin: 08/28/23 08:31 Dose: 4 mg Hydromorphone HCl (Hydromorphone Oral 2 Mg Tab) 2 mg PO Q6H PRN PRN Reason: Pain scale 5-7 (Moderate) Last Admin: 08/27/23 20:33 Dose: 2 mg Meropenem 1,000 mg/ Sodium (Chloride) 100 mls @ 200 mls/hr IV Q12HR [facility] Last Admin: 08/28/23 20:15 Dose: 100 mls Magnesium Chloride (Magnesium Chloride 64 Mg Tab) 64 mg PO BID [facility] Last Admin: 08/28/23 20:16 Dose: 64 mg Morphine Sulfate (Morphine 2 Mg/Ml Syr) 2 mg IV Q8H PRN PRN Reason: Pain scale 8-10 (Severe) Last Admin: 08/28/23 20:22 Dose: 2 mg Nutritional Formula (Ensure Enlive 237 Ml Can) 237 ml PO BID [facility] Last Admin: 08/28/23 20:16 Dose: 237 ml Ondansetron HCl (Ondansetron 4 Mg/2 Ml Vial) 4 mg IV Q8H PRN PRN Reason: NAUSEA / VOMITING Assessment/ Plan: Nephrology No dyspnea No chest pain No acute events overnight Vitals, medications, blood work and imaging reviewed in the chart General: In no apparent distress, Oriented x3, Cooperative HEENT: Atraumatic Neck: Supple Respiratory: Clear to auscultation bilaterally Cardiovascular: No edema, Regular rate/rhythm Gastrointestinal: Non-distended Musculoskeletal: No clubbing, No contractures Integumentary: No rashes, No cyanosis Neurological: Normal speech Laboratory Data (last 24 hrs) 08/23/23 08/23/23 08/23/23 01:02 01:02 01:02 WBC 5.40 Hgb 7.7 L Hct 23.0 L Plt Count 446 H PT 12.6 H INR 1.15 Sodium 136 Potassium 4.5 BUN 28 H Creatinine 2.29 H Glucose 147 H Magnesium 1.4 L Total Bilirubin 0.2 AST 13 L ALT < 6 L Alkaline Phosphatase 70 Lipase 17 Imagings Data: EXAM DESCRIPTION: CT - Abdomen Pelvis Wo Contrast - 08/23/2023 6:38 am CLINICAL HISTORY: 58 years, Male, ABD PAIN COMPARISON: 08/01/2023 TECHNIQUE: Noncontrast images of the abdomen and pelvis were performed utilizing 5 mm slice thickness at 5 mm interval reconstruction from the lung bases to the ischial tuberosities. In addition multiplanar reformats in the coronal and sagittal plane were obtained and reviewed. An individualized dose optimization technique, Automated Exposure Control, was utilized for the performed procedure. FINDINGS: Lung bases: The lung bases again demonstrated presence of the multiple bilateral pulmonary nodules have slightly progressed in comparison specifically referenced nodule within the left lower lung now measuring 8.6 mm on axial image 5/109, previously measured 8 mm. Small trace bilateral pleural effusions Liver: Grossly the unopacified liver demonstrates hypodense lesion posterior segment right hepatic lobe measuring approximately 3 x 2.4 cm, progressed in comparison with prior study. Gallbladder: The gallbladder demonstrates presence of layering high density structures corresponding to cholelithiasis. No biliary duct dilatation. Adrenal glands: Grossly the unopacified adrenal glands demonstrate to be normal. Pancreas: Grossly the unopacified pancreas demonstrate to be normal. Spleen: The spleen demonstrate to be normal. Kidneys: Both kidneys demonstrate a presence of percutaneous nephrostomy tubes in place. There is no evidence for significant nephrolithiasis and/or hydronephrosis. There is a cyst within the midpole left kidney measuring 1.1 cm image 30. GI: Grossly the unopacified stomach and small bowel demonstrate to be within normal limits. No evidence for bowel dilatation and/or free air. There is a right lower quadrant area of communication with the cecum/colostomy. There is fecal residue. There is a left lower quadrant colostomy. The appendix is unremarkable. Abnormal wall thickening of the procedural rectosigmoid colon with central area of low density suspicious for neoplastic process. There is an close proximity/contiguous to the posterior urinary bladder wall. : The urinary bladder demonstrate abnormal posterior wall thickening related to abnormal rectosigmoid colon. Genitalia: The prostate gland is normal. Abdominal aorta: The aorta demonstrate minimal peripheral atheromatous plaque. Retroperitoneum: There are retroperitoneal lymph node largest bulk inferior left perirenal aspect measuring 2.1 x 2.1 cm on image 39. There is no evidence for ascites. Bones: The bony structures demonstrate to be within normal limits. Soft tissues: There is haziness within the skin/subcutaneous tissue perhaps suggesting the possibility of cachexia and/or anasarca. IMPRESSION: Abnormal wall thickening of the procedural rectosigmoid colon with central area of low density suspicious for neoplastic process. There is an close proximity/contiguous to the posterior urinary bladder wall. Bilateral percutaneous nephrostomy tubes in place with no evidence for hydronephrosis. Retroperitoneal lymphadenopathy. Cholelithiasis. Left renal cyst. No follow-up is recommended. Small trace bilateral pleural effusions and progression pulmonary nodules. Mild haziness within the skin/subcutaneous tissue perhaps suggesting the possibility of cachexia and/or anasarca. Grossly the unopacified liver demonstrates hypodense lesion posterior segment right hepatic lobe measuring approximately 3 x 2.4 cm, progressed in comparison with prior study. EXAM DESCRIPTION: RAD - Chest Single View - 08/23/2023 12:18 am CLINICAL HISTORY: 58 years, Male, COUGH COMPARISON: 12/08/2022. FINDINGS: 1 views of the chest was obtained. Prior films were compared. The cardiomediastinal silhouette demonstrate to be within normal limits. The heart is not enlarged. The thoracic aorta is unremarkable. The pulmonary vasculature is normal in distribution. The costophrenic angles demonstrate to be sharp.. There are multiple bilateral pulmonary nodules suspicious for metastatic disease. There is a right IJ venous Port-A-Cath placed. There is no evidence for pneumothorax. The rest of the soft tissue and bony structures are unremarkable. IMPRESSION: Multiple bilateral pulmonary nodules suspicious for metastatic disease. Conclusions/Impression: Stage I JANET in the setting of hypovolemia CKD III with Proteinuria -No NSAIDs -Continue IVF Hypomagnesemia -Continue SloMag BID HTN with CKD/ CHF -Continue Coreg Systolic CHF, chronic -Daily weight Hypoalbuminemia -Recommend protein supplementation Anemia in chronic illness Hx iron deficiency -Monitor H&H -Transfuse PRBC prn Acute Cystitis with Hematuria -Follow up culture -Continue abx Hospitalist note reviewed Case reviewed with Dr. Crisostomo
[2023-08-29] MEDS: carvediloL 3.125 MG TAB PO SCH ×2 (04:37→17:05)
[2023-08-29] MEDS: MORPHINE 2 MG/ML SYR IV PRN ×3 (04:40→21:23)
[2023-08-29] MEDS: DOCUSATE NA 100 MG CAP PO SCH ×2 (07:41→21:00)
[2023-08-29] MEDS: ENSURE ENLIVE 237 ML CAN PO SCH ×2 (07:42→21:00)
[2023-08-29] MEDS: MAGNESIUM CHLORIDE 64 MG TAB PO SCH ×2 (07:42→21:00)
--- NOTE | 2023-08-29 07:54 | P.PN ---
Date of Service: 08/29/23 Chief Complaint: Abdominal pain Subjective: No new changes. (+) abdominal pain Denies any nausea or vomiting. Reports appetite is good. Continue current plan of care. Physical Examination Temp Pulse Resp BP Pulse Ox 97.7 F 59 16 113/63 98 08/29/23 04:00 08/29/23 04:37 08/29/23 04:40 08/29/23 04:00 08/29/23 04:40 General: Alert, In no apparent distress, Oriented x3. Cachectic HEENT: Atraumatic, Normocephalic Respiratory: Normal air movement, Diminished at bases. On room air. Cardiovascular: No edema. Tachycardia. Port-a-cath right chest. Gastrointestinal: Abdominal tenderness. Colostomy x 2. Integumentary: No rashes Neurological: Normal speech, Normal tone, Normal affect Urinary: Bilateral nephrostomy tubes Laboratory Data - Reviewed Microbiology Data - Reviewed Imagings Data: - Reviewed Medications List - Reviewed Assessment and plan Problem List Complicated Urinary Tract Infection, bilateral nephrostomy tubes Colon Cancer on chemotherapy Hypertension Hyperlipidemia Anemia in chronic illness Severe protein-calorie malnutrition Complicated Urinary Tract Infection - CT abdomen pevlis wo contrast 08/23: "abnormal wall thickening of the procedural rectosigmoid colon with central area of low density suspicious for neoplastic process. There is an close proximity/contiguous to the posterior urinary bladder wall. Bilateral percutaneous nephrostomy tubes in place with no evidence of hydronephrosis. Retroperitoneal lymphadenopathy. Left renal cyst. Small trace bilateral pleural effusions and progression pulmonary nodules. Mild haziness within the skin/subcutaneous tissue perhaps suggesting the possibility of cachexia and/or anasarca. Grossly the unopacified liver demonstrates hypodense lesion posterior segment right hepatic lobe measuring approximately 3 x 2.4 cm, progressed in comparison with prior study. " - Bilateral nephrostomy tubes - Urine culture 08/23: Escherichia coli ESBL - Started on meropenem 08/23 Recommendations - Due to complicated UTI with bilateral nephrostomy tubes and immunocompromised state, recommend continuing antibiotic therapy for 14 days (08/23 to 09/06) - Urine culture growing E.coli ESBL; continue carbapenem. Consider switch to Ertapenem IV Q24H. - Supplemental nutrition - Monitor WBC and fever trends - Pain management per primary team - Colon cancer on chemotherapy: patient to follow up with his Oncologist in [place] Case discussed with Alicia Valle
[2023-08-29] MEDS: HYDROMORPHONE ORAL 2 MG TAB PO PRN ×2 (08:02→16:49)
[2023-08-29] MEDS: HYDROMORPHONE ORAL 4 MG TAB PO PRN ×2 (08:02→16:49)
[2023-08-29] MEDS: Meropenem 1,000 MG in NA CHLORIDE 0.9% 100 ML IV SCH ×2 (08:03→21:23)
--- NOTE | 2023-08-29 14:02 | P.PN ---
Subjective Date of Service: 08/29/23 Chief Complaint: Abdominal pain Patient denies any new complaint. He has decreased oral intake. No issues overnight. Physical Examination - Vital Signs Temperature: 97.5 F Blood Pressure: 105/70 Pulse: 91 Respirations: 16 Pulse Ox (%): 97 Assessment And Plan - Plan Physical Exam: GEN: Alert, oriented CV: Regular rate and rhythm, no edema Pulm: Nonlabored respirations on room air, clear bilaterally ABD: Soft, mild abdominal discomfort, nondistended, colostomy bags in place Neuro: Normal speech, normal affect Right subclavian port-a-cath in place B/l nephrostomy's in place, clear light jennifer urine in bag vitals reviewed Problem List: Complicated UTI with b/l nephrostomy tubes ESBL E. Coli Chronic Anemia; h/o iron deficiency anemia JANET on CKD3 Colon Cancer on chemotherapy Chronic systolic CHF Hypertension Hyperlipidemia Severe protein-calorie malnutrition Complicated UTI, with b/l nephrostomy tubes ESBL E. Coli Reports ~1 week of purulent drainage from urethra. Discharged from [facility] on 08/14 - admitted for 2 weeks due to sepsis -UTI / concern for rectal perforation/abscess. managed medically, completed 2 week antibiotics on 08/14 prior to discharge home. 08/24 patient hospitalized at [facility] after being discharged from [facility] on 08/[address] Hernandez (admitted 08/17 - discharged 08/22) UA shows UTI - reportedly obtained from urethral straight cath in ED Continue Merrem (08/23-) switched from zosyn 08/23 given ESBL E. coli urine cx(08/23): ESBL E. coli ID seen patient and recommended 2 weeks of IV meropenem Patient opted for IV antibiotics at home with home health. afebrile, no leukocytosis PRN pain medication Chronic Anemia; h/o iron deficiency anemia hgb 7.7 on admission; iron studies from 05/12/2023 consistent with iron deficiency anemia s/p 2 uPRBC (08/23) hgb stable. Monitor H&H. Transfuse for hgb < 7. JANET on CKD3 improved with IVF. Off IVF Nephrology is following Continue to monitor renal function. Colon Cancer on chemotherapy CT abdomen (08/23): liver with hypodense lesion posterior segment right hepatic lobe measuring approximately 3 x 2.4 cm, progressed in comparison with prior study Follows oncologist in [place]; on chemotherapy Chronic systolic CHF Hypertension Hyperlipidemia Continue home medications. Severe protein-calorie malnutrition/Anorexia Continue supplemental nutrition with ensure BID Encourage PO intake Start Remeron to help improve his mood and appetite. DVT prophylaxis: SCD.
--- NOTE | 2023-08-29 19:41 | P.PN ---
Date of Service: 08/29/23 Vital Signs Temp Pulse Resp BP Pulse Ox 97.5 F 87 16 111/72 97 08/29/23 16:00 08/29/23 16:00 08/29/23 16:00 08/29/23 16:00 08/29/23 16:00 Medications Acetaminophen (Acetaminophen 500 Mg Tab) 500 mg PO Q6H PRN PRN Reason: Pain scale 2-4 (Mild) Carvedilol (Carvedilol 3.125 Mg Tab) 3.125 mg PO BID 6AM 6PM [facility] Last Admin: 08/29/23 17:05 Dose: Not Given Docusate Sodium (Docusate Na 100 Mg Cap) 100 mg PO BID [facility] Last Admin: 08/29/23 07:41 Dose: Not Given Fentanyl (Fentanyl 50 Mcg/Patch) 50 mcg TD Q72H [facility] Last Admin: 08/27/23 17:08 Dose: 50 mcg Hydromorphone HCl (Hydromorphone Oral 4 Mg Tab) 4 mg PO Q6H PRN PRN Reason: Pain scale 5-7 (Moderate) Last Admin: 08/29/23 16:49 Dose: 4 mg Hydromorphone HCl (Hydromorphone Oral 2 Mg Tab) 2 mg PO Q6H PRN PRN Reason: Pain scale 5-7 (Moderate) Last Admin: 08/29/23 16:49 Dose: 2 mg Meropenem 1,000 mg/ Sodium (Chloride) 100 mls @ 200 mls/hr IV Q12HR [facility] Last Admin: 08/29/23 08:03 Dose: 100 mls Magnesium Chloride (Magnesium Chloride 64 Mg Tab) 64 mg PO BID [facility] Last Admin: 08/29/23 07:42 Dose: Not Given Morphine Sulfate (Morphine 2 Mg/Ml Syr) 2 mg IV Q8H PRN PRN Reason: Pain scale 8-10 (Severe) Last Admin: 08/29/23 12:40 Dose: 2 mg Nutritional Formula (Ensure Enlive 237 Ml Can) 237 ml PO BID [facility] Last Admin: 08/29/23 07:42 Dose: Not Given Ondansetron HCl (Ondansetron 4 Mg/2 Ml Vial) 4 mg IV Q8H PRN PRN Reason: NAUSEA / VOMITING Assessment/ Plan: Nephrology No dyspnea No chest pain No acute events overnight Vitals, medications, blood work and imaging reviewed in the chart General: In no apparent distress, Oriented x3, Cooperative HEENT: Atraumatic Neck: Supple Respiratory: Clear to auscultation bilaterally Cardiovascular: No edema, Regular rate/rhythm Gastrointestinal: Non-distended Musculoskeletal: No clubbing, No contractures Integumentary: No rashes, No cyanosis Neurological: Normal speech Laboratory Data (last 24 hrs) 08/23/23 08/23/23 08/23/23 01:02 01:02 01:02 WBC 5.40 Hgb 7.7 L Hct 23.0 L Plt Count 446 H PT 12.6 H INR 1.15 Sodium 136 Potassium 4.5 BUN 28 H Creatinine 2.29 H Glucose 147 H Magnesium 1.4 L Total Bilirubin 0.2 AST 13 L ALT < 6 L Alkaline Phosphatase 70 Lipase 17 Imagings Data: EXAM DESCRIPTION: CT - Abdomen Pelvis Wo Contrast - 08/23/2023 6:38 am CLINICAL HISTORY: 58 years, Male, ABD PAIN COMPARISON: 08/01/2023 TECHNIQUE: Noncontrast images of the abdomen and pelvis were performed utilizing 5 mm slice thickness at 5 mm interval reconstruction from the lung bases to the ischial tuberosities. In addition multiplanar reformats in the coronal and sagittal plane were obtained and reviewed. An individualized dose optimization technique, Automated Exposure Control, was utilized for the performed procedure. FINDINGS: Lung bases: The lung bases again demonstrated presence of the multiple bilateral pulmonary nodules have slightly progressed in comparison specifically referenced nodule within the left lower lung now measuring 8.6 mm on axial image 5/109, previously measured 8 mm. Small trace bilateral pleural effusions Liver: Grossly the unopacified liver demonstrates hypodense lesion posterior segment right hepatic lobe measuring approximately 3 x 2.4 cm, progressed in comparison with prior study. Gallbladder: The gallbladder demonstrates presence of layering high density structures corresponding to cholelithiasis. No biliary duct dilatation. Adrenal glands: Grossly the unopacified adrenal glands demonstrate to be normal. Pancreas: Grossly the unopacified pancreas demonstrate to be normal. Spleen: The spleen demonstrate to be normal. Kidneys: Both kidneys demonstrate a presence of percutaneous nephrostomy tubes in place. There is no evidence for significant nephrolithiasis and/or hydronephrosis. There is a cyst within the midpole left kidney measuring 1.1 cm image 30. GI: Grossly the unopacified stomach and small bowel demonstrate to be within normal limits. No evidence for bowel dilatation and/or free air. There is a right lower quadrant area of communication with the cecum/colostomy. There is fecal residue. There is a left lower quadrant colostomy. The appendix is unremarkable. Abnormal wall thickening of the procedural rectosigmoid colon with central area of low density suspicious for neoplastic process. There is an close proximity/contiguous to the posterior urinary bladder wall. : The urinary bladder demonstrate abnormal posterior wall thickening related to abnormal rectosigmoid colon. Genitalia: The prostate gland is normal. Abdominal aorta: The aorta demonstrate minimal peripheral atheromatous plaque. Retroperitoneum: There are retroperitoneal lymph node largest bulk inferior left perirenal aspect measuring 2.1 x 2.1 cm on image 39. There is no evidence for ascites. Bones: The bony structures demonstrate to be within normal limits. Soft tissues: There is haziness within the skin/subcutaneous tissue perhaps suggesting the possibility of cachexia and/or anasarca. IMPRESSION: Abnormal wall thickening of the procedural rectosigmoid colon with central area of low density suspicious for neoplastic process. There is an close proximity/contiguous to the posterior urinary bladder wall. Bilateral percutaneous nephrostomy tubes in place with no evidence for hyd ronephrosis. Retroperitoneal lymphadenopathy. Cholelithiasis. Left renal cyst. No follow-up is recommended. Small trace bilateral pleural effusions and progression pulmonary nodules. Mild haziness within the skin/subcutaneous tissue perhaps suggesting the possibility of cachexia and/or anasarca. Grossly the unopacified liver demonstrates hypodense lesion posterior segment right hepatic lobe measuring approximately 3 x 2.4 cm, progressed in comparison with prior study. EXAM DESCRIPTION: RAD - Chest Single View - 08/23/2023 12:18 am CLINICAL HISTORY: 58 years, Male, COUGH COMPARISON: 12/08/2022. FINDINGS: 1 views of the chest was obtained. Prior films were compared. The cardiomediastinal silhouette demonstrate to be within normal limits. The heart is not enlarged. The thoracic aorta is unremarkable. The pulmonary vasculature is normal in distribution. The costophrenic angles demonstrate to be sharp.. There are multiple bilateral pulmonary nodules suspicious for metastatic disease. There is a right IJ venous Port-A-Cath placed. There is no evidence for pneumothorax. The rest of the soft tissue and bony structures are unremarkable. IMPRESSION: Multiple bilateral pulmonary nodules suspicious for metastatic disease. Conclusions/Impression: Stage I JANET in the setting of hypovolemia CKD III with Proteinuria -No NSAIDs Hypomagnesemia -Continue SloMag BID HTN with CKD/ CHF -Continue Coreg Systolic CHF, chronic -Daily weight Hypoalbuminemia -Continue Ensure Anemia in chronic illness Hx iron deficiency -Monitor H&H -Transfuse PRBC prn Acute Cystitis with Hematuria -Continue abx Hospitalist note reviewed
[2023-08-30] MEDS: HYDROMORPHONE ORAL 2 MG TAB PO PRN ×2 (03:12→10:14)
[2023-08-30] MEDS: carvediloL 3.125 MG TAB PO SCH ×2 (05:22→18:00)
[2023-08-30] MEDS: MORPHINE 2 MG/ML SYR IV PRN ×3 (06:03→23:24)
[2023-08-30] MEDS: ENSURE ENLIVE 237 ML CAN PO SCH ×2 (09:00→20:53)
[2023-08-30] MEDS: MAGNESIUM CHLORIDE 64 MG TAB PO SCH ×2 (09:00→20:53)
--- NOTE | 2023-08-30 09:09 | P.PN ---
Date of Service: 08/30/23 Chief Complaint: Abdominal pain Subjective: No acute events overnight. + abdominal pain Continue current plan of care. Physical Examination Temp Pulse Resp BP Pulse Ox 97.1 F 93 H 17 106/73 98 08/30/23 03:19 08/30/23 03:19 08/30/23 06:33 08/30/23 05:22 08/30/23 06:33 General: Alert, In no apparent distress, Oriented x3. Cachectic HEENT: Atraumatic, Normocephalic Respiratory: Normal air movement, Diminished at bases. On room air. Cardiovascular: No edema. Tachycardia. Port-a-cath right chest. Gastrointestinal: Abdominal tenderness. Colostomy x 2. Integumentary: No rashes Neurological: Normal speech, Normal tone, Normal affect Urinary: Bilateral nephrostomy tubes Laboratory Data - Reviewed Microbiology Data - Reviewed Imagings Data: - Reviewed Medications List - Reviewed Assessment and plan Problem List Complicated Urinary Tract Infection, bilateral nephrostomy tubes Colon Cancer on chemotherapy Hypertension Hyperlipidemia Anemia in chronic illness Severe protein-calorie malnutrition Complicated Urinary Tract Infection - CT abdomen pevlis wo contrast 08/23: "abnormal wall thickening of the procedural rectosigmoid colon with central area of low density suspicious for neoplastic process. There is an close proximity/contiguous to the posterior urinary bladder wall. Bilateral percutaneous nephrostomy tubes in place with no evidence of hydronephrosis. Retroperitoneal lymphadenopathy. Left renal cyst. Small trace bilateral pleural effusions and progression pulmonary nodules. Mild haziness within the skin/subcutaneous tissue perhaps suggesting the possibility of cachexia and/or anasarca. Grossly the unopacified liver demonstrates hypodense lesion posterior segment right hepatic lobe measuring approximately 3 x 2.4 cm, progressed in comparison with prior study. " - Bilateral nephrostomy tubes - Urine culture 08/23: Escherichia coli ESBL - Started on meropenem 08/23 Recommendations Pending home health arrangements for continued IV antibiotics. - Due to complicated UTI with bilateral nephrostomy tubes and immunocompromised state, recommend continuing antibiotic therapy for 14 days (08/23 to 09/06) - Urine culture growing E.coli ESBL; continue carbapenem. Consider switch to Ertapenem IV Q24H. - Supplemental nutrition - Monitor WBC and fever trends - Pain management per primary team - Colon cancer on chemotherapy: patient to follow up with his Oncologist in [place] Case discussed with Alicia Valle
[2023-08-30] MEDS: Meropenem 1,000 MG in NA CHLORIDE 0.9% 100 ML IV SCH ×2 (10:12→20:51)
[2023-08-30] MEDS: HYDROMORPHONE ORAL 4 MG TAB PO PRN (10:14)
[2023-08-30] MEDS: DOCUSATE NA 100 MG CAP PO SCH ×2 (10:14→20:53)
[2023-08-30 14:01] VITALS: O2SAT 98
--- NOTE | 2023-08-30 17:40 | P.PN ---
Subjective Date of Service: 08/30/23 Chief Complaint: Abdominal pain Patient denies any new complaint. He is eating well. He reports intermittent rectal pain. Physical Examination - Vital Signs Temperature: 98.1 F Blood Pressure: 109/72 Pulse: 96 Respirations: 16 Pulse Ox (%): 97 Assessment And Plan - Plan Physical Exam: GEN: Alert, oriented CV: Regular rate and rhythm, no edema Pulm: Nonlabored respirations on room air, clear bilaterally ABD: Soft, mild abdominal discomfort, nondistended, colostomy bags in place Neuro: Normal speech, normal affect Right subclavian port-a-cath in place B/l nephrostomy's in place, clear light jennifer urine in bag vitals reviewed Problem List: Complicated UTI with b/l nephrostomy tubes ESBL E. Coli Chronic Anemia; h/o iron deficiency anemia JANET on CKD3 Colon Cancer on chemotherapy Chronic systolic CHF Hypertension Hyperlipidemia Severe protein-calorie malnutrition Complicated UTI, with b/l nephrostomy tubes ESBL E. Coli History of purulent drainage from urethra. Discharged from [facility] on 08/14 - admitted for 2 weeks due to sepsis -UTI / concern for rectal perforation/abscess. managed medically, completed 2 week antibiotics on 08/14 prior to discharge home. 08/24 patient hospitalized at [place] after being discharged from [facility] on 08/[address] Hernandez (admitted 08/17 - discharged 08/22) UA shows UTI - reportedly obtained from urethral straight cath in ED Continue Merrem (08/23-) switched from zosyn 08/23 given ESBL E. coli urine cx(08/23): ESBL E. coli ID seen patient and recommended 2 weeks of IV meropenem Patient opted for IV antibiotics at home with home health. PRN pain medication Chronic Anemia; h/o iron deficiency anemia hgb 7.7 on admission; iron studies from 05/12/2023 consistent with iron deficiency anemia s/p 2 uPRBC (08/23) Hemoglobin has been stable. JANET on CKD3 improved with IVF. Off IVF Nephrology is following Continue to monitor renal function. Colon Cancer on chemotherapy CT abdomen (08/23): liver with hypodense lesion posterior segment right hepatic lobe measuring approximately 3 x 2.4 cm, progressed in comparison with prior study Follows oncologist in [place]; on chemotherapy Pain management as needed. Chronic systolic CHF Hypertension Hyperlipidemia Continue home medications. Severe protein-calorie malnutrition/Anorexia Continue supplemental nutrition with ensure BID Patient has good oral intake. DVT prophylaxis: SCD.
--- NOTE | 2023-08-30 22:32 | P.PN ---
Date of Service: 08/30/23 Vital Signs Temp Pulse Resp BP Pulse Ox 98.4 F 88 18 91/63 96 08/30/23 20:00 08/30/23 20:00 08/30/23 20:00 08/30/23 20:00 08/30/23 20:00 Medications Acetaminophen (Acetaminophen 500 Mg Tab) 500 mg PO Q6H PRN PRN Reason: Pain scale 2-4 (Mild) Carvedilol (Carvedilol 3.125 Mg Tab) 3.125 mg PO BID 6AM 6PM [facility] Last Admin: 08/30/23 18:00 Dose: Not Given Docusate Sodium (Docusate Na 100 Mg Cap) 100 mg PO BID [facility] Last Admin: 08/30/23 20:53 Dose: Not Given Hydromorphone HCl (Hydromorphone Oral 4 Mg Tab) 4 mg PO Q6H PRN PRN Reason: Pain scale 5-7 (Moderate) Last Admin: 08/30/23 10:14 Dose: 4 mg Hydromorphone HCl (Hydromorphone Oral 2 Mg Tab) 2 mg PO Q6H PRN PRN Reason: Pain scale 5-7 (Moderate) Last Admin: 08/30/23 10:14 Dose: 2 mg Meropenem 1,000 mg/ Sodium (Chloride) 100 mls @ 200 mls/hr IV Q12HR [facility] Last Admin: 08/30/23 20:51 Dose: 100 mls Magnesium Chloride (Magnesium Chloride 64 Mg Tab) 64 mg PO BID [facility] Last Admin: 08/30/23 20:53 Dose: Not Given Morphine Sulfate (Morphine 2 Mg/Ml Syr) 2 mg IV Q8H PRN PRN Reason: Pain scale 8-10 (Severe) Last Admin: 08/30/23 16:45 Dose: 2 mg Nutritional Formula (Ensure Enlive 237 Ml Can) 237 ml PO BID [facility] Last Admin: 08/30/23 20:53 Dose: 237 ml Ondansetron HCl (Ondansetron 4 Mg/2 Ml Vial) 4 mg IV Q8H PRN PRN Reason: NAUSEA / VOMITING Assessment/ Plan: Nephrology No dyspnea No chest pain No acute events overnight Vitals, medications, blood work and imaging reviewed in the chart General: In no apparent distress, Oriented x3, Cooperative HEENT: Atraumatic Neck: Supple Respiratory: Clear to auscultation bilaterally Cardiovascular: No edema, Regular rate/rhythm Gastrointestinal: Non-distended Musculoskeletal: No clubbing, No contractures Integumentary: No rashes, No cyanosis Neurological: Normal speech Laboratory Data (last 24 hrs) 08/23/23 08/23/23 08/23/23 01:02 01:02 01:02 WBC 5.40 Hgb 7.7 L Hct 23.0 L Plt Count 446 H PT 12.6 H INR 1.15 Sodium 136 Potassium 4.5 BUN 28 H Creatinine 2.29 H Glucose 147 H Magnesium 1.4 L Total Bilirubin 0.2 AST 13 L ALT < 6 L Alkaline Phosphatase 70 Lipase 17 Imagings Data: EXAM DESCRIPTION: CT - Abdomen Pelvis Wo Contrast - 08/23/2023 6:38 am CLINICAL HISTORY: 58 years, Male, ABD PAIN COMPARISON: 08/01/2023 TECHNIQUE: Noncontrast images of the abdomen and pelvis were performed utilizing 5 mm slice thickness at 5 mm interval reconstruction from the lung bases to the ischial tuberosities. In addition multiplanar reformats in the coronal and sagittal plane were obtained and reviewed. An individualized dose optimization technique, Automated Exposure Control, was utilized for the performed procedure. FINDINGS: Lung bases: The lung bases again demonstrated presence of the multiple bilateral pulmonary nodules have slightly progressed in comparison specifically referenced nodule within the left lower lung now measuring 8.6 mm on axial image 5/109, previously measured 8 mm. Small trace bilateral pleural effusions Liver: Grossly the unopacified liver demonstrates hypodense lesion posterior segment right hepatic lobe measuring approximately 3 x 2.4 cm, progressed in comparison with prior study. Gallbladder: The gallbladder demonstrates presence of layering high density structures corresponding to cholelithiasis. No biliary duct dilatation. Adrenal glands: Grossly the unopacified adrenal glands demonstrate to be normal. Pancreas: Grossly the unopacified pancreas demonstrate to be normal. Spleen: The spleen demonstrate to be normal. Kidneys: Both kidneys demonstrate a presence of percutaneous nephrostomy tubes in place. There is no evidence for significant nephrolithiasis and/or hydronephrosis. There is a cyst within the midpole left kidney measuring 1.1 cm image 30. GI: Grossly the unopacified stomach and small bowel demonstrate to be within normal limits. No evidence for bowel dilatation and/or free air. There is a right lower quadrant area of communication with the cecum/colostomy. There is fecal residue. There is a left lower quadrant colostomy. The appendix is unremarkable. Abnormal wall thickening of the procedural rectosigmoid colon with central area of low density suspicious for neoplastic process. There is an close proximity/contiguous to the posterior urinary bladder wall. : The urinary bladder demonstrate abnormal posterior wall thickening related to abnormal rectosigmoid colon. Genitalia: The prostate gland is normal. Abdominal aorta: The aorta demonstrate minimal peripheral atheromatous plaque. Retroperitoneum: There are retroperitoneal lymph node largest bulk inferior left perirenal aspect measuring 2.1 x 2.1 cm on image 39. There is no evidence for ascites. Bones: The bony structures demonstrate to be within normal limits. Soft tissues: There is haziness within the skin/subcutaneous tissue perhaps suggesting the possibility of cachexia and/or anasarca. IMPRESSION: Abnormal wall thickening of the procedural rectosigmoid colon with central area of low density suspicious for neoplastic process. There is an close proximity/contiguous to the posterior urinary bladder wall. Bilateral percutaneous nephrostomy tubes in place with no evidence for hydronephrosis. Retroperitoneal lymphadenopathy. Cholelithiasis. Left renal cyst. No follow-up is recommended. Small trace bilateral pleural effusions and progression pulmonary nodules. Mild haziness within the skin/subcutaneous tissue perhaps suggesting the possibility of cachexia and/or anasarca. Grossly the unopacified liver demonstrates hypodense lesion posterior segment right hepatic lobe measuring approximately 3 x 2.4 cm, progressed in comparison with prior study. EXAM DESCRIPTION: RAD - Chest Single View - 08/23/2023 12:18 am CLINICAL HISTORY: 58 years, Male, COUGH COMPARISON: 12/08/2022. FINDINGS: 1 views of the chest was obtained. Prior films were compared. The cardiomediastinal silhouette demonstrate to be within normal limits. The heart is not enlarged. The thoracic aorta is unremarkable. The pulmonary vasculature is normal in distribution. The costophrenic angles demonstrate to be sharp.. There are multiple bilateral pulmonary nodules suspicious for metastatic disease. There is a right IJ venous Port-A-Cath placed. There is no evidence for pneumothorax. The rest of the soft tissue and bony structures are unremarkable. IMPRESSION: Multiple bilateral pulmonary nodules suspicious for metastatic disease. Conclusions/Impression: Stage I JANET in the setting of hypovolemia CKD III with Proteinuria -No NSAIDs Hypomagnesemia -Continue SloMag BID HTN with CKD/ CHF -Continue Coreg Systolic CHF, chronic -Daily weight Hypoalbuminemia -Continue Ensure Anemia in chronic illness Hx iron deficiency -Monitor H&H -Transfuse PRBC prn Acute Cystitis with Hematuria -Continue abx Hospitalist note reviewed
[2023-08-31] MEDS: carvediloL 3.125 MG TAB PO SCH ×2 (06:00→18:00)
[2023-08-31] MEDS: DOCUSATE NA 100 MG CAP PO SCH (08:18)
[2023-08-31] MEDS: MAGNESIUM CHLORIDE 64 MG TAB PO SCH (08:18)
[2023-08-31] MEDS: Meropenem 1,000 MG in NA CHLORIDE 0.9% 100 ML IV SCH (08:19)
[2023-08-31] MEDS: ENSURE ENLIVE 237 ML CAN PO SCH (08:20)
--- NOTE | 2023-08-31 08:25 | P.PN ---
Date of Service: 08/31/23 Chief Complaint: Abdominal pain Subjective: Patient in bed, in no apparent distress. Reports feeling the same. (+) abdominal pain. Physical Examination Temp Pulse Resp BP Pulse Ox 98 F 80 18 110/63 96 08/31/23 04:00 08/31/23 06:00 08/31/23 04:00 08/31/23 06:00 08/31/23 04:00 General: Alert, In no apparent distress, Oriented x3. HEENT: Atraumatic, Normocephalic. No JVD. Respiratory: Normal air movement, Diminished at bases. On room air. Cardiovascular: No edema. Tachycardia. Port-a-cath right chest. Gastrointestinal: Abdominal tenderness. Colostomy x 2. Non-distended. Integumentary: No rashes Msk: Moves all extremities. Urinary: Bilateral nephrostomy tubes Laboratory Data - Reviewed Microbiology Data - Reviewed Imagings Data: - Reviewed Medications List Acetaminophen (Acetaminophen 500 Mg Tab) 500 mg PO Q6H PRN PRN Reason: Pain scale 2-4 (Mild) Carvedilol (Carvedilol 3.125 Mg Tab) 3.125 mg PO BID 6AM 6PM [facility] Last Admin: 08/31/23 06:00 Dose: Not Given Docusate Sodium (Docusate Na 100 Mg Cap) 100 mg PO BID [facility] Last Admin: 08/31/23 08:18 Dose: Not Given Hydromorphone HCl (Hydromorphone Oral 4 Mg Tab) 4 mg PO Q6H PRN PRN Reason: Pain scale 5-7 (Moderate) Last Admin: 08/30/23 10:14 Dose: 4 mg Hydromorphone HCl (Hydromorphone Oral 2 Mg Tab) 2 mg PO Q6H PRN PRN Reason: Pain scale 5-7 (Moderate) Last Admin: 08/30/23 10:14 Dose: 2 mg Meropenem 1,000 mg/ Sodium (Chloride) 100 mls @ 200 mls/hr IV Q12HR [facility] Last Admin: 08/31/23 08:19 Dose: 100 mls Magnesium Chloride (Magnesium Chloride 64 Mg Tab) 64 mg PO BID [facility] Last Admin: 08/31/23 08:18 Dose: Not Given Morphine Sulfate (Morphine 2 Mg/Ml Syr) 2 mg IV Q8H PRN PRN Reason: Pain scale 8-10 (Severe) Last Admin: 08/31/23 09:38 Dose: 2 mg Nutritional Formula (Ensure Enlive 237 Ml Can) 237 ml PO BID [facility] Last Admin: 08/31/23 08:20 Dose: 237 ml Ondansetron HCl (Ondansetron 4 Mg/2 Ml Vial) 4 mg IV Q8H PRN PRN Reason: NAUSEA / VOMITING Assessment and plan Problem List Complicated Urinary Tract Infection, bilateral nephrostomy tubes Colon Cancer on chemotherapy Hypertension Hyperlipidemia Anemia in chronic illness Severe protein-calorie malnutrition Complicated Urinary Tract Infection - CT abdomen pevlis wo contrast 08/23: "abnormal wall thickening of the procedural rectosigmoid colon with central area of low density suspicious for neoplastic process. There is an close proximity/contiguous to the posterior urinary bladder wall. Bilateral percutaneous nephrostomy tubes in place with no evidence of hydronephrosis. Retroperitoneal lymphadenopathy. Left renal cyst. Small trace bilateral pleural effusions and progression pulmonary nodules. Mild haziness within the skin/subcutaneous tissue perhaps suggesting the possibility of cachexia and/or anasarca. Grossly the unopacified liver demonstrates hypodense lesion posterior segment right hepatic lobe measuring approximately 3 x 2.4 cm, progressed in comparison with prior study. " - Bilateral nephrostomy tubes - Urine culture 08/23: Escherichia coli ESBL - Started on meropenem 08/23 Recommendations Recommend continuing antibiotic therapy for 14 days (08/23 to 09/05). Pending home health arrangements prior to discharge home. - On day 9 of 14 on Meropenem IV. - Supplemental nutrition - Monitor WBC and fever trends - Pain management per primary team - Colon cancer on chemotherapy: patient to follow up with his Oncologist in [place] Case discussed with Alicia Valle
[2023-08-31] MEDS: MORPHINE 2 MG/ML SYR IV PRN (09:38)
[2023-08-31 13:14] VITALS: BP 100/72
--- NOTE | 2023-08-31 14:07 | P.DS ---
Admission Date: 08/23/23 Discharge Date: 08/31/23 Disposition: [place] HOME/HOME HEALTH CARE Discharge Condition: FAIR Reason for Admission: Abdominal pain Brief History of Present Illness: 58 yrs old Black Male with past medical history of hypertension, hyperlipidemia, CHF, gout, colon cancer on chemotherapy, history of nephrostomy tube bilateral presents to ER with complaints of abdominal pain. Pain started 3 days prior and has been progressively worsening. Pain located in lower abdomen with no radiation associated with abdominal distention. Associated with nausea but no vomiting. Urine analysis demonstrated evidence of UTI. Patient reported purulent drainage from his urethra. He has been hospitalized and [facility] for the same reason and received multiple antibiotics. Patient was hospitalized for further management. Hospital Course: Diagnosis: Complicated UTI with b/l nephrostomy tubes ESBL E. Coli Chronic Anemia; h/o iron deficiency anemia JANET on CKD3 Colon Cancer on chemotherapy Chronic systolic CHF Hypertension Hyperlipidemia Severe protein-calorie malnutrition Complicated UTI, with b/l nephrostomy tubes ESBL E. Coli History of purulent drainage from urethra. Discharged from [facility] on 08/14 - admitted for 2 weeks due to sepsis -UTI / concern for rectal perforation/abscess. managed medically, completed 2 week antibiotics on 08/14 prior to discharge home. 08/24 patient hospitalized at [facility] after being discharged from [facility] on 08/[address] Hernandez (admitted 08/17 - discharged 08/22) UA showed UTI - reportedly obtained from urethral straight cath in ED Patient treated with Merrem (08/23-) switched from zosyn 08/23 given ESBL E. coli urine cx(08/23): ESBL E. coli ID seen patient and recommended 2 weeks of IV meropenem Patient opted for IV antibiotics at home with home health. Chronic Anemia; h/o iron deficiency anemia hgb 7.7 on admission; iron studies from 05/12/2023 consistent with iron deficiency anemia s/p 2 uPRBC (08/23) Hemoglobin has been stable. JANET on CKD3 improved with IVF. Nephrology followed and assisted with management. Colon Cancer on chemotherapy CT abdomen (08/23): liver with hypodense lesion posterior segment right hepatic lobe measuring approximately 3 x 2.4 cm, progressed in comparison with prior study Follows oncologist in [place]; on chemotherapy Pain management as needed. Chronic systolic CHF Hypertension Hyperlipidemia Continued home medications. Severe protein-calorie malnutrition/Anorexia Continued supplemental nutrition with ensure BID Patient has good oral intake. Vital Signs/Physical Exam: Temp Pulse Resp BP Pulse Ox 97.3 F 93 H 16 100/72 96 08/31/23 12:00 08/31/23 12:00 08/31/23 12:00 08/31/23 12:00 08/31/23 12:00 General: Alert, In no apparent distress, Oriented x3, Cachectic HEENT: Mucous membr. moist/pink Neck: Supple, JVD not distended Respiratory: Clear to auscultation bilaterally, Normal air movement Cardiovascular: Regular rate/rhythm, Normal S1 S2 Gastrointestinal: Soft and benign, Non-distended, No tenderness Musculoskeletal: No swelling Neurological: Normal strength at 5/5 x4 extr Laboratory Data at Discharge: WBC 4.80 thou/uL (4.3-10.9) 08/28/23 08:10 Hgb 10.0 g/dL (13.6-17.9) L 08/28/23 08:10 Hct 30.2 % (39.6-49.0) L 08/28/23 08:10 Plt Count 238 thou/uL (152-406) 08/28/23 08:10 PT 12.6 SECONDS (9.5-12.5) H 08/23/23 01:02 INR 1.15 08/23/23 01:02 Sodium 137 mEq/L (136-145) 08/28/23 08:10 Potassium 4.6 mEq/L (3.5-5.1) 08/28/23 08:10 BUN 21 mg/dL (7-18) H 08/28/23 08:10 Creatinine 1.75 mg/dL (0.70-1.30) H 08/28/23 08:10 Glucose 117 mg/dL (74-106) H 08/28/23 08:10 Magnesium 1.6 mg/dL (1.6-2.4) 08/28/23 08:10 Total Bilirubin 0.3 mg/dL (0.2-1.0) 08/28/23 08:10 AST 14 U/L (15-37) L 08/28/23 08:10 ALT < 6 U/L (16-61) L 08/28/23 08:10 Alkaline Phosphatase 65 U/L (45-117) 11/13/23 08:10 Lipase 17 U/L (13-75) 08/23/23 01:02 Home Medications: carvediloL [Coreg*] 3.125 mg PO BID 6AM 6PM #60 tab 05/11/23 Ensure Enlive 237 ml PO BID #30 can 08/31/23 Hydrocodone/Acetaminophen [Hydrocodone-Acetamin 10-325 mg] 1 each PO Q6HP PRN #20 tab 08/31/23 Magnesium Chloride [Slow-Mag*] 64 mg PO BID #60 tab 08/31/23 Polyethylene Glycol 3350 [Miralax] 17 gm PO DAILY #30 packet 08/31/23 Sennosides [Senokotxtra] 17.2 mg PO BID #120 tab 08/31/23 New Medications: Hydrocodone/Acetaminophen [Hydrocodone-Acetamin 10-325 mg] 1 each PO Q6HP PRN #20 tab PRN Reason: Pain Scale 5-7 (Moderate) Ensure Enlive 237 ml PO BID #30 can Polyethylene Glycol 3350 [Miralax] 17 gm PO DAILY #30 packet Sennosides [Senokotxtra] 17.2 mg PO BID #120 tab Magnesium Chloride [Slow-Mag*] 64 mg PO BID #60 tab Physician Discharge Instructions: Patient presented with worsening abdominal pain, nausea. UA grossly positive /concerning for UTI. CT abdomen/pelvis with findings below. ID was consulted. Patient was given empiric Merrem given recent h/o of ESBL E. coli and had improvement of his symptoms. Urine culture grew Esbl E. coli (08/23). ID recommending 2 week total IV antibiotics. PICC line difficult to obtain due to staffing etc. Discussed with nephrology who said midline was okay. Patient is to complete ?~9 more days of Invanz on discharge. Patient was feeling better, remained afebrile without leukocytosis throughout hospitalization and was deeemed stable for discharge. In regards to patients colon cancer: CT abdomen noted increase in size of metastatic disease as noted below comparatively to prior study. Patient informed of results and advised to follow up with his oncologist in [place]. Medications: invanz? Follow up: PCP 3-5 days Nephrology in 1-[address] abdomen/pelvis full findings (08/23): Abnormal wall thickening of the procedural rectosigmoid colon with central area of low density suspicious for neoplastic process. There is an close proximity/contiguous to the posterior urinary bladder wall. Bilateral percutaneous nephrostomy tubes in place with no evidence for hydronephrosis. Retroperitoneal lymphadenopathy. Cholelithiasis. Left renal cyst. Small trace bilateral pleural effusions and progression pulmonary nodules. Mild haziness within the skin/subcutaneous tissue perhaps suggesting the possibility of cachexia and/or anasarca. Grossly the unopacified liver demonstrates hypodense lesion posterior segment right hepatic lobe measuring approximately 3 x 2.4 cm, progressed in comparison with prior study. Diet: AHA Activity: Fall precautions Time spent managing pt's care (in minutes): 35
[2023-08-31] MEDS: HYDROMORPHONE ORAL 2 MG TAB PO PRN (14:11)
[2023-08-31] MEDS: HYDROMORPHONE ORAL 4 MG TAB PO PRN (14:11)
[2023-08-31 16:33] VITALS: TEMP 97.7
--- NOTE | 2023-08-31 20:35 | P.PN ---
Date of Service: 08/31/23 Vital Signs Temp Pulse Resp BP Pulse Ox 97.7 F 84 16 100/72 96 08/31/23 16:00 08/31/23 16:00 08/31/23 16:00 08/31/23 16:00 08/31/23 16:00 Assessment/ Plan: Nephrology No dyspnea No chest pain No acute events overnight Vitals, medications, blood work and imaging reviewed in the chart General: In no apparent distress, Oriented x3, Cooperative HEENT: Atraumatic Neck: Supple Respiratory: Clear to auscultation bilaterally Cardiovascular: No edema, Regular rate/rhythm Gastrointestinal: Non-distended Musculoskeletal: No clubbing, No contractures Integumentary: No rashes, No cyanosis Neurological: Normal speech Laboratory Data (last 24 hrs) 08/23/23 08/23/23 08/23/23 01:02 01:02 01:02 WBC 5.40 Hgb 7.7 L Hct 23.0 L Plt Count 446 H PT 12.6 H INR 1.15 Sodium 136 Potassium 4.5 BUN 28 H Creatinine 2.29 H Glucose 147 H Magnesium 1.4 L Total Bilirubin 0.2 AST 13 L ALT < 6 L Alkaline Phosphatase 70 Lipase 17 Imagings Data: EXAM DESCRIPTION: CT - Abdomen Pelvis Wo Contrast - 08/23/2023 6:38 am CLINICAL HISTORY: 58 years, Male, ABD PAIN COMPARISON: 08/01/2023 TECHNIQUE: Noncontrast images of the abdomen and pelvis were performed utilizing 5 mm slice thickness at 5 mm interval reconstruction from the lung bases to the ischial tuberosities. In addition multiplanar reformats in the coronal and sagittal plane were obtained and reviewed. An individualized dose optimization technique, Automated Exposure Control, was utilized for the performed procedure. FINDINGS: Lung bases: The lung bases again demonstrated presence of the multiple bilateral pulmonary nodules have slightly progressed in comparison specifically referenced nodule within the left lower lung now measuring 8.6 mm on axial image 5/109, previously measured 8 mm. Small trace bilateral pleural effusions Liver: Grossly the unopacified liver demonstrates hypodense lesion posterior segment right hepatic lobe measuring approximately 3 x 2.4 cm, progressed in comparison with prior study. Gallbladder: The gallbladder demonstrates presence of layering high density structures corresponding to cholelithiasis. No biliary duct dilatation. Adrenal glands: Grossly the unopacified adrenal glands demonstrate to be normal. Pancreas: Grossly the unopacified pancreas demonstrate to be normal. Spleen: The spleen demonstrate to be normal. Kidneys: Both kidneys demonstrate a presence of percutaneous nephrostomy tubes in place. There is no evidence for significant nephrolithiasis and/or hydronephrosis. There is a cyst within the midpole left kidney measuring 1.1 cm image 30. GI: Grossly the unopacified stomach and small bowel demonstrate to be within normal limits. No evidence for bowel dilatation and/or free air. There is a right lower quadrant area of communication with the cecum/colostomy. There is fecal residue. There is a left lower quadrant colostomy. The appendix is unremarkable. Abnormal wall thickening of the procedural rectosigmoid colon with central area of low density suspicious for neoplastic process. There is an close proximity/contiguous to the posterior urinary bladder wall. : The urinary bladder demonstrate abnormal posterior wall thickening related to abnormal rectosigmoid colon. Genitalia: The prostate gland is normal. Abdominal aorta: The aorta demonstrate minimal peripheral atheromatous plaque. Retroperitoneum: There are retroperitoneal lymph node largest bulk inferior left perirenal aspect measuring 2.1 x 2.1 cm on image 39. There is no evidence for ascites. Bones: The bony structures demonstrate to be within normal limits. Soft tissues: There is haziness within the skin/subcutaneous tissue perhaps suggesting the possibility of cachexia and/or anasarca. IMPRESSION: Abnormal wall thickening of the procedural rectosigmoid colon with central area of low density suspicious for neoplastic process. There is an close proximity/contiguous to the posterior urinary bladder wall. Bilateral percutaneous nephrostomy tubes in place with no evidence for hydronephrosis. Retroperitoneal lymphadenopathy. Cholelithiasis. Left renal cyst. No follow-up is recommended. Small trace bilateral pleural effusions and progression pulmonary nodules. Mild haziness within the skin/subcutaneous tissue perhaps suggesting the possibility of cachexia and/or anasarca. Grossly the unopacified liver demonstrates hypodense lesion posterior segment right hepatic lobe measuring approximately 3 x 2.4 cm, progressed in comparison with prior study. EXAM DESCRIPTION: RAD - Chest Single View - 08/23/2023 12:18 am CLINICAL HISTORY: 58 years, Male, COUGH COMPARISON: 12/08/2022. FINDINGS: 1 views of the chest was obtained. Prior films were compared. The cardiomediastinal silhouette demonstrate to be within normal limits. The heart is not enlarged. The thoracic aorta is unremarkable. The pulmonary vasculature is normal in distribution. The costophrenic angles demonstrate to be sharp.. There are multiple bilateral pulmonary nodules suspicious for metastatic disease. There is a right IJ venous Port-A-Cath placed. There is no evidence for pneumothorax. The rest of the soft tissue and bony structures are unremarkable. IMPRESSION: Multiple bilateral pulmonary nodules suspicious for metastatic disease. Conclusions/Impression: Stage I JANET in the setting of hypovolemia CKD III with Proteinuria -No NSAIDs Hypomagnesemia -Continue SloMag BID HTN with CKD/ CHF -Continue Coreg Systolic CHF, chronic -Daily weight Hypoalbuminemia -Continue Ensure Anemia in chronic illness Hx iron deficiency -Monitor H&H -Transfuse PRBC prn Acute Cystitis with Hematuria -Continue abx Hospitalist note reviewed
== END 2023-08-31 19:20 | disposition home health service (06) | DRG 698 ==
LOC: ER 23:58 → ERHOLD 08-23 04:35 → 2ND 08-23 17:11
PROVIDERS: ADMIT Family Medicine; ATTEND Internal Medicine
PROC: 30233N1 Transfusion of Nonautologous Red Blood Cells into Peripheral Vein, Percutaneous Approach (ICD-10-PCS; principal; 2023-08-23)
DX: T83.518A Infection and inflammatory reaction due to other urinary catheter, initial encounter (principal); E43 Unspecified severe protein-calorie malnutrition; I50.22 Chronic systolic (congestive) heart failure; R64 Cachexia; Z68.1 Body mass index [BMI] 19.9 or less, adult; I13.0 Hypertensive heart and chronic kidney disease with heart failure and stage 1 through stage 4 chronic kidney disease, or unspecified chronic kidney disease; C20 Malignant neoplasm of rectum; N30.01 Acute cystitis with hematuria; N17.9 Acute kidney failure, unspecified; I42.0 Dilated cardiomyopathy; Z16.12 Extended spectrum beta lactamase (ESBL) resistance; N18.30 Chronic kidney disease, stage 3 unspecified; D63.1 Anemia in chronic kidney disease; D63.0 Anemia in neoplastic disease; D50.9 Iron deficiency anemia, unspecified; E78.5 Hyperlipidemia, unspecified; N28.1 Cyst of kidney, acquired; M10.9 Gout, unspecified; D75.839 Thrombocytosis, unspecified; E83.42 Hypomagnesemia; E88.09 Other disorders of plasma-protein metabolism, not elsewhere classified; B96.20 Unspecified Escherichia coli [E. coli] as the cause of diseases classified elsewhere; R59.1 Generalized enlarged lymph nodes; Z90.5 Acquired absence of kidney; Z90.49 Acquired absence of other specified parts of digestive tract; Z79.02 Long term (current) use of antithrombotics/antiplatelets; Z85.038 Personal history of other malignant neoplasm of large intestine; Y84.8 Other medical procedures as the cause of abnormal reaction of the patient, or of later complication, without mention of misadventure at the time of the procedure
CPT/HCPCS: 36415; 36430; 71045; 74176; 80048; 80053; 80076; 81001; 83690; 83735; 83880; 84484; 85025; 85610; 86850; 86900; 86901; 86920; 87077; 87086; 87088; 87186; 93005; 96365; 96375; 97116; 99285; J0696; J1170; J2185; J2270; J2405; J2543; J7030; J7050; P9016

== ENCOUNTER 2023-09-13 20:02 | Inpatient (IN) | payer OTHER ==
--- OUTSIDE RECORDS SUMMARY | 2023-09-13 20:12 | XMS REPORT | Continuity of Care Document ---
:1965 Author Organization [facility] t Address [address] [facility] [address] [place] [address] Care Team Providers Name Role Phone SHERYL CHARLES Primary Care Physician Unavailable KEVIN ATKINS Attending Clinician Unavailable BACILIO GALLOWAY Attending Clinician Unavailable Tarsha Mancera Attending Clinician Unavailable SHERYL CHARLES Attending Clinician Unavailable SHERYL CHARLES Attending Clinician Unavailable Bao PRINCE, Jimmy Cordero Attending Clinician [phone] Rhonda aNm MD, Jose Mcpherson Attending Clinician [phone] Teresa Nice MD Attending Clinician Lacho Kelley MD Attending Clinician TOBIN BONDS Attending Clinician Unavailable aCrlos PRINCE, Martita Kent Attending Clinician Parker Dietrich RN Attending Clinician Unavailable Derrick Dela Cruz MD Attending Clinician Ziggy Mathias RN Attending Clinician Unavailable Jacinto Plunkett DO Attending Clinician Fadia PRINCE, Alma Attending Clinician Roseann Gallardo DO Attending Clinician ROSEANN GALLARDO Attending Clinician Unavailable Doctor Unassigned, [place] Attending Clinician Unavailable Desire Bang MA Attending Clinician Unavailable Kamla PRINCE, Eve Conklin Attending Clinician Nilesh PRINCE, Bacilio Clark Attending Clinician [phone] Harish PRINCE, Spencer Alexis Attending Clinician [phone] Dipesh PRINCE, Kevin Wilkerson Attending Clinician Merchant PRINCE, Salvador Attending Clinician Reece PRINCE, Karuna Attending Clinician EVE CASON Attending Clinician Unavailable Nilam Lipscomb MA Attending Clinician Unavailable Samantha PRINCE, Gume Laird Attending Clinician [phone] Nils Cowan MD Attending Clinician Hang PRINCE, Lex Orellana Attending Clinician Michel Rdz Attending Clinician Unavailable Lalo Ruiz Attending Clinician Unavailable Nickell_Galilea Attending Clinician Unavailable Clayton Dale MD Attending Clinician Shavon PRINCE, Eladio Attending Clinician Shanika Fritz MD Attending Clinician Ky Sibley Attending Clinician Seymour Sales Attending Clinician Unavailable _[facility]_Nader_Dan1 Attending Clinician Unavailable Rehrer Parviz PARMAR Attending Clinician Rhys Tan MD Attending Clinician [phone] JENNY ULLOA Attending Clinician Unavailable MD DALLIN LIU Attending Clinician Unavailable MD RHYS TAN Attending Clinician Unavailable JONATHAN COVINGTON Attending Clinician Unavailable BACILIO GALLOWAY Admitting Clinician Unavailable Nasir Vargas Admitting Clinician Unavailable JOSE NAM Admitting Clinician Unavailable Alma Bonilla MD Admitting Clinician ALMA BONILLA Admitting Clinician Unavailable LEX MAURICIO Admitting Clinician Unavailable Michel Rdz Admitting Clinician Unavailable Seymour Sales Admitting Clinician Unavailable SHERYL CHARLES Admitting Clinician Unavailable Nickell_K Admitting Clinician Unavailable ELADIO SANDS Admitting Clinician Unavailable [email or web address] Admitting Clinician Unavailable NILS COWAN Admitting Clinician Unavailable KNOW, DOES_NOT Admitting Clinician Unavailable DALLIN LIU Admitting Clinician Unavailable MD DALLIN LIU Admitting Clinician Unavailable MD NILS COWAN Admitting Clinician Unavailable Payers Payer Name Policy Type Policy Number Effective Date Expiration Date S lisset MEDICARE A B [id number] 2023 00:00:00 [facility] COMM STAR [id number] 2023 PLAN 00:00:00 MEDICARE PART A \\T\\ [id number] 2023 B 00:00:00 [facility] - [id number] [place]MED[place]AC[place] - [place]) [facility] [id number] (HMO) Problems Condition Condition Condition Status Onset Resolution Last Treating Co mments Source Name Details Category Date Date Treatment Clinician Date Mobility Mobility Disease Active 2022-10 Metho di poor poor 11-12 st 00:00: Hospita 00 l Abdominal Abdominal Disease Active 2022-10 Met hodi pain pain 24 st 00:00: Hospita 00 l JANET (acute JANET (acute Disease Active 2022-10 U nivers kidney kidney 1-04 ity of injury) injury) 00:00: [place] 00 Medical Branch Other Other Disease Active 2022-10 Univers specified specified 1-04 ity of anemias anemias 00:00: 00 Medical Branch 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 00:00: [place] and and Medical diastolic diastolic Bran ch congestive congestive heart heart failure failure VHD VHD Disease Active 2022-10 Univers (valvular (valvular 1-04 ity of heart heart 00:00: [place] disease) disease) 00 Medica l Branch Acute Acute Disease Active 2022-10 Univers abdominal abdominal 1-03 ity of pain pain 00:00: [place] 00 [facility] Branch 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 Univers Unspecifie Unspecifie 03 it y of d severe d severe 00:00: [place] protein-ca [facility]-ca [facility] malnutriti malnutriti on on UTI UTI Disease Active 2022-[address] [facility] (urinary (urinary 0-18 [facility] tract tract 00:00: Medical infection) infection) 00 Ce nter Hyperkalem Hyperkalem Disease Active M ethodi ia [...] Allergie 4-12 Clear s 00:00: Li 00 [facility] No Known DA Active U 2020-10 [facility] Allergie 1-24 [place] [facility] NO KNOWN Drug Active Univers ALLERGIE Class ity of S [facility] NO KNOWN Allergy Active [facility] Social History Social Habit Start Date Stop Date Quantity Comments Source History SDOH [facility] Sexual orientation [facility] Education - What is 2023-08-18 2023-08-18 12th grade Unive rsity of the highest level 00:00:00 00:00:00 [place] edical of school you have Branch completed or the highest degree you have received? Tobacco use and 2023-08-18 2023-08-18 Smokeless Universit y of exposure 00:00:00 00:00:00 tobacco non-user [facility] dical Branch Alcohol intake 2023-08-07 2023-08-[address] [facility] 00:00:00 00:00:00 non-drinker Medical Marcial aguilar (finding) History of Social 2023-08-07 2023-08-[address] [facility] function 00:00:00 00:00:00 Medical Center Exposure to 2023-07-23 2023-08-02 Not sure JANEL Cardenas SARS-CoV-2 (event) 00:00:00 08:59:00 Medica l Center History SDOH 2021-08-01 2021-08-01 1 [facility] Frequency 00:00:00 00:00:00 Hospita l Sex [birth year] At [birth year] JANEL Barnetts 00:00:00 00:00:00 Medical Center Smoking Status Start Date Stop Date Source Never smoked tobacco [facility] Medications Ordered Filled Start Stop Current Ordering Indication Dosage Frequency Signature Comments Components Source Medication Medication Date Date Medication? Clinician (SIG) Name Name carvediloL 2022-10 Yes 25mg QD Take 1 Metho di (COREG) 25 11-13 tablet (25 st MG tablet 19:04: mg total) Hos caity 50 by mouth l daily. tamsulosin 2022-10 Yes .4mg QD Take 1 Metho di (FLOMAX) 11-[address] 0.4 mg 19:04: (0.4 mg Hospita capsule 50 total) by l mouth daily. hydromorPHO 2022-10- Yes [id number] 4mg Q3H Take 1 Me thodi NE 11-13-14 tablet (4 st (DILAUDID) 00:00: 05:59 mg total) H ospita 4 MG tablet 00 :00 by mouth l every 3 (three) hours as needed for moderate pain or severe pain for up to 80 doses .acute pain, chronic pain, cancer pain. Max Daily Amount: 32 mg HYDROcodone 2022-10- No [id number] 1{tbl} Q6H Take 1 Methodi -acetaminop 10-[address] [facility] ([place]) 00:00: 00:00 mouth Hosp cristy 5-325 mg 00 :00 every 6 l per tablet (six) hours as needed for moderate pain .chronic pain. Max Daily Amount: 4 tablets heparin 2022-10- No 500U 500 Units, Uni vers lock flush 10-22- IV Push, ity of (HEPARIN 21:45: 21:25 ONCE, 1 [place] LOCKFLUSH(P 00 :00 dose, On Medi eliel ORCINE)(PF) [facility] ) 100 08/22/23 at unit/mL 1545, injection Routine 500 Units trifluridin 2022-10 Yes 35mg/m2 Take 35 Univers e-tipiraciL 1-07 mg/m2 by ity of (LONSURF) 15:56: [place] 20-[place]19 mg 00 the Medical tablet morning Branch and 35 mg/m2 in the evening. ferrous 2022-10 Yes 325mg Take 1 Univers sulfate 325 1-07 tablet by ity of mg (65 mg 15:56: [place] iron) 00 the Medical tablet morning. Branch trifluridin 2022-10 Yes 35mg/m2 Take 35 Univers e-tipiraciL 1-07 mg/m2 by ity of (LONSURF) 15:56: [place] 20-8.19 mg 00 the Medical tablet morning Branch and 35 mg/m2 in the evening. ferrous 2022-10 Yes 325mg Take 1 Univers sulfate 325 1-07 tablet by ity of mg (65 mg 15:56: [place] iron) 00 the Medical tablet morning. Branch trifluridin 2022-10 Yes 35mg/m2 Take 35 Univers e-tipiraciL 1-07 mg/m2 by ity of (LONSURF) 15:56: [place] 20-8.19 mg 00 the Medical tablet morning Branch and 35 mg/m2 in the evening. ferrous 2022-10 Yes 325mg Take 1 Univers sulfate 325 1-07 tablet by ity of mg (65 mg 15:56: [place] iron) 00 the Medical tablet morning. Branch trifluridin 2022-10 Yes 35mg/m2 Take 35 Univers e-tipiraciL 1-07 mg/m2 by ity of (LONSURF) 15:56: [place] 20-8.19 mg 00 the Medical tablet morning Branch and 35 mg/m2 in the evening. ferrous 2022-10 Yes 325mg Take 1 Univers sulfate 325 1-07 tablet by ity of mg (65 mg 15:56: [place] iron) 00 the Medical tablet morning. Branch sodium 2022-10 Yes [id number] 325mg Take 1 U nivers bicarbonate 1-07 [id number] tablet by i ty of 325 mg 00:00: mouth 2 [place] tablet 00 (two) Medical times Branch daily after breakfast and dinner. sodium 2022-10 Yes [id number] 325mg Take 1 U nivers bicarbonate 1-07 [id number] tablet by i ty of 325 mg 00:00: mouth 2 [place] tablet 00 (two) Medical times Branch daily after breakfast and dinner. sodium 2022-10 Yes [id number] 325mg Take 1 U nivers bicarbonate 1-07 [id number] tablet by i ty of 325 mg 00:00: mouth 2 [place] tablet 00 (two) Medical times Branch daily after breakfast and dinner. sodium 2022-10 Yes [id number] 325mg Take 1 U nivers bicarbonate 1-07 [id number] tablet by i ty of 325 mg 00:00: mouth 2 [place] tablet 00 (two) Medical times Branch daily after breakfast and dinner. cefdinir 2022-10- Yes [id number] 300mg Take 1 Univers 300 mg 10-22 capsule by ity of capsule 00:00: 05:59 mouth in [place] 00 :00 the Medical morning Branch for 7 days. cefdinir 2022-10- Yes [id number] 300mg Take 1 Univers 300 mg 10-22 capsule by ity of capsule 00:00: 05:59 mouth in [place] 00 :00 the Medical morning Branch for 7 days. cefdinir 2022-10- Yes [id number] 300mg Take 1 Univers 300 mg 10-22 capsule by ity of capsule 00:00: 05:59 mouth in [place] 00 :00 the Medical morning Branch for 7 days. NaCl 0.45% 2022-10- No 1000mL at 50 Uni vers (1/2NS) IV 10-21 mL/hr, ity of infusion 14:00: 23:41 1,000 mL, Ramón as 1,000 mL 00 :34 IV Medical Infusion, Branch CONTINUOUS , Starting on Mon08/21/23 at 0800, Until Mon08/21/23 at 1741, Routine NaCl 0.45% 2022-10- No 1000mL at 75 Uni vers (1/2NS) IV 10-21 mL/hr, ity of infusion 06:00: 13:51 1,000 mL, Ramón as 1,000 mL 00 :08 IV Medical Infusion, Branch CONTINUOUS , Starting on 08/21/23 at 0000, Until 08/21/23 at 0751, Routine HYDROmorpho 2022-10- Yes .5mg [...] 08/20/23 at 1730, Routine sulfur 2022-10- No [id number] 5mL 5 mL, Univ ers hexafluorid 10-20 Intravenou i ty of e microsphr 14:30: 14:30 s, ONCE, 1 [place] (LUMASON) 00 :00 dose, On Medica l injection 5 Sun Branch mL 08/20/23 at 0830, Routine
seafood service team member approving Restricted medication : LINDA YU epoetin 2022-10- No [id number] 10,000 Unive rs yamilet-epbx 10-20 Units, ity of (RETACRIT) 01:00: 01:12 Subcutaneo [place] injection 00 :00 us, ONCE Medica l 10,000 AT 2000, 1 Branch Units dose, On 08/19/23 at 2000, Routine
seafood service team member approving Restricted medication : SMITH BARBOSA G NaCl 0.9% 2022-10- No IV Univers (NS) 10-19 Infusion, ity of PEDIATRIC 17:45: 04:50 at 75 [place] IV infusion 00 :16 mL/hr, Medica l CONTINUOUS Branch , Starting on 08/19/23 at 1245, Until 08/20/23 at 2250, Routine sodium 2022-10 Yes 325mg 325 mg, Univers bicarbonate 10-19 Oral, ity of (ANTACID 16:45: BIDPC, [place] (SODIUM 00 First dose Medica l BICARBONATE [...] of 1,000 mg in 15:30: 23:43 Piggyback, [place] NaCl 0.9% 00 :39 Q24H ABX, Medic al (NS) 100 mL 3 doses, Bran ch MINI-BAG First dose on 08/19/23 at 1030, Last dose on 08/21/23 at 1030, Administer over 30 Minutes, 100 mL
Reas on for Anti-Infec tive: Empiric Therapy for Suspected Infection< br>Empiric Therapy Site: Urine
D uration of therapy: 72 hours ergocalcife 2022-10 Yes [id number] 50,000 Un viral rol 10-19 Units, ity of (vitamin 14:00: Oral, [place] d2) 00 QWEEKLY, Medical (CALCIFEROL First dose Br anch ) capsule on Sat 50,000 08/19/23 at Units 0900, Until Discontinu ed, Routine HYDROmorpho 2022-10- No .5mg 0.5 mg, Un viral ne 10-18 Slow IV ity of (DILAUDID) 22:05: 23:04 Push, [place] injection 46 :46 Q4HPRN, Medical 0.5 mg Starting Branch on 08/18/23 at 1705, Until 08/20/23 at 1704, Routine, breakthrou gh pain
Us e approved by (Faculty): ADC PROVIDER oxyCODONE-a 2022-10 Yes 1{tbl} 1 tablet, Univers cetaminophe -03 Oral, ity of n 22:05: Q6HPRNMountainside, [place] (PERCOCET) 29 Starting Medic al 5-325 mg on Mon Branch per tablet 08/18/23 at 1 tablet 1705, Until Discontinu ed, Routine, Pain (scale 4-6) oxyCODONE-a 2022-10 Yes 2{tbl} 2 tablet, Univers cetaminophe -03 Oral, ity of n 22:05: Q8HPRFranklin, [place] (PERCOCET) 18 Starting Medic al 5-325 [...] heparin 2022-10 Yes 5000U 5,000 Univers (porcine) 03 Units, ity of injection 11:00: Subcutaneo [place] 5,000 Units 00 us, Q8H, Medi eliel First dose Branch on Mon08/18/23 at 0600, Until Discontinu ed, Routine NaCl 0.9% 2022-10- No 1000mL at 125 Uni vers (NS) IV 10-18 11-04 mL/hr, IV ity of infusion 09:00: 15:46 Infusion, Ramón as 1,000 mL 00 :42 CONTINUOUS Medic al , Starting Branch on Mon08/18/23 at 0400, Until 08/19/23 at 1046, Routine NaCl 0.9% 2022-10- No 1000mL at 999 Uni vers (NS) bolus 10-18 11-03 mL/hr, ity of infusion 09:00: 10:33 1,000 mL, Ramón as 1,000 mL 00 :15 IV Medical Piggyback, Branch ONCE, 1 dose, On Mon08/18/23 at 0400, STAT insulin 2022-10 No 5U 5 Units, Unive rs regular 10-18 Slow IV ity of human 08:05: 08:05 Push, [place] (HUMULIN R) 00 :00 ONCE, 1 Medic al injection 5 dose, On Bran ch Units Mon08/18/23 at 0315, DAGOBERTO
In dication for insulin: Hyperkalem ia- Please use the Insulin Protocol for Hyperkalem ia order set ondansetron 2022-10 Yes 4mg 4 mg, Slow Univers (ZOFRAN 10-18 IV Push, ity of (PF)) 07:58: Q6HPRN, [place] injection 4 12 Starting Medi eliel mg on Mon Branch 08/18/23 at 0258, Until Discontinu ed, Routine, Nausea and Vomiting (N/V) morpHINE (2022-10 No 4mg 4 mg, Slow Univers mg/mL) 10-18 IV Push, ity of injection 4 07:58: 22:06 Q4HPRN, [place] mg 07 :08 Starting Medical on Mon Branch 08/18/23 at 0258, Until Mon08/18/23 at 1706, Routine, Pain (scale 7-10) dextrose 2022-10 No 250mL 250 mL, IV U nivers [...] days at room temperatur e.
morpHINE (4 2022-10- No 4mg 4 mg, Slow Univers mg/mL) 10-18 IV Push, ity of injection 4 06:17: 06:21 ONCE, 1 [place] mg 00 :00 dose, On Medical Fri Branch 08/18/23 at 0130, DAGOBERTO acetaminoph 2022-10- No 1000mg 1,000 mg, Univers en ADULT 10-18 IV ity of (OFIRMEV) 03:45: 04:39 Infusion, [place] injection 00 :00 at 400 Medical 1,000 mg mL/hr Branch Administer over 15 Minutes, ONCE, 1 dose, On Lanny 08/17/23 at 2245, Routine
Indicatio n: Non-periop erative Patient
Approved by: Per Policy (NPO Status) NaCl 0.9% 2022-10- No 1000mL at 999 Uni vers (NS) bolus 10-18 mL/hr, ity of infusion 03:30: 07:58 1,000 mL, Ramón as 1,000 mL 00 :00 IV Medical Infusion, Branch ONCE, 1 dose, On Lanny 08/17/23 at 2230, DAGOBERTO FENTanyl PF 2022-10- No 100ug 100 mcg, Univers (SUBLIMAZE 10-18 Slow IV ity o f (PF)) 02:49: 04:25 Push, [place] injection 00 :00 ONCE, 1 Medical 100 mcg dose, On Branch Lanny 08/17/23 at 2200, DAGOBERTO ferrous 2022-10- Yes 325mg QD Take [address] [facility] sulfate 325 10-17 tablet [facility] (65 FE) MG 00:00: 23:59 (325 mg Med ical tablet 00 :00 total) by Center mouth daily for 30 days. fentaNYL 2022-10- Yes 1{patch Place [address] (DURAGESIC) 10-17 } patch onto L ukes 50 mcg/hr 00:00: 23:59 the skin Med ical patch 00 :00 every Center third day for 30 days. Max Daily Amount: 1 patch ferrous 2022-10- Yes 325mg QD Take [address] [facility] sulfate 325 10-17 tablet [facility] (65 FE) MG 00:00: 23:59 (325 mg Med ical tablet 00 :00 total) by Center mouth daily for 30 days. fentaNYL 2022-10- Yes 1{patch Place [address] (DURAGESIC) 10-17 } patch onto L ukes 50 mcg/hr 00:00: 23:59 the skin Med ical patch 00 :00 every Center third day for 30 days. Max Daily Amount: 1 patch fentaNYL 2022-10- No 1{patch Place [address] (DURAGESIC) 10-17 } patch onto L ukes 50 mcg/hr 00:00: 00:00 the skin Med ical patch 00 :00 every Center third day for 30 days. Max Daily Amount: 1 patch fentaNYL 2022-10- No 1{patch Place [address] (DURAGESIC) 10-17 } patch onto L ukes 50 mcg/hr 00:00: 00:00 the skin Med ical patch 00 :00 every Center third day for 30 days. Max Daily Amount: 1 patch allopurinoL 2022-10- Yes 100mg QD Take [address] (ZYLOPRIM) 10-16 tablet [facility] 100 MG 00:00: 23:59 (100 mg Medical tablet 00 :00 total) by Center mouth daily for 30 days. allopurinoL 2022-10- Yes 100mg QD Take [address] (ZYLOPRIM) 10-16 tablet [facility] 100 MG 00:00: 23:59 (100 mg Medical tablet 00 :00 total) by Center mouth daily for 30 days. furosemide 2022-10- No 40mg QD Take [address] [facility] (LASIX) 40 0-31 10-31 tablet (40 Cailin kes MG tablet 14:16: 00:00 mg total) Me dical 09 :00 by mouth Center daily. furosemide 2022-10- No 40mg QD Take [address] [facility] (LASIX) 40 0-31 10-31 tablet (40 Cailin kes MG tablet 14:16: 00:00 mg total) Me dical 09 :00 by mouth Center daily. lactulose 2022-10- Yes 20g Q.5D Take [address] (CHRONULAC) 0-31 11-30 mLs (20 g Cailin kes 20 gram/30 00:00: 23:59 total) by edical mL solution 00 :00 mouth 2 Cente r (two) times daily for 30 days. senna-docus 2022-10- Yes 2{tbl} QD Take [address] ate 0-31 11-30 tablets by [facility] (SENOKOT S) 00:00: 23:59 mouth Medi eliel 8.6-50 mg 00 :00 nightly Center per tablet for 30 days. lactulose 2022-10- Yes 20g Q.5D Take [address] (CHRONULAC) 0-31 11-30 mLs (20 g Cailin kes 20 gram/30 00:00: 23:59 total) by M edical mL solution 00 :00 mouth 2 Cente r (two) times daily for 30 days. senna-docus 2022-10- Yes 2{tbl} QD Take [address] ate 0-31 11-30 tablets by [facility] (SENOKOT S) 00:00: 23:59 mouth Medi eliel 8.6-50 mg 00 :00 nightly Center per tablet for 30 days. HYDROmorpho 2022-10- No Colorectal 6mg Take [address] ne 0-31 11-10 cancer tablets (6 [facility] (DILAUDID) 00:00: 23:59 (HCC) mg total) Medical 2 MG tablet 00 :00 by mouth Cent er every 6 (six) hours as needed for up to 10 days. Max Daily Amount: 24 mg HYDROmorpho 2022-10- Yes Colorectal 6mg Take [address] ne 0-31 11-10 cancer tablets (6 [facility] (DILAUDID) 00:00: 23:59 (HCC) mg total) Medical 2 MG tablet 00 :00 by mouth Cent er every 6 (six) hours as needed for up to 10 days. Max Daily Amount: 24 mg HYDROmorpho 2022-10- No 6mg Take [address] ne 0-31 10-31 tablets (6 [facility] (DILAUDID) 00:00: 00:00 mg total) M edical 2 MG tablet 00 :00 by mouth Cent er every 6 (six) hours as needed for up to 10 days. Max Daily Amount: 24 mg HYDROmorpho 2022-10- No 6mg Take [address] ne 0-31 10-31 tablets (6 [facility] (DILAUDID) 00:00: 00:00 mg total) M edical 2 MG tablet 00 :00 by mouth Cent er every 6 (six) hours as needed for up to 10 days. Max Daily Amount: 24 mg HYDROcodone 3-1 Yes [id number] 1{tbl} Q6H Take 1 M ethodi -acetaminop 0-[address] [facility] ([employer]) 00:00: mouth Hospi ta 7.5-325 mg 00 every 6 l per tablet (six) hours as needed for moderate pain .chronic pain. Max Daily Amount: 4 tablets HYDROcodone 2022-1 Yes [id number] 1{tbl} Q6H Take 1 M ethodi -acetaminop 0-[address] hen ([employer]) 00:00: mouth Hospi ta 7.5-325 mg 00 every 6 l per tablet (six) hours as needed for moderate pain .chronic pain. Max Daily Amount: 4 tablets HYDROcodone 2022-1 2022- No [id number] 1{tbl} Q6H Take 1 Methodi -acetaminop 0-14 11-[address] hen ([employer]) 00:00: 00:00 mouth Hosp cristy 7.5-325 mg 00 :00 every 6 l per tablet (six) hours [...] 08 total) by l mouth daily. regorafenib 2023-0 2023- No 160mg QD Take 4 Me thodi (STIVARGA) 07-02-[address] 40 mg chemo 18:28: 00:00 (160 mg Ho spita tablet 08 :00 total) by l mouth daily. regorafenib 2023-0 2023- No 160mg QD Take 4 Me thodi (STIVARGA) 07-02-[address] 40 mg chemo 18:28: 00:00 (160 mg Ho spita tablet 08 :00 total) by l mouth daily. regorafenib 2023-0 2023- No 160mg QD Take 4 Me thodi (STIVARGA) 07-[address] 40 mg chemo 18:28: 00:00 (160 mg Ho spita tablet 08 :00 total) by l mouth daily. polyethylen 2022-0 3- No 17g QD Take 17 g Methodi e glycol 9-17 10-[address] (MIRALAX) 00:00: 04:59 daily for Ho spita 17 gram 00 :00 30 days. l packet polyethylen 2022-0 2023- Yes 17g QD Take 17 g Methodi e glycol 9-17 10-[address] (MIRALAX) 00:00: 04:59 daily for Ho spita 17 gram 00 :00 30 days. l packet polyethylen 2022-0 2023- No 17g QD Take 17 g Methodi e glycol - 10-[address] (MIRALAX) 00:00: 04:59 daily for Ho spita 17 gram 00 :00 30 days. l packet furosemide 2022-0 2022- No 40mg QD Take 1 Meth cordelia (LASIX) 40 07-01 tablet (40 st mg tablet 19:35: 00:00 mg total) Ho spita 03 :00 by mouth l daily. furosemide 2022-0 3- No 40mg QD Take 1 Meth cordelia (LASIX) 40 07-01- tablet (40 st mg tablet 19:35: 00:00 mg total) Ho spita 03 :00 by mouth l daily. furosemide 2022-0 3- No 40mg QD Take 1 Meth cordelia (LASIX) 40 07-01 tablet (40 st mg tablet 19:35: 00:00 [...] caity 58 by mouth l daily. morPHINE 3-0 Yes [id number] 15mg Q.5D Take 1 Method i (MS CONTIN) 9-16 tablet (15 st 15 MG 12 hr 00:00: mg total) H ospita tablet 00 by mouth l every 12 (twelve) hours .chronic pain. Max Daily Amount: 30 mg morPHINE 2023-0 Yes [id number] 15mg Q4H Take 1 Method i immediate-r 9-16 tablet (15 st elease 15 00:00: mg total) Hos caity MG tablet 00 by mouth l every 4 (four) hours as needed for severe pain .acute pain, chronic pain. Max Daily Amount: 90 mg HYDROcodone 2023-0 Yes [id number] 1{tbl} Q4H Take 1 M ethodi -acetaminop 9-[address] [facility] ([employer]) 00:00: mouth Hospi ta 10-325 mg 00 every 4 l per tablet (four) hours as needed for moderate pain .acute pain. Max Daily Amount: 6 tablets morPHINE 2023-0 Yes [id number] 15mg Q.5D Take 1 Method i (MS CONTIN) 9-16 tablet (15 st 15 MG 12 hr 00:00: mg total) H ospita tablet 00 by mouth l every 12 (twelve) hours .chronic pain. Max Daily Amount: 30 mg morPHINE 2023-0 Yes [id number] 15mg Q4H Take 1 Method i immediate-r 9-16 tablet (15 st elease 15 00:00: mg total) Hos caity MG tablet 00 by mouth l every 4 (four) hours as needed for severe pain .acute pain, chronic pain. Max Daily Amount: 90 mg HYDROcodone 2023-0 Yes [id number] 1{tbl} Q4H Take 1 M ethodi -acetaminop 9-[address] [facility] ([employer]) 00:00: mouth Hospi ta 10-325 mg 00 every 4 l per tablet (four) hours as needed for moderate pain .acute pain. Max Daily Amount: 6 tablets morPHINE 2023-0 2023- No [id number] 15mg Q.5D Take 1 Metho di (MS CONTIN) 9-16 11-29 tablet (15 s t 15 MG 12 hr 00:00: 00:00 mg total) Hospita tablet 00 :00 by mouth l every 12 (twelve) hours .chronic pain. Max Daily Amount: 30 mg morPHINE 2023-0 2023- No [id number] 15mg Q4H Take 1 Metho di immediate-r 9-16 11-29 tablet (15 s t elease 15 00:00: 00:00 mg total) Ho spita MG tablet 00 :00 by mouth l every 4 (four) hours as needed for severe pain .acute pain, chronic pain. Max Daily Amount: 90 mg HYDROcodone 2022- No [id number] 1{tbl} Q4H Take 1 Methodi -acetaminop 9-16 11-[address] [facility] ([employer]) 00:00: 00:00 mouth Hosp cristy 10-325 mg 00 :00 every 4 l per tablet (four) hours as needed for moderate pain .acute pain. Max Daily Amount: 6 tablets ondansetron 2022-0 2022- No 8mg Q8H Take 1 Met hodi (Zofran) 8 9-16 10-17 tablet (8 st MG tablet 00:00: 04:59 mg total) Ho spita 00 :00 by mouth l every 8 (eight) hours as needed for nausea or vomiting for up to 30 days. ondansetron 2022-0 2022- No 8mg Q8H Take 1 Met hodi (Zofran) 8 9-16 10-17 tablet (8 st MG tablet 00:00: 04:59 mg total) Ho spita 00 :00 by mouth l every 8 (eight) hours as needed for nausea or vomiting for up to 30 days. ondansetron 2022-0 3- No 8mg Q8H Take 1 Met hodi (Zofran) 8 9-16 10-17 tablet (8 st [facility] tablet 00:00: 04:59 mg total) Ho spita 00 :00 by mouth l every 8 (eight) hours as needed for nausea or vomiting for up to 30 days. HYDROcodone 2022-0 2022- No 1{tbl} Q6H Take 1 M ethodi -acetaminop -10 24- tablet by [facility] ([employer]) 00:00: 00:00 mouth [facility] 10-325 mg 00 :00 every 6 l per tablet (six) hours. HYDROcodone 2022-0 2022- No 1{tbl} Q6H Take 1 M ethodi -acetaminop -10 24-[address] [facility] ([employer]) 00:00: 00:00 mouth [facility] 10-325 mg 00 :00 every 6 l per tablet (six) hours. HYDROcodone 2022-0 2023- No 1{tbl} Q6H Take 1 M ethodi -acetaminop 06-16 09-[address] hen ([facility]) 00:00: 00:00 [...] 05 by mouth l daily. ertapenem 1 3-0 2023- No 1g Q24H Infuse 1 g Methodi g in sodium -04-[address] chloride 00:00: 04:59 venous Hospit a 0.9 % MBP 00 :00 catheter l 50 mL IVPB daily for 14 days. ertapenem 1 3-0 2023- No 1g Q24H Infuse 1 g Methodi g in sodium -04-[address] chloride 00:00: 04:59 venous [...] mL IVPB daily for 14 days. furosemide 3-0 Yes 40mg QD Take 1 [...] 32 by mouth l daily. linezolid 2022-0 202- No 600mg Q.5D Take 1 Meth cordelia [...] a day for 14 days. linezolid 2022-0 202- No 600mg Q.5D Take 1 Meth cordelia [...] a day for 14 days. carvedilol 2022-0 2023- No 20mg Take 1 Univ ers 20 mg 24 hr 3-02 03-02 capsule by i ty of capsule 16:06: 00:00 mouth in [place] 28 :00 the Medical morning. Branch carvedilol 2022-0 2023- No 20mg Take 1 Univ ers 20 mg 24 hr 3-02 03-02 capsule by i ty of capsule 16:06: 00:00 mouth in [place] 28 :00 the Medical morning. Branch carvedilol 2022-0 Yes [id number] 20mg Take 1 U nivers 20 mg 24 hr 3-02 capsule by it y of capsule 00:00: mouth in [place] 00 the Medical morning. Branch furosemide 2022-0 Yes [id number] 40mg Take 1 U nivers 40 mg 3-02 tablet by ity of tablet 00:00: mouth in [place] 00 the Medical morning. Branch carvedilol 2022-0 Yes [id number] 20mg Take 1 U nivers 20 mg 24 hr 3-02 capsule by it y of capsule 00:00: mouth in [place] 00 the Medical morning. Branch furosemide 3-0 Yes [id number] 40mg Take 1 U nivers 40 mg 3-02 tablet by ity of tablet 00:00: mouth in [place] 00 the Medical morning. Branch carvedilol 2022-0 Yes [id number] 20mg Take 1 U nivers 20 mg 24 hr 3-02 capsule by it y of capsule 00:00: mouth in [place] 00 the Medical morning. Branch furosemide 3-0 Yes [id number] 40mg Take 1 U nivers 40 mg 3-02 tablet by ity of tablet 00:00: mouth in [place] 00 the Medical morning. Branch carvedilol 2022-0 Yes [id number] 20mg Take 1 U nivers 20 mg 24 hr 3-02 capsule by it y of capsule 00:00: mouth in [place] 00 the Medical morning. Branch furosemide 3-0 Yes [id number] 40mg Take 1 U nivers 40 mg 3-02 tablet by ity of tablet 00:00: mouth in [place] 00 the Medical morning. Branch carvedilol 3-0 Yes [id number] 20mg Take 1 U nivers 20 mg 24 hr 3-02 capsule by it y of capsule 00:00: mouth in [place] 00 the Medical morning. Branch furosemide 3-0 Yes [id number] 40mg Take 1 U nivers 40 mg 3-02 tablet by ity of tablet 00:00: mouth in [place] 00 the Medical morning. Branch carvedilol 3-0 Yes [id number] 20mg Take 1 U nivers 20 mg 24 hr 3-02 capsule by it y of capsule 00:00: mouth in [place] 00 the Medical morning. Branch furosemide 3-0 Yes [id number] 40mg Take 1 U nivers 40 mg 3-02 tablet by ity of tablet 00:00: mouth in [place] 00 the Medical morning. Branch carvedilol 2022-0 3- No [id number] 20mg Take 1 Univers 20 mg 24 hr -11 26- capsule by i ty of capsule 00:00: 00:00 mouth in [place] 00 :00 the Medical morning. Branch furosemide 2022-0 2023- No [id number] 40mg Take 1 Univers 40 mg -11 26- tablet by ity of tablet 00:00: 00:00 mouth in [place] 00 :00 the Medical morning. Branch carvedilol 2022-0 2023- No 20mg QD Take [address] [facility] (COREG CR) 3- 10-31 [facility] 20 MG 24 hr 00:00: 00:00 (20 mg Med ical capsule 00 :00 total) by Center mouth every morning. carvedilol 3-0 3- No 20mg QD Take [address] [facility] (COREG CR) 3- 10-31 capsule [facility] 20 MG 24 hr 00:00: 00:00 (20 mg Med ical capsule 00 :00 total) by Center mouth every morning. amoxicillin 2023-0 Yes 875mg Take 1 Uni vers 875 mg 2-24 tablet by ity of tablet 00:00: mouth [place] 00 every 12 Medical (twelve) Branch hours. amoxicillin 2023-0 Yes 875mg Take 1 Uni vers 875 mg 2-24 tablet by ity of tablet 00:00: mouth [place] 00 every 12 Medical (twelve) Branch hours. [...] Take 1 Meth cordelia CR (COREG 1-19 -[address] CR) 20 MG 15:19: 00:00 [...] 2 (two) times a day. carvediloL 3-0 3- No 12.5mg Q.5D Take [...] (two) times a day for 30 days. tamsulosin 2023-0 Yes .4mg Take 1 [facility] 1[facility]06 [facility] 0.4 mg Cap 00:00: (0.4 mg Medi eliel 24 hr 00 total) by Center capsule mouth once at bedtime. tamsulosin 2023-0 Yes .4mg Take 1 [facility] 1[facility]06 [facility] 0.4 mg Cap 00:00: (0.4 mg Medi eliel 24 hr 00 total) by Center capsule mouth once at bedtime. furosemide 2021-10- No 40mg Take 1 Univ ers 40 mg 12-07 tablet by ity of tablet 00:00: 00:00 mouth in [place] 00 :00 the Medical morning. Branch furosemide 2021-103- No 40mg Take 1 Univ ers 40 mg 12-07 tablet by ity of tablet 00:00: 00:00 mouth in [place] 00 :00 the Medical morning. Branch No [...] Immunizations Ordered Filled Immunization Date Status Comments [facility] e Immunization Name Name FLUCELVAX QUAD PF [...] [facility] FLUCELVAX QUAD PF Unknown Completed [facility] Vital Signs Vital Name Observation Time Observation Value Comments Source Systolic blood 2023-08-22 17:08:00 106 mm[Hg] Univer sity of [facility] Diastolic blood 2023-08-22 17:08:00 77 mm[Hg] Unive rsity [facility] Heart rate 2023-08-22 17:08:00 101 /min [facility] Body temperature 2023-08-22 17:08:00 36.39 Mary Carmen [facility] rate 2023-08-22 17:08:00 16 /min [facility] Oxygen saturation in 2023-08-22 17:08:00 98 /min [facility] blood by [facility] Pulse oximetry Branch Body weight 2023-08-22 09:04:00 73.483 kg [facility] BMI 2023-08-22 09:04:00 20.80 kg/m2 [facility] Body height 2023-08-18 02:40:00 188 cm [facility] WEIGHT 2023-08-10 07:45:00 72.349 kg WEIGHT [...] 21:45:00 126 mm[Hg] Univer sity of pressure [facility] Diastolic blood 2022-12-15 21:45:00 86 mm[Hg] Unive rsity of pressure [facility] Heart rate 2022-12-15 21:45:00 104 /min Universi ty [facility] Body temperature 2022-12-15 21:45:00 35.94 Mary Carmen Univ ersity of [facility] Body height 2022-12-15 21:45:00 188 cm Universi ty [facility] Body weight 2022-12-15 21:45:00 106.595 kg [facility] BMI 2022-12-15 21:45:00 30.17 kg/m2 [facility] Oxygen saturation in 2022-12-15 21:45:00 97 /min University Arterial blood by [facility] Pulse oximetry [place] Heart rate 2023-09-13 22:59:00 94 /min [facility] [place] Respiratory rate 2023-09-13 22:59:00 14 /min [facility] Systolic blood 2023-09-13 21:40:59 123 mm[Hg] [facility] pressure Diastolic blood 2023-09-13 21:40:59 77 mm[Hg] [facility] pressure Body temperature 2023-09-13 21:40:59 37.28 Mary Carmen [facility] Oxygen saturation in 2023-09-13 21:40:59 99 /min [facility] Arterial blood by Pulse oximetry Body height 2023-09-08 19:55:[address] [facility] [place] Body weight 2023-09-08 19:55:[address] [facility] [place] BMI 2023-09-08 19:55:00 24.14 kg/m2 [facility] [place] Heart rate 2023-08-15 15:04:17 94 /min [facility] Respiratory rate 2023-08-15 15:04:17 17 /min [facility] Oxygen saturation in 2023-08-15 15:04:17 98 /min [facility] Arterial blood by Medical nter Pulse oximetry Body temperature 2023-08-15 15:03:25 36.67 Mary Carmen [facility] Systolic blood 2023-08-15 15:03:15 97 mm[Hg] [facility] Diastolic blood 2023-08-15 15:03:15 76 mm[Hg] [facility] Body weight 2023-08-10 07:45:00 72.349 kg [facility] BMI 2023-08-10 07:45:00 20.48 kg/m2 [facility] Body height 2023-08-02 09:01:00 188 cm [facility] Systolic blood 2023-07-01 20:39:20 104 mm[Hg] Method [facility] Hospital pressure Diastolic blood 2023-07-01 20:39:20 64 mm[Hg] [facility] pressure Heart rate 2023-07-01 20:39:20 78 /min [facility] [place] Body temperature 2023-07-01 20:39:20 37.06 Mary Carmen [facility] Respiratory rate 2023-07-01 20:39:20 18 /min [facility] Oxygen saturation in 2023-07-01 20:39:20 97 /min [facility] Arterial blood by Pulse oximetry Body weight 2023-06-27 08:29:[address] [facility] [place] BMI 2023-06-27 08:29:31 24.21 kg/m2 [facility] [place] Body height 2023-06-26 20:43:[address] [facility] [place] Systolic blood 2023-03-28 21:07:06 122 mm[Hg] Method [facility] pressure Diastolic blood 2023-03-28 21:07:06 78 mm[facility]Hg[facility] pressure Heart rate 2023-03-28 21:07:06 84 /min [facility] [place] Body temperature 2023-03-28 21:07:06 36.17 Mary Carmen [facility] Respiratory rate 2023-03-28 21:07:06 18 /min [facility] Oxygen saturation in 2023-03-28 21:07:06 97 /min [facility] Arterial blood by Pulse oximetry Body height 2023-03-23 00:01:[address] [facility] [place] Body weight 2023-03-23 00:01:[address] [facility] [place] BMI 2023-03-23 00:01:00 32.10 kg/m2 [facility] [place] Systolic blood 2022-11-02 13:50:01 147 mm[Hg] [facility] pressure Diastolic blood 2022-11-02 13:50:01 87 mm[Hg] [facility] pressure Heart rate 2022-11-02 13:50:01 90 /min [facility] [place] Body temperature 2022-11-02 13:50:01 36 Mary Carmen [facility] Respiratory rate 2022-11-02 13:50:01 18 /min [facility] Oxygen saturation in 2022-11-02 13:50:01 99 /min [facility] Arterial blood by Pulse oximetry Body height 2022-10-25 11:00:[address] [facility] [place] Body weight 2022-10-25 11:00:[address] [facility] [place] BMI 2022-10-25 11:00:00 32.10 kg/m2 [facility] [place] Procedures Procedure Date / Time Performing Clinician Source Performed CBC HEMOGRAM 2023-09-13 22:10:00 [facility] TRANSFUSE RED BLOOD CELLS 2023-09-13 18:38:00 [facility] POC GLUCOSE 2023-09-13 16:51:00 Lacho Kelley [facility] IR BILATERAL NEPHROSTOMY 2023-09-13 16:08:00 [facility] EVAL/POSSIBLE EXCHANGE DURABLE MEDICAL EQUIPMENT 2023-09-13 14:59:20 Lacho Kelley [facility] COMPREHENSIVE METABOLIC 2023-09-13 11:14:00 [facility] PANEL CBC WITH PLATELET AND 2023-09-13 11:14:00 [facility] DIFFERENTIAL MAGNESIUM LEVEL 2023-09-13 11:14:00 [facility] PHOSPHORUS LEVEL 2023-09-13 11:14:00 [facility] ESTIMATED GFR 2023-09-13 11:14:00 Lacho Kelley [facility] SMEAR REVIEW 2023-09-13 11:14:[address] [facility] POC GLUCOSE 2023-09-13 03:10:00 Kelley, [facility] CBC HEMOGRAM 2023-09-12 23:32:00 [facility] TRANSFUSE RED BLOOD CELLS 2023-09-12 19:00:00 [facility] TYPE AND SCREEN 2023-09-12 14:48:00 [facility] PREPARE RBC 2023-09-12 14:48:00 [facility] PREPARE RBC 2023-09-12 14:48:00 [facility] COMPREHENSIVE METABOLIC 2023-09-12 12:42:00 [facility] PANEL CBC WITH PLATELET AND 2023-09-12 12:42:00 [facility] DIFFERENTIAL MAGNESIUM LEVEL 2023-09-12 12:42:00 [facility] PHOSPHORUS LEVEL 2023-09-12 12:42:00 [facility] RETICULOCYTE COUNT 2023-09-12 12:42:00 [facility] FERRITIN LEVEL 2023-09-12 12:42:00 [facility] FOLATE LEVEL 2023-09-12 12:42:00 [facility] TOTAL IRON BINDING 2023-09-12 12:42:00 [facility] CAPACITY THYROID STIMULATING 2023-09-12 12:42:00 [facility] HORMONE VITAMIN B12 LEVEL 2023-09-12 12:42:00 [facility] PROTHROMBIN TIME WITH INR 2023-09-12 12:42:00 Radha Roberts [facility] ESTIMATED GFR 2023-09-12 12:42:00 [facility] S[facility] RE[facility] 2023-09-12 12:42:00 [facility] POC GLUCOSE 2023-09-12 04:05:00 [facility] NM RENAL SCAN WFLOW FUNCT 2023-09-11 20:28:00 Tyler [facility] SGL INT W/MAG 3 [place] BASIC METABOLIC PANEL 2023-09-11 18:04[facility]IM[facility] GFR 2023-09-11 18:04[facility]00 [facility] POC GLUCOSE 2023-09-11 16:58:00 [facility] P[facility]SE 2023-09-11 14:30:00 [facility] POC GLUCOSE 2023-09-11 13:25:00 [facility] POC GLUCOSE 2023-09-11 12:41:00 Warren [facility] POC GLUCOSE 2023-09-11 12:02:00 [facility] [place] HEMOGLOBIN & HEMATOCRIT 2023-09-11 10:39:00 Devin [facility] ECG 12-LEAD 2023-09-11 10:01:24 [facility]in [facility] spital BASIC METABOLIC PANEL 2023-09-11 07:50:00 [facility] [place] VENOUS BLOOD GAS 2023-09-11 07:50:00 [facility] [place] CBC WITH PLATELET AND 2023-09-11 07:50:00 Costa Rodríguez [facility] DIFFERENTIAL ESTIMATED GFR 2023-09-11 07:50:00 [facility] [place] MAGNESIUM LEVEL 2023-09-11 07:50:00 [facility] [place] PHOSPHORUS LEVEL 2023-09-11 07:50:00 [facility] [place] NT-PROBNP 2023-09-11 07:50:00 [facility] [place] SMEAR REVIEW 2023-09-11 07:50:00 [facility] [place] POC GLUCOSE 2023-09-11 07:44:00 [facility] POC GLUCOSE 2023-09-11 05:38:00 [facility] POC GLUCOSE 2023-09-11 05:29:00 [facility] [place] SODIUM LEVEL, URINE, 2023-09-11 04:50:00 [facility] [place] CHLORIDE LEVEL, URINE, 2023-09-11 04:50:00 Tyler [facility] RANDOM [place] POTASSIUM, URINE, RANDOM 2023-09-11 04:50:00 Howard Scott [facility] [place] POC GLUCOSE 2023-09-11 04:48:00 [place], [facility] POC GLUCOSE 2023-09-11 04:14:00 [facility] POC GLUCOSE 2023-09-11 03:15:00 [facility] [place] POC GLUCOSE 2023-09-11 03:04:00 [facility] [place] POC GLUCOSE 2023-09-11 02:38:00 [facility] POTASSIUM LEVEL 2023-09-11 00:22:00 [facility] 2023-09-10 22:20:00 [facility] POC GLUCOSE 2023-09-10 21:03:00 [facility] POTASSIUM LEVEL 2023-09-10 19:32:[address] [facility] [place] BASIC METABOLIC PANEL 2023-09-10 17:21:00 Tyler [facility] Wilfred ESTIMATED GFR 2023-09-10 17:21:00 [facility] 2023-09-10 17:16:00 [facility] POC GLUCOSE 2023-09-10 15:30:00 [facility] POC GLUCOSE 2023-09-10 14:07:00 [facility] POC GLUCOSE 2023-09-10 13:43:00 [facility] CBC WITH PLATELET AND 2023-09-10 10:10:00 Marcos [facility] DIFFERENTIAL COMPREHENSIVE METABOLIC 2023-09-10 10:10:00 [facility] PANEL MAGNESIUM LEVEL 2023-09-10 10:10:00 Marcos [facility] spital PHOSPHORUS LEVEL 2023-09-10 10:10:00 Marcos [facility] ospital CARCINOEMBRYONIC ANTIGEN 2023-09-10 10:10:00 RamírezKwasi [facility] ESTIMATED GFR 2023-09-10 10:10:00 [facility] [place] POTASSIUM LEVEL 2023-09-10 01:00:00 Clewing[facility] P[facility] GLUCOSE 2023-09-10 00:57:00 Clewing[facility] POC GLUCOSE 2023-09-10 00:31:00 Cle[facility] POC GLUCOSE 2023-09-09 23:56:00 Clewing, [facility] ECG 12-LEAD 2023-09-09 22:48:36 Michael Licona Ho spital POTASSIUM LEVEL 2023-09-09 19:31:00 Michael Licona Ho spital POC GLUCOSE 2023-09-09 16:36:00 Clewing[facility] POC GLUCOSE 2023-09-09 15:44:00 Clewing, [facility] ECG 12-LEAD 2023-09-09 15:41:25 Jimmy Gore Ho spital [place] CBC WITH PLATELET AND 2023-09-09 11:00:00 [facility] DIFFERENTIAL COMPREHENSIVE METABOLIC 2023-09-09 11:00:00 Marcos [facility] PANEL MAGNESIUM LEVEL 2023-09-09 11:00:00 Marcos [facility] spital PHOSPHORUS LEVEL 2023-09-09 11:00:00 Marcos [facility] ospital ESTIMATED GFR 2023-09-09 11:00:00 [facility] SMEAR REVIEW 2023-09-09 11:00:00 [facility] HAPTOGLOBIN 2023-09-09 11:00:00 [facility] CREATINE KINASE, TOTAL 2023-09-09 11:00:00 [facility] [place] LDH 2023-09-09 11:00:00 [facility] ESTIMATED GFR 2023-09-09 10:30:00 Jimmy Gore spital [place] POC GLUCOSE 2023-09-09 07:12:00 [facility] URINE CULTURE 2023-09-09 06:48:00 Jimmy Gore spital [place] BASIC METABOLIC PANEL 2023-09-09 04:55:00 [facility] [place] HIV 1/2 ANTIGEN/ANTIBODY, 2023-09-09 04:55:00 [facility], WITH REFLEXES URINALYSIS SCREEN AND 2023-09-09 04:55:00 [facility] MICROSCOPY, WITH REFLEX TO CULTURE ESTIMATED GFR 2023-09-09 04:55:00 Jimmy Gore spital [place] MAGNESIUM LEVEL 2023-09-09 04:55:00 Jimmy Gore spital [place] PHOSPHORUS LEVEL 2023-09-09 04:55:00 Jimmy Gore H ospital [place] POC GLUCOSE 2023-09-09 02:57:00 [facility] POC GLUCOSE 2023-09-09 02:13:00 [facility] ECG ED PRELIMINARY 2023-09-09 01:11:26 Boa [facility] INTERPRETATION [place] CT RENAL STONE PROTOCOL 2023-09-09 00:32:26 Bao [facility] [place] ECG 12-LEAD 2023-09-08 23:58:52 Jimmy Gore spital [place] CBC WITH PLATELET AND 2023-09-08 23:53:00 [facility] DIFFERENTIAL [place] BASIC METABOLIC PANEL 2023-09-08 23:53:00 [facility] [place] ESTIMATED GFR 2023-09-08 23:53:00 [facility] [place] [facility]ST 1 VW PORTABLE 2023-09-08 22:28:00 Jimmy Gore [facility] [place] RENAL PANEL 2023-08-22 18:29:00 Harshil Miranda [facility] CBC WITH DIFF 2023-08-22 11:53:00 Mer Arreguin [facility] BASIC METABOLIC PANEL (NA, 2023-08-22 01:18:00 Mer Arreguin [facility] K, CL, CO2, GLUCOSE, BUN, Medica l Branch CREATININE, CA) BASIC METABOLIC PANEL (NA, 2023-08-21 11:10:00 Mer Arreguin [facility] K, CL, CO2, GLUCOSE, BUN, Medica l Branch CREATININE, CA) CBC WITH DIFF 2023-08-21 11:10:00 Rodríguez [facility] N-TERMINAL PRO-BNP 2023-08-21 11:10:[address] [facility] TRANSTHORACIC ECHO (TTE) 2023-08-20 14:13:00 Linda Yu [facility] COMPLETE W/ CONTRAST Medical [facility] BASIC METABOLIC PANEL (NA, 2023-08-20 08:16:00 Thu Vergara [facility] K, CL, CO2, GLUCOSE, BUN, Medica l Branch CREATININE, CA) CBC WITH DIFF 2023-08-20 08:16:00 Madhuri Vergara [facility] COMP. METABOLIC PANEL 2023-08-19 09:00:00 Alma Bonilla [facility] ([id number]) [facility] CBC WITH DIFF 2023-08-19 09:00:00 Alma Bonilla [facility] N-TERMINAL PRO-BNP 2023-08-19 09:00:00 Alma Bonilla [facility] UREA NITROGEN, URINE 2023-08-18 13:44:00 Alma Bonilla [facility] URINALYSIS 2023-08-18 13:42:00 Plunkett, [facility] URINE CULTURE 2023-08-18 13:42:00 Kiarra [facility] SODIUM, URINE RANDOM 2023-08-18 13:41:00 Alma Bonilla [facility] PROTEIN CREAT RATIO URINE 2023-08-18 13:41:00 Alma Bonilla [facility] RANDOM [facility] BLOOD CULTURE SCREEN 2023-08-18 13:22:00 Alma Bonilla [facility] ACUTE CARE VENOUS BLOOD 2023-08-18 11:25:00 Alma Bonilla [facility] VITAMIN B12, LEVEL 2023-08-18 11:17:00 Alma Bonilla [facility] SEDIMENTATION RATE 2023-08-18 11:17:00 Alma Bonilla [facility] GLYCOSYLATED HEMOGLOBIN 2023-08-18 11:17:00 Alma Bonilla [facility] (A1C) [facility] PROCALCITONIN 2023-08-18 11:17:00 Alma Bonilla [facility] PHOSPHORUS 2023-08-18 11:16:00 Fadia naila [facility] URIC ACID 2023-08-18 11:16:00 Fadia naila [facility] MAGNESIUM 2023-08-18 11:16:00 Fadia naila [facility] C-REACTIVE PROTEIN 2023-08-18 11:16:00 Alma Bonilla [facility] THYROID STIMULATING 2023-08-18 11:16:00 Alma Bonilla [facility] HORMONE [facility] LIPID PANEL ([id number])(TOTAL 2023-08-18 11:16:00 Alma Bonilla [facility] TRIGLY[facility], HDL) VITAMIN D, 25-OH 2023-08-18 11:15:00 Fadia naila [facility] PROTHROMBIN TIME / INR 2023-08-18 11:14:[address] [facility] POCT GLUCOSE (AUTOMATED) 2023-08-18 08:40:00 Alma Bonilla [facility] POCT GLUCOSE (AUTOMATED) 2023-08-18 07:57:00 Alma Bonilla [facility] HB ECG ROUTINE & RHYTHM 2023-08-18 07:56:14 Kiarra [facility] STRIP [facility] CT ABDOMEN PELVIS WO 2023-08-18 06:10:18 Kiarra [facility] CONTRAST [facility] LACTIC ACID WHOLE BLOOD 2023-08-18 04:14:00 Kiarra [facility] BLOOD CULTURE SCREEN 2023-08-18 04:10:00 Kiarra Jacinto [facility] COMP. METABOLIC PANEL 2023-08-18 04:10:00 Kiarra Jacinto [facility] ([id number]) [facility] CBC WITH DIFF 2023-08-18 04:10:00 Kiarra [facility] XR CHEST 1 VW 2023-08-18 03:51:55 Kiarra [facility] NOTICE OF PRIVACY 2023-08-18 02:23:51 Doctor Unassigned, No [facility] PRACTICES Name [facility] CONSENT/REFUSAL FOR 2023-08-18 02:23:15 Doctor Unassigned, No [facility] DIAGNOSIS AND TREATMENT Name [facility] BASIC METABOLIC PANEL 2023-08-15 04:24:00 Bacilio Galloway [facility] CBC W/PLT COUNT & AUTO 2023-08-15 04:24:00 Bacilio Galloway [facility]ENTIAL [facility] [place] MAGNESIUM 2023-08-15 04:24:00 Spencer Moreira [facility] CBC W/PLT COUNT & AUTO 2023-08-15 04:24:00 Bacilio Galloway [facility] DIFFERENTIAL [facility] [place] SODIUM, RANDOM URINE 2023-08-14 05:34:00 Alba Beltran CH I [facility] CHLORIDE, RANDOM URINE 2023-08-14 05:34:00 Alba Beltran CH[facility] OSMOLALITY, URINE 2023-08-14 05:34:00 Devin, Alba Khalid [facility] BASIC METABOLIC PANEL 2023-08-14 05:34:00 [facility]ilesh[facility] W/[facility]T COUNT & AUTO 2023-08-14 05:34:00 Nilesh Baciliomiguel ISLAS S gregoria [facility] MAGNESIUM 2023-08-14 05:34:00 Moreira, [facility] CBC W/PLT COUNT & AUTO 2023-08-14 05:34:00 Nilesh, Bacilio ISLAS S [facility] BASIC METABOLIC PANEL 2023 05:03:00 Nilesh, [facility] CBC W/PLT COUNT & AUTO 2023 05:03:00 Nilesh, Bacilio [facility] MAGNESIUM 2023 05:03:00 [facility] CBC W/PLT COUNT & AUTO 2023 05:03:00 Nilesh, Bacilio [facility] BASIC METABOLIC PANEL 2023-08-12 04:37:00 Nilesh, [facility] CBC W/PLT COUNT & AUTO 2023-08-12 04:37:00 Nilesh, Bacilio [facility] MAGNESIUM 2023-08-12 04:37:00 [facility] CBC W/PLT COUNT & AUTO 2023-08-12 04:37:00 Nilesh, Baciliomiguel ISLAS S [facility] BASIC METABOLIC PANEL 2023-08-11 05:50:00 Nilesh, [facility] CBC W/PLT COUNT & AUTO 2023-08-11 05:50:00 Nilesh, Bacilio [facility] MAGNESIUM 2023-08-11 05:50:00 [facility] LACTATE DEHYDROGENASE 2023-08-11 05:50:00 Alba Beltran [facility] CBC W/PLT COUNT & AUTO 2023-08-11 05:50:00 Bacilio Galloway [facility] S [facility] CT ABDOMEN/PELVIS WITHOUT 2023-08-10 17:39:02 Dipesh Kevinlillie roberts [facility] CONTRAST [facility] URINALYSIS W/ MICROSCOPIC 2023-08-10 14:41:00 Alba Beltran [facility] SODIUM, RANDOM URINE 2023-08-10 14:41:00 Alba Beltran CH I [facility] CHLORIDE, RANDOM URINE 2023-08-10 14:41:00 Alba Beltran [facility] PROTEIN, RANDOM URINE 2023-08-10 14:41:00 Alba Beltran [facility] CREATININE, RANDOM URINE 2023-08-10 14:41:00 Alba Beltran [facility] BASIC METABOLIC PANEL 2023-08-10 06:10:00 Nilesh Bacilio [facility] CBC W/PLT COUNT & AUTO 2023-08-10 06:10:00 Nilesh Bacilio [facility] MAGNESIUM 2023-08-10 06:10:00 [facility] LACTATE DEHYDROGENASE 2023-08-10 06:10:00 Alba Beltran [facility] URIC ACID 2023-08-10 06:10:00 Alba Beltran [facility] CBC W/PLT COUNT & AUTO 2023-08-10 06:10:00 Nilesh Bacilio [facility] BASIC METABOLIC PANEL 2023-08-09 03:59:00 Nilesh [facility] CBC W/PLT COUNT & AUTO 2023-08-09 03:59:00 Nilesh Bacilio [facility] t [facility] DIFFERENTIAL [facility] [place] MAGNESIUM 2023-08-09 03:59:00 Moreira [facility] CBC W/PLT COUNT & AUTO 2023-08-09 03:59:00 NileshBacilio robertson CHI S t [facility] DIFFERENTIAL [facility] [place] BASIC METABOLIC PANEL 2023-08-08 04:27:00 Nilesh, [facility] CBC W/PLT COUNT & AUTO 2023-08-08 04:27:00 Nilesh, Bacilio [facility] t [facility] DIFFERENTIAL [facility] [place] MAGNESIUM 2023-08-08 04:27:00 Harish [facility] CBC W/PLT COUNT & AUTO 2023-08-08 04:27:00 Nilesh, [facility] PREPARE LEUKO-REDUCED RBC 2023-08-07 23:55:00 [facility] VANCOMYCIN LEVEL, TROUGH 2023-08-07 10:53:00 Eve Vazquez [facility] BASIC METABOLIC PANEL 2023-08-07 04:11:00 Nilesh, [facility] CBC W/PLT COUNT & AUTO 2023-08-07 04:11:00 Nilesh, Bacilio [facility] DIFFERENTIAL [facility] [place] MAGNESIUM 2023-08-07 04:11:00 Moreira, [facility] CBC W/PLT COUNT & AUTO 2023-08-07 04:11:00 Nilesh [facility] TRANSFUSE LEUKO-RED RBC 2023-08-06 20:25:00 Moreira, [facility] SPLIT UNIT [facility] TRANSFUSE LEUKO-RED RBC 2023-08-06 13:14:00 Moreira, [facility] SPL[facility] UN[facility] ECG 12-LEAD 2023-08-06 11:30:33 Moreira, [facility] TYPE AND SCREEN, AUTOMATED 2023-08-06 09:33:00 Jaciel Moreiraeya C [facility] BASIC METABOLIC PANEL 2023-08-06 05:28:00 Nilesh, [facility] CBC W/PLT COUNT & AUTO 2023-08-06 05:28:00 Nilesh, Bacilio [facility] Rebecca iknney [facility] MAGNESIUM 2023-08-06 05:28:00 Harish [facility] CBC W/PLT COUNT & AUTO 2023-08-06 05:28:00 Nilesh, [facility] HEMOGLOBIN AND HEMATOCRIT 2023-08-05 17:07:00 Harish [facility] BASIC METABOLIC PANEL 2023-08-05 04:14:00 Nilesh, [facility] CBC W/PLT COUNT & AUTO 2023-08-05 04:14:00 Nilesh Bacilio [facility] MAGNESIUM 2023-08-05 04:14:00 Moreira, [facility] CBC W/PLT COUNT & AUTO 2023-08-05 04:14:00 Nilesh [facility] PREPARE LEUKO-REDUCED RBC 2023-08-04 23:55:00 Harish [facility] BASIC METABOLIC PANEL 2023-08-04 13:30:00 Nilesh [facility] CBC W/PLT COUNT & AUTO 2023-08-04 13:30:00 Nilesh [facility] IRON, TIBC, % SAT. 2023-08-04 13:30:00 Moreira, [facility] (WITHOUT FERRITIN) [facility] 2023-08-04 13:30:00 Moreira [facility] MAGNESIUM 2023-08-04 13:30:00 Moreira, [facility] CBC W/PLT COUNT & AUTO 2023-08-04 13:30:00 Nilesh [facility] TRANSFUSE LEUKO-RED RBC 2023-08-03 21:13:00 Moreira, Preeya [facility] S[facility] URINALYSIS W/ REFLEX URINE 2023-08-03 16:28:00 Moreira Jacielkarsten Keegan [facility] CULTURE [facility] URINE CULTURE 2023-08-03 16:28:00 Moreira, Jacielkatea [facility] TRANSFUSE LEUKO-RED RBC 2023-08-03 15:50:00 Moreira, Spencer [facility] SPLIT UNIT [facility] BASIC METABOLIC PANEL 2023-08-03 09:17:00 Bacilio Galloway [facility] CBC W/PLT COUNT & AUTO 2023-08-03 09:17:00 Nilesh [facility] DIFFERENTIAL [facility] [place] CBC W/PLT COUNT & AUTO 2023-08-03 09:17:00 Nilesh Bacilio [facility] DIFFERENTIAL [facility] [place] ECHO W CONTRAST & DOPPLER 2023-08-02 19:17:07 Bacilio Galloway CH I [facility] SODIUM, RANDOM URINE 2023-08-02 15:09:00 [facility] CREATININE, RANDOM URINE 2023-08-02 15:09:00 [facility] US RENAL COMPLETE 2023-08-02 14:51:00 [facility] ABORH, MANUAL 2023-08-02 10:23:00 India Lara [facility] BLOOD GAS, VENOUS 2023-08-02 10:12:00 Eve Cason [facility] BLOOD CULTURE 2023-08-02 10:12:00 Eve Cason [facility] URINALYSIS W/ REFLEX URINE 2023-08-02 09:53:00 Eve Cason Se [facility] URINE CULTURE 2023-08-02 09:53:00 Eve Cason [facility] CBC W/PLT COUNT & AUTO 2023-08-02 09:52:00 [facility] LACTIC ACID, VENOUS 2023-08-02 09:52:00 [facility] COMPREHENSIVE METABOLIC 2023-08-02 09:52:00 [facility]/INR 2023-08-02 09:52:00 SinghEve miller I [facility] APTT 2023-08-02 09:52:00 [facility] TYPE AND SCREEN, AUTOMATED 2023-08-02 09:52:00 SinghEve miller Se [facility] CBC W/PLT COUNT & AUTO 2023-08-02 09:52:00 KamlaEve [facility] XR CHEST 1 VIEW PORTABLE / 2023-08-02 09:25:00 SinghEve miller Se [facility] POC GLUCOSE 2023-07-01 19:33:00 [facility] 2023-07-01 18:13[facility]00 [facility] WITH PLATELET AND 2023-07-01 13:43:00 Derrick Dela Cruz [facility] [place] DIFFERENTIAL POC GLUCOSE 2023-07-01 12:59:00 [facility] NT-PROBNP 2023-07-01 08:54:00 [facility] BASIC METABOLIC PANEL 2023-07-01 08:54:00 [facility] ESTIMATED GFR 2023-07-01 08:54:00 [facility] POC GLUCOSE 2023-07-01 01:59:00 [facility] POC GLUCOSE 2023-06-30 22:47:00 [facility] POC GLUCOSE 2023-06-30 17:45:00 [facility] POC GLUCOSE 2023-06-30 13:43:00 [facility] COMPREHENSIVE METABOLIC 2023-06-30 13:08:00 HangFormer[facility] PANEL ESTIMATED GFR 2023-06-30 13:08:00 [place] [facility] CBC HEMOGRAM 2023-06-30 09:00:[address] [facility] POC GLUCOSE 2023-06-30 02:17:00 [facility] POC [facility]SE 2023-06-29 23:06:00 [place] [facility] POC GLUCOSE 2023-06-29 18:32:00 Hang [facility] POC GLUCOSE 2023-06-29 14:09:00 [facility] ESTIM[facility] GFR 2023-06-29 10:02:00 Nils Cowan spital URIC ACID LEVEL 2023-06-29 10:02:00 Derrick Dela Cruz spital SMEAR REVIEW 2023-06-29 10:02:00 Nils Cowan spital CBC WITH PLATELET AND 2023-06-29 10:02:00 Nils Cowan [facility] DIFFERENTIAL COMPREHENSIVE METABOLIC 2023-06-29 10:02:00 Nils Cowan [facility] PANEL NT-PROBNP 2023-06-29 10:02:00 [facility] CARCINOEMBRYONIC ANTIGEN 2023-06-29 10:02:00 Derrick Dela Cruz [facility] ([facility] POC GLUCOSE 2023-06-29 07:07:00 [facility] POC GLUCOSE 2023-06-28 17:55:00 [facility] PREPARE RBC 2023-06-28 16:14:00 Derrick Dela Cruz spital TYPE AND SCREEN 2023-06-28 16:14:00 Derrick Dela Cruz spital BASIC METABOLIC PANEL 2023-06-28 16:12:00 [facility] ESTIMATED GFR 2023-06-28 16:12:00 [facility] POC GLUCOSE 2023-06-28 16:11:00 [facility] VENOUS BLOOD GAS 2023-06-28 15:36:00 [facility] POC GLUCOSE 2023-06-28 15:35:00 [facility] PHOSPHORUS LEVEL 2023-06-28 15:09:00 [facility] NT-PROBNP 2023-06-28 15:09:00 [facility] BETA HYDROXYBUTYRATE 2023-06-28 15:09:00 [facility] POC GLUCOSE 2023-06-28 13:52:00 [facility] CBC WITH PLATELET AND 2023-06-28 10:16:00 Camryn [facility] DIFFERENTIAL COMPREHENSIVE METABOLIC 2023-06-28 10:16:00 Camryn [facility] PANEL ESTIMATED GFR 2023-06-28 10:16:00 Nils Cowan [facility] spital PHOSPHORUS LEVEL 2023-06-28 10:16:00 Nils Cowanist H ospital POC GLUCOSE 2023-06-28 02:24:00 [facility] POC GLUCOSE 2023-06-27 18:17:00 [facility] SODIUM LEVEL, URINE, 2023-06-27 13:39:00 [facility] RANDOM CHLORIDE LEVEL, URINE, 2023-06-27 13:39:00 [facility] RANDOM PROTEIN, URINE, RANDOM 2023-06-27 13:39:00 [facility] ALBUMIN WITH CREATININE 2023-06-27 13:39:00 [facility] AND RATIO, RANDOM URINE CREATININE LEVEL, URINE, 2023-06-27 13:39:00 [facility] RANDOM OSMOLALITY, URINE 2023-06-27 13:39:00 [facility] POC GLUCOSE 2023-06-27 13:34:00 Nils Cowanist Ho spital CBC WITH PLATELET AND 2023-06-27 09:23:00 Camryn [facility] DIFFERENTIAL COMPREHENSIVE METABOLIC 2023-06-27 09:23:00 Camryn [facility] PANEL ESTIMATED GFR 2023-06-27 09:23:00 Nils Cowan spital POC GLUCOSE 2023-06-27 05:05:00 Camryn greer English spital RESPIRATORY PATHOGEN PANEL 2023-06-27 04:08:00 [facility] WITH COVID-19 RT-PCR Eitan LACTIC ACID LEVEL - NOW 2023-06-27 04:08:00 [facility] AND REPEAT 2X EVERY 3 HOURS POC GLUCOSE 2023-06-27 03:54:00 CamrynNils Ho spital POC GLUCOSE 2023-06-27 03:26:00 CamrynNils spital ECG 12-LEAD 2023-06-27 02:49:22 Libertad Mccarthy [facility] ECG ED PRELIMINARY 2023-06-27 02:43:49 Libertad Mccarthy [facility] INTERPRETATION CT RENAL STONE PROTOCOL 2023-06-27 01:25:47 [facility] 2023-06-26 23:55:00 [facility] CBC WITH PLATELET AND 2023-06-26 23:37:00 [facility] DIFFERENTIAL Eitan COMPREHENSIVE METABOLIC 2023-06-26 23:37:00 [facility] PANEL Eitan LIPASE LEVEL 2023-06-26 23:37:00 [facility] ospital [facility] URINALYSIS SCREEN AND 2023-06-26 23:37:00 [facility] MICROSCOPY, WITH REFLEX TO Eitan CULTURE LACTIC ACID LEVEL - NOW 2023-06-26 23:37:00 [facility] AND REPEAT 2X EVERY 3 HOURS ESTIMATED GFR 2023-06-26 23:37:00 [facility] [id number] 2023-06-14 00:00:00 KAREN.01 [facility] [id number] 2023-06-14 00:00:00 KAREN.01 [facility] PICC INSERTION REQUEST 2023-03-28 14:05:23 Justa Winter [facility] CBC WITH PLATELET AND 2023-03-28 10:15:00 [place]jo, [place] [facility] DIFFERENTIAL BASIC METABOLIC PANEL 2023-03-28 10:15:00 [facility] ESTIMATED GFR 2023-03-28 10:15:00 [facility] CBC WITH PLATELET AND 2023-03-27 09:08:00 [facility] DIFFERENTIAL BASIC METABOLIC PANEL 2023-03-27 09:08:00 [facility] VANCOMYCIN LEVEL, RANDOM 2023-03-27 09:08:00 [facility] ESTIMATED GFR 2023-03-27 09:08:00 [facility] CBC WITH PLATELET AND 2023-03-26 09:53:00 [facility] DIFFERENTIAL BASIC METABOLIC PANEL 2023-03-26 09:53:00 [facility] ESTIMATED GFR 2023-03-26 09:53:00 [facility] CBC WITH PLATELET AND 2023-03-25 09:05:00 [facility] DIFFERENTIAL BASIC METABOLIC PANEL 2023-03-25 09:05:00 [facility] ESTIMATED GFR 2023-03-25 09:05:00 [facility] MANUAL DIFFERENTIAL 2023-03-25 09:05:00 [facility] CBC WITH PLATELET AND 2023-03-24 16:23:00 Rich Ureña [facility] DIFFERENTIAL BASIC METABOLIC PANEL 2023-03-24 16:23:00 Rich Ureña [facility] ESTIMATED GFR 2023-03-24 16:23:00 [facility] Rich [facility] TRANSFUSE RED BLOOD CELLS 2023-03-23 16:26:00 [facility] TRANSFUSE RED BLOOD CELLS 2023-03-23 12:38:00 [facility] PREPARE RBC 2023-03-23 10:11:00 [facility] TYPE AND SCREEN 2023-03-23 10:11:00 [facility] CBC WITH PLATELET AND 2023-03-23 09:33:00 [facility] DIFFERENTIAL COMPREHENSIVE METABOLIC 2023-03-23 09:33:[address] [facility] PANEL ESTIMATED GFR 2023-03-23 09:33:00 [facility] MANUAL DIFFERENTIAL 2023-03-23 09:33:00 [facility] ESTIMATED GFR 2023-03-23 08:45:00 [facility] TROPONIN T 2023-03-23 03:03:00 Clayton Dale spital LACTIC ACID LEVEL - NOW 2023-03-23 03:03:00 [facility] AND REPEAT 2X EVERY 3 HOURS CREATININE LEVEL, URINE, 2023-03-23 01:44:00 [facility] RANDOM SODIUM LEVEL, URINE, 2023-03-23 01:44:00 [facility] RANDOM PROTEIN, URINE, RANDOM 2023-03-23 01:44:00 [facility] URINE CULTURE 2023-03-23 00:49:00 DaleClayton spital URINALYSIS SCREEN AND 2023-03-23 00:24:00 [facility] MICROSCOPY, WITH REFLEX TO CULTURE LACTIC ACID LEVEL - NOW 2023-03-22 23:45:00 [facility] AND REPEAT 2X EVERY 3 HOURS COMPREHENSIVE METABOLIC 2023-03-22 23:27:00 [facility] PANEL TROPONIN T 2023-03-22 23:27:00 Clayton Dale spital CREATINE KINASE, TOTAL 2023-03-22 23:27:00 [facility] ([facility]) ESTIMATED GFR 2023-03-22 23:27:00 Clayton Dale spital VENOUS BLOOD GAS 2023-03-22 22:41:00 Clayton Dale ospital BLOOD CULTURE, AEROBIC & 2023-03-22 22:29:00 Chito Clayton [facility] ANAEROBIC CBC WITH PLATELET AND 2023-03-22 22:27:00 [facility] DIFFERENTIAL LACTIC ACID LEVEL - NOW 2023-03-22 22:27:00 [facility] AND REPEAT 2X EVERY 3 HOURS MANUAL DIFFERENTIAL 2023-03-22 22:27:[address] [facility] [place] XR CHEST 1 VW PORTABLE 2023-03-22 22:00:04 [facility] 12-LEAD 2023-03-22 21:26:46 Chito [facility] GFR 2023-03-22 21:13:[address] ABDOMEN PELVIS WO 2023-03-22 21:10:[address] [facility] CONTRAST ECG ED PRELIMINARY 2023-03-22 20:41:38 [facility] INTERPRETATION MS CRITICAL CARE 2023-03-22 20:41:38 [facility] ospital ILL/INJURED PATIENT INIT 30-74 MIN CBC WITH PLATELET AND 2022-11-02 11:12:00 Camryn [facility] DIFFERENTIAL BASIC METABOLIC PANEL 2022-11-02 11:12:00 Camryn [facility] ESTIMATED GFR 2022-11-02 11:12:00 Camryn greer [facility] spital CBC WITH PLATELET AND 2022-11-01 11:35:00 [facility] DIFFERENTIAL BASIC METABOLIC PANEL 2022-11-01 11:35:00 [facility] ESTIMATED GFR 2022-11-01 11:35:00 Camryn greer [facility] PROTEIN, URINE, RANDOM 2022-10-31 19:03:00 [facility] ALBUMIN WITH CREATININE 2022-10-31 19:03:00 [facility] AND RATIO, RANDOM URINE CREATININE LEVEL, URINE, 2022-10-31 19:03:00 [facility] RANDOM CBC WITH PLATELET AND 2022-10-31 12:10:00 Camryn [facility] DIFFERENTIAL BASIC METABOLIC PANEL 2022-10-31 12:10:00 Camryn [facility] ESTIMATED GFR 2022-10-31 12:10:00 Camryn greer [facility] spital CBC WITH PLATELET AND 2022-10-30 11:30:00 [facility] DIFFERENTIAL BASIC METABOLIC PANEL 2022-10-30 11:30:00 Camryn, [facility] ESTIMATED GFR 2022-10-30 11:30:00 Camryn [facility] spital CBC WITH PLATELET AND 2022-10-29 11:45:00 Camryn, [facility] DIFFERENTIAL BASIC METABOLIC PANEL 2022-10-29 11:30:00 [facility] ESTIMATED GFR 2022-10-29 11:30:00 Camryn [facility] spital IR LEFT NEPHROSTOMY 2022-10-28 23:27:00 Yifan [facility] INITIAL PLACEMENT IR RIGHT NEPHROSTOGRAM NEW 2022-10-28 23:27:00 Roseann Saha [facility] ACCESS CBC WITH PLATELET AND 2022-10-28 11:29:00 [facility] DIFFERENTIAL COMPREHENSIVE METABOLIC 2022-10-28 11:29:00 [facility] PANEL ESTIMATED GFR 2022-10-28 11:29:00 Camryn [facility] spital CBC WITH PLATELET AND 2022-10-27 12:38:00 [facility] DIFFERENTIAL COMPREHENSIVE METABOLIC 2022-10-27 12:38:00 [facility] BASIC METABOLIC PANEL 2022-10-27 12:38:00 [facility] ESTIMATED GFR 2022-10-27 12:38:00 [facility] MRI PELVIS W WO CONTRAST 2022-10-26 16:51:00 Derrick siddiqui [facility] MRI ABDOMEN W WO CONTRAST 2022-10-26 16:40:00 Derrick Dela Cruz [facility] COVID-19 QUALITATIVE 2022-10-26 13:42:00 Parviz Jameson [facility] RT-PCR CBC WITH PLATELET AND 2022-10-26 09:30:00 Camryn [facility] DIFFERENTIAL COMPREHENSIVE METABOLIC 2022-10-26 09:30:00 Camryn [facility] PANEL PHOSPHORUS LEVEL 2022-10-26 09:30:00 [facility] CARCINOEMBRYONIC ANTIGEN 2022-10-26 09:30:00 [facility] 2022-10-26 09:30:00 Jose De Jesus [facility] spital PROTHROMBIN TIME WITH INR 2022-10-26 09:30:00 [facility]FR 2022-10-26 09:30:00 Camryn [facility] spital CT CHEST WO CONTRAST 2022-10-25 23:50:23 Jose De Jesus [facility] US RENAL 2022-10-25 17:30:04 [facility] URINALYSIS SCREEN AND 2022-10-25 17:01:00 [facility] MICROSCOPY, WITH REFLEX TO CULTURE SODIUM LEVEL, URINE, 2022-10-25 17:01:00 [facility] RANDOM CHLORIDE LEVEL, URINE, 2022-10-25 17:01:00 [facility] RANDOM CREATININE LEVEL, URINE, 2022-10-25 17:01:00 [facility] RANDOM URINE CULTURE 2022-10-25 16:55:[address] [facility] [address] ABDOMEN PELVIS WO 2022-10-25 14:31:42 Rehrer, [facility] CONTRAST CBC WITH PLATELET AND 2022-10-25 12:41:00 Rehrer, [facility] DIFFERENTIAL COMPREHENSIVE METABOLIC 2022-10-25 12:41:00 Rehrer, [facility] PANEL LIPASE LEVEL 2022-10-25 12:41:00 Rehrer, [facility] URINALYSIS SCREEN AND 2022-10-25 12:41:00 Rehrer, [facility] MICROSCOPY, WITH REFLEX TO CULTURE LACTIC ACID LEVEL 2022-10-25 12:41:00 Rehrer, [facility] ESTIMATED GFR 2022-10-25 12:41:00 Amador Beatty jill Ayoub URINE CULTURE 2022-10-25 12:30:00 Rehrer, [facility] CT CHEST EXTERNAL STUDY 2022-08-16 16:25:00 Rhys Tan [facility] Jeremy Plan of Care Planned Activity Planned Date Details Comments Source Future Scheduled 2023-09-13 COVID-19 VACCINE (#1) [facility] 14:47:28 [code = COVID-19 VACCINE Hos pital (#1)] Future Scheduled 2023-09-13 Pneumococcal Vaccine: [facility] 14:47:28 Pediatrics (0 to 5 Hospital Years) and At-Risk Patients (6 to 64 Years) (1 - PCV) [code = Pneumococcal Vaccine: Pediatrics (0 to 5 Years) and At-Risk Patients (6 to 64 Years) (1 - PCV)] Future Scheduled 2023-09-13 Hepatitis C screening [facility] 14:47:28 (procedure) [code = Hospital [id number]] Future Scheduled 2023-09-13 SHINGLES VACCINES (1 of [facility] 14:47:28 2) [code = SHINGLES Hospital VACCINES (1 of 2)] Future Scheduled 2023-09-13 HEPATITIS B VACCINES (1 [facility] 14:47:28 of 3 - Risk 3-dose Hospital series) [code = HEPATITIS B VACCINES (1 of 3 - Risk 3-dose series)] Future Scheduled 2023 COVID-19 VACCINE (#1) [facility] 00:49:08 [code = COVID-19 VACCINE Hos pital (#1)] Future Scheduled 2023 Pneumococcal Vaccine: [facility] 00:49:08 Pediatrics (0 to 5 Hospital Years) and At-Risk Patients (6 to 64 Years) (1 - PCV) [code = Pneumococcal Vaccine: Pediatrics (0 to 5 Years) and At-Risk Patients (6 to 64 Years) (1 - PCV)] Future Scheduled 2023 Hepatitis C [facility] 00:[facility]:08 (procedure) [code = Hospital [id number]] Future Scheduled 2023 SHINGLES VACCINES (1 of [facility] 00:49:08 2) [code = SHINGLES Hospital VACCINES (1 of 2)] Future Scheduled 2023 INFLUENZA VACCINE (#1) [facility] Test 00:49:08 [code = INFLUENZA Hospital VACCINE (#1)] Future Scheduled 2023 HEPATITIS B VACCINES (1 [facility] 00:49:08 of 3 - Risk 3-dose Hospital series) [code = HEPATITIS B VACCINES (1 of 3 - Risk 3-dose series)] Future Scheduled 2023-08-01 HEPATITIS B VACCINES (1 [facility] 16:40:08 of 3 - 3-dose series) Hospit al [code = HEPATITIS B VACCINES (1 of 3 - 3-dose series)] Future Scheduled 2023-08-01 COVID-19 VACCINE (#1) [facility] 16:40:08 [code = COVID-19 VACCINE Hos pital (#1)] Future Scheduled 2023-08-01 Pneumococcal Vaccine: [facility] 16:40:08 Pediatrics (0 to 5 Hospital Years) and At-Risk Patients (6 to 64 Years) (1 - PCV) [code = Pneumococcal Vaccine: Pediatrics (0 to 5 Years) and At-Risk Patients (6 to 64 Years) (1 - PCV)] Future Scheduled 2023-08-01 Hepatitis C screening [facility] 16:40:08 (procedure) [code = Hospital [id number]] Future Scheduled 2023-08-01 SHINGLES VACCINES (1 of [facility] 16:40:08 2) [code = SHINGLES Hospital VACCINES (1 of 2)] Future Scheduled 2023-08-01 INFLUENZA VACCINE (#1) [facility] 16:40:08 [code = INFLUENZA Hospital VACCINE (#1)] Future Scheduled 2023-08-01 RSV VACCINES > 60 YR (1 [facility] 16:40:08 - 1-dose 60+ series) Hospita l [code = RSV VACCINES > 60 YR (1 - 1-dose 60+ series)] Future Scheduled 2023-06-16 Influenza Vaccine (#1) [facility] [code = Influenza Medical Ce nter Vaccine (#1)] Future Scheduled 2023-06-16 Medicare IPPE (WELCOME [facility] 00:00:00 TO MEDICARE) [code = [facility] Medicare IPPE (WELCOME TO MEDICARE)] Future Scheduled 2023-06-16 Influenza Vaccine (#1) [facility] 00:00:00 [code = Influenza Medical Ce nter Vaccine (#1)] Future Scheduled 2023-06-16 Medicare IPPE (WELCOME [facility] 00:00:00 TO MEDICARE) [code = Medical Center Medicare IPPE (WELCOME TO MEDICARE)] Future Scheduled 2023-06-13 Pneumococcal Vaccine: [facility] 01:16:35 Pediatrics (0 to 5 Hospital Years) and At-Risk Patients (6 to 64 Years) (1 - PCV) [code = Pneumococcal Vaccine: Pediatrics (0 to 5 Years) and At-Risk Patients (6 to 64 Years) (1 - PCV)] Future Scheduled 2023-06-13 Hepatitis C screening [facility] 01:16:35 (procedure) [code = Hospital [id number]] Future Scheduled 2023-06-13 SHINGLES VACCINES (1 of [facility] 01:16:35 2) [code = SHINGLES Hospital VACCINES (1 of 2)] Future Scheduled 2023-06-13 COVID-19 VACCINE (5 - [facility] 01:16:35 Moderna series) [code = Hosp ital COVID-19 VACCINE (5 - Moderna series)] Future Scheduled 2023-06-13 INFLUENZA VACCINE (#1) [facility] 01:16:35 [code = INFLUENZA Hospital VACCINE (#1)] Future Scheduled 2023-06-13 Pneumococcal Vaccine: [facility] 01:16:35 Pediatrics (0 to 5 Hospital Years) and At-Risk Patients (6 to 64 Years) (1 - PCV) [code = Pneumococcal Vaccine: Pediatrics (0 to 5 Years) and At-Risk Patients (6 to 64 Years) (1 - PCV)] Future Scheduled 2023-06-13 Hepatitis C screening [facility] 01:16:35 (procedure) [code = Hospital [id number]] Future Scheduled 2023-06-13 SHINGLES VACCINES (1 of [facility] 01:16:35 2) [code = SHINGLES Hospital VACCINES (1 of 2)] Future Scheduled 2023-06-13 COVID-19 VACCINE (5 - [facility] 01:16:35 Moderna series) [code = Hosp ital COVID-19 VACCINE (5 - Moderna series)] Future Scheduled 2023-06-13 INFLUENZA VACCINE (#1) [facility] 01:16:35 [code = INFLUENZA Hospital VACCINE (#1)] Future Scheduled 2023-05-22 Pneumococcal Vaccine: [facility] 00:52:43 Pediatrics (0 to 5 Hospital Years) and At-Risk Patients (6 to 64 Years) (1 - PCV) [code = Pneumococcal Vaccine: Pediatrics (0 to 5 Years) and At-Risk Patients (6 to 64 Years) (1 - PCV)] Future Scheduled 2023-05-22 Hepatitis C screening [facility] 00:52:43 (procedure) [code = Hospital [id number]] Future Scheduled 2023-05-22 SHINGLES VACCINES (1 of [facility] 00:52:43 2) [code = SHINGLES Hospital VACCINES (1 of 2)] Future Scheduled 2023-05-22 COVID-19 VACCINE (5 - [facility] 00:52:43 Moderna series) [code = Hosp ital COVID-19 VACCINE (5 - Moderna series)] Future Scheduled 2023-05-22 INFLUENZA VACCINE [code [facility] 00:52:43 = INFLUENZA VACCINE] Hospita l Future Scheduled 2023-05-22 Pneumococcal Vaccine: [facility] 00:52:43 Pediatrics (0 to 5 Hospital Years) and At-Risk Patients (6 to 64 Years) (1 - PCV) [code = Pneumococcal Vaccine: Pediatrics (0 to 5 Years) and At-Risk Patients (6 to 64 Years) (1 - PCV)] Future Scheduled 2023-05-22 Hepatitis C screening [facility] 00:52:43 (procedure) [code = Hospital [id number]] Future Scheduled 2023-05-22 SHINGLES VACCINES (1 of [facility] 00:52:43 2) [code = SHINGLES Hospital VACCINES (1 of 2)] Future Scheduled 2023-05-22 COVID-19 VACCINE (5 - [facility] 00:52:43 Moderna series) [code = Hosp ital COVID-19 VACCINE (5 - Moderna series)] Future Scheduled 2023-05-22 INFLUENZA VACCINE [code [facility] 00:52:43 = INFLUENZA VACCINE] [facility] Future Scheduled 2023-04-19 Pneumococcal Vaccine: [facility] 07:50:51 Pediatrics (0 to 5 Hospital Years) and At-Risk Patients (6 to 64 Years) (1 - PCV) [code = Pneumococcal Vaccine: Pediatrics (0 to 5 Years) and At-Risk Patients (6 to 64 Years) (1 - PCV)] Future Scheduled 2023-04-19 Hepatitis C screening [facility] 07:50:51 (procedure) [code = Hospital [id number]] Future Scheduled 2023-04-19 SHINGLES VACCINES (1 of [facility] 07:50:51 2) [code = SHINGLES Hospital VACCINES (1 of 2)] Future Scheduled 2023-04-19 COVID-19 VACCINE (5 - [facility] 07:50:51 Moderna series) [code = Hosp ital COVID-19 VACCINE (5 - Moderna series)] Future Scheduled 2023-04-19 INFLUENZA VACCINE [code [facility] 07:50:51 = INFLUENZA VACCINE] [facility] Future Scheduled 2023-04-07 Pneumococcal Vaccine: [facility] 08:01:08 Pediatrics (0 to 5 Hospital Years) and At-Risk Patients (6 to 64 Years) (1 - PCV) [code = Pneumococcal Vaccine: Pediatrics (0 to 5 Years) and At-Risk Patients (6 to 64 Years) (1 - PCV)] Future Scheduled 2023-04-07 Hepatitis C screening [facility] 08:01:08 (procedure) [code = Hospital [id number]] Future Scheduled 2023-04-07 SHINGLES VACCINES (1 of [facility] 08:01:08 2) [code = SHINGLES Hospital VACCINES (1 of 2)] Future Scheduled 2023-04-07 COVID-19 VACCINE (5 - [facility] 08:01:08 Moderna series) [code = Hosp ital COVID-19 VACCINE (5 - Moderna series)] Future Scheduled 2023-04-07 INFLUENZA VACCINE [code [facility] 08:01:08 = INFLUENZA VACCINE] [facility] Future Scheduled 2023-03-31 Pneumococcal Vaccine: [facility] 10:53:42 Pediatrics (0 to 5 Hospital Years) and At-Risk Patients (6 to 64 Years) (1 - PCV) [code = Pneumococcal Vaccine: Pediatrics (0 to 5 Years) and At-Risk Patients (6 to 64 Years) (1 - PCV)] Future Scheduled 2023-03-31 Hepatitis C screening [facility] 10:53:42 (procedure) [code = Hospital [id number]] Future Scheduled 2023-03-31 SHINGLES VACCINES (1 of [facility] 10:53:42 2) [code = SHINGLES Hospital VACCINES (1 of 2)] Future Scheduled 2023-03-31 COVID-19 VACCINE (5 - [facility] 10:53:42 Moderna series) [code = Hosp ital COVID-19 VACCINE (5 - Moderna series)] Future Scheduled 2023-03-31 INFLUENZA VACCINE [code [facility] 10:53:42 = INFLUENZA VACCINE] Hospita l Future Scheduled 2023-01-16 Pneumococcal Vaccine: [facility] 20:02:08 Pediatrics (0 to 5 Hospital Years) and At-Risk Patients (6 to 64 Years) (1 - PCV) [code = Pneumococcal Vaccine: Pediatrics (0 to 5 Years) and At-Risk Patients (6 to 64 Years) (1 - PCV)] Future Scheduled 2023-01-16 Hepatitis C screening [facility] 20:02:08 (procedure) [code = Hospital [id number]] Future Scheduled 2023-01-16 SHINGLES VACCINES (1 of [facility] 20:02:08 2) [code = SHINGLES Hospital VACCINES (1 of 2)] Future Scheduled 2023-01-16 COLONOSCOPY [facility]CREENING [facility] 20:02:08 [code = COLONOSCOPY Hospital SCREENING] Future Scheduled 2023-01-16 COVID-19 VACCINE (5 - [facility] 20:02:08 Booster for Moderna Hospital series) [code = COVID-19 VACCINE (5 - Booster for Moderna series)] Future Scheduled 2023-01-16 INFLUENZA VACCINE [code [facility] 20:02:08 = INFLUENZA VACCINE] Hospita l Future Scheduled 2022-12-06 Pneumococcal Vaccine: [facility] 08:31:10 Pediatrics (0 to 5 Hospital Years) and At-Risk Patients (6 to 64 Years) (1 - PCV) [code = Pneumococcal Vaccine: Pediatrics (0 to 5 Years) and At-Risk Patients (6 to 64 Years) (1 - PCV)] Future Scheduled 2022-12-06 Hepatitis C screening [facility] 08:31:10 (procedure) [code = Hospital [id number]] Future Scheduled 2022-12-06 SHINGLES VACCINES (1 of [facility] 08:31:10 2) [code = SHINGLES Hospital VACCINES (1 of 2)] Future Scheduled 2022-12-06 COLONOSCOPY [facility]CREENING [facility] 08:31:10 [code = COLONOSCOPY Hospital SCREENING] Future Scheduled 2022-12-06 INFLUENZA VACCINE [code [facility] 08:31:10 = INFLU[facility]ZA VACCINE] [facility] 2022-12-06 COVID-19 VACCINE (5 - [facility] 08:31:10 Booster for Moderna Hospital series) [code = COVID-19 VACCINE (5 - Booster for Moderna series)] Future Scheduled 2022-11-30 Pneumococcal Vaccine: [facility] 08:08:13 Pediatrics (0 to 5 Hospital Years) and At-Risk Patients (6 to 64 Years) (1 - PCV) [code = Pneumococcal Vaccine: Pediatrics (0 to 5 Years) and At-Risk Patients (6 to 64 Years) (1 - PCV)] Future Scheduled 2022-11-30 Hepatitis C screening [facility] 08:08:13 (procedure) [code = Hospital [id number]] Future Scheduled 2022-11-30 SHINGLES VACCINES (1 of [facility] 08:08:13 2) [code = SHINGLES Hospital VACCINES (1 of 2)] Future Scheduled 2022-11-30 COLONOSCOPY [facility]CREENING [facility] 08:08:13 [code = COLONOSCOPY Hospital SCREENING] Future Scheduled 2022-11-30 INFLUENZA VACCINE [code [facility] 08:08:13 = INFLUENZA VACCINE] [facility]uled 2022-11-30 COVID-19 VACCINE (5 - [facility] 08:08:13 Booster for Moderna Hospital series) [code = COVID-19 VACCINE (5 - Booster for Moderna series)] Future Scheduled 2022-11-16 Pneumococcal Vaccine: [facility] 08:53:45 Pediatrics (0 to 5 Hospital Years) and At-Risk Patients (6 to 64 Years) (1 - PCV) [code = Pneumococcal Vaccine: Pediatrics (0 to 5 Years) and At-Risk Patients (6 to 64 Years) (1 - PCV)] Future Scheduled 2022-11-16 Hepatitis C screening [facility] 08:53:45 (procedure) [code = Hospital [id number]] Future Scheduled 2022-11-16 SHINGLES VACCINES (1 of [facility] 08:53:45 2) [code = SHINGLES Hospital VACCINES (1 of 2)] Future Scheduled 2022-11-16 [facility]ONOSCOPY [facility]CREENING [facility] 08:53:45 [code = COLONOSCOPY Hospital SCREENING] Future Scheduled 2022-11-16 INFLUENZA VACCINE [code [facility] 08:53:45 = INFLUENZA VACCINE] Hospita l Future Scheduled 2022-11-16 COVID-19 VACCINE (5 - [facility] 08:53:45 Booster for Moderna Hospital series) [code = COVID-19 VACCINE (5 - Booster for Moderna series)] Future Scheduled 2022-10-[address] [facility] 00:00:00 (12+) [code = DEPRESSION Med ical Center SCREENING (12+)] Future Scheduled 2022-10-[address] [facility] 00:00:00 (12+) [code = DEPRESSION Med ical Center SCREENING (12+)] Future Scheduled 2022-09-26 Hepatitis C screening [facility] 23:54:04 (procedure) [code = Hospital [id number]] Future Scheduled 2022-09-26 COLONOSCOPY [facility]CREENING [facility] 23:54:04 [code = COLONOSCOPY Hospital SCREENING] Future Scheduled 2022-09-26 SHINGLES VACCINES (1 of [facility] 23:54:04 2) [code = SHINGLES Hospital VACCINES (1 of 2)] Future Scheduled 2022-09-26 INFLUENZA VACCINE [code [facility] 23:54:04 = INFLUENZA VACCINE] Hospita l Future Scheduled 2022-09-26 COVID-19 VACCINE (5 - [facility] 23:54:04 Booster for Moderna Hospital series) [code = COVID-19 VACCINE (5 - Booster for Moderna series)] Future Scheduled 2022-09-26 Hepatitis C screening [facility] 23:54:04 (procedure) [code = Hospital [id number]] Future Scheduled 2022-09-26 COLONOSCOPY [facility]CREENING [facility] 23:54:04 [code = COLONOSCOPY Hospital SCREENING] Future Scheduled 2022-09-26 SHINGLES VACCINES (1 of [facility] 23:54:04 2) [code = SHINGLES Hospital VACCINES (1 of 2)] Future Scheduled 2022-09-26 INFLUENZA VACCINE [code [facility] 23:54:04 = INFLUENZA VACCINE] Hospita l Future Scheduled 2022-09-26 COVID-19 VACCINE (5 - [facility] 23:54:04 Booster for Moderna Hospital series) [code = COVID-19 VACCINE (5 - Booster for Moderna series)] Future Scheduled 2022-08-26 HEPATITIS B VACCINES (1 [facility] 02:17:57 of 3 - 3-dose series) Hospit al [code = HEPATITIS B VACCINES (1 of 3 - 3-dose series)] Future Scheduled 2022-08-26 Hepatitis C screening [facility] 02:17:57 (procedure) [code = Hospital [id number]] Future Scheduled 2022-08-26 COLONOSCOPY [facility]CREENING [facility] 02:17:57 [code = COLONOSCOPY Hospital SCREENING] Future Scheduled 2022-08-26 SHINGLES VACCINES (1 of [facility] 02:17:57 2) [code = SHINGLES Hospital VACCINES (1 of 2)] Future Scheduled 2022-08-26 INFLUENZA VACCINE [code [facility] 02:17:57 = INFLUENZA VACCINE] Hospita l Future Scheduled 2022-08-26 COVID-19 VACCINE (5 - [facility] 02:17:57 Booster for Moderna Hospital series) [code = COVID-19 VACCINE (5 - Booster for Moderna series)] Future Scheduled 2013 SHINGLES VACCINES ([address] [facility] 00:00:00 2) [code = SHINGLES Medical Center VACCINES (1 of 2)] Future Scheduled 2013 SHINGLES VACCINES ([address] [facility] 00:00:00 2) [code = SHINGLES Medical Center VACCINES (1 of 2)] Future Scheduled 1998 Lipid panel (procedure) [facility] 00:00:00 [code = [id number]] Medical Ce nter Future Scheduled 1998 Lipid panel (procedure) [facility] 00:00:00 [code = 55871796] Medical Ce nter Future Scheduled 1982 DTAP/TDAP/TD VACCINES ([address] [facility] 00:00:00 - Tdap) [code = Medical Cent er DTAP/TDAP/TD VACCINES (1 - Tdap)] Future Scheduled 1982 DTAP/TDAP/TD VACCINES ([address] [facility] 00:00:00 - Tdap) [code = Medical Cent er DTAP/TDAP/TD VACCINES (1 - Tdap)] Future Scheduled 1981 HE[facility]ITIS C [facility]00 [code = HEPATITIS C Medical Center SCREENING] Future Scheduled 1981 HEPATITIS C [facility] 00:[facility]00 [code = HEPATITIS C Medical Center SCREENING] Future Scheduled [address] [facility] 00:[facility]:00 virus screening Medical Cent er (procedure) [code = 178708948] Future Scheduled [address] [facility] 00:00:00 virus screening Medical Cent er (procedure) [code = 204625622] Future Scheduled [address] [facility] Test 00:00:00 Counseling and Screening Med ical Center (12+) [code = Tobacco Cessation Counseling and Screening (12+)] Future Scheduled [address] [facility] Test 00:00:00 Counseling and Screening Med ical Center (12+) [code = Tobacco Cessation Counseling and Screening (12+)] Future Scheduled 1964-02-12 COVID-19 VACCINE (#1[facility] [code = COVID-19 VACCINE Med ical Center (#1)] Future Scheduled 1964-02-12 COVID-19 VACCINE (#1[facility] [code = COVID-19 VACCINE Med ical Center (#1)] Future Scheduled 1963 CT Colonography (combo) [facility] 00:00:00 [code = CT Colonography [facility] (combo)] Future Scheduled 1963 Screening for malignant [facility] 00:00:00 neoplasm of colon Medical Ce nter (procedure) [code = 167400966] Future Scheduled 1963 Screening for malignant [facility] Test 00:00:00 neoplasm of colon Medical Ce nter (procedure) [code = 769857603] Future Scheduled 1963 Screening for malignant [facility] 00:00:00 neoplasm of colon Medical Ce nter (procedure) [code = 119042951] Future Scheduled 1963 Screening for malignant [facility] 00:00:00 neoplasm of colon Medical Ce nter (procedure) [code = 212891795] Future Scheduled 1963 Sigmoidoscopy [code [facility] S[facility]oidoscopy] Medical Cente r Future Scheduled 1963 CT Colonography (combo) [facility] 00:00:00 [code = CT Colonography [facility] (combo)] Future Scheduled 1963 Screening for malignant [facility] 00:00:00 neoplasm of colon Medical Ce nter (procedure) [code = 844138612] Future Scheduled 1963 Screening for malignant [facility] Test 00:00:00 neoplasm of colon Medical Ce nter (procedure) [code = 386579754] Future Scheduled 1963 Screening for malignant [facility] 00:00:00 neoplasm of colon Medical Ce nter (procedure) [code = 276458305] Future Scheduled 1963 Screening for malignant [facility] Test 00:00:00 neoplasm of colon Medical Ce nter (procedure) [code = 412739149] Future Scheduled 1963 Sigmoidoscopy [facility]code [facility] Sigmoidoscopy] Medical Cente r Medication 2023-09-14 fludrocortisone [facility] 00:00:00 (FLORINEF) 0.1 mg tablet Hos pital [code = 576565] Encounters Start End Encounter Admission Attending Care Care Encounter Source Date/Time Date/Time Type Type Clinicians Facility Department ID 2023-08-10 Inpatient MARQUIS ATKINS, [facility] [id number] SLE 17:26:20 KEVIN 2023-08-02 Inpatient EL NILESH, [facility] [id number] SLE 16:09:28 BACILIO 2023-08-02 Inpatient MARQUIS GALLOWAY [facility] [id number] SLE 14:09:57 BACILIO 2022-09-15 Inpatient MARQUIS Mancera Tarsha [facility] [id number] [facility] 00:08:[address] [facility] 2022-02-13 Inpatient Tarsha Butts [facility] [id number] [facility] 15:[facility]:[address] [facility] 2022-01-14 Inpatient Tarsha Butts [facility] [id number] [facility] 16:09:[address] [facility] 2023-09-08 2023-09-13 [facility] Jimmy Gore 1.2.840.1 [id number] Methodi 13:55:00 19:04:00 Encounter Jose Nam 02072.1.1 238 Teresa Nice 3.430.2.7 Hospita Lacho Kelley .3.094640 l .8 2023-09-08 2023-09-13 Inpatient WARREN [facility] [id number] Gill 00:00:00 00:00:00 LACHO Pugh Method i 2023-09-12 2023-09-12 Outpatient SHERYL BASS [facility] [id number] Univers 10:40:00 10:40:00 SHERYL CHARLES [facility] 2023-09-04 2023-09-04 Telephone [facility] [id number] Univers 00:00:00 00:00:00 [facility]ly [facility] [id number] [facility] 4.2.7.2.686 Ramón as JO ANN?BLEA [phone] [address] MEDICAL OFFICE BUILDING 2023-09-01 2023-09-01 Outpatient Fior BONDS [facility] [id number] Univers 10:30:00 10:30:00 TOBIN coombs f [facility] 2023-08-26 2023-08-26 Telephone GENO Gonzalez [id number] Univers 00:00:00 00:00:00 Martita LINARES [id number] ity [facility] 4.2.7.2.686 Raómn as [phone] [address] 2023-08-24 2023-08-24 Lavon Dietrich 1.2.840.1 [id number] [id number] Methodi 00:00:00 00:00:[address] 3.430.2.7 Hospit a .3.836880 l .8 2023-08-24 2023-08-24 Orders Kaur 1.2.840.1 [id number] [id number] Methodi 00:00:00 00:00:00 Only [place] [address]80.1.[address] 3.430.2.7 Hospit a .3.574361 l .8 2023-08-24 2023-08-24 Telephone Derrick Dela Cruz 1.2.840.1 [id number] Methodi 00:00:00 00:00:[address] 3.430.2.7 Hospit a .3.600827 l .8 2023-08-23 2023-08-23 Transition SAM MathiasLorie 1.2.840.114 [id number] Univers 00:00:00 00:00:00 of Care Ziggy BERNSTEIN 350.1.13.10 it y of [place] [phone] [facility] [address] 2023-08-17 2023-08-22 [facility] Kiarra Jacinto [facility] 1.2.840.11 [id number] Univers 21:28:00 15:38:00 Encounter Alma Bonilla 350.1.13.10 ity of Roseann Gallardo 4.2.7.2.686 [facility] [phone] [facility] [address] 2023-08-17 2023-08-22 Inpatient X SAMI [facility] [id number] Univers 21:28:00 15:38:00 ROSEANN marinelli of [facility] 2023-08-17 2023-08-17 Orders Doctor LORA 1.2.840.114 [id number] Univers 00:00:00 00:00:00 Only UnassignedVIJAY 350.1.13.10 ity of [place] [facility] 4.2.7.2.686 Ramón as [phone] [facility] [address] 2023-08-17 2023-08-17 Documentat JOSE DANIEL BangC [id number] [id number] 00:00[facility]00 00:00:00 [facility] 2023-08-17 2023-08-17 Documentat Merritt, [facility] [id number] [id number] 00:00:00 00:00:00 [facility] 2023-08-02 2023-08-15 Inpatient ER LOCK, [facility] Emergency [id number] [facility] 08:59:00 19:05:00 [facility] 2023-08-02 2023-08-15 [facility] [id number] 08:59:00 19:05:00 [facility], [facility] 2023-08-02 2023-08-15 Hospital [facility] [id number] 08:59:00 19:05:00 Encounter Bacilio [facility] Prea [facility] Medical [facility] 2023-08-10 2023-08-10 Outpatient EL LOCK, [facility] [id number] [facility] 00:00:00 00:00:00 [facility] 2023-08-10 2023-08-10 Outpatient EL LOCK, [facility] [id number] [facility] 00:00:00 00:00:00 [facility] 2023-08-02 2023-08-02 Outpatient EL JAUNG, [facility] [id number] 09:28:38 09:28:38 [facility] 2023-08-02 2023-08-02 Outpatient EL JAUNG, [facility] [id number] [facility] 09:13:46 09:13:46 GILBERT 2023-08-02 2023-08-02 Travel [facility] [id number] [facility] 00:[facility] 00:00:00 [facility] 2023-08-02 2023-08-02 Travel [facility] [id number] [facility] 00:00:00 00:00:00 [facility] 2023-07-28 2023-07-28 Refill Kaur, 1.2.840.1 [id number] 2099 [id number] Methodi 00:00:00 00:00:[address] 3.430.2.7 Hospit a .3.885970 l .8 2023-07-28 2023-07-28 Orders Kaur, 1.2.840.1 [id number] 2099 [id number] Methodi 00:00:00 00:00:00 Only [place] [address]4740.1.[address] 3.430.2.7 Hospit a .3.899538 l .8 2023-07-28 2023-07-28 Telephone Derrick Dela Cruz 1.2.840.1 [id number] Methodi 00:00:00 00:00:[address] 3.430.2.7 Hospit a .3.437996 l .8 2023-07-28 2023-07-28 Refill Kaur, 1.2.840.1 [id number] 2099 [id number] Methodi 00:00:00 00:00:[address] 3.430.2.7 Hospit a .3.293098 l .8 2023-07-28 2023-07-28 Orders Kaur, 1.2.840.1 [id number] Methodi 00:00:00 00:00:00 Only [place] [address]80.1.[address] 3.430.2.7 Hospit a .3.508853 l .8 2023-07-28 2023-07-28 Telephone Derrick Dela Cruz 1.2.840.1 [id number] Methodi 00:00:00 00:00:[address] 3.430.2.7 Hospit a .3.592424 l .8 2023-07-032023-07-03 Telephone Derrick Dela Cruz 1.2.840.1 [id number] Methodi 00:00:00 00:00:[address] 3.430.2.7 Hospit a .3.625567 l .8 2023-07-03 2023-07-03 Telephone RejiDerrick siddiqui 1.2.840.1 [id number] Methodi 00:00:00 00:00:[address] 3.430.2.7 Hospit a .3.241797 l .8 2023-07-03 2023-07-03 Telephone Ruel, 1.2.840.1 [id number] Methodi 00:00:00 00:00:[address] [place] [address] 3.430.2.7 Hospit a .3.419546 l .8 2023-07-03 2023-07-03 Telephone Ruel 1.2.840.1 [id number] Methodi 00:00:00 00:00:[address] 3.430.2.7 Hospit a .3.534143 l .8 2023-07-03 2023-07-03 Telephone Derrick Dela Cruz 1.2.840.1 [id number] Methodi 00:00:00 00:00:[address] 3.430.2.7 Hospit a .3.372929 l .8 2023-07-03 2023-07-03 Telephone Derrick Dela Cruz 1.2.840.1 [id number] Methodi 00:00:00 00:00:[address] 3.430.2.7 Hospit a .3.328717 l .8 2023-06-26 2023-07-01 [facility] 1.2.840.1 [id number] Methodi 15:44:00 18:28:00 Encounter Nils Cowan 03173.1.1 [address] 3.430.2.7 Hospita .3.403191 l .8 2023-06-26 2023-07-01 [facility] [place] 1.2.840.1 [id number] Methodi 15:44:00 18:28:00 Encounter Nils Cowan 02216.1.[address] Lex Mauricio 3.430.2.7 Hospita .3.672096 l .8 2023-06-22 2023-06-22 Telephone Derrick Dela Cruz 1.2.840.1 [id number] Methodi 00:00:00 00:00:[address] 3.430.2.7 Hospit a .3.859172 l .8 2023-06-22 2023-06-22 Telephone Derrick Dela Cruz 1.2.840.1 [id number] Methodi 00:00:00 00:00:[address] 3.430.2.7 Hospit a .3.978071 l .8 2023-06-14 2023-06-16 Inpatient KADY Rdz [facility] MEDI.01 [id number] [facility] 15:34:00 12:00:00 Michel 09 [facility] 2023-06-13 2023-06-13 Outpatient MARQUIS InLalo ventura [facility] RADI LA0 [id number] [facility] 06:45:00 06:45:00 82 [facility] 2023-06-13 2023-06-13 Outpatient Lalo Sierra [facility] RADI LA0 [id number] [facility] 06:45:00 06:45:00 82 [facility] 2023-04-13 2023-04-13 [facility] RADI LA0 [id number] [facility] 14:47:00 14:47:00 19 [facility] 2023-04-13 2023-04-13 Outpatient Nickell_K [facility] [id number] Gill 00:00:00 00:00:00 [address]24 [facility] 2023-04-09 2023-04-09 Outpatient Nickell_K [facility] [address] [place] [address] 00:00:00 00:00:00 84290 [facility] 2023-03-22 2023-03-28 [facility] [place] 1.2.840.1 [id number] Methodi 15:37:00 19:03:00 Encounter Eladio Sands 76673.1.1 [facility].430[facility]2.7 [facility] .3.174030 l .8 2023-03-22 2023-03-28 [facility] [place] 1.2.840.1 [id number] Methodi 15:37:00 19:03:00 Encounter Eladio Sands 36593.1.1 050 [facility] 3.430.2.7 [facility] [place] .3.038922 l .8 2023-03-22 2023-03-22 Travel 1.2.840.1 1.2.412.654 3710 [id number] Methodi 00:00:00 00:00:[address] 3.430.2.7 0.2.7.3.698 Ho spita .3.786717 084.8 l .8 2023-03-22 2023-03-22 Travel 1.2.840.1 1.2.535.140 2224 [id number] Methodi 00:00:00 00:00:[address] 3.430.2.7 0.2.7.3.698 Ho spita .3.422887 084.8 l .8 2023-03-17 2023-03-17 Outpatient SHERYL BASS [facility] [id number] [facility] 15:20:00 15:20:00 SHERYL CHARLES [facility] 2022-12-20 2022-12-20 Outpatient GC_BCSS_How PRIV PRIV 267 [id number] [facility] 00:00:00 00:00:00 too_Osorio [id number] [facility] al 2022-12-17 2022-12-17 Patient Doctor GENO 1.2.840.114 [id number] Univers 00:00:00 00:00:00 Secure Msg Unassigned, VIJAY 350.[facility].13.10 [facility] 4.2.7.2.686 Ramón as [id number] [address] 2022-12-16 2022-12-16 Outpatient GC_BCSS_How PRIV PRIV 267 [id number] [facility] 00:00:00 00:00:00 Coby [id number] Medic al 2022-12-16 2022-12-16 Telephone [facility] 1.2.888.457 [id number] [id number] Univers 00:00:00 00:00:00 [facility] 350.1.13.10 ity of [place] 4.2.7.2.686 Ramón as JO ANN?BLEA [phone] [address] OFFICE [facility] 2022-12-15 2022-12-15 Outpatient R [facility] [id number] Univers 15:20:00 16:12:20 [facility]-12-15 2022-12-15 Office [facility] 1.2.840.114 [id number] Univers 15:20:00 16:12:20 Visit [facility] 350.1.13.10 ity [facility] 4.2.7.2.686 Ramón as JO ANN?BLEA [phone] [address] OFFICE [facility] 2022-12-13 2022-12-13 Outpatient GC_BCSS_How PRIV PRIV 267 [id number] [facility] 00:00:00 00:00:00 Coby [id number] Medic al 2022-11-23 2022-11-23 Travel 1.2.840.1 1.2.304.937 1257 [id number] Methodi 00:00:00 00:00:[address] 3.430.2.7 0.2.7.3.698 Ho spita .3.605315 084.8 l .8 2022-11-23 2022-11-23 Travel 1.2.840.1 1.2.111.619 [id number] [id number] Methodi 00:00:00 00:00:[address] 3.430.2.7 0.2.7.3.698 Ho spita .3.019234 084.8 l .8 2022-10-25 2022-11-02 [facility] 1.2.840.1 104 [id number] Methodi 05:01:00 15:19:00 Encounter Nils Cowan 42375.1.[address] 3.430.2.7 Hospit a .3.587852 l .8 2022-10-25 2022-11-02 [facility]1 104 [id number] Methodi 05:01:00 15:19:00 Encounter Nils Cowan 85554.1.[address] 3.430.2.7 Hospit a .3.649505 l .8 2022-10-25 2022-10-25 Travel 1.2.840.1 1.2.485.179 7517 [id number] Methodi 00:00:00 00:00:[address] 3.430.2.7 0.2.7.3.698 Ho spita .3.383596 084.8 l .8 2022-10-25 2022-10-25 Travel 1.2.840.1 1.2.134.787 9162 [id number] Methodi 00:00:00 00:00:[address] 3.430.2.7 0.2.7.3.698 Ho spita .3.532785 084.8 l .8 2022-09-01 2022-09-14 Outpatient MARQUIS Mancera Tarsha HCAWU RTX [id number] [facility] 09:25:00 00:00:[address] [place] [address] 2022-08-25 2022-08-25 Hospital [facility], 1.2.840.1 [id number] Methodi 08:26:09 23:59:00 Encounter Rhys 47908.1.[address] [place] 3.430.2.7 [facility] a .3.864477 l .8 2022-04-25 2022-04-25 Outpatient EL Oh, Tarsha HCAWU HCAWU Z7762 11-04 [facility] 09:28:00 09:28:[id number] [facility] 2022-04-25 2022-04-25 Outpatient EL Oh, Tarsha HCAWU RTX [id number] [facility] 09:28:00 09:28:[address] [facility] 2022-01-14 2022-02-12 Outpatient EL Oh, Tarsha HCAWU RTX [id number] [facility] 08:34:00 00:00:[address] [facility] 2021-12-14 2022-01-13 Inpatient EL Oh, Tarsha HCAWU RTX [id number] [facility] 14:32:00 00:00:[address] [facility] 2021-12-27 2021-12-27 Inpatient EL Oh, Tarsha HCAWU SUGL [id number] [facility] 10:30:00 09:30:[address] [facility] 2021-12-21 2021-12-21 Outpatient EL Oh, Tarsha HCAWU SUGL T6580 [id number] [facility] 09:11:00 09:11:[address] [facility] 2021-10-18 2021-11-15 Inpatient EL Oh, Tarsha HCAWU RTX [id number] [facility] 11:23:00 00:00:[address] [facility] 2021-09-02 2021-09-14 Outpatient EL Oh, Tarsha HCAWU RTX [id number] [facility] 10:13:00 00:00:[address] [facility] 2021-09-08 2021-09-08 Outpatient EL Oh, Tarsha HCAWU SUGL [id number] [id number] [facility] 08:46:00 08:46:[address] [facility] 2021-08-06 2021-08-06 Outpatient DERRICK DELA CRUZ [facility] 015 [id number] Gill 00:00:00 00:00:[address] 2021-08-04 2021-08-04 Outpatient DERRICK DELA CRUZ [facility] [id number] Gill 00:00:00 00:00:[address] 2021-08-01 2021-08-03 Outpatient LAILA [facility] 503 [id number] Gill 00:00:00 00:00:00 JENNY [address] 2021-07-23 2021-07-23 Outpatient DERRICK DELA CRUZ [facility] [id number] [id number] Gill 00:00:00 00:00:[address] 2021-07-23 2021-07-23 Outpatient DERRICK DELA CRUZ [facility] 824 [id number] Gill 00:00:00 00:00:[address] 2021-07-21 2021-07-21 Outpatient DERRICK DELA CRUZ [facility] [id number] Gill 00:00:00 00:00:[address] 2021-07-21 2021-07-21 Outpatient DERRICK DELA CRUZ [facility] [id number] Gill 00:00:00 00:00:[address] 2021-06-28 2021-07-06 Inpatient NILS COWAN [facility] 078 [id number] Gill 00:00:00 00:00:[address] 2021-06-02 2021-06-02 Outpatient JONATAHN COVINGTON [facility] [id number] Gill 00:00:00 00:00:[address] 2021-04-26 2021-04-26 Emergency X [facility] ERT [id number] Univers 16:39:00 16:39:00 [facility] Results Test Test Test Results Result Source Description Time Comments Comments IR Bilateral 2023-08- Performing RadiologistAdeel Latter Day Nephrostomy 29 MD Taj [facility] Eval/Possible 20:15:04 Anesthesia TypeModerate Exchange sedation was administered by the procedure nurse and monitored intraservice [id number] by the procedure physician for 20 minutes. Lidocaine 1% was used for local anesthetic. IndicationHydronephrosis Procedure1. Left tube nephrostogram2. Exchange of left percutaneous nephrostomy catheter3. Right tube nephrostogram4. Exchange of right percutaneous nephrostomy catheter TechniqueWritten informed consent was obtained prior to the procedure. The patient was placed in a prone position on the procedure table. The back was sterilely prepared and draped in the routine manner. Lidocaine 1% was used for local anesthetic. A left tube nephrostogram was then performed injection of contrast through the indwelling percutaneous nephrostomy catheter. This catheter was then cut, and a 0.035 inch wire was advanced through this percutaneous nephrostomy catheter into the left renal pelvis under fluoroscopy. The indwelling left percutaneous nephrostomy catheter was then removed, and a new 10.2 Sudanese percutaneous nephrostomy catheter was then placed over the guidewire. The catheter tip was placed within the left renal pelvis. This catheter was then sewn to skin using 2-0 silk suture and attached to gravity bag drainage. A right tube nephrostogram was then performed injection of contrast through the indwelling percutaneous nephrostomy catheter. This catheter was then cut, and a 0.035 inch wire was advanced through this percutaneous nephrostomy catheter into the right renal pelvis under fluoroscopy. The indwelling right percutaneous nephrostomy catheter was then removed, and a new 8.5-Sudanese percutaneous nephrostomy catheter was then placed over the guidewire. The catheter tip was placed within the right renal pelvis. This catheter was then sewn to skin using 2-0 silk suture and attached to gravity bag drainage. The patient tolerated the procedures well. FluoroscopyKa,r = 4 mGy ComplicationsNone Specimens RemovedNone Estimated Blood LossLess than 1 mL Blood/Blood Products AdministeredNone Grafts/ImplantsAs described in the above report Impression: 1. A left tube nephrostogram demonstrates the indwelling percutaneous catheter with pigtail in the left renal pelvis. There is moderate hydronephrosis 2. Successful exchange of indwelling left percutaneous nephrostomy catheter for new 10.2 Sudanese percutaneous nephrostomy catheter, as detailed above. The catheter pigtail was formed within the left renal pelvis. The catheter was placed to gravity bag drainage. 3. A right tube nephrostogram demonstrates the indwelling percutaneous catheter with pigtail in the right renal pelvis. There is moderate hydronephrosis 4. Successful exchange of indwelling right percutaneous nephrostomy catheter for new 8.5-Sudanese percutaneous nephrostomy catheter, as detailed above. The catheter pigtail was formed within the right renal pelvis. The catheter was placed to gravity bag drainage. [id number] [facility] 2023-09-13 17:34:57 Test Item Value Reference Range Interpretation Comme [facility] SUPPLIER NAME (test code = 6415) [facility] SUPPLIER PHONE (test code = 6493) ORDER STATUS (test code = 6417) Delivery Successful DELIVERY NOTE (test code = 6419) REQUESTED DELIVEY DATE (test code = 6420) 09/13/2023 ITEM DESCRIPTION (test code = 6423) Abby Walker, Adult Qty: 1 ACTUAL DELIVERY DATE (test code = 6422) 09/13/2023 [facility] [id number] 16:52:00 Test Item Value Reference Range Interpretation Comments POC glucose (test 78 mg/dL 65-99 Living Coach N pastora: Alexigail code = 41391-0) Monique ID: [id number] able: [facility] Notified RN [facility] Renal Scan Wflow Funct Sgl Int W/Mag [id number] 23:05:45 Procedure: NM RENAL SCAN WFLOW FUNCT SGL INT W MAG 3 Clinical History: Hydronephrosis Comparison: Nophungerfordr nuclear renal scans. Technique:The patient was injected with 10 millicuries of qjjsnbvxti-14s-MKQ3 intravenously, followed by dynamic imaging of the kidneys in the posterior projection for 40 minutes. At 20 minutes postinjection, the patient was injected with a standard dose of Lasix intravenously. Findings: Perfusion and uptake are moderately to markedly reduced bilaterally, roughly symmetrically. Quantitative split function suggests slightly lower perfusion/uptake in the right kidney, but this may be artifactual secondary to placement of the background region of interests. SPLIT FUNCTION:Lef t kidney = 61%Right kidney = 39% Both kidneys are drained by nephrostomy tubes. There is some excretion from the left collecting system prior to Lasix, with continued washout following Lasix, indicating absence of obstruction. Excretion from the right collecting system is markedly delayed prior to Lasix with some washout following Lasix. In both cases, tracer activity can be seen entering and moving through the nephrostomy tubes. No activity is seen in the bladder, but this is not definitely included in the xmmbw-ll-xctj. Wash-out T(1/2) in response to Lasix = ~40 min (right kidney) Normal = < 10 min Indeterminate = 10-20 min Delayed = >20 min Please note, however, that the above washout rang es were derived from kidneys with normal function. Significantly reduced renal function results in considerably slower washout in response to Lasix. IMPRESSION: 1.Moderately to markedly reduced perfusion and function bilaterally. 2.No definite evidence of obstruction in the left kidney. 3.Findings are indeterminate in the right kidney. Please note that accuracy of a Lasix renal scan drops considerably with worsening renal function. [facility]-[id number] HospitalECG 12 [id number] 15:10:09 Test Item Value Reference Range Interpretation Comments Ventricular rate (test 109 code = 253) Atrial rate (test code 109 = 255) MS interval (test code 164 = 266) QRSD interval (test 82 code = 260) QT interval (test code 318 = 264) QTC interval (test code 428 = 265) P axis 1 (test code = 55 267) QRS axis 1 (test code = -17 268) T wave axis (test code 96 = 270) EKG impression (test Sinus tachycardia-T code = 273) wave abnormality, consider lateral ischemia-Abnormal ECG-In automated comparison with ECG of 09-SEP-2023 16:48,-Vent. rate has increased BY 44 BPM- [facility] ED Preliminary Interpretation - Not an [id number] 01:11:26 Test Item Value Reference Range Interpretation Comments ZAID (test code = ZAID) Jimmy Gore MD 09/10/2023 2:55 [facility] Preliminary Interpretation - Not an Order Date/Time: 09/08/2023 7:11 PM Performed by: Jimmy Gore MDAuthorized by: Jimmy Gore MD Interpretation: Interpretation: abnormal Rate: ECG rate: 70 ECG rate assessment: normal Rhythm: Rhythm: sinus rhythm Ectopy: Ectopy: none QRS: QRS axis: Normal QRS intervals: Normal QRS conduction: normal ST segments: ST segments: Non-specific Details: Subtle, in v5 and v6T waves: T waves: normal Lab Interpretation Abnormal (test code = 56780-4) [facility] Renal Stone [id number] 01:01:34CT RENAL STONE PROTOCOL CLINICAL INDICATION: abd pain. high creatine TECHNIQUE: Multidetector CT of the abdomen and pelvis was performed without intravenous contrast with multiplanar reconstructions. CT imaging was performed with iterative reconstruction technique and/or automated exposure control to reduce radiation dose. COMPARISON: 06/26/2023. FINDINGS:The lack of intravenous contrast partially limits evaluation. LUNG BASES: Increased size and number of bilateral pulmonary nodules measure up to 1.8 cm.LIVER: Increased size and number of multiple hepatic lesions measuring up to 5.7 cm.BILIARY: No radiopaque gallstones. No biliary dilatation.PANCREAS: No inflammatory changes.SPLEEN: Normal.ADRENALS: Normal. KIDNEYS: Bilateral nephrostomy tubes in position. Mild left hydroureteronephrosis.GI: No bowel obstruction. No evidence of acute appendicitis. Bilateral colostomies. Similar small left parastomal hernia containing nonobstructed small bowel.PERITONEUM: Trace free fluid. No free air.VASCULAR: No aortic aneurysm.LYMPH NODES: Increased multistation lymphadenopathy, for example a 4.0 cm right periaortic lymph node previously measured 3.6 cm.PELVIC ORGANS: Increased size of a locally advanced rectal cancer involving the seminal vesicles, bladder, and prostate. The central portion of the mass appears necrotic with tiny foci of air internally. The visualized portion of the bladder wall is thickened with small foci of intravesicular air.MUSCULOSKELETAL: No destructive osseous lesion. Anasarca. IM PRESSION:1.Interval increased size of locally advanced necrotic rectal malignancy invading into surrounding pelvic structures as described above.2.Increased metastatic tumor burden involving the liver,lymph nodes, and lung.3.Bilateral nephrostomy tubes in position. There is mild left hydroureteronephrosis. [id number] Vw Portable 2023-09-08 22:32:16EXAMINATION: XR CHEST 1 VW PORTABLE CLINICAL HISTORY: SOB COMPARISON: March 22, 2023 chest IMPRESSION:Numerous small bilateral nodular densities throughout each lung measuring up to 1.1 cm Suspect metastatic disease. CT chest recommended. No focal infiltrate No effusion No visible pneumothorax The cardiomediastinal silhouette is normal in size. Right IJ port unchanged [id number] ([facility]E)2023-08-20 16:03:30 Test Item Value Reference Range Interpretation Comments Height (test code = 74 in 0726147549) Weight (test code = 165 lbs 2793002338) Systolic BP (test code = 119 mmHg 2242895955) Diastolic BP (test code 80 mmHg = 1633969644) Heart Rate (test code = 94 bpm 2446769320) BSA (test code = 1.84 m2 9749308793) Ao root diam (test code 3.90 cm = 0965040068) Aortic root (test code = 3.9 cm 8632657496) Ao root annulus (test 3.9 cm code = 2788387895) LVOT diameter (test code 2.17 cm = 6927235042) LVOT area (test code = 3.70 cm2 8988079295) LA size (test code = 3.4 cm 2159621050) TR Peak Nichelle (test code = 256.7 cm/s 0763971649) Triscuspid Valve 26.4 mmHg Regurgitation Peak Gradient (test code = 7288645199) E wave decelartion time 0.11 s (test code = 4896637455) MV stenosis pressure 1/2 31.8 ms time (test code = 4636069852) MV Peak A Nichelle (test code 72.8 cm/s = 3944140392) MV Peak E Nichelle (test code 129.4 cm/s = 5599112062) E/A ratio (test code = 1.78 ratio 9756172560) MR max PG (test code = 125.60 mm[Hg] 9882888358) MR max nichelle (test code = 560.40 cm/s 5449207839) Mr max nichelle (test code = 560.4 m/s 2552121332) MV Prop V (test code = 80.90 cm/s 5057475036) MV E/e' septal (test 9.1 cm/s code = 7831223051) LAV(MOD-sp4) (test code 47.90 mL = 4169211839) Tapse (test code = 2.43 cm 3721571446) LVOT stroke volume (test 45.80 cm3 code = 2811780589) LVOT peak nichelle (test code 73.9 cm/s = 3683660270) LVOT mn grad (test code 1.1 mmHg = 8965529915) AV LVOT peak gradient 2.18 mmHg (test code = 4798475032) LVOT peak VTI (test code 12.4 cm = 4965889234) LV V1 mean (test code = 49.00 cm/s 4118052107) Aortic valve mean 159.5 cm/s velocity (test code = 0941182725) Ao peak nichelle (test code = 215.2 cm/s 7143771346) Ao VTI (test code = 36.5 cm 1910431449) AV area by cont VTI 1.3 cm2 (test code = 8063729310) AV area peak nichelle (test 1.3 cm2 code = 3965763880) Ao max PG (test code = 18.50 mm[Hg] 4590643044) AV peak gradient (test 18.5 mmHg code = 2269957244) AV valve area (test code 1.25 cm2 = 0938544301) AV mean gradient (test 10.9 mmHg code = 7501687957) AV regurgitation 608.0 ms pressure 1/2 time (test code = 9097219233) AI dec slope (test code 174.60 cm/s2 = 2492696610) AI max nichelle (test code = 362.40 cm/s 7318800989) AI max PG (test code = 52.60 mm[Hg] 3155162133) LVIDD (test code = 6.50 cm 3901808132) Left Ventricular End 216.9 mL Diastolic Volume by Teichholz Method (test code = 0481083) IVS (test code = 1.01 cm 3848303330) Interventricular Septum 1.01 cm Diastolic Thickness by 2D (test code = 6409730) LVPWD (test code = 1.01 cm 2170418628) PW (test code = 1.01 cm 0.6-1.1 9997936473) EF(Teich) (test code = 17.60 % 3170896799) LVIDS (test code = 6.00 cm 7291756000) Left Ventricular End 178.8 mL Systolic Volume by Teichholz Method (test code = 6461314) FS (test code = 8 % 2736362231) EF - 2D (test code = 17.60 % 51156101) Radiology Study observation (narrative) (test code = 36118-6) ZAID (test code = ZAID) ?Left?Ventricle: Left [...] ValveMitral valve structure is normal. Mild transvalvular regurgitation.Tricusp id ValveTricuspid valve structure is normal. Trace transvalvular regurgitation. Right ventricular systolic pressure is normal. RA pressure is 0-5 mmHg.Aortic ValveTricuspid. Mildly calcified cusps. Mild transvalvular regurgitation.Pulmoni c ValveNot well visualized.Ascending AortaNormal sized aorta.PericardiumTriv ial pericardial effusion present. Left pleural effusion.Study DetailsStudy quality was adequate. A complete echocardiogram was performed using 2D, color flow Doppler and spectral Doppler. 5 mL of Lumason ultrasound enhancing agent used. [facility]12, [id number] 22:49:14 Test Item Value Reference Range Interpretation Comments VIT B12 (test code = 929 pg/mL 240-930 0497722842) ZAID (test code = ZAID) Biotin has been reported to cause a positive bias, interpret results relative to patient's use of biotin. Lab Interpretation (test Normal code = 78907-4) [facility] HospitalPROCALCITONIN2023-11-03 21:52:31 Test Item Value Reference Range Interpretation Comments Procalcitonin (test 3.26 ng/mL <=0.07 H code = 4831129583) ZAID (test code = ZAID) INTERPRETATION OF [...] lung abscess/empyema. For further information please refer to:[email or web address] Lab Interpretation Abnormal (test code = 18686-4) [facility] Hospital[facility] D, [id number] 20:27:24 Test Item Value Reference Range Interpretation Comments VIT D 25OH (test code = 19 ng/mL 25-80 L 53303-9) ZAID (test code = ZAID) Deficiency: <20 ng/mLInsufficiency: 20-24 ng/mLOptimal: 25-80 ng/mL Lab Interpretation (test Abnormal code = 69782-6) [facility] HospitalC-REACTIVE [id number] 17:57:15 Test Item Value Reference Range Interpretation Comments CRP (test code = 7938970544) 22.2 mg/dL <=0.8 H Lab Interpretation (test code = Abnormal 90822-6) [facility] HospitalTHYROID STIMULATING [id number] 12:36:56 Test Item Value Reference Range Interpretation Comments TSH (test code = 1.60 See_Comment [Automated message] 1806623234) The system [employer] generated this result transmitted ref erence range: 0.45 - 4 .70 mIU/L. The refe rence range was not u sed to interpret this result as normal/abnor mal. Lab Interpretation (test Normal code = 00431-5) [facility] HospitalSEDIMENTATION [id number] 12:10:32 Test Item Value Reference Range Interpretation Comments ESR (test code = See_Comment H [Automated message] 23742-8) The system [employer] generated this result transmitted ref erence range: 0 - 10 m m/HR. The reference r nilay was not used to interpret this result as normal/abnor mal. Lab Interpretation (test Abnormal code = 05816-6) [facility] HospitalMAGNESIUM2023-11-03 12:05:54 Test Item Value Reference Range Interpretation Comments MAGNESIUM (test code = 8922857102) 1.8 mg/dL 1.7-2.4 Lab Interpretation (test code = Normal 52919-6) [facility] HospitalLIPID PANEL (61782)(TOTAL CHOLESTEROL, TRIGLYCERIDES, HDL)2023-08-18 12:05:54 Test Item Value Reference Range Interpretation Comments CHOL (test code = 0635552239) 193 mg/dL 120-200 HDL (test code = 0810269512) 43 mg/dL >=40 HDLC RATIO (test code = 2801109687) 4.5 <=5.0 TRIG (test code = 0914545048) 119 mg/dL 30-170 LDL CHOL (test code = 35279-2) 126 mg/dL <=160 VLDL (test code = 7042286860) 24 mg/dL 5-60 Lab Interpretation (test code = Normal 42958-3) [facility] HospitalPHOSPHORUS2023-11-03 12:05:34 Test Item Value Reference Range Interpretation Comments PHOSPHORUS (test code = 3783853466) 3.9 mg/dL 2.5-5.0 Lab Interpretation (test code = Normal 72980-5) [facility] HospitalURIC [id number] 12:05:13 Test Item Value Reference Range Interpretation Comments URIC ACID (test code = 4393118431) 9.3 mg/dL 3.6-8.0 H Lab Interpretation (test code = Abnormal 65744-7) [facility]-18 12:02:57 Test Item Value Reference Range Interpretation Comments HGB A1C (test code = 5.4 % 4.0-5.7 4548-4) ZAID (test code = ZAID) Reference RangesNormal: <5.7%Prediabetes: 5.7 - 6.4%Diabetes: > 6.5% Lab Interpretation (test Normal code = 44097-2) [facility] HospitalProthrombin [facility] / [id number] 12:02:11 Test Item Value Reference Range Interpretation Comments PROTIME PATIENT (test 13.8 See_Comment [Auto mated message] code = 5964-2) The system [employer] generated this result transmitted ref erence range: 12.0 - 1 4.7 Seconds. The re ference range was not u sed to interpret this result as normal/abnor mal. INR (test code = 6301-6) 1.1 Nor mal INR <1.1; Warfarin Therap eutic range 2.0 to 3. 0 or 2.5 to 3.5, dep ending upon the indica tions. Lab Interpretation (test Normal code = 21747-8) [facility] VENOUS BLOOD [id number] 11:35:07 Test Item Value Reference Range Interpretation Comments PH (test code = 7.36 7.32-7.42 9497466288) PCO2 OTIS (test code = 42 See_Comment [Auto mated message] [id number]) The system [employer] generated this result transmitted ref erence range: 41 - 51 mmHg. The reference r nilay was not used to interpret this result as normal/abnor mal. PO2 OTIS (test code = 34 See_Comment [Autom ated message] 6587460769) The system [employer] generated this result transmitted ref erence range: 25 - 40 mmHg. The reference r nilay was not used to interpret this result as normal/abnor mal. HCO3 OTIS (test code = 23 See_Comment L [Auto mated message] [id number]) The system [employer] generated this result transmitted ref erence range: 24 - 28 mEq/L. The reference r nilay was not used to interpret this result as normal/abnor mal. AC VBE(BEAKER) (test -2.3 mEq/L code = 5812247002) Lab Interpretation (test Abnormal code = 24688-6) [facility] GLUCOSE (AUTOMATED)2023-08-18 08:41:32 Test Item Value Reference Range Interpretation Comments POCT GLU (test code = 4526537572) 142 mg/dL 70-110 H Lab Interpretation (test code = Abnormal 19474-3) [facility] GLUCOSE (AUTOMATED)2023-08-18 08:02:09 Test Item Value Reference Range Interpretation Comments POCT GLU (test code = 7963187574) 100 mg/dL 70-110 Lab Interpretation (test code = Normal 35301-5) [facility]. METABOLIC PANEL (55068)2023-08-18 05:21:41 Test Item Value Reference Range Interpretation Comments NA (test code = 133 mmol/L 135-145 L 2882370554) K (test code = 5.8 mmol/L 3.5-5.0 H 6648146628) CL (test code = 97 mmol/L 98-108 L 9390189946) CO2 TOTAL (test code = 25 mmol/L 23-31 9464292079) AGAP (test code = 11 2-16 6515181837) BUN (test code = 39 mg/dL 7-23 H 2794216660) GLUCOSE (test code = 130 mg/dL 70-110 H 4561299136) CREATININE (test code = 4.02 mg/dL 0.60-1.25 H 0567356088) TOTAL BILI (test code = 0.5 mg/dL 0.1-1.2 6671203201) CALCIUM (test code = 10.1 mg/dL 8.6-10.6 1121264082) T PROTEIN (test code = 7.9 g/dL 6.3-8.2 4582547200) ALBUMIN (test code = 3.4 g/dL 3.5-5.0 L 6208958349) ALK PHOS (test code = 79 U/L 34-122 2881163286) ALTv (test code = 7 U/L 5-50 1742-6) AST(SGOT) (test code = 23 U/L 13-40 9428607523) eGFR (test code = 16.2 mL/min/1.73m2 CKD-EPI e GFR 53739-5) (2020). Assumin g creatinine has been stable day-to-d ay for at least th ree months, the eGF R indicates Categ ory G4 (15 - 29 mL/min/1.73 m2) Lab Interpretation (test Abnormal code = 19260-3) [facility] WITH [id number] 05:06:58 Test Item Value Reference Range Interpretation Comments WBC (test code = 11.83 See_Comment H [Automated 7670-2) message] The system which generated this result transmit yolande reference range : 4.20 - 10.70 10*3/?L. The reference range was not used to interpret this result as normal/abnormal . RBC (test code = 3.37 See_Comment L [Automated 730-8) message] The system which generated this result [...] (test code = 63.9 fL 38.5-51.6 H 15876-5) RDW-CV (test code = 21.8 % 12.1-15.4 H 788-0) PLT (test code = 578 See_Comment H [Automated 777-3) message] The system which generated this result transmit yolande reference range : 150 - 328 10*3/ ?L. The reference range was not u sed to interpret th is result as normal/abnormal . MPV (test code = 9.7 fL 9.8-13.0 L 60831-7) NRBC/100 WBC (test 0.0 See_Comment [Automat ed code = 5956867249) message] The system which generated this result transmit yolande reference range : 0.0 - 10.0 /100 WBCs. The reference range was not used to interpret this result as normal/abnormal . NRBC x10^3 (test code See_Comment [Auto mated = 8619906040) message] The system which generated this result transmit yolande reference range : 10*3/?L. The reference range was not used to interpret this result as normal/abnormal . GRAN MAT (NEUT) % 89.5 % (test code = 770-8) IMM GRAN % (test code 0.30 % = 9715299255) LYMPH % (test code = 3.5 % 736-9) MONO % (test code = 6.3 % 5905-5) EOS % (test code = 0.1 % 713-8) BASO % (test code = 0.3 % 706-2) GRAN MAT x10^3(ANC) 10.60 10*3/uL 1.99-6.95 H (test code = 0874168961) IMM GRAN x10^3 (test 0.04 10*3/uL 0.00-0.06 code = 9173070309) LYMPH x10^3 (test code 0.41 10*3/uL 1.09-3.23 L = 731-0) MONO x10^3 (test code 0.74 10*3/uL 0.36-1.02 = 742-7) EOS x10^3 (test code = 0.06-0.53 L 711-2) BASO x10^3 (test code 0.03 10*3/uL 0.01-0.09 = 704-7) Lab Interpretation Abnormal (test code = 57418-6) [facility] Whole [id number] 04:27:59 Test Item Value Reference Range Interpretation Comments LACTIC ACID (test code = 1.66 mmol/L 0.50-2.20 1859289916) Lab Interpretation (test code = Normal 18731-6) [facility] W/PLT COUNT & AUTO DIFFERENTIAL [...] 0.00-1.00 PERCENT (BEAKER) (test code = 2801) [id number] 05:31:52 Test Item Value Reference Range Interpretation Comments MAGNESIUM (BEAKER) (test code = 1.7 mg/dL 1.6-2.6 627) Living Coach ID - ADMINBASIC METABOLIC [id number] 05:31:51 Test Item Value Reference Range Interpretation [...] not appl icable for dialysis patien ts Living Coach ID - ADMINChloride, random [id number] 06:38:36 Test Item Value Reference Range Interpretation Comments Chloride, Urine (test 36 meq/L 20330 code = 46102-2) ZAID (test code = ZAID) Reference Range: No NormalsOperator ID - NTP Lab Interpretation Normal (test code = 44606-7) [facility] [id number] 06:38:36 Test Item Value Reference Range Interpretation Comments Sodium Urine (test 36 meq/L code = 2955-3) ZAID (test code = Reference Range: No ZAID) NormalsOperator ID - NTP [facility] random [id number] 06:38:36 Test Item Value Reference Range Interpretation Comments Chloride, Urine (test 36 meq/L 330 code = 36840-8) ZAID (test code = ZAID) Reference Range: No NormalsOperator ID - NTP Lab Interpretation Normal (test code = 79845-9) [facility] [id number] 06:38:36 Test Item Value Reference Range Interpretation Comments Sodium Urine (test 36 meq/L code = 2955-3) ZAID (test code = Reference Range: No ZAID) NormalsOperator ID - NTP [facility]CHLORIDE, RANDOM [id number] 06:38:36 Test Item Value Reference Range Interpretation Comments CHLORIDE URINE (BEAKER) (test code = 36 meq/L 20330 682) Reference Range: No NormalsOperator ID - NTPSODIUM, RANDOM [id number] 06:38:36 Test Item Value Reference Range Interpretation Comments SODIUM URINE (BEAKER) (test code = 36 meq/L 243) Reference Range: No NormalsOperator ID - NTPBASIC METABOLIC [id number] 06:17:08 Test Item Value Reference Range Interpretation [...] not appl icable for dialysis patien ts Living Coach ID - ZIGGY LRACKZXFGR7431-35-56 06:17:08 Test Item Value Reference Range Interpretation Comments MAGNESIUM (BEAKER) (test code = 1.8 mg/dL 1.6-2.6 627) Living Coach ID - ZIGGY WOsmolality, lhmec2481-30-16 06:16:55 Test Item Value Reference Range Interpretation Comments Osmolality, Ur (test code 337 See_Comment [ Automated message] = 0505-5) The system [employer] generated this result transmitted ref erence range: 50-1,200 mOsm/kg mOsm/kg . The reference range was not used to int erpret this result as normal/abnormal . Lab Interpretation (test Normal code = 97549-0) [facility] HospitalOsmolality, oxwie2958-87-13 06:16:55 Test Item Value Reference Range Interpretation Comments Osmolality, Ur (test code 337 See_Comment [ Automated message] = 2695-5) The system whic h generated this result transmitted ref erence range: 50-1,200 mOsm/kg mOsm/kg . The reference range was not used to int erpret this result as normal/abnormal . Lab Interpretation (test Normal code = 17809-1) [facility] HospitalOSMOLALITY, [id number] 06:16:55 Test Item Value Reference Range Interpretation Comments OSMOLALITY URINE 337 mOsm/kg See_Comment [Automated message] (BEAKER) (test code = The sy stem which 614) generated this result transmitted ref erence range: 50-1,200 mOsm/kg. The reference range was not used to int erpret this result as normal/abnormal . CBC W/PLT COUNT & AUTO [id number] 06:03:53 Test Item Value Reference Range Interpretation [...] (BEAKER) (test code = 2801) BASIC METABOLIC [id number] 05:40:18 Test Item Value Reference Range Interpretation [...] eGF R is based on the CKD-EPI 202 equation that d oes not use a race coefficientEsti mated GFR is not as accur ate as Creatinine Renetta juancarlos in predicting glom erular filtration rate . Estimated GFR is not appl icable for dialysis patien ts Living Coach ID - [id number] 05:40:18 Test Item Value Reference Range Interpretation Comments MAGNESIUM (BEAKER) (test code = 1.7 mg/dL 1.6-2.6 627) Living Coach ID - ADMINCBC W/PLT COUNT & AUTO [id number] 05:20:16 Test Item Value Reference Range Interpretation [...] (BEAKER) (test code = 2801) BASIC METABOLIC [id number] 05:43:12 Test Item Value Reference Range Interpretation [...] not appl icable for dialysis patien ts Living Coach ID - ZIGGY [id number] 05:43:12 Test Item Value Reference Range Interpretation Comments MAGNESIUM (BEAKER) (test code = 1.6 mg/dL 1.6-2.6 627) Living Coach ID - ZIGGY WCBC W/PLT COUNT & AUTO [id number] 05:40:05 Test Item Value Reference Range Interpretation [...] 327 U/L 125-220 H code = 635) Living Coach ID - MARCOBASIC METABOLIC [id number] 06:34:27 Test Item Value Reference Range Interpretation [...] not appl icable for dialysis patien ts Living Coach ID - [id number] 06:34:27 Test Item Value Reference Range Interpretation Comments MAGNESIUM (BEAKER) (test code = 1.6 mg/dL 1.6-2.6 627) Living Coach ID - MARCOCBC W/PLT COUNT & AUTO [id number] 06:03:36 Test Item Value Reference Range Interpretation [...] code = 2801) CT ABDOMEN/PELVIS WITHOUT IV CONTRAST Juezfoorpanm3365-09-22 22:25:31EXAM: CT ABDOMEN/PELVIS WITHOUT IV CONTRAST CLINICAL INDICATION: Colorectal cancer, surveillance TECHNIQUE: CT of the abdomen and pelvis was performed without theadministration of intravenous contrast.Multiplanar reformatted imagesare provided for interpretation. Dose modulation, iterativereconstruction, and/or weight based adjustment of the mA/kV was utilizedto reduce the radiation dose to as low as reasonably achievable. COMPARISON: Renal ultrasound, 08/02/2023. FINDINGS: Lung bases: There are several noncalcified pulmonary nodules in thebilateral lower lobes. A advertising account representative example in the left lower lobemeasures 8 x 6 mm. Trace pericardial effusion. There are coronary arterycalcium occasions. Organs: Completely evaluated without intravenous contrast. Bilateralpercutaneous nephrostomy tubesare in place. The left-sided nephrostomytube pigtail cysts in the left lower pole kidney. A mild left hydronephrosis and proximal hydroureter. The right-sided pigtail is seenwithin the right renal pelvis. No contour deforming renal mass. A fewlow-attenuation renal cysts are present. No nephrolithiasis.Theunenhanced liver, spleen, pancreas and adrenal glands are without acutefindings. Several low-attenuation hepatic metastases are present. Forexample, a low attenuation lesion in hepatic segment eightwhichmeasures 3.5 cm (axial image six). Biliary: The gallbladder is present. Suspect small layering stones orgallbladder sludge. No evidence of intra or extrahepatic biliarydilatation. GI tract: A leftupper quadrant colostomy is in place with a small bowelcontaining peristomal hernia. A right lower quadrant colostomy is alsopresent. No associated obstruction. There are mildly distended gas andfluid-filled loops of small bowel in the left abdomen with no definitetransition point identified within the limitations of the exam. Normalcaliber of the colon. No evidence of appendicitis. Soft tissuethickening in the left lateral rectum which likely reflects residual orrecurrent disease. Pelvis: Limited evaluation without intravenous contrast. There isbladder wall thickening and gas within the bladder suggestive ofcystitis. There appears to be a breach in the anterior rectal wall withan extraluminal fluid collection interposed between the bladder andrectum. This collection measures approximately 5.2 x 3.2 x 3.6 cm. Peritoneum/retroperitoneum: No pneumoperitoneum. No ascites. A few tinynodular densities in the left upper quadrant at the splenic hilum arenonspecific and could reflect small splenules ormetastatic soft tissuenodules. There is a cluster of enlarged lymph nodes in the midabdomen.For example, a 2.1 cm short axis lymph node on axial image 45. Numerousenlarged periaortic lymph nodes are also noted. Bones/soft tissues: No acute or aggressive osseous lesions.[facility]CT [facility]LV[facility] WITHOUT IV [id number] 22:25:31 [facility] : 1965 Sex: MEXAM: CT [...] pulmonary nodules in thebilateral lower lobes. A advertising account representative example in the left lower lobemeasures [...] malfunction.Electronically Signed By: Valentine Davis08/10/2023 22:27 CDTWorkstation Name:[id number], RANDOM [id number] 15:33:35 Test Item Value Reference Range Interpretation Comments SODIUM URINE (BEAKER) (test code = 56 meq/L 243) Reference Range: No NormalsOperator ID - ADMINCreatinine, random wkgyi8933-81-64 15:33:34 Test Item Value Reference Range Interpretation Comments Creatinine, Ur 90.4 mg/dL (test code = 2161-8) ZAID (test code = Reference Range: No ZAID) NormalsOperator ID - ADMIN [facility] HospitalProtein, random [id number] 15:33:34 Test Item Value Reference Range Interpretation Comments Protein, Urine (test code 46 mg/dL 0-14 H = 2888-6) ZAID (test code = ZAID) Living Coach ID - ADMIN Lab Interpretation (test Abnormal code = 73633-9) [facility] HospitalCreatinine, random [id number] 15:33:34 Test Item Value Reference Range Interpretation Comments Creatinine, Ur 90.4 mg/dL (test code = 2161-8) ZAID (test code = Reference Range: No ZAID) NormalsOperator ID - ADMIN [facility] HospitalProtein, random [id number] 15:33:34 Test Item Value Reference Range Interpretation Comments Protein, Urine (test code 46 mg/dL 0-14 H = 2888-6) ZAID (test code = ZAID) Living Coach ID - ADMIN Lab Interpretation (test Abnormal code = 68274-2) [facility] HospitalCHLORIDE, RANDOM [id number] 15:33:34 Test Item Value Reference Range Interpretation Comments CHLORIDE URINE (BEAKER) (test code = 59 meq/L 20-330 682) Reference Range: No NormalsOperator ID - ADMINCREATININE, RANDOM [id number] 15:33:34 Test Item Value Reference Range Interpretation Comments CREATININE URINE (BEAKER) (test 90.4 mg/dL code = 375) Reference Range: No NormalsOperator ID - ADMINPROTEIN, RANDOM [id number] 15:33:34 Test Item Value Reference Range Interpretation Comments PROTEIN, URINE (BEAKER) (test code = 46 mg/dL 0-14 H 1569) Living Coach ID - ADMINUrinalysis w/Lpqpovopimf1757-08-03 15:26:58 Test Item Value Reference Range Interpretation Comments Color, UA (test code Light Yellow = 5778-6) Clarity, UA (test Clear code = 5767-9) Specific [place], UA 1.019 1.001-1.035 (test code = 5811-5) pH, UA (test code = 6.5 5.0-8.0 5803-2) Protein, UA (test 50 mg/dL Negative A code = 60731-7) Glucose, UA (test Negative Negative code = 365) Ketones, UA (test Negative Negative code = 2514-8) Bilirubin, UA (test Negative Negative code = 12483-7) Blood, UA (test code Negative Negative = 98941-4) Nitrite, UA (test Negative Negative code = 5802-4) Leukocytes, UA (test Moderate Negative A code = 5799-2) Urobilinogen, UA 0.2 0.2-1.0 (test code = 34399-4) RBC, UA (test code = 2 See_Comment [Autom ated 10184-7) message] The system which generated this result transmitted reference range : /HPF. The reference range was not used to interpret this result as normal/abnormal . WBC, UA (test code = 8 See_Comment [Autom ated 5821-4) message] The system which generated this result transmitted reference range : /HPF. The reference range was not used to interpret this result as normal/abnormal . Bacteria, UA (test Rare code = 44436-8) Specimen Source (test Urine, code = 2795) Nephrostomy ZAID (test code = ZAID) Living Coach ID - [auto]Living Coach ID - tech Lab Interpretation Abnormal (test code = 01018-3) [facility] HospitalUrinalysis w/Zlhipygdxpi7944-33-97 15:26:58 Test Item Value Reference Range Interpretation Comments Color, UA (test code Light Yellow = 5778-6) Clarity, UA (test Clear code = 5767-9) Specific [place], UA 1.019 1.001-1.035 (test code = 5811-5) pH, UA (test code = 6.5 5.0-8.0 5803-2) Protein, UA (test 50 mg/dL Negative A code = 65131-7) Glucose, UA (test Negative Negative code = 365) Ketones, UA (test Negative Negative code = 2514-8) Bilirubin, UA (test Negative Negative code = 36620-6) Blood, UA (test code Negative Negative = 08434-3) Nitrite, UA (test Negative Negative code = 5802-4) Leukocytes, UA (test Moderate Negative A code = 5799-2) Urobilinogen, UA 0.2 0.2-1.0 (test code = 62415-7) RBC, UA (test code = 2 See_Comment [Autom ated 74385-6) message] The system which generated this result transmitted reference range : /HPF. The reference range was not used to interpret this result as normal/abnormal . WBC, UA (test code = 8 See_Comment [Autom ated 5821-4) message] The system which generated this result transmitted reference range : /HPF. The reference range was not used to interpret this result as normal/abnormal . Bacteria, UA (test Rare code = 09773-3) Specimen Source (test Urine, code = 2795) Nephrostomy ZAID (test code = ZAID) Living Coach ID - [auto]Living Coach ID - tech Lab Interpretation Abnormal (test code = 55186-6) [facility] HospitalURINALYSIS W/ [id number] 15:26:58 Test Item Value Reference Range Interpretation [...] 517) SOURCE(BEAKER) (test code Urine, Nephrostomy = 2795) Living Coach ID - [auto]Living Coach ID - techLACTATE DEHYDROGENASE (LDH)2023-08-10 12:46:18 Test Item Value Reference Range Interpretation Comments LACTATE DEHYDROGENASE (BEAKER) (test 433 U/L 125-220 H code = 635) Living Coach ID - ADMINURIC [id number] 12:46:13 Test Item Value Reference Range Interpretation Comments URIC ACID (BEAKER) (test code = 9.4 mg/dL 2.6-7.2 H 773) Living Coach ID - ADMINBASIC METABOLIC [id number] 06:54:01 Test Item Value Reference Range Interpretation [...] not appl icable for dialysis patien ts Living Coach ID - [id number] 06:47:39 Test Item Value Reference Range Interpretation Comments MAGNESIUM (BEAKER) (test code = 1.7 mg/dL 1.6-2.6 627) Living Coach ID - ADMINCBC W/PLT COUNT & AUTO [id number] 06:27:53 Test Item Value Reference Range Interpretation [...] (BEAKER) (test code = 2801) BASIC METABOLIC [id number] 05:02:22 Test Item Value Reference Range Interpretation [...] G3b Moderately to s everely 30-44 G4 Sever ly decreased 15-29 G5 Kidney failure <15Repo rted eGFR is based on the CKD-EPI 2020 equation t hat does not use a race coefficientEsti mated GFR is not as accur ate as Creatinine Renetta bauer in predicting glom erular filtration rate . Estimated GFR is not appl icable for dialysis patien ts Living Coach ID - ZIGGY MJKHAGKPKK2328-15-52 04:49:35 Test Item Value Reference Range Interpretation Comments MAGNESIUM (BEAKER) (test code = 1.8 mg/dL 1.6-2.6 627) Living Coach ID - ZIGGY WCBC W/PLT COUNT & AUTO [id number] 04:28:21 Test Item Value Reference Range Interpretation [...] (BEAKER) (test code = 2801) BASIC METABOLIC [id number] 05:08:33 Test Item Value Reference Range Interpretation [...] 30-44 G4 Severl y decreased 15-29 G5 Kidne y failure <15Reported eGF R is based on the CKD-EPI 2020 equation that d oes not use a race coefficientEsti mated GFR is not as accur ate as Creatinine Renetta bauer in predicting glom erular filtration rate . Estimated GFR is not appl icable for dialysis patien ts Living Coach ID - tfLZFHJCTZH9757-17-22 05:01:04 Test Item Value Reference Range Interpretation Comments MAGNESIUM (BEAKER) (test code = 1.8 mg/dL 1.6-2.6 627) Living Coach ID - emCBC W/PLT COUNT & AUTO CJQGSUKRGDRB0630-28-70 04:52:49 Test Item Value Reference Range Interpretation [...] 0.00-1.00 PERCENT (BEAKER) (test code = 2801) Prepare Leuko-Red [id number] 23:55:00 Test Item Value Reference Range Interpretation Comments CROSSMATCH (test code = 2264) COMPATIBLE Unit ABO (test code = A Pos 3993112) UNIT NUMBER (test code = [id number] 934-0) Status (test code = 4541975) [facility] Product (test code RED BLOOD CELLS = 2263) PRODUCT CODE (test code = [id number] 933-2) [facility] HospitalPrepare Leuko-Red [id number] 23:55:00 Test Item Value Reference Range Interpretation Comments CROSSMATCH (test code = 2264) COMPATIBLE Unit ABO (test code = A Pos 5776746) UNIT NUMBER (test code = [id number] 934-0) Status (test code = 9285034) [facility] Product (test code RED BLOOD CELLS = 2263) PRODUCT CODE (test code = [id number] 933-2) [facility] HospitalVANCOMYCIN LEVEL, [id number] 11:27:37 Test Item Value Reference Range Interpretation Comments VANCOMYCIN TROUGH (BEAKER) (test 4.8 ug/mL 10.0-20.0 L code = 522) Living Coach ID - BCBLOOD [id number] 11:00:50 Test Item Value Reference Range Interpretation Comments CULTURE (BEAKER) (test No growth in 5 days code = 1095) The specimen volume collected for this blood culture was below the optimum (10 mL per bottle or 20 mL total). Use of lower volumes may adversely affect recovery and/or detection times of some organisms.BLOOD [id number] 11:00:50 Test Item Value Reference Range Interpretation [...] not appl icable for dialysis patien ts Living Coach ID - [id number] 05:02:02 Test Item Value Reference Range Interpretation Comments MAGNESIUM (BEAKER) (test code = 1.9 mg/dL 1.6-2.6 627) Living Coach ID - EOCBC W/PLT COUNT & AUTO [id number] 04:36:12 Test Item Value Reference Range Interpretation [...] 0.00-1.00 PERCENT (BEAKER) (test code = 2801) ECG 12 [id number] 13:51:19Ventricular Rate 86 BPMAtrial Rate 86 BPMP-R Interval 164 msQRS Duration 100 msQ-T Interval 366 msQTC Calculation(Noah) 437 msP [place] 58 degreesR [place] 11 degreesT [place] 88 degrees Normal sinus rhythmVol tage criteria for left ventricular hypertrophyNonspecific T wave abnormalityAbnormal ECGNo previous ECGs availableConfirmed by Shaji MCBRIDE BASANT ([id number]) on 08/06/2023 1:51:17 [facility] METABOLIC PANEL 2023-08-06 07:20:33 Test Item Value Reference Range Interpretation [...] (test code = 697) EGFR (BEAKER) 29 Interpretatio n of eGFR (test code = [...] not appl icable for dialysis patien ts Living Coach ID - EFJRFIKBXXGJIB9141-70-60 06:54:10 Test Item Value Reference Range Interpretation Comments MAGNESIUM (BEAKER) (test code = 1.9 mg/dL 1.6-2.6 627) Living Coach ID - ADMINCBC W/PLT COUNT & AUTO [id number] 06:37:53 Test Item Value Reference Range Interpretation [...] (BEAKER) (test code = 2801) HEMOGLOBIN AND [id number] 17:17:05 Test Item Value Reference Range Interpretation Comments HEMOGLOBIN (BEAKER) (test code = 7.2 GM/DL 13.7-17.5 L 410) HEMATOCRIT (BEAKER) (test code = 23.1 % 40.1-51.0 L 411) Living Coach ID - 6000BASIC METABOLIC [id number] 05:24:50 Test Item Value Reference Range Interpretation [...] G3b Moderately to s everely 30-44 G4 Sever ly decreased 15-29 G5 Kidney failure <15Repo rted eGFR is based on the CKD-EPI 2020 equation t hat does not use a race coefficientEsti mated GFR is not as accur ate as Creatinine Renetta juancarlos in predicting glom erular filtration rate . Estimated GFR is not appl icable for dialysis patien ts Living Coach ID - [id number] 05:23:48 Test Item Value Reference Range Interpretation Comments MAGNESIUM (BEAKER) (test code = 2.2 mg/dL 1.6-2.6 627) Living Coach ID - ADMINCBC W/PLT COUNT & AUTO [id number] 05:03:41 Test Item Value Reference Range Interpretation [...] 0.00-1.00 PERCENT (BEAKER) (test code = 2801) [id number] 14:23:07 Test Item Value Reference Range Interpretation Comments FERRITIN (BEAKER) (test code = 530.72 ng/mL 5.00-275.00 H 361) Living Coach ID - MARCOBASIC METABOLIC [id number] 14:05:58 Test Item Value Reference Range Interpretation [...] not appl icable for dialysis patien ts Living Coach ID - ADMINIRON, TIBC, % SAT. (WITHOUT FERRITIN)2023-08-04 14:01:28 Test Item Value Reference Range Interpretation Comments IRON (BEAKER) (test code = 547) 9.0 ug/dL 40.0-160.0 L TOTAL IRON BINDING CAPACITY 116 ug/dL 250-450 L (BEAKER) (test code = 769) IRON % SATURATION (2) (BEAKER) 8 % 20-55 L (test code = 2590) Living Coach ID - [id number] 14:00:46 Test Item Value Reference Range Interpretation Comments MAGNESIUM (BEAKER) (test code = 1.7 mg/dL 1.6-2.6 627) Living Coach ID - ADMINCBC W/PLT COUNT & AUTO [id number] 13:49:16 Test Item Value Reference Range Interpretation [...] 0.00-1.00 PERCENT (BEAKER) (test code = 2801) Urinalysis w/Microscopic + Reflex to [id number] 16:52:29 Test Item Value Reference Range Interpretation Comments Color, UA (test code Light Yellow = 5778-6) Clarity, UA (test Hazy code = 5767-9) Specific [place], UA 1.014 1.001-1.035 (test code = 5811-5) pH, UA (test code = 7.0 5.0-8.0 5803-2) Protein, UA (test 30 mg/dL Negative A code = 58878-2) Glucose, UA (test Negative Negative code = 365) Ketones, UA (test Negative Negative code = 2514-8) Bilirubin, UA (test Negative Negative code = 37159-2) Blood, UA (test code Negative Negative = 85621-6) Nitrite, UA (test Positive Negative A code = 5802-4) Leukocytes, UA (test Large Negative A code = 5799-2) Urobilinogen, UA 0.2 0.2-1.0 (test code = 82100-3) RBC, UA (test code = 3 See_Comment [Autom ated 99003-5) message] The system which generated this result transmit yolande reference range : /HPF. The reference range was not used to interpret this result as normal/abnormal . WBC, UA (test code = 35 See_Comment [Autom ated 5821-4) message] The system which generated this result transmit yolande reference range : /HPF. The reference range was not used to interpret this result as normal/abnormal . Specimen Source (test code = 2795) ZAID (test code = ZAID) Living Coach ID - [auto]Living Coach ID - tech Lab Interpretation Abnormal (test code = 26865-2) [facility] + Reflex to Culture 2023-08-03 16:52:29 Test Item Value Reference Range Interpretation Comments Color, UA (test code Light Yellow = 5778-6) Clarity, UA (test Hazy code = 5767-9) Specific [place], UA 1.014 1.001-1.035 (test code = 5811-5) pH, UA (test code = 7.0 5.0-8.0 5803-2) Protein, UA (test 30 mg/dL Negative A code = 71056-7) Glucose, UA (test Negative Negative code = 365) Ketones, UA (test Negative Negative code = 2514-8) Bilirubin, UA (test Negative Negative code = 90003-8) Blood, UA (test code Negative Negative = 20592-7) Nitrite, UA (test Positive Negative A code = 5802-4) Leukocytes, UA (test Large Negative A code = 5799-2) Urobilinogen, UA 0.2 0.2-1.0 (test code = 46043-7) RBC, UA (test code = 3 See_Comment [Autom ated 95081-3) message] The system which generated this result transmit yolande reference range : /HPF. The reference range was not used to interpret this result as normal/abnormal . WBC, UA (test code = 35 See_Comment [Autom ated 5821-4) message] The system which generated this result transmit yolande reference range : /HPF. The reference range was not used to interpret this result as normal/abnormal . Specimen Source (test code = 2795) ZAID (test code = ZAID) Living Coach ID - [auto]Living Coach ID - tech Lab Interpretation Abnormal (test code = 49016-0) [facility] REFLEX URINE [id number] 16:52:29 Test Item Value Reference Range Interpretation [...] /HPF 520) SOURCE(BEAKER) (test code = 2795) Living Coach ID - [auto]Living Coach ID - techBASIC METABOLIC [id number] 10:36:19 Test Item Value Reference Range Interpretation [...] eGFR (test code = mL/min/1.73 values Stage D escription 1092) sq m Result G1 Digna l [...] not appl icable for dialysis patien ts Living Coach ID - emCBC W/PLT COUNT & AUTO [id number] 09:59:41 Test Item Value Reference Range Interpretation [...] 0.00-1.00 PERCENT (BEAKER) (test code = 2801) ECHO W CONTRAST & [id number] 08:16:03Transthoracic Echocardiography Report (TTE) Demographics Patient Name SHANICE LORA Date of Study 08/02/2023 Gender Male Visit Number [id number] Race Black Room Number 1609 Number Date of 1965 Referring Physician Bacilio Galloway MD Age 57 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 Amount - 2 mlHeight: 74 inches Weight: 86.18 kg (190 lbs) BSA: 2.13 m^2 BMI: 24.39 kg/m^2HR: 105 bpm BP: 108/63 mmHg Summary The left ventricle chamber size (by vol index) is severely enlarged (male - LVED vol >100ml/m2). All of the LV segments areseverely hypokinetic . LVEF by Perez's method of disk assessment is severely reduced (20-24%) . Grade 1 diastolic dysfunction impaired relaxation with low-normal LA pressure. Bicuspid AV is present ;fusion of RCC and LCC. Mild aortic stenosis. There is mild aortic regurgitation. Mild mitral regurgit ation. Estimated peak systolic PA pressure is 30-35 mmHg . Signature FindingsLeft Ventricle The left ventricle chamber size (by vol index) is severely enlarged (male - LVED vol>100ml/m2). Normal LV wall thickness. All of the LV segments are severely hypokinetic . LVEF by Perez's method of disk assessment is severely reduced (20-24%) . Grade 1 diastolic dysfunction impaired relaxation with low-normal LA pressure. Left Atrium LA size is normal (16-34 ml/m2) . Right Ventricle Normal RV size and systolic function. Right Atrium RA size is normal. Aortic Valve Mild AoV cusp thickening. Bicuspid AV is present ; fusion of RCC and LCC Mild aortic stenosis. There is mild aortic regurgitation. Mitral Valve Mild mitral regurgitation. Normal MV structure. Tricuspid Valve TV structure is normal. A trace of tricuspid regurgitation. Estimated peak systolic PA pressure is 30-35 mmHg . Pulmonic Valve PV is not well visualized; function appears normal by Doppler visualized. Pericardium No pericardial effusion is visualized. IVC/SVC/PA/PV/Pleural The estimated RA pressure by IVC dynamics 0- 5mmHg .Chambers/Structures Left Atrium LA Volume: 59.15 ml LA Area: 18.01 cm^2 LA Vol. Index: 28 ml/m^2 Left Ventricle LVIDd: 6.84 cm LVEDV:242.37 ml LV Septum Diastolic: 0.73 cm LV PW Diastolic: 0.96 cm LVEDV Perez's:259.36 ml LVESV Perez's:196.24 ml LVEF Perez's: 24.3 % LVEDVI: 122 ml/m^2 LVESVI: 92 ml/m^2 LVOT Diameter: 2.21 cm Right Ventricle RVOT VTI: 10.53 cmAorta Ao Root S of Va l.: 3.86 cmDoppler/Quantitative Measurements Mitral Valve MV Peak E-Wave: 0.68 m/s MV Peak A-Wave: 1.42 m/s P1/2t: 62.9 msec E/A Ratio: 0.47 Peak Gradient: 1.83 mmHg Deceleration Time: 217 msec MV Area (PHT): 3.5 cm^2 MV Nichelle. Peak: Aortic Valve Peak Velocity: 2.16 m/s Mean Velocity: 1.52 m/s Peak Gradient: 18.62 mmHg Mean Gradient: 10.4 mmHg AV Area (continuity): 1.84 cm^2 AV VTI: 37.21 cm AR P1/2t:497.6 msec Deceleration Time: 1716 msec AV DVI: 0.48 LVOT Peak Velocity: 0.99 m/s Peak Gradient: 4.01 mmHg Mean Velocity: 0.68 m/s Mean Gradient: 2.18 mmHg LVOT Diameter: 2.21 cm LVOT VTI: 17.84 cm LVOT Area: 3.84 cm^2 LVOT SV:68.4 ml LVOT CO: 7.18 l/min LVOT CI: 3.37 l/min/m^2 Tricuspid Valve TR Velocity: 2.64 m/s TR Gradient: 27.81 mmHg Pulmonic Valve Peak Velocity: 0.87 m/s Peak Gradient: 2.99 mmHgCHI Mills-Peninsula Medical CenterCREATININE, RANDOM [id number] 15:40:38 Test Item Value Reference Range Interpretation Comments CREATININE URINE (BEAKER) (test 84.2 mg/dL code = 375) Reference Range: No NormalsOperator ID - BSSODIUM, RANDOM [id number] 15:40:38 Test Item Value Reference Range Interpretation Comments SODIUM URINE (BEAKER) (test code = 38 meq/L 243) Reference Range: No NormalsOperator ID - BSUS renal [id number] 15:30:19 Renal ultrasound Clinical History: Acute kidney injury, nephrostomy Comparison: Outside CT abdomen/pelvis from 08/01/2023 Findings:Sonographic evaluation of the kidneys is performed. The right kidney is normal in size measuring 9.5 x 4.6 x 5.2 cm withcortical thickness of 1.0 cm. Partially visualized nephrostomy catheternoted in place. Cortical echogenicity is within normal limits. There isno evidence for solid renal mass, hydronephrosis, or shadowing calculi. The left kidney is normal in size measuring 11.1 x 5.9 x 5.1 cm withcortical thickness of 1.4 cm. Partially visualized nephrostomy catheternoted in place. Cortical echogenicity is within normal limits. There ismild pelvocaliectasis without true intrarenal hydronephrosis. There isno evidence for solid renal mass, hydronephrosis, or shadowingcalculi. Echogenic material noted within the lumen of the partially distendedurinary bladder.[facility] HospitalUS RENAL [id number] 15:30:19 [facility] : 1965 Sex: MRenal ultr [...] By: Carlyle Schmidt MD08/02/2023 15:32 CDTWorkstation Name: [id number] URINALYSIS W/ REFLEX URINE [id number] 11:49:53 Test Item Value Reference Range Interpretation [...] = 1584) SOURCE(BEAKER) (test code = 2795) Living Coach ID - [auto]Living Coach ID - [id number] 11:04:47 Test Item Value Reference Range Interpretation Comments PARTIAL THROMBOPLASTIN TIME 26.5 seconds 22.5-36.0 (BEAKER) (test code = 760) PROTHROMBIN TIME/[id number] 11:04:09 Test Item Value Reference Range Interpretation [...] G3b Moderately to s everely 30-44 G4 Sever ly decreased 15-29 G5 Kidney failure <15Repo rted eGFR is based on the CKD-EPI 2020 equation t hat does not use a race coefficientEsti mated GFR is not as accur ate as Creatinine Renetta bauer in predicting glom erular filtration rate . Estimated GFR is not appl icable for dialysis patien ts Living Coach ID - BSLACTIC ACID, [id number] 10:31:02 Test Item Value Reference Range Interpretation Comments LACTATE BLOOD VENOUS 1.19 mmol/L 0.50-2.00 Specime n slightly (2) (BEAKER) (test hemolyzed code = 2872) Living Coach ID - BSCBC W/PLT COUNT & AUTO [id number] 10:30:42 Test Item Value Reference Range Interpretation [...] (BEAKER) (test code = 2801) BLOOD GAS, [id number] 10:28:09 Test Item Value Reference Range Interpretation [...] 21.0 XR CHEST 1 VIEW PORTABLE / [id number] 09:55:14 [facility] : 1965 Sex: MCLINICAL HISTORY: FeverTECHNIQUE: 1 view of the chestCOMPARISON: NoneIMPRESSION:A right chest wall port terminates at the cavoatrial junction. There areno focal infiltrates or pleural effusions. The cardiomediastinalsilhouette is within normal limits for size. The visualized bones areintact.Electronically Signed By: Chencho Robetrson08/02/2023 09:57 CDTWorkstation Name: [id number] chest 1 view portable / [id number] 09:55:14CLINICAL HISTORY: Fever TECHNIQUE: 1 view of the chest COMPARISON: [facility] [id number] 19:36:00 Test Item Value Reference Range Interpretation Comments POC glucose (test code 109 mg/dL 65-99 H Opera tor Name: = 21246-6) [facility] ID : [id number] able: No Action Neede d Lab Interpretation Abnormal (test code = 73485-3) [facility]2023-09-16 19:36:00 Test Item Value Reference Range Interpretation Comments POC glucose (test code 109 mg/dL 65-99 H Opera tor Name: = 07011-0) [facility] ID : [id number] able: No Action Neede d Lab Interpretation Abnormal (test code = 47749-6) [facility] RBC, 1 [id number] 21:41:00 Test Item Value Reference Range Interpretation Comments Product name (test code Red Cells AS1 Leukored = 25) Irrad Unit number (test code [id number] = [id number]) Product code (test code S8876T42 = 3092) Dispense status (test Transfused code = 24) Blood expiration date (test code = 302) Blood type code (test 600 code = 308) Blood type (test code = A NEGATIVE 1314) Compatibility (test Compatible code = 6400) ZAID (test code = ZAID) [facility] RBC, 1 [id number] 21:41:00 Test Item Value Reference Range Interpretation Comments Product name (test code Red Cells AS1 Leukored = 25) Irrad Unit number (test code [id number] = [id number]) Product code (test code Y4047Q75 = 3092) Dispense status (test Transfused code = 24) Blood expiration date (test code = 302) Blood type code (test 600 code = 308) Blood type (test code = A NEGATIVE 1314) Compatibility (test Compatible code = 6400) ZAID (test code = ZAID) [facility] [id number] 21:41:00 Test Item Value Reference Range Interpretation Comments Product name (test code Red Cells AS1 Leukored = 25) Irrad Unit number (test code [id number] = 6597029) Product code (test code X0776R55 = 3092) Dispense status (test Transfused code = 24) Blood expiration date (test code = 302) Blood type code (test 600 code = 308) Blood type (test code = A NEGATIVE 1314) Compatibility (test Compatible code = 6400) ZAID (test code = ZAID) [facility] [id number] 19:44:00 Test Item Value Reference Range Interpretation Comments Urine culture Mixed dory Specimen isolate (test 10-4 col/cc InformationSpe cimen code = 18886-3) [facility] Clean cat [facility] [id number] 19:44:00 Test Item Value Reference Range Interpretation Comments Urine culture Mixed dory Specimen isolate (test 10-4 col/cc InformationSpe cimen code = 60974-7) Source: [facility] Site: Clean [facility] 12 [id number] 12:18:47 Test Item Value Reference Range Interpretation Comments Ventricular rate (test 102 code = 253) Atrial rate (test code 102 = 255) MS interval (test code 164 = 266) QRSD [...] for LVH, may be normal variant ( [place] product )-Septal infarct , age undetermined-Abnormal ECG-In automated comparison with ECG of 22-MAR-2023 16:26,-premature ventricular complexes are no longer present-T wave inversion more evident in Lateral leads- [facility] 12 [id number] 12:18:47 Test Item Value Reference Range Interpretation Comments Ventricular rate (test 102 code = 253) Atrial rate (test code 102 = 255) MS interval (test code 164 = 266) QRSD [...] may be normal variant ( [place] product )-Septal infarct , age undetermined-Abnormal ECG-In automated comparison with ECG of 22-MAR-2023 16:26,-premature ventricular complexes are no longer present-T wave inversion more evident in Lateral leads- [facility] ED Preliminary Interpretation - Not an [id number] 02:43:49 Test Item Value Reference Range Interpretation Comments ZAID (test code = ZAID) Gume Singh MD 07/04/2023 8:22 [facility] Preliminary Interpretation - Not an Order Performed by: Libertad Mccarthy NPAuthorized by: Gume Singh MD ECG reviewed by ED Physician in the absence of a machine or machinery mechanic: yes Previous ECG: Previous ECG: Compared to current Comparison ECG info: 03/22/23Interpretation: Interpretation: abnormal Rate: ECG rate: 102 ECG rate assessment: tachycardic Rhythm: Rhythm: sinus tachycardia T waves: T waves: inverted Lab Interpretation Abnormal (test code = 16231-2) [facility] ED Preliminary Interpretation - Not an [id number] 02:43:49 Test Item Value Reference Range Interpretation Comments ZAID (test code = ZAID) Gume Singh MD 07/04/2023 8:22 [facility] Preliminary Interpretation - Not an Order Performed by: Libertad Mccarthy, NPAuthorized by: Gume Singh MD ECG reviewed by ED Physician in the absence of a machine or machinery mechanic: yes Previous ECG: Previous ECG: Compared to current Comparison ECG info: 03/22/23Interpretation: Interpretation: abnormal Rate: ECG rate: 102 ECG rate assessment: tachycardic Rhythm: Rhythm: sinus tachycardia T waves: T waves: inverted Lab Interpretation Abnormal (test code = 84569-7) [facility] [id number] 03:57:00 Test Item Value Reference Range Interpretation Comments ALBUMIN (test code = ALB) 1.8 G/DL 3.4-5.0 L PHOSPHOROUS (test code = PHOS) 2.9 MG/DL 2.5-4.9 N [id number] 03:57:00 Test Item Value Reference Range Interpretation Comments MAGNESIUM (test code = MAG) 1.8 MG/DL 1.8-2.4 N BASIC METABOLIC [id number] 03:57:00 Test Item Value Reference Range Interpretation [...] recommended for shayy for GFRby the N [facility] Foundati on for Adults.The GFR will not calculate i f the sex is unknown or if thepatient's ag e is <18 years. CREATININE (test 3.3 MG/DL 0.8-1.3 H code = CREAT) CALCIUM (test code 8.0 MG/DL 8.5-10.1 L = CA) CBC W/AUTO [id number] 03:46:00 Test Item Value Reference Range Interpretation [...] NO DIFF/SCN CRITERIA = MDIFF) CBC W/AUTO [id number] 12:51:00 Test Item Value Reference Range Interpretation [...] NT WITH AUTO DIFFERENTI AL. BASIC METABOLIC [id number] 12:26:00 Test Item Value Reference Range Interpretation [...] code 9.0 MG/DL 8.5-10.1 N = CA) UR SODIUM [id number] 10:41:00 Test Item Value Reference Range Interpretation Comments UR SODIUM RANDOM 55 MEQ/L The Referen ce Range and (test code = JACQUE) Method Per formance specificationsh ave not been established for this fluid. The test result should be correlated into the clinical context forinte rpretation. Urine Specimen Type: Catheter (Other)URINALYSIS [id number] 10:41:00 Test Item Value Reference Range Interpretation [...] LEUU) Urine Specimen Type: Catheter (Other)UR SODIUM [id number] 10:41:00 Test Item Value Reference Range Interpretation [...] . Urine Specimen Type: Catheter (Other)UR CREATININE [id number] 10:41:00 Test Item Value Reference Range Interpretation Comments UR CREATININE RANDOM (test code = 89.8 MG/DL 30-125 N CREATU) Urine Specimen Type: Catheter (Other)- US OTHER DX US [id number] 16:25:00[facility] 1965 Sex: M Name: GENO PANDA [facility] : 1965 Age/S: 57 / M [id number] [place] Unit #: [id number] Loc: [place] [address] Phys: Michel Rdz MD Acct: [id number] Dis Date: Status: ADM IN PHONE #: [phone] Exam Date: 06/14/2023 7750 FAX #: Reason: RIGHT NEPHROSTOMY DUSTIN PLACEMENT EXAMS: CPT: [id number] US OTHER DX US PROCEDURE 97107 EXAMINATION: 1. RIGHT SIDED PERCUTANEOUS NEPHROSTOMY PLACEMENT [...] was obtained. Prior to beginning the procedure, Parrott Protocol was used to confirm the patient's identity and planned procedure. Maximum sterile barriers including cap, mask, hand hygiene, sterile gloves, sterile gown, large sterile drape and cutaneous antisepsis were used. Left nephrostomy exchange: The skin surrounding the existing left nephrostomy catheter was sterilely prepped and draped. Under fluoroscopic guidance the catheter was exchanged over wire for a new 10 Sudanese nephrostomy catheter with appropriate tip positioning in the renal pelvis documented by fluoroscopy following the injection of a small amount of contrast. There was no significant encrustation of the removed catheter. The new catheter was secured in place with a single 2-0 Prolene stitch. The catheter was connectedto a drainage bag and a sterile dressing was applied. Antegrade nephrostogram demonstrated mild to mo derate dilation of the ureter. New right nephrostomy tube placement: Initial ultrasound imaging was performed to localize the kidney and identify a possible calyx for initial access. The overlying skinwas sterilely prepped, draped, and infiltrated with lidocaine. PAGE 1 Signed Report (CONTINUED) Name: GENO PRASAD : 1965 Age/S: 57 / M [id number] [facility] [place] Unit #: [id number] Loc: [place] [address] Phys: Michel Rdz MD Acct: [id number] Dis Date: Status: ADM IN PHONE #: [phone] Exam Date: 06/14/2023 1533 FAX #: Reason: RIGHT NEPHROSTOMY DUSTIN PLACEMENT EXAMS: CPT: [id number] US OTHER DX US PROCEDURE 85055 (Continued) A 21-gauge micropuncture needle was then used to acc ess the lower pole calyx of the right kidney with appropriate needle tip positioning documented by ultrasound and fluoroscopy. Contrast injection demonstrated appropriate positioning. A guidewire was passed into the collecting system before dilating the tract to 8 Sudanese. A 8 Sudanese nephrostomy drainage catheter was then advanced over [...] Inpatient unit. FINDINGS: Images from the procedure revealedmoderate right-sided hydronephrosis. The urine appeared as slightly blood-tinged on the right and yellow on the left. IMPRESSION: Successful right-sided percutaneous nephrostomy placement and left-sided nephrostomy tube exchange. PLAN: The tubes should be flushed with saline 5 mL normal saline twice a day. at 1625 Reported and signed by: Seymour Sales M.D. CC: Michel Rdz MD; Seymour Sales MD Technologist: Effie Deleon Trnscb Date/Time: (1625) SilviaRSS5 PAGE 2 Signed Report Name: GENO PRASAD [facility] : 1965 Age/S: 57 / M [id number] Unit #: [id number] Loc: [place] [address] Phys: Michel Rdz MD Acct: [id number] Dis Date: Status: ADM IN PHONE #: [phone] Exam Date: 06/14/2023 1533 FAX #: Reason: RIGHT NEPHROSTOMY DUSTIN PLACEMENT EXAMS: CPT: [id number] US OTHER DX US PROCEDURE 10059 (Continued) Orig Print D/T: S: 06/14/2023 (6817) Probe: PAGE 3 Signed Report- SP PLCMT NEPH [id number] 16:25:00 [facility] 1965 Sex: M Name: GENO PANDA [facility] : 1965 Age/S: 57 / M [address] Unit #: [id number] Loc:[place] [address] Phys: Michel Rdz MD Acct: [id number] Dis Date: Status: ADM IN PHONE #: [phone] Exam Date: 06/14/2023 1530 FAX #: Reason: RENAL HYDRON EXAMS: CPT: [id number] SP PLCMT NEPH CATH 90356 Fluoro Time: 291 DAP (Gy m2): Air [...] was obtained. Prior to beginning the procedure, Parrott Protocol was used to confirm the patient's identity and planned procedure. Maximum sterile barriers including cap, mask, hand hygiene, sterile gloves, sterile gown, large sterile drape and cutaneous antisepsis were used. Left nephrostomy exchange: The skin surrounding the existing left nephrostomy catheter was sterilely prepped and draped. Under fluoroscopic guidance the catheter was exchanged over wire for a new 10 Sudanese nephrostomy catheter with appropriate tip positioning in [...] and infiltrated with lidocaine. PAGE 1 Signed R eport (CONTINUED) Name: GENO PRASAD [place] : 1965 Age/S: 57 / M [address] #: [id number] Loc: [place] [address] Phys: Michel Rdz MD Acct: [id number] Dis Date: Status: ADM IN PHONE #: [phone] Exam Date: 06/14/2023 1530 FAX #: Reason: RENAL HYDRON EXAMS: CPT: [id number] [place] [facility] [place] NEPH CATH 82735 Fluoro Time: 291 DAP (Gy m2): Air Kerma (mGy): (Continued) A 21-gauge micropuncture needle was then used to access the lower pole calyx of the right kidney with appropriate needle tip positioning documented by ultrasound and fluoroscopy. Contrast injection demonstrated appropriate positioning. A guidewire was passed into the collecting system before dilating the tract to 8 Sudanese. A 8 Sudanese nephrostomy drainage catheter was then advanced over the guidewire, formed, and secured in place with a 2-0 Prolene suture. The pigtail the drainage catheter was formed withinthe renal pelvis. Contrast injection showed moderate distention [...] IMPRESSION: Successful right-sided percutaneous nephrostomy placement and left- sided nephrostomy tube exchange. PLAN: The tubes should be flushed with saline 5 mL normal saline twice a day. at 1056 Reported and signed by: Seymour Sales M.D. CC: Michel Rdz MD; Seymour Sales MD PAGE 2 Signed Report Name: GENO PRASAD [facility] : 1965 Age/S: 57 / M [address] Unit #: [id number] Loc: [place] [address] Phys: Michel Rdz MD Acct: [id number] Dis Date: Status: ADM IN PHONE #: [phone] Exam Date: 06/14/2023 1530 FAX #: Reason: RENAL HYDRON EXAMS: CPT: [id number] [facility] [place] NEPH CATH 99964 Fluoro Time: 291 DAP (Gy m2): Air Kerma (mGy): (Continued) Technologist: FELISA MUÑOZ Trnscb Date/Time: 06/14/2023 (1625) [id number] Orig Print D/T: S: 06/14/2023 (9141) PAGE 3 Signed Report- SP NEPH CATH [id number] 16:25:00 [facility] 1965 Sex: M Name: GENO PANDA [facility] : 1965 Age/S: 57 / M [address] Unit #: [id number] Loc: [place] [address] Phys: Michel Rdz MD Acct: [id number] Dis Date: Status: ADM IN PHONE #: [phone] Exam Date: 06/14/2023 1457 FAX #: Reason: RENAL HYDRON EXAMS: CPT: [id number] [facility] NEPH CATH EXCHANGE 43054 Fluoro Time: 33 DAP (Gy m2): Air [...] was obtained. Prior to beginning the procedure, Parrott Protocol was used to confirm the patient's identity and planned procedure. Maximum sterile barriers including cap,mask, hand hygiene, sterile gloves, sterile gown, large sterile drape and cutaneous antisepsis were used. Left nephrostomy exchange: The skin surrounding the existing left nephrostomy catheter was sterilely prepped and draped. Under fluoroscopic guidance the catheter was exchanged over wire for a new10 Sudanese nephrostomy catheter with appropriate tip positioning in [...] 1 Signed Report (CONTINUED) Name: GENO PRASAD [place] : 1965 Age/S: 57 / M [address] [facility] Unit #: [id number] Loc: [place] [address] Phys: Michel Rdz MD Acct: [id number] Dis Date: Status: ADM IN PHONE #: [phone] Exam Date: 06/14/2023 1941 FAX #: Reason: RENAL HYDRON EXAMS: CPT: [id number] [facility] NEPH CATH EXCHANGE 07647 Fluoro Time: 33 DAP (Gy m2): Air Kerma (mGy): (Continued) B50-[id number] micropuncture needle was then used to access the lower pole calyx of the right kidney with appropriate needle tip positioning documented by ultrasound and fluoroscopy. Contrast injection demonstrated appropriate positioning. A guidewire was passed into the collecting system before dilating the tract to 8 Sudanese. A 8 Sudanese nephrostomy drainage catheter was then advanced over [...] mL normal saline twice a day. at 1622 Reported and signed by: Seymour Sales M.D. CC: Michel Rdz MD; Seymour Jesus PAGE 2 Signed Report Name: GENO PRASAD [place] : 1965 Age/S: 57 / M [address] Unit #: [id number] Loc: [place] [address] Phys: Michel Rdz MD Acct: [id number] Dis Date: Status: ADM IN PHONE #: [phone] Exam Date: 06/14/2023 7311 FAX #: Reason: RENAL HYDRON EXAMS: CPT: [id number] SP NEPH CATH EXCHANGE 53972 Fluoro Time: 33 DAP (Gy m2): Air Kerma (mGy): (Continued) Technologist: FELISA MUÑOZ Trnscb Date/Time: 06/14/2023 (2404) [id number] Orig Print D/T: S: 06/14/2023 (2970) PAGE 3 Signed ReportCBC W/AUTO [id number] 06:01:00 Test Item Value Reference Range Interpretation [...] CONSISTA NT WITH AUTO DIFFERENTI AL. RBC [id number] 06:01:00 Test Item Value Reference Range Interpretation [...] LARGE PLATELET code = PLTMORPH) BASIC METABOLIC [id number] 04:05:00 Test Item Value Reference Range Interpretation [...] the recommended for shayy for GFRby the [facility] for Adults.The GFR will not calculate i f the sex is unknown or if thepatient's ag e is <18 years. CREATININE (test 3.7 MG/DL 0.8-1.3 H code = CREAT) CALCIUM (test code 8.7 MG/DL 8.5-10.1 N = CA) PROTHROMBIN [id number] 14:51:00 Test Item Value Reference Range Interpretation [...] (to prevent recurrent infar ct). CBC W/AUTO [id number] 13:51:00 Test Item Value Reference Range Interpretation [...] CONSISTA NT WITH AUTO DIFFERENTI AL. PROTHROMBIN [id number] 12:14:00 Test Item Value Reference Range Interpretation [...] (to prevent recurrent infar ct). THROMBOPLASTIN TIME [id number] 12:14:00 Test Item Value Reference Range Interpretation Comments THROMBOPLASTIN TIME PARTIAL 31.9 SECONDS 26-35 N (test code = PTT) BASIC METABOLIC [id number] 11:51:00 Test Item Value Reference Range Interpretation [...] the recommended for shayy for GFRby the [facility] on for Adults.The GFR will not calculate i f the sex is unknown or if thepatient's ag e is <18 years. CREATININE (test 3.6 MG/DL 0.8-1.3 H code = CREAT) CALCIUM (test code 8.5 MG/DL 8.5-10.1 N = CA) HEPATIC FUNCTION [id number] 11:51:00 Test Item Value Reference Range Interpretation [...] 50-136 N code = ALKP) CBC W/O [id number] 11:07:00 Test Item Value Reference Range Interpretation [...] 8.80 fL 7.0-9.6 N MPV) BASIC METABOLIC [id number] 08:24:00 Test Item Value Reference Range Interpretation [...] the recommended for shayy for GFRby the [facility] on for Adults.The GFR will not calculate i f the sex is unknown or if thepatient's ag e is <18 years. CREATININE (test 3.6 MG/DL 0.8-1.3 H code = CREAT) CALCIUM (test code 8.7 MG/DL 8.5-10.1 N = CA) PROTHROMBIN [id number] 08:19:00 Test Item Value Reference Range Interpretation [...] infar ct). - CT ABD PELVIS W/O [id number] 16:44:00 [facility] : 1965 Sex: M Name: GENO PANDA : 1965 Age/S: 57 / M [address] Unit #: [id number] Loc:[place] [address] Phys: Lalo Ruiz MD Acct: [id number] Dis Date: Status: REG CLI PHONE #: [phone] Exam Date: 04/13/2023 1506 FAX #: Reason: HYDRONEPHROSIS DUE TO OBSTRUTION OF URETER EXAMS: CPT: [id number] CT ABD PELVIS W/O CONT 29424 EXAMINATION: - CT ABD PELVIS W/O CONT. [...] FINDINGS: Lower chest: Small nodules are seen inthe right lower lobe measuring up to 6 mm (axial image 7), increased in number since prior exam. 4 m m left lower lobe nodule is new (axial [...] measuring up to 2.1 cm in short axis(axial image 38), new since prior exam. Mildly enlarged bilateral internal iliac lymph nodes are also noted. Urinary bladder wall thickening is seen with adjacent edema. Mild presacral edema is also present. Left lower quadrant colostomy is present with herniation of several small bowel loops through the stoma. Right lower quadrant colostomy is also present. There is no evidence of bowel obstruction.There is no pneumoperitoneum. Mild degenerative changes are seen in the spine. No acute osseous PAGE1 Signed Report (CONTINUED) Name: GENO PRASAD : 1965 Age/S: 57 / M [address] Unit #: [id number] Loc: [place] [address] Phys: Lalo Ruiz MD Acct: [id number] Dis Date: Status: REG CLI PHONE #: [phone] Exam Date: 04/13/2023 1501 FAX #: Reason: HYDRONEPHROSIS DUE TO OBSTRUTION OF URETER EXAMS: CPT: [id number] CT ABD PELVIS W/O CONT 76478 (Continued) abnormality is identified. No aggressive lytic [...] Erin CTDI: DLP: Trnscb Date/Time: 04/13/2023 (1644) SilviaPR7 Orig Print D/T: S: 04/13/2023 (1889) PAGE 2 Signed ReportB[facility] [id number] 14:05:23Justa Winter RN 03/28/2023 9:06 AMPICC insertion Date/Time: 03/28/2023 9:05 AM Performed by: Justa Winter, RNAuthorized by: Ky Sibley Consent: Consent obtained: Verbal Consent given by: Patient Risks discussed: Incorrect placement, arterial puncture, nerve damage, pneumothorax, infection, bleeding, superficial thrombus and deep vein thrombus Alternatives discussed: Observation and referralUniversal protocol: Procedure explained and questions answered to patient or proxy's satisfaction: yes Relevant documents present and verified: yes Test results available and properly labeled: yes Imaging studies available: yes Required blood products, implants, devices, and special equipment available: yes Site/side marked: yes Immediately prior to procedure, a time out was called: yes Patient identity confirmed: Verbally with patient, arm band and hospital-assigned identification numberPre-procedure details: Hand hygiene: Hand hygiene performed prior to insertion Sterile barrier technique:All elements of maximal sterile technique followed Skin preparation: 2% chlorhexidine and ChloraPrepSkin preparation agent: Completely dried prior to procedure Anesthesia (see MAR for exact dosages): Anesthesia method: Local infiltration Local anesthetic: Lidocaine 1% w/o epi Route administered: SubcutaneousPICC Line Placement Details: Extremity Circumference Site: 35 Patient position: Flat Vessel Size (mm): 4 Indication: Known [facility] IV therapy Location: Left brachial Device Type: Non-valved Cat heter Lumens: Double lumen Catheter size: 4 Fr Catheter to vein ratio: 30PICC Characteristics: Catheter Brand: BD External Catheter Length (cm): 1 Internal Catheter Length (cm): 48 Total Catheter Length (cm): 49 Catheter Lot Number: [id number] Catheter Expiration Date: 4Procedure details: Ultrasound guidance: yes Sterile ultrasound techniques: Sterile gel and sterile probe covers were used Number of attempts: 1 Number of PICC kits used during procedure: 1 Extra guide wire required?: No Purpose of procedure: PICC Placement Successful PICC Placement: yes Patency/Placement: Flushes without difficulty, positive blood return, ultrasound placement verified and flushed with 10 mL normal saline Dressing/Securement: Dressing dry and intact, transparent semipermeable dressing in place, antimicrobial dressing applied and catheter securement device Blood Loss Amount: Less than 20 mL Number of guidewires used: 1 Number of guidewires removed: 1 Verifying Provider: Justa Winter RNPost- procedure details: Post-procedure: Dressing applied Patient tolerance of procedure: Tolerated well, no immediate complicationsComments: Time out completed with Jincy RN present. PICC tip location verified by 3CG technology. The patient was given verbal and written education regarding line placement and care and verbalized understanding. No bleeding noted post dressing application, curos caps placed, RN given report.Prepare RBC, 2 [id number] 16:16:00 Test Item Value Reference Range Interpretation Comments Product name (test code Red Cells AS1 Leukored = 25) Irrad Unit number (test code [id number] = [id number]) Product code (test code G5643M24 = 3092) Dispense status (test Transfused code = 24) Blood expiration date (test code = 302) Blood type code (test 6200 code = 308) Blood type (test code = A POSITIVE 1314) Compatibility (test Compatible code = 6400) [facility] [id number] 16:16:00 Test Item Value Reference Range Interpretation Comments Product name (test code Red Cells AS1 Leukored = 25) Irrad Unit number (test code [id number] = [id number]) Product code (test code C9633Z12 = 3092) Dispense status (test Transfused code = 24) Blood expiration date (test code = 302) Blood type code (test 6200 code = 308) Blood type (test code = A POSITIVE 1314) Compatibility (test Compatible code = 6400) [facility], 2 [id number] 16:16:00 Test Item Value Reference Range Interpretation Comments Product name (test code Red Cells AS1 Leukored = 25) Irrad Unit number (test code [id number] = [id number]) Product code (test code X9793R11 = 3092) Dispense status (test Transfused code = 24) Blood expiration date (test code = 302) Blood type code (test 6200 code = 308) Blood type (test code = A POSITIVE 1314) Compatibility (test Compatible code = 6400) [facility], 2 [id number] 16:16:00 Test Item Value Reference Range Interpretation Comments Product name (test code Red Cells AS1 Leukored = 25) Irrad Unit number (test code [id number] = [id number]) Product code (test code L5991O73 = 3092) Dispense status (test Transfused code = 24) Blood expiration date (test code = 302) Blood type code (test 6200 code = 308) Blood type (test code = A POSITIVE 1314) Compatibility (test Compatible code = 6400) [facility] RBC, 2 [id number] 16:16:00 Test Item Value Reference Range Interpretation Comments Product name (test code Red Cells AS1 Leukored = 25) Irrad Unit number (test code [id number] = [id number]) Product code (test code V6240Q72 = 3092) Dispense status (test Transfused code = 24) Blood expiration date (test code = 302) Blood type code (test 6200 code = 308) Blood type (test code = A POSITIVE 1314) Compatibility (test Compatible code = 6400) [facility] RBC, 2 [id number] 16:16:00 Test Item Value Reference Range Interpretation Comments Product name (test code Red Cells AS1 Leukored = 25) Irrad Unit number (test code [id number] = [id number]) Product code (test code D0921U78 = 3092) Dispense status (test Transfused code = 24) Blood expiration date (test code = 302) Blood type code (test 6200 code = 308) Blood type (test code = A POSITIVE 1314) Compatibility (test Compatible code = 6400) [facility] RBC, 2 [id number] 16:16:00 Test Item Value Reference Range Interpretation Comments Product name (test code Red Cells AS1 Leukored = 25) Irrad Unit number (test code [id number] = [id number]) Product code (test code B7127B84 = 3092) Dispense status (test Transfused code = 24) Blood expiration date (test code = 302) Blood type code (test 6200 code = 308) Blood type (test code = A POSITIVE 1314) Compatibility (test Compatible code = 6400) [facility] 12 [id number] 03:42:02 Test Item Value Reference Range Interpretation Comments Ventricular rate (test 121 code = 253) Atrial rate (test code 121 = 255) MS interval (test code 156 = 266) QRSD [...] for LVH, may be normal variant ( [place] product )-T wave abnormality, consider lateral ischemia-Abnormal ECG-No previous ECGs available-Electronical ly Signed By Bentley Liu MD ([id number]) on 03/22/2023 10:41:[address] [facility] 12 [id number] 03:42:02 Test Item Value Reference Range Interpretation Comments Ventricular rate (test 121 code = 253) Atrial rate (test code 121 = 255) MS interval (test code 156 = 266) QRSD [...] for LVH, may be normal variant ( [place]urn product )-T wave abnormality, consider lateral ischemia-Abnormal ECG-No previous ECGs available-Electronical ly Signed By Bentley Liu MD ([id number]) on 03/22/2023 10:41:[address] [facility] 12 [id number] 03:42:02 Test Item Value Reference Range Interpretation Comments Ventricular rate (test 121 code = 253) Atrial rate (test code 121 = 255) MS interval (test code 156 = 266) QRSD [...] available-Electronical ly Signed By Bentley Liu MD ([id number]) on 03/22/2023 10:41:52 PM [address]2023-06-08 03:42:02 Test Item Value Reference Range Interpretation Comments Ventricular rate (test 121 code = 253) Atrial rate (test code 121 = 255) MS interval (test code 156 = 266) QRSD [...] available-Electronical ly Signed By Bentley Liu MD ([id number]) on 03/22/2023 10:41:52 PM [address]2023-06-08 03:42:02 Test Item Value Reference Range Interpretation Comments Ventricular rate (test 121 code = 253) Atrial rate (test code 121 = 255) MS interval (test code 156 = 266) QRSD [...] for LVH, may be normal variant ( [place]urn product )-T wave abnormality, consider lateral ischemia-Abnormal ECG-No previous ECGs available-Electronical ly Signed By Bentley Liu MD ([id number]) on 03/22/2023 10:41:52 PM [address]2023-06-08 03:42:02 Test Item Value Reference Range Interpretation Comments Ventricular rate (test 121 code = 253) Atrial rate (test code 121 = 255) MS interval (test code 156 = 266) QRSD [...] for LVH, may be normal variant ( [place]urn product )-T wave abnormality, consider lateral ischemia-Abnormal ECG-No previous ECGs available-Electronical ly Signed By Bentley Liu MD ([id number]) on 03/22/2023 10:41:[address] [facility] 12 [id number] 03:42:02 Test Item Value Reference Range Interpretation Comments Ventricular rate (test 121 code = 253) Atrial rate (test code 121 = 255) MS interval (test code 156 = 266) QRSD [...] available-Electronical ly Signed By Bentley Liu MD ([id number]) on 03/22/2023 10:41:52 PM [facility] Abdomen Pelvis Wo [id number] 22:43:41EXAMINATION: CT ABDOMEN PELVIS WO CONTRAST CLINICAL HISTORY: 57 years Male abdominal discomfort h o colon cancer s p resection 202 with colostomy nephrostomy (Cr 1.7 no contrast) COMPARISON: CT abdomenpelvis 10/25/2022. MRI pelvis 10/26/2022. TECHNIQUE: CT of the abdomen and pelvis without intravenous contrast. Sagittal and coronal computerized reformatted images were also obtained. Absence of intravenous contrast decreases sensitivity for detection of focal lesions and vascular pathology. CT imagingwas performed with iterative reconstruction techniques and/or automated exposure control to reduce radiation dose. FINDINGS: LOWER THORAX: Mild bibasilar atelectasis. The left ventricular wall has greater attenuation than blood pool, findings may be seen with anemia. LIVER: Diffuse hepatic steatosis. No focal hepatic lesions. GALLBLADDER AND BILIARY TREE: Gallbladder within normal limits. No biliary ductal dilation. SPLEEN: No splenomegaly. PANCREAS: No focal masses or ductal dilation. ADRENALS: No adrenal nodules. KIDNEYS: Status post left nephrostomy with interval improvement in the dilated left collecting system, increased surrounding inflammation. The left kidney is mildly edematous as compared to the right. Moderate right hydroureteronephrosis with interval worsening. No renal or ureteral stone. Left renal cyst measures up to 1.5 cm. GI TRACT:*Right abdominal and left lower quadrant colostomies with associated parastomal hernias, similar to prior.*Ill- defined masslike thickening at the rectosigmoid junction, where presumed upper rectal mass is inseparable from posterior bladder/seminal vesicles, corresponding to invasion on prior MRI.*Ill-defined thickening throughout the rectum.*No bowel obstruction.*The appendix is unremarkable. PERITONEUM/RETROPERITONEUM: Enlargement of para-aortic retroperitoneal and bilateral iliac chain lymph nodes. Largest along the right iliac chain measures upto 2.2 cm (series 3, image 112). Largest right para-aortic lymph node measures up to 2.7 cm (series 3, image 61). No free air or fluid. VASCULATURE: Abdominal aorta is nonaneurysmal. A few scattered atherosclerotic vascular calcifications. PELVIC ORGANS/BLADDER: Diffuse bladder wall thickening. Suspected invasion along the posterior dome of the bladder from the adjacent rectal mass. BONES AND SOFT TISSUES: Mild degenerative changes. No suspicious osseous lesions. = = = = = = = = = = = IMPRESSION: 1.Suspected proctocolitis in the setting of locally advanced rectal cancer with bladder/seminal vesicleinvolvement. 2.S/p left percutaneous nephrostomy for malignant lower urinary tract obstruction. Possible left pyelonephritis. Mild worsening of moderate right hydronephrosis. 3.Worsening of retroperitoneal and pelvic adenopathy since October 2022, could be reactive or progressive metastatic disease. 4.Bilateral parastomal hernias without contrast bowel obstruction. [facility]-[id number] Dictated and approved by residential assistant/fellow: Yunior Celaya M.D. I, TODD ORTEGA MD, personally reviewed the images and resident's/fellow's findings and agree with the final report.[facility] [id number] 20:41:38Clayton Dale MD 03/22/2023 10:51 PMCritical Care Performed by: Clayton Dale MDAuthorized by: Clayton Dale MD Critical care provider statement: Critical care time (minutes): 35 Critical care time was exclusive of: Separately billable procedures and treating other patients and teaching time Critical care was necessary to treat or prevent imminent or life-threatening deterioration of the following conditio ns: Renal failure and dehydration Critical care was time spent personally by me on the following activities: Discussions with primary provider, discussions with consultants, development of treatment plan with patient or surrogate, evaluation of patient's response to treatment, examination of patient, obtaining history from patient or surrogate, ordering and performing treatments and interventions, ordering and review of laboratory studies, ordering and review of radiographic studies, pulse oximetry,re-evaluation of patient's condition and review of old charts Ozzy 'yes' if you are taking over critical care for this patient from another provider.: noPOC VENOUS BLOOD [id number] 21:59:00 Test Item Value Reference Range Interpretation Comments POC VENOUS BLOOD 7.340 pH units 7.26-7.43 N GAS PH (test code = POCPHV) POC VENOUS BLOOD 54.2 mmHg e 35.0-45.0 H GAS PCO2 (test code = IVNGIL7D) POC VENOUS BLOOD 38.8 mmHg e 80.0-100.0 LL GAS PO2 (test code = MFYDE0R) POC TCO2 VENOUS 28.6 MMOL/L e 24.0-30.0 N (test code = DJAISB1X) POC HCO3 VENOUS 29.2 MMOL/L e 22.0-26.0 H (test code = FOCLAJ4I) POC BASE EXCESS 2.7 MMOL/L e See_Comment N [Automated VENOUS (test code = message] The system POCBEV) which generated this result transmitted reference range : -3.0 to 3.0. Th e reference range was not used to interpret this result as normal/abnormal . POC O2 SATURATION 69 % e 95-100 L VENOUS (test code = DXIN3BB) POC SAMPLE SOURCE Venous Descript Specimen (test code = POCSAMPLE) CBC W/AUTO [id number] 10:20:00 Test Item Value Reference Range Interpretation [...] NO DIFF/SCN CRITERIA = MDIFF) BASIC METABOLIC [id number] 10:12:00 Test Item Value Reference Range Interpretation [...] recommended for shayy for [facility]by the [facility] for Ad[facility].The GFR will not calculate i f the sex is unknown or if thepatient's ag e is <18 years. CREATININE (test 1.6 MG/DL 0.8-1.3 H code = CREAT) CALCIUM (test code 9.4 MG/DL 8.5-10.1 N = CA) PROTHROMBIN [id number] 09:00:00 Test Item Value Reference Range Interpretation [...] l Infarction (to prevent recurrent infar ct). IR Nephrostomy Insertion [id number] 00:11:13Performing RadiologistSendasaperumal Alicia May MD AssistantsNone Anesthesia TypeModerate sedation utilizing IV Versed and IV fentanyl was administered by the procedure nurse and monitored by the procedure physician for a total ynny-uw-khtd sedation time 85 minutes. Lidocaine 1% was used for local anesthetic. Pre Procedure DiagnosisRectal cancer invading into the bladder causing bilateral obstructive uropathy Post Procedure Diagnosis 1. Status post antegrade left nephrostogram and placement of a left percutaneous nephrostomy catheter. 2. Status post antegrade right nephrostogram Procedures 1. Antegrade Left nephrostogram 2. Left percutaneous nephrostomy catheter placement 3. Antegrade Right nephrostogram TechniqueWritten informed consent was obtained prior to the procedure. The patient was placedin a prone position on the procedure table. All elements of maximal barrier sterile technique were utilized and the bilateral posterior flanks were sterilely prepared and draped in the routine manner. Lidocaine 1% was used for local anesthetic. Initial sonographic imaging demonstrated very mild hydronephrosis. Under sonographic guidance, a 21-gauge needle was advanced successfully into an inferior calyx of the left kidney. Sonographic image of collecting system puncture was placed in the patient's EMR. Injection of contrast through the needle promptly opacified the renal collecting system. A 0.018 inch guidewire was advanced through the needle and into the renal pelvis under fluoroscopy. The needle was removed, and an AccuStick sheath was advanced over the guidewire and into the renal pelvis. Theinner dilator and guidewire were then removed. Antegrade nephrostogram was performed, confirming renal collecting system placement. Short Amplatz wire was advanced through the AccuStick sheath and intothe renal pelvis, sheath was exchanged for a 10 Sudanese dilator, and a 10 Sudanese percutaneous nephrostomy catheter was then placed. The catheter pigtail was formed within the renal pelvis. Final nephrostogram confirmed pigtail catheter tip within the renal pelvis. This catheter was then sutured to the skin using 2-0 nonabsorbable suture and attached to gravity bag drainage. Sonographic imaging of the right kidney demonstrated no hydronephrosis. However, a suspected inferior pole possible minimally dilated calyx was targeted. Lidocaine 1% was used for local anesthetic Under sonographic guidance, a 21-gauge needle was advanced successfully into the supposedly minimally dilated inferior calyx of the right kidney. Sonographic image of the puncture was placed in the patient's EMR. However, no urine return was noted. Under sonographic guidance, the 21-gauge needle was advanced to target an anterior theright renal pelvis. Sonographic image of collecting system puncture was placed in the patient's EMR.Antegrade nephrostogram was performed, confirming right renal collecting system placement. Note is made of contrast transiting across the ureter and imaging the bladder. Bladder is collapsed by a Foleycatheter. Damon catheter was clamped. More contrast was injected into the renal pelvis to opacify the right upper collecting system to potentially perform a 2 stick technique calyceal access. However, contrast continued to empty into the bladder with time and calyceal puncture access could not be successfully performed despite targeting an inferior pole calyx and a mid zone calyx. Therefore, intendedright nephrostomy tube placement attempt was abandoned. Needle [facility]. [facility] Radiation DoseKa,r = 89 mGy ComplicationsNone Specimens RemovedNone Estimated Blood LossMinimal Blood/Blood Products AdministeredNone Grafts/ImplantsAs described in the above report IMPRESSION: 1. Ultrasound imaging over the left kidney demonstrates moderate very mild hydronephrosis. Using real-time ultrasound guidance, a 22-gauge needle was advanced successfully into a dilated lower calyx of the left kidney. 2. Antegrade left nephrostogram demonstrates very mild hydronephrosis. Furthermore, contrast did not transit the bladder, indicating left ureterovesicular obstruction. 3. Successful placement of an 10-Sudanese left percutaneous nephrostomy drain. 4. Ultrasound imaging over the right kidney demonstrates no hydronephrosis. Using real-time ultrasound guidance, a 22-gauge needle was advanced successfully into the right renal pelvis. 5. Antegrade right nephrostogram confirms no hydronephrosis. Furthermore, contrast into the bladder demonstrating no right ureterovesicular obstruction Case was discussed with Dr. Saha from urology today at 1730. [facility]-[id number] HospitalIR Nephrostogram New Access [id number] 00:11:13Performing RadiologistSjoss May MD AssistantsNone Anesthesia TypeModerate sedation utilizing IV Versed and IV fentanyl was administered by the procedure nurse and monitored by the procedure physician for a total wmvu-ld-nswi sedation time 85 minutes. Lidocaine 1% was used for local anesthetic. Pre Procedure DiagnosisRectal cancer invading into the bladder causing bilateral obstructive uropathy Post Procedure Diagnosis 1. Status post antegrade left nephrostogram and placement of a left percutaneous nephrostomy catheter. 2. Status post antegrade right nephrostogram Procedures 1. Antegrade Left nephrostogram 2. Left percutaneous nephrostomy catheter placement 3. Antegrade Right nephrostogram TechniqueWritten informed consent was obtained prior to the procedure. The patient was placedin a prone position on the procedure table. All elements of maximal barrier sterile technique were utilized and the bilateral posterior flanks were sterilely prepared and draped in the routine manner. Lidocaine 1% was used for local anesthetic. Initial sonographic imaging demonstrated very mild hydronephrosis. Under sonographic guidance, a 21-gauge needle was advanced successfully into an inferior calyx of the left kidney. Sonographic image of collecting system puncture was placed in the patient's EMR. Injection of contrast through the needle promptly opacified the renal collecting system. A 0.018 inch guidewire was advanced through the needle and into the renal pelvis under fluoroscopy. The needle was removed, and an AccuStick sheath was advanced over the guidewire and into the renal pelvis. Theinner dilator and guidewire were then removed. Antegrade nephrostogram was performed, confirming renal collecting system placement. Short Amplatz wire was advanced through the AccuStick sheath and intothe renal pelvis, sheath was exchanged for a 10 Sudanese dilator, and a 10 Sudanese percutaneous nephrostomy catheter was then placed. The catheter pigtail was formed within the renal pelvis. Final nephrostogram confirmed pigtail catheter tip within the renal pelvis. This catheter was then sutured to the skin using 2-0 nonabsorbable suture and attached to gravity bag drainage. Sonographic imaging of the right kidney demonstrated no hydronephrosis. However, a suspected inferior pole possible minimally dilated calyx was targeted. Lidocaine 1% was used for local anesthetic Under sonographic guidance, a 21-gauge needle was advanced successfully into the supposedly minimally dilated inferior calyx of the right kidney. Sonographic image of the puncture was placed in the patient's EMR. However, no urine return was noted. Under sonographic guidance, the 21-gauge needle was advanced to target an anterior theright renal pelvis. Sonographic image of collecting system puncture was placed in the patient's EMR.Antegrade nephrostogram was performed, confirming right renal collecting system placement. Note is made of contrast transiting across the ureter and imaging the bladder. Bladder is collapsed by a Foleycatheter. Damon catheter was clamped. More contrast was injected into the renal pelvis to opacify the right upper collecting system to potentially perform a 2 stick technique calyceal access. However, contrast continued to empty into the bladder with time and calyceal puncture access could not be successfully performed despite targeting an inferior pole calyx and a mid zone calyx. Therefore, intendedright nephrostomy tube placement attempt was abandoned. Needle was removed. Patient was taken to [facility] in a stable state. Radiation DoseKa,r = 89 mGy ComplicationsNone Specimens RemovedNone Estimated Blood LossMinimal Blood/Blood Products AdministeredNone Grafts/ImplantsAs described in the above report IMPRESSION: 1. Ultrasound imaging over the left kidney demonstrates moderate very mild hydronephrosis. Using real-time ultrasound guidance, a 22-gauge needle was advanced successfully into a dilated lower calyx of the left kidney. 2. Antegrade left nephrostogram demonstrates very mild hydronephrosis. Furthermore, contrast did not transit the bladder, indicating left ureterovesicular obstruction. 3. Successful placement of an 10-Sudanese left percutaneous nephrostomy drain. 4. Ultrasound imaging over the right kidney demonstrates no hydronephrosis. Using real-time ultrasound guidance, a 22-gauge needle was advanced successfully into the right renal pelvis. 5. Antegrade right nephrostogram confirms no hydronephrosis. Furthermore, contrast into the bladder demonstrating no right ureterovesicular obstruction Case was discussed with Dr. Saha from urology today at 1730. [facility]-[id number] HospitalMRI Pelvis W Wo [id number] 17:59:55EXAMINATION: MRI PELVIS W WO CONTRAST CLINICAL HISTORY: metastatic rectal cancer COMPARISON: CT August 16, 2022, MRI June 29, 2021 TECHNIQUE: MR of the pelvis with and without intravenous gadolinium. Rectal cancer staging protocol was used including multiplanar high-resolution T2, diffusion-weighted, and dynamic contrast enhanced sequences. FINDINGS: Redemonstration of bulky midupper rectal mass. Significant T2 hyperintense component is again seen consistent with mucinous tumor. The primary intramural portion of the mass appears overall slightly improved since June 2021, however there ismore bulky perirectal infiltration, including anteriorly grossly involving the seminal vesicles and posterior bladder wall. Higher T2 signal lobulated disease in the upper posterior perirectal region abuts the presacral fascia. The mass also encases the very distal ureters near the ureterovesical junction (series 7 image 18). There is atrophy and dilatation of the ureters, greater on the left. More diffuse bladder thickening appears inflammatory. Multiple mildly enlarged pelvic lymph nodes consistent with metastatic disease. Examples: 1 cm short axis left obturator and 1.3 cm right common iliac. Most of these are increased in size. No suspicious osseous lesion. No significant ascites or fluid collection. Diffuse soft tissue edema. IMPRESSION: Mid-upper rectal mass with more bulky T4b disease now with gross bladder and seminal vesicle invasion and obstructing distal ureters/UVJ. Increased bilateral pelvic lymphadenopathy. [id number] Abdomen W Wo Contrast 2022-10-26 17:47:48EXAMINATION: MRI ABDOMEN W WO CONTRAST CLINICAL HISTORY:57 years Male metastatic rectal cancer COMPARISON: CT October 25, 2022, August 16, 2022 TECHNIQUE: Multiplanar, multisequence MRI of the abdomenwith and without intravenous gadolinium. FINDINGS: Liver is normal in size and contour. No hepatic mass. Grossly unremarkable gallbladder and pancreas. No biliary dilatation. Normal spleen. Mild bilateral hydroureteronephrosis is unchanged from October 25, 2022 CT and new since August 16, 2022 CT. Kidneys are normal in size. Mildly enlarged retrocaval lymph node (series 9 image 282) measuring 1.1 cmin short axis, new since August 2022. Other subcentimeter retroperitoneal lymph nodes are stable. No mesenteric lymphadenopathy. Redemonstration of large prolapsing right-sided colostomy. Left colostomy is partly visualized with large parastomal hernia containing small bowel in the left hemiabdomen.No evidence of bowel obstruction. Scattered trace free fluid. No drainable fluid collection. IMPRESSION: 1.Mild bilateral hydroureteronephrosis is new since August 2022, presumably due to distal urete ral malignant obstruction. Please see separate report for MRI pelvis. 2.A pericentimeter retrocaval lymph node is also newly enlarged and suspicious. 3.Bilateral colostomies, with prolapse on the rightand parastomal hernia on the left. [id number] JdngmtbpGKNU-WvL-9 (COVID-19) RNA [Presence] in Respiratory specimen by YVROSE with probe [id number] 11:43:33 Test Item Value Reference Range Interpretation Comments SARS-CoV-2 (COVID-19) RNA Not detected [Presence] in Respiratory specimen by YVROSE with probe detection (test code = 76399-7) Whether patient is employed in a Unknown healthcare setting (test code = 42726-7) Whether the patient has symptoms Unknown related to condition of interest (test code = 88119-8) Whether the patient was Unknown hospitalized for condition of interest (test code = 67730-4) Whether the patient was admitted Unknown to intensive care unit (ICU) for condition of interest (test code = 89717-5) Whether patient resides in a Unknown congregate care setting (test code = 10558-4) status (test code = Unknown 95882-4) Date and time of symptom onset Unknown (test code = 19389-4) [facility] Chest Wo [id number] 00:07:04EXAMINATION:CT CHEST WO CONTRAST CLINICAL HISTORY:metastatic rectal cancer TECHNIQUE:Multiple axial images of the chest were obtained without intravenous contrast. The lack of intravenous contrast reduces the sensitivity of detecting solid organ disease and evaluating vasculature. Sagittal and coronalcomputerized reformatted images were also obtained.Automatic exposure control or iterative reconstruction techniques used to reduce dose. COMPARISON:08/16/2022 outside imaging, 06/30/2021 FINDINGS:1.Right-sided chest port is again terminating at the SVC. Coronary artery calcifications again seen. Left atrial enlargement is again noted. Small nonspecific mediastinal nodes measuring less than 1 cm in short axis. No significant pleural or pericardial effusion. 2.Scattered subpleural patchy irregular opacities at lung bases appear similar likely postinflammatory. Bronchial wall thickening again noted. Nosuspicious pulmonary mass noted. No destructive osseous lesion. Degenerative changes left shoulder and dorsal spine. IMPRESSION:1.Nonspecific subpleural lung basilar nodular irregular opacities, probably postinflammatory and are similar to prior imaging. 2.Otherwise no pulmonary mass identified. 3.Bronchial wall thickening compatible with low-grade bronchitis. . [facility] [id number] 18:02:00 Test Item Value Reference Range Interpretation Comments Urine culture (test SEE COMMENT Bacteriu rony screen code = 3108396) negative. [facility] [id number] 18:02:00 Test Item Value Reference Range Interpretation Comments Urine culture (test SEE COMMENT Bacteriu rony screen code = 7549781) negative. [facility] [id number] 18:02:00 Test Item Value Reference Range Interpretation Comments Urine culture (test SEE COMMENT Bacteriu rony screen code = 6965862) negative. [facility] [id number] 18:02:00 Test Item Value Reference Range Interpretation Comments Urine culture (test SEE COMMENT Bacteriu rony screen code = 8639556) negative. [facility] [id number] 17:40:47Exam: US RENAL Indication: 57 years Male acute renal failure Comparison: None. Technique: Grayscale and limited color Doppler ultrasound evaluation of the kidneys and bladder was performed with standard technique. FINDINGS: Right kidney: Measures 10.7 x 8 x 5.7 cm, parenchymal width 1.1 cm. Normal parenchymal echotexture. Mild hydronephrosis. Left kidney: Measures 12.2 x 6.7 x 6.8 cm, parenchymal width 1.3 cm. Normal parenchymal echotexture. Mild hydronephrosis. Bladder: The bladder shows severe circumferential wall thickening. Echogenic debris is seen within the bladder. IMPRESSION:1.Mild bilateral hydronephrosis.2.Severe circumferential bladder wall thickening with intraluminal debris. [id number]- PET/CT TUMOR SK [id number] 14:28:00 [facility] 1965 Sex: M Patient Name: GENO PRASAD Unit No: [id number] EXAMS: CPT CODE: [id number] PET/CT TUMOR SK BS MIDTH 27771 EXAMINATION: - PET/CT TUMOR SK BS MIDTH [...] as the drain follows the course ofthe [facility] NAME: GENO PRASAD [address] [facility] [address] PHYS: [place] [address] : 1965 AGE: 56 SEX: M LOC: [facility]NA[facility] PHONE #: [phone] EXAM DATE: 12/21/2021 STATUS: REG CLI FAX #: [phone] RADIOLOGY NO: PAGE 1 Signed Report (CONTINUED) Patient Name: GENO PRASAD Unit No: [id number] EXAMS: CPT CODE: [id number] PET/CTTUMOR SK BS MIDTH 94561 <Continued> sigmoid colon. Uptake in the more [...] RT(M)(CT); Linnea Vasquez RT(N) Transcrpt Date/Tm/Trnsp: 12/21/2021 (4154) t.[email or web address] Orig Print D/T: S: 12/21/2021 (1432) [facility] NAME: GENO PRASAD [address] [facility] [address] PHYS: [place] [address] : 1965 AGE: 56 SEX: M LOC: [facility]ANNA[facility] PHONE #: [phone] EXAM DATE: 12/21/2021 STATUS: REG CLI FAX #: [phone] RADIOLOGY NO: PAGE 2 Signed [id number] 09:50:00 Test Item Value Reference Range Interpretation Comments GLUCOSE (test code = GLU) 98 MG/DL 79-105 N Comments to Video System Repairer: FOR PETIs this a LINE draw? N- PET/CT TUMOR [facility]ZSPS8444-72-83 13:41:00 [facility] : 1965 Sex: M Patient Name: GENO PRASAD Unit No: [id number] EXAMS: CPT CODE: [id number] PET/CT TUMOR [facility] [address] EXAM: PET/CT scan INDICATION: MALIGNANT NEOPLASM OF RECTUM COMPARISON: None at this time LOCATION: [facility] TECHNIQUE: Approximately 60 minutes following the [...] spine without and with contrast is recommended. [facility] NAME: GENO PRASAD [address] [address] PHYS: [place] [address] : 1965 AGE: 56 SEX: M LOC: Z.ZNUC PHONE #: [phone] EXAM DATE: 09/08/2021 STATUS: DEP CLI FAX #: [phone] RADIOLOGY NO: PAGE 1 Signed Report (CONTINUED) Patient Name: GENO PRASAD Unit No: [id number] EXAMS: CPT CODE: [id number] PET/CT TUMOR SK MIDTH [address] <Continued> There are small lymph nodes in [...] Linnea Vasquez RT(N) Transcrpt Date/Tm/Trnsp: 09/10/2021 (1341) [email or web address].PMT Orig Print D/T: S: 09/10/2021 (9204) [facility] NAME: GENO PRASAD [address] [address] PHYS: [place] [address] : 1965 AGE: 56 SEX: M LOC: [facility]ANNA[facility] PHONE #: [phone] EXAM DATE: 09/08/2021 STATUS: DEP CLI FAX #: [phone] RA DIOLOGY NO: PAGE 2 Signed [id number] 09:44:00 Test Item Value Reference Range Interpretation Comments GLUCOSE (test code = GLU) 86 MG/DL 79-105 N SARS-CoV-2 (COVID-19) RNA [Presence] in Respiratory specimen by YVROSE with probe [id number] 18:54:41 Test Item Value Reference Range Interpretation Comments SARS-CoV-2 (COVID-19) RNA Not detected Not-Detected [Presence] in Respiratory specimen by YVROSE with probe detection (test code = 30678-0) Whether patient is employed in a healthcare setting (test code = 33944-2) Whether the patient has symptoms related to condition of interest (test code = 33796-5) Patient was hospitalized because of this condition (test code = 04804-6) Whether the patient was admitted to intensive care unit (ICU) for condition of interest (test code = 67277-8) Whether patient resides in a congregate care setting (test code = 00487-0) status (test code = 69931-8) BERNARDO SIMPSONRS-CoV-2 (COVID-19) RNA [Presence] in Respiratory specimen by YVROSE with probe [id number] 16:30:19 Test Item Value Reference Range Interpretation Comments SARS-CoV-2 (COVID-19) RNA Not detected Not-Detected [Presence] in Respiratory specimen by YVROSE with probe detection (test code = 55708-2) Whether patient is employed in a healthcare setting (test code = 94664-3) Whether the patient has symptoms related to condition of interest (test code = 27002-8) Patient was hospitalized because of this condition (test code = 87536-2) Whether the patient was admitted to intensive care unit (ICU) for condition of interest (test code = 28096-7) Whether patient resides in a congregate care setting (test code = 35589-4) BERNARDO GREENMARCIO WAITE Notes Date/Time Note Provider Source 2023-06-16 11:34:00 [id number]:34:00 [facility] ([facility])Nephrology Progress NoteREPORT#:[id number] REPORT STATUS: SignedDATE:06/16/23 TIME:1134 PATIENT: GENO PRASAD UNIT #: [id number]#: [id number] ROOM[facility]DOB: [birth year] AGE : 57 SEX: M ATTEND: Michel Rdz [facility] AUTHOR: Tobin Scott MD * ALL edits or amendments must be made on the electronic/computer document * SubjectiveChief complaint:Events noted and chart reviewed. No report of CP, SOB or N/V. Objective GeneralVS/I O:Vital Signs: Date Time Temp Pulse Resp B/P B/P Pulse O2 O2 Flow FiO2 Mean Ox Delivery Rate 09/0 1 0408 36.9 105 12 101/69 79.9 97 06/15 2327 88 14 124/82 96.1 99 06/15 1629 36.8 86 15 124/69 87.0 98 Room air 06/15 1146 36.4 88 15 127/84 98.5 97 Room air 24 hour I O ending at 0700: 06/16 0700 06/15 1900 Intake Total 150 Output Total Balance 150 Intake, Oral 150 PATIENT WEIGHT: Weight (lb) : Weight (oz): Weight (kg): 90.909 MedicationsActive Meds + DC'd Last 24 HrsSodium Polystyrene Sulfonate (KAYEXELATE) 15 GM ONCE ON E PO (DC) Lidocaine HCl (XYLOCAINE) 5 ML ONCALL LOCAL Cefazolin Sodium (KEFZOL) 2 GM ONCALL IV (CKD) Sterile Water (WATER FOR INJECTION) 20 MLFentanyl Citrate (SUBLIMAZE) 100 MCG ONCALL IV (CKD) Midazolam HCl (VERSED) 2 MG ONCALL IV (CKD ) Tamsulosin HCl (FLOMAX) 0.4 MG DAILY PO Acetaminophen (TYLENOL) 650 MG Q4H PRN PRN PO Hydralazine HCl (APRESOLINE) 10 MG Q6H PRN PRN I V Hydrocodone Bitart/Acetaminophen (NORCO 10/325) 1 TAB Q6H PRN PRN PO Morphine Sulfate (morphine Sulfate) 2 MG Q4H PRN PRN IV (DC) Ondansetron HC l (ZOFRAN ODT) 4 MG Q4H PRN PRN PO Sodium Chloride (SODIUM CHLORIDE) 10 ML ASDIR IV Tramadol HCl (ULTRAM) 50 MG Q6H PRN PRN PO Physical ExamGeneral appearance: no respiratory distressHead/eyes: atraumaticENT: moist mucous membranesNeck: supple/no meningismusCardiovascular: regular rate and rhythmRespiratory: clear to auscultationAbdomen: softGenitourinary: B PCN tubes in placeExtremities: no edemaNeuro/STEEL RULE DIE MAKER APPRENTICE: alertPsychiatry: normal mood ResultsFindings/Data:Laboratory Tests 06/16 329 Chemistry Sodium (134 - 147 mmol/L) 136 Potassiu m (3.4 - 5.0 mmol/L) 4.7 Chloride (100 - 108 mmol/L) 108 Carbon Dioxide (21 - 32 mmol/L) 24 Anion Gap (4.0 - 15.0 GAP calc) 4.0 BUN (7 - 18 MG/DL) 26 H Creatinine (0.8 - 1.3 MG/DL) 3.3 H Glomerular Filtr Rate (>60 estGFR) 21 L Glucose (70 - 110 MG/DL) 121 H Calcium (8.5 - 10.1 MG/DL ) 8.0 L Phosphorus (2.5 - 4.9 MG/DL) 2.9 Magnesiu m (1.8 - 2.4 MG/DL) 1.8 Albumin (3.4 - 5.0 G/DL) 1.8 L Laboratory Tests 06/16 329 Hematology WB C (3.5 - 11.0 K/mm3) 10.0 RBC (4.70 - 6.10 M/mm3) 3.77 L Hgb (12.3 - 15.9 G/DL) 8.6 L Hct (35.8 - 46.7 %) 28.4 L MCV (86.3 - 98.9 Fl) 75.3 L MCH (28.9 - 34.4 pg) 22.8 L MCHC (32.1 - 34.5 G/DL) 30.3 L RDW (11.5 - 14.5 SD) 20.8 H Plt Count (15 0 - 450 K/mm3) 485 H MPV (7.0 - 9.6 fL) 8.50 Neut % (Auto) (40 - 76 %) 85.6 H Lymph % (Auto) (20.5 - 51.1 %) 4.2 L Coos % (Auto) (1.7 - 9.3 %) 7.9 Eo s % (Auto) (0.0 - 6.0 %) 1.7 Baso % (Auto) (0.0 - 2.0 %) 0.3 Neut # (Auto) (1.8 - 7.6 K/mm3) 8.6 H Lymph # (Auto) (0.6 - 3.0 K/mm3) 0.4 L Coos # (Auto) (0.2 - 1.5 K/mm3) 0.8 Eos # (Auto) (0.0 - 0.4 K/mm3) 0.2 Baso # (Auto) (0.0 - 0.2 K/mm3) 0.0 Abs Immat Gran (auto) (0.00 - 0.03 x10 3/uL) 0.03 Add Manual Diff (CRITERIA DIFF/SCN) NO Immature Gran % (0.0 - 5.0 %) 0.3 Nucleated RBC % (0.0 - 1.0 /100WBC%) 0.0 Diagnosis, Assessment PlanFree Text A P: ASSESSMENT: JANET on CKD-IIIa.Bilateral uretral obstruction/hydronephrosis.Edema - improved. Hyperkalemia - improved.Anemia.CHF.HTN.BPH.Colorectal cancer. PLAN: Renal function is improving. Differential for JANET on CKD includes pre-renal +/- ATN +/- obstruction. S/p PRBC tx + Urology on board for bilateral ureteral obstruction from locally advanced colorectal cancer and is s/p left PCN exchangeand placement of right PCN tube by IR. Will continue to monitor renal indices and urine output. Baseline CKD likely 2' to HTN/CRS/age. Volume status - acceptable. Serum electrolytes - K better. Continue low K diet + s/p Kayexalate yesterday for hyperkalemia. Acid/base - stable.Monitor serum calcium, phosphorous, and magnesium levels. Monitor H and H levels + s/p PRBC tx.Monitor blood pressure.Strict I's and O' s and daily weights. Renally dose all medications. Avoid NSAID's except aspirin. No KELLEN inhibitor/ARB for now. Presently, there is no acute indication for hemodialysis. Electronicall y Signed by Tobin Scott MD on 06/27/23 at 233 1 RPT #: [id number] OF REPORT PRProgress [id number]:34:00L.[id number] lai able for patient [id number]:31:32 2023-06-16 09:08:00 [id number]:08:00 [facility] ([facility]ospitalist Progress NoteREPORT#:[id number] REPORT STATUS: SignedDATE:06/16/23 TIME:907 PATIENT: GENO PRASAD UNIT #: [id number]#: [id number] ROOM/BED: OBS2-1DOB: [birth year] AGE : 57 SEX: M ATTEND: Michel Rdz [facility] AUTHOR: Michel Rdz MD * ALL edits o r amendments must be made on the electronic/computer document * SubjectiveChief complaint:Feeling weak and anemiaComments:Retrospective note for June 15 patient seen and examined.Patient lying on the bed feels better denies any complaint. Objective GeneralVS/I O:Vital Signs: Date Time Temp Pulse Resp B/P B/P Pulse O2 O2 Flow FiO2 Mean Ox Delivery Rate 06/16 0408 98.4 105 12 101/69 79.9 97 06/15 2327 88 14 124/82 96.1 99 06/15 1629 98.2 86 15 124/69 87.0 98 Room air 06/15 1146 97.5 88 15 127/84 98.5 97 Room air 24 hour I O ending at 0700: 06/16 0700 06/15 1900 Intake Total 150 Output Total Balance 150 Intake, Oral 150 PATIENT WEIGHT: Weight (lb): Weight (oz): Weight (kg): 90.909 Medications:Active Meds + DC'd Last 24 HrsSodium Polystyrene Sulfonate (KAYEXELATE) 15 GM ONCE ONE PO (DC) Lidocaine HC l (XYLOCAINE) 5 ML ONCALL LOCAL Cefazolin Sodium (KEFZOL) 2 GM ONCALL IV (CKD) Sterile Water (WATER FOR INJECTION) 20 MLFentanyl Citrate (SUBLIMAZE) 100 MCG ONCALL IV (CKD) Midazolam HC l (VERSED) 2 MG ONCALL IV (CKD) Tamsulosin HCl (FLOMAX) 0.4 MG DAILY PO Acetaminophen (TYLENOL) 650 MG Q4H PRN PRN PO Hydralazine HCl (APRESOLINE) 10 MG Q6H PRN PRN IV Hydrocodone Bitart/Acetaminophen (NORCO 10/325) 1 TAB Q6H MS N PRN PO Morphine Sulfate (morphine Sulfate) 2 MG Q4H PRN PRN IV Ondansetron HCl (ZOFRAN ODT) 4 MG Q4H PRN PRN PO Sodium Chloride (SODIUM CHLORIDE) 10 ML ASDIR IV Tramadol HCl (ULTRAM) 50 MG Q6H PRN PRN PO Dietitian nutrition assessmentThe josi a set between the solid lines has been imported from the dietitian's assessment. _ BMI Calculated: 25.7Nutrition related diagnosis: Nutrition diagnosis details: Nutrition problem: Nutrition etiology: Nutrition signs and symptoms: Nutritio n prescription: Dietitian name: Assessment completed: _ Review of dietitian's assessment: reviewed and agree ResultsFindings/Data:Laboratory Tests 06/16 05/18 1 0329 0954 Chemistry Sodium (134 - 147 mmol/L) 136 135 Potassium (3.4 - 5.0 mmol/L) 4.7 5.2 H Chloride (100 - 108 mmol/L) 108 105 Carbon Dioxide (21 - 32 mmol/L) 24 26 Anion Gap (4.0 - 15.0 GAP calc) 4.0 4.0 BUN (7 - 18 MG/DL) 26 H 2 8 H Creatinine (0.8 - 1.3 MG/DL) 3.3 H 3.6 H Glomerular Filtr Rate (>60 estGFR) 21 L 19 L Glucose (70 - 110 MG/DL) 121 H 101 Calcium (8.5 - 10.1 MG/DL) 8.0 L 9.0 Phosphorus (2.5 - 4.9 MG/DL) 2.9 Magnesium (1.8 - 2.4 MG/DL) 1.8 Albumin (3.4 - 5.0 G/DL) 1.8 L Laboratory Tests 06/16 06/15 0329 0954 Hematology WBC (3.5 - 11.0 K/mm3) 10.0 12.3 H RBC (4.70 - 6.10 M/mm3) 3.77 L 4.00 L Hgb (12.3 - 15.9 G/DL) 8.6 L 9.3 L Hct (35.8 - 46.7 %) 28.4 L 30.2 L MCV (86.3 - 98.9 Fl) 75.3 L 75.5 L MCH (28.9 - 34.4 pg) 22.8 L 23.3 L MCHC (32.1 - 34.5 G/DL) 30.3 L 30.8 L RDW (11.5 - 14.5 SD) 20.8 H 20.8 H Plt Count (150 - 450 K/mm3) 485 H 540 H MPV (7.0 - 9.6 fL) 8.50 9.10 Neut % (Auto) (40 - 76 %) 85.6 H 88.1 H Lymph % (Auto) (20.5 - 51.1 %) 4.2 L 4.1 L Coos % (Auto) (1.7 - 9.3 %) 7.9 6.3 Eos % (Auto) (0.0 - 6.0 %) 1.7 0.8 Baso % (Auto) (0.0 - 2.0 %) 0.3 0.3 Neut # (Auto) (1.8 - 7.6 K/mm3) 8.6 H 10.9 H Lymph # (Auto) (0.6 - 3.0 K/mm3) 0.4 L 0.5 L Mon o # (Auto) (0.2 - 1.5 K/mm3) 0.8 0.8 Eos # (Auto) (0.0 - 0.4 K/mm3) 0.2 0.1 Baso # (Auto) (0.0 - 0.2 K/mm3) 0.0 0.0 Abs Immat Gran (auto) (0.00 - 0.03 x10 3/uL) 0.03 0.05 H Add Manual Diff (CRITERIA DIFF/SCN) NO NO Immature Gran % (0.0 - 5.0 %) 0.3 0.4 Nucleated RBC % (0.0 - 1.0 /100WBC%) 0.0 0.0 Results: labs reviewed, nena kinney med profile rev'd Free Text Obj NotesFree Text Obj Notes:Physical examinationPatient is a pleasant person lying on the bed does not appear to be in distressHEENT pupils equal round reactive light and accommodating normocephalic/atraumatic skull normal oral mucosaNeck supple no JVDChest clear bilateral entry no wheeze or crackles right-sided MediportCVS S1-S2 no murmur rubs or gallopAbdome n soft nontender bowel sounds positive colostomy and another opening covered with colostomy bag plus left-sided nephrostomy tube now right-sided nephrostomy tube as wellExtremities no pedal edema pulses palpableCNS alert oriented x3 movin g all 4 extremities no focal deficit identifiedPsych examination normal mood no suicidal homicidal ideation Diagnosis, Assessmen t Plan Free Text DxA P NotesFree text DxA P notes:AnemiaProbably related to malignancy plus could be the effect of oral chemo.Status post transfusion. History of urinary tract obstructio n due to malignancy status post left nephrostomy tubePatient was supposed to get nephrostomy tube exchange and there was concern for hydronephrosi s on the right side as well. Underwent exchange of the left nephrostomy and placement of new right-sided nephrostomy tube Locally advanced rectal cancerPatient is on oral chemo Regorafeni b after finishing infusion. We will follow-up with his oncologist. Updated his primary oncologist JANET on CKD stage IVBaseline creatinine is around 2.9 keeps worsening. Nephrology was on board. Creatinine has started to improve. Chronic CHF probably systolic patient states that he probabl y has systolic CHF not exactly sure. We will continue with [employer] Lasix as worsening renal function. HypertensionResume Coreg keep on as needed hydralazine BPHContinue with tamsulosi n DVT prophylaxis with SCDsPatient is full codeDiscussed with patient the interventional radiologist urologist and practice manager Possibly DC in the next 24 hours if creatinine improves at 0909 RPT #: [id number] OF REPORT PRProgress [id number]:08:00L.[id number] lai able for patient [id number]:10:02 2023-06-15 22:38:00 [id number]:38:00 [facility] ([facility]Urology Progress NoteREPORT#:[id number] REPORT STATUS: SignedDATE:06/15/23 TIME:2237 PATIENT: GENO PRASAD UNIT #: [id number]#: [id number] ROOM[facility]BED: [facility]-1DOB: [birth year] AGE : 57 SEX: M ATTEND: Michel Rdz [facility] AUTHOR: Lalo Ruiz MD * ALL edits or amendments must be made on the electronic/computer document * SubjectiveChief complaint:renal failure, colorectal cancer bilateral ureteral obstructionComments:no acute eventstolerating nephrostomiesfeels better Objective GeneralVS/I O:Last Documented: Result Date Time Pulse Ox 98 06/15 1629 B/P 124/69 06/15 1629 B/P Mean 87.0 06/15 162 O2 Delivery Room air 06/15 1629 Temp 98.2 06/15 1629 Pulse 86 06/15 1629 Resp 15 06/15 1629 24 hour I O ending at 0700: 06/15 0700 06/14 1900 Intake Total 250 220 Output Total 450 100 Balance -200 120 Intake, Oral 250 120 Intake, Oral 100 Supplement Output, Urine 450 100 PATIENT WEIGHT: Weight (lb): Weight (oz): Weight (kg): 90.909 Physical ExamGeneral appearance: alert, awake, orientedRespiratory: aerating well, symmetric expansionAbdomen: soft (urine blood tinged L, clear R), non-tender, no rebound, no distention Diagnosis, Assessment PlanFree Text A P:A: ureteral obstruction from locally advanced colorectal canceranemia P: transfused, hgb up appropriatelys/p IR right nephrostomy, left nephrostomy exchangecontinue to monitor renal functiondw patient need to follow up for routine exchanges at 2239 RPT #: [id number] OF REPORT PRProgress [id number]:38:00L.[id number] l able for patient [id number]:39:53 2023-06-15 17:36:00 [id number]:36:00 [facility] ([facility])Nephrology Progress NoteREPORT#:[id number] REPORT STATUS: SignedDATE:06/15/23 TIME:1736 PATIENT: GENO PRASAD UNIT #: [id number]#: [id number] ROOM/BED: OBS2-1DOB: [birth year] AGE : 57 SEX: M ATTEND: Michel Rdz [facility] AUTHOR: Tobin Scott MD * ALL edits or amendments must be made on the electronic/computer document * SubjectiveChief complaint:Events noted and chart reviewed. No report of CP, SOB or N/V. Objective GeneralVS/I O:Vital Signs: Date Time Temp Pulse Resp B/P B/P Pulse O2 O2 Flow FiO2 Mean Ox Delivery Rate 05/18 1 1629 36.8 86 15 124/69 87.0 98 Room air 06/15 1146 36.4 88 15 127/84 98.5 97 Room air 06/15 0757 36.3 87 15 124/82 95.9 99 Room air 06/15 0331 36.9 99 16 117/81 93.1 98 06/15 0035 37.2 9 8 16 134/83 99.8 97 06/14 1953 36.3 104 16 131/87 101.2 95 24 hour I O ending at 0700: 06/15 0700 06/14 1900 Intake Total 250 220 Output Total 45 0 100 Balance -200 120 Intake, Oral 250 120 Intake, Oral 100 Supplement Output, Urine 450 10 0 PATIENT WEIGHT: Weight (lb): Weight (oz): Weight (kg): 90.909 MedicationsActive Meds + DC'd Last 24 HrsLidocaine HCl (XYLOCAINE) 5 ML ONCALL LOCA L Cefazolin Sodium (KEFZOL) 2 GM ONCALL IV (CKD) Sterile Water (WATER FOR INJECTION) 20 MLFentany l Citrate (SUBLIMAZE) 100 MCG ONCALL IV (CKD) Midazolam HCl (VERSED) 2 MG ONCALL IV (CKD) Sodium Chloride (0.9% Sodium Chloride) 1,000 ML .Q10H IV (DC) Tamsulosin HCl (FLOMAX) 0.4 MG DAILY PO Acetaminophen (TYLENOL) 650 MG Q4H PRN PRN PO Hydralazine HCl (APRESOLINE) 10 MG Q6H MS N PRN IV Hydrocodone Bitart/Acetaminophen (NORCO 10/325) 1 TAB Q6H PRN PRN PO Morphine Sulfate (morphine Sulfate) 2 MG Q4H PRN PRN IV Ondansetron HCl (ZOFRAN ODT) 4 MG Q4H PRN PRN PO Sodium Chloride (SODIUM CHLORIDE) 10 ML ASDIR IV Tramadol HCl (ULTRAM) 50 MG Q6H PRN PRN PO Physical ExamGeneral appearance: no respiratory distressHead/eyes: atraumaticENT: moist mucous membranesNeck: supple/no meningismusCardiovascular: regular rate and rhythmRespiratory: clear to auscultationAbdomen: softGenitourinary: B PCN tubes in placeExtremities: no edemaNeuro/STEEL RULE DIE MAKER APPRENTICE: alertPsychiatry: normal mood ResultsFindings/Data:Laboratory Tests 06/15 095 4 Chemistry Sodium (134 - 147 mmol/L) 135 Potassiu m (3.4 - 5.0 mmol/L) 5.2 H Chloride (100 - 108 mmol/L) 105 Carbon Dioxide (21 - 32 mmol/L) 26 Anion Gap (4.0 - 15.0 GAP calc) 4.0 BUN (7 - 18 MG/DL) 28 H Creatinine (0.8 - 1.3 MG/DL) 3.6 H Glomerular Filtr Rate (>60 estGFR) 19 L Glucose (70 - 110 MG/DL) 101 Calcium (8.5 - 10.1 MG/DL) 9.0 Laboratory Tests 06/15 0954 Hematology WBC (3.5 - 11.0 K/mm3) 12.3 H RBC (4.70 - 6.10 M/mm3 ) 4.00 L Hgb (12.3 - 15.9 G/DL) 9.3 L Hct (35.8 - 46.7 %) 30.2 L MCV (86.3 - 98.9 Fl) 75.5 L MCH (28.9 - 34.4 pg) 23.3 L MCHC (32.1 - 34.5 G/DL) 30.8 L RDW (11.5 - 14.5 SD) 20.8 H Plt Count (15 0 - 450 K/mm3) 540 H MPV (7.0 - 9.6 fL) 9.10 Neut % (Auto) (40 - 76 %) 88.1 H Lymph % (Auto) (20.5 - 51.1 %) 4.1 L Coos % (Auto) (1.7 - 9.3 %) 6.3 Eo s % (Auto) (0.0 - 6.0 %) 0.8 Baso % (Auto) (0.0 - 2.0 %) 0.3 Neut # (Auto) (1.8 - 7.6 K/mm3) 10.9 H Lymph # (Auto) (0.6 - 3.0 K/mm3) 0.5 L [place] # (Auto) (0.2 - 1.5 K/mm3) 0.8 Eos # (Auto) (0.0 - 0.4 K/mm3) 0.1 Baso # (Auto) (0.0 - 0.2 K/mm3) 0.0 Abs Immat Gran (auto) (0.00 - 0.03 x10 3/uL ) 0.05 H Add Manual Diff (CRITERIA DIFF/SCN) NO Immature Gran % (0.0 - 5.0 %) 0.4 Nucleated RBC % (0.0 - 1.0 /100WBC%) 0.0 Laboratory Tests 05/18 1 0427 Urines Urine pH (5.0 - 7.0 pH UNITS) 6.0 U r Specific [place] (1.005 - 1.030 SG) 1.010 Urine Protein (NEG mg/dL) TRACE H Urine Glucose (UA) (NEG mg/dL) NEGATIVE Urine Ketones (NEG mg/dL) NEGATIVE Urine Blood (NEG mg/DL) 2+ H Urine Nitrite (NEG SCREEN) NEGATIVE Urine Bilirubin (NEG mg/dL) NEGATIVE Urine Urobilinogen (<2.0 mg/dL) 0.2 Ur Leukocyte Esterase (NEGATIVE Leuk/mcL) 3+ H Ur Random Creatinine (30 - 125 MG/DL) 89.8 Ur Random Sodium (() MEQ/L) 55 Diagnosis, Assessment PlanFree Text A P: ASSESSMENT: JANET on CKD-IIIa.Bilateral uretral obstruction/hydronephrosis.Edema - improved. Hyperkalemia.Anemia.CHF.HTN.BPH.Colorectal cancer. PLAN: Renal function is overall stable. Differential for JANET on CKD includes pre-renal+/ - ATN +/- obstruction. S/p PRBC tx + Urology on board for bilateral ureteral obstruction from locally advanced colorectal cancer and is s/p left PCN exchangeand placement of right PCN tube by IR. Will continue to monitor renal indices an d urine output. Baseline CKD likely 2' to HTN/CRS/age. Volume status - acceptable. Serum electrolytes - Low K diet + Kayexalate for hyperkalemia. Acid/base - stable.Monitor serum calcium, phosphorous, and magnesium levels. Monitor H and H levels + s/p PRBC tx.Monitor blood pressure.Strict I's and O's and daily weights. Renally dose all medications. Avoid NSAID's except aspirin. No KELLEN inhibitor/ARB for now. Presently, there is no acute indication for hemodialysis. at 1957 RPT #: [id number] OF REPORT PRProgress [id number]:36:00L.[id number] lai able for patient [id number]:29:52 2023-06-15 09:27:00 [id number]:27:00 [facility] ([facility])Hospitalist Discharg e SummaryREPORT#:[id number] REPORT STATUS: SignedDATE:06/15/23 TIME:926 PATIENT: GENO PRASAD UNIT #: [id number]#: [id number] [address]DOB[address] [birth year] AGE : 57 SEX: M ATTEND: Michel Rdz AUTHOR: Michel Rdz MD * ALL edits o r amendments must be made on the electronic/computer document * General InformationDate of admission:Observation Start Date: 06/13/23Date of admission: 06/14/23 Discharge date: 06/15/23Admission diagnosis:Obstructive uropathyAnemia due to malignancyLocally advanced rectal cancerHypertensionBPHCHFCKD stage IVDischarge diagnosis:Same as above plus JANET on CKD stage IVStatus post right-sided nephrostomy tube placement and left-sided nephrostomy exchangeHospital course:This is 57-year-old gentleman who came in for routine nephrostomy exchange but was found to have anemia. Please refer to admission H P further details. Patient was transfused 2 unit PRBC after getting that he underwent new right-sided nephrostomy tube placement because of obstructive uropathy on the right side and had left nephrostomy tube exchange. Patient also developed JANET on CKD received some fluids also had some hyperkalemia nephrology was on board. Reasonfor JANET on CKD might be related to obstructive uropathy. Radha kinney oncologist wasalso updated. Pending morning labs and clearance from subspecialties patient will b e discharged. Med Rec Med RecDischarge meds:Continue taking these medications:HYDROcodone/APAP (HYDROcodone/APAP 10/325) 10 MG-325 MG TAB 1 TABLET ORAL EVERY 6 HOURS. FUROSEMIDE (LASIX) 40 MG TAB 40 MILLIGRAM ORAL DAILY. CARVEDILOL (COREG) 25 MG TAB 25 MILLIGRAM ORAL TWICE DAILY WITH MEALS. [STIVARGA 40 MG TABS] Comments: #84 - SIG Obtained From [place] TAMSULOSIN ER (FLOMAX) 0.4 MG CAP.SR.24H Comments: TAKE 1 CAPSULE BY MOUTH EVERY DAY; #90 - SIG Obtained From [place] hydrOXYzine HCL (ATARAX) 25 MG TAB 25 MILLIGRAM ORAL AT BEDTIME NEEDED. as needed for ANXIETY ObjectiveVS/I OLast Documented: Result Date Time Pulse Ox 99 06/15 757 B/P 124/82 06/15 757 B/P Mean 95.9 06/15 757 O2 Delivery Room air 06/15 757 Temp 97.3 06/15 757 Pulse 87 06/15 757 Resp 15 06/15 757 24 hour I O ending at 0700: 06/15 070 0 06/14 1900 Intake Total 250 220 Output Total 45 0 100 Balance -200 120 Intake, Oral 250 120 Intake , Oral 100 Supplement Output, Urine 450 100 ResultsFindings/Data:Laboratory Tests: 06/15 042 7 Urines Urine pH (5.0 - 7.0 pH UNITS) 6.0 Ur Specific [place] (1.005 - 1.030 SG) 1.010 Urine Protein (NEG mg/dL) TRACE H Urine Glucose (UA) (NEG mg/dL) NEGATIVE Urine Ketones (NEG mg/dL) NEGATIVE Urine Blood (NEG mg/DL) 2+ H Urine Nitrite (NEG SCREEN) NEGATIVE Urine Bilirubin (NEG mg/dL) NEGATIVE Urine Urobilinogen (<2.0 mg/dL) 0.2 Ur Leukocyte Esterase (NEGATIVE Leuk/mcL) 3+ H Ur Random Creatinine (30 - 125 MG/DL) 89.8 Radiology data:Recent Impressions:ULTRASOUND - US OTHER DX US PROCEDUR E 06/14 1430 Report Impression - Status: SIGNED Entered: 06/14/2023 6740 IMPRESSION: Successful right-sided percutaneous nephrostomy placementan d left-sided nephrostomy tube exchange. PLAN: The tubes should be flushed with saline 5 mL normal saline twicea day. Impression By: [email or web address] - Seymour Sales M.D.SPECIAL PROCEDURES - SP NEPH CATH EXCHANGE 06/14 1445 Report Impression - Status: SIGNED Entered: 06/14/2023 1629 IMPRESSION: Successful right-sided percutaneous nephrostomy placementand left-sided nephrostomy tube exchange. PLAN: The tubes should be flushed with saline 5 mL normal saline twicea day. Impression By: Vasiliy Sales M.D.SPECIAL PROCEDURES - SP [facility] NEPH CATH 05/18 0 1500 Report Impression - Status: SIGNED Entered: 06/14/2023 1629 IMPRESSION: Successful right-sided percutaneous nephrostomy placementan d left-sided nephrostomy tube exchange. PLAN: The tubes should be flushed with saline 5 mL normal saline twicea day. Impression By: Vasiliy Sales M.D. Free Text Obj NotesFree Text Obj Notes:Physical examinationPatient is a pleasant person lying on the bed does not appear to be in distressHEENT pupils equal round reactive light and accommodating normocephalic/atraumatic skull normal oral mucosaNeck supple no JVDChest clear bilateral entry no wheeze or crackles right-side d MediportCVS S1-S2 no murmur rubs or gallopAbdome n soft nontender bowel sounds positive colostomy and another opening covered with colostomy bag plus bilateral nephrostomy tubeExtremities no pedal edema pulses palpableCNS alert oriented x3 moving all 4 extremities no focal deficit identifiedPsych examination normal mood no suicidal homicidal ideation Discharge Instructions PCPPCP follow-up:PCP: Seymour Sales MD Discharge to: Home/Self CareAdditional Discharge Routines: Shipping Clerk Follow-Up, Add. instructionsDiet: Resume Home Diet/FeedsAdditional instructions:Continue nephrostomy careContinue colostomy careFollow-up with your oncologistFollow-up with urologistFollow-up with nephrology get repeat labs checked in 4 to 5 days timeFollow-up with PCP for routine healthcare maintenanceDischarge management: greater than 30 mins (34)Time spent: >50% spent on counseling/coordination of care: yes Follow-up AppointmentsConsulting provider 1: Provider 1 (free text): oncologist (nasir vargas)Consulting provider 2: Provider 2: Lalo Ruiz MD Treatments ProceduresTreatments Procedures:Right-sided nephrostomy tube placemen t and left-sided nephrostomy at 1728 RPT #: [id number] OF REPORT DSDischarge [id number]:27:00L.[id number] v ailable for patient [id number]:28:24 2023-06-14 17:01:00 [id number]:01:00 [facility] ([facility] Progress NoteREPORT#:[id number] REPORT STATUS: SignedDATE:06/14/23 TIME:1701 PATIENT: GENO PRASAD UNIT #: [id number]#: [id number] [address] AGE : 57 SEX: M ATTEND: Michel Rdz [facility] AUTHOR: Lalo Ruiz MD * ALL edits or amendments must be made on the electronic/computer document * SubjectiveChief complaint:renal failure, colorectal cancerbilateral ureteral obstructionComments:no acute eventsfeels better after transfusionno urinary symptoms Objective GeneralVS/I O:Last Documented: Result Date Time Pulse Ox 96 06/14 1639 B/P 117/80 06/14 1639 B/P Mean 92.4 06/14 1639 O2 Delivery Room air 06/14 1639 Temp 97.7 06/14 1639 Pulse 98 06/14 1639 Resp 15 06/14 1639 24 hour I O ending at 0700: 06/14 0700 08/ 9 1900 Intake Total 1650.00 100 Output Total 300 Balance 1350.00 100 Intake, IV 700.00 100 Intake , Oral 250 Intake, 700 Packed Cells Output, Urine 300 Patient 200 lb Weight Weight Stated/Reporte d Measurement Method PATIENT WEIGHT: Weight (lb): Weight (oz): Weight (kg): 90.909 Physical ExamGeneral appearance: alert, awake, orientedRespiratory: aerating well, symmetric expansionAbdomen: soft, non-tender, no rebound, no distention Diagnosis, Assessment PlanFree Ramón t A P:A: ureteral obstruction from locally advance d colorectal canceranemia P: transfused, hgb up appropriatelypending IR right nephrostomy, left nephrostomy exchangecontinue to monitor renal function at 1703 RPT #: [id number] OF REPORT PRProgress [id number]:01:00L.[id number] l able for patient [id number]:03:38 2023-06-14 15:12:00 [id number]:12:00 [facility]lineist Progress NoteREPORT#:[id number] REPORT STATUS: SignedDATE:06/14/23 TIME:1512 PATIENT: GENO PRASAD UNIT #: [id number]#: [id number] [address] AGE : 57 SEX: M ATTEND: Michel Rdz [facility] AUTHOR: Michel Rdz MD * ALL edits or amendments must be made on the electronic/computer document * SubjectiveChief complaint:Feeling weak and anemiaComments:patien t lying on the bed denies any other complaints, Objective GeneralVS/I O:Vital Signs: Date Time Temp Pulse Resp B/P B/P Pulse O2 O2 Flow FiO2 Mean Ox Delivery Rate 06/14 1159 98.2 96 15 119/79 92.6 97 Room air 06/14 0810 97.5 106 15 116/79 91.2 98 Room air 06/147 98.6 93 20 118/78 91.1 97 06/138 99.0 104 16 123/82 95.7 96 06/13 2252 98.8 99 16 120/79 92.9 97 06/13 2154 98.8 115 16 127/82 97.2 98 06/13 2053 98.1 114 16 130/76 94.4 97 06/13 2033 98.2 111 1 6 131/89 103.2 97 06/13 1957 97.5 103 14 125/82 96.2 97 06/13 1700 111 20 116/77 90 100 Room air 06/13 1624 98.4 109 17 113/72 96 06/13 1609 97.8 110 113/72 100 06/13 1600 103 16 119/78 91 99 Room air 24 hour I O ending at 0700: 06/14 0700 06/13 1900 Intake Total 1650.00 100 Output Total 300 Balance 1350.00 100 Intake, IV 700.00 100 Intake, Oral 250 Intake, 700 Packed Cells Output, Urine 300 Patient 90.909 kg Weight Weigh t Stated/Reported Measurement Method PATIENT WEIGHT: Weight (lb): Weight (oz): Weight (kg): 90.909 Medications:Active Meds + DC'd Last 24 HrsLidocaine HCl (XYLOCAINE) 5 ML ONCALL LOCAL Cefazolin Sodium (KEFZOL) 2 GM ONCALL IV (CKD) Sterile Water (WATER FOR INJECTION) 20 MLFentany l Citrate (SUBLIMAZE) 100 MCG ONCALL IV (CKD) Lidocaine/Epinephrine (XYLOCAINE 1%-Epi 1:100,000) 20 ML ONCE ONE LOCAL (DC) Midazolam HCl (VERSED) 2 MG ONCALL IV (CKD) Diatrizoate Meglum/Diatrizoate Sod (GASTROGRAFIN 66-10 SOLUTION) 0 .STK-MED ONE .ROUTE (DC) Sodium Chloride (0.9% Sodium Chloride) 1,000 ML .Q10H I V Sodium Polystyrene Sulfonate (KAYEXELATE) 30 GM ONCE ONE PO (DC) Furosemide (LASIX) 40 MG DAILY PO (DC) Tamsulosin HCl (FLOMAX) 0.4 MG DAILY PO Acetaminophen (TYLENOL) 650 MG Q4H PRN PRN PO Hydralazine HCl (APRESOLINE) 10 MG Q6H PRN PRN I V Hydrocodone Bitart/Acetaminophen (NORCO 10/325) 1 TAB Q6H PRN PRN PO Morphine Sulfate (morphine Sulfate) 2 MG Q4H PRN PRN IV Ondansetron HCl (ZOFRAN ODT) 4 MG Q4H PRN PRN PO Sodium Chloride (SODIUM CHLORIDE) 10 ML ASDIR IV Sodium Chloride (0.9% Sodium Chloride) 500 ML ONCE ONE IV (DC) Tramadol HCl (ULTRAM) 50 MG Q6H PRN PRN PO Dietitian nutrition assessmentThe data set between the solid lines has been imported from the dietitian's assessment. _ BMI Calculated: 25.7Nutrition related diagnosis: Nutrition diagnosis details: Nutrition problem: Nutrition etiology: Nutrition signs and symptoms: Nutritio n prescription: Dietitian name: Assessment completed: _ Review of dietitian's assessment: reviewed and agree ResultsFindings/Data:Laboratory Tests 06/14 033 4 Chemistry Sodium (134 - 147 mmol/L) 135 Potassiu m (3.4 - 5.0 mmol/L) 5.5 H Chloride (100 - 108 mmol/L) 106 Carbon Dioxide (21 - 32 mmol/L) 27 Anion Gap (4.0 - 15.0 GAP calc) 2.0 L BUN (7 - 1 8 MG/DL) 31 H Creatinine (0.8 - 1.3 MG/DL) 3.7 H Glomerular Filtr Rate (>60 estGFR) 18 L Glucose (70 - 110 MG/DL) 85 Calcium (8.5 - 10.1 MG/DL) 8.7 Laboratory Tests 06/14 0333 Hematology WBC (3.5 - 11.0 K/mm3) 12.2 H RBC (4.70 - 6.10 M/mm3) 3.82 L Hgb (12.3 - 15.9 G/DL) 8.8 L Hct (35.8 - 46.7 %) 29.1 L MCV (86.3 - 98.9 Fl) 76.2 L MCH (28.9 - 34.4 pg) 23.0 L MCHC (32.1 - 34.5 G/DL) 30.2 L RDW (11.5 - 14.5 SD) 20.3 H Plt Count (150 - 450 K/mm3) 428 MPV (7.0 - 9.6 fL) 8.30 Neut % (Auto) (40 - 76 %) 89.4 H Lymph % (Auto) (20.5 - 51.1 %) 3.1 L [place]os % (Auto) (1.7 - 9.3 %) 6.0 Eos % (Auto) (0.0 - 6.0 %) 1.0 Baso % (Auto) (0.0 - 2.0 %) 0.2 Neut # (Auto) (1.8 - 7. 6 K/mm3) 10.9 H Lymph # (Auto) (0.6 - 3.0 K/mm3) 0.4 L [place] # (Auto) (0.2 - 1.5 K/mm3) 0.7 Eos # (Auto) (0.0 - 0.4 K/mm3) 0.1 Baso # (Auto) (0.0 - 0.2 K/mm3) 0.0 Abs Immat Gran (auto) (0.00 - 0.0 3 x10 3/uL) 0.04 H Add Manual Diff (CRITERIA DIFF/SCN) NO Immature Gran % (0.0 - 5.0 %) 0.3 Nucleated RBC % (0.0 - 1.0 /100WBC%) 0.0 Platele t Estimate (ADEQUATE THOUSAND) SLIGHTLY INCREASED Plt Morphology Comment OCC LARGE PLATELET Polychromasia (NONE ON SCAN) TRACE Hypochromasia (NONE ON SCAN) 2+ H Anisocytosis (NONE) 2+ H Microcytosis (NONE ON SCAN) 1+ Macrocytosis (NON E ON SCAN) 1+ Spherocytes (NONE ON SCAN) TRACE Ovalocytes (NONE ON SCAN) TRACE Results: labs reviewed, current med profile rev'd Free Text Ob j NotesFree Text Obj Notes:Physical examinationPatient is a pleasant person lying on the bed does not appear to be in distressHEENT pupils equal round reactive light and accommodating normocephalic/atraumatic skull normal oral mucosaNeck supple no JVDChest clear bilateral entry no wheeze or crackles right-side d MediportCVS S1-S2 no murmur rubs or gallopAbdome n soft nontender bowel sounds positive colostomy and another opening covered with colostomy bag plus left-sided nephrostomy tubeExtremities no pedal edema pulses palpableCNS alert oriented x3 moving all 4 extremities no focal deficit identifiedPsych examination normal mood no suicidal homicidal ideation Diagnosis, Assessmen t Plan Free Text DxA P NotesFree text DxA P notes:AnemiaProbably related to malignancy plus could be the effect of oral chemo.Status post transfusion. History of urinary tract obstructio n due to malignancy status post left nephrostomy tubePatient was supposed to get nephrostomy tube exchange and there was concern for hydronephrosi s on the right side as well. Urology and interventional radiology are on board spoke to them and patient will be undergoing IR guided procedures after getting blood transfusion Locally advanced rectal cancerPatient is on oral chemo Regorafenib after finishing infusion. We will follow-up with his oncologist. Updated his primary oncologist JANET on CKD stage IVBaseline creatinine is around 2.9 keeps worsening. We aubrey l give him gentle IV fluids might be some element of obstructive uropathy. Have asked nephrology t o evaluate considering patient is getting hyperkalemic as well Chronic CHF probably systolic patient states that he probably has systolic CHF not exactly sure. We will continue with [employer] Lasix as worsening renal function. HypertensionResume Coreg keep on as needed hydralazine BPHContinue with tamsulosin DVT prophylaxis with SCDsPatient is full codeDiscussed with patient the interventional radiologist and at 1516 RPT #: [id number] OF REPORT PRProgress [id number]:12:00L.[id number] lai able for patient [id number]:16:40 2023-06-14 13:31:00 [id number]:31:00 [facility] ([facility])Nephrology Consultation NoteREPORT#:[id number] REPORT STATUS : SignedDATE:06/14/23 TIME:1331 PATIENT: GENO PRASAD UNIT #: [id number]#: [id number] ROOM[facility]ED[facility]DOB: [birth year] AGE : 57 SEX: M ATTEND: Michel Rdz [facility] AUTHOR: Tobin Scott MD * ALL edits or amendments must be made on the electronic/computer document * History of Presen t IllnessRequesting clinician: Dr. Ferro for consult:Elevated serum creatinine. Fluid, electrolyte, and acid-base management. Chief complaint:Generalized weaknessPCP:PCP: Marisol Sales MD HPI:Patient is a 57 years old man who was admitted to [facility] for symptomatic anemia after he presented with chief c/o generalized weakness. Hb level on admission was 6.6. S/p PRB C tx. Serum Cr at 3.7, BUN 31, and K 5.5 which was Rxed. Urology on board for bilateral ureteral obstruction from locally advanced colorectal cancer. Awaiting left PCN exchange and placement of right PCN tube placement by IR. Serum Cr in 01/2023 was 1.6. No report of CP, SOB, N/V/D, fever or RILEY. Nurse at bedside. History - Adult longitudinalAdditional medical history:Locally advanced rectal cancer Hypertension BPH CHF unknownAdditional surgical history:Colostomy Mediport placementAdditional family history:Reviewed not significant in this patient's careAlcohol use: Denies EtOH useDrug use: Denies recreational drugsSmoking status for patients 13 years old or older: Never SmokerAllergies:Coded Allergies:No Known Allergies (01/25/23) Review of SystemsConstitutional:Reports: generalized weakness. Eyes:Denies: visual loss/blurred. ENT:Denies: sore throat. Respiratory:Denies: SOB . Cardiovascular:Denies: chest pain. GI:Denies: nausea, vomiting. Neuro:Denies: seizure. Objective GeneralVS/I O:Vital Signs: Date Time Temp Pulse Resp B/P B/P Pulse O2 O2 Flow FiO2 Mean Ox Delivery Rate 06/14 1159 36.8 96 15 119/79 92.6 97 Room air 06/14 0810 36.4 106 15 116/79 91.2 98 Room air 06/14 0437 37.0 93 20 118/78 91.1 97 06/13 2318 37.2 104 16 123/82 95. 7 96 06/13 2252 37.1 99 16 120/79 92.9 97 06/13 2154 37.1 115 16 127/82 97.2 98 06/13 2053 36.7 114 16 130/76 94.4 97 06/13 2033 36.8 111 16 131/89 103.2 97 06/13 1957 36.4 103 14 125/82 96.2 97 06/13 1700 111 20 116/77 90 100 Room air 06/13 1624 36.9 109 17 113/72 96 06/13 1609 36.6 110 113/72 100 06/13 1600 103 16 119/78 91 99 Room air 06/13 1500 103 26 119/78 91 97 06/13 1400 88 15 119/76 90 100 Room air 24 hour I O ending at 0700: 06/14 0700 06/13 1900 Intake Total 1650.00 100 Output Total 300 Balance 1350.00 100 Intake, IV 700.00 100 Intake, Oral 250 Intake, 700 Packed Cells Output, Urine 300 Patient 90.909 kg Weight Weight Stated/Reported Measurement Method PATIENT WEIGHT: Weight (lb): Weight (oz): Weight (kg): 90.909 Medications:Active Meds + DC'd Last 24 HrsLidocaine HCl (XYLOCAINE) 5 ML ONCALL LOCAL Cefazolin Sodium (KEFZOL) 2 GM ONCALL IV (CKD) Sterile Water (WATER FOR INJECTION) 20 MLFentany l Citrate (SUBLIMAZE) 100 MCG ONCALL IV (CKD) Lidocaine/Epinephrine (XYLOCAINE 1%-Epi 1:100,000) 20 ML ONCE ONE LOCAL (DC) Midazolam HCl (VERSED) 2 MG ONCALL IV (CKD) Diatrizoate Meglum/Diatrizoate Sod (GASTROGRAFIN 66-10 SOLUTION) 0 .STK-MED ONE .ROUTE (DC) Sodium Chloride (0.9% Sodium Chloride) 1,000 ML .Q10H I V Sodium Polystyrene Sulfonate (KAYEXELATE) 30 GM ONCE ONE PO (DC) Furosemide (LASIX) 40 MG DAILY PO (DC) Tamsulosin HCl (FLOMAX) 0.4 MG DAILY PO Acetaminophen (TYLENOL) 650 MG Q4H PRN PRN PO Hydralazine HCl (APRESOLINE) 10 MG Q6H PRN PRN I V Hydrocodone Bitart/Acetaminophen (NORCO 10/325) 1 TAB Q6H PRN PRN PO Morphine Sulfate (morphine Sulfate) 2 MG Q4H PRN PRN IV Ondansetron HCl (ZOFRAN ODT) 4 MG Q4H PRN PRN PO Sodium Chloride (SODIUM CHLORIDE) 10 ML ASDIR IV Sodium Chloride (0.9% Sodium Chloride) 500 ML ONCE ONE IV (DC) Tramadol HCl (ULTRAM) 50 MG Q6H PRN PRN PO Physical ExamGeneral appearance: no respiratory distressHead/eyes: atraumaticENT: moist mucous membranesNeck: supple/no meningismusCardiovascular: regular rate and rhythmRespiratory: clear to auscultationAbdomen: softGenitourinary: no urinary catheter, left PCN tube in placeExtremities: trace edemaNeuro/STEEL RULE DIE MAKER APPRENTICE: alertPsychiatry: anxious ResultsFindings/Data:Laboratory Tests 06/14 033 4 Chemistry Sodium (134 - 147 mmol/L) 135 Potassium (3.4 - 5.0 mmol/L) 5.5 H Chloride (100 - 108 mmol/L) 106 Carbon Dioxide (21 - 32 mmol/L ) 27 Anion Gap (4.0 - 15.0 GAP calc) 2.0 L BUN (7 - 18 MG/DL) 31 H Creatinine (0.8 - 1.3 MG/DL) 3. 7 H Glomerular Filtr Rate (>60 estGFR) 18 L Glucose (70 - 110 MG/DL) 85 Calcium (8.5 - 10.1 MG/DL) 8.7 Laboratory Tests 06/14 0333 Hematolog y WBC (3.5 - 11.0 K/mm3) 12.2 H RBC (4.70 - 6.10 M/mm3) 3.82 L Hgb (12.3 - 15.9 G/DL) 8.8 L Hct (35.8 - 46.7 %) 29.1 L MCV (86.3 - 98.9 Fl) 76.2 L MCH (28.9 - 34.4 pg) 23.0 L MCHC (32.1 - 34.5 G/DL) 30.2 L RDW (11.5 - 14.5 SD) 20.3 H Plt Count (150 - 450 K/mm3) 428 MPV (7.0 - 9.6 fL) 8.30 Neut % (Auto) (40 - 76 %) 89.4 H Lymph % (Auto) (20.5 - 51.1 %) 3.1 L Coos % (Auto) (1.7 - 9.3 %) 6.0 Eos % (Auto) (0.0 - 6.0 %) 1.0 Baso % (Auto) (0.0 - 2.0 %) 0.2 Neut # (Auto) (1.8 - 7. 6 K/mm3) 10.9 H Lymph # (Auto) (0.6 - 3.0 K/mm3) 0.4 L Coos # (Auto) (0.2 - 1.5 K/mm3) 0.7 Eos # (Auto) (0.0 - 0.4 K/mm3) 0.1 Baso # (Auto) (0.0 - 0.2 K/mm3) 0.0 Abs Immat Gran (auto) (0.00 - 0.0 3 x10 3/uL) 0.04 H Add Manual Diff (CRITERIA DIFF/SCN) NO Immature Gran % (0.0 - 5.0 %) 0.3 Nucleated RBC % (0.0 - 1.0 /100WBC%) 0.0 Platele t Estimate (ADEQUATE THOUSAND) SLIGHTLY INCREASED Plt Morphology Comment OCC LARGE PLATELET Polychromasia (NONE ON SCAN) TRACE Hypochromasia (NONE ON SCAN) 2+ H Anisocytosis (NONE) 2+ H Microcytosis (NONE ON SCAN) 1+ Macrocytosis (NON E ON SCAN) 1+ Spherocytes (NONE ON SCAN) TRACE Ovalocytes (NONE ON SCAN) TRACE Diagnosis, Assessment Plan Free Text DxA P NotesFree text DxA P notes: ASSESSMENT: JANET on CKD-IIIa.Bilateral uretral obstruction/hydronephrosis.Edema.Hyperkalemia.An e cabrera.CHF.HTN.BPH.Colorectal cancer. PLAN: Differential for JANET on CKD includes pre-renal +/- ATN +/- obstruction. S/p PRBCtx + Urology on board for bilateral ureteral obstruction from locally advanced colorectal cancer and is awaiting left PCN exchange and placement of righ t PCN tube placement by IR. Will check UA and urin e lytes. Will continue to monitor renal indices an d urine output. Baseline CKD likely 2' to HTN/CRS/age. Volume status - Low salt diet + Lasix for edema.Serum electrolytes - Low K diet + Lasix + Kayexalate for hyperkalemia. Acid/base - stable.Monitor serum calcium, phosphorous, and magnesium levels. Monitor H and H levels + s/p PRBC tx.Monitor blood pressure.Strict I's and O' s and daily weights. Renally dose all medications. Avoid NSAID's except aspirin. No KELLEN inhibitor/ARB for now. Presently, there is no acute indication for hemodialysis. Thanks for e consult. Will follow pt with you. Pls call for any questions. at 2[address] [facility] #: [id number] OF REPORT [id number]:31:00L.[id number] for patient [id number]:24:31 2023-06-13 23:20:00 [id number]:[id number] [address] PATIENT NAME: GENO PRASAD ADMIT DATE: 06/14/23ACCOUNT NO: [id number] ROOM NO: L.OBS2 AGE: 57 REPORT TYPE: CONSULTATION SEX : M ADMITTING PHYSICIAN: Michel Rdz MD ATTENDING PHYSICIAN: Michel Rdz MD CONSULTATION DATE: 06/13/2023 CONSULTING PHYSICIAN: Lalo Ruiz MD CHIEF COMPLAINT: Ureteral obstruction. HISTORY OF PRESENT ILLNESS : Geno Prasad is a 57-year-old gentleman, withcolorectal cancer. He has locally advanced disease. He is receivingchemotherapy. He has undergone a colostomy as well. He has ureteralobstruction secondary to his locally advanced colorectal cancer with invasion ofbladder base. He is managed by left nephrostom y tube. He presented to me inclinic with a left nephrostomy tube in place. Subsequently, imaging also showsdevelopment of right hydronephrosis. I counseled the patient for a leftnephrostomy tube exchange and right nephrostomy tube placement. e wasscheduled to have this done by Interventional Radiology, but was found on labsto be anemic. e patient has had chronic anemia and has received bloodtransfusion previously for the void small amounts. He does report some fatigue. REVIEW OF SYSTEMS: No fevers or chills. No nausea, no vomiting. No chest painor shortness of breath. N o dysuria, no gross hematuria. Otherwise, [id number]-hcecz review of systems. PAST MEDICAL HISTORY:1. Colorectal cancer.2. Hypertension.3. BPH.4. CHF. PAST SURGICAL HISTORY: Colostomy. SOCIAL HISTORY: Negative x3. FAMILY HISTORY: Noncontributory. PHYSICAL EXAMINATION:VITAL SIGNS: The patient's T-max of 98.8, pulse is 99, blood pressure 120/79.GENERAL: The patient not i n acute distress, awake, alert and oriented.HEENT: Atraumatic, normocephalic. EOMI.NECK: Supple. Trachea is midline.LUNGS: Normal respiratory effort, nonlabored breathing. PATIENT NAME: GENO PRASAD ABDOMEN: Soft. No rebound, no guarding, no CVA tenderness.GENITOURINARY: Left nephrostomy tube is in place with cloudy urine.EXTREMITIES: No clubbing, cyanosis or edema. PERTINENT LABORATORY: His white count 7.7, hemoglobin coun t 6.6, creatinine 3.6with the BUN of 26. PERTINENT IMAGING: A CT scan on 04/13/2023 shows:1. Zdoobcwr-cn-cfzz hydroureteronephrosis, left percutaneous nephrostomy tubein place without hydronephrosis, bladder wall thickening.2. Bilateral internal iliac lymphadenopathy. ASSESSMENT AND PLAN: The patient with ureteral obstruction secondary to locallyadvanced colorectal cancer with an invasion of the bladde r base. The patientwas to have undergone retained left nephrostomy tube exchange, percutaneousnephrostomy tube placement in an outpatient setting, but has anemia. He,therefore,was directed to the ER and is currently admitted, obtaining a blood transfusion. I recommend interventional radiolog y be consulted for left nephrostomy tube exchange, right nephrostomy tube placement. Further recommendations pending his clinical course. Dictated By: Lalo Ruiz MD Date Dictated: 06/13/2023 23:20:08Date Transcribed: 06/14/2023 00:14:01Ayaz/ALONZO/Yvonne #: [id number] ID: [id number] and Edited by Lalo Ruiz MD On 06/15/23 11:28:40 PM at 1131 PATIENT NAME: GENO PRASAD :14:00L.H I [id number] for patient [id number]:32:24 2023-06-13 09:53:00 [id number]:53:00 [facility] ([facility])Hospitalist History PhysicalREPORT#:[id number] REPORT STATUS: SignedDATE:06/13/23 TIME:952 PATIENT: GENO PRASAD UNIT #: [id number]#: [id number] [facility]-1DOB: [birth year] AGE : 57 SEX: M ATTEND: Michel Rdz [facility] AUTHOR: Michel Rdz MD * ALL edits o r amendments must be made on the electronic/computer document * See AddendumHistory of Present Illness HPIChief complaint:Feeling weak and anemiaPCP:PCP: Nasir Riddle:This is 57-year-old gentleman who cam e in with complains of feeling weak and he was scheduled to get his nephrostomy tube exchange. Patient has colorectal cancer on chemotherapy status post infusion chemo and plan is for surgery later. Patient is status post colostomy and another pouch for mucus collection from the cancer.Patient stated in the past few days he riley s been feeling weak and this happens when he gets anemic. Has received blood transfusion 4 times i n the past.Denies any fever headache sore throat cough chest pain palpitation shortness of breath any diarrhea any problem in the urine any numbness of hands or feet or any focal weakness. Patient came to get his nephrostomy tube exchang e and was found to have anemia with outside labs showing hemoglobin of 6.8. History Past Medical Surgical HxAdditional medical history:Locally advanced rectal cancerHypertensionBPHCHF unknownAdditional surgical history:ColostomyMediport placement Family HistoryAdditional family history:Reviewed not significant in this patient's care Social HistoryAlcohol use: Denies EtOH useDrug use: Denies recreational drugsSmoking status for patients 13 years old or older: Never Smoker Medication/Allergy-Vaccine HxMedications:Home Medications:[STIVARGA 40 MG TABS] #84 - SIG Obtained From DrFirstTAMSULOSIN ER (FLOMAX) TAKE 1 CAPSULE BY MOUTH EVERY DAY; #90 - SIG Obtained From DrFirstHYDROcodone/APAP (HYDROcodone/APAP 10/325) 1 TAB PO Q6H FUROSEMIDE (LASIX) 40 MG PO DAILY CARVEDILOL (COREG) 25 MG PO BID MEALS Allergies:Coded Allergies:No Known Allergies (01/25/23) Review of SystemsAll systems rev neg: except as noted OBJECTIVEVS/I O:Vital Signs Date Temp Pulse Resp B/P B/P Mean Pulse Ox FiO2 06/13 97.9 90 18 131/84 99 100 Last Documented: Result Date Time Pulse Ox 100 06/13 0855 B/P 131/84 06/13 0855 B/P Mean 99 06/13 0855 O2 Delivery Room air 06/13 0855 Temp 97.9 08 0855 Pulse 90 / 0855 Resp 18 06/13 0855 Patient Weight and BMI Weight (kg): 90.909 BMI: 25.7 Medications:Active Meds + DC'd Last 24 HrsFurosemide (LASIX) 40 MG DAILY PO (UNV) Tamsulosin HCl (FLOMAX) 0.4 MG DAILY PO (UNV) Acetaminophen (TYLENOL) 650 MG Q4H PRN PRN PO (UNV) Furosemide (LASIX) 40 MG ONCE ONE IV (UNV) Hydralazine HCl (APRESOLINE) 10 MG Q6H PRN PRN I V (UNV) Hydrocodone Bitart/Acetaminophen (NORCO 10/325) 1 TAB Q6H PRN PRN PO (UNV) Morphine Sulfate (morphine Sulfate) 2 MG Q4H PRN PRN IV (UNV) Ondansetron HCl (ZOFRAN ODT) 4 MG Q4H PRN PRN PO (UNV) Sodium Chloride (SODIUM CHLORIDE) 1 0 ML ASDIR IV (UNV) Sodium Chloride (0.9% Sodium Chloride) 500 ML ONCE ONE IV (UNV) Tramadol HCl (ULTRAM) 50 MG Q6H PRN PRN PO (UNV) Free Text PE NotesFree Text PE Notes:Physical examinationPatient is a pleasant person lying on the bed does not appear to be in distressHEENT pupils equal round reactive light and accommodating normocephalic/atraumatic skull normal oral mucosaNeck supple no JVDChest clear bilateral entry no wheeze or crackles right-side d MediportCVS S1-S2 no murmur rubs or gallopAbdome n soft nontender bowel sounds positive colostomy and another opening covered with colostomy bag plus left-sided nephrostomy tubeExtremities no pedal edema pulses palpableCNS alert oriented x3 moving all 4 extremities no focal deficit identifiedPsych examination normal mood no suicidal homicidal ideation Diagnosis, Assessmen t PlanFree Text A P:AnemiaProbably related to malignancy plus could be the effect of oral chemo.Will be getting blood transfusion to keep H H above 8 so that patient can undergo procedure. No signs of active bleeding. Avoid antiplatelets anticoagulation at this point History of urinary tract obstruction due to malignancy status post left nephrostomy tubePatient was supposed to get nephrostomy tube exchange and there was concern for hydronephrosis on the right side as well. Urology and interventional radiology are on boar d spoke to them and patient will be undergoing IR guided procedures after getting blood transfusio n Locally advanced rectal cancerPatient is on oral chemo Regorafenib after finishing infusion. We will follow-up with his oncologist. Updated his primary oncologist JANET versus CKDPatient's creatinine from outside lab is elevated not sure of the baseline pending oral labs. Have asked patient's primary oncologist as well for recent labs. If creatinine still elevated might conside r nephrology involvement Chronic CHF probably systolic patient states that he probably has systolic CHF not exactly sure. We will continue with Coreg Lasix. We will give extra dose of Lasix with blood transfusion HypertensionResume Coreg keep on as needed hydralazine BPHContinue with tamsulosin DVT prophylaxis with SCDsPatient is full codeDiscussed with patient the ED physician and the interventional radiologist urologist and patient's primary oncologist and patient's stepdad at the bedside Quality: Gen Me d Crit Care Current MedicationsCurrent medication review:I attest that the foregoing medication list in the medical record is true, accurate, an d complete to the best of my knowledge. 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 creatinine is around 2.9 at 0921 RPT #: [id number] OF REPORT HPHistory and physical [id number]:53:00L.[id number] 1 AVAvailable for patient [id number]:03:46 2023-06-13 09:16:00 [id number]:16:00 [facility] ([facility])EMERGENCY PROVIDER REPORTREPORT#:[id number] REPORT STATUS: SignedDATE:06/13/23 TIME:09 PATIENT: GENO PRASAD UNIT #: [id number]#: [id number] [address] [birth year] AGE : 57 SEX: M PCP PHYS: Seymour Sales MDSERVICE AUTHOR: Julio Munguia MD * ALL edits or amendments must be made on the electronic/computer document * HPI-General Illness GeneralConfirmed Patient YesInitial Gree t Date/Time 06/13/23 0855 PresentationChief Complaint __ (anemia, nephrostomy tube)Hx Obtained From Patient, IR Nurse Free Text HPI NotesFree Text HPI Ugbgj29-wbfz-swt male, past medical history of colon cancer on daily oral chemo, prior anemia, CHF, hypertension. Patient has his baseline rectal pain. Patientwas getting her nephrostomy tube changed, when he was found to be anemic the patient states that he has some mild generalized weakness identical to prior episodes of anemia for which she has gotten a blood transfusion. No cardiopulmonary symptoms, no other GI or symptoms, no fever, no focal neuro symptoms Denies the following- Blood thinner use (or additional blood thinner use if mentioned above)- Symptoms of hypovolemia/anemia beyond generalized- Melena or bleeding from any location Past Medical History - AdultStated Complaint NEPHROSTOMY TUBE REPLACEMENT, LOW HGBAllergiesCoded Allergies:No Known Allergies (01/25/23) Home MedicationsReported Medications[STIVARGA 40 MG TABS] TAMSULOSIN ER (FLOMAX) HYDROcodone/APAP (HYDROcodone/APAP 10/325) 1 TAB PO Q6H FUROSEMIDE (LASIX) 40 MG PO DAILY CARVEDILOL (COREG) 25 MG PO BID MEALS Review of Nursing Notes Rev avail, and agreeSmoking status for patients 13 years old or older: Unknown,if ever smoked Physical Exam Susy l SignsVital SignsFirst Documented: Result Date Time Pulse Ox 100 06/13 0855 B/P 131/84 06/13 0855 B/P Mean 99 06/13 0855 O2 Delivery Room air 06/13 0855 Temp 36.6 06/13 0855 Pulse 90 06/13 0855 Resp 18 06/13 0855 Last Documented: Result Date Time Pulse Ox 100 06/13 0855 B/P 131/84 06/13 0855 B/P Mean 99 06/13 0855 O2 Delivery Room air 06/13 0855 Temp 36.6 06/13 0855 Pulse 9 0 06/13 0855 Resp 18 06/13 0855 Review of Vital Signs Reviewed Free Text PE NotesFree Text PE NotesGI: Soft, non-distended, no TTP, no peritoneal findings, negative McBurney's, unremarkable ostomies x2 : no CVAT, deferred G U exam General: awake and alert, not toxic appearing, pale conjunctiva, unremarkable nephrostomy tube site ENT: pink mucosa, patent nares, MMM Cardiac: normal S1/S2, skin well perfused, unremarkable chest wall port Pulmonary : no respiratory distress, CTAB, no stridor Extremities: no acute deformities, appropriate ROM Interpretation Diagnostics Lab Results InterpretationResultsMicrobiology: Date/Time Procedure - Status Source Growth 06/13 09 MRSA Screen - ORD NASAL Re-Evaluation MDM Re-Evaluation/Progress #1Re-Eval Status Unchange d Free Text MDM NotesFree Text MDM NotesDifferential diagnosis includes but is not limited to the following diagnoses- Deficiency: iron, B12, folic acid- Chronic EtOH, malnutrition- Anemia of chronic disease, CKD- Hemorrhage- Primary bone marrow D/O: MDS, CA, aplastic anemia- Hemolysis Patient here with clinical picture most consistent with acute on chronic anemia. Also requiring chronic nephrostomy tube change - Qualified Health Professional: I discussed the case with the hospitalist. They agree with plan and admission to the floor. I also discussed the case with urology. Patient Discharge Departure Vital Signs/ConditionVital SignsFirst Documented: Result Date Time Pulse Ox 100 06/13 0855 B/P 131/84 06/13 0855 B/P Mean 99 06/13 0855 O2 Delivery Room air 06/13 0855 Temp 36.6 06/13 0855 Pulse 90 06/13 0855 Resp 18 08/2 9 0855 Last Documented: Result Date Time Pulse Ox 100 06/13 0855 B/P 131/84 06/13 0855 B/P Mean 99 06/13 0855 O2 Delivery Room air 06/13 0855 Temp 36.6 06/13 0855 Pulse 90 06/13 0855 Resp 18 08/2 9 0855 All vital signs available at the time of this entry have been reviewed. Clinical ImpressionClinical ImpressionPrimary Impression: AnemiaSecondary Impressions: NEPHROSTOMY TUBE PROBLEM Disposition DecisionHospitalize Hosp Physician Name Michel Rdz MD [facility] Physician Hospitalist Request Time 0916 Request Date 06/13/23 )( Accepts Hospitalization Yes )( Reaso n for Hospitalizationanemia )( Accepted Time 0917 )( Accepted Date 06/13/23 Call Information will see patient, agrees with eval, agrees with plan Discharge/Care PlanCounseled Regarding Diagnosis , Need for admission Critical CareTime Spent (minutes): 32Services Performed Patient management by me, Time spent at bedside, Reviewing test results, Reviewing imaging, Discussing patient care, Documentation in recordSeparately billable procedures excluded from time. at 1000 RPT #: [id number] OF REPORTFoundation Surgical Hospital of [facility] department [id number]:16:00L.[id number] a ilable for patient ohanJYPVCIPCYYRMAW0963-47-03L11:00:26 2022-09-01 11:09:00 [id number]:09:[id number] [facility] [place] of: [facility] [address] [place] [address] PATIENT NAME: GENO PRASAD ADMIT DATE: 09/01/22ACCOUNT NO: [id number] ROOM NO: MEDICA L RECORD NO: [id number] AGE: 57 REPORT TYPE: ePROGRESS NOTE RADIATION ONC SEX: M ADMITTING PHYSICIAN: ATTENDING PHYSICIAN:Tarsha Mancera MD Patient MR#: [id number] Date of Service: 09/01/2022atient Name: GENO PRASADPatient : 1965Patient MR#: [id number]: Tarsha Mancera M.D. Follow-Up NoteDiagnosis: C20 - malignant neoplas m of rectumNarrative: MR. PRASAD is a pauline 57 year old gentleman who returns forroutine follow-up since completing chemoradiation for locally advanced rectalcarcinoma in January 2022. He is using his colostomy without issues. Rare mucusseen from rectum. No nausea or neuropathy. He has three more cycles ofchemotherapy to finis h by late September. He anticipates surgery in November2021. Dr. Vargas s recent notes indicat e rising CEA, exact value not given.CTchest/abdomen/pelvis on 08/16/22 shows stable rectal mass measuring 4.3 x 3 x4.2 cm wit h no new adenopathy or distant metastases.Review o f Systems: No complaints pertaining to vision, hearing, mouth orthroat. Denies cardiovascular, respiratory, musculoskeletal, psychiatric orneurological complaints. No skin or allergy issues noted. Denies urinary orgastrointestinal complaints; colostomy. Denies unexplained weight loss. Performance Status: ECOG 0 Toxicities:Anorexia - None, Dermatitis radiation - none, Diarrhea - none, Erectiledysfunction - none, Fatigue - none, Hematuria - none, Lymphedema - none, Pelvicpain - none, Proctitis - none, Rectal fistula - none, Rectal mucositis - none,Rectal pain - none, Rectal ulcer - none, Urinary frequency - none, Urinaryincontinence - none, Urinary retention - none, Urinary tract pain - none,Urinary urgency - none, Weight loss - none. Physical Exam: Performed on 09/01/2022 10:45 AMBMI - 38.311 kg/m2 (high)-, Height - 70 in-, Weight - 267 lbs-, Fatigue - 0-,Pain - 0-, Temperature - 99 f-, Pulse - 95 /min- and O2 Sat - 99 %-.He is very pleasant and in no distress. Neurological exam is non-focal with CN PATIENT NAME: GENO PRASAD 2-12 grossly intact. Heart is RRR. Lungs CTA bilaterally. Abdomen soft andnon-tender, colostomy. Rectal exam deferred in view of recen t CT scan.Impression Recommendation: MR. PRASAD is clinically stable whilereceiving ongoing chemotherapy and radiographically stable with rectal tumorapproximately 4cm in maximum dimension. Return for follow-up in 4 months.End of Treatment Date: 01/2022 Sincerely, [facility]: Nasir Vargas M.D.[id number] [place] [address] - - Page 2 of 2 at 1114 PATIENT NAME: GENO PRASAD yprc9731-46-50Y55:09:[id number] lai serrano for patient wazmMYBNWQPBXGTLQN1746-89-70D07:14:23 2022-09-01 10:57:00 [id number]:57:[id number] [facility] [place] of: [facility] [address] [place] [address] PATIENT NAME: GENO PRASAD ADMIT DATE: 09/01/22ACCOUNT NO: [id number] ROOM NO: AGE: 57 REPORT TYPE: ePHYSICIAN ORDER RADIATION ONC SEX: M ADMITTING PHYSICIAN: ATTENDING PHYSICIAN:Tarsha Mancera MD PHYSICIAN ORDER SCAN SHEET Department of Radiation OncologyCore[facility] Gerber HospitalPhone fax Patient: JEFFREY PRASADB: 1965MR#: [id number]: Tarsha Tinoco : 2Referring Physician: Nasir Vargas M.D.Diagnosis: Primary C20 - Malignant neoplasm of rectum, Diagnosed 08/31/2021(Active) Stage IIIB, T3, N1, M0 Reason for Visit: ORDERING PHYSICIAN SIGNATURE: Electronically signed by Tarsha Mancera M.D. on09/15/2022 2:56:10 PM at 1456 PATIENT NAME: GENO PRASAD rxav7980-50-91K37:57:00Z.[id number] lai [facility] bgjzJPPFJDEZKONWLQ1888-96-50X02:56:31 2022-04-25 09:42:00 [id number]:42:[id number] [facility] [place] of: [place] [address] PATIENT NAME: GENO PRASAD ADMIT DATE: 04/25/22ACCOUNT NO: [id number] [facility] NO: [id number] AGE: 56 REPORT TYPE: ePHYSICIAN ORDER RADIATION ONC SEX: M ADMITTING PHYSICIAN: ATTENDING PHYSICIAN:Tarsha Mancera MD PHYSICIAN ORDER SCAN SHEET Department of Radiation OncologyCore[facility] Gerber HospitalPhone fax Patient: JEFFREY PRASADB: 1965MR#: [id number]: Tarsha Mancera M.D. : 2Referring Physician: Nasir Vargas M.D.Diagnosis: Primary C20 - Malignant neoplasm of rectum, Diagnosed 08/31/2021(Active) Stage IIIB, T3, N1, M0 Reason for Visit: ORDERING PHYSICIAN SIGNATURE: Electronically signed by Tarsha Mancera M.D. on04/25/2022 11:24:45 AM at 1124 PATIENT NAME: GENO PRASAD mgzy2370-58-48Z07:42:00Z.VFKA24272476-1004VXJyjx lai able for patient mugpNSVFSDQTEKQVPU9310-59-21V88:25:10 2022-04-25 09:40:00 [id number]:40:[id number] [facility] [place] of: [address] [address] PATIENT NAME: GNEO PRASAD ADMIT DATE: 04/25/22ACCOUNT NO: [id number] ROOM NO: [facility] RECORD NO: [id number] AGE: 56 REPORT TYPE: ePROGRESS NOTE RADIATION ONC SEX: M ADMITTING PHYSICIAN: ATTENDING PHYSICIAN:Tarsha Mancera MD Patient MR#: [id number] Date of Service: 04/25/2022atient Name: GENO PRASADPatient : 1965Patient MR#: [id number]: Snehal Mancera M.D. Follow-Up NoteDiagnosis: C20 - malignant neoplasm of rectum,Narrative: MR. PRASAD is a pauline 56 year old who returns for routinefollow-up since completing preop chemoradiation for locally advanced rectalcarcinoma 3 months ago. He continues on adjuvant chemotherapy with restagingscans planned for June. He denies abdominal pain, no nausea. Colostomy baghas no issues. He has rejoined a gym two weeks ago to resume exercise and feelsgood. 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 Pelvic MRI per Dr. Rox gramajoote to be done prior to surgery this Fall. Review of Systems: No complaints pertaining to vision, hearing, mouth orthroat. Denies cardiovascular, respiratory, musculoskeletal, psychiatric orneurological complaints. No skin or allergy issues noted. Denies urinary orgastrointestinal (colostomy) complaints. Denies unexplained weight loss. Performance Status: ECOG 0 Toxicities:Anorexia - None, Dermatitis radiation - none, Diarrhea - none, Erectiledysfunction - none, Fatigue - none , Hematuria - none, Lymphedema - none, Pelvicpain - none, Proctitis - none, Rectal fistula - none, Rectal mucositis - none,Rectal pain - none, Rectal ulcer - none, Urinary frequency - none, Urinaryincontinence - none, Urinary retention - none, Urinary tract pain - none,Urinary urgency - none, Weight loss - none. Physical Exam: Performed on 04/25/2022 9:35 AMBMI - 31.94 kg/m2 (high)-, Height - 70 in-, Weight - 222.6 lbs-, Fatigue - 0-,Pain - 0-, Temperature - 98 f-, Pulse - 76 /min-, O2 Sat - 100 %- and BP - 132/7 8 mm(hg) - ;. PATIENT NAME: GENO PRASAD He is very pleasant and in no distress. Neck examination is negative forcervical, supraclavicular or infraclavicular adenopathy bilaterally.Neurological exam is non-focal with CN 2-12 grossly intact. Heart is RRR.Lungs CTA bilaterally. Abdomen soft and non-tender, clean colostomy bag. Impression Recommendation: MR. PRASAD is clinically stable, receivingadjuvant chemotherapy with planned restaging imaging in the Fall before takes him for surgery. Advised vitami n B12 supplement for neuropathy. Sincerely, [facility]: Nasir Vargas M.D.[address] [place], [place] [address] - - Page 2 of 2 at 0933 PATIENT NAME: GENO PRASAD kgug0391-32-38S13:40:00Z.QBUL24999405-1370IOPeqn l able for patient vthkNDJPOTSCQRDVAI1471-49-39Y24:51:41 2022-01-31 11:41:00 [id number]:41:[id number] [facility] of: [place] [address] PATIENT NAME: GENO PRASAD ADMIT DATE: 01/14/22ACCOUNT NO: [id number] ROOM NO: MEDICA L RECORD NO: [id number] AGE: 56 REPORT TYPE: ePHYSICIAN ORDER RADIATION ONC SEX: M ADMITTING PHYSICIAN: ATTENDING PHYSICIAN:Tarsha Mancera MD PHYSICIAN ORDER SCAN SHEET Department of Radiation OncologyCorewell Health Gerber HospitalPhone Fax Patient: GENO PRASADDOB: 1965MR#: [id number]: Tarsha Mancera M.D. : 2Referring Physician: Nasir Vargas M.D.Diagnosis: Primary C20 - Malignant neoplasm of rectum, Diagnosed 08/31/2021(Active) Stage IIIB, T3, N1, M0 Reason for Visit: ORDERING PHYSICIAN SIGNATURE: Electronically signed by Tarsha Mancera M.D. on02/01/2022 10:25:38 AM at 1025 PATIENT NAME: GENO PRASAD ybum2207-43-87R42:41:00DayronSYCL27443371-7818JGMter l able for patient bumuBCFADLWJJPMHHH5574-52-78D53:26:03 2022-01-19 13:17:00 [id number]:17:[id number] [facility] [place] of: [place] [address] PATIENT NAME: GENO PRASAD ADMIT DATE: 01/14/22ACCOUNT NO: [id number] ROOM NO: MEDICA L RECORD NO: [id number] AGE: 56 REPORT TYPE: ePROGRESS NOTE RADIATION ONC SEX: M ADMITTING PHYSICIAN: ATTENDING PHYSICIAN:Tarsha Mancera MD Patient MR#: [id number] Date of Service: 01/19/2022atient Name: GENO PRASADPatient : 1965Patient MR#: [id number]: Snehal Mancera M.D. Weekly OTV NoteDiagnosis: C20 - Malignant neoplasm of rectum, Stage IIIB, T3, N1, E5Ozzriphdt Summary:Course: C1 Rectal + LN'sTreatment Site: Rectal + LN'sRef. ID: RectalEnergy: 6XDose/Fx (cGy): 180#Fx: 18 / 18Dose Correction (cGy): 0Total Dose (cGy): 3,240Start Date: 09/20/2021nd Date: 10/18/2021Elapsed Days: 28 Course: C1 Rectal + LN'sTreatment Site: RectalLNResimRef. ID: RectalEnergy: 6XDose/Fx (cGy): 200#Fx: 7 / 7Dose Correction (cGy): 0Total Dose (cGy): 1,400Start Date: 01/05/2022End Date: 01/14/2022Elapsed Days: 9 Course: C1 Rectal + LN'sTreatment Site: Rectal BoostRef. ID: Rectal BstEnergy: 6X PATIENT NAME: GENO PRASAD Dose/Fx (cGy): 250#Fx: 2 / 3Dose Correction (cGy): 0Tota l Dose (cGy): 500Start Date: 01/17/2022End Date: 01/18/2022Elapsed Days: 1 Narrative: No complaints.Toxicities: Anorexia - None, Dermatitis radiation - none, Diarrhea - none,Erectile dysfunction - none, Fatigue - none , Hematuria - none, Lymphedema -none, Pelvic pain - none, Proctitis - none, Rectal fistula - none, Rectalmucositis - none, Rectal pain - none, Rectal ulcer - none, Urinary frequency -none, Urinary incontinence - none, Urinary retention - none, Urinary tract pain- none, Urinary urgency - none, Weight loss - none.Physical Examination: Vital signs are Performed on 01/19/2022 1:08 PMBMI - 26.447 kg/m2 (high)-, Height - 72 in-, Weight - 195 lbs-, Fatigue - 0-,Pain - 0-, Temperature - 97.7 f-, Pulse - 77 /min-, Respiration - 16 /min-, O2Sat - 100 %- and BP - 114/ 74 mm(hg) - ;.. Patient is alert and oriented x 3,in no distress. Abdomen soft and non-tender with two ostomies. Lungs clearbilaterally. Heart RRR. Neurologic exam non-focal.Impression Recommendation: Mr. PRASAD is stable. Continue presentmanagement. See Dr. Tan for surgical plans after 4 weeks pelvic rest. RTCin 3 months.The patient s dosimetry treatment plan an d portal images have been reviewedandapproved without modification.Sincerely, [address] [place] [address] - - Page 2 of 2 at 1318 PATIENT NAME: GENO PRASAD e pqry7017-73-09H47:17:00Z.NRUW10020503-6728UBPbhs lai [facility] rufsMMORHPSRXYTRNQ5339-46-72J02:18:45 2021-12-31 14:52:00 [id number]:52:[id number] [facility] [place] of: [place] [address] PATIENT NAME: GENO PRASAD ADMIT DATE: 12/14/21ACCOUNT NO: [id number] ROOM NO: AGE: 56 REPORT TYPE: ePROCEDURE NOTE RADIATION ONC SEX: M ADMITTING PHYSICIAN: ATTENDING PHYSICIAN:Tarsha Mancera MD Patient MR#: <Patient Id 1> Date of Service: 12/31/2021atient Name: GENO PRASADPatient : 1965Patient MR# : [id number]: Tarsha Mancera M.D. Treatment Planning NotePhysician OrderType of Treatment Planning: ComplexDiagnosis: Rectal Adenocarcinoma C20 - Malignant neoplasm of rectum, StageIIIB, T3, N1, O5Xeblwnact Intent: CurativeTarget/Total Dose/Fraction Size: pelvic lymph nodes and recta l tumor 7fractions at 2Gy followed by rectal GTV boost for 3 fractions at 2.5Gy/fractionvia IMRT/IGRT 6X to make up the desired preop dose. He had a prolongedtreatment break but recent PET shows no tumor progression outside pelvis. Special Treatment Procedure: The patient s plan required additional physiciantime and effort because the patient will be treated with concurrentchemotherapy which required additional coordination and care for toxicity. Hewas also previously treated with IMRT to this site.Additional time and effort was spent for image fusion using Pet Scan forcustomized Tx PlanImaging Physics Instructions: Physics QA is required before the firstfraction. CBCT imaging for patient position and target localizationconfirmation before delivery of treatment is requested.MODALITY:___ 3D-32912/38814/58806/73282/07292/60292/14927/773 3 6/99216/77307__x_ IMRT-00801/44297/06968/77989/48026/79221/67977/7 7 336/06485/77386___ SRS/SBRT-81419/13128/61937/99808/29922/04578/773 3 6/59308/14251 Sincerely, PATIENT NAME: GENO PRASAD Page 2 of 2Electronically Signed and Approved by Tarsha Mancera M.D. 12/31/2021 2:56:50 PM at 1456 PATIENT NAME: GNEO PRASAD qkkl1307-75-85G27:52:00Z.ETNS49153016-6296CGWdlu lai able for patient vwxsUTUFKERUILZQFC2836-70-53G59:57:13 2021-12-31 14:24:00 [id number]:24:[id number] [facility] [place] of: [facility] [address] [place] [address] PATIENT NAME: GENO PRASAD ADMIT DATE: 12/14/21ACCOUNT NO: [id number] ROOM NO: AGE: 56 REPORT TYPE: ePROCEDURE NOTE RADIATION ONC SEX: M ADMITTING PHYSICIAN: ATTENDING PHYSICIAN:Snehal Mancera MD Patient MR#: [id number] Date of Service: 12/31/2021atient Name: GENO PRASADPatient : 1965Patient MR#: [id number]: Snehal Mancera M.D. NoteType of Simulation: ComplexPurpose: InitialDiagnosis: Rectal Adenocarcinoma C20 - Malignant neoplasm of rectum, StageIIIB, T3, N1, O9Kpfqxxpek Intent: CurativeHistory Summary: Staging pelvic CT scan was negative for randa or distantmetastases. The patient was referred for preoperative POMPOM MAKER with curativeintent.Procedure The patient was laid prone withOUT rectal marker with legs and pelvison belly board with ostomies in the aperture, scanned feet first. Lasersconfirmed the patient position before a CT of the pelvis was obtained at 2.5 mmslice thickness from L3 superiorly down to the inferio r aspect of theobturators. All images were reviewe d prior to tattooing the patient and havinghim com e off the table.Provisional plan for secondary sim : NoIV Contrast: None Sincerely, [address] [place], [place] [address] - - Page 1 of 1 at 1452 PATIENT NAME: GENO PRASAD vdze0382-70-84V77:24:00Z.XWWE59474543-2767WVNmsz lai [facility] jrogVEDEPJBVFCOPYE3040-14-71P18:53:12 2021-12-31 14:13:00 [id number]:13:[id number] [facility] [place] of: [facility] [address] [place] [address] PATIENT NAME: GENO PRASAD ADMIT DATE: 12/14/21ACCOUNT NO: [id number] ROOM NO: MEDICA L RECORD NO: [id number] AGE: 56 REPORT TYPE: ePHYSICIAN ORDER RADIATION ONC SEX: M ADMITTING PHYSICIAN: ATTENDING PHYSICIAN:Tarsha Mancera MD PHYSICIAN ORDER SCAN SHEET Department of Radiation OncologyCore[facility] Gerber HospitalPhone fax Patient: GENO PRASADDOB: 1965MR#: [id number]: Tarsha Mancera M.D. : 2Referring Physician: Nasir Vargas M.D.Diagnosis: Primary C20 - Malignant neoplasm of rectum, Diagnosed 08/31/2021(Active) Stage IIIB, T3, N1, M0 Reason for Visit: C1 Rectal + LN's (Plan ID - Rectal + LN's) - Rx Dose 4,500cGy (Status -Treatment Approved) - 18 25C1 Rectal + LN's (Plan ID - Rectum Boost) - Rx Dose 540cGy (Status - TreatmentApproved) - 0 / 3C1 Rectal + LN's (Plan ID - Rectum Boost1) - Rx Dose 750cGy (Status -Unapproved) - 0 / 3C1 Rectal + LN's (Plan ID - Rectal+LN18fx) - Rx Dose 3,240cGy (Status -Unapproved) - 0 / 18C1 Rectal + LN's (Plan ID - Rectal+LN7fx) - Rx Dose 1,750cGy (Status -Unapproved) - 0 7 PATIENT NAME: GENO PRASAD ORDERING PHYSICIAN SIGNATURE: Electronically signed by Tarsha Mancera M.D. on01/03/2022 11:33:11 AM at 1133 PATIENT NAME: GENO PRASAD tgbm5680-49-13G86:13:00Z.DDNY66675041-6651CUBcdo lai able for patient tydqMAUTAOKNXNTNZR1964-45-18E84:33:40 2021-12-31 14:12:00 [id number]:12:[id number] [facility] [place] [facility] [place] of: [address] [address] PATIENT NAME: GENO PRASAD ADMIT DATE: 12/14/21ACCOUNT NO: [id number] [facility] NO: [id number] AGE: 56 REPORT TYPE: ePROCEDURE NOTE RADIATION ONC SEX: M ADMITTING PHYSICIAN: ATTENDING PHYSICIAN:Tarsha Mancera MD Patient MR#: [id number] PHYSICIAN CT SIMULATION ORDER Date of Service: 12/31/2021atient Name: GENO PRASADPatient : 1965Patient MR# : [id number] Oncologist: Tarsha Mancera M.D. _ DIAGNOS I S AND STAGING DIAGNOSIS: Primary C20 - Malignant neoplasm of rectum, Diagnosed 08/31/2021(Active) TREATMENT INTENT: _ GENERAL MEDICAL NECESSITY Simulation was necessary for preparation of radiation therapy to obtain CTimages in treatment position, ozzy patient wit h external fiducials anddetermine treatment isocenter for future image verification. TYPE OF TREATMENT: PATIENT ORIENTATION: PATIENT POSITIONING: _ TARGET DOSE ANATOMICAL SITE: RECTUM/PELVIS LATERALITY: PATIENT DIRECTIVES: ORGAN MOTION REQUIRED: RX PLANNING MODALITIES: Other: MODALITY: ENERGIES: FRACTIONS: OTHER: 7 PATIENT NAME: GENO PRASAD BOOST ENERGIES: BOOST FRACTIONS: OTHER: SPECIAL TREATMENT PROCEDURE: STP MEDICAL NECESSITY: The final prescription reflecting the treatment parameters, i.e.fractionations, energy, beam arrangement and total dose will be provided on theprescription document in the electronic medical record upon completion and myevaluation of the requested dosimetry. IMAGING ORDERS WEEKLY PORT FILMS: VIRTUAL SIM: DAILY CBCT:Medical necessity: CBCT is needed to verify target and organs at risk (OAR)are adequately included or protected. DAILY KV/KV FILMS ONLY: MV IMAGING MATCHING BONY ANATOMY: OTHER: _ EXTREMITY POSITIONING Upper Extremity: Other: Lower Extremity: Other: Knee Sponge: _ IMMOBILIZATI O N DEVICES HEAD SUPPORT: Clear Milan: Spongy [place]: [place] Arch:Accuform: Pillow: Prone Head Angl e UNDER PATIENT: None: Full Pad: Half Pad: Sheet: Other: Vak Julio: Other: Aquaplast: Chabner Bra: Belly Board: S Board: Wing Board with Ext.: , Indexed at: Breast Board Headrest: Breast Board Angle: Breast Board Hip Stopper: Prone Breast Board: Shoulder Restraints WB: Shoulder Restraints:BB: Indexed: Device: Indexed: Device: _ OTHER PARAMETERS CONTRAST: MISC.: Other: DENTAL: MARKERS: Other: PATIENT NAME: GENO PRASAD WEEKLY PHYSICS CHECK: ADDITIONAL PHYSICIAN NOTES: THERAPIST SET UP SUMMARY: Prone on Belly Board FEET FIRST, IDX @ F2, Pillow tohead/chest, knee sponge to feet Pag e 2 of [id number] Electronically Signed and Approved by Tarsha Mancera M.D. 12/31/2021 2:40:03 PM at 1440 PATIENT NAME: GENO PRASAD fhum4875-36-31C60:12:00Z.RYZS86583587-6949ZIDdlb l able for patient dxzkYBGLPFYRAJMOHE0286-80-58G89:40:30 2021-12-31 13:45:00 [id number]:45:[id number] [facility] [place] of: [place] [address] PATIENT NAME: GENO PRASAD ADMIT DATE: 12/14/21ACCOUNT NO: [id number] ROOM NO: MEDIC L RECORD NO: [id number] AGE: 56 REPORT TYPE: ePROGRESS NOTE RADIATION ONC SEX: M ADMITTING PHYSICIAN: ATTENDING PHYSICIAN:Tarsha Mancera MD Patient MR#: [id number] Date of Service: 12/31/2021atient Name: GENO PRASADPatient : 1965Patient MR#: [id number]: Snehal Mancera M.D. Follow-Up NoteDiagnosis: C20 - malignant neoplasm of rectum,Narrative: MR. PRASAD is a 56 year old who returns after prolongedtreatment break due t o perforated bowel during pelvic chemoradiation therapy.His course is as follows but he needs to finish pelvic dose, seeing that he isnot metastastic (recent PET after hospitalization shows rectal tumor but nodistant metastases). PE T scan 12/21/2021:Review of Systems: No complaints pertaining to vision, hearing, mouth orthroat. Two ostomies on abdomen. Denies cardiovascular, respiratory,musculoskeletal, psychiatric or neurological complaints. No skin or allergyissue s noted. Denies urinary complaints. Denies unexplained weight loss. Performance Status: ECO G 1 Toxicities:The following toxicities were assessed as a 1:Fatigue - Fatigue relieved by rest, Pain - mild pain, Weight loss - 5 to <10%from baseline; intervention not indicated. Anorexia - None, Dermatitis radiation - none, Diarrhea - none, Dyspepsia -none, Nausea - none, Vomiting - none. Physical Exam: He is very pleasant and in no distress. Neurological exam isnon-focal with CN 2-12 grossly intact. Heart i s RRR. Lungs CTA bilaterally.Abdomen soft and non-tender with two ostomies. Impression Recommendation: MR. PRASAD is here to resume preopchemoradiation therapy after a prolonged treatment break. CT simulation today, PATIENT NAME: GENO PRASAD fuse with recent PET and start dagoberto to complete 2 weeks of IMRT. Sincerely, [facility]: Nasir Vargas M.D.[address] [place] [address] - - Page 2 of 2 at 1352 PATIENT NAME: GENO PRASAD umve3806-66-35Z39:45:[id number] lai serrano for patient rrkqJENWKVLEYEGPMD7366-78-70A00:52:35 2021-12-30 10:29:00 [id number]:29:[id number] [facility] [place] of: [facility] [address] [place] [address] PATIENT NAME: GENO PRASAD ADMIT DATE: 12/14/21ACCOUNT NO: [id number] ROOM NO: [facility] RECORD NO: [id number] AGE: 56 REPORT TYPE: ePHYSICIAN ORDER RADIATION ONC SEX: M ADMITTING PHYSICIAN: ATTENDING PHYSICIAN:Tarsha Mancera MD PHYSICIAN ORDER SCAN SHEET Department of Radiation OncologyCore[facility] Gerber HospitalPhone fax Patient: GENO PRASADDOB: 1965MR#: [id number]: Tarsha Mancera M.D. : 2Referring Physician:Diagnosis: Primary C20 - Malignant neoplasm of rectum, Diagnosed 08/31/2021(Active) Stage IIIB, T3, N1, M0 Reason for Visit: C1 Rectal + LN's (Plan ID - Rectal + LN's) - Rx Dos e 4,500cGy (Status -Treatment Approved) - 18 25C 1 Rectal + LN's (Plan ID - Rectum Boost) - Rx Dose 540cGy (Status - TreatmentApproved) - 0 / 3C1 Rectal + LN's (Plan ID - Rectum Boost1) - Rx Dos e 750cGy (Status -Unapproved) - 0 / 3C1 Rectal + LN's (Plan ID - Rectal+LN18fx) - Rx Dose 3,240cG y (Status -Unapproved) - 0 / 18C1 Rectal + LN's (Plan ID - Rectal+LN7fx) - Rx Dose 1,750cGy (Status -Unapproved) - 0 7 PATIENT NAME: GENO PRASAD ORDERING PHYSICIAN SIGNATURE: Electronically signed by Tarsha Mancera M.D. on12/31/2021 9:01:27 AM at 0901 PATIENT NAME: GENO PRASAD fhiy0779-53-51O53:29:00Z.KJWM92535033-0153KVTiaf l [facility] nezmSQYWLUFEHIUYOX5453-09-11Q02:01:50 2021-12-14 15:13:00 [id number]:13:[id number] [facility] of: [facility] [address] [place] [address] PATIENT NAME: GENO PRASAD ADMIT DATE: 12/14/21ACCOUNT NO: [id number] [facility] REC[facility] NO: [id number] AGE: 56 REPORT TYPE: ePHYSICIAN ORDER RADIATION ONC SEX: M ADMITTING PHYSICIAN: ATTENDING PHYSICIAN:Tarsha Mancera MD PHYSICIAN ORDER SCAN SHEET Department of Radiation OncologyCore[facility] Gerber HospitalPhone Fax Patient: GENO PRASADDOB: 1965MR#: [id number]: Tarsha Mancera M.D. : 2Referring Physician:Diagnosis: Primary C20 - Malignant neoplasm of rectum, Diagnosed 08/31/2021(Active) Stage IIIB, T3, N1, M0 Reason for Visit: C1 Rectal + LN's (Plan ID - Rectal + LN's) - Rx Dos e 4,500cGy (Status -Treatment Approved) - C 1 Rectal + LN's (Plan ID - Rectum Boost) - Rx Dose 540cGy (Status - TreatmentApproved) - 0 ORDERING PHYSICIAN SIGNATURE: Electronically signed by Tarsha Mancera M.D. on12/15/2021 10:45:10 AM PATIENT NAME: GENO PRASAD at 1045 PATIENT NAME: GENO PRASAD umww7273-70-28Y00:13:00DayronYHAF07855129-2742ZRZzgx l able for patient wbamSJBFKPAGHIJYFJ1497-87-98O57:45:34 2021-12-14 14:59:00 [id number]:59:[id number] [facility] [facility] [address] [place] [address] PATIENT NAME: GENO PRASAD ADMIT DATE: 12/14/21ACCOUNT NO: [id number] ROOM NO: RODOLFO Hoyt RECORD NO: [id number] AGE: 56 REPORT TYPE: ePROGRESS NOTE RADIATION ONC SEX: M ADMITTING PHYSICIAN: ATTENDING PHYSICIAN:Tarsha Mancera MD Patient MR#: [id number] Date of Service: 12/14/2021atient Name: GENO PRASADPatient : 1965Patient MR#: [id number]: Snehal Mancera M.D. Follow-Up NoteDiagnosis: C20 - malignant neoplasm of rectum,Narrative: MR. PRASAD is a 56 year old who returns after nearly 2 monthinpatient break from preop chemoradiation for a locally advanced rectal cancer.He was treated for bowel perforation at [facility] by surgeon Dr. Yolande Li Jackson. Mr. Conway has two ostomies now and is experiencing mucusfrom the recto-anal stump. He is pain-free and not on antibiotics. Hisinpatient records have not been received to review.IMRT dose: 32.4 Gy received, last dose was on 10/18/21.Review of Systems: No complaints pertaining to vision, hearing, mouth orthroat. Denies cardiovascular, respiratory, musculoskeletal, psychiatric orneurological complaints. No skin or allergy issues noted. Denies urinarycomplaints. Denies unexplained weight loss. Two ostomies after bowelsurgeries. Performance Status: ECOG 1 Toxicities:The following toxicities were assessed as a 1:Fatigu e - Fatigue relieved by rest, Pain - mild pain, Weight loss - 5 to <10%from baseline; intervention not indicated. Anorexia - None, Dermatitis radiation - none, Diarrhea - none, Dyspepsia -none, Nausea - none, Vomiting - none. Physical Exam: Performed on 12/14/2021 2:45 PMBMI - 25.009 kg/m2 (high)-, Height - 72 in-, Weight - 184.4 lbs-, Fatigue - 0-,Pain - 0-, Temperature - 98.6 f-, Pulse - 83 /min-, Respiration - 16 /min-, O2Sat - 100 %- and BP - 145/ 89 mm(hg)(high/) - ;.He is very pleasant and in no distress. Neurological exam is non-focal with CN2-12 grossly intact. Heart is RRR. Lungs CTA bilaterally. Abdomen soft and PATIENT NAME: GENO PRASAD non-tender with two ostomies on either side of lower abdomen. Rectal examdeferred (tumor is far above reach). Impression Recommendation: MR. PRASAD received 30Gy of radiation priorto hospitalization. I discussed his case with Dr. Vargas and we agreed toorder a PET scan for restaging and discuss next steps with [facility] surgeon. [facility] Sincerely, [facility]c: Ayo Raymundo M.D.[address] [place] [address] - - Page 2 of 2 at 8515 PATIENT NAME: GENO PRASAD hosg4211-75-75L41:59:00Z.[id number] lai able for patient dczwQMAIYCAAFPCUIE6570-01-50M52:05:18 2021-11-08 11:05:00 [id number]:05:[id number] [facility] [address] of: [place] [address] PATIENT NAME: GENO PRAASD ADMIT DATE: 10/18/21ACCOUNT NO: [id number] ROOM NO: MEDICA L RECORD NO: [id number] AGE: 56 REPORT TYPE: ePHYSICIAN ORDER RADIATION ONC SEX: M ADMITTING PHYSICIAN: ATTENDING PHYSICIAN:Tarsha Mancera MD PHYSICIAN ORDER SCAN SHEET Department of Radiation OncologyCorewell Health Gerber HospitalPhone Fax Patient: GENO PRASADDOB: 1965MR#: [id number]: Tarsha Mancera M.D. : 2Referring Physician: TANIA LEDEZMAiagnosis: Primary C20 - Malignant neoplasm of rectum, Diagnosed 08/31/2021(Active) Stage IIIB, T3, N1, M0 Reason for Visit: C1 Rectal + LN's (Plan ID - Rectal + LN's) - Rx Dos e 4,500cGy (Status -Treatment Approved) - C 1 Rectal + LN's (Plan ID - Rectum Boost) - Rx Dose 540cGy (Status - TreatmentApproved) - ORDERING PHYSICIAN SIGNATURE: Electronically signed by Tarsha Mancera M.D. on11/08/2021 12:28:36 PM PATIENT NAME: GEON PRASAD at 1228 PATIENT NAME: GENO PRASAD uwej3862-04-05Y47:05:00Z.[id number] lai [facility] patient ambjKFXBWXZYLQYMAB6896-91-89S00:28:56 2021-10-14 13:37:00 [id number]:37:[id number] [facility] [address] of: [place] [address] PATIENT NAME: GENO PRASAD ADMIT DATE: ACCOUNT NO: [id number] ROOM NO: AGE: 56 REPORT TYPE: ePROCEDURE NOTE RADIATION ONC SEX: M ADMITTING PHYSICIAN: ATTENDING PHYSICIAN:Tarsha Mancera MD Date of Service: 10/14/2021atient Name: GENO PRASADPatient : 1965Patient MR#: [id number]: Tarsha Mancera M.D. Treatment Planning NotePhysician OrderType of Treatment Planning: ComplexDiagnosis: Rectal Adenocarcinoma C20 - Malignant neoplasm of rectum, StageIIIB, T3, N1, N4Mlkbknkfx Intent: CurativeTarget/Total Dose/Fraction Size: rectal tumor- gross tumor boost, 5.4 Gy in 1.8Gy daily fractions, 3 fx 6X VMAT/IGRTSpecial Treatment Procedure: The radha t s plan required additional physiciantime and effort due to use of VMAT which required contouring of normalstructures as well as CTV an d evaluation of comparative DVH graphs. I reviewedseveral plans prior to achieving an adequate plan with optimal PTV coveragewhile respecting normal surrounding structures including bladder, bowel andfemoral heads. The patient will also be treated with concurrent chemotherapywhich required additional coordination and care for toxicity.Additional time and effort was spent for image fusion using Pet Scan forcustomized Tx PlanImaging Physics Instructions: Physics QA is required before the firstfraction. CBCT imaging for patient position and target localizationconfirmation before delivery of treatment is requested.MODALITY:___ 3D-16655/07990/09343/02954/80464/77293___ IMRT-49322/54483/66207/24234/59450/27838/77293__ _ SRS/SBRT-11398/23453/77369/51058/64457/45734 Sincerely, Electronically Signed and Approved by Tarsha Mancera M.D. 10/14/2021 1:38:10 PM at 1338 PATIENT NAME: GENO PRASAD kfrs5187-74-27S78:37:00Z.[id number] l able for patient meriTZKZTGJKQFMQHM8805-72-63T75:49:12 2021-10-14 13:36:00 [id number]:36:[id number] [facility] [place] of: [address] [address] PATIENT NAME: GENO PRASAD ADMIT DATE: ACCOUNT NO: [id number] ROOM NO: AGE: 56 REPORT TYPE: ePROCEDURE NOTE RADIATION ONC SEX: M ADMITTING PHYSICIAN: ATTENDING PHYSICIAN:Tarsha Mancera MD Date of Service: 10/14/2021atient Name: GENO PRASADPatient : 1965Patient MR#: [id number]: Tarsha Mancera M.D. NoteType of Simulation: ComplexPurpose: BoostDiagnosis: Rectal Adenocarcinoma C20 - Malignant neoplasm o f rectum, IIIB, T3,N1, W4Tewodndiu Intent: CurativeHistory Summary: He is here for resim fo r rectal tumor boost, he is nearly donewith pelvic plan inclusive of lymph nodes.Procedure The patient was laid supine with rectal marker (radioopaque BB) placedat inferior edge of tumor with legs and pelvis in a customized Vac-Loc cradlefor immobilization. Lasers confirmed the patient position before a CT of thepelvis was obtained at 2.5 mm slice thickness from L3 superiorly down to theinferior aspect of the obturators.IV Contrast: None Sincerely, at 1337 PATIENT NAME: GENO PRASAD akda5887-86-89F31:36:00Z.[id number] lai able for patient qrxkWEGXJVXXPVELKS3707-50-66E04:47:12 2021-10-13 13:52:00 [id number]:52:[id number] [facility] [address] of: [place] [address] PATIENT NAME: GENO PRASAD ADMIT DATE: ACCOUNT NO: [id number] ROOM NO: AGE: 56 REPORT TYPE: ePROGRESS NOTE RADIATION ONC SEX: M ADMITTING PHYSICIAN: ATTENDING PHYSICIAN:Tarsha Mancera MD Date of Service: 10/13/2021atient Name: GENO PRASADPatient : 1965Patient MR#: [id number]: Tarsha Mancera M.D. Weekly OTV NoteDiagnosis: C20 - Malignant neoplasm of rectum, Stage IIIB, T3, N1, N6Apphvbgrn Summary:Course: C1 Rectal + LN'sTreatment Site: Rectal + LN'sRef. ID: RectalEnergy: 6XDose/Fx (cGy): 180#Fx: 15 / 25Dose Correction (cGy): 0Total Dose (cGy): 2,700Start Date: 09/20/2021nd Date: 10/12/2021lapsed Days: 22 Narrative: Loose bowels.Toxicities: The following toxicities were assessed as a 2:Diarrhea - Increase of 4 - 6 stools per day over baseline; moderate increase inostomy output compared to baseline, Proctitis - symptoms (e.g., rectaldiscomfort, passing blood or mucus); medical intervention indicated; limitinginstrumental ADL.The following toxicitie s were assessed as a 1:Erectile dysfunction - Decrease in erectile function (frequency or rigidity oferections) but intervention not indicated (e.g., medication or use ofmechanical device, penile pump), Fatigue - fatigue relieved by rest, Rectalmucositis - asymptomatic or mild symptoms; intervention not indicated, Rectalpain - mild pain. Anorexia - None, Dermatitis radiation - none, Hematuria - none, Lymphedema -none, Pelvic pain - none, Rectal fistula - none , Rectal ulcer - none, Urinaryfrequency - none, Urinary incontinence - none, Urinary retention - none,Urinary tract pain - none, Urinary urgency - none, Weight loss - none.Physical Examination: Vital signs are Performed on 10/13/2021 1:35 PMBMI - 28.454 kg/m2 (high)-, Height - 72 in-, Weight - 209.8 lbs-, Fatigue - 0-, PATIENT NAME: GENO PRASAD Pain - 4-, Temperature - 98.1 f-, Pulse - 99 /min-, O2 Sat - 99 %- and BP -122/ 72 mm(hg) - ;.. Patient is alert and oriented x 3, in no distress.Abdomen soft and non-tender. Lungs clear bilaterally. Heart RRR. Neurologicexam non-focal.Impression Recommendation: MR. PRASAD is stable. Continue presentmanagement. Use Imodium as instructed.The patient s dosimetry treatment plan and portal images have been reviewed andapproved without modification.Sincerely, at 1353 PATIENT NAME: GENO PRASAD ckrw3874-48-84K13:52:00Z.[id number] l able for patient smiqJAKOVDYZOCKNYM0847-58-96R23:13:39 2021-10-06 14:39:00 [id number]:39:[id number] [facility] [address] of: [place] [address] PATIENT NAME: GENO PRASAD ADMIT DATE: ACCOUNT NO: [id number] ROOM NO: AGE: 56 REPORT TYPE: ePROGRESS NOTE RADIATION ONC SEX: M ADMITTING PHYSICIAN: ATTENDING PHYSICIAN:Tarsha Mancera MD Date of Service: 10/06/2021atient Name: GENO PRASADPatient : 1965Patient MR#: [id number]: Kenzie Sosa M.D. Weekly OTV NoteDiagnosis: C20 - Malignant neoplasm of rectum, Diagnosed 08/31/2021 (Active)Stage IIIB, T3, N1, U7Ahonnmnff Summary:Course: C1 Rectal + LN'sTreatment Site: Rectal + LN'sRef. ID: RectalEnergy: 6XDose/Fx (cGy): 180#Fx: Dose Correction (cGy): 0Total Dose (cGy): 2,160Start Date: 09/20/2021nd Date: 10/06/2021lapsed Days: 16 Narrative: continues to have diarrhea up to 5x daily. On lomotil 1 ta b BID.Reports left lower quadrant discomfort.Toxicities: The following toxicities were assessed as a 2:Diarrhea - Increase of 4 - 6 stools per day over baseline; moderate increase inostomy output compared to baseline, Proctitis - symptoms (e.g., rectaldiscomfort, passing blood or mucus); medical intervention indicated; limitinginstrumental ADL.The following toxicitie s were assessed as a 1:Erectile dysfunction - Decrease in erectile function (frequency or rigidity oferections) but intervention not indicated (e.g., medication or use ofmechanical device, penile pump), Fatigue - fatigue relieved by rest, Rectalmucositis - asymptomatic or mild symptoms; intervention not indicated, Rectalpain - mild pain. Anorexia - None, Dermatitis radiation - none, Hematuria - none, Lymphedema -none, Pelvic pain - none, Rectal fistula - none , Rectal ulcer - none, Urinaryfrequency - none, Urinary incontinence - none, Urinary retention - none,Urinary tract pain - none, Urinary urgency - none, Weight loss - none. PATIENT NAME: GENO PRASAD Physical Examination: Vital signs are Performed on 10/06/2021 1:46 PMBMI - 29.349 kg/m2 (high)-, Height - 72 in-, Weight - 216.4 lbs-, Fatigue - 0-,Pain - 2-, Temperature - 97 f-, Pulse - 77 /min-, O2 Sat - 99 %- and BP - 127/80 mm(hg) - ;.. Patient is alert and oriented x 3, in no distress. Abdomensoft and mildly tender in the LLQ, no palpable massesImpression Recommendation : Aftab PRASAD is stable. Continue present management.Prescription given for Lomotil 2 tabs BID, monitor abdominal discomfort.The patient s dosimetry treatment plan and portal images have been reviewed andapproved without modification.Sincerely, at 1441 PATIENT NAME: GENO PRASAD qomj1225-76-50Q84:39:00Z.[id number] lai able for patient mgftBROYRYHKRSSINW3157-62-21R84:43:48 2021-10-06 14:39:00 [id number]:39:[id number] [facility] [address] of: [place] [address] PATIENT NAME: GENO PRASAD ADMIT DATE: 10/18/21ACCOUNT NO: [id number] ROOM NO: RODOLFO Hoyt RECORD NO: [id number] AGE: 56 REPORT TYPE: ePROGRESS NOTE RADIATION ONC SEX: M ADMITTING PHYSICIAN: ATTENDING PHYSICIAN:Tarsha Mancera MD Patient MR#: [id number] Date of Service: 10/06/2021atient Name: GENO PRASADPatient : 1965Patient MR#: [id number]: Kenzie Sosa M.D. Weekly OTV NoteDiagnosis: C20 - Malignant neoplasm of rectum, Diagnosed 08/31/2021 (Active)Stage IIIB, T3, N1, Y1Ltrjotgoc Summary:Course: C1 Rectal + LN'sTreatment Site: Rectal + LN'sRef. ID: RectalEnergy: 6XDose/Fx (cGy): 180#Fx: 25Dose Correction (cGy): 0Total Dose (cGy): 2,160Start Date: 09/20/2021nd Date: 10/06/2021lapsed Days: 16 Narrative: continues to have diarrhea up to 5x daily. On lomotil 1 tab BID.Reports left lower quadrant discomfort.Toxicities: The following toxicities were assessed as a 2:Diarrhea - Increase of 4 - 6 stools per day over baseline; moderate increase inostomy output compared to baseline, Proctitis - symptoms (e.g., rectaldiscomfort, passing blood or mucus); medical intervention indicated; limitinginstrumental ADL.The following toxicitie s were assessed as a 1:Erectile dysfunction - Decrease in erectile function (frequency or rigidity oferections) but intervention not indicated (e.g., medication or use ofmechanical device, penile pump), Fatigue - fatigue relieved by rest, Rectalmucositis - asymptomatic or mild symptoms; intervention not indicated, Rectalpain - mild pain. Anorexia - None, Dermatitis radiation - none, Hematuria - none, Lymphedema - PATIENT NAME: GENO PRASAD none, Pelvic pain - none, Rectal fistula - none, Rectal ulcer - none, Urinaryfrequency - none, Urinary incontinence - none, Urinary retention - none,Urinary tract elen n - none, Urinary urgency - none, Weight loss - none.Physical Examination: Vital signs are Performed on 10/06/2021 1:46 PMBMI - 29.349 kg/m 2 (high)-, Height - 72 in-, Weight - 216.4 lbs-, Fatigue - 0-,Pain - 2-, Temperature - 97 f-, Pulse - 77 /min-, O2 Sat - 99 %- and BP - 127/80 mm(hg) - ;.. Patient is alert and oriented x 3, in no distress. Abdomensoft and mildly tender in the LLQ, no palpable massesImpression Recommendation: Aftab PRASAD is stable. Continue presentmanagement. Prescription given for Lomoti l 2 tabs BID, monitor abdominaldiscomfort.The patient s dosimetry treatment plan and portal images have been reviewedandapproved without modification.Sincerely, [id number] [place] [address] - - Page 2 of 2 at 1441 PATIENT NAME: GENO PRASAD ngeo2121-58-36J39:39:00Z.[id number] lai able for patient tjybQTZYEELCXBZULR6284-29-93S04:09:30 2021-09-22 13:55:00 [id number]:55:[id number] [facility] [address] of: [place] [address] PATIENT NAME: GENO PRASAD ADMIT DATE: ACCOUNT NO: [id number] ROOM NO: AGE: 56 REPORT TYPE: ePROGRESS NOTE RADIATION ONC SEX: M ADMITTING PHYSICIAN: ATTENDING PHYSICIAN:Tarsha Mancera MD Date of Service: 1Patient Name: GENO PRASADPatient : 1965Patient MR#: [id number]: Tarsha Mancera M.D. Weekly OTV NoteDiagnosis: C20 - Malignant neoplasm of rectum, Stage IIIB, T3, N1, W2Kvzjrsgvt Summary:Course: C1 Rectal + LN'sTreatment Site: Rectal + LN'sRef. ID: RectalEnergy: 6XDose/Fx (cGy): 180#Fx: 2 / 25Dos e Correction (cGy): 0Total Dose (cGy): 360Start Date: 09/20/2021nd Date: 09/21/2021lapsed Days: 1 Narrative: No complaints.Toxicities: The following toxicities were assessed as a 1:Erectile dysfunction - Decrease in erectile function (frequency or rigidity oferections) but intervention not indicated (e.g., medication or use ofmechanical device, penile pump). Anorexia - None, Dermatitis radiation - none, Diarrhea - none, Fatigue - none,Hematuria - none, Lymphedem a - none, Pelvic pain - none, Proctitis - none,Rectal fistula - none, Rectal mucositis - none, Rectal pain - none, Rectalulcer - none, Urinary frequency - none, Urinary incontinence - none, Urinaryretention - none, Urinary tract elen n - none, Urinary urgency - none, Weightloss - none.Physical Examination: Vital signs are Performed on 09/22/2021 1:33 PMBMI - 29.566 kg/m2 (high)-, Height - 72 in-, Weight - 218 lbs-, Fatigue - 0-,Pain - 0-, Temperature - 97.9 f-, Pulse - 79 /min-, O2 Sat - 100 %- and BP -144/ 9 0 mm(hg)(high/) - ;.. Patient is alert and oriente d x 3, in no distress.Abdomen soft and nontender. Lungs clear bilaterally. Heart RRR. Neurologicexam nonfocal.Impression Recommendation: MR. PRASAD is stable. Continue present PATIENT NAME: GENO PRASAD management. Contact Dr. Vargas about concurrent chemotherapy.The patient s dosimetry treatment plan and portal images have been reviewed andapproved without modification.Sincerely, at 1356 PATIENT NAME: GENO PRASAD gtsp9037-61-73G72:55:00Z.[id number] lai able for patient ooxoREXFQGKMPBLXYM3100-43-63R54:03:45 2021-09-20 10:38:00 [id number]:38:[id number] [facility] [place]: [place] [address] PATIENT NAME: GENO PRASAD ADMIT DATE: ACCOUNT NO: [id number] ROOM NO: AGE: 56 REPORT TYPE: ePROGRESS NOTE RADIATION ONC SEX: M ADMITTING PHYSICIAN: ATTENDING PHYSICIAN:Tarsha Mancera MD Date of Service: 09/20/2021atient Name: GENO PRASADPatient : 1965Patient MR#: [id number]: Tarsha Mancera M.D. See on Treatment/Block [facility] k NotesDiagnosis: C20 - Malignant neoplasm of rectum, Stage IIIB, T3, N1, B2Uqervdezx: Simple simulation on the first day of treatmentNarrative: GENO PRASAD was taken to the treatment room and laid supine in thepreviously fabricated immobilization device. Lasers confirmed alignment andimages were obtained and the patient set up very accurately. Treatment planwith films were reviewed and approved. I authorized and was present fordelivery of the first fraction. Sincerely, at 1038 PATIENT NAME: GENO PRASAD e kyfj9335-71-38F75:38:00Z.[id number] lai able for patient klvjXPPJLSRBGPVSOY2899-79-90W54:41:25 2021-09-08 08:45:00 [id number]:45:[id number] [facility] [place] of: [place] [id number] PATIENT NAME: GENO PRASAD ADMIT DATE: 09/02/21ACCOUNT NO: [id number] ROOM NO: MEDICA L RECORD NO: [id number] AGE: 56 REPORT TYPE: ePHYSICIAN ORDER RADIATION ONC SEX: M ADMITTING PHYSICIAN: ATTENDING PHYSICIAN:Tarsha Mancera MD Department of Radiation OncologyMyMichigan Medical Center SaultPhone Fax Patient: GENO PRASADDOB: 1965MR#: [id number]: Tarsha Mancera M.D. : 1Referring Physician: TANIA LEDEZMAiagnosis: Primary C20 - Malignant neoplasm of rectum, Diagnosed 08/31/2021(Active) Stage IIIB, T3, N1, M0 Reason for Visit: PERI De León PHYSICIAN SIGNATURE: Electronically signed by Tarsha Mancera M.D. on09/13/2021 8:30:45 AM at 0830 PATIENT NAME: GENO PRASAD zidg7163-07-04L58:45:00Z.[id number] lai able for patient arypFSALUFFBQDXMKL7324-85-47Z80:46:40 2021-09-02 11:08:00 [id number]:08:[id number] [facility] [place] of: [address] [address] PATIENT NAME: GENO PRASAD ADMIT DATE: 09/02/21ACCOUNT NO: [id number] ROOM NO: MEDICA L RECORD NO: [id number] AGE: 56 REPORT TYPE: ePROCEDURE NOTE RADIATION ONC SEX: M ADMITTING PHYSICIAN: ATTENDING PHYSICIAN:Tarsha Mancera MD Date of Service: 1Patient Name: GENO PRASADPatient : 1965Patient MR# : [id number]: Tarsha Mancera M.D. Treatment Planning NotePhysician OrderType of Treatment Planning: ComplexDiagnosis: Rectal Adenocarcinoma C20 - Malignant neoplasm of rectum, StageIIIB, T3, N1, H5Hxwdshgqv Intent: CurativeTarget/Total Dose/Fraction Size: pelvic lymph nodes and recta l tumor = PTV1 to45 Gy in 1.8 Gy daily fractions, 25 fractions 6X VMAT/IGRT; followed by PTV2=gabriela s tumor boost, 5.4 Gy in 1.8 Gy daily fractions, 3 fx 6X VMAT/IGRT(concurrent chemotherapy)Special Treatment Procedure: The patient s plan required additional physiciantime and effort due to use o f VMAT which required contouring of normalstructures as well as CTV and evaluation o f comparative DVH graphs. I reviewedseveral plans prior to achieving an adequate plan with optimal PTV coveragewhile respecting normal surrounding structures including bladder, bowel andfemoral heads. The patient will also be treated with concurrent chemotherapywhich required additional coordination and care for toxicity.Additional time and effort was spent for image fusion using Pet Scan forcustomized Tx PlanImaging Physics Instructions: Physics QA is required before the firstfraction. CBCT imaging for patient position and target localizationconfirmation before delivery of treatment is requested.MODALITY:___ 3D-82842/80523/46277/37239/47194/77293___ IMRT-47688/83146/57188/12576/75824/72361/77293__ _ SRS/SBRT-54465/03536/95216/90536/31648/89099 Sincerely, Electronically Signed and Approved by Tarsha Mancera M.D. 09/02/2021 11:09:08 AM PATIENT NAME: GENO PRASAD at 1109 PATIENT NAME: GENO PRASAD ltrp4707-43-28M29:08:[id number] l able for patient zxexNEFZSZKJQETDUD4142-44-89H99:12:12 2021-09-02 11:07:00 [id number] [facility] of: [address] [address] PATIENT NAME: GENO PRASAD ADMIT DATE: 09/02/21ACCOUNT NO: [id number] ROOM NO: AGE: 56 REPORT TYPE: ePROCEDURE NOTE RADIATION ONC SEX: M ADMITTING PHYSICIAN: ATTENDING PHYSICIAN:aTrsha Mancera MD Date of Service: 09/02/2021atient Name: GNEO PRASADPatient : 1965Patient MR#: [id number]: Tarsha Mancera M.D. NoteType of Simulation: ComplexPurpose: InitialDiagnosis: Rectal Adenocarcinoma C20 - Malignant neoplasm of rectum, StageIIIB, T3-4, N1, Q3Urcjzsgnx Intent: CurativeHistory Summary: Staging pelvic CT scan was notable for sreedhar-recal nodalmetastases but n o distant metastases. The patient was referred forpreoperative POMPOM MAKER with curative intent after having 3 cycles of FOLFOX.Procedure The patient was laid supine with rectal marker (radioopaque BB) placedat inferior edge of tumor with legs an d pelvis in a customized Vac-Loc cradlefor immobilization. Lasers confirmed the patient position before a CT of thepelvis was obtained a t 2.5 mm slice thickness from L3 superiorly down t o theinferior aspect of the obturators. All images were reviewed prior to tattooingthe patient and having him come off the table.Provisional plan for secondary sim: noIV Contrast: None Sincerely , at 1108 PATIENT NAME: GENO PRASAD sgxa7953-33-85Q41:07:[id number] l able for patient tiyrFTEPWYSTVCIIPK1461-09-58S81:11:03 2021-09-02 10:54:00 [id number]:54:[id number] [facility] of: [facility] [address] [place] [address] PATIENT NAME: GENO PRASAD ADMIT DATE: 09/02/21ACCOUNT NO: [id number] ROOM NO: RODOLFO Hoyt RECORD NO: [id number] AGE: 56 REPORT TYPE: eCONSULTATION RADIATION ONC SEX: M ADMITTING PHYSICIAN: ATTENDING PHYSICIAN:Tarsha Mancera MD e of Service: 09/02/2021atient Name: GENO PRASADPatient : 1965Patient MR#: [id number]: Tarsha Mancera M.D. Outpatient ConsultationReferring Physician: Nasir Vargas M.D.Primary Care Physician: Tania Walter M.D.Diagnosis: C20 - Malignant neoplasm of rectum, Stage IIIB, node-positive perDr. Dela Cruz s notes before [facility] Mr. Prasad is a 56yo gentleman referred by Dr. Vargas for considerationof preoperative chemoradiation for a locally advanced rectal cancer. Hepresented with GI symptoms of hematochezia in October 2020. Visits to the ERwere wasteful as no one examined his rectum or ordered imaging beside plainabdominal x-ray. He was told it was simple constipation. He finally went for acolonoscopy o n 05/25/[address] Solorio who diagnosed him with a large,obstructing mass 10cm mass in the mid-rectum located from 10 to 20 cm above theAV. Biopsy confirmed MD adenocarcinoma and CEA prove d elevated at 56.3. StagingCT of chest/abdomen/pelvis noted the rectal mass and prominent sreedhar-rectallymph nodes. Dr. Dela Cruz staged his disease as T4N1 and initiated FOLFOX in theneoadjuvant setting. Mr. Prasad experienced ease of rectal pain with thechemotherapy and states that he moves a thin but solid stool every day withoutpain or signs o f blood. [facility] Dr[facility] Sam bull to have Dr. Tan do his surgery once preop POMPOM MAKER is complete. Noevidence o f prior PET scan.Review of Systems: No complaints pertaining to vision, hearing, mouth or throat.Denies cardiovascular, respiratory, musculoskeletal, psychiatric orneurological complaints. No skin or allergy issues noted. Denies urinary orgastrointestinal complaints. Denies unexplained weight loss.Past Medical History: Congestive heart failure in 2005, GI bleed in 2020, gout,hemorrhoids, HTN, prior chemotherapy in 2020, rectal cancer in 2020.Past Surgical History: Colonoscopy on 05/25/2021.Medications: Allopurinol, (300 mg) tablet oral, Carvedilol, (25 mg) tablet oralb.i.d, Colace, (100 mg) capsule oral prn, MiraLax, powder oral prn and [place],tablet oral prn.Allergies: No Known AllergiesFamily History: No Remarkable Family HistorySocial History: Last screened on 08/31/2021 - Never smoked. Last screened on08/31/2021 - Never drank.Performance Status: ECOG 0 PATIENT NAME: GENO PRASAD Physical Exam:Performed on 09/02/2021 10:25 AMBMI - 28.481 kg/m2 (HIGH) -Height - 72 in -Weight - 210 lbs -Fatigue - 2 -Pain - 0 -Temperature - 98 F -Pulse - 65 /min -O2 Sat - 89 % (LOW) -BP - 92/ 58 mm(hg)(/LOW) - ;The patient is alert and oriented, in no distress. Vital signs notable for lowBP but he i s asymptomatic. Head is normocephalic, symmetry at facial muscles.Neck examination was negative for adenopathy bilaterally. Heart is regular inrate and rhythm. Lungs are clear to auscultation bilaterally. Abdomen wassoft and nontender, negative for hepatosplenomegaly. Neurological exam isnon-focal with CN 2-12 grossly intact. Musculoskeletal exam reveals all fourextremities with 5/5 motor strength, full sensation, reflexe s intact. Rectalexam notable or normal sphincter tone, no palpable mass circumferentially up to7 cm above AV.Impression and Recommendation: Mr. Prasad is a 56yo gentleman with a locallyadvanced clinical Stage III adenocarcinom a of the mid-rectum/rectosigmoid colonstatus post FOLFOX x 3. He understands the need to proceed with concurrent CRTto fully treat the pelvic lymph nodes and primary tumor before surgery. Theshort and long-term side effects of radiation therapy were reviewed in detail.I will order a PET scan today for treatment planning purposes a s well asrequest initial staging pelvic CT images on disc. All patient questions wereanswered before obtaining informed consent. A simulation appointment will bedone today to start dagoberto. Sincerely, Cc: Viviana Delgadillo M.D. at 1107 PATIENT NAME: GENO PRASAD :54:00Z.Z R [id number] for patient [id number]:08:12 2021-09-02 10:49:00 [id number] [facility] [place]: [place] [address] PATIENT NAME: GENO PRASAD ADMIT DATE: 09/02/21ACCOUNT NO: [id number] ROOM NO: MEDICA L RECORD NO: [id number] AGE: 56 REPORT TYPE: ePHYSICIAN ORDER RADIATION ONC SEX: M ADMITTING PHYSICIAN: ATTENDING PHYSICIAN:Tarsha Mancera MD [facility]My[facility] SaultPhone Fax Patient: GENO PRASADDOB: 1965MR#: [id number]: Tarsha Mancera M.D. : 09/02/2021eferring Physician: SELF REFERREDDiagnosis: Primary C20 - Malignant neoplasm of rectum, Diagnosed 08/31/2021(Active) Stage IIIB, T3, N1, M0 Reason for Visit: IMTIAZIN G PHYSICIAN SIGNATURE: Electronically signed by Tarsha Mancera M.D. on09/02/2021 11:26:45 AM at 1126 PATIENT NAME: GENO PRASAD [id number] l able for patient [id number]:29:16"
[2023-09-13] MEDS ORDERED: NA CHLORIDE 0.9% 1,000 ML ONE (22:24)
[2023-09-13] MEDS ORDERED: MORPHINE 4 MG/ML SYR ONE (22:29)
[2023-09-13] MEDS ORDERED: ONDANSETRON 4 MG/2 ML VIAL ONE (22:29)
[2023-09-13 22:39] LABS: Absolute Lymphocytes (CBC) 0.4 K/uL (0.7-4.9); Lymphocytes % 10.1 % (15.3-44.8); MCV 83.5 fL (80-100); MPV 6.5 fL (7.6-11.3); Platelets 421 thou/uL (152-406); RBC Red Blood Cell Count 3.23 M/uL (4.33-5.43)
[2023-09-13 22:56] LABS: AST/SGOT 19 U/L (15-37); Albumin 1.8 g/dL (3.4-5.0); Alkaline Phosphatase 78 U/L (45-117); BUN Blood Urea Nitrogen 54 mg/dL (7-18); Bicarbonate 29 mEq/L (21-32); Bilirubin Total 0.4 mg/dL (0.2-1.0); Glomerular Filtration Rate 27 ml/min (=/>90); Glucose Level 115 mg/dL (74-106); Lipase 29 U/L (13-75); Potassium 4.3 mEq/L (3.5-5.1); Protein, Total 6.7 g/dL (6.4-8.2); Sodium Level 138 mEq/L (136-145)
[2023-09-13 23:05] LABS: ALT/SGPT < 10 U/L (16-61)
[2023-09-14 00:36] LABS: Renal Epithelial <5 /HPF (None Seen); Specific Gravity 1.012 (1.005-1.030); Urine Bacteria <20 /HPF (<20); Urine Bilirubin NEGATIVE (Negative); Urine Blood 1+ (Negative); Urine Clarity Turbid (Clear); Urine Color Light-Yellow (Yellow); Urine Glucose NEGATIVE (Negative); Urine Mucus Slight /HPF (None Seen); Urine Protein 2+ (Negative); Urine Urobilinogen Normal (Normal); Urine pH 6.5 (5.0-7.0)
[2023-09-14 00:38] LABS: Blood Morphology Comment NOTED (NOT SEEN); Platelet Estimate ADEQ; White Blood Cell Scan OK (OK)
[2023-09-14] MEDS ORDERED: HYDROMORPHONE HCL 1 MG/ML INJ ONE (01:39)
[2023-09-14] MEDS ORDERED: NA CHLORIDE 0.9% 100 ML ONE (01:40)
[2023-09-14] MEDS ORDERED: PIPERACIL/TAZO 3.375 GM VIAL IV ONE (01:40)
--- NOTE | 2023-09-14 01:52 | ER ---
Nurse's Notes [facility] Name: Edwin Young Age: 58 yrs Sex: Male : 1965 Arrival Date: 09/13/2023 Time: 20:02 Bed 5 Private MD: Diagnosis: Abdominal pain, Generalized;Disseminated malignant neoplasm, unspecified Presentation: 09/13 21:11 Chief complaint: Patient states: ABD PAIN, RECTAL PAIN, DIZZINESS AND WEAKNESS X3 DAYS. jj7 Coronavirus screen: At this time, the client does not indicate any symptoms associated with coronavirus-19. Ebola Screen: No symptoms or risks identified at this time. Initial Sepsis Screen: Does the patient meet any 2 criteria? HR > 90 bpm. Does the patient have a suspected source of infection? No. Patient's initial sepsis screen is negative. Risk Assessment: Do you want to hurt yourself or someone else? Patient reports no desire to harm self or others. 21:11 Method Of Arrival: Wheelchair j7 21:11 Acuity: JASWINDER 3 j7 09/14 02:15 Onset of symptoms is unknown. rv Triage Assessment: 09/13 21:17 General: Appears in no apparent distress. uncomfortable, Behavior is calm, appropriate jj7 for age, fussy. Pain: Complains of pain in buttocks and abdomen. GI: Reports lower abdominal pain, upper abdominal pain. Historical: - Allergies: 21:17 No Known Allergies; jj7 - PMHx: 21:17 CHEMO; CHF; colon cancer; Gout; Hypertension; jj7 - PSHx: 21:17 Colostomy; L nephrostomy; jj7 - Immunization history:: Adult Immunizations up to date. - Social history:: Smoking status: Patient denies any tobacco usage or history of. Patient/guardian denies using alcohol, street drugs. Screenin:07 [facility] ED Fall Risk Assessment (Adult) History of falling in the last 3 months, mb9 including since admission No falls in past 3 months (0 pts) Confusion or Disorientation No (0 pts) Intoxicated or Sedated No (0 pts) Impaired Gait No (0 pts) Mobility Assist Device Used No (0 pt) Altered Elimination No (0 pt) Score/Fall Risk Level 0 - 2 = Low Risk Oriented to surroundings, Maintained a safe environment, Educated pt \T\ family on fall prevention, incl call for assistance when getting out of bed. Abuse screen: Denies threats or abuse. Nutritional screening: No deficits noted. Tuberculosis screening: No symptoms or risk factors identified. Assessment: 22:06 General: Appears in no apparent distress. Behavior is calm, cooperative. Pain: mb9 Complains of pain in abdomen. Neuro: Reyna Agitation-Sedation Scale (RASS): 0 - Alert and Calm Level of Consciousness is awake, alert, obeys commands, Oriented to person, place, time, situation, Appropriate for age. Cardiovascular: Patient's skin is warm and dry. Respiratory: Airway is patent Respiratory effort is even, unlabored, Respiratory pattern is regular, symmetrical. GI: Colostomy site is intact. Bowel sounds present X 4 quads. Abd is soft and non tender X 4 quads. : No signs and/or symptoms were reported regarding the genitourinary system. Derm: Skin is pink, warm \T\ dry. Vital Signs: 21:11 BP 125 / 88; Pulse 136; Resp 20; Temp 98.7; Pulse Ox 97% ; Weight 58.97 kg; Height 6 jj7 ft. 2 in. ; 21:30 BP 130 / 100; Pulse 109; Resp 24; Pulse Ox 97% ; jj7 22:44 BP 131 / 84; Pulse 95; Resp 19; Pulse Ox 99% ; jj7 23:33 BP 124 / 83; Pulse 91; Resp 19; Pulse Ox 98% ; jj7 09/14 00:45 BP 139 / 96; Pulse 102; Resp 20; Pulse Ox 98% ; jj7 02:15 BP 117 / 82; Pulse 94; Resp 18; Pulse Ox 98% on R/A; rv 09/13 21:11 Body Mass Index 16.69 (58.97 kg, 187.96 cm) j7 ED Course: 09/13 20:06 Patient arrived in ED. jj6 20:34 Steven Quesada PA is PHCP. cp 20:34 Rashid Mathur is Attending Physician. cp 21:17 Triage completed. jj7 21:17 Arm band placed on right wrist. jj7 22:07 Placed in gown. Bed in low position. Client placed on continuous cardiac and pulse mb9 oximetry monitoring. NIBP monitoring applied. 22:07 No provider procedures requiring assistance completed. mb9 22:13 Accessed Port-a-Cath. Blood collected. rv 23:51 Abdomen In Process Unspecified. EDMS 09/14 00:49 Sweta Albert RN is Primary Nurse. jj7 01:50 Timothy Jo MD is Hospitalizing Provider. ci 02:14 Patient admitted, IV remains in place. rv 02:15 Provided Education on: antibitiocs. rv Administered Medications: 09/13 22:13 Drug: NS 0.9% IV 1000 ml IV at 1 bolus Per protocol; 1000 mL bolus Route: IV; Rate: 1 rv bolus; Site: Port-a-cath; 22:29 Drug: Ondansetron IVP 4 mg IVP once; over 2 minutes Route: IVP; Site: Port-a-cath; rv 09/14 02:16 Follow up: Response: No adverse reaction rv 09/13 22:29 Drug: morphine IVP or IV 4 mg IVP once over 4 mins Route: IVP; Infused Over: 4 mins; rv Site: Port-a-cath; 09/14 02:16 Follow up: Response: No adverse reaction rv 01:34 Drug: Piperacillin-Tazobactam IVPB 3.375 grams IVPB once over 60 mins; (mix in NS 100 rv mL) Route: IVPB; Infused Over: 60 mins; Site: Port-a-cath; 02:16 Follow up: Response: No adverse reaction; IV Status: Completed infusion; IV Intake: rv 100ml 01:34 Drug: HYDROmorphone IVP 1 mg IVP once Route: IVP; Site: Port-a-cath; rv 02:15 Follow up: Response: No adverse reaction rv Medication: 02:14 VIS not applicable for this client. rv Intake: 02:16 IV: 100ml; Total: 100ml. rv Outcome: 01:52 Decision to Hospitalize by Provider. ci 02:14 Admitted to ER Hold. Please see [facility] for further documentation. rv 02:14 Condition: good 02:14 Instructed on the need for admit, 08:51 Patient left the ED. ll1 Signatures: Dispatcher [employer] EDSC Steven Quesada PA PA cp Vicente, Ronaldo, RN RN rv Jennifer Gan RN RN ll1 Antonia Palma jj6 Sweta Albert, RN RN jj7 Brooke Boyle RN RN mb9 Rashid Mathur
--- NOTE | 2023-09-14 01:53 | EDPHYS ---
Physician Documentation [facility] Name: Edwin Young Age: 58 yrs Sex: Male : 1965 Arrival Date: 09/13/2023 Time: 20:02 Bed 5 Private MD: ED Physician Rashid Mathur HPI: 09/13 21:24 This 58 yrs old Black Male presents to ER via Wheelchair with complaints of Abdominal ci Pain. 21:24 Patient is a 58-year-old male with PMH CHF, hypertension, gout, rectal and colon CA s/p ci colon resection with bilateral colostomy, bilateral nephrostomy who presents with generalized abdominal pain that began a few days ago. Patient reports he has been taking his [place] with no improvement. Pain seems to be localized around his colostomy site. Patient also endorses rectal pain, generalized weakness. Denies fever, chills, nausea/vomiting.. Historical: - Allergies: 21:17 No Known Allergies; jj7 - PMHx: 21:17 CHEMO; CHF; colon cancer; Gout; Hypertension; jj7 - PSHx: 21:17 Colostomy; L nephrostomy; jj7 - Immunization history:: Adult Immunizations up to date. - Social history:: Smoking status: Patient denies any tobacco usage or history of. Patient/guardian denies using alcohol, street drugs. ROS: 09/14 00:07 Abdomen/GI: Positive for abdominal pain, rectal pain, Negative for nausea and vomiting, ci hematemesis, Exam: 00:07 Constitutional: Chronically ill-appearing, in acute distress secondary to pain. ci Head/Face: Normocephalic, atraumatic. Eyes: Pupils equal round and reactive to light, extra-ocular motions intact. Lids and lashes normal. Conjunctiva and sclera are non-icteric and not injected. Cornea within normal limits. Periorbital areas with no swelling, redness, or edema. ENT: Nares patent. No nasal discharge, no septal abnormalities noted. Tympanic membranes are normal and external auditory canals are clear. Oropharynx with no redness, swelling, or masses, exudates, or evidence of obstruction, uvula midline. Mucous membranes moist. Neck: Trachea midline, no thyromegaly or masses palpated, and no cervical lymphadenopathy. Supple, full range of motion without nuchal rigidity, or vertebral point tenderness. No Meningismus. Chest/axilla: Normal chest wall appearance and motion. Nontender with no deformity. No lesions are appreciated. Cardiovascular: Tachycardic but regular with a normal S1 and S2. No gallops, murmurs, or rubs. No JVD. No pulse deficits. Respiratory: Lungs have equal breath sounds bilaterally, clear to auscultation and percussion. No rales, rhonchi or wheezes noted. No increased work of breathing, no retractions or nasal flaring. Abdomen/GI: Abdomen soft, diffusely tender. Bilateral lower quadrant colostomy with stool noted in the right lower quadrant. Bilateral nephrostomy tubes with clear yellow urine present. Back: No spinal tenderness. No costovertebral tenderness. Full range of motion. Skin: Warm, dry with normal turgor. Normal color with no rashes, no lesions, and no evidence of cellulitis. MS/ Extremity: Pulses equal, no cyanosis. Neurovascular intact. Full, normal range of motion. Neuro: Awake and alert, GCS 15, oriented to person, place, time, and situation. Cranial nerves II-XII grossly intact. Motor strength 5/5 in all extremities. Sensory grossly intact. Cerebellar exam normal. Normal gait. Psych: Awake, alert, with orientation to person, place and time. Behavior, mood, and affect are within normal limits. Vital Signs: 09/13 21:11 BP 125 / 88; Pulse 136; Resp 20; Temp 98.7; Pulse Ox 97% ; Weight 58.97 kg; Height 6 jj7 ft. 2 in. ; 21:30 BP 130 / 100; Pulse 109; Resp 24; Pulse Ox 97% ; jj7 22:44 BP 131 / 84; Pulse 95; Resp 19; Pulse Ox 99% ; jj7 23:33 BP 124 / 83; Pulse 91; Resp 19; Pulse Ox 98% ; jj7 09/14 00:45 BP 139 / 96; Pulse 102; Resp 20; Pulse Ox 98% ; jj7 02:15 BP 117 / 82; Pulse 94; Resp 18; Pulse Ox 98% on R/A; rv 09/13 21:11 Body Mass Index 16.69 (58.97 kg, 187.96 cm) [facility] MDM: 09/13 20:47 Patient medically screened. ci 23:23 Awaiting: CT scan results. ED course: CMP shows creatinine of 2.60, GFR 27. Chart ci review shows previous creatinine of 2.29 on 08/23, likely CKD. Will change CT to without contrast.. 09/14 00:07 Differential Diagnosis Bowel obstruction, worsening malignancy, proctitis, UTI. Data ci reviewed: vital signs, nurses notes, lab test result(s), radiologic studies. Historians other than the Patient: Stepfather. External Records Reviewed: Multiple ED visits. Chart review shows ED visit in July and August 23. 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 . Care significantly affected by the following chronic conditions: Hypertension, Congestive Heart Failure. Medication response: morphine markedly relieved the patient's pain. Symptoms have improved. Awaiting: CT scan results, Waiting for result. ED course: Patient presents for evaluation of generalized abdominal pain. He is chronically ill-appearing but overall nontoxic. Tachycardic on arrival, afebrile. Will obtain abdominal labs and imaging. Patient has had multiple abdominal surgeries, bilateral colostomy and nephrostomy tube. Final disposition is pending imaging.. 01:49 ED course: CT abdomen shows metastatic disease with scattered fluid/stranding in the ci abdomen, with empirically started on Zosyn. Will admit for further management. Case discussed with hospitalist will set the patient for admission.. 09/13 21:20 Order name: CBC with Diff; Complete Time: 00:56 ci 09/13 23:22 Interpretation: Abnormal: WBC 3.70; HGB 9.1; PLT 421. ci 09/13 21:20 Order name: CMP; Complete Time: 23:22 ci 09/13 23:22 Interpretation: Abnormal: CRE 2.60; GFR 27. ci 09/13 21:20 Order name: Lipase; Complete Time: 23:22 ci 09/13 21:20 Order name: Urinalysis w/ reflexes; Complete Time: 00:56 ci 09/13 21:20 Order name: Lactate w/ 2H reflex if indic.; Complete Time: 22:56 ci 09/13 22:56 Interpretation: Within normal limits. ci 09/13 22:43 Order name: CBC Smear Scan; Complete Time: 00:56 EDMA 09/14 02:07 Order name: Basic Metabolic Panel EDMA 09/14 02:07 Order name: Basic Metabolic Panel EDMA 09/14 02:07 Order name: CBC with Automated Diff EDMS 09/14 02:07 Order name: CBC with Automated Diff EDMS 09/13 23:14 Order name: Abdomen EDMS 09/13 21:20 Order name: IV Saline Lock; Complete Time: 22:13 ci 09/13 21:20 Order name: Labs collected and sent; Complete Time: 22:13 ci Administered Medications: 09/13 22:13 Drug: NS 0.9% IV 1000 ml IV at 1 bolus Per protocol; 1000 mL bolus Route: IV; Rate: 1 rv bolus; Site: Port-a-cath; 22:29 Drug: Ondansetron IVP 4 mg IVP once; over 2 minutes Route: IVP; Site: Port-a-cath; rv 09/14 02:16 Follow up: Response: No adverse reaction rv 09/13 22:29 Drug: morphine IVP or IV 4 mg IVP once over 4 mins Route: IVP; Infused Over: 4 mins; rv Site: Port-a-cath; 09/14 02:16 Follow up: Response: No adverse reaction rv 01:34 Drug: Piperacillin-Tazobactam IVPB 3.375 grams IVPB once over 60 mins; (mix in NS 100 rv mL) Route: IVPB; Infused Over: 60 mins; Site: Port-a-cath; 02:16 Follow up: Response: No adverse reaction; IV Status: Completed infusion; IV Intake: rv 100ml 01:34 Drug: HYDROmorphone IVP 1 mg IVP once Route: IVP; Site: Port-a-cath; rv 02:15 Follow up: Response: No adverse reaction rv Disposition Summary: 09/14/23 01:52 Hospitalization Ordered Notes: Hospitalization Status: Inpatient Admission ci Provider: Timothy Jo Condition: Stable ci Problem: an acute exacerbation ci Symptoms: are unchanged ci Bed/Room Type: Standard ci Location: Telemetry/MedSurg (Inpatient)(09/14/23 08:16) em1 Room Assignment: [facility](09/14/23 08:16) em1 Diagnosis - Abdominal pain, Generalized ci - Disseminated malignant neoplasm, unspecified ci Forms: - Medication Reconciliation Form ci - SBAR form ci - Leadership Thank You Letter ci Signatures: Dispatcher [employer] Kevin Stovall em1 Octavio Hull RN RN rv Meggan Le, RN RN lg3 Sweta Albert RN RN jj7 Rashid Mathur ci Corrections: (The following items were deleted from the chart) 09/13 23:14 21:27 Abdomen Pelvis W Con+CT.RAD.BRZ ordered. EDMS EDMS 23:22 22:56 Abnormal: WBC 3.70; HGB 9.1. ci ci 09/14 00:15 09/13 23:23 ED course: CMP shows creatinine of 2.2, GFR 27. Chart review shows previous ci creatinine of 2.29 on 08/23, likely CKD. Will change CT to without contrast.. ci 09/14 04:05 01:52 Telemetry/MedSurg (observation) ci lg3 04:05 01:52 ci lg3 08:16 04:05 [facility] ER HOLD lg3 em1 08:16 04:05 ERHOLD- lg3 em1
--- NOTE | 2023-09-14 02:02 | P.HP ---
Certification for Inpatient Patient admitted to: Inpatient With expected LOS: >2 Midnights Practitioner: I am a practitioner with admitting privileges, knowledge of patient current condition, hospital course, and medical plan of care. Services: Services provided to patient in accordance with Admission requirements found in Title 42 Section 412.3 of the Code of Federal Regulations Patient History Date of Service: 09/14/23 Reason for admission: Abdominal pain, colitis. History of Present Illness: 58-year-old female patient with medical history significant for hypertension, history of colon cancer with on chemotherapy admitted for management of abdominal pain and found to have suspected colitis. He complained of abdominal pain that has been going on for a while with associated inability to eat properly. He denied overt episode of diarrhea, nausea, vomiting. CT of the abdomen/pelvis confirmed colitis episode. He was admitted for inpatient care. Allergies No Known Allergies Allergy (Verified 05/24/23 23:26) Home Medications: carvediloL [Coreg*] 3.125 mg PO BID 6AM 6PM #60 tab 05/11/23 Ensure Enlive 237 ml PO BID #30 can 08/31/23 Hydrocodone/Acetaminophen [Hydrocodone-Acetamin 10-325 mg] 1 each PO Q6HP PRN #20 tab 08/31/23 Magnesium Chloride [Slow-Mag*] 64 mg PO BID #60 tab 08/31/23 Polyethylene Glycol 3350 [Miralax] 17 gm PO DAILY #30 packet 08/31/23 Sennosides [Senokotxtra] 17.2 mg PO BID #120 tab 08/31/23 - Past Medical/Surgical History Diabetic: No -: Systolic CHF -: HTN -: HLD -: Rectal Cancer Dx January 2021 -: Gout -: JANET/ CKD III (Dr. Hernandez/ Dr. Miranda) -: Chemo-Port placement - Family History Mother -: Heart disease, Hypertension, Other (see notes) Notes: CHF Father -: Diabetes - Social History Alcohol use: No CD- Drugs: No Caffeine use: Yes Review of Systems General: Weakness Eyes: Unremarkable ENT: Unremarkable Respiratory: Unremarkable Cardiovascular: Unremarkable Gastrointestinal: Abdominal Pain Genitourinary: Unremarkable Musculoskeletal: Unremarkable Integumentary: Unremarkable Physical Examination - Physical Exam General: Alert, Cachectic HEENT: Atraumatic Neck: Supple Respiratory: Normal air movement Cardiovascular: Regular rate/rhythm, Normal S1 S2 Gastrointestinal: Tenderness Musculoskeletal: No swelling Neurological: Normal speech - Studies Laboratory Data (last 24 hrs) 09/13/23 09/13/23 22:07 22:07 WBC 3.70 L Hgb 9.1 L Hct 27.0 L Plt Count 421 H Sodium 138 Potassium 4.3 BUN 54 H Creatinine 2.60 H Glucose 115 H Total Bilirubin 0.4 AST 19 ALT < 10 L Alkaline Phosphatase 78 Lipase 29 Assessment and Plan - Plan Colitis: Patient had episode of colitis secondary to suspected infectious process. Empiric therapy with ciprofloxacin and Flagyl started. Pain control with as needed morphine to be continued. Will continue IV hydration and keep n.p.o. pending further review. History of colon cancer: We will continue outpatient chemotherapy.. Hypertension: We will continue outpatient antihypertensive medications and monitor vital signs per unit protocol. Prophylaxis: Lovenox for DVT prophylaxis CODE STATUS: Full code. Disposition: We will treat his colitis episode and he will be discharged once deemed clinically stable. Time taken for encounter is 55 minutes. - Advance Directives Does patient have a Living Will: No Does patient have a Durable POA for Healthcare: No
[2023-09-14] MEDS ORDERED: ONDANSETRON 4 MG/2 ML VIAL IV PRN (02:03)
[2023-09-14] MEDS ORDERED: ACETAMINOPHEN 325 MG TABLET PO PRN (02:03)
[2023-09-14] MEDS: NA CHLORIDE 0.9% 1,000 ML IV SCH ×3 (03:00→16:51)
[2023-09-14 03:32] VITALS: BMI 16.7
[2023-09-14] MEDS ORDERED: NA CHLORIDE 0.9% 1,000 ML ONE (04:59)
[2023-09-14] MEDS ORDERED: MORPHINE 2 MG/ML SYR IV PRN (06:29)
[2023-09-14] MEDS ORDERED: MORPHINE 2 MG/ML SYR ONE (06:44)
[2023-09-14] MEDS ORDERED: ONDANSETRON 4 MG/2 ML VIAL ONE (08:16)
[2023-09-14] MEDS ORDERED: METRONIDAZOLE 500mg IVPB 500 MG/100 ML BAG IV ONE (08:16)
[2023-09-14] MEDS ORDERED: Ciprofloxacin 200mg IV 200 MG/100 ML IV.SOLN. IV ONE (08:16)
[2023-09-14] MEDS ORDERED: ACETAMINOPHEN 325 MG TABLET ONE (08:16)
[2023-09-14 09:00] VITALS: O2SAT 98
[2023-09-14] MEDS: Ciprofloxacin 200mg IV 200 MG/100 ML IV.SOLN. IV SCH ×2 (09:00→20:13)
[2023-09-14] MEDS: METRONIDAZOLE 500mg IVPB 500 MG/100 ML BAG IV SCH ×2 (09:00→16:46)
[2023-09-14] MEDS: HEPARIN 5000 UNIT/ML 1 ML VIAL SQ SCH ×2 (09:00→16:46)
[2023-09-14] MEDS: HYDROMORPHONE HCL 1 MG/ML INJ IV PRN ×4 (10:25→22:22)
[2023-09-14] MEDS ORDERED: INFLUENZA VACCINE (for 6+ mo) 0.5 ML DOSE IMVAC ONE (12:00)
--- NOTE | 2023-09-14 13:16 | RAD REPORT ---
EXAM DESCRIPTION: CT - Abdomen Pelvis Wo Contrast - 09/14/2023 6:38 am CLINICAL HISTORY: The patient is 58 years old and is Male; ABD AND RECTAL PAIN TECHNIQUE: Axial computed tomography images of the abdomen and pelvis without intravenous contrast. Sagittal and coronal reformatted images were created and reviewed. This CT exam was performed usi ng one or more of the following dose reduction techniques: automated exposure control, adjustment o f the mA and/or kV according to patient size, and/or use of iterative reconstruction technique. COMPARISON: August 23, 2023 FINDINGS: Limitations: Evaluation limited by artifact/positioning. Lung bases: Innumerable mixed density pulmonary nodules in the lung bases bilaterally. No consolidation. ABDOMEN: Liver: Multiple hypoattenuating lesions in the liver including a 4.9 cm lesion in the left liver, and a 4.2 cm lesion in the right posterior liver. Gallbladder and bile ducts: Unremarkable. No calcified stones. No ductal dilation. Pancreas: Unremarkable. No ductal dilation. Spleen: Unremarkable. No splenomegaly. Adrenals: Unremarkable. No mass. Kidneys and ureters: Bilateral nephrostomy tubes. Mild left hydroureteronephrosis. Stomach and bowel: Irregular rectal wall thickening concerning for malignancy which may also invo lve the adjacent bladder, similar to prior. Left lower quadrant ostomy. Right upper quadrant ostomy. No obstruction. PELVIS: Appendix: No findings to suggest acute appendicitis. Bladder: Diffuse bladder wall thickening. Small amount of air in the bladder. Reproductive: Unremarkable as visualized. ABDOMEN and PELVIS: Intraperitoneal space: Scattered fluid/stranding in the abdomen. No free air. Bones/joints: No acute fracture. No dislocation. Soft tissues: Unremarkable. Vasculature: Scattered atherosclerotic vascular calcifications. No abdominal aortic aneurysm. Lymph nodes: Unremarkable. No enlarged lymph nodes. IMPRESSION: 1. Irregular rectal wall thickening concerning for malignancy which may also involve t he adjacent bladder, similar to prior. 2. Innumerable mixed density pulmonary nodules in the lung bases bilaterally. Findings are sugges tive of metastatic disease. 3. Multiple hypoattenuating lesions in the liver including a 4.9 cm lesion in the left liver, and a 4.2 cm lesion in the right posterior liver. Findings are suggestive of metastatic disease. 4. Scattered fluid/stranding in the abdomen. 5. Additional non-emergent findings as above. Electronically signed by: Byron Day MD 09/14/2023 12:40 AM CLINICAL RESEARCH ASSOCIATE Due to temporary technical issues with the PACS/Fluency reporting system, reports are being signed by the in house radiologists without review as a courtesy to insure prompt reporting. The interpreting radiologist is fully responsible for the content of the report.
--- NOTE | 2023-09-14 16:52 | P.PN ---
Date of Service: 09/14/23 Patient seen and examined. He states his abdominal pain is significantly improved and asking for food. Serum creatinine is mildly elevated. He denies any change in colostomy output. Diagnosis: JANET Chronic anemia History of colon cancer. Cancer related pain Plan: Continue supportive measures. Hydrate with IV normal saline, Monitor renal function Analgesics as needed. Continue other home medications.
[2023-09-15] MEDS: METRONIDAZOLE 500mg IVPB 500 MG/100 ML BAG IV SCH ×2 (00:47→09:19)
[2023-09-15] MEDS: HEPARIN 5000 UNIT/ML 1 ML VIAL SQ SCH ×2 (00:47→09:00)
[2023-09-15] MEDS: HYDROMORPHONE HCL 1 MG/ML INJ IV PRN ×3 (02:23→10:46)
[2023-09-15] MEDS: NA CHLORIDE 0.9% 1,000 ML IV SCH (06:23)
[2023-09-15 06:24] LABS: Absolute Lymphocytes (CBC) 0.5 K/uL (0.7-4.9); Hematocrit 24.4 % (39.6-49.0); Lymphocytes % 12.5 % (15.3-44.8); MCV 84.6 fL (80-100); MPV 6.4 fL (7.6-11.3); Platelets 308 thou/uL (152-406); RBC Red Blood Cell Count 2.89 M/uL (4.33-5.43)
[2023-09-15 07:07] LABS: Potassium 4.4 mEq/L (3.5-5.1)
--- NOTE | 2023-09-15 08:58 | P.DS ---
Admission Date: 09/14/23 Discharge Date: 09/15/23 Disposition: ID HOME/HOME HEALTH CARE Discharge Condition: FAIR Reason for Admission: Abdominal pain, colitis. - Problems (1) Colitis Current Visit: Yes Status: Acute (2) Anemia Current Visit: No Status: Acute (3) Rectal cancer Current Visit: No Status: Chronic (4) S/P partial colectomy Current Visit: No Status: Chronic Brief History of Present Illness: 58-year-old female patient with medical history significant for hypertension, history of colon cancer on chemotherapy presented to the ED due to worsening abdominal pain and decreased oral intake. CT abdomen and pelvis suggested possible colitis. He denied overt episode of diarrhea, nausea, vomiting. He was admitted for inpatient care. Hospital Course: Patient was admitted to the medical floor and treated with IV antibiotics, and analgesics as needed for pain. His symptoms improved, patient started on reg ular diet which he tolerated. He denied any change in colostomy output. His serum creatinine was elevated above baseline but is improved with IV hydration. Vitals are stable and patient is deemed stable for discharge. Vital Signs/Physical Exam: Temp Pulse Resp BP Pulse Ox 98.3 F 83 18 125/74 95 09/15/23 04:00 09/15/23 04:00 09/15/23 06:23 09/15/23 04:00 09/15/23 06:23 General: Alert, In no apparent distress HEENT: Mucous membr. moist/pink Neck: JVD not distended Respiratory: Clear to auscultation bilaterally, Normal air movement Cardiovascular: No edema, Regular rate/rhythm Gastrointestinal: Soft and benign, Non-distended, Other (Colostomy x [address]) Musculoskeletal: No swelling Integumentary: No cyanosis Neurological: Normal strength at 5/5 x4 extr Laboratory Data at Discharge: WBC 3.80 thou/uL (4.3-10.9) L 09/15/23 06:10 Hgb 8.2 g/dL (13.6-17.9) L 09/15/23 06:10 Hct 24.4 % (39.6-49.0) L 09/15/23 06:10 Plt Count 308 thou/uL (152-406) 09/15/23 06:10 Sodium 140 mEq/L (136-145) 09/15/23 06:10 Potassium 4.4 mEq/L (3.5-5.1) 09/15/23 06:10 BUN 45 mg/dL (7-18) H 09/15/23 06:10 Creatinine 2.23 mg/dL (0.70-1.30) H 09/15/23 06:10 Glucose 126 mg/dL (74-106) H 09/15/23 06:10 Total Bilirubin 0.4 mg/dL (0.2-1.0) 09/13/23 22:07 AST 19 U/L (15-37) 09/13/23 22:07 ALT < 10 U/L (16-61) L 09/13/23 22:07 Alkaline Phosphatase 78 U/L (45-117) 09/13/23 22:07 Lipase 29 U/L (13-75) 09/13/23 22:07 Home Medications: carvediloL [Coreg*] 3.125 mg PO BID 6AM 6PM #60 tab 05/11/23 Ensure Enlive 237 ml PO BID #30 can 08/31/23 Magnesium Chloride [Slow-Mag*] 64 mg PO BID #60 tab 08/31/23 Polyethylene Glycol 3350 [Miralax] 17 gm PO DAILY #30 packet 08/31/23 Sennosides [Senokot] 17.2 mg PO BID #120 tab 08/31/23 Trifluridine/Tipiracil HCl [Lonsurf 20 mg-8.19 mg Tablet] 2 tab PO BID 09/14/23 Hydrocodone 10/APAP 325 [[place] 10/325] 1 tab PO Q6H PRN #30 tab 09/15/23 New Medications: Hydrocodone 10/APAP 325 [[place] 10/325] 1 tab PO Q6H PRN #30 tab PRN Reason: Pain Diet: Regular Activity: Ad bj Followup: NONE,NONE [Primary Care Provider] - Time spent managing pt's care (in minutes): 25
[2023-09-15] MEDS: Ciprofloxacin 200mg IV 200 MG/100 ML IV.SOLN. IV SCH (09:19)
[2023-09-15] MEDS ORDERED: HEPARIN 500 UNIT/5 ML SYR IV PRN (11:15)
[2023-09-15 13:27] VITALS: BP 120/78; TEMP 98.5
== END 2023-09-15 14:45 | disposition home health service (06) | DRG 683 ==
LOC: ER 20:02 → ERHOLD 09-14 02:03 → 4TH 09-14 08:34
PROVIDERS: ADMIT Internal Medicine Nephrology; ATTEND Internal Medicine
DX: N17.9 Acute kidney failure, unspecified (principal); C18.9 Malignant neoplasm of colon, unspecified; I13.0 Hypertensive heart and chronic kidney disease with heart failure and stage 1 through stage 4 chronic kidney disease, or unspecified chronic kidney disease; I50.22 Chronic systolic (congestive) heart failure; N18.30 Chronic kidney disease, stage 3 unspecified; D63.1 Anemia in chronic kidney disease; G89.3 Neoplasm related pain (acute) (chronic); M10.9 Gout, unspecified; E78.5 Hyperlipidemia, unspecified; K52.9 Noninfective gastroenteritis and colitis, unspecified; Z90.5 Acquired absence of kidney; Z90.49 Acquired absence of other specified parts of digestive tract; Z92.21 Personal history of antineoplastic chemotherapy; Z79.02 Long term (current) use of antithrombotics/antiplatelets; Z79.899 Other long term (current) drug therapy; Z85.038 Personal history of other malignant neoplasm of large intestine
CPT/HCPCS: 36415; 74176; 80048; 80053; 81001; 83605; 83690; 85025; 96365; 96375; 99285; J0744; J1170; J1642; J1644; J2270; J2405; J2543; J7030

== ENCOUNTER → 2023-10-03 | Emergency (ER) | payer OTHER ==
[~2023-10-03] MED LIST: MORPHINE 4 MG/ML SYR ONE; Meropenem 1000 MG/VIAL IV ONE; NA CHLORIDE 0.9% 1,000 ML ONE; NA CHLORIDE 0.9% 250 ML ONE; NA CHLORIDE 0.9% 500 ML ONE; ONDANSETRON 4 MG/2 ML VIAL ONE; PANTOPRAZOLE 40 MG INJ ONE
[2023-10-03 10:42] LABS: Specific Gravity 1.013 (1.005-1.030); Urine Bacteria <20 /HPF (<20); Urine Bilirubin NEGATIVE (Negative); Urine Blood Negative (Negative); Urine Clarity Extremely Turbid (Clear); Urine Color Yellow (Yellow); Urine Glucose NEGATIVE (Negative); Urine Protein 1+ (Negative); Urine RBC <5 /HPF (None Seen); Urine Urobilinogen Normal (Normal); Urine WBC Clump Occasional /HPF (None Seen); Urine pH 5.5 (5.0-7.0)
--- NOTE | 2023-10-03 10:42 | RAD REPORT ---
EXAM DESCRIPTION: RAD - Chest Single View - 10/03/2023 10:36 am CLINICAL HISTORY: COUGH COMPARISON: Chest Single View dated 08/23/2023; Chest Single View dated 08/01/2023; Abdomen 1 View (K UB) dated 06/12/2023; Chest Single View dated 12/08/2022; Abdomen Pelvis Wo Contrast dated 09/13/2023 FINDINGS: Lines: Right IJ approach Port-A-Cath with tip overlying the SVC. Lungs: Numerous bilateral pulmonary nodules that are similar to prior. Pleural: No significant pleural effusions or pneumothorax. Cardiac: The heart size is within normal limits. Mediastinum: Within normal limits. Bones: No acute fractures. Other: None IMPRESSION: Pulmonary nodules likely reflecting metastatic disease. No acute process otherwise ident ified.
[2023-10-03 12:08] LABS: Protime INR 1.23
[2023-10-03 12:24] LABS: AST/SGOT 18 U/L (15-37); Albumin 2.3 g/dL (3.4-5.0); Alkaline Phosphatase 77 U/L (45-117); BUN Blood Urea Nitrogen 26 mg/dL (7-18); Bicarbonate 28 mEq/L (21-32); Bilirubin Direct 0.2 mg/dL (0-0.2); Bilirubin Indirect, Calculated 0.3 mg/dL (0.2-0.8); Bilirubin Total 0.5 mg/dL (0.2-1.0); Glomerular Filtration Rate 31 ml/min (=/>90); Glucose Level 99 mg/dL (74-106); NT PRO-BNP 1783 pg/mL (<125); Potassium 4.8 mEq/L (3.5-5.1); Protein, Total 7.9 g/dL (6.4-8.2); Sodium Level 135 mEq/L (136-145)
[2023-10-03 12:29] LABS: ALT/SGPT < 10 U/L (16-61)
[2023-10-03 12:50] LABS: Absolute Lymphocytes (CBC) 0.6 K/uL (0.7-4.9); Hematocrit 19.8 % (39.6-49.0); Lymphocytes % 29.3 % (15.3-44.8); MCV 85.4 fL (80-100); MPV 6.8 fL (7.6-11.3); Platelets 310 thou/uL (152-406); RBC Red Blood Cell Count 2.32 M/uL (4.33-5.43)
--- NOTE | 2023-10-03 13:34 | EDPHYS ---
Physician Documentation [facility] Name: Edwin Young Age: 58 yrs Sex: Male : 1965 Arrival Date: 10/03/2023 Time: 10:03 Bed 8 Private MD: ED Physician Steven Reeves HPI: 10/03 13:22 This 58 yrs old Black Male presents to ER via EMS with complaints of RECTAL BLEEDING. sara 13:22 The patient presents with abdominal pain in the upper abdomen, in the lower abdomen. sara Onset: The symptoms/episode began/occurred just prior to arrival, today. The patient presents to the emergency department with rectal bleeding, a small amount. Onset: The symptoms/episode began/occurred just prior to arrival, this morning, today. Abdominal pain: described as crampy. Modifying factors: The symptoms are alleviated by nothing, the symptoms are aggravated by nothing. The symptoms do not radiate. Associated signs and symptoms: Pertinent positives: RECTAL BLEED. Modifying factors: The symptoms are alleviated by nothing, the symptoms are aggravated by nothing. Severity of pain: At its worst the pain was mild in the emergency department the pain is unchanged. The patient has experienced similar episodes in the past, multiple times. Historical: - Allergies: 11:38 No Known Allergies; ko1 - PMHx: 11:38 CHEMO; CHF; colon cancer; Gout; Hypertension; ko1 - PSHx: 11:38 Colostomy; L nephrostomy; ko1 - Immunization history:: Adult Immunizations unknown. - Social history:: Smoking status: Patient denies any tobacco usage or history of. - Family history:: not pertinent. ROS: 13:22 Constitutional: Negative for fever, chills, and weight loss, Eyes: Negative for injury, sara pain, redness, and discharge, ENT: Negative for injury, pain, and discharge, Neck: Negative for injury, pain, and swelling, Cardiovascular: Negative for chest pain, palpitations, and edema, Respiratory: Negative for shortness of breath, cough, wheezing, and pleuritic chest pain, Back: Negative for injury and pain, : Negative for injury, bleeding, discharge, and swelling, MS/Extremity: Negative for injury and deformity, Skin: Negative for injury, rash, and discoloration, Neuro: Negative for headache, weakness, numbness, tingling, and seizure, Psych: Negative for depression, anxiety, suicide ideation, homicidal ideation, and hallucinations, Allergy/Immunology: Negative for hives, rash, and allergies, Endocrine: Negative for neck swelling, polydipsia, polyuria, polyphagia, and marked weight changes, 13:22 Abdomen/GI: Positive for abdominal pain, abdominal cramps, of the right upper quadrant, left upper quadrant, right lower quadrant and abdomen diffusely, Exam: 13:22 Constitutional: This is a well developed, well nourished patient who is awake, alert, sara and in no acute distress. Head/Face: Normocephalic, atraumatic. Eyes: Pupils equal round and reactive to light, extra-ocular motions intact. Lids and lashes normal. Conjunctiva and sclera are non-icteric and not injected. Cornea within normal limits. Periorbital areas with no swelling, redness, or edema. ENT: Nares patent. No nasal discharge, no septal abnormalities noted. Tympanic membranes are normal and external auditory canals are clear. Oropharynx with no redness, swelling, or masses, exudates, or evidence of obstruction, uvula midline. Mucous membranes moist. Neck: Trachea midline, no thyromegaly or masses palpated, and no cervical lymphadenopathy. Supple, full range of motion without nuchal rigidity, or vertebral point tenderness. No Meningismus. Chest/axilla: Normal chest wall appearance and motion. Nontender with no deformity. No lesions are appreciated. Cardiovascular: Regular rate and rhythm with a normal S1 and S2. No gallops, murmurs, or rubs. Normal PMI, no JVD. No pulse deficits. Respiratory: Lungs have equal breath sounds bilaterally, clear to auscultation and percussion. No rales, rhonchi or wheezes noted. No increased work of breathing, no retractions or nasal flaring. Back: No spinal tenderness. No costovertebral tenderness. Full range of motion. Male : Normal genitalia with no discharge or lesions. Skin: Warm, dry with normal turgor. Normal color with no rashes, no lesions, and no evidence of cellulitis. MS/ Extremity: Pulses equal, no cyanosis. Neurovascular intact. Full, normal range of motion. Neuro: Awake and alert, GCS 15, oriented to person, place, time, and situation. Cranial nerves II-XII grossly intact. Motor strength 5/5 in all extremities. Sensory grossly intact. Cerebellar exam normal. Normal gait. Psych: Awake, alert, with orientation to person, place and time. Behavior, mood, and affect are within normal limits. 13:22 ECG was reviewed by the Attending Physician. 13:22 Abdomen/GI: Inspection: abdomen appears normal, Bowel sounds: normal, Palpation: mild abdominal tenderness, in all quadrants, Rectal exam: mass, is not appreciated, swelling, is not appreciated, tenderness, is not appreciated, NO GROSS BLOOD, Liver: no appreciated palpable abnormalities, Hernia: not appreciated, Vital Signs: 10:15 BP 104 / 80; Pulse 95; Resp 18; Temp 98; Pulse Ox 100% on R/A; ko1 11:40 BP 107 / 78; Pulse 95; Resp 15; Pulse Ox 99% ; ko1 13:54 BP 115 / 81; Pulse 92; Resp 16; Pulse Ox 98% ; ko1 14:52 BP 106 / 73; Pulse 88; Resp 15; Pulse Ox 100% ; ko1 15:30 BP 104 / 83; Pulse 92; Resp 17; Pulse Ox 100% ; tl4 16:10 BP 110 / 77; Pulse 93; Resp 18; Pulse Ox 100% ; tl4 16:30 BP 117 / 89; Pulse 90; Resp 18; Pulse Ox 100% on R/A; tl4 17:00 BP 113 / 72; Pulse 90; Resp 17; Pulse Ox 100% on R/A; tl4 17:30 BP 105 / 66; Pulse 85; Resp 18; Pulse Ox 99% on R/A; tl4 18:00 BP 112 / 75; Pulse 95; Resp 17; Pulse Ox 100% on R/A; tl4 18:30 BP 122 / 68; Pulse 91; Resp 17; Pulse Ox 100% on R/A; tl4 18:49 BP 106 / 66; Pulse 90; Resp 18; Pulse Ox 100% on R/A; tl4 Procedures: 16:59 Peripheral line: by aseptic technique a peripheral line was placed in the left 18g 10cm la1 midline catheter LUE inserted via dynamic US guidance. Returns blood, flushes easily.. MDM: 10:08 Patient medically screened. sara 13:28 Differential diagnosis: gastritis, diverticulitis, diverticulitis, Mesenteric ischemia sara or infarction, non-specific abd pain, Peptic Ulcer Disease, Peritonitis, Pyelonephritis, urinary tract infection. Data reviewed: vital signs, nurses notes, EMS record, lab test result(s), EKG, radiologic studies, CT scan. Consideration of Admission/Observation Patient was admitted/placed on observation. Escalation of care including admission/observation considered. I considered the following discharge prescriptions or medication management in the emergency department Medications were administered in the Emergency Department. See MAR. Test considered but Not performed: Ultrasound NO ABD US. Historians other than the Patient: Family Member: BROTHER. Care significantly affected by the following chronic conditions: Hypertension, Congestive Heart Failure, Cancer, Chronic Kidney Disease, RECTAL CANCER, METASTATIC. Counseling: I had a detailed discussion with the patient and/or guardian regarding the historical points, exam findings, and any diagnostic results supporting the discharge/admit diagnosis, lab results, radiology results, the need to transfer to another facility, for higher level of care, [facility] does not immediately have the required specialist. 10/03 10:13 Order name: Type And Screen [facility] 10/03 10:13 Order name: Basic Metabolic Panel; Complete Time: 13:09 [facility] 10/03 10:13 Order name: CBC with Diff [facility] 10/03 10:13 Order name: LFT's; Complete Time: 13:09 [facility] 10/03 10:13 Order name: Magnesium; Complete Time: 13:09 [facility] 10/03 10:13 Order name: NT PRO-BNP; Complete Time: 13:09 [facility] 10/03 10:13 Order name: PT-INR; Complete Time: 13:09 [facility] 10/03 10:13 Order name: Troponin HS; Complete Time: 13:09 [facility] 10/03 10:13 Order name: Urinalysis w/ reflexes; Complete Time: 13:09 [facility] 10/03 10:46 Order name: Urine Culture [facility] 10/03 13:24 Order name: Bb Add On bd 10/03 13:30 Order name: SARS RAPID bd 10/03 13:37 Order name: Packed RBC Leukored [facility] 10/03 14:52 Order name: Manual Differential [facility] 10/03 10:13 Order name: XRAY Chest (1 view); Complete Time: 13:09 [facility] 10/03 12:40 Order name: Abdomen ; Complete Time: 13:59 [facility] 10/03 10:13 Order name: EKG; Complete Time: 10:14 [facility] 10/03 10:13 Order name: Cardiac monitoring; Complete Time: 10:16 [facility] 10/03 10:13 Order name: EKG - Nurse/Tech; Complete Time: 11:33 [facility] 10/03 10:13 Order name: IV Saline Lock; Complete Time: 11:57 [facility] 10/03 10:13 Order name: Labs collected and sent; Complete Time: 11:57 [facility] 10/03 10:13 Order name: O2 Per Protocol; Complete Time: 10:16 [facility] 10/03 10:13 Order name: O2 Sat Monitoring; Complete Time: 10:16 [facility] 10/03 13:22 Order name: IV Saline Lock - Large Bore; Complete Time: 13:24 [facility] 10/03 13:30 Order name: Transfuse; Complete Time: 14:35 [facility] 10/03 18:38 Order name: PO challenge: juice sara EC:22 Rate is 97 beats/min. Rhythm is regular. QRS [place] is Normal. [place] interval is normal. QRS sara interval is normal. QT interval is normal. No Q waves. T waves are Normal. No ST changes noted. Clinical impression: NSR w/ Non-specific ST/T Changes and No evidence of ischemia. Interpreted by me. Reviewed by me. Administered Medications: 17:09 Discontinued: ns 0.9% 1000 ml IV at 125 ml/hr continuous tl4 11:55 Drug: NS 0.9% IV 1000 ml IV at 125 ml/hr continuous Route: IV; Rate: 125 ml/hr; Site: ko right upper arm; 11:57 Drug: NS 0.9% IV 500 ml IV at bolus once Route: IV; Rate: bolus; Site: right upper arm; ko1 16:07 Follow up: Response: No adverse reaction; IV Status: Completed infusion tl4 12:57 Drug: Ondansetron IVP 4 mg IVP once; over 2 minutes Route: IVP; Site: right upper arm; ko1 16:07 Follow up: Response: No adverse reaction tl4 13:00 Drug: morphine IVP or IV 4 mg IVP once over 4 mins Route: IVP; Infused Over: 4 mins; ko1 Site: right upper arm; 16:07 Follow up: Response: No adverse reaction tl4 13:49 Drug: Meropenem IV 1 grams IV at per protocol once; (mix in NS 100 mL) Route: IV; Rate: ko1 per protocol; Site: right upper arm; 13:49 Drug: Pantoprazole IVP 40 mg IVP once Route: IVP; Site: right upper arm; ko1 16:07 Follow up: Response: No adverse reaction tl4 17:00 Drug: Ondansetron IVP 4 mg IVP once; over 2 minutes Route: IVP; Infused Over: 2 mins; tl4 Site: left upper arm; 19:08 Follow up: Response: No adverse reaction tl4 17:03 Drug: morphine IVP or IV 4 mg IVP once over 4 mins Route: IVP; Infused Over: 4 mins; tl4 Site: left upper arm; 19:09 Follow up: Response: Pain is decreased tl4 19:07 Drug: Ondansetron IVP 4 mg IVP once; over 2 minutes Route: IVP; Infused Over: 2 mins; tl4 Site: left upper arm; 19:08 Follow up: Response: No adverse reaction tl4 19:08 Drug: morphine IVP or IV 4 mg IVP once over 4 mins Route: IVP; Infused Over: 4 mins; tl4 Site: left upper arm; 19:08 Follow up: Response: No adverse reaction tl4 Disposition Summary: 10/03/23 13:33 Transfer Ordered Notes: Transfer Location: [facility] sara Reason: Higher level of care sara Condition: Stable sara Problem: new sara Symptoms: have improved sara Accepting Physician: MARCIAL BELTRAN(10/03/23 19:19) tl4 Diagnosis - GI Bleed/ Gastrointestinal hemorrhage, unspecified - LOWER sara - Malignant neoplasm of overlapping sites of rectum, anus and anal canal sara - Colostomy status sara - Infection and inflammatory reaction due to nephrostomy catheter, initial encounter sara - Anemia, unspecified sara - Unspecified kidney failure - CHRONIC sara - UTI/ Urinary tract infection, site not specified sara Forms: - Medication Reconciliation Form sara - SBAR form sara Signatures: Dispatcher [employer] EDSteven Hester MD MD cha Attema, Lee, DRILL OPERATOR AUTOMATIC-C DRILL OPERATOR AUTOMATIC-Cla1 Tiffany Mcnair RN RN ko1 Josue Bradshaw tl4 Corrections: (The following items were deleted from the chart) 12:40 10:14 Abdomen Pelvis W Con+CT.RAD.BRZ ordered. EDMS EDMS 13:34 13:33 VOODOO, PER PT sara sara 13:34 13:34 [facility] :38 13:31 PACKED RBC LEUKORED+BB.LAB.BRZ ordered. EDMS EDMS 13:33 ABO/RH typing ordered. EDMS EDMS 13:33 Antibody Screen ordered. EDMS EDMS 19:19 13:34 [facility] tl4
--- NOTE | 2023-10-03 13:34 | ER ---
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 Has nephrostomy and colostomy. States his colostomy stoma is sore. Gets chemo for rectal cancer. Coronavirus screen: At this time, the client does not indicate any symptoms associated with coronavirus-19. Ebola Screen: No symptoms or risks identified at this time. Initial Sepsis Screen: Does the patient meet any 2 criteria? No. Patient's initial sepsis screen is negative. Does the patient have a suspected source of infection? No. Patient's initial sepsis screen is negative. Risk Assessment: Do you want to hurt yourself or someone else? Patient reports no desire to harm self or others. Onset of symptoms was October 02, 2023 at 15:00. 10:15 Method Of Arrival: EMS: [facility] ko1 10:15 Acuity: JASWINDER 3 ko1 Triage Assessment: 11:38 General: Appears in no apparent distress. Behavior is calm, cooperative, appropriate ko1 for age. Pain: Complains of pain in rectal and colostomy stoma. Historical: - Allergies: 11:38 No Known Allergies; ko1 - PMHx: 11:38 CHEMO; CHF; colon cancer; Gout; Hypertension; ko1 - PSHx: 11:38 Colostomy; L nephrostomy; ko1 - Immunization history:: Adult Immunizations unknown. - Social history:: Smoking status: Patient denies any tobacco usage or history of. - Family history:: not pertinent. Screenin:[address] [facility] ED Fall Risk Assessment (Adult) History of falling in the last 3 months, ko1 including since admission No falls in past 3 months (0 pts) Confusion or Disorientation No (0 pts) Intoxicated or Sedated No (0 pts) Impaired Gait No (0 pts) Mobility Assist Device Used No (0 pt) Altered Elimination No (0 pt) Score/Fall Risk Level 0 - 2 = Low Risk Oriented to surroundings, Maintained a safe environment, Educated pt \T\ family on fall prevention, incl call for assistance when getting out of bed, Assessed \T\ reinforced patient's understanding of fall precautions, Provided non-skid footwear, Hourly rounding (assess needs \T\ fall precautionary measures) done, Used ambulatory aids as needed (educated on \T\ assisted with), Used gait belt as appropriate. Abuse screen: Denies threats or abuse. Denies injuries from another. Nutritional screening: No deficits noted. Tuberculosis screening: No symptoms or risk factors identified. Assessment: 11:00 Neuro: No deficits noted. Cardiovascular: No deficits noted. Respiratory: No deficits ko1 noted. GI: colostomy. : nephrostomy. EENT: No deficits noted. Derm: No deficits noted. Musculoskeletal: No deficits noted. 19:12 Reassessment: Blood transfusion started. See paper charting. tl4 Vital Signs: 10:15 BP 104 / 80; Pulse 95; Resp 18; Temp 98; Pulse Ox 100% on R/A; ko1 11:40 BP 107 / 78; Pulse 95; Resp 15; Pulse Ox 99% ; ko1 13:54 BP 115 / 81; Pulse 92; Resp 16; Pulse Ox 98% ; ko1 14:52 BP 106 / 73; Pulse 88; Resp 15; Pulse Ox 100% ; ko1 15:30 BP 104 / 83; Pulse 92; Resp 17; Pulse Ox 100% ; tl4 16:10 BP 110 / 77; Pulse 93; Resp 18; Pulse Ox 100% ; tl4 16:30 BP 117 / 89; Pulse 90; Resp 18; Pulse Ox 100% on R/A; tl4 17:00 BP 113 / 72; Pulse 90; Resp 17; Pulse Ox 100% on R/A; tl4 17:30 BP 105 / 66; Pulse 85; Resp 18; Pulse Ox 99% on R/A; tl4 18:00 BP 112 / 75; Pulse 95; Resp 17; Pulse Ox 100% on R/A; tl4 18:30 BP 122 / 68; Pulse 91; Resp 17; Pulse Ox 100% on R/A; tl4 18:49 BP 106 / 66; Pulse 90; Resp 18; Pulse Ox 100% on R/A; tl4 ED Course: 10:07 Patient arrived in ED. ko1 10:08 Steven Reeves MD is Attending Physician. sara 10:38 XRAY Chest (1 view) In Process Unspecified. EDMS 11:32 Tiffany Mcnair, RN is Primary Nurse. ko1 11:33 Urine Culture Sent. ko1 11:38 Triage completed. ko1 11:38 Arm band placed on right wrist. Patient placed in an exam room, on a stretcher, on ko1 air sampling and monitoring, on pulse oximetry, Patient notified of wait time. 11:40 Allergy band placed. Bed in low position. Call light in reach. Side rails up X2. ko1 Provided Education on: NA. Client placed on continuous cardiac and pulse oximetry monitoring. NIBP monitoring applied. laboratory monitor on. Door closed. Noise minimized. Lights dimmed. Warm blanket given. 11:45 Inserted saline lock: 20 gauge in right upper arm, using aseptic technique. ,using nj1 aseptic technique. Ultrasound guided. Catheter tip well visualized within vasculature during placement. 11:57 Type And Screen Sent. ko1 11:57 Basic Metabolic Panel Sent. ko1 11:57 CBC with Diff Sent. ko1 11:57 LFT's Sent. ko1 11:57 Magnesium Sent. ko1 11:57 NT PRO-BNP Sent. ko1 11:57 PT-INR Sent. ko1 11:57 Troponin HS Sent. ko1 12:50 CBC with Diff Sent. ko1 13:29 Abdomen In Process Unspecified. EDMS 13:31 initiated transfer to [facility]. bd 13:33 pt declined at [facility] due to no beds at this time, per Kaitlynn. bd 13:39 initiated transfer to [facility]. bd 13:49 SARS RAPID Sent. ko1 13:49 Bb Add On Sent. ko1 14:26 pt accepted in transfer to [facility] by dr Blood admin approval given by erfugio Castrejon, pt going to 2038. 14:35 Packed RBC Leukored Sent. ko1 14:54 No provider procedures requiring assistance completed. Patient transferred, IV remains ko1 in place. 19:18 Pt departed ED with blood transfusing. tl4 Administered Medications: 17:09 Discontinued: ns 0.9% 1000 ml IV at 125 ml/hr continuous tl4 11:55 Drug: NS 0.9% IV 1000 ml IV at 125 ml/hr continuous Route: IV; Rate: 125 ml/hr; Site: ko1 right upper arm; 11:57 Drug: NS 0.9% IV 500 ml IV at bolus once Route: IV; Rate: bolus; Site: right upper arm; ko1 16:07 Follow up: Response: No adverse reaction; IV Status: Completed infusion tl4 12:57 Drug: Ondansetron IVP 4 mg IVP once; over 2 minutes Route: IVP; Site: right upper arm; ko1 16:07 Follow up: Response: No adverse reaction tl4 13:00 Drug: morphine IVP or IV 4 mg IVP once over 4 mins Route: IVP; Infused Over: 4 mins; ko1 Site: right upper arm; 16:07 Follow up: Response: No adverse reaction tl4 13:49 Drug: Meropenem IV 1 grams IV at per protocol once; (mix in NS 100 mL) Route: IV; Rate: ko1 per protocol; Site: right upper arm; 13:49 Drug: Pantoprazole IVP 40 mg IVP once Route: IVP; Site: right upper arm; ko1 16:07 Follow up: Response: No adverse reaction tl4 17:00 Drug: Ondansetron IVP 4 mg IVP once; over 2 minutes Route: IVP; Infused Over: 2 mins; tl4 Site: left upper arm; 19:08 Follow up: Response: No adverse reaction tl4 17:03 Drug: morphine IVP or IV 4 mg IVP once over 4 mins Route: IVP; Infused Over: 4 mins; tl4 Site: left upper arm; 19:09 Follow up: Response: Pain is decreased tl4 19:07 Drug: Ondansetron IVP 4 mg IVP once; over 2 minutes Route: IVP; Infused Over: 2 mins; tl4 Site: left upper arm; 19:08 Follow up: Response: No adverse reaction tl4 19:08 Drug: morphine IVP or IV 4 mg IVP once over 4 mins Route: IVP; Infused Over: 4 mins; tl4 Site: left upper arm; 19:08 Follow up: Response: No adverse reaction tl4 Medication: 14:54 VIS not applicable for this client. ko1 Outcome: 13:33 ER care complete, transfer ordered by MD. ruiz 19:18 Transferred by ground EMS to [facility], tl4 19:18 Condition: stable 19:18 Instructed on the need for transfer, 19:19 Patient left the ED. tl4 Signatures: Dispatcher [employer] EDBetsy Amaya Corey, MD MD cha Oliver, Kathy RN RN ko1 Digna Conner RN RN nj1 Leeann, Josue tl4
--- NOTE | 2023-10-03 13:40 | RAD REPORT ---
EXAM DESCRIPTION: CT - Abdomen Pelvis Wo Contrast - 10/03/2023 1:28 pm CLINICAL HISTORY: Abdominal pain. ABD PAIN COMPARISON: Abdomen Pelvis Wo Contrast dated 09/13/2023; Abdomen Pelvis Wo Contrast dated 023 TECHNIQUE: CT imaging of the abdomen and pelvis was performed without contrast. Solid organ, bowel a nd vascular assessment is limited due to lack of IV and oral contrast. All CT scans are performed using dose optimization technique as appropriate and may include automated exposure control or mA/KV adjustment according to patient size. FINDINGS: Multiple varying size pulmonary nodules are seen in both lung bases, without significant i nterval change. Multiple low-density masses are again seen throughout the liver parenchyma, incompletely evaluated on this examination. These appear, however, grossly unchanged.Spleen, pancreas, adrenal glands and kidn eys show no significant acute finding. Bilateral percutaneous nephrostomy tubes are noted. No signifi cant hydronephrosis. Small amount of air is seen in the urinary bladder. Irregular area of rectal thickening extending ant eriorly abutting the urinary bladder again seen, grossly unchanged. No free air seen. No bowel obstr uction evident. Moderate stool is present throughout the colon. Right lower quadrant ostomy noted. Moderate lumbar degenerative changes. IMPRESSION: No acute abnormality is detected. Irregular neoplastic rectal mass lesion abutting the urinary bladder with hepatic and pulmonary lesio ns grossly unchanged. Bilateral percutaneous nephrostomy tubes are present without hydronephrosis. A limited non-contrast examination was performed as detailed.
[2023-10-03 14:04] LABS: SARS-CoV-2 Antigen Rapid Res Negative (Negative)
[2023-10-03 14:51] LABS: Platelet Estimate ADEQ; Platelets, Giant PRESENT
[2023-10-03 14:52] LABS: Blood Morphology Comment NOT SEEN (NOT SEEN)
[2023-10-03 20:18] VITALS: TEMP 98
[2023-10-03 20:31] VITALS: O2SAT 100
[2023-10-03 20:40] VITALS: BP 106/66
--- NOTE | 2023-10-04 12:53 | EKG ---
Test Date: 2023-10-03 Test Time: 10:58:39 Digital Project Coordinator: DEDRA MEASUREMENT RESULTS: Intervals: Rate: 97 HI: 168 QRSD: 82 QT: 344 QTc: 436 [place]: P: 71 HI: 168 QRS: 41 T: 60 INTERPRETIVE STATEMENTS: Normal sinus rhythm Nonspecific ST and T wave abnormality Abnormal ECG Compared to ECG 08/23/2023 00:16:31 ST (T wave) deviation now present Sinus tachycardia no longer present Ventricular premature complex(es) no longer present T-wave abnormality no longer present Electronically Signed On 10-04-23 12:49:56 CEMENT SACK BREAKER by Mayur Birch
== END ==
LOC: ER 10:03
PROC: 30233N1 Transfusion of Nonautologous Red Blood Cells into Peripheral Vein, Percutaneous Approach (ICD-10-PCS; principal; 2023-10-03)
PROC: 05HA33Z Insertion of Infusion Device into Left Brachial Vein, Percutaneous Approach (ICD-10-PCS; 2023-10-03)
DX: K92.2 Gastrointestinal hemorrhage, unspecified (principal); D64.9 Anemia, unspecified; C21.8 Malignant neoplasm of overlapping sites of rectum, anus and anal canal; T83.512A Infection and inflammatory reaction due to nephrostomy catheter, initial encounter; Z93.3 Colostomy status; N39.0 Urinary tract infection, site not specified; I13.0 Hypertensive heart and chronic kidney disease with heart failure and stage 1 through stage 4 chronic kidney disease, or unspecified chronic kidney disease; N18.9 Chronic kidney disease, unspecified; I50.9 Heart failure, unspecified; Z11.52 Encounter for screening for COVID-19
CPT/HCPCS: 93005; 87088; 85025; 81001; 87086; 80048; 36415; 86900; 83735; 86850; 85610; 86901; 80076; 86920 ×2; 84484; 83880; 74176; 71045; 99285; 87811; 36430; 36569; C9113; J2185; J2405 ×3; P9016 ×2; J7050 ×3; J7040; J7030; 87077; 87186

== ENCOUNTER → 2023-10-07 | Emergency (ER) | payer OTHER ==
[~2023-10-07] MED LIST changes: +CEFTRIAXONE 1000 MG/VIAL ONE; +HYDROCODONE/APAP 5/325 MG TAB ONE; +HYDROMORPHONE HCL 1 MG/ML INJ ONE; -Meropenem 1000 MG/VIAL IV ONE; -NA CHLORIDE 0.9% 1,000 ML ONE; -NA CHLORIDE 0.9% 250 ML ONE; -ONDANSETRON 4 MG/2 ML VIAL ONE; -PANTOPRAZOLE 40 MG INJ ONE
[2023-10-07 22:31] LABS: Renal Epithelial <5 /HPF (None Seen); Specific Gravity 1.015 (1.005-1.030); Urine Bacteria <20 /HPF (<20); Urine Bilirubin NEGATIVE (Negative); Urine Blood 3+ (OVER) (Negative); Urine Clarity Extremely Turbid (Clear); Urine Color Yellow (Yellow); Urine Glucose NEGATIVE (Negative); Urine Mucus Slight /HPF (None Seen); Urine Protein 1+ (Negative); Urine RBC >50 /HPF (None Seen); Urine Urobilinogen Normal (Normal); Urine pH 5.5 (5.0-7.0)
[2023-10-07 22:44] LABS: Absolute Lymphocytes (CBC) 0.4 K/uL (0.7-4.9); Hematocrit 28.5 % (39.6-49.0); Lymphocytes % 19.6 % (15.3-44.8); MCV 88.1 fL (80-100); MPV 7.5 fL (7.6-11.3); Platelets 339 thou/uL (152-406); RBC Red Blood Cell Count 3.24 M/uL (4.33-5.43)
[2023-10-07 22:59] LABS: AST/SGOT 17 U/L (15-37); Albumin 2.1 g/dL (3.4-5.0); Alkaline Phosphatase 78 U/L (45-117); BUN Blood Urea Nitrogen 21 mg/dL (7-18); Bicarbonate 26 mEq/L (21-32); Bilirubin Total 0.7 mg/dL (0.2-1.0); Glomerular Filtration Rate 36 ml/min (=/>90); Glucose Level 93 mg/dL (74-106); Lipase 11 U/L (13-75); Potassium 4.6 mEq/L (3.5-5.1); Protein, Total 7.3 g/dL (6.4-8.2); Sodium Level 134 mEq/L (136-145)
[2023-10-07 23:00] LABS: ALT/SGPT < 10 U/L (16-61)
--- NOTE | 2023-10-08 03:12 | EDPHYS ---
Physician Documentation [facility] Name: Edwin Young Age: 58 yrs Sex: Male : 1965 Arrival Date: 10/07/2023 Time: 18:59 Bed 20 Private MD: ED Physician Rashid Mathur HPI: 10/07 19:54 This 58 yrs old Black Male presents to ER via Wheelchair with complaints of Abdominal ci Pain, Rectal Pain. 19:54 Patient is a 58-year-old male with PMH CHF, colon and rectal cancer on chemo, ci hypertension who presents to the ER with chief complaint of recurrent abdominal pain and rectal bleeding for the past few days. Patient reports he gets oral chemo from [facility] and takes Dilaudid for his pain. He took his Dilaudid about 4 hours ago and his pain has not improved. Patient also endorsing no rectal bleeding, history of rectal bleeding reports bleeding is slightly increased. Denies any fever, chills, nausea/vomiting.. Historical: - Allergies: 19:29 No Known Allergies; pf1 - PMHx: 19:29 CHEMO; CHF; colon cancer; Gout; Hypertension; pf1 - PSHx: 19:29 Colostomy; L nephrostomy; pf1 - Immunization history:: Adult Immunizations up to date, Client reports receiving the 2nd dose of the Covid vaccine, Last tetanus immunization: > 10 years ago Flu vaccine is up to date. - Social history:: Smoking status: Patient denies any tobacco usage or history of. Patient/guardian denies using alcohol, street drugs. ROS: 19:54 Constitutional: Negative for body aches, chills, fever, ci 19:54 Cardiovascular: Negative for chest pain, edema, palpitations, 19:54 Respiratory: Negative for dyspnea on exertion, hemoptysis, shortness of breath, 19:54 Abdomen/GI: Positive for abdominal pain, rectal pain, rectal bleeding, Exam: 19:54 Constitutional: This is a chronically ill patient who is awake, alert, and in no acute ci distress. Head/Face: Normocephalic, atraumatic. Eyes: Pupils equal round and reactive to light, extra-ocular motions intact. Lids and lashes normal. Conjunctiva and sclera are non-icteric and not injected. Cornea within normal limits. Periorbital areas with no swelling, redness, or edema. ENT: Nares patent. No nasal discharge, no septal abnormalities noted. Tympanic membranes are normal and external auditory canals are clear. Oropharynx with no redness, swelling, or masses, exudates, or evidence of obstruction, uvula midline. Mucous membranes moist. Neck: Trachea midline, no thyromegaly or masses palpated, and no cervical lymphadenopathy. Supple, full range of motion without nuchal rigidity, or vertebral point tenderness. No Meningismus. Chest/axilla: Normal chest wall appearance and motion. Nontender with no deformity. No lesions are appreciated. Cardiovascular: Regular rate and rhythm with a normal S1 and S2. No gallops, murmurs, or rubs. No JVD. No pulse deficits. Respiratory: Lungs have equal breath sounds bilaterally, clear to auscultation and percussion. No rales, rhonchi or wheezes noted. No increased work of breathing, no retractions or nasal flaring. Abdomen/GI: Soft, nondistended with normal bowel sounds. No guarding or rebound. Moderate generalized tenderness to palpation. No rebound tenderness or guarding. Bilateral colostomy with brown stool output. Nephrostomy tube present. Back: No spinal tenderness. No costovertebral tenderness. Full range of motion. Skin: Warm, dry with normal turgor. Normal color with no rashes, no lesions, and no evidence of cellulitis. MS/ Extremity: Pulses equal, no cyanosis. Neurovascular intact. Full, normal range of motion. Neuro: Awake and alert, GCS 15, oriented to person, place, time, and situation. Cranial nerves II-XII grossly intact. Motor strength 5/5 in all extremities. Sensory grossly intact. Cerebellar exam normal. Normal gait. Psych: Awake, alert, with orientation to person, place and time. Behavior, mood, and affect are within normal limits. Vital Signs: 19:24 BP 127 / 79; Pulse 100; Resp 18; Temp 98.8; Pulse Ox 100% on R/A; Weight 58.97 kg; pf1 Height 6 ft. 2 in. ; Pain 9/10; 21:00 BP 112 / 84; Pulse 94; Resp 18; Pulse Ox 97% ; cp4 22:09 BP 106 / 76; Pulse 105; Resp 16; Pulse Ox 98% on R/A; Pain 7/10; pf1 23:00 BP 106 / 85; Pulse 115; Resp 18; Pulse Ox 97% on R/A; Pain 7/10; pf1 23:35 BP 128 / 83; Pulse 112; Resp 18; Pulse Ox 98% on R/A; pf1 10/08 00:00 BP 113 / 74; Pulse 102; Resp 16; Pulse Ox 98% on R/A; pf1 01:00 BP 109 / 73; Pulse 103; Resp 18; Pulse Ox 98% on R/A; pf1 02:00 BP 108 / 79; Pulse 101; Resp 16; Pulse Ox 98% on R/A; pf1 03:00 BP 125 / 86; Pulse 95; Resp 16; Temp 98; Pulse Ox 100% on R/A; Pain 5/10; pf1 10/07 19:24 Body Mass Index 16.69 (58.97 kg, 187.96 cm) pf1 10/07 19:24 Pain Scale: Adult pf1 22:09 Pain Scale: Adult pf1 23:00 Pain Scale: Adult pf1 03:00 Pain Scale: Adult pf1 MDM: 10/07 19:38 Patient medically screened. ci 19:54 Differential diagnosis: Malignancy, SBO, UTI, perforated viscus, gastritis. Data ci reviewed: vital signs, nurses notes, Multiple ED visits for similar complaint. Patient was admitted to [facility] on 10/03. ED course: Patient is a 58-year-old male with metastatic colon/rectal cancer who presents with recurrent abdominal and rectal pain/bleeding. Symptoms not controlled by his Dilaudid at home. Will obtain labs, pain control. Patient has had multiple ED visits with multiple CT scans, discussed risk benefits. Patient is high risk of SBO, will obtain CT rule out bowel obstruction. Final disposition is pending imaging and labs.. 20:11 ED course: CT Abdo/pelvis 10/03/23 IMPRESSION: No acute abnormality is detected. ci Irregular neoplastic rectal mass lesion abutting the urinary bladder with hepatic and pulmonary lesions grossly unchanged. Bilateral percutaneous nephrostomy tubes are present without hydronephrosis. A limited non-contrast examination was performed as detailed. Signed By: Emeka Hayden MD Signed AT: 10/03/23 3922. 21:18 Awaiting: labs results. ci 10/08 00:21 ED course: UA concerning for UTI, will send culture, started on Rocephin. Creatinine ci 2.07, improved from 1219, previously 2.35. Gently hydrated with IV fluids. Patient was given Dilaudid for pain. If imaging is negative and pain is controlled, will likely DC.. 03:07 ED course: CT abdomen shows multiple pulmonary and hepatic metastasis, and diffuse ci urinary bladder wall thickening. Patient does have known pulmonary and hepatic metastatic disease. Previous imaging demonstrated urinary bladder wall thickening, empirically covered with Rocephin, will send for culture. Upon discussing discharge with patient, patient now stating that he has leg cramps, no trauma/fall.. 10/07 19:50 Order name: CBC with Diff ci 10/07 19:50 Order name: CMP; Complete Time: 23:30 ci 10/07 23:30 Interpretation: Abnormal: CRE 2.07. ci 10/07 19:50 Order name: Lipase; Complete Time: 23:30 ci 10/07 19:50 Order name: Urinalysis w/ reflexes; Complete Time: 22:49 ci 10/07 23:31 Interpretation: Abnormal: UESTR 250; UWBC 10-20. ci 10/07 22:49 Order name: Urine Culture EDMS 10/07 22:58 Order name: Lactate w/ 2H reflex if indic.; Complete Time: 00:21 ci 10/07 22:49 Order name: CT Abd/Pelvis - Without Contrast ci 10/07 19:50 Order name: IV Saline Lock; Complete Time: 20:46 ci 10/07 19:50 Order name: Labs collected and sent; Complete Time: 20:46 ci Administered Medications: 10/07 20:47 Drug: morphine IVP or IV 4 mg IVP once over 4 mins Route: IVP; Infused Over: 4 mins; cp4 Site: right antecubital; 22:00 Follow up: Response: No adverse reaction; Marked relief of symptoms; Pain is decreased; pf1 RASS: Alert and Calm (0) 23:22 Drug: NS 0.9% IV 500 ml IV at 1000 ml once Route: IV; Rate: 1000 ml; Site: right pf1 forearm; 23:53 Follow up: Response: No adverse reaction pf1 10/08 00:15 Follow up: IV Status: Completed infusion; IV Intake: 500ml pf1 10/07 23:51 Drug: Rocephin IV 1 grams IV at calculated rate once; Given slow IV push per pharmacy pf1 instructions Route: IV; Rate: calculated rate; Site: right forearm; 10/08 00:20 Follow up: IV Status: Completed infusion; IV Intake: 500ml pf1 00:50 Follow up: Response: No adverse reaction pf1 01:01 Drug: HYDROmorphone IVP 1 mg IVP once Route: IVP; Site: right forearm; pf1 02:00 Follow up: Response: No adverse reaction; Marked relief of symptoms; Pain is decreased; pf1 RASS: Alert and Calm (0) 03:20 Drug: HYDROcodone-acetaminophen PO 5 mg-325 mg 1 tabs PO once Route: PO; pf1 03:39 Follow up: Response: No adverse reaction; Marked relief of symptoms; Pain is decreased; pf1 RASS: Alert and Calm (0) Disposition Summary: 10/08/23 03:11 Discharge Ordered Notes: Location: Home ci Condition: Stable ci Diagnosis - Abdominal pain, Generalized - Chronic ci - Disseminated malignant neoplasm, unspecified ci - Chronic kidney disease, unspecified ci - Bladder disorder, unspecified - Bladder wall thickening ci - UTI/ Urinary tract infection, site not specified ci Followup: ci - With: Private Physician - When: 1 - 2 days - Reason: Recheck today's complaints, Continuance of care, Re-evaluation by your physician Discharge Instructions: - Discharge Summary Sheet ci - Urinary Tract Infection, Adult, [id number] ci - Abdominal Pain, Adult, [id number] ci - Metastatic Cancer ci - Chronic Kidney Disease, Adult, [id number] ci - Preventing Chronic Kidney Disease ci Forms: - Medication Reconciliation Form ci - Thank You Letter ci - Antibiotic Education ci - Prescription Opioid Use ci - Patient Portal Instructions ci - Leadership Thank You Letter ci Prescriptions: - Cephalexin 500 mg Oral capsule - take 1 capsule ORAL route every 12 hours for 7 days; 14 capsule; Refills: 0, ci Product Selection Permitted Signatures: Dispatcher [employer] Catalina Hoyos RN RN pf1 Lian Tinoco Chizite ci Corrections: (The following items were deleted from the chart) 10/07 20:04 19:54 This 58 yrs old Black Male presents to ER via Wheelchair with complaints of ci Abdominal Pain, Rectal Pain. ci 23:31 22:49 UESTR 250; UWBC 10-20. ci ci
--- NOTE | 2023-10-08 03:12 | ER ---
Nurse's Notes [facility] Name: Edwin Young Age: 58 yrs Sex: Male : 1965 Arrival Date: 10/07/2023 Time: 18:59 Bed 20 Private MD: Diagnosis: Abdominal pain, Generalized-Chronic;Disseminated malignant neoplasm, unspecified;Chronic kidney disease, unspecified;Bladder disorder, unspecified-Bladder wall thickening ;UTI/ Urinary tract infection, site not specified Presentation: 10/07 19:24 Chief complaint: Patient states: abdominal pain and rectal pain of 9,onset 3 hours. pf1 Patient stated is currently being treated for rectal CA at [facility] with chemo pills. Coronavirus screen: Vaccine status: Patient reports receiving the 2nd dose of the covid vaccine. Client denies travel out of the [place] in the last 14 days. At this time, the client does not indicate any symptoms associated with coronavirus-19. Ebola Screen: Patient negative for fever greater than or equal to 101.5 degrees Fahrenheit, and additional compatible Ebola Virus Disease symptoms. Initial Sepsis Screen: Does the patient meet any 2 criteria? HR > 90 bpm. No. Patient's initial sepsis screen is negative. Does the patient have a suspected source of infection? No. Patient's initial sepsis screen is negative. Risk Assessment: Do you want to hurt yourself or someone else? Patient reports no desire to harm self or others. 19:24 Method Of Arrival: Wheelchair pf1 19:24 Acuity: JASWINDER 3 pf1 Historical: - Allergies: 19:29 No Known Allergies; pf1 - PMHx: 19:29 CHEMO; CHF; colon cancer; Gout; Hypertension; pf1 - PSHx: 19:29 Colostomy; L nephrostomy; pf1 - Immunization history:: Adult Immunizations up to date, Client reports receiving the 2nd dose of the Covid vaccine, Last tetanus immunization: > 10 years ago Flu vaccine is up to date. - Social history:: Smoking status: Patient denies any tobacco usage or history of. Patient/guardian denies using alcohol, street drugs. Screenin:36 [facility] ED Fall Risk Assessment (Adult) History of falling in the last 3 months, cp4 including since admission No falls in past 3 months (0 pts) Confusion or Disorientation No (0 pts) Intoxicated or Sedated No (0 pts) Impaired Gait No (0 pts) Mobility Assist Device Used No (0 pt) Altered Elimination No (0 pt) Score/Fall Risk Level 0 - 2 = Low Risk Oriented to surroundings, Maintained a safe environment, Educated pt \T\ family on fall prevention, incl call for assistance when getting out of bed, Assessed \T\ reinforced patient's understanding of fall precautions, Hourly rounding (assess needs \T\ fall precautionary measures) done. Abuse screen: Denies threats or abuse. Nutritional screening: No deficits noted. Tuberculosis screening: No symptoms or risk factors identified. Assessment: 19:36 General: Appears in no apparent distress. Behavior is calm, cooperative, appropriate cp4 for age. Pain: Complains of pain in rectum. GI: Bowel sounds present X 4 quads. Abd is soft and non tender X 4 quads. 22:00 General: Appears in no apparent distress. uncomfortable, well developed, Behavior is pf1 calm, cooperative, appropriate for age, quiet. 22:00 Pain: Complains of pain in abdomen and rectal pain Pain currently is 7 out of 10 on a pf1 pain scale. Neuro: No deficits noted. Level of Consciousness is awake, alert, obeys commands, Oriented to person, place, time, situation. Cardiovascular: No deficits noted. Capillary refill < 3 seconds Patient's skin is warm and dry. Respiratory: No deficits noted. Airway is patent Respiratory effort is even, unlabored, Respiratory pattern is regular, symmetrical. GI: Abdomen is flat, non-distended, Colostomy site Ileostomy site is clean and dry. Ostomy appliance is intact. : Urine is clear, patient has nephrostomy bag to left kidney. EENT: No deficits noted. No signs and/or symptoms were reported regarding the EENT system. 23:00 Reassessment: Patient appears in no apparent distress at this time. Patient and/or pf1 family updated on plan of care and expected duration. Pain level reassessed. Patient is alert, oriented x 3, equal unlabored respirations, skin warm/dry/pink. Patient states symptoms have not improved. 23:56 Reassessment: Patient appears in no apparent distress at this time. No changes from pf1 previously documented assessment. Patient and/or family updated on plan of care and expected duration. Pain level reassessed. Patient is alert, oriented x 3, equal unlabored respirations, skin warm/dry/pink. 10/08 01:00 Reassessment: Patient appears in no apparent distress at this time. No changes from pf1 previously documented assessment. Patient and/or family updated on plan of care and expected duration. Pain level reassessed. Patient is alert, oriented x 3, equal unlabored respirations, skin warm/dry/pink. 02:00 Reassessment: Patient appears in no apparent distress at this time. Patient and/or pf1 family updated on plan of care and expected duration. Pain level reassessed. Patient is alert, oriented x 3, equal unlabored respirations, skin warm/dry/pink. Patient states symptoms have improved. 02:55 Reassessment: Upon Dr. Mathur explaining test results and discharge instructions pf1 to patient, patient started complaining of left leg cramps. Vital Signs: 10/07 19:24 BP 127 / 79; Pulse 100; Resp 18; Temp 98.8; Pulse Ox 100% on R/A; Weight 58.97 kg; pf1 Height 6 ft. 2 in. ; Pain 9/10; 21:00 BP 112 / 84; Pulse 94; Resp 18; Pulse Ox 97% ; cp4 22:09 BP 106 / 76; Pulse 105; Resp 16; Pulse Ox 98% on R/A; Pain 7/10; pf1 23:00 BP 106 / 85; Pulse 115; Resp 18; Pulse Ox 97% on R/A; Pain 7/10; pf1 23:35 BP 128 / 83; Pulse 112; Resp 18; Pulse Ox 98% on R/A; pf1 10/08 00:00 BP 113 / 74; Pulse 102; Resp 16; Pulse Ox 98% on R/A; pf1 01:00 BP 109 / 73; Pulse 103; Resp 18; Pulse Ox 98% on R/A; pf1 02:00 BP 108 / 79; Pulse 101; Resp 16; Pulse Ox 98% on R/A; pf1 03:00 BP 125 / 86; Pulse 95; Resp 16; Temp 98; Pulse Ox 100% on R/A; Pain 5/10; pf1 10/07 19:24 Body Mass Index 16.69 (58.97 kg, 187.96 cm) pf1 10/07 19:24 Pain Scale: Adult pf1 22:09 Pain Scale: Adult pf1 23:00 Pain Scale: Adult pf1 03:00 Pain Scale: Adult pf1 ED Course: 10/07 19:01 Patient arrived in ED. ts1 19:29 Triage completed. pf1 19:34 Lian Tinoco is Primary Nurse. cp4 19:36 Bed in low position. Call light in reach. Side rails up X 1. cp4 19:36 Arm band placed on right wrist. pf1 19:38 Rashid Mathur is Attending Physician. ci 20:46 CBC with Diff Sent. cp4 20:46 CMP Sent. cp4 20:46 Lipase Sent. cp4 20:47 Inserted saline lock: 24 gauge in right antecubital area, using aseptic technique. cp4 Blood collected. 22:16 Urinalysis w/ reflexes Sent. pf1 22:18 No provider procedures requiring assistance completed. pf1 23:22 Lactate w/ 2H reflex if indic. Sent. pf1 23:55 CT Abd/Pelvis - Without Contrast In Process Unspecified. EDMS 10/08 03:25 IV discontinued, intact, bleeding controlled, No redness/swelling at site. Pressure pf1 dressing applied. 03:30 Provided Education on: prescription and to follow up. pf1 Administered Medications: 10/07 20:47 Drug: morphine IVP or IV 4 mg IVP once over 4 mins Route: IVP; Infused Over: 4 mins; cp4 Site: right antecubital; 22:00 Follow up: Response: No adverse reaction; Marked relief of symptoms; Pain is decreased; pf1 RASS: Alert and Calm (0) 23:22 Drug: NS 0.9% IV 500 ml IV at 1000 ml once Route: IV; Rate: 1000 ml; Site: right pf1 forearm; 23:53 Follow up: Response: No adverse reaction pf1 10/08 00:15 Follow up: IV Status: Completed infusion; IV Intake: 500ml pf1 10/07 23:51 Drug: Rocephin IV 1 grams IV at calculated rate once; Given slow IV push per pharmacy pf1 instructions Route: IV; Rate: calculated rate; Site: right forearm; 10/08 00:20 Follow up: IV Status: Completed infusion; IV Intake: 500ml pf1 00:50 Follow up: Response: No adverse reaction pf1 01:01 Drug: HYDROmorphone IVP 1 mg IVP once Route: IVP; Site: right forearm; pf1 02:00 Follow up: Response: No adverse reaction; Marked relief of symptoms; Pain is decreased; pf1 RASS: Alert and Calm (0) 03:20 Drug: HYDROcodone-acetaminophen PO 5 mg-325 mg 1 tabs PO once Route: PO; pf1 03:39 Follow up: Response: No adverse reaction; Marked relief of symptoms; Pain is decreased; pf1 RASS: Alert and Calm (0) Medication: 10/07 19:36 VIS not applicable for this client. cp4 Intake: 10/08 00:15 IV: 500ml; Total: 500ml. pf1 00:20 IV: 500ml; Total: 1000ml. pf1 Outcome: 03:11 Discharge ordered by MD. ci 03:30 Discharged to home via wheelchair, with family, pf1 03:30 Condition: improved 03:30 Discharge instructions given to patient, family, Instructed on discharge instructions, follow up and referral plans. Demonstrated understanding of instructions, follow-up care, medications, Prescriptions given X 1, 03:42 Patient left the ED. pf1 Signatures: Dispatcher [employer] Catalina Hoyos RN RN pf1 Mer Perez PAS PAS ts1 Potter, Christina cp4 Rashid Mathur
[2023-10-08 04:46] LABS: White Blood Cell Scan OK (OK)
[2023-10-08 04:47] LABS: Blood Morphology Comment NOT SEEN (NOT SEEN); Platelet Estimate ADEQ
[2023-10-08 05:33] VITALS: BP 125/86; TEMP 98; O2SAT 100
--- NOTE | 2023-10-09 13:23 | RAD REPORT ---
EXAM DESCRIPTION: CT - Abdomen Pelvis Wo Contrast - 10/08/2023 7:21 am CLINICAL HISTORY: ABD PAIN COMPARISON: 09/13/2023. TECHNIQUE: CT ABDOMEN PELVIS WITHOUT IV CONTRAST on 10/07/2023 10:49 PM [employer] This exam was performed according to our departmental dose-optimization program, which includes autom ated exposure control, adjustment of the mA and/or kV according to patient size and/or use of iterati ve reconstruction technique. FINDINGS: There are multiple bibasilar pulmonary nodules measuring up to 11 mm. Abdomen: Liver is slightly heterogeneous with multiple underlying masses measuring up to 6.3 cm. Ther e is no biliary dilatation. Gallbladder is normally distended. The pancreas and spleen are normal in appearance. Adrenal glands are normal. There are bilateral percutaneous nephrostomy catheters. Abdominal aorta is normal in course and caliber without aneurysm. There is no free air. There is no r etroperitoneal adenopathy. Pelvis: There is no bowel obstruction. The urinary bladder is moderately thickened measuring up to 1. 3 cm. There is no free fluid. Appendix is not clearly seen. There is a left lower quadrant ostomy. Skeleton: There are no acute osseous findings. No suspicious bony lesions. IMPRESSION: Multiple pulmonary and hepatic metastases. Diffuse urinary bladder wall thickening. Somewhat limited study due to lack of IV and oral contrast. Electronically signed by: Cooper Mcmahon MD 10/08/2023 12:20 AM [employer] Due to temporary technical issues with the PACS/Fluency reporting system, reports are being signed by the in house radiologists without review as a courtesy to insure prompt reporting. The interpreting radiologist is fully responsible for the content of the report.
== END ==
LOC: ER 18:59
DX: R10.84 Generalized abdominal pain (principal); C80.0 Disseminated malignant neoplasm, unspecified; C78.7 Secondary malignant neoplasm of liver and intrahepatic bile duct; C78.00 Secondary malignant neoplasm of unspecified lung; I13.0 Hypertensive heart and chronic kidney disease with heart failure and stage 1 through stage 4 chronic kidney disease, or unspecified chronic kidney disease; N18.9 Chronic kidney disease, unspecified; I50.9 Heart failure, unspecified; N39.0 Urinary tract infection, site not specified; C18.9 Malignant neoplasm of colon, unspecified
CPT/HCPCS: 87088; 85025; 81001; 87086; 36415; 83605; 83690; 80053; 74176; 99284; J7040; J0696

== ENCOUNTER → 2023-10-13 | Emergency (ER) | payer OTHER ==
[~2023-10-13] MED LIST changes: +APIXABAN 5 MG TABLET ONE; -CEFTRIAXONE 1000 MG/VIAL ONE; -HYDROCODONE/APAP 5/325 MG TAB ONE; +HYDROMORPHONE HCL 0.5 MG/0.5 ML INJ ONE; +NA CHLORIDE 0.9% 1,000 ML ONE; -NA CHLORIDE 0.9% 500 ML ONE; +ONDANSETRON 4 MG/2 ML VIAL ONE
--- NOTE | 2023-10-13 05:51 | EDPHYS ---
Physician Documentation [facility] Name: Edwin Young Age: 58 yrs Sex: Male : 1965 Arrival Date: 10/13/2023 Time: 04:46 Bed 8 Private MD: CRISTEL Physician Steven Reeves HPI: 10/13 05:00 This 58 yrs old Black Male presents to ER via EMS with complaints of Left Leg Pain. cp 05:00 The patient presents with pain, that is acute. The complaints affect the left leg. cp Context: resulted from an unknown cause. Onset: The symptoms/episode began/occurred 2 day(s) ago. Historical: - Allergies: 04:55 No Known Allergies; km8 - PMHx: 04:55 CHEMO; CHF; colon cancer; Gout; Hypertension; km8 - PSHx: 04:55 Colostomy; L nephrostomy; km8 - Immunization history:: Client reports receiving the 2nd dose of the Covid vaccine, Flu vaccine is up to date. - Social history:: Smoking status: Patient denies any tobacco usage or history of. Patient/guardian denies using alcohol, the patient reports quitting approximately [address], [address] drugs, the patient reports quitting approximately 20 years ago. ROS: 05:07 Constitutional: Negative for chills, fever, poor PO intake, cp 05:07 Cardiovascular: Negative for chest pain, edema, 05:07 Respiratory: Negative for shortness of breath, wheezing, 05:07 Abdomen/GI: Negative for vomiting, diarrhea, 05:07 MS/extremity: Positive for pain, tenderness, of the left leg, stiffness, 05:07 Neuro: Negative for altered mental status, 05:07 All other systems are negative, Exam: 05:08 Head/Face: Normocephalic, atraumatic. cp 05:08 Constitutional: The patient appears in no acute distress, alert, awake, non-toxic, well developed, well nourished, 05:08 Chest/axilla: Inspection: normal, 05:08 Cardiovascular: Rate: tachycardic, 05:08 Respiratory: the patient does not display signs of respiratory distress, Respirations: normal, no use of accessory muscles, no retractions, 05:08 Abdomen/GI: Inspection: abdomen appears normal, Palpation: abdomen is soft and non-tender, in all quadrants, 05:08 Back: pain, is absent, 05:08 Musculoskeletal/extremity: Extremities: noted in the left leg: pain, tenderness, There is no evidence of decreased ROM, deformity, Vital Signs: 04:49 BP 132 / 91; Pulse 106; Resp 16; Temp 97.6; Pulse Ox 100% on R/A; Weight 68.04 kg (R); km8 Height 6 ft. 2 in. (R); Pain 10/10; 07:32 BP 126 / 88; Pulse 92; Resp 15; Pulse Ox 99% ; ko1 04:49 Body Mass Index 19.26 (68.04 kg, 187.96 cm) km8 04:49 Pain Scale: Adult km8 Juan F Coma Score: 04:53 Eye Response: spontaneous(4). Motor Response: obeys commands(6). Verbal Response: km8 oriented(5). Total: 15. MDM: 04:53 Patient medically screened. cp 05:48 Differential diagnosis: contusion, tendonitis. Data reviewed: vital signs, nurses [facility] notes, lab test result(s), radiologic studies, ultrasound. Consideration of Admission/Observation Escalation of care including admission/observation considered. I considered the following discharge prescriptions or medication management in the emergency department Medications were administered in the Emergency Department. See MAR. Independent interpretation of the following test(s) in the Emergency Department Radiology Department Ultrasound: My interpretation is usg positive for dvt, known positive dvt on eliquis already due for morning dose. Test considered but Not performed: EKG: no ekg. 10/13 05:43 Order name: CBC with Diff; Complete Time: 07:11 [facility] 10/13 05:43 Order name: Comprehensive Metabolic Panel; Complete Time: 07:11 [facility] 10/13 05:43 Order name: PT-INR; Complete Time: 07:11 [facility] 10/13 05:03 Order name: US Extremity Venous Unilateral Ltd cp 10/13 05:03 Order name: Lower Extremity Artery Uni Ltd [facility] Administered Medications: 05:13 Drug: morphine IM 4 mg IM once Route: IM; Site: left ventrogluteal; [facility] 06:08 Follow up: Response: No adverse reaction; Pain is unchanged, physician notified [facility] 05:46 CANCELLED (Duplicate Order): morphineor iv 4 mg IVP once over 4 mins [facility] 06:14 Drug: NS 0.9% IV 1000 ml IV at 1 bolus Per protocol; 1000 mL bolus Route: IV; Rate: 1 tm6 bolus; Site: Port-a-cath; 06:14 Drug: Ondansetron IVP 4 mg IVP once; over 2 minutes Route: IVP; Site: Port-a-cath; tm6 06:14 Drug: HYDROmorphone IVP 1 mg IVP once Route: IVP; Site: Port-a-cath; tm6 06:14 Drug: Eliquis PO 5 mg PO once Route: PO; tm6 07:19 Drug: HYDROmorphone IVP 0.5 mg IVP once Route: IVP; Site: Port-a-cath; ko1 Disposition: 05:47 Co-signature as Attending Physician, Steven Reeves MD I agree with the assessment and sara plan of care. Disposition Summary: 10/13/23 05:51 Discharge Ordered Notes: Location: Home sara Problem: new sara Symptoms: have improved sara Condition: Fair sara Diagnosis - Acute embolism and thrombosis of other specified deep vein of left lower extremity sara - Unspecified kidney failure - chronic sara - Anemia, unspecified sara Followup: sara - With: Private Physician - When: 2 - 3 days - Reason: Recheck today's complaints, Continuance of care, Re-evaluation by your physician Discharge Instructions: - Discharge Summary Sheet sara - Deep Vein Thrombosis sara - Colorectal Cancer sara - Chronic Kidney Disease, Adult, [id number] sara Forms: - Medication Reconciliation Form sara - Thank You Letter sara - Antibiotic Education sara - Prescription Opioid Use sara - Patient Portal Instructions sara - Leadership Thank You Letter sara Prescriptions: - Eliquis 5 mg Oral tablet - take 1 tablet ORAL route 2 times per day; 20 tablet; Refills: 0, Product sara Selection Permitted Signatures: Dispatcher [employer] Steven Walker MD MD cha Page, Corey, PA PA cp Oliver, Kathy, RN RN ko1 Joan Patton, RN RN km8 Erick Shields RN RN tm6 Corrections: (The following items were deleted from the chart) 05:46 05:44 morphine IVP or IV 4 mg IVP once over 4 mins ordered. sara sara
--- NOTE | 2023-10-13 05:51 | ER ---
Nurse's Notes [facility] Name: Edwin Young Age: 58 yrs Sex: Male : 1965 Arrival Date: 10/13/2023 Time: 04:46 Bed 8 Private MD: Diagnosis: Acute embolism and thrombosis of other specified deep vein of left lower extremity;Unspecified kidney failure-chronic;Anemia, unspecified Presentation: 10/13 04:49 Chief complaint: EMS states: tone out for left leg pain starting 3 hours ago. km8 Coronavirus screen: Client denies travel out of the [place] in the last 14 days. Ebola Screen: No symptoms or risks identified at this time. Initial Sepsis Screen: Does the patient meet any 2 criteria? HR > 90 bpm. No. Patient's initial sepsis screen is negative. Does the patient have a suspected source of infection? No. Patient's initial sepsis screen is negative. Risk Assessment: Do you want to hurt yourself or someone else? Patient reports no desire to harm self or others. Onset of symptoms was October 13, 2023 at 02:00. 04:49 Method Of Arrival: EMS: [facility] km8 04:49 Acuity: JASWINDER 3 km8 Triage Assessment: 04:49 General: Appears in no apparent distress. uncomfortable, Behavior is calm, cooperative, km8 appropriate for age. Pain: Complains of pain in left leg Pain currently is 10 out of 10 on a pain scale. EENT: No signs and/or symptoms were reported regarding the EENT system. Neuro: Reyna Agitation-Sedation Scale (RASS): 0 - Alert and Calm Level of Consciousness is awake, alert, obeys commands, Oriented to person, place, time, situation. Cardiovascular: Denies chest pain, shortness of breath, Capillary refill < 3 seconds Patient's skin is warm and dry. Respiratory: Airway is patent Respiratory effort is even, unlabored, Respiratory pattern is regular, symmetrical. GI: No signs and/or symptoms were reported involving the gastrointestinal system. Colostomy site Ileostomy site is clean and dry. Ostomy appliance is intact. : No signs and/or symptoms were reported regarding the genitourinary system. bilateral nephrostomy tubes. Derm: No signs and/or symptoms reported regarding the dermatologic system. Skin is intact, Skin is dry, Skin is pink, warm \T\ dry. Skin temperature is warm. Musculoskeletal: Range of motion: limited in bilateral legs. Historical: - Allergies: 04:55 No Known Allergies; km8 - PMHx: 04:55 CHEMO; CHF; colon cancer; Gout; Hypertension; km8 - PSHx: 04:55 Colostomy; L nephrostomy; km8 - Immunization history:: Client reports receiving the 2nd dose of the Covid vaccine, Flu vaccine is up to date. - Social history:: Smoking status: Patient denies any tobacco usage or history of. Patient/guardian denies using alcohol, the patient reports quitting approximately [address] ago, [address] drugs, the patient reports quitting approximately 20 years ago. Screenin:53 [facility] ED Fall Risk Assessment (Adult) History of falling in the last 3 months, km8 including since admission No falls in past 3 months (0 pts) Confusion or Disorientation No (0 pts) Intoxicated or Sedated No (0 pts) Impaired Gait No (0 pts) Mobility Assist Device Used No (0 pt) Altered Elimination No (0 pt) Score/Fall Risk Level 0 - 2 = Low Risk Oriented to surroundings, Maintained a safe environment, Educated pt \T\ family on fall prevention, incl call for assistance when getting out of bed, Assessed \T\ reinforced patient's understanding of fall precautions. Abuse screen: Denies threats or abuse. Denies injuries from another. Nutritional screening: No deficits noted. Tuberculosis screening: No symptoms or risk factors identified. Assessment: 04:53 General: see triage notes/assessment. km8 Vital Signs: 04:49 BP 132 / 91; Pulse 106; Resp 16; Temp 97.6; Pulse Ox 100% on R/A; Weight 68.04 kg (R); km8 Height 6 ft. 2 in. (R); Pain 10/10; 07:32 BP 126 / 88; Pulse 92; Resp 15; Pulse Ox 99% ; ko1 04:49 Body Mass Index 19.26 (68.04 kg, 187.96 cm) km8 04:49 Pain Scale: Adult km8 Juan F Coma Score: 04:53 Eye Response: spontaneous(4). Motor Response: obeys commands(6). Verbal Response: km8 oriented(5). Total: 15. ED Course: 04:48 Patient arrived in ED. km8 04:49 Arm band placed on right wrist. km8 04:51 Triage completed. km8 04:53 Steven Reeves MD is Attending Physician. cp 04:53 Patient has correct armband on for positive identification. Call light in reach. Side km8 rails up X2. Client placed on continuous cardiac and pulse oximetry monitoring. NIBP monitoring applied. Door closed. Noise minimized. Warm blanket given. 04:53 No provider procedures requiring assistance completed. Patient maintains SpO2 km8 saturation greater than 95% on room air. 05:48 US Extremity Venous Unilateral Ltd In Process Unspecified. EDMS 05:48 Lower Extremity Artery Uni Ltd US In Process Unspecified. EDMS 06:07 Accessed Port-a-Cath. using accessed w/ # 20 Sanchez needle, ,sterile technique, Clean \T\ km8 dry. Dressing intact. Good blood return. Flushes easily. 06:08 PT-INR Sent. km8 06:08 Comprehensive Metabolic Panel Sent. km8 06:08 CBC with Diff Sent. km8 07:32 Tiffany Mcnair, RN is Primary Nurse. ko1 07:32 Provided Education on: NA. ko1 07:32 deaccessed port, bleeding controlled, dressing applied. ko1 Administered Medications: 05:13 Drug: morphine IM 4 mg IM once Route: IM; Site: left ventrogluteal; km8 06:08 Follow up: Response: No adverse reaction; Pain is unchanged, physician notified km8 05:46 CANCELLED (Duplicate Order): morphineor iv 4 mg IVP once over 4 mins sara 06:14 Drug: NS 0.9% IV 1000 ml IV at 1 bolus Per protocol; 1000 mL bolus Route: IV; Rate: 1 tm6 bolus; Site: Port-a-cath; 06:14 Drug: Ondansetron IVP 4 mg IVP once; over 2 minutes Route: IVP; Site: Port-a-cath; tm6 06:14 Drug: HYDROmorphone IVP 1 mg IVP once Route: IVP; Site: Port-a-cath; tm6 06:14 Drug: Eliquis PO 5 mg PO once Route: PO; tm6 07:19 Drug: HYDROmorphone IVP 0.5 mg IVP once Route: IVP; Site: Port-a-cath; ko1 Medication: 04:53 VIS not applicable for this client. km8 Outcome: 05:51 Discharge ordered by . sara 07:32 Discharged to home via wheelchair, with family, ko1 07:32 Condition: stable 07:32 Discharge instructions given to patient, family, Instructed on discharge instructions, follow up and referral plans. medication usage, Demonstrated understanding of instructions, follow-up care, medications, Prescriptions given X 1, 08:01 Patient left the ED. ko1 Signatures: Dispatcher [employer] EDMS Steven Reeves MD MD cha Page, Corey, FARIDA PA Tiffany Suarez RN RN ko1 Joan Patton, RN RN km8 Erick Shields RN RN tm6 Corrections: (The following items were deleted from the chart) 04:55 04:49 GI: No signs and/or symptoms were reported involving the gastrointestinal system. km8 km8 04:55 04:49 : No signs and/or symptoms were reported regarding the genitourinary system. km8km8
[2023-10-13 06:20] LABS: Absolute Lymphocytes (CBC) 0.3 K/uL (0.7-4.9); Hematocrit 26.5 % (39.6-49.0); Lymphocytes % 9.4 % (15.3-44.8); MCV 87.2 fL (80-100); Platelets 446 thou/uL (152-406); RBC Red Blood Cell Count 3.04 M/uL (4.33-5.43)
[2023-10-13 06:23] LABS: Protime INR 1.58
[2023-10-13 06:32] LABS: AST/SGOT 22 U/L (15-37); Albumin 1.8 g/dL (3.4-5.0); Alkaline Phosphatase 89 U/L (45-117); BUN Blood Urea Nitrogen 27 mg/dL (7-18); Bicarbonate 30 mEq/L (21-32); Bilirubin Total 0.3 mg/dL (0.2-1.0); Glomerular Filtration Rate 45 ml/min (=/>90); Glucose Level 115 mg/dL (74-106); Potassium 3.8 mEq/L (3.5-5.1); Protein, Total 6.5 g/dL (6.4-8.2); Sodium Level 137 mEq/L (136-145)
[2023-10-13 06:40] LABS: ALT/SGPT < 10 U/L (16-61)
[2023-10-13 10:42] VITALS: TEMP 97.6
[2023-10-13 10:49] VITALS: BP 126/88; O2SAT 99
--- NOTE | 2023-10-13 16:54 | RAD REPORT ---
EXAM DESCRIPTION: US Duplex Left Lower Extremity Arteries CLINICAL HISTORY: The patient is 58 years old and is Male; PAIN Bed Name: 8 TECHNIQUE: Real-time duplex ultrasound scan of the left lower extremity arteries integrating B-mode two-dimensional vascular structure, Doppler spectral analysis and color flow Doppler imaging. COMPARISON: No relevant prior studies available. FINDINGS: LEFT COMMON FEMORAL ARTERY: No acute findings. Normal waveform. Peak systolic velocity in the left common femoral artery is 102 cm/s. LEFT SUPERFICIAL FEMORAL ARTERY: No acute findings. Normal waveform. Peak systolic velocity in the left superficial femoral artery is 117 cm/s. LEFT POPLITEAL ARTERY: No acute findings. Normal waveform. Peak systolic velocity in the left popliteal artery is 70 cm/s. LEFT CALF/FOOT ARTERIES: No acute findings. Normal waveform. Peak systolic velocity in the left posterior tibial artery is 74 cm/s. Peak systolic velocity in the left dorsalis pedis artery is 74 cm/s. SOFT TISSUES: Unremarkable VEINS: Nonocclusive thrombus demonstrated within the left common femoral vein, better seen on concu rrent left lower extremity venous ultrasound. IMPRESSION: 1. No left lower arterial occlusion or hemodynamically significant stenosis. 2. Nonocclusive left common femoral venous thrombus. Please see concurrent left lower extremity gilberto ous ultrasound for further evaluation. Dr. Galan discussed these critical findings regarding left lower extremity venous thrombosis with Dr. Reeves via telephone at approximately 07:15 hours EST on 10/13/2023. Electronically signed by: Spenser Galan MD 10/13/2023 06:26 AM PROFESSOR OF SOCIOLOGY Due to temporary technical issues with the PACS/Fluency reporting system, reports are being signed by the in house radiologists without review as a courtesy to insure prompt reporting. The interpreting radiologist is fully responsible for the content of the report.
--- NOTE | 2023-10-13 16:56 | RAD REPORT ---
EXAM DESCRIPTION: ADDENDUM #1 Addendum: Dr. Galan discussed these critical findings with Dr. Reeves via telephone at approximately 07:15 ho ashwin MARTÍNEZ on 10/13/2023. Electronically signed by: Spenser Galan MD 10/13/2023 06:26 AM STAPLE LASTER End of Addendum EXAM DESCRIPTION: US Duplex Left Lower Extremity Veins CLINICAL HISTORY: The patient is 58 years old and is Male; PAIN Bed Name: 8 TECHNIQUE: Real-time duplex ultrasound scan of the left lower extremity veins integrating B-mode two -dimensional vascular structure, Doppler spectral analysis, color flow Doppler imaging and compressio n. COMPARISON: No relevant prior studies available. FINDINGS: DEEP VEINS: Nonocclusive thrombus demonstrated in the left common femoral vein. Occlusiv e thrombus demonstrated throughout the left superficial and popliteal veins. Left posterior tibial vein demonstrate normal compressibility and internal flow. SUPERFICIAL VEINS: Nonocclusive thrombus demonstrated in the left greater saphenous vein. SOFT TISSUES: No acute findings. IMPRESSION: 1. Occlusive and nonocclusive DVT demonstrated in the left common femoral, superficial femoral, and popliteal veins. 2. Nonocclusive thrombus demonstrated in the central left greater saphenous vein. Electronically signed by: Spenser Galan MD 10/13/2023 06:11 AM STAPLE LASTER Due to temporary technical issues with the PACS/Fluency reporting system, reports are being signed by the in house radiologists without review as a courtesy to insure prompt reporting. The interpreting radiologist is fully responsible for the content of the report.
== END ==
LOC: ER 04:46
DX: I82.402 Acute embolism and thrombosis of unspecified deep veins of left lower extremity (principal); I12.9 Hypertensive chronic kidney disease with stage 1 through stage 4 chronic kidney disease, or unspecified chronic kidney disease; N18.9 Chronic kidney disease, unspecified; D64.9 Anemia, unspecified; Z85.038 Personal history of other malignant neoplasm of large intestine
CPT/HCPCS: 85025; 36415; 85610; 80053; 93926; 93971; 96375; 96372; 96374; 99285; J1170 ×2; J2405; J7030

== ENCOUNTER → 2023-10-22 | Emergency (ER) | payer OTHER ==
[~2023-10-22] MED LIST changes: -APIXABAN 5 MG TABLET ONE; +FENTANYL 50 MCG/PATCH TD ONE; +HEPARIN 500 UNIT/5 ML SYR IV ONE; -HYDROMORPHONE HCL 0.5 MG/0.5 ML INJ ONE; -HYDROMORPHONE HCL 1 MG/ML INJ ONE; -NA CHLORIDE 0.9% 1,000 ML ONE
[2023-10-22 07:42] LABS: Absolute Lymphocytes (CBC) 0.6 K/uL (0.7-4.9); Hematocrit 24.2 % (39.6-49.0); Lymphocytes % 7.8 % (15.3-44.8); MCV 86.7 fL (80-100); MPV 6.3 fL (7.6-11.3); Platelets 497 thou/uL (152-406); RBC Red Blood Cell Count 2.79 M/uL (4.33-5.43)
[2023-10-22 08:16] LABS: Albumin 2.2 g/dL (3.4-5.0); Bilirubin Total 0.6 mg/dL (0.2-1.0); Potassium 4.4 mEq/L (3.5-5.1); Protein, Total 7.2 g/dL (6.4-8.2)
--- NOTE | 2023-10-22 08:25 | ER ---
Nurse's Notes [facility] Name: Edwin Young Age: 58 yrs Sex: Male : 1965 Arrival Date: 10/22/2023 Time: 06:33 Bed 8 Private MD: Diagnosis: Anemia in chronic kidney disease;Other chronic pain Presentation: 10/22 06:49 Chief complaint: Patient states: I am having rectal pain and KASH leg pain that has been jb4 going on for the past 3 days. I am also having rectal bleeding, I have not had any N/V/D. Coronavirus screen: At this time, the client does not indicate any symptoms associated with coronavirus-19. Ebola Screen: No symptoms or risks identified at this time. Initial Sepsis Screen: Does the patient meet any 2 criteria? HR > 90 bpm. Yes Does the patient have a suspected source of infection? No. Patient's initial sepsis screen is negative. Risk Assessment: Do you want to hurt yourself or someone else? Patient reports no desire to harm self or others. Onset of symptoms was October 19, 2023. Transition of care: patient was not received from another setting of care. 06:49 Method Of Arrival: Wheelchair jb4 06:49 Acuity: JASWINDER 3 jb4 Historical: - Allergies: 06:51 No Known Allergies; jb4 - PMHx: 06:51 CHEMO; CHF; colon cancer; Gout; Hypertension; jb4 - PSHx: 06:51 Colostomy; KASH Nephrostomy; jb4 - Immunization history:: Adult Immunizations unknown. Screenin:55 [facility] ED Fall Risk Assessment (Adult) History of falling in the last 3 months, km8 including since admission No falls in past 3 months (0 pts) Confusion or Disorientation No (0 pts) Intoxicated or Sedated No (0 pts) Impaired Gait No (0 pts) Mobility Assist Device Used No (0 pt) Altered Elimination No (0 pt) Score/Fall Risk Level 0 - 2 = Low Risk Oriented to surroundings, Maintained a safe environment, Educated pt \\T\\ family on fall prevention, incl call for assistance when getting out of bed, Assessed \\T\\ reinforced patient's understanding of fall precautions, Provided non-skid footwear, Used ambulatory aids as needed (educated on \\T\\ assisted with). Abuse screen: Denies threats or abuse. Denies injuries from another. Nutritional screening: No deficits noted. Tuberculosis screening: No symptoms or risk factors identified. Assessment: 06:55 General: Appears in no apparent distress. uncomfortable, Behavior is calm, cooperative, km8 appropriate for age. Pain: Complains of pain in right leg and left leg and rectal Pain currently is 10 out of 10 on a pain scale. Neuro: Level of Consciousness is awake, alert, obeys commands, Oriented to person, place, time, situation. Cardiovascular: Denies chest pain, shortness of breath, Capillary refill < 3 seconds Patient's skin is warm and dry. Respiratory: Airway is patent Respiratory effort is even, unlabored, Respiratory pattern is regular, symmetrical. GI: Colostomy site Ostomy appliance is intact. colostomy x2 in place Reports rectal bleeding. : bilateral nephrostomy. EENT: No signs and/or symptoms were reported regarding the EENT system. Derm: No signs and/or symptoms reported regarding the dermatologic system. Skin is intact, is healthy with good turgor, Skin is dry, Skin is normal, Skin temperature is warm. Musculoskeletal: Range of motion: intact in all extremities, Reports pain in right leg and left leg Pain is 10 out of 10 on a pain scale. 07:10 General: Appears uncomfortable, Behavior is calm, cooperative. Pain: Complains of pain aa5 in kash leg and rectum Pain began is chronic, pt reports hx of rectal cancer x 2 years. Pt takes Dilaudid PO at home and fentanyl patches for pain. Pt also reports he is currently on oral chemotherapy. Neuro: Level of Consciousness is awake, alert, obeys commands, Oriented to person, place, time, situation. Respiratory: Airway is patent Respiratory effort is even, unlabored, Respiratory pattern is regular, symmetrical. GI: is clean and dry. Ostomy appliance is intact. 2 colostomies noted. : Bilateral nephrostomy. Derm: Skin is dry, Skin is normal, Skin temperature is warm. 07:10 Cardiovascular: Heart tones S1 S2 present swelling noted to kash legs. . Rhythm is aa5 regular. 08:36 Neuro: Level of Consciousness is awake, alert, obeys commands, Oriented to person, aa5 place, time, situation. Respiratory: Airway is patent Respiratory effort is even, unlabored, Respiratory pattern is regular, symmetrical. Derm: Skin is dry, Skin is normal, Skin temperature is warm. 09:15 Reassessment: Patient states feeling better. Neuro: Level of Consciousness is awake, aa5 alert, obeys commands, Oriented to person, place, time, situation. Respiratory: Airway is patent Respiratory effort is even, unlabored, Respiratory pattern is regular, symmetrical. Derm: Skin is dry, Skin is normal, Skin temperature is warm. 09:15 Reassessment: Pt requesting fentanyl patch to be replaced due to being on back order at [facility] pharmacy, was notified. . 09:15 Reassessment: Pt states concerns about going home and being in pain, pt states "every aa5 time I come here I feel better but at home I am in much more pain", pt states he is in the process of attempting to obtain hospital bed for comfort at home. aware. Pt instructed to follow-up with oncology or pain management, pt states he has oncology appointment for 11/02/23. Pt instructed to call his oncologist tomorrow to attempt to get sooner appointment to help with pain control, pt verbalizes understanding. . 09:19 Reassessment: Fentanyl patch out of stock in ER [facility], on the phone with pharmacy [facility] checking if they have any. . 09:35 Neuro: Level of Consciousness is awake, alert, obeys commands, Oriented to person, aa5 place, time, situation. Respiratory: Airway is patent Respiratory effort is even, unlabored, Respiratory pattern is regular, symmetrical. Derm: Skin is dry, Skin is normal, Skin temperature is warm. 09:35 Reassessment: Old fentanyl patch removed, labeled as of 10/14/23. . aa5 Vital Signs: 06:51 BP 128 / 73; Pulse 111; Resp 20; Temp 97.7(TE); Pulse Ox 100% on R/A; Weight 58.97 kg jb4 (R); Height 6 ft. 2 in. (R); Pain 10/10; 07:15 BP 125 / 80; Pulse 93; Resp 16 S; Pulse Ox 100% on R/A; aa5 08:09 BP 129 / 89; Pulse 87; Resp 16 S; Pulse Ox 100% on R/A; aa5 09:15 BP 128 / 84; Pulse 84; Resp 16 S; Temp 97.5(TE); Pulse Ox 99% on R/A; aa5 06:51 Body Mass Index 16.69 (58.97 kg, 187.96 cm) jb4 06:51 Pain Scale: Adult jb4 Juan F Coma Score: 06:55 Eye Response: spontaneous(4). Motor Response: obeys commands(6). Verbal Response: km8 oriented(5). Total: 15. ED Course: 06:35 Patient arrived in ED. gm2 06:49 William Metcalf, RN is Primary Nurse. jb4 06:51 Triage completed. jb4 06:51 Arm band placed on right wrist. jb4 06:54 Joan Patton, RN is Primary Nurse. km8 06:55 Patient has correct armband on for positive identification. Bed in low position. Call km8 light in reach. Side rails up X2. Pulse ox on. NIBP on. Door closed. Noise minimized. Warm blanket given. 06:55 No provider procedures requiring assistance completed. Patient maintains SpO2 km8 saturation greater than 95% on room air. 07:09 Bunny Stokes MD is Attending Physician. ec2 07:15 Accessed Port-a-Cath. using accessed w/ # 20 Sanchez needle, ,sterile technique, per [facility] hospital protocol. Clean \\T\\ dry. Good blood return. Flushes easily. 07:15 Initial lab(s) drawn, by me, sent to lab. aa5 07:35 Amy Louie, RN is Primary Nurse. aa5 09:15 IV discontinued, Port-a-cath dc'd, flushed with 500units Heparin prior to d/c, pt aa5 tolerated well, band aid applied. Administered Medications: 07:18 Drug: Ondansetron IVP 4 mg IVP once; over 2 minutes Route: IVP; Site: Port-a-cath; aa5 07:25 Follow up: Response: No adverse reaction aa5 07:20 Drug: morphine IVP or IV 4 mg IVP once over 4 mins Route: IVP; Infused Over: 4 mins; aa5 Site: Port-a-cath; 07:25 Follow up: Response: No adverse reaction aa5 08:36 Drug: morphine IVP or IV 4 mg IVP once over 4 mins Route: IVP; Infused Over: 4 mins; aa5 Site: Port-a-cath; 09:15 Follow up: Response: No adverse reaction aa5 09:35 Drug: fentaNYL Transdermal Patch (50 mcg/hr) 1 patches Transdermal once {Note: aa5 administered to right upper arm per pt's request ..} Route: Transdermal; Site: anterior chest wall; Medication: 06:55 VIS not applicable for this client. km8 Outcome: 08:25 Discharge ordered by . ec2 09:40 Discharged to home via wheelchair, with family, aa5 09:40 Condition: improved 09:40 Discharge instructions given to patient, Instructed on discharge instructions, follow up and referral plans. Demonstrated understanding of instructions, follow-up care, 09:48 Patient left the ED. aa5 Signatures: Amy Louie, RN RN aa5 William Metcalf, RN RN jb4 Bunny Stokes MD MD 2 Ida Russo [facility] Joan Patton, RN RN km8 Corrections: (The following items were deleted from the chart) 06:51 06:51 PSHx: L nephrostomy; jbChasidy jb4 07:36 07:20 Ondansetron IVP 4 mg IVP in Port-a-cath aa5 aa5 09:47 09:47 fentaNYL Transdermal Patch (50 mcg/hr) 1 patches Transdermal in anterior chest aa5 wall aa5
--- NOTE | 2023-10-22 08:25 | EDPHYS ---
Physician Documentation [facility] Name: Edwin Young Age: 58 yrs Sex: Male : 1965 Arrival Date: 10/22/2023 Time: 06:33 Bed 8 Private MD: ED Physician Bunny Stokes HPI: 10/22 07:15 This 58 yrs old Black Male presents to ER via Wheelchair with complaints of Leg Pain. ec2 07:15 Patient arrives today for evaluation of bilateral leg pain. Patient reports he is ec2 having burning pain in the bilateral calves. Patient reports no injuries or trauma. Endorses rectal pain to nursing however did not complain of this to me. Patient has an ostomy in place, has been having adequate stool output per the patient.. Historical: - Allergies: 06:51 No Known Allergies; jb4 - PMHx: 06:51 CHEMO; CHF; colon cancer; Gout; Hypertension; jb4 - PSHx: 06:51 Colostomy; KASH Nephrostomy; jb4 - Immunization history:: Adult Immunizations unknown. ROS: 07:15 Constitutional: as per hpi ec2 Exam: 07:16 Constitutional: GEN: NAD Head: atraumatic Eyes: EOMI Ears: External ears are ec2 normal. CV: regular rate, bilateral lower extremity edema with chronic skin changes noted. LUNGS: no respiratory distress ABD: non-distended, soft, nontender, ostomy in place. SKIN: no evidence of rashes MSK: no evidence of trauma NEURO: moves all extremities equally Vital Signs: 06:51 BP 128 / 73; Pulse 111; Resp 20; Temp 97.7(TE); Pulse Ox 100% on R/A; Weight 58.97 kg jb4 (R); Height 6 ft. 2 in. (R); Pain 10/10; 07:15 BP 125 / 80; Pulse 93; Resp 16 S; Pulse Ox 100% on R/A; aa5 08:09 BP 129 / 89; Pulse 87; Resp 16 S; Pulse Ox 100% on R/A; aa5 09:15 BP 128 / 84; Pulse 84; Resp 16 S; Temp 97.5(TE); Pulse Ox 99% on R/A; aa5 06:51 Body Mass Index 16.69 (58.97 kg, 187.96 cm) jb4 06:51 Pain Scale: Adult jb4 Juan F Coma Score: 06:55 Eye Response: spontaneous(4). Motor Response: obeys commands(6). Verbal Response: km8 oriented(5). Total: 15. MDM: 07:09 Patient medically screened. ec2 07:16 Data reviewed: vital signs. ED course: Patient arrives today for evaluation of ec2 bilateral leg pain. Examination remarkable for slightly tachycardic individual is otherwise in no acute distress with reassuring vital signs. Will obtain lab work to evaluate for electrolyte disturbances. Suspect patient's chronic pain causing his symptoms today. . 08:14 ED course: Hemoglobin at 8.5, compared to recent lab work, this appears similar.. ec2 08:20 ED course: Creatinine today at 2.13 and GFR of 37. When compared to external records, ec2 this is fairly similar. On reassessment patient is well-appearing in no acute distress. Will discharge home. Return precautions given. Anemia consistent with patient's chronic disease, suspect chronic pain causing his lower bilateral extremity pain. I considered other process such as DVTs, cellulitis, PVD. . 08:24 ED course: On reassessment patient with marked improvement in his symptoms. Will ec2 discharge home, give additional dose of pain medications. Ultimately discussed that he needs to follow-up with his pain doctor and his oncologist to further discuss pain management.. 10/22 07:15 Order name: CBC with Diff; Complete Time: 09:17 ec2 10/22 07:15 Order name: CMP; Complete Time: 08:19 ec2 10/22 09:16 Order name: CBC Smear Scan; Complete Time: 09:17 EDMS Administered Medications: 07:18 Drug: Ondansetron IVP 4 mg IVP once; over 2 minutes Route: IVP; Site: Port-a-cath; aa5 07:25 Follow up: Response: No adverse reaction aa5 07:20 Drug: morphine IVP or IV 4 mg IVP once over 4 mins Route: IVP; Infused Over: 4 mins; aa5 Site: Port-a-cath; 07:25 Follow up: Response: No adverse reaction aa5 08:36 Drug: morphine IVP or IV 4 mg IVP once over 4 mins Route: IVP; Infused Over: 4 mins; aa5 Site: Port-a-cath; 09:15 Follow up: Response: No adverse reaction aa5 09:35 Drug: fentaNYL Transdermal Patch (50 mcg/hr) 1 patches Transdermal once {Note: aa5 administered to right upper arm per pt's request ..} Route: Transdermal; Site: anterior chest wall; Disposition Summary: 10/22/23 08:25 Discharge Ordered Notes: Location: Home ec2 Condition: Stable ec2 Diagnosis - Anemia in chronic kidney disease ec2 - Other chronic pain ec2 Followup: ec2 - With: Private Physician - When: - Reason: Recheck today's complaints Discharge Instructions: - Discharge Summary Sheet ec2 - Chronic Pain, Adult ec2 Forms: - Medication Reconciliation Form ec2 - Thank You Letter ec2 - Antibiotic Education ec2 - Prescription Opioid Use ec2 - Patient Portal Instructions ec2 - Leadership Thank You Letter ec2 Signatures: Dispatcher [employer] Amy Sarmiento RN RN aa5 William Metcalf RN RN jb4 Ky Walker MD MD rt Bunny Stokes MD MD ec2 Joan Patton RN RN km8 Corrections: (The following items were deleted from the chart) 06:51 06:51 PSHx: L nephrostomy; jb4 jb4 07:16 07:15 Patient arrives today for evaluation of bilateral leg pain. Patient reports he is ec2 having burning pain in the bilateral calves. Patient reports no injuries or trauma. Endorses rectal pain to nursing however did not complain of this to me.. ec2 07:16 07:16 Constitutional: No acute distress ec2 ec2
[2023-10-22 09:15] LABS: Platelet Estimate INCR; White Blood Cell Scan OK (OK)
[2023-10-22 09:16] LABS: Blood Morphology Comment NOT SEEN (NOT SEEN)
[2023-10-22 10:03] VITALS: BP 129/89; TEMP 97.7; O2SAT 100
== END ==
LOC: ER 06:33
DX: G89.29 Other chronic pain (principal); D63.1 Anemia in chronic kidney disease; M79.661 Pain in right lower leg; I10 Essential (primary) hypertension; I50.9 Heart failure, unspecified; Z85.038 Personal history of other malignant neoplasm of large intestine
CPT/HCPCS: 85025; 36415; 80053; 96375; 96374; 99285; J1642; J2405

== ENCOUNTER → 2023-12-02 | Emergency (ER) | payer OTHER ==
[~2023-12-02] MED LIST changes: -FENTANYL 50 MCG/PATCH TD ONE; -HEPARIN 500 UNIT/5 ML SYR IV ONE; +POTASSIUM 25 MEQ EFFERV TAB ONE
[2023-12-02 23:16] LABS: Absolute Lymphocytes (CBC) 0.3 K/uL (0.7-4.9); Hematocrit 25.2 % (39.6-49.0); Lymphocytes % 4.3 % (15.3-44.8); MCV 86.7 fL (80-100); MPV 6.9 fL (7.6-11.3); Platelets 369 thou/uL (152-406)
[2023-12-02 23:32] LABS: AST/SGOT 25 U/L (15-37); Albumin 1.4 g/dL (3.4-5.0); Alkaline Phosphatase 154 U/L (45-117); BUN Blood Urea Nitrogen 22 mg/dL (7-18); Bicarbonate 27 mEq/L (21-32); Bilirubin Total 0.3 mg/dL (0.2-1.0); Glomerular Filtration Rate 58 ml/min (=/>90); Glucose Level 116 mg/dL (74-106); Lipase 18 U/L (13-75); Potassium 2.7 mEq/L (3.5-5.1); Protein, Total 6.1 g/dL (6.4-8.2); Sodium Level 136 mEq/L (136-145)
[2023-12-02 23:33] LABS: ALT/SGPT < 10 U/L (16-61)
--- NOTE | 2023-12-03 00:13 | ER ---
Nurse's Notes [facility] Name: Edwin Young Age: 58 yrs Sex: Male : 1965 Arrival Date: 12/02/2023 Time: 22:05 Bed 7 Private MD: Diagnosis: colorectal cancer with rectal discharge Presentation: 12/02 22:10 Chief complaint: EMS states: Pt reports having fecal discharge. Has a colostomy and jb4 ileostomy, reports suppose to have discharge of any kind after his surgery. Coronavirus screen: At this time, the client does not indicate any symptoms associated with coronavirus-19. Ebola Screen: No symptoms or risks identified at this time. Initial Sepsis Screen: Does the patient meet any 2 criteria? HR > 90 bpm. Yes Does the patient have a suspected source of infection? Yes: Acute abdominal pain. Risk Assessment: Do you want to hurt yourself or someone else? Patient reports no desire to harm self or others. Onset of symptoms was December 02, 2023. Transition of care: patient was not received from another setting of care. 22:10 Method Of Arrival: EMS: [facility] jb4 22:10 Acuity: JASWINDER 3 jb4 Historical: - Allergies: 22:15 No Known Allergies; jb4 - PMHx: 22:15 CHEMO; CHF; colon cancer; Gout; Hypertension; jb4 - PSHx: 22:15 KASH Nephrostomy; Colostomy; jb4 Screenin:15 [facility] ED Fall Risk Assessment (Adult) History of falling in the last 3 months, jb4 including since admission No falls in past 3 months (0 pts) Confusion or Disorientation No (0 pts). Abuse screen: Denies threats or abuse. Nutritional screening: No deficits noted. Tuberculosis screening: No symptoms or risk factors identified. Assessment: 22:15 General: Appears in no apparent distress. comfortable, Behavior is calm, cooperative. jb4 Pain: Complains of pain in abdomen Pain does not radiate. Pain currently is 8 out of 10 on a pain scale. Quality of pain is described as tender. Neuro: Level of Consciousness is awake, alert, obeys commands, Oriented to person, place, time, situation. Cardiovascular: Patient's skin is warm and dry. Respiratory: Airway is patent Respiratory effort is even, unlabored, Respiratory pattern is regular, symmetrical. GI: Abdomen is flat, non-distended, Rectal exam: Deferred to physician Colostomy site Ileostomy site is clean and dry. Ostomy appliance is intact. Abdomen is tender to palpation in right lower quadrant and left lower quadrant. : Pt has AKSH nephrostomy. EENT: No signs and/or symptoms were reported regarding the EENT system. Derm: Skin is intact, Skin is dry, Skin is normal, Skin temperature is warm. Musculoskeletal: Circulation, motion, and sensation intact. Range of motion: intact in all extremities. 23:55 Reassessment: Patient appears in no apparent distress at this time. Patient and/or jb4 family updated on plan of care and expected duration. Pain level reassessed. Patient is alert, oriented x 3, equal unlabored respirations, skin warm/dry/pink. 12/03 01:00 Reassessment: Patient appears in no apparent distress at this time. Patient and/or jb4 family updated on plan of care and expected duration. Pain level reassessed. Patient is alert, oriented x 3, equal unlabored respirations, skin warm/dry/pink. 01:19 Reassessment: So Castellanos from [facility] gave permission for me to call and pf1 arrange for transport for patient back to the facility. [facility] ambulance ETA 30 minutes. 02:00 Reassessment: Patient appears in no apparent distress at this time. Patient and/or jb4 family updated on plan of care and expected duration. Pain level reassessed. Patient is alert, oriented x 3, equal unlabored respirations, skin warm/dry/pink. Vital Signs: 12/02 22:10 BP 139 / 87; Pulse 100; Resp 16; Temp 98.5(O); Pulse Ox 98% on R/A; Weight 71 kg (M); jb4 Height 6 ft. 2 in. (R); 23:55 BP 117 / 85; Pulse 98; Resp 16; Pulse Ox 100% on R/A; jb4 12/03 01:00 BP 114 / 87; Pulse 83; Resp 16; Pulse Ox 100% on R/A; jb4 12/02 22:10 Body Mass Index 20.10 (71.00 kg, 187.96 cm) [facility] ED Course: 12/02 22:06 Patient arrived in ED. km8 22:07 Lizbeth Muñoz PA-C is PHCP. ec2 22:10 William Metcalf, RN is Primary Nurse. jb4 22:10 Bnuny Stokes MD is Attending Physician. ec2 22:15 Triage completed. jb4 22:15 Arm band placed on right wrist. jb4 22:15 Patient has correct armband on for positive identification. Call light in reach. Side jb4 rails up X 1. 22:15 No provider procedures requiring assistance completed. jb4 23:16 CT Abd/Pelvis - Without Contrast In Process Unspecified. EDMS 12/03 00:12 Jayy Fernández MD is Referral Physician. sb4 01:00 IV discontinued, intact, bleeding controlled, No redness/swelling at site. Pressure jb4 dressing applied. Administered Medications: 12/02 22:50 Drug: Ondansetron IVP 4 mg IVP once; over 2 minutes Route: IVP; Site: left forearm; jb4 22:50 Drug: morphine IVP or IV 4 mg IVP once over 4 mins Route: IVP; Infused Over: 4 mins; jb4 Site: left forearm; 23:48 Drug: Potassium PO Effervescent Tablet 50 mEq PO once; dissolve in 4 ounces of water or jb4 juice Route: PO; 12/03 00:25 Drug: morphine IVP or IV 4 mg IVP once over 4 mins Route: IVP; Infused Over: 4 mins; jb4 Site: left forearm; Outcome: 00:13 Discharge ordered by . sb4 01:00 Discharged to skilled nursing. Report called to [facility]. jb4 01:00 Condition: stable 01:00 Discharge instructions given to patient, family, Instructed on discharge instructions, Demonstrated understanding of instructions, follow-up care, 02:02 Patient left the ED. jb4 Signatures: Dispatcher [employer] [facility] William Metcalf, RN RN jb4 Lizbeth Muñoz, PARainC PARainC sb4 Catalina Yuen, TJ RN pf1 Bunny Stokes MD MD ec2 Joan Patton RN RN km8
--- NOTE | 2023-12-03 00:13 | EDPHYS ---
Physician Documentation [facility] Name: Edwin Young Age: 58 yrs Sex: Male : 1965 Arrival Date: 12/02/2023 Time: 22:05 Bed 7 Private MD: ED Physician HPI: 12/02 22:22 This 58 yrs old Black Male presents to ER via EMS with complaints of rectal discharge. sb4 22:24 patient with history of colorectal cancer with colostomy and ileostomy presents with sb4 complaints of 3 weeks of abnormal rectal discharge. he believes that he is having BMs via his rectum which is abnormal for him. he also complains of lower abdominal pain and weakness. Historical: - Allergies: 22:15 No Known Allergies; jb4 - PMHx: 22:15 CHEMO; CHF; colon cancer; Gout; Hypertension; jb4 - PSHx: 22:15 KASH Nephrostomy; Colostomy; jb4 ROS: 22:24 Constitutional: Negative for fever, chills, and weight loss, sb4 22:24 Abdomen/GI: Positive for rectal discharge, 22:24 Neuro: Positive for weakness, 22:24 All other systems are negative, Exam: 22:24 Head/Face: Normocephalic, atraumatic. Eyes: Extra-ocular motions intact. Periorbital sb4 areas with no swelling, redness, or edema. ENT: Mucous membranes moist. Cardiovascular: Regular rate and rhythm with a normal S1 and S2. Respiratory: Lungs have equal breath sounds bilaterally, clear to auscultation and percussion. No rales, rhonchi or wheezes noted. No increased work of breathing, no retractions or nasal flaring. Skin: Warm, dry with normal turgor. Normal color with no rashes, no lesions, and no evidence of cellulitis. MS/ Extremity: Pulses equal, no cyanosis. Neurovascular intact. Full, normal range of motion. 22:24 Constitutional: The patient appears in no acute distress, alert, awake, 22:24 Abdomen/GI: Inspection: ostomy x 2, Palpation: abdomen is soft and non-tender, Rectal exam: rectal tone normal, Stool: rectal vault empty, scant amount of smith flecks, the exam is chaperoned by the nurse, Vital Signs: 22:10 BP 139 / 87; Pulse 100; Resp 16; Temp 98.5(O); Pulse Ox 98% on R/A; Weight 71 kg (M); jb4 Height 6 ft. 2 in. (R); 23:55 BP 117 / 85; Pulse 98; Resp 16; Pulse Ox 100% on R/A; jb4 12/03 01:00 BP 114 / 87; Pulse 83; Resp 16; Pulse Ox 100% on R/A; 4 12/02 22:10 Body Mass Index 20.10 (71.00 kg, 187.96 cm) 4 MDM: 12/02 22:09 Patient medically screened. 4 12/03 00:11 Data reviewed: vital signs, nurses notes, lab test result(s), radiologic studies, I sb4 have discussed the patient's presentation/case with the attending Emergency Department Physician; and as a result, I will discharge patient. Consideration of Admission/Observation Escalation of care including admission/observation considered. Care significantly affected by the following chronic conditions: Hypertension, Cancer. Counseling: I had a detailed discussion with the patient and/or guardian regarding the historical points, exam findings, and any diagnostic results supporting the discharge/admit diagnosis, lab results, radiology results, the need for outpatient follow up, a general surgeon, to return to the emergency department if symptoms worsen or persist or if there are any questions or concerns that arise at home. 12/02 22:10 Order name: CBC with Diff; Complete Time: 23:21 4 12/02 22:10 Order name: CMP; Complete Time: 23:37 [facility] 12/02 22:10 Order name: Lipase; Complete Time: 23:37 [facility] 12/02 22:14 Order name: CT Abd/Pelvis - Without Contrast [facility] 12/02 22:10 Order name: IV Saline Lock; Complete Time: 22:50 [facility] 12/02 22:10 Order name: Labs collected and sent; Complete Time: 23:16 sb4 Administered Medications: 12/02 22:50 Drug: Ondansetron IVP 4 mg IVP once; over 2 minutes Route: IVP; Site: left forearm; 4 22:50 Drug: morphine IVP or IV 4 mg IVP once over 4 mins Route: IVP; Infused Over: 4 mins; 4 Site: left forearm; 23:48 Drug: Potassium PO Effervescent Tablet 50 mEq PO once; dissolve in 4 ounces of water or jb4 juice Route: PO; 12/03 00:25 Drug: morphine IVP or IV 4 mg IVP once over 4 mins Route: IVP; Infused Over: 4 mins; jb4 Site: left forearm; Disposition Summary: 12/03/23 00:13 Discharge Ordered Notes: Location: Home sb4 Problem: an ongoing problem sb4 Symptoms: are unchanged sb4 Condition: Stable sb4 Diagnosis - colorectal cancer with rectal discharge sb4 Followup: sb4 - With: Jayy Fernández MD - When: As needed - Reason: Further diagnostic work-up, Recheck today's complaints, Re-evaluation by your physician Discharge Instructions: - Discharge Summary Sheet sb4 Forms: - SBAR form jb4 - Thank You Letter sb4 - Patient Portal Instructions sb4 - Leadership Thank You Letter sb4 Signatures: Dispatcher [employer] William Rabago RN RN jb4 Lizbeth Muñoz PA-C PA-C sbChasidy Corrections: (The following items were deleted from the chart) 12/02 22:22 22:10 Abdomen Pelvis W Con+CT.RAD.BRZ ordered. EDID EDID 22:46 22:24 Abdomen/GI: Inspection: ostomy x 2, Palpation: abdomen is soft and non-tender, sb4 Rectal exam: rectal tone normal, Stool: rectal vault empty, scant amount of smith flecks, sb4 23:50 22:24 patient with history of colorectal cancer ostomy x 2 presents with complaints of sb4 3 weeks of abnormal rectal discharge. he believes that he is having BMs via his rectum which is abnormal for him. he also complains of lower abdominal pain and weakness. sb4
[2023-12-03 02:22] VITALS: BP 114/87; TEMP 98.5; O2SAT 100
--- NOTE | 2023-12-04 11:48 | RAD REPORT ---
EXAM DESCRIPTION: CT - Abdomen Pelvis Wo Contrast - 12/03/2023 6:42 am CLINICAL HISTORY: 58 years Male RECTAL DRAINAGE COMPARISON: None TECHNIQUE: Images were obtained in axial, sagittal, and coronal planes. No intravenous or oral contr ast was administered. This exam was performed according to our departmental dose-optimization program which includes use of Automated Exposure Control, adjustment of the mA and/or kV according to patient size and/or use of iterative reconstruction technique. FINDINGS: Multiple low-attenuation lesions are seen involving the liver consistent with metastatic d isease. Unremarkable spleen, pancreas, gallbladder and adrenal glands bilaterally. Bilateral percutaneous nephrostomy tubes. No definite hydronephrosis bilaterally. Inferior vena cava filter. No obstructing renal or ureteral calculi identified. Air is seen within the bladder. Marked m ucosal thickening involving the bladder. Appendix within normal limits. No bowel obstruction or perforation. Moderate constipation. Ostomy sit e left pelvis. No acute osseous abnormality. Moderate multilevel osteoarthritic change. IMPRESSION: Low-attenuation lesions involving the liver consistent with metastatic disease. Bilatera l percutaneous nephrostomy tubes. No definite hydronephrosis bilaterally. Marked mucosal thickening i nvolving the bladder. The findings could be consistent with cystitis however neoplasm not excluded. A ir within the bladder possibly related to instrumentation. Electronically signed by: Ansley Marie MD 12/03/2023 12:02 AM [facility] Due to temporary technical issues with the PACS/Fluency reporting system, reports are being signed by the in house radiologist without review as a courtesy to ensure prompt reporting. The interpreting r adiologist is fully responsible for the content of the report.
== END ==
LOC: ER 22:05
DX: C18.2 Malignant neoplasm of ascending colon (principal); C21.0 Malignant neoplasm of anus, unspecified; I10 Essential (primary) hypertension; I50.9 Heart failure, unspecified
CPT/HCPCS: 85025; 36415; 83690; 80053; 74176; J2405

== ENCOUNTER → 2023-12-05 | Emergency (ER) | payer OTHER ==
[~2023-12-05] MED LIST changes: +ALBUMIN HUMAN 25% 100 ML IV ONE; +CALCIUM GLUCONATE 1 GM IVPB 2 GM/100 ML BAG IV ONE; +CEFTRIAXONE 1000 MG/VIAL ONE; +DIPHENHYDRAMINE 50 MG/ML VIAL ONE; +FAMOTIDINE 20 MG/2 ML VIAL IV ONE; +HYDROMORPHONE HCL 0.5 MG/0.5 ML INJ ONE; +HYDROMORPHONE HCL 1 MG/ML INJ ONE; +KCL 20 MEQ/100 mL IVPB 100 ML IV ONE; +METOCLOPRAMIDE 10 MG/2mL INJ ONE; +METRONIDAZOLE 500mg IVPB 500 MG/100 ML BAG IV ONE; +NA CHLORIDE 0.9% 1,000 ML ONE; +NACHLORIDE 0.45% 1,000 ML IV ONE; +NS KCL 20MEQ 1,000 ML IV ONE; -POTASSIUM 25 MEQ EFFERV TAB ONE
[2023-12-05 22:44] LABS: Absolute Lymphocytes (CBC) 0.3 K/uL (0.7-4.9); Hematocrit 22.7 % (39.6-49.0); Lymphocytes % 6.1 % (15.3-44.8); MCV 86.4 fL (80-100); MPV 7.1 fL (7.6-11.3); Platelets 310 thou/uL (152-406); RBC Red Blood Cell Count 2.62 M/uL (4.33-5.43)
[2023-12-05 22:47] LABS: Urine Bacteria <20 /HPF (<20); Urine Bilirubin NEGATIVE (Negative); Urine Blood Trace (Negative); Urine Clarity Extremely Turbid (Clear); Urine Color Light-Yellow (Yellow); Urine Crystals Unidentified Few /HPF (None Seen); Urine Glucose NEGATIVE (Negative); Urine Mucus Slight /HPF (None Seen); Urine Protein 1+ (Negative); Urine Urobilinogen Normal (Normal); Urine WBC Clump Occasional /HPF (None Seen)
[2023-12-05 23:20] LABS: AST/SGOT 25 U/L (15-37); Albumin 1.4 g/dL (3.4-5.0); Alkaline Phosphatase 131 U/L (45-117); BUN Blood Urea Nitrogen 19 mg/dL (7-18); Bicarbonate 28 mEq/L (21-32); Bilirubin Total 0.5 mg/dL (0.2-1.0); Glomerular Filtration Rate 61 ml/min (=/>90); Glucose Level 112 mg/dL (74-106); Lipase 29 U/L (13-75); Potassium 2.8 mEq/L (3.5-5.1); Sodium Level 136 mEq/L (136-145)
[2023-12-05 23:22] LABS: ALT/SGPT < 10 U/L (16-61)
[2023-12-05 23:35] LABS: Blood Morphology Comment NOT SEEN (NOT SEEN); Platelet Estimate ADEQ
--- NOTE | 2023-12-06 01:43 | EDPHYS ---
Physician Documentation [facility] Name: Edwin Young Age: 58 yrs Sex: Male : 1965 Arrival Date: 12/05/2023 Time: 21:17 Bed 18 Private MD: ED Physician Erik Boucher HPI: 12/05 23:31 This 58 yrs old Black Male presents to ER via EMS with complaints of rectal pain and sp4 leakage . 23:31 58 year old male presents with EMS with complaint of lower abdominal pain, rectal pain, sp4 and rectal leakage starting 2 days ago. . 23:34 PSH 10/26/2021 - Preoperative Diagnosis: Abdominal infection/abdominal abscess. sp4 Postoperative Diagnosis: Abdominal infection/abdominal abscess. Procedures Performed: 1. Exploratory laparotomy. 2. Partial sigmoid colectomy. 3. Creation of end sigmoid colostomy. 4. Abdominal washout. 5. Drainage of abdominal and pelvic abscesses. 6. Replacement of 10 mm IZZY drain. . Patient has history of rectal cancer, previous abdominal abscess, previous sigmoid perforation, history of partial sigmoid colectomy, sigmoid colostomy, and metastatic liver disease. Patient states 2 days ago he developed leakage from his rectum without bleeding, also lower abdominal and rectal pain.. 23:40 PMH -systolic heart failure, hypertension, hyperlipidemia, rectal cancer, gout, chronic sp4 kidney disease stage III, Chemo-Port placement,. 23:42 Medications at home include carvedilol 3.125 mg p.o. twice daily, Ensure, [place] 10 sp4 every 6 hours as needed, magnesium chloride, polyethylene glycol, sennosides . . Historical: - Allergies: 21:21 No Known Allergies; jj7 - PMHx: 21:21 CHEMO; CHF; colon cancer; Gout; Hypertension; jj7 - PSHx: 21:21 KASH Nephrostomy; Colostomy; jj7 - Immunization history:: Adult Immunizations up to date, Client reports receiving the 2nd dose of the Covid vaccine, Last tetanus immunization: Flu vaccine is up to date. - Social history:: Smoking status: Patient denies any tobacco usage or history of. Patient/guardian denies using alcohol, street drugs. - Family history:: not pertinent. ROS: 23:34 Constitutional: Negative for fever, chills, and weight loss, positive for lower sp4 abdominal and rectal pain and positive for rectal anal leakage 23:34 All other systems are negative, Exam: 23:34 Constitutional: This is a well developed, well nourished patient who is awake, alert, sp4 chronically ill-appearing male 23:42 Constitutional: Physically debilitated male, diffuse cachexia, double abdominal sp4 colostomy, bilateral nephrostomy, physical deconditioning, diffuse muscle atrophy from immobility. Head/Face: Normocephalic, atraumatic. Eyes: Pupils equal round and reactive to light, extra-ocular motions intact. Lids and lashes normal. Conjunctiva and sclera are not injected. Cornea within normal limits. Periorbital areas with no swelling, redness, or edema. ENT: Nares patent. No nasal discharge, no septal abnormalities noted. Tympanic membranes are normal and external auditory canals are clear. Oropharynx with no redness, swelling, or masses, exudates, or evidence of obstruction, uvula midline. Mucous membranes moist. Neck: Trachea midline, no thyromegaly or masses palpated, and no cervical lymphadenopathy. Supple, full range of motion without nuchal rigidity, or vertebral point tenderness. Chest/axilla: Normal chest wall appearance and motion. Nontender with no deformity. No lesions are appreciated. Cardiovascular: Regular rate and rhythm with a normal S1 and S2. No gallops, murmurs, or rubs. Normal PMI, no JVD. No pulse deficits. Respiratory: Lungs have equal breath sounds bilaterally, clear to auscultation and percussion. No rales, rhonchi or wheezes noted. No increased work of breathing, no retractions or nasal flaring. Abdomen/GI: Soft, positive diffuse abdominal discomfort, bilateral colostomy pouches, rectal exam reveals no discharge, no bleeding, no sign of fissures or fistulas. Bilateral nephrostomies are present Back: No spinal tenderness. No costovertebral tenderness. Male : Normal genitalia with no discharge or lesions. Skin: Warm, dry with normal turgor. Normal color with no rashes, no lesions, and no evidence of cellulitis. MS/ Extremity: Pulses equal, no cyanosis. Neurovascular intact. Full, normal range of motion. Diffuse muscular atrophy Neuro: Awake and alert, GCS 15, oriented to person, place, time, and situation. Cranial nerves II-XII grossly intact. Motor strength 5/5 in all extremities. Sensory grossly intact. Vital Signs: 21:21 BP 136 / 96; Pulse 123; Resp 17; Temp 98.3; Pulse Ox 97% ; Weight 69.4 kg; Height 5 ft. 7 11 in. ; Pain 8/10; 22:30 BP 139 / 101; Pulse 119; Resp 17; Pulse Ox 97% ; Pain 3/10; 7 23:00 BP 139 / 100; Pulse 110; Resp 17; Pulse Ox 98% ; [facility] 12/06 00:00 BP 145 / 104; Pulse 117; Resp 16; Pulse Ox 100% ; [facility] 01:00 BP 125 / 89; Pulse 108; Resp 16; Pulse Ox 97% ; [facility] 01:39 BP 125 / 89; Pulse 115; Pulse Ox 100% ; 1 02:00 BP 156 / 99; Pulse 120; Resp 15; Temp 98; Pulse Ox 99% ; 7 03:00 BP 146 / 101; Pulse 120; Resp 18; Pulse Ox 100% on R/A; [facility] 04:00 BP 154 / 104; Pulse 121; Resp 18; Pulse Ox 100% on R/A; 8 05:00 BP 148 / 100; Pulse 119; Resp 18; Pulse Ox 100% on R/A; 8 06:00 BP 130 / 103; Pulse 115; Resp 18; Pulse Ox 99% on R/A; [facility] 12/05 21:21 Body Mass Index 21.34 (69.40 kg, 180.34 cm) [facility] 12/05 21:21 Pain Scale: Adult 7 22:30 Pain Scale: Adult 7 MDM: 12/05 21:29 Patient medically screened. sp4 23:32 ED course: CT report from recent record - EXAM DESCRIPTION: CT - Abdomen Pelvis Wo sp4 Contrast - 12/03/2023 6:42 am CLINICAL HISTORY: 58 years Male RECTAL DRAINAGE COMPARISON: None TECHNIQUE: Images were obtained in axial, sagittal, and coronal planes. No intravenous or oral contrast was administered. This exam was performed according to our departmental dose-optimization program which includes use of Automated Exposure Control, adjustment of the mA and/or kV according to patient size and/or use of iterative reconstruction technique. FINDINGS: Multiple low-attenuation lesions are seen involving the liver consistent with metastatic disease. Unremarkable spleen, pancreas, gallbladder and adrenal glands bilaterally. Bilateral percutaneous nephrostomy tubes. No definite hydronephrosis bilaterally. Inferior vena cava filter. No obstructing renal or ureteral calculi identified. Air is seen within the bladder. Marked mucosal thickening involving the bladder. Appendix within normal limits. No bowel obstruction or perforation. Moderate constipation. Ostomy site left pelvis. No acute osseous abnormality. Moderate multilevel osteoarthritic change. IMPRESSION: Low-attenuation lesions involving the liver consistent with metastatic disease. Bilateral percutaneous nephrostomy tubes. No definite hydronephrosis bilaterally. Marked mucosal thickening involving the bladder. The findings could be consistent with cystitis however neoplasm not excluded. Air within the bladder possibly related to instrumentation. Electronically signed by: Ansley Marie MD 12/03/2023 12:02 AM. 12/06 01:24 ED course: CLINICAL HISTORY: The patient is 58 years old and is Male; ABD PAIN sp4 TECHNIQUE: Axial computed tomography images of the abdomen and pelvis with intravenous contrast. Sagittal and coronal reformatted images were created and reviewed. This CT exam was performed using one or more of the following dose reduction techniques: automated exposure control, adjustment of the mA and/or kV according to patient size, and/or use of iterative reconstruction technique. COMPARISON: CT of the abdomen and pelvis December 02, 2023 FINDINGS: LUNG BASES: Innumerable pulmonary nodules are redemonstrated. PLEURAL SPACE: Persistent bilateral pleural effusions are noted. ABDOMEN: LIVER: Innumerable heterogeneous masses are redemonstrated throughout the liver. GALLBLADDER AND BILE DUCTS: The gallbladder is contracted. PANCREAS: The pancreas is atrophic. SPLEEN: Unremarkable. ADRENALS: Unremarkable. No mass. KIDNEYS AND URETERS: Bilateral nephrostomy tubes are in place. Mild left hydroureteronephrosis is present. The kidneys enhance symmetrically. STOMACH AND BOWEL: The stomach is distended with oral contrast. Oral contrast is noted throughout the majority of the small bowel. A left lower quadrant ileostomy and right lower quadrant colostomy is noted. Postsurgical change of the colon is noted. Suggestion of a large heterogeneous mass at the level of the rectosigmoid colon is noted. This appears to connect to the bladder. PELVIS: APPENDIX: No findings to suggest acute appendicitis. BLADDER: The bladder demonstrates significant bladder wall thickening with surrounding inflammation. Fluid, air, and debris within the bladder is noted. Suggestion of fistulous connection to the thick-walled inflamed rectum is noted. REPRODUCTIVE: Unremarkable as visualized. ABDOMEN and PELVIS: INTRAPERITONEAL SPACE: Unremarkable. No free air. No significant fluid collection. BONES/JOINTS: Multilevel degenerative changes spine is present. SOFT TISSUES: Diffuse body wall edema is noted. VASCULATURE: Infrarenal IVC filter is in place. No abdominal aortic aneurysm. LYMPH NODES: Multiple enlarged bulky heterogeneous central mesenteric and retroperitoneal lymph nodes are present. IMPRESSION: 1. Diffuse bladder wall thickening with surrounding inflammatory stranding with associated stool and air are noted within the bladder. Suggestion of a fistulous formation with the rectum is noted. 2. Heterogeneous mass in the region of the rectosigmoid colon. 3. Redemonstrated are multiple heterogeneous metastatic lesions within the liver. 4. Heterogeneous metastatic adenopathy within the central abdomen and retroperitoneum. 5. Bilateral nephrostomy tubes in place with mild left hydroureteronephrosis. Abdomen Pelvis W Contrast 6. Bilateral pleural effusions. Electronically signed by: Anne Wick MD 12/06/2023 01:09 AM. 01:38 Differential Diagnosis altered mental status, sepsis, flu. Data reviewed: vital signs, sp4 nurses notes, EMS record, old medical records, lab test result(s), radiologic studies, CT scan. Consideration of Admission/Observation Escalation of care including admission/observation considered. ED course: CT revealed diffuse bladder wall thickening including stool and air in the urinary bladder suggesting fistulous formation within the rectum and bladder. Also patient has heterogenous mass in the region of rectosigmoid colon. Redemonstration of multiple metastatic lesions in the liver, heterogenous metastatic adenopathy within central abdomen and retroperitoneum. Bilateral nephrostomy tubes with mild left hydronephrosis. Bilateral pleural effusions.. ED course: Patient was discussed with general surgeon who feels that this would require higher level of care and consultation with urologist. . 02:51 ED course: Patient was discussed with urologist Dr. Nunez who agreed to be a 4 consulting physician. 03:19 ED course: [facility] bed . sp4 12/05 21:29 Order name: CBC with Diff; Complete Time: 23:44 sp4 12/05 21:29 Order name: CMP; Complete Time: 23:25 sp4 12/05 21:29 Order name: Lipase; Complete Time: 23:25 sp4 02/20 21:29 Order name: Urinalysis w/ reflexes; Complete Time: 23:25 sp4 12/05 22:49 Order name: Manual Differential; Complete Time: 23:44 EDMS 12/05 22:54 Order name: Urine Culture EDMS 12/05 21:29 Order name: CT Abd/Pelvis - PO and IV Contrast sp4 12/05 21:29 Order name: IV Saline Lock; Complete Time: 22:12 sp4 12/05 21:29 Order name: Labs collected and sent; Complete Time: 22:38 sp4 Administered Medications: 12/05 22:09 Drug: metoCLOPramide IVP 10 mg IVP once; over 1 to 2 minutes Route: IVP; Site: right [address]; 22:30 Follow up: Response: Marked relief of symptoms j7 22:09 Drug: diphenhydrAMINE IVP 25 mg IVP once Route: IVP; Site: right upper arm; j 22:30 Follow up: Response: Marked relief of symptoms j7 22:10 Drug: Famotidine IVP 20 mg IVP once; dilute with 10 mL 0.9% NaCl; give over 2 minutes jj7 Route: IVP; Site: right [facility] arm; 22:30 Follow up: Response: Marked relief of symptoms jj7 22:10 Drug: Ondansetron IVP 4 mg IVP once; over 2 minutes Route: IVP; Site: right upper arm; jj 22:30 Follow up: Response: Marked relief of symptoms jj7 22:11 Drug: morphine IVP or IV 4 mg IVP once over 4 mins Route: IVP; Infused Over: 4 mins; j7 Site: right [facility] arm; 22:30 Follow up: Response: Marked relief of symptoms; Pain is decreased jj7 22:12 Drug: NS 0.9% IV 1000 ml IV at 1 bolus Per protocol; 1000 mL bolus Route: IV; Rate: 1 jj7 bolus; Site: right upper arm; 23:30 Follow up: IV Status: Completed infusion j7 22:28 Drug: Albumin IVPB 25 grams 100 ml IVPB once; (Note: Albumin 25% concentration) Volume: jj7 100 ml; Route: IVPB; Site: right upper arm; 23:05 Follow up: IV Status: Completed infusion jj7 12/06 00:49 Drug: NS IV 0.45 % 1000 ml IV at 125 ml/hr continuous Route: IV; Rate: 125 ml/hr; Site: [facility] right [facility] arm; 04:47 Follow up: IV Status: Infusion continued upon transfer 01:01 Drug: HYDROmorphone IVP 0.5 mg IVP once Route: IVP; Site: right upper arm; j7 01:30 Follow up: Response: Pain is decreased 01:22 Drug: Potassium Chloride IV 20 mEq IV at calculated rate once; administer over 1-2 [facility] hours Route: IV; Rate: calculated rate; Site: right upper arm; 03:15 Follow up: IV Status: Completed infusion 02:29 Drug: Rocephin - Rocephin (cefTRIAXone) IVPB 1 grams IVPB once over 30 mins; (mix in 50 jj7 mL NS) Route: IVPB; Infused Over: 30 mins; Site: right upper arm; 03:01 Follow up: IV Status: Completed infusion 02:29 Drug: metroNIDAZOLE IVPB 500 mg 100 ml IVPB at 200 ml/hr once over 30 mins Volume: 100 jj7 ml; Route: IVPB; Rate: 200 ml/hr; Infused Over: 30 mins; Site: right upper arm; 03:02 Follow up: IV Status: Completed infusion; IV Intake: 100ml 02:29 Drug: HYDROmorphone IVP 0.5 mg IVP once Route: IVP; Site: right upper arm; [facility] 03:02 Follow up: Response: No adverse reaction; Pain is decreased 03:04 Drug: Albumin IVPB 25 grams 100 ml IVPB once; (Note: Albumin 25% concentration) Volume: [facility] 100 ml; Route: IVPB; Site: right upper arm; 03:40 Follow up: IV Status: Completed infusion; IV Intake: 100ml 03:40 Drug: Potassium Chloride IV 20 mEq IV at calculated rate once; administer over 1-2 [facility] hours Route: IV; Rate: calculated rate; Site: right upper arm; 05:45 Follow up: IV Status: Completed infusion; IV Intake: 100ml 03:40 Drug: Calcium Gluconate IVPB 2 grams IVPB once over 60 mins; (mix in NS 100 mL) Route: [facility] IVPB; Infused Over: 60 mins; Site: right upper arm; 04:47 Follow up: IV Status: Completed infusion; IV Intake: 100ml 05:15 Drug: HYDROmorphone IVP 1 mg IVP once Route: IVP; Site: right upper arm; km8 05:59 Follow up: Response: No adverse reaction; Pain is decreased 05:15 Drug: Ondansetron IVP 4 mg IVP once; over 2 minutes Route: IVP; Site: right upper arm; km8 05:58 Follow up: Response: No adverse reaction 8 05:17 CANCELLED (Other Intervention Used): ondansetron4 mg PO once km8 Disposition Summary: 12/06/23 01:42 Transfer Ordered Notes: Transfer Location: [facility] sp4 Reason: Higher level of care sp4 Condition: Stable sp4 Problem: new sp4 Symptoms: have improved sp4 Accepting Physician: 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 Forms: - Medication Reconciliation Form sp4 - SBAR form sp4 Signatures: Dispatcher [employer] EDSweta Rust RN RN jessicajCatalina Whitlock RN RN beau1 Erik Boucher MD MD sp4 Joan Patton RN RN km8 Corrections: (The following items were deleted from the chart) 05:17 05:05 Ondansetron PO 4 mg PO once ordered. sp4 km8 05:17 05:15 Ondansetron PO 4 mg PO once given. km8 8 05:17 05:15 Ondansetron PO 4 mg PO once ordered. km8 06:29 01:42 [facility] attending sp4 km8
--- NOTE | 2023-12-06 01:43 | ER ---
Nurse's Notes 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 Presentation: 12/05 21:21 Chief complaint: EMS states: PER EMS PT HAS BEEN HAVING RECTAL DISCHARGE FOR 5 DAYS. jj7 Coronavirus screen: At this time, the client does not indicate any symptoms associated with coronavirus-19. Ebola Screen: No symptoms or risks identified at this time. Initial Sepsis Screen: Does the patient meet any 2 criteria? HR > 90 bpm. Yes Does the patient have a suspected source of infection? No. Patient's initial sepsis screen is negative. Risk Assessment: Do you want to hurt yourself or someone else? Patient reports no desire to harm self or others. Onset of symptoms was November 30, 2023. 21:21 Method Of Arrival: EMS: [facility] jj7 21:21 Acuity: JASWINDER 3 jj7 Triage Assessment: 21:21 General: Appears in no apparent distress. uncomfortable, slender, malnourished, jj7 Behavior is calm, cooperative, appropriate for age. Pain: Complains of pain in RECTUM. GI: Reports DISCHARGE FROM RECTUM AND PAIN. Historical: - Allergies: 21:21 No Known Allergies; jj7 - PMHx: 21:21 CHEMO; CHF; colon cancer; Gout; Hypertension; jj7 - PSHx: 21:21 KASH Nephrostomy; Colostomy; jj7 - Immunization history:: Adult Immunizations up to date, Client reports receiving the 2nd dose of the Covid vaccine, Last tetanus immunization: Flu vaccine is up to date. - Social history:: Smoking status: Patient denies any tobacco usage or history of. Patient/guardian denies using alcohol, street drugs. - Family history:: not pertinent. Screenin:21 Abuse screen: Denies threats or abuse. Nutritional screening: No deficits noted. jj7 Tuberculosis screening: No symptoms or risk factors identified. Assessment: 21:21 Reassessment: SEE TRIAGE ASSESSMENT. jj7 22:09 Reassessment: PT GIVEN PO CONTRAST TO DRINK. PT RESTING. ENCOURAGED TO DRINK CONTRAST. jj7 PT STATES HE WILL. 12/06 03:00 Reassessment: Patient appears in no apparent distress at this time. No changes from km8 previously documented assessment. Patient and/or family updated on plan of care and expected duration. Pain level reassessed. Patient is alert, oriented x 3, equal unlabored respirations, skin warm/dry/pink. 04:00 Reassessment: Patient appears in no apparent distress at this time. No changes from km8 previously documented assessment. Patient and/or family updated on plan of care and expected duration. Pain level reassessed. Patient is alert, oriented x 3, equal unlabored respirations, skin warm/dry/pink. 04:57 Reassessment: ramone Gilbert RN at [facility] the pt will be re-routed due to km8 "screening being positive"; charge nurse notified. 05:00 Reassessment: Patient appears in no apparent distress at this time. No changes from km8 previously documented assessment. Patient and/or family updated on plan of care and expected duration. Pain level reassessed. Patient is alert, oriented x 3, equal unlabored respirations, skin warm/dry/pink. 05:26 Reassessment: report given to TJ Burciaga at [facility]. [facility] 06:16 Reassessment: Patient appears in no apparent distress at this time. No changes from km8 previously documented assessment. Patient and/or family updated on plan of care and expected duration. Pain level reassessed. Patient is alert, oriented x 3, equal unlabored respirations, skin warm/dry/pink. Vital Signs: 12/05 21:21 BP 136 / 96; Pulse 123; Resp 17; Temp 98.3; Pulse Ox 97% ; Weight 69.4 kg; Height 5 ft. jj7 11 in. ; Pain 8/10; 22:30 BP 139 / 101; Pulse 119; Resp 17; Pulse Ox 97% ; Pain 3/10; jj7 23:00 BP 139 / 100; Pulse 110; Resp 17; Pulse Ox 98% ; jj7 12/06 00:00 BP 145 / 104; Pulse 117; Resp 16; Pulse Ox 100% ; jj7 01:00 BP 125 / 89; Pulse 108; Resp 16; Pulse Ox 97% ; jj7 01:39 BP 125 / 89; Pulse 115; Pulse Ox 100% ; rv1 02:00 BP 156 / 99; Pulse 120; Resp 15; Temp 98; Pulse Ox 99% ; jj7 03:00 BP 146 / 101; Pulse 120; Resp 18; Pulse Ox 100% on R/A; km8 04:00 BP 154 / 104; Pulse 121; Resp 18; Pulse Ox 100% on R/A; km8 05:00 BP 148 / 100; Pulse 119; Resp 18; Pulse Ox 100% on R/A; km8 06:00 BP 130 / 103; Pulse 115; Resp 18; Pulse Ox 99% on R/A; km8 12/05 21:21 Body Mass Index 21.34 (69.40 kg, 180.34 cm) j7 12/05 21:21 Pain Scale: Adult jj7 22:30 Pain Scale: Adult jj7 ED Course: 12/05 21:21 Patient arrived in ED. rv1 21:21 Accessed MIDLINE INSERTED HERB DOCTOR using Clean \\T\\ dry. Dressing intact. Good blood return. jj7 Flushes easily. 21:21 Arm band placed on right wrist. Patient placed in an exam room, on a stretcher. jj7 21:21 Patient has correct armband on for positive identification. Placed in gown. Bed in low jj7 position. Call light in reach. Side rails up X2. Warm blanket given. Pillow given. 21:28 Erik Boucher MD is Attending Physician. sp4 21:51 Sweta Albert RN is Primary Nurse. jj7 22:38 CBC with Diff Sent. jj7 22:38 CMP Sent. jj7 22:38 Lipase Sent. jj7 22:38 Urinalysis w/ reflexes Sent. jj7 22:43 Triage completed. jj7 12/06 00:32 CT Abd/Pelvis - PO and IV Contrast In Process Unspecified. EDMS 01:33 Contacted [facility], Spoke with Dona for patient transfer for BSL. ty 06:29 No provider procedures requiring assistance completed. Patient transferred, IV remains km8 in place. 06:29 Provided Education on: transfer process. km8 Administered Medications: 12/05 22:09 Drug: metoCLOPramide IVP 10 mg IVP once; over 1 to 2 minutes Route: IVP; Site: right [address] arm; 22:30 Follow up: Response: Marked relief of symptoms jj7 22:09 Drug: diphenhydrAMINE IVP 25 mg IVP once Route: IVP; Site: right upper arm; j7 22:30 Follow up: Response: Marked relief of symptoms jj7 22:10 Drug: Famotidine IVP 20 mg IVP once; dilute with 10 mL 0.9% NaCl; give over 2 minutes jj7 Route: IVP; Site: right upper arm; 22:30 Follow up: Response: Marked relief of symptoms jj7 22:10 Drug: Ondansetron IVP 4 mg IVP once; over 2 minutes Route: IVP; Site: right upper arm; jj7 22:30 Follow up: Response: Marked relief of symptoms jj7 22:11 Drug: morphine IVP or IV 4 mg IVP once over 4 mins Route: IVP; Infused Over: 4 mins; [facility] Site: right upper arm; 22:30 Follow up: Response: Marked relief of symptoms; Pain is decreased j7 22:12 Drug: NS 0.9% IV 1000 ml IV at 1 bolus Per protocol; 1000 mL bolus Route: IV; Rate: 1 jj7 bolus; Site: right [facility] arm; 23:30 Follow up: IV Status: Completed infusion jj7 22:28 Drug: Albumin IVPB 25 grams 100 ml IVPB once; (Note: Albumin 25% concentration) Volume: j7 100 ml; Route: IVPB; Site: right [facility] arm; 23:05 Follow up: IV Status: Completed infusion jj7 12/06 00:49 Drug: NS IV 0.45 % 1000 ml IV at 125 ml/hr continuous Route: IV; Rate: 125 ml/hr; Site: [facility] right [facility] arm; 04:47 Follow up: IV Status: Infusion continued upon transfer km8 01:01 Drug: HYDROmorphone IVP 0.5 mg IVP once Route: IVP; Site: right upper arm; [facility] 01:30 Follow up: Response: Pain is decreased j7 01:22 Drug: Potassium Chloride IV 20 mEq IV at calculated rate once; administer over 1-2 j hours Route: IV; Rate: calculated rate; Site: right upper arm; 03:15 Follow up: IV Status: Completed infusion 02:29 Drug: Rocephin - Rocephin (cefTRIAXone) IVPB 1 grams IVPB once over 30 mins; (mix in 50 jj7 mL NS) Route: IVPB; Infused Over: 30 mins; Site: right upper arm; 03:01 Follow up: IV Status: Completed infusion 02:29 Drug: metroNIDAZOLE IVPB 500 mg 100 ml IVPB at 200 ml/hr once over 30 mins Volume: 100 jj7 ml; Route: IVPB; Rate: 200 ml/hr; Infused Over: 30 mins; Site: right upper arm; 03:02 Follow up: IV Status: Completed infusion; IV Intake: 100ml 02:29 Drug: HYDROmorphone IVP 0.5 mg IVP once Route: IVP; Site: right upper arm; j 03:02 Follow up: Response: No adverse reaction; Pain is decreased 03:04 Drug: Albumin IVPB 25 grams 100 ml IVPB once; (Note: Albumin 25% concentration) Volume: km8 100 ml; Route: IVPB; Site: right upper arm; 03:40 Follow up: IV Status: Completed infusion; IV Intake: 100ml 03:40 Drug: Potassium Chloride IV 20 mEq IV at calculated rate once; administer over 1-2 km8 hours Route: IV; Rate: calculated rate; Site: right upper arm; 05:45 Follow up: IV Status: Completed infusion; IV Intake: 100ml 03:40 Drug: Calcium Gluconate IVPB 2 grams IVPB once over 60 mins; (mix in NS 100 mL) Route: 8 IVPB; Infused Over: 60 mins; Site: right upper arm; 04:47 Follow up: IV Status: Completed infusion; IV Intake: 100ml 05:15 Drug: HYDROmorphone IVP 1 mg IVP once Route: IVP; Site: right upper arm; [facility] 05:59 Follow up: Response: No adverse reaction; Pain is decreased 05:15 Drug: Ondansetron IVP 4 mg IVP once; over 2 minutes Route: IVP; Site: right upper arm; [facility] 05:58 Follow up: Response: No adverse reaction [facility] 05:17 CANCELLED (Other Intervention Used): ondansetron4 mg PO once 8 Medication: 12/05 21:21 VIS not applicable for this client. jj7 Intake: 12/06 03:02 IV: 100ml; Total: 100ml. km8 03:40 IV: 100ml; Total: 200ml. 8 04:47 IV: 100ml; Total: 300ml. km8 05:45 IV: 100ml; Total: 400ml. 8 Outcome: 01:42 ER care complete, transfer ordered by . carlito 06:29 Transferred by ground EMS to [facility], Transfer form completed. km8 06:29 Condition: stable 06:29 Instructed on the need for transfer, Demonstrated understanding of instructions, 06:29 Patient left the ED. Signatures: Dispatcher [employer] EDSweta Rust, RN RN jj7 Sherron Em rv1 Erik Boucher MD MD sp4 Joan Patton RN RN km8 Eusebio Chowdhury Corrections: (The following items were deleted from the chart) 01:03 12/05 22:30 BP 139 / 100; Pulse 119bpm; Resp 17bpm; Pulse Ox 97%; Pain 3/10, Adult; jj7 j7 12/06 01:46 12/05 21:21 BP 136 / 96; Pulse 123bpm; Resp 17bpm; Pulse Ox 97%; Temp 98.3F; Pain 8/10, jj7 Adult; j7 12/06 04:52 04:47 IV Status: Completed infusion 05:15 05:15 Ondansetron PO 4 mg PO km8 km8
[2023-12-06 06:48] VITALS: TEMP 98
[2023-12-06 07:06] VITALS: BP 130/103; O2SAT 99
--- NOTE | 2023-12-06 13:19 | RAD REPORT ---
EXAM DESCRIPTION: CT - Abdomen Pelvis W Contrast - 12/06/2023 6:51 am CLINICAL HISTORY: The patient is 58 years old and is Male; ABD PAIN TECHNIQUE: Axial computed tomography images of the abdomen and pelvis with intravenous contrast. S agittal and coronal reformatted images were created and reviewed. This CT exam was performed using one or more of the following dose reduction techniques: automated exposure control, adjustment of t he mA and/or kV according to patient size, and/or use of iterative reconstruction technique. COMPARISON: CT of the abdomen and pelvis December 02, 2023 FINDINGS: LUNG BASES: Innumerable pulmonary nodules are redemonstrated. PLEURAL SPACE: Persistent bilateral pleural effusions are noted. ABDOMEN: LIVER: Innumerable heterogeneous masses are redemonstrated throughout the liver. GALLBLADDER AND BILE DUCTS: The gallbladder is contracted. PANCREAS: The pancreas is atrophic. SPLEEN: Unremarkable. ADRENALS: Unremarkable. No mass. KIDNEYS AND URETERS: Bilateral nephrostomy tubes are in place. Mild left hydroureteronephrosis is present. The kidneys enhance symmetrically. STOMACH AND BOWEL: The stomach is distended with oral contrast. Oral contrast is noted throughout the majority of the small bowel. A left lower quadrant ileostomy and right lower quadrant colostomy is noted. Postsurgical change of the colon is noted. Suggestion of a large heterogeneous mass at the level of the rectosigmoid colon is noted. This appears to connect to the bladder. PELVIS: APPENDIX: No findings to suggest acute appendicitis. BLADDER: The bladder demonstrates significant bladder wall thickening with surrounding inflammati on. Fluid, air, and debris within the bladder is noted. Suggestion of fistulous connection to the thi ck-walled inflamed rectum is noted. REPRODUCTIVE: Unremarkable as visualized. ABDOMEN and PELVIS: INTRAPERITONEAL SPACE: Unremarkable. No free air. No significant fluid collection. BONES/JOINTS: Multilevel degenerative changes spine is present. SOFT TISSUES: Diffuse body wall edema is noted. VASCULATURE: Infrarenal IVC filter is in place. No abdominal aortic aneurysm. LYMPH NODES: Multiple enlarged bulky heterogeneous central mesenteric and retroperitoneal lymph n odes are present. IMPRESSION: 1. Diffuse bladder wall thickening with surrounding inflammatory stranding with associ ated stool and air are noted within the bladder. Suggestion of a fistulous formation with the rectum is noted. 2. Heterogeneous mass in the region of the rectosigmoid colon. 3. Redemonstrated are multiple heterogeneous metastatic lesions within the liver. 4. Heterogeneous metastatic adenopathy within the central abdomen and retroperitoneum. 5. Bilateral nephrostomy tubes in place with mild left hydroureteronephrosis. 6. Bilateral pleural effusions. Electronically signed by: Anne Wick MD 12/06/2023 01:09 AM RETAIL SPECIALIST Due to temporary technical issues with the PACS/Fluency reporting system, reports are being signed by the in house radiologist without review as a courtesy to ensure prompt reporting. The interpreting r adiologist is fully responsible for the content of the report.
== END ==
LOC: ER 21:17
DX: N32.1 Vesicointestinal fistula (principal); C78.7 Secondary malignant neoplasm of liver and intrahepatic bile duct; C77.2 Secondary and unspecified malignant neoplasm of intra-abdominal lymph nodes; N32.89 Other specified disorders of bladder; K63.89 Other specified diseases of intestine; I10 Essential (primary) hypertension; I50.9 Heart failure, unspecified; Z85.038 Personal history of other malignant neoplasm of large intestine
CPT/HCPCS: 87088; 85025; 81001; 87086; 36415; 83690; 80053; J2765; J1200; J2405; P9047; J7030; 74177; Q9967

== ENCOUNTER 2023-12-20 01:03 | Inpatient (IN) | payer OTHER ==
[2023-12-20] MEDS ORDERED: METHYLPREDNISOLONE 125 MG INJ ONE ×2 (01:38→11:43)
[2023-12-20] MEDS ORDERED: ALBUTEROL 2.5 MG/3 ML NEB SOL ONE (01:38)
[2023-12-20] MEDS ORDERED: ONDANSETRON 4 MG/2 ML VIAL ONE (01:38)
[2023-12-20] MEDS ORDERED: PIPERACIL/TAZO 3.375 GM VIAL IV ONE (01:39)
[2023-12-20] MEDS ORDERED: NA CHLORIDE 0.9% 100 ML ONE (01:39)
[2023-12-20] MEDS ORDERED: HYDROMORPHONE HCL 1 MG/ML INJ ONE ×3 (01:39→11:43)
[2023-12-20] MEDS ORDERED: DIPHENHYDRAMINE 50 MG/ML VIAL ONE ×2 (01:39→03:06)
[2023-12-20] MEDS ORDERED: NA CHLORIDE 0.9% 1,000 ML ONE ×2 (01:39→11:44)
[2023-12-20 01:46] LABS: Absolute Lymphocytes (CBC) 0.4 K/uL (0.7-4.9); Basophils % 0.1 % (0-1.3); Hemoglobin 6.4 g/dL (13.6-17.9); Lymphocytes % 6.7 % (15.3-44.8); MCV 90.1 fL (80-100); Platelets 280 thou/uL (152-406); RBC Red Blood Cell Count 2.11 M/uL (4.33-5.43)
[2023-12-20 02:10] LABS: Protime INR 1.39
[2023-12-20 02:38] LABS: Albumin 1.7 g/dL (3.4-5.0); Albumin/Globulin Ratio 0.4 (1.1-1.8); Anion Gap 10.6 mEq/L (5.0-15.0); Bilirubin Direct 0.2 mg/dL (0-0.2); Bilirubin Indirect, Calculated 0.2 mg/dL (0.2-0.8); Bilirubin Total 0.4 mg/dL (0.2-1.0); Globulin 4.6 g/dL (2.3-3.5); Magnesium 1.8 mg/dL (1.6-2.4); Potassium 4.6 mEq/L (3.5-5.1); Protein, Total 6.3 g/dL (6.4-8.2); Troponin High Sensitivity 37.9 pg/mL (<58.9)
[2023-12-20 02:41] LABS: Arterial Blood Carboxyhemoglob 1.1 % (0-1.5); Blood Gas Oxyhemoglobin 95.3 % (94-97); Blood Gas THB 6.3 g/dl (12-18); Blood O2 Saturation 98.3 % (92-98.5)
--- NOTE | 2023-12-20 04:28 | EDPHYS ---
Physician Documentation [facility] Name: Edwin Young Age: 58 yrs Sex: Male : 1965 Arrival Date: 12/20/2023 Time: 01:03 Bed 14 Private MD: ED Physician Erik Boucher HPI: 12/19 01:13 This 58 yrs old Black Male presents to ER via Unassigned with complaints of Dyspnea and sp4 abdominal pain . 01:14 PMH PSH 10/26/2021 - History of Abdominal infection/abdominal abscess. History of 1. sp4 Exploratory laparotomy. 2. Partial sigmoid colectomy. 3. Creation of end sigmoid colostomy. 4. Abdominal washout. 5. Drainage of abdominal and pelvic abscesses. 6. Replacement of 10 mm IZZY drain. . Patient has history of rectal cancer, previous abdominal abscess, previous sigmoid perforation, history of partial sigmoid colectomy, sigmoid colostomy, and metastatic liver disease. Patient states he has developed dyspnea in the last 24 hours. PMH -systolic heart failure, hypertension, hyperlipidemia, rectal cancer, gout, chronic kidney disease stage III, Chemo-Port placement, Medications at home include carvedilol 3.125 mg p.o. twice daily, Ensure, as needed, magnesium chloride, polyethylene glycol, sennosides . .. 04:13 Patient arrives from [facility]. Patient is full sp4 code. Patient takes atorvastatin calcium 20 mg bedtime, furosemide 20 mg once a day, hydromorphone 4 mg tablet every 3 hours as needed pain, tamsulosin 0.4 mg bedtime, acetaminophen 325 2 tablets every 4 hours as needed, primary physician is Dr. Oh. 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 Stage IV rectal cancer with lung and liver metastatic disease.. Historical: - Allergies: 01:17 No Known Allergies; rv - PMHx: 01:17 CHEMO; CHF; colon cancer; Gout; Hypertension; rv - PSHx: 01:17 KASH Nephrostomy; Colostomy; rv - Immunization history:: Adult Immunizations up to date. - Social history:: Smoking status: Patient/guardian denies using tobacco. - Family history:: not pertinent. ROS: 04:13 Constitutional: Negative for fever, chills, and weight loss, positive generalized sp4 weakness and shortness of breath. Positive acute on chronic cancer pain 04:13 All other systems are negative, Exam: 04:13 Constitutional: This is a cachectic male, with severe physical debility, signs of sp4 prolonged immobility, patient has ileostomy and colostomy, bilateral percutaneous nephrostomy, generalized weakness as well. Able to answer questions, pale appearing Head/Face: Normocephalic, atraumatic. Eyes: Pupils equal round and reactive to light, extra-ocular motions intact. Lids and lashes normal. Conjunctiva and sclera are not injected. Cornea within normal limits. Periorbital areas with no swelling, redness, or edema. ENT: Nares patent. No nasal discharge, no septal abnormalities noted. Tympanic membranes are normal and external auditory canals are clear. Oropharynx with no redness, swelling, or masses, exudates, or evidence of obstruction, uvula midline. Mucous membranes moist. Neck: Trachea midline, no thyromegaly or masses palpated, and no cervical lymphadenopathy. Supple, full range of motion without nuchal rigidity, or vertebral point tenderness. Chest/axilla: Normal chest wall appearance and motion . Nontender with no deformity. No lesions are appreciated. There is a right upper chest wall vascular port. Cardiovascular: Regular rate and rhythm with a normal S1 and S2. No gallops, murmurs, or rubs. Normal PMI, no JVD. No pulse deficits. Respiratory: Lungs have equal breath sounds bilaterally, clear to auscultation and percussion. No rales, rhonchi or wheezes noted. No increased work of breathing, no retractions or nasal flaring. Abdomen/GI: Soft, with normal bowel sounds. No distension or tympany. No guarding or rebound. No evidence of tenderness throughout. There is ileostomy and nephrostomy present on exam. Bilateral percutaneous nephrostomies present Back: No spinal tenderness. No costovertebral tenderness. Male : Normal genitalia with no discharge or lesions. Skin: Warm, dry with normal turgor. and no evidence of cellulitis. Positive generalized pallor without significant rashes. MS/ Extremity: Pulses equal, no cyanosis. Neurovascular intact. Full, normal range of motion. Neuro: Awake and alert, GCS 15, oriented to person, place, time, and situation. Cranial nerves II-XII grossly intact. Motor strength 5/5 in all extremities. Sensory grossly intact. Vital Signs: 01:00 BP 102 / 86; Pulse 110; Resp 22; as9 01:05 BP 102 / 86; Pulse 110; Resp 22; rv 01:30 BP 104 / 87; Pulse 112; Resp 21; as9 02:00 BP 100 / 83; Pulse 108; Resp 21; as9 02:30 BP 105 / 90; Pulse 109; Resp 21; as9 03:15 BP 106 / 91; Pulse 105; Resp 21; Temp 97.9(A); as9 04:00 BP 111 / 80; Pulse 108; Resp 20; Pulse Ox 100% on 2 lpm NC; as9 05:00 BP 101 / 83; Pulse 108; Resp 20; Pulse Ox 100% on 2 lpm NC; as9 MDM: 01:13 Patient medically screened. sp4 04:13 ED course: CLINICAL HISTORY: dyspnea, abdominal pain COMPARISON: 12/06/2023. TECHNIQUE: sp4 CT CHESTABDOMEN PELVIS WITHOUT IV CONTRAST on 12/20/2023 1:13 AM FINANCE CONTROLLER This exam was performed according to our departmental dose-optimization program, which includes automated exposure control, adjustment of the mA and/or kV according to patient size and/or use of iterative reconstruction technique. FINDINGS: Chest: The heart is enlarged. There is no pericardial effusion. Intrathoracic lymph nodes are not enlarged. Right chest port is in place. There appear to be bilateral nephrostomy catheters. There are moderate bilateral pleural effusions. Central airways are patent. There are innumerable, more than 50 bilateral pulmonary nodules scattered throughout all lobes measuring up to 1.3 cm. There is bibasilar airspace disease. Abdomen: Liver is heterogeneous containing multiple masses measuring up to 6.3 cm. IVC filter is in place. There is no biliary dilatation. Gallbladder is not well seen. The pancreas and spleen are normal in appearance. Adrenal glands are poorly seen. There may be mild fullness of both renal collecting systems although the kidneys are poorly assessed. Abdominal aorta is normal in course and caliber without aneurysm. There is no free air. There is no retroperitoneal adenopathy. Pelvis: There is contrast throughout the colon. Urinary bladder is unremarkable. There is no free fluid. Appendix is normal. Skeleton: There are no acute osseous findings. No suspicious bony lesions. IMPRESSION: Re demonstration of extensive metastatic disease to the lungs and liver. . 04:13 Differential Diagnosis altered mental status, sepsis, flu, bowel obstruction . Data sp4 reviewed: vital signs, nurses notes, EMS record, old medical records, lab test result(s), cardiac enzymes, electrolytes, hepatic panel, urinalysis. Consideration of Admission/Observation Escalation of care including admission/observation considered. ED course: Patient has decreasing level of hemoglobin with hemoglobin today being 6.4. No sign of acute surgical emergency on CT abdomen pelvis. CT has revealed - Abdomen: Liver is heterogeneous containing multiple masses measuring up to 6.3 cm. IVC filter is in place. There is no biliary dilatation. Gallbladder is not well seen. The pancreas and spleen are normal in appearance. Adrenal glands are poorly seen. . 12/19 03:48 Order name: ABO/RH typing [facility] 12/19 03:48 Order name: Antibody Screen [facility] 12/19 01:12 Order name: BMP; Complete Time: 03:41 [facility] 12/19 01:12 Order name: Blood Culture Adult (2) [facility] 12/19 01:12 Order name: CBC with Diff; Complete Time: 05:38 [facility] 12/19 01:12 Order name: CPK; Complete Time: 03:41 [facility] 12/19 01:12 Order name: Hepatic Function; Complete Time: 03: [facility] 12/19 01:12 Order name: Lipase; Complete Time: 03:41 [facility] 12/19 01:12 Order name: Magnesium; Complete Time: 03:41 [facility] 12/19 01:12 Order name: NT PRO-BNP; Complete Time: 03:41 [facility] 12/19 01:12 Order name: PT-INR; Complete Time: 03:41 [facility] 12/19 01:12 Order name: Ptt, Activated; Complete Time: 03:41 4 12/19 01:12 Order name: Troponin HS; Complete Time: 03:41 [facility] 12/19 01:16 Order name: ABG; Complete Time: 03: [facility] 12/19 02:07 Order name: Manual Differential; Complete Time: 05:38 EDMS 12/19 03:46 Order name: PRBC sp4 12/19 05:35 Order name: Urinalysis w/ reflexes EDMS 12/19 01:13 Order name: CT Chest Abdomen Pelvis W/O Contrast sp4 12/19 02:45 Order name: ARTERIAL BLOOD GAS EDTN 12/19 01:12 Order name: EKG; Complete Time: 01:12 sp4 12/19 01:12 Order name: Cardiac monitoring; Complete Time: :20 sp4 12/19 01:12 Order name: EKG - Nurse/Tech; Complete Time: 01:50 sp4 12/19 01:12 Order name: IV Saline Lock; Complete Time: :20 sp4 12/19 01:12 Order name: Labs collected and sent; Complete Time: :20 sp4 12/19 01:12 Order name: O2 Per Protocol; Complete Time: :20 sp4 12/19 01:12 Order name: O2 Sat Monitoring; Complete Time: :20 sp4 Administered Medications: 01:50 Drug: MethylPrednisoLONE IVP 125 mg IVP once Route: IVP; Site: Port-a-cath; rv 03:10 Follow up: Response: No adverse reaction; Marked relief of symptoms rv 01:50 Drug: HYDROmorphone IVP 2 mg IVP once Route: IVP; Site: Port-a-cath; rv 03:10 Follow up: Response: No adverse reaction; Marked relief of symptoms; RASS: Alert and rv Calm (0) 01:50 Drug: Ondansetron IVP 4 mg IVP once; over 2 minutes Route: IVP; Site: Port-a-cath; rv 03:10 Follow up: Response: No adverse reaction; Marked relief of symptoms rv 01:51 Drug: NS 0.9% IV 1000 ml IV at 1 bolus Per protocol; 1000 mL bolus Route: IV; Rate: 1 rv bolus; Site: Port-a-cath; 03:11 Follow up: IV Status: Completed infusion; IV Intake: 1000ml rv 01:51 Drug: diphenhydrAMINE IVP 25 mg IVP once Route: IVP; Site: Port-a-cath; rv 03:11 Follow up: Response: No adverse reaction rv 02:06 Drug: Piperacillin-Tazobactam IVPB 3.375 grams IVPB once over 60 mins; (mix in NS 100 rv mL) Route: IVPB; Infused Over: 60 mins; Site: Port-a-cath; 03:10 Follow up: IV Status: Completed infusion; IV Intake: 100ml rv 02:37 Drug: Albuterol Inhalation 2.5 mg Inhalation every 20 minutes x3 Route: Inhalation; rv 02:37 Drug: Albuterol Inhalation 2.5 mg Inhalation every 20 minutes x3 Route: Inhalation; rv 02:37 Drug: Albuterol Inhalation 2.5 mg Inhalation every 20 minutes x3 Route: Inhalation; rv 03:09 Drug: diphenhydrAMINE IVP 25 mg IVP once Route: IVP; Site: Port-a-cath; rv 05:24 Follow up: Response: No adverse reaction; Marked relief of symptoms rv 04:44 Drug: Albumin IVPB 25 grams 100 ml IVPB once; (Note: Albumin 25% concentration) Volume: rv 100 ml; Route: IVPB; Site: Port-a-cath; 05:24 Follow up: IV Status: Infusion continued upon admission rv Disposition Summary: 12/20/23 04:27 Hospitalization Ordered Notes: Hospitalization Status: Observation sp4 Provider: Timothy Jo sp4 Condition: Stable sp4 Problem: new sp4 Symptoms: have improved sp4 Bed/Room Type: Standard sp4 Location: Telemetry/MedSurg (observation)(12/20/23 11:52) Room Assignment: 203(12/20/23 11:52) bd Diagnosis - Anemia, unspecified sp4 - Other specified anemias sp4 - AgeDisease, for colon cancer metastatic to liver and lungs, intractable cancer sp4 pain, acute on chronic pain Forms: - Medication Reconciliation Form sp4 - SBAR form sp4 - Leadership Thank You Letter sp4 Signatures: Dispatcher [employer] Betsy Bridges James, RN RN jb4 Octavio Hull RN RN rv Erik Boucher MD MD sp4 Corrections: (The following items were deleted from the chart) 04:19 01:14 PMH [facility] 10/26/2021 - Preoperative Diagnosis: Abdominal infection/abdominal sp4 abscess. Postoperative Diagnosis: Abdominal infection/abdominal abscess. Procedures Performed: 1. Exploratory laparotomy. 2. Partial sigmoid colectomy. 3. Creation of end sigmoid colostomy. 4. Abdominal washout. 5. Drainage of abdominal and pelvic abscesses. 6. Replacement of 10 mm IZZY drain. . Patient has history of rectal cancer, previous abdominal abscess, previous sigmoid perforation, history of partial sigmoid colectomy, sigmoid colostomy, and metastatic liver disease. Patient states 2 days ago he developed leakage from his rectum without bleeding, also lower abdominal and rectal pain. PMH -systolic heart failure, hypertension, hyperlipidemia, rectal cancer, gout, chronic kidney disease stage III, Chemo-Port placement, Medications at home include carvedilol 3.125 mg p.o. twice daily, Ensure, as needed, magnesium chloride, polyethylene glycol, sennosides . .. sp4 04:25 03:46 TYPE AND SCREEN+BB.LAB.GARRICK ordered. EDMS EDMS 05:07 04:27 Telemetry/MedSurg (observation) sp4 jb4 05:07 04:27 sp4 jb4 11:52 05:07 [facility] ER HOLD jb4 bd 11:52 05:07 ERHOLD- jb4 bd
--- NOTE | 2023-12-20 04:28 | ER ---
Nurse's Notes [facility] Name: Edwin Young Age: 58 yrs Sex: Male : 1965 Arrival Date: 12/20/2023 Time: 01:03 Bed 14 Private MD: Diagnosis: Anemia, unspecified;Other specified anemias;AgeDisease, for colon cancer metastatic to liver and lungs, intractable cancer pain, acute on chronic pain Presentation: 12/19 01:05 Chief complaint: EMS states: COMPLAINING OF SOB. COMING [facility]. UNABLE TO rv GET A GOOD READING OF OXYGEN SATURATION. Coronavirus screen: At this time, the client does not indicate any symptoms associated with coronavirus-19. Ebola Screen: No symptoms or risks identified at this time. Initial Sepsis Screen: Does the patient meet any 2 criteria? No. Patient's initial sepsis screen is negative. Does the patient have a suspected source of infection? No. Patient's initial sepsis screen is negative. Risk Assessment: Do you want to hurt yourself or someone else? Patient reports no desire to harm self or others. Onset of symptoms was December 20, 2023. 01:05 Method Of Arrival: EMS: [facility] rv 01:05 Acuity: JASWINDER 3 rv Triage Assessment: : General: Appears uncomfortable, ill, Behavior is calm, cooperative. Pain: Denies pain. rv Neuro: Level of Consciousness is awake, alert, obeys commands, Oriented to person, place, time, situation. Cardiovascular: Capillary refill < 3 seconds Patient's skin is warm and dry. Respiratory: Airway is patent Respiratory effort is even, unlabored. GI: Colostomy site BILATERAL. : UROSTOMY BILATERAL. Derm: Skin is intact. Historical: - Allergies: : No Known Allergies; rv - PMHx: : CHEMO; CHF; colon cancer; Gout; Hypertension; rv - PSHx: : KASH Nephrostomy; Colostomy; rv - Immunization history:: Adult Immunizations up to date. - Social history:: Smoking status: Patient/guardian denies using tobacco. - Family history:: not pertinent. Screenin: [facility] ED Fall Risk Assessment (Adult) History of falling in the last 3 months, rv including since admission No falls in past 3 months (0 pts) Score/Fall Risk Level 0 - 2 = Low Risk Oriented to surroundings, Maintained a safe environment, Educated pt \T\ family on fall prevention, incl call for assistance when getting out of bed, Assessed \T\ reinforced patient's understanding of fall precautions. Abuse screen: Denies threats or abuse. Denies injuries from another. Nutritional screening: No deficits noted. Tuberculosis screening: No symptoms or risk factors identified. Assessment: 07:00 Reassessment: SEE [facility] FOR CONTINUED CHARTING. db Vital Signs: 01:00 BP 102 / 86; Pulse 110; Resp 22; as9 01:05 BP 102 / 86; Pulse 110; Resp 22; rv 01:30 BP 104 / 87; Pulse 112; Resp 21; as9 02:00 BP 100 / 83; Pulse 108; Resp 21; as9 02:30 BP 105 / 90; Pulse 109; Resp 21; as9 03:15 BP 106 / 91; Pulse 105; Resp 21; Temp 97.9(A); as9 04:00 BP 111 / 80; Pulse 108; Resp 20; Pulse Ox 100% on 2 lpm NC; as9 05:00 BP 101 / 83; Pulse 108; Resp 20; Pulse Ox 100% on 2 lpm NC; as9 ED Course: 01:05 Patient arrived in ED. rv 01:11 Erik Boucher MD is Attending Physician. sp4 01:17 Triage completed. rv 01:19 Arm band placed on right wrist. rv 01:20 Patient has correct armband on for positive identification. rv 01:20 No provider procedures requiring assistance completed. rv 03:11 CT Chest Abdomen Pelvis W/O Contrast In Process Unspecified. EDMS 04:25 Timothy Jo MD is Hospitalizing Provider. sp4 05:24 Patient admitted, IV remains in place. rv 10:08 Irene Pozo, TJ is Primary Nurse. db Administered Medications: 01:50 Drug: MethylPrednisoLONE IVP 125 mg IVP once Route: IVP; Site: Port-a-cath; rv 03:10 Follow up: Response: No adverse reaction; Marked relief of symptoms rv 01:50 Drug: HYDROmorphone IVP 2 mg IVP once Route: IVP; Site: Port-a-cath; rv 03:10 Follow up: Response: No adverse reaction; Marked relief of symptoms; RASS: Alert and rv Calm (0) 01:50 Drug: Ondansetron IVP 4 mg IVP once; over 2 minutes Route: IVP; Site: Port-a-cath; rv 03:10 Follow up: Response: No adverse reaction; Marked relief of symptoms rv 01:51 Drug: NS 0.9% IV 1000 ml IV at 1 bolus Per protocol; 1000 mL bolus Route: IV; Rate: 1 rv bolus; Site: Port-a-cath; 03:11 Follow up: IV Status: Completed infusion; IV Intake: 1000ml rv 01:51 Drug: diphenhydrAMINE IVP 25 mg IVP once Route: IVP; Site: Port-a-cath; rv 03:11 Follow up: Response: No adverse reaction rv 02:06 Drug: Piperacillin-Tazobactam IVPB 3.375 grams IVPB once over 60 mins; (mix in NS 100 rv mL) Route: IVPB; Infused Over: 60 mins; Site: Port-a-cath; 03:10 Follow up: IV Status: Completed infusion; IV Intake: 100ml rv 02:37 Drug: Albuterol Inhalation 2.5 mg Inhalation every 20 minutes x3 Route: Inhalation; rv 02:37 Drug: Albuterol Inhalation 2.5 mg Inhalation every 20 minutes x3 Route: Inhalation; rv 02:37 Drug: Albuterol Inhalation 2.5 mg Inhalation every 20 minutes x3 Route: Inhalation; rv 03:09 Drug: diphenhydrAMINE IVP 25 mg IVP once Route: IVP; Site: Port-a-cath; rv 05:24 Follow up: Response: No adverse reaction; Marked relief of symptoms rv 04:44 Drug: Albumin IVPB 25 grams 100 ml IVPB once; (Note: Albumin 25% concentration) Volume: rv 100 ml; Route: IVPB; Site: Port-a-cath; 05:24 Follow up: IV Status: Infusion continued upon admission rv Medication: 01:19 VIS not applicable for this client. rv Intake: 03:10 IV: 100ml; Total: 100ml. rv 03:11 IV: 1000ml; Total: 1100ml. rv Outcome: 04:27 Decision to Hospitalize by Provider. sp4 05:24 Admitted to ER Hold. Please see [facility] for further documentation. rv 05:24 Condition: good 05:24 Instructed on the need for admit, 12:58 Patient left the ED. db Signatures: Dispatcher [employer] EDMS Octavio Hull RN RN rv Irene Pozo RN RN db Erik Boucher MD MD sp4 Jose David Luis RN RN as9 Corrections: (The following items were deleted from the chart) :17 GI: No signs and/or symptoms were reported involving the gastrointestinal system. rv rv :17 : No signs and/or symptoms were reported regarding the genitourinary system. rv rv :17 : Damon in place rv rv 04:16 03:15 BP 106 / 91; Pulse 105bpm; Resp 21bpm; as9 as9
[2023-12-20] MEDS: ALBUMIN HUMAN 25% 100 ML IV ONE ×2 (04:40→11:25)
[2023-12-20 05:16] LABS: Band Neutrophils 12 % (0-1)
[2023-12-20 05:17] LABS: Anisocytosis 1+; Blood Morphology Comment NOTED (NOT SEEN); Macrocytosis SLIGHT; Platelet Estimate ADEQ
[2023-12-20] MEDS ORDERED: ONDANSETRON 4 MG/2 ML VIAL IV PRN (05:31)
--- NOTE | 2023-12-20 05:31 | P.HP ---
Certification for Inpatient Patient admitted to: Observation With expected LOS: <2 Midnights Practitioner: I am a practitioner with admitting privileges, knowledge of patient current condition, hospital course, and medical plan of care. Services: Services provided to patient in accordance with Admission requirements found in Title 42 Section 412.3 of the Code of Federal Regulations Patient History Date of Service: 12/20/23 Reason for admission: Anemia History of Present Illness: 58-year-old female patient with medical history significant for hypertension, history of colon cancer on chemotherapy presented to the ED due to worsening weakness also found to have severe anemia. Hemoglobin was 6.4. He was started on blood product transfusion and was admitted for supportive care for administration of blood products. He denied overt episode of nausea, vomiting, diarrhea, abdominal pain. Allergies No Known Allergies Allergy (Verified 05/24/23 23:26) Home Medications: carvediloL [Coreg*] 3.125 mg PO BID 6AM 6PM #60 tab 05/11/23 Ensure Enlive 237 ml PO BID #30 can 08/31/23 Magnesium Chloride [Slow-Mag*] 64 mg PO BID #60 tab 08/31/23 Polyethylene Glycol 3350 [Miralax] 17 gm PO DAILY #30 packet 08/31/23 Sennosides [Senokot] 17.2 mg PO BID #120 tab 08/31/23 Trifluridine/Tipiracil HCl [Lonsurf 20 mg-8.19 mg Tablet] 2 tab PO BID 09/14/23 Hydrocodone 10/APAP 325 [[place] 10/325] 1 tab PO Q6H PRN #30 tab 09/15/23 - Past Medical/Surgical History Diabetic: No -: Systolic CHF -: HTN -: HLD -: Rectal Cancer Dx January 2021 -: Gout -: JANET/ CKD III (Dr. Hernandez/ Dr. Miranda) -: Chemo-Port placement - Family History Mother -: Heart disease, Hypertension, Other (see notes) Notes: CHF Father -: Diabetes - Social History Alcohol use: No CD- Drugs: No Caffeine use: Yes Review of Systems General: Malaise Eyes: Unremarkable ENT: Unremarkable Respiratory: Unremarkable Cardiovascular: Unremarkable Gastrointestinal: Unremarkable Musculoskeletal: Unremarkable Integumentary: Unremarkable Neurological: Unremarkable Physical Examination - Physical Exam General: Alert HEENT: Atraumatic, Normocephalic Neck: Supple Respiratory: Normal air movement Cardiovascular: Regular rate/rhythm, Normal S1 S2 Gastrointestinal: Soft and benign Musculoskeletal: No swelling - Studies Laboratory Data (last 24 hrs) 12/20/23 12/20/23 12/20/23 01:30 01:30 01:30 WBC 5.80 Hgb 6.4 L Hct 19.0 L Plt Count 280 PT 15.1 H INR 1.39 APTT 30.0 Sodium 140 Potassium 4.6 BUN 65 H Creatinine 2.37 H Glucose 105 Magnesium 1.8 Total Bilirubin 0.4 AST 35 ALT 13 L Alkaline Phosphatase 167 H Lipase 34 Assessment and Plan - Plan Anemia: Deemed due to GI loss secondary to cancer of the colon among other issue. Blood product transfusion has been started. Will keep hemoglobin above 7.0. Follow clinical symptomatology History of colon cancer: Status post colostomy creation. Monitor closely Acute kidney injury on chronic kidney disease: Elevated creatinine of 2.590. Patient baseline creatinine is about 2.3. Will continue gentle hydration. Prophylaxis: SCDs for DVT prophylaxis due to severe anemia CODE STATUS: Full code Disposition: We will treat his severe anemia with blood product transfusion and he will be discharged back to half-way. - Advance Directives Does patient have a Living Will: No Does patient have a Durable POA for Healthcare: No
[2023-12-20] MEDS ORDERED: NA CHLORIDE 0.9% 250 ML ONE (06:42)
[2023-12-20 06:46] VITALS: BMI 23.6
[2023-12-20] MEDS: INFLUENZA VACCINE (for 6+ mo) 0.5 ML DOSE IMVAC ONE (07:21)
[2023-12-20] MEDS: PNEUMOCOCCAL VACCINE 0.5 ML IMVAC ONE (07:21)
--- NOTE | 2023-12-20 07:43 | P.PN ---
Subjective Date of Service: 12/20/23 Chief Complaint: Anemia Total assist with care, pain control with as needed analgesics presented with weakness and severe anemia, hemoglobin 6.4 plan to transfuse packed red blood cell - Physical Exam General: Alert HEENT: Atraumatic, Normocephalic Neck: Supple Respiratory: Normal air movement Cardiovascular: Regular rate/rhythm, Normal S1 S2 Gastrointestinal: Soft and benign Musculoskeletal: No swelling <Peggy Isidro - Last Filed: 12/20/23 19:15> Date of Service: 12/20/23 <Keith Walter - Last Filed: 12/22/23 15:43> Review of Systems per HPI <Peggy Isidro - Last Filed: 12/20/23 19:15> Physical Examination - Studies Laboratory Data (last 24 hrs) 12/20/23 12/20/23 12/20/23 01:30 01:30 01:30 WBC 5.80 Hgb 6.4 L Hct 19.0 L Plt Count 280 PT 15.1 H INR 1.39 APTT 30.0 Sodium 140 Potassium 4.6 BUN 65 H Creatinine 2.37 H Glucose 105 Magnesium 1.8 Total Bilirubin 0.4 AST 35 ALT 13 L Alkaline Phosphatase 167 H Lipase 34 <Peggy Isidro - Last Filed: 12/20/23 19:15> - Studies Microbiology Data (last 24 hrs): 12/20/23 08:30 Clean Catch Urine [place] Count - Final >100,000 CFU/ML. 12/20/23 08:30 Clean Catch Urine - Final Escherichia Coli Esbl <Keith Walter - Last Filed: 12/22/23 15:43> Assessment And Plan - Plan Assessment and Plan - Plan Symptomatic anemia: History of colon cancer: Status post colostomy creation. Deemed due to GI loss secondary to cancer of the colon among other issue. Blood product transfusion has been started. Will keep hemoglobin above 7.0. Trend H&H, patient received 2 units of packed red blood cells hemoglobin 9.1 Follow clinical symptomatology Acute kidney injury on chronic kidney disease: Elevated creatinine of 2.590. Patient baseline creatinine is about 2.3. Will continue gentle hydration. Nephrology consult Acute on chronic heart failure Pulmonary hypertension Elevated BNP [id number] Echo COMMENTS: 1. SEVERE ENLARGED LEFT VENTRICLE, SEVERELY REDUCED LEFT VENTRICULAR FUNCTION, EJECTION FRACTION 5-10%, SEVERE GLOBAL HYPOKINESIS 2. MODERATELY REDUCED RIGHT VENTRICULAR FUNCTION 3. SEVERE SECONDARY MITRAL REGURGITATION DUE TO POOR LEAFLETS COAPTATION 4. MODERATE TRICUSPID REGURGITATION, RIGHT VENTRICULAR SYSTOLIC PRESSURE 40-45 mmHg (MODERATE PULMONARY HYPERTENSION). 5. SEVERE ENLAGED LEFT ATRIUM 6. INFERIOR VENA CAVA NORAML, COLLAPSABLE Severe protein malnutrition Albumin 1.7 Dietitian consult Total care with transfers Prophylaxis: SCDs for DVT prophylaxis due to severe anemia CODE STATUS: Full code Disposition: We will treat his severe anemia with blood product transfusion and he will be discharged back to custodial. Discharge Plan: Custodial - Code Status/Comfort Care Code Status: Full Code Critical Care: No Time Spent Managing PTS Care (In Minutes): 35 <Peggy Isidro - Last Filed: 12/20/23 19:15> Date of Service: 12/20/23 Patient seen and examined. Patient remains very cachectic and emaciated. Patient's prognosis remains poor. Have talked to patient about CODE STATUS and hospice care. Currently remaining full code. Patient not a surgical candidate. Prognosis remains grim. <Keith Walter - Last Filed: 12/22/23 15:43>
[2023-12-20] MEDS ORDERED: MORPHINE 2 MG/ML SYR ONE (08:23)
[2023-12-20] MEDS: MORPHINE 2 MG/ML SYR IV PRN (08:28)
[2023-12-20 09:05] LABS: Specific Gravity 1.015 (1.005-1.030); Transitional Epithelial <5 /HPF (None Seen); Urine Bacteria 20-50 /HPF (<20); Urine Bilirubin NEGATIVE (Negative); Urine Blood Negative (Negative); Urine Clarity Extremely Turbid (Clear); Urine Color Light-Yellow (Yellow); Urine Glucose NEGATIVE (Negative); Urine Mucus Slight /HPF (None Seen); Urine Protein 1+ (Negative); Urine RBC <5 /HPF (None Seen); Urine Urobilinogen Normal (Normal); Urine WBC Clump Occasional /HPF (None Seen); Urine pH 5.5 (5.0-7.0)
[2023-12-20] MEDS: METOPROLOL TARTRATE 5 MG/5 ML INJ IV STA (10:45)
[2023-12-20] MEDS ORDERED: METOPROLOL TARTRATE 5 MG/5 ML INJ IV ONE (10:52)
[2023-12-20] MEDS: NA CHLORIDE 0.9% 1,000 ML IV SCH (11:00)
[2023-12-20] MEDS: METHYLPREDNISOLONE 125 MG INJ IV ONE (11:27)
[2023-12-20] MEDS ORDERED: DIGOXIN 0.25 MG/ML AMP ONE (11:43)
[2023-12-20] MEDS ORDERED: FUROSEMIDE 20 MG/ 2ML VIAL ONE (11:43)
[2023-12-20] MEDS ORDERED: ALBUMIN HUMAN 25% 50 ML IV ONE ×2 (11:44→12:42)
[2023-12-20] MEDS: HYDROMORPHONE HCL 1 MG/ML INJ IV PRN (11:48)
[2023-12-20] MEDS: METOPROLOL TARTRATE 5 MG/5 ML INJ IV SCH (12:00)
[2023-12-20] MEDS: DIGOXIN 0.25 MG/ML AMP IV ONE (12:15)
[2023-12-20] MEDS: FUROSEMIDE 20 MG/ 2ML VIAL IV ONE (12:15)
--- NOTE | 2023-12-20 12:21 | RAD REPORT ---
EXAM DESCRIPTION: CT - Chest Abd Pelvis Wo Con - 12/20/2023 6:43 am CLINICAL HISTORY: Dyspnea, abdominal pain COMPARISON: 12/06/2023. TECHNIQUE: CT CHEST ABDOMEN PELVIS WITHOUT IV CONTRAST on 12/20/2023 1:13 AM ELECTRONIC SPECIALIST This exam was performed according to our departmental dose-optimization program, which includes autom ated exposure control, adjustment of the mA and/or kV according to patient size and/or use of iterati ve reconstruction technique. FINDINGS: Chest: The heart is enlarged. There is no pericardial effusion. Intrathoracic lymph nodes are not enlarged. Right chest port is in place. There appear to be bilateral nephrostomy catheters. There are moderate bilateral pleural effusions. Central airways are patent. There are innumerable, mo re than 50 bilateral pulmonary nodules scattered throughout all lobes measuring up to 1.3 cm. There i s bibasilar airspace disease. Abdomen: Liver is heterogeneous containing multiple masses measuring up to 6.3 cm. IVC filter is in p lace. There is no biliary dilatation. Gallbladder is not well seen. The pancreas and spleen are aubrey l in appearance. Adrenal glands are poorly seen. There may be mild fullness of both renal collecting systems although the kidneys are poorly assessed. Abdominal aorta is normal in course and caliber without aneurysm. There is no free air. There is no r etroperitoneal adenopathy. Pelvis: There is contrast throughout the colon. Urinary bladder is unremarkable. There is no free flu id. Appendix is normal. Skeleton: There are no acute osseous findings. No suspicious bony lesions. IMPRESSION: Redemonstration of extensive metastatic disease to the lungs and liver. . Electronically signed by: Cooper Mcmahon MD 12/20/2023 03:48 AM ELECTRONIC SPECIALIST Due to temporary technical issues with the PACS/Fluency reporting system, reports are being signed by the in house radiologist without review as a courtesy to ensure prompt reporting. The interpreting r adiologist is fully responsible for the content of the report
--- NOTE | 2023-12-20 12:28 | ECHO ---
HEIGHT: 5 ft 10 in WEIGHT: 165 lb 0 oz DATE OF STUDY: 12/20/[address]: Peggy Isidro FRYER OPERATORPina 2-DIMENSIONAL: YES M.MODE: YES DOPPLER: YES COLOR FLOW: YES TDS: PORTABLE: YES DEFINITY: BUBBLE STUDY: DIAGNOSIS: ELEVATED TROPONIN CARDIAC HISTORY: CATHERIZATION: SURGERY: PROSTHETIC VALVE: PACEMAKER: MEASUREMENTS (cm) DIASTOLIC (NORMALS) SYSTOLIC (NORMALS) IVSd 0.9 (0.6-1.2) LA Diam 4.9 (1.9-4.0) LVEF 13% LVIDd 6.5 (3.5-5.7) LVIDs 6.1 (2.0-3.5) %FS 6% LVPWd 1.0 (0.6-1.2) Ao Diam 3.5 (2.0-3.7) 2 DIMENSIONAL ASSESSMENT: RIGHT ATRIUM: NORMAL LEFT ATRIUM: SEVERELY ENLARGED RIGHT VENTRICLE: NORMAL LEFT VENTRICLE: SEVERELY ENLARGED TRICUSPID VALVE: MODERATE TRICUSPID REGURGITATION MITRAL VALVE: SEVERE MITRAL REGURGITATION PULMONIC VALVE: MILD PULMONIC INSUFFICIENCY AORTIC VALVE: NORMAL PERICARDIAL EFFUSION: NONE AORTIC ROOT: NORMAL LEFT VENTRICULAR WALL MOTION: SEVERE GLOBAL HYPOKINESIS DOPPLER/COLOR FLOW: GRADE II DIASTOLIC DYSFUNCTION COMMENTS: 1. SEVERE ENLARGED LEFT VENTRICLE, SEVERELY REDUCED LEFT VENTRICULAR FUNCTION, EJECTION FRACTION 5-10%, SEVERE GLOBAL HYPOKINESIS 2. MODERATELY REDUCED RIGHT VENTRICULAR FUNCTION 3. SEVERE SECONDARY MITRAL REGURGITATION DUE TO POOR LEAFLETS COAPTATION 4. MODERATE TRICUSPID REGURGITATION, RIGHT VENTRICULAR SYSTOLIC PRESSURE 40-45 mmHg (MODERATE PULMONARY HYPERTENSION). 5. SEVERE ENLAGED LEFT ATRIUM 6. INFERIOR VENA CAVA NORAML, COLLAPSABLE TECHNOLOGIST: HARLEY BAILEY
[2023-12-20 13:56] LABS: Absolute Lymphocytes (CBC) 0.2 K/uL (0.7-4.9); Basophils % 0.1 % (0-1.3); Hematocrit 26.8 % (39.6-49.0); Hemoglobin 9.1 g/dL (13.6-17.9); Lymphocytes % 3.8 % (15.3-44.8); MPV 8.1 fL (7.6-11.3); Platelets 246 thou/uL (152-406); RBC Red Blood Cell Count 2.98 M/uL (4.33-5.43)
[2023-12-20] MEDS: PIPER TAZO 3.375 GM in NA CHLORIDE 0.9% 100 ML IV SCH (17:37)
[2023-12-20] MEDS: FUROSEMIDE 40 MG/4 ML VIAL IV ONE (20:00)
[2023-12-20] MEDS ORDERED: VANCOMYCIN 1.5 GM in NA CHLORIDE 0.9% 500 ML IVPB SCH (21:00)
[2023-12-20] MEDS: VANCOMYCIN 1 GM/VIAL ONE (21:57)
[2023-12-20] MEDS: NA CHLORIDE 0.9% 500 ML ONE (21:59)
[2023-12-20] MEDS ORDERED: VANCOMYCIN 1.25 GM in NA CHLORIDE 0.9% 250 ML IVPB SCH (22:00)
[2023-12-20] MEDS: VANCOMYCIN 1.75 GM in NA CHLORIDE 0.9% 500 ML IVPB ONE (22:00)
[2023-12-21 03:58] LABS: Absolute Lymphocytes (CBC) 0.3 K/uL (0.7-4.9); Eosinophils % 0.1 % (0-4.4); Hematocrit 29.8 % (39.6-49.0); Hemoglobin 9.9 g/dL (13.6-17.9); Lymphocytes % 5.5 % (15.3-44.8); MCV 89.6 fL (80-100); MPV 8.2 fL (7.6-11.3); Platelets 221 thou/uL (152-406); RBC Red Blood Cell Count 3.33 M/uL (4.33-5.43)
[2023-12-21 04:17] LABS: Anion Gap 15.3 mEq/L (5.0-15.0); Potassium 5.3 mEq/L (3.5-5.1)
--- NOTE | 2023-12-21 07:29 | P.PN ---
Subjective Date of Service: 12/21/23 Chief Complaint: Anemia Awake and alert, family at bedside, cardiology, nephrology consult total assist with care, pain control with as needed analgesics presented with weakness and severe anemia, hemoglobin 6.4 plan to transfuse packed red blood cell Very low EF, discussed EF with patient, family, patient expressed desire to be full code - Physical Exam General: Alert HEENT: Atraumatic, Normocephalic Neck: Supple Respiratory: Normal air movement Cardiovascular: Regular rate/rhythm, Normal S1 S2 Gastrointestinal: Soft and benign Musculoskeletal: No swelling <Peggy Isidro - Last Filed: 12/21/23 14:19> Date of Service: 12/21/23 <Keith Walter - Last Filed: 12/22/23 15:45> Review of Systems Per HPI <Peggy Isidro - Last Filed: 12/21/23 14:19> Physical Examination - Vital Signs Temperature: 97.8 F Blood Pressure: 119/77 Pulse: 103 Respirations: 16 Pulse Ox (%): 97 <Peggy Isidro - Last Filed: 12/21/23 14:19> - Studies Microbiology Data (last 24 hrs): 12/20/23 08:30 Clean Catch Urine [place] Count - Final >100,000 CFU/ML. 12/20/23 08:30 Clean Catch Urine - Final Escherichia Coli Esbl <Keith Walter - Last Filed: 12/22/23 15:45> Assessment And Plan - Plan Assessment and Plan - Plan Symptomatic anemia: History of colon cancer: Status post colostomy creation. Deemed due to GI loss secondary to cancer of the colon among other issue. Blood product transfusion has been started. Will keep hemoglobin above 7.0. Trend H&H, patient received 2 units of packed red blood cells hemoglobin 9.1 Follow clinical symptomatology Acute kidney injury on chronic kidney disease: Elevated creatinine of 2.590. Patient baseline creatinine is about 2.3. Will continue gentle hydration. Nephrology consult Acute on chronic heart failure Pulmonary hypertension Elevated BNP [id number] Echo COMMENTS: 1. SEVERE ENLARGED LEFT VENTRICLE, SEVERELY REDUCED LEFT VENTRICULAR FUNCTION, EJECTION FRACTION 5-10%, SEVERE GLOBAL HYPOKINESIS 2. MODERATELY REDUCED RIGHT VENTRICULAR FUNCTION 3. SEVERE SECONDARY MITRAL REGURGITATION DUE TO POOR LEAFLETS COAPTATION 4. MODERATE TRICUSPID REGURGITATION, RIGHT VENTRICULAR SYSTOLIC PRESSURE 40-45 mmHg (MODERATE PULMONARY HYPERTENSION). 5. SEVERE ENLAGED LEFT ATRIUM 6. INFERIOR VENA CAVA NORAML, COLLAPSABLE Cardiology recommendation advise to start patient on lasix 20 mg po BID add coreg 3.125 mg po BID if BP can tolerate that. Severe protein malnutrition Albumin 1.7 Dietitian consult Total care with transfers Nepro protein shakes 3 times daily added Prophylaxis: SCDs for DVT prophylaxis due to severe anemia CODE STATUS: Full code-discussed with patient and family patient request to be full code alert and oriented x 3 Disposition: We will treat his severe anemia with blood product transfusion and he will be discharged back to assisted. Discharge Plan: Senior Living - Code Status/Comfort Care Code Status: Full Code Critical Care: No Time Spent Managing PTS Care (In Minutes): 35 <Peggy Isidro - Last Filed: 12/21/23 14:19> Date of Service: 12/21/23 Patient seen and examined. No significant changes in patient's current condition. Patient with metastatic colorectal cancer to the liver and lungs. Patient emaciated and cachectic. Patient with severe cardiomyopathy. Patient prognosis is poor. Will readdress CODE STATUS. Patient not a surgical candidate. Prognosis remains grim. <Keith Walter - Last Filed: 12/22/23 15:45>
--- NOTE | 2023-12-21 08:06 | P.PN ---
Date of Service: 12/21/23 Patient is a 58-year-old gentleman who came to the hospital with metastatic colon cancer. Patient has metastatic cancer to the liver and the lungs. Patient was on chemotherapy but he never followed up so his oncologist had put him on oral chemotherapy. I spoke to his oncologist who states patient has been very noncompliant with his treatment and with his cancer so widespread is pretty much resistant to the oral chemotherapy. He has talked with patient about hospice care as there is no further medical or oncologic interventions that would be beneficial. Patient also had an echocardiogram with an ejection fraction of 10%. Patient is not a candidate for any surgical procedures at this time. Patient really does not have any surgical options at this point that would benefit him. He is very cachectic and emaciated. Patient is bedbound and his performance status is suboptimal to any surgical intervention. Patient is wanting to remain a full code. His prognosis remains poor, and we will continue with medical therapy as possible. However with him having severe cardiomyopathy as well as sepsis there is unfortunately not a lot of medical interventions that will be able to improve his long-term outcome.
[2023-12-21] MEDS: ALBUMIN HUMAN 25% 100 ML IV ONE (09:30)
[2023-12-21] MEDS: SODIUM ZIRCONIUM CYCLOSILICATE 10 GM/PKT PO ONE (09:36)
--- NOTE | 2023-12-21 11:37 | P.CNS ---
Date of Consult: 12/21/23 Reason for Consult: JANET/ CKD Requesting Physician: Keith Walter Chief Complaint: Anemia History of Present Illness: 58-year-old female patient with medical history significant for hypertension, history of colon cancer on chemotherapy presented to the ED due to worsening weakness also found to have severe anemia. Hemoglobin was 6.4. He was started on blood product transfusion and was admitted for supportive care for admini stration of blood products. He denied overt episode of nausea, vomiting, diarrhea, abdominal pain. 01:13 This 58 yrs old Black Male presents to ER via Unassigned with complaints of Dyspnea and sp4 abdominal pain . 01:14 PMH PSH 10/26/2021 - History of Abdominal infection/abdominal abscess. History of 1. sp4 Exploratory laparotomy. 2. Partial sigmoid colectomy. 3. Creation of end sigmoid colostomy. 4. Abdominal washout. 5. Drainage of abdominal and pelvic abscesses. 6. Replacement of 10 mm IZZY drain. . Patient has history of rectal cancer, previous abdominal abscess, previous sigmoid perforation, history of partial sigmoid colectomy, sigmoid colostomy, and metastatic liver disease. Patient states he has developed dyspnea in the last 24 hours. PMH -systolic heart failure, hypertension, hyperlipidemia, rectal cancer, gout, chronic kidney disease stage III, Chemo- Port placement, Medications at home include carvedilol 3.125 mg p.o. twice daily, Ensure, as needed, magnesium chloride, polyethylene glycol, sennosides . .. 04:13 Patient arrives from [facility] and rehab facility. Patient is full sp4 code. Patient takes atorvastatin calcium 20 mg bedtime, furosemide 20 mg once a day, hydromorphone 4 mg tablet every 3 hours as needed pain, tamsulosin 0.4 mg bedtime, acetaminophen 325 2 tablets every 4 hours as needed, primary physician is Dr. Oh. 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 Stage IV rectal cancer with lung and liver metastatic disease.. Allergies No Known Allergies Allergy (Verified 05/24/23 23:26) Home medications list reviewed: Yes Home Medications: Polyethylene Glycol 3350 [Miralax] 17 gm PO DAILY #30 packet 08/31/23 Allopurinol 100 mg PO DAILY 12/22/23 Furosemide [Lasix*] 40 mg PO DAILY 12/22/23 Megestrol [Megace*] 20 mg PO DAILY 12/22/23 Metoprolol Tartrate [Lopressor*] 12.5 mg PO BID 12/22/23 Trifluridine/Tipiracil HCl [Lonsurf 20 mg-8.19 mg Tablet] 1 each PO 12/22/23 - Past Medical/Surgical History Diabetic: No -: Systolic CHF -: HTN -: HLD -: Rectal Cancer Dx January 2021 -: Gout -: JANET/ CKD III (Dr. Hernandez/ Dr. Miranda) -: Chemo-Port placement - Family History Mother Medical History: Heart disease, Hypertension, Other (see notes) Notes: CHF Father Medical History: Diabetes - Social History Smoking Status: Never smoker Alcohol use: No CD- Drugs: No Caffeine use: Yes Place of Residence: [facility] Review of Systems 10-point ROS is otherwise unremarkable General: Weakness, Malaise Neurological: Weakness Physical Examination Temp Pulse Resp BP Pulse Ox 98.1 F 87 16 123/81 100 12/21/23 08:00 12/21/23 08:00 12/21/23 09:47 12/21/23 08:00 12/21/23 09:47 General: In no apparent distress, Cooperative, Cachectic HEENT: Atraumatic Neck: Supple Respiratory: Normal air movement Cardiovascular: No edema Gastrointestinal: Soft and benign, Non-distended Musculoskeletal: No clubbing, No contractures Integumentary: No rashes, No cyanosis Neurological: Abnormal speech Blood work reviewed in the chart. Imagings Data: EXAM DESCRIPTION: CT - Chest Abd Pelvis Wo Con - 12/20/2023 6:43 am CLINICAL HISTORY: Dyspnea, abdominal pain COMPARISON: 12/06/2023. TECHNIQUE: CT CHEST ABDOMEN PELVIS WITHOUT IV CONTRAST on 12/20/2023 1:13 AM DESTINATION IMAGINATION COORDINATOR This exam was performed according to our departmental dose-optimization program, which includes automated exposure control, adjustment of the mA and/or kV according to patient size and/or use of iterative reconstruction technique. FINDINGS: Chest: The heart is enlarged. There is no pericardial effusion. Intrathoracic lymph nodes are not enlarged. Right chest port is in place. There appear to be bilateral nephrostomy catheters. There are moderate bilateral pleural effusions. Central airways are patent. There are innumerable, more than 50 bilateral pulmonary nodules scattered throughout all lobes measuring up to 1.3 cm. There is bibasilar airspace disease. Abdomen: Liver is heterogeneous containing multiple masses measuring up to 6.3 cm. IVC filter is in place. There is no biliary dilatation. Gallbladder is not well seen. The pancreas and spleen are normal in appearance. Adrenal glands are poorly seen. There may be mild fullness of both renal collecting systems although the kidneys are poorly assessed. Abdominal aorta is normal in course and caliber without aneurysm. There is no free air. There is no retroperitoneal adenopathy. Pelvis: There is contrast throughout the colon. Urinary bladder is unremarkable. There is no free fluid. Appendix is normal. Skeleton: There are no acute osseous findings. No suspicious bony lesions. IMPRESSION: Redemonstration of extensive metastatic disease to the lungs and liver. LEFT VENTRICULAR WALL MOTION: SEVERE GLOBAL HYPOKINESIS DOPPLER/COLOR FLOW: GRADE II DIASTOLIC DYSFUNCTION COMMENTS: 1. SEVERE ENLARGED LEFT VENTRICLE, SEVERELY REDUCED LEFT VENTRICULAR FUNCTION, EJECTION FRACTION 5-10%, SEVERE GLOBAL HYPOKINESIS 2. MODERATELY REDUCED RIGHT VENTRICULAR FUNCTION 3. SEVERE SECONDARY MITRAL REGURGITATION DUE TO POOR LEAFLETS COAPTATION 4. MODERATE TRICUSPID REGURGITATION, RIGHT VENTRICULAR SYSTOLIC PRESSURE 40-45 mmHg (MODERATE PULMONARY HYPERTENSION). 5. SEVERE ENLAGED LEFT ATRIUM 6. INFERIOR VENA CAVA [place], COLLAPSABLE Conclusions/Impression: Stage I JANET may be CRS CKD II with Proteinuria -No NSAIDs Hyperkalemia -Agree with [facility] Systolic Diastolic CHF, A/C -Continue gentle diuresis Severe Malnutrition in the setting of metastatic colon cancer Hypoalbuminemia -Consider protein supplementation Anemia in chronic illness -Monitor H&H Acute Infective Cystitis -Continue abx -Follow up culture Case reviewed with Dr. Walter Thank you kindly for the consultation
--- NOTE | 2023-12-21 11:57 | P.CNS ---
Date of Consult: 12/21/23 Chief Complaint: heart failure History of Present Illness: patient with PMH of heart failure reduced EF, presented with generalized weakness, found to be anemic, patient got history of colonc cancer with mets, patient is very weak, cachectic and has been on chemotherapy and no surgical intervention per patient, he denies chest pain but report SOB, prettey much bed bound. Allergies No Known Allergies Allergy (Verified 05/24/23 23:26) Home Medications: carvediloL [Coreg*] 3.125 mg PO BID 6AM 6PM #60 tab 05/11/23 Ensure Enlive 237 ml PO BID #30 can 08/31/23 Magnesium Chloride [Slow-Mag*] 64 mg PO BID #60 tab 08/31/23 Polyethylene Glycol 3350 [Miralax] 17 gm PO DAILY #30 packet 08/31/23 Sennosides [Senokot] 17.2 mg PO BID #120 tab 08/31/23 Trifluridine/Tipiracil HCl [Lonsurf 20 mg-8.19 mg Tablet] 2 tab PO BID 09/14/23 Hydrocodone 10/APAP 325 [Kenna 10/325] 1 tab PO Q6H PRN #30 tab 09/15/23 - Past Medical/Surgical History Diabetic: No -: Systolic CHF -: HTN -: HLD -: Rectal Cancer Dx January 2021 -: Gout -: JANET/ CKD III (Dr. Hernandez/ Dr. Miranda) -: Chemo-Port placement - Family History Mother Medical History: Heart disease, Hypertension, Other (see notes) Notes: CHF Father Medical History: Diabetes - Social History Smoking Status: Never smoker Alcohol use: No CD- Drugs: No Caffeine use: Yes Place of Residence: [facility] Review of Systems 10-point ROS is otherwise unremarkable Physical Examination Temp Pulse Resp BP Pulse Ox 98.1 F 87 16 123/81 100 12/21/23 08:00 12/21/23 08:00 12/21/23 09:47 12/21/23 08:00 12/21/23 09:47 General: Alert, Oriented x3, Cachectic, Moderate distress HEENT: Atraumatic Neck: Supple Respiratory: Clear to auscultation bilaterally Cardiovascular: No edema, Normal S1 S2 Gastrointestinal: Normal bowel sounds - Problems (1) Acute on chronic combined systolic and diastolic heart failure Current Visit: Yes Status: Acute Plan: patient echo shows severe dilated LV with very poor LV function, on exam patient is not showing signs of volume overload but patient is weak and cachectic, with patient history of advanced cancer and current situation, we would only optimize medical therapy. advise to start patient on lasix 20 mg po BID add coreg 3.125 mg po BID if BP can tolerate that. (2) Mitral regurgitation Current Visit: Yes Status: Acute Plan: etiology is secondary to LV dilation, no intervention is possible at this point due to above. diuresis and medical management.
--- NOTE | 2023-12-21 14:17 | EKG ---
Test Date: 2023-12-20 Test Time: 10:58:49 Washer Meat: JEANETTE MEASUREMENT RESULTS: Intervals: Rate: 112 IN: 164 QRSD: 102 QT: 352 QTc: 480 [place]: P: 57 IN: 164 QRS: -52 T: 118 INTERPRETIVE STATEMENTS: Poor data quality, interpretation may be adversely affected Sinus tachycardia Pulmonary disease pattern Left anterior fascicular block Nonspecific T wave abnormality Abnormal ECG Compared to ECG 12/20/2023 01:51:05 Left anterior fascicular block now present Possible ischemia no longer present T-wave abnormality still present Electronically Signed On 12-21-23 14:13:20 REGRADER by Mayur Birch
--- NOTE | 2023-12-21 14:18 | EKG ---
Test Date: 2023-12-20 Test Time: 01:51:05 Museum Exhibit Designer: RV MEASUREMENT RESULTS: Intervals: Rate: 109 NC: 160 QRSD: 102 QT: 370 QTc: 498 [place]: P: 71 NC: 160 QRS: 51 T: 106 INTERPRETIVE STATEMENTS: Sinus tachycardia T wave abnormality, consider lateral ischemia Abnormal ECG Compared to ECG 10/03/2023 10:58:39 T-wave abnormality now present Possible ischemia now present Sinus rhythm no longer present ST (T wave) deviation no longer present Electronically Signed On 12-21-23 14:13:58 CURTAIN MENDER by Mayur Birch
[2023-12-21] MEDS: FUROSEMIDE 20 MG/ 2ML VIAL IV SCH (16:30)
[2023-12-21] MEDS: carvediloL 3.125 MG TAB PO SCH (18:00)
[2023-12-21] MEDS: PIPER TAZO 3.375 GM in NA CHLORIDE 0.9% 100 ML IV SCH (20:18)
[2023-12-21] MEDS: ENSURE ENLIVE 237 ML CAN PO SCH (20:18)
[2023-12-21] MEDS ORDERED: NEPRO SHAKE 237 ML CAN PO SCH (21:00)
--- NOTE | 2023-12-22 08:09 | P.PN ---
Subjective Date of Service: 12/22/23 Chief Complaint: Anemia Awake and alert, family at bedside, cardiology, nephrology consult total assist with care, pain control with as needed analgesics presented with weakness and severe anemia, hemoglobin 6.4 plan to transfuse packed red blood cell Very low EF, discussed EF with patient, family, patient expressed desire to be full code - Physical Exam General: Alert HEENT: Atraumatic, Normocephalic Neck: Supple Respiratory: Normal air movement Cardiovascular: Regular rate/rhythm, Normal S1 S2 Gastrointestinal: Soft and benign Musculoskeletal: No swelling, moderate generalized weakness <Peggy Isidro - Last Filed: 12/22/23 08:09> Date of Service: 12/22/23 <Keith Walter - Last Filed: 12/22/23 15:46> Review of Systems Per HPI <Peggy Isidro - Last Filed: 12/22/23 08:09> Physical Examination - Vital Signs Temperature: 96.7 F Blood Pressure: 101/84 Pulse: 101 Respirations: 16 Pulse Ox (%): 100 <Peggy Isidro - Last Filed: 12/22/23 08:09> - Studies Microbiology Data (last 24 hrs): 12/20/23 08:30 Clean Catch Urine [place] Count - Final >100,000 CFU/ML. 12/20/23 08:30 Clean Catch Urine - Final Escherichia Coli Esbl <Keith Walter - Last Filed: 12/22/23 15:46> Assessment And Plan - Plan Assessment and Plan - Plan Symptomatic anemia: Metastatic stage IV colon cancer with liver mets history of colon cancer: Status post colostomy creation. Deemed due to GI loss secondary to cancer of the colon among other issue. Blood product transfusion has been started. Will keep hemoglobin above 7.0. Trend H&H, patient received 2 units of packed red blood cells hemoglobin 9.1 Follow clinical symptomatology Hyperkalemia Potassium 5.3 Nephrology following Acute renal failure acute kidney injury on chronic kidney disease: Elevated creatinine of 2.590. Patient baseline creatinine is about 2.3. Will continue gentle hydration. Nephrology consult Acute on chronic heart failure Pulmonary hypertension Elevated BNP [id number] Echo COMMENTS: 1. SEVERE ENLARGED LEFT VENTRICLE, SEVERELY REDUCED LEFT VENTRICULAR FUNCTION, EJECTION FRACTION 5-10%, SEVERE GLOBAL HYPOKINESIS 2. MODERATELY REDUCED RIGHT VENTRICULAR FUNCTION 3. SEVERE SECONDARY MITRAL REGURGITATION DUE TO POOR LEAFLETS COAPTATION 4. MODERATE TRICUSPID REGURGITATION, RIGHT VENTRICULAR SYSTOLIC PRESSURE 40-45 mmHg (MODERATE PULMONARY HYPERTENSION). 5. SEVERE ENLAGED LEFT ATRIUM 6. INFERIOR VENA CAVA NORAML, COLLAPSABLE Cardiology recommendation advise to start patient on lasix 20 mg po BID add coreg 3.125 mg po BID if BP can tolerate that. Severe protein malnutrition Albumin 1.7 Dietitian consult Total care with transfers Nepro protein shakes 3 times daily added Prophylaxis: SCDs for DVT prophylaxis due to severe anemia CODE STATUS: Full code-discussed with patient and family patient request to be full code alert and oriented x 3 Disposition: We will treat his severe anemia with blood product transfusion and [facility] Discharge Plan: Longterm - Code Status/Comfort Care Code Status: Full Code Critical Care: No Time Spent Managing PTS Care (In Minutes): 35 <Peggy Isidro - Last Filed: 12/22/23 08:09> Date of Service: 12/22/23 Patient seen and examined. Patient with metastatic colorectal cancer to the liver and lungs. Patient with severe cardiomyopathy with an ejection fraction of 10%. Patient is emaciated and cachectic. Patient with severe cardiomyopathy . Patient prognosis is poor. Will readdress CODE STATUS. Patient not a surgical candidate. Prognosis remains poor. <Keith Walter - Last Filed: 12/22/23 15:46>
[2023-12-22] MEDS: VANCOMYCIN 1.25 GM in NA CHLORIDE 0.9% 250 ML IVPB SCH ×2 (10:00→14:23)
[2023-12-22 11:31] LABS: Anion Gap 14.8 mEq/L (5.0-15.0); Potassium 4.8 mEq/L (3.5-5.1)
[2023-12-22 11:41] LABS: Absolute Lymphocytes (CBC) 0.2 K/uL (0.7-4.9); Hemoglobin 9.4 g/dL (13.6-17.9); Lymphocytes % 3.1 % (15.3-44.8); MCV 90.6 fL (80-100); MPV 8.5 fL (7.6-11.3); Platelets 215 thou/uL (152-406); RBC Red Blood Cell Count 3.09 M/uL (4.33-5.43)
[2023-12-22] MEDS: Meropenem 500 MG in NA CHLORIDE 0.9% 100 ML IV SCH (17:13)
--- NOTE | 2023-12-22 19:45 | P.PN ---
Date of Service: 12/22/23 Vital Signs Temp Pulse Resp BP Pulse Ox 97.1 F 96 H 16 112/85 96 12/22/23 16:00 12/22/23 17:17 12/22/23 16:30 12/22/23 17:17 12/22/23 16:30 Medications Carvedilol (Carvedilol 3.125 Mg Tab) 3.125 mg PO BID 6AM 6PM [facility] Last Admin: 12/22/23 17:17 Dose: 3.125 mg Furosemide (Furosemide 20 Mg/ 2ml Vial) 20 mg IV BIDL [facility] Last Admin: 12/22/23 17:16 Dose: 20 mg Hydromorphone HCl (Hydromorphone Hcl 1 Mg/Ml Inj) 1 mg IV Q4H PRN PRN Reason: Pain scale 8-10 (Severe) Last Admin: 12/22/23 16:00 Dose: 1 mg Meropenem 500 mg/ Sodium (Chloride) 100 mls @ 200 mls/hr IV Q8HR [facility] Last Admin: 12/22/23 17:13 Dose: 100 mls Vancomycin HCl 1.25 gm/ Sodium (Chloride) 250 mls @ 166.667 mls/hr IVPB Q36H [facility] Last Admin: 12/22/23 14:23 Dose: 250 mls Nutritional Formula (Ensure Enlive 237 Ml Can) 237 ml PO BID [facility] Last Admin: 12/22/23 11:48 Dose: 237 ml Ondansetron HCl (Ondansetron 4 Mg/2 Ml Vial) 4 mg IV Q6HP PRN PRN Reason: NAUSEA / VOMITING Microbiology Results 12/20/23 08:30 Clean Catch Urine [place] Count - Final >100,000 CFU/ML. 12/20/23 08:30 Clean Catch Urine - Final Escherichia Coli Esbl 12/20/23 02:00 Blood - Blood Aerobic Blood Culture - Preliminary 12/20/23 02:00 Blood - Blood Blood Culture Gram Stain - Preliminary 12/20/23 02:00 Blood - Blood Anaerobic Blood Culture - Preliminary 12/20/23 02:00 Blood - Blood Gram Stain - Preliminary 12/20/23 01:30 Blood - Blood Aerobic Blood Culture - Preliminary 12/20/23 01:30 Blood - Blood Blood Culture Gram Stain - Preliminary 12/20/23 01:30 Blood - Blood Anaerobic Blood Culture - Preliminary 12/20/23 01:30 Blood - Blood Gram Stain - Preliminary Assessment/ Plan: Nephrology No dyspnea No chest pain Weakness and fatigue No acute events overnight Vitals, medications, blood work and imaging reviewed in the chart General: In no apparent distress, Cooperative, Cachectic HEENT: Atraumatic. DMM Neck: Supple Respiratory: Normal air movement Cardiovascular: No edema Gastrointestinal: Soft and benign, Non-distended Musculoskeletal: No clubbing, No contractures Integumentary: No rashes, No cyanosis Neurological: Abnormal speech Blood work reviewed in the chart. Imagings Data: EXAM DESCRIPTION: CT - Chest Abd Pelvis Wo Con - 12/20/2023 6:43 am CLINICAL HISTORY: Dyspnea, abdominal pain COMPARISON: 12/06/2023. 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 FINDINGS: Chest: The heart is enlarged. There is no pericardial effusion. Intrathoracic lymph nodes are not enlarged. Right chest port is in place. There appear to be bilateral nephrostomy catheters. There are moderate bilateral pleural effusions. Central airways are patent. There are innumerable, more than 50 bilateral pulmonary nodules scattered throughout all lobes measuring up to 1.3 cm. There is bibasilar airspace disease. Abdomen: Liver is heterogeneous containing multiple masses measuring up to 6.3 cm. IVC filter is in place. There is no biliary dilatation. Gallbladder is not well seen. The pancreas and spleen are normal in appearance. Adrenal glands are poorly seen. There may be mild fullness of both renal collecting systems although the kidneys are poorly assessed. Abdominal aorta is normal in course and caliber without aneurysm. There is no free air. There is no retroperitoneal adenopathy. Pelvis: There is contrast throughout the colon. Urinary bladder is unremarkable. There is no free fluid. Appendix is normal. Skeleton: There are no acute osseous findings. No suspicious bony lesions. IMPRESSION: Redemonstration of extensive metastatic disease to the lungs and liver. LEFT VENTRICULAR WALL MOTION: SEVERE GLOBAL HYPOKINESIS DOPPLER/COLOR FLOW: GRADE II DIASTOLIC DYSFUNCTION COMMENTS: 1. SEVERE ENLARGED LEFT VENTRICLE, SEVERELY REDUCED LEFT VENTRICULAR FUNCTION, EJECTION FRACTION 5-10%, SEVERE GLOBAL HYPOKINESIS 2. MODERATELY REDUCED RIGHT VENTRICULAR FUNCTION 3. SEVERE SECONDARY MITRAL REGURGITATION DUE TO POOR LEAFLETS COAPTATION 4. MODERATE TRICUSPID REGURGITATION, RIGHT VENTRICULAR SYSTOLIC PRESSURE 40-45 mmHg (MODERATE PULMONARY HYPERTENSION). 5. SEVERE ENLAGED LEFT ATRIUM 6. INFERIOR VENA CAVA NORAML, COLLAPSABLE Conclusions/Impression: Stage I JANET in the setting of diuresis CKD II with Proteinuria -No NSAIDs Hyperkalemia -Lokelma prn Systolic Diastolic CHF, A/C -Continue gentle diuresis Severe Malnutrition in the setting of metastatic colon cancer Hypoalbuminemia -Continue protein supplementation Anemia in chronic illness -Monitor H&H Acute Infective Cystitis -Continue abx -Follow up culture Case reviewed with Dr. Walter Recommmend hospice care due to metastatic colon cancer
[2023-12-23 04:49] LABS: Absolute Basophils 0.1 K/uL (0-0.5); Absolute Lymphocytes (CBC) 0.2 K/uL (0.7-4.9); Basophils % 0.8 % (0-1.3); Hematocrit 28.3 % (39.6-49.0); Hemoglobin 9.6 g/dL (13.6-17.9); Lymphocytes % 2.1 % (15.3-44.8); MCV 91.2 fL (80-100); MPV 8.4 fL (7.6-11.3); Platelets 224 thou/uL (152-406); RBC Red Blood Cell Count 3.11 M/uL (4.33-5.43)
[2023-12-23 05:23] LABS: Anion Gap 14.8 mEq/L (5.0-15.0); Potassium 4.8 mEq/L (3.5-5.1); Uric Acid 7.5 mg/dL (3.5-7.2)
--- NOTE | 2023-12-23 06:49 | P.PN ---
Subjective Date of Service: 12/23/23 Chief Complaint: Anemia Awake and alert, family at bedside, cardiology, nephrology consult total assist with care, pain control with as needed analgesics presented with weakness and severe anemia, hemoglobin 6.4 plan to transfuse packed red blood cell Very low EF, discussed EF with patient, family, CODE STATUS with patient, patient agreed to discharge to retirement on hospice, long term care social worker consulted - Physical Exam General: Alert HEENT: Atraumatic, Normocephalic Neck: Supple Respiratory: Normal air movement Cardiovascular: Regular rate/rhythm, Normal S1 S2 Gastrointestinal: Soft and benign Musculoskeletal: No swelling, moderate generalized weakness Review of Systems Per HPI Physical Examination - Vital Signs Temperature: 96.4 F Blood Pressure: 117/85 Pulse: 98 Respirations: 18 Pulse Ox (%): 100 - Studies Microbiology Data (last 24 hrs): 12/20/23 08:30 Clean Catch Urine [place] Count - Final >100,000 CFU/ML. 12/20/23 08:30 Clean Catch Urine - Final Escherichia Coli Esbl Assessment And Plan - Plan Assessment and Plan - Plan Symptomatic anemia: Metastatic stage IV colon cancer with liver mets history of colon cancer: Status post colostomy creation. Deemed due to GI loss secondary to cancer of the colon among other issue. Blood product transfusion has been started. Will keep hemoglobin above 7.0. Trend H&H, patient received 2 units of packed red blood cells hemoglobin 9.1 Follow clinical symptomatology Hyperkalemia Potassium 5.3 Nephrology following Acute renal failure acute kidney injury on chronic kidney disease: Elevated creatinine of 2.590. Patient baseline creatinine is about 2.3. Will continue gentle hydration. Nephrology consult Acute on chronic heart failure Pulmonary hypertension Elevated BNP [id number] Echo COMMENTS: 1. SEVERE ENLARGED LEFT VENTRICLE, SEVERELY REDUCED LEFT VENTRICULAR FUNCTION, EJECTION FRACTION 5-10%, SEVERE GLOBAL HYPOKINESIS 2. MODERATELY REDUCED RIGHT VENTRICULAR FUNCTION 3. SEVERE SECONDARY MITRAL REGURGITATION DUE TO POOR LEAFLETS COAPTATION 4. MODERATE TRICUSPID REGURGITATION, RIGHT VENTRICULAR SYSTOLIC PRESSURE 40-45 mmHg (MODERATE PULMONARY HYPERTENSION). 5. SEVERE ENLAGED LEFT ATRIUM 6. INFERIOR VENA CAVA NORAML, COLLAPSABLE Cardiology recommendation advise to start patient on lasix 20 mg po BID add coreg 3.125 mg po BID if BP can tolerate that. Severe protein malnutrition Albumin 1.7 Dietitian consult Total care with transfers Nepro protein shakes 3 times daily added Prophylaxis: SCDs for DVT prophylaxis due to severe anemia CODE STATUS: Full code-discussed with patient and family patient request to be full code alert and oriented x 3 Disposition: We will treat his severe anemia with blood product transfusion and he will be discharged back to retirement. Discharge Plan: Correction - Code Status/Comfort Care Code Status: Do Not Attempt Resuscitat Critical Care: No Time Spent Managing PTS Care (In Minutes): 35
--- NOTE | 2023-12-23 12:11 | PN ---
Subjective: The patient is seen and evaluated in room 404. The patient is somewhat alert, able to a nswer questions. Objective: Vital Signs: Stable. Blood pressure last was 124/84, pulse is about 90-100, respiration s are around 14-16. Lungs: Clear anteriorly. The patient has a port on the right side. Understands that he has colon c ancer, does answer some questions, but recall does seem poor. Extremities: No edema. The patient does seem to have some muscle wasting. He does seem cachectic. Has ileostomy on his abdomen. Labs: WBC is 8, hemoglobin 9.6, hematocrit 28.3, platelet count 224. Sodium 142, potassium 4.8, chl oride 109, bicarb is 23, BUN is 109, creatinine is 2.85. Assessment And Plan: The patient with history of colon cancer, ileostomy. The patient with acute on chronic kidney disease. Condition seems quite guarded. The patient currently looks stable from the kidney point of view. He is not getting any NSAIDs. Potassium is reasonable at about 4.8. Continu e with current close monitoring. He has been on antibiotics for cystitis. The patient is at this po int considering hospice care given his colon cancer with metastasis. /BRUCE Voice ID: [id number] Report ID: [id number]
[2023-12-23] MEDS ORDERED: FUROSEMIDE 20 MG TABLET PO SCH (15:00)
[2023-12-24 03:57] LABS: Absolute Lymphocytes (CBC) 0.2 K/uL (0.7-4.9); Basophils % 0.2 % (0-1.3); Hemoglobin 10.1 g/dL (13.6-17.9); Lymphocytes % 2.2 % (15.3-44.8); MCV 91.1 fL (80-100); MPV 8.6 fL (7.6-11.3); Platelets 189 thou/uL (152-406); RBC Red Blood Cell Count 3.29 M/uL (4.33-5.43)
[2023-12-24 04:12] LABS: Anion Gap 16.6 mEq/L (5.0-15.0); Potassium 4.6 mEq/L (3.5-5.1)
--- NOTE | 2023-12-24 07:39 | P.PN ---
Subjective Date of Service: 12/24/23 Chief Complaint: Anemia , cardiology, nephrology consult, patient has great agreed to transition to hospice, health care social worker consulted total assist with care, pain control with as needed analgesics presented with weakness and severe anemia, hemoglobin 6.4 plan to transfuse packed red blood cell, Very low EF, discussed EF with patient, family - Physical Exam General: Alert HEENT: Atraumatic, Normocephalic Neck: Supple Respiratory: Normal air movement Cardiovascular: Regular rate/rhythm, Normal S1 S2 Gastrointestinal: Soft and benign Musculoskeletal: No swelling, severe generalized weakness Review of Systems Per HPI Physical Examination - Vital Signs Temperature: 97.6 F Blood Pressure: 133/94 Pulse: 102 Respirations: 17 Pulse Ox (%): 100 - Studies Microbiology Data (last 24 hrs): 12/20/23 02:00 Blood - Blood Aerobic Blood Culture - Final Enterococcus Faecalis 12/20/23 02:00 Blood - Blood Blood Culture Gram Stain - Final 12/20/23 02:00 Blood - Blood Anaerobic Blood Culture - Final Enterococcus Faecalis 12/20/23 02:00 Blood - Blood Gram Stain - Final 12/20/23 01:30 Blood - Blood Aerobic Blood Culture - Final Enterococcus Faecalis 12/20/23 01:30 Blood - Blood Blood Culture Gram Stain - Final 12/20/23 01:30 Blood - Blood Anaerobic Blood Culture - Final Enterococcus Faecalis 12/20/23 01:30 Blood - Blood Gram Stain - Final Assessment And Plan - Plan Assessment and Plan - Plan Symptomatic anemia: Metastatic stage IV colon cancer with liver mets history of colon cancer: Status post colostomy creation. Deemed due to GI loss secondary to cancer of the colon among other issue. Blood product transfusion has been started. Will keep hemoglobin above 7.0. Trend H&H, patient received 2 units of packed red blood cells hemoglobin 9.1 Follow clinical symptomatology Hyperkalemia improved Potassium 5.3 Nephrology following Acute renal failure acute kidney injury on chronic kidney disease: Elevated creatinine of 2.590. Patient baseline creatinine is about 2.3. Will continue gentle hydration. Nephrology consult Acute on chronic heart failure Pulmonary hypertension Elevated BNP [id number] Echo COMMENTS: 1. SEVERE ENLARGED LEFT VENTRICLE, SEVERELY REDUCED LEFT VENTRICULAR FUNCTION, EJECTION FRACTION 5-10%, SEVERE GLOBAL HYPOKINESIS 2. MODERATELY REDUCED RIGHT VENTRICULAR FUNCTION 3. SEVERE SECONDARY MITRAL REGURGITATION DUE TO POOR LEAFLETS COAPTATION 4. MODERATE TRICUSPID REGURGITATION, RIGHT VENTRICULAR SYSTOLIC PRESSURE 40-45 mmHg (MODERATE PULMONARY HYPERTENSION). 5. SEVERE ENLAGED LEFT ATRIUM 6. INFERIOR VENA CAVA NORAML, COLLAPSABLE Cardiology recommendation advise to start patient on lasix 20 mg po BID add coreg 3.125 mg po BID if BP can tolerate that. Severe protein malnutrition Albumin 1.7 Dietitian consult Total care with transfers Nepro protein shakes 3 times daily added Anemia microcytic improved Hemoglobin 9.9 10.1 Trend H&H Prophylaxis: SCDs for DVT prophylaxis due to severe anemia CODE STATUS: Full code-discussed with patient and family patient request to be full code alert and oriented x 3 Disposition: We will treat his severe anemia with blood product transfusion and he will be discharged back to long term. Discharge Plan: [facility] - Code Status/Comfort Care Code Status: Full Code Critical Care: No Time Spent Managing PTS Care (In Minutes): 35
[2023-12-24] MEDS: FUROSEMIDE 20 MG TABLET PO SCH (09:31)
[2023-12-24] MEDS: Meropenem 1,000 MG in NA CHLORIDE 0.9% 100 ML IV SCH (09:32)
[2023-12-24] MEDS: HYDROMORPHONE HCL 1 MG/ML INJ IV ONE (16:48)
[2023-12-24] MEDS: HYDROMORPHONE HCL 1 MG/ML INJ IV PRN (19:07)
[2023-12-25 09:29] LABS: Absolute Lymphocytes (CBC) 0.2 K/uL (0.7-4.9); Basophils % 0.2 % (0-1.3); Hematocrit 32.4 % (39.6-49.0); Hemoglobin 10.8 g/dL (13.6-17.9); MCV 91.2 fL (80-100); MPV 8.5 fL (7.6-11.3); Platelets 181 thou/uL (152-406); RBC Red Blood Cell Count 3.55 M/uL (4.33-5.43)
[2023-12-25 09:32] LABS: Anion Gap 11.9 mEq/L (5.0-15.0); Potassium 4.9 mEq/L (3.5-5.1)
[2023-12-25 10:21] LABS: Band Neutrophils 1 % (0-1); Blood Morphology Comment NOT SEEN (NOT SEEN); Platelet Estimate ADEQ
--- NOTE | 2023-12-25 12:22 | P.PN ---
Subjective Date of Service: 12/25/23 Chief Complaint: Anemia, sacral wound Subjective: Other (increased pain medications to Q3h, pt refusing position change, refused air mattress) Review of Systems 10-point ROS is otherwise unremarkable General: As per HPI Eyes: Unremarkable ENT: Unremarkable Respiratory: Unremarkable Cardiovascular: Unremarkable Gastrointestinal: As per HPI Musculoskeletal: Unremarkable Integumentary: Other (sacral wound), As per HPI Neurological: As per HPI Physical Examination - Vital Signs Temperature: 98.5 F Blood Pressure: 141/97 Pulse: 108 Respirations: 16 Pulse Ox (%): 100 - Physical Exam General: Alert, Oriented x3 HEENT: Atraumatic Neck: Supple, 2+ carotid pulse no bruit Respiratory: Clear to auscultation bilaterally Cardiovascular: Regular rate/rhythm Capillary refill: <2 Seconds Gastrointestinal: Other (dual colostomies) Musculoskeletal: No clubbing, No swelling Integumentary: Pressure ulcer, Other (sacral) Neurological: Other (angry affect, refusal of nursing assistance, position changes, etc) Lymphatics: No axilla or inguinal lymphadenopathy Urinary: Urostomy External genitalia: Deferred Rectal: Deferred Other Physical/Emotional Findings: Contemplating hospice Assessment And Plan - Plan Physical Examination - Vital Signs reviewed - Studies Microbiology Data (last 24 hrs): 12/20/23 02:00 Blood - Blood Aerobic Blood Culture - Final Enterococcus Faecalis 12/20/23 02:00 Blood - Blood Blood Culture Gram Stain - Final 12/20/23 02:00 Blood - Blood Anaerobic Blood Culture - Final Enterococcus Faecalis 12/20/23 02:00 Blood - Blood Gram Stain - Final 12/20/23 01:30 Blood - Blood Aerobic Blood Culture - Final Enterococcus Faecalis 12/20/23 01:30 Blood - Blood Blood Culture Gram Stain - Final 12/20/23 01:30 Blood - Blood Anaerobic Blood Culture - Final Enterococcus Faecalis 12/20/23 01:30 Blood - Blood Gram Stain - Final Assessment and Plan - Plan Symptomatic anemia: Metastatic stage IV colon cancer with liver mets history of colon cancer: Status post colostomy creation. Deemed due to GI loss secondary to cancer of the colon among other issue. Blood product transfusion has been started. Will keep hemoglobin above 7.0. Trend H&H, patient received 2 units of packed red blood cells hemoglobin Follow clinical symptomatology Hyperkalemia improved Nephrology following Acute renal failure acute kidney injury on chronic kidney disease: Elevated creatinine of 2.59 - 2.2 on 12/25/23 but BUN remains 110 Patient baseline creatinine is about 2.3. Will continue gentle hydration. Nephrology consult Acute on chronic heart failure Pulmonary hypertension Elevated BNP [id number] Echo COMMENTS: 1. SEVERE ENLARGED LEFT VENTRICLE, SEVERELY REDUCED LEFT VENTRICULAR FUNCTION, EJECTION FRACTION 5-10%, SEVERE GLOBAL HYPOKINESIS 2. MODERATELY REDUCED RIGHT VENTRICULAR FUNCTION 3. SEVERE SECONDARY MITRAL REGURGITATION DUE TO POOR LEAFLETS COAPTATION 4. MODERATE TRICUSPID REGURGITATION, RIGHT VENTRICULAR SYSTOLIC PRESSURE 40-45 mmHg (MODERATE PULMONARY HYPERTENSION). 5. SEVERE ENLAGED LEFT ATRIUM 6. INFERIOR VENA CAVA NORAML, COLLAPSABLE Cardiology recommendation advise to start patient on lasix 20 mg po BID add coreg 3.125 mg po BID if BP can tolerate that. Severe protein malnutrition Albumin 1.7 Dietitian consult Total care with transfers Nepro protein shakes 3 times daily added Anemia microcytic improved Hemoglobin 9.9 ->10.1 Trend H&H Sacral wound: air mattress Turn q 2h 12/25/23 on Day 3/14 Vancomycin, and Day 414 Merrem, Blood cultures re-drawn today Prophylaxis: SCDs for DVT prophylaxis due to severe anemia CODE STATUS: Full code-discussed with patient and family patient request to be full code alert and oriented x 3, consents to hospice eval 12/25/23. Disposition: We will treat his severe anemia with blood product transfusion and he will be discharged back to [facility]. Discharge Plan: Longterm - Code Status/Comfort Care Code Status: Full Code Critical Care: No Time Spent Managing PTS Care (In Minutes): 35 Discharge Plan: Longterm Plan to discharge in: 48 Hours
[2023-12-25] MEDS: FENTANYL 25 MCG/PATCH TD ONE (17:42)
[2023-12-25] MEDS: HYDROMORPHONE HCL 0.5 MG/0.5 ML INJ IV ONE (17:54)
[2023-12-26] MEDS: VANCOMYCIN 1.25 GM in NA CHLORIDE 0.9% 250 ML IVPB SCH (00:06)
[2023-12-26 06:04] VITALS: BP 120/88
[2023-12-26 06:05] VITALS: TEMP 97.5
--- NOTE | 2023-12-26 08:06 | P.DS ---
Admission Date: 12/21/23 Discharge Date: 12/26/23 Disposition: HOSPICE-MEDICAL FACILITY Discharge Condition: FAIR Reason for Admission: Anemia, sacral wound Brief History of Present Illness: 58-year-old male patient with medical history significant for hypertension, history of colon cancer on chemotherapy presented to the ED due to worsening weakness also found to have severe anemia. Hemoglobin was 6.4. He was started on blood product transfusion and was admitted for supportive care for administration of blood products. He denied overt episode of nausea, vomiting, diarrhea, abdominal pain. Mr. Young Hospital course was complicated by ESBL urinary tract infection on Merrem (day 6), sacral wounds and E faecalis bacteremia on Vancomycin (day 5). Mr. Young has been resistant to offloading, position change, air mattress. Unfortunately, his colon cancer is metastatic with little treatment options remaining. He has decided he would rather return to his long-term and asked for hospice services. Hospital Course: SW arranging Hospice services at pt's long-term Vital Signs/Physical Exam: Temp Pulse Resp BP Pulse Ox 97.5 F 106 H 18 120/88 96 12/26/23 04:00 12/26/23 05:42 12/26/23 06:12 12/26/23 05:42 12/26/23 06:12 General: Alert, Oriented x3, Other (uncomfortable) HEENT: Atraumatic, Normocephalic Neck: Supple Respiratory: Normal air movement Cardiovascular: Normal pulses, Regular rate/rhythm, Systolic murmur Capillary refill: <2 Seconds Gastrointestinal: Other (bilateral ostomy) Musculoskeletal: No clubbing, No swelling Integumentary: Skin breakdown, Pressure ulcer, Other (sacral) Neurological: Normal speech Lymphatics: No axilla or inguinal lymphadenopathy Urinary: Urostomy, Other (bilateral) External genitalia: Deferred Rectal: Deferred Other Physical/Emotional Findings: accepting outpatient hospice Laboratory Data at Discharge: WBC 10.10 thou/uL (4.3-10.9) 12/25/23 09:09 Hgb 10.8 g/dL (13.6-17.9) L 12/25/23 09:09 Hct 32.4 % (39.6-49.0) L 12/25/23 09:09 Plt Count 181 thou/uL (152-406) 12/25/23 09:09 PT 15.1 SECONDS (9.5-12.5) H 12/20/23 01:30 INR 1.39 12/20/23 01:30 APTT 30.0 SECONDS (24.3-36.9) 12/20/23 01:30 Sodium 145 mEq/L (136-145) 12/25/23 09:09 Potassium 4.9 mEq/L (3.5-5.1) 12/25/23 09:09 BUN 110 mg/dL (7-18) H 12/25/23 09:09 Creatinine 2.20 mg/dL (0.70-1.30) H 12/25/23 09:09 Glucose 116 mg/dL (74-106) H 12/25/23 09:09 Uric Acid 7.5 mg/dL (3.5-7.2) H 12/23/23 03:48 Magnesium 1.8 mg/dL (1.6-2.4) 12/20/23 01:30 Total Bilirubin 0.4 mg/dL (0.2-1.0) 12/20/23 01:30 AST 35 U/L (15-37) 12/20/23 01:30 ALT 13 U/L (16-61) L 12/20/23 01:30 Alkaline Phosphatase 167 U/L (45-117) H 12/20/23 01:30 Lipase 34 U/L (13-75) 12/20/23 01:30 Home Medications: Polyethylene Glycol 3350 [Miralax] 17 gm PO DAILY #30 packet 08/31/23 Allopurinol 100 mg PO DAILY 12/22/23 Furosemide [Lasix*] 40 mg PO DAILY 12/22/23 Megestrol [Megace*] 20 mg PO DAILY 12/22/23 Metoprolol Tartrate [Lopressor*] 12.5 mg PO BID 12/22/23 Trifluridine/Tipiracil HCl [Lonsurf 20 mg-8.19 mg Tablet] 1 each PO 12/22/23 Diet: Regular Activity: Ad bj Followup: SHADIA RENO [Primary Care Provider] -
[2023-12-26 10:25] VITALS: O2SAT 99
[2023-12-26] MEDS: HYDROMORPHONE HCL 1 MG/ML INJ IV ONE (10:43)
[2023-12-26] MEDS: HEPARIN 500 UNIT/5 ML SYR IV ONE (11:47)
== END 2023-12-26 12:42 | disposition hospice, inpatient (51) | DRG 374 ==
LOC: ER 01:03 → ERHOLD 05:31 → 2ND 11:58 → OBSVTOIN 12-21 12:12 → 4TH 12-21 15:10
PROVIDERS: ADMIT Internal Medicine Nephrology; ATTEND Hospitalist
PROC: 30233N1 Transfusion of Nonautologous Red Blood Cells into Peripheral Vein, Percutaneous Approach (ICD-10-PCS; principal; 2023-12-20)
PROC: 4A033R1 Measurement of Arterial Saturation, Peripheral, Percutaneous Approach (ICD-10-PCS; 2023-12-21)
DX: C78.5 Secondary malignant neoplasm of large intestine and rectum (principal); E43 Unspecified severe protein-calorie malnutrition; I50.43 Acute on chronic combined systolic (congestive) and diastolic (congestive) heart failure; C78.00 Secondary malignant neoplasm of unspecified lung; C78.7 Secondary malignant neoplasm of liver and intrahepatic bile duct; I13.0 Hypertensive heart and chronic kidney disease with heart failure and stage 1 through stage 4 chronic kidney disease, or unspecified chronic kidney disease; N17.9 Acute kidney failure, unspecified; R64 Cachexia; I42.9 Cardiomyopathy, unspecified; K92.2 Gastrointestinal hemorrhage, unspecified; N30.00 Acute cystitis without hematuria; Z16.12 Extended spectrum beta lactamase (ESBL) resistance; R78.81 Bacteremia; D63.0 Anemia in neoplastic disease; N18.30 Chronic kidney disease, stage 3 unspecified; E78.5 Hyperlipidemia, unspecified; I27.20 Pulmonary hypertension, unspecified; E88.09 Other disorders of plasma-protein metabolism, not elsewhere classified; I34.0 Nonrheumatic mitral (valve) insufficiency; E87.5 Hyperkalemia; M10.9 Gout, unspecified; B95.2 Enterococcus as the cause of diseases classified elsewhere; Z93.3 Colostomy status; Z93.6 Other artificial openings of urinary tract status; Z51.5 Encounter for palliative care; Z79.01 Long term (current) use of anticoagulants; Z68.23 Body mass index [BMI] 23.0-23.9, adult; Z90.49 Acquired absence of other specified parts of digestive tract; Z79.02 Long term (current) use of antithrombotics/antiplatelets; Z86.718 Personal history of other venous thrombosis and embolism; Z79.899 Other long term (current) drug therapy; Z85.048 Personal history of other malignant neoplasm of rectum, rectosigmoid junction, and anus; Z85.038 Personal history of other malignant neoplasm of large intestine; Z91.199 Patient's noncompliance with other medical treatment and regimen due to unspecified reason
CPT/HCPCS: 36415; 36430; 36600; 71250; 74176; 80048; 80076; 80202; 81001; 82550; 82805; 83690; 83735; 83880; 84145; 84484; 84550; 85025; 85610; 85730; 86850; 86900; 86901; 86920; 87040; 87077; 87086; 87088; 87186; 87205; 93005; 93306; 96365; 96367; 96374; 96375; 99284; 99285; G0378; J1160; J1170; J1200; J1642; J1940; J2185; J2270; J2405; J2543; J2930; J7030; J7040; J7050; J7613; P9016; P9047